=== PATIENT | female | born 1950 | race Caucasian/White ===

== ENCOUNTER 2019-10-25 14:29 | Outpatient (RCR) | payer MEDICARE, OTHER, SELFPAY ==
[2019-10-25 14:44] VITALS: BP 143/77; PULSE 87; RESP 18; BMI 29.2
[2019-10-25 17:12] LABS: Hematocrit 42.9 % (37-47); Hemoglobin 13.4 g/dL (12.0-15.0); Mean Corp Hgb Conc 31.2 g/dL (32-36); Mean Corpuscular Hgb 29.5 pg (27.0-32.0); Mean Corpuscular Volume 94.3 fL (81-99); Mean Platelet Vol. 8.8 fl (6.2-12.0); Platelet Count 329 K/mm3 (150-450); RBC Distribution Width CV 12.9 % (11.6-14.6); RBC Distribution Width SD 44.7 fl (35.1-43.9); Red Blood Count 4.55 M/mm3 (4.2-5.4); White Blood Count 8.5 K/mm3 (4.4-11.0)
[2019-10-25 18:17] LABS: Anion Gap 5 (5-15); BUN 13 mg/dL (7-18); Calcium,Total 9.5 mg/dL (8.5-10.1); Chloride 106 mmol/L (98-107); Creatinine, Serum 0.81 mg/dL (0.55-1.02); EST Glomerular Filtration Rate 74 mL/min (>60); Est Glom Filt Rate - Afr Amer 90 mL/min (>60); Estimated Creatinine Clearance 63.86 ml/min; Glucose 95 mg/dL (74-106); Potassium 3.7 mmol/L (3.5-5.1); Prealbumin 19.8 mg/dL (20.0-40.0); Sodium Level 142 mmol/L (136-145)
[2019-10-25 19:51] LABS: M R Staph aureus DNA By PCR Negative (Negative); Probe Check PASS; Specimen Processing Control PASS; Staph aureus DNA By PCR NEGATIVE (Negative)
--- NOTE | 2019-10-25 22:08 | PCM.WC.HP ---
(1) Ulcer of left lower extremity with fat layer exposed Status: Chronic Code(s): L97.922 - Non-pressure chronic ulcer of unspecified part of left lower leg with fat layer exposed (2) Delayed wound healing Status: Chronic Code(s): T14.8XXD - Other injury of unspecified body region, subsequent encounter (3) Venous insufficiency Status: Suspected Code(s): I87.2 - Venous insufficiency (chronic) (peripheral) (4) Other specified peripheral vascular diseases Status: Suspected Code(s): I73.89 - Other specified peripheral vascular diseases (5) Left leg pain Status: Chronic Code(s): M79.605 - Pain in left leg (6) Cellulitis of left leg Status: Acute Code(s): L03.116 - Cellulitis of left lower limb (7) Leg edema, left Status: Chronic Code(s): R60.0 - Localized edema History of Present Illness Date of Service: 10/25/19 Chief Complaint: Left leg ulcer History of Wound: This 69-year-old female with significant past medical history of polio with several medical sequela sustained a left leg ulcer that dates back to 2015. She has had periods of intermittent healing and this has returned on numerous occasions. This last ulcer recurrence dates back to this summer approximately May 2018. She denies trauma. She admits she is chronic swelling and pain with leg elevation. She denies consistent leg claudication symptoms however admits she does not walk a regular standard amount. She was recently seen by another physician for potential cellulitis. She was started on ciprofloxacin and redness and edema has reduced. She denies fever, chill, nausea, vomiting. She relates she has resolved odor. Her ulcer is very painful and is rated as moderate. She denies having a significant past medical history of diabetes. Past Medical History Past Medical History: Chronic Problems Ulcer of left lower extremity with fat layer exposed (Chronic) Delayed wound healing (Chronic) Left leg pain (Chronic) Leg edema, left (Chronic) Surgical History: - - polio Lives: With Family Smoking Status: Never smoker Review of Systems Constitutional: Denies: Chills, Fever HEENT: Denies: Sore Throat Cardiovascular: Reports: - - Leg edema. Denies: Chest Pain, Claudication, Orthopnea Respiratory: Denies: Cough Gastrointestinal: Denies: Nausea, Vomiting Musculoskeletal: Reports: Leg Pain. Denies: Joint Tenderness Skin: Reports: Skin Changes, Wounds Neurological: Reports: Incoordination, - - Weakness and use of wheelchair Psychiatric: Reports: Anxiety - Physical Exam Vital Signs Pulse Resp BP 87 18 143/77 H 10/25/19 14:44 10/25/19 14:44 10/25/19 14:44 General: Alert, Oriented x3, Cooperative, No apparent distress HEENT: Atraumatic Extremities: No cyanosis, Capillary Refill Less than 3 Seconds, No Calf Tenderness - Negative Kishor and Hughes signs bilateral, Diminished Peripheral Pulses, Edema - Nonpitting bilateral lower extremities Skin: Ulcer/ Wound - There is no purulence on expression to the left leg. There is no erythema. There is peter-ulcer inflammation, moist and macerated tissue and fibrous base with scant granulation tissue. There is no exposed bone or tendon or fascia. Her skin in general is atrophic, hairless, and hyperpigmented Wound Measurements and Assessment WC - Nurse 1 - General Ulcer Measurement Start: 10/25/19 14:44 Freq: Status: Active Protocol: Activity Type Activity Date Activity User E-Sign Co-Sign Detail Recorded Client Recorded Date Recorded By Document 10/25/19 14:44 [id number] 10/25/19 15:13 BS 10/25/19 14:44 Wound Center Nurse 1 [Ulcer Assessment] #1 LLE -Combined with other wound No -Current Size (cm) - Length 12.5 -Current Size (cm) - Width 11.5 -Current Size (cm) - Depth 0.4 -Total Square Cm 143.75 -Date of Last Picture (Recall this 10/25/19 field) -Photo Taken Yes -Tunneling No -Classification - Thickness Full Thickness without Exposed Support Structure -Exudate Amt Medium -Exudate Type Purulent -Granulation Quality [place] -Texture (Peter-wound Skin Appearance) Assessed, Localized Edema -Moisture (Peter-wound Skin Appearance Assessed, ) Maceration, Weeping -Temperature (Peter-wound Skin Cool/Cold Appearance) -Tenderness on Palpation (Peter-wound No Skin Appearance) -Ulcer Cleansing Rinsed/ Irrigated with Saline -Foul Odor after Cleansing No -Anesthetic Used 4% Lidocaine Solution [Edema Assessment] -Lower Limb Edema Present Yes -Point of measurement (cm from the 32.5 medial instep) -Point of Measurement (cm from the 24.5 medial instep) -Point of measurement (cm from the 36.5 medial instep) -Point of Measurement (cm from the 23 medial instep) WC - Nurse 2 - General Ulcer CM Notes Start: 10/25/19 14:44 Freq: Status: Active Protocol: Activity Type Activity Date Activity User E-Sign Co-Sign Detail Recorded Client Recorded Date Recorded By Document 10/25/19 15:32 [id number] 10/25/19 15:45 10/25/19 15:32 Wound Center Nurse 2 [Procedure/Treatment] #1 LLE -Time 15:32 -Correct Patient Yes -Correct Side, Site, Position Yes -Correct Procedure Yes -Procedure Performed Yes -Type of Procedure Debridement -Clinical Debridement Subcutaneous -Post Debridement Size (cm) - Length 2.8 -Post Debridement Size (cm) - Width 1.8 -Post Debridement Size (cm) - Depth 0.3 -Total Square Cm 5.04 -Wound/Ulcer Outcome Not Healed -Ulcer Cleansing Rinsed/ Irrigated with Saline -Foul Odor after Cleansing No -Bioengineered Tissue No -Bleeding Controlled with Pressure -Offloading No -Treatment Response Procedure Tolerated Well [See Physician Procedure note for Specifics] Pain Scale: 0-10 Numeric [Pain] -Is Patient Pain Free? Yes Musculoskeletal: No Tenderness to Palpation of Joints or Extremities, Muscle Wasting, - - Compartments are soft to palpate bilateral lower extremities. Active range of motion ankles noted Neurological: Sensory exam intact to light touch and pain Psych/Mental Status: Normal Affect, Appropriate, Anxious Debridement Note Post-Debridement Measurements/Treatment WC - Nurse 2 - General Ulcer CM Notes Start: 10/25/19 14:44 Freq: Status: Active Protocol: Activity Type Activity Date Activity User E-Sign Co-Sign Detail Recorded Client Recorded Date Recorded By Document 10/25/19 15:32 [id number] 10/25/19 15:45 10/25/19 15:32 Wound Center Nurse 2 #1 LLE -Time 15:32 -Correct Patient Yes -Correct Side, Site, Position Yes -Correct Procedure Yes -Procedure Performed Yes -Type of Procedure Debridement -Clinical Debridement Subcutaneous -Post Debridement Size (cm) - Length 2.8 -Post Debridement Size (cm) - Width 1.8 -Post Debridement Size (cm) - Depth 0.3 -Total Square Cm 5.04 -Wound/Ulcer Outcome Not Healed -Ulcer Cleansing Rinsed/ Irrigated with Saline -Foul Odor after Cleansing No -Bioengineered Tissue No -Bleeding Controlled with Pressure -Offloading No -Treatment Response Procedure Tolerated Well Pain Scale: 0-10 Numeric Is Patient Pain Free? Yes Wound debrided: leg Laterality: Left Type of Debridement: Excisional debridement Anesthesia Used: 5% Lidocaine Gel Depth: in the subcutaneous layer Percentage of wound debrided: 100 Instrument Used: #15 blade Tissue Removed: fibrous, devitalized subcutaneous, biofilm, slough Severity: Fat Layer Exposed Amount of bleeding with debridement: Mild Bleeding Controlled with: Pressure Patient tolerated procedure well Assessment/Plan Assessment: Left leg ulcer with fat layer exposed and adjacent maceration. Cellulitis left leg appears to be improving per patient subjective report. Leg edema. Venous insufficiency suspected. Peripheral vascular disease suspected. Delayed healing. Malnutrition suspected Plan: I reviewed and discussed her case today. Debridement was performed as noted in the clinical panel. I recommended changing the dressing daily with hydrogel. This was applied with a secondary dressing as well. She is advised to wash the leg daily with antimicrobial soap. An updated wound culture was obtained and I will call her with results. She is advised to complete her course of ciprofloxacin which is scheduled to run out on Wednesday. I will call her prior to that time to inform her if a refill is necessary. She does have this refill available if needed. This was prescribed by her primary care physician. She was reassured no systemic signs of illness are noted. I recommend she proceed with work-up for both arterial and venous disease. Venous reflux evaluation test was ordered. She was advised to avoid idle sitting and standing and to elevate the limb to control edema. If she has continued pain particularly with leg elevation, I recommend she intermittently dangles the leg as well. I also recommend she proceeds with noninvasive arterial study. Very light compression of a Tubigrip was provided today for edema management and stronger compression will be considered after review her noninvasive vascular study results. I also recommend updated labs including CBC, CMP, and prealbumin to assess her current medical status. An order was provided today. To proceed with a proper control diet and nutrition supplementation to optimize healing. I answered all of her questions and explained the etiology of ulcer causes and the comprehensive wound healing plan. I recommend she returns on a weekly basis. The center will be closed several days next week due to holiday therefore she will return in 2 weeks. To call sooner if she has any questions or concerns.
== END 2019-11-07 23:59 ==
LOC: WC 14:29
PROVIDERS: Referring Provider Podiatrist; Visit Provider Podiatrist
DX: I73.89 Other specified peripheral vascular diseases (principal); I87.2 Venous insufficiency (chronic) (peripheral); L97.822 Non-pressure chronic ulcer of other part of left lower leg with fat layer exposed; M79.605 Pain in left leg; R60.0 Localized edema; Z86.12 Personal history of poliomyelitis
CPT/HCPCS: 11042; 36415; 80048; 84134; 85027; 87070; 87075; 87077; 87176; 87186; 87205; 87640; 99203; G0463

== ENCOUNTER 2019-11-22 16:15 | Outpatient (RCR) | payer MEDICARE, OTHER, SELFPAY ==
[2019-11-08 01:08] VITALS: BP 143/77; PULSE 87; RESP 18
[2019-11-10 13:12] VITALS: TEMP 37.7; BMI 29.2
--- NOTE | 2019-11-10 14:36 | PN.PCM_ITS ---
(1) Colonization status Status: Chronic Current Visit: Yes Code(s): Z22.9 - Carrier of infectious disease, unspecified (2) Ulcer of left lower extremity with fat layer exposed Status: Chronic Current Visit: Yes Code(s): L97.922 - Non-pressure chronic ulcer of unspecified part of left lower leg with fat layer exposed (3) Delayed wound healing Status: Chronic Current Visit: Yes Code(s): T14.8XXD - Other injury of unspecified body region, subsequent encounter (4) Venous insufficiency Status: Suspected Current Visit: Yes Code(s): I87.2 - Venous insufficiency (chronic) (peripheral) (5) Other specified peripheral vascular diseases Status: Suspected Current Visit: Yes Code(s): I73.89 - Other specified peripheral vascular diseases (6) Left leg pain Status: Chronic Current Visit: Yes Code(s): M79.605 - Pain in left leg Type of Wound Date of Service: 11/10/19 Chief Complaint: Left leg ulcer History of Wound: This 69-year-old female with significant past medical history of polio with several medical sequela sustained a left leg ulcer that dates back to 2016. She has had periods of intermittent healing and this has returned on numerous occasions. She relates continued ulcer pain and drainage. She has only wash this ulcer site with home soap. She denies completing the recommended artery or vein studies so far. Progress of Wound: stable - Physical Exam Vital Signs Temp Pulse Resp BP 99.8 F H 87 18 143/77 H 11/10/19 13:12 11/08/19 01:08 11/08/19 01:08 11/08/19 01:08 General: Alert, Oriented x3, Cooperative, No apparent distress Extremities: Capillary Refill Less than 3 Seconds, No Calf Tenderness - Negative Hughes and Kishor, Diminished Peripheral Pulses, Edema, Tenderness - Pain with ulcer manipulation. No bogginess or fluctuance Skin: Ulcer/ Wound - Fibrous tissue is decreased and there is sparse granulation tissue. Decreased maceration noted there is a large peripheral area of fibrous tissue with interspersed epithelialization. The peripheral skin is hairless, atrophic, and hypopigmented. There is no sb erythema. Wound Measurements and Assessment WC - Nurse 1 - General Ulcer Measurement Start: 11/10/19 13:12 Freq: Status: Active Protocol: Activity Type Activity Date Activity User E-Sign Co-Sign Detail Recorded Client Recorded Date Recorded By Document 11/10/19 13:12 [facility] [id number] 11/10/19 13:24 [facility] 11/10/19 13:12 Wound Center Nurse 1 [Ulcer Assessment] #1 LLE -Combined with other wound No -Current Size (cm) - Length 12.4 -Current Size (cm) - Width 11.2 -Current Size (cm) - Depth 0.2 -Total Square Cm 138.88 -Photo Taken No -Epithelialization None Present -Tunneling No -Undermining/Tunneling No -Circular Undermining No -Exudate Amt Small -Wound Margin Flat & Intact -Granulation Amt Small (1-33%) -Granulation Quality Red -Slough/Fibrin Yes -Necrosis Amt Large (67-100%) -Necrotic Tissue Type Adherent Slough -Texture (Susana-wound Skin Appearance) Assessed, Scarring -Moisture (Susana-wound Skin Appearance Assessed ) -Color (Susana-wound Skin Appearance) Assessed, Erythema -Temperature (Susana-wound Skin No Abnormality Appearance) (Pt Warm) -Tenderness on Palpation (Susana-wound Yes Skin Appearance) -Ulcer Cleansing soapy water -Foul Odor after Cleansing No -Anesthetic Used 4% Lidocaine Solution [Edema Assessment] -Lower Limb Edema Present Yes -Left Calf (cm) 35.1 -Left Ankle (cm) 21 WC - Nurse 2 - General Ulcer CM Notes Start: 11/10/19 13:12 Freq: Status: Active Protocol: Activity Type Activity Date Activity User E-Sign Co-Sign Detail Recorded Client Recorded Date Recorded By Document 11/10/19 13:46 [id number] 11/10/19 13:47 11/10/19 13:46 Wound Center Nurse 2 [Procedure/Treatment] #1 LLE -Time 13:46 -Correct Patient Yes -Correct Side, Site, Position Yes -Correct Procedure Yes -Procedure Performed Yes -Type of Procedure Debridement -Clinical Debridement Subcutaneous -Post Debridement Size (cm) - Length 12.5 -Post Debridement Size (cm) - Width 11.2 -Post Debridement Size (cm) - Depth 0.2 -Total Square Cm 140.00 -Wound/Ulcer Outcome Not Healed -Ulcer Cleansing Rinsed/ Irrigated with Saline -Foul Odor after Cleansing No -Bioengineered Tissue No -Bleeding Controlled with Pressure -Offloading No -Treatment Response Procedure Tolerated Well [See Physician Procedure note for Specifics] Pain Scale: 0-10 Numeric [Pain] -Is Patient Pain Free? Yes Musculoskeletal: No Tenderness to Palpation of Joints or Extremities, Muscle Wasting Neurological: Sensory exam intact to light touch and pain - Hypersensitive to touch Psych/Mental Status: Normal Affect, Appropriate Debridement Note Post-Debridement Measurements/Treatment WC - Nurse 2 - General Ulcer CM Notes Start: 11/10/19 13:12 Freq: Status: Active Protocol: Activity Type Activity Date Activity User E-Sign Co-Sign Detail Recorded Client Recorded Date Recorded By Document 11/10/19 13:46 [id number] 11/10/19 13:47 11/10/19 13:46 Wound Center Nurse 2 #1 LLE -Time 13:46 -Correct Patient Yes -Correct Side, Site, Position Yes -Correct Procedure Yes -Procedure Performed Yes -Type of Procedure Debridement -Clinical Debridement Subcutaneous -Post Debridement Size (cm) - Length 12.5 -Post Debridement Size (cm) - Width 11.2 -Post Debridement Size (cm) - Depth 0.2 -Total Square Cm 140.00 -Wound/Ulcer Outcome Not Healed -Ulcer Cleansing Rinsed/ Irrigated with Saline -Foul Odor after Cleansing No -Bioengineered Tissue No -Bleeding Controlled with Pressure -Offloading No -Treatment Response Procedure Tolerated Well Pain Scale: 0-10 Numeric Is Patient Pain Free? Yes Wound debrided: anterior leg Laterality: Left Type of Debridement: Excisional debridement Anesthesia Used: 5% Lidocaine Gel Depth: in the subcutaneous layer Percentage of wound debrided: 100 Instrument Used: #15 blade Tissue Removed: fibrous, devitalized subcutaneous, biofilm, slough Severity: Fat Layer Exposed Amount of bleeding with debridement: Mild Bleeding Controlled with: Pressure Patient tolerated procedure well Assessment/Plan Active Problems Ulcer of left lower extremity with fat layer exposed (Chronic) Delayed wound healing (Chronic) Left leg pain (Chronic) Colonization status (Chronic) Assessment: Left leg ulcer with fat layer exposed and adjacent maceration. Bacterial contamination. Leg edema. Venous insufficiency suspected. Peripheral vascular disease suspected. Delayed healing. Malnutrition suspected Plan: I reviewed and discussed her case today. Debridement was performed as noted in the clinical panel. I recommended changing the dressing daily with hydrogel and adaptic. This was applied with a secondary dressing as well. She is advised to wash the leg daily with antimicrobial soap including medical grade hibiblens. An updated wound culture was obtained and she demonstrates growth of bacteria that is not a part of the normal. I do not recommend antibiotic at this time and wants addressed this locally with antimicrobial soap. She monitor for bacterial or systemic signs of illness progression. She has completed her course of ciprofloxacin. She was reassured no systemic signs of illness are noted. I recommend she proceed with work-up for both arterial and venous disease. Venous reflux evaluation test was ordered. She was advised to avoid idle sitting and standing and to elevate the limb to control edema. If she has continued pain particularly with leg elevation, I recommend she intermittently dangles the leg as well. I also recommend she proceeds with noninvasive arterial study. Very light compression of a Tubigrip was provided today for edema management and stronger compression will be considered after review her noninvasive vascular study results. I also recommend updated labs including CBC, CMP, and prealbumin to assess her current medical status. An order was provided previously and she was advised to obtain. To proceed with a proper control diet and nutrition supplementation to optimize healing. I answered all of her questions and explained the etiology of ulcer causes and the comprehensive wound healing plan. I recommend she returns on a weekly basis. I answered her questions.
--- NOTE | 2019-11-15 13:06 | ART_ITS ---
Reason For Study: ULCER Procedure A bilateral lower extremity continuous wave Doppler with analog waveform analysis,segmental pressures,and ankle brachial indexes without exercise. Left Segmental Pressures Left brachial= 140mmHg. Left thigh = 90mmHg. Left calf = 93mmHg. Left posterior tibial artery = 72mmHg. Left dorsalis pedis artery = 64mmHg. Left digit = 60 mmHg. The left dorsalis pedis waveforms are monophasic. The left posterior tibial artery waveforms are monophasic. Right Segmental Pressures Right brachial= 134mmHg. Right thigh = 83mmHg. Right calf = 80mmHg. Right posterior tibial artery = 71mmHg. Right dorsalis pedis artery = 82mmHg. Right digit = 60 mmHg. The right dorsalis pedis waveforms are monophasic. The right posterior tibial artery waveforms are monophasic. Indices The right ankle brachial index by the dorsalis pedis is .59. The right ankle brachial index by the posterior tibial artery is .51. The right digital-brachial index is .43. The left ankle brachial index by the dorsalis pedis is .46. The left ankle brachial index by the posterior tibial artery is .51. The left digital-brachial index is .43. Interpretation Summary Monophasic Doppler waveforms are noted at ankle level bilaterally. Pulse-volume recording waveform amplitudes are diminished at calf, ankle, and digital level on the right, and digital level on the left. Resting ankle-brachial indices are moderately diminished bilaterally. Digital-brachial indices are moderately diminished bilaterally. 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 Ordering Physician: Abby Cooper Referring Physician: Abby Cooper Performed By: ANOOP DOTY RDCS
--- NOTE | 2019-11-15 13:06 | VDLE_ITS ---
Reason For Study: ulcer RIGHT LEFT CFV is compressible, spontaneous, phasic, CFV is compressible, spontaneous, phasic, competent and demonstrates normal competent, and demonstrates normal augmentation. augmentation. FV is compressible, spontaneous, phasic, FV is compressible, spontaneous, phasic, competent and demonstrates normal competent and demonstrates normal augmentation. augmentation. POP V is compressible, spontaneous, phasic, POP V is compressible, spontaneous, phasic, competent and demonstrates normal competent and demonstrates normal augmentation. augmentation. T/P Trunk is compressible. T/P Trunk is compressible. PTV is compressible. PTV is compressible. RT PerV is compressible. LT PerV is compressible. Rt SSV is too small to evaluate. Left SSV is too small to evaluate. SFJ is competent and measures .75 x .87 cm. SFJ is competent and measures 1.0 x 1.1 cm. GSV above knee is competent. GSV is competent throughout. GSV at knee measures .3 x .35 cm. GSV below knee is INCOMPETENT for greater than 0.5 seconds. Procedure Exam performed in department. 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 A preliminary report was called and/or faxed to [facility]. Interpretation Summary Deep veins of the lower extremities are bilaterally patent and compressible segmentally. There is no evidence of deep vein thrombosis on either side. Valvular competence appears intact within the proximal deep venous systems bilaterally. The great saphenous veins appear bilaterally patent and compressible segmentally. Sapheno-femoral junctions are bilaterally competent . The right great saphenous vein appears competent above the knee. The right great saphenous vein appears incompetent below the knee. The left great saphenous vein appears segmentally competent. Small saphenous veins are too small to assess bilaterally. Ordering Physician: Abby Cooper Referring Physician: Abby Cooper Performed By: Dee France, YENICS, RVT
[2019-11-15 15:27] VITALS: BP 139/84; PULSE 88; RESP 18; TEMP 37.4; BMI 29.2
--- NOTE | 2019-11-15 16:25 | PCM.WC.PN ---
(1) Colonization status Status: Chronic Current Visit: Yes Code(s): Z22.9 - Carrier of infectious disease, unspecified (2) Ulcer of left lower extremity with fat layer exposed Status: Chronic Current Visit: Yes Code(s): L97.922 - Non-pressure chronic ulcer of unspecified part of left lower leg with fat layer exposed (3) Delayed wound healing Status: Chronic Current Visit: Yes Code(s): T14.8XXD - Other injury of unspecified body region, subsequent encounter (4) Venous insufficiency Status: Chronic Current Visit: Yes Code(s): I87.2 - Venous insufficiency (chronic) (peripheral) Comment: left Greater saphenous vein (5) Other specified peripheral vascular diseases Status: Chronic Current Visit: Yes Code(s): I73.89 - Other specified peripheral vascular diseases Comment: bilateral lower extremity (6) Left leg pain Status: Chronic Current Visit: Yes Code(s): M79.605 - Pain in left leg Type of Wound Date of Service: 11/15/19 Chief Complaint: Left leg ulcer History of Wound: This 69-year-old female with significant past medical history of polio with several medical sequela sustained a left leg ulcer that dates back to 2016. She has had periods of intermittent healing and this has returned on numerous occasions. She relates continued ulcer pain and drainage. She has only wash this ulcer site with hibiclens soap as advised. She had her arterial and venous studies performed today and would like to review the results. She has significant pain to her leg this is reported as a 5 out of 10 on a regular basis and even more now after debridement. Dangling her leg does temporarily get rid of the pain. She does have ongoing fluctuating swelling that is relieved by periodic elevation of the leg. She asked if she can discontinue her compression garments due to severe pain. She is with her sister today. Progress of Wound: stable - Physical Exam Vital Signs Temp Pulse Resp BP 99.3 F H 88 18 139/84 H 11/15/19 15:27 11/15/19 15:27 11/15/19 15:27 11/15/19 15:27 General: Alert, Cooperative HEENT: Atraumatic Extremities: No cyanosis, Capillary Refill Less than 3 Seconds, No Calf Tenderness - Negative Hughes sign bilateral, Diminished Peripheral Pulses, Edema Skin: Ulcer/ Wound - No purulence, erythema, streaking, odor, infection. No deep bone or muscle. There is some deeper tendon sheath not exposed in the wound bed. There is decreased maceration noted and there is continued fibrous tissue noted as well. Her skin in general is hairless, atrophic, and hyperpigmented Wound Measurements and Assessment WC - Nurse 1 - General Ulcer Measurement Start: 11/10/19 13:12 Freq: Status: Active Protocol: Activity Type Activity Date Activity User E-Sign Co-Sign Detail Recorded Client Recorded Date Recorded By Document 11/15/19 15:27 RB [id number] 11/15/19 15:34 RB 11/15/19 15:27 Wound Center Nurse 1 [Ulcer Assessment] #1 LLE -Combined with other wound No -Current Size (cm) - Length 11 -Current Size (cm) - Width 6.5 -Current Size (cm) - Depth 0.2 -Total Square Cm 71.5 -Epithelialization None Present -Tunneling No -Undermining/Tunneling No -Circular Undermining No -Exudate Amt Medium -Exudate Type Serosanguineous -Wound Margin Flat & Intact -Granulation Amt Medium (34-66%) -Granulation Quality [place] -Slough/Fibrin Yes -Necrosis Amt Small (1-33%) -Necrotic Tissue Type Adherent Slough -Structure Exposed N/A -Texture (Peter-wound Skin Appearance) Assessed, Scarring -Moisture (Peter-wound Skin Appearance Assessed ) -Color (Peter-wound Skin Appearance) Assessed -Temperature (Peter-wound Skin No Abnormality Appearance) (Pt Warm) -Ulcer Cleansing Rinsed/ Irrigated with Saline -Foul Odor after Cleansing No -Anesthetic Used 4% Lidocaine Solution [Edema Assessment] -Lower Limb Edema Present Yes -Left Calf (cm) 34.5 -Left Ankle (cm) 21.5 WC - Nurse 2 - General Ulcer CM Notes Start: 11/10/19 13:12 Freq: Status: Active Protocol: Activity Type Activity Date Activity User E-Sign Co-Sign Detail Recorded Client Recorded Date Recorded By Document 11/15/19 15:43 FELISHA [id number] 11/15/19 15:47 FELISHA 11/15/19 15:43 Wound Center Nurse 2 [Procedure/Treatment] #1 LLE -Time 15:46 -Correct Patient Yes -Correct Side, Site, Position Yes -Correct Procedure Yes -Procedure Performed Yes -Type of Procedure Debridement -Clinical Debridement Subcutaneous -Post Debridement Size (cm) - Length 11 -Post Debridement Size (cm) - Width 6.6 -Post Debridement Size (cm) - Depth 0.2 -Total Square Cm 72.6 -Wound/Ulcer Outcome Not Healed -Ulcer Cleansing Rinsed/ Irrigated with Saline -Foul Odor after Cleansing No -Bioengineered Tissue No -Bleeding Controlled with Pressure -Offloading No -Treatment Response Procedure Tolerated Well [See Physician Procedure note for Specifics] Pain Scale: 0-10 Numeric [Pain] -Is Patient Pain Free? Yes Musculoskeletal: No Tenderness to Palpation of Joints or Extremities, Muscle Wasting, - - Compartment soft to palpate left lower extremity Neurological: Sensory exam intact to light touch and pain Psych/Mental Status: Normal Affect, Appropriate Debridement Note Post-Debridement Measurements/Treatment WC - Nurse 2 - General Ulcer CM Notes Start: 11/10/19 13:12 Freq: Status: Active Protocol: Activity Type Activity Date Activity User E-Sign Co-Sign Detail Recorded Client Recorded Date Recorded By Document 11/10/19 13:46 [id number] 11/10/19 13:47 Document 11/15/19 15:43 [id number] 11/15/19 15:47 11/10/19 11/15/19 13:46 15:43 Wound Center Nurse 2 #1 LLE -Time 13:46 15:46 -Correct Patient Yes Yes -Correct Side, Site, Position Yes Yes -Correct Procedure Yes Yes -Procedure Performed Yes Yes -Type of Procedure Debridement Debridement -Clinical Debridement Subcutaneous Subcutaneous -Post Debridement Size (cm) - Length 12.5 11 -Post Debridement Size (cm) - Width 11.2 6.6 -Post Debridement Size (cm) - Depth 0.2 0.2 -Total Square Cm 140.00 72.6 -Wound/Ulcer Outcome Not Healed Not Healed -Ulcer Cleansing Rinsed/ Rinsed/ Irrigated with Irrigated with Saline Saline -Foul Odor after Cleansing No No -Bioengineered Tissue No No -Bleeding Controlled with Pressure Pressure -Offloading No No -Treatment Response Procedure Procedure Tolerated Well Tolerated Well Pain Scale: 0-10 Numeric Is Patient Pain Free? Yes Yes Wound debrided: leg anterior Laterality: Left Type of Debridement: Excisional debridement Anesthesia Used: 5% Lidocaine Gel Depth: in the subcutaneous layer Percentage of wound debrided: 100 Instrument Used: #15 blade Tissue Removed: fibrous, devitalized subcutaneous, biofilm, slough Severity: Fat Layer Exposed Amount of bleeding with debridement: Mild Bleeding Controlled with: Pressure Patient tolerated procedure well Assessment/Plan Active Problems Ulcer of left lower extremity with fat layer exposed (Chronic) Delayed wound healing (Chronic) Venous insufficiency (Chronic) left Greater saphenous vein Other specified peripheral vascular diseases (Chronic) bilateral lower extremity Left leg pain (Chronic) Colonization status (Chronic) Assessment: Left leg ulcer with fat layer exposed and adjacent maceration. Bacterial contamination is resolving. Leg edema. Venous insufficiency. Peripheral vascular disease. Delayed healing. Malnutrition suspected Plan: I reviewed and discussed her case today. Debridement was performed as noted in the clinical panel. I recommended changing the dressing daily with hydrogel and adaptic. This was applied with a secondary dressing as well. She is advised to wash the leg daily with antimicrobial soap including medical grade hibiblens. She is doing well with this so far. An updated wound culture was obtained and she demonstrates growth of bacteria that is not a part of the normal. I do not recommend antibiotic at this time and wants addressed this locally with antimicrobial soap. She monitor for bacterial or systemic signs of illness progression. She has completed her course of ciprofloxacin. She was reassured no systemic signs of illness are noted. I recommend she proceed with work-up for both arterial and venous disease. Venous reflux evaluation test was ordered. She was advised to avoid idle sitting and standing and to elevate the limb to control edema. If she has continued pain particularly with leg elevation, I recommend she intermittently dangles the leg as well. I also recommend she proceeds with noninvasive arterial study. Very light compression of a Tubigrip was provided today for edema management and stronger compression will be considered after review her noninvasive vascular study results. It appears she does have some mild form of venous insufficiency after reviewing her venous Doppler exam. She does also have significant bilateral lower extremity monophasic waveforms with ABIs of around 0.5 bilaterally. I recommend a vascular specialist referral to Dr. Morel in this will be provided today. I also recommend updated labs including CBC, CMP, and prealbumin to assess her current medical status. An order was provided previously and she was advised to obtain. To proceed with a proper control diet and nutrition supplementation to optimize healing. I answered all of her questions and explained the etiology of ulcer causes and the comprehensive wound healing plan. Her pain was additionally addressed by providing a prescription for topical 4% lidocaine cream for application peter-ulcer site and not directly in the ulcer site after dressing changes for this is when her pain is worse. I recommend she returns on a weekly basis. I answered her questions. . 2019 quality measures reviewed as the following: Reviewed today-pain level was confirmed in follow-up plan was documented, medication and allergy reconciliation was performed. Reviewed 11/15/2019-pneumonia vaccination was confirmed, influenza immunization was confirmed for this current season in July 2019, advanced care plan was confirmed with living will, she is a current tobacco non user, her blood pressure is elevated over 120/80 and I recommend she follows up with her primary care physician for medical management of this. Diet and exercise benefits were also discussed for educational purposes to optimize her wound healing and medical management.
[2019-11-22 16:22] VITALS: RESP 16; TEMP 37.4; BMI 29.2
--- NOTE | 2019-11-22 16:46 | PCM.WC.PN ---
(1) Colonization status Status: Chronic Code(s): Z22.9 - Carrier of infectious disease, unspecified (2) Ulcer of left lower extremity with fat layer exposed Status: Chronic Code(s): L97.922 - Non-pressure chronic ulcer of unspecified part of left lower leg with fat layer exposed (3) Delayed wound healing Status: Chronic Code(s): T14.8XXD - Other injury of unspecified body region, subsequent encounter (4) Venous insufficiency Status: Chronic Code(s): I87.2 - Venous insufficiency (chronic) (peripheral) Comment: left Greater saphenous vein (5) Other specified peripheral vascular diseases Status: Chronic Code(s): I73.89 - Other specified peripheral vascular diseases Comment: bilateral lower extremity (6) Left leg pain Status: Chronic Code(s): M79.605 - Pain in left leg Type of Wound Date of Service: 11/22/19 Chief Complaint: Left leg ulcer History of Wound: This 69-year-old female with significant past medical history of polio with several medical sequela sustained a left leg ulcer that dates back to 2016. She has had periods of intermittent healing and this has returned on numerous occasions. She relates continued ulcer pain and drainage. She has only wash this ulcer site with hibiclens soap as advised. She had her arterial and venous studies performed today and would like to review the results. She has significant pain to her leg this is reported as a 5 out of 10 on a regular basis and even more now after debridement. Dangling her leg does temporarily get rid of the pain. She does have ongoing fluctuating swelling that is relieved by periodic elevation of the leg. She asked if she can discontinue her compression garments due to severe pain. She is with her sister today. Progress of Wound: stable - Physical Exam Vital Signs Temp Pulse Resp BP 99.3 F H 88 16 139/84 H 11/22/19 16:22 11/15/19 15:27 11/22/19 16:22 11/15/19 15:27 General: Alert, Oriented x3, Cooperative, No apparent distress Extremities: Capillary Refill Less than 3 Seconds, No Calf Tenderness, Diminished Peripheral Pulses, Edema, Tenderness - ulcer palpation Skin: Ulcer/ Wound - no purulence, no streaking, no odor, no sb necrosis leg. skin is atrophic, tight, and hairless. wound bed is fibrous and devitalized. the limb appears dysvascular Wound Measurements and Assessment WC - Nurse 1 - General Ulcer Measurement Start: 11/10/19 13:12 Freq: Status: Active Protocol: Activity Type Activity Date Activity User E-Sign Co-Sign Detail Recorded Client Recorded Date Recorded By Document 11/22/19 16:22 [facility] [id number] 11/22/19 16:31 [facility] 11/22/19 16:22 Wound Center Nurse 1 [Ulcer Assessment] #1 LLE -Combined with other wound No -Current Size (cm) - Length 13.1 -Current Size (cm) - Width 11.5 -Current Size (cm) - Depth 0.3 -Total Square Cm 150.65 -Photo Taken No -Epithelialization None Present -Tunneling No -Undermining/Tunneling No -Circular Undermining No -Exudate Amt Medium -Exudate Type Serosanguineous -Wound Margin Distinct, Outline Attached -Granulation Amt None Present (0 %) -Slough/Fibrin Yes -Necrosis Amt Large (67-100%) -Necrotic Tissue Type Adherent Slough -Texture (Susana-wound Skin Appearance) Assessed, Scarring -Moisture (Susana-wound Skin Appearance Assessed ) -Color (Susana-wound Skin Appearance) Assessed, Erythema -Temperature (Susana-wound Skin No Abnormality Appearance) (Pt Warm) -Tenderness on Palpation (Susana-wound Yes Skin Appearance) -Ulcer Cleansing soapy water -Foul Odor after Cleansing No -Anesthetic Used 4% Lidocaine Solution [Edema Assessment] -Lower Limb Edema Present Yes -Left Calf (cm) 37.1 -Left Ankle (cm) 23.7 - Nurse 2 - General Ulcer CM Notes Start: 11/10/19 13:12 Freq: Status: Active Protocol: Activity Type Activity Date Activity User E-Sign Co-Sign Detail Recorded Client Recorded Date Recorded By Document 11/22/19 16:39 [id number] 11/22/19 16:41 11/22/19 16:39 Wound Center Nurse 2 [Procedure/Treatment] #1 LLE -Time 16:39 -Correct Patient Yes -Correct Side, Site, Position Yes -Correct Procedure Yes -Procedure Performed Yes -Type of Procedure Debridement -Clinical Debridement Selective -Post Debridement Size (cm) - Length 13.1 -Post Debridement Size (cm) - Width 11.5 -Post Debridement Size (cm) - Depth 0.3 -Total Square Cm 150.65 -Wound/Ulcer Outcome Not Healed -Ulcer Cleansing Rinsed/ Irrigated with Saline -Foul Odor after Cleansing No -Bioengineered Tissue No -Bleeding Controlled with Pressure -Offloading No -Treatment Response Procedure Tolerated Well [See Physician Procedure note for Specifics] Pain Scale: 0-10 Numeric [Pain] -Is Patient Pain Free? Yes Musculoskeletal: No Tenderness to Palpation of Joints or Extremities, Muscle Wasting Neurological: Sensory exam intact to light touch and pain Psych/Mental Status: Normal Affect, Appropriate Debridement Note Post-Debridement Measurements/Treatment WC - Nurse 2 - General Ulcer CM Notes Start: 11/10/19 13:12 Freq: Status: Active Protocol: Activity Type Activity Date Activity User E-Sign Co-Sign Detail Recorded Client Recorded Date Recorded By Document 11/10/19 13:46 [id number] 11/10/19 13:47 Document 11/15/19 15:43 [id number] 11/15/19 15:47 Document 11/22/19 16:39 [id number] 11/22/19 16:41 11/10/19 11/15/19 11/22/19 13:46 15:43 16:39 Wound Center Nurse 2 #1 LLE -Time 13:46 15:46 16:39 -Correct Patient Yes Yes Yes -Correct Side, Site, Position Yes Yes Yes -Correct Procedure Yes Yes Yes -Procedure Performed Yes Yes Yes -Type of Procedure Debridement Debridement Debridement -Clinical Debridement Subcutaneous Subcutaneous Selective -Post Debridement Size (cm) - Length 12.5 11 13.1 -Post Debridement Size (cm) - Width 11.2 6.6 11.5 -Post Debridement Size (cm) - Depth 0.2 0.2 0.3 -Total Square Cm 140.00 72.6 150.65 -Wound/Ulcer Outcome Not Healed Not Healed Not Healed -Ulcer Cleansing Rinsed/ Rinsed/ Rinsed/ Irrigated with Irrigated with Irrigated with Saline Saline Saline -Foul Odor after Cleansing No No No -Bioengineered Tissue No No No -Bleeding Controlled with Pressure Pressure Pressure -Offloading No No No -Treatment Response Procedure Procedure Procedure Tolerated Well Tolerated Well Tolerated Well Pain Scale: 0-10 Numeric Is Patient Pain Free? Yes Yes Yes Wound debrided: anterior leg Laterality: Left Type of Debridement: Selective debridement Anesthesia Used: 5% Lidocaine Gel Depth: in the subcutaneous layer Percentage of wound debrided: 100 Instrument Used: #15 blade Tissue Removed: fibrous, devitalized tissue ,slough, biofilm, slough Severity: Fat Layer Exposed Amount of bleeding with debridement: Mild Bleeding Controlled with: Pressure Patient tolerated procedure well Assessment/Plan Assessment: Left leg ulcer with fat layer exposed and resolved adjacent maceration. Bacterial contamination is resolving. Leg edema. Venous insufficiency. Peripheral vascular disease. Delayed healing. Malnutrition suspected Plan: I reviewed and discussed her case today. Debridement was performed as noted in the clinical panel in a selective manner. I recommended changing the dressing daily with hydrogel and adaptic until she is able to obtain santyl. A prescription was provided to help get rid of fibrous tissue. This was applied with a secondary dressing as well. She is advised to wash the leg daily with antimicrobial soap including medical grade hibiblens. She is doing well with this so far. An updated wound culture was obtained and she demonstrates growth of bacteria that is not a part of the normal david. I do not recommend antibiotic at this time and wants addressed this locally with antimicrobial soap. She monitor for bacterial or systemic signs of illness progression. She has completed her course of ciprofloxacin. She was reassured no systemic signs of illness are noted. I recommend she proceed with work-up for both arterial and venous disease. Venous reflux evaluation test was ordered. She was advised to avoid idle sitting and standing and to elevate the limb to control edema. If she has continued pain particularly with leg elevation, I recommend she intermittently dangles the leg as well. I also recommend she proceeds with noninvasive arterial study. To d/c tubigrip due to inability to tolerate. It appears she does have some mild form of venous insufficiency after reviewing her venous Doppler exam. She does also have significant bilateral lower extremity monophasic waveforms with ABIs of around 0.5 bilaterally. I recommend a vascular specialist referral to Dr. Morel in this was provided. She is scheduled for early December and will try to see if she can get into a non [place] office location earlier. I also recommend updated labs including CBC, CMP, and prealbumin to assess her current medical status. An order was provided previously and she was advised to obtain. To proceed with a proper control diet and nutrition supplementation to optimize healing. I answered all of her questions and explained the etiology of ulcer causes and the comprehensive wound healing plan. Her pain was additionally addressed by providing a prescription for topical 4% lidocaine cream for application susana-ulcer site and not directly in the ulcer site after dressing changes for this is when her pain is worse. I recommend she returns on a weekly basis. I answered her questions. . 2019 quality measures reviewed as the following: Reviewed today-pain level was confirmed in follow-up plan was documented, medication and allergy reconciliation was performed. Reviewed 11/15/2019-pneumonia vaccination was confirmed, influenza immunization was confirmed for this current season in July 2019, advanced care plan was confirmed with living will, she is a current tobacco non user, her blood pressure is elevated over 120/80 and I recommend she follows up with her primary care physician for medical management of this. Diet and exercise benefits were also discussed for educational purposes to optimize her wound healing and medical management.
== END 2019-12-08 23:59 ==
LOC: WC 16:15
PROVIDERS: Referring Provider Podiatrist; Visit Provider Podiatrist
DX: I73.9 Peripheral vascular disease, unspecified (principal); R60.0 Localized edema; L97.822 Non-pressure chronic ulcer of other part of left lower leg with fat layer exposed; Z86.12 Personal history of poliomyelitis; M79.605 Pain in left leg
CPT/HCPCS: 11042; 11045; 93923; 93970; 97597; 97598

== ENCOUNTER 2019-11-28 18:02 | Inpatient (IN) | payer MEDICARE, OTHER, SELFPAY ==
[2019-11-28] VITALS (9 sets, daily range): BP systolic 110–136; BP diastolic 56–70; PULSE 138–146; RESP 17–24; TEMP 37.1–37.2; O2SAT 94–97; BMI 32.5; BMI 30.6
--- NOTE | 2019-11-28 18:57 | EKG12_ITS ---
Test Reason : WEAKNESS Blood Pressure : / mmHG Vent. Rate : 144 BPM Atrial Rate : 144 BPM P-R Int : 128 ms QRS Dur : 052 ms QT Int : 272 ms P-R-T Axes : 086 044 064 degrees QTc Int : 421 ms Sinus tachycardia Nonspecific ST abnormality Abnormal ECG Confirmed by STEPHANIE MOREIRA ([id number]), commissioning editor REMI SANDOVAL ([id number]) on 11/30/2019 8:32:22 AM Referred By: YANCI Confirmed By:STEPHANIE MOREIRA
--- NOTE | 2019-11-28 18:59 | ED.DCSUM_ITS ---
- ER Visit Summary Date of Service: 11/28/19 Chief Complaint: Diarrhea History of Present Illness: The patient is a 69 F history of hypothyroidism prior polio and high cholesterol. Patient's been on no recent antibiotics. No recent travel. She has had C. difficile once in the past. States has had diarrhea 1+ episodes a day for the last week. No melena. No nausea or vomiting. No abdominal pain. She drinks city water. She is had no recent med changes. No one else at home has had similar symptoms or diarrhea. Physical Examination: Older female vital signs stable except her heart rates 138. Clinically she looks dehydrated. She does not look septic. H EENT exam dry mucous members. Otherwise unremarkable. Neck nontender. No lymphadenopathy. Lungs clear to auscultation bilaterally. Heart tachycardic rate about 141 of my exam no murmur. Abdomen soft nontender normal bowel sounds no peritoneal signs. Extremities moves all 4. Neurovascular intact. No edema. She does have a right lower leg is smaller than the left from her prior polio. Neurologically she is awake and alert. She is moving all 4 extremities. Test Results: This x-ray shows no acute abnormality read by myself and the radiologist. Radiologist did comment on a blood vessel seen on and in the right midlung. EKG sinus tachycardia rate of 144 no ischemia unchanged from prior. White count of 20,900 hemoglobin 1290% segmented neutrophils no bands. Electrolytes sodium 132 potassium 3.3 gap 11 normal BUN and creatinine. Liver enzymes normal. UA normal except for ketones lactic acid normal 1.5. Emergency Department Course and Treatment: Clinically patient looks dehydrated. Clinically she feels warm but her initial temperature was only 98. She be treated with IV fluids. Infectious etiology will be screened for with labs and a chest x-ray. Treatment Plan: Repeat exam at 2150 patient somewhat improved with IV fluids. We discussed her test results. Blood cultures are pending stool culture she is not given us a stool sample as of yet. I spoke to her and her family she will be admitted to have the hospitalist on page. Disposition: [] Impression: Acute diarrhea of uncertain etiology Leukocytosis of uncertain etiology Acute clinical dehydration This note was generated with [employer] software. It may contain incorrect words, spelling, and punctuation that were not noted in review of the chart prior to signing ED Disposition - Plan for ED Patient: Referrals: Boo Saunders MD [Primary Care Provider] -
[2019-11-28] MEDS: 0.9% Normal Saline 1,000 ML 1000 ML IV (19:15)
[2019-11-28 19:18] LABS: Absolute Lymphocyte Count 0.89 X10^3/uL (0.83-4.51); Absolute Neutrophil Count 18.9 X10^3/uL (2.0-7.7); Basophil# 0.05 X10^3/uL; Basophil% 0.2 % (0-1); Eosinophil# 0.01 X10^3/uL; Hematocrit 39.7 % (37-47); Hemoglobin 12.7 g/dL (12.0-15.0); Lymphocyte # 0.89 X10^3/ul (4.0); Lymphocyte % 4.3 % (19-41); Mean Corpuscular Hgb 28.8 pg (27.0-32.0); Mean Platelet Vol. 8.4 fl (6.2-12.0); Monocyte# 0.84 X10^3/uL; NRBC Flagged by Analyzer 0 % (0-5); Neutrophil # 18.89 X10^3/uL (2.7-7.7); Neutrophil % 90.5 % (47-70); Platelet Count 385 K/mm3 (150-450); RBC Distribution Width CV 12.8 % (11.6-14.6); RBC Distribution Width SD 42.6 fl (35.1-43.9); Red Blood Count 4.41 M/mm3 (4.2-5.4); White Blood Count 20.9 K/mm3 (4.4-11.0)
--- NOTE | 2019-11-28 19:25 | RAD_ITS ---
STUDY: X-RAY CHEST REASON FOR EXAM: Female, 69 years old. FEVER TECHNIQUE: Single frontal view of the chest. COMPARISON: None. FINDINGS: Cardiac silhouette unremarkable. Pulmonary vascularity unremarkable. Aorta atherosclerotic. A nodular density in the right midlung may have a small cavitary component. Remainder of the lungs are clear. No pleural effusions. Upper abdomen unremarkable. Osseous structures intact. No pneumothorax. RAD/Chest 1 View (Portable) IMPRESSION: Nodular density in the right midlung may have a small cavitary component or may represent a prominent vessel seen on end. It can be further assessed with chest CT as clinically indicated. Electronically Signed: Theodore Castañeda, at 20:11 EST Tel , Service support ,
[2019-11-28 19:35] LABS: AST(SGOT) 13 U/L (15-37); Alanine Aminotransfer ALT/SGPT 13 U/L (13-56); Albumin, Serum 2.8 g/dL (3.2-5.0); Alkaline Phosphatase 107 U/L (45-117); Anion Gap 11 (5-15); BUN 9 mg/dL (7-18); BUN/Creat Ratio 12.9 RATIO (10-20); Bilirubin, Direct 0.18 mg/dL (0.00-0.30); Calcium,Total 8.6 mg/dL (8.5-10.1); Chloride 97 mmol/L (98-107); EST Glomerular Filtration Rate 88 mL/min (>60); Est Glom Filt Rate - Afr Amer 106 mL/min (>60); Estimated Creatinine Clearance 57.59 ml/min; Globulin 4.8 g/dL (2.2-4.2); Glucose 112 mg/dL (74-106); Potassium 3.3 mmol/L (3.5-5.1); Protein, Total 7.6 g/dL (6.4-8.2); Sodium Level 132 mmol/L (136-145)
[2019-11-28 19:39] LABS: Lactic Acid 1.5 mmol/L (0.4-1.9)
[2019-11-28 20:20] LABS: Bacteria 0 SEEN /hpf (None Seen); White Blood Cells 0 SEEN /hpf (0-5)
[2019-11-28 20:40] LABS: Color, Urine Yellow (Yellow); Glucose, Dipstick Normal (Normal); Leukocyte Esterase-Dipstick Negative /ul (Negative); Nitrite-Dipstick Negative (Negative); Occult Blood-Urine 25 /ul (Negative); Protein-Dipstick 30 mg/dl (Negative); Urine Bilirubin Dipstick Negative (Negative); Urine Clarity Clear (Clear); Urine Urobilinogen Normal (Normal)
[2019-11-28 20:42] LABS: Ketone-Dipstick 150 mg/dl (Negative)
--- NOTE | 2019-11-28 20:43 | ED.RN ---
URINE KETONES >150 PER LAB CALL, MD AND PRIMARY RN NOTIFIED.
[2019-11-28 21:03] LABS: Mucous, Urine 3+ /hpf (<or=2+)
[2019-11-28 21:04] LABS: Red Blood Cells-Urine 0-5 SEEN /hpf (0-5); Squamous Epithelial Cells - UA 0-5 SEEN /hpf (5-10)
--- NOTE | 2019-11-28 21:56 | HP.PCM_ITS ---
Problem List (1) Diarrhea Status: Acute (2) Cellulitis of left leg Status: Acute (3) Colonization status Status: Inactive (4) Delayed wound healing Status: Chronic (5) Left leg pain Status: Chronic (6) Leg edema, left Status: Chronic (7) Other specified peripheral vascular diseases Status: Chronic Comment: bilateral lower extremity (8) Ulcer of left lower extremity with fat layer exposed Status: Chronic (9) Venous insufficiency Status: Chronic Comment: left Greater saphenous vein History of Present Illness Date of Admission: 11/29/19 Chief Complaint: Diarrhea The patient is a 69 year old F with a significant history of hypertension; hypothyroidism; depression; peripheral artery disease; poliomyelitis and hyperlipidemia who presented to emergency department with 1 week history of multiple stools per day. Her bowels moved about 3 times per day. She reported that her bowels are well-formed. She had a low-grade fever of 99.3F. She reports chills without rigors. Further she has anorexia. At emergency department and white count was severely elevated at 20.9. Patient had bandemia. Past Medical History Past Medical History (Chronic Problems): Chronic Problems Ulcer of left lower extremity with fat layer exposed (Chronic) Delayed wound healing (Chronic) Venous insufficiency (Chronic) left Greater saphenous vein Other specified peripheral vascular diseases (Chronic) bilateral lower extremity Left leg pain (Chronic) Leg edema, left (Chronic) Allergies naproxen [From Naprosyn] Allergy (Verified 11/28/19 18:05) Rash amoxicillin Adverse Reaction (Verified 11/28/19 18:05) Rash cephalexin [From Keflex] Adverse Reaction (Verified 11/28/19 18:05) Rash clotrimazole [From Lotrimin] Adverse Reaction (Verified 11/28/19 18:05) Rash diphenhydramine [From Benadryl] Adverse Reaction (Verified 11/28/19 18:05) Rash griseofulvin Adverse Reaction (Verified 11/28/19 18:05) Rash ibuprofen [From Motrin] Adverse Reaction (Verified 11/28/19 18:05) Rash miconazole [From Monistat 1 Combo Pack] Adverse Reaction (Verified 11/28/19 18:05) Rash propranolol [From Inderal LA] Adverse Reaction (Verified 11/28/19 18:05) Rash rofecoxib [From Vioxx] Adverse Reaction (Verified 11/28/19 18:05) Rash Sulfa (Sulfonamide Antibiotics) Adverse Reaction (Verified 11/28/19 18:08) Rash Home Medications: Ambulatory Orders Medication Instructions Recorded Aspirin E.C. [Ecotrin] 81 mg PO QHS 11/28/19 Doxepin HCl [Sinequan] 10 mg PO QHS 11/28/19 Furosemide [Lasix] 40 mg PO PRN PRN 11/28/19 Levothyroxine [Synthroid] 137 mcg PO QHS 11/28/19 Metoprolol Tartrate [Lopressor 150 mg PO QHS 11/28/19 (Beta Mehran)] Pentoxifylline [Trental] 400 mg PO DAILY 11/28/19 Simvastatin [Zocor] 40 mg PO QHS 11/28/19 Surgical History: - - Surgery of legs because of polio Lives: Spouse/ Significant Other Smoking Status: Never smoker Alcohol: Occasional - *Family History Maternal History Items: Heart Disease Paternal History Items: Heart Disease Review of Systems Constitutional: Reports: Anorexia, Chills, Weakness, Fatigue. Denies: Fever, Weight Change HEENT: Denies: Head Aches, Sinus Congestion, Sinus Drainage Cardiovascular: Denies: Chest Pain, Palpitations Respiratory: Denies: Cough, Shortness of breath at rest, Sputum production Gastrointestinal: Reports: Diarrhea. Denies: Abdominal Pain, Nausea, Vomiting Genitourinary: Denies: Dysuria Musculoskeletal: Reports: Leg Pain. Denies: Joint Pain, Joint Tenderness Skin: Reports: Wounds. Denies: Rash Neurological: Denies: Numbness, Tingling, Focal weakness Psychiatric: Reports: Depression. Denies: Anxiety, Homicidal Ideations, Suicidal Ideations Hematologic/ Lymphatic: Denies: Easy Bruising, Easy Bleeding VTE Information - Inpt Only VTE Present on Admission: No VTE Mechan Device Prophylaxis: None VTE Pharm Prophylaxis ordered?: Yes Patient Problems: Active and Suspected Problems Diarrhea (Acute) - Physical Exam Vitals/I&O's: Vital Signs Temp Pulse Resp BP Pulse Ox 99 F 146 H 24 H 136/70 H 97 11/28/19 20:17 11/28/19 20:17 11/28/19 20:17 11/28/19 20:17 11/28/19 20:17 Oxygen Delivery Method Room Air Weight: 70.7 kg Body Mass Index (BMI) 32.5 General: Alert, Oriented x3, Cooperative HEENT: Atraumatic, PERRLA, EOMI, Normocephalic Oral: Dry Mucosa Neck: Supple, No JVD, Negative Carotid Bruits Lungs: Clear to auscultation, Normal air movement Cardiovascular: Normal S1, Normal S2, No murmurs, Tachycardic Abdomen: Bowel Sounds Present, Soft, Non Tender Extremities: Capillary Refill Less than 3 Seconds, Edema - Bilateral legs Skin: Ulcer/ Wound - Leg ulcer with surrounding erythema. Musculoskeletal: Tenderness - Left leg Neurological: Cranial nerves II-XII grossly intact Psych/Mental Status: Normal Affect, Appropriate Laboratory Results 11/28/19 19:07: WBC 20.9 H, RBC 4.41, Hgb 12.7, Hct 39.7, MCV 90.0, MCH 28.8, MCHC 32.0, RDW Std Deviation 42.6, RDW Coeff of Naseem 12.8, Plt Count 385, MPV 8.4, Immature Gran % (Auto) 1.000 H, Neut % (Auto) 90.5 H, Lymph % (Auto) 4.3 L, [place] % (Auto) 4.0, Eos % (Auto) 0.0, Baso % (Auto) 0.2, Absolute Neuts (auto) 18.9 H, Absolute Lymphs (auto) 0.89, Nucleated RBC % 0 11/28/19 19:07: Sodium 132 L, Potassium 3.3 L, Chloride 97 L, Carbon Dioxide 24.0, Anion Gap 11, BUN 9, Creatinine 0.70, Estim Creat Clear Calc 57.59, Est GFR (MDRD) Af Amer 106, Est GFR (MDRD) Non-Af 88, BUN/Creatinine Ratio 12.9, Glucose 112 H, Calcium 8.6, Total Bilirubin 0.70, Direct Bilirubin 0.18, AST 13 L, ALT 13, Alkaline Phosphatase 107, Total Protein 7.6, Albumin 2.8 L, Globulin 4.8 H 11/28/19 19:07: Lactic Acid 1.5 11/28/19 20:10: Urine Color Yellow, Urine Clarity Clear, Urine pH 5.0, Ur Specific [place] 1.020, Urine Protein 30 H, Urine Glucose (UA) Normal, Urine Ketones 150 H, Urine Occult Blood 25 H, Urine Nitrite Negative, Urine Bilirubin Negative, Urine Urobilinogen Normal, Ur Leukocyte Esterase Negative, Urine RBC 0-5 SEEN, Urine WBC 0 SEEN, Ur Squamous Epith Cells 0-5 SEEN, Urine Bacteria 0 SEEN, Urine Mucus 3+ Assessment/Plan All Active Problems Cellulitis of left leg (Acute) Diarrhea (Acute) The patient is a 69 year old F with a significant history of hypertension; hypothyroidism; depression; peripheral artery disease; poliomyelitis and hyperlipidemia who presented to emergency department with 1 week history of multiple stools per day; chills; low-grade fever was found to have leukocytosis with bandemia. Diarrhea Etiology unclear at this time. Stool for C. difficile and enteric pathogen panel was ordered emergency department follow-up. Will empirically start patient on ciprofloxacin and Flagyl. Continue antibiotics when stool work-up is negative Hypokalemia Likely secondary to diarrhea. Normal saline with potassium supplementation ordered Trend BMP Leukocytosis Etiology include severe hydration versus colitis. IV hydration and antibiotics as above Trend CBC. Dehydration On presentation patient with tachycardia; dry mucous membrane; and leukocytosis. IV hydration as above. Urine with ketones and occult blood as well as prote inuria. On discharge recommend patient follow-up with PCP for repeat urinalysis. Chronic wound of the left leg Wound dressing Wound care consult. Hypertension On presentation her blood pressure was within goal in regard to age. Metoprolol continued Trend blood pressure and adjust blood pressure medication Peripheral artery disease Trental continued Abnormal chest x-ray CT of the chest ordered. DVT prophylaxis Subcutaneous Lovenox. Code Visit Inpatient E&M: 26560 Init Hosp L3
--- NOTE | 2019-11-28 22:55 | CT_ITS ---
STUDY: CT CHEST WITHOUT CONTRAST REASON FOR EXAM: Female, 69 years old. ABNORMAL CXR, HERE FOR DIARRHEA AND WEAKNESS WITH FALL RADIATION DOSAGE (If Supplied By Facility): CTDIvol = ( 12.69 ) mGy, DLP = ( 440.61 ) mGycm TECHNIQUE: Transaxial imaging was performed without the administration of intravenous contrast material. Multiplanar coronal and sagittal images were reformatted. Individualized dose optimization techniques were used for this CT. COMPARISON: Comparison is made with prior chest radiograph done earlier in the day. FINDINGS: Small bilateral benign appearing axillary lymph nodes. Mild degree of emphysematous changes in the upper lobes with bullous formation. Calcified granuloma in the right lower lobe. 3.2 mm noncalcified nodule in the anterior aspect of the right middle lobe as seen on axial image #64. Minimal scarring in the anterior medial aspect of the right middle lobe. There is a 6.8 mm noncalcified pleural-based nodule in the lateral aspect of the left lower lobe. Minimal increased markings at the lung bases suggests mild linear scarring. There is no demonstrated pleural abnormality. There are calcifications of the coronary arteries. There are multiple small lymph nodes within the mediastinum, which are normal in size and morphology most compatible with reactive lymph hyperplasia. Calcified right hilar lymph nodes. Normal unenhanced pulmonary arteries. There is atherosclerotic calcification of the aortic arch with tortuosity and elongation of the aortic arch and descending thoracic aorta. There are multi-level degenerative changes of the thoracic spine. Small hiatal hernia. Calcified splenic granulomas. CT/Chest without Contrast IMPRESSION: No acute abnormality is seen. Electronically Signed: Juice Kee, at 9:09 EST , Service support ,
[2019-11-28 23:16] LABS: Magnesium 2.2 mg/dL (1.6-2.6)
[2019-11-28] MEDS: 0.9% Saline Lock 10 ML Syringe IV (23:51)
[2019-11-28] MEDS: Potassium Chloride 40 MEQ in 0.9% Normal Saline 1,000 ML 100 MEQ IV (23:51)
[2019-11-28] MEDS: metroNIDAZOLE 500 MG/100 ML BAG 100 MG IV (23:51)
[2019-11-28] MEDS: Atorvastatin Calcium 20 MG Tablet PO (23:52)
[2019-11-28] MEDS: Aspirin E.C. 81 MG Tablet PO (23:52)
[2019-11-28] MEDS: Pentoxifylline 400 MG Tablet PO (23:52)
[2019-11-28] MEDS: Doxepin Hydrochloride 10 MG Capsule PO (23:52)
[2019-11-28] MEDS: Metoprolol Tartrate 50 MG Tablet 150 MG PO (23:52)
[2019-11-28] MEDS: Levothyroxine 137 MCG Tablet PO (23:52)
[2019-11-29] VITALS (16 sets, daily range): BP systolic 118–144; BP diastolic 50–94; PULSE 99–145; RESP 18–24; TEMP 36.6–37.4; O2SAT 92–97
[2019-11-29] MEDS: Ciprofloxacin 400 MG/200 ML BAG 200 MG IV (00:57)
[2019-11-29] MEDS: Ondansetron 4 MG/2 ML Vial IV (05:22)
[2019-11-29] MEDS: metroNIDAZOLE 500 MG/100 ML BAG 100 MG IV (05:22)
[2019-11-29 05:40] LABS: Absolute Lymphocyte Count 0.65 X10^3/uL (0.83-4.51); Absolute Neutrophil Count 19.1 X10^3/uL (2.0-7.7); Basophil# 0.05 X10^3/uL; Basophil% 0.2 % (0-1); Eosinophil# 0.01 X10^3/uL; Hematocrit 36.4 % (37-47); Hemoglobin 11.6 g/dL (12.0-15.0); Lymphocyte # 0.65 X10^3/ul (4.0); Lymphocyte % 3.1 % (19-41); Mean Corp Hgb Conc 31.9 g/dL (32-36); Mean Corpuscular Hgb 28.7 pg (27.0-32.0); Mean Corpuscular Volume 90.1 fL (81-99); Mean Platelet Vol. 8.6 fl (6.2-12.0); Monocyte% 3.8 % (0-10); NRBC Flagged by Analyzer 0 % (0-5); Neutrophil % 91.4 % (47-70); Platelet Count 376 K/mm3 (150-450); RBC Distribution Width CV 13.1 % (11.6-14.6); RBC Distribution Width SD 43.3 fl (35.1-43.9); Red Blood Count 4.04 M/mm3 (4.2-5.4); White Blood Count 20.9 K/mm3 (4.4-11.0)
[2019-11-29 06:33] LABS: Anion Gap 9 (5-15); BUN 8 mg/dL (7-18); BUN/Creat Ratio 13.4 RATIO (10-20); Calcium,Total 8.1 mg/dL (8.5-10.1); Chloride 102 mmol/L (98-107); EST Glomerular Filtration Rate 105 mL/min (>60); Est Glom Filt Rate - Afr Amer 127 mL/min (>60); Estimated Creatinine Clearance 54.17 ml/min; Glucose 118 mg/dL (74-106); Potassium 3.6 mmol/L (3.5-5.1); Sodium Level 134 mmol/L (136-145)
--- NOTE | 2019-11-29 07:15 | PCM.PN.HOSP ---
Patient Problems: Active and Suspected Problems Diarrhea (Acute) Reason for Visit: Follow-up diarrhea/Acute C. diff Subjective: Patient seen and examined. She has had one BM. She feels weak. No fever or chills. Vitals/I&O's: Vital Signs Temp Pulse Resp BP Pulse Ox 98.3 F 108 H 18 125/64 H 94 11/29/19 05:27 11/29/19 05:27 11/29/19 05:27 11/29/19 05:27 11/29/19 05:27 Oxygen Delivery Method Room Air Weight: 66.5 kg Body Mass Index (BMI) 30.6 Intake and Output for Last 24 Hours 11/27/19 11/28/19 11/29/19 23:59 23:59 23:59 Intake Total 1000 / 1000 766.66 / 766.66 Balance 1000 / 1000 766.66 / 766.66 General: Alert, Oriented x3, Cooperative, No apparent distress, - - Looks frail, appears very weak HEENT: Atraumatic, PERRLA, EOMI, Normocephalic Oral: Moist Mucosa Neck: Supple Lungs: Clear to auscultation, Normal air movement Cardiovascular: Regular rate, Regular Rhythm, Normal S1, Normal S2, No murmurs Abdomen: Bowel Sounds Present, Soft, Non Tender, Non-Distended, No Hepato-splenomegaly Extremities: Edema - bilaterally, +1, left montes de oca dressing in place, wound pictures in system Skin: - - see wound picture Musculoskeletal: No Tenderness to Palpation of Joints or Extremities Lymphatic: No Cervical, Supraclavicular, or Inguinal Adenopathy Neurological: Cranial nerves II-XII grossly intact Psych/Mental Status: Normal Affect, Appropriate Microbiology Past 72 Hours 11/29/19 03:46 Stool C. difficile GDH Antigen & Toxins - Final Toxigenic C. difficile 11/29/19 03:46 Stool C. difficile DNA Amplification - Final Laboratory Results 11/28/19 19:07: WBC 20.9 H, RBC 4.41, Hgb 12.7, Hct 39.7, MCV 90.0, MCH 28.8, MCHC 32.0, RDW Std Deviation 42.6, RDW Coeff of Naseem 12.8, Plt Count 385, MPV 8.4, Immature Gran % (Auto) 1.000 H, Neut % (Auto) 90.5 H, Lymph % (Auto) 4.3 L, [place] % (Auto) 4.0, Eos % (Auto) 0.0, Baso % (Auto) 0.2, Absolute Neuts (auto) 18.9 H, Absolute Lymphs (auto) 0.89, Nucleated RBC % 0 11/28/19 19:07: Sodium 132 L, Potassium 3.3 L, Chloride 97 L, Carbon Dioxide 24.0, Anion Gap 11, BUN 9, Creatinine 0.70, Estim Creat Clear Calc 57.59, Est GFR (MDRD) Af Amer 106, Est GFR (MDRD) Non-Af 88, BUN/Creatinine Ratio 12.9, Glucose 112 H, Calcium 8.6, Total Bilirubin 0.70, Direct Bilirubin 0.18, AST 13 L, ALT 13, Alkaline Phosphatase 107, Total Protein 7.6, Albumin 2.8 L, Globulin 4.8 H 11/28/19 19:07: Lactic Acid 1.5 11/28/19 19:07: Magnesium 2.2 11/28/19 20:10: Urine Color Yellow, Urine Clarity Clear, Urine pH 5.0, Ur Specific [place] 1.020, Urine Protein 30 H, Urine Glucose (UA) Normal, Urine Ketones 150 H, Urine Occult Blood 25 H, Urine Nitrite Negative, Urine Bilirubin Negative, Urine Urobilinogen Normal, Ur Leukocyte Esterase Negative, Urine RBC 0-5 SEEN, Urine WBC 0 SEEN, Ur Squamous Epith Cells 0-5 SEEN, Urine Bacteria 0 SEEN, Urine Mucus 3+ 11/29/19 05:20: Sodium 134 L, Potassium 3.6, Chloride 102, Carbon Dioxide 23.0, Anion Gap 9, BUN 8, Creatinine 0.60, Estim Creat Clear Calc 54.17, Est GFR (MDRD) Af Amer 127, Est GFR (MDRD) Non-Af 105, BUN/Creatinine Ratio 13.4, Glucose 118 H, Calcium 8.1 L 11/29/19 05:20: WBC 20.9 H, RBC 4.04 L, Hgb 11.6 L, Hct 36.4 L, MCV 90.1, MCH 28.7, MCHC 31.9 L, RDW Std Deviation 43.3, RDW Coeff of Naseem 13.1, Plt Count 376, MPV 8.6, Immature Gran % (Auto) 1.500 H, Neut % (Auto) 91.4 H, Lymph % (Auto) 3.1 L, [place] % (Auto) 3.8, Eos % (Auto) 0.0, Baso % (Auto) 0.2, Absolute Neuts (auto) 19.1 H, Absolute Lymphs (auto) 0.65 L, Nucleated RBC % 0 Current Medications Acetaminophen (Tylenol) 650 mg PO Q6H PRN PRN PRN Reason: Pain Score 1-10/Temp > 100.7 F Aspirin (Ecotrin) 81 mg PO QHS [facility] Last Admin: 11/28/19 23:52 Dose: 81 mg Documented by: Atorvastatin Calcium (Lipitor) 20 mg PO QHS [facility] Last Admin: 11/28/19 23:52 Dose: 20 mg Documented by: Doxepin HCl (Sinequan) 10 mg PO QHS [facility] Last Admin: 11/28/19 23:52 Dose: 10 mg Documented by: Enoxaparin Sodium (Lovenox) 40 mg SC DAILY [facility] Glucagon () 1 mg IM .X1 PRN PRN Reason: Hypoglycemia Potassium Chloride 40 meq/ (Sodium Chloride) 1,020 mls @ 100 mls/hr IV .[id number] [facility] Stop: 11/30/19 04:54 Last Infusion: 11/29/19 06:23 Dose: 100 mls/hr Documented by: Sodium Chloride () 250 mls @ 15 mls/hr IV .[id number] PRN PRN Reason: Saline Flush Sodium Chloride () 250 mls @ 15 mls/hr IV .[id number] PRN PRN Reason: Additional IVPB Infusion Dextrose (Dextrose 10%-Water) 250 mls @ 999 mls/hr IV .Q16M PRN; Protocol PRN Reason: HYPOGLYCEMIA Levothyroxine Sodium (Synthroid) 137 mcg PO QHS [facility] Last Admin: 11/28/19 23:52 Dose: 137 mcg Documented by: Melatonin (Melatonin) 3 mg PO QHS PRN PRN PRN Reason: INSOMNIA Metoprolol Tartrate (Lopressor (Beta Mehran)) 150 mg PO QHS [facility] Last Admin: 11/28/19 23:52 Dose: 150 mg Documented by: Nutritional Formula (Lactose Free) (Ensure Enlive) 120 ml PO 4X/DAY [facility] Ondansetron HCl (Zofran) 4 mg IV Q8H PRN PRN PRN Reason: NAUSEA/VOMITING Last Admin: 11/29/19 05:22 Dose: 4 mg Documented by: Pentoxifylline (Trental) 400 mg PO QHS [facility] Last Admin: 11/28/19 23:52 Dose: 400 mg Documented by: Sodium Chloride () 10 - 40 ml IV UD PRN PRN Reason: SALINE FLUSH Last Admin: 11/28/19 23:51 Dose: 10 ml Documented by: Vancomycin HCl (Vancomycin Hcl) 500 mg PO Q6 NEIL STROKE Vital Signs/Narrative: Vital Signs Temp Pulse Resp BP Pulse Ox 11/29/19 05:27 98.3 F 108 H 18 125/64 H 94 11/29/19 04:00 108 H Medical Necessity - Tobacco Use Smoking Status: Never smoker Assessment/Plan All Active Problems Cellulitis of left leg (Acute) Diarrhea (Acute) 69 year old F with a significant PMHx of hypertension, hypothyroidism, depression admitted with 1 week history of diarrhea. 1. Acute C. Diff diarrhea, severe, WBC is elevated at 20.9, Cr is normal Will continue on po vancomycin, strict stool charting, supportive IVF 2. Hypokalemia secondary to #1, replaced, continue with replacement IVF 3. Chronic wound of the left leg, wound pictures in system, She has been following up with wound clinic Will be continued on Santyl per wound RN 4. Hypertension, controlled, continue on metoprolol 5. PAD, on Trental 6. Hypothyroidism, on Synthroid 7. Lung nodules seen on CT chest, follow-up in the outpatient 8. DVT prophylaxis - Lovenox SC. Code Visit Inpatient E&M: 36072 Subs Hosp L2
--- NOTE | 2019-11-29 08:24 | NURSING ---
wound photo: left montes de oca
[2019-11-29] MEDS: Vancomycin HCl 250 MG Capsule 500 MG PO ×3 (08:37→18:23)
[2019-11-29] MEDS: Enoxaparin 40 MG/0.4 ML Syringe SC (08:37)
--- NOTE | 2019-11-29 11:11 | EKG12_ITS ---
Test Reason : TACHYCARDIA Blood Pressure : / mmHG Vent. Rate : 142 BPM Atrial Rate : 142 BPM P-R Int : 120 ms QRS Dur : 052 ms QT Int : 272 ms P-R-T Axes : 072 021 041 degrees QTc Int : 418 ms Sinus tachycardia Low voltage QRS Septal infarct , age undetermined Abnormal ECG When compared with ECG of 28-NOV-2019 19:12, MANUAL COMPARISON REQUIRED, DATA IS UNCONFIRMED Confirmed by OJ OLIVARES, KAVITHA ([id number]), web editor REMI SANDOVAL ([id number]) on 12/01/2019 2:55:54 PM Referred By: YOBANY Confirmed By:TIERNEY MCWILLIAMS MD
--- NOTE | 2019-11-29 12:05 | CASEMGMT ---
Addendum entered by Adolfo Shafer 11/29/19 14:24: 1310: Pt sleeping. Daughter, Tasia, just arriving to room. Tasia provided with information on [facility] ([employer] [facility] [place]) with phone number to contact for her father. Tasia voices appreciation. Original Note: RN CM EDUCATION FACULTY MEMBER CM to room to meet with patient for initial transition planning/care coordination assessment. RN CM introduced self and role at [facility]. Pt voices understanding and consents to assessment at this time. Pt resting in bed in no distress at this time. Pt is A/O at this time and answers all questions appropriately. Care providers, pharmacy, and demographics verified/updated at this time. PCP: Dr Saunders Specialists: Goes to the [facility] weekly (Wednesdays) Preferred Pharmacy: [facility] Retail Insurance: MCR A/B, AARP Prescription Benefit: [employer] Living Will/HPOA: Pt states she has completed AD, but she is not sure who she has listed as her POA. She states would like to talk with SW to complete updated paperwork. CAPRICE Jovel, made aware. LNOK: , Farhan. 3 adult children: 1 daughter, Tasia who lives about 3 miles away. 2 sons: Micheal and Priyank Living Arrangements: Lives with her , who is blind. Pt states he is fairly independent but she helps take care of him. Pt states that her sister also helps to take care of her and her sister is staying with him now while she is in the hospital. Pt states she ambulates with a walker @ home and does all home mgmt tasks (meals/laundry/cleaning). They do also hire a civil engineering manager to help. Transportation: Pt drives short distances/in town. Sister usually drives her to her doctor appts that are out of town. Daughter, Tasia, also helps with transportation if needed. DME: States has the following DME: built-in shower seat, rails/grab bars, hand held shower, walker. Pt states no need for further DME at this time. HHC/SNF: No history of either. Discussed discharge planning/needs with pt. Pt states she is not sure she will be strong enough to return home at discharge and is considering going to a SNF. She states if she does not qualify for or need a SNF at discharge, then she is interested in HHC. PT/OT evals pending. CM to follow for any further discharge planning/needs. Pt voices no further concerns/needs at this time. Advised pt to ask for CM if any further questions/concerns/needs arise. Voices understanding. PLAN: Home w/HHC vs SNF. Pt states if goes to a SNF, her 1st choice is [facility] in [place]. CAPRICE, Stella Landaverde, made aware. PT/OT evals pending. If discharges home, follow for PO Vanc @ discharge, as this may require prior auth, and HHC. CAPRICE for AD. Lyudmila CARDOSON RN CM
--- NOTE | 2019-11-29 13:05 | CASEMGMT ---
SW spoke w/pt briefly in regard to completing LW/POA forms. Pt is not feeling well at present, would like to speak w/SW tomorrow in regard to completing the forms. SW will follow up tomorrow. JOSE L Mccoy
--- NOTE | 2019-11-29 13:25 | CASEMGMT ---
Social Work Note PT/OT are recommending pt go to SNF at discharge. SW met with pt and updated her that PT/OT are recommending SNF at discharge. Pt states well I don't know if I want to go to SNF. SW asked pt if she needs to go to SNF if she has a preference. Pt states if SNF is needed she would like [facility]. SW asked pt if this worker can send initial referral to [facility] and pt gave this worker permission to do so. [facility] Plan: TBD. Pt undecided at this time if she wants to go to SNF at discharge Stella Landaverde STABLE CLEANER, FACILITIES DIRECTOR
[2019-11-29] MEDS: Potassium Chloride 40 MEQ in 0.9% Normal Saline 1,000 ML 100 MEQ IV (13:40)
--- NOTE | 2019-11-29 13:51 | CHAPLAIN ---
Type of Pastoral Visit _x__ Initial Visit ___ Follow-up Visit ___ On-call Visit ___ General Patient Visit ___ Spiritual Assessment ___ Family Conference ___ Bereavement ___ Rapid Response ___ Code Blue ___ Other (describe below) Pastoral Care Referral From _x__ Patient ___ Family ___ Nurse ___ Physician ___ Textile Slitting Machine Operator ___ Network Security Officer ___ Other (describe below) Sacrament/Intervention _x__ Active listening ___ Anointing ___ Roman Catholic ___ Bereavement ___ Communion ___ Amelia exploration ___ ___ Life review _x__ Prayer ___ Reconciliation ___ Sacrament of Sick ___ Supportive presence ___ Wedding ___ Other (describe below) Pastoral Comments
[2019-11-29] MEDS: Atorvastatin Calcium 20 MG Tablet PO (21:49)
[2019-11-29] MEDS: Doxepin Hydrochloride 10 MG Capsule PO (21:49)
[2019-11-29] MEDS: Metoprolol Tartrate 50 MG Tablet 150 MG PO (21:49)
[2019-11-29] MEDS: Pentoxifylline 400 MG Tablet PO (21:49)
[2019-11-29] MEDS: Aspirin E.C. 81 MG Tablet PO (21:49)
[2019-11-29] MEDS: Menthol/Lanolin/Calamine/Znox 113 GM Tube 1 APPLIC TOPICAL (21:54)
[2019-11-29] MEDS: Levothyroxine 137 MCG Tablet PO (21:54)
--- NOTE | 2019-11-29 22:00 | NURSING ---
wheezing noted throughout. SpO2 98% on 2L, Respirations 24. Dr. Jennings notified. CXR,flu swab, and duoneb ordered
--- NOTE | 2019-11-29 22:25 | RAD_ITS ---
STUDY: X-RAY CHEST REASON FOR EXAM: Female, 69 years old. wheezing TECHNIQUE: Single AP portable view of the chest. COMPARISON: November 28, 2019 FINDINGS: The lungs are clear and expanded. There is no demonstrated pleural abnormality. Normal size heart. Normal mediastinum and jarvis. Normal visualized pulmonary arteries. There is atherosclerotic calcification of the aortic arch with tortuosity. Stable osseous structures. RAD/Chest 1 View (Portable) IMPRESSION: No acute process Electronically Signed: Carlos Navarro MD at 22:49 EST , Service support ,
[2019-11-29] MEDS: Ipratropium/Albuterol Sulfate 3 ML AMPUL.NEB INHALATION (22:40)
[2019-11-30] VITALS (18 sets, daily range): BP systolic 107–135; BP diastolic 52–88; PULSE 109–149; RESP 16–22; TEMP 36.5–37.2; O2SAT 96–98
[2019-11-30] MEDS: Vancomycin HCl 250 MG Capsule 500 MG PO ×5 (00:40→23:14)
[2019-11-30] MEDS: Ipratropium/Albuterol Sulfate 3 ML AMPUL.NEB INHALATION ×2 (07:00→15:29)
--- NOTE | 2019-11-30 07:13 | PCM.PN.HOSP ---
Patient Problems: Active and Suspected Problems Diarrhea (Acute) Reason for Visit: Follow-up on acute C. difficile colitis Subjective: Patient was seen and examined. She appears weak. She says she feels better though. She has had more than 4 bowel movement this morning. She complains of lack of sleep. Denies any fever or chills. Tachycardia has improved. Her heart rate went as high as 142. Received fluid boluses for low urine output. Objective: Physical exam: General: Alert, Oriented x3, Cooperative, No apparent distress, - - Looks frail HEENT: Atraumatic, PERRLA, EOMI, Normocephalic Oral: Moist Mucosa Neck: Supple Lungs: Clear to auscultation, Normal air movement Cardiovascular: Regular rate, Regular Rhythm, Normal S1, Normal S2, No murmurs Abdomen: Bowel Sounds Present, Soft, Non Tender, Non-Distended, No Hepato-splenomegaly Extremities: Edema - bilaterally, +1, left montes de oca dressing in place, wound pictures in system Skin: - - see wound picture Musculoskeletal: No Tenderness to Palpation of Joints or Extremities Lymphatic: No Cervical, Supraclavicular, or Inguinal Adenopathy Neurological: Cranial nerves II-XII grossly intact Psych/Mental Status: Normal Affect, Appropriate Vitals/I&O's: Vital Signs Temp Pulse Resp BP Pulse Ox 97.8 F 122 H 20 H 122/52 H 96 11/30/19 04:05 11/30/19 07:00 11/30/19 07:00 11/30/19 04:05 11/30/19 07:01 Oxygen Flow Rate (L/min) 2 Oxygen Delivery Method Nasal Cannula Weight: 66.5 kg Body Mass Index (BMI) 30.6 Intake and Output for Last 24 Hours 11/28/19 11/29/19 11/30/19 23:59 23:59 23:59 Intake Total 1000 / 1000 3213.33 / 3413.33 1255 / 1255 Output Total 200 / 200 Balance 1000 / 1000 3013.33 / 3213.33 1255 / 1255 Microbiology Past 72 Hours 11/29/19 22:37 Nasal Secretion Influenza Types A,B Direct FA (PATSY) - Final 11/29/19 03:46 Stool Enteric Bacteriology - Final 11/29/19 03:46 Stool C. difficile GDH Antigen & Toxins - Final Toxigenic C. difficile 11/29/19 03:46 Stool C. difficile DNA Amplification - Final Current Medications Acetaminophen (Tylenol) 650 mg PO Q6H PRN PRN PRN Reason: Pain Score 1-10/Temp > 100.7 F Albuterol Sulfate (Ventolin Aerosols) 2.5 mg INHALATION Q2H PRN PRN PRN Reason: WHEEZING Albuterol/Ipratropium (Duoneb) 3 ml INHALATION Q4HWA.RT [facility] Last Admin: 11/30/19 07:00 Dose: 3 ml Documented by: Aspirin (Ecotrin) 81 mg PO QHS [facility] Last Admin: 11/29/19 21:49 Dose: 81 mg Documented by: Atorvastatin Calcium (Lipitor) 20 mg PO QHS [facility] Last Admin: 11/29/19 21:49 Dose: 20 mg Documented by: Calamine/Phenol (Calmoseptine Ointment) 1 applic TOPICAL BID [facility]; Protocol Last Admin: 11/29/19 21:54 Dose: 1 applicatio Documented by: Collagenase (Santyl) 1 applic TOPICAL DAILY [facility]; Protocol Last Admin: 11/29/19 12:16 Dose: Not Given Documented by: Doxepin HCl (Sinequan) 10 mg PO QHS [facility] Last Admin: 11/29/19 21:49 Dose: 10 mg Documented by: Enoxaparin Sodium (Lovenox) 40 mg SC DAILY [facility] Last Admin: 11/29/19 08:37 Dose: 40 mg Documented by: Glucagon () 1 mg IM .X1 PRN PRN Reason: Hypoglycemia Sodium Chloride () 250 mls @ 15 mls/hr IV .[id number] PRN PRN Reason: Saline Flush Sodium Chloride () 250 mls @ 15 mls/hr IV .[id number] PRN PRN Reason: Additional IVPB Infusion Dextrose (Dextrose 10%-Water) 250 mls @ 999 mls/hr IV .Q16M PRN; Protocol PRN Reason: HYPOGLYCEMIA Potassium Chloride/Sodium Chloride () 1,000 mls @ 150 mls/hr IV .Q6H40M [facility] Last Admin: 11/30/19 00:41 Dose: 150 mls/hr Documented by: Levothyroxine Sodium (Synthroid) 137 mcg PO QHS [facility] Last Admin: 11/29/19 21:54 Dose: 137 mcg Documented by: Melatonin (Melatonin) 3 mg PO QHS PRN PRN PRN Reason: INSOMNIA Metoprolol Tartrate (Lopressor (Beta Mehran)) 150 mg PO QHS [facility] Last Admin: 11/29/19 21:49 Dose: 150 mg Documented by: Nutritional Formula (Lactose Free) (Ensure Enlive) 120 ml PO 4X/DAY [facility] Last Admin: 11/29/19 22:24 Dose: Not Given Documented by: Ondansetron HCl (Zofran) 4 mg IV Q8H PRN PRN PRN Reason: NAUSEA/VOMITING Last Admin: 11/29/19 05:22 Dose: 4 mg Documented by: Pentoxifylline (Trental) 400 mg PO QHS [facility] Last Admin: 11/29/19 21:49 Dose: 400 mg Documented by: Sodium Chloride () 10 - 40 ml IV UD PRN PRN Reason: SALINE FLUSH Last Admin: 11/28/19 23:51 Dose: 10 ml Documented by: Vancomycin HCl (Vancomycin Hcl) 500 mg PO Q6 [facility] Last Admin: 11/30/19 05:51 Dose: 500 mg Documented by: STROKE Vital Signs/Narrative: Vital Signs Temp Pulse Resp BP Pulse Ox 11/30/19 07:01 96 11/30/19 07:00 122 H 20 H 11/30/19 04:32 109 H 11/30/19 04:05 97.8 F 113 H 20 H 122/52 H 98 Medical Necessity - Tobacco Use Smoking Status: Never smoker Assessment/Plan All Active Problems Cellulitis of left leg (Acute) Diarrhea (Acute) 69 year old F with a significant PMHx of hypertension, hypothyroidism, depression admitted with 1 week history of diarrhea. 1. Acute C. Diff diarrhea, severe, WBC worsening at 23.2, Cr remains normal Will continue on po vancomycin, strict stool charting, supportive IVF 2. Hypokalemia secondary to #1, replaced, continue with replacement IVF 3. Tachycardia, sinus, h/o long standing tachycardia, slightly improved, Will maintain hydration 4. Chronic wound of the left leg, wound pictures in system, She has been following up with wound clinic Will be continued on Santyl per wound RN 5. Hypertension, controlled, continue on metoprolol 6. PAD, on Trental 7. Hypothyroidism, on Synthroid 8. Lung nodules seen on CT chest, follow-up in the outpatient 9. DVT prophylaxis - Lovenox SC. Code Visit Inpatient E&M: 52861 Subs Hosp L2
[2019-11-30 07:44] LABS: Absolute Lymphocyte Count 1.19 X10^3/uL (0.83-4.51); Absolute Neutrophil Count 20.7 X10^3/uL (2.0-7.7); Basophil# 0.06 X10^3/uL; Basophil% 0.3 % (0-1); Eosinophil# 0.08 X10^3/uL; Eosinophils% 0.3 % (0-5); Hematocrit 34.5 % (37-47); Hemoglobin 10.8 g/dL (12.0-15.0); Lymphocyte # 1.19 X10^3/ul (4.0); Lymphocyte % 5.1 % (19-41); Mean Corp Hgb Conc 31.3 g/dL (32-36); Mean Corpuscular Hgb 28.9 pg (27.0-32.0); Mean Corpuscular Volume 92.2 fL (81-99); Mean Platelet Vol. 8.5 fl (6.2-12.0); Monocyte# 0.92 X10^3/uL; NRBC Flagged by Analyzer 0 % (0-5); Neutrophil # 20.71 X10^3/uL (2.7-7.7); Neutrophil % 89.2 % (47-70); POSITIVE DIFFERENTIAL YES; Platelet Count 356 K/mm3 (150-450); RBC Distribution Width CV 13.6 % (11.6-14.6); RBC Distribution Width SD 46.4 fl (35.1-43.9); Red Blood Count 3.74 M/mm3 (4.2-5.4); White Blood Count 23.2 K/mm3 (4.4-11.0)
[2019-11-30 07:46] LABS: Differential Indicated SCAN CRITERIA MET
[2019-11-30 08:04] LABS: ALB/GLOB Ratio 0.5 RATIO (0.9-2.4); AST(SGOT) 25 U/L (15-37); Alanine Aminotransfer ALT/SGPT 15 U/L (13-56); Alkaline Phosphatase 89 U/L (45-117); Anion Gap 4 (5-15); BUN 7 mg/dL (7-18); BUN/Creat Ratio 12.1 RATIO (10-20); Calcium,Total 7.9 mg/dL (8.5-10.1); Chloride 112 mmol/L (98-107); Creatinine, Serum 0.58 mg/dL (0.55-1.02); EST Glomerular Filtration Rate 109 mL/min (>60); Est Glom Filt Rate - Afr Amer 132 mL/min (>60); Estimated Creatinine Clearance 54.17 ml/min; Globulin 3.8 g/dL (2.2-4.2); Glucose 104 mg/dL (74-106); Potassium 4.3 mmol/L (3.5-5.1); Protein, Total 5.8 g/dL (6.4-8.2); Sodium Level 139 mmol/L (136-145)
[2019-11-30 08:30] LABS: Differential Comment SCANNED; Platelet Estimate ADEQUATE (ADEQ); Red Cell Morphology NORM C+C NORMAL (NORM C&C)
[2019-11-30] MEDS: Collagenase 30gm Tube 1 APPLIC TOPICAL (08:36)
--- NOTE | 2019-11-30 09:15 | CASEMGMT ---
Social Work Note SW received call from Sanjuana at [facility] stating she is able to accept pt tomorrow. CAPRICE updated Sanjuana that as long as pt is medically cleared pt could discharge tomorrow but will keep her updated. Sanjuana states understanding. Plan: TBD pending how pt does with PT/OT. Pt was wanting to discharge home but may need SNF at discharge. [facility] is able to accept pt if pt is agreeable. Stella Landaverde LUMBER MATERIAL HANDLER, ANALOG DESIGN ENGINEER
[2019-11-30] MEDS: Menthol/Lanolin/Calamine/Znox 113 GM Tube 1 APPLIC TOPICAL ×2 (11:45→21:03)
[2019-11-30] MEDS: Enoxaparin 40 MG/0.4 ML Syringe SC (11:45)
--- NOTE | 2019-11-30 12:00 | CASEMGMT ---
SW spoke w/pt in room in regard to LW and POA forms. Pt's sister Gabriella is in the room. Gabriella states she is pt's POA and has the papers at home. SW gave pt the blank forms with the SW rack card, explained if she wants to update the forms at any time she can call to make an appointment and come in as an outpt. SW also asked pt about going to [facility], let her know that they can take her. Pt states maybe she will go. SW will continue to follow and will check back w/her in regard to going to [facility] at discharge. JOSE L Mccoy
--- NOTE | 2019-11-30 16:22 | EKG12_ITS ---
Test Reason : TACHY Blood Pressure : / mmHG Vent. Rate : 148 BPM Atrial Rate : 148 BPM P-R Int : 114 ms QRS Dur : 050 ms QT Int : 268 ms P-R-T Axes : 050 006 029 degrees QTc Int : 420 ms Sinus tachycardia Low voltage QRS Borderline ECG When compared with ECG of 29-NOV-2019 11:33, MANUAL COMPARISON REQUIRED, DATA IS UNCONFIRMED Confirmed by ANASTACIO OLIVARES, VENKAT ([id number]), index editor REMI SANDOVAL ([id number]) on 12/05/2019 12:19:33 PM Referred By: Confirmed By:VENKAT CHAVES MD
[2019-11-30 16:49] LABS: Magnesium 1.9 mg/dL (1.6-2.6); Thyroid Stim Hormone (TSH) 1.01 uIU/mL (0.358-3.74)
--- NOTE | 2019-11-30 17:09 | ECHOCS_ITS ---
Reason For Study: Sinus Tach Procedure This was a 2D Doppler, Color Flow transthoracic echocardiogram. The study was technically difficult. Contrast injection was performed. Exam performed portable in patient room. Left Ventricle Normal LV size. Left ventricular systolic function is normal. The estimated ejection fraction is 70 %. Unable to assess diastolic dysfunction. No regional wall motion abnormalities noted. Right Ventricle Normal RV size. Normal systolic function. Atria Normal left atrium. Normal right atrium. No doppler evidence for ASD. Mitral Valve There is no mitral annular calcification. Anterior leaflet diffuse mitral valve thickening. Trivial mitral valve insufficiency. Tricuspid Valve Normal tricuspid valve. Trivial tricuspid valve insufficiency. Unable to estimate RV systolic pressure/pulmonary artery pressure due to technically difficult study. Aortic Valve Trisinus/trileaflet aortic valve. Mild focal aortic valve calcification. Pulmonic Valve The pulmonic valve is not well visualized. Great Vessels The aortic root is not well visualized. Pericardium/Pleural Epicardial fat. No pericardial effusion. Medication Diluted definity 2ml given slow IV push to enhance endocardial definition. MMode/2D Measurements & Calculations LVIDd: 3.5 cm IVSd: 0.92 cm LAV(MOD-bp): 26.9 ml LVIDs: 2.8 cm LVPWd: 1.0 cm FS: 21.5 % LAV(MOD-bp) Indexed: 16.9 ml/m2 LAV(MOD-sp2): 30.6 ml LAV(MOD-sp4): 23.1 ml LA A4 area: 11.5 cm2 RA A4 area: 10.5 cm2 Doppler Measurements & Calculations Ao V2 max: 183.0 cm/sec LV V1 max: 128.7 cm/sec Ao max P.4 mmHg LV V1 max P.6 mmHg Interpretation Summary The study was technically difficult. Contrast injection was performed. Left ventricular systolic function is normal. The estimated ejection fraction is 70 %. Anterior leaflet diffuse mitral valve thickening. Trivial mitral valve insufficiency. Trivial tricuspid valve insufficiency. Mild focal aortic valve calcification. Epicardial fat. Unable to estimate RV systolic pressure/pulmonary artery pressure due to technically difficult study. Unable to assess diastolic dysfunction. Ordering Physician: Reina Holley Referring Physician: Boo Saunders Performed By: Rubio Mello RCS
--- NOTE | 2019-11-30 17:40 | RAD_ITS ---
STUDY: X-RAY CHEST REASON FOR EXAM: Female, 69 years old. wheezing TECHNIQUE: Single AP portable view of the chest. COMPARISON: May FINDINGS: The lungs are clear and expanded. There is no demonstrated pleural abnormality. Normal size heart. Normal mediastinum and jarvis. Normal visualized pulmonary arteries. There is atherosclerotic calcification of the aortic arch with tortuosity. There is demineralization of the osseous structures. Normal visualized ribs, clavicles, and shoulders. RAD/Chest 1 View (Portable) IMPRESSION: No demonstrated acute cardiopulmonary process. Electronically Signed: Carlos Navarro MD at 18:19 EST , Service support ,
[2019-11-30] MEDS: Magnesium Sulfate 1 GM in 0.9% Normal Saline 100 ML IV (18:15)
--- NOTE | 2019-11-30 18:57 | CON.PCM_ITS ---
Problem List (1) Tachycardia Status: Acute (2) MVP (mitral valve prolapse) Status: Chronic (3) Delayed wound healing Status: Chronic (4) C. difficile colitis Status: Acute (5) Thyroid disorder Status: Chronic Reason for Consult Date of Consultation: 11/30/19 History of Present Illness: The patient is a 69 year old white female with a past medical history, based upon her report, of what may be inappropriate sinus tachycardia, mitral valve prolapse, superimposed upon a left lower extremity wound-delayed healing year- old white, C. difficile colitis, who is referred for evaluation of sinus tachycardia. She states she he was evaluated by cardiology in [place], [place] many years ago for sinus tachycardia. She states that there was no definitive etiology. She was treated with medical management with beta-blockers. She states she has been on her beta-blockers without difficulty. She states she was also diagnosed with mitral valve prolapse/floppy mitral valve . She states that this was considered not a problem and she does not recall having any cardiovascular follow-up of it for quite some time. At home she notes, secondary to history of polio, that she does not walk. Her lower extremities are dependent and always edematous to some degree. She has had an issue with her left lower extremity/left foot which is required podiatry involvement/surgery. This is been slow to heal. She has been on antibiotic therapy. She notes approximately 2 weeks before arriving in the hospital she began to feel weak, her appetite declined, and she was having loose bowel movements. She subsequently presented to the hospital for further evaluation and is now been diagnosed with C. difficile colitis. She was placed in the hospital for further evaluation and care including IV fluids and alteration of her antibiotic therapy. During her hospitalization she has been noted to have evidence of sinus tachycardia. It appears that on 12/02/2002 an ECG from [facility] demonstrated she had sinus tachycardia at that time with a ventricular rate of approximately 115 bpm. On her ECG from yesterday she had sinus tachycardia with a ventricular rate of approximately 140 bpm. Her ECGs were repeated today that demonstrated similar type findings. There did not appear to be any acute electrocardiographic changes. During this time she has not been found to be hypotensive. She has also undergone evaluation with chest x-ray since her admission. She does not appear to have any definitive acute changes on her chest x-ray based upon initial evaluation. She also had a chest CT scan performed. Cording to the radiology report there were no acute findings. She has denied ongoing chest discomfort. She notes since being in the hospital she has felt somewhat more short of breath, wheezy, and her family states her lungs have sounded somewhat junky . She has denied any history of pulmonary disease in the past that she is aware of. She states she does have a history of a thyroid disorder. She states this is followed by her primary care physician. Otherwise she denies any other recent acute issues. There is been no obvious orthopnea or PND at home. She has had no near syncope or syncope. [] Past Medical History Allergies/Adverse Reactions: Allergies naproxen [From Naprosyn] Allergy (Verified 11/28/19 18:05) Rash amoxicillin Adverse Reaction (Verified 11/28/19 18:05) Rash cephalexin [From Keflex] Adverse Reaction (Verified 11/28/19 18:05) Rash clotrimazole [From Lotrimin] Adverse Reaction (Verified 11/28/19 18:05) Rash diphenhydramine [From Benadryl] Adverse Reaction (Verified 11/28/19 18:05) Rash griseofulvin Adverse Reaction (Verified 11/28/19 18:05) Rash ibuprofen [From Motrin] Adverse Reaction (Verified 11/28/19 18:05) Rash miconazole [From Monistat 1 Combo Pack] Adverse Reaction (Verified 11/28/19 18:05) Rash propranolol [From Inderal LA] Adverse Reaction (Verified 11/28/19 18:05) Rash rofecoxib [From Vioxx] Adverse Reaction (Verified 11/28/19 18:05) Rash Sulfa (Sulfonamide Antibiotics) Adverse Reaction (Verified 11/28/19 18:08) Rash Home Medications: Ambulatory Orders Medication Instructions Recorded Aspirin E.C. [Ecotrin] 81 mg PO QHS 11/28/19 Doxepin HCl [Sinequan] 10 mg PO QHS 11/28/19 Furosemide [Lasix] 40 mg PO PRN PRN 11/28/19 Levothyroxine [Synthroid] 137 mcg PO QHS 11/28/19 Metoprolol Tartrate [Lopressor 150 mg PO QHS 11/28/19 (Beta Mehran)] Pentoxifylline [Trental] 400 mg PO DAILY 11/28/19 Simvastatin [Zocor] 40 mg PO QHS 11/28/19 Past Medical History (Chronic Problems): Chronic Problems Ulcer of left lower extremity with fat layer exposed (Chronic) Delayed wound healing (Chronic) Venous insufficiency (Chronic) left Greater saphenous vein Other specified peripheral vascular diseases (Chronic) bilateral lower extremity Left leg pain (Chronic) Leg edema, left (Chronic) MVP (mitral valve prolapse) (Chronic) Thyroid disorder (Chronic) Surgical History: - - Surgery of legs because of polio - *Family History Maternal History Items: Heart Disease Paternal History Items: Heart Disease Lives: Spouse/ Significant Other Smoking Status: Never smoker Alcohol: Occasional Review of Systems - Review of Systems General: Reports: Fatigue, Decreased Appetite. Denies: Fever, Night Sweats Cardiovascular: Reports: Shortness of Breath. Denies: Chest Discomfort, Orthopnea, PND, Peripheral Edema, Palpitations, Lightheadedness, Dizziness, Near Syncope, Syncope Respiratory: Reports: Shortness of Breath, Wheezing. Denies: Cough, Sputum Production, Hemoptysis Gastrointestinal: Reports: Abdominal Discomfort, Diarrhea. Denies: Hematemesis, Hematochezia, Melena Genitourinary: Denies: Dysuria, Hematuria Skin: Denies: Rash Subjectve: This is a 69-year-old tired appearing white female who appears to be in no acute distress at this time. Objective: Vital Signs Temp Pulse Resp BP Pulse Ox 98.9 F 130 H 20 H 135/61 H 97 11/30/19 15:50 11/30/19 15:50 11/30/19 15:50 11/30/19 15:50 11/30/19 15:50 Oxygen Flow Rate (L/min) 2 Oxygen Delivery Method Nasal Cannula Weight: 146 lb 9.718 oz Body Mass Index (BMI) 30.6 Intake and Output for Last 24 Hours 11/28/19 11/29/19 11/30/19 23:59 23:59 23:59 Intake Total 1000 / 1000 3213.33 / 3413.33 4545 / 4545 Output Total 200 / 200 Balance 1000 / 1000 3013.33 / 3213.33 4545 / 4545 General: Awake, Alert, Oriented x 3, Cooperative HEENT: Atraumatic, Normocephalic, PERRL, EOMI, Sclera Non Icteric Oral: Moist Mucosa Neck: Supple, Good ROM, No JVD Lungs: Rhonchi Cardiovascular: Regular Rhythm, Normal S1, Normal S2 Abdomen: Bowel Sounds Present, Soft, Non Tender Extremities: Mild RLE Edema, Mild LLE Edema, - - Left lower extremity/foot: Currently in a surgical wrap Psych/Mental Status: Appropriate 11/30/19 07:31: WBC 23.2 H, RBC 3.74 L, Hgb 10.8 L, Hct 34.5 L, MCV 92.2, MCH 28.9, MCHC 31.3 L, Plt Count 356, MPV 8.5, Immature Gran % (Auto) 1.100 H, Neut % (Auto) 89.2 H, Lymph % (Auto) 5.1 L, Letcher % (Auto) 4.0, Eos % (Auto) 0.3, Baso % (Auto) 0.3, Absolute Neuts (auto) 20.7 H, Nucleated RBC % 0 11/30/19 07:31: Sodium 139, Potassium 4.3, Chloride 112 H, Carbon Dioxide 23.0, Anion Gap 4 L, BUN 7, Creatinine 0.58, Est GFR (MDRD) Af Amer 132, Est GFR (MDRD) Non-Af 109, BUN/Creatinine Ratio 12.1, Glucose 104, Calcium 7.9 L, Total Bilirubin 0.20 11/30/19 07:31: Magnesium 1.9 Rhythm: Sinus rhythm/sinus tachycardia EKG: As noted above CXR: As noted above Chest CT Scan: As noted above Assessment/Plan 1. Sinus tachycardia The patient has a history of sinus tachycardia which based upon her report may have been diagnosed with inappropriate sinus tachycardia for which she has been treated with beta-mehran therapy. At the moment she has had sinus tachycardia which may be exacerbated by her underlying conditions including her multiple infectious disease related issues with respect to her left foot and her C. difficile colitis. So, based upon her concerns of feeling somewhat more short of breath and requiring oxygen therapy there may be a concern with respect to her volume status and her pulmonary status. Her pulmonary evaluation does suggest rhonchi. Her chest x-ray does not appear to suggest any acute changes at this time. She also underwent evaluation with a chest CT scan that did not appear to demonstrate any acute pathology which would contribute to her sinus tachycardia. At the moment she does not describe acute cardiovascular symptoms. Her electrocardiogram does not demonstrate any acute electrocardiographic changes. An echocardiogram has been requested. At the moment her sinus tachycardia may be secondary to her other multiple medical conditions. Thus it appears appropriate to attempt to treat her other multiple medical conditions as best as possible. This includes her ongoing IV antibiotic therapy. She has received IV fluids although this may be decreased, as she has not hypotensive, and attempt to avoid volume overload. She has remained on beta-mehran therapy. She has tolerated it thus far. Depending upon her course her beta-mehran therapy may need to be adjusted. 2. Mitral valve prolapse She does have a history of mitral valve prolapse. At the present time she will be assessed with an echocardiogram. This should help assess her mitral valve anatomy and physiology as well as her overall cardiac size and function. 3. Left lower extremity wound-delayed healing She continues to be followed by her multiple other physicians for this. Again this issue could be a contributing factor to her elevated heart rate. 4. C. difficile colitis Again she does have C. difficile colitis. This certainly can be a contributing factor to her elevated heart rate. She is receiving medical management with antibiotics. She is receiving IV fluids based upon her frequent loose bowel movements. However it may not be unreasonable to decrease her IV fluid rate, as she is not hypotensive, to minimize volume overload that may compromise her pulmonary status. 5. Thyroid disorder The patient does have a thyroid disorder. Her TSH appear to be within normal range. However her daughter states that at times her TSH has been within normal range however her other thyroid parameters have been abnormal that have required further evaluation care. Thus would not be unreasonable to pursue additional thyroid studies as part of her evaluation of her sinus tachycardia. Comment: The above was discussed and reviewed with the patient, her , and her daughters present. This note was generated using a voice recognition system and there may be incorrect words, spelling or punctuation that were not noted when reviewing the office note prior to saving.
[2019-11-30] MEDS: Ipratropium 0.5 MG/2.5 ML SOLUTION INHALATION ×2 (19:45→23:43)
[2019-11-30] MEDS: Doxepin Hydrochloride 10 MG Capsule PO (21:01)
[2019-11-30] MEDS: Aspirin E.C. 81 MG Tablet PO (21:01)
[2019-11-30] MEDS: Levothyroxine 137 MCG Tablet PO (21:01)
[2019-11-30] MEDS: Atorvastatin Calcium 20 MG Tablet PO (21:01)
[2019-11-30] MEDS: Metoprolol Tartrate 50 MG Tablet 150 MG PO (21:01)
[2019-11-30 21:03] LABS: Free T3 0.7 pg/mL (2.18-3.98); T4 Free Direct 1.43 ng/dL (0.76-1.46)
[2019-11-30] MEDS: Pentoxifylline 400 MG Tablet PO (21:04)
[2019-12-01] VITALS (16 sets, daily range): BP systolic 107–132; BP diastolic 53–63; PULSE 70–132; RESP 18–20; TEMP 36.6–37; O2SAT 92–96
[2019-12-01] MEDS: Ipratropium 0.5 MG/2.5 ML SOLUTION INHALATION ×5 (03:19→19:45)
[2019-12-01] MEDS: Vancomycin HCl 250 MG Capsule 500 MG PO ×4 (05:02→23:05)
[2019-12-01 05:41] LABS: Absolute Lymphocyte Count 1.18 X10^3/uL (0.83-4.51); Absolute Neutrophil Count 14.6 X10^3/uL (2.0-7.7); Basophil# 0.05 X10^3/uL; Basophil% 0.3 % (0-1); Eosinophil# 0.78 X10^3/uL; Eosinophils% 4.5 % (0-5); Hematocrit 32.1 % (37-47); Hemoglobin 9.9 g/dL (12.0-15.0); Lymphocyte # 1.18 X10^3/ul (4.0); Lymphocyte % 6.8 % (19-41); Mean Corp Hgb Conc 30.8 g/dL (32-36); Mean Corpuscular Hgb 28.4 pg (27.0-32.0); Mean Corpuscular Volume 92.2 fL (81-99); Mean Platelet Vol. 8.5 fl (6.2-12.0); NRBC Flagged by Analyzer 0 % (0-5); Neutrophil # 14.55 X10^3/uL (2.7-7.7); Neutrophil % 83.7 % (47-70); Platelet Count 328 K/mm3 (150-450); RBC Distribution Width SD 47.7 fl (35.1-43.9); Red Blood Count 3.48 M/mm3 (4.2-5.4); White Blood Count 17.4 K/mm3 (4.4-11.0)
[2019-12-01 06:12] LABS: ALB/GLOB Ratio 0.5 RATIO (0.9-2.4); AST(SGOT) 24 U/L (15-37); Alanine Aminotransfer ALT/SGPT 13 U/L (13-56); Albumin, Serum 1.7 g/dL (3.2-5.0); Alkaline Phosphatase 83 U/L (45-117); Anion Gap 3 (5-15); BUN 3 mg/dL (7-18); BUN/Creat Ratio 6.8 RATIO (10-20); Calcium,Total 7.9 mg/dL (8.5-10.1); Chloride 110 mmol/L (98-107); Creatinine, Serum 0.44 mg/dL (0.55-1.02); EST Glomerular Filtration Rate 150 mL/min (>60); Est Glom Filt Rate - Afr Amer 182 mL/min (>60); Estimated Creatinine Clearance 54.17 ml/min; Globulin 3.6 g/dL (2.2-4.2); Glucose 96 mg/dL (74-106); Potassium 4.3 mmol/L (3.5-5.1); Protein, Total 5.3 g/dL (6.4-8.2); Sodium Level 137 mmol/L (136-145)
--- NOTE | 2019-12-01 07:27 | PN_ITS ---
Patient Problems: Active and Suspected Problems Diarrhea (Acute) Tachycardia (Acute) C. difficile colitis (Acute) Reason for Visit: Follow-up on Acute C. diff colitis Subjective: Patient was seen and examined. Denied any new complaints. Her heart rate is in the 110s. She has had 1 bowel movement overnight. Denied any fever or chills. Still feels fatigued. Objective: Physical exam: General: Alert, Oriented x3, Cooperative, No apparent distress, - - Looks frail HEENT: Atraumatic, PERRLA, EOMI, Normocephalic Oral: Moist Mucosa Neck: Supple Lungs: Clear to auscultation, Normal air movement Cardiovascular: Regular rate, Regular Rhythm, Normal S1, Normal S2, No murmurs Abdomen: Bowel Sounds Present, Soft, Non Tender, Non-Distended, No Hepato- splenomegaly Extremities: Edema - bilaterally, +2-3, left montes de oca dressing in place, wound pictures in system Skin: - - see wound picture Musculoskeletal: No Tenderness to Palpation of Joints or Extremities Lymphatic: No Cervical, Supraclavicular, or Inguinal Adenopathy Neurological: Cranial nerves II-XII grossly intact Psych/Mental Status: Normal Affect, Appropriate Vitals/I&O's: Vital Signs Temp Pulse Resp BP Pulse Ox 98.2 F 108 H 20 H 107/53 L 96 12/01/19 05:00 12/01/19 07:12 12/01/19 07:12 12/01/19 05:00 12/01/19 07:12 Oxygen Flow Rate (L/min) 1 Oxygen Delivery Method Nasal Cannula Weight: 66.5 kg Body Mass Index (BMI) 30.6 Intake and Output for Last 24 Hours 11/29/19 11/30/19 12/01/19 23:59 23:59 23:59 Intake Total 3213.33 / 3413.33 4738.67 / 5538.67 1598.33 / 1598.33 Output Total 200 / 200 Balance 3013.33 / 3213.33 4738.67 / 5538.67 1598.33 / 1598.33 Microbiology Past 72 Hours 11/29/19 22:37 Nasal Secretion Influenza Types A,B Direct FA (PATSY) - Final 11/29/19 03:46 Stool Enteric Bacteriology - Final 11/29/19 03:46 Stool C. difficile GDH Antigen & Toxins - Final Toxigenic C. difficile 11/29/19 03:46 Stool C. difficile DNA Amplification - Final Laboratory Results 11/30/19 07:31: WBC 23.2 H, RBC 3.74 L, Hgb 10.8 L, Hct 34.5 L, MCV 92.2, MCH 28.9, MCHC 31.3 L, RDW Std Deviation 46.4 H, RDW Coeff of Naseem 13.6, Plt Count 356, MPV 8.5, Immature Gran % (Auto) 1.100 H, Neut % (Auto) 89.2 H, Lymph % (Auto) 5.1 L, Mcculloch % (Auto) 4.0, Eos % (Auto) 0.3, Baso % (Auto) 0.3, Absolute Neuts (auto) 20.7 H, Absolute Lymphs (auto) 1.19, Nucleated RBC % 0, Differential Comment SCANNED, Platelet Estimate ADEQUATE, RBC Morphology NORM C+C 11/30/19 07:31: Sodium 139, Potassium 4.3, Chloride 112 H, Carbon Dioxide 23.0, Anion Gap 4 L, BUN 7, Creatinine 0.58, Estim Creat Clear Calc 54.17, Est GFR (MDRD) Af Amer 132, Est GFR (MDRD) Non-Af 109, BUN/Creatinine Ratio 12.1, Glucose 104, Calcium 7.9 L, Total Bilirubin 0.20, AST 25, ALT 15, Alkaline Phosphatase 89, Total Protein 5.8 L, Albumin 2.0 L, Globulin 3.8, Albumin/Globulin Ratio 0.5 L 11/30/19 07:31: Magnesium 1.9, TSH 1.01 11/30/19 07:31: Free T4 1.43, Free T3 pg/dL 0.7 L 12/01/19 05:30: WBC 17.4 H, RBC 3.48 L, Hgb 9.9 L, Hct 32.1 L, MCV 92.2, MCH 28.4, MCHC 30.8 L, RDW Std Deviation 47.7 H, RDW Coeff of Naseem 14.0, Plt Count 328, MPV 8.5, Immature Gran % (Auto) 0.700, Neut % (Auto) 83.7 H, Lymph % (Auto) 6.8 L, Mcculloch % (Auto) 4.0, Eos % (Auto) 4.5, Baso % (Auto) 0.3, Absolute Neuts (auto) 14.6 H, Absolute Lymphs (auto) 1.18, Nucleated RBC % 0 12/01/19 05:30: Sodium 137, Potassium 4.3, Chloride 110 H, Carbon Dioxide 24.0, Anion Gap 3 L, BUN 3 L, Creatinine 0.44 L, Estim Creat Clear Calc 54.17, Est GFR (MDRD) Af Amer 182, Est GFR (MDRD) Non-Af 150, BUN/Creatinine Ratio 6.8 L, Glucose 96, Calcium 7.9 L, Total Bilirubin 0.30, AST 24, ALT 13, Alkaline Phosphatase 83, Total Protein 5.3 L, Albumin 1.7 L, Globulin 3.6, Albumin/Globulin Ratio 0.5 L Current Medications Acetaminophen (Tylenol) 650 mg PO Q6H PRN PRN PRN Reason: Pain Score 1-10/Temp > 100.7 F Albuterol Sulfate (Ventolin Aerosols) 2.5 mg INHALATION Q2H PRN PRN PRN Reason: WHEEZING Aspirin (Ecotrin) 81 mg PO QHS [facility] Last Admin: 11/30/19 21:01 Dose: 81 mg Documented by: Atorvastatin Calcium (Lipitor) 20 mg PO QHS [facility] Last Admin: 11/30/19 21:01 Dose: 20 mg Documented by: Calamine/Phenol (Calmoseptine Ointment) 1 applic TOPICAL BID [facility]; Protocol Last Admin: 11/30/19 21:03 Dose: 1 applicatio Documented by: Collagenase (Santyl) 1 applic TOPICAL DAILY [facility]; Protocol Last Admin: 11/30/19 08:36 Dose: 1 applicatio Documented by: Doxepin HCl (Sinequan) 10 mg PO QHS [facility] Last Admin: 11/30/19 21:01 Dose: 10 mg Documented by: Enoxaparin Sodium (Lovenox) 40 mg SC DAILY [facility] Last Admin: 11/30/19 11:45 Dose: 40 mg Documented by: Glucagon () 1 mg IM .X1 PRN PRN Reason: Hypoglycemia Sodium Chloride () 250 mls @ 15 mls/hr IV .[id number] PRN PRN Reason: Saline Flush Sodium Chloride () 250 mls @ 15 mls/hr IV .[id number] PRN PRN Reason: Additional IVPB Infusion Dextrose (Dextrose 10%-Water) 250 mls @ 999 mls/hr IV .Q16M PRN; Protocol PRN Reason: HYPOGLYCEMIA Potassium Chloride/Sodium Chloride () 1,000 mls @ 75 mls/hr IV .[id number] [facility] Last Admin: 12/01/19 02:21 Dose: 75 mls/hr Documented by: Ipratropium Seney (Atrovent) 0.5 mg INHALATION Q4H.RT [facility] Last Admin: 12/01/19 07:11 Dose: 0.5 mg Documented by: Levothyroxine Sodium (Synthroid) 137 mcg PO QHS [facility] Last Admin: 11/30/19 21:01 Dose: 137 mcg Documented by: Melatonin (Melatonin) 3 mg PO QHS PRN PRN PRN Reason: INSOMNIA Metoprolol Tartrate (Lopressor (Beta Mehran)) 150 mg PO QHS [facility] Last Admin: 11/30/19 21:01 Dose: 150 mg Documented by: Nutritional Formula (Lactose Free) (Ensure Enlive) 120 ml PO 4X/DAY [facility] Last Admin: 11/30/19 21:05 Dose: Not Given Documented by: Ondansetron HCl (Zofran) 4 mg IV Q8H PRN PRN PRN Reason: NAUSEA/VOMITING Last Admin: 11/29/19 05:22 Dose: 4 mg Documented by: Pentoxifylline (Trental) 400 mg PO QHS [facility] Last Admin: 11/30/19 21:04 Dose: 400 mg Documented by: Sodium Chloride () 10 - 40 ml IV UD PRN PRN Reason: SALINE FLUSH Last Admin: 11/28/19 23:51 Dose: 10 ml Documented by: Vancomycin HCl (Vancomycin Hcl) 500 mg PO Q6 [facility] Last Admin: 12/01/19 05:02 Dose: 500 mg Documented by: STROKE Vital Signs/Narrative: Vital Signs Temp Pulse Resp BP Pulse Ox 12/01/19 07:12 108 H 20 H 96 12/01/19 05:00 98.2 F 106 H 18 107/53 L 96 Medical Necessity - Tobacco Use Smoking Status: Never smoker Assessment/Plan All Active Problems Cellulitis of left leg (Acute) Diarrhea (Acute) Tachycardia (Acute) C. difficile colitis (Acute) 69 year old F with a significant PMHx of hypertension, hypothyroidism, depression admitted with diarrhea. 1. Acute C. Diff diarrhea, severe, WBC slightly improved at 17.4 from 23.2, Cr remains normal Will continue on po vancomycin, strict stool charting 2. Hypokalemia secondary to #1, replaced 3. Tachycardia, sinus, h/o long standing tachycardia, slightly improved, TSH normal, FT4 normal, FT3 slightly low Cardiology consulted; metoprolol XL 150mg changed to metoprolol 50mg po bid Will continue to follow 4. Hypomagnesemia, Mg was 1.9 yesterday, 2.2 today, will monitor 5. Malnutrition, moderate, funds development director consulted, continue per recommendation 6. Chronic wound of the left leg, wound pictures in system, She has been following up with wound clinic Will be continued on Santyl per wound RN 7. Hypertension, controlled, continue on metoprolol 8. PAD, on Trental 9. Hypothyroidism, on Synthroid 10. Lung nodules seen on CT chest, follow-up in the outpatient 11. DVT prophylaxis - Lovenox SC. Code Visit Inpatient E&M: 43077 Subs Hosp L2
[2019-12-01 07:41] LABS: Magnesium 2.2 mg/dL (1.6-2.6)
--- NOTE | 2019-12-01 09:14 | PN.CARD_ITS ---
Subjectve: The patient denies chest pain or worsening shortness of breath. She states she is still tired and fatigued. Objective: Vital Signs Temp Pulse Resp BP Pulse Ox 98.2 F 70 20 H 107/53 L 96 12/01/19 05:00 12/01/19 08:36 12/01/19 07:12 12/01/19 05:00 12/01/19 07:12 Oxygen Flow Rate (L/min) 1 Oxygen Delivery Method Nasal Cannula Weight: 146 lb 9.718 oz Body Mass Index (BMI) 30.6 Intake and Output for Last 24 Hours 11/29/19 11/30/19 12/01/19 23:59 23:59 23:59 Intake Total 3213.33 / 3413.33 4738.67 / 5538.67 1598.33 / 1598.33 Output Total 200 / 200 Balance 3013.33 / 3213.33 4738.67 / 5538.67 1598.33 / 1598.33 General: Awake, Alert, Oriented x 3, Cooperative, No Acute Distress HEENT: Atraumatic, Normocephalic, PERRL, EOMI, Sclera Non Icteric Oral: Moist Mucosa Neck: Supple, Good ROM, No JVD Lungs: Expiratory Wheezes-Shane Cardiovascular: Regular Rhythm, Normal S1, Normal S2 Abdomen: Bowel Sounds Present, Soft Extremities: Mild RLE Edema, Mild LLE Edema Psych/Mental Status: Appropriate 11/30/19 07:31: Magnesium 1.9 12/01/19 05:30: WBC 17.4 H, RBC 3.48 L, Hgb 9.9 L, Hct 32.1 L, MCV 92.2, MCH 28.4, MCHC 30.8 L, Plt Count 328, MPV 8.5, Immature Gran % (Auto) 0.700, Neut % (Auto) 83.7 H, Lymph % (Auto) 6.8 L, [place] % (Auto) 4.0, Eos % (Auto) 4.5, Baso % (Auto) 0.3, Absolute Neuts (auto) 14.6 H, Nucleated RBC % 0 12/01/19 05:30: Sodium 137, Potassium 4.3, Chloride 110 H, Carbon Dioxide 24.0, Anion Gap 3 L, BUN 3 L, Creatinine 0.44 L, Est GFR (MDRD) Af Amer 182, Est GFR (MDRD) Non-Af 150, BUN/Creatinine Ratio 6.8 L, Glucose 96, Calcium 7.9 L, Total Bilirubin 0.30 12/01/19 05:30: Magnesium 2.2 Rhythm: Sinus rhythm/sinus tachycardia Medical Necessity - Tobacco Use Smoking Status: Never smoker Assessment/Plan 1. Sinus tachycardia The patient has a history of sinus tachycardia which based upon her report may have been diagnosed with inappropriate sinus tachycardia for which she has been treated with beta-stefany therapy. At the moment she has had sinus tachycardia which may be exacerbated by her underlying conditions including her multiple infectious disease related issues with respect to her left foot and her C. difficile colitis. So, based upon her concerns of feeling somewhat more short of breath and requiring oxygen therapy there may be a concern with respect to her volume status and her pulmonary status. Her pulmonary evaluation does suggest rhonchi. Her chest x-ray does not appear to suggest any acute changes at this time. She also underwent evaluation with a chest CT scan that did not appear to demonstrate any acute pathology which would contribute to her sinus tachycardia. At the moment she does not describe acute cardiovascular symptoms. Her electro cardiogram does not demonstrate any acute electrocardiographic changes. An echocardiogram has been requested. She will continue to be monitored. Her beta-stefany dose will be adjusted to a twice daily format in attempt to provide a more balanced medication maintenance level. 2. Mitral valve prolapse She does have a history of mitral valve prolapse. At the present time she will be assessed with an echocardiogram. This should help assess her mitral valve anatomy and physiology as well as her overall cardiac size and function. 3. Left lower extremity wound-delayed healing She continues to be followed by her multiple other physicians for this. Again this issue could be a contributing factor to her elevated heart rate. 4. C. difficile colitis Again she does have C. difficile colitis. This certainly can be a contributing factor to her elevated heart rate. She is receiving medical management with antibiotics. She is receiving IV fluids based upon her frequent loose bowel movements. However it may not be unreasonable to decrease her IV fluid rate, as she is not hypotensive, to minimize volume overload that may compromise her pulmonary status. 5. Thyroid disorder Her thyroid levels were reviewed. Her T3 level is low. Her PCP can address these thyroid levels as deemed appropriate. This note was generated using a voice recognition system and there may be incorrect words, spelling or punctuation that were not noted when reviewing the office note prior to saving.
[2019-12-01] MEDS: Metoprolol Tartrate 50 MG Tablet PO ×2 (09:59→22:42)
[2019-12-01] MEDS: Enoxaparin 40 MG/0.4 ML Syringe SC (09:59)
[2019-12-01] MEDS: Menthol/Lanolin/Calamine/Znox 113 GM Tube 1 APPLIC TOPICAL ×2 (09:59→22:42)
[2019-12-01] MEDS: Collagenase 30gm Tube 1 APPLIC TOPICAL (10:00)
--- NOTE | 2019-12-01 10:05 | CASEMGMT ---
Addendum entered by Stella Landaverde 12/01/19 11:51: SW back in to speak with pt. Pt agreeable to going to [facility]. Plan: [facility] once medically cleared Original Note: Social Work Note Pt is not medically cleared for discharge today. SW placed a call to Sanjuana at [facility] and updated her that pt will not be discharged today. SW completed convalescent 7000 in HENS and placed on pt's chart. Green sheet and transport form on pt's chart. SW in to speak with pt. Pt states that she is doing better. Pt states agreeable to [facility] but also states she may decide to return home at discharge. SW informed pt that [facility] is able to accept pt whenever she is medically cleared if she decides she needs to go to SNF. Pt states understanding. Plan: Likely [facility] at discharge. Pt appears agreeable to [facility] but states she may decide to return home. PT/OT will work with pt today. Stella Landaverde STEAM DRIER OPERATOR, WAISTBAND SETTER
[2019-12-01] MEDS: Aspirin E.C. 81 MG Tablet PO (22:42)
[2019-12-01] MEDS: Doxepin Hydrochloride 10 MG Capsule PO (22:42)
[2019-12-01] MEDS: Levothyroxine 137 MCG Tablet PO (22:42)
[2019-12-01] MEDS: Pentoxifylline 400 MG Tablet PO (22:43)
[2019-12-01] MEDS: Atorvastatin Calcium 20 MG Tablet PO (22:43)
[2019-12-02] VITALS (13 sets, daily range): BP systolic 124–145; BP diastolic 56–67; PULSE 84–128; RESP 18–20; TEMP 36.5–36.9; O2SAT 95–99
[2019-12-02] MEDS: Vancomycin HCl 250 MG Capsule 500 MG PO ×4 (05:45→23:02)
[2019-12-02 07:15] LABS: Absolute Lymphocyte Count 1.15 X10^3/uL (0.83-4.51); Absolute Neutrophil Count 11.4 X10^3/uL (2.0-7.7); Basophil# 0.05 X10^3/uL; Basophil% 0.4 % (0-1); Eosinophil# 0.78 X10^3/uL; Eosinophils% 5.5 % (0-5); Hematocrit 36.2 % (37-47); Hemoglobin 11.2 g/dL (12.0-15.0); Lymphocyte # 1.15 X10^3/ul (4.0); Lymphocyte % 8.1 % (19-41); Mean Corp Hgb Conc 30.9 g/dL (32-36); Mean Corpuscular Hgb 28.6 pg (27.0-32.0); Mean Corpuscular Volume 92.6 fL (81-99); Mean Platelet Vol. 8.9 fl (6.2-12.0); Monocyte# 0.74 X10^3/uL; Monocyte% 5.2 % (0-10); NRBC Flagged by Analyzer 0 % (0-5); Neutrophil # 11.41 X10^3/uL (2.7-7.7); Platelet Count 382 K/mm3 (150-450); RBC Distribution Width CV 13.9 % (11.6-14.6); RBC Distribution Width SD 47.3 fl (35.1-43.9); Red Blood Count 3.91 M/mm3 (4.2-5.4); White Blood Count 14.3 K/mm3 (4.4-11.0)
[2019-12-02 07:54] LABS: ALB/GLOB Ratio 0.5 RATIO (0.9-2.4); AST(SGOT) 22 U/L (15-37); Alanine Aminotransfer ALT/SGPT 15 U/L (13-56); Albumin, Serum 1.9 g/dL (3.2-5.0); Alkaline Phosphatase 95 U/L (45-117); Anion Gap 4 (5-15); BUN 2 mg/dL (7-18); BUN/Creat Ratio 4.8 RATIO (10-20); Calcium,Total 8.3 mg/dL (8.5-10.1); Chloride 108 mmol/L (98-107); Creatinine, Serum 0.41 mg/dL (0.55-1.02); EST Glomerular Filtration Rate 161 mL/min (>60); Est Glom Filt Rate - Afr Amer 194 mL/min (>60); Estimated Creatinine Clearance 54.17 ml/min; Globulin 3.7 g/dL (2.2-4.2); Glucose 96 mg/dL (74-106); Potassium 3.8 mmol/L (3.5-5.1); Protein, Total 5.6 g/dL (6.4-8.2); Sodium Level 138 mmol/L (136-145)
[2019-12-02] MEDS: Ipratropium 0.5 MG/2.5 ML SOLUTION INHALATION (10:34)
--- NOTE | 2019-12-02 11:01 | PN_ITS ---
Patient Problems: Active and Suspected Problems Diarrhea (Acute) Tachycardia (Acute) C. difficile colitis (Acute) Reason for Visit: Follow-up on Acute C. diff Subjective: Patient was seen and examined. Feels slightly improved. She had multiple stools last night, maybe getting formed. Denies fever or chills Objective: Physical exam: General: Alert, Oriented x3, Cooperative, No apparent distress, - - Looks frail HEENT: Atraumatic, PERRLA, EOMI, Normocephalic Oral: Moist Mucosa Neck: Supple Lungs: Clear to auscultation, Normal air movement Cardiovascular: Regular rate, Regular Rhythm, Normal S1, Normal S2, No murmurs Abdomen: Bowel Sounds Present, Soft, Non Tender, Non-Distended, No Hepato- splenomegaly Extremities: Edema - bilaterally, +2-3, left montes de oca dressing in place, wound pictures in system Skin: - - see wound picture Musculoskeletal: No Tenderness to Palpation of Joints or Extremities Lymphatic: No Cervical, Supraclavicular, or Inguinal Adenopathy Neurological: Cranial nerves II-XII grossly intact Psych/Mental Status: Normal Affect, Appropriate Vitals/I&O's: Vital Signs Temp Pulse Resp BP Pulse Ox 98.4 F 109 H 18 124/63 H 95 12/02/19 04:30 12/02/19 08:34 12/02/19 04:30 12/02/19 04:30 12/02/19 04:30 Oxygen Flow Rate (L/min) 1 Oxygen Delivery Method Nasal Cannula Weight: 66.5 kg Body Mass Index (BMI) 30.6 Intake and Output for Last 24 Hours 11/30/19 12/01/19 12/02/19 23:59 23:59 23:59 Intake Total 4738.67 / 5538.67 3103.33 / 3103.33 Balance 4738.67 / 5538.67 3103.33 / 3103.33 Microbiology Past 72 Hours 11/28/19 19:55 Blood Culture (Wb) - Anticubital Right Blood Culture - Preliminary No growth in 48 hours. 11/28/19 19:07 Blood Culture (Wb) - Anticubital Left Blood Culture - Preliminary No growth in 48 hours. 11/29/19 22:37 Nasal Secretion Influenza Types A,B Direct FA (PATSY) - Final 11/29/19 03:46 Stool Enteric Bacteriology - Final 11/29/19 03:46 Stool C. difficile GDH Antigen & Toxins - Final Toxigenic C. difficile 11/29/19 03:46 Stool C. difficile DNA Amplification - Final Laboratory Results 12/02/19 06:21: WBC 14.3 H, RBC 3.91 L, Hgb 11.2 L, Hct 36.2 L, MCV 92.6, MCH 28.6, MCHC 30.9 L, RDW Std Deviation 47.3 H, RDW Coeff of Naseem 13.9, Plt Count 382, MPV 8.9, Immature Gran % (Auto) 0.800, Neut % (Auto) 80.0 H, Lymph % (Auto) 8.1 L, Smith % (Auto) 5.2, Eos % (Auto) 5.5 H, Baso % (Auto) 0.4, Absolute Neuts (auto) 11.4 H, Absolute Lymphs (auto) 1.15, Nucleated RBC % 0 12/02/19 06:21: Sodium 138, Potassium 3.8, Chloride 108 H, Carbon Dioxide 26.0, Anion Gap 4 L, BUN 2 L, Creatinine 0.41 L, Estim Creat Clear Calc 54.17, Est GFR (MDRD) Af Amer 194, Est GFR (MDRD) Non-Af 161, BUN/Creatinine Ratio 4.8 L, Glucose 96, Calcium 8.3 L, Total Bilirubin 0.30, AST 22, ALT 15, Alkaline Phosphatase 95, Total Protein 5.6 L, Albumin 1.9 L, Globulin 3.7, Albumin/Globulin Ratio 0.5 L Current Medications Acetaminophen (Tylenol) 650 mg PO Q6H PRN PRN PRN Reason: Pain Score 1-10/Temp > 100.7 F Albuterol Sulfate (Ventolin Aerosols) 2.5 mg INHALATION Q2H PRN PRN PRN Reason: WHEEZING Aspirin (Ecotrin) 81 mg PO QHS [facility] Last Admin: 12/01/19 22:42 Dose: 81 mg Documented by: Atorvastatin Calcium (Lipitor) 20 mg PO QHS [facility] Last Admin: 12/01/19 22:43 Dose: 20 mg Documented by: Calamine/Phenol (Calmoseptine Ointment) 1 applic TOPICAL BID [facility]; Protocol Last Admin: 12/01/19 22:42 Dose: 1 applicatio Documented by: Collagenase (Santyl) 1 applic TOPICAL DAILY [facility]; Protocol Last Admin: 12/01/19 10:00 Dose: 1 applicatio Documented by: Doxepin HCl (Sinequan) 10 mg PO QHS [facility] Last Admin: 12/01/19 22:42 Dose: 10 mg Documented by: Enoxaparin Sodium (Lovenox) 40 mg SC DAILY [facility] Last Admin: 12/01/19 09:59 Dose: 40 mg Documented by: Glucagon () 1 mg IM .X1 PRN PRN Reason: Hypoglycemia Sodium Chloride () 250 mls @ 15 mls/hr IV .[id number] PRN PRN Reason: Saline Flush Dextrose (Dextrose 10%-Water) 250 mls @ 999 mls/hr IV .Q16M PRN; Protocol PRN Reason: HYPOGLYCEMIA Ipratropium [place] (Atrovent) 0.5 mg INHALATION Q4H.RT [facility] Last Admin: 12/02/19 10:34 Dose: 0.5 mg Documented by: Levothyroxine Sodium (Synthroid) 137 mcg PO QHS [facility] Last Admin: 12/01/19 22:42 Dose: 137 mcg Documented by: Melatonin (Melatonin) 3 mg PO QHS PRN PRN PRN Reason: INSOMNIA Metoprolol Tartrate (Lopressor (Beta Mehran)) 50 mg PO BID [facility] Last Admin: 12/01/19 22:42 Dose: 50 mg Documented by: Nutritional Formula (Lactose Free) (Ensure Enlive) 120 ml PO 4X/DAY [facility] Last Admin: 12/01/19 22:45 Dose: Not Given Documented by: Ondansetron HCl (Zofran) 4 mg IV Q8H PRN PRN PRN Reason: NAUSEA/VOMITING Last Admin: 11/29/19 05:22 Dose: 4 mg Documented by: Pentoxifylline (Trental) 400 mg PO QHS [facility] Last Admin: 12/01/19 22:43 Dose: 400 mg Documented by: Sodium Chloride () 10 - 40 ml IV UD PRN PRN Reason: SALINE FLUSH Last Admin: 11/28/19 23:51 Dose: 10 ml Documented by: Vancomycin HCl (Vancomycin Hcl) 500 mg PO Q6 [facility] Last Admin: 12/02/19 05:45 Dose: 500 mg Documented by: STROKE Vital Signs/Narrative: Vital Signs Pulse 12/02/19 08:34 109 H Medical Necessity - Tobacco Use Smoking Status: Never smoker Assessment/Plan All Active Problems Cellulitis of left leg (Acute) Diarrhea (Acute) Tachycardia (Acute) C. difficile colitis (Acute) 69 year old F with a significant PMHx of hypertension, hypothyroidism, depression admitted with diarrhea. 1. Acute C. Diff diarrhea, severe, WBC down to 14.3 On po vancomycin, strict stool charting 2. Hypokalemia secondary to #1, replaced 3. Tachycardia, sinus, h/o long standing tachycardia, slightly improved, TSH normal, FT4 normal, FT3 slightly low Cardiology consulted, on metoprolol 50mg po bid 4. Hypomagnesemia, replaced 5. Malnutrition, moderate, human resources mgr consulted, continue per recommendation 6. Chronic wound of the left leg, wound pictures in system, She has been following up with wound clinic On Santyl per wound RN 7. Hypertension, controlled, continue on metoprolol 8. PAD, on Trental 9. Hypothyroidism, on Synthroid 10. Lung nodules seen on CT chest, follow-up in the outpatient 11. DVT prophylaxis - Lovenox SC. Code Visit Inpatient E&M: 75827 Subs Hosp L2
[2019-12-02] MEDS: Metoprolol Tartrate 50 MG Tablet PO ×2 (11:10→22:41)
[2019-12-02] MEDS: Enoxaparin 40 MG/0.4 ML Syringe SC (11:10)
[2019-12-02] MEDS: Collagenase 30gm Tube 1 APPLIC TOPICAL (11:27)
[2019-12-02] MEDS: Menthol/Lanolin/Calamine/Znox 113 GM Tube 1 APPLIC TOPICAL ×2 (11:28→22:41)
--- NOTE | 2019-12-02 15:19 | CASEMGMT ---
SOCIAL WORK RECEIVED CALL FROM NURSING STATING DAUGHTER PRESENT WITH QUESTIONS REGARDING DISCHARGE. NURSE STATES ANTICIPATE D/C TOMORROW. MET WITH PATIENT'S DAUGHTER. ALL QUESTIONS ANSWERED REGARDING TRANSPORTATION TO FACILITY AND ADDRESSED PATIENT'S CONCERNS. DAUGHTER STATES THEY WERE INFORMED TO ANTICIPATE D/C TOMORROW. [facility] CONCESSION WORKER.
[2019-12-02] MEDS: Pentoxifylline 400 MG Tablet PO (22:40)
[2019-12-02] MEDS: Levothyroxine 137 MCG Tablet PO (22:40)
[2019-12-02] MEDS: Atorvastatin Calcium 20 MG Tablet PO (22:41)
[2019-12-02] MEDS: Doxepin Hydrochloride 10 MG Capsule PO (22:41)
[2019-12-02] MEDS: Aspirin E.C. 81 MG Tablet PO (22:41)
[2019-12-03 01:59] VITALS: PULSE 93
[2019-12-03 04:13] VITALS: BP 145/74; PULSE 109; RESP 20; TEMP 36.4; O2SAT 94
[2019-12-03 04:30] VITALS: PULSE 109; RESP 20; O2SAT 94
[2019-12-03] MEDS: Vancomycin HCl 250 MG Capsule 500 MG PO ×2 (06:08→11:51)
[2019-12-03 07:38] VITALS: PULSE 106
--- NOTE | 2019-12-03 09:32 | TREXTCAR_ITS ---
- Diet 11/28/19 22:57 Diet: Regular Diet Food consistency:: Regular Liquid Consistency:: Regular/Thin - Routine Orders/Code Status Keep PO Greater than or Equal to (%): 94 - Encourage use of incentive spirometer Routine Lab Work: CBC - within 3 days, BMP - within 3 days Code Status: Full Code - Wound(s) L Pandya Wound Type: nonhealing wound (unkown etiology) Dressing Change: santyl with dry dressing - Therapies Weight Bearing: Weight bearing as tolerated Extremity Affected:: Bilateral Lower Physical Therapy: Eval and Treat Occupational Therapy: Eval and Treat - Allergies/Procedures Done in Hospital Allergies/Adverse Reactions: Allergies naproxen [From Naprosyn] Allergy (Verified 11/28/19 18:05) Rash amoxicillin Adverse Reaction (Verified 11/28/19 18:05) Rash cephalexin [From Keflex] Adverse Reaction (Verified 11/28/19 18:05) Rash clotrimazole [From Lotrimin] Adverse Reaction (Verified 11/28/19 18:05) Rash diphenhydramine [From Benadryl] Adverse Reaction (Verified 11/28/19 18:05) Rash griseofulvin Adverse Reaction (Verified 11/28/19 18:05) Rash ibuprofen [From Motrin] Adverse Reaction (Verified 11/28/19 18:05) Rash miconazole [From Monistat 1 Combo Pack] Adverse Reaction (Verified 11/28/19 18 :05) Rash propranolol [From Inderal LA] Adverse Reaction (Verified 11/28/19 18:05) Rash rofecoxib [From Vioxx] Adverse Reaction (Verified 11/28/19 18:05) Rash Sulfa (Sulfonamide Antibiotics) Adverse Reaction (Verified 11/28/19 18:08) Rash Procedures: None - Type of Care/Length of Stay Estimated LOS: Convalescent Care Less Than 30 days Type of Care Needed: Skilled Rehab Potential: Fair Prognosis: Fair - Additional Orders/Day of Discharge Day of Discharge: 12/03/19 - Dietary and Speech Recommendations Dietitian Recommendations/Changes: Continue Regular diet w/120 ml Ensure 4x/day. Consider adding Davion BID to aid in wound healing- must order from pharmacy. - Follow Up Care Primary Care Physician: Boo Saunders MD [Primary Care Provider] - Please follow up with your Primary Care Physician in: within 1-2 weeks of discharge from SNF
--- NOTE | 2019-12-03 09:53 | PCM.DC.SUM ---
Discharge Date and Diagnosis - Problem List Patient Problems: Active and Suspected Problems Diarrhea (Acute) Tachycardia (Acute) C. difficile colitis (Acute) Date of Admission: 11/29/19 Date of Discharge: 12/03/19 - Primary Discharge Diagnosis Active Problems 1. Acute C. Diff diarrhea, severe 2. Hypokalemia secondary to #1 3. Tachycardia 4. Hypomagnesemia, replaced 5. Malnutrition, moderate 6. Chronic wound of the left leg 7. 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 It can be further assessed with chest CT as clinically indicated. Electronically Signed: Theodore Castañeda, at 20:11 EST Tel , Service support , Chest CT 11/28/19 22:55 IMPRESSION: No acute abnormality is seen. Electronically Signed: Juice Kee, at 9:09 EST , Service support , Chest X-Ray 11/29/19 22:25 IMPRESSION: No acute process Electronically Signed: Carlos Navarro MD at 22:49 EST , Service support , Chest X-Ray 11/30/19 17:40 IMPRESSION: No demonstrated acute cardiopulmonary process. Electronically Signed: Carlos Navarro MD at 18:19 EST , Service support , Consultations 11/28/19 22:55 Consult: Onc/Wound/meat service team member Routine Comment: Reason for Consult:: left leg wound Cardiology Operations: None Procedures: 2-D Echocardiogram Summary of Care Provided: 69 year old F with a significant PMHx of hypertension, hypothyroidism, depression, h/o poliomyelitis of right leg, ambulates with a walker, who was admitted with acute diarrhea of 1 week. Patient follows up in the wound center for chronic left leg wound and was recently on antibiotics. This is her 2nd episode of C. diff. Her WBC on admission was 20.9, worsened to 23.2 and then later improved to 17.4 at discharge. Her Cr was normal. Patient's management was that of severe acute C. difficile and she was started on p.o. vancomycin. She was kept on IVF. During the course of her hospital stay, patient was found to be hypokalemic, hypomagnesemic and that was replaced. Patient does have underlining tachycardia and had elevated heart rates to the 140s. She was on metoprolol XL 150 mg p.o. nightly she received fluid boluses and was maintained on IV fluids. Her electrolyte imbalances were replaced. EKG confirmed sinus tachycardia. Cardiology was consulted and recommended switching of her metoprolol to 50mg po bid and this was later increased to 75mg BID. Patient's TSH was normal. She continued to improve. She was seen by director call center sales for moderate malnutrition and started on nutritional supplements. In the course of the hospital stay, patient was seen by the wound RN and sent was applied to the wound. Her wound continued to stay improved. Patient Problems: Active and Suspected Problems Diarrhea (Acute) Tachycardia (Acute) C. difficile colitis (Acute) Subjective: On the day of discharge, patient complains of her mouth feeling coated. Denies any abdominal pain. Had 1 bowel movement this morning. Objective: Physical exam: General: Alert, Oriented x3, Cooperative, No apparent distress, - - Looks frail HEENT: Atraumatic, PERRLA, EOMI, Normocephalic Oral: Moist Mucosa Neck: Supple Lungs: Clear to auscultation, Normal air movement Cardiovascular: Regular rate, Regular Rhythm, Normal S1, Normal S2, No murmurs Abdomen: Bowel Sounds Present, Soft, Non Tender, Non-Distended, No Hepato-splenomegaly Extremities: Edema - bilaterally, +2-3, left montes de oca dressing in place, wound pictures in system Skin: - - see wound picture Musculoskeletal: No Tenderness to Palpation of Joints or Extremities Lymphatic: No Cervical, Supraclavicular, or Inguinal Adenopathy Neurological: Cranial nerves II-XII grossly intact Psych/Mental Status: Normal Affect, Appropriate - Physical Exam Vitals/I&O's: Vital Signs Temp Pulse Resp BP Pulse Ox 97.6 F L 106 H 20 H 145/74 H 94 12/03/19 04:13 12/03/19 07:38 12/03/19 04:30 12/03/19 04:13 12/03/19 04:30 Oxygen Flow Rate (L/min) 2 Oxygen Delivery Method Nasal Cannula Weight: 66.5 kg Body Mass Index (BMI) 30.6 Intake and Output for Last 24 Hours 12/01/19 12/02/19 12/03/19 23:59 23:59 23:59 Intake Total 3103.33 / 3103.33 750 / 900 300 / 300 Output Total 300 / 300 Balance 3103.33 / 3103.33 750 / 600 0 / 0 Microbiology Past 72 Hours 11/28/19 19:55 Blood Culture (Wb) - Anticubital Right Blood Culture - Preliminary No growth in 48 hours. 11/28/19 19:07 Blood Culture (Wb) - Anticubital Left Blood Culture - Preliminary No growth in 48 hours. Current Medications Acetaminophen (Tylenol) 650 mg PO Q6H PRN PRN PRN Reason: Pain Score 1-10/Temp > 100.7 F Aspirin (Ecotrin) 81 mg PO QHS [facility] Last Admin: 12/02/19 22:41 Dose: 81 mg Documented by: Atorvastatin Calcium (Lipitor) 20 mg PO QHS [facility] Last Admin: 12/02/19 22:41 Dose: 20 mg Documented by: Calamine/Phenol (Calmoseptine Ointment) 1 applic TOPICAL BID [facility]; Protocol Last Admin: 12/02/19 22:41 Dose: 1 applicatio Documented by: Collagenase (Santyl) 1 applic TOPICAL DAILY [facility]; Protocol Last Admin: 12/02/19 11:27 Dose: 1 applicatio Documented by: Doxepin HCl (Sinequan) 10 mg PO QHS [facility] Last Admin: 12/02/19 22:41 Dose: 10 mg Documented by: Enoxaparin Sodium (Lovenox) 40 mg SC DAILY [facility] Last Admin: 12/02/19 11:10 Dose: 40 mg Documented by: Glucagon () 1 mg IM .X1 PRN PRN Reason: Hypoglycemia Sodium Chloride () 250 mls @ 15 mls/hr IV .[id number] PRN PRN Reason: Saline Flush Dextrose (Dextrose 10%-Water) 250 mls @ 999 mls/hr IV .Q16M PRN; Protocol PRN Reason: HYPOGLYCEMIA Ipratropium Ewing (Atrovent) 0.5 mg INHALATION Q4H.RT PRN PRN Reason: SOB &/OR WHEEZING Lactobacillus Acidophilus (Acidophilus) 2 tablet PO 4X/DAY [facility] Last Admin: 12/02/19 22:40 Dose: 2 tablet Documented by: Levothyroxine Sodium (Synthroid) 137 mcg PO QHS [facility] Last Admin: 12/02/19 22:40 Dose: 137 mcg Documented by: Melatonin (Melatonin) 3 mg PO QHS PRN PRN PRN Reason: INSOMNIA Metoprolol Tartrate (Lopressor (Beta Mehran)) 75 mg PO BID [facility] Nutritional Formula (Lactose Free) (Ensure Enlive) 120 ml PO 4X/DAY [facility] Last Admin: 12/02/19 22:42 Dose: Not Given Documented by: Nystatin (Nystatin) 500,000 unit PO 4X/DAY [facility] Ondansetron HCl (Zofran) 4 mg IV Q8H PRN PRN PRN Reason: NAUSEA/VOMITING Last Admin: 11/29/19 05:22 Dose: 4 mg Documented by: Pentoxifylline (Trental) 400 mg PO QHS [facility] Last Admin: 12/02/19 22:40 Dose: 400 mg Documented by: Sodium Chloride () 10 - 40 ml IV UD PRN PRN Reason: SALINE FLUSH Last Admin: 11/28/19 23:51 Dose: 10 ml Documented by: Vancomycin HCl (Vancomycin Hcl) 500 mg PO Q6 [facility] Last Admin: 12/03/19 06:08 Dose: 500 mg Documented by: Discharge Diet: No Restrictions Discharge Activity: Return to Normal Activity Home Medications: Medications to take at Discharge Aspirin E.C. [Ecotrin] 81 mg PO QHS 11/28/19 Doxepin HCl [Sinequan] 10 mg PO QHS 11/28/19 Furosemide [Lasix] 40 mg PO PRN PRN 11/28/19 Levothyroxine [Synthroid] 137 mcg PO QHS 11/28/19 Pentoxifylline [Trental] 400 mg PO DAILY 11/28/19 Simvastatin [Zocor] 40 mg PO QHS 11/28/19 Acetaminophen [Tylenol Tablet] 650 mg PO Q6H PRN PRN tab 12/03/19 Collagenase [Santyl] 1 applic TOPICAL DAILY tube 12/03/19 Enoxaparin [Lovenox] 40 mg SUBCUT DAILY syringe 12/03/19 Ensure Enlive 120 ml PO 4X/DAY liquid 12/03/19 Lactobacillus Acidophilus [Acidophilus] 2 tab PO 4X/DAY tab 12/03/19 Metoprolol Tartrate [Lopressor (beta mehran)] 75 mg PO BID tab 12/03/19 Nystatin 500,000 unit PO 4X/DAY udc 12/03/19 Vancomycin [Vancocin] 125 mg PO BID 7 Days #14 cap 12/03/19 Vancomycin [Vancocin] 125 mg PO DAILY 7 Days #7 cap 12/03/19 Vancomycin [Vancocin] 125 mg PO Q6H 8 Days #32 cap 12/03/19 Vancomycin [Vancocin] 125 mg PO QODAY #24 cap 12/03/19 Following Prescrptions Were Given to Patient: Vancomycin [Vancocin] 125 mg PO Q6H 8 Days #32 cap Vancomycin [Vancocin] 125 mg PO BID 7 Days #14 cap Vancomycin [Vancocin] 125 mg PO DAILY 7 Days #7 cap Vancomycin [Vancocin] 125 mg PO QODAY #24 cap Primary Care Physician: Boo Saunders MD [Primary Care Provider] - Please follow up with your Primary Care Physician in: within 1-2 weeks of discharge from SNF Disposition: Senior Living facility Minutes spent on discharge:: 40 Patient Condition:: Stable Medical Necessity - Tobacco Use Smoking Status: Never smoker Tobacco Use: Non-smoker Meaningful Use Info Meaningful Use Diagnoses (Choose all that apply): None applicable Code Visit Inpatient E&M: 76280 Disch Hosp
[2019-12-03 10:36] VITALS: BP 162/77; PULSE 86; RESP 19; TEMP 36.6; O2SAT 93
[2019-12-03] MEDS: NYSTATIN 500,000 UNIT/5 ML UDC 500000 UNIT PO (10:40)
[2019-12-03] MEDS: Enoxaparin 40 MG/0.4 ML Syringe SC (10:40)
[2019-12-03] MEDS: Menthol/Lanolin/Calamine/Znox 113 GM Tube 1 APPLIC TOPICAL (10:40)
[2019-12-03] MEDS: 0.9% Saline Lock 10 ML Syringe IV (10:40)
[2019-12-03 10:41] VITALS: PULSE 86
[2019-12-03] MEDS: Metoprolol Tartrate 50 MG Tablet 75 MG PO (10:41)
[2019-12-03] MEDS: Furosemide 20 MG/2 ML VIAL IV (10:41)
--- NOTE | 2019-12-03 11:10 | NURSING ---
call placed to [facility], report given to nurse whom will taker over care for this patient
== END 2019-12-03 12:06 | disposition skilled nursing facility (03) | DRG 372 ==
LOC: ED 18:41 → MS3 22:15
PROVIDERS: Admitting Provider Hospitalist; Emergency Provider Emergency Medicine; Visit Provider Internal Medicine
DX: A04.72 Enterocolitis due to Clostridium difficile, not specified as recurrent (principal); E44.0 Moderate protein-calorie malnutrition; E87.6 Hypokalemia; E86.0 Dehydration; I73.9 Peripheral vascular disease, unspecified; I10 Essential (primary) hypertension; E03.9 Hypothyroidism, unspecified; R91.8 Other nonspecific abnormal finding of lung field; E83.42 Hypomagnesemia; R00.0 Tachycardia, unspecified; I34.1 Nonrheumatic mitral (valve) prolapse; Z68.30 Body mass index [BMI] 30.0-30.9, adult; R53.81 Other malaise; I87.2 Venous insufficiency (chronic) (peripheral); S81.802A Unspecified open wound, left lower leg, initial encounter; B91 Sequelae of poliomyelitis
CPT/HCPCS: 36415; 71045; 71250; 80048; 80053; 80076; 81001; 83605; 83735; 84439; 84443; 84481; 85025; 87040; 87493; 87506; 87804; 93005; 93306; 94640; 97110; 97162; 97166; 97530; 97535; 97802; 99285; J7030; J7040; P9612; Q9957; A4216; C8929; J0744; J1940; J2405

== ENCOUNTER → 2019-12-27 08:41 | Outpatient (CLI) | payer MEDICARE, OTHER, SELFPAY ==
[2019-12-13 13:04] VITALS: BMI 30.6
--- NOTE | 2019-12-27 08:45 | ADUL_ITS ---
Reason For Study: Atherosclerosis Left Velocities Ext Iliac Artery, dist = 29.4 cm./sec. Common Femoral Artery, mid = 64.3 cm./sec. Supf. Femoral Artery, prox = 50 cm./sec. Supf. Femoral Artery, mid = 51.1 cm./sec. Supf. Femoral Artery, dist = 45.7 cm./sec. Profunda Femoral Artery = 40.2 cm./sec. Popliteal Artery, proximal, = 48.9 cm./sec. Popliteal Artery, mid = 38 cm./sec. Popliteal Artery, distal = 27.6 cm./sec. Post. Tibial Artery, prox = 30.2 cm./sec. Post Tibial Artery, mid = 24.1 cm./sec. Post Tibial Artery, dist. = 23.5 cm./sec. Peroneal Artery, prox = 18.2 cm./sec. Peroneal Artery,dist. = 29.5 cm./sec. Ant.Tibial Artery, prox = 31.6 cm./sec. Ant Tibial Artery, mid = 22.5 cm./sec. PeroA mid and SAMY distal not visualized due to bandages. Procedure Exam performed in department. Interpretation Summary 1. mid tibials not visualized due to bandages. But no stenosis seen and biphasic flow seen throughout except distal anterior tibial with monopasic flow. Ordering Physician: Bryan Morel Referring Physician: Boo Saunders Performed By: Stella Monique RVT
--- NOTE | 2019-12-27 08:45 | AAVD_ITS ---
Reason For Study: Aortic atherosclerosis Aorta Measurements Aorta Doppler Measurements Proximal aorta measures0.99 x 1.18cm. in cross- Peak systolic flow velocities within the proximal sectional axis. aorta measure 116.2 cm/sec. Proximal aorta measures1.05cm. in longitudinal Peak systolic flow velocities within the mid aorta axis. measure 198.2 cm/sec. Mid aorta measures0.88 x 0.88cm. in cross- Peak systolic flow velocities within the distal sectional axis. aorta measure 44.9 cm/sec. Mid aorta measures0.92cm. in longitudinal axis. Distal aorta measures0.92 x 0.97cm. in cross- sectional axis. Distal aorta measures0.90cm. in longitudinal axis. High bifurcation noted. Left Iliac Artery Left iliac artery measures 0.88 x 0.99 cm. in the cross-sectional axis. Left iliac artery measures 1.01 cm. in the longitudinal axis. Peak systolic velocity in the left iliac artery measures 281 cm/sec. Right Iliac Artery Right iliac artery measures 0.86 x 0.88 cm. in the cross-sectional axis. Right iliac artery measures 0.86 cm. in the longitudinal axis. Peak systolic velocity in the right iliac artery measures 205.7 cm/sec. Procedure Aorta IVC Iliac vasculature or bypass grafts [id number]. Technically difficult exam. Flip Pierre RVT, assisted. Exam performed in department. Interpretation Summary 1. No aortoiliac aneurysm. 2. 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 Ordering Physician: Bryan Morel Referring Physician: Boo Saunders Performed By: Stella Monique RVT
== END ==
PROVIDERS: Referring Provider Surgery Vascular Surgery; Visit Provider Surgery Vascular Surgery
DX: I70.0 Atherosclerosis of aorta (principal); I77.1 Stricture of artery; I70.242 Atherosclerosis of native arteries of left leg with ulceration of calf; L97.229 Non-pressure chronic ulcer of left calf with unspecified severity; R60.0 Localized edema; L97.822 Non-pressure chronic ulcer of other part of left lower leg with fat layer exposed; M79.605 Pain in left leg; I87.2 Venous insufficiency (chronic) (peripheral); Z86.12 Personal history of poliomyelitis
CPT/HCPCS: 93926; 93978; 97597; 97598

== ENCOUNTER 2020-01-03 11:30 | Outpatient (RCR) | payer MEDICARE, OTHER, SELFPAY ==
[2019-11-28 22:36] VITALS: BMI 30.6
[2019-12-09 00:58] VITALS: BP 139/84; PULSE 88; RESP 16; TEMP 37.4
[2019-12-13 13:04] VITALS: BP 152/68; PULSE 122; RESP 18; TEMP 38.5; BMI 30.6
--- NOTE | 2019-12-13 14:15 | PN.PCM_ITS ---
(1) Ulcer of left lower extremity with fat layer exposed Status: Chronic Current Visit: Yes Code(s): L97.922 - Non-pressure chronic ulcer of unspecified part of left lower leg with fat layer exposed (2) Delayed wound healing Status: Chronic Current Visit: Yes Code(s): T14.8XXD - Other injury of unspecified body region, subsequent encounter (3) Other specified peripheral vascular diseases Status: Chronic Current Visit: Yes Code(s): I73.89 - Other specified peripheral vascular diseases Comment: bilateral lower extremity (4) Left leg pain Status: Chronic Current Visit: Yes Code(s): M79.605 - Pain in left leg (5) C. difficile colitis Status: Acute Current Visit: Yes Code(s): A04.72 - Enterocolitis due to Clostridium difficile, not specified as recurrent Type of Wound Date of Service: 12/13/19 Chief Complaint: Left leg ulcer History of Wound: This 69-year-old female with significant past medical history of polio with several medical sequela sustained a left leg ulcer that dates back to 2016. She has had periods of intermittent healing and this has returned on numerous occasions. She relates continued ulcer pain and drainage. She has only wash this ulcer site with hibiclens soap as advised. She had her arterial and venous studies performed today and would like to review the results. She has significant pain to her leg this is reported as a 5 out of 10. Dangling her leg does temporarily get rid of the pain. She does have ongoing fluctuating swelling that is relieved by periodic elevation of the leg. She was ill last week and was admitted to the hospital. She had C. Diff. She was also scheduled to see vascular surgery today and missed her appointment because she relates she was rushing this morning and forgot to bring her insurance card. She is rescheduled within the next week at a different office location. Progress of Wound: stable - Physical Exam Vital Signs Temp Pulse Resp BP 101.3 F H 122 H 18 152/68 H 12/13/19 13:04 12/13/19 13:04 12/13/19 13:04 12/13/19 13:04 General: Alert, Oriented x3, Cooperative, No apparent distress Extremities: No Calf Tenderness, Diminished Peripheral Pulses, Edema, - - pain with ulcer manipulation Skin: Ulcer/ Wound - fibrous, devitalized, slough. peripheral reduced erythema. no odor or sb purulence noted. there is no visulalized bone or eschar noted. there is mild peripheral granulation tissue noted Wound Measurements and Assessment WC - Nurse 1 - General Ulcer Measurement Start: 12/13/19 13:03 Freq: Status: Active Protocol: Activity Type Activity Date Activity User E-Sign Co-Sign Detail Recorded Client Recorded Date Recorded By Document 12/13/19 13:04 MW [id number] 12/13/19 13:09 MW 12/13/19 13:04 Wound Center Nurse 1 [Ulcer Assessment] #1 LLE -Combined with other wound No -Current Size (cm) - Length 11.5 -Current Size (cm) - Width 9.0 -Current Size (cm) - Depth 0.2 -Total Square Cm 103.50 -Photo Taken No -Epithelialization None Present -Tunneling No -Undermining/Tunneling No -Circular Undermining No -Exudate Amt Large -Exudate Type Serosanguineous -Wound Margin Flat & Intact -Granulation Amt None Present (0 %) -Granulation Quality N/A -Slough/Fibrin Yes -Necrosis Amt Large (67-100%) -Necrotic Tissue Type Adherent Slough -Structure Exposed N/A -Texture (Susana-wound Skin Appearance) Assessed, Localized Edema -Moisture (Susana-wound Skin Appearance No Abnormality, ) Assessed -Color (Susana-wound Skin Appearance) Assessed,Rubor -Temperature (Susana-wound Skin No Abnormality Appearance) (Pt Warm) -Tenderness on Palpation (Susana-wound No Skin Appearance) -Ulcer Cleansing soap and water -Foul Odor after Cleansing No -Anesthetic Used 4% Lidocaine Solution [Edema Assessment] -Lower Limb Edema Present No WC - Nurse 2 - General Ulcer CM Notes Start: 12/13/19 13:03 Freq: Status: Active Protocol: Activity Type Activity Date Activity User E-Sign Co-Sign Detail Recorded Client Recorded Date Recorded By Document 12/13/19 13:27 JF [id number] 12/13/19 13:29 JF 12/13/19 13:27 Wound Center Nurse 2 [Procedure/Treatment] #1 LLE -Time 13:27 -Correct Patient Yes -Correct Side, Site, Position Yes -Correct Procedure Yes -Procedure Performed Yes -Type of Procedure Debridement -Clinical Debridement Subcutaneous -Post Debridement Size (cm) - Length 11.5 -Post Debridement Size (cm) - Width 9 -Post Debridement Size (cm) - Depth 0.3 -Total Square Cm 103.5 -Wound/Ulcer Outcome Not Healed -Ulcer Cleansing Rinsed/ Irrigated with Saline -Foul Odor after Cleansing No -Bioengineered Tissue No -Bleeding Controlled with Pressure -Other 75% of ulcer debrided. 77. 63cm2 debrided. -Offloading No -Treatment Response Procedure Tolerated Well [See Physician Procedure note for Specifics] Pain Scale: 0-10 Numeric [Pain] -Is Patient Pain Free? Yes Musculoskeletal: Muscle Wasting, - - compartments soft to palpate Neurological: Sensory exam intact to light touch and pain Psych/Mental Status: Normal Affect, Appropriate Debridement Note Post-Debridement Measurements/Treatment WC - Nurse 2 - General Ulcer CM Notes Start: 12/13/19 13:03 Freq: Status: Active Protocol: Activity Type Activity Date Activity User E-Sign Co-Sign Detail Recorded Client Recorded Date Recorded By Document 12/13/19 13:27 [email or web address] [id number] 12/13/19 13:29 FELISHA 12/13/19 13:27 Wound Center Nurse 2 #1 LLE -Time 13:27 -Correct Patient Yes -Correct Side, Site, Position Yes -Correct Procedure Yes -Procedure Performed Yes -Type of Procedure Debridement -Clinical Debridement Subcutaneous -Post Debridement Size (cm) - Length 11.5 -Post Debridement Size (cm) - Width 9 -Post Debridement Size (cm) - Depth 0.3 -Total Square Cm 103.5 -Wound/Ulcer Outcome Not Healed -Ulcer Cleansing Rinsed/ Irrigated with Saline -Foul Odor after Cleansing No -Bioengineered Tissue No -Bleeding Controlled with Pressure -Other 75% of ulcer debrided. 77. 63cm2 debrided. -Offloading No -Treatment Response Procedure Tolerated Well Pain Scale: 0-10 Numeric Is Patient Pain Free? Yes Wound debrided: anterior leg Laterality: Left Type of Debridement: Excisional debridement Anesthesia Used: 5% Lidocaine Gel Depth: in the subcutaneous layer Percentage of wound debrided: 70 Instrument Used: #15 blade, Forceps Tissue Removed: fibrous, devitalized subcutaneous, biofilm, slough Severity: Fat Layer Exposed Amount of bleeding with debridement: Mild Bleeding Controlled with: Pressure Patient tolerated procedure well Assessment/Plan Active Problems Ulcer of left lower extremity with fat layer exposed (Chronic) Delayed wound healing (Chronic) Other specified peripheral vascular diseases (Chronic) bilateral lower extremity Left leg pain (Chronic) C. difficile colitis (Acute) Assessment: Left leg ulcer with fat layer exposed and resolved adjacent maceration. Bacterial contamination is resolved. Leg edema. Venous insufficiency. Peripheral vascular disease. Delayed healing. Malnutrition suspected Plan: I reviewed and discussed her case today. Debridement was performed as noted in the clinical panel. I recommended changing the dressing daily with santyl; this has been going well this past week. A prescription was provided to help get rid of fibrous tissue. This was applied with a secondary dressing as well. She is advised to wash the leg daily with antimicrobial soap including medical grade hibiblens. She is doing well with this so far. An updated wound culture was obtained and she demonstrates growth of bacteria that is not a part of the normal david. I do not recommend oral antibiotic at this time and wants addressed this locally with antimicrobial soap. She monitor for bacterial or systemic signs of illness progression. Her recent c. diff condition is noted. he was reassured no systemic signs of illness are noted. I recommend she proceed with work-up for both arterial and venous disease. Venous reflux evaluation test was ordered. She was advised to avoid idle sitting and standing and to elevate the limb to control edema. If she has continued pain particularly with leg elevation, I recommend she intermittently dangles the leg as well. I also recommend she proceeds with noninvasive arterial study. To d/c tubigrip due to inability to tolerate. It appears she does have some mild form of venous insufficiency after reviewing her venous Doppler exam. She does also have significant bilateral lower extremity monophasic waveforms with ABIs of around 0.5 bilaterally. I recommend a vascular specialist referral to Dr. Morel in this was provided. She is rescheduled because her session was not completed today. I also recommend updated labs including CBC, CMP, and prealbumin to assess her current medical status. Leukocytosis was noted and this will be monitored pending clinical progression. Her prealbumin was 19.8 and proper nutrition and supplementation was reviewed. An order was provided previously and she was advised to obtain. To proceed with a proper control diet and nutrition supplementation to optimize healing. I answered all of her questions and explained the etiology of ulcer causes and the comprehensive wound healing plan. Her pain was additionally addressed by providing a prescription for topical 4% lidocaine cream for application susana-ulcer site and not directly in the ulcer site after dressing changes for this is when her pain is worse. I recommend she returns on a weekly basis. I answered her questions. ----- . 2019 quality measures reviewed as the following: Reviewed today- pain level was confirmed in follow-up plan was documented, medication and allergy reconciliation was performed. Reviewed 11/15/2019-pneumonia vaccination was confirmed, influenza immunization was confirmed for this current season in July 2019, advanced care plan was confirmed with living will, she is a current tobacco non user, her blood pressure is elevated over 120/80 and I recommend she follows up with her primary care physician for medical management of this. Diet and exercise benefits were also discussed for educational purposes to optimize her wound healing and medical management.
[2019-12-20 16:21] VITALS: BP 135/64; PULSE 107; RESP 18; TEMP 37.3; BMI 30.6
--- NOTE | 2019-12-20 16:34 | PCM.WC.PN ---
(1) Ulcer of left lower extremity with fat layer exposed Status: Chronic Current Visit: Yes Code(s): L97.922 - Non-pressure chronic ulcer of unspecified part of left lower leg with fat layer exposed (2) Delayed wound healing Status: Chronic Current Visit: Yes Code(s): T14.8XXD - Other injury of unspecified body region, subsequent encounter (3) Other specified peripheral vascular diseases Status: Chronic Current Visit: Yes Code(s): I73.89 - Other specified peripheral vascular diseases Comment: bilateral lower extremity (4) Left leg pain Status: Chronic Current Visit: Yes Code(s): M79.605 - Pain in left leg (5) C. difficile colitis Status: Resolved Current Visit: Yes Code(s): A04.72 - Enterocolitis due to Clostridium difficile, not specified as recurrent (6) Leg edema, left Status: Chronic Current Visit: Yes Code(s): R60.0 - Localized edema Type of Wound Date of Service: 12/20/19 Chief Complaint: Left leg ulcer History of Wound: This 69-year-old female with significant past medical history of polio with several medical sequela sustained a left leg ulcer that dates back to 2016. She has had periods of intermittent healing and this has returned on numerous occasions. She relates continued ulcer pain and drainage. She has only wash this ulcer site with hibiclens soap as advised. She changes the dressing with Santyl. She had her arterial and venous studies performed today and would like to review the results. She has significant pain to her leg this is reported as a 5 out of 10. Dangling her leg does temporarily get rid of the pain. She was seen by Dr. Morel, vascular surgeon who recommended EDUARDO studies and additional left leg duplex prior to proceeding with additional intervention with angiogram versus other procedure. Compression was also recommended. She is continued pain is not able to tolerate the compression stocking or Tubigrip. Progress of Wound: stable - Physical Exam Vital Signs Temp Pulse Resp BP 99.2 F H 107 H 18 135/64 H 12/20/19 16:21 12/20/19 16:21 12/20/19 16:21 12/20/19 16:21 General: Alert, Oriented x3, Cooperative, No apparent distress Extremities: No cyanosis, Capillary Refill Less than 3 Seconds, No Calf Tenderness, Diminished Peripheral Pulses, Edema Skin: Ulcer/ Wound - No purulence, erythema, string, odor, infection. There is continued fibrous base with some new granular tissue bone formation. The adjacent skin is hairless, atrophic and with some hyperpigmentation. There is no exposed muscle or bone. Wound Measurements and Assessment WC - Nurse 1 - General Ulcer Measurement Start: 12/13/19 13:03 Freq: Status: Active Protocol: Activity Type Activity Date Activity User E-Sign Co-Sign Detail Recorded Client Recorded Date Recorded By Document 12/20/19 16:21 [facility] [id number] 12/20/19 16:25 [facility] 12/20/19 16:21 Wound Center Nurse 1 [Ulcer Assessment] #1 LLE -Combined with other wound No -Current Size (cm) - Length 9.5 -Current Size (cm) - Width 9 -Current Size (cm) - Depth 0.3 -Total Square Cm 85.5 -Photo Taken No -Epithelialization None Present -Tunneling No -Undermining/Tunneling No -Circular Undermining No -Exudate Amt Medium -Exudate Type Serosanguineous -Wound Margin Distinct, Outline Attached -Granulation Amt Small (1-33%) -Granulation Quality Red -Slough/Fibrin Yes -Necrosis Amt Large (67-100%) -Necrotic Tissue Type Adherent Slough -Texture (Susana-wound Skin Appearance) Assessed, Scarring -Moisture (Susana-wound Skin Appearance Assessed,Dry/ ) Scaly -Color (Susana-wound Skin Appearance) Assessed -Temperature (Susana-wound Skin No Abnormality Appearance) (Pt Warm) -Tenderness on Palpation (Susana-wound No Skin Appearance) -Ulcer Cleansing Rinsed/ Irrigated with Saline -Foul Odor after Cleansing No -Anesthetic Used 4% Lidocaine Solution [Edema Assessment] -Lower Limb Edema Present Yes -Left Calf (cm) 35.3 -Left Ankle (cm) 22.7 Musculoskeletal: No Tenderness to Palpation of Joints or Extremities, Muscle Wasting Neurological: Sensory exam intact to light touch and pain Psych/Mental Status: Normal Affect, Appropriate Debridement Note Post-Debridement Measurements/Treatment WC - Nurse 2 - General Ulcer CM Notes Start: 12/13/19 13:03 Freq: Status: Active Protocol: Activity Type Activity Date Activity User E-Sign Co-Sign Detail Recorded Client Recorded Date Recorded By Document 12/13/19 13:27 [id number] 12/13/19 13:29 JF 12/13/19 13:27 Wound Center Nurse 2 #1 LLE -Time 13:27 -Correct Patient Yes -Correct Side, Site, Position Yes -Correct Procedure Yes -Procedure Performed Yes -Type of Procedure Debridement -Clinical Debridement Subcutaneous -Post Debridement Size (cm) - Length 11.5 -Post Debridement Size (cm) - Width 9 -Post Debridement Size (cm) - Depth 0.3 -Total Square Cm 103.5 -Wound/Ulcer Outcome Not Healed -Ulcer Cleansing Rinsed/ Irrigated with Saline -Foul Odor after Cleansing No -Bioengineered Tissue No -Bleeding Controlled with Pressure -Other 75% of ulcer debrided. 77. 63cm2 debrided. -Offloading No -Treatment Response Procedure Tolerated Well Pain Scale: 0-10 Numeric Is Patient Pain Free? Yes Wound debrided: anterior leg Laterality: Left Type of Debridement: Excisional debridement Anesthesia Used: 5% Lidocaine Gel Depth: in the subcutaneous layer Percentage of wound debrided: 50 Instrument Used: #15 blade Tissue Removed: Fibrous, devitalized subcutaneous, biofilm, slough Severity: Fat Layer Exposed Amount of bleeding with debridement: Mild Bleeding Controlled with: Pressure Patient tolerated procedure well Assessment/Plan Active Problems Ulcer of left lower extremity with fat layer exposed (Chronic) Delayed wound healing (Chronic) Other specified peripheral vascular diseases (Chronic) bilateral lower extremity Left leg pain (Chronic) Leg edema, left (Chronic) Assessment: Left leg ulcer with fat layer exposed, lack of local infection signs. Bacterial contamination has resolved. Leg edema. Venous insufficiency. Peripheral vascular disease with intervention pending. Delayed healing. Malnutrition suspected Plan: I reviewed and discussed her case today. Debridement was performed as noted in the clinical panel. I recommended changing the dressing daily with santyl; this has been going well. She is advised to wash the leg daily with antimicrobial soap including medical grade hibiblens. She is doing well with this so far. An updated wound culture was obtained and she demonstrates growth of bacteria that is not a part of the normal david. I do not recommend oral antibiotic at this time and wants addressed this locally with antimicrobial soap. There is also noted she had a recent C. difficile episode and this is been treated by her medical doctor. I recommend she proceed with work-up for both arterial and venous disease. Venous reflux evaluation test was ordered. She was advised to avoid idle sitting and standing and to elevate the limb to control edema. If she has continued pain particularly with leg elevation, I recommend she intermittently dangles the leg as well. I also recommend she proceeds with noninvasive arterial study. This was performed and she will proceed with the recommended tests by vascular surgery prior to additional intervention. I reviewed Dr. Morel's plan and documentation. To d/c tubigrip due to inability to tolerate. I recommend least trying an Candelario wrap and this was applied today. It appears she does have some mild form of venous insufficiency after reviewing her venous Doppler exam. She does also have significant bilateral lower extremity monophasic waveforms with ABIs of around 0.5 bilaterally. I also recommend updated labs including CBC, CMP, and prealbumin to assess her current medical status. Leukocytosis was noted and this will be monitored pending clinical progression. Her prealbumin was 19.8 and proper nutrition and supplementation was reviewed. An order was provided previously and she was advised to obtain. To proceed with a proper control diet and nutrition supplementation to optimize healing. I answered all of her questions and explained the etiology of ulcer causes and the comprehensive wound healing plan. Her pain was additionally addressed by previously providing a prescription for topical 4% lidocaine cream for application susana-ulcer site and not directly in the ulcer site after dressing changes for this is when her pain is worse. I recommend she returns on a weekly basis. I answered her questions. . 2019 quality measures reviewed as the following: Reviewed today-pain level was confirmed in follow-up plan was documented, medication and allergy reconciliation was performed. Reviewed 11/15/2019-pneumonia vaccination was confirmed, influenza immunization was confirmed for this current season in July 2019, advanced care plan was confirmed with living will, she is a current tobacco non user, her blood pressure is elevated over 120/80 and I recommend she follows up with her primary care physician for medical management of this. Diet and exercise benefits were also discussed for educational purposes to optimize her wound healing and medical management.
[2019-12-27 10:49] VITALS: BP 137/64; PULSE 90; RESP 18; TEMP 36.3; BMI 30.6
--- NOTE | 2019-12-27 16:52 | PN.PCM_ITS ---
(1) Ulcer of left lower extremity with fat layer exposed Status: Chronic Current Visit: Yes Code(s): L97.922 - Non-pressure chronic ulcer of unspecified part of left lower leg with fat layer exposed (2) Delayed wound healing Status: Chronic Current Visit: Yes Code(s): T14.8XXD - Other injury of unspecified body region, subsequent encounter (3) Other specified peripheral vascular diseases Status: Chronic Current Visit: Yes Code(s): I73.89 - Other specified peripheral vascular diseases Comment: bilateral lower extremity (4) Left leg pain Status: Chronic Current Visit: Yes Code(s): M79.605 - Pain in left leg (5) C. difficile colitis Status: Resolved Current Visit: Yes Code(s): A04.72 - Enterocolitis due to Clostridium difficile, not specified as recurrent (6) Leg edema, left Status: Chronic Current Visit: Yes Code(s): R60.0 - Localized edema Type of Wound Date of Service: 12/27/19 Chief Complaint: Left leg ulcer History of Wound: This 69-year-old female with significant past medical history of polio with several medical sequela sustained a left leg ulcer that dates back to 2016. She has had periods of intermittent healing and this has returned on numerous occasions. She relates continued ulcer pain and drainage. She has only wash this ulcer site with hibiclens soap as advised. She changes the dressing with Santyl. She had her arterial and venous studies performed today and would like to review the results. She has significant pain to her leg this is reported as a 5 out of 10. Dangling her leg does temporarily get rid of the pain. She was seen by Dr. Morel, vascular surgeon who recommended EDUARDO studies and additional left leg duplex prior to proceeding with additional intervention with angiogram versus other procedure. Compression was also recommended. She has been able to improve her compression and wearing Candelario wrap as advised. She had additional arterial Doppler performed earlier this morning and plans of intervention with Dr. Morel soon. Progress of Wound: Improving - Physical Exam Vital Signs Temp Pulse Resp BP 97.4 F L 90 18 137/64 H 12/27/19 10:49 12/27/19 10:49 12/27/19 10:49 12/27/19 10:49 General: Alert, Oriented x3, Cooperative, No apparent distress Extremities: No cyanosis, Capillary Refill Less than 3 Seconds, No Calf Tenderness, Diminished Peripheral Pulses, Edema Skin: Ulcer/ Wound - No purulence, erythema, streaking, odor, or infection. The wound bed is very granular and there is some peripheral epithelialization at the prior sub-hemorrhagic sites. There is no longer any eschar. Her skin is very atrophic and hairless Wound Measurements and Assessment WC - Nurse 1 - General Ulcer Measurement Start: 12/13/19 13:03 Freq: Status: Active Protocol: Activity Type Activity Date Activity User E-Sign Co-Sign Detail Recorded Client Recorded Date Recorded By Document 12/27/19 10:49 [facility] [id number] 12/27/19 10:53 [facility] 12/27/19 10:49 Wound Center Nurse 1 [Ulcer Assessment] #1 LLE -Combined with other wound No -Current Size (cm) - Length 9 -Current Size (cm) - Width 4.1 -Current Size (cm) - Depth 0.3 -Total Square Cm 36.9 -Photo Taken No -Epithelialization None Present -Tunneling No -Undermining/Tunneling No -Circular Undermining No -Exudate Amt Medium -Exudate Type Serosanguineous -Wound Margin Distinct, Outline Attached -Granulation Amt Small (1-33%) -Granulation Quality Red -Slough/Fibrin Yes -Necrosis Amt Large (67-100%) -Necrotic Tissue Type Adherent Slough -Texture (Susana-wound Skin Appearance) Assessed, Scarring -Moisture (Susana-wound Skin Appearance Assessed,Dry/ ) Scaly -Color (Susana-wound Skin Appearance) Assessed, Erythema, Hemosiderin Staining -Temperature (Susana-wound Skin No Abnormality Appearance) (Pt Warm) -Tenderness on Palpation (Susana-wound Yes Skin Appearance) -Ulcer Cleansing Rinsed/ Irrigated with Saline -Foul Odor after Cleansing No -Anesthetic Used 4% Lidocaine Solution [Edema Assessment] -Lower Limb Edema Present Yes -Left Calf (cm) 32.1 -Left Ankle (cm) 20.4 - Nurse 2 - General Ulcer CM Notes Start: 12/13/19 13:03 Freq: Status: Active Protocol: Activity Type Activity Date Activity User E-Sign Co-Sign Detail Recorded Client Recorded Date Recorded By Document 12/27/19 11:10 [id number] 12/27/19 11:11 02/19/20 11:10 Wound Center Nurse 2 [Procedure/Treatment] #1 LLE -Time 11:10 -Correct Patient Yes -Correct Side, Site, Position Yes -Correct Procedure Yes -Procedure Performed Yes -Type of Procedure Debridement -Clinical Debridement Selective -Post Debridement Size (cm) - Length 9 -Post Debridement Size (cm) - Width 4.1 -Post Debridement Size (cm) - Depth 0.3 -Total Square Cm 36.9 -Wound/Ulcer Outcome Not Healed -Ulcer Cleansing Rinsed/ Irrigated with Saline -Foul Odor after Cleansing No -Bioengineered Tissue No -Bleeding Controlled with Pressure -Offloading No -Treatment Response Procedure Tolerated Well [See Physician Procedure note for Specifics] Pain Scale: 0-10 Numeric [Pain] -Is Patient Pain Free? Yes Musculoskeletal: No Tenderness to Palpation of Joints or Extremities, Muscle Wasting, - - Weakness lower extremity noted. No fluctuance or bogginess on palpation. The compartments remain soft to palpate left lower extremity Neurological: Sensory exam intact to light touch and pain, - Psych/Mental Status: Normal Affect, Appropriate Debridement Note Post-Debridement Measurements/Treatment WC - Nurse 2 - General Ulcer CM Notes Start: 12/13/19 13:03 Freq: Status: Active Protocol: Activity Type Activity Date Activity User E-Sign Co-Sign Detail Recorded Client Recorded Date Recorded By Document 12/13/19 13:27 [id number] 12/13/19 13:29 Document 12/20/19 16:33 [id number] 12/20/19 16:36 Document 12/27/19 11:10 [id number] 12/27/19 11:11 12/13/19 12/20/19 12/27/19 13:27 16:33 11:10 Wound Center Nurse 2 #1 LLE -Time 13:27 16:33 11:10 -Correct Patient Yes Yes Yes -Correct Side, Site, Position Yes Yes Yes -Correct Procedure Yes Yes Yes -Procedure Performed Yes Yes Yes -Type of Procedure Debridement Debridement Debridement -Clinical Debridement Subcutaneous Subcutaneous Selective -Post Debridement Size (cm) - Length 11.5 9.5 9 -Post Debridement Size (cm) - Width 9 9.1 4.1 -Post Debridement Size (cm) - Depth 0.3 0.3 0.3 -Total Square Cm 103.5 86.45 36.9 -Wound/Ulcer Outcome Not Healed Not Healed Not Healed -Ulcer Cleansing Rinsed/ Rinsed/ Rinsed/ Irrigated with Irrigated with Irrigated with Saline Saline Saline -Foul Odor after Cleansing No No No -Bioengineered Tissue No No No -Bleeding Controlled with Pressure Pressure Pressure -Other 75% of ulcer 50% debrided. debrided. 77. 63cm2 debrided. -Offloading No No No -Treatment Response Procedure Procedure Procedure Tolerated Well Tolerated Well Tolerated Well Pain Scale: 0-10 Numeric Is Patient Pain Free? Yes Yes Yes Wound debrided: anterior leg Laterality: Left Type of Debridement: Selective debridement Anesthesia Used: 5% Lidocaine Gel Depth: in the subcutaneous layer Percentage of wound debrided: 100 Instrument Used: #15 blade Tissue Removed: fibrous, devitalized tissue, biofilm, slough Severity: Fat Layer Exposed Amount of bleeding with debridement: Mild Bleeding Controlled with: Pressure Patient tolerated procedure well Assessment/Plan Active Problems Ulcer of left lower extremity with fat layer exposed (Chronic) Delayed wound healing (Chronic) Other specified peripheral vascular diseases (Chronic) bilateral lower extremity Left leg pain (Chronic) Leg edema, left (Chronic) Assessment: Left leg ulcer with fat layer exposed, lack of local infection signs. Bacterial contamination has resolved. Leg edema. Venous insufficiency. Peripheral vascular disease with intervention pending. Delayed healing. Malnutrition suspected Plan: I reviewed and discussed her case today. Debridement was performed as noted in the clinical panel. I recommended changing the dressing daily with santyl; this has been going well. She is advised to wash the leg daily with antimicrobial soap including medical grade hibiblens. She is doing well with this so far. An updated wound culture was obtained and she demonstrates growth of bacteria that is not a part of the normal david. I do not recommend oral antibiotic at this time and wants addressed this locally with antimicrobial soap. There is also noted she had a recent C. difficile episode and this is been treated by her medical doctor. I recommend she proceed with work-up for both arterial and venous disease. Venous reflux evaluation test was ordered. She was advised to avoid idle sitting and standing and to elevate the limb to control edema. If she has continued pain particularly with leg elevation, I recommend she intermittently dangles the leg as well. I also recommend she proceeds with noninvasive arterial study. This was performed and she will proceed with the recommended tests by vascular surgery prior to additional intervention. I reviewed Dr. Morel's plan and documentation. To d/c tubigrip due to inability to tolerate. I recommend least trying an Candelario wrap and this was applied today. It appears she does have some mild form of venous insufficiency after reviewing her venous Doppler exam. She does also have significant bilateral lower extremity monophasic waveforms with ABIs of around 0.5 bilaterally. I also recommend updated labs including CBC, CMP, and prealbumin to assess her current medical status. Leukocytosis was noted and this will be monitored pending clinical progression. Her prealbumin was 19.8 and proper nutrition and supplementation was reviewed. An order was provided previously and she was advised to obtain. To proceed with a proper control diet and nutrition supplementation to optimize healing. I answered all of her questions and explained the etiology of ulcer causes and the comprehensive wound healing plan. Her pain was additionally addressed by previously providing a prescription for topical 4% lidocaine cream for application susana-ulcer site and not directly in the ulcer site after dressing changes for this is when her pain is worse. I recommend she returns on a weekly basis. I answered her questions. . 2020 quality measures reviewed as the following: Reviewed today-pain level was confirmed in follow-up plan was documented, medication and allergy reconciliation was performed. Reviewed 12-27-2019: She denies falling this past year. Reviewed 11/15/2019-pneumonia vaccination was confirmed, influenza immunization was confirmed for this current season in July 2019, advanced care plan was confirmed with living will, she is a current tobacco non user, her blood pressure is elevated over 120/80 and I recommend she follows up with her primary care physician for medical management of this. Diet and exercise benefits were also discussed for educational purposes to optimize her wound healing and medical management.
[2020-01-03 11:47] VITALS: BP 128/48; PULSE 68; RESP 20; TEMP 36.5; BMI 30.6
--- NOTE | 2020-01-03 23:34 | PN.PCM_ITS ---
(1) Ulcer of left lower extremity with fat layer exposed Status: Chronic Current Visit: Yes Code(s): L97.922 - Non-pressure chronic ulcer of unspecified part of left lower leg with fat layer exposed (2) Delayed wound healing Status: Chronic Current Visit: Yes Code(s): T14.8XXD - Other injury of unspecified body region, subsequent encounter (3) Other specified peripheral vascular diseases Status: Chronic Current Visit: Yes Code(s): I73.89 - Other specified peripheral vascular diseases Comment: bilateral lower extremity (4) Left leg pain Status: Chronic Current Visit: Yes Code(s): M79.605 - Pain in left leg (5) C. difficile colitis Status: Resolved Current Visit: Yes Code(s): A04.72 - Enterocolitis due to Clostridium difficile, not specified as recurrent (6) Leg edema, left Status: Chronic Current Visit: Yes Code(s): R60.0 - Localized edema Type of Wound Date of Service: 01/03/20 Chief Complaint: Left leg ulcer History of Wound: This 69-year-old female with significant past medical history of polio with several medical sequela sustained a left leg ulcer that dates back to 2016. She has had periods of intermittent healing and this has returned on numerous occasions. She relates continued ulcer pain and drainage. She has only wash this ulcer site with hibiclens soap as advised. She changes the dressing with Santyl. She had her arterial and venous studies performed today and would like to review the results. She has significant pain to her leg this is reported as a 5 out of 10. Dangling her leg does temporarily get rid of the pain. She was seen by Dr. Morel, vascular surgeon who recommended EDUARDO studies and additional left leg duplex prior to proceeding with additional intervention with angiogram versus other procedure. She did have advanced imaging performed and now intervention is not recommended based off of the new scan results. She is advised to continue with her comprehensive wound healing plan. Compression was also recommended. She has been able to improve her compression and wearing Candelario wrap as advised. Progress of Wound: Improving - Physical Exam Vital Signs Temp Pulse Resp BP 97.7 F L 68 20 H 128/48 H 01/03/20 11:47 01/03/20 11:47 01/03/20 11:47 01/03/20 11:47 General: Alert, Oriented x3, Cooperative, No apparent distress HEENT: Atraumatic Extremities: No cyanosis, Capillary Refill Less than 3 Seconds, No Calf Tenderness - Negative Kishor and Hughes sign left, Diminished Peripheral Pulses, Edema - Decreased Skin: Ulcer/ Wound - No purulence, erythema, string, odor, infection. The skin is atrophic and hairless Wound Measurements and Assessment WC - Nurse 1 - General Ulcer Measurement Start: 12/13/19 13:03 Freq: Status: Active Protocol: Activity Type Activity Date Activity User E-Sign Co-Sign Detail Recorded Client Recorded Date Recorded By Document 01/03/20 11:47 DL [id number] 01/03/20 11:53 DL 01/03/20 11:47 Wound Center Nurse 1 [Ulcer Assessment] #1 LLE -Current Size (cm) - Length 7.7 -Current Size (cm) - Width 4 -Current Size (cm) - Depth 0.4 -Total Square Cm 30.8 -Photo Taken No -Exudate Amt Small -Exudate Type Serosanguineous -Wound Margin Distinct, Outline Attached -Granulation Amt Small (1-33%) -Granulation Quality Red -Necrosis Amt Large (67-100%) -Necrotic Tissue Type Adherent Slough -Structure Exposed N/A -Texture (Susana-wound Skin Appearance) Scarring -Moisture (Susana-wound Skin Appearance No Abnormality ) -Color (Susana-wound Skin Appearance) Hemosiderin Staining -Temperature (Susana-wound Skin No Abnormality Appearance) (Pt Warm) -Tenderness on Palpation (Susana-wound No Skin Appearance) -Ulcer Cleansing Rinsed/ Irrigated with Saline -Foul Odor after Cleansing No -Anesthetic Used 4% Lidocaine Solution WC - Nurse 2 - General Ulcer CM Notes Start: 12/13/19 13:03 Freq: Status: Active Protocol: Activity Type Activity Date Activity User E-Sign Co-Sign Detail Recorded Client Recorded Date Recorded By Document 01/03/20 11:58 DL [id number] 01/03/20 12:03 DL 01/03/20 11:58 Wound Center Nurse 2 [Procedure/Treatment] -Time 12:01 -Correct Patient Yes -Correct Side, Site, Position Yes -Correct Procedure Yes -Procedure Performed Yes -Type of Procedure Debridement -Clinical Debridement Subcutaneous -Post Debridement Size (cm) - Length 7.7 -Post Debridement Size (cm) - Width 4 -Post Debridement Size (cm) - Depth 0.4 -Total Square Cm 30.8 -Wound/Ulcer Outcome Not Healed -Ulcer Cleansing Rinsed/ Irrigated with Saline -Foul Odor after Cleansing No -Bioengineered Tissue No -Bleeding Controlled with Pressure -Offloading No -Treatment Response Procedure Tolerated Well [See Physician Procedure note for Specifics] Pain Scale: 0-10 Numeric [Pain] -Is Patient Pain Free? Yes Musculoskeletal: No Tenderness to Palpation of Joints or Extremities, Muscle Wasting Neurological: Sensory exam intact to light touch and pain Psych/Mental Status: Normal Affect, Appropriate Debridement Note Post-Debridement Measurements/Treatment WC - Nurse 2 - General Ulcer CM Notes Start: 12/13/19 13:03 Freq: Status: Active Protocol: Activity Type Activity Date Activity User E-Sign Co-Sign Detail Recorded Client Recorded Date Recorded By Document 12/13/19 13:27 JF [id number] 12/13/19 13:29 Document 12/20/19 16:33 JF [id number] 12/20/19 16:36 JF Document 12/27/19 11:10 JF [id number] 12/27/19 11:11 JF Document 01/03/20 11:58 DL [id number] 01/03/20 12:03 DL 12/13/19 12/20/19 12/27/19 13:27 16:33 11:10 Wound Center Nurse 2 #1 LLE -Time 13:27 16:33 11:10 -Correct Patient Yes Yes Yes -Correct Side, Site, Position Yes Yes Yes -Correct Procedure Yes Yes Yes -Procedure Performed Yes Yes Yes -Type of Procedure Debridement Debridement Debridement -Clinical Debridement Subcutaneous Subcutaneous Selective -Post Debridement Size (cm) - Length 11.5 9.5 9 -Post Debridement Size (cm) - Width 9 9.1 4.1 -Post Debridement Size (cm) - Depth 0.3 0.3 0.3 -Total Square Cm 103.5 86.45 36.9 -Wound/Ulcer Outcome Not Healed Not Healed Not Healed -Ulcer Cleansing Rinsed/ Rinsed/ Rinsed/ Irrigated with Irrigated with Irrigated with Saline Saline Saline -Foul Odor after Cleansing No No No -Bioengineered Tissue No No No -Bleeding Controlled with Pressure Pressure Pressure -Other 75% of ulcer 50% debrided. debrided. 77. 63cm2 debrided. -Offloading No No No -Treatment Response Procedure Procedure Procedure Tolerated Well Tolerated Well Tolerated Well Pain Scale: 0-10 Numeric Is Patient Pain Free? Yes Yes Yes 01/03/20 11:58 Wound Center Nurse 2 #1 LLE -Time 12:01 -Correct Patient Yes -Correct Side, Site, Position Yes -Correct Procedure Yes -Procedure Performed Yes -Type of Procedure Debridement -Clinical Debridement Subcutaneous -Post Debridement Size (cm) - Length 7.7 -Post Debridement Size (cm) - Width 4 -Post Debridement Size (cm) - Depth 0.4 -Total Square Cm 30.8 -Wound/Ulcer Outcome Not Healed -Ulcer Cleansing Rinsed/ Irrigated with Saline -Foul Odor after Cleansing No -Bioengineered Tissue No -Bleeding Controlled with Pressure -Other -Offloading No -Treatment Response Procedure Tolerated Well Pain Scale: 0-10 Numeric Is Patient Pain Free? Yes Wound debrided: anterior leg Laterality: Left Type of Debridement: Excisional debridement Anesthesia Used: 5% Lidocaine Gel Depth: in the subcutaneous layer Percentage of wound debrided: 100 Instrument Used: #15 blade Tissue Removed: fibrous, devitalized subcutaneous, biofilm, slough Severity: Fat Layer Exposed Amount of bleeding with debridement: Mild Bleeding Controlled with: Pressure Patient tolerated procedure well Assessment/Plan Active Problems Ulcer of left lower extremity with fat layer exposed (Chronic) Delayed wound healing (Chronic) Other specified peripheral vascular diseases (Chronic) bilateral lower extremity Left leg pain (Chronic) Leg edema, left (Chronic) Assessment: Left leg ulcer with fat layer exposed, lack of local infection signs. Bacterial contamination has resolved. Leg edema. Venous insufficiency. Peripheral vascular disease with intervention pending. Delayed healing. Mario berman suspected Plan: I reviewed and discussed her case today. Debridement was performed as noted in the clinical panel. I recommended changing the dressing daily with sa ntyl; this has been going well. She is advised to wash the leg daily with antimicrobial soap including medical grade hibiblens. She is doing well with this so far. An updated wound culture was obtained and she demonstrates growth of bacteria that is not a part of the normal david. I do not recommend oral antibiotic at this time and wants addressed this locally with antimicrobial soap. There is also noted she had a recent C. difficile episode and this is been treated by her medical doctor. I recommend she proceed with work-up for both arterial and venous disease. Venous reflux evaluation test was ordered. She was advised to avoid idle sitting and standing and to elevate the limb to control edema. If she has continued pain particularly with leg elevation, I recommend she intermittently dangles the leg as well. I also recommend she proceeds with noninvasive arterial study. This was performed and she will proceed with the recommended tests by vascular surgery prior to additional intervention. I reviewed Dr. Morel's plan and documentation. She additionally had an updated test performed and intervention is not recommended at this time from an arterial standpoint. She will follow-up in 6 months to see if it is warranted at that time or needed. To d/c tubigrip due to inability to tolerate. I recommend least trying an Candelario wrap and this was applied today. It appears she does have some mild form of venous insufficiency after reviewing her venous Doppler exam. She does also have significant bilateral lower extremity monophasic waveforms with ABIs of around 0.5 bilaterally. I also recommend updated labs including CBC, CMP, and prealbumin to assess her current medical status. Leukocytosis was noted and this will be monitored pending clinical progression. Her prealbumin was 19.8 and proper nutrition and supplementation was reviewed. An order was provided previously and she was advised to obtain. To proceed with a proper control diet and nutrition supplementation to optimize healing. I answered all of her questions and explained the etiology of ulcer causes and the comprehensive wound healing plan. Her pain was additionally addressed by previously providing a prescription for topical 4% lidocaine cream for application susana-ulcer site and not directly in the ulcer site after dressing changes for this is when her pain is worse. I recommend she returns on a weekly basis. I answered her questions. . 2020 quality measures reviewed as the following: Reviewed today-pain level was confirmed in follow-up plan was documented, medication and allergy reconciliation was performed. Reviewed 12-27-2019: She denies falling this past year. Reviewed 11/15/2019-pneumonia vaccination was confirmed, influenza immunization was confirmed for this current season in July 2019, advanced care plan was confirmed with living will, she is a current tobacco non user, her blood pressure is elevated over 120/80 and I recommend she follows up with her primary care physician for medical management of this. Diet and exercise benefits were also discussed for educational purposes to optimize her wound healing and medical management.
== END 2020-01-06 23:59 ==
LOC: WC 11:30
PROVIDERS: Referring Provider Podiatrist; Visit Provider Podiatrist
DX: I73.9 Peripheral vascular disease, unspecified (principal); R60.0 Localized edema; L97.822 Non-pressure chronic ulcer of other part of left lower leg with fat layer exposed; M79.605 Pain in left leg; Z86.12 Personal history of poliomyelitis; I87.2 Venous insufficiency (chronic) (peripheral)
CPT/HCPCS: 11042; 11045; 97597; 97598

== ENCOUNTER 2020-01-24 16:30 | Outpatient (RCR) | payer MEDICARE, OTHER, SELFPAY ==
[2020-01-07 00:44] VITALS: BP 128/48; PULSE 68; RESP 20; TEMP 36.5
[2020-01-10 16:31] VITALS: BP 132/65; PULSE 117; RESP 18; TEMP 37; BMI 30.6
--- NOTE | 2020-01-10 21:49 | PN.PCM_ITS ---
(1) Ulcer of left lower extremity with fat layer exposed Status: Chronic Code(s): L97.922 - Non-pressure chronic ulcer of unspecified part of left lower leg with fat layer exposed (2) Delayed wound healing Status: Chronic Code(s): T14.8XXD - Other injury of unspecified body region, subsequent encounter (3) Venous insufficiency Status: Chronic Code(s): I87.2 - Venous insufficiency (chronic) (peripheral) Comment: left Greater saphenous vein (4) Other specified peripheral vascular diseases Status: Chronic Code(s): I73.89 - Other specified peripheral vascular diseases Comment: bilateral lower extremity (5) Left leg pain Status: Chronic Code(s): M79.605 - Pain in left leg Type of Wound Date of Service: 01/10/20 Chief Complaint: Left leg ulcer History of Wound: This 69-year-old female with significant past medical history of polio with several medical sequela sustained a left leg ulcer that dates back to 2016. She has had periods of intermittent healing and this has returned on numerous occasions. She relates continued ulcer pain and drainage. She has only wash this ulcer site with hibiclens soap as advised. She changes the dressing with Santyl. She had her arterial and venous studies performed today and would like to review the results. She has significant pain to her leg this is reported as a 5 out of 10. Dangling her leg does temporarily get rid of the pain. She was seen by Dr. Morel, vascular surgeon who recommended EDUARDO studies and additional left leg duplex prior to proceeding with additional intervention with angiogram versus other procedure. She did have advanced imaging performed and now intervention is not recommended based off of the new scan results. She is advised to continue with her comprehensive wound healing plan. Compression was also recommended. She has been able to improve her compression and wearing Candelario wrap as advised. Progress of Wound: Improving - Physical Exam Vital Signs Temp Pulse Resp BP 98.6 F 117 H 18 132/65 H 01/10/20 16:31 01/10/20 16:31 01/10/20 16:31 01/10/20 16:31 General: Alert, Oriented x3, Cooperative, No apparent distress Extremities: No cyanosis, Capillary Refill Less than 3 Seconds, No Calf Tenderness, Diminished Peripheral Pulses, Edema - decreased Skin: Ulcer/ Wound - no purulence, no erythema, no streaking, no infection. adjacent skin is hairless and atrophic Wound Measurements and Assessment WC - Nurse 1 - General Ulcer Measurement Start: 01/10/20 16:31 Freq: Status: Active Protocol: Activity Type Activity Date Activity User E-Sign Co-Sign Detail Recorded Client Recorded Date Recorded By Document 01/10/20 16:31 MW [id number] 01/10/20 16:46 MW 01/10/20 16:31 Wound Center Nurse 1 [Ulcer Assessment] #1 LLE -Combined with other wound No -Current Size (cm) - Length 8.0 -Current Size (cm) - Width 3.8 -Current Size (cm) - Depth 0.3 -Total Square Cm 30.40 -Date of Last Picture (Recall this 01/10/20 field) -Photo Taken Yes -Epithelialization None Present -Tunneling No -Undermining/Tunneling No -Circular Undermining No -Exudate Amt Large -Exudate Type Serosanguineous -Wound Margin Flat & Intact -Granulation Amt None Present (0 %) -Granulation Quality N/A -Slough/Fibrin No -Necrosis Amt Large (67-100%) -Necrotic Tissue Type Adherent Slough -Structure Exposed N/A -Texture (Susana-wound Skin Appearance) Assessed, Localized Edema ,Scarring -Moisture (Susana-wound Skin Appearance No Abnormality, ) Assessed -Color (Susana-wound Skin Appearance) Assessed,Rubor -Temperature (Susana-wound Skin No Abnormality Appearance) (Pt Warm) -Ulcer Cleansing SOAP AND WATER -Foul Odor after Cleansing No -Anesthetic Used 5% Lidocaine Gel [Edema Assessment] -Lower Limb Edema Present Yes -Left Calf (cm) 31.5 -Left Ankle (cm) 21.5 - Nurse 2 - General Ulcer CM Notes Start: 01/10/20 16:31 Freq: Status: Active Protocol: Activity Type Activity Date Activity User E-Sign Co-Sign Detail Recorded Client Recorded Date Recorded By Document 01/10/20 16:58 JF [id number] 01/10/20 16:59 JF 01/10/20 16:58 Wound Center Nurse 2 [Procedure/Treatment] #1 LLE -Time 16:58 -Correct Patient Yes -Correct Side, Site, Position Yes -Correct Procedure Yes -Procedure Performed Yes -Type of Procedure Debridement -Clinical Debridement Subcutaneous -Post Debridement Size (cm) - Length 8 -Post Debridement Size (cm) - Width 3.8 -Post Debridement Size (cm) - Depth 0.3 -Total Square Cm 30.4 -Wound/Ulcer Outcome Not Healed -Ulcer Cleansing Rinsed/ Irrigated with Saline -Foul Odor after Cleansing No -Bioengineered Tissue No -Bleeding Controlled with Pressure -Offloading No -Treatment Response Procedure Tolerated Well [See Physician Procedure note for Specifics] Pain Scale: 0-10 Numeric [Pain] -Is Patient Pain Free? Yes Musculoskeletal: No Tenderness to Palpation of Joints or Extremities, Muscle Wasting Neurological: Sensory exam intact to light touch and pain Psych/Mental Status: Normal Affect, Appropriate Debridement Note Post-Debridement Measurements/Treatment WC - Nurse 2 - General Ulcer CM Notes Start: 01/10/20 16:31 Freq: Status: Active Protocol: Activity Type Activity Date Activity User E-Sign Co-Sign Detail Recorded Client Recorded Date Recorded By Document 01/10/20 16:58 [email or web address] [id number] 01/10/20 16:59 FELISHA 01/10/20 16:58 Wound Center Nurse 2 #1 LLE -Time 16:58 -Correct Patient Yes -Correct Side, Site, Position Yes -Correct Procedure Yes -Procedure Performed Yes -Type of Procedure Debridement -Clinical Debridement Subcutaneous -Post Debridement Size (cm) - Length 8 -Post Debridement Size (cm) - Width 3.8 -Post Debridement Size (cm) - Depth 0.3 -Total Square Cm 30.4 -Wound/Ulcer Outcome Not Healed -Ulcer Cleansing Rinsed/ Irrigated with Saline -Foul Odor after Cleansing No -Bioengineered Tissue No -Bleeding Controlled with Pressure -Offloading No -Treatment Response Procedure Tolerated Well Pain Scale: 0-10 Numeric Is Patient Pain Free? Yes Wound debrided: anterior leg Laterality: Left Type of Debridement: Excisional debridement Anesthesia Used: 5% Lidocaine Gel Depth: in the subcutaneous layer Percentage of wound debrided: 100 Instrument Used: #15 blade Tissue Removed: fibrous, devitalized subcutaneous, biofilm, slough Severity: Fat Layer Exposed Amount of bleeding with debridement: Mild Bleeding Controlled with: Pressure Patient tolerated procedure well Assessment/Plan Assessment: Left leg ulcer with fat layer exposed, lack of local infection signs. Bacterial contamination has resolved. Leg edema. Venous insufficiency. Peripheral vascular disease with intervention pending. Delayed healing. Malnutrition suspected Plan: I reviewed and discussed her case today. Debridement was performed as noted in the clinical panel. I recommended changing the dressing daily with santyl; this has been going well. She is advised to wash the leg daily with antimicrobial soap including medical grade hibiblens. She is doing well with this so far. An updated wound culture was obtained and she demonstrates growth of bacteria that is not a part of the normal david. I do not recommend oral antibiotic at this time and wants addressed this locally with antimicrobial soap. There is also noted she had a recent C. difficile episode and this is been treated by her medical doctor. I recommend she proceed with work-up for both arterial and venous disease. Venous reflux evaluation test was ordered. She was advised to avoid idle sitting and standing and to elevate the limb to control edema. If she has continued pain particularly with leg elevation, I recommend she intermittently dangles the leg as well. I also recommend she proceeds with noninvasive arterial study. This was performed and she will proceed with the recommended tests by vascular surgery prior to additional intervention. I reviewed Dr. Morel's plan and documentation. She additionally had an updated test performed and intervention is not recommended at this time from an arterial standpoint. She will follow-up in 6 months to see if it is warranted at that time or needed. To d/c tubigrip due to inability to tolerate. I recommend least trying an Candelario wrap and this was applied today. It appears she does have some mild form of venous insufficiency after reviewing her venous Doppler exam. She does also have significant bilateral lower extremity monophasic waveforms with ABIs of around 0.5 bilaterally. I also recommend updated labs including CBC, CMP, and prealbumin to assess her current medical status. Leukocytosis was noted and this will be monitored pending clinical progression. Her prealbumin was 19.8 and proper nutrition and supplementation was reviewed. An order was provided previously and she was advised to obtain. To proceed with a proper control diet and nutrition supplementation to optimize healing. I answered all of her questions and explained the etiology of ulcer causes and the comprehensive wound healing plan. Her pain was additionally addr essed by previously providing a prescription for topical 4% lidocaine cream for application susana-ulcer site and not directly in the ulcer site after dressing changes for this is when her pain is worse. I recommend she returns on a weekly basis. I answered her questions. . 2020 quality measures reviewed as the following: Reviewed today-pain level was confirmed in follow-up plan was documented, medication and allergy reconciliation was performed. Reviewed 12-27-2019: She denies falling this past year. Reviewed 11/15/2019- pneumonia vaccination was confirmed, influenza immunization was confirmed for this current season in July 2019, advanced care plan was confirmed with living will, she is a current tobacco non user, her blood pressure is elevated over 120/80 and I recommend she follows up with her primary care physician for medical management of this. Diet and exercise benefits were also discussed for educational purposes to optimize her wound healing and medical management.
[2020-01-17 16:09] VITALS: BP 133/70; PULSE 105; RESP 18; TEMP 36.6; BMI 30.6
--- NOTE | 2020-01-17 16:29 | PN.PCM_ITS ---
(1) Ulcer of left lower extremity, limited to breakdown of skin Status: Acute Code(s): L97.921 - Non-pressure chronic ulcer of unspecified part of left lower leg limited to breakdown of skin (2) Ulcer of left lower extremity with fat layer exposed Status: Chronic Code(s): L97.922 - Non-pressure chronic ulcer of unspecified part of left lower leg with fat layer exposed (3) Delayed wound healing Status: Chronic Code(s): T14.8XXD - Other injury of unspecified body region, subsequent encounter (4) Venous insufficiency Status: Chronic Code(s): I87.2 - Venous insufficiency (chronic) (peripheral) Comment: left Greater saphenous vein (5) Other specified peripheral vascular diseases Status: Chronic Code(s): I73.89 - Other specified peripheral vascular diseases Comment: bilateral lower extremity (6) Left leg pain Status: Chronic Code(s): M79.605 - Pain in left leg Type of Wound Date of Service: 01/17/20 Chief Complaint: Left leg ulcer History of Wound: This 69-year-old female with significant past medical history of polio with several medical sequela sustained a left leg ulcer that dates back to 2016. She has had periods of intermittent healing and this has returned on numerous occasions. She relates continued ulcer pain and drainage. She changes the dressing with Santyl. She had her arterial and venous studies performed today and would like to review the results. Her pain is moderate. She was seen by Dr. Morel, vascular surgeon who recommended EDUARDO studies and additional left leg duplex prior to proceeding with additional intervention with angiogram versus other procedure. She did have advanced imaging performed and now intervention is not recommended based off of the new scan results. She is advised to continue with her comprehensive wound healing plan. Compression was also recommended. She has been able to improve her compression and wearing Candelario wrap as advised. She relates she has a new skin break (wound) next to the original ulcer site that is weeping. The site is tender and the onset was within the past week. She denies odor or redness or purulent drainage. Progress of Wound: Improving - Physical Exam Vital Signs Temp Pulse Resp BP 97.8 F 105 H 18 133/70 H 01/17/20 16:09 01/17/20 16:09 01/17/20 16:09 01/17/20 16:09 General: Alert, Oriented x3, Cooperative, No apparent distress Extremities: No cyanosis, Capillary Refill Less than 3 Seconds, No Calf Tenderness, Diminished Peripheral Pulses, Edema Skin: Ulcer/ Wound - No purulence, erythema, streaking, odor, infection. Adjacent skin is hairless and atrophic. Medial to the main ulcer site, there is some hemorrhagic serous weeping tissue noted. There is no fluctuance or bogginess on palpation. Her skin is also hyperpigmented Wound Measurements and Assessment WC - Nurse 1 - General Ulcer Measurement Start: 01/10/20 16:31 Freq: Status: Active Protocol: Activity Type Activity Date Activity User E-Sign Co-Sign Detail Recorded Client Recorded Date Recorded By Document 01/17/20 16:09 SC [id number] 01/17/20 16:19 SC 01/17/20 16:09 Wound Center Nurse 1 [Ulcer Assessment] #1 LLE -Combined with other wound No -Current Size (cm) - Length 7.5 -Current Size (cm) - Width 4 -Current Size (cm) - Depth 0.3 -Total Square Cm 30.0 -Photo Taken No -Epithelialization None Present -Tunneling No -Undermining/Tunneling No -Circular Undermining No -Exudate Amt Medium -Exudate Type Serosanguineous -Wound Margin Thickened -Granulation Amt Small (1-33%) -Granulation Quality Red -Slough/Fibrin Yes -Necrosis Amt Large (67-100%) -Necrotic Tissue Type Adherent Slough -Texture (Susana-wound Skin Appearance) Assessed, Scarring -Moisture (Susana-wound Skin Appearance Assessed,Dry/ ) Scaly -Color (Susana-wound Skin Appearance) Assessed, Erythema -Temperature (Susana-wound Skin No Abnormality Appearance) (Pt Warm) -Tenderness on Palpation (Susana-wound Yes Skin Appearance) -Ulcer Cleansing soapy water -Foul Odor after Cleansing No -Anesthetic Used 4% Lidocaine Solution [Edema Assessment] -Lower Limb Edema Present Yes -Left Calf (cm) 33 -Left Ankle (cm) 21 Musculoskeletal: No Tenderness to Palpation of Joints or Extremities, Muscle W asting, - - Post polio weakness left lower extremity Neurological: Sensory exam intact to light touch and pain Psych/Mental Status: Normal Affect, Appropriate Debridement Note Post-Debridement Measurements/Treatment TOMÁS - Nurse 2 - General Ulcer CM Notes Start: 01/10/20 16:31 Freq: Status: Active Protocol: Activity Type Activity Date Activity User E-Sign Co-Sign Detail Recorded Client Recorded Date Recorded By Document 01/10/20 16:58 JF [id number] 01/10/20 16:59 JF 01/10/20 16:58 Wound Center Nurse 2 #1 LLE -Time 16:58 -Correct Patient Yes -Correct Side, Site, Position Yes -Correct Procedure Yes -Procedure Performed Yes -Type of Procedure Debridement -Clinical Debridement Subcutaneous -Post Debridement Size (cm) - Length 8 -Post Debridement Size (cm) - Width 3.8 -Post Debridement Size (cm) - Depth 0.3 -Total Square Cm 30.4 -Wound/Ulcer Outcome Not Healed -Ulcer Cleansing Rinsed/ Irrigated with Saline -Foul Odor after Cleansing No -Bioengineered Tissue No -Bleeding Controlled with Pressure -Offloading No -Treatment Response Procedure Tolerated Well Pain Scale: 0-10 Numeric Is Patient Pain Free? Yes Wound debrided: anterior leg Laterality: Left Type of Debridement: Excisional debridement Anesthesia Used: 5% Lidocaine Gel Depth: in the subcutaneous layer Percentage of wound debrided: 100 Instrument Used: #15 blade Tissue Removed: fibrous, devitalized subcutaneous, biofilm, slough Severity: Fat Layer Exposed Amount of bleeding with debridement: Mild Bleeding Controlled with: Pressure Patient tolerated procedure well - Additional Wound Wound debrided: anterior medial leg Laterality: Left Tissue Removed: no debridement performed; subhemorrhagic weeping tissue only Assessment/Plan Assessment: Left leg ulcer with fat layer exposed, lack of local infection signs. leg new skin discontinuity anterior medial leg, left. Bacterial contamination has resolved. Leg edema. Venous insufficiency. Peripheral vascular disease with intervention pending. Delayed healing. Malnutrition suspected Plan: I reviewed and discussed her case today. Debridement was performed as noted in the clinical panel. I recommended changing the dressing daily with santyl; this has been going well. I recommended that she applies hydrogel to the adjacent sub-hemorrhagic new wound site. She is reassured no signs of infection are noted. She is advised to wash the leg daily with antimicrobial soap including medical grade hibiblens. She is doing well with this so far. An updated wound culture was obtained and she demonstrates growth of bacteria that is not a part of the normal david. I do not recommend oral antibiotic at this time and wants addressed this locally with antimicrobial soap. There is also noted she had a recent C. difficile episode and this is been treated by her medical doctor. I recommend she proceed with work-up for both arterial and venous disease. Venous reflux evaluation test was ordered. She was advised to avoid idle sitting and standing and to elevate the limb to control edema. If she has continued pain particularly with leg elevation, I recommend she intermittently dangles the leg as well. I also recommend she proceeds with noninvasive arterial study. This was performed and she will proceed with the recommended tests by vascular surgery prior to additional intervention. I reviewed Dr. Morel's plan and documentation. She additionally had an updated test performed and intervention is not recommended at this time from an arterial standpoint. She will follow-up in 6 months to see if it is warranted at that time or needed. To d/c tubigrip due to inability to tolerate. I recommend le ast trying an Candelario wrap and this was applied today. It appears she does have some mild form of venous insufficiency after reviewing her venous Doppler exam. She does also have significant bilateral lower extremity monophasic waveforms with ABIs of around 0.5 bilaterally. I also recommend updated labs including CBC, CMP, and prealbumin to assess her current medical status. Leukocytosis was noted and this will be monitored pending clinical progression. Her prealbumin was 19.8 and proper nutrition and supplementation was reviewed. An order was provided previously and she was advised to obtain. To proceed with a proper control diet and nutrition supplementation to optimize healing. I answered all of her questions and explained the etiology of ulcer causes and the comprehensive wound healing plan. Her pain was additionally addressed by previously providing a prescription for topical 4% lidocaine cream for application susana-ulcer site and not directly in the ulcer site after dressing ch anges for this is when her pain is worse. I recommend she returns on a weekly basis. I answered her questions. . 2020 quality measures reviewed as the following: Reviewed today-pain level was confirmed in follow-up plan was documented, medication and allergy reconciliation was performed. Reviewed 12-27-2019: She denies falling this past year. Reviewed 11/15/2019- pneumonia vaccination was confirmed, influenza immunization was confirmed for this current season in July 2019, advanced care plan was confirmed with living will, she is a current tobacco non user, her blood pressure is elevated over 120/80 and I recommend she follows up with her primary care physician for medical management of this. Diet and exercise benefits were also discussed for educational purposes to optimize her wound healing and medical management.
[2020-01-24 16:34] VITALS: BP 146/69; PULSE 69; RESP 18; TEMP 38.2; BMI 30.6
--- NOTE | 2020-01-24 16:36 | WC ---
PT W/ LOW GRADE TEMP (110.7 TEMPORAL) AND CHRONIC CONGESTED COUGH. HAS HAD FOR A FEW WKS. DENIES FEELING ILL. WOUND W/OUT S/SX INFECTION. DR HOWARD IN TO CHECK. THIS NURSE REDRESSED W/ HYDROGEL, ADAPTIC, GAUZE, ABDS, AND HOLLIE FOR COMPRESSION. DR HOWARD VERBALLY ENCOURAGED/REFERRED PT TO PCP FOR LOW GRADE TEMP/RESP SX. PT AGREEABLE. PPE PER POLICY.
--- NOTE | 2020-01-25 08:56 | PCM.WC.PN ---
(1) Ulcer of left lower extremity, limited to breakdown of skin Status: Acute Current Visit: Yes Code(s): L97.921 - Non-pressure chronic ulcer of unspecified part of left lower leg limited to breakdown of skin (2) Ulcer of left lower extremity with fat layer exposed Status: Chronic Current Visit: Yes Code(s): L97.922 - Non-pressure chronic ulcer of unspecified part of left lower leg with fat layer exposed (3) Delayed wound healing Status: Chronic Current Visit: Yes Code(s): T14.8XXD - Other injury of unspecified body region, subsequent encounter (4) Venous insufficiency Status: Chronic Current Visit: Yes Code(s): I87.2 - Venous insufficiency (chronic) (peripheral) Comment: left Greater saphenous vein (5) Other specified peripheral vascular diseases Status: Chronic Current Visit: Yes Code(s): I73.89 - Other specified peripheral vascular diseases Comment: bilateral lower extremity (6) Left leg pain Status: Chronic Current Visit: Yes Code(s): M79.605 - Pain in left leg Type of Wound Date of Service: 01/24/20 Chief Complaint: Left leg ulcer History of Wound: This 69-year-old female with significant past medical history of polio with several medical sequela sustained a left leg ulcer that dates back to 2016. She has had periods of intermittent healing and this has returned on numerous occasions. She relates continued ulcer pain and drainage. She changes the dressing with Santyl. She had her arterial and venous studies performed today and would like to review the results. Her pain is moderate. She was seen by Dr. Morel, vascular surgeon who recommended EDUARDO studies and additional left leg duplex prior to proceeding with additional intervention with angiogram versus other procedure. She did have advanced imaging performed and now intervention is not recommended based off of the new scan results. She is advised to continue with her comprehensive wound healing plan. Compression was also recommended. She has been able to improve her compression and wearing Candelario wrap as advised. She relates her recent area of newer skin break (wound) next to the original ulcer site that is weeping less and this is improving. She denies odor or redness or purulent drainage. She notices more pink tissue around the ulcer and redness within the ulcer bed; she is worried it is getting infected. She also has a low grade cough that she relates is chronic for over a month and she has a low grade fever today as well on presentation. She was asked to wear a mask. Progress of Wound: Improving - Physical Exam Vital Signs Temp Pulse Resp BP 100.7 F H 69 18 146/69 H 01/24/20 16:34 01/24/20 16:34 01/24/20 16:34 01/24/20 16:34 General: Alert, Oriented x3, Cooperative, No apparent distress Extremities: No cyanosis, Capillary Refill Less than 3 Seconds, No Calf Tenderness, Diminished Peripheral Pulses, Edema Skin: Ulcer/ Wound - no purulence, no erythema, no streaking, no odor, no infection noted. increased ulcer granulation tissue is healthy and granular with minimal fibrous tissue noted. the peripheral skin is more pink , healthy, and remodeling. The adjacent skin is hairless, atrophic, and with some hyperpigmentation Wound Measurements and Assessment WC - Nurse 1 - General Ulcer Measurement Start: 01/10/20 16:31 Freq: Status: Active Protocol: Activity Type Activity Date Activity User E-Sign Co-Sign Detail Recorded Client Recorded Date Recorded By Document 01/24/20 16:34 [facility] [id number] 01/24/20 16:36 [facility] 01/24/20 16:34 Wound Center Nurse 1 [Ulcer Assessment] #1 LLE -Epithelialization None Present -Tunneling No -Undermining/Tunneling No -Circular Undermining No -Exudate Amt Small -Exudate Type Serosanguineous -Wound Margin Distinct, Outline Attached -Granulation Amt Medium (34-66%) -Granulation Quality Red -Slough/Fibrin Yes -Necrosis Amt Medium (34-66%) -Necrotic Tissue Type Adherent Slough -Texture (Peter-wound Skin Appearance) Assessed, Scarring -Moisture (Peter-wound Skin Appearance Assessed ) -Color (Peter-wound Skin Appearance) Assessed -Temperature (Peter-wound Skin No Abnormality Appearance) (Pt Warm) -Tenderness on Palpation (Peter-wound Yes Skin Appearance) -Ulcer Cleansing soapy water -Foul Odor after Cleansing No -Anesthetic Used 4% Lidocaine Solution - Nurse 2 - General Ulcer CM Notes Start: 01/10/20 16:31 Freq: Status: Active Protocol: Activity Type Activity Date Activity User E-Sign Co-Sign Detail Recorded Client Recorded Date Recorded By Document 01/24/20 16:32 [id number] 01/24/20 16:33 01/24/20 16:32 Wound Center Nurse 2 [Procedure/Treatment] -Correct Patient No -Correct Side, Site, Position No -Correct Procedure No -Procedure Performed No -Wound/Ulcer Outcome Not Healed -Ulcer Cleansing Rinsed/ Irrigated with Saline -Foul Odor after Cleansing No -Bioengineered Tissue No -Bleeding Controlled with Pressure -Offloading No -Treatment Response Procedure Tolerated Well [See Physician Procedure note for Specifics] Pain Scale: 0-10 Numeric [Pain] -Is Patient Pain Free? Yes Musculoskeletal: No Tenderness to Palpation of Joints or Extremities, Muscle Wasting, Tenderness - mild with wound manipulation, - - weakness consistent with post polio condition left lower extremity. compartments are soft to palpate left lower extremity Neurological: Sensory exam intact to light touch and pain Psych/Mental Status: Normal Affect, Appropriate Debridement Note Post-Debridement Measurements/Treatment WC - Nurse 2 - General Ulcer CM Notes Start: 01/10/20 16:31 Freq: Status: Active Protocol: Activity Type Activity Date Activity User E-Sign Co-Sign Detail Recorded Client Recorded Date Recorded By Document 01/10/20 16:58 [id number] 01/10/20 16:59 Document 01/17/20 16:30 [place] [id number] 01/17/20 16:31 [place] Document 01/24/20 16:32 [id number] 01/24/20 16:33 01/10/20 01/17/20 01/24/20 16:58 16:30 16:32 Wound Center Nurse 2 #1 LLE -Time 16:58 16:30 -Correct Patient Yes Yes No -Correct Side, Site, Position Yes Yes No -Correct Procedure Yes Yes No -Procedure Performed Yes Yes No -Type of Procedure Debridement Debridement -Clinical Debridement Subcutaneous Subcutaneous -Post Debridement Size (cm) - Length 8 7.5 -Post Debridement Size (cm) - Width 3.8 4.1 -Post Debridement Size (cm) - Depth 0.3 0.3 -Total Square Cm 30.4 30.75 -Wound/Ulcer Outcome Not Healed Not Healed Not Healed -Ulcer Cleansing Rinsed/ Rinsed/ Rinsed/ Irrigated with Irrigated with Irrigated with Saline Saline Saline -Foul Odor after Cleansing No No No -Bioengineered Tissue No No No -Bleeding Controlled with Pressure Pressure Pressure -Offloading No No No -Treatment Response Procedure Procedure Procedure Tolerated Well Tolerated Well Tolerated Well Pain Scale: 0-10 Numeric Is Patient Pain Free? Yes Yes Yes No debridement was completed today Assessment/Plan Active Problems Ulcer of left lower extremity with fat layer exposed (Chronic) Delayed wound healing (Chronic) Venous insufficiency (Chronic) left Greater saphenous vein Other specified peripheral vascular diseases (Chronic) bilateral lower extremity Left leg pain (Chronic) Ulcer of left lower extremity, limited to breakdown of skin (Acute) Assessment: Left leg ulcer with fat layer exposed, lack of local infection signs. leg new skin discontinuity anterior medial leg, left - improving. Bacterial contamination has resolved. Leg edema. Venous insufficiency. Peripheral vascular disease with intervention pending. Delayed healing. Malnutrition suspected Plan: I reviewed and discussed her case today. Debridement was not performed today. I recommended changing the dressing daily with santyl; this has been going well. I recommended that she applies hydrogel to the adjacent sub-hemorrhagic new wound site. After completion of the santyl tube, she can transition to the hydrogel. She was reassured no local signs of infection were noted. She was advised to wash the leg daily with antimicrobial soap including medical grade hibiblens. She is doing well with this so far. I recommend she proceed with work-up for both arterial and venous disease. Venous reflux evaluation test was ordered. She was advised to avoid idle sitting and standing and to elevate the limb to control edema. If she has continued pain particularly with leg elevation, I recommend she intermittently dangles the leg as well. I also recommend she proceeds with noninvasive arterial study. This was performed and she will proceed with the recommended tests by vascular surgery prior to additional intervention. I reviewed Dr. Morel's plan and documentation. She additionally had an updated test performed and intervention is not recommended at this time from an arterial standpoint. She will follow-up in 6 months to see if it is warranted at that time or needed. To d/c tubigrip due to inability to tolerate. I recommend at least continuing with the use of an Candelario wrap and this was applied again today. It appears she does have some mild form of venous insufficiency after reviewing her venous Doppler exam. She does also have significant bilateral lower extremity monophasic waveforms with ABIs of around 0.5 bilaterally. I also recommend updated labs including CBC, CMP, and prealbumin to assess her current medical status. Leukocytosis was noted and this will be monitored pending clinical progression. Her prealbumin was 19.8 and proper nutrition and supplementation was reviewed. An order was provided previously and she was advised to obtain. To proceed with a proper control diet and nutrition supplementation to optimize healing. I answered all of her questions and explained the etiology of ulcer causes and the comprehensive wound healing plan. Her pain was additionally addressed by previously providing a prescription for topical 4% lidocaine cream for application peter-ulcer site and not directly in the ulcer site after dressing changes for this is when her pain is worse. I recommend she returns on a weekly to bi weekly basis. I answered her questions. It is noted she has a minor chronic cough and a low grade fever. She was asked to wear a mask. Staff wore PPE per hospital protocol. She was seen today due to concern of leg infection and this is not suspected at this time. She was advised to call her primary care physician and to take community precautions during this time of covid 19 pandemic. She demonstrates understanding. . 2020 quality measures reviewed as the following: Reviewed today-pain level was confirmed in follow-up plan was documented, medication and allergy reconciliation was performed. Reviewed 12-27-2019: She denies falling this past year. Reviewed 11/15/2019-pneumonia vaccination was confirmed, influenza immunization was confirmed for this current season in July 2019, advanced care plan was confirmed with living will, she is a current tobacco non user, her blood pressure is elevated over 120/80 and I recommend she follows up with her primary care physician for medical management of this. Diet and exercise benefits were also discussed for educational purposes to optimize her wound healing and medical management.
== END 2020-02-06 23:59 ==
LOC: WC 16:30
PROVIDERS: Referring Provider Podiatrist; Visit Provider Podiatrist
DX: I73.89 Other specified peripheral vascular diseases (principal); M79.605 Pain in left leg; L97.822 Non-pressure chronic ulcer of other part of left lower leg with fat layer exposed; I87.2 Venous insufficiency (chronic) (peripheral); Z86.12 Personal history of poliomyelitis; R60.0 Localized edema
CPT/HCPCS: 11042; 11045; 99213; G0463

== ENCOUNTER 2020-03-06 14:30 | Outpatient (RCR) | payer MEDICARE, OTHER, SELFPAY ==
[2020-02-07 00:35] VITALS: BP 146/69; PULSE 69; RESP 18; TEMP 38.2
[2020-02-07 16:18] VITALS: BP 137/71; PULSE 115; RESP 20; TEMP 37.2; BMI 30.6
--- NOTE | 2020-02-07 22:54 | PN.PCM_ITS ---
(1) Ulcer of left lower extremity with fat layer exposed Status: Chronic Current Visit: Yes Code(s): L97.922 - Non-pressure chronic ulcer of unspecified part of left lower leg with fat layer exposed (2) Delayed wound healing Status: Chronic Current Visit: Yes Code(s): T14.8XXD - Other injury of unspecified body region, subsequent encounter (3) Venous insufficiency Status: Chronic Current Visit: Yes Code(s): I87.2 - Venous insufficiency (chronic) (peripheral) Comment: left Greater saphenous vein (4) Other specified peripheral vascular diseases Status: Chronic Current Visit: Yes Code(s): I73.89 - Other specified peripheral vascular diseases Comment: bilateral lower extremity (5) Left leg pain Status: Chronic Current Visit: Yes Code(s): M79.605 - Pain in left leg (6) Leg edema, left Status: Chronic Current Visit: Yes Code(s): R60.0 - Localized edema Type of Wound Date of Service: 02/07/20 Chief Complaint: Left leg ulcer History of Wound: This 69-year-old female with significant past medical history of polio with several medical sequela sustained a left leg ulcer that dates back to 2016. She has had periods of intermittent healing and this has returned on numerous occasions. She relates continued ulcer pain and drainage. She changes the dressing with Santyl. She is less than 1 week supply remaining and has some calcium alginate at home. She had her arterial and venous studies performed previously and these were reviewed at prior visits. Her pain is mild to moderate. She was seen by Dr. Morel, vascular surgeon who recommended EDUARDO studies and additional left leg duplex prior to proceeding with additional intervention with angiogram versus other procedure. She did have advanced imaging performed and now intervention is not recommended based off of the new scan results. She is advised to continue with her comprehensive wound healing p alexandra. Compression was also recommended. She has been able to improve her compression and wearing Candelario wrap as advised. She relates her recent area of newer skin break (wound) next to the original ulcer site has stopped draining and she asked if this is healed today. She denies odor or redness or purulent drainage. Progress of Wound: Improving. Medial ulcer has healed - Physical Exam Vital Signs Temp Pulse Resp BP 98.9 F 115 H 20 H 137/71 H 02/07/20 16:18 02/07/20 16:18 02/07/20 16:18 02/07/20 16:18 General: Alert, Oriented x3, Cooperative, No apparent distress Extremities: No cyanosis, Capillary Refill Less than 3 Seconds, No Calf Tenderness, Diminished Peripheral Pulses, Edema Skin: Ulcer/ Wound - No purulence, erythema, streaking, odor, infection. There is improvement in granulation tissue and reduction of fibrous tissue. There is no longer any eschar or necrotic tissue. There is no exposed tendon. The adjacent skin is hairless and atrophic with residual hyperpigmentation. The medial ulcer site is now fully epithelialized and is healed. Wound Measurements and Assessment WC - Nurse 1 - General Ulcer Measurement Start: 02/07/20 16:18 Freq: Status: Active Protocol: Activity Type Activity Date Activity User E-Sign Co-Sign Detail Recorded Client Recorded Date Recorded By Document 02/07/20 16:18 [id number] 02/07/20 16:19 [email or web address] 02/07/20 16:18 Wound Center Nurse 1 [Ulcer Assessment] #1 LLE -Combined with other wound No -Current Size (cm) - Length 7.5 -Current Size (cm) - Width 4 -Current Size (cm) - Depth 0.2 -Total Square Cm 30.0 -Photo Taken Yes -Epithelialization None Present -Tunneling No -Undermining/Tunneling No -Circular Undermining No -Exudate Amt Large -Exudate Type Serosanguineous -Wound Margin Flat & Intact -Granulation Amt None Present (0 %) -Slough/Fibrin Yes -Necrosis Amt Large (67-100%) -Necrotic Tissue Type Adherent Slough -Structure Exposed N/A -Texture (Susana-wound Skin Appearance) Assessed, Localized Edema ,Scarring -Moisture (Susana-wound Skin Appearance Assessed,Dry/ ) Scaly -Color (Susana-wound Skin Appearance) Assessed -Temperature (Susana-wound Skin No Abnormality Appearance) (Pt Warm) -Tenderness on Palpation (Susana-wound Yes Skin Appearance) -Ulcer Cleansing Wound Cleanser -Foul Odor after Cleansing No -Anesthetic Used 4% Lidocaine Solution [Edema Assessment] -Lower Limb Edema Present Yes -Left Calf (cm) 32.2 -Left Ankle (cm) 20.1 WC - Nurse 2 - General Ulcer CM Notes Start: 02/07/20 16:18 Freq: Status: Active Protocol: Activity Type Activity Date Activity User E-Sign Co-Sign Detail Recorded Client Recorded Date Recorded By Document 02/07/20 16:25 [id number] 02/07/20 16:31 02/07/20 16:25 Wound Center Nurse 2 [Procedure/Treatment] #1 LLE -Time 16:25 -Correct Patient Yes -Correct Side, Site, Position Yes -Correct Procedure Yes -Procedure Performed Yes -Type of Procedure Debridement -Clinical Debridement Subcutaneous -Post Debridement Size (cm) - Length 7.5 -Post Debridement Size (cm) - Width 4.1 -Post Debridement Size (cm) - Depth 0.2 -Total Square Cm 30.75 -Wound/Ulcer Outcome Not Healed -Ulcer Cleansing Rinsed/ Irrigated with Saline -Foul Odor after Cleansing No -Bioengineered Tissue No -Bleeding Controlled with Pressure -Offloading No -Treatment Response Procedure Tolerated Well [See Physician Procedure note for Specifics] Pain Scale: 0-10 Numeric [Pain] -Is Patient Pain Free? Yes Musculoskeletal: No Tenderness to Palpation of Joints or Extremities, Muscle Wasting, Tenderness - With ulcer manipulation, - - Weakness consistent with post polio syndrome Neurological: Sensory exam intact to light touch and pain Psych/Mental Status: Normal Affect, Appropriate Debridement Note Post-Debridement Measurements/Treatment WC - Nurse 2 - General Ulcer CM Notes Start: 02/07/20 16:18 Freq: Status: Active Protocol: Activity Type Activity Date Activity User E-Sign Co-Sign Detail Recorded Client Recorded Date Recorded By Document 02/07/20 16:25 [email or web address] [id number] 02/07/20 16:31 02/07/20 16:25 Wound Center Nurse 2 #1 LLE -Time 16:25 -Correct Patient Yes -Correct Side, Site, Position Yes -Correct Procedure Yes -Procedure Performed Yes -Type of Procedure Debridement -Clinical Debridement Subcutaneous -Post Debridement Size (cm) - Length 7.5 -Post Debridement Size (cm) - Width 4.1 -Post Debridement Size (cm) - Depth 0.2 -Total Square Cm 30.75 -Wound/Ulcer Outcome Not Healed -Ulcer Cleansing Rinsed/ Irrigated with Saline -Foul Odor after Cleansing No -Bioengineered Tissue No -Bleeding Controlled with Pressure -Offloading No -Treatment Response Procedure Tolerated Well Pain Scale: 0-10 Numeric Is Patient Pain Free? Yes Wound debrided: anterior leg Laterality: Left Type of Debridement: Excisional debridement Anesthesia Used: 5% Lidocaine Gel Depth: in the subcutaneous layer Percentage of wound debrided: 100 Instrument Used: #15 blade Tissue Removed: fibrous, devitalized subcutaneous, biofilm, slough Severity: Fat Layer Exposed Amount of bleeding with debridement: Mild Bleeding Controlled with: Pressure Patient tolerated procedure well Assessment/Plan Active Problems Ulcer of left lower extremity with fat layer exposed (Chronic) Delayed wound healing (Chronic) Venous insufficiency (Chronic) left Greater saphenous vein Other specified peripheral vascular diseases (Chronic) bilateral lower extremity Left leg pain (Chronic) Leg edema, left (Chronic) Assessment: Left leg ulcer with fat layer exposed, lack of local infection signs. Anterior medial leg, left -healed. Bacterial contamination has resolved. Leg edema. Venous insufficiency. Peripheral vascular disease with intervention pending. Delayed healing. Malnutrition suspected Plan: I reviewed and discussed her case today. Debridement was performed today as noted in the clinical panel. I recommended changing the dressing daily with santyl until she runs out; this has been going well. She can then transition to calcium alginate that she already has at home. She was informed there are no signs of infection and the medial ulcer site has healed. Is okay to moisturize adjacent skin with lotion such as Aquaphor. She was advised to wash the leg daily with antimicrobial soap. I recommend application of advanced wound healing product, epi-fix, due to her high risk status of limb loss and her delayed healing. The indication, benefits, planned application, and anticipated healing time and management were discussed in detail. She understands and elects to proceed after prior authorization is completed. This is medically necessary for limb salvage and it is noted she has been demonstrating delays in healing with conservative comprehensive wound healing plan so far. I recommend she proceed with work-up for both arterial and venous disease. Venous reflux evaluation test was ordered. She was advised to avoid idle sitting and standing and to elevate the limb to control edema. If she has continued pain particularly with leg elevation, I recommend she intermittently dangles the leg as well. I also recommend she proceeds with noninvasive arterial study. This was performed and she will proceed with the recommended tests by vascular surgery prior to additional intervention. I reviewed Dr. Morel's plan and documentation. She additionally had an updated test performed and intervention is not recommended at this time from an arterial standpoint. She will follow-up in 6 months to see if it is warranted at that time or needed. To d/c tubigrip due to inability to tolerate. I recommend at least continuing with the use of an Candelario wrap and this was applied again today. It appears she does have some mild form of venous insufficiency after reviewing her venous Doppler exam. She does also have significant bilateral lower extremity monophasic waveforms with ABIs of around 0.5 bilaterally. I also recommend updated labs including CBC, CMP, and prealbumin to assess her current medical status. Leukocytosis was noted and this will be monitored pending clinical progression. Her prealbumin was 19.8 and proper nutrition and supplementation was reviewed. An order was provided previously and she was advised to obtain. To proceed with a proper control diet and nutrition supplementation to optimize healing. I answered all of her questions and explained the etiology of ulcer causes and the comprehensive wound healing plan. Her pain was additionally addressed by previously providing a prescription for topical 4% lidocaine cream for application susana-ulcer site and not directly in the ulcer site after dressing changes for this is when her pain is worse. I recommend she returns on a weekly to bi weekly basis. I answered her questions. Due to coronavirus pandemic she elects to proceed with a telehealth visit next week. She will be contacted to schedule this and she will return to the wound healing center in 2 weeks for potential application of advanced wound healing product, serial debridement, and in person reevaluation. . 2020 quality measures reviewed as the following: Reviewed today-pain level was confirmed in follow-up plan was documented, medication and allergy reconciliation was performed. Reviewed 12-27-2019: She denies falling this past year. Reviewed 11/15/2019-pneumonia vaccination was confirmed, influenza immunization was confirmed for this current season in July 2019, advanced care plan was confirmed with living will, she is a current tobacco non user, her blood pressure is elevated over 120/80 and I recommend she follows up with her primary care physician for medical management of this. Diet and exercise benefits were also discussed for educational purposes to optimize her wound healing and medical management.
[2020-02-21 16:16] VITALS: BP 142/69; PULSE 96; RESP 18; TEMP 36.8; BMI 30.6
--- NOTE | 2020-02-21 16:53 | PCM.WC.PN ---
(1) Ulcer of left lower extremity with fat layer exposed Status: Chronic Current Visit: Yes Code(s): L97.922 - Non-pressure chronic ulcer of unspecified part of left lower leg with fat layer exposed (2) Delayed wound healing Status: Chronic Current Visit: Yes Code(s): T14.8XXD - Other injury of unspecified body region, subsequent encounter (3) Venous insufficiency Status: Chronic Current Visit: Yes Code(s): I87.2 - Venous insufficiency (chronic) (peripheral) Comment: left Greater saphenous vein (4) Other specified peripheral vascular diseases Status: Chronic Current Visit: Yes Code(s): I73.89 - Other specified peripheral vascular diseases Comment: bilateral lower extremity (5) Left leg pain Status: Chronic Current Visit: Yes Code(s): M79.605 - Pain in left leg (6) Leg edema, left Status: Chronic Current Visit: Yes Code(s): R60.0 - Localized edema Type of Wound Date of Service: 02/21/20 Chief Complaint: Left leg ulcer History of Wound: This 69-year-old female with significant past medical history of polio with several medical sequela sustained a left leg ulcer that dates back to 2016. She has had periods of intermittent healing and this has returned on numerous occasions. She relates continued ulcer pain and drainage. She changes the dressing with Santyl. She had her arterial and venous studies performed previously and these were reviewed at prior visits. Her pain is mild to moderate. She was seen by Dr. Morel, vascular surgeon who recommended EDUARDO studies and additional left leg duplex prior to proceeding with additional intervention with angiogram versus other procedure. She did have advanced imaging performed and now intervention is not recommended based off of the new scan results. She is advised to continue with her comprehensive wound healing plan. Compression was also recommended. She has been able to improve her compression and wearing Candelario wrap as advised. She denies odor or redness or purulent drainage. She relates she is ready to proceed with advanced wound healing product, epi-fix, now that the insurance has approved this. Progress of Wound: Improving - Physical Exam Vital Signs Temp Pulse Resp BP 98.2 F 96 18 142/69 H 02/21/20 16:16 02/21/20 16:16 02/21/20 16:16 02/21/20 16:16 General: Alert, Oriented x3, Cooperative, No apparent distress HEENT: Atraumatic Extremities: No cyanosis, Capillary Refill Less than 3 Seconds, No Calf Tenderness, Diminished Peripheral Pulses, Edema Skin: Ulcer/ Wound - No purulence, erythema, streaking, odor, infection. Improved granulation tissue is noted. There is decreased fibrous tissue and resolution of eschar tissue. The adjacent skin is hairless, atrophic, and hyperpigmented. The medial adjacent skin does have some mild serous weeping and there is no actual some cutaneous tissue exposed. This tissue is mainly epithelialized with scant some hemorrhagic tissue. Wound Measurements and Assessment WC - Nurse 1 - General Ulcer Measurement Start: 02/07/20 16:18 Freq: Status: Active Protocol: Activity Type Activity Date Activity User E-Sign Co-Sign Detail Recorded Client Recorded Date Recorded By Document 02/21/20 16:16 RB [id number] 02/21/20 16:20 RB 02/21/20 16:16 Wound Center Nurse 1 [Ulcer Assessment] #1 LLE -Combined with other wound No -Current Size (cm) - Length 7.5 -Current Size (cm) - Width 4 -Current Size (cm) - Depth 0.4 -Total Square Cm 30.0 -Tunneling No -Undermining/Tunneling No -Circular Undermining No -Exudate Amt Medium -Exudate Type Serosanguineous -Wound Margin Distinct, Outline Attached -Granulation Amt Medium (34-66%) -Granulation Quality [place] -Slough/Fibrin Yes -Necrosis Amt Medium (34-66%) -Necrotic Tissue Type Adherent Slough -Structure Exposed N/A -Texture (Susana-wound Skin Appearance) Assessed, Excoriation, Scarring -Moisture (Susana-wound Skin Appearance Assessed ) -Color (Susana-wound Skin Appearance) Assessed, Erythema -Temperature (Susana-wound Skin No Abnormality Appearance) (Pt Warm) -Tenderness on Palpation (Susana-wound No Skin Appearance) -Ulcer Cleansing Wound Cleanser -Foul Odor after Cleansing No -Anesthetic Used 4% Lidocaine Solution [Edema Assessment] -Lower Limb Edema Present Yes -Left Calf (cm) 32.8 -Left Ankle (cm) 21.2 WC - Nurse 2 - General Ulcer CM Notes Start: 02/07/20 16:18 Freq: Status: Active Protocol: Activity Type Activity Date Activity User E-Sign Co-Sign Detail Recorded Client Recorded Date Recorded By Document 02/21/20 16:38 [id number] 02/21/20 16:49 02/21/20 16:38 Wound Center Nurse 2 [Procedure/Treatment] #1 LLE -Time 16:39 -Correct Patient Yes -Correct Side, Site, Position Yes -Correct Procedure Yes -Procedure Performed Yes -Type of Procedure Debridement -Clinical Debridement Subcutaneous -Post Debridement Size (cm) - Length 7.5 -Post Debridement Size (cm) - Width 4.1 -Post Debridement Size (cm) - Depth 0.4 -Total Square Cm 30.75 -Wound/Ulcer Outcome Not Healed -Ulcer Cleansing Rinsed/ Irrigated with Saline -Foul Odor after Cleansing No -Bioengineered Tissue Yes -Type of bioengineered Tissue EPIFIX -Expiration Date 11/08/24 -Product Lot Number [id number] -Percent Used 100 -Saline Lot Number [id number] -Bleeding Controlled with Pressure -Offloading No -Treatment Response Procedure Tolerated Well [See Physician Procedure note for Specifics] Pain Scale: 0-10 Numeric [Pain] -Is Patient Pain Free? Yes Musculoskeletal: No Tenderness to Palpation of Joints or Extremities, Muscle Wasting, - - Weakness consistent with polio Neurological: Sensory exam intact to light touch and pain, - Psych/Mental Status: Normal Affect, Appropriate Debridement Note Post-Debridement Measurements/Treatment WC - Nurse 2 - General Ulcer CM Notes Start: 02/07/20 16:18 Freq: Status: Active Protocol: Activity Type Activity Date Activity User E-Sign Co-Sign Detail Recorded Client Recorded Date Recorded By Document 02/07/20 16:25 [id number] 02/07/20 16:31 Document 02/21/20 16:38 [id number] 02/21/20 16:49 02/07/20 02/21/20 16:25 16:38 Wound Center Nurse 2 #1 LLE -Time 16:25 16:39 -Correct Patient Yes Yes -Correct Side, Site, Position Yes Yes -Correct Procedure Yes Yes -Procedure Performed Yes Yes -Type of Procedure Debridement Debridement -Clinical Debridement Subcutaneous Subcutaneous -Post Debridement Size (cm) - Length 7.5 7.5 -Post Debridement Size (cm) - Width 4.1 4.1 -Post Debridement Size (cm) - Depth 0.2 0.4 -Total Square Cm 30.75 30.75 -Wound/Ulcer Outcome Not Healed Not Healed -Ulcer Cleansing Rinsed/ Rinsed/ Irrigated with Irrigated with Saline Saline -Foul Odor after Cleansing No No -Bioengineered Tissue No Yes -Type of bioengineered Tissue EPIFIX -Expiration Date 11/08/24 -Product Lot Number [id number] -Percent Used 100 -Saline Lot Number [id number] -Bleeding Controlled with Pressure Pressure -Offloading No No -Treatment Response Procedure Procedure Tolerated Well Tolerated Well Pain Scale: 0-10 Numeric Is Patient Pain Free? Yes Yes Wound debrided: anterior leg Laterality: Left Type of Debridement: Excisional debridement Anesthesia Used: 5% Lidocaine Gel Depth: in the subcutaneous layer Percentage of wound debrided: 100 Instrument Used: #15 blade Tissue Removed: fibrous, devitalized subcutaneous, biofilm, slough Severity: Fat Layer Exposed Amount of bleeding with debridement: Mild Bleeding Controlled with: Pressure Patient tolerated procedure well Assessment/Plan Active Problems Ulcer of left lower extremity with fat layer exposed (Chronic) Delayed wound healing (Chronic) Venous insufficiency (Chronic) left Greater saphenous vein Other specified peripheral vascular diseases (Chronic) bilateral lower extremity Left leg pain (Chronic) Leg edema, left (Chronic) Assessment: Left leg ulcer with fat layer exposed, lack of local infection signs. Anterior medial leg, left -healed. Bacterial contamination has resolved. Leg edema. Venous insufficiency. Peripheral vascular disease with intervention pending. Delayed healing. Malnutrition suspected Plan: I reviewed and discussed her case today. Debridement was performed today as noted in the clinical panel. She was informed there are no signs of infection and the medial ulcer site has healed. Is okay to moisturize adjacent skin with lotion such as Aquaphor. She was advised to wash the adjacent wound site leg daily with antimicrobial soap. I recommend application of advanced wound healing product, epi-fix, due to her high risk status of limb loss and her delayed healing. The indication, benefits, planned application, and anticipated healing time and management were discussed in detail. She understands and elects to proceed after prior authorization is completed. This is medically necessary for limb salvage and it is noted she has been demonstrating delays in healing with conservative comprehensive wound healing plan so far. She is ready to proceed today and verbal consent was obtained. This was applied according standard protocol this was firmly secured with a wound veil and Steri-Strips. Adaptic was also applied to the adjacent weeping site medially. She is advised to keep this clean, dry, and intact until follow-up next week. It is okay for change the secondary dressing every couple of days to make sure this is actually macerated. She will continue with caramax which is worked well for her in the recent past. I recommend she proceed with work-up for both arterial and venous disease. Venous reflux evaluation test was ordered. She was advised to avoid idle sitting and standing and to elevate the limb to control edema. If she has continued pain particularly with leg elevation, I recommend she intermittently dangles the leg as well. I also recommend she proceeds with noninvasive arterial study. This was performed and she will proceed with the recommended tests by vascular surgery prior to additional intervention. I reviewed Dr. Morel's plan and documentation. She additionally had an updated test performed and intervention is not recommended at this time from an arterial standpoint. She will follow-up in 6 months to see if it is warranted at that time or needed. To d/c tubigrip due to inability to tolerate. I recommend at least continuing with the use of an Cnadelario wrap and this was applied again today. It appears she does have some mild form of venous insufficiency after reviewing her venous Doppler exam. She does also have significant bilateral lower extremity monophasic waveforms with ABIs of around 0.5 bilaterally. I also recommend updated labs including CBC, CMP, and prealbumin to assess her current medical status. Leukocytosis was noted and this will be monitored pending clinical progression. Her prealbumin was 19.8 and proper nutrition and supplementation was reviewed. An order was provided previously and she was advised to obtain. To proceed with a proper control diet and nutrition supplementation to optimize healing. I answered all of her questions and explained the etiology of ulcer causes and the comprehensive wound healing plan. To return to clinic in 1 week. She would benefit from serial debridement and application of advanced wound healing product to prevent limb loss. This is medically necessary. . 2020 quality measures reviewed as the following: Reviewed today-pain level was confirmed in follow-up plan was documented, medication and allergy reconciliation was performed. Reviewed 12-27-2019: She denies falling this past year. Reviewed 11/15/2019-pneumonia vaccination was confirmed, influenza immunization was confirmed for this current season in July 2019, advanced care plan was confirmed with living will, she is a current tobacco non user, her blood pressure is elevated over 120/80 and I recommend she follows up with her primary care physician for medical management of this. Diet and exercise benefits were also discussed for educational purposes to optimize her wound healing and medical management.
[2020-02-28 10:41] VITALS: BP 129/65; PULSE 84; RESP 18; TEMP 36.4; BMI 30.6
--- NOTE | 2020-02-28 11:33 | PCM.WC.PN ---
(1) Ulcer of left lower extremity with fat layer exposed Status: Chronic Current Visit: Yes Code(s): L97.922 - Non-pressure chronic ulcer of unspecified part of left lower leg with fat layer exposed (2) Delayed wound healing Status: Chronic Current Visit: Yes Code(s): T14.8XXD - Other injury of unspecified body region, subsequent encounter (3) Venous insufficiency Status: Chronic Current Visit: Yes Code(s): I87.2 - Venous insufficiency (chronic) (peripheral) Comment: left Greater saphenous vein (4) Other specified peripheral vascular diseases Status: Chronic Current Visit: Yes Code(s): I73.89 - Other specified peripheral vascular diseases Comment: bilateral lower extremity (5) Left leg pain Status: Chronic Current Visit: Yes Code(s): M79.605 - Pain in left leg (6) Leg edema, left Status: Chronic Current Visit: Yes Code(s): R60.0 - Localized edema Type of Wound Date of Service: 02/28/20 Chief Complaint: Left leg ulcer History of Wound: This 69-year-old female with significant past medical history of polio with several medical sequela sustained a left leg ulcer that dates back to 2016. She has had periods of intermittent healing and this has returned on numerous occasions. She relates continued ulcer pain and drainage. She changes the dressing with Santyl. She had her arterial and venous studies performed previously and these were reviewed at prior visits. Her pain is mild to moderate. She was seen by Dr. Morel, vascular surgeon who recommended EDUARDO studies and additional left leg duplex prior to proceeding with additional intervention with angiogram versus other procedure. She did have advanced imaging performed and now intervention is not recommended based off of the new scan results. She is advised to continue with her comprehensive wound healing plan. Compression was also recommended. She has been able to improve her compression and wearing Candelario wrap as advised. She denies odor or redness or purulent drainage. She had an epi-fix applied to the main ulcer site last week and has continued weeping to the medial aspect. Progress of Wound: Improving - Physical Exam Vital Signs Temp Pulse Resp BP 97.6 F L 84 18 129/65 H 02/28/20 10:41 02/28/20 10:41 02/28/20 10:41 02/28/20 10:41 General: Alert, Oriented x3, Cooperative, No apparent distress HEENT: Atraumatic Extremities: No cyanosis, Capillary Refill Less than 3 Seconds, No Calf Tenderness - Negative Kishor and Hughes left, Diminished Peripheral Pulses, Edema Skin: Ulcer/ Wound - No purulence, erythema, streaking, odor, cutaneous infection. There is serosanguineous moderate drainage noted on the dressings. Weeping noted from the medial aspect has increased and now there is some skin discontinuity with additional sub-hemorrhagic tissue. The anterior slightly lateral leg ulcer has granular fibrous tissue noted. There is no exposed tendon or bone. Wound Measurements and Assessment WC - Nurse 1 - General Ulcer Measurement Start: 02/07/20 16:18 Freq: Status: Active Protocol: Activity Type Activity Date Activity User E-Sign Co-Sign Detail Recorded Client Recorded Date Recorded By Document 02/28/20 10:41 [id number] 02/28/20 10:59 02/28/20 10:41 Wound Center Nurse 1 [Ulcer Assessment] #2 LLE medial -Current Size (cm) - Length 11.7 -Current Size (cm) - Width 8.8 -Current Size (cm) - Depth 0.1 -Total Square Cm 102.96 -Date of Last Picture (Recall this 02/28/20 field) -Photo Taken Yes -Epithelialization None Present -Tunneling No -Undermining/Tunneling No -Circular Undermining No -Exudate Amt Medium -Exudate Type Serosanguineous -Wound Margin Distinct, Outline Attached -Granulation Amt Medium (34-66%) -Granulation Quality Red -Slough/Fibrin Yes -Necrosis Amt None Present (0 %) -Necrotic Tissue Type Adherent Slough -Structure Exposed None/Limited to Skin Breakdown -Texture (Susana-wound Skin Appearance) Excoriation, Friable -Moisture (Susana-wound Skin Appearance Weeping ) -Color (Susana-wound Skin Appearance) No Abnormality, Assessed -Temperature (Susana-wound Skin No Abnormality Appearance) (Pt Warm) -Tenderness on Palpation (Susana-wound Yes Skin Appearance) -Ulcer Cleansing Rinsed/ Irrigated with Saline -Foul Odor after Cleansing No #1 LLE -Combined with other wound No -Current Size (cm) - Length 7.3 -Current Size (cm) - Width 4.2 -Current Size (cm) - Depth 0.2 -Total Square Cm 30.66 -Photo Taken No -Epithelialization None Present -Tunneling No -Undermining/Tunneling No -Circular Undermining No -Exudate Amt Small -Exudate Type Serosanguineous -Wound Margin Distinct, Outline Attached -Granulation Amt Large (67-100%) -Granulation Quality Strawberry,Red -Slough/Fibrin Yes -Necrosis Amt None Present (0 %) -Necrotic Tissue Type Adherent Slough -Structure Exposed N/A,None/ Limited to Skin Breakdown -Texture (Susana-wound Skin Appearance) Excoriation, Friable -Moisture (Susana-wound Skin Appearance Assessed, ) Weeping -Color (Susana-wound Skin Appearance) Erythema -Temperature (Susana-wound Skin No Abnormality Appearance) (Pt Warm) -Tenderness on Palpation (Susana-wound Yes Skin Appearance) -Ulcer Cleansing Rinsed/ Irrigated with Saline -Foul Odor after Cleansing No -Anesthetic Used 4% Lidocaine Solution [Edema Assessment] -Lower Limb Edema Present NA WC - Nurse 2 - General Ulcer CM Notes Start: 02/07/20 16:18 Freq: Status: Active Protocol: Activity Type Activity Date Activity User E-Sign Co-Sign Detail Recorded Client Recorded Date Recorded By Document 02/28/20 11:19 [id number] 02/28/20 11:28 02/28/20 11:19 Wound Center Nurse 2 [Procedure/Treatment] #2 LLE medial -Correct Patient No -Correct Side, Site, Position No -Correct Procedure No -Procedure Performed No -Bioengineered Tissue Yes -Type of bioengineered Tissue EPIFIX -Expiration Date 11/08/24 -Product Lot Number [id number] -Percent Used 100 -Saline Lot Number [id number] -Bleeding Controlled with Pressure -Offloading No -Treatment Response Procedure Tolerated Well #1 LLE -Time 11:25 -Correct Patient Yes -Correct Side, Site, Position Yes -Correct Procedure Yes -Procedure Performed Yes -Type of Procedure Debridement -Clinical Debridement Subcutaneous -Post Debridement Size (cm) - Length 7.4 -Post Debridement Size (cm) - Width 4.2 -Post Debridement Size (cm) - Depth 0.2 -Total Square Cm 31.08 -Wound/Ulcer Outcome Not Healed -Ulcer Cleansing Rinsed/ Irrigated with Saline -Foul Odor after Cleansing No -Bioengineered Tissue Yes -Type of bioengineered Tissue EPIFIX -Expiration Date 11/08/24 -Product Lot Number [id number] -Percent Used 100 -Saline Lot Number [id number] -Bleeding Controlled with Pressure -Offloading No -Treatment Response Procedure Tolerated Well [See Physician Procedure note for Specifics] Pain Scale: 0-10 Numeric [Pain] -Is Patient Pain Free? Yes Musculoskeletal: No Tenderness to Palpation of Joints or Extremities, Muscle Wasting, - - No bogginess or fluctuance on palpation Neurological: Sensory exam intact to light touch and pain Psych/Mental Status: Normal Affect, Appropriate Debridement Note Post-Debridement Measurements/Treatment WC - Nurse 2 - General Ulcer CM Notes Start: 02/07/20 16:18 Freq: Status: Active Protocol: Activity Type Activity Date Activity User E-Sign Co-Sign Detail Recorded Client Recorded Date Recorded By Document 02/07/20 16:25 [email or web address] 02/07/20 16:31 Document 02/21/20 16:38 [id number] 02/21/20 16:49 Document 02/28/20 11:19 [id number] 02/28/20 11:28 02/07/20 02/21/20 02/28/20 16:25 16:38 11:19 Wound Center Nurse 2 #2 LLE medial -Correct Patient No -Correct Side, Site, Position No -Correct Procedure No -Procedure Performed No -Bioengineered Tissue Yes -Type of bioengineered Tissue EPIFIX -Expiration Date 11/08/24 -Product Lot Number [id number] -Percent Used 100 -Saline Lot Number [id number] -Bleeding Controlled with Pressure -Offloading No -Treatment Response Procedure Tolerated Well #1 LLE -Time 16:25 16:39 11:25 -Correct Patient Yes Yes Yes -Correct Side, Site, Position Yes Yes Yes -Correct Procedure Yes Yes Yes -Procedure Performed Yes Yes Yes -Type of Procedure Debridement Debridement Debridement -Clinical Debridement Subcutaneous Subcutaneous Subcutaneous -Post Debridement Size (cm) - Length 7.5 7.5 7.4 -Post Debridement Size (cm) - Width 4.1 4.1 4.2 -Post Debridement Size (cm) - Depth 0.2 0.4 0.2 -Total Square Cm 30.75 30.75 31.08 -Wound/Ulcer Outcome Not Healed Not Healed Not Healed -Ulcer Cleansing Rinsed/ Rinsed/ Rinsed/ Irrigated with Irrigated with Irrigated with Saline Saline Saline -Foul Odor after Cleansing No No No -Bioengineered Tissue No Yes Yes -Type of bioengineered Tissue EPIFIX EPIFIX -Expiration Date 11/08/24 11/08/24 -Product Lot Number [id number] -Percent Used 100 100 -Saline Lot Number [id number] -Bleeding Controlled with Pressure Pressure Pressure -Offloading No No No -Treatment Response Procedure Procedure Procedure Tolerated Well Tolerated Well Tolerated Well Pain Scale: 0-10 Numeric Is Patient Pain Free? Yes Yes Yes Wound debrided: anterior leg, medial leg Laterality: Left Type of Debridement: Excisional debridement Anesthesia Used: 5% Lidocaine Gel Depth: in the subcutaneous layer Percentage of wound debrided: 100 Instrument Used: #15 blade Tissue Removed: fibrous, devitalized subcutaneous, biofilm, slough Severity: Fat Layer Exposed Amount of bleeding with debridement: Mild Bleeding Controlled with: Pressure Patient tolerated procedure well Assessment/Plan Active Problems Ulcer of left lower extremity with fat layer exposed (Chronic) Delayed wound healing (Chronic) Venous insufficiency (Chronic) left Greater saphenous vein Other specified peripheral vascular diseases (Chronic) bilateral lower extremity Left leg pain (Chronic) Leg edema, left (Chronic) Assessment: Left leg ulcer with fat layer exposed, lack of local infection signs. Anterior medial leg, left - returned. Leg edema. Venous insufficiency. Peripheral vascular disease with intervention pending. Delayed healing. Malnutrition suspected Plan: I reviewed and discussed her case today. Debridement was performed today as noted in the clinical panel. She was informed there are no signs of infection and the medial ulcer site has healed. Is okay to moisturize adjacent skin with lotion such as Aquaphor. She was advised to wash the adjacent wound site leg daily with antimicrobial soap. I recommend application of advanced wound healing product, epi-fix, due to her high risk status of limb loss and her delayed healing. The indication, benefits, planned application, and anticipated healing time and management were discussed in detail. She understands and elects to proceed after prior authorization is completed. This is medically necessary for limb salvage and it is noted she has been demonstrating delays in healing with conservative comprehensive wound healing plan so far. She is ready to proceed today and verbal consent was obtained. This was applied according standard protocol this was firmly secured with a wound veil and Steri-Strips. She is advised to keep this clean, dry, and intact until follow-up next week. It is okay for change the secondary dressing every couple of days to make sure this is actually macerated. She will continue with caramax which is worked well for her in the recent past. I recommend she proceed with work-up for both arterial and venous disease. Venous reflux evaluation test was ordered. She was advised to avoid idle sitting and standing and to elevate the limb to control edema. If she has continued pain particularly with leg elevation, I recommend she intermittently dangles the leg as well. I also recommend she proceeds with noninvasive arterial study. This was performed and she will proceed with the recommended tests by vascular surgery prior to additional intervention. I reviewed Dr. Morel's plan and documentation. She additionally had an updated test performed and intervention is not recommended at this time from an arterial standpoint. She will follow-up in 6 months to see if it is warranted at that time or needed. To d/c tubigrip due to inability to tolerate. I recommend at least continuing with the use of an Candelario wrap and this was applied again today. It appears she does have some mild form of venous insufficiency after reviewing her venous Doppler exam. She does also have significant bilateral lower extremity monophasic waveforms with ABIs of around 0.5 bilaterally. I also recommend updated labs including CBC, CMP, and prealbumin to assess her current medical status. Leukocytosis was noted and this will be monitored pending clinical progression. Her prealbumin was 19.8 and proper nutrition and supplementation was reviewed. An order was provided previously and she was advised to obtain. To proceed with a proper control diet and nutrition supplementation to optimize healing. I answered all of her questions and explained the etiology of ulcer causes and the comprehensive wound healing plan. To return to clinic in 1 week. She would benefit from serial debridement and application of advanced wound healing product to prevent limb loss. This is medically necessary. . 2020 quality measures reviewed as the following: Reviewed today-pain level was confirmed in follow-up plan was documented, medication and allergy reconciliation was performed. Reviewed 12-27-2019: She denies falling this past year. Reviewed 11/15/2019-pneumonia vaccination was confirmed, influenza immunization was confirmed for this current season in July 2019, advanced care plan was confirmed with living will, she is a current tobacco non user, her blood pressure is elevated over 120/80 and I recommend she follows up with her primary care physician for medical management of this. Diet and exercise benefits were also discussed for educational purposes to optimize her wound healing and medical management.
[2020-03-06 14:54] VITALS: BP 137/63; PULSE 106; RESP 20; TEMP 37.3; BMI 30.6
--- NOTE | 2020-03-06 22:44 | PN.PCM_ITS ---
(1) Ulcer of left lower extremity with fat layer exposed Status: Chronic Code(s): L97.922 - Non-pressure chronic ulcer of unspecified part of left lower leg with fat layer exposed (2) Delayed wound healing Status: Chronic Code(s): T14.8XXD - Other injury of unspecified body region, subsequent encounter (3) Venous insufficiency Status: Chronic Code(s): I87.2 - Venous insufficiency (chronic) (peripheral) Comment: left Greater saphenous vein (4) Other specified peripheral vascular diseases Status: Chronic Code(s): I73.89 - Other specified peripheral vascular diseases Comment: bilateral lower extremity (5) Left leg pain Status: Chronic Code(s): M79.605 - Pain in left leg (6) Leg edema, left Status: Chronic Code(s): R60.0 - Localized edema Type of Wound Date of Service: 03/06/20 Chief Complaint: Left leg ulcer History of Wound: This 69-year-old female with significant past medical history of polio with several medical sequela sustained a left leg ulcer that dates back to 2015. She has had periods of intermittent healing and this has returned on numerous occasions. She relates continued ulcer pain and drainage. She changes the dressing with Santyl. She had her arterial and venous studies performed previously and these were reviewed at prior visits. Her pain is mild to moderate. She was seen by Dr. Morel, vascular surgeon who recommended EDUARDO studies and additional left leg duplex prior to proceeding with additional intervention with angiogram versus other procedure. She did have advanced imaging performed and now intervention is not recommended based off of the new scan results. She is advised to continue with her comprehensive wound healing plan. Compression was also recommended. She has been able to improve her compression and wearing Candelario wrap as advised. She denies odor or redness or puru lent drainage. She had an epi-fix applied to the main ulcer site last week and has continued weeping to the medial aspect. Progress of Wound: Improving - Physical Exam Vital Signs Temp Pulse Resp BP 99.1 F 106 H 20 H 137/63 H 03/06/20 14:54 03/06/20 14:54 03/06/20 14:54 03/06/20 14:54 General: Alert, Oriented x3, Cooperative, No apparent distress HEENT: Atraumatic Extremities: No cyanosis, Capillary Refill Less than 3 Seconds, No Calf Te nderness, Diminished Peripheral Pulses, Edema Skin: Ulcer/ Wound - No purulence, erythema, streaking, odor. The skin is atrophic and hairless. There is granular and fibrous base noted to the main anterior ulcer. The medial site has some hemorrhagic and subcutaneous tissue exposed in a clustered manner with continued weeping Wound Measurements and Assessment WC - Nurse 1 - General Ulcer Measurement Start: 02/07/20 16:18 Freq: Status: Active Protocol: Activity Type Activity Date Activity User E-Sign Co-Sign Detail Recorded Client Recorded Date Recorded By Document 03/06/20 14:54 RB [id number] 03/06/20 14:59 RB 03/06/20 14:54 Wound Center Nurse 1 [Ulcer Assessment] #2 LLE medial -Combined with other wound No -Current Size (cm) - Length 8 -Current Size (cm) - Width 5.5 -Current Size (cm) - Depth 0.1 -Total Square Cm 44.0 -Tunneling No -Undermining/Tunneling No -Circular Undermining No -Exudate Amt Medium -Exudate Type Serosanguineous -Wound Margin Flat & Intact -Granulation Amt Medium (34-66%) -Granulation Quality [place] Pos,Red -Necrosis Amt Medium (34-66%) -Necrotic Tissue Type Adherent Slough -Structure Exposed N/A -Texture (Susana-wound Skin Appearance) Assessed, Friable -Moisture (Susana-wound Skin Appearance Assessed ) -Color (Susana-wound Skin Appearance) Assessed, Erythema -Temperature (Susana-wound Skin No Abnormality Appearance) (Pt Warm) -Tenderness on Palpation (Susana-wound No Skin Appearance) -Ulcer Cleansing Wound Cleanser -Foul Odor after Cleansing No -Anesthetic Used 5% Lidocaine Gel #1 LLE -Current Size (cm) - Length 7.5 -Current Size (cm) - Width 4.5 -Current Size (cm) - Depth 0.2 -Total Square Cm 33.75 -Tunneling No -Undermining/Tunneling No -Circular Undermining No -Exudate Amt Medium -Exudate Type Serosanguineous -Wound Margin Thickened & Rolled Under -Granulation Amt Medium (34-66%) -Granulation Quality [place] Pos -Slough/Fibrin Yes -Necrosis Amt Medium (34-66%) -Necrotic Tissue Type Adherent Slough -Structure Exposed N/A -Texture (Susana-wound Skin Appearance) Assessed, Friable -Moisture (Susana-wound Skin Appearance Assessed ) -Color (Susana-wound Skin Appearance) Erythema -Temperature (Susana-wound Skin No Abnormality Appearance) (Pt Warm) -Tenderness on Palpation (Susana-wound No Skin Appearance) -Ulcer Cleansing Wound Cleanser -Foul Odor after Cleansing No -Anesthetic Used 5% Lidocaine Gel WC - Nurse 2 - General Ulcer CM Notes Start: 02/07/20 16:18 Freq: Status: Active Protocol: Activity Type Activity Date Activity User E-Sign Co-Sign Detail Recorded Client Recorded Date Recorded By Document 03/06/20 16:34 [email or web address] [id number] 03/06/20 16:36 FELISHA 03/06/20 16:34 Wound Center Nurse 2 [Procedure/Treatment] #2 LLE medial -Correct Patient No -Correct Side, Site, Position No -Correct Procedure No -Procedure Performed No -Wound/Ulcer Outcome Not Healed #1 LLE -Time 16:35 -Correct Patient Yes -Correct Side, Site, Position Yes -Correct Procedure Yes -Procedure Performed Yes -Type of Procedure Debridement -Clinical Debridement Subcutaneous -Post Debridement Size (cm) - Length 7.5 -Post Debridement Size (cm) - Width 4.6 -Post Debridement Size (cm) - Depth 0.3 -Total Square Cm 34.50 -Wound/Ulcer Outcome Not Healed -Ulcer Cleansing Rinsed/ Irrigated with Saline -Foul Odor after Cleansing No -Bioengineered Tissue Yes -Type of bioengineered Tissue EPIFIX -Expiration Date 11/08/24 -Product Lot Number [id number] -Percent Used 100 -Saline Lot Number [id number] -Bleeding Controlled with Pressure -Offloading No -Treatment Response Procedure Tolerated Well [See Physician Procedure note for Specifics] Pain Scale: 0-10 Numeric [Pain] -Is Patient Pain Free? Yes Musculoskeletal: No Tenderness to Palpation of Joints or Extremities, Muscle Wasting Neurological: Sensory exam intact to light touch and pain - Hypersensitivity Psych/Mental Status: Normal Affect, Appropriate Debridement Note Post-Debridement Measurements/Treatment WC - Nurse 2 - General Ulcer CM Notes Start: 02/07/20 16:18 Freq: Status: Active Protocol: Activity Type Activity Date Activity User E-Sign Co-Sign Detail Recorded Client Recorded Date Recorded By Document 02/07/20 16:25 [id number] 02/07/20 16:31 Document 02/21/20 16:38 [id number] 02/21/20 16:49 Document 02/28/20 11:19 [id number] 02/28/20 11:28 Document 03/06/20 16:34 [id number] 03/06/20 16:36 JF 02/07/20 02/21/20 02/28/20 16:25 16:38 11:19 Wound Center Nurse 2 #2 LLE medial -Correct Patient No -Correct Side, Site, Position No -Correct Procedure No -Procedure Performed No -Wound/Ulcer Outcome -Bioengineered Tissue Yes -Type of bioengineered Tissue EPIFIX -Expiration Date 11/08/24 -Product Lot Number [id number] -Percent Used 100 -Saline Lot Number [id number] -Bleeding Controlled with Pressure -Offloading No -Treatment Response Procedure Tolerated Well #1 LLE -Time 16:25 16:39 11:25 -Correct Patient Yes Yes Yes -Correct Side, Site, Position Yes Yes Yes -Correct Procedure Yes Yes Yes -Procedure Performed Yes Yes Yes -Type of Procedure Debridement Debridement Debridement -Clinical Debridement Subcutaneous Subcutaneous Subcutaneous -Post Debridement Size (cm) - Length 7.5 7.5 7.4 -Post Debridement Size (cm) - Width 4.1 4.1 4.2 -Post Debridement Size (cm) - Depth 0.2 0.4 0.2 -Total Square Cm 30.75 30.75 31.08 -Wound/Ulcer Outcome Not Healed Not Healed Not Healed -Ulcer Cleansing Rinsed/ Rinsed/ Rinsed/ Irrigated with Irrigated with Irrigated with Saline Saline Saline -Foul Odor after Cleansing No No No -Bioengineered Tissue No Yes Yes -Type of bioengineered Tissue EPIFIX EPIFIX -Expiration Date 11/08/24 11/08/24 -Product Lot Number [id number] -Percent Used 100 100 -Saline Lot Number [id number] -Bleeding Controlled with Pressure Pressure Pressure -Offloading No No No -Treatment Response Procedure Procedure Procedure Tolerated Well Tolerated Well Tolerated Well Pain Scale: 0-10 Numeric Is Patient Pain Free? Yes Yes Yes 03/06/20 16:34 Wound Center Nurse 2 #2 LLE medial -Correct Patient No -Correct Side, Site, Position No -Correct Procedure No -Procedure Performed No -Wound/Ulcer Outcome Not Healed -Bioengineered Tissue -Type of bioengineered Tissue -Expiration Date -Product Lot Number -Percent Used -Saline Lot Number -Bleeding Controlled with -Offloading -Treatment Response #1 LLE -Time 16:35 -Correct Patient Yes -Correct Side, Site, Position Yes -Correct Procedure Yes -Procedure Performed Yes -Type of Procedure Debridement -Clinical Debridement Subcutaneous -Post Debridement Size (cm) - Length 7.5 -Post Debridement Size (cm) - Width 4.6 -Post Debridement Size (cm) - Depth 0.3 -Total Square Cm 34.50 -Wound/Ulcer Outcome Not Healed -Ulcer Cleansing Rinsed/ Irrigated with Saline -Foul Odor after Cleansing No -Bioengineered Tissue Yes -Type of bioengineered Tissue EPIFIX -Expiration Date 11/08/24 -Product Lot Number [id number] -Percent Used 100 -Saline Lot Number [id number] -Bleeding Controlled with Pressure -Offloading No -Treatment Response Procedure Tolerated Well Pain Scale: 0-10 Numeric Is Patient Pain Free? Yes Wound debrided: anterior leg x 2 Laterality: Left Type of Debridement: Excisional debridement Anesthesia Used: 5% Lidocaine Gel Depth: in the subcutaneous layer Percentage of wound debrided: 100 Instrument Used: #15 blade Tissue Removed: fibrous, devitalized subcutaneous, biofilm, slough Severity: Fat Layer Exposed Amount of bleeding with debridement: Mild Bleeding Controlled with: Pressure Patient tolerated procedure well Assessment/Plan Assessment: Left leg ulcer with fat layer exposed, lack of local infection signs. Anterior medial leg, left - returned. Leg edema. Venous insufficiency. Peripheral vascular disease with intervention pending. Delayed healing. Malnutrition suspected Plan: I reviewed and discussed her case today. Debridement was performed today as noted in the clinical panel. She was informed there are no signs of infection and the medial ulcer site has healed. Is okay to moisturize adjacent skin with lotion such as Aquaphor. She was advised to wash the adjacent wound site leg daily with antimicrobial soap. I recommend application of advanced wound healing product, epi-fix, due to her high risk status of limb loss and her delayed healing. The indication, benefits, planned application, and anticipated healing time and management were discussed in detail. She understands and elects to proceed again today. This is medically necessary for limb salvage and it is noted she has been demonstrating delays in healing with conservative comprehensive wound healing plan so far. She is ready to proceed today and verbal consent was obtained. This was applied according standard protocol this was firmly secured with a wound veil and Steri-Strips. She is advised to keep this clean, dry, and intact until follow-up next week. It is okay for change the secondary dressing every couple of days to make sure this is actually macerated. She will continue with caramax which is worked well for her in the recent past. I recommend she proceed with work-up for both arterial and venous disease. Venous reflux evaluation test was ordered. She was advised to avoid idle sitting and standing and to elevate the limb to control edema. If she has continued pain particularly with leg elevation, I recommend she intermittently dangles the leg as well. I also recommend she proceeds with noninvasive arterial study. This was performed and she will proceed with the recommended tests by vascular surgery prior to additional intervention. I reviewed Dr. Morel's plan and documentation. She additionally had an updated test performed and intervention is not recommended at this time from an arterial standpoint. She will follow-up in 6 months to see if it is warranted at that time or needed. To d/c tubigrip due to inability to tolerate. I recommend at least continuing with the use of an Candelario wrap and this was applied again today. It appears she does have some mild form of venous insufficiency after reviewing her venous Doppler exam. She does also have significant bilateral lower extremity monophasic waveforms with ABIs of around 0.5 bilaterally. I also recommend updated labs including CBC, CMP, and prealbumin to assess her current medical status. Leukocytosis was noted and this will be monitored pending clinical progression. Her prealbumin was 19.8 and proper nutrition and supplementation was reviewed. An order was provided previously and she was advised to obtain. To proceed with a proper control diet and nutrition supplementation to optimize healing. I answered all of her questions and explained the etiology of ulcer causes and the comprehensive wound healing plan. To return to clinic in 1 week. She would benefit from serial debridement and application of advanced wound healing product to prevent limb loss. This is medically necessary. . 2020 quality measures reviewed as the following: Reviewed today-pain level was confirmed in follow-up plan was documented, medication and allergy reconciliation was performed. Reviewed 12-27-2019: She denies falling this past year. Reviewed 11/15/2019-pneumonia v accination was confirmed, influenza immunization was confirmed for this current season in July 2019, advanced care plan was confirmed with living will, she is a current tobacco non user, her blood pressure is elevated over 120/80 and I recommend she follows up with her primary care physician for medical management of this. Diet and exercise benefits were also discussed for educational purpos es to optimize her wound healing and medical management.
== END 2020-03-07 23:59 ==
LOC: WC 14:30
PROVIDERS: Referring Provider Podiatrist; Visit Provider Podiatrist
DX: I73.89 Other specified peripheral vascular diseases (principal); I87.2 Venous insufficiency (chronic) (peripheral); L97.822 Non-pressure chronic ulcer of other part of left lower leg with fat layer exposed; M79.605 Pain in left leg; R60.0 Localized edema; Z86.12 Personal history of poliomyelitis
CPT/HCPCS: 11042; 11045; 15271; Q4186

== ENCOUNTER 2020-03-26 15:11 | Inpatient (IN) | payer MEDICARE, OTHER, SELFPAY ==
[2020-03-20 15:30] VITALS: BMI 30.6
[2020-03-26] VITALS (11 sets, daily range): BP systolic 97–132; BP diastolic 42–66; PULSE 112–150; RESP 16–29; TEMP 36.7–39.1; O2SAT 92–98; BMI 29.9; BMI 30.7
--- NOTE | 2020-03-26 15:34 | EKG12_ITS ---
Test Reason : Blood Pressure : / mmHG Vent. Rate : 139 BPM Atrial Rate : 139 BPM P-R Int : 126 ms QRS Dur : 060 ms QT Int : 262 ms P-R-T Axes : 071 038 069 degrees QTc Int : 398 ms Sinus tachycardia Low voltage QRS Nonspecific ST and T wave abnormality Abnormal ECG Confirmed by ORLIN OLIVARES, DHARA ([id number]), health editor CIRA DEAL ([id number]) on 04/02/2020 3:31:42 PM Referred By: RASHI Confirmed By:DHARA ORDAZ MD
[2020-03-26] MEDS: 0.9% Normal Saline 1,000 ML 1000 ML IV (15:39)
--- NOTE | 2020-03-26 15:45 | ED.DCSUM_ITS ---
- ER Visit Summary Date of Service: 03/26/20 Chief Complaint: Fever History of Present Illness: The patient is a 69 F presenting with fever, cough, diarrhea. Patient states that started on Wednesday. She has had 3-4 episodes of diarrhea per day. She denies blood in her stool. She has a history of C. difficile in November and completed treatment. She is unsure if this feels similar. No recent antibiotics before her symptoms started. She called her primary care physician and was started on p.o. vancomycin on Wednesday. No sick contacts. No recent travel. No known exposure to COVID. She denies chest pain, complains of heart racing. She states she has baseline tachycardia. Denies shortness of breath. Denies abdominal pain. Wound to her left lower extremity. She states this is followed by Dr. Cooper. She states the redness has actually improved. Physical Examination: Blood pressure 132/66, temperature 102.3, heart rate 150, respiratory rate 24, pulse ox 93% on room air. Alert no acute distress. HEENT exam dry mucous membranes Neck is supple. Lungs are clear and equal bilaterally. Heart is regular and tachycardic Abdomen is soft nontender nondistended. No guarding or rebound Extremities chronic wound left anterior montes de oca. Skin is warm and dry. No focal neurologic deficit. Remainder of exam is unremarkable. Emergency Department Course and Treatment: Patient was given IV fluids, Tylenol. EKG is sinus tachycardia rate of 139. CBC shows white count 25.4, 91% neutrophils, 3.2% lymphocytes. Chemistries show sodium 131, potassium 2.8. Urinalysis unremarkable. Troponin is negative. Lactic acid is normal. Blood cultures were sent. Stool studies were ordered. Chest xray shows no acute process, stable COPD changes, stable minimal pulmonary scarring. Left tib-fib x-ray shows soft tissue edema and soft tissue ulceration likely cellulitis. CT abdomen pelvis shows significant colitis pattern most significant within the descending colon, sigmoid colon and rectum with some involvement of the distal transverse colon. Findings are suspicious for infectious/inflammatory etiologies including ulcerative colitis. Pseudomembranous colitis also cannot be excluded. Ischemia is in the differential diagnosis. Moderate bladder distention. Small hiatal hernia. S-shaped thoracolumbar spinal scoliosis with osteophyte formation. The significant atrophy in the anterior thigh muscles. There are significant degenerative changes left hip. Mild gallbladder distention, punctate gallstone. Patient was given vancomycin p.o. Discussed with the hospitalist for admission. Disposition: Admission Impression: Febrile illness, colitis, diarrhea This note was generated with [employer] dictation software. It may contain incorrect words, spelling, and punctuation that were not noted in review of the chart prior to signing ED Disposition - Plan for ED Patient: Referrals: Boo Saunders MD [Primary Care Provider] -
[2020-03-26] MEDS: Acetaminophen 500 MG Tablet 1000 MG PO (15:47)
--- NOTE | 2020-03-26 15:55 | RAD_ITS ---
STUDY: X-RAY CHEST REASON FOR EXAM: Female, 69 years old. diarrhea x 5 days, fever x 1 day, moist cough x 3 days, Hx C-Diff TECHNIQUE: Portable chest COMPARISON: 11/30/2019 FINDINGS: There are stable predominantly upper lobe COPD changes. There is scattered minimal pulmonary scarring unchanged. There is stable right perihilar calcified granuloma. There are calcified right hilar lymph nodes.. There is no demonstrated pleural abnormality. Normal size heart. Normal mediastinum and jarvis. Normal visualized pulmonary arteries. Normal visualized aortic arch and descending thoracic aorta. Normal visualized thoracic spine. Normal visualized ribs, clavicles, and shoulders. There is no demonstrated abnormality of the visualized soft tissue structures of the upper abdomen. RAD/Chest 1 View (Portable) IMPRESSION: No acute process, stable COPD changes, stable minimal pulmonary scarring Electronically Signed: Pola Degroot at 16:25 EDT Tel , Service support ,
[2020-03-26 15:59] LABS: Absolute Neutrophil Count 23.2 X10^3/uL (2.0-7.7); Basophil# 0.07 X10^3/uL; Basophil% 0.3 % (0-1); Eosinophil# 0.09 X10^3/uL; Eosinophils% 0.4 % (0-5); Hematocrit 39.8 % (37-47); Hemoglobin 12.9 g/dL (12.0-15.0); Lymphocyte % 3.2 % (19-41); Mean Corp Hgb Conc 32.4 g/dL (32-36); Mean Corpuscular Hgb 28.3 pg (27.0-32.0); Mean Corpuscular Volume 87.3 fL (81-99); Mean Platelet Vol. 8.5 fl (6.2-12.0); Monocyte# 1.11 X10^3/uL; Monocyte% 4.4 % (0-10); NRBC Flagged by Analyzer 0 % (0-5); Neutrophil # 23.18 X10^3/uL (2.7-7.7); Neutrophil % 91.1 % (47-70); POSITIVE DIFFERENTIAL YES; Platelet Count 424 K/mm3 (150-450); RBC Distribution Width CV 13.9 % (11.6-14.6); RBC Distribution Width SD 44.4 fl (35.1-43.9); Red Blood Count 4.56 M/mm3 (4.2-5.4); White Blood Count 25.4 K/mm3 (4.4-11.0)
[2020-03-26 16:10] LABS: Differential Indicated SCAN CRITERIA MET
--- NOTE | 2020-03-26 16:12 | CT_ITS ---
STUDY: CT ABDOMEN AND PELVIS WITH CONTRAST REASON FOR EXAM: Female, 69 years old. DIARRHEA X 5 DAYS, ABD PAIN, FEVER, COUGH, CHILLS RADIATION DOSAGE (If Supplied By Facility): CTDIvol = ( 12.92 ) mGy, DLP = ( 611.10 ) mGycm TECHNIQUE: Transaxial images were obtained from the dome of the diaphragm to the symphysis pubis without oral contrast. Oral and amp; IV Gastrografin and amp; 100mL Isovue-300 was administered. Sagittal and coronal images were reconstructed. Individualized dose optimization techniques were used for this CT. COMPARISON: None. FINDINGS: There is 4 mm pleural-based pulmonary nodule within the right middle lobe.. There is a small hiatal hernia. The visualized portions of the heart are within normal limits. Normal liver. There is likely a punctate gallstone. Normal spleen. Normal pancreas. Normal bilateral adrenal glands. Normal right kidney. Normal left kidney. Normal visualized stomach. Normal small intestine. There is significant wall thickening of the descending colon, sigmoid colon and rectum with stranding within the pericolonic fat.. There is also mild wall thickening of the distal transverse colon with stranding in the right colonic fat. The cecum and ascending colon and proximal transverse colon demonstrate mild distention without significant wall thickening. There is a small hiatal hernia. Normal abdominal aorta. Normal inferior vena cava. Normal retroperitoneum. There is moderate bladder distention Normal abdominal wall. There is S-shaped thoracolumbar spinal scoliosis with osteophyte formation. The significant atrophy in the anterior thigh muscles. There are significant degenerative changes left hip CT/Abdomen/Pelvis WITH Contrast IMPRESSION: Significant colitis pattern most significant within the descending colon, sigmoid colon and rectum with some involvement of the distal transverse colon. Findings are suspicious for infectious/inflammatory etiologies including ulcerative colitis. Pseudomembranous colitis also cannot be excluded. Ischemia is in the differential diagnosis. Moderate bladder distention Small hiatal hernia S-shaped thoracolumbar spinal scoliosis with osteophyte formation. The significant atrophy in the anterior thigh muscles. There are significant degenerative changes left hip Mild gallbladder distention, punctate gallstone Electronically Signed: Pola Degroot, at 19:11 EDT Tel , Service support ,
[2020-03-26 16:17] LABS: ALB/GLOB Ratio 0.6 RATIO (0.9-2.4); AST(SGOT) 23 U/L (15-37); Alanine Aminotransfer ALT/SGPT 15 U/L (13-56); Albumin, Serum 2.9 g/dL (3.2-5.0); Alkaline Phosphatase 106 U/L (45-117); Anion Gap 11 (5-15); BUN 7 mg/dL (7-18); Calcium,Total 8.8 mg/dL (8.5-10.1); Chloride 94 mmol/L (98-107); Creatinine, Serum 0.64 mg/dL (0.55-1.02); EST Glomerular Filtration Rate 98 mL/min (>60); Est Glom Filt Rate - Afr Amer 118 mL/min (>60); Estimated Creatinine Clearance 52.87 ml/min; Glucose 106 mg/dL (74-106); Potassium 2.8 mmol/L (3.5-5.1); Protein, Total 7.9 g/dL (6.4-8.2); Sodium Level 131 mmol/L (136-145)
[2020-03-26 16:23] LABS: Lactic Acid 1.6 mmol/L (0.4-1.9)
[2020-03-26 16:38] LABS: Differential Comment SCANNED
[2020-03-26 16:42] LABS: Bacteria 0 SEEN /hpf (None Seen); Red Blood Cells-Urine 0 SEEN /hpf (0-5); Squamous Epithelial Cells - UA 0 SEEN /hpf (5-10); White Blood Cells 0 SEEN /hpf (0-5)
[2020-03-26] MEDS: 0.9% Normal Saline 1,000 ML 999 ML IV (16:43)
[2020-03-26 16:49] LABS: Color, Urine Yellow (Yellow); Glucose, Dipstick Normal (Normal); Ketone-Dipstick 50 mg/dl (Negative); Leukocyte Esterase-Dipstick Negative /ul (Negative); Nitrite-Dipstick Negative (Negative); Occult Blood-Urine 10 /ul (Negative); Protein-Dipstick 30 mg/dl (Negative); Specific Gravity, Urine 1.015 (1.002-1.030); Urine Clarity Clear (Clear); Urine Urobilinogen Normal (Normal)
[2020-03-26 16:50] LABS: Urine Bilirubin Dipstick 1 mg/dL (Negative)
[2020-03-26 16:55] LABS: Mucous, Urine 1+ /hpf (<or=2+)
--- NOTE | 2020-03-26 17:28 | RAD_ITS ---
STUDY: X-RAY - LEFT TIBIA AND FIBULA REASON FOR EXAM: Female, 69 years old. LEFT LEG ULCER. REDNESS AND SWELLING TECHNIQUE: AP and lateral view(s) of the tibia and fibula were obtained. COMPARISON: None. FINDINGS: There is generalized osteopenia. There is soft tissue edema and soft tissue ulcerations. There are no lytic or blastic lesions. There is no periosteal reaction or fractures. RAD/Tibia & Fibula 2 Views IMPRESSION: Soft tissue edema and soft tissue ulceration likely cellulitis Electronically Signed: Pola Degroot, at 17:59 EDT Tel , Service support ,
--- NOTE | 2020-03-26 20:24 | HP.PCM_ITS ---
Problem List (1) Colitis Status: Acute (2) Cellulitis of left leg Status: Acute (3) Thyroid disorder Status: Chronic (4) C. difficile colitis Status: Resolved (5) HTN (hypertension) Status: Chronic Qualifiers: Hypertension type: essential hypertension Qualified Code(s): I10 - Essential (primary) hypertension (6) HLD (hyperlipidemia) Status: Chronic Qualifiers: Hyperlipidemia type: unspecified Qualified Code(s): E78.5 - Hyperlipidemia, unspecified (7) Former tobacco use Status: Chronic (8) Sinus tachycardia Status: Chronic History of Present Illness Date of Admission: 03/26/20 Chief Complaint: Diarrhea, fever, cough x 3 days The patient is a 69 y/o F w/ PMHx: Hx C-diff (11/2018 after cipro), HTN, HLD, Hypothyroidism, Chronic Sinus Tachycardia (rate usually 100-130s), Chronic LLE wound following w/ Dr. Cooper at [facility], Former tobacco use who presents to the [facility] ED on 03/26/20 with history of ongoing diarrhea, profuse starting the Wednesday prior to presentation with initiation of oral vancomycin on Wednesday however patient denies any improvement despite this regimen addition with nausea and emesis however no associated abdominal pain with ongoing dry cough although she notes this might be chronic but in the ED evaluation concerning for evidence of dyspnea with some accessory muscle usage and T102.3. Patient denies any myalgias, arthralgias, alteration to sense of taste or smell. She denies notable change to the left lower extremity chronic wound but upon evaluation in the ED it has yellow discharge although not specifically foul-smelling but does have periwound erythema. Work-up in the ED included T initial 102.3, heart rate initially 150, BP 132/66, respiratory rate 24, 92% on room air with repeat prior to admission T 99, heart rate 128, BP 120/50, respiratory rate 19, new 5% on room air, CBC with WBC 25.4, hemoglobin 12.9, platelet 424 with left shift however also noted concurrent lymphopenia, CMP with sodium 131, potassium 2.8, chloride 94, lactic acid 1.6, troponin less than 0.015, UA not market appearing with no obvious evidence UTI, COVID PCR negative, culture x2 pending per ED, C. difficile assay negative, enteric stool culture per ED, chest x-ray with chronic COPD changes, CT abdomen and pelvis with significant colitis pattern most significant within the descending colon, sigmoid colon and rectum with some involvement of the distal transverse colon suspicious for infectious/inflammatory etiology including possible ulcerative colitis, pseudomembranous colitis also cannot be excluded, ischemia also possible, moderate bladder distention, small hiatal hernia, S shaped thoracolumbar spinal scoliosis with osteophyte formation, significant atrophy of the anterior thigh muscles, degenerative changes of the left hip, mild gallbladder distention with a punctate gallstone. In the ED patient administered oral vancomycin while she had been awaiting C. difficile assay, normal saline, Tylenol. Discussion with ED physician given CT findings and negative C. difficile assay noted with decision to initiate meropenem. ED physician initiated consultation with general surgery, Dr. Carrasco given CT finding. Discussed case with Dr. Carrasco and also contacted Dr. De La Cruz, infectious disease with decision to continue meropenem pending enteric, plan repeat COVID testing in AM, continue oral vanc given abx usage pending ID evaluation. ED also discussed case with Dr. Cooper who will evaluate in AM with requested wound Cx and wound MRSA PCR. Past Medical History Past Medical History (Chronic Problems): Chronic Problems Ulcer of left lower extremity with fat layer exposed (Chronic) Delayed wound healing (Chronic) Venous insufficiency (Chronic) left Greater saphenous vein Other specified peripheral vascular diseases (Chronic) bilateral lower extremity Left leg pain (Chronic) Leg edema, left (Chronic) MVP (mitral valve prolapse) (Chronic) Thyroid disorder (Chronic) HTN (hypertension) (Chronic) HLD (hyperlipidemia) (Chronic) Former tobacco use (Chronic) Sinus tachycardia (Chronic) Allergies naproxen [From Naprosyn] Allergy (Verified 03/26/20 15:14) Rash Penicillins [PCN] Allergy (Verified 03/26/20 15:14) Rash amoxicillin Adverse Reaction (Verified 03/26/20 15:14) Rash cephalexin [From Keflex] Adverse Reaction (Verified 03/26/20 15:14) Rash clotrimazole [From Lotrimin] Adverse Reaction (Verified 03/26/20 15:14) Rash diphenhydramine [From Benadryl] Adverse Reaction (Verified 03/26/20 15:14) Rash griseofulvin Adverse Reaction (Verified 03/26/20 15:14) Rash ibuprofen [From Motrin] Adverse Reaction (Verified 03/26/20 15:14) Rash miconazole [From Monistat 1 Combo Pack] Adverse Reaction (Verified 03/26/20 15:14) Rash propranolol [From Inderal LA] Adverse Reaction (Verified 03/26/20 15:14) Rash rofecoxib [From Vioxx] Adverse Reaction (Verified 03/26/20 15:14) Rash Sulfa (Sulfonamide Antibiotics) Adverse Reaction (Verified 03/26/20 15:14) Rash Home Medications: Ambulatory Orders Medication Instructions Recorded Aspirin E.C. [Ecotrin] 81 mg PO QHS 11/28/19 Doxepin HCl [Sinequan] 10 mg PO QHS 11/28/19 Furosemide [Lasix] 40 mg PO DAILY PRN PRN 11/28/19 Levothyroxine [Synthroid] 137 mcg PO QHS 11/28/19 Pentoxifylline [Trental] 400 mg PO DAILY 11/28/19 Simvastatin [Zocor] 40 mg PO QHS 11/28/19 Collagenase [Santyl] 1 applic TOPICAL DAILY 03/26/20 Lactobacillus Acidophilus 2 tab PO BID 03/26/20 [Acidophilus] Metoprolol Tartrate 50 mg PO DAILY 03/26/20 Metoprolol Tartrate [Lopressor 100 mg PO QHS 03/26/20 (Beta Mehran)] Vancomycin [Vancocin] 250 mg PO Q6H 03/26/20 Surgical History: - - Bilateral lower extremity surgery for polio in her youth, bilateral tubal ligation. Psychiatric History: No pertinent psych hx [employer] AD[employer] History: No pertinent [employer] history Lives: Spouse/ Significant Other Smoking Status: Former smoker - Patient quit remotely but cannot give exact year. Tobacco Use: Non-smoker Alcohol: None Drugs: None - *Family History Maternal History Items: Heart Disease Paternal History Items: Heart Disease Review of Systems Constitutional: Reports: Anorexia, Fever, Malaise, Weakness, Fatigue. Denies: Chills, Weight Change HEENT: Denies: Head Aches, Nasal Congestion, Sinus Congestion, Sinus Drainage, Visual Changes Cardiovascular: Denies: Chest Pain, Chest Pressure, Chest Tightness, Light Headedness, Orthopnea, Palpitations, Syncope Respiratory: Reports: Cough, Shortness of Breath, Shortness of breath at rest, Shortness of breath upon exertion. Denies: Sputum production Gastrointestinal: Reports: Diarrhea. Denies: Abdominal Pain, Nausea, Vomiting Genitourinary: Denies: Dysuria Musculoskeletal: Reports: Joint Pain. Denies: Joint Tenderness Skin: Reports: Skin Changes, Wounds. Denies: Rash Neurological: Denies: Numbness, Tingling, Focal weakness Psychiatric: Denies: Anxiety, Depression, Homicidal Ideations, Suicidal Ideations Hematologic/ Lymphatic: Denies: Easy Bruising, Easy Bleeding VTE Information - Inpt Only VTE Present on Admission: No VTE Mechan Device Prophylaxis: SCD's VTE Pharm Prophylaxis ordered?: Yes Patient Problems: Active and Suspected Problems Colitis (Acute) Subjective: Seated upright in the ED bed, fatigued and ill-appearing, evidence of mild increased work of breathing with some accessory muscle usage, occasional cough during evaluation. Objective: Physical Examination: General: awake, alert, oriented x 3 and cooperative, seated upright in the ED bed, fatigued and ill-appearing, mild evidence of respiratory increased work of breathing and mild accessory muscle usage, coughing during evaluation. Skin: normal color, turgor, no icterus, cyanosis except significant left lower extremity anterior [place] wound with yellow discharge, no specific foul odor but periwound cellulitic erythema. HEENT: AT/NC, EOMI, PERRLA, dry MM, no carotid bruits or JVD noted. Lungs: Diminished breath sounds, greater bases, very scant occasional end expiratory wheeze, no obvious rales or rhonchi, mild increased work of breathing with some accessory muscle usage and occasional coughing during evaluation. Heart: Tachycardic with regular rhythm; no gallop, rub audible. Abdomen: soft, NTTP, ND, hyperactive BS, no HSM. Extremities: no cyanosis, clubbing, or edema. Neurological: patient awake, alert, oriented x 3; cognitive function near baseline but very fatigued; pupils equally reactive to light and accomodation; cranial nerves II-XII grossly normal, moving all 4 extremities, no focal deficits, strength severely global decrease secondary to acute presentation. Psychiatric: affect appears fatigued and ill-appearing, no acute evidence of depressive or anxiety feelings. - Physical Exam Vitals/I&O's: Vital Signs Temp Pulse Resp BP Pulse Ox 99 F 128 H 21 H 128/50 H 97 03/26/20 19:00 03/26/20 19:00 03/26/20 19:00 03/26/20 19:00 03/26/20 19:00 Oxygen Delivery Method Room Air Weight: 143 lb 1.28 oz Body Mass Index (BMI) 29.9 Intake and Output for Last 24 Hours 03/24/20 03/25/20 03/26/20 23:59 23:59 23:59 Intake Total 1000 / 1000 Balance 1000 / 1000 Microbiology Past 72 Hours 03/26/20 16:35 Stool C. difficile DNA Amplification - Final 03/26/20 16:05 Mucosa - Nasopharyngeal Coronavirus COVID-19 PCR - Final Laboratory Results 03/26/20 15:30: WBC 25.4 H, RBC 4.56, Hgb 12.9, Hct 39.8, MCV 87.3, MCH 28.3, MCHC 32.4, RDW Std Deviation 44.4 H, RDW Coeff of Naseem 13.9, Plt Count 424, MPV 8.5, Immature Gran % (Auto) 0.600, Neut % (Auto) 91.1 H, Lymph % (Auto) 3.2 L, Faulkner % (Auto) 4.4, Eos % (Auto) 0.4, Baso % (Auto) 0.3, Absolute Neuts (auto) 23.2 H, Absolute Lymphs (auto) 0.80 L, Nucleated RBC % 0, Differential Comment SCANNED 03/26/20 15:30: Sodium 131 L, Potassium 2.8 L, Chloride 94 L, Carbon Dioxide 26.0, Anion Gap 11, BUN 7, Creatinine 0.64, Estim Creat Clear Calc 52.87, Est GFR (MDRD) Af Amer 118, Est GFR (MDRD) Non-Af 98, BUN/Creatinine Ratio 11.0, Glucose 106, Calcium 8.8, Total Bilirubin 0.60, AST 23, ALT 15, Alkaline Phosphatase 106, Troponin I < 0.015, Total Protein 7.9, Albumin 2.9 L, Globulin 5.0 H, Albumin/Globulin Ratio 0.6 L 03/26/20 15:30: Lactic Acid 1.6 03/26/20 16:05: COVID-19 ([facility]) Cancelled 03/26/20 16:20: Urine Color Yellow, Urine Clarity Clear, Urine pH 6.0, Ur Sp ecific Boelus 1.015, Urine Protein 30 H, Urine Glucose (UA) Normal, Urine Ketones 50 H, Urine Occult Blood 10 H, Urine Nitrite Negative, Urine Bilirubin 1 H, Urine Urobilinogen Normal, Ur Leukocyte Esterase Negative, Urine RBC 0 SEEN, Urine WBC 0 SEEN, Ur Squamous Epith Cells 0 SEEN, Urine Bacteria 0 SEEN, Urine Mucus 1+ Assessment/Plan All Active Problems Cellulitis of left leg (Acute) Diarrhea (Acute) Tachycardia (Acute) C. difficile colitis (Resolved) Ulcer of left lower extremity, limited to breakdown of skin (Acute) Colitis (Acute) The patient is a 69 y/o F w/ PMHx: Hx C-diff (11/2018 after cipro), HTN, HLD, Hypothyroidism, Chronic Sinus Tachycardia (rate usually 100-130s), Chronic LLE wound following w/ Dr. Cooper at [facility], Former tobacco use who presents to the [facility] ED on 03/26/20 with history of ongoing diarrhea, profuse starting the Wednesday prior to presentation with initiation of oral vancomycin on Wednesday however patient denies any improvement despite this regimen addition with nausea and emesis however no associated abdominal pain with ongoing dry cough although she notes this might be chronic but in the ED evaluation concerning for evidence of dyspnea with some accessory muscle usage and T102.3. 1. Diarrhea, Cough, Dsypnea, Fever concerning for Possible COVID-19 infection versus Acute Colitis: CT abdomen and pelvis with significant colitis pattern most significant within the descending colon, sigmoid colon and rectum with some involvement of the distal transverse colon suspicious for infectious/inflammatory etiology including possible ulcerative colitis, pseudomembranous colitis also cannot be excluded, ischemia also possible, moderate bladder distention, small hiatal hernia, S shaped thoracolumbar spinal scoliosis with osteophyte formation, significant atrophy of the anterior thigh muscles, degenerative changes of the left hip, mild gallbladder distention with a punctate gallstone. CBC with WC 25.4 with left shift with concurrent lymphopenia. COVID testing negative in the ED however given presentation to be cautious will maintain in precautions, admit to COVID unit as PCU status, repeat COVID testing in a.m., continue judicious hydration, allow clears given CT findings, continue IV meropenem, continued oral vancomycin as noted given history pending infectious disease reevaluation, pending a.m. evaluation with general surgery which was initiated per ED physician, defer PPI given C. difficile history, monitor I's and O's, PRN pain regimen as well as antiemetic regimen. Given pending repeat COVID will obtain procalcitonin, CRP, CPK, Ferritin, LDH. 2. Left lower extremity wound with periwound cellulitis: Possibly contributing to leukocytosis and acute presentation, will maintain on meropenem, wound RN consultation requested, continue dressing changes, Dr. Cooper and consulted and evaluation pending in AM. We will continue Trental home regimen. 3. Hypokalemia: Admission K+ 2.8, magnesium level requested, supplementation given, repeat level in AM. 4. Hyponatremia, mild, hypovolemic: Admission sodium 131, likely secondary to GI losses as noted, continue judicious hydration with repeat CMP in a.m. 5. History of C. difficile: Initial concern outpatient for C. difficile with initiation of oral vancomycin however currently C. difficile is negative, given meropenem usage and severe history per discussion with patient will continue oral vancomycin pending ID evaluation, possibly discontinuation versus de- escalation to twice daily continue lactobacillus supplementation. 6. Chronic sinus tachycardia: Patient with rate usually 100-1 30s, will continue patient beta-mehran therapy, in the ED's rate 130s to 140s, has missed medications today, dosing evening with PRN agents if needed. 7. Hypothyroidism: Continue home synthroid regimen. 8. Hypertension: Continue home regimen including metoprolol, PRN hydralazine. 9. Hyperlipidemia: Continue home statin regimen. 10. DVT prophylaxis: SCDs, Lovenox. 11. CODE status: Patient NILTON is her and living will is not currently in place. Discussed CODE status at length including difference between FULL code, DNR-CCA and DNR-CC status. Following discussions about the differences in these status, requested Full Code status. Advanced Care Planning Face to Face Time: 16 minutes. Inpatient E&M: 51063 Init Hosp L3 Procedures: 68390 Advncd Care Plan 30 Min
[2020-03-26] MEDS: Vancomycin HCl 250 MG Capsule 500 MG PO (20:27)
[2020-03-27] VITALS (21 sets, daily range): BP systolic 110–129; BP diastolic 45–74; PULSE 69–132; RESP 14–24; TEMP 36.4–37.7; O2SAT 2–99
[2020-03-27] MEDS: 0.9% Normal Saline 1,000 ML 100 ML IV ×3 (00:11→20:33)
[2020-03-27] MEDS: Aspirin E.C. 81 MG Tablet PO ×2 (00:11→22:27)
[2020-03-27] MEDS: Atorvastatin Calcium 20 MG Tablet PO ×2 (00:12→22:28)
[2020-03-27] MEDS: Levothyroxine 137 MCG Tablet PO ×2 (00:12→22:29)
[2020-03-27] MEDS: Metoprolol Tartrate 100 MG Tablet PO ×2 (00:12→22:28)
[2020-03-27] MEDS: Doxepin Hydrochloride 10 MG Capsule PO ×2 (00:13→22:29)
[2020-03-27 00:43] LABS: D-Dimer Quantitative (DVT/PE) 2.86 FEU/ug/m (0.27-0.49)
--- NOTE | 2020-03-27 00:53 | VDLE_ITS ---
Reason For Study: Shortness of breath RIGHT LEFT Right CFV, SFJ, FV, PopV are compressible. Right CFV, SFJ, FV, PopV are compressible. GSV is normal. Calf veins not visualizd due to bandages on T/P Trunk is compressible. open wounds. PTV is compressible. GSV is normal. RT PerV is compressible. T/P Trunk is compressible. Procedure Exam performed portable in ICU/CCU. The exam was abbreviated due to the COVID 19 protocol. A preliminary report was called and/or faxed to [facility]. Interpretation Summary No evidence for acute deep venous thrombosis right lower extremity with patent and compressible right great saphenous vein No evidence for acute deep vein thrombosis left lower extremity however calf veins not visualized secondary to bandages Patent and compressible left great saphenous vein Abbreviated Covid-19 protocol Ordering Physician: Monserrat Rodas Referring Physician: Boo Saunders Performed By: Stella Monique RVT
[2020-03-27 01:00] LABS: Procalcitonin 1.54 ng/mL (0.00-0.09)
[2020-03-27] MEDS: Enoxaparin 80 MG/0.8 ML Syringe 70 MG SC ×3 (01:16→22:28)
[2020-03-27 01:59] LABS: M R Staph aureus DNA By PCR Negative (Negative)
[2020-03-27 01:59] LABS: M R Staph aureus DNA By PCR Negative (Negative); Probe Check PASS; Specimen Processing Control PASS
[2020-03-27 02:00] LABS: Probe Check PASS; Specimen Processing Control PASS; Staph aureus DNA By PCR NEGATIVE (Negative)
[2020-03-27 02:30] LABS: CPK Total, Creatine Kinase 203 U/L (26-192); Ferritin 243 ng/mL (8-252); LDH 176 U/L (84-246); Lipase 12 U/L (73-393); Magnesium 1.6 mg/dL (1.6-2.6)
[2020-03-27] MEDS: Acetaminophen 325 MG Tablet 650 MG PO (04:35)
[2020-03-27] MEDS: 0.9% Saline Lock 10 ML Syringe IV (04:38)
[2020-03-27 05:04] LABS: Absolute Lymphocyte Count 0.93 X10^3/uL (0.83-4.51); Absolute Neutrophil Count 25.5 X10^3/uL (2.0-7.7); Basophil# 0.08 X10^3/uL; Basophil% 0.3 % (0-1); Eosinophil# 0.06 X10^3/uL; Eosinophils% 0.2 % (0-5); Hematocrit 34.7 % (37-47); Lymphocyte # 0.93 X10^3/ul (4.0); Lymphocyte % 3.2 % (19-41); Mean Corp Hgb Conc 31.7 g/dL (32-36); Mean Corpuscular Hgb 28.5 pg (27.0-32.0); Mean Corpuscular Volume 89.9 fL (81-99); Mean Platelet Vol. 8.8 fl (6.2-12.0); Monocyte# 1.23 X10^3/uL; Monocyte% 4.3 % (0-10); NRBC Flagged by Analyzer 0 % (0-5); Neutrophil # 25.53 X10^3/uL (2.7-7.7); Neutrophil % 88.6 % (47-70); POSITIVE DIFFERENTIAL YES; Platelet Count 370 K/mm3 (150-450); RBC Distribution Width CV 13.8 % (11.6-14.6); RBC Distribution Width SD 45.6 fl (35.1-43.9); Red Blood Count 3.86 M/mm3 (4.2-5.4); White Blood Count 28.8 K/mm3 (4.4-11.0)
[2020-03-27 05:10] LABS: Differential Indicated SCAN CRITERIA MET
[2020-03-27 05:21] LABS: ALB/GLOB Ratio 0.6 RATIO (0.9-2.4); AST(SGOT) 21 U/L (15-37); Alanine Aminotransfer ALT/SGPT 14 U/L (13-56); Albumin, Serum 2.2 g/dL (3.2-5.0); Alkaline Phosphatase 94 U/L (45-117); Anion Gap 7 (5-15); BUN 6 mg/dL (7-18); BUN/Creat Ratio 10.8 RATIO (10-20); Calcium,Total 7.9 mg/dL (8.5-10.1); Chloride 102 mmol/L (98-107); Creatinine, Serum 0.55 mg/dL (0.55-1.02); EST Glomerular Filtration Rate 115 mL/min (>60); Est Glom Filt Rate - Afr Amer 139 mL/min (>60); Estimated Creatinine Clearance 54.41 ml/min; Glucose 102 mg/dL (74-106); Potassium 3.1 mmol/L (3.5-5.1); Protein, Total 6.2 g/dL (6.4-8.2); Sodium Level 137 mmol/L (136-145)
[2020-03-27 05:40] LABS: Differential Comment SCANNED
[2020-03-27 05:41] LABS: Atypical Lymphocyte RARE %
--- NOTE | 2020-03-27 07:23 | CON.PCM_ITS ---
Reason for Consult Date of Consultation: 03/27/20 History of Present Illness: The patient is a 69 year old F presenting to the ER and was admitted due to diarrhea/colitis/leukocytosis along with a left lower extremity chronic leg wound. Patient states she is previously had C. difficile in November which did i mprove states her diarrhea started on Wednesday. Patient denies any blood in her stool. Patient denies any abdominal pain nausea or vomiting. Patient CT abdomen pelvis did show a colitis in the left colon. Patient's white blood count was 25 on admit currently is 28 she was started on Vanco and meropenem ID is also consulted. Stool studies are also pending, patient was tested for C. difficile which was negative, COVID testing also negative. Patient denies ever having a colonoscopy or any family history of ulcerative colitis or UC. Patient does complain of a cough but states that is chronic and she has had it for a while. Past Medical History Past Medical History (Chronic Problems): Chronic Problems Ulcer of left lower extremity with fat layer exposed (Chronic) Delayed wound healing (Chronic) Venous insufficiency (Chronic) left Greater saphenous vein Other specified peripheral vascular diseases (Chronic) bilateral lower extremity Left leg pain (Chronic) Leg edema, left (Chronic) Colonization status (Chronic) MVP (mitral valve prolapse) (Chronic) Thyroid disorder (Chronic) HTN (hypertension) (Chronic) HLD (hyperlipidemia) (Chronic) Former tobacco use (Chronic) Sinus tachycardia (Chronic) Allergies naproxen [From Naprosyn] Allergy (Verified 03/26/20 15:14) Rash Penicillins [PCN] Allergy (Verified 03/26/20 15:14) Rash amoxicillin Adverse Reaction (Verified 03/26/20 15:14) Rash cephalexin [From Keflex] Adverse Reaction (Verified 03/26/20 15:14) Rash clotrimazole [From Lotrimin] Adverse Reaction (Verified 03/26/20 15:14) Rash diphenhydramine [From Benadryl] Adverse Reaction (Verified 03/26/20 15:14) Rash griseofulvin Adverse Reaction (Verified 03/26/20 15:14) Rash ibuprofen [From Motrin] Adverse Reaction (Verified 03/26/20 15:14) Rash miconazole [From Monistat 1 Combo Pack] Adverse Reaction (Verified 03/26/20 15:14) Rash propranolol [From Inderal LA] Adverse Reaction (Verified 03/26/20 15:14) Rash rofecoxib [From Vioxx] Adverse Reaction (Verified 03/26/20 15:14) Rash Sulfa (Sulfonamide Antibiotics) Adverse Reaction (Verified 03/26/20 15:14) Rash Home Medications: Ambulatory Orders Medication Instructions Recorded Aspirin E.C. [Ecotrin] 81 mg PO QHS 11/28/19 Doxepin HCl [Sinequan] 10 mg PO QHS 11/28/19 Furosemide [Lasix] 40 mg PO DAILY PRN PRN 11/28/19 Levothyroxine [Synthroid] 137 mcg PO QHS 11/28/19 Pentoxifylline [Trental] 400 mg PO DAILY 11/28/19 Simvastatin [Zocor] 40 mg PO QHS 11/28/19 Collagenase [Santyl] 1 applic TOPICAL DAILY 03/26/20 Lactobacillus Acidophilus 2 tab PO BID 03/26/20 [Acidophilus] Metoprolol Tartrate 50 mg PO DAILY 03/26/20 Metoprolol Tartrate [Lopressor 100 mg PO QHS 03/26/20 (Beta Mehran)] Vancomycin [Vancocin] 250 mg PO Q6H 03/26/20 Surgical History: - - Bilateral lower extremity surgery for polio in her youth, bilateral tubal ligation. 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 Tobacco Use: Non-smoker Alcohol: None Drugs: None - *Family History Maternal History Items: Heart Disease Paternal History Items: Heart Disease Review of Systems Constitutional: Denies: Fever Eyes: Denies: Double vision HEENT: Denies: Difficulty Swallowing Cardiovascular: Denies: Chest Pain Respiratory: Reports: Cough. Denies: Shortness of Breath Gastrointestinal: Reports: Diarrhea. Denies: Abdominal Pain, Hematemesis, Hematochezia, Nausea, Melena, Vomiting Genitourinary: Denies: Dysuria Musculoskeletal: Reports: Leg Pain Skin: Reports: Wounds - Left lower extremity Neurological: Denies: Confusion Psychiatric: Denies: Anxiety Hematologic/ Lymphatic: Denies: Easy Bleeding Patient Problems: Active and Suspected Problems Colitis (Acute) - Physical Exam Vitals/I&O's: Vital Signs Temp Pulse Resp BP Pulse Ox 99.8 F H 114 H 14 117/66 98 03/27/20 05:00 03/27/20 05:00 03/27/20 05:00 03/27/20 05:00 03/27/20 05:00 Oxygen Flow Rate (L/min) 2 Oxygen Delivery Method Nasal Cannula Weight: 147 lb 4.301 oz Body Mass Index (BMI) 30.7 Intake and Output for Last 24 Hours 03/25/20 03/26/20 03/27/20 23:59 23:59 23:59 Intake Total 1999 300 / 300 Balance 1999 300 / 300 General: Alert, Oriented x3, Cooperative, No apparent distress HEENT: Atraumatic Lungs: Normal air movement Cardiovascular: Regular rate Abdomen: Soft, Non Tender, Non-Distended Extremities: No clubbing, No cyanosis, No edema Neurological: Cranial nerves II-XII grossly intact Psych/Mental Status: Normal Affect Microbiology Past 72 Hours 03/26/20 16:35 Stool C. difficile DNA Amplification - Final 03/26/20 16:05 Mucosa - Nasopharyngeal Coronavirus COVID-19 PCR - Final Laboratory Results 03/26/20 00:15: MRSA (PCR) Negative 03/26/20 15:30: WBC 25.4 H, RBC 4.56, Hgb 12.9, Hct 39.8, MCV 87.3, MCH 28.3, MCHC 32.4, RDW Std Deviation 44.4 H, RDW Coeff of Naseem 13.9, Plt Count 424, MPV 8.5, Immature Gran % (Auto) 0.600, Neut % (Auto) 91.1 H, Lymph % (Auto) 3.2 L, [place] % (Auto) 4.4, Eos % (Auto) 0.4, Baso % (Auto) 0.3, Absolute Neuts (auto) 23.2 H, Absolute Lymphs (auto) 0.80 L, Nucleated RBC % 0, Differential Comment SCANNED 03/26/20 15:30: Sodium 131 L, Potassium 2.8 L, Chloride 94 L, Carbon Dioxide 26.0, Anion Gap 11, BUN 7, Creatinine 0.64, Estim Creat Clear Calc 52.87, Est GFR (MDRD) Af Amer 118, Est GFR (MDRD) Non-Af 98, BUN/Creatinine Ratio 11.0, Glucose 106, Calcium 8.8, Total Bilirubin 0.60, AST 23, ALT 15, Alkaline Ph osphatase 106, Troponin I < 0.015, Total Protein 7.9, Albumin 2.9 L, Globulin 5.0 H, Albumin/Globulin Ratio 0.6 L 03/26/20 15:30: Lactic Acid 1.6 03/26/20 16:05: COVID-19 ([facility]) Cancelled 03/26/20 16:20: Urine Color Yellow, Urine Clarity Clear, Urine pH 6.0, Ur Specific [place] 1.015, Urine Protein 30 H, Urine Glucose (UA) Normal, Urine Ketones 50 H, Urine Occult Blood 10 H, Urine Nitrite Negative, Urine Bilirubin 1 H, Urine Urobilinogen Normal, Ur Leukocyte Esterase Negative, Urine RBC 0 SEEN, Urine WBC 0 SEEN, Ur Squamous Epith Cells 0 SEEN, Urine Bacteria 0 SEEN, Urine Mucus 1+ 03/27/20 00:10: D-Dimer Quant (PE/DVT) 2.86 H* 03/27/20 00:10: Magnesium 1.6, Ferritin 243, Lactate Dehydrogenase 176, Total Creatine Kinase 203 H, C-React Prot Ext Range 262.00 H, Lipase 12 L 03/27/20 00:10: Procalcitonin 1.54 H 03/27/20 00:10: S.aureus Protein A PCR NEGATIVE, MRSA (PCR) Negative 03/27/20 04:40: WBC 28.8 H, RBC 3.86 L, Hgb 11.0 L, Hct 34.7 L, MCV 89.9, MCH 28.5, MCHC 31.7 L, RDW Std Deviation 45.6 H, RDW Coeff of Naseem 13.8, Plt Count 370, MPV 8.8, Immature Gran % (Auto) 3.400 H, Neut % (Auto) 88.6 H, Lymph % (Auto) 3.2 L, [place] % (Auto) 4.3, Eos % (Auto) 0.2, Baso % (Auto) 0.3, Absolute Neuts (auto) 25.5 H, Absolute Lymphs (auto) 0.93, Nucleated RBC % 0, Differential Comment SCANNED, Atypical Lymphocytes RARE 03/27/20 04:40: Sodium 137, Potassium 3.1 L, Chloride 102, Carbon Dioxide 28.0, Anion Gap 7, BUN 6 L, Creatinine 0.55, Estim Creat Clear Calc 54.41, Est GFR (MDRD) Af Amer 139, Est GFR (MDRD) Non-Af 115, BUN/Creatinine Ratio 10.8, Glucose 102, Calcium 7.9 L, Total Bilirubin 0.30, AST 21, ALT 14, Alkaline Phosphatase 94, Total Protein 6.2 L, Albumin 2.2 L, Globulin 4.0, Albumin/Globulin Ratio 0.6 L Current Medications Acetaminophen (Tylenol) 650 mg PO Q6H PRN PRN PRN Reason: Pain Score 1-10/Temp > 100.7 F Last Admin: 03/27/20 04:35 Dose: 650 mg Documented by: Al Hydroxide/Mg Hydroxide (Mylanta Ii) 30 ml PO Q6H PRN PRN PRN Reason: Gastric Burning Albuterol Sulfate (Ventolin Aerosols) 2.5 mg INHALATION Q2H PRN PRN PRN Reason: Dyspnea, wheezing Aspirin (Ecotrin) 81 mg PO QHS [facility] Last Admin: 03/27/20 00:11 Dose: 81 mg Documented by: Atorvastatin Calcium (Lipitor) 20 mg PO QHS [facility] Last Admin: 03/27/20 00:12 Dose: 20 mg Documented by: Collagenase (Santyl) 1 applic TOPICAL DAILY [facility]; Protocol Dextrose (D50w Syringe) 0 gm IV X1 PRN; Protocol PRN Reason: Hypoglycemia Doxepin HCl (Sinequan) 10 mg PO QHS [facility] Last Admin: 03/27/20 00:13 Dose: 10 mg Documented by: Enoxaparin Sodium (Lovenox) 70 mg SC Q12@1000,2200 [facility] Last Admin: 03/27/20 01:16 Dose: 70 mg Documented by: Glucagon () 1 mg IM .X1 PRN PRN Reason: Hypoglycemia Guaifenesin (Robitussin) 20 ml PO Q4H PRN PRN PRN Reason: COUGH Hydralazine HCl (Apresoline Iv) 10 mg IV Q4H PRN PRN PRN Reason: SBP > 160 Sodium Chloride () 1,000 mls @ 100 mls/hr IV .Q10H [facility] Last Admin: 03/27/20 00:11 Dose: 100 mls/hr Documented by: Meropenem 1 gm/ Sodium (Chloride) 120 mls @ 33 mls/hr IV Q8@0200,1000,1800 [facility] Last Infusion: 03/27/20 05:05 Dose: Infused Documented by: Sodium Chloride () 250 mls @ 15 mls/hr IV .[id number] PRN PRN Reason: Saline Flush Sodium Chloride () 250 mls @ 15 mls/hr IV .[id number] PRN PRN Reason: Additional IVPB Infusion Lactobacillus Acidophilus (Acidophilus) 1 tablet PO BID [facility] Last Admin: 03/27/20 00:11 Dose: 1 tablet Documented by: Levothyroxine Sodium (Synthroid) 137 mcg PO QHS [facility] Last Admin: 03/27/20 00:12 Dose: 137 mcg Documented by: Melatonin (Melatonin) 3 mg PO QHS PRN PRN PRN Reason: INSOMNIA Metoprolol Tartrate (Lopressor (Beta Mehran)) 50 mg PO DAILY [facility] Metoprolol Tartrate (Lopressor (Beta Mehran)) 100 mg PO QHS [facility] Last Admin: 03/27/20 00:12 Dose: 100 mg Documented by: Morphine Sulfate () 2 mg IV Q3H PRN PRN PRN Reason: Pain Score 6-10/10 Nitroglycerin (Nitrostat) 0.4 mg SUBLINGUAL Q5M PRN PRN Reason: CARDIAC/CHEST PAIN Nutritional Formula (Lactose Free) (Ensure Clear) 120 ml PO TIDCM [facility] Ondansetron HCl (Zofran) 4 mg IV Q8H PRN PRN PRN Reason: NAUSEA/VOMITING Oxycodone HCl (Oxyir) 5 mg PO Q4H PRN PRN PRN Reason: Pain Score 4-5/10 Pentoxifylline (Trental) 400 mg PO DAILY [facility] Prochlorperazine Edisylate (Compazine Iv) 5 mg IV Q4H PRN PRN PRN Reason: Breakthrough Nausea/Vomiting Sodium Chloride () 10 - 40 ml IV UD PRN PRN Reason: SALINE FLUSH Last Admin: 03/27/20 04:38 Dose: 10 ml Documented by: Throat Lozenges (Cepacol Sore Throat Lozenge) 1 lozenge MUCOUS MEM Q2H PRN PRN PRN Reason: SORE THROAT Vancomycin HCl () 250 mg PO 0400,1000,1600,2200 [facility] Last Admin: 03/27/20 04:35 Dose: 250 mg Documented by: Assessment/Plan All Active Problems Cellulitis of left leg (Acute) Diarrhea (Acute) Tachycardia (Acute) C. difficile colitis (Resolved) Ulcer of left lower extremity, limited to breakdown of skin (Acute) Colitis (Acute) 69-year-old female with colitis, diarrhea, left lower extremity leg wound 1. Diarrhea/colitis: Patient denies any abdominal pain we will continue to monitor. Patient's C. difficile was negative she previously had C. difficile back in November after having Cipro due to her left lower extremity leg wound. Patient's enteric pathogens are pending. ID consulted currently patient on Vanco and meropenem IV white blood counts up a little bit to 28 from 25. We will continue to monitor no plans for surgery currently. Dr. Rubio will be covering for me starting tomorrow and through weekend. Priya Carrasco M.D. Pager: [phone] [facility] [address] [place] [address], [facility], [address] [place] [address] Office: [phone] Inpatient E&M: 02181 Init Hosp L2
--- NOTE | 2020-03-27 07:35 | PCM.PN.HOSP ---
Patient Problems: Active and Suspected Problems Colitis (Acute) Reason for Visit: Follow-up acute colitis Subjective: Patient is a 69-year-old lady who presented with a 3-day history of diarrhea fever as well as cough Objective: GENERAL: cooperative HEENT: Atraumatic; EYES; Anicteric, Normal Conjunctiva NECK; supple, normal thyroid, RESPIRATORY: Diminished to auscultation CARDIOVASCULAR: Regular S1 S2, GI: soft, normoactive bowel sounds, : No Renal angle tenderness; EXTREMITIES: Bipedal edema MUSCULOSKELETAL: no muscle waisting NEURO: Awake; no lateralizing signs. SKIN: No Rash PSYCH; Flat affect Vitals/I&O's: Vital Signs Temp Pulse Resp BP Pulse Ox 99.8 F H 114 H 14 117/66 98 03/27/20 05:00 03/27/20 05:00 03/27/20 05:00 03/27/20 05:00 03/27/20 05:00 Oxygen Flow Rate (L/min) 2 Oxygen Delivery Method Nasal Cannula Weight: 66.8 kg Body Mass Index (BMI) 30.7 Intake and Output for Last 24 Hours 03/25/20 03/26/20 03/27/20 23:59 23:59 23:59 Intake Total 1999 300 / 300 Balance 1999 300 / 300 Microbiology Past 72 Hours 03/26/20 16:35 Stool C. difficile DNA Amplification - Final 03/26/20 16:05 Mucosa - Nasopharyngeal Coronavirus COVID-19 PCR - Final Laboratory Results 03/26/20 00:15: MRSA (PCR) Negative 03/26/20 15:30: WBC 25.4 H, RBC 4.56, Hgb 12.9, Hct 39.8, MCV 87.3, MCH 28.3, MCHC 32.4, RDW Std Deviation 44.4 H, RDW Coeff of Naseem 13.9, Plt Count 424, MPV 8.5, Immature Gran % (Auto) 0.600, Neut % (Auto) 91.1 H, Lymph % (Auto) 3.2 L, Heard % (Auto) 4.4, Eos % (Auto) 0.4, Baso % (Auto) 0.3, Absolute Neuts (auto) 23.2 H, Absolute Lymphs (auto) 0.80 L, Nucleated RBC % 0, Differential Comment SCANNED 03/26/20 15:30: Sodium 131 L, Potassium 2.8 L, Chloride 94 L, Carbon Dioxide 26.0, Anion Gap 11, BUN 7, Creatinine 0.64, Estim Creat Clear Calc 52.87, Est GFR (MDRD) Af Amer 118, Est GFR (MDRD) Non-Af 98, BUN/Creatinine Ratio 11.0, Glucose 106, Calcium 8.8, Total Bilirubin 0.60, AST 23, ALT 15, Alkaline Phosphatase 106, Troponin I < 0.015, Total Protein 7.9, Albumin 2.9 L, Globulin 5.0 H, Albumin/Globulin Ratio 0.6 L 03/26/20 15:30: Lactic Acid 1.6 03/26/20 16:05: COVID-19 ([facility]) Cancelled 03/26/20 16:20: Urine Color Yellow, Urine Clarity Clear, Urine pH 6.0, Ur Specific Durant 1.015, Urine Protein 30 H, Urine Glucose (UA) Normal, Urine Ketones 50 H, Urine Occult Blood 10 H, Urine Nitrite Negative, Urine Bilirubin 1 H, Urine Urobilinogen Normal, Ur Leukocyte Esterase Negative, Urine RBC 0 SEEN, Urine WBC 0 SEEN, Ur Squamous Epith Cells 0 SEEN, Urine Bacteria 0 SEEN, Urine Mucus 1+ 03/27/20 00:10: D-Dimer Quant (PE/DVT) 2.86 H* 03/27/20 00:10: Magnesium 1.6, Ferritin 243, Lactate Dehydrogenase 176, Total Creatine Kinase 203 H, C-React Prot Ext Range 262.00 H, Lipase 12 L 03/27/20 00:10: Procalcitonin 1.54 H 03/27/20 00:10: S.aureus Protein A PCR NEGATIVE, MRSA (PCR) Negative 03/27/20 04:40: WBC 28.8 H, RBC 3.86 L, Hgb 11.0 L, Hct 34.7 L, MCV 89.9, MCH 28.5, MCHC 31.7 L, RDW Std Deviation 45.6 H, RDW Coeff of Naseem 13.8, Plt Count 370, MPV 8.8, Immature Gran % (Auto) 3.400 H, Neut % (Auto) 88.6 H, Lymph % (Auto) 3.2 L, Heard % (Auto) 4.3, Eos % (Auto) 0.2, Baso % (Auto) 0.3, Absolute Neuts (auto) 25.5 H, Absolute Lymphs (auto) 0.93, Nucleated RBC % 0, Differential Comment SCANNED, Atypical Lymphocytes RARE 03/27/20 04:40: Sodium 137, Potassium 3.1 L, Chloride 102, Carbon Dioxide 28.0, Anion Gap 7, BUN 6 L, Creatinine 0.55, Estim Creat Clear Calc 54.41, Est GFR (MDRD) Af Amer 139, Est GFR (MDRD) Non-Af 115, BUN/Creatinine Ratio 10.8, Glucose 102, Calcium 7.9 L, Total Bilirubin 0.30, AST 21, ALT 14, Alkaline Phosphatase 94, Total Protein 6.2 L, Albumin 2.2 L, Globulin 4.0, Albumin/Globulin Ratio 0.6 L Current Medications Acetaminophen (Tylenol) 650 mg PO Q6H PRN PRN PRN Reason: Pain Score 1-10/Temp > 100.7 F Last Admin: 03/27/20 04:35 Dose: 650 mg Documented by: Al Hydroxide/Mg Hydroxide (Mylanta Ii) 30 ml PO Q6H PRN PRN PRN Reason: Gastric Burning Albuterol Sulfate (Ventolin Aerosols) 2.5 mg INHALATION Q2H PRN PRN PRN Reason: Dyspnea, wheezing Aspirin (Ecotrin) 81 mg PO QHS [facility] Last Admin: 03/27/20 00:11 Dose: 81 mg Documented by: Atorvastatin Calcium (Lipitor) 20 mg PO QHS [facility] Last Admin: 03/27/20 00:12 Dose: 20 mg Documented by: Collagenase (Santyl) 1 applic TOPICAL DAILY [facility]; Protocol Dextrose (D50w Syringe) 0 gm IV X1 PRN; Protocol PRN Reason: Hypoglycemia Doxepin HCl (Sinequan) 10 mg PO QHS [facility] Last Admin: 03/27/20 00:13 Dose: 10 mg Documented by: Enoxaparin Sodium (Lovenox) 70 mg SC Q12@1000,2200 [facility] Last Admin: 03/27/20 01:16 Dose: 70 mg Documented by: Glucagon () 1 mg IM .X1 PRN PRN Reason: Hypoglycemia Guaifenesin (Robitussin) 20 ml PO Q4H PRN PRN PRN Reason: COUGH Hydralazine HCl (Apresoline Iv) 10 mg IV Q4H PRN PRN PRN Reason: SBP > 160 Sodium Chloride () 1,000 mls @ 100 mls/hr IV .Q10H [facility] Last Admin: 03/27/20 00:11 Dose: 100 mls/hr Documented by: Meropenem 1 gm/ Sodium (Chloride) 120 mls @ 33 mls/hr IV Q8@0200,1000,1800 [facility] Last Infusion: 03/27/20 05:05 Dose: Infused Documented by: Sodium Chloride () 250 mls @ 15 mls/hr IV .[id number] PRN PRN Reason: Saline Flush Sodium Chloride () 250 mls @ 15 mls/hr IV .[id number] PRN PRN Reason: Additional IVPB Infusion Lactobacillus Acidophilus (Acidophilus) 1 tablet PO BID [facility] Last Admin: 03/27/20 00:11 Dose: 1 tablet Documented by: Levothyroxine Sodium (Synthroid) 137 mcg PO QHS [facility] Last Admin: 03/27/20 00:12 Dose: 137 mcg Documented by: Melatonin (Melatonin) 3 mg PO QHS PRN PRN PRN Reason: INSOMNIA Metoprolol Tartrate (Lopressor (Beta Mehran)) 50 mg PO DAILY [facility] Metoprolol Tartrate (Lopressor (Beta Mehran)) 100 mg PO QHS [facility] Last Admin: 03/27/20 00:12 Dose: 100 mg Documented by: Morphine Sulfate () 2 mg IV Q3H PRN PRN PRN Reason: Pain Score 6-10/10 Nitroglycerin (Nitrostat) 0.4 mg SUBLINGUAL Q5M PRN PRN Reason: CARDIAC/CHEST PAIN Nutritional Formula (Lactose Free) (Ensure Clear) 120 ml PO TIDCM [facility] Ondansetron HCl (Zofran) 4 mg IV Q8H PRN PRN PRN Reason: NAUSEA/VOMITING Oxycodone HCl (Oxyir) 5 mg PO Q4H PRN PRN PRN Reason: Pain Score 4-5/10 Pentoxifylline (Trental) 400 mg PO DAILY [facility] Prochlorperazine Edisylate (Compazine Iv) 5 mg IV Q4H PRN PRN PRN Reason: Breakthrough Nausea/Vomiting Sodium Chloride () 10 - 40 ml IV UD PRN PRN Reason: SALINE FLUSH Last Admin: 03/27/20 04:38 Dose: 10 ml Documented by: Throat Lozenges (Cepacol Sore Throat Lozenge) 1 lozenge MUCOUS MEM Q2H PRN PRN PRN Reason: SORE THROAT Vancomycin HCl () 250 mg PO 0400,1000,1600,2200 [facility] Last Admin: 03/27/20 04:35 Dose: 250 mg Documented by: STROKE Vital Signs/Narrative: Vital Signs Temp Pulse Resp BP Pulse Ox 03/27/20 05:00 99.8 F H 114 H 14 117/66 98 Medical Necessity - Tobacco Use Smoking Status: Former smoker - Patient quit remotely but cannot give exact year. Tobacco Use: Non-smoker Assessment/Plan All Active Problems Cellulitis of left leg (Acute) Diarrhea (Acute) Tachycardia (Acute) C. difficile colitis (Resolved) Ulcer of left lower extremity, limited to breakdown of skin (Acute) Colitis (Acute) Patient is a 69-year-old lady who presented with a 3-day history of diarrhea fever as well as cough 1. Acute colitis ?CT of the abdomen obtained demonstrated Significant colitis pattern most significant within the descending colon, sigmoid colon and rectum with some involvement of the distal transverse colon. Patient initially C. difficile test came back negative however has recent diagnosis of C. difficile repeat testing was therefore ordered 2. Suspected viral syndrome Patient was placed under droplet and contact isolation while COVID 19 being ruled out 3. Left lower extremity cellulitis -Patient has history of chronic left leg ulcer, with recent Pseudomonas of cultures. Patient is on meropenem consult was placed infectious disease on admission 4. Hypokalemia ?Corrected per protocol 5. Hyponatremia ?On saline with monitoring of electrolytes 6. History of C. difficile colitis ?Recurrent C. difficile colitis being ruled out 7. Hypothyroidism ~patient is on levothyroxine home dose continued 8. Essential hypertension ~ blood pressure controlled, home medications continued with dose adjustment as needed 9. Dyslipidemia ~patient is on statin therapy, continued at home dose 10. DVT prophylaxis ~ on enoxaparin Active Medications Acetaminophen (Tylenol) 650 mg PO Q6H PRN PRN PRN Reason: Pain Score 1-10/Temp > 100.7 F Last Admin: 03/27/20 04:35 Dose: 650 mg Documented by: Al Hydroxide/Mg Hydroxide (Mylanta Ii) 30 ml PO Q6H PRN PRN PRN Reason: Gastric Burning Albuterol Sulfate (Ventolin Aerosols) 2.5 mg INHALATION Q2H PRN PRN PRN Reason: Dyspnea, wheezing Aspirin (Ecotrin) 81 mg PO QHS [facility] Last Admin: 03/27/20 00:11 Dose: 81 mg Documented by: Atorvastatin Calcium (Lipitor) 20 mg PO QHS [facility] Last Admin: 03/27/20 00:12 Dose: 20 mg Documented by: Collagenase (Santyl) 1 applic TOPICAL DAILY [facility]; Protocol Dextrose (D50w Syringe) 0 gm IV X1 PRN; Protocol PRN Reason: Hypoglycemia Doxepin HCl (Sinequan) 10 mg PO QHS [facility] Last Admin: 03/27/20 00:13 Dose: 10 mg Documented by: Enoxaparin Sodium (Lovenox) 70 mg SC Q12@1000,2200 [facility] Last Admin: 03/27/20 01:16 Dose: 70 mg Documented by: Glucagon () 1 mg IM .X1 PRN PRN Reason: Hypoglycemia Guaifenesin (Robitussin) 20 ml PO Q4H PRN PRN PRN Reason: COUGH Hydralazine HCl (Apresoline Iv) 10 mg IV Q4H PRN PRN PRN Reason: SBP > 160 Sodium Chloride () 1,000 mls @ 100 mls/hr IV .Q10H [facility] Last Admin: 03/27/20 00:11 Dose: 100 mls/hr Documented by: Meropenem 1 gm/ Sodium (Chloride) 120 mls @ 33 mls/hr IV Q8@0200,1000,1800 [facility] Last Infusion: 03/27/20 05:05 Dose: Infused Documented by: Sodium Chloride () 250 mls @ 15 mls/hr IV .[id number] PRN PRN Reason: Saline Flush Sodium Chloride () 250 mls @ 15 mls/hr IV .[id number] PRN PRN Reason: Additional IVPB Infusion Lactobacillus Acidophilus (Acidophilus) 1 tablet PO BID [facility] Last Admin: 03/27/20 00:11 Dose: 1 tablet Documented by: Levothyroxine Sodium (Synthroid) 137 mcg PO QHS [facility] Last Admin: 03/27/20 00:12 Dose: 137 mcg Documented by: Melatonin (Melatonin) 3 mg PO QHS PRN PRN PRN Reason: INSOMNIA Metoprolol Tartrate (Lopressor (Beta Mehran)) 50 mg PO DAILY [facility] Metoprolol Tartrate (Lopressor (Beta Mehran)) 100 mg PO QHS [facility] Last Admin: 03/27/20 00:12 Dose: 100 mg Documented by: Morphine Sulfate () 2 mg IV Q3H PRN PRN PRN Reason: Pain Score 6-10/10 Nitroglycerin (Nitrostat) 0.4 mg SUBLINGUAL Q5M PRN PRN Reason: CARDIAC/CHEST PAIN Nutritional Formula (Lactose Free) (Ensure Clear) 120 ml PO 4X/DAY [facility] Ondansetron HCl (Zofran) 4 mg IV Q8H PRN PRN PRN Reason: NAUSEA/VOMITING Oxycodone HCl (Oxyir) 5 mg PO Q4H PRN PRN PRN Reason: Pain Score 4-5/10 Pentoxifylline (Trental) 400 mg PO DAILY [facility] Prochlorperazine Edisylate (Compazine Iv) 5 mg IV Q4H PRN PRN PRN Reason: Breakthrough Nausea/Vomiting Sodium Chloride () 10 - 40 ml IV UD PRN PRN Reason: SALINE FLUSH Last Admin: 03/27/20 04:38 Dose: 10 ml Documented by: Throat Lozenges (Cepacol Sore Throat Lozenge) 1 lozenge MUCOUS MEM Q2H PRN PRN PRN Reason: SORE THROAT Vancomycin HCl () 250 mg PO 0400,1000,1600,2200 [facility] Last Admin: 03/27/20 04:35 Dose: 250 mg Documented by: Clinical Impression(s) from Imaging Studies Chest X-Ray 03/26/20 15:55 IMPRESSION: No acute process, stable COPD changes, stable minimal pulmonary scarring Electronically Signed: Pola Degroot at 16:25 EDT Tel , Service support , Abdomen/Pelvis CT 03/26/20 16:12 IMPRESSION: Significant colitis pattern most significant within the descending colon, sigmoid colon and rectum with some involvement of the distal transverse colon. Findings are suspicious for infectious/inflammatory etiologies including ulcerative colitis. Pseudomembranous colitis also cannot be excluded. Ischemia is in the differential diagnosis. Moderate bladder distention Small hiatal hernia S-shaped thoracolumbar spinal scoliosis with osteophyte formation. The significant atrophy in the anterior thigh muscles. There are significant degenerative changes left hip Mild gallbladder distention, punctate gallstone Electronically Signed: Pola Degroot, at 19:11 EDT Tel , Service support , Tibia/Fibula X-Ray 03/26/20 17:28 IMPRESSION: Soft tissue edema and soft tissue ulceration likely cellulitis Electronically Signed: Pola Degroot, at 17:59 EDT Tel , Service support , Inpatient E&M: [id number] [facility]s [facility] L[facility]
--- NOTE | 2020-03-27 08:26 | CON.PCM_ITS ---
Problem List (1) Ulcer of left lower extremity with fat layer exposed Status: Chronic (2) Delayed wound healing Status: Chronic (3) Venous insufficiency Status: Chronic Comment: left Greater saphenous vein (4) Other specified peripheral vascular diseases Status: Chronic Comment: bilateral lower extremity (5) Left leg pain Status: Chronic (6) Colonization status Status: Chronic Reason for Consult Date of Consultation: 03/27/20 Reason for Consultation: chronic leg ulcer History of Present Illness: The patient is a 69 year old F with multiple comorbidities was seen bedside this morning for chronic left leg ulcer. She had Pseudomonas colonization identified last week and has been treated with topical Dakin's solution. She was admitted due to 3 days of diarrhea and chronic cough. She is currently being treated for colitis and was started on vancomycin and meropenem. She relates her legs actually looking better and she has resolution of redness. Past Medical History Past Medical History (Chronic Problems): Chronic Problems Ulcer of left lower extremity with fat layer exposed (Chronic) Delayed wound healing (Chronic) Venous insufficiency (Chronic) left Greater saphenous vein Other specified peripheral vascular diseases (Chronic) bilateral lower extremity Left leg pain (Chronic) Leg edema, left (Chronic) Colonization status (Chronic) MVP (mitral valve prolapse) (Chronic) Thyroid disorder (Chronic) HTN (hypertension) (Chronic) HLD (hyperlipidemia) (Chronic) Former tobacco use (Chronic) Sinus tachycardia (Chronic) Allergies naproxen [From Naprosyn] Allergy (Verified 03/26/20 15:14) Rash Penicillins [PCN] Allergy (Verified 03/26/20 15:14) Rash amoxicillin Adverse Reaction (Verified 03/26/20 15:14) Rash cephalexin [From Keflex] Adverse Reaction (Verified 03/26/20 15:14) Rash clotrimazole [From Lotrimin] Adverse Reaction (Verified 03/26/20 15:14) Rash diphenhydramine [From Benadryl] Adverse Reaction (Verified 03/26/20 15:14) Rash griseofulvin Adverse Reaction (Verified 03/26/20 15:14) Rash ibuprofen [From Motrin] Adverse Reaction (Verified 03/26/20 15:14) Rash miconazole [From Monistat 1 Combo Pack] Adverse Reaction (Verified 03/26/20 15:14) Rash propranolol [From Inderal LA] Adverse Reaction (Verified 03/26/20 15:14) Rash rofecoxib [From Vioxx] Adverse Reaction (Verified 03/26/20 15:14) Rash Sulfa (Sulfonamide Antibiotics) Adverse Reaction (Verified 03/26/20 15:14) Rash Home Medications: Ambulatory Orders Medication Instructions Recorded Aspirin E.C. [Ecotrin] 81 mg PO QHS 11/28/19 Doxepin HCl [Sinequan] 10 mg PO QHS 11/28/19 Furosemide [Lasix] 40 mg PO DAILY PRN PRN 11/28/19 Levothyroxine [Synthroid] 137 mcg PO QHS 11/28/19 Pentoxifylline [Trental] 400 mg PO DAILY 11/28/19 Simvastatin [Zocor] 40 mg PO QHS 11/28/19 Collagenase [Santyl] 1 applic TOPICAL DAILY 03/26/20 Lactobacillus Acidophilus 2 tab PO BID 03/26/20 [Acidophilus] Metoprolol Tartrate 50 mg PO DAILY 03/26/20 Metoprolol Tartrate [Lopressor 100 mg PO QHS 03/26/20 (Beta Mehran)] Vancomycin [Vancocin] 250 mg PO Q6H 03/26/20 Surgical History: - - Bilateral lower extremity surgery for polio in her youth, bilateral tubal ligation. 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 Tobacco Use: Non-smoker Alcohol: None Drugs: None - *Family History Maternal History Items: Heart Disease Paternal History Items: Heart Disease Review of Systems Constitutional: Denies: Chills, Fever Cardiovascular: Reports: Edema Respiratory: Reports: Cough Gastrointestinal: Reports: Diarrhea, Nausea Musculoskeletal: Reports: Leg Pain, - - Weakness left lower extremity chronic secondary to polio syndrome Skin: Reports: Skin Changes, Wounds Patient Problems: Active and Suspected Problems Colitis (Acute) - Physical Exam Vitals/I&O's: Vital Signs Temp Pulse Resp BP Pulse Ox 99.8 F H 105 H 14 117/66 98 03/27/20 05:00 03/27/20 07:24 03/27/20 05:00 03/27/20 05:00 03/27/20 05:00 Oxygen Flow Rate (L/min) 2 Oxygen Delivery Method Nasal Cannula Weight: 66.8 kg Body Mass Index (BMI) 30.7 Intake and Output for Last 24 Hours 03/25/20 03/26/20 03/27/20 23:59 23:59 23:59 Intake Total 1999 300 / 300 Balance 1999 300 / 300 General: Alert, Oriented x3, Cooperative HEENT: Atraumatic Extremities: No cyanosis, Capillary Refill Less than 3 Seconds, No Calf Tenderness, Diminished Peripheral Pulses, Edema Skin: Ulcer/ Wound - No purulence, erythema, streaking, odor. There is no nec rosis or adjacent bogginess or fluctuance. There is actually epithelialization progression noted to the prior anterior medial leg and lateral leg ulcer sites and these appear less macerated with decreased weeping. The main ulcer site to the anterior lateral leg is granular and fibrous tissue and minimal well adhered eschar noted. There is no visualized or probe to muscle or bone. Likely fascia l compartment is partially visualized and is consistent with prior exams. Her adjacent skin is hairless and atrophic with some hyperpigmentation Musculoskeletal: No Tenderness to Palpation of Joints or Extremities, Muscle Wasting Neurological: Sensory exam intact to light touch and pain, - Psych/Mental Status: Normal Affect, Appropriate Microbiology Past 72 Hours 03/26/20 16:35 Stool C. difficile DNA Amplification - Final 03/26/20 16:05 Mucosa - Nasopharyngeal Coronavirus COVID-19 PCR - Final Laboratory Results 03/26/20 00:15: MRSA (PCR) Negative 03/26/20 15:30: WBC 25.4 H, RBC 4.56, Hgb 12.9, Hct 39.8, MCV 87.3, MCH 28.3, MCHC 32.4, RDW Std Deviation 44.4 H, RDW Coeff of Naseem 13.9, Plt Count 424, MPV 8.5, Immature Gran % (Auto) 0.600, Neut % (Auto) 91.1 H, Lymph % (Auto) 3.2 L, [place] % (Auto) 4.4, Eos % (Auto) 0.4, Baso % (Auto) 0.3, Absolute Neuts (auto) 23.2 H, Absolute Lymphs (auto) 0.80 L, Nucleated RBC % 0, Differential Comment SCANNED 03/26/20 15:30: Sodium 131 L, Potassium 2.8 L, Chloride 94 L, Carbon Dioxide 26.0, Anion Gap 11, BUN 7, Creatinine 0.64, Estim Creat Clear Calc 52.87, Est GFR (MDRD) Af Amer 118, Est GFR (MDRD) Non-Af 98, BUN/Creatinine Ratio 11.0, Glucose 106, Calcium 8.8, Total Bilirubin 0.60, AST 23, ALT 15, Alkaline Phosphatase 106, Troponin I < 0.015, Total Protein 7.9, Albumin 2.9 L, Globulin 5.0 H, Albumin/Globulin Ratio 0.6 L 03/26/20 15:30: Lactic Acid 1.6 03/26/20 16:05: COVID-19 ([facility]) Cancelled 03/26/20 16:20: Urine Color Yellow, Urine Clarity Clear, Urine pH 6.0, Ur Specific [place] 1.015, Urine Protein 30 H, Urine Glucose (UA) Normal, Urine Ketones 50 H, Urine Occult Blood 10 H, Urine Nitrite Negative, Urine Bilirubin 1 H, Urine Urobilinogen Normal, Ur Leukocyte Esterase Negative, Urine RBC 0 SEEN, Urine WBC 0 SEEN, Ur Squamous Epith Cells 0 SEEN, Urine Bacteria 0 SEEN, Urine Mucus 1+ 03/27/20 00:10: D-Dimer Quant (PE/DVT) 2.86 H* 03/27/20 00:10: Magnesium 1.6, Ferritin 243, Lactate Dehydrogenase 176, Total Creatine Kinase 203 H, C-React Prot Ext Range 262.00 H, Lipase 12 L 03/27/20 00:10: Procalcitonin 1.54 H 03/27/20 00:10: S.aureus Protein A PCR NEGATIVE, MRSA (PCR) Negative 03/27/20 04:40: WBC 28.8 H, RBC 3.86 L, Hgb 11.0 L, Hct 34.7 L, MCV 89.9, MCH 28.5, MCHC 31.7 L, RDW Std Deviation 45.6 H, RDW Coeff of Naseem 13.8, Plt Count 370, MPV 8.8, Immature Gran % (Auto) 3.400 H, Neut % (Auto) 88.6 H, Lymph % (Auto) 3.2 L, Harper % (Auto) 4.3, Eos % (Auto) 0.2, Baso % (Auto) 0.3, Absolute Neuts (auto) 25.5 H, Absolute Lymphs (auto) 0.93, Nucleated RBC % 0, Differential Comment SCANNED, Atypical Lymphocytes RARE 03/27/20 04:40: Sodium 137, Potassium 3.1 L, Chloride 102, Carbon Dioxide 28.0, Anion Gap 7, BUN 6 L, Creatinine 0.55, Estim Creat Clear Calc 54.41, Est GFR (MDRD) Af Amer 139, Est GFR (MDRD) Non-Af 115, BUN/Creatinine Ratio 10.8, Glucose 102, Calcium 7.9 L, Total Bilirubin 0.30, AST 21, ALT 14, Alkaline Phosphatase 94, Total Protein 6.2 L, Albumin 2.2 L, Globulin 4.0, Albumin/Globulin Ratio 0.6 L Current Medications Acetaminophen (Tylenol) 650 mg PO Q6H PRN PRN PRN Reason: Pain Score 1-10/Temp > 100.7 F Last Admin: 03/27/20 04:35 Dose: 650 mg Documented by: Al Hydroxide/Mg Hydroxide (Mylanta Ii) 30 ml PO Q6H PRN PRN PRN Reason: Gastric Burning Albuterol Sulfate (Ventolin Aerosols) 2.5 mg INHALATION Q2H PRN PRN PRN Reason: Dyspnea, wheezing Aspirin (Ecotrin) 81 mg PO QHS [facility] Last Admin: 03/27/20 00:11 Dose: 81 mg Documented by: Atorvastatin Calcium (Lipitor) 20 mg PO QHS [facility] Last Admin: 03/27/20 00:12 Dose: 20 mg Documented by: Collagenase (Santyl) 1 applic TOPICAL DAILY [facility]; Protocol Dextrose (D50w Syringe) 0 gm IV X1 PRN; Protocol PRN Reason: Hypoglycemia Doxepin HCl (Sinequan) 10 mg PO QHS [facility] Last Admin: 03/27/20 00:13 Dose: 10 mg Documented by: Enoxaparin Sodium (Lovenox) 70 mg SC Q12@1000,2200 [facility] Last Admin: 03/27/20 01:16 Dose: 70 mg Documented by: Glucagon () 1 mg IM .X1 PRN PRN Reason: Hypoglycemia Guaifenesin (Robitussin) 20 ml PO Q4H PRN PRN PRN Reason: COUGH Hydralazine HCl (Apresoline Iv) 10 mg IV Q4H PRN PRN PRN Reason: SBP > 160 Sodium Chloride () 1,000 mls @ 100 mls/hr IV .Q10H [facility] Last Admin: 03/27/20 00:11 Dose: 100 mls/hr Documented by: Meropenem 1 gm/ Sodium (Chloride) 120 mls @ 33 mls/hr IV Q8@0200,1000,1800 [facility] Last Infusion: 03/27/20 05:05 Dose: Infused Documented by: Sodium Chloride () 250 mls @ 15 mls/hr IV .[id number] PRN PRN Reason: Saline Flush Sodium Chloride () 250 mls @ 15 mls/hr IV .[id number] PRN PRN Reason: Additional IVPB Infusion Lactobacillus Acidophilus (Acidophilus) 1 tablet PO BID [facility] Last Admin: 03/27/20 00:11 Dose: 1 tablet Documented by: Levothyroxine Sodium (Synthroid) 137 mcg PO QHS [facility] Last Admin: 03/27/20 00:12 Dose: 137 mcg Documented by: Melatonin (Melatonin) 3 mg PO QHS PRN PRN PRN Reason: INSOMNIA Metoprolol Tartrate (Lopressor (Beta Mehran)) 50 mg PO DAILY [facility] Metoprolol Tartrate (Lopressor (Beta Mehran)) 100 mg PO QHS [facility] Last Admin: 03/27/20 00:12 Dose: 100 mg Documented by: Morphine Sulfate () 2 mg IV Q3H PRN PRN PRN Reason: Pain Score 6-10/10 Nitroglycerin (Nitrostat) 0.4 mg SUBLINGUAL Q5M PRN PRN Reason: CARDIAC/CHEST PAIN Nutritional Formula (Lactose Free) (Ensure Clear) 120 ml PO TIDCM [facility] Ondansetron HCl (Zofran) 4 mg IV Q8H PRN PRN PRN Reason: NAUSEA/VOMITING Oxycodone HCl (Oxyir) 5 mg PO Q4H PRN PRN PRN Reason: Pain Score 4-5/10 Pentoxifylline (Trental) 400 mg PO DAILY [facility] Prochlorperazine Edisylate (Compazine Iv) 5 mg IV Q4H PRN PRN PRN Reason: Breakthrough Nausea/Vomiting Sodium Chloride () 10 - 40 ml IV UD PRN PRN Reason: SALINE FLUSH Last Admin: 03/27/20 04:38 Dose: 10 ml Documented by: Throat Lozenges (Cepacol Sore Throat Lozenge) 1 lozenge MUCOUS MEM Q2H PRN PRN PRN Reason: SORE THROAT Vancomycin HCl () 250 mg PO 0400,1000,1600,2200 [facility] Last Admin: 03/27/20 04:35 Dose: 250 mg Documented by: Assessment/Plan All Active Problems Cellulitis of left leg (Acute) Diarrhea (Acute) Tachycardia (Acute) C. difficile colitis (Resolved) Ulcer of left lower extremity, limited to breakdown of skin (Acute) Colitis (Acute) Chronic left leg ulcer, stabilized with resolving Pseudomonas contamination Lower extremity edema Peripheral vascular disease Acute colitis /diarrhea I reviewed and discussed her case and evaluated her ulcer site today. It does not appear that her leg is infected. Her leukocytosis is noted and is likely secondary to her colitis. Her leg x-rays were reviewed and did not demonstrate any soft tissue emphysema, fracture, dislocation, osteomyelitis progression or foreign body. Thank you for the consultation. I recommend changing the dressing daily with Santyl and overlying Adaptic with additional Aquaphor or Vaseline applied to the peter-ulcer site. I recommend cleaning this ulcer with antibacterial soap and water daily. To continue to keep pressure off of this ulcer site. To elevate and continue with overlying Candelario wrap to maintain edema management. She has an outpatient follow-up appointment already scheduled with Dr. Morel for peripheral vascular disease. Medical management per primary and surgical team is noted. I will continue to follow her weekly while in-house. Please not hesitate to call if you have any questions. Abby Cooper DPM, FACFAS [facility] [phone]
[2020-03-27] MEDS: Collagenase 30gm Tube 1 APPLIC TOPICAL (11:14)
[2020-03-27] MEDS: Metoprolol Tartrate 50 MG Tablet PO (11:15)
[2020-03-27] MEDS: Pentoxifylline 400 MG Tablet PO (11:16)
--- NOTE | 2020-03-27 11:36 | CASEMGMT ---
RN CM Assessment Note Presentation: Colitis, cellulitis of LLE, Intro role of CM and purpose of RN CM assessment to daughter Tasia. Pt unable to participate @ this time. Daughter lives nearby was involved with previous admissions. Demographics, PCP and Pharmacy verified. Per daughter, pt lives with her and assists with his care. Daughter helps make meals, shopping, assists with showering. Daughter has been driving to [facility] appointments. Updated that Dr. Cooper will see pt in hospital. Per daughter, she anticipates pt will request to return home and would consider HHC if needed. PCP: Dr. Boo Saunders Specialists: Dr. Cooper, Wound Center Preferred Pharmacy: [facility] Insurance: [facility] Prescription Benefit: yes LNOK : , Farhan Nava Living Arrangements: Lives with in one story home, 3 steps to enter. Transportation: pt able to drive short distances, but daughter drives if neded. DME: shower seat, rails/grab bars, hand held shower, walker HHC: pt goes to wound clinic for LLE wound. Had home health briefly after dc from SNF, daughter not sure of name. SNF: [facility] Patient DC goals: Home on dc. DC PLAN: anticipate home, PT/OT evaluations pending. RN CM will continue to follow and assist with any dc needs. Dylan FUENTES RN ACM
--- NOTE | 2020-03-27 12:16 | NURSING ---
wound photo: left montes de oca
--- NOTE | 2020-03-27 12:17 | NURSING ---
wound photo: left medial [place]
--- NOTE | 2020-03-27 16:56 | CON.PCM_ITS ---
Problem List (1) Colitis Status: Acute Reason for Consult: colitis Consulted by: Dr. Rodas History of Present Illness: The patient is a 69 year old F with h/o cdiff in November, treated with po vanc, presented yesterday to ED with 3-4 days of diarrhea, not feeling well. Was going 5-6 times a day, no blood in stool, no fever, some mild diffuse abd pain. No recent abx. Called PCP, started po vanc on evening of 03/24 without any improvement. No sick contacts, no changes in taste/smell, no headache, no aches, no dyspnea. Has some chronic cough. Came to ED, CT showed diffuse colitis. Fever to 102.3. Admitted on po vanc and yaritza. Surgery consulted, feeling about the same today. Also follows at wound center for LLE ulcer, has been stable; recent cx with PsA. Full ROS performed and neg except as noted above. - Medical History Past Medical History (Chronic Problems): Chronic Problems Ulcer of left lower extremity with fat layer exposed (Chronic) Delayed wound healing (Chronic) Venous insufficiency (Chronic) left Greater saphenous vein Other specified peripheral vascular diseases (Chronic) bilateral lower extremity Left leg pain (Chronic) Leg edema, left (Chronic) Colonization status (Chronic) MVP (mitral valve prolapse) (Chronic) Thyroid disorder (Chronic) HTN (hypertension) (Chronic) HLD (hyperlipidemia) (Chronic) Former tobacco use (Chronic) Sinus tachycardia (Chronic) Allergies/Adverse Reactions: Allergies naproxen [From Naprosyn] Allergy (Verified 03/26/20 15:14) Rash Penicillins [PCN] Allergy (Verified 03/26/20 15:14) Rash amoxicillin Adverse Reaction (Verified 03/26/20 15:14) Rash cephalexin [From Keflex] Adverse Reaction (Verified 03/26/20 15:14) Rash clotrimazole [From Lotrimin] Adverse Reaction (Verified 03/26/20 15:14) Rash diphenhydramine [From Benadryl] Adverse Reaction (Verified 03/26/20 15:14) Rash griseofulvin Adverse Reaction (Verified 03/26/20 15:14) Rash ibuprofen [From Motrin] Adverse Reaction (Verified 03/26/20 15:14) Rash miconazole [From Monistat 1 Combo Pack] Adverse Reaction (Verified 03/26/20 15:14) Rash propranolol [From Inderal LA] Adverse Reaction (Verified 03/26/20 15:14) Rash rofecoxib [From Vioxx] Adverse Reaction (Verified 03/26/20 15:14) Rash Sulfa (Sulfonamide Antibiotics) Adverse Reaction (Verified 03/26/20 15:14) Rash Home Medications: Ambulatory Orders Medication Instructions Recorded Aspirin E.C. [Ecotrin] 81 mg PO QHS 11/28/19 Doxepin HCl [Sinequan] 10 mg PO QHS 11/28/19 Furosemide [Lasix] 40 mg PO DAILY PRN PRN 11/28/19 Levothyroxine [Synthroid] 137 mcg PO QHS 11/28/19 Pentoxifylline [Trental] 400 mg PO DAILY 11/28/19 Simvastatin [Zocor] 40 mg PO QHS 11/28/19 Collagenase [Santyl] 1 applic TOPICAL DAILY 03/26/20 Lactobacillus Acidophilus 2 tab PO BID 03/26/20 [Acidophilus] Metoprolol Tartrate 50 mg PO DAILY 03/26/20 Metoprolol Tartrate [Lopressor 100 mg PO QHS 03/26/20 (Beta Mehran)] Vancomycin [Vancocin] 250 mg PO Q6H 03/26/20 - Social History SMOKING STATUS:: Former smoker Vital Signs Temp Pulse Resp BP Pulse Ox 98.1 F 108 H 22 H 111/53 L 97 03/27/20 12:00 03/27/20 15:12 03/27/20 12:00 03/27/20 12:00 03/27/20 12:49 Oxygen Flow Rate (L/min) 2 Oxygen Delivery Method Room Air Weight: 66.8 kg Body Mass Index (BMI) 30.7 Microbiology Past 72 Hours 03/27/20 00:15 Gram Stain - Final Wound - Leg, Left 03/26/20 16:35 Enteric Bacteriology - Final Stool 03/26/20 16:35 C. difficile DNA Amplification - Final Stool 03/26/20 16:05 Coronavirus COVID-19 PCR - Final Mucosa - Nasopharyngeal Laboratory Tests Past 24 Hrs 03/26/20 03/26/20 03/27/20 00:15 16:05 00:10 WBC RBC Hgb Hct MCV MCH MCHC RDW Std Deviation RDW Coeff of Naseem Plt Count MPV Immature Gran % (Auto) Neut % (Auto) Lymph % (Auto) [place] % (Auto) Eos % (Auto) Baso % (Auto) Absolute Neuts (auto) Absolute Lymphs (auto) Nucleated RBC % Differential Comment Atypical Lymphocytes D-Dimer Quant (PE/DVT) 2.86 H* Sodium Potassium Chloride Carbon Dioxide Anion Gap BUN Creatinine Estim Creat Clear Calc Est GFR (MDRD) Af Amer Est GFR (MDRD) Non-Af BUN/Creatinine Ratio Glucose Calcium Magnesium Ferritin Total Bilirubin AST ALT Alkaline Phosphatase Lactate Dehydrogenase Total Creatine Kinase C-React Prot Ext Range Total Protein Albumin Globulin Albumin/Globulin Ratio Lipase Procalcitonin COVID-19 ([facility]) Cancelled S.aureus Protein A PCR MRSA (PCR) Negative 03/27/20 03/27/20 03/27/20 00:10 00:10 00:10 WBC RBC Hgb Hct MCV MCH MCHC RDW Std Deviation RDW Coeff of Naseem Plt Count MPV Immature Gran % (Auto) Neut % (Auto) Lymph % (Auto) [place] % (Auto) Eos % (Auto) Baso % (Auto) Absolute Neuts (auto) Absolute Lymphs (auto) Nucleated RBC % Differential Comment Atypical Lymphocytes D-Dimer Quant (PE/DVT) Sodium Potassium Chloride Carbon Dioxide Anion Gap BUN Creatinine Estim Creat Clear Calc Est GFR (MDRD) Af Amer Est GFR (MDRD) Non-Af BUN/Creatinine Ratio Glucose Calcium Magnesium 1.6 Ferritin 243 Total Bilirubin AST ALT Alkaline Phosphatase Lactate Dehydrogenase 176 Total Creatine Kinase 203 H C-React Prot Ext Range 262.00 H Total Protein Albumin Globulin Albumin/Globulin Ratio Lipase 12 L Procalcitonin 1.54 H COVID-19 ([facility]) S.aureus Protein A PCR NEGATIVE MRSA (PCR) Negative 03/27/20 03/27/20 04:40 04:40 WBC 28.8 H RBC 3.86 L Hgb 11.0 L Hct 34.7 L MCV 89.9 MCH 28.5 MCHC 31.7 L RDW Std Deviation 45.6 H RDW Coeff of Naseem 13.8 Plt Count 370 MPV 8.8 Immature Gran % (Auto) 3.400 H Neut % (Auto) 88.6 H Lymph % (Auto) 3.2 L [place] % (Auto) 4.3 Eos % (Auto) 0.2 Baso % (Auto) 0.3 Absolute Neuts (auto) 25.5 H Absolute Lymphs (auto) 0.93 Nucleated RBC % 0 Differential Comment SCANNED Atypical Lymphocytes RARE D-Dimer Quant (PE/DVT) Sodium 137 Potassium 3.1 L Chloride 102 Carbon Dioxide 28.0 Anion Gap 7 BUN 6 L Creatinine 0.55 Estim Creat Clear Calc 54.41 Est GFR (MDRD) Af Amer 139 Est GFR (MDRD) Non-Af 115 BUN/Creatinine Ratio 10.8 Glucose 102 Calcium 7.9 L Magnesium Ferritin Total Bilirubin 0.30 AST 21 ALT 14 Alkaline Phosphatase 94 Lactate Dehydrogenase Total Creatine Kinase C-React Prot Ext Range Total Protein 6.2 L Albumin 2.2 L Globulin 4.0 Albumin/Globulin Ratio 0.6 L Lipase Procalcitonin COVID-19 ([facility]) S.aureus Protein A PCR MRSA (PCR) - Other Studies Radiology: [] reviewed Other Studies: [] Route of nutrition/ use of supplements: [] Nutritional Intake: [] IV Site: [] [place] Catheter: [] - Physical Exam General: Alert, Oriented x3, Cooperative, No apparent distress HEENT: Atraumatic, PERRLA, EOMI Neck: Supple, No Nodes Lungs: Clear to auscultation, Normal air movement Cardiovascular: Tachycardic Abdomen: Soft, Non-Distended, Tender - mild diffuse Extremities: Edema Skin: Ulcer/ Wound - reviewed photos LLE IV Site: Peripheral, without redness Musculoskeletal: No Tenderness to Palpation of Joints or Extremities Neurological: Cranial nerves II-XII grossly intact - Assessment/Plan Antibiotics: [] Assessment/Plan: [] Active and Suspected Problems Colitis (Acute) sepsis with colitis - fever resolved, wbc increased this AM. Normal ferritin, on RA. Elevated d-dimer, CRP, and PCT. Cdiff neg, but had recently been starte d on po vanc; last episode of cdiff was 11/2019. Overall low suspicion for covid, and test was neg, so will d/c special isolation. Surgery following, will continue po vanc and meropenem. Will add iv flagyl. Recent wound cx with pseudomonas, but ulcer relatively stable, Dr. Cooper following. Will follow, thank you.
[2020-03-27] MEDS: Ensure Clear 120 ML Liquid PO ×2 (17:15→22:27)
--- NOTE | 2020-03-27 23:03 | PCM.PN.BLA ---
Progress Note Per verbal report from nurse, rounding attending MD intended to discontinue po vancomycin if C-diff x 2 is negative. Was informed by patient's nurse that Second C-diff came back negative. Will discontinue vanco po. STROKE Vital Signs/Narrative: Vital Signs Temp Pulse Resp BP Pulse Ox 03/27/20 22:28 121 H 03/27/20 22:16 98.2 F 121 H 18 129/65 H 95
[2020-03-28] VITALS (15 sets, daily range): BP systolic 122–134; BP diastolic 50–65; PULSE 98–140; RESP 16–22; TEMP 36.3–37.2; O2SAT 92–97
[2020-03-28] MEDS: Albuterol 2.5 MG/3 ML VIAL.NEB. INHALATION ×3 (05:21→21:15)
[2020-03-28] MEDS: 0.9% Normal Saline 1,000 ML 100 ML IV ×2 (06:10→14:53)
[2020-03-28] MEDS: Enoxaparin 80 MG/0.8 ML Syringe 70 MG SC ×2 (08:48→21:49)
[2020-03-28] MEDS: Pentoxifylline 400 MG Tablet PO (08:49)
[2020-03-28] MEDS: Metoprolol Tartrate 50 MG Tablet PO (08:49)
[2020-03-28] MEDS: Collagenase 30gm Tube 1 APPLIC TOPICAL (08:50)
[2020-03-28] MEDS: Ensure Clear 120 ML Liquid PO ×3 (08:53→17:21)
--- NOTE | 2020-03-28 10:33 | PCM.PN.ID ---
Patient Problems: Active and Suspected Problems Colitis (Acute) Subjective: Diarrhea suddenly resolved overnight. No fever, feeling good, no abd pain. - Physical Exam Vitals/I&O's: Vital Signs Temp Pulse Resp BP Pulse Ox 98.9 F 109 H 18 126/60 H 95 03/28/20 08:46 03/28/20 08:49 03/28/20 08:46 03/28/20 08:49 03/28/20 08:46 Oxygen Flow Rate (L/min) 2 Oxygen Delivery Method Nasal Cannula Weight: 66.8 kg Body Mass Index (BMI) 30.7 Intake and Output for Last 24 Hours 03/26/20 03/27/20 03/28/20 23:59 23:59 23:59 Intake Total 1999 2795 / 2795 995 / 995 Output Total 0 / 0 Balance 1999 2795 / 2795 995 / 995 General: Alert, Cooperative, No apparent distress Lungs: Clear to auscultation, Normal air movement Cardiovascular: Regular rate, Regular Rhythm Abdomen: Soft, Non Tender, Non-Distended Skin: No rashes Microbiology Past 72 Hours 03/27/20 00:15 Wound - Leg, Left Gram Stain - Final 03/27/20 00:15 Wound - Leg, Left Wound Culture - Preliminary GNR Poss Pseudomonas sp 03/27/20 17:20 Stool C. difficile DNA Amplification - Final 03/26/20 16:35 Stool Enteric Bacteriology - Final 03/26/20 16:35 Stool C. difficile DNA Amplification - Final 03/26/20 16:05 Mucosa - Nasopharyngeal Coronavirus COVID-19 PCR - Final Current Medications Acetaminophen (Tylenol) 650 mg PO Q6H PRN PRN PRN Reason: Pain Score 1-10/Temp > 100.7 F Last Admin: 03/27/20 04:35 Dose: 650 mg Documented by: Al Hydroxide/Mg Hydroxide (Mylanta Ii) 30 ml PO Q6H PRN PRN PRN Reason: Gastric Burning Albuterol Sulfate (Ventolin Aerosols) 2.5 mg INHALATION Q2H PRN PRN PRN Reason: Dyspnea, wheezing Last Admin: 03/28/20 05:21 Dose: 2.5 mg Documented by: Aspirin (Ecotrin) 81 mg PO QHS [facility] Last Admin: 03/27/20 22:27 Dose: 81 mg Documented by: Atorvastatin Calcium (Lipitor) 20 mg PO QHS [facility] Last Admin: 03/27/20 22:28 Dose: 20 mg Documented by: Collagenase (Santyl) 1 applic TOPICAL DAILY [facility]; Protocol Last Admin: 03/28/20 08:50 Dose: 1 applicatio Documented by: Dextrose (D50w Syringe) 0 gm IV X1 PRN; Protocol PRN Reason: Hypoglycemia Doxepin HCl (Sinequan) 10 mg PO QHS [facility] Last Admin: 03/27/20 22:29 Dose: 10 mg Documented by: Enoxaparin Sodium (Lovenox) 70 mg SC Q12@1000,2200 [facility] Last Admin: 03/28/20 08:48 Dose: 70 mg Documented by: Glucagon () 1 mg IM .X1 PRN PRN Reason: Hypoglycemia Guaifenesin (Robitussin) 20 ml PO Q4H PRN PRN PRN Reason: COUGH Hydralazine HCl (Apresoline Iv) 10 mg IV Q4H PRN PRN PRN Reason: SBP > 160 Sodium Chloride () 1,000 mls @ 100 mls/hr IV .Q10H [facility] Last Admin: 03/28/20 06:10 Dose: 100 mls/hr Documented by: Meropenem 1 gm/ Sodium (Chloride) 120 mls @ 33 mls/hr IV Q8@0200,1000,1800 [facility] Last Admin: 03/28/20 08:53 Dose: 33 mls/hr Documented by: Sodium Chloride () 250 mls @ 15 mls/hr IV .[id number] PRN PRN Reason: Saline Flush Sodium Chloride () 250 mls @ 15 mls/hr IV .[id number] PRN PRN Reason: Additional IVPB Infusion Lactobacillus Acidophilus (Acidophilus) 1 tablet PO BID [facility] Last Admin: 03/28/20 08:48 Dose: 1 tablet Documented by: Levothyroxine Sodium (Synthroid) 137 mcg PO QHS [facility] Last Admin: 03/27/20 22:29 Dose: 137 mcg Documented by: Melatonin (Melatonin) 3 mg PO QHS PRN PRN PRN Reason: INSOMNIA Metoprolol Tartrate (Lopressor (Beta Mehran)) 50 mg PO DAILY [facility] Last Admin: 03/28/20 08:49 Dose: 50 mg Documented by: Metoprolol Tartrate (Lopressor (Beta Mehran)) 100 mg PO QHS [facility] Last Admin: 03/27/20 22:28 Dose: 100 mg Documented by: Morphine Sulfate () 2 mg IV Q3H PRN PRN PRN Reason: Pain Score 6-10/10 Nitroglycerin (Nitrostat) 0.4 mg SUBLINGUAL Q5M PRN PRN Reason: CARDIAC/CHEST PAIN Nutritional Formula (Lactose Free) (Ensure Clear) 120 ml PO 4X/DAY [facility] Last Admin: 03/28/20 08:53 Dose: 120 ml Documented by: Ondansetron HCl (Zofran) 4 mg IV Q8H PRN PRN PRN Reason: NAUSEA/VOMITING Oxycodone HCl (Oxyir) 5 mg PO Q4H PRN PRN PRN Reason: Pain Score 4-5/10 Pentoxifylline (Trental) 400 mg PO DAILY [facility] Last Admin: 03/28/20 08:49 Dose: 400 mg Documented by: Prochlorperazine Edisylate (Compazine Iv) 5 mg IV Q4H PRN PRN PRN Reason: Breakthrough Nausea/Vomiting Sodium Chloride () 10 - 40 ml IV UD PRN PRN Reason: SALINE FLUSH Last Admin: 03/27/20 04:38 Dose: 10 ml Documented by: Throat Lozenges (Cepacol Sore Throat Lozenge) 1 lozenge MUCOUS MEM Q2H PRN PRN PRN Reason: SORE THROAT Medical Necessity - Tobacco Use Smoking Status: Former smoker - Patient quit remotely but cannot give exact year. Tobacco Use: Non-smoker Route of nutrition/ use of supplements: [] Nutritional Intake: [] IV Site: [] [place] Catheter: [] - Assessment/Plan Antibiotics: [] Assessment/Plan: [] Active and Suspected Problems Colitis (Acute) sepsis with colitis - fever resolved, wbc high yesterday. Normal ferritin, on RA. Elevated d-dimer, CRP, and PCT. Cdiff neg x2 here, but had recently been started on po vanc; last episode of cdiff was 11/2019. Overall low suspicion for covid, and test was neg, so out of d/c special isolation. Wound cx with pseudomonas, but ulcer relatively stable, Dr. Cooper following. Feeling much better today. Po vanc was stopped last night and flagyl was canceled before it was given. Unclear what her diagnosis is or why she got better. On meropenem now. Ordering repeat cbc and PCT for now. Answer may be just to send her home on 4 more days of po cipro 500mg bid and po flagyl 500mg tid and then surgery followup. Will follow, d/w primary team.
[2020-03-28 11:11] LABS: Hematocrit 34.5 % (37-47); Hemoglobin 10.8 g/dL (12.0-15.0); Mean Corp Hgb Conc 31.3 g/dL (32-36); Mean Corpuscular Hgb 27.9 pg (27.0-32.0); Mean Corpuscular Volume 89.1 fL (81-99); Mean Platelet Vol. 8.6 fl (6.2-12.0); Platelet Count 385 K/mm3 (150-450); RBC Distribution Width SD 45.3 fl (35.1-43.9); Red Blood Count 3.87 M/mm3 (4.2-5.4)
--- NOTE | 2020-03-28 12:15 | PCM.PROGNOTE ---
<Margarita Garg - Last Filed: 03/28/20 12:46> Patient Problems: Active and Suspected Problems Colitis (Acute) Subjective: Patient seen and examined. Patient reports improvement in diarrhea. No further abdominal pain. Denies fever, chills. Denies nausea, vomiting. - Physical Exam Vitals/I&O's: Vital Signs Temp Pulse Resp BP Pulse Ox 98.9 F 107 H 16 126/60 H 92 03/28/20 08:46 03/28/20 11:05 03/28/20 10:47 03/28/20 08:49 03/28/20 10:47 Oxygen Flow Rate (L/min) 1 Oxygen Delivery Method Nasal Cannula Weight: 147 lb 4.301 oz Body Mass Index (BMI) 30.7 Intake and Output for Last 24 Hours 03/26/20 03/27/20 03/28/20 23:59 23:59 23:59 Intake Total 1999 2795 / 2795 995 / 995 Output Total 0 / 0 Balance 1999 2795 / 2795 995 / 995 General: Alert, Oriented x3, Cooperative HEENT: Atraumatic, PERRLA, EOMI, Normocephalic Neck: Supple, No JVD, Negative Carotid Bruits Lungs: Clear to auscultation, Normal air movement Cardiovascular: Regular rate, Regular Rhythm, Normal S1, Normal S2, No murmurs Abdomen: Bowel Sounds Present, Soft, Non Tender, Non-Distended Extremities: No clubbing, No cyanosis, No edema, Capillary Refill Less than 3 Seconds Skin: No rashes, No breakdown Musculoskeletal: No Tenderness to Palpation of Joints or Extremities Neurological: Cranial nerves II-XII grossly intact, Neuro grossly intact Psych/Mental Status: Normal Affect, Appropriate Microbiology Past 72 Hours 03/27/20 00:15 Wound - Leg, Left Gram Stain - Final 03/27/20 00:15 Wound - Leg, Left Wound Culture - Preliminary GNR Poss Pseudomonas sp 03/27/20 17:20 Stool C. difficile DNA Amplification - Final 03/26/20 16:35 Stool Enteric Bacteriology - Final 03/26/20 16:35 Stool C. difficile DNA Amplification - Final 03/26/20 16:05 Mucosa - Nasopharyngeal Coronavirus COVID-19 PCR - Final Laboratory Results 03/28/20 11:00: WBC 18.0 H, RBC 3.87 L, Hgb 10.8 L, Hct 34.5 L, MCV 89.1, MCH 27.9, MCHC 31.3 L, RDW Std Deviation 45.3 H, RDW Coeff of Naseem 14.0, Plt Count 385, MPV 8.6 03/28/20 11:00: Procalcitonin Pending Current Medications Acetaminophen (Tylenol) 650 mg PO Q6H PRN PRN PRN Reason: Pain Score 1-10/Temp > 100.7 F Last Admin: 03/27/20 04:35 Dose: 650 mg Documented by: Al Hydroxide/Mg Hydroxide (Mylanta Ii) 30 ml PO Q6H PRN PRN PRN Reason: Gastric Burning Albuterol Sulfate (Ventolin Aerosols) 2.5 mg INHALATION Q2H PRN PRN PRN Reason: Dyspnea, wheezing Last Admin: 03/28/20 10:47 Dose: 2.5 mg Documented by: Aspirin (Ecotrin) 81 mg PO QHS [facility] [place] Last Admin: 03/27/20 22:27 Dose: 81 mg Documented by: Atorvastatin Calcium (Lipitor) 20 mg PO QHS [facility] [place] Last Admin: 03/27/20 22:28 Dose: 20 mg Documented by: Collagenase (Santyl) 1 applic TOPICAL DAILY [facility] [place]; Protocol Last Admin: 03/28/20 08:50 Dose: 1 applicatio Documented by: Dextrose (D50w Syringe) 0 gm IV X1 PRN; Protocol PRN Reason: Hypoglycemia Doxepin HCl (Sinequan) 10 mg PO QHS [facility] [place] Last Admin: 03/27/20 22:29 Dose: 10 mg Documented by: Enoxaparin Sodium (Lovenox) 70 mg SC Q12@1000,2200 [facility] [place] Last Admin: 03/28/20 08:48 Dose: 70 mg Documented by: Glucagon () 1 mg IM .X1 PRN PRN Reason: Hypoglycemia Guaifenesin (Robitussin) 20 ml PO Q4H PRN PRN PRN Reason: COUGH Hydralazine HCl (Apresoline Iv) 10 mg IV Q4H PRN PRN PRN Reason: SBP > 160 Sodium Chloride () 1,000 mls @ 100 mls/hr IV .Q10H [facility] [place] Last Admin: 03/28/20 06:10 Dose: 100 mls/hr Documented by: Meropenem 1 gm/ Sodium (Chloride) 120 mls @ 33 mls/hr IV Q8@0200,1000,1800 [facility] [place] Last Admin: 03/28/20 08:53 Dose: 33 mls/hr Documented by: Sodium Chloride () 250 mls @ 15 mls/hr IV .[id number] PRN PRN Reason: Saline Flush Sodium Chloride () 250 mls @ 15 mls/hr IV .[id number] PRN PRN Reason: Additional IVPB Infusion Lactobacillus Acidophilus (Acidophilus) 1 tablet PO BID [facility] [place] Last Admin: 03/28/20 08:48 Dose: 1 tablet Documented by: Levothyroxine Sodium (Synthroid) 137 mcg PO QHS [facility] [place] Last Admin: 03/27/20 22:29 Dose: 137 mcg Documented by: Melatonin (Melatonin) 3 mg PO QHS PRN PRN PRN Reason: INSOMNIA Metoprolol Tartrate (Lopressor (Beta Mehran)) 50 mg PO DAILY [facility] [place] Last Admin: 03/28/20 08:49 Dose: 50 mg Documented by: Metoprolol Tartrate (Lopressor (Beta Mehran)) 100 mg PO QHS [facility] [place] Last Admin: 03/27/20 22:28 Dose: 100 mg Documented by: Morphine Sulfate () 2 mg IV Q3H PRN PRN PRN Reason: Pain Score 6-10/10 Nitroglycerin (Nitrostat) 0.4 mg SUBLINGUAL Q5M PRN PRN Reason: CARDIAC/CHEST PAIN Nutritional Formula (Lactose Free) (Ensure Clear) 120 ml PO 4X/DAY [facility] [place] Last Admin: 03/28/20 08:53 Dose: 120 ml Documented by: Ondansetron HCl (Zofran) 4 mg IV Q8H PRN PRN PRN Reason: NAUSEA/VOMITING Oxycodone HCl (Oxyir) 5 mg PO Q4H PRN PRN PRN Reason: Pain Score 4-5/10 Pentoxifylline (Trental) 400 mg PO DAILY [facility] [place] Last Admin: 03/28/20 08:49 Dose: 400 mg Documented by: Prochlorperazine Edisylate (Compazine Iv) 5 mg IV Q4H PRN PRN PRN Reason: Breakthrough Nausea/Vomiting Sodium Chloride () 10 - 40 ml IV UD PRN PRN Reason: SALINE FLUSH Last Admin: 03/27/20 04:38 Dose: 10 ml Documented by: Throat Lozenges (Cepacol Sore Throat Lozenge) 1 lozenge MUCOUS MEM Q2H PRN PRN PRN Reason: SORE THROAT Medical Necessity - Tobacco Use Smoking Status: Former smoker - Patient quit remotely but cannot give exact year. Tobacco Use: Non-smoker Assessment/Plan All Active Problems Cellulitis of left leg (Acute) Diarrhea (Acute) Tachycardia (Acute) C. difficile colitis (Resolved) Ulcer of left lower extremity, limited to breakdown of skin (Acute) Colitis (Acute) 1. Acute colitis-CT of abdomen and pelvis on admission shows significant colitis most significant within the descending colon, suspicious for infectious or inflammatory etiology including ulcerative colitis. Leukocytosis improving. Fever resolved. General surgery consulted. Plans for outpatient scope. ID following. Elevated d-dimer, CRP and PCT. C. difficile negative x2. Patient has a history of C. difficile, last diagnosed in November however she reports she has been on vancomycin intermittently since that time. Continue meropenem. Advance diet. Monitor overnight. If symptoms and labs remain improved, will discharge on p.o. Cipro and Flagyl with outpatient follow-up for scope. 2. Hypokalemia/hyponatremia-secondary to #1. Replace per protocol. Trend BMP. 3. Left lower extremity cellulitis, chronic left leg ulcer-recent cultures grew Pseudomonas. Repeat culture pending. On meropenem. Dr. Cooper consulted. 4. Suspected viral [id number] ruled out. Supportive treatment. 5. Hypertension-stable, continue metoprolol regimen. 6. Hyperlipidemia-continue statin. 7. Hypothyroidism-continue Synthroid regimen. DVT prophylaxis-Lovenox subcu This patient was seen by JACOB Freeman under the supervision of Dr. Juarez. <Boo Juarez - Last Filed: 03/28/20 14:15> - Physical Exam Vitals/I&O's: Vital Signs Temp Pulse Resp BP Pulse Ox 98.9 F 107 H 16 126/60 H 92 03/28/20 08:46 03/28/20 11:05 03/28/20 10:47 03/28/20 08:49 03/28/20 10:47 Oxygen Flow Rate (L/min) 1 Oxygen Delivery Method Nasal Cannula Weight: 66.8 kg Body Mass Index (BMI) 30.7 Intake and Output for Last 24 Hours 03/26/20 03/27/20 03/28/20 23:59 23:59 23:59 Intake Total 1999 2795 / 2795 1595 / 1595 Output Total 0 / 0 Balance 1999 2795 / 2795 1595 / 1595 Microbiology Past 72 Hours 03/27/20 00:15 Wound - Leg, Left Gram Stain - Final 03/27/20 00:15 Wound - Leg, Left Wound Culture - Preliminary GNR Poss Pseudomonas sp 03/27/20 17:20 Stool C. difficile DNA Amplification - Final 03/26/20 16:35 Stool Enteric Bacteriology - Final 03/26/20 16:35 Stool C. difficile DNA Amplification - Final 03/26/20 16:05 Mucosa - Nasopharyngeal Coronavirus COVID-19 PCR - Final Laboratory Results 03/28/20 11:00: WBC 18.0 H, RBC 3.87 L, Hgb 10.8 L, Hct 34.5 L, MCV 89.1, MCH 27.9, MCHC 31.3 L, RDW Std Deviation 45.3 H, RDW Coeff of Naseem 14.0, Plt Count 385, MPV 8.6 03/28/20 11:00: Procalcitonin 0.62 H Current Medications Acetaminophen (Tylenol) 650 mg PO Q6H PRN PRN PRN Reason: Pain Score 1-10/Temp > 100.7 F Last Admin: 03/27/20 04:35 Dose: 650 mg Documented by: Al Hydroxide/Mg Hydroxide (Mylanta Ii) 30 ml PO Q6H PRN PRN PRN Reason: Gastric Burning Albuterol Sulfate (Ventolin Aerosols) 2.5 mg INHALATION Q2H PRN PRN PRN Reason: Dyspnea, wheezing Last Admin: 03/28/20 10:47 Dose: 2.5 mg Documented by: Aspirin (Ecotrin) 81 mg PO QHS [facility] [place] Last Admin: 03/27/20 22:27 Dose: 81 mg Documented by: Atorvastatin Calcium (Lipitor) 20 mg PO QHS [facility] [place] Last Admin: 03/27/20 22:28 Dose: 20 mg Documented by: Collagenase (Santyl) 1 applic TOPICAL DAILY [facility]; Protocol Last Admin: 03/28/20 08:50 Dose: 1 applicatio Documented by: Dextrose (D50w Syringe) 0 gm IV X1 PRN; Protocol PRN Reason: Hypoglycemia Doxepin HCl (Sinequan) 10 mg PO QHS [facility] [place] Last Admin: 03/27/20 22:29 Dose: 10 mg Documented by: Enoxaparin Sodium (Lovenox) 70 mg SC Q12@1000,2200 [facility] [place] Last Admin: 03/28/20 08:48 Dose: 70 mg Documented by: Glucagon () 1 mg IM .X1 PRN PRN Reason: Hypoglycemia Guaifenesin (Robitussin) 20 ml PO Q4H PRN PRN PRN Reason: COUGH Hydralazine HCl (Apresoline Iv) 10 mg IV Q4H PRN PRN PRN Reason: SBP > 160 Sodium Chloride () 1,000 mls @ 100 mls/hr IV .Q10H [facility] [place] Last Admin: 03/28/20 06:10 Dose: 100 mls/hr Documented by: Meropenem 1 gm/ Sodium (Chloride) 120 mls @ 33 mls/hr IV Q8@0200,1000,1800 [facility] [place] Last Infusion: 03/28/20 13:45 Dose: Infused Documented by: Sodium Chloride () 250 mls @ 15 mls/hr IV .[id number] PRN PRN Reason: Saline Flush Sodium Chloride () 250 mls @ 15 mls/hr IV .[id number] PRN PRN Reason: Additional IVPB Infusion Lactobacillus Acidophilus (Acidophilus) 1 tablet PO BID [facility] [place] Last Admin: 03/28/20 08:48 Dose: 1 tablet Documented by: Levothyroxine Sodium (Synthroid) 137 mcg PO QHS [facility] [place] Last Admin: 03/27/20 22:29 Dose: 137 mcg Documented by: Melatonin (Melatonin) 3 mg PO QHS PRN PRN PRN Reason: INSOMNIA Metoprolol Tartrate (Lopressor (Beta Mehran)) 50 mg PO DAILY [facility] [place] Last Admin: 03/28/20 08:49 Dose: 50 mg Documented by: Metoprolol Tartrate (Lopressor (Beta Mehran)) 100 mg PO QHS [facility] [place] Last Admin: 03/27/20 22:28 Dose: 100 mg Documented by: Morphine Sulfate () 2 mg IV Q3H PRN PRN PRN Reason: Pain Score 6-10/10 Nitroglycerin (Nitrostat) 0.4 mg SUBLINGUAL Q5M PRN PRN Reason: CARDIAC/CHEST PAIN Nutritional Formula (Lactose Free) (Ensure Clear) 120 ml PO 4X/DAY [facility] [place] Last Admin: 03/28/20 13:43 Dose: 120 ml Documented by: Ondansetron HCl (Zofran) 4 mg IV Q8H PRN PRN PRN Reason: NAUSEA/VOMITING Oxycodone HCl (Oxyir) 5 mg PO Q4H PRN PRN PRN Reason: Pain Score 4-5/10 Pentoxifylline (Trental) 400 mg PO DAILY [facility] [place] Last Admin: 03/28/20 08:49 Dose: 400 mg Documented by: Prochlorperazine Edisylate (Compazine Iv) 5 mg IV Q4H PRN PRN PRN Reason: Breakthrough Nausea/Vomiting Sodium Chloride () 10 - 40 ml IV UD PRN PRN Reason: SALINE FLUSH Last Admin: 03/27/20 04:38 Dose: 10 ml Documented by: Throat Lozenges (Cepacol Sore Throat Lozenge) 1 lozenge MUCOUS MEM Q2H PRN PRN PRN Reason: SORE THROAT Assessment/Plan This patient was seen in conjunction with JACOB Freeman . I have independently interviewed and examined the patient and reviewed pertinent historical, laboratory, and other data. Please refer to JACOB Freeman note for details of this patient's presentation, findings, and recommendations. I have reviewed JACOB Freeman note and concur with documented findings. In brief, Patient is a 69-year-old lady who presented with a 3-day history of diarrhea fever as well as cough Physical Examination: GENERAL: cooperative HEENT: Atraumatic; EYES; Anicteric, Normal Conjunctiva NECK; supple, normal thyroid, RESPIRATORY: Diminished to auscultation CARDIOVASCULAR: Regular S1 S2, GI: soft, normoactive bowel sounds, NEURO: Awake; no lateralizing signs. SKIN: No Rash PSYCH; Flat affect Assessment: 1. Acute colitis 2. Suspected viral syndrome COVID 19 ruled out 3. Left lower extremity cellulitis 4. Hypokalemia 5. Hyponatremia 6. History of C. difficile colitis 7. Hypothyroidism 8. Essential hypertension 9. Dyslipidemia 10. DVT prophylaxis ~ on enoxaparin Recommendations: 1. I have discussed the results of my overview and impressions with the patient 2. Options for management were reviewed Inpatient E&M: 29767 Subs Hosp L2
[2020-03-28 12:18] LABS: Procalcitonin 0.62 ng/mL (0.00-0.09)
--- NOTE | 2020-03-28 12:21 | PCM.PN.SRG ---
Patient Problems: Active and Suspected Problems Colitis (Acute) Subjective: Patient without complaints of abdominal pain. Diarrhea has significantly resolved Objective: Abdomen is soft nontender nondistended - Physical Exam Vitals/I&O's: Vital Signs Temp Pulse Resp BP Pulse Ox 98.9 F 107 H 16 126/60 H 92 03/28/20 08:46 03/28/20 11:05 03/28/20 10:47 03/28/20 08:49 03/28/20 10:47 Oxygen Flow Rate (L/min) 1 Oxygen Delivery Method Nasal Cannula Weight: 147 lb 4.301 oz Body Mass Index (BMI) 30.7 Intake and Output for Last 24 Hours 03/26/20 03/27/20 03/28/20 23:59 23:59 23:59 Intake Total 1999 2795 / 2795 995 / 995 Output Total 0 / 0 Balance 1999 2795 / 2795 995 / 995 Microbiology Past 72 Hours 03/27/20 00:15 Wound - Leg, Left Gram Stain - Final 03/27/20 00:15 Wound - Leg, Left Wound Culture - Preliminary GNR Poss Pseudomonas sp 03/27/20 17:20 Stool C. difficile DNA Amplification - Final 03/26/20 16:35 Stool Enteric Bacteriology - Final 03/26/20 16:35 Stool C. difficile DNA Amplification - Final 03/26/20 16:05 Mucosa - Nasopharyngeal Coronavirus COVID-19 PCR - Final Laboratory Results 03/28/20 11:00: WBC 18.0 H, RBC 3.87 L, Hgb 10.8 L, Hct 34.5 L, MCV 89.1, MCH 27.9, MCHC 31.3 L, RDW Std Deviation 45.3 H, RDW Coeff of Naseem 14.0, Plt Count 385, MPV 8.6 03/28/20 11:00: Procalcitonin 0.62 H Current Medications Acetaminophen (Tylenol) 650 mg PO Q6H PRN PRN PRN Reason: Pain Score 1-10/Temp > 100.7 F Last Admin: 03/27/20 04:35 Dose: 650 mg Documented by: Al Hydroxide/Mg Hydroxide (Mylanta Ii) 30 ml PO Q6H PRN PRN PRN Reason: Gastric Burning Albuterol Sulfate (Ventolin Aerosols) 2.5 mg INHALATION Q2H PRN PRN PRN Reason: Dyspnea, wheezing Last Admin: 03/28/20 10:47 Dose: 2.5 mg Documented by: Aspirin (Ecotrin) 81 mg PO QHS COUNT INCLUDES THE [facility] Last Admin: 03/27/20 22:27 Dose: 81 mg Documented by: Atorvastatin Calcium (Lipitor) 20 mg PO QHS COUNT INCLUDES THE [facility] Last Admin: 03/27/20 22:28 Dose: 20 mg Documented by: Collagenase (Santyl) 1 applic TOPICAL DAILY COUNT INCLUDES THE [facility]; Protocol Last Admin: 03/28/20 08:50 Dose: 1 applicatio Documented by: Dextrose (D50w Syringe) 0 gm IV X1 PRN; Protocol PRN Reason: Hypoglycemia Doxepin HCl (Sinequan) 10 mg PO QHS COUNT INCLUDES THE [facility] Last Admin: 03/27/20 22:29 Dose: 10 mg Documented by: Enoxaparin Sodium (Lovenox) 70 mg SC Q12@1000,2200 COUNT INCLUDES THE [facility] Last Admin: 03/28/20 08:48 Dose: 70 mg Documented by: Glucagon () 1 mg IM .X1 PRN PRN Reason: Hypoglycemia Guaifenesin (Robitussin) 20 ml PO Q4H PRN PRN PRN Reason: COUGH Hydralazine HCl (Apresoline Iv) 10 mg IV Q4H PRN PRN PRN Reason: SBP > 160 Sodium Chloride () 1,000 mls @ 100 mls/hr IV .Q10H COUNT INCLUDES THE [facility] Last Admin: 03/28/20 06:10 Dose: 100 mls/hr Documented by: Meropenem 1 gm/ Sodium (Chloride) 120 mls @ 33 mls/hr IV Q8@0200,1000,1800 COUNT INCLUDES THE [facility] Last Admin: 03/28/20 08:53 Dose: 33 mls/hr Documented by: Sodium Chloride () 250 mls @ 15 mls/hr IV .[id number] PRN PRN Reason: Saline Flush Sodium Chloride () 250 mls @ 15 mls/hr IV .[id number] PRN PRN Reason: Additional IVPB Infusion Lactobacillus Acidophilus (Acidophilus) 1 tablet PO BID COUNT INCLUDES THE [facility] Last Admin: 03/28/20 08:48 Dose: 1 tablet Documented by: Levothyroxine Sodium (Synthroid) 137 mcg PO QHS COUNT INCLUDES THE [facility] Last Admin: 03/27/20 22:29 Dose: 137 mcg Documented by: Melatonin (Melatonin) 3 mg PO QHS PRN PRN PRN Reason: INSOMNIA Metoprolol Tartrate (Lopressor (Beta Mehran)) 50 mg PO DAILY COUNT INCLUDES THE [facility] Last Admin: 03/28/20 08:49 Dose: 50 mg Documented by: Metoprolol Tartrate (Lopressor (Beta Mehran)) 100 mg PO QHS COUNT INCLUDES THE [facility] Last Admin: 03/27/20 22:28 Dose: 100 mg Documented by: Morphine Sulfate () 2 mg IV Q3H PRN PRN PRN Reason: Pain Score 6-10/10 Nitroglycerin (Nitrostat) 0.4 mg SUBLINGUAL Q5M PRN PRN Reason: CARDIAC/CHEST PAIN Nutritional Formula (Lactose Free) (Ensure Clear) 120 ml PO 4X/DAY COUNT INCLUDES THE [facility] Last Admin: 03/28/20 08:53 Dose: 120 ml Documented by: Ondansetron HCl (Zofran) 4 mg IV Q8H PRN PRN PRN Reason: NAUSEA/VOMITING Oxycodone HCl (Oxyir) 5 mg PO Q4H PRN PRN PRN Reason: Pain Score 4-5/10 Pentoxifylline (Trental) 400 mg PO DAILY COUNT INCLUDES THE [facility] Last Admin: 03/28/20 08:49 Dose: 400 mg Documented by: Prochlorperazine Edisylate (Compazine Iv) 5 mg IV Q4H PRN PRN PRN Reason: Breakthrough Nausea/Vomiting Sodium Chloride () 10 - 40 ml IV UD PRN PRN Reason: SALINE FLUSH Last Admin: 03/27/20 04:38 Dose: 10 ml Documented by: Throat Lozenges (Cepacol Sore Throat Lozenge) 1 lozenge MUCOUS MEM Q2H PRN PRN PRN Reason: SORE THROAT Medical Necessity - Tobacco Use Smoking Status: Former smoker - Patient quit remotely but cannot give exact year. Tobacco Use: Non-smoker Assessment/Plan All Active Problems Cellulitis of left leg (Acute) Diarrhea (Acute) Tachycardia (Acute) C. difficile colitis (Resolved) Ulcer of left lower extremity, limited to breakdown of skin (Acute) Colitis (Acute) We will see patient in outpatient setting and perform colonoscopy on her at that time. Inpatient E&M: [id number] [facility] H[facility] L2
--- NOTE | 2020-03-28 21:15 | DCINST_ITS ---
Weight Bearing Status: Weight bearing as tolerated Keep extremity elevated above heart level: Left Leg Call your doctor if your incision/area has: Continuous Slow Oozing, Sudden Increased Bleeding, Increased Pain/ Swelling, Increased Redness, Foul Smelling Discharge Call your doctor if you observe: Fever of 101 or Higher, Calf discomfort, Uncontrolled pain Cleanse incision/area with: Soap & Water Additional Dressing/Incision Instructions:: daily Santyl and overlying Adaptic with additional Aquaphor or Vaseline applied to the peter-ulcer site Allergies/Adverse Reactions: Allergies naproxen [From Naprosyn] Allergy (Verified 03/26/20 15:14) Rash Penicillins [PCN] Allergy (Verified 03/26/20 15:14) Rash amoxicillin Adverse Reaction (Verified 03/26/20 15:14) Rash cephalexin [From Keflex] Adverse Reaction (Verified 03/26/20 15:14) Rash clotrimazole [From Lotrimin] Adverse Reaction (Verified 03/26/20 15:14) Rash diphenhydramine [From Benadryl] Adverse Reaction (Verified 03/26/20 15:14) Rash griseofulvin Adverse Reaction (Verified 03/26/20 15:14) Rash ibuprofen [From Motrin] Adverse Reaction (Verified 03/26/20 15:14) Rash miconazole [From Monistat 1 Combo Pack] Adverse Reaction (Verified 03/26/20 15:14) Rash propranolol [From Inderal LA] Adverse Reaction (Verified 03/26/20 15:14) Rash rofecoxib [From Vioxx] Adverse Reaction (Verified 03/26/20 15:14) Rash Sulfa (Sulfonamide Antibiotics) Adverse Reaction (Verified 03/26/20 15:14) Rash Medications to take at Discharge Aspirin E.C. [Ecotrin] 81 mg PO QHS 11/28/19 Doxepin HCl [Sinequan] 10 mg PO QHS 11/28/19 Furosemide [Lasix] 40 mg PO DAILY PRN PRN 11/28/19 Levothyroxine [Synthroid] 137 mcg PO QHS 11/28/19 Pentoxifylline [Trental] 400 mg PO DAILY 11/28/19 Simvastatin [Zocor] 40 mg PO QHS 11/28/19 Collagenase [Santyl] 1 applic TOPICAL DAILY 03/26/20 Lactobacillus Acidophilus [Acidophilus] 2 tab PO BID 03/26/20 Metoprolol Tartrate 50 mg PO DAILY 03/26/20 Metoprolol Tartrate [Lopressor (Beta Mehran)] 100 mg PO QHS 03/26/20 Vancomycin [Vancocin] 250 mg PO Q6H 03/26/20 Primary Care Physician: Boo Saunders MD [Primary Care Provider] - Test Results: Test results from this visit will be discussed in further detail at your follow- up appointment, if applicable. Please Follow Up With: Clinic,Wound When: 1 week w/ Dr. Cooper. Call [phone] sooner if questions or concerns. Proposed Discharge Date: 03/29/20
[2020-03-28] MEDS: Aspirin E.C. 81 MG Tablet PO (21:48)
[2020-03-28] MEDS: Metoprolol Tartrate 100 MG Tablet PO (21:49)
[2020-03-28] MEDS: Atorvastatin Calcium 20 MG Tablet PO (21:49)
[2020-03-28] MEDS: Levothyroxine 137 MCG Tablet PO (21:50)
[2020-03-28] MEDS: Doxepin Hydrochloride 10 MG Capsule PO (21:50)
[2020-03-29] VITALS (9 sets, daily range): BP systolic 128–137; BP diastolic 50–64; PULSE 94–112; RESP 16–18; TEMP 36.6–36.8; O2SAT 95–98
[2020-03-29] MEDS: 0.9% Normal Saline 1,000 ML 100 ML IV (01:30)
--- NOTE | 2020-03-29 01:38 | NURSING ---
Pt does not seem to be calling out each time she is incontinent. Pt sheet and attends changed. Michelle placed.
--- NOTE | 2020-03-29 04:10 | PCM.RRT.BLA ---
Rapid Response Note - Blank Nurse report crackles. Stop IVF.
[2020-03-29] MEDS: 0.9% Saline Lock 10 ML Syringe IV (07:02)
[2020-03-29 07:13] LABS: Hematocrit 34.7 % (37-47); Hemoglobin 10.8 g/dL (12.0-15.0); Mean Corp Hgb Conc 31.1 g/dL (32-36); Mean Corpuscular Hgb 28.3 pg (27.0-32.0); Mean Corpuscular Volume 91.1 fL (81-99); Mean Platelet Vol. 8.9 fl (6.2-12.0); Platelet Count 384 K/mm3 (150-450); RBC Distribution Width CV 14.4 % (11.6-14.6); RBC Distribution Width SD 47.7 fl (35.1-43.9); Red Blood Count 3.81 M/mm3 (4.2-5.4); White Blood Count 11.7 K/mm3 (4.4-11.0)
[2020-03-29] MEDS: Albuterol 2.5 MG/3 ML VIAL.NEB. INHALATION ×2 (07:24→11:06)
[2020-03-29 07:38] LABS: Anion Gap 5 (5-15); BUN 3 mg/dL (7-18); BUN/Creat Ratio 10.8 RATIO (10-20); Calcium,Total 8.2 mg/dL (8.5-10.1); Chloride 110 mmol/L (98-107); Creatinine, Serum 0.28 mg/dL (0.55-1.02); EST Glomerular Filtration Rate 254 mL/min (>60); Est Glom Filt Rate - Afr Amer 308 mL/min (>60); Estimated Creatinine Clearance 54.41 ml/min; Glucose 96 mg/dL (74-106); Potassium 3.5 mmol/L (3.5-5.1); Sodium Level 140 mmol/L (136-145)
[2020-03-29] MEDS: Enoxaparin 80 MG/0.8 ML Syringe 70 MG SC (09:23)
[2020-03-29] MEDS: Ensure Clear 120 ML Liquid PO (09:23)
[2020-03-29] MEDS: Pentoxifylline 400 MG Tablet PO (09:23)
[2020-03-29] MEDS: Metoprolol Tartrate 50 MG Tablet PO (09:24)
[2020-03-29] MEDS: Collagenase 30gm Tube 1 APPLIC TOPICAL (09:24)
--- NOTE | 2020-03-29 10:47 | PCM.DC ---
- Discharge Diagnoses Current Active Problems: Current Active and Chronic Problems Colitis (Acute) HTN (hypertension) (Chronic) HLD (hyperlipidemia) (Chronic) Former tobacco use (Chronic) Sinus tachycardia (Chronic) You will use the following diet at home:: Other - Light diet-advance as tolerated Discharge Activity: Return to Normal Activity Weight Bearing Status: Weight bearing as tolerated Keep extremity elevated above heart level: Left Leg Call your doctor if your incision/area has: Continuous Slow Oozing, Sudden Increased Bleeding, Increased Pain/ Swelling, Increased Redness, Foul Smelling Discharge Call your doctor if you observe: Fever of 101 or Higher, Calf discomfort, Uncontrolled pain Cleanse incision/area with: Soap & Water Additional Dressing/Incision Instructions:: daily Santyl and overlying Adaptic with additional Aquaphor or Vaseline applied to the peter-ulcer site Allergies/Adverse Reactions: Allergies naproxen [From Naprosyn] Allergy (Verified 03/26/20 15:14) Rash Penicillins [PCN] Allergy (Verified 03/26/20 15:14) Rash amoxicillin Adverse Reaction (Verified 03/26/20 15:14) Rash cephalexin [From Keflex] Adverse Reaction (Verified 03/26/20 15:14) Rash clotrimazole [From Lotrimin] Adverse Reaction (Verified 03/26/20 15:14) Rash diphenhydramine [From Benadryl] Adverse Reaction (Verified 03/26/20 15:14) Rash griseofulvin Adverse Reaction (Verified 03/26/20 15:14) Rash ibuprofen [From Motrin] Adverse Reaction (Verified 03/26/20 15:14) Rash miconazole [From Monistat 1 Combo Pack] Adverse Reaction (Verified 03/26/20 15:14) Rash propranolol [From Inderal LA] Adverse Reaction (Verified 03/26/20 15:14) Rash rofecoxib [From Vioxx] Adverse Reaction (Verified 03/26/20 15:14) Rash Sulfa (Sulfonamide Antibiotics) Adverse Reaction (Verified 03/26/20 15:14) Rash Medications to take at Discharge Aspirin E.C. [Ecotrin] 81 mg PO QHS 11/28/19 Doxepin HCl [Sinequan] 10 mg PO QHS 11/28/19 Furosemide [Lasix] 40 mg PO DAILY PRN PRN 11/28/19 Levothyroxine [Synthroid] 137 mcg PO QHS 11/28/19 Pentoxifylline [Trental] 400 mg PO DAILY 11/28/19 Simvastatin [Zocor] 40 mg PO QHS 11/28/19 Collagenase [Santyl] 1 applic TOPICAL DAILY 03/26/20 Lactobacillus Acidophilus [Acidophilus] 2 tab PO BID 03/26/20 Metoprolol Tartrate 50 mg PO DAILY 03/26/20 Metoprolol Tartrate [Lopressor (beta stefany)] 100 mg PO QHS 03/26/20 Ciprofloxacin [Cipro] 500 mg PO BID #8 tab 03/29/20 metroNIDAZOLE [Flagyl] 500 mg PO Q8H #12 tab 03/29/20 The following prescriptions were given: Ciprofloxacin [Cipro] 500 mg PO BID #8 tab Transmission Status: Pending to [facility] metroNIDAZOLE [Flagyl] 500 mg PO Q8H #12 tab Transmission Status: Pending to [facility] Primary Care Physician: Boo Saunders MD [Primary Care Provider] - Please follow up with your Primary Care Physician in: 1 Week Test Results: Test results from this visit will be discussed in further detail at your follow-up appointment, if applicable. Please Follow Up With: Clinic,Wound When: 1 week w/ Dr. Cooper. Call [phone] sooner if questions or concerns. Please Follow Up With: Yefri Rubio MD When: Call Wednesday to schedule outpatient colonoscopy Proposed Discharge Date: 03/29/20
--- NOTE | 2020-03-29 10:50 | PCM.DC.SUM ---
<Margarita Garg - Last Filed: 03/29/20 10:56> Discharge Date and Diagnosis Date of Admission: 03/26/20 Date of Discharge: 03/29/20 - Primary Discharge Diagnosis Acute Problems: Active Problems 1. Acute colitis 2. Hypokalemia/hyponatremia-secondary to #1. 3. Left lower extremity cellulitis, chronic left leg ulcer 4. Suspected viral [id number] ruled out. 5. Hypertension 6. Hyperlipidemia 7. Hypothyroidism - Secondary Discharge Diagnosis Chronic Problems: Chronic Problems Ulcer of left lower extremity with fat layer exposed (Chronic) Delayed wound healing (Chronic) Venous insufficiency (Chronic) left Greater saphenous vein Other specified peripheral vascular diseases (Chronic) bilateral lower extremity Left leg pain (Chronic) Leg edema, left (Chronic) Colonization status (Chronic) MVP (mitral valve prolapse) (Chronic) Thyroid disorder (Chronic) HTN (hypertension) (Chronic) HLD (hyperlipidemia) (Chronic) Former tobacco use (Chronic) Sinus tachycardia (Chronic) Hospital Course and Treatment Imaging Results: Diagnostic Data Chest X-Ray 03/26/20 15:55 IMPRESSION: No acute process, stable COPD changes, stable minimal pulmonary scarring Electronically Signed: Pola Degroot at 16:25 EDT Tel , Service support , Abdomen/Pelvis CT 03/26/20 16:12 IMPRESSION: Significant colitis pattern most significant within the descending colon, sigmoid colon and rectum with some involvement of the distal transverse colon. Findings are suspicious for infectious/inflammatory etiologies including ulcerative colitis. Pseudomembranous colitis also cannot be excluded. Ischemia is in the differential diagnosis. Moderate bladder distention Small hiatal hernia S-shaped thoracolumbar spinal scoliosis with osteophyte formation. The significant atrophy in the anterior thigh muscles. There are significant degenerative changes left hip Mild gallbladder distention, punctate gallstone Electronically Signed: Pola Degroot at 19:11 EDT Tel , Service support , Tibia/Fibula X-Ray 03/26/20 17:28 IMPRESSION: Soft tissue edema and soft tissue ulceration likely cellulitis Electronically Signed: Pola Degroot at 17:59 EDT Tel , Service support , Consultations 03/26/20 23:13 Consult: Onc/Wound/golf cart mechanic Routine Comment: Dr. Cooper- Podiatry Dr. Rubio- General Surgery Dr. De La Cruz- ID Operations: None Procedures: None Summary of Care Provided: The patient is a 69 year old F admitted 03/26/2020 due to diarrhea, fever and cough. 1. Acute colitis-CT of abdomen and pelvis on admission shows significant colitis most significant within the descending colon, suspicious for infectious or inflammatory etiology including ulcerative colitis. Leukocytosis improved. Fever resolved. Diarrhea resolved. General surgery consulted. Plans for outpatient scope. Patient has never had a colonoscopy before. ID following. Elevated d-dimer, CRP and PCT. C. difficile negative x2. Patient has a history of C. difficile, last diagnosed in November however she reports she has been on vancomycin intermittently since that time. IV meropenem during admission. Will discharge on p.o. Cipro and Flagyl with outpatient follow-up for scope. 2. Hypokalemia/hyponatremia-secondary to #1. Replaced per protocol. 3. Left lower extremity cellulitis, chronic left leg ulcer-culture grew Pseudomonas. Dr. Cooper consulted. Continue dressing changes with daily Santyl and overlying Adaptic with additional Aquaphor and Vaseline. Ulcer does not appear infected. Follow-up at wound center. 4. Suspected viral [id number] ruled out. Supportive treatment. 5. Hypertension-stable, continue metoprolol regimen. 6. Hyperlipidemia-continue statin. 7. Hypothyroidism-continue Synthroid regimen. General: Alert, Oriented x3, Cooperative HEENT: Atraumatic, PERRLA, EOMI, Normocephalic Neck: Supple, No JVD, Negative Carotid Bruits Lungs: Clear to auscultation, Normal air movement Cardiovascular: Regular rate, Regular Rhythm, Normal S1, Normal S2, No murmurs Abdomen: Bowel Sounds Present, Soft, Non Tender, Non-Distended Extremities: No clubbing, No cyanosis, No edema, Capillary Refill Less than 3 Seconds Skin: No rashes, No breakdown Musculoskeletal: No Tenderness to Palpation of Joints or Extremities Neurological: Cranial nerves II-XII grossly intact, Neuro grossly intact Psych/Mental Status: Normal Affect, Appropriate Patient seen and examined prior to discharge. Physical assessment as noted above. Patient is stable for discharge with follow up recommendations as noted above. This patient was seen by JACOB Freeman under the supervision of Dr. Juarez. - Physical Exam Vitals/I&O's: Vital Signs Temp Pulse Resp BP Pulse Ox 98.3 F 111 H 18 128/64 H 96 03/29/20 09:19 03/29/20 09:24 03/29/20 09:19 03/29/20 09:24 03/29/20 09:19 Oxygen Flow Rate (L/min) 2 Oxygen Delivery Method Room Air Weight: 147 lb 4.301 oz Body Mass Index (BMI) 30.7 Intake and Output for Last 24 Hours 03/27/20 03/28/20 03/29/20 23:59 23:59 23:59 Intake Total 2795 / 2795 3356.67 / 3356.67 1325 / 1325 Output Total 0 / 0 Balance 2795 / 2795 3356.67 / 3356.67 1325 / 1325 Microbiology Past 72 Hours 03/27/20 00:15 Wound - Leg, Left Gram Stain - Final 03/27/20 00:15 Wound - Leg, Left Wound Culture - Final Pseudomonas aeroginosa 03/26/20 15:45 Blood Culture (Wb) - Anticubital Right Blood Culture - Preliminary No growth in 48 hours. 03/26/20 15:30 Blood Culture (Wb) - Anticubital Left Blood Culture - Preliminary No growth in 48 hours. 03/27/20 17:20 Stool C. difficile DNA Amplification - Final 03/26/20 16:35 Stool Enteric Bacteriology - Final 03/26/20 16:35 Stool C. difficile DNA Amplification - Final 03/26/20 16:05 Mucosa - Nasopharyngeal Coronavirus COVID-19 PCR - Final Laboratory Results 03/28/20 11:00: WBC 18.0 H, RBC 3.87 L, Hgb 10.8 L, Hct 34.5 L, MCV 89.1, MCH 27.9, MCHC 31.3 L, RDW Std Deviation 45.3 H, RDW Coeff of Naseem 14.0, Plt Count 385, MPV 8.6 03/28/20 11:00: Procalcitonin 0.62 H 03/29/20 06:37: WBC 11.7 H, RBC 3.81 L, Hgb 10.8 L, Hct 34.7 L, MCV 91.1, MCH 28.3, MCHC 31.1 L, RDW Std Deviation 47.7 H, RDW Coeff of Naseem 14.4, Plt Count 384, MPV 8.9 03/29/20 06:37: Sodium 140, Potassium 3.5, Chloride 110 H, Carbon Dioxide 25.0, Anion Gap 5, BUN 3 L, Creatinine 0.28 L, Estim Creat Clear Calc 54.41, Est GFR (MDRD) Af Amer 308, Est GFR (MDRD) Non-Af 254, BUN/Creatinine Ratio 10.8, Glucose 96, Calcium 8.2 L Current Medications Acetaminophen (Tylenol) 650 mg PO Q6H PRN PRN PRN Reason: Pain Score 1-10/Temp > 100.7 F Last Admin: 03/27/20 04:35 Dose: 650 mg Documented by: Al Hydroxide/Mg Hydroxide (Mylanta Ii) 30 ml PO Q6H PRN PRN PRN Reason: Gastric Burning Albuterol Sulfate (Ventolin Aerosols) 2.5 mg INHALATION Q2H PRN PRN PRN Reason: Dyspnea, wheezing Last Admin: 03/29/20 07:24 Dose: 2.5 mg Documented by: Aspirin (Ecotrin) 81 mg PO QHS [facility] Last Admin: 03/28/20 21:48 Dose: 81 mg Documented by: Atorvastatin Calcium (Lipitor) 20 mg PO QHS [facility] Last Admin: 03/28/20 21:49 Dose: 20 mg Documented by: Collagenase (Santyl) 1 applic TOPICAL DAILY [facility]; Protocol Last Admin: 03/29/20 09:24 Dose: 1 applicatio Documented by: Dextrose (D50w Syringe) 0 gm IV X1 PRN; Protocol PRN Reason: Hypoglycemia Doxepin HCl (Sinequan) 10 mg PO QHS [facility] Last Admin: 03/28/20 21:50 Dose: 10 mg Documented by: Enoxaparin Sodium (Lovenox) 70 mg SC Q12@1000,2200 [facility] Last Admin: 03/29/20 09:23 Dose: 70 mg Documented by: Glucagon () 1 mg IM .X1 PRN PRN Reason: Hypoglycemia Guaifenesin (Robitussin) 20 ml PO Q4H PRN PRN PRN Reason: COUGH Hydralazine HCl (Apresoline Iv) 10 mg IV Q4H PRN PRN PRN Reason: SBP > 160 Meropenem 1 gm/ Sodium (Chloride) 120 mls @ 33 mls/hr IV Q8@0200,1000,1800 [facility] Last Admin: 03/29/20 09:23 Dose: 33 mls/hr Documented by: Sodium Chloride () 250 mls @ 15 mls/hr IV .[id number] PRN PRN Reason: Saline Flush Sodium Chloride () 250 mls @ 15 mls/hr IV .[id number] PRN PRN Reason: Additional IVPB Infusion Lactobacillus Acidophilus (Acidophilus) 1 tablet PO BID [facility] Last Admin: 03/29/20 09:23 Dose: 1 tablet Documented by: Levothyroxine Sodium (Synthroid) 137 mcg PO QHS [facility] Last Admin: 03/28/20 21:50 Dose: 137 mcg Documented by: Melatonin (Melatonin) 3 mg PO QHS PRN PRN PRN Reason: INSOMNIA Metoprolol Tartrate (Lopressor (Beta Mehran)) 50 mg PO DAILY [facility] Last Admin: 03/29/20 09:24 Dose: 50 mg Documented by: Metoprolol Tartrate (Lopressor (Beta Mehran)) 100 mg PO QHS [facility] Last Admin: 03/28/20 21:49 Dose: 100 mg Documented by: Morphine Sulfate () 2 mg IV Q3H PRN PRN PRN Reason: Pain Score 6-10/10 Nitroglycerin (Nitrostat) 0.4 mg SUBLINGUAL Q5M PRN PRN Reason: CARDIAC/CHEST PAIN Nutritional Formula (Lactose Free) (Ensure Clear) 120 ml PO 4X/DAY [facility] Last Admin: 03/29/20 09:23 Dose: 120 ml Documented by: Ondansetron HCl (Zofran) 4 mg IV Q8H PRN PRN PRN Reason: NAUSEA/VOMITING Oxycodone HCl (Oxyir) 5 mg PO Q4H PRN PRN PRN Reason: Pain Score 4-5/10 Pentoxifylline (Trental) 400 mg PO DAILY [facility] Last Admin: 03/29/20 09:23 Dose: 400 mg Documented by: Prochlorperazine Edisylate (Compazine Iv) 5 mg IV Q4H PRN PRN PRN Reason: Breakthrough Nausea/Vomiting Sodium Chloride () 10 - 40 ml IV UD PRN PRN Reason: SALINE FLUSH Last Admin: 03/29/20 07:02 Dose: 10 ml Documented by: Throat Lozenges (Cepacol Sore Throat Lozenge) 1 lozenge MUCOUS MEM Q2H PRN PRN PRN Reason: SORE THROAT Discharge Diet: Light diet - advance as tolerated Discharge Activity: Return to Normal Activity Weight Bearing Status: Weight bearing as tolerated Keep extremity elevated above heart level: Left Leg Call your doctor if your incision/area has: Continuous Slow Oozing, Sudden Increased Bleeding, Increased Pain/ Swelling, Increased Redness, Foul Smelling Discharge Call your doctor if you observe: Fever of 101 or Higher, Calf discomfort, Uncontrolled pain Cleanse incision/area with: Soap & Water Additional Dressing/Incision Instructions:: daily Santyl and overlying Adaptic with additional Aquaphor or Vaseline applied to the peter-ulcer site Home Medications: Medications to take at Discharge Aspirin E.C. [Ecotrin] 81 mg PO QHS 11/28/19 Doxepin HCl [Sinequan] 10 mg PO QHS 11/28/19 Furosemide [Lasix] 40 mg PO DAILY PRN PRN 11/28/19 Levothyroxine [Synthroid] 137 mcg PO QHS 11/28/19 Pentoxifylline [Trental] 400 mg PO DAILY 11/28/19 Simvastatin [Zocor] 40 mg PO QHS 11/28/19 Collagenase [Santyl] 1 applic TOPICAL DAILY 03/26/20 Lactobacillus Acidophilus [Acidophilus] 2 tab PO BID 03/26/20 Metoprolol Tartrate 50 mg PO DAILY 03/26/20 Metoprolol Tartrate [Lopressor (beta mehran)] 100 mg PO QHS 03/26/20 Ciprofloxacin [Cipro] 500 mg PO BID #8 tab 03/29/20 metroNIDAZOLE [Flagyl] 500 mg PO Q8H #12 tab 03/29/20 Following Prescrptions Were Given to Patient: Ciprofloxacin [Cipro] 500 mg PO BID #8 tab Transmission Status: Received by [facility] metroNIDAZOLE [Flagyl] 500 mg PO Q8H #12 tab Transmission Status: Received by [facility] Primary Care Physician: Boo Saunders MD [Primary Care Provider] - Please follow up with your Primary Care Physician in: 1 Week Please Follow Up With: Clinic,Wound When: 1 week w/ Dr. Cooper. Call [phone] sooner if questions or concerns. Please Follow Up With: Yefri Rubio MD When: Call Wednesday to schedule outpatient colonoscopy Disposition: Home Minutes spent on discharge:: 35 Patient Condition:: Stable Medical Necessity - Tobacco Use Smoking Status: Former smoker - Patient quit remotely but cannot give exact year. Tobacco Use: Non-smoker Meaningful Use Info Meaningful Use Diagnoses (Choose all that apply): None applicable <Boo Juarez - Last Filed: 03/29/20 12:35> Discharge Date and Diagnosis - Secondary Discharge Diagnosis Chronic Problems: Chronic Problems Ulcer of left lower extremity with fat layer exposed (Chronic) Delayed wound healing (Chronic) Venous insufficiency (Chronic) left Greater saphenous vein Other specified peripheral vascular diseases (Chronic) bilateral lower extremity Left leg pain (Chronic) Leg edema, left (Chronic) Colonization status (Chronic) MVP (mitral valve prolapse) (Chronic) Thyroid disorder (Chronic) HTN (hypertension) (Chronic) HLD (hyperlipidemia) (Chronic) Former tobacco use (Chronic) Sinus tachycardia (Chronic) Hospital Course and Treatment Consultations 03/26/20 23:13 Consult: Onc/Wound/golf cart mechanic Routine Comment: Summary of Care Provided: This patient was seen in conjunction with JACOB Freeman . I have independently interviewed and examined the patient and reviewed pertinent historical, laboratory, and other data. Please refer to JACOB Freeman note for details of this patient's presentation, findings, and recommendations. I have reviewed JACOB Freeman note and concur with documented findings. In brief, Patient is a 69-year-old lady who presented with a 3-day history of diarrhea fever as well as cough Assessment: 1. Acute colitis 2. Suspected viral syndrome COVID 19 ruled out 3. Left lower extremity cellulitis 4. Hypokalemia 5. Hyponatremia 6. History of C. difficile colitis 7. Hypothyroidism 8. Essential hypertension 9. Dyslipidemia 10. DVT prophylaxis ~ on enoxaparin Hospital course: As documented above - Physical Exam Vitals/I&O's: Vital Signs Temp Pulse Resp BP Pulse Ox 98.3 F 103 H 16 128/64 H 96 03/29/20 09:19 03/29/20 11:07 03/29/20 11:06 03/29/20 09:24 03/29/20 09:19 Oxygen Flow Rate (L/min) 2 Oxygen Delivery Method Room Air Weight: 66.8 kg Body Mass Index (BMI) 30.7 Intake and Output for Last 24 Hours 03/27/20 03/28/20 03/29/20 23:59 23:59 23:59 Intake Total 2795 / 2795 3356.67 / 3356.67 1325 / 1325 Output Total 0 / 0 Balance 2795 / 2795 3356.67 / 3356.67 1325 / 1325 Microbiology Past 72 Hours 03/27/20 00:15 Wound - Leg, Left Gram Stain - Final 03/27/20 00:15 Wound - Leg, Left Wound Culture - Final Pseudomonas aeroginosa 03/26/20 15:45 Blood Culture (Wb) - Anticubital Right Blood Culture - Preliminary No growth in 48 hours. 03/26/20 15:30 Blood Culture (Wb) - Anticubital Left Blood Culture - Preliminary No growth in 48 hours. 03/27/20 17:20 Stool C. difficile DNA Amplification - Final 03/26/20 16:35 Stool Enteric Bacteriology - Final 03/26/20 16:35 Stool C. difficile DNA Amplification - Final 03/26/20 16:05 Mucosa - Nasopharyngeal Coronavirus COVID-19 PCR - Final Laboratory Results 03/29/20 06:37: WBC 11.7 H, RBC 3.81 L, Hgb 10.8 L, Hct 34.7 L, MCV 91.1, MCH 28.3, MCHC 31.1 L, RDW Std Deviation 47.7 H, RDW Coeff of Naseem 14.4, Plt Count 384, MPV 8.9 03/29/20 06:37: Sodium 140, Potassium 3.5, Chloride 110 H, Carbon Dioxide 25.0, Anion Gap 5, BUN 3 L, Creatinine 0.28 L, Estim Creat Clear Calc 54.41, Est GFR (MDRD) Af Amer 308, Est GFR (MDRD) Non-Af 254, BUN/Creatinine Ratio 10.8, Glucose 96, Calcium 8.2 L Current Medications Acetaminophen (Tylenol) 650 mg PO Q6H PRN PRN PRN Reason: Pain Score 1-10/Temp > 100.7 F Last Admin: 03/27/20 04:35 Dose: 650 mg Documented by: Al Hydroxide/Mg Hydroxide (Mylanta Ii) 30 ml PO Q6H PRN PRN PRN Reason: Gastric Burning Albuterol Sulfate (Ventolin Aerosols) 2.5 mg INHALATION Q2H PRN PRN PRN Reason: Dyspnea, wheezing Last Admin: 03/29/20 11:06 Dose: 2.5 mg Documented by: Aspirin (Ecotrin) 81 mg PO QHS [facility] Last Admin: 03/28/20 21:48 Dose: 81 mg Documented by: Atorvastatin Calcium (Lipitor) 20 mg PO QHS [facility] Last Admin: 03/28/20 21:49 Dose: 20 mg Documented by: Collagenase (Santyl) 1 applic TOPICAL DAILY [facility]; Protocol Last Admin: 03/29/20 09:24 Dose: 1 applicatio Documented by: Dextrose (D50w Syringe) 0 gm IV X1 PRN; Protocol PRN Reason: Hypoglycemia Doxepin HCl (Sinequan) 10 mg PO QHS [facility] Last Admin: 03/28/20 21:50 Dose: 10 mg Documented by: Enoxaparin Sodium (Lovenox) 70 mg SC Q12@1000,2200 [facility] Last Admin: 03/29/20 09:23 Dose: 70 mg Documented by: Glucagon () 1 mg IM .X1 PRN PRN Reason: Hypoglycemia Guaifenesin (Robitussin) 20 ml PO Q4H PRN PRN PRN Reason: COUGH Hydralazine HCl (Apresoline Iv) 10 mg IV Q4H PRN PRN PRN Reason: SBP > 160 Meropenem 1 gm/ Sodium (Chloride) 120 mls @ 33 mls/hr IV Q8@0200,1000,1800 [facility] Last Admin: 03/29/20 09:23 Dose: 33 mls/hr Documented by: Sodium Chloride () 250 mls @ 15 mls/hr IV .[id number] PRN PRN Reason: Saline Flush Sodium Chloride () 250 mls @ 15 mls/hr IV .[id number] PRN PRN Reason: Additional IVPB Infusion Lactobacillus Acidophilus (Acidophilus) 1 tablet PO BID [facility] Last Admin: 03/29/20 09:23 Dose: 1 tablet Documented by: Levothyroxine Sodium (Synthroid) 137 mcg PO QHS [facility] Last Admin: 03/28/20 21:50 Dose: 137 mcg Documented by: Melatonin (Melatonin) 3 mg PO QHS PRN PRN PRN Reason: INSOMNIA Metoprolol Tartrate (Lopressor (Beta Mehran)) 50 mg PO DAILY [facility] Last Admin: 03/29/20 09:24 Dose: 50 mg Documented by: Metoprolol Tartrate (Lopressor (Beta Mehran)) 100 mg PO QHS [facility] Last Admin: 03/28/20 21:49 Dose: 100 mg Documented by: Morphine Sulfate () 2 mg IV Q3H PRN PRN PRN Reason: Pain Score 6-10/10 Nitroglycerin (Nitrostat) 0.4 mg SUBLINGUAL Q5M PRN PRN Reason: CARDIAC/CHEST PAIN Nutritional Formula (Lactose Free) (Ensure Clear) 120 ml PO 4X/DAY [facility] Last Admin: 03/29/20 09:23 Dose: 120 ml Documented by: Ondansetron HCl (Zofran) 4 mg IV Q8H PRN PRN PRN Reason: NAUSEA/VOMITING Oxycodone HCl (Oxyir) 5 mg PO Q4H PRN PRN PRN Reason: Pain Score 4-5/10 Pentoxifylline (Trental) 400 mg PO DAILY [facility] Last Admin: 03/29/20 09:23 Dose: 400 mg Documented by: Prochlorperazine Edisylate (Compazine Iv) 5 mg IV Q4H PRN PRN PRN Reason: Breakthrough Nausea/Vomiting Sodium Chloride () 10 - 40 ml IV UD PRN PRN Reason: SALINE FLUSH Last Admin: 03/29/20 07:02 Dose: 10 ml Documented by: Throat Lozenges (Cepacol Sore Throat Lozenge) 1 lozenge MUCOUS MEM Q2H PRN PRN PRN Reason: SORE THROAT Inpatient E&M: [id number] [facility]
--- NOTE | 2020-03-29 11:31 | CASEMGMT ---
This RN CM to room to discuss discharge plan with pt at this time. Pt states no concerns with going home at time of discharge and pt declines need for HHC at this time. Pt states that her sister will be staying with her and her and will assist pt with any needs. Pt states her sister or daughter can do dressing changes as needed and daughter has been bringing her to wound clinic appts. Pt states no further questions/concerns/needs at this time. SStaten ELEUTERIO BUSTILLOS
--- NOTE | 2020-03-29 11:40 | PHA.DC.MC ---
Pharmacy Service has performed discharge medication reconciliation and counseling for this patient. 1. CIPROFLOXACIN 500MG PO BID X 4 DAYS 2. METRONIDAZOLE 500MG PO Q8H X 4 DAYS While speaking with the patient, she told this PharmD she took Cipro in October (confirmed by pharmacy fill history) and it gave her C diff. This PharmD spoke with PROGRAM EVALUATOR Margarita regarding this. Pt is growing pseudomonas in would culture and a fluoroquinolone is the only oral option. Okay for patient to take short course. The patient's discharge medication list was reviewed for discrepancies and discrepancies were resolved. Home Medications Aspirin E.C. [Ecotrin] 81 mg PO QHS 11/28/19 Doxepin HCl [Sinequan] 10 mg PO QHS 11/28/19 Furosemide [Lasix] 40 mg PO DAILY PRN PRN 11/28/19 Levothyroxine [Synthroid] 137 mcg PO QHS 11/28/19 Pentoxifylline [Trental] 400 mg PO DAILY 11/28/19 Simvastatin [Zocor] 40 mg PO QHS 11/28/19 Collagenase [Santyl] 1 applic TOPICAL DAILY 03/26/20 Lactobacillus Acidophilus [Acidophilus] 2 tab PO BID 03/26/20 Metoprolol Tartrate 50 mg PO DAILY 03/26/20 Metoprolol Tartrate [Lopressor (beta stefany)] 100 mg PO QHS 03/26/20 Ciprofloxacin [Cipro] 500 mg PO BID #8 tab 03/29/20 metroNIDAZOLE [Flagyl] 500 mg PO Q8H #12 tab 03/29/20 The patient was counseled on the following discharge medications and changes in medications for homegoing were reviewed. The Reason for Use, instructions for use, and potential side effects were reviewed for all new medications. The patient's questions regarding all of their medications were answered. The patient was able to verbally demonstrate an understanding of their discharge medications.
--- NOTE | 2020-03-29 13:11 | NURSING ---
Pt is being discharged to home and states she wants to shower when she gets home. states daughter will change the left leg dressing after her shower. pt denies further needs at this time.
--- NOTE | 2020-04-02 14:03 | CASEMGMT ---
ELEUTERIO BUSTILLOS DC PHONE CALL DC DATE: 03.29.2020 DC DISPOSITION: Home DC DIAGNOSIS: Acute Colitis LACE/STRATA: 10/10 F/U APPTS MADE PRIOR TO DC: yes PRESCRIPTIONS ACQUIRED BY PT: yes Intro role of CM to patient. She states she is doing well, no concerns except her stool is still soft. ELEUTERIO BUSTILLOS let her know to contact PCP if concerning and pt states she does have an appointment. No care improvement suggestions were given, and no further questions. Dylan FUENTES RN ACM
== END 2020-03-29 13:52 | disposition home or self-care (01) | DRG 392 ==
LOC: ED 20:23 → ICU 03-27 07:07 → PCU 03-27 17:49
PROVIDERS: Internal Medicine Infectious Disease; Nurse Practitioner Family; Admitting Provider Family Medicine; Emergency Provider Emergency Medicine; Visit Provider Internal Medicine
DX: K52.9 Noninfective gastroenteritis and colitis, unspecified (principal); L97.921 Non-pressure chronic ulcer of unspecified part of left lower leg limited to breakdown of skin; L03.116 Cellulitis of left lower limb; L97.922 Non-pressure chronic ulcer of unspecified part of left lower leg with fat layer exposed; E87.1 Hypo-osmolality and hyponatremia; E78.5 Hyperlipidemia, unspecified; I10 Essential (primary) hypertension; E03.9 Hypothyroidism, unspecified; E87.6 Hypokalemia; E86.1 Hypovolemia; Z87.19 Personal history of other diseases of the digestive system; I87.2 Venous insufficiency (chronic) (peripheral); I73.89 Other specified peripheral vascular diseases; I34.1 Nonrheumatic mitral (valve) prolapse; Z87.891 Personal history of nicotine dependence
CPT/HCPCS: 36415; 71045; 73590; 74177; 80048; 80053; 81001; 82550; 82728; 83605; 83615; 83690; 83735; 84145; 84484; 85025; 85027; 85379; 86140; 87040; 87070; 87077; 87186; 87205; 87493; 87506; 87635; 87640; 87641; 93005; 93970; 94640; 96360; 96361; 97110; 97162; 97166; 97530; 97803; 99251; 99285; G2023; J2185; J7030; J7050; Q9967; A4216; G0463; U0004

== ENCOUNTER 2020-04-03 13:00 | Outpatient (RCR) | payer MEDICARE, OTHER, SELFPAY ==
[2020-03-08 00:13] VITALS: BP 137/63; PULSE 106; RESP 20; TEMP 37.3
[2020-03-13 14:49] VITALS: BP 143/67; PULSE 106; RESP 18; TEMP 37.2; BMI 30.6
--- NOTE | 2020-03-13 16:15 | PCM.WC.PN ---
(1) Ulcer of left lower extremity with fat layer exposed Status: Chronic Current Visit: Yes Code(s): L97.922 - Non-pressure chronic ulcer of unspecified part of left lower leg with fat layer exposed (2) Delayed wound healing Status: Chronic Current Visit: Yes Code(s): T14.8XXD - Other injury of unspecified body region, subsequent encounter (3) Other specified peripheral vascular diseases Status: Chronic Current Visit: Yes Code(s): I73.89 - Other specified peripheral vascular diseases Comment: bilateral lower extremity (4) Left leg pain Status: Chronic Current Visit: Yes Code(s): M79.605 - Pain in left leg (5) Leg edema, left Status: Chronic Current Visit: Yes Code(s): R60.0 - Localized edema (6) Colonization status Status: Inactive Current Visit: Yes Code(s): Z22.9 - Carrier of infectious disease, unspecified Type of Wound Date of Service: 03/13/20 Chief Complaint: Left leg ulcer History of Wound: This 69-year-old female with significant past medical history of polio with several medical sequela sustained a left leg ulcer that dates back to 2015. She has had periods of intermittent healing and this has returned on numerous occasions. She had a second application of epi-fix applied last week and kept this clean and intact. She had her arterial and venous studies performed previously and these were reviewed at prior visits. Her pain is mild to moderate. She was seen by Dr. Morel, vascular surgeon who recommended EDUARDO studies and additional left leg duplex prior to proceeding with additional intervention with angiogram versus other procedure. She did have advanced imaging performed and now intervention is not recommended based off of the new scan results. She is advised to continue with her comprehensive wound healing plan. Compression was also recommended. She has been able to improve her compression and wearing Candelario wrap as advised. She denies odor or redness or purulent drainage. Progress of Wound: Stable - Physical Exam Vital Signs Temp Pulse Resp BP 98.9 F 106 H 18 143/67 H 03/13/20 14:49 03/13/20 14:49 03/13/20 14:49 03/13/20 14:49 General: Alert, Oriented x3, Cooperative, No apparent distress Extremities: No cyanosis, Capillary Refill Less than 3 Seconds, No Calf Tenderness, Diminished Peripheral Pulses, Edema Skin: Ulcer/ Wound - No purulence, erythema, streaking, odor, infection. The peripheral skin is hairless and atrophic with some hypopigmentation. The ulcer base is a mixture of granulation tissue and fibrous tissue. The adjacent medial ulcer site has some subcutaneous tissue exposed in a clustered manner and also some subtle hemorrhagic tissue. There is no deep tissue exposed, eschar, or necrosis. Wound Measurements and Assessment WC - Nurse 1 - General Ulcer Measurement Start: 03/13/20 14:49 Freq: Status: Active Protocol: Activity Type Activity Date Activity User E-Sign Co-Sign Detail Recorded Client Recorded Date Recorded By Document 03/13/20 14:49 PL [id number] 03/13/20 15:08 PL 03/13/20 14:49 Wound Center Nurse 1 [Ulcer Assessment] #2 LLE medial -Combined with other wound No -Current Size (cm) - Length 6.0 -Current Size (cm) - Width 5.0 -Current Size (cm) - Depth 0.1 -Total Square Cm 30.00 -Photo Taken No -Epithelialization None Present -Tunneling No -Undermining/Tunneling No -Exudate Amt Medium -Exudate Type Serosanguineous -Granulation Amt Large (67-100%) -Granulation Quality [place],Red -Necrosis Amt Small (1-33%) -Necrotic Tissue Type Adherent Slough -Temperature (Susana-wound Skin No Abnormality Appearance) (Pt Warm) -Ulcer Cleansing Rinsed/ Irrigated with Saline -Anesthetic Used 5% Lidocaine Gel #1 LLE -Combined with other wound No -Current Size (cm) - Length 7.0 -Current Size (cm) - Width 4.5 -Current Size (cm) - Depth 0.3 -Total Square Cm 31.50 -Photo Taken No -Epithelialization None Present -Tunneling No -Undermining/Tunneling No -Exudate Amt Medium -Exudate Type Serosanguineous -Granulation Amt Large (67-100%) -Granulation Quality [place] -Slough/Fibrin Yes -Necrosis Amt Small (1-33%) -Necrotic Tissue Type Adherent Slough -Ulcer Cleansing Rinsed/ Irrigated with Saline -Anesthetic Used 5% Lidocaine Gel WC - Nurse 2 - General Ulcer CM Notes Start: 03/13/20 14:49 Freq: Status: Active Protocol: Activity Type Activity Date Activity User E-Sign Co-Sign Detail Recorded Client Recorded Date Recorded By Document 03/13/20 15:28 JF [id number] 03/13/20 15:35 JF 03/13/20 15:28 Wound Center Nurse 2 [Procedure/Treatment] #2 LLE medial -Time 15:29 -Correct Patient Yes -Correct Side, Site, Position Yes -Correct Procedure Yes -Procedure Performed Yes -Type of Procedure Debridement -Clinical Debridement Subcutaneous -Post Debridement Size (cm) - Length 6.1 -Post Debridement Size (cm) - Width 5 -Post Debridement Size (cm) - Depth 0.1 -Total Square Cm 30.5 -Wound/Ulcer Outcome Not Healed -Ulcer Cleansing Rinsed/ Irrigated with Saline -Foul Odor after Cleansing No -Bioengineered Tissue No -Bleeding Controlled with Pressure -Offloading No -Treatment Response Procedure Tolerated Well #1 LLE -Time 15:29 -Correct Patient Yes -Correct Side, Site, Position Yes -Correct Procedure Yes -Procedure Performed Yes -Type of Procedure Debridement -Clinical Debridement Subcutaneous -Post Debridement Size (cm) - Length 7 -Post Debridement Size (cm) - Width 4.6 -Post Debridement Size (cm) - Depth 0.3 -Total Square Cm 32.2 -Wound/Ulcer Outcome Not Healed -Ulcer Cleansing Rinsed/ Irrigated with Saline -Foul Odor after Cleansing No -Bioengineered Tissue No -Bleeding Controlled with Pressure -Offloading No -Treatment Response Procedure Tolerated Well [See Physician Procedure note for Specifics] Pain Scale: 0-10 Numeric [Pain] -Is Patient Pain Free? Yes Musculoskeletal: No Tenderness to Palpation of Joints or Extremities, Muscle Wasting, - - Compartment soft to palpate Neurological: Sensory exam intact to light touch and pain - Hypersensitivity Psych/Mental Status: Normal Affect, Appropriate Debridement Note Post-Debridement Measurements/Treatment WC - Nurse 2 - General Ulcer CM Notes Start: 03/13/20 14:49 Freq: Status: Active Protocol: Activity Type Activity Date Activity User E-Sign Co-Sign Detail Recorded Client Recorded Date Recorded By Document 03/13/20 15:28 [email or web address] [id number] 03/13/20 15:35 JF 03/13/20 15:28 Wound Center Nurse 2 #2 LLE medial -Time 15:29 -Correct Patient Yes -Correct Side, Site, Position Yes -Correct Procedure Yes -Procedure Performed Yes -Type of Procedure Debridement -Clinical Debridement Subcutaneous -Post Debridement Size (cm) - Length 6.1 -Post Debridement Size (cm) - Width 5 -Post Debridement Size (cm) - Depth 0.1 -Total Square Cm 30.5 -Wound/Ulcer Outcome Not Healed -Ulcer Cleansing Rinsed/ Irrigated with Saline -Foul Odor after Cleansing No -Bioengineered Tissue No -Bleeding Controlled with Pressure -Offloading No -Treatment Response Procedure Tolerated Well #1 LLE -Time 15:29 -Correct Patient Yes -Correct Side, Site, Position Yes -Correct Procedure Yes -Procedure Performed Yes -Type of Procedure Debridement -Clinical Debridement Subcutaneous -Post Debridement Size (cm) - Length 7 -Post Debridement Size (cm) - Width 4.6 -Post Debridement Size (cm) - Depth 0.3 -Total Square Cm 32.2 -Wound/Ulcer Outcome Not Healed -Ulcer Cleansing Rinsed/ Irrigated with Saline -Foul Odor after Cleansing No -Bioengineered Tissue No -Bleeding Controlled with Pressure -Offloading No -Treatment Response Procedure Tolerated Well Pain Scale: 0-10 Numeric Is Patient Pain Free? Yes Wound debrided: medial and anterior leg Laterality: Left Type of Debridement: Excisional debridement Anesthesia Used: 5% Lidocaine Gel Depth: in the subcutaneous layer Percentage of wound debrided: 100 Instrument Used: #15 blade Tissue Removed: fibrous, devitalized subcutaneous, biofilm, slough Severity: Fat Layer Exposed Amount of bleeding with debridement: Mild Bleeding Controlled with: Pressure Patient tolerated procedure well Assessment/Plan Active Problems Ulcer of left lower extremity with fat layer exposed (Chronic) Delayed wound healing (Chronic) Other specified peripheral vascular diseases (Chronic) bilateral lower extremity Left leg pain (Chronic) Leg edema, left (Chronic) Assessment: Left leg ulcer with fat layer exposed, lack of local infection signs. Anterior medial leg, left -no infection. Bacterial colonization process in work-up. Leg edema. Venous insufficiency. Peripheral vascular disease with intervention pending. Delayed healing. Malnutrition suspected Plan: I reviewed and discussed her case today. Debridement was performed today as noted in the clinical panel. She was informed there are no signs of infection. Is okay to moisturize adjacent skin with lotion such as Aquaphor. She was advised to wash his feet daily with Dial soap and water. I recommend taking a break from the epi-fix for 1 week due to her reported copious increasing drainage. To change dressing daily with Adaptic with overlying aqua cell and secondary dressings. I also obtained an aerobic, anaerobic, and MRSA PCR culture to see if there is any bacterial colonization that may be contributing to her delayed healing. She does have a history of C. difficile and is really apprehensive to take antibiotics. Pending the culture results I will consider if that is necessary or or if we can use a medical grade antimicrobial soap instead. I recommend she proceed with work-up for both arterial and venous disease. Venous reflux evaluation test was ordered. She was advised to avoid idle sitting and standing and to elevate the limb to control edema. If she has continued pain particularly with leg elevation, I recommend she intermittently dangles the leg as well. I also recommend she proceeds with noninvasive arterial study. This was performed and she will proceed with the recommended tests by vascular surgery prior to additional intervention. I reviewed Dr. Morel's plan and documentation. She additionally had an updated test performed and intervention is not recommended at this time from an arterial standpoint. She will follow-up in 6 months to see if it is warranted at that time or needed. To d/c tubigrip due to inability to tolerate. I recommend at least continuing with the use of an Candelario wrap and this was applied again today. It appears she does have some mild form of venous insufficiency after reviewing her venous Doppler exam. She does also have significant bilateral lower extremity monophasic waveforms with ABIs of around 0.5 bilaterally. I also recommend updated labs including CBC, CMP, and prealbumin to assess her current medical status. Leukocytosis was noted and this will be monitored pending clinical progression. Her prealbumin was 19.8 and proper nutrition and supplementation was reviewed. An order was provided previously and she was advised to obtain. To proceed with a proper control diet and nutrition supplementation to optimize healing. I answered all of her questions and explained the etiology of ulcer causes and the comprehensive wound healing plan. To return to clinic in 1 week. She would benefit from serial debridement and application of advanced wound healing product to prevent limb loss. This is medically necessary. . 2020 quality measures reviewed as the following: Reviewed today-pain level was confirmed in follow-up plan was documented, medication and allergy reconciliation was performed. Reviewed 12-27-2019: She denies falling this past year. Reviewed 11/15/2019-pneumonia vaccination was confirmed, influenza immunization was confirmed for this current season in July 2019, advanced care plan was confirmed with living will, she is a current tobacco non user, her blood pressure is elevated over 120/80 and I recommend she follows up with her primary care physician for medical management of this. Diet and exercise benefits were also discussed for educational purposes to optimize her wound healing and medical management.
[2020-03-20 15:30] VITALS: BP 143/81; PULSE 109; RESP 18; TEMP 36.7; BMI 30.6
--- NOTE | 2020-03-20 23:12 | PCM.WC.PN ---
(1) Ulcer of left lower extremity with fat layer exposed Status: Chronic Current Visit: Yes Code(s): L97.922 - Non-pressure chronic ulcer of unspecified part of left lower leg with fat layer exposed (2) Delayed wound healing Status: Chronic Current Visit: Yes Code(s): T14.8XXD - Other injury of unspecified body region, subsequent encounter (3) Other specified peripheral vascular diseases Status: Chronic Current Visit: Yes Code(s): I73.89 - Other specified peripheral vascular diseases Comment: bilateral lower extremity (4) Left leg pain Status: Chronic Current Visit: Yes Code(s): M79.605 - Pain in left leg (5) Leg edema, left Status: Chronic Current Visit: Yes Code(s): R60.0 - Localized edema (6) Colonization status Status: Inactive Current Visit: Yes Code(s): Z22.9 - Carrier of infectious disease, unspecified Type of Wound Date of Service: 03/20/20 Chief Complaint: Left leg ulcer History of Wound: This 69-year-old female with significant past medical history of polio with several medical sequela sustained a left leg ulcer that dates back to 2015. She has had periods of intermittent healing and this has returned on numerous occasions. She took a break from epi-fix applications last week due to increased drainage and pain. She had her arterial and venous studies performed previously and these were reviewed at prior visits. Her pain is now moderate to severe. She was seen by Dr. Morel, vascular surgeon who recommended EDUARDO studies and additional left leg duplex prior to proceeding with additional intervention with angiogram versus other procedure. She did have advanced imaging performed and now intervention is not recommended based off of the new scan results. She is advised to continue with her comprehensive wound healing plan. Compression was also recommended. She has been able to improve her compression and wearing Candelario wrap as advised. She denies odor or redness or purulent drainage. She is with her daughter today. Progress of Wound: Worse - Physical Exam Vital Signs Temp Pulse Resp BP 98.1 F 109 H 18 143/81 H 03/20/20 15:30 03/20/20 15:30 03/20/20 15:30 03/20/20 15:30 General: Alert, Oriented x3, Cooperative, No apparent distress Extremities: No cyanosis, Capillary Refill Less than 3 Seconds, No Calf Tenderness, Diminished Peripheral Pulses, Edema Skin: Ulcer/ Wound - No purulence, erythema, streaking, odor, bogginess or fluctuance on palpation. There is increased drainage and adjacent skin compromise now with some hemorrhagic tissue exposed to the lateral and anterior margins of the initial ulcer bed. The ulcer bed is granular and fibrous. There is no eschar. The adjacent skin is very hairless and atrophic Wound Measurements and Assessment WC - Nurse 1 - General Ulcer Measurement Start: 03/13/20 14:49 Freq: Status: Active Protocol: Activity Type Activity Date Activity User E-Sign Co-Sign Detail Recorded Client Recorded Date Recorded By Document 03/20/20 15:30 DV [id number] 03/20/20 15:47 DV 03/20/20 15:30 Wound Center Nurse 1 [Ulcer Assessment] #2 LLE medial -Combined with other wound No -Current Size (cm) - Length 6.2 -Current Size (cm) - Width 5.1 -Current Size (cm) - Depth 0.1 -Total Square Cm 31.62 -Photo Taken No -Epithelialization None Present -Tunneling No -Undermining/Tunneling No -Circular Undermining No -Classification - Thickness Full Thickness without Exposed Support Structure -Exudate Amt Large -Exudate Type Serosanguineous -Wound Margin Indistinct, Non -Visible -Granulation Amt None Present (0 %) -Granulation Quality N/A -Slough/Fibrin Yes -Necrosis Amt Large (67-100%) -Necrotic Tissue Type Adherent Slough -Structure Exposed None/Limited to Skin Breakdown -Texture (Susana-wound Skin Appearance) Assessed, Scarring -Moisture (Susana-wound Skin Appearance Assessed, ) Weeping -Color (Susana-wound Skin Appearance) Assessed, Erythema -Temperature (Susana-wound Skin No Abnormality Appearance) (Pt Warm) -Ulcer Cleansing Rinsed/ Irrigated with Saline -Foul Odor after Cleansing No -Anesthetic Used 5% Lidocaine Gel #1 LLE -Combined with other wound No -Current Size (cm) - Length 6.9 -Current Size (cm) - Width 5.0 -Current Size (cm) - Depth 0.1 -Total Square Cm 34.50 -Photo Taken No -Epithelialization None Present -Tunneling No -Undermining/Tunneling No -Circular Undermining No -Classification - Thickness Full Thickness without Exposed Support Structure -Wound Margin Indistinct, Non -Visible -Granulation Amt None Present (0 %) -Granulation Quality N/A -Necrosis Amt Large (67-100%) -Necrotic Tissue Type Adherent Slough -Structure Exposed None/Limited to Skin Breakdown -Texture (Susana-wound Skin Appearance) Assessed, Scarring -Moisture (Susana-wound Skin Appearance Assessed, ) Weeping -Color (Susana-wound Skin Appearance) Assessed, Erythema -Temperature (Susana-wound Skin No Abnormality Appearance) (Pt Warm) -Ulcer Cleansing Rinsed/ Irrigated with Saline -Foul Odor after Cleansing No -Anesthetic Used 5% Lidocaine Gel WC - Nurse 2 - General Ulcer CM Notes Start: 03/13/20 14:49 Freq: Status: Active Protocol: Activity Type Activity Date Activity User E-Sign Co-Sign Detail Recorded Client Recorded Date Recorded By Document 03/20/20 16:02 JF [id number] 03/20/20 16:04 JF 03/20/20 16:02 Wound Center Nurse 2 [Procedure/Treatment] #2 LLE medial -Time 16:02 -Correct Patient Yes -Correct Side, Site, Position Yes -Correct Procedure Yes -Procedure Performed Yes -Type of Procedure Debridement -Clinical Debridement Subcutaneous -Post Debridement Size (cm) - Length 6.2 -Post Debridement Size (cm) - Width 5.2 -Post Debridement Size (cm) - Depth 0.1 -Total Square Cm 32.24 -Wound/Ulcer Outcome Not Healed -Ulcer Cleansing Rinsed/ Irrigated with Saline -Foul Odor after Cleansing No -Bioengineered Tissue No -Bleeding Controlled with Pressure -Offloading No -Treatment Response Procedure Tolerated Well #1 LLE -Time 16:03 -Correct Patient Yes -Correct Side, Site, Position Yes -Correct Procedure Yes -Procedure Performed Yes -Type of Procedure Debridement -Clinical Debridement Subcutaneous -Post Debridement Size (cm) - Length 6.9 -Post Debridement Size (cm) - Width 5.1 -Post Debridement Size (cm) - Depth 0.1 -Total Square Cm 35.19 -Wound/Ulcer Outcome Not Healed -Ulcer Cleansing Rinsed/ Irrigated with Saline -Foul Odor after Cleansing No -Bioengineered Tissue No -Bleeding Controlled with Pressure -Offloading No -Treatment Response Procedure Tolerated Well [See Physician Procedure note for Specifics] Pain Scale: 0-10 Numeric [Pain] -Is Patient Pain Free? 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 Neurological: Sensory exam intact to light touch and pain - Hypersensitivity Psych/Mental Status: Normal Affect, Appropriate Debridement Note Post-Debridement Measurements/Treatment WC - Nurse 2 - General Ulcer CM Notes Start: 03/13/20 14:49 Freq: Status: Active Protocol: Activity Type Activity Date Activity User E-Sign Co-Sign Detail Recorded Client Recorded Date Recorded By Document 03/13/20 15:28 [id number] 03/13/20 15:35 Document 03/20/20 16:02 [id number] 03/20/20 16:04 03/13/20 03/20/20 15:28 16:02 Wound Center Nurse 2 #2 [facility] medial -Time 15:29 16:02 -Correct Patient Yes Yes -Correct Side, Site, Position Yes Yes -Correct Procedure Yes Yes -Procedure Performed Yes Yes -Type of Procedure Debridement Debridement -Clinical Debridement Subcutaneous Subcutaneous -Post Debridement Size (cm) - Length 6.1 6.2 -Post Debridement Size (cm) - Width 5 5.2 -Post Debridement Size (cm) - Depth 0.1 0.1 -Total Square Cm 30.5 32.24 -Wound/Ulcer Outcome Not Healed Not Healed -Ulcer Cleansing Rinsed/ Rinsed/ Irrigated with Irrigated with Saline Saline -Foul Odor after Cleansing No No -Bioengineered Tissue No No -Bleeding Controlled with Pressure Pressure -Offloading No No -Treatment Response Procedure Procedure Tolerated Well Tolerated Well #1 LLE -Time 15:29 16:03 -Correct Patient Yes Yes -Correct Side, Site, Position Yes Yes -Correct Procedure Yes Yes -Procedure Performed Yes Yes -Type of Procedure Debridement Debridement -Clinical Debridement Subcutaneous Subcutaneous -Post Debridement Size (cm) - Length 7 6.9 -Post Debridement Size (cm) - Width 4.6 5.1 -Post Debridement Size (cm) - Depth 0.3 0.1 -Total Square Cm 32.2 35.19 -Wound/Ulcer Outcome Not Healed Not Healed -Ulcer Cleansing Rinsed/ Rinsed/ Irrigated with Irrigated with Saline Saline -Foul Odor after Cleansing No No -Bioengineered Tissue No No -Bleeding Controlled with Pressure Pressure -Offloading No No -Treatment Response Procedure Procedure Tolerated Well Tolerated Well Pain Scale: 0-10 Numeric Is Patient Pain Free? Yes Yes Wound debrided: leg Laterality: Left Type of Debridement: Excisional debridement Anesthesia Used: 5% Lidocaine Gel Depth: in the subcutaneous layer Percentage of wound debrided: 100 Instrument Used: #15 blade Tissue Removed: fibrous, devitalized subcutaneous, biofilm, slough Severity: Fat Layer Exposed Amount of bleeding with debridement: Mild Bleeding Controlled with: Pressure Patient tolerated procedure well Assessment/Plan Active Problems Ulcer of left lower extremity with fat layer exposed (Chronic) Delayed wound healing (Chronic) Other specified peripheral vascular diseases (Chronic) bilateral lower extremity Left leg pain (Chronic) Leg edema, left (Chronic) Assessment: Left leg ulcer with fat layer exposed, lack of local infection signs. Anterior medial leg, left -no infection. Bacterial colonization with Pseudomonas. Leg edema. Venous insufficiency. Peripheral vascular disease with intervention pending. Delayed healing. Malnutrition suspected Plan: I reviewed and discussed her case today. Debridement was performed today as noted in the clinical panel. She was informed there are no overt signs of local or systemic signs of infection. It is noticed that she does have Pseudomonas contamination and colonization. I recommend addressing this with antimicrobial Cindi-Hex soap wash daily which she has used previously in the past. Additional supply was provided today. I also recommend we incorporate Dakin's solution dressing changes daily. We discussed extensively the amount of pain and increased weeping she has to offset the pain and issue of the dressing sticking to the wound bed, I encouraged Aquaphor application around the wound margin, Adaptic application with overlying Dakin soaked gauze wet-to-dry. We also discussed the potential use of antibiotics and infectious disease referral. She has a previous history of C. difficile and we are going to hold off on antibiotic oral medication at this time. I recommend taking a break from the epi-fix for 1 week due to her reported copious increasing drainage. Tramadol prescription was provided for pain management. She was advised on safe and proper use. Topical lidocaine 5% ointment was also prescribed and she was advised on safe and proper use of this as well. Her daughter is interested in hyperbaric oxygen therapy and asks if this is a treatment option for her today. We reviewed the criteria for hyperbaric oxygen in which she is not meeting these. From a lower extremity standpoint, chronic osteomyelitis or diabetic grade 3 ulcer would be considered for hyperbaric oxygen therapy under current guidelines at this time in which this patient has neither diagnosis. This was explained again today, and they both demonstrate understanding. I recommend she proceed with work-up for both arterial and venous disease. Venous reflux evaluation test was ordered. She was advised to avoid idle sitting and standing and to elevate the limb to control edema. If she has continued pain particularly with leg elevation, I recommend she intermittently dangles the leg as well. I also recommend she proceeds with noninvasive arterial study. This was performed and she will proceed with the recommended tests by vascular surgery prior to additional intervention. I reviewed Dr. Morel's plan and documentation. She additionally had an updated test performed and intervention is not recommended at this time from an arterial standpoint. She will follow-up in 6 months to see if it is warranted at that time or needed. She relates she is apprehensive to return because no intervention was initially performed. I encouraged her to keep her appointment which is scheduled for April or May because she is not demonstrating anticipated recovery and intervention may be considered at her follow-up. To d/c tubigrip due to inability to tolerate. I recommend at least continuing with the use of an Candelario wrap and this was applied again today. It appears she does have some mild form of venous insufficiency after reviewing her venous Doppler exam. She does also have significant bilateral lower extremity monophasic waveforms with ABIs of around 0.5 bilaterally. her prealbumin was 19.8 and proper nutrition and supplementation was reviewed. An order was provided previously and she was advised to obtain. To proceed with a proper control diet and nutrition supplementation to optimize healing. I answered all of her questions and explained the etiology of ulcer causes and the comprehensive wound healing plan. To return to clinic in 1 week. She would benefit from serial debridement and application of advanced wound healing product to prevent limb loss once her limb is stabilized. This is medically necessary. . 2020 quality measures reviewed as the following: Reviewed today-pain level was confirmed in follow-up plan was documented, medication and allergy reconciliation was performed. Reviewed 12-27-2019: She denies falling this past year. Reviewed 11/15/2019-pneumonia vaccination was confirmed, influenza immunization was confirmed for this current season in July 2019, advanced care plan was confirmed with living will, she is a current tobacco non user, her blood pressure is elevated over 120/80 and I recommend she follows up with her primary care physician for medical management of this. Diet and exercise benefits were also discussed for educational purposes to optimize her wound healing and medical management.
[2020-04-03 13:19] VITALS: BP 161/61; PULSE 77; RESP 18; TEMP 37.3; BMI 30.6
--- NOTE | 2020-04-03 14:47 | PN.PCM_ITS ---
(1) Ulcer of left lower extremity with fat layer exposed Status: Chronic Code(s): L97.922 - Non-pressure chronic ulcer of unspecified part of left lower leg with fat layer exposed (2) Delayed wound healing Status: Chronic Code(s): T14.8XXD - Other injury of unspecified body region, subsequent encounter (3) Other specified peripheral vascular diseases Status: Chronic Code(s): I73.89 - Other specified peripheral vascular diseases Comment: bilateral lower extremity (4) Left leg pain Status: Chronic Code(s): M79.605 - Pain in left leg (5) Leg edema, left Status: Chronic Code(s): R60.0 - Localized edema (6) Colonization status Status: Chronic Code(s): Z22.9 - Carrier of infectious disease, unspecified Type of Wound Date of Service: 04/03/20 Chief Complaint: Left leg ulcer History of Wound: This 69-year-old female with significant past medical history of polio with several medical sequela sustained a left leg ulcer that dates back to 2015. She was recently admitted at the hospital for colitis and was negative for COVID 19. She was placed on IV antibiotics. She has since stabilized and was discharged home. She has been performing dressing care as advised. She denies redness or odor. She relates her leg feels and looks better since she had a course of meropenem. She is scheduled to follow-up for an additional outpatient procedure in the outpatient setting with surgery. 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 There is progressive epithelialization to the satellite ulcer sites. There is no sb necrosis or eschar. Her adjacent skin is hairless and atrophic Wound Measurements and Assessment WC - Nurse 1 - General Ulcer Measurement Start: 03/13/20 14:49 Freq: Status: Active Protocol: Activity Type Activity Date Activity User E-Sign Co-Sign Detail Recorded Client Recorded Date Recorded By Document 04/03/20 13:19 DL [id number] 04/03/20 13:24 DL 04/03/20 13:19 Wound Center Nurse 1 [Ulcer Assessment] #2 LLE medial -Current Size (cm) - Length 6.4 -Current Size (cm) - Width 5.2 -Current Size (cm) - Depth 0.1 -Total Square Cm 33.28 -Photo Taken No -Exudate Amt Small -Exudate Type Serosanguineous -Wound Margin Indistinct, Non -Visible -Granulation Amt None Present (0 %) -Necrosis Amt Large (67-100%) -Necrotic Tissue Type Adherent Slough -Structure Exposed N/A -Texture (Susana-wound Skin Appearance) Scarring -Moisture (Susana-wound Skin Appearance Weeping,Dry/ ) Scaly -Color (Susana-wound Skin Appearance) Hemosiderin Staining -Temperature (Susana-wound Skin No Abnormality Appearance) (Pt Warm) -Tenderness on Palpation (Susana-wound No Skin Appearance) -Ulcer Cleansing Wound Cleanser -Foul Odor after Cleansing No -Anesthetic Used 4% Lidocaine Solution #1 LLE -Current Size (cm) - Length 7.3 -Current Size (cm) - Width 5.5 -Current Size (cm) - Depth 0.4 -Total Square Cm 40.15 -Photo Taken No -Exudate Amt Medium -Exudate Type Serosanguineous -Wound Margin Distinct, Outline Attached -Granulation Amt Small (1-33%) -Granulation Quality [place] -Necrosis Amt Large (67-100%) -Necrotic Tissue Type Adherent Slough -Structure Exposed N/A -Texture (Susana-wound Skin Appearance) Scarring -Moisture (Susana-wound Skin Appearance No Abnormality ) -Color (Susana-wound Skin Appearance) Hemosiderin Staining -Temperature (Susana-wound Skin No Abnormality Appearance) (Pt Warm) -Tenderness on Palpation (Susana-wound No Skin Appearance) -Ulcer Cleansing Wound Cleanser -Foul Odor after Cleansing No -Anesthetic Used 4% Lidocaine Solution [Edema Assessment] -Left Calf (cm) 33.5 -Left Ankle (cm) 21.6 WC - Nurse 2 - General Ulcer CM Notes Start: 03/13/20 14:49 Freq: Status: Active Protocol: Activity Type Activity Date Activity User E-Sign Co-Sign Detail Recorded Client Recorded Date Recorded By Document 04/03/20 13:35 [id number] 04/03/20 13:39 04/03/20 13:35 Wound Center Nurse 2 [Procedure/Treatment] #2 E medial -Time 13:36 -Correct Patient Yes -Correct Side, Site, Position Yes -Correct Procedure Yes -Procedure Performed Yes -Type of Procedure Debridement -Clinical Debridement Subcutaneous -Post Debridement Size (cm) - Length 6.5 -Post Debridement Size (cm) - Width 5.2 -Post Debridement Size (cm) - Depth 0.1 -Total Square Cm 33.80 -Wound/Ulcer Outcome Not Healed -Ulcer Cleansing Rinsed/ Irrigated with Saline -Foul Odor after Cleansing No -Bioengineered Tissue No -Bleeding Controlled with Pressure -Offloading No -Treatment Response Procedure Tolerated Well #1 LLE -Time 13:36 -Correct Patient Yes -Correct Side, Site, Position Yes -Correct Procedure Yes -Procedure Performed Yes -Type of Procedure Debridement -Clinical Debridement Subcutaneous -Post Debridement Size (cm) - Length 7.4 -Post Debridement Size (cm) - Width 5.5 -Post Debridement Size (cm) - Depth 0.4 -Total Square Cm 40.70 -Wound/Ulcer Outcome Not Healed -Ulcer Cleansing Rinsed/ Irrigated with Saline -Foul Odor after Cleansing No -Bioengineered Tissue No -Bleeding Controlled with Pressure -Offloading No -Treatment Response Procedure Tolerated Well [See Physician Procedure note for Specifics] Pain Scale: 0-10 Numeric [Pain] -Is Patient Pain Free? Yes Musculoskeletal: No Tenderness to Palpation of Joints or Extremities, Muscle Wasting Neurological: Sensory exam intact to light touch and pain Psych/Mental Status: Normal Affect, Appropriate Debridement Note Post-Debridement Measurements/Treatment WC - Nurse 2 - General Ulcer CM Notes Start: 03/13/20 14:49 Freq: Status: Active Protocol: Activity Type Activity Date Activity User E-Sign Co-Sign Detail Recorded Client Recorded Date Recorded By Document 03/13/20 15:28 [id number] 03/13/20 15:35 Document 03/20/20 16:02 [id number] 03/20/20 16:04 Document 04/03/20 13:35 [id number] 04/03/20 13:39 JF 03/13/20 03/20/20 04/03/20 15:28 16:02 13:35 Wound Center Nurse 2 #2 [facility] -Time : 16:02 13:36 -Correct Patient Yes Yes Yes -Correct Side, Site, Position Yes Yes Yes -Correct Procedure Yes Yes Yes -Procedure Performed Yes Yes Yes -Type of Procedure Debridement Debridement Debridement -Clinical Debridement Subcutaneous Subcutaneous Subcutaneous -Post Debridement Size (cm) - Length 6.1 6.2 6.5 -Post Debridement Size (cm) - Width 5 5.2 5.2 -Post Debridement Size (cm) - Depth 0.1 0.1 0.1 -Total Square Cm 30.5 32.24 33.80 -Wound/Ulcer Outcome Not Healed Not Healed Not Healed -Ulcer Cleansing Rinsed/ Rinsed/ Rinsed/ Irrigated with Irrigated with Irrigated with Saline Saline Saline -Foul Odor after Cleansing No No No -Bioengineered Tissue No No No -Bleeding Controlled with Pressure Pressure Pressure -Offloading No No No -Treatment Response Procedure Procedure Procedure Tolerated Well Tolerated Well Tolerated Well #1 [facility] -Time 15: 16:03 13:36 -Correct Patient Yes Yes Yes -Correct Side, Site, Position Yes Yes Yes -Correct Procedure Yes Yes Yes -Procedure Performed Yes Yes Yes -Type of Procedure Debridement Debridement Debridement -Clinical Debridement Subcutaneous Subcutaneous Subcutaneous -Post Debridement Size (cm) - Length 7 6.9 7.4 -Post Debridement Size (cm) - Width 4.6 5.1 5.5 -Post Debridement Size (cm) - Depth 0.3 0.1 0.4 -Total Square Cm 32.2 35.19 40.70 -Wound/Ulcer Outcome Not Healed Not Healed Not Healed -Ulcer Cleansing Rinsed/ Rinsed/ Rinsed/ Irrigated with Irrigated with Irrigated with Saline Saline Saline -Foul Odor after Cleansing No No No -Bioengineered Tissue No No No -Bleeding Controlled with Pressure Pressure Pressure -Offloading No No No -Treatment Response Procedure Procedure Procedure Tolerated Well Tolerated Well Tolerated Well Pain Scale: 0-10 Numeric Is Patient Pain Free? Yes Yes Yes Wound debrided: leg Laterality: Left Type of Debridement: Excisional debridement Anesthesia Used: 5% Lidocaine Gel Depth: in the subcutaneous layer Percentage of wound debrided: 100 Instrument Used: #15 blade Tissue Removed: fibrous, devitalized subcutaneous, biofilm, slough Severity: Fat Layer Exposed Amount of bleeding with debridement: Mild Bleeding Controlled with: Pressure Patient tolerated procedure well Assessment/Plan Assessment: Left leg ulcer with fat layer exposed, lack of local infection signs. Anterior medial leg, left -no infection. Bacterial colonization with Pseudomonas treated with antibiotics during last admission. Leg edema. Venous insufficiency. Peripheral vascular disease with intervention pending. Delayed healing. Malnutrition suspected Plan: I reviewed and discussed her case today. Debridement was performed today as noted in the clinical panel. She was informed there are no overt signs of local or systemic signs of infection. It is noticed that she does have Pseudomonas contamination and colonization. This is treated with topical antimicrobial soap and also it is noted she was placed on IV antibiotics during her hospital admission for colitis. She did test negative for both COVID-19 and also for C. difficile during her recent hospital admission. To change dressing daily with Santyl and Adaptic. It is okay to apply Aquaphor to the surrounding skin to reduce pain with dressing changes. Upon improvement of the quality of the wound bed, application of advanced wound healing product, epi-fix will be considered at future visit. To follow-up with infectious disease as advised. I recommend she proceed with work-up for both arterial and venous disease. Venous reflux evaluation test was ordered. She was advised to avoid idle sitting and standing and to elevate the limb to control edema. If she has continued pain particularly with leg elevation, I recommend she intermittently dangles the leg as well. I also recommend she proceeds with noninvasive arterial study. This was performed and she will proceed with the recommended tests by vascular surgery prior to additional intervention. I reviewed Dr. Morel's plan and documentation. She additionally had an updated test performed and intervention is not recommended at this time from an arterial standpoint. She will follow-up in 6 months to see if it is warranted at that time or needed. She relates she is apprehensive to return because no intervention was initially performed. I encouraged her to keep her appointment which is letha eduled for April or May because she is not demonstrating anticipated recovery and intervention may be considered at her follow-up. To d/c tubigrip due to inability to tolerate. I recommend at least continuing with the use of an Candelario wrap and this was applied again today. It appears she does have some mild form of venous insufficiency after reviewing her venous Doppler exam. She does also have significant bilateral lower extremity monophasic waveforms with ABIs of around 0.5 bilaterally. her prealbumin was 19.8 and proper nutrition and supplementation was reviewed. An order was provided previously and she was advised to obtain. To proceed with a proper control diet and nutrition supplementation to optimize healing. I answered all of her questions and explained the etiology of ulcer causes and the comprehensive wound healing plan. To return to clinic in 1 week. She would benefit from serial debridement and application of advanced wound healing product to prevent limb loss once her limb is stabilized. This is medically necessary. . 2020 quality measures reviewed as the following: Reviewed today-pain level was confirmed in follow-up plan was documented, medication and allergy reconciliation was performed. Reviewed 12-27-2019: She denies falling this past year. Reviewed 11/15/2019-pneumonia vaccination was confirmed, influenza immunization was confirmed for this current season in July 2019, advanced care plan was confirmed with living will, she is a current tobacco non user, her blood pressure is elevated over 120/80 and I recommend she follows up with her primary care physician for medical management of this. Diet and exercise benefits were also discussed for educational purposes to optimize her wound healing and medical management.
== END 2020-04-07 23:59 ==
LOC: WC 13:00
PROVIDERS: Referring Provider Podiatrist; Visit Provider Podiatrist
DX: I73.89 Other specified peripheral vascular diseases (principal); L97.822 Non-pressure chronic ulcer of other part of left lower leg with fat layer exposed; I87.2 Venous insufficiency (chronic) (peripheral); R60.0 Localized edema; Z86.12 Personal history of poliomyelitis; Z86.19 Personal history of other infectious and parasitic diseases
CPT/HCPCS: 11042; 11045; 87070; 87075; 87077; 87186; 87205

== ENCOUNTER 2020-04-20 14:53 | Emergency (ER) | payer MEDICARE, OTHER, SELFPAY ==
[2020-04-11 14:24] VITALS: BMI 30.7
[2020-04-20 14:56] VITALS: BP 146/73; PULSE 140; RESP 18; TEMP 37.8; O2SAT 93; BMI 26.2
--- NOTE | 2020-04-20 15:02 | EKG12_ITS ---
Test Reason : DYSRHYTHMIA Blood Pressure : / mmHG Vent. Rate : 136 BPM Atrial Rate : 136 BPM P-R Int : 128 ms QRS Dur : 060 ms QT Int : 298 ms P-R-T Axes : 054 013 051 degrees QTc Int : 448 ms Sinus tachycardia Otherwise normal ECG Confirmed by ORLIN OLIVARES, DHARA ([id number]), marketing editor LIAM CORRIGAN ([id number]) on 04/24/2020 1:05:05 PM Referred By: COSMO Confirmed By:DHARA ORDAZ MD
--- NOTE | 2020-04-20 15:03 | CT_ITS ---
STUDY: CT ABDOMEN AND PELVIS WITHOUT CONTRAST REASON FOR EXAM: Female, 69 years old. Dehydration. Abdominal pain. History of colitis. RADIATION DOSAGE (If Supplied By Facility): CTDIvol = ( 8.28 ) mGy, DLP = ( 358.04 ) mGycm TECHNIQUE: Transaxial images were obtained from the dome of the diaphragm to the symphysis pubis without oral contrast, and without intravenous contrast. Sagittal and coronal images were reconstructed. Individualized dose optimization techniques were used for this CT. COMPARISON: CT abdomen and pelvis, March 26, 2020. FINDINGS: The visualized lung bases are unremarkable. The visualized portions of the heart are within normal limits. Normal liver. There are small gallstones within an otherwise normal gallbladder. There is no biliary ductal dilatation. Normal spleen. Normal pancreas. Normal bilateral adrenal glands. Normal right kidney. Normal left kidney. Normal bilateral ureters. Normal visualized stomach. Normal small intestine. Normal proximal colon. There is lack of distention and posterior markings probably level of the splenic flexure to the rectum. There is question of minimal stranding in the pericolonic fat lateral to the colon, best seen on images 95 through 107 of series 2. The appendix is visualized and appears normal. There is diffuse atherosclerotic calcification of the abdominal aorta, without a demonstrated aneurysm. Normal inferior vena cava. Normal retroperitoneum. Normal urinary bladder. Normal uterus and adnexa. There is no pelvic lymphadenopathy. No free air or free fluid is seen within the peritoneal cavity. There are prominent bilateral inguinal nodes most marked on the left,. The largest node measures 3.8 x 1.3 x 1.2 cm. There is scoliosis and degenerative changes of the lumbar spine. There are degenerative changes of both hips most marked on the left. CT/Abdomen/Pelvis without Cont IMPRESSION: 1. Resolution of the colitis seen on prior study. There is no densities to the right colon thought to be chronic changes in the mesentery. Minimal colitis cannot be ruled out. 2. No evidence of renal, ureteral or urinary bladder abnormality. 3. Enlarged left inguinal lymph nodes when compared to prior study. 4. No other significant interval change. Electronically Signed: Anthony Barrett DO at 16:21 EDT Tel [phone], Service support ,
--- NOTE | 2020-04-20 15:21 | ED.DCSUM_ITS ---
History of Present Illness Chief Complaint: Nausea/Vomiting Informant: Patient, Family Onset: Days Current Severity: Mild Maximum Severity: Mild Narrative: Generalized weakness poor p.o. intake vomiting x1 The patient basically has multiple medical issues She has a history of a left lower extremity skin lesion that has ulcerated, failed skin grafting, she is being followed by podiatry multiple outpatient providers the area is healing slowly, as part of her ulcer care she has been on antibiotics intermittently the last time per the daughter was 3 weeks ago. Prior antibiotic therapies have resulted in her developing C. difficile She last had C. difficile a few months ago it resolved but left her with chronic diarrhea She also reports she has chronic tachycardia etiology of which is unclear the heart rate is noted to be 130 sinus rhythm here Before the patient develops full-blown C. difficile with diarrhea she has the above symptoms consisting of generalized weakness and poor p.o. intake the daughter is concerned that she might be developing signs of C. difficile. The patient denies abdominal pain no fever no cough she has no GI ailments, no history of GA PE DVT she is generally doing well at home is just the decreased p.o. intake and the vomiting x1 that had the daughter concerned, the daughter manages the wound at home and there is no significant change to the wound slightly more drainage no foul order no crepitance no bleeding The patient was seen by vascular surgery and told she did not require immediate vascular surgery and that peripheral vascular disease was contributing to poor healing Past Medical History - Allergies and Home Meds Allergies/Adverse Reactions: Allergies naproxen [From Naprosyn] Allergy (Verified 04/11/20 14:20) Rash Penicillins [PCN] Allergy (Verified 04/11/20 14:20) Rash amoxicillin Adverse Reaction (Verified 04/11/20 14:20) Rash cephalexin [From Keflex] Adverse Reaction (Verified 04/11/20 14:20) Rash clotrimazole [From Lotrimin] Adverse Reaction (Verified 04/11/20 14:20) Rash diphenhydramine [From Benadryl] Adverse Reaction (Verified 04/11/20 14:20) Rash griseofulvin Adverse Reaction (Verified 04/11/20 14:20) Rash ibuprofen [From Motrin] Adverse Reaction (Verified 04/11/20 14:20) Rash miconazole [From Monistat 1 Combo Pack] Adverse Reaction (Verified 04/11/20 14:20) Rash propranolol [From Inderal LA] Adverse Reaction (Verified 04/11/20 14:20) Rash rofecoxib [From Vioxx] Adverse Reaction (Verified 04/11/20 14:20) Rash Sulfa (Sulfonamide Antibiotics) Adverse Reaction (Verified 04/11/20 14:20) Rash Primary Care Physician: Boo Saunders MD [Primary Care Provider] - Past Medical History: - Surgical History: - - Bilateral lower extremity surgery for polio in her youth, bilateral tubal ligation. Smoking Status: Former smoker - Family History Maternal Family History: Family History (Last Reviewed 04/11/20 @ 14:[address] Yefri Rubio MD) Daughter Asthma Sister COPD (chronic obstructive pulmonary disease) Father COPD (chronic obstructive pulmonary disease) Heart disease Mother COPD (chronic obstructive pulmonary disease) Family History: Reports: Heart Disease Paternal Family History: Family History (Last Reviewed 04/11/20 @ 14:[address] Yefri Rubio MD) Daughter Asthma Sister COPD (chronic obstructive pulmonary disease) Father COPD (chronic obstructive pulmonary disease) Heart disease Mother COPD (chronic obstructive pulmonary disease) Family History: Reports: Heart Disease Review of Systems ROS: - Includes as above General: Denies: Chills, Fever, Sweats Eyes: Denies: Visual changes - bilaterally, Diplopia ENT: Denies: Rhinorrhea, Sore throat Cardiovascular: Denies: Chest pain, Palpitations Respiratory: Denies: Dyspnea, Cough, Dyspnea on exertion Gastrointestinal: Reports: Vomiting. Denies: Abdominal pain, Nausea, Diarrhea, Melena, Hematochezia Genitourinary: Denies: Dysuria, Hematuria, Frequency Musculoskeletal: Denies: Back pain, Extremity Pain Skin: Denies: Rash, Wounds Neurological: Denies: Headache, Weakness, Numbness Physical Exam Vital Signs/Narrative: Vital Signs Temp Pulse Resp BP Pulse Ox 04/20/20 14:56 100.1 F H 140 H 18 146/73 H 93 General: Well nourished, Well developed, No Acute Distress, - - Patient is in no distress her heart rate is 130 sinus all other vital signs are unremarkable EKG shows 130 intervals within normal range no acute injury pattern Head: Normocephalic, Atraumatic Eyes: Perrl, EOMI ENT: Moist mucous membranes, No rhinorrhea Neck: Supple, Nontender Cardiovascular: Regular rate, Regular rhythm, No murmurs Respiratory: No distress, CTA bilaterally, Chest nontender Abdomen: Soft, Nontender, Nondistended, Normal bowel sounds Back: Nontender, Normal Inspection Extremities: Nontender, No edema, - - There is a oval ulcer shallow involving the left lateral lower extremity it is has beefy granulation tissue there is very minimal drainage no crepitance or subcu air per the patient daughter it is not significantly different Skin: Normal color, No rash Neurological: Alert, Oriented x3, Cranial nerves II-XII grossly intact, Normal Strength, Normal Sensation Psychological: Normal affect, Normal Mood Diagnostic/Tx/Re-eval - Medical Decision Making ddx is extensive includes all the above please see ED evaluation IV fluids screening labs Patient's ED screening evaluation is generally unremarkable her lab tests are generally unremarkable see those reports, her CT of abdomen pelvis shows the colitis has resolved, she received 2 L of fluid her UA shows unremarkable findin gs of specific gravity of 1010 she is taking p.o. fluids here Her heart rate is about 110 sinus, EKG showed sinus rhythm rate 136 no acute injury pattern Reevaluation abdomen soft nontender she states she feels much better she is taking p.o. fluids she wants to go home to follow-up with outpatient doctors explained all the above test results to her she understands she will follow-up and return for change in symptoms as noted she is had no vomiting despite taking p.o. fluids here, and she is not provided any stool she is having no diarrhea Home stable Final impression vomiting resolved, sinus tachycardia, left lower extremity chronic ulceration, history of C. difficile ED Disposition - Plan for ED Patient: Diagnosis: Cellulitis of left leg, Ulcer of left lower extremity with fat layer exposed Instructions: ED Ulcer Skin Simple, ED Vomiting and Diarrhea Nonspecific Adult Referrals: Boo Saunders MD [Primary Care Provider] -
[2020-04-20] MEDS: 0.9% Normal Saline 1,000 ML 125 ML IV (15:34)
[2020-04-20 15:50] LABS: Absolute Lymphocyte Count 1.24 X10^3/uL (0.83-4.51); Absolute Neutrophil Count 11.2 X10^3/uL (2.0-7.7); Basophil# 0.04 X10^3/uL; Basophil% 0.3 % (0-1); Eosinophil# 0.01 X10^3/uL; Eosinophils% 0.1 % (0-5); Hematocrit 40.4 % (37-47); Hemoglobin 12.7 g/dL (12.0-15.0); Lymphocyte # 1.24 X10^3/ul (4.0); Lymphocyte % 9.2 % (19-41); Mean Corp Hgb Conc 31.4 g/dL (32-36); Mean Corpuscular Hgb 28.3 pg (27.0-32.0); Mean Platelet Vol. 8.8 fl (6.2-12.0); Monocyte% 7.4 % (0-10); NRBC Flagged by Analyzer 0 % (0-5); Neutrophil # 11.17 X10^3/uL (2.7-7.7); Neutrophil % 82.5 % (47-70); Platelet Count 349 K/mm3 (150-450); RBC Distribution Width CV 15.1 % (11.6-14.6); Red Blood Count 4.49 M/mm3 (4.2-5.4); White Blood Count 13.5 K/mm3 (4.4-11.0)
[2020-04-20] MEDS: 0.9% Normal Saline 1,000 ML 999 ML IV ×2 (16:22→16:44)
[2020-04-20 16:26] LABS: ALB/GLOB Ratio 0.7 RATIO (0.9-2.4); AST(SGOT) 12 U/L (15-37); Alanine Aminotransfer ALT/SGPT 12 U/L (13-56); Albumin, Serum 3.2 g/dL (3.2-5.0); Alkaline Phosphatase 98 U/L (45-117); Anion Gap 8 (5-15); BUN 8 mg/dL (7-18); Bilirubin, Direct 0.25 mg/dL (0.00-0.30); Calcium,Total 8.7 mg/dL (8.5-10.1); Chloride 101 mmol/L (98-107); Creatinine, Serum 0.62 mg/dL (0.55-1.02); EST Glomerular Filtration Rate 101 mL/min (>60); Est Glom Filt Rate - Afr Amer 123 mL/min (>60); Estimated Creatinine Clearance 48.03 ml/min; Globulin 4.9 g/dL (2.2-4.2); Glucose 114 mg/dL (74-106); Potassium 3.5 mmol/L (3.5-5.1); Protein, Total 8.1 g/dL (6.4-8.2); Sodium Level 135 mmol/L (136-145)
[2020-04-20 16:45] LABS: Bacteria 0 SEEN /hpf (None Seen); Squamous Epithelial Cells - UA 0 SEEN /hpf (5-10)
[2020-04-20 16:47] LABS: Color, Urine Yellow (Yellow); Glucose, Dipstick Normal (Normal); Ketone-Dipstick Negative (Negative); Leukocyte Esterase-Dipstick Negative /ul (Negative); Nitrite-Dipstick Negative (Negative); Occult Blood-Urine 25 /ul (Negative); Protein-Dipstick Negative (Negative); Urine Bilirubin Dipstick Negative (Negative); Urine Clarity Clear (Clear); Urine Urobilinogen Normal (Normal)
[2020-04-20 16:53] VITALS: BP 153/69; PULSE 127; RESP 19; O2SAT 97
[2020-04-20 17:07] LABS: Mucous, Urine 1+ /hpf (<or=2+)
[2020-04-20 17:08] LABS: Red Blood Cells-Urine 0-5 SEEN /hpf (0-5)
[2020-04-20 17:12] LABS: Renal Epithelial Cells 0-5 SEEN /hpf (0-5)
--- NOTE | 2020-04-20 17:12 | ED.RN ---
WOUND DRESSING SUPPLIES SUPPLIED TO DAUGHTER, DAUGHTER DENIES WANTING HELP TO DRESS PATIENTS LEFT LOWER LEG WOUND.
[2020-04-20 17:13] LABS: White Blood Cells 0 SEEN /hpf (0-5)
[2020-04-20 17:55] VITALS: BP 144/73; PULSE 133; RESP 20; TEMP 36.6; O2SAT 97
== END 2020-04-20 18:10 | disposition home or self-care (01) ==
PROVIDERS: Emergency Provider Emergency Medicine
DX: L97.922 Non-pressure chronic ulcer of unspecified part of left lower leg with fat layer exposed (principal); L03.116 Cellulitis of left lower limb; R00.0 Tachycardia, unspecified; Z86.19 Personal history of other infectious and parasitic diseases; Z87.19 Personal history of other diseases of the digestive system; Z79.899 Other long term (current) drug therapy; Z87.891 Personal history of nicotine dependence
CPT/HCPCS: 74176; 80053; 80076; 81001; 84484; 85025; 93005; 96360; 96361; 99284; J7030; A4216; J2405

== ENCOUNTER 2020-05-01 16:00 | Outpatient (RCR) | payer MEDICARE, OTHER, SELFPAY ==
[2020-04-05 16:16] VITALS: BMI 30.7
[2020-04-08 00:24] VITALS: BP 161/61; PULSE 77; RESP 18; TEMP 37.3
[2020-04-10 15:25] VITALS: BP 141/51; PULSE 141; RESP 20; TEMP 37.4; BMI 30.7
--- NOTE | 2020-04-10 15:56 | PCM.WC.PN ---
(1) Ulcer of left lower extremity with fat layer exposed Status: Chronic Code(s): L97.922 - Non-pressure chronic ulcer of unspecified part of left lower leg with fat layer exposed (2) Delayed wound healing Status: Chronic Code(s): T14.8XXD - Other injury of unspecified body region, subsequent encounter (3) Other specified peripheral vascular diseases Status: Chronic Code(s): I73.89 - Other specified peripheral vascular diseases Comment: bilateral lower extremity (4) Colonization status Status: Chronic Code(s): Z22.9 - Carrier of infectious disease, unspecified Type of Wound Date of Service: 04/10/20 Chief Complaint: Left leg ulcer History of Wound: This 69-year-old female with significant past medical history of polio with several medical sequela sustained a left leg ulcer that dates back to 2016. She was recently admitted at the hospital for colitis and was negative for COVID 19. She was placed on IV antibiotics. She has since stabilized and was discharged home. She has been performing dressing care as advised. She denies redness or odor. She change the dressing with Santyl. Progress of Wound: Improving - Physical Exam Vital Signs Temp Pulse Resp BP 99.4 F H 141 H 20 H 141/51 H 04/10/20 15:25 04/10/20 15:25 04/10/20 15:25 04/10/20 15:25 General: Alert, Oriented x3, Cooperative, No apparent distress Extremities: No cyanosis, Capillary Refill Less than 3 Seconds, No Calf Tenderness, Diminished Peripheral Pulses, Edema Skin: Ulcer/ Wound - No purulence, erythema, string, odor, infection. There is fibrosing granulation tissue noted. There is no eschar exposed bone or muscle belly noted. Part of the deep wound bed does appear to be consistent with the fascial layer. He adjacent satellite lesions that are medial lateral continues to have epithelial islands. Her skin in general is very hairless, atrophic and thin with some hyperpigmentation Wound Measurements and Assessment WC - Nurse 1 - General Ulcer Measurement Start: 04/10/20 15:25 Freq: Status: Active Protocol: Activity Type Activity Date Activity User E-Sign Co-Sign Detail Recorded Client Recorded Date Recorded By Document 04/10/20 15:25 [facility] [id number] 04/10/20 15:36 BMF 04/10/20 15:25 Wound Center Nurse 1 [Ulcer Assessment] #2 LLE medial -Combined with other wound No -Current Size (cm) - Length 10.2 -Current Size (cm) - Width 7 -Current Size (cm) - Depth 0.1 -Total Square Cm 71.4 -Photo Taken No -Epithelialization None Present -Tunneling No -Undermining/Tunneling No -Circular Undermining No -Exudate Amt Medium -Exudate Type Serous -Wound Margin Distinct, Outline Attached -Granulation Amt None Present (0 %) -Slough/Fibrin Yes -Necrosis Amt Large (67-100%) -Necrotic Tissue Type Adherent Slough -Texture (Susana-wound Skin Appearance) Assessed, Scarring -Moisture (Susana-wound Skin Appearance Assessed,Dry/ ) Scaly -Color (Susana-wound Skin Appearance) Assessed, Erythema -Temperature (Susana-wound Skin No Abnormality Appearance) (Pt Warm) -Tenderness on Palpation (Susana-wound No Skin Appearance) -Ulcer Cleansing soapy water -Foul Odor after Cleansing No -Anesthetic Used 5% Lidocaine Gel #1 LLE -Combined with other wound No -Current Size (cm) - Length 7.5 -Current Size (cm) - Width 4.9 -Current Size (cm) - Depth 0.3 -Total Square Cm 36.75 -Photo Taken No -Epithelialization None Present -Tunneling No -Undermining/Tunneling No -Circular Undermining No -Exudate Amt Medium -Exudate Type Serous -Wound Margin Thickened -Granulation Amt None Present (0 %) -Slough/Fibrin Yes -Necrosis Amt Large (67-100%) -Necrotic Tissue Type Adherent Slough -Texture (Susana-wound Skin Appearance) Assessed, Scarring -Moisture (Susana-wound Skin Appearance Assessed,Dry/ ) Scaly -Color (Susana-wound Skin Appearance) Assessed, Erythema -Temperature (Susana-wound Skin No Abnormality Appearance) (Pt Warm) -Tenderness on Palpation (Susana-wound Yes Skin Appearance) -Ulcer Cleansing soapy water -Foul Odor after Cleansing No -Anesthetic Used 5% Lidocaine Gel [Edema Assessment] -Lower Limb Edema Present Yes -Left Calf (cm) 34.3 -Left Ankle (cm) 21.3 Musculoskeletal: No Tenderness to Palpation of Joints or Extremities, Muscle Wasting, Tenderness - Ulcer manipulation Neurological: Sensory exam intact to light touch and pain - Hypersensitivity, - - 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 Anterior medial leg, left -no infection. Bacterial colonization with Pseudomonas treated with antibiotics during last admission. Leg edema. Venous insufficiency. Peripheral vascular disease with intervention pending. Delayed healing. Malnutrition suspected Plan: I reviewed and discussed her case today. Debridement was performed today as noted in the clinical panel. She was informed there are no overt signs of local or systemic signs of infection. It is noticed that she does have Pseudomonas contamination and colonization. This was previously treated with topical antimicrobial soap and also it is noted she was placed on IV antibiotics during her hospital admission for colitis. She did test negative for both COVID-19 and also for C. difficile during her recent hospital admission. To change dressing daily with Santyl and Adaptic. It is okay to apply Aquaphor to the surrounding skin to reduce pain with dressing changes. Upon improvement of the quality of the wound bed, application of advanced wound healing product, epi-fix will be considered at future visit. To follow-up with infectious disease as advised. I recommend she proceed with work-up for both arterial and venous disease. Venous reflux evaluation test was ordered. She was advised to avoid idle sitting and standing and to elevate the limb to control edema. If she has continued pain particularly with leg elevation, I recommend she intermittently dangles the leg as well. I also recommend she proceeds with noninvasive arterial study. This was performed and she will proceed with the recommended tests by vascular surgery prior to additional intervention. I reviewed Dr. Morel's plan and documentation. She additionally had an updated test performed and intervention is not recommended at this time from an arterial standpoint. She will follow-up in 6 months to see if it is warranted at that time or needed. She relates she is apprehensive to return because no intervention was initially performed. I encouraged her to keep her appointment which is scheduled for April or May because she is not demonstrating anticipated recovery and intervention may be considered at her follow-up. To d/c tubigrip due to inability to tolerate. I recommend at least continuing with the use of an Candelario wrap and this was applied again today. It appears she does have some mild form of venous insufficiency after reviewing her venous Doppler exam. She does also have significant bilateral lower extremity monophasic waveforms with ABIs of around 0.5 bilaterally. her prealbumin was 19.8 and proper nutrition and supplementation was reviewed. An order was provided previously and she was advised to obtain. To proceed with a proper control diet and nutrition supplementation to optimize healing. I answered all of her questions and explained the etiology of ulcer causes and the comprehensive wound healing plan. To return to clinic in 1 week. She would benefit from serial debridement and application of advanced wound healing product to prevent limb loss once her limb is stabilized. This is medically necessary. . 2020 quality measures reviewed as the following: Reviewed today-pain level was confirmed in follow-up plan was documented, medication and allergy reconciliation was performed. Reviewed 12-27-2019: She denies falling this past year. Reviewed 11/15/2019-pneumonia vaccination was confirmed, influenza immunization was confirmed for this current season in July 2019, advanced care plan was confirmed with living will, she is a current tobacco non user, her blood pressure is elevated over 120/80 and I recommend she follows up with her primary care physician for medical management of this. Diet and exercise benefits were also discussed for educational purposes to optimize her wound healing and medical management.
[2020-04-24 15:47] VITALS: BP 126/72; PULSE 108; RESP 18; TEMP 36.6; BMI 30.7
--- NOTE | 2020-04-24 17:05 | PN.PCM_ITS ---
(1) Ulcer of left lower extremity with fat layer exposed Status: Chronic Current Visit: Yes Code(s): L97.922 - Non-pressure chronic ulcer of unspecified part of left lower leg with fat layer exposed (2) Delayed wound healing Status: Chronic Current Visit: Yes Code(s): T14.8XXD - Other injury of unspecified body region, subsequent encounter (3) Other specified peripheral vascular diseases Status: Chronic Current Visit: Yes Code(s): I73.89 - Other specified peripheral vascular diseases Comment: bilateral lower extremity (4) Colonization status Status: Chronic Current Visit: Yes Code(s): Z22.9 - Carrier of infectious disease, unspecified (5) Localized edema Status: Chronic Current Visit: Yes Code(s): R60.0 - Localized edema Type of Wound Date of Service: 04/24/20 Chief Complaint: Left leg ulcer History of Wound: This 69-year-old female with significant past medical history of polio with several medical sequela sustained a left leg ulcer that dates back to 2016. She has been performing dressing care as advised. She denies redness or odor. She change the dressing with Santyl. She has continued pain with dressing changes and applies Aquaphor around the margin of the wound and uses Adaptic to reduce some of this discomfort. She also uses tramadol for intermittent use for pain control. She tries to elevate and uses an Candelario wrap. She was previously seen vascular surgery. She relates she did better in the hospital when she had antibiotics and was able to rest. Progress of Wound: Stable with delayed healing noted - Physical Exam Vital Signs Temp Pulse Resp BP 97.9 F 108 H 18 126/72 H 04/24/20 15:47 04/24/20 15:47 04/24/20 15:47 04/24/20 15:47 General: Alert, Oriented x3, Cooperative, No apparent distress HEENT: Atraumatic Extremities: No cyanosis, Capillary Refill Less than 3 Seconds, No Calf Tenderness - Negative Hughes sign left, Diminished Peripheral Pulses, Edema, Tenderness - Pain with ulcer manipulation and debridement Skin: Ulcer/ Wound - There is no erythema, purulence, streaking, sb necrosis or probe to bone noted. The ulcer has exposed subcutaneous tissue potentially fascial layer in the leg and the adjacent weeping skin has some hemorrhagic and some subcutaneous tissue exposed. The skin peripherally is atrophic, hairless, and with some hyperpigmentation Wound Measurements and Assessment WC - Nurse 1 - General Ulcer Measurement Start: 04/10/20 15:25 Freq: Status: Active Protocol: Activity Type Activity Date Activity User E-Sign Co-Sign Detail Recorded Client Recorded Date Recorded By Document 04/24/20 15:47 BS [id number] 04/24/20 15:58 BS 04/24/20 15:47 Wound Center Nurse 1 [Ulcer Assessment] #2 LLE medial -Combined with other wound No -Current Size (cm) - Length 11.0 -Current Size (cm) - Width 4 -Current Size (cm) - Depth 0.1 -Total Square Cm 44.0 -Necrosis Amt Large (67-100%) -Texture (Susana-wound Skin Appearance) No Abnormality, Assessed -Moisture (Susana-wound Skin Appearance Assessed, ) Maceration, Weeping -Color (Susana-wound Skin Appearance) Assessed, Hemosiderin Staining -Temperature (Susana-wound Skin No Abnormality Appearance) (Pt Warm) -Tenderness on Palpation (Susana-wound Yes Skin Appearance) -Ulcer Cleansing Soap and water -Foul Odor after Cleansing No -Anesthetic Used 5% Lidocaine Gel #1 LLE -Combined with other wound No -Current Size (cm) - Length 7.4 -Current Size (cm) - Width 5.2 -Current Size (cm) - Depth 0.3 -Total Square Cm 38.48 -Photo Taken No -Granulation Amt Large (67-100%) -Necrotic Tissue Type Adherent Slough -Texture (Susana-wound Skin Appearance) Assessed, Localized Edema -Moisture (Susana-wound Skin Appearance Assessed, ) Maceration, Weeping -Temperature (Suasna-wound Skin No Abnormality Appearance) (Pt Warm) -Tenderness on Palpation (Susana-wound Yes Skin Appearance) -Ulcer Cleansing Soap and water -Foul Odor after Cleansing No -Anesthetic Used 5% Lidocaine Gel WC - Nurse 2 - General Ulcer CM Notes Start: 04/10/20 15:25 Freq: Status: Active Protocol: Activity Type Activity Date Activity User E-Sign Co-Sign Detail Recorded Client Recorded Date Recorded By Document 04/24/20 16:29 [id number] 04/24/20 16:34 04/24/20 16:29 Wound Center Nurse 2 [Procedure/Treatment] #2 LLE medial -Time 16:31 -Correct Patient Yes -Correct Side, Site, Position Yes -Correct Procedure Yes -Procedure Performed Yes -Type of Procedure Debridement -Clinical Debridement Subcutaneous -Post Debridement Size (cm) - Length 11 -Post Debridement Size (cm) - Width 4.1 -Post Debridement Size (cm) - Depth 0.1 -Total Square Cm 45.1 -Wound/Ulcer Outcome Not Healed -Ulcer Cleansing Rinsed/ Irrigated with Saline -Foul Odor after Cleansing No -Bioengineered Tissue No -Bleeding Controlled with Pressure -Offloading No -Treatment Response Procedure Tolerated Well #1 LLE -Time 16:30 -Correct Patient Yes -Correct Side, Site, Position Yes -Correct Procedure Yes -Procedure Performed Yes -Type of Procedure Debridement -Clinical Debridement Subcutaneous -Post Debridement Size (cm) - Length 7.5 -Post Debridement Size (cm) - Width 5.2 -Post Debridement Size (cm) - Depth 0.3 -Total Square Cm 39.00 -Wound/Ulcer Outcome Not Healed -Ulcer Cleansing Rinsed/ Irrigated with Saline -Foul Odor after Cleansing No -Bioengineered Tissue No -Bleeding Controlled with Pressure -Offloading No -Treatment Response Procedure Tolerated Well [See Physician Procedure note for Specifics] Pain Scale: 0-10 Numeric [Pain] -Is Patient Pain Free? Yes Musculoskeletal: No Tenderness to Palpation of Joints or Extremities, Muscle Wasting, - - Compartments are soft to palpate. 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 There is no bogginess fluctuance or crepitus on palpation of the limb Neurological: Sensory exam intact to light touch and pain - Hypersensitivity Psych/Mental Status: Normal Affect, Appropriate Debridement Note Post-Debridement Measurements/Treatment WC - Nurse 2 - General Ulcer CM Notes Start: 04/10/20 15:25 Freq: Status: Active Protocol: Activity Type Activity Date Activity User E-Sign Co-Sign Detail Recorded Client Recorded Date Recorded By Document 04/11/20 07:14 DOLORES [id number] 04/11/20 07:16 PL Document 04/24/20 16:29 FELISHA [id number] 04/24/20 16:34 FELISHA 04/11/20 04/24/20 07:14 16:29 Wound Center Nurse 2 #2 LLE medial -Time 15:43 16:31 -Correct Patient Yes Yes -Correct Side, Site, Position Yes Yes -Correct Procedure Yes Yes -Procedure Performed Yes Yes -Type of Procedure Debridement Debridement -Clinical Debridement Subcutaneous Subcutaneous -Post Debridement Size (cm) - Length 10.3 11 -Post Debridement Size (cm) - Width 7.1 4.1 -Post Debridement Size (cm) - Depth 0.2 0.1 -Total Square Cm 73.13 45.1 -Wound/Ulcer Outcome Not Healed Not Healed -Ulcer Cleansing Rinsed/ Rinsed/ Irrigated with Irrigated with Saline Saline -Foul Odor after Cleansing No No -Bioengineered Tissue No -Bleeding Controlled with Pressure Pressure -Offloading No -Treatment Response Procedure Procedure Tolerated Well Tolerated Well #1 LLE -Time 15:43 16:30 -Correct Patient Yes Yes -Correct Side, Site, Position Yes Yes -Correct Procedure Yes Yes -Procedure Performed Yes Yes -Type of Procedure Debridement Debridement -Clinical Debridement Subcutaneous Subcutaneous -Post Debridement Size (cm) - Length 7.1 7.5 -Post Debridement Size (cm) - Width 5.0 5.2 -Post Debridement Size (cm) - Depth 0.4 0.3 -Total Square Cm 35.50 39.00 -Wound/Ulcer Outcome Not Healed Not Healed -Ulcer Cleansing Rinsed/ Rinsed/ Irrigated with Irrigated with Saline Saline -Foul Odor after Cleansing No No -Bioengineered Tissue No -Bleeding Controlled with Pressure Pressure -Offloading No -Treatment Response Procedure Procedure Tolerated Well Tolerated Well Pain Scale: 0-10 Numeric Is Patient Pain Free? Yes Yes Wound debrided: leg Laterality: Left Type of Debridement: Excisional debridement Anesthesia Used: 5% Lidocaine Gel Depth: in the subcutaneous layer Percentage of wound debrided: 100 Instrument Used: #15 blade Tissue Removed: fibrous, devitalized subcutaneous, biofilm, slough Severity: Fat Layer Exposed Amount of bleeding with debridement: Mild Bleeding Controlled with: Pressure Patient tolerated procedure well Assessment/Plan Active Problems (Last Reviewed 04/11/20 @ 14:[address] Yefri Rubio MD) Localized edema (Chronic) Ulcer of left lower extremity with fat layer exposed (Chronic) Delayed wound healing (Chronic) Other specified peripheral vascular diseases (Chronic) bilateral lower extremity Colonization status (Chronic) Assessment: Left leg ulcer with fat layer /partial fascial layer exposed, lack of local infection signs. Anterior medial leg, left -no infection. 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 Leg edema. Venous insufficiency. Peripheral vascular disease with intervention pending. Delayed healing. Malnutrition suspected Plan: I reviewed and discussed her case today. Debridement was performed today as noted in the clinical panel. She was informed there are no overt signs of local or systemic signs of infection. It is noticed that she does have Pseudomonas contamination and colonization. This was previously treated with topical antimicrobial soap and also it is noted she was placed on IV antibiotics during her hospital admission for colitis. She did test negative for both COVID-19 and also for C. difficile during her recent hospital admission. An updated culture was obtained today. She will introduce Dakin wet-to-dry dressing solution into her dressing management to also address any contamination given her increased leg weeping she reports. I also recommend she follows up with infectious disease next week he has this seems to be an intermittent issue would like to see if there is any additional input. It is okay for her to cont inue use adaptic and Aquaphor peripherally to make the dressing changes more comfortable. Upon improvement of the quality of the wound bed, application of advanced wound healing product, epi-fix will be considered at future visit. I recommend she proceed with work-up for both arterial and venous disease. Venous reflux evaluation test was ordered. She was advised to avoid idle sitting and standing and to elevate the limb to control edema. If she has continued pain particularly with leg elevation, I recommend she intermittently dangles the leg as well. She seems to do well while she is resting in the hospital and she is able to elevate. Fully controlling the edema is a challenge at home. I also recommend she proceeds with noninvasive arterial study. This was performed and she has already completed the additional recommended tests by vascular surgery. I reviewed Dr. Morel's plan and documentation. She additionally had an updated test performed and intervention is not recommended at this time from an arterial standpoint. She was advised to follow-up in 6 months to see if it is warranted at that time or needed. Due to her overall lack of progress I recommend she returns early to see if intervention is possible. She is been routinely apprehensive to do this and I made this recommendation again today. This will also be communicated with vascular office. To d/c tubigrip due to inability to tolerate. I recommend at least continuing with the use of an Candelario wrap and this was applied again today. It appears she does have some mild form of venous insufficiency after reviewing her venous Doppler exam. She does also have significant bilateral lower extremity monophasic waveforms with ABIs of around 0.5 bilaterally. her prealbumin was 19.8 and proper nutrition and supplementation was reviewed. To proceed with a proper control diet and nutrition supplementation to optimize healing. I answered all of her questions and explained the etiology of ulcer causes and the comprehensive wound healing plan. Her daughter is asking many questions about hyperbaric oxygen therapy at this time. I reviewed the indications and it does not appear she is meeting local determinant coverage criteria to qualify at this current time. This is very upsetting information to them and they are frustrated about this potential opportunity. This case was also reviewed with nurse credit administration manager in regards to current qualifying diagnoses for hyperbaric oxygen therapy, nurse credit administration manager, Cole, will call her insurance to see if there are any current updates or exceptions. They were also offered to bypass insurance coverage and see if she like to go a self pay route as well. If that is the route they choose, she will still need to be medically cleared to make sure this is safe. A second opinion at this time was also offered. She was advised to return to clinic in 1 week. . 2020 quality measures reviewed as the following: medication and allergy reconciliation was performed. Reviewed 12-27-2019: She denies falling this past year. Reviewed 11/15/2019-pneumonia vaccination was confirmed, influenza immunization was confirmed for this current season in July 2019, advanced care plan was confirmed with living will, she is a current tobacco non user, her blood pressure is elevated over 120/80 and I recommend she follows up with her primary care physician for medical management of this. Diet and exercise benefits were also discussed for educational purposes to optimize her wound healing and medical management.
[2020-04-25 16:19] LABS: M R Staph aureus DNA By PCR Negative (Negative)
[2020-04-25 16:20] LABS: Probe Check PASS; Staph aureus DNA By PCR POSITIVE (Negative)
[2020-05-01 16:21] VITALS: RESP 16; TEMP 37.4; BMI 30.7
--- NOTE | 2020-05-01 16:31 | PCM.PN.ID ---
Subjective: LLE with increased redness, purulent drainage, no fever. No n/v/d. - Physical Exam Vitals/I&O's: Vital Signs Temp Pulse Resp BP 97.9 F 108 H 18 126/72 H 04/24/20 15:47 04/24/20 15:47 04/24/20 15:47 04/24/20 15:47 Oxygen Flow Rate (L/min) 2 Oxygen Delivery Method Room Air Weight: 63.503 kg Body Mass Index (BMI) 30.7 General: Alert, Cooperative, No apparent distress Lungs: Clear to auscultation, Normal air movement Cardiovascular: Regular rate, Regular Rhythm Abdomen: Soft, Non Tender, Non-Distended Skin: Ulcer/ Wound - L [place] shallow ulcer with purulence, surrounding redness Microbiology Past 72 Hours 04/25/20 13:46 Wound Abcess - Leg, Left Gram Stain - Final 04/25/20 13:46 Wound Abcess - Leg, Left Wound Culture - Final Pseudomonas aeroginosa Streptococcus agalactiae (B) 04/25/20 13:46 Wound Abcess - Leg, Left Anaerobic Culture - Final No anaerobic bacteria isolated. Medical Necessity - Tobacco Use Smoking Status: Former smoker Route of nutrition/ use of supplements: [] Nutritional Intake: [] IV Site: [] [place] Catheter: [] - Assessment/Plan Antibiotics: [] Assessment/Plan: [] LLE infected ulcer - h/o cdiff. Recent wound cx with GBS and PsA. Will start 10 day course of levaquin along 14 days prophylactic po vanc. Will follow as needed.
--- NOTE | 2020-05-01 16:55 | PCM.WC.PN ---
(1) Ulcer of left lower extremity with fat layer exposed Status: Chronic Code(s): L97.922 - Non-pressure chronic ulcer of unspecified part of left lower leg with fat layer exposed (2) Delayed wound healing Status: Chronic Code(s): T14.8XXD - Other injury of unspecified body region, subsequent encounter (3) Other specified peripheral vascular diseases Status: Chronic Code(s): I73.89 - Other specified peripheral vascular diseases Comment: bilateral lower extremity (4) Colonization status Status: Chronic Code(s): Z22.9 - Carrier of infectious disease, unspecified (5) Localized edema Status: Chronic Code(s): R60.0 - Localized edema Type of Wound Date of Service: 05/01/20 Chief Complaint: Left leg ulcer History of Wound: This 69-year-old female with significant past medical history of polio with several medical sequela sustained a left leg ulcer that dates back to 2016. She has been performing dressing care as advised. She denies redness or odor. She change the dressing with Dakin's solution as advised last week. She has continued pain with dressing changes and applies Aquaphor around the margin of the wound and uses Adaptic to reduce some of this discomfort. She also uses tramadol for intermittent use for pain control. She tries to elevate and uses an Candelario wrap. She was previously seen vascular surgery. She wants to undergo hyperbaric oxygen therapy. Progress of Wound: Stable with delayed healing noted - Physical Exam Vital Signs Temp Pulse Resp BP 99.4 F H 108 H 16 126/72 H 05/01/20 16:21 04/24/20 15:47 05/01/20 16:21 04/24/20 15:47 General: Alert, Oriented x3, Cooperative, No apparent distress Extremities: No cyanosis, Capillary Refill Less than 3 Seconds, No Calf Tenderness - Pain with also manipulation but there is no Kishor or Hughes positive sign, Diminished Peripheral Pulses, Edema Skin: Ulcer/ Wound - No purulence, erythema, streaking, odor, infection. She has continued skin discontinuity that is not making appropriate progress. She has serous weeping. Her skin is atrophic, hairless, hyperpigmented and ruborous in the dependent position Wound Measurements and Assessment WC - Nurse 1 - General Ulcer Measurement Start: 04/10/20 15:25 Freq: Status: Active Protocol: Activity Type Activity Date Activity User E-Sign Co-Sign Detail Recorded Client Recorded Date Recorded By Document 05/01/20 16:21 [facility] [id number] 05/01/20 16:34 [facility] 05/01/20 16:21 Wound Center Nurse 1 [Ulcer Assessment] #2 LLE medial -Combined with other wound No -Current Size (cm) - Length 6.2 -Current Size (cm) - Width 3.2 -Current Size (cm) - Depth 0.2 -Total Square Cm 19.84 -Photo Taken No -Epithelialization None Present -Tunneling No -Undermining/Tunneling No -Circular Undermining No -Classification - Thickness Full Thickness without Exposed Support Structure -Exudate Amt Large -Exudate Type Serosanguineous -Wound Margin Indistinct, Non -Visible -Granulation Amt None Present (0 %) -Granulation Quality N/A -Slough/Fibrin No -Necrosis Amt Large (67-100%) -Necrotic Tissue Type Adherent Slough -Structure Exposed None/Limited to Skin Breakdown -Texture (Susana-wound Skin Appearance) Assessed, Localized Edema ,Scarring -Moisture (Susana-wound Skin Appearance Assessed, ) Maceration, Weeping -Color (Susana-wound Skin Appearance) Assessed, Erythema -Temperature (Susana-wound Skin No Abnormality Appearance) (Pt Warm) -Tenderness on Palpation (Susana-wound No Skin Appearance) -Ulcer Cleansing Rinsed/ Irrigated with Saline -Foul Odor after Cleansing No -Anesthetic Used 4% Lidocaine Solution #1 LLE -Combined with other wound No -Current Size (cm) - Length 7.0 -Current Size (cm) - Width 5.7 -Current Size (cm) - Depth 0.3 -Total Square Cm 39.90 -Photo Taken No -Epithelialization None Present -Tunneling No -Undermining/Tunneling No -Circular Undermining No -Classification - Thickness Full Thickness without Exposed Support Structure -Exudate Amt Large -Exudate Type Serosanguineous -Wound Margin Indistinct, Non -Visible -Granulation Amt None Present (0 %) -Granulation Quality N/A -Slough/Fibrin Yes -Necrosis Amt Large (67-100%) -Necrotic Tissue Type Adherent Slough -Structure Exposed None/Limited to Skin Breakdown -Texture (Susana-wound Skin Appearance) Assessed, Friable, Localized Edema ,Scarring -Moisture (Susana-wound Skin Appearance Assessed, ) Weeping -Color (Susana-wound Skin Appearance) Assessed -Temperature (Susana-wound Skin No Abnormality Appearance) (Pt Warm) -Ulcer Cleansing Wound Cleanser -Foul Odor after Cleansing No -Anesthetic Used 4% Lidocaine Solution,5% Lidocaine Gel WC - Nurse 2 - General Ulcer CM Notes Start: 04/10/20 15:25 Freq: Status: Active Protocol: Activity Type Activity Date Activity User E-Sign Co-Sign Detail Recorded Client Recorded Date Recorded By Document 05/01/20 16:42 [id number] 05/01/20 16:47 05/01/20 16:42 Wound Center Nurse 2 [Procedure/Treatment] #2 LLE medial -Time 16:44 -Correct Patient No -Correct Side, Site, Position No -Correct Procedure No -Procedure Performed No -Clinical Debridement Selective -Wound/Ulcer Outcome Not Healed -Ulcer Cleansing Rinsed/ Irrigated with Saline -Foul Odor after Cleansing No -Bioengineered Tissue No -Bleeding Controlled with Pressure -Offloading No -Treatment Response Procedure Tolerated Well #1 LLE -Time 16:45 -Correct Patient Yes -Correct Side, Site, Position Yes -Correct Procedure Yes -Procedure Performed Yes -Type of Procedure Debridement -Clinical Debridement Selective -Post Debridement Size (cm) - Length 7 -Post Debridement Size (cm) - Width 5.7 -Post Debridement Size (cm) - Depth 0.3 -Total Square Cm 39.9 -Wound/Ulcer Outcome Not Healed -Ulcer Cleansing Rinsed/ Irrigated with Saline -Foul Odor after Cleansing No -Bioengineered Tissue No -Bleeding Controlled with Pressure -Offloading No -Treatment Response Procedure Tolerated Well [See Physician Procedure note for Specifics] Pain Scale: 0-10 Numeric [Pain] -Is Patient Pain Free? 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 Neurological: Sensory exam intact to light touch and pain - Hypersensitivity with touch and debridement Psych/Mental Status: Normal Affect, Appropriate Debridement Note Post-Debridement Measurements/Treatment WC - Nurse 2 - General Ulcer CM Notes Start: 04/10/20 15:25 Freq: Status: Active Protocol: Activity Type Activity Date Activity User E-Sign Co-Sign Detail Recorded Client Recorded Date Recorded By Document 04/11/20 07:14 DOLORES [id number] 04/11/20 07:16 PL Document 04/24/20 16:29 JF [id number] 04/24/20 16:34 JF Document 05/01/20 16:42 [id number] 05/01/20 16:47 JF 04/11/20 04/24/20 05/01/20 07:14 16:29 16:42 Wound Center Nurse 2 #2 [facility] medial -Time 15:43 16:31 16:44 -Correct Patient Yes Yes No -Correct Side, Site, Position Yes Yes No -Correct Procedure Yes Yes No -Procedure Performed Yes Yes No -Type of Procedure Debridement Debridement -Clinical Debridement Subcutaneous Subcutaneous Selective -Post Debridement Size (cm) - Length 10.3 11 -Post Debridement Size (cm) - Width 7.1 4.1 -Post Debridement Size (cm) - Depth 0.2 0.1 -Total Square Cm 73.13 45.1 -Wound/Ulcer Outcome Not Healed Not Healed Not Healed -Ulcer Cleansing Rinsed/ Rinsed/ Rinsed/ Irrigated with Irrigated with Irrigated with Saline Saline Saline -Foul Odor after Cleansing No No No -Bioengineered Tissue No No -Bleeding Controlled with Pressure Pressure Pressure -Offloading No No -Treatment Response Procedure Procedure Procedure Tolerated Well Tolerated Well Tolerated Well #1 LLE -Time 15:43 16:30 16:45 -Correct Patient Yes Yes Yes -Correct Side, Site, Position Yes Yes Yes -Correct Procedure Yes Yes Yes -Procedure Performed Yes Yes Yes -Type of Procedure Debridement Debridement Debridement -Clinical Debridement Subcutaneous Subcutaneous Selective -Post Debridement Size (cm) - Length 7.1 7.5 7 -Post Debridement Size (cm) - Width 5.0 5.2 5.7 -Post Debridement Size (cm) - Depth 0.4 0.3 0.3 -Total Square Cm 35.50 39.00 39.9 -Wound/Ulcer Outcome Not Healed Not Healed Not Healed -Ulcer Cleansing Rinsed/ Rinsed/ Rinsed/ Irrigated with Irrigated with Irrigated with Saline Saline Saline -Foul Odor after Cleansing No No No -Bioengineered Tissue No No -Bleeding Controlled with Pressure Pressure Pressure -Offloading No No -Treatment Response Procedure Procedure Procedure Tolerated Well Tolerated Well Tolerated Well Pain Scale: 0-10 Numeric Is Patient Pain Free? Yes Yes Yes Wound debrided: leg Laterality: Left Type of Debridement: Selective debridement Anesthesia Used: 5% Lidocaine Gel Depth: in the subcutaneous layer Percentage of wound debrided: 100 Instrument Used: #15 blade Tissue Removed: fibrous, devitalized subcutaneous, biofilm, slough Severity: Limited To Skin Breakdown Amount of bleeding with debridement: Mild Bleeding Controlled with: Pressure Patient tolerated procedure well Assessment/Plan Assessment: Left leg ulcer with fat layer /partial fascial layer exposed, lack of local infection signs. Anterior medial leg, left -no infection. 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 Leg edema. Venous insufficiency. Peripheral vascular disease with intervention pending. Delayed healing. Malnutrition suspected Plan: I reviewed and discussed her case today. Debridement was performed today as noted in the clinical panel. She was informed there are no overt signs of local or systemic signs of infection. It is noticed that she does have Pseudomonas contamination and colonization. This was previously treated with topical antimicrobial soap and also it is noted she was placed on IV antibiotics during her hospital admission for colitis. She did test negative for both COVID-19 and also for C. difficile during her recent hospital admission. An updated culture was obtained recently with continued +3 pseudomonal growth and additional bacterial growth. She was seen by infectious disease today and was started on an oral antibiotic regimen. Consultation is greatly appreciated. She will continue with Dakin wet-to-dry dressing solution into her dressing management to also address any contamination given her increased leg weeping she reports. It is okay for her to continue use adaptic and Aquaphor peripherally to make the dressing changes more comfortable. Upon improvement of the quality of the wound bed, application of advanced wound healing product, epi-fix will be considered at future visit. I recommend she proceed with work-up for both arterial and venous disease. Venous reflux evaluation test was ordered. She was advised to avoid idle sitting and standing and to elevate the limb to control edema. If she has continued pain particularly with leg elevation, I recommend she intermittently dangles the leg as well. She seems to do well while she is resting in the hospital and she is able to elevate. Fully controlling the edema is a challenge at home. I also recommend she proceeds with noninvasive arterial study. This was performed and she has already completed the additional recommended tests by vascular surgery. I reviewed Dr. Morel's plan and documentation. She additionally had an updated test performed and intervention is not recommended at this time from an arterial standpoint. She was advised to follow-up in 6 months to see if it is warranted at that time or needed. Due to her overall lack of progress I recommend she returns early to see if intervention is possible. She is been routinely apprehensive to do this and I made this recommendation again today. This will also be communicated with vascular office. To d/c tubigrip due to inability to tolerate. I recommend at least continuing with the use of an Candelario wrap and this was applied again today. It appears she does have some mild form of venous insufficiency after reviewing her venous Doppler exam. She does also have significant bilateral lower extremity monophasic waveforms with ABIs of around 0.5 bilaterally. her prealbumin was 19.8 and proper nutrition and supplementation was reviewed. To proceed with a proper control diet and nutrition supplementation to optimize healing. I answered all of her questions and explained the etiology of ulcer causes and the comprehensive wound healing plan. Her daughter is asking many questions about hyperbaric oxygen therapy at this time. I reviewed the indications and it does not appear she is meeting local determinant coverage criteria to qualify at this current time. This is very upsetting information to them and they are frustrated about this potential opportunity. This case was also reviewed with nurse production operations manager in regards to current qualifying diagnoses for hyperbaric oxygen therapy, nurse production operations manager, Cole, has also called and confirmed that this is not a covered benefit at this time. She defers proceeding with self-pay. A second opinion at this time was also offered. She defers at this time. She was advised to return to clinic in 1 week. Over 20 minutes was spent with this [id number] encounter including evaluation, treatment, management, education, additional chart review, and care coordination. I answered all of her questions. . 2020 quality measures reviewed as the following: medication and allergy reconciliation was performed. Reviewed 12-27-2019: She denies falling this past year. Reviewed 11/15/2019-pneumonia vaccination was confirmed, influenza immunization was confirmed for this current season in July 2019, advanced care plan was confirmed with living will, she is a current tobacco non user, her blood pressure is elevated over 120/80 and I recommend she follows up with her primary care physician for medical management of this. Diet and exercise benefits were also discussed for educational purposes to optimize her wound healing and medical management.
== END 2020-05-07 23:59 ==
LOC: WC 16:00
PROVIDERS: Referring Provider Podiatrist; Visit Provider Podiatrist
DX: I73.89 Other specified peripheral vascular diseases (principal); Z22.9 Carrier of infectious disease, unspecified; L97.822 Non-pressure chronic ulcer of other part of left lower leg with fat layer exposed; I87.2 Venous insufficiency (chronic) (peripheral); R60.0 Localized edema; Z86.12 Personal history of poliomyelitis; Z87.891 Personal history of nicotine dependence
CPT/HCPCS: 11042; 11045; 87070; 87075; 87077; 87186; 87205; 87640; 97597; 97598

== ENCOUNTER → 2020-05-01 17:15 | Outpatient (CLI) | payer MEDICARE, OTHER, SELFPAY ==
--- NOTE | 2020-04-11 02:37 | HP_ITS ---
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 Is patient in pain?: No Allergies naproxen [From Naprosyn] Allergy (Verified 04/11/20 14:20) Rash Penicillins [PCN] Allergy (Verified 04/11/20 14:20) Rash amoxicillin Adverse Reaction (Verified 04/11/20 14:20) Rash cephalexin [From Keflex] Adverse Reaction (Verified 04/11/20 14:20) Rash clotrimazole [From Lotrimin] Adverse Reaction (Verified 04/11/20 14:20) Rash diphenhydramine [From Benadryl] Adverse Reaction (Verified 04/11/20 14:20) Rash griseofulvin Adverse Reaction (Verified 04/11/20 14:20) Rash ibuprofen [From Motrin] Adverse Reaction (Verified 04/11/20 14:20) Rash miconazole [From Monistat 1 Combo Pack] Adverse Reaction (Verified 04/11/20 14:20) Rash propranolol [From Inderal LA] Adverse Reaction (Verified 04/11/20 14:20) Rash rofecoxib [From Vioxx] Adverse Reaction (Verified 04/11/20 14:20) Rash Sulfa (Sulfonamide Antibiotics) Adverse Reaction (Verified 04/11/20 14:20) Rash Medications Aspirin E.C. [Ecotrin] 81 mg PO QHS 11/28/19 [History Confirmed 04/11/20] Doxepin HCl [Sinequan] 10 mg PO QHS 11/28/19 [History Confirmed 04/11/20] Furosemide [Lasix] 40 mg PO DAILY PRN PRN 11/28/19 [History Confirmed 04/11/20] Levothyroxine [Synthroid] 137 mcg PO QHS 11/28/19 [History Confirmed 04/11/20] Pentoxifylline [Trental] 400 mg PO DAILY 11/28/19 [History Confirmed 04/11/20] Simvastatin [Zocor] 40 mg PO QHS 11/28/19 [History Confirmed 04/11/20] Collagenase [Santyl] 1 applic TOPICAL DAILY 03/26/20 [History Confirmed 04/11/20] Lactobacillus Acidophilus [Acidophilus] 2 tab PO BID 03/26/20 [History Confirmed 04/11/20] Metoprolol Tartrate 50 mg PO DAILY 03/26/20 [History Confirmed 04/11/20] Metoprolol Tartrate [Lopressor (beta stefany)] 100 mg PO QHS 03/26/20 [History Confirmed 04/11/20] cholecalciferol (vitamin D3) 25 mcg (1,000 unit) capsule 25 mcg PO DAILY 04/11/20 [History Confirmed 04/11/20] [facility] Medical History Pseudomonas aeruginosa colonization (Acute) Ulcer of left lower extremity with fat layer exposed (Chronic) Delayed wound healing (Chronic) Venous insufficiency (Chronic) Other specified peripheral vascular diseases (Chronic) Left leg pain (Chronic) Cellulitis of left leg (Acute) Leg edema, left (Chronic) Colonization status (Chronic) Diarrhea (Acute) Tachycardia (Acute) MVP (mitral valve prolapse) (Chronic) C. difficile colitis (Resolved) Thyroid disorder (Chronic) Ulcer of left lower extremity, limited to breakdown of skin (Acute) Colitis (Acute) HTN (hypertension) (Chronic) HLD (hyperlipidemia) (Chronic) Former tobacco use (Chronic) Sinus tachycardia (Chronic) Surgical History Hx of knee surgery (Acute) History of hip surgery (Acute) Hx of tubal ligation (Acute) Family History Daughter Asthma Sister COPD (chronic obstructive pulmonary disease) Father COPD (chronic obstructive pulmonary disease) Heart disease Mother COPD (chronic obstructive pulmonary disease) Social History (Updated 04/11/20 @ 16:[address] Yefri Rubio MD) Smoking Status: Former smoker second hand exposure: No alcohol intake: current alcohol intake frequency: holidays/special occasions only substance use type: does not use caffeine: Yes (some times) Type: tea what type of physical activity do you participate in: none frequency: does not exercise HPI HPI HPI: LUCIE DUPONT, is a 69 F who presents to the office today for HPI HPI Surgical H&P: Yes HPI: LUCIE DUPONT, is a 69 F who presents to the office today for Evaluation for colonoscopy. The patient was admitted 03/26/2020 due to diarrhea, fever and cough. 1. Acute colitis-CT of abdomen and pelvis on admission shows significant colitis most significant within the descending colon, suspicious for infectious or inflammatory etiology including ulcerative colitis. Leukocytosis improved. Fever resolved. Diarrhea resolved. General surgery consulted. Plans for outpatient scope. Patient has never had a colonoscopy before. ID following. Elevated d-dimer, CRP and PCT. C. difficile negative x2. Patient has a history of C. difficile, last diagnosed in November however she reports she has been on vancomycin intermittently since that time. IV meropenem during admission. Will discharge on p.o. Cipro and Flagyl with outpatient follow-up for scope. Since being home her bowels have firmed up. She does not have any abdominal pain. She has not had any fever nor coughing. ROS General General: No weight change, appetite, fatigue, colon cancer, breast cancer or weakness HEENT HEENT: No difficulty swallowing, eye injury, eye surgery, swollen glands or hoarseness Endo Endocrine: Yes thyroid disease; no diabetes mellitus, thyroid cancer, Hair loss, heat intolerance or cold intolerance Skin Skin: No rash or changing moles Musc Musculoskeletal: Yes back problems and arthritis; no rheumatoid arthritis, gout or joint pain Cardio Cardiovascular: No murmur, pacemaker, heart disease, atrial fibrillation, high blood pressure, heart attack, heart stent, palpitations, shortness of breat with exertion or chest pain Psych Psychiatric: Yes anxiety; no depression or hearing voices Resp Respiratory: No shortness of breath, No sleep apnea, No cough, No COPD, No asthma, No emphysema, No wheezing Gastro Gastrointestinal: No abdominal pain, No nausea or vomiting, No diarrhea, No constipation, No blood in stool, No acid reflux, Yes hemorrhoids, No ulcers, No gallbladder problem, No black,tarry stools Alexandr Hematologic: No blood thinners, No blood disorders, No bleeding, No anemia, No blood clots Neuro Neurologic: No weakness Exam Const General: no acute distress, well developed, well hydrated Orientation: oriented to person, oriented to place, oriented to time [facility] Head: normocephalic, atraumatic Ears: external ears normal Mouth: moist mucous membranes Eyes Sclera: sclerae normal Pupils: normal by confrontation Neck Neck: no lymphadenopathy noted Neck mass: No Thyroid: thyroid normal, symmetrical Chest Chest palpation & inspection: normal inspection of the chest Resp Effort & Inspection: normal respiratory effort Auscultation: clear to auscultation bilaterally Percussion: percussion normal Cardio Rate: regular rate Rhythm: regular rhythm Heart Sounds: no murmurs GI Palpation: soft, no hepatosplenomegaly, no masses, nontender Rectal Exam: other Other: Rectal exam deferred. Extrem General: normal to inspection, no clubbing, cyanosis or edema Assessment & Plan Problems 1. Colitis K52.9 Plan I have discussed the above with the patient. I have offered the patient colonoscopy for evaluation. I have explained the risks/benefits of the procedure and described the procedure. I have discussed the risks with the patient, including but not limited to: infection, bleeding, perforation of the GI tract requiring emergency surgery, inability to complete the procedure, injury to any internal organs, complications of anesthesia, etc. - the patient understands and agrees to proceed. I have answered all the patient's questions to the patient's satisfaction and the patient has no further questions. The patient has been given instructions for the colon cleansing preparation. Coding Level of Care Code Off vis,est,level 3 Diagnoses Colitis K52.9 04/11/20 1606 <Electronically signed by Yefri herrmann MD> Date _ Yefri Rubio MD
[2020-04-11 14:24] VITALS: BMI 30.7
[2020-05-01 19:06] LABS: Probe Check PASS; Specimen Processing Control PASS
== END ==
PROVIDERS: Anesthesiology; Visit Provider Surgery
DX: I73.89 Other specified peripheral vascular diseases (principal); Z22.9 Carrier of infectious disease, unspecified; L97.822 Non-pressure chronic ulcer of other part of left lower leg with fat layer exposed; I87.2 Venous insufficiency (chronic) (peripheral); R60.0 Localized edema; Z86.12 Personal history of poliomyelitis; Z87.891 Personal history of nicotine dependence; Z11.59 Encounter for screening for other viral diseases
CPT/HCPCS: 87635; 97597; 97598; G2023; U0003

== ENCOUNTER 2020-05-26 23:02 | Inpatient (IN) | payer MEDICARE, OTHER, SELFPAY ==
[2020-05-22 15:05] VITALS: BMI 26.2
--- NOTE | 2020-05-26 23:06 | ED.RN ---
CALLED FOR EKG PER RN REQUEST, PULLED OLD EKGS FOR
[2020-05-26 23:07] VITALS: BP 142/63; PULSE 141; RESP 24; TEMP 36.4; O2SAT 92; BMI 28.3
[2020-05-26 23:15] VITALS: O2SAT 95
--- NOTE | 2020-05-26 23:26 | EKG12_ITS ---
Test Reason : TACHYCARDIA Blood Pressure : / mmHG Vent. Rate : 138 BPM Atrial Rate : 138 BPM P-R Int : 118 ms QRS Dur : 066 ms QT Int : 294 ms P-R-T Axes : 076 016 065 degrees QTc Int : 445 ms Sinus tachycardia Nonspecific ST and T wave abnormality Abnormal ECG Confirmed by ANASTACIO OLIVARES, VENKAT ([id number]), writer editor LIAM CORRIGAN ([id number]) on 05/29/2020 9:05:00 AM Referred By: Monserrat Rodas Confirmed By:VENKAT CHAVES MD
--- NOTE | 2020-05-26 23:28 | ED.DCSUM_ITS ---
History of Present Illness Chief Complaint: Nausea/Vomiting/Diarrhea Informant: Patient, Family Narrative: Patient stated she does have a history of colitis and C. difficile remotely in November of this year. Patient stated she developed diarrhea 3 days ago. 8-10 episodes of loose watery diarrhea per day. No blood in it. Denies any abdominal pain to it. Denies any fevers or chills. She stated that she had one episode of emesis tonight. Daughter brought her in for further evaluation of the diarrhea. She was seen last month for an emergency department evaluation and had a CAT scan of her abdomen pelvis that showed colitis that had resolved. She stated prior to the last 3 days of diarrhea she had formed stool. She was recently on antibiotics and finished an unknown regimen for wound infection on her left lower extremity 10 days ago. She took this antibiotic for 10 days and again finished 10 days ago. Daughter stated that she goes to wound care once a week on Wednesdays. On Wednesday daughter stated that the wound looked better than it ever has. Paramedics brought her in for further evaluation after the diarrhea tonight. [employer] noted she had some increased redness proximal to a chronic wound ulcer on her left lateral leg. Patient has no pain in this area. Patient also stated she has chronic tachycardia for years. She stated her normal heart rate is around 140. She takes Lopressor for this. She stated that this is a chronic problem that is managed by her family doctor. She stated she is not having any lightheadedness or new problems with this at this time. - Past Medical History (1) Cellulitis of left leg Status: Acute (2) Colitis Status: Acute (3) Colonization status Status: Acute (4) Diarrhea Status: Acute (5) History of hip surgery Status: Acute (6) Hx of knee surgery Status: Acute (7) Hx of tubal ligation Status: Acute (8) Pseudomonas aeruginosa colonization Status: Acute (9) Tachycardia Status: Acute (10) Ulcer of left lower extremity, limited to breakdown of skin Status: Acute (11) Delayed wound healing Status: Chronic (12) Former tobacco use Status: Chronic (13) HLD (hyperlipidemia) Status: Chronic (14) HTN (hypertension) Status: Chronic (15) Left leg pain Status: Chronic (16) Leg edema, left Status: Chronic (17) Localized edema Status: Chronic (18) MVP (mitral valve prolapse) Status: Chronic (19) Other specified peripheral vascular diseases Status: Chronic Comment: bilateral lower extremity (20) Sinus tachycardia Status: Chronic (21) Thyroid disorder Status: Chronic (22) Ulcer of left lower extremity with fat layer exposed Status: Chronic (23) Venous insufficiency Status: Chronic Comment: left Greater saphenous vein (24) C. difficile colitis Status: Resolved Past Medical History - Allergies and Home Meds Allergies/Adverse Reactions: Allergies naproxen [From Naprosyn] Allergy (Verified 05/26/20 23:04) Rash Penicillins [PCN] Allergy (Verified 05/26/20 23:04) Rash amoxicillin Adverse Reaction (Verified 05/26/20 23:04) Rash cephalexin [From Keflex] Adverse Reaction (Verified 05/26/20 23:04) Rash clotrimazole [From Lotrimin] Adverse Reaction (Verified 05/26/20 23:04) Rash diphenhydramine [From Benadryl] Adverse Reaction (Verified 05/26/20 23:04) Rash griseofulvin Adverse Reaction (Verified 05/26/20 23:04) Rash ibuprofen [From Motrin] Adverse Reaction (Verified 05/26/20 23:04) Rash miconazole [From Monistat 1 Combo Pack] Adverse Reaction (Verified 05/26/20 23:04) Rash propranolol [From Inderal LA] Adverse Reaction (Verified 05/26/20 23:04) Rash rofecoxib [From Vioxx] Adverse Reaction (Verified 05/26/20 23:04) Rash Sulfa (Sulfonamide Antibiotics) Adverse Reaction (Verified 05/26/20 23:04) Rash Primary Care Physician: Boo Saunders MD [Primary Care Provider] - Prior records reviewed: Yes Past Medical History: - - See problem list Surgical History: - - Bilateral lower extremity surgery for polio in her youth, bilateral tubal ligation. Lives: With Family Smoking Status: Never smoker Alcohol: None Drugs: None - Family History Maternal Family History: Family History (Last Reviewed 04/11/20 @ 14:[address] Yefri Rubio MD) Daughter Asthma Sister COPD (chronic obstructive pulmonary disease) Father COPD (chronic obstructive pulmonary disease) Heart disease Mother COPD (chronic obstructive pulmonary disease) Family History: Reports: Heart Disease Paternal Family History: Family History (Last Reviewed 04/11/20 @ 14:[address] Yefri Rubio MD) Daughter Asthma Sister COPD (chronic obstructive pulmonary disease) Father COPD (chronic obstructive pulmonary disease) Heart disease Mother COPD (chronic obstructive pulmonary disease) Family History: Reports: Heart Disease Review of Systems General: Denies: Chills, Fever, Sweats Eyes: Denies: Visual changes - bilaterally, Diplopia ENT: Denies: Rhinorrhea, Sore throat Cardiovascular: Denies: Chest pain, Palpitations Respiratory: Denies: Dyspnea, Cough, Dyspnea on exertion Gastrointestinal: Reports: Diarrhea. Denies: Abdominal pain, Nausea, Vomiting, Melena, Hematochezia Genitourinary: Denies: Dysuria, Hematuria, Frequency Musculoskeletal: Denies: Back pain, Extremity Pain Skin: Denies: Rash, Wounds Neurological: Denies: Headache, Weakness, Numbness Physical Exam Vital Signs/Narrative: Vital Signs Temp Pulse Resp BP Pulse Ox 05/26/20 23:15 95 05/26/20 23:07 97.6 F L 141 H 24 H 142/63 H 92 General: Well nourished, Well developed, No Acute Distress Head: Normocephalic, Atraumatic Eyes: Perrl, EOMI ENT: Moist mucous membranes, No rhinorrhea Neck: Supple, Nontender Cardiovascular: No murmurs, Tachycardia Respiratory: No distress, CTA bilaterally, Chest nontender Abdomen: Soft, Nontender, Nondistended, Normal bowel sounds Back: Nontender, Normal Inspection Extremities: - - She has a left lateral superficial skin ulcer measuring 4 x 6 inches. She also has a superficial medial ulcer. These are healing areas. She has a lower extremity cellulitis just proximal to the left lower wounds. Extends from her knee down to her mid [place]. Is on the anterior portion. Neurological: Alert, Oriented x3, Cranial nerves II-XII grossly intact, Normal Strength, Normal Sensation Psychological: Normal affect, Normal Mood Diagnostic/Tx/Re-eval - Medical Decision Making Daughter stated that the cellulitis just developed tonight. She will be given IV vancomycin. Lab work obtained. Given IV fluids. If she can provide a stool sample we will check her for C. difficile and stool culture. At this time the patient has 2 different problems. She has an acute diarrheal disease. She also has a new cellulitis on her left lower extremity recurrent. Lab work shows a chronic leukocytosis with left shift. It is unclear if this is acute secondary to her cellulitis. Potassium is mildly low just below 3. She was given oral potassium replacement. After treatment. Has not given a stool specimen yet. Have a low suspicion for C. difficile therefore will not treat at this time. Discussed with the hospitalist will be admitted for left lower extremity cellulitis and acute diarrhea with low potassium ED Disposition - Plan for ED Patient: Disposition: Acute Care Hospital [facility] Diagnosis: Acute diarrhea, Hypokalemia, Cellulitis
[2020-05-26 23:48] LABS: Absolute Neutrophil Count 13.1 X10^3/uL (2.0-7.7); Basophil# 0.03 X10^3/uL; Basophil% 0.2 % (0-1); Eosinophil# 0.05 X10^3/uL; Eosinophils% 0.3 % (0-5); Hematocrit 38.1 % (37-47); Hemoglobin 12.3 g/dL (12.0-15.0); Lymphocyte % 7.1 % (19-41); Mean Corp Hgb Conc 32.3 g/dL (32-36); Mean Corpuscular Hgb 28.2 pg (27.0-32.0); Mean Corpuscular Volume 87.4 fL (81-99); Mean Platelet Vol. 9.2 fl (6.2-12.0); Monocyte# 0.74 X10^3/uL; Monocyte% 4.8 % (0-10); NRBC Flagged by Analyzer 0 % (0-5); Neutrophil # 13.06 X10^3/uL (2.7-7.7); Neutrophil % 84.7 % (47-70); Platelet Count 231 K/mm3 (150-450); RBC Distribution Width CV 14.7 % (11.6-14.6); RBC Distribution Width SD 47.8 fl (35.1-43.9); Red Blood Count 4.36 M/mm3 (4.2-5.4); White Blood Count 15.4 K/mm3 (4.4-11.0)
[2020-05-26 23:54] LABS: ALB/GLOB Ratio 0.8 RATIO (0.9-2.4); AST(SGOT) 15 U/L (15-37); Alanine Aminotransfer ALT/SGPT 9 U/L (13-56); Albumin, Serum 3.3 g/dL (3.2-5.0); Alkaline Phosphatase 100 U/L (45-117); Anion Gap 9 (5-15); BUN 10 mg/dL (7-18); BUN/Creat Ratio 17.1 RATIO (10-20); Calcium,Total 8.3 mg/dL (8.5-10.1); Chloride 99 mmol/L (98-107); Creatinine, Serum 0.58 mg/dL (0.55-1.02); EST Glomerular Filtration Rate 108 mL/min (>60); Est Glom Filt Rate - Afr Amer 130 mL/min (>60); Estimated Creatinine Clearance 37.06 ml/min; Globulin 4.2 g/dL (2.2-4.2); Glucose 118 mg/dL (74-106); Lactic Acid 1.4 mmol/L (0.4-1.9); Potassium 2.9 mmol/L (3.5-5.1); Protein, Total 7.5 g/dL (6.4-8.2); Sodium Level 132 mmol/L (136-145)
[2020-05-27] VITALS (17 sets, daily range): BP systolic 110–141; BP diastolic 54–79; PULSE 76–145; RESP 16–31; TEMP 36.1–37.4; O2SAT 94–97; BMI 26.8
[2020-05-27] MEDS: 0.9% Normal Saline 1,000 ML 1000 ML IV (00:02)
--- NOTE | 2020-05-27 00:06 | ED.RN ---
pharmacy called about vancomycin. [facility] working on it.
[2020-05-27] MEDS: Vancomycin IV 1,000 MG/200 ML BAG 200 MG IV ×3 (00:18→23:52)
--- NOTE | 2020-05-27 00:29 | PCM.HP.STD ---
Problem List (1) Cellulitis of left leg Status: Acute (2) Diarrhea Status: Acute Qualifiers: Diarrhea type: unspecified type Qualified Code(s): R19.7 - Diarrhea, unspecified (3) Ulcer of left lower extremity with fat layer exposed Status: Chronic (4) C. difficile colitis Status: Resolved (5) Thyroid disorder Status: Chronic (6) HTN (hypertension) Status: Chronic Qualifiers: Hypertension type: essential hypertension Qualified Code(s): I10 - Essential (primary) hypertension (7) HLD (hyperlipidemia) Status: Chronic Qualifiers: Hyperlipidemia type: unspecified Qualified Code(s): E78.5 - Hyperlipidemia, unspecified (8) Sinus tachycardia Status: Chronic History of Present Illness Date of Admission: 05/27/20 Chief Complaint: N/V/D x 3 days, fatigue, malaise, increased redness periwound LLE. The patient is a 69 y/o F w/ PMHx: Hx C-diff (11/2018 after cipro), HTN, HLD, Hypothyroidism, Chronic Sinus Tachycardia (rate usually 100-140s), Chronic LLE wound following w/ Dr. Cooper at [facility], Former tobacco use who presents to the [facility] ED on 05/27/20 with history of ongoing diarrhea, profuse at least 3-5 times daily with nausea and occasional emesis with poor oral intake tolerance x 3 days with increasing fatigue and malaise as well as noted LLE periwound erythema extending from the ankle to the knee with denied recent increased wound drainage more so noted upon EMS on route to [facility] with no recent fever or chills associated. Patient notes diarrhea associated with mild generalized abdominal cramping. Patient most recent wound culture on 04/25/2020 of the left lower leg with pseudomonas aeruginosa and Streptococcus work-up in the ED included T 97.6, heart rate 141, BP 142/63, respiratory rate 24, 92% on room air, CBC with WBC 15.4, hemoglobin 12.3, platelet 231 with left shift, CMP with sodium 132, potassium 2.9, glucose 118, lactic acid 1.4, total bilirubin 1.5, AST/ALT 15/9, alk phos 100, blood culture x2 pending per ED. in the ED patient ministered IV vancomycin, normal saline and potassium supplementation with 20 mill equivalent p.o. x1. Past Medical History Past Medical History (Chronic Problems): Chronic Problems (Last Reviewed 04/11/20 @ 14:[address] Yefri Rubio MD) Localized edema (Chronic) Ulcer of left lower extremity with fat layer exposed (Chronic) Delayed wound healing (Chronic) Venous insufficiency (Chronic) left Greater saphenous vein Other specified peripheral vascular diseases (Chronic) bilateral lower extremity Left leg pain (Chronic) Leg edema, left (Chronic) MVP (mitral valve prolapse) (Chronic) Thyroid disorder (Chronic) HTN (hypertension) (Chronic) HLD (hyperlipidemia) (Chronic) Former tobacco use (Chronic) Sinus tachycardia (Chronic) Medical History: Medical History (Last Reviewed 04/11/20 @ 14:[address] Yefri Rubio MD) Pseudomonas aeruginosa colonization (Acute) Z22.39 Ulcer of left lower extremity with fat layer exposed (Chronic) L97.922 Delayed wound healing (Chronic) T14.8XXD Venous insufficiency (Chronic) I87.2 left Greater saphenous vein Other specified peripheral vascular diseases (Chronic) I73.89 bilateral lower extremity Left leg pain (Chronic) M79.605 Cellulitis of left leg (Acute) L03.116 Leg edema, left (Chronic) R60.0 Colonization status (Acute) Z22.9 Diarrhea (Acute) R19.7 Tachycardia (Acute) R00.0 MVP (mitral valve prolapse) (Chronic) I34.1 C. difficile colitis (Resolved) A04.72 Thyroid disorder (Chronic) E07.9 Ulcer of left lower extremity, limited to breakdown of skin (Acute) L97.921 Colitis (Acute) K52.9 HTN (hypertension) (Chronic) I10 HLD (hyperlipidemia) (Chronic) E78.5 Former tobacco use (Chronic) Z87.891 Sinus tachycardia (Chronic) R00.0 Allergies naproxen [From Naprosyn] Allergy (Verified 05/26/20 23:04) Rash Penicillins [PCN] Allergy (Verified 05/26/20 23:04) Rash amoxicillin Adverse Reaction (Verified 05/26/20 23:04) Rash cephalexin [From Keflex] Adverse Reaction (Verified 05/26/20 23:04) Rash clotrimazole [From Lotrimin] Adverse Reaction (Verified 05/26/20 23:04) Rash diphenhydramine [From Benadryl] Adverse Reaction (Verified 05/26/20 23:04) Rash griseofulvin Adverse Reaction (Verified 05/26/20 23:04) Rash ibuprofen [From Motrin] Adverse Reaction (Verified 05/26/20 23:04) Rash miconazole [From Monistat 1 Combo Pack] Adverse Reaction (Verified 05/26/20 23:04) Rash propranolol [From Inderal LA] Adverse Reaction (Verified 05/26/20 23:04) Rash rofecoxib [From Vioxx] Adverse Reaction (Verified 05/26/20 23:04) Rash Sulfa (Sulfonamide Antibiotics) Adverse Reaction (Verified 05/26/20 23:04) Rash Home Medications: Ambulatory Orders Medication Instructions Recorded Aspirin E.C. [Ecotrin] 81 mg PO QHS 11/28/19 Doxepin HCl [Sinequan] 10 mg PO QHS 11/28/19 Furosemide [Lasix] 40 mg PO DAILY PRN PRN 11/28/19 Levothyroxine [Synthroid] 137 mcg PO QHS 11/28/19 Pentoxifylline [Trental] 400 mg PO DAILY 11/28/19 Simvastatin [Zocor] 40 mg PO QHS 11/28/19 Lactobacillus Acidophilus 2 tab PO BID 03/26/20 [Acidophilus] Metoprolol Tartrate 50 mg PO DAILY 03/26/20 Metoprolol Tartrate [Lopressor 100 mg PO QHS 03/26/20 (beta stefany)] cholecalciferol (vitamin D3) 25 25 mcg PO DAILY 04/11/20 mcg (1,000 unit) capsule Surgical History: Surgical History (Last Reviewed 04/11/20 @ 14:[address] Yefri Rubio MD) Hx of knee surgery (Acute) Z98.890 History of hip surgery (Acute) Z98.890 Hx of tubal ligation (Acute) Z98.51 Surgical History: - - Bilateral lower extremity surgery for polio in her youth, bilateral tubal ligation. 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 Yefri Rubio MD) Daughter Asthma Sister COPD (chronic obstructive pulmonary disease) Father COPD (chronic obstructive pulmonary disease) Heart disease Mother COPD (chronic obstructive pulmonary disease) History Items: Heart Disease Paternal Family History: Family History (Last Reviewed 04/11/20 @ 14:[address] Yefri Rubio MD) Daughter Asthma Sister COPD (chronic obstructive pulmonary disease) Father COPD (chronic obstructive pulmonary disease) Heart disease Mother COPD (chronic obstructive pulmonary disease) History Items: Heart Disease Review of Systems Constitutional: Reports: Anorexia, Malaise, Weakness, Fatigue. Denies: Chills, Fever, Weight Change HEENT: Denies: Head Aches, Sinus Congestion, Sinus Drainage Cardiovascular: Denies: Chest Pain, Palpitations Respiratory: Denies: Cough, Shortness of breath at rest, Sputum production Gastrointestinal: Reports: Abdominal Pain, Diarrhea, Nausea, Vomiting Genitourinary: Denies: Dysuria Musculoskeletal: Reports: Back Pain, Joint Pain. Denies: Joint Tenderness Skin: Reports: Skin Changes, Wounds. Denies: Rash Neurological: Denies: Numbness, Tingling, Focal weakness Psychiatric: Denies: Anxiety, Depression, Homicidal Ideations, Suicidal Ideations Hematologic/ Lymphatic: Denies: Easy Bruising, Easy Bleeding VTE Information - Inpt Only VTE Present on Admission: No VTE Mechan Device Prophylaxis: SCD's VTE Pharm Prophylaxis ordered?: Yes Subjective: Seated upright in the ED bed, fatigued appearance, no acute distress. Objective: Physical Examination: General: awake, alert, oriented x 3 and cooperative, seated upright in the ED bed, fatigued no acute distress. Skin: normal color, turgor, no icterus, cyanosis except significant left lower extremity erythema extending from proximal knee to ankle with chronic anteriolateral [place] wound with noted yellow slough, no foul odor, erythema extends periwound concurrently. HEENT: AT/NC, EOMI, PERRLA, dry MM, no carotid bruits or JVD noted. Lungs: Diminished breath sounds, greater bases, no obvious rales, rhonchi or wheezing. Heart: Tachycardic with regular rhythm; no gallop, rub audible. Abdomen: soft, NTTP, ND, hyperactive BS, no HSM. Extremities: no cyanosis, clubbing, or edema. Neurological: patient awake, alert, oriented x 3; cognitive function near baseline but very fatigued; pupils equally reactive to light and accomodation; cranial nerves II-XII grossly normal, moving all 4 extremities, no focal deficits, strength severely global decrease secondary to acute presentation. Psychiatric: affect appears fatigued, no acute evidence of depressive or anxiety feelings. - Physical Exam Vitals/I&O's: Vital Signs Temp Pulse Resp BP Pulse Ox 97.6 F L 141 H 24 H 142/63 H 95 05/26/20 23:07 05/26/20 23:07 05/26/20 23:07 05/26/20 23:07 05/26/20 23:15 Oxygen Flow Rate (L/min) 2 Oxygen Delivery Method Nasal Cannula Weight: 144 lb 13.499 oz Body Mass Index (BMI) 28.3 Laboratory Results 05/26/20 23:14: WBC 15.4 H, RBC 4.36, Hgb 12.3, Hct 38.1, MCV 87.4, MCH 28.2, MCHC 32.3, RDW Std Deviation 47.8 H, RDW Coeff of Naseem 14.7 H, Plt Count 231, MPV 9.2, Immature Gran % (Auto) 2.900 H, Neut % (Auto) 84.7 H, Lymph % (Auto) 7.1 L, Sandoval % (Auto) 4.8, Eos % (Auto) 0.3, Baso % (Auto) 0.2, Absolute Neuts (auto) 13.1 H, Absolute Lymphs (auto) 1.10, Nucleated RBC % 0 05/26/20 23:14: Sodium 132 L, Potassium 2.9 L, Chloride 99, Carbon Dioxide 24.0, Anion Gap 9, BUN 10, Creatinine 0.58, Estim Creat Clear Calc 37.06, Est GFR (MDRD) Af Amer 130, Est GFR (MDRD) Non-Af 108, BUN/Creatinine Ratio 17.1, Glucose 118 H, Calcium 8.3 L, Total Bilirubin 1.50 H, AST 15, ALT 9 L, Alkaline Phosphatase 100, Total Protein 7.5, Albumin 3.3, Globulin 4.2, Albumin/Globulin Ratio 0.8 L 05/26/20 23:14: Lactic Acid 1.4 Assessment/Plan All Active Problems (Last Reviewed 04/11/20 @ 14:[address] Yefri Rubio MD) Hx of knee surgery (Acute) History of hip surgery (Acute) Hx of tubal ligation (Acute) Pseudomonas aeruginosa colonization (Acute) Cellulitis of left leg (Acute) Colonization status (Acute) Diarrhea (Acute) Tachycardia (Acute) C. difficile colitis (Resolved) Ulcer of left lower extremity, limited to breakdown of skin (Acute) Colitis (Acute) The patient is a 69 y/o F w/ PMHx: Hx C-diff (11/2018 after cipro), HTN, HLD, Hypothyroidism, Chronic Sinus Tachycardia, Chronic LLE wound following w/ Dr. Cooper at [facility], Former tobacco use who presents to the [facility] ED on 05/27/20 with history of ongoing diarrhea, profuse at least 3-5 times daily with nausea and occasional emesis with poor oral intake tolerance x 3 days with increasing fatigue and malaise as well as noted LLE periwound erythema extending from the ankle to the knee with denied recent increased wound drainage more so noted upon EMS on route. 1. Acute Left lower extremity cellulitis with Chronic Wound, Recent Pseudomonas/Strep Cx: Patient with chronic leukocytosis but given appearance concern for infection, most recent wound cultures demonstrated Pseudomonas and Streptococcus therefore admit to PCU given chronic significant tachycardia, maintain on IV Rocephin and vancomycin pending wound culture and MRSA screen, will reconsult patient's director home who is been following, wound RN with continued dressing changes, PRN oral and IV pain regimen, PRN antiemetic regimen. 2. History of C. difficile w/ recurrent N/V/D: Recent presentations with concern for recurrent C. difficile however negative x2, will continue treatment for #1 as noted, stool culture and C. difficile requested, if positive would initiate oral vancomycin regimen and request ID involvement given patient history. Given patient history will maintain on clears until improved status with advance diet as tolerated. 3. Hypokalemia: Admission K+ 2.9, magnesium level requested, supplementation given, repeat level in AM. 4. Hyponatremia, mild, hypovolemic: Admission sodium 132, likely secondary to GI losses as noted, continue judicious hydration with repeat CMP in a.m. 5. Chronic sinus tachycardia: Patient with rate usually 100-140s, will continue patient beta-stefany therapy, ED's rate 130s to 140s, will have PRN IV Lopressor. 6. Hypothyroidism: Continue home synthroid regimen. 7. Hypertension: Continue home regimen including metoprolol, PRN hydralazine. 8. Hyperlipidemia: Continue home statin regimen. 9. DVT prophylaxis: SCDs, Lovenox. 10. CODE status: Patient NILTON is her and living will is not currently in place. This was discussed during prior admission and recommended she discuss living will set-up information with CM/SW. Discussed CODE status at length including difference between FULL code, DNR-CCA and DNR-CC status. Following discussions about the differences in these status, requested Full Code status. Advanced Care Planning Face to Face Time: 16 minutes. Inpatient E&M: 64180 Init Hosp L3 Procedures: 48978 Advncd Care Plan 30 Min
--- NOTE | 2020-05-27 01:46 | PCM.RX.CS ---
Consult Pharmacy has been consulted to manage selected antiobiotic: Vancomycin Type of Consult: New start Suspected Infection: Skin/Soft tissue Labs: Sodium 132 mmol/L (136-145) L 05/26/20 23:14 Potassium 2.9 mmol/L (3.5-5.1) L 05/26/20 23:14 Chloride 99 mmol/L (98-107) 05/26/20 23:14 Carbon Dioxide 24.0 mmol/L (21.0-32.0) 05/26/20 23:14 Anion Gap 9 (5-15) 05/26/20 23:14 BUN 10 mg/dL (7-18) 05/26/20 23:14 Creatinine 0.58 mg/dL (0.55-1.02) 05/26/20 23:14 Est GFR (MDRD) Af Amer 130 mL/min (>60) 05/26/20 23:14 Est GFR (MDRD) Non-Af 108 mL/min (>60) 05/26/20 23:14 BUN/Creatinine Ratio 17.1 RATIO (-20) 05/26/20 23:14 Glucose 118 mg/dL (74-106) H 05/26/20 23:14 Weight used for dosin.7 kg Estimated Creatinine Clearance: 75.25 Goal Trough: 15-20 mcg/mL Pharmacy Plan for Drug Dosing: Pharmacy Service will continue to monitor and adjust dosing as required. Medications Vancomycin HCl (Vancomycin) 1,000 mg in 200 mls @ 200 mls/hr IV Q12H NEIL Discontinued Medications Vancomycin HCl (Vancomycin) 1,000 mg in 200 mls @ 200 mls/hr IV X1 ONE Stop: 05/27/20 00:26 Last Admin: 05/27/20 00:18 Dose: 200 mls/hr Documented by: Follow-Up Labs: Trough Vancomycin Labs to be done on [date and time ordered]: 05/28 @ 1135
[2020-05-27 01:53] LABS: Magnesium 1.6 mg/dL (1.6-2.6)
[2020-05-27] MEDS: 0.9% Normal Saline 1,000 ML 100 ML IV ×2 (02:15→17:37)
[2020-05-27] MEDS: Metoprolol Tartrate 100 MG Tablet PO ×2 (02:15→21:44)
--- NOTE | 2020-05-27 02:25 | NURSING ---
Pt was direct admit from the [facility]. pt had CXR disk without official read. [facility] called and this RN was notified by ARCHITECTURAL ADMINISTRATIVE ASSISTANT that [facility] does not have a radiologist read their chest xrays, but that the ED physicians preliminary read showed no acute process. Dr. Rodas updated. Jt RN
[2020-05-27 03:58] LABS: M R Staph aureus DNA By PCR Negative (Negative); Probe Check PASS; Specimen Processing Control PASS; Staph aureus DNA By PCR NEGATIVE (Negative)
[2020-05-27 06:15] LABS: Absolute Lymphocyte Count 1.16 X10^3/uL (0.83-4.51); Absolute Neutrophil Count 14.1 X10^3/uL (2.0-7.7); Basophil# 0.04 X10^3/uL; Basophil% 0.2 % (0-1); Eosinophil# 0.05 X10^3/uL; Eosinophils% 0.3 % (0-5); Hematocrit 35.1 % (37-47); Hemoglobin 11.3 g/dL (12.0-15.0); Lymphocyte # 1.16 X10^3/ul (4.0); Mean Corp Hgb Conc 32.2 g/dL (32-36); Mean Corpuscular Hgb 28.2 pg (27.0-32.0); Mean Corpuscular Volume 87.5 fL (81-99); Mean Platelet Vol. 8.9 fl (6.2-12.0); Monocyte# 0.94 X10^3/uL; Monocyte% 5.7 % (0-10); NRBC Flagged by Analyzer 0 % (0-5); Neutrophil # 14.11 X10^3/uL (2.7-7.7); Neutrophil % 85.8 % (47-70); Platelet Count 213 K/mm3 (150-450); RBC Distribution Width CV 14.6 % (11.6-14.6); RBC Distribution Width SD 47.2 fl (35.1-43.9); Red Blood Count 4.01 M/mm3 (4.2-5.4); White Blood Count 16.5 K/mm3 (4.4-11.0)
[2020-05-27 06:44] LABS: ALB/GLOB Ratio 0.7 RATIO (0.9-2.4); AST(SGOT) 21 U/L (15-37); Alanine Aminotransfer ALT/SGPT 9 U/L (13-56); Albumin, Serum 2.8 g/dL (3.2-5.0); Alkaline Phosphatase 89 U/L (45-117); Anion Gap 8 (5-15); BUN 8 mg/dL (7-18); Calcium,Total 7.9 mg/dL (8.5-10.1); Chloride 102 mmol/L (98-107); Creatinine, Serum 0.44 mg/dL (0.55-1.02); EST Glomerular Filtration Rate 148 mL/min (>60); Est Glom Filt Rate - Afr Amer 179 mL/min (>60); Estimated Creatinine Clearance 49.04 ml/min; Glucose 121 mg/dL (74-106); Potassium 3.3 mmol/L (3.5-5.1); Protein, Total 6.8 g/dL (6.4-8.2); Sodium Level 133 mmol/L (136-145)
[2020-05-27 08:13] LABS: Magnesium 1.7 mg/dL (1.6-2.6)
--- NOTE | 2020-05-27 08:18 | CPS ---
SMI at bedside...pt sleeping
--- NOTE | 2020-05-27 08:32 | PCA ---
Patient states that she will schedule own appointments.
[2020-05-27] MEDS: Potassium Chloride 10mEq/100mL 10 MEQ/100 ML IV.SOLN. 100 MEQ IV BOLUS ×4 (09:42→12:54)
[2020-05-27] MEDS: Metoprolol Tartrate 50 MG Tablet PO (09:43)
[2020-05-27] MEDS: Pentoxifylline 400 MG Tablet PO (09:43)
[2020-05-27] MEDS: Enoxaparin 40 MG/0.4 ML Syringe SC (09:44)
--- NOTE | 2020-05-27 11:09 | CASEMGMT ---
RN CM Assessment Note Diagnosis: Cellulitis L leg, Diarrhea, Ulcer LLE Intro role of CM to patient and her daughterTasia Bocanegra. Reviewed demographics information. Per daughter, patient is still living at home with her . Daughter is available to assist with needs. Patient has been requiring assistance with ADL's, meals, shopping etc. Pt uses walker/wheelchair but states she can drive short distances.Patient had [facility]. Daughter and patient are stating no concerns re: dc at this time. PCP: Dr. Saunders Specialists: [facility], Dr. Cooper Insurance: [facility] [place] Benefit: yes LNOK: Farhan Nava Living Arrangements: Lives with her and assists with his care. Daughter helps with meals, shopping, showering and transportation. One story home, 3 steps to enter. Tranportation: drives short distances; family assists DME: wheeled walker, manual and power wheelchairs, shower chair, Grab Bars in tub/shower -Home oxygen prn. Daughter states she has concentrator, no portability, and cannot remember which DME provides oxygen. Patient is not on oxygen currently. HHC: Discussed Home Health on dc. Patient and daughter are declining @ this time. Patient DC Goals: Home on dc DC Plan: Anticipate home on discharge with family support. CM available for discharge planning coordination. Contact CM for any concerns/needs that may arise. Dylan FUENTES RN ACM
[2020-05-27] MEDS: Ensure Clear 120 ML Liquid PO ×3 (14:06→21:44)
[2020-05-27] MEDS: Menthol/Lanolin/Calamine/Znox 113 GM Tube 1 APPLIC TOPICAL ×2 (14:07→21:43)
--- NOTE | 2020-05-27 14:24 | PCM.PN.BLA ---
Progress Note 69-year-old with multiple comorbidities who was admitted early this morning with nausea vomiting diarrhea of 3 days and redness of the lower extremity. He was found to have hypokalemia with hypomagnesemia. Stool for C. difficile was positive. Patient was seen and examined. Complains of feeling weak. She denied any fever or chills. On gentle IV fluids, IV ceftriaxone, p.o. and IV vancomycin We will reevaluate in a.m. and de-escalate antibiotics STROKE Vital Signs/Narrative: Vital Signs Temp Pulse Resp BP Pulse Ox 05/27/20 14:10 96.9 F L 102 H 16 114/54 L 96 05/27/20 11:55 96
--- NOTE | 2020-05-27 15:00 | CON.PCM_ITS ---
Reason for Consult Reason for Consultation: left leg ulcer w/ infection History of Present Illness: The patient is a 69 year old female with history of multiple medical problems was admitted due to left leg cellulitis and diarrhea. Patient with chronic ulceration to the left leg over about 1 year in duration, follows at the wound center. Patient has peripheral vascular disease and follows w/ Dr. Morel. Patient with recurrent infections and hx of c diff, follows with Dr. De La Cruz. Patient's daughter is at beside. Patient has been started on IV antibiotic Ceftriaxone, c. diff was positive. Culture is pending left leg. WBC elevated 16.5, patient's last temp was 96.9F. Past Medical History Past Medical History (Chronic Problems): Chronic Problems (Last Reviewed 04/11/20 @ 14:[address] Yefri Rubio MD) Localized edema (Chronic) Ulcer of left lower extremity with fat layer exposed (Chronic) Delayed wound healing (Chronic) Venous insufficiency (Chronic) left Greater saphenous vein Other specified peripheral vascular diseases (Chronic) bilateral lower extremity Left leg pain (Chronic) Leg edema, left (Chronic) MVP (mitral valve prolapse) (Chronic) Thyroid disorder (Chronic) HTN (hypertension) (Chronic) HLD (hyperlipidemia) (Chronic) Former tobacco use (Chronic) Sinus tachycardia (Chronic) Medical History: Medical History (Last Reviewed 04/11/20 @ 14:[address] Yefri Rubio MD) Pseudomonas aeruginosa colonization (Acute) Z22.39 Ulcer of left lower extremity with fat layer exposed (Chronic) L97.922 Delayed wound healing (Chronic) T14.8XXD Venous insufficiency (Chronic) I87.2 left Greater saphenous vein Other specified peripheral vascular diseases (Chronic) I73.89 bilateral lower extremity Left leg pain (Chronic) M79.605 Cellulitis of left leg (Acute) L03.116 Leg edema, left (Chronic) R60.0 Colonization status (Acute) Z22.9 Diarrhea (Acute) R19.7 Tachycardia (Acute) R00.0 MVP (mitral valve prolapse) (Chronic) I34.1 C. difficile colitis (Resolved) A04.72 Thyroid disorder (Chronic) E07.9 Ulcer of left lower extremity, limited to breakdown of skin (Acute) L97.921 Colitis (Acute) K52.9 HTN (hypertension) (Chronic) I10 HLD (hyperlipidemia) (Chronic) E78.5 Former tobacco use (Chronic) Z87.891 Sinus tachycardia (Chronic) R00.0 Allergies naproxen [From Naprosyn] Allergy (Verified 05/26/20 23:04) Rash Penicillins [PCN] Allergy (Verified 05/26/20 23:04) Rash amoxicillin Adverse Reaction (Verified 05/26/20 23:04) Rash cephalexin [From Keflex] Adverse Reaction (Verified 05/26/20 23:04) Rash clotrimazole [From Lotrimin] Adverse Reaction (Verified 05/26/20 23:04) Rash diphenhydramine [From Benadryl] Adverse Reaction (Verified 05/26/20 23:04) Rash griseofulvin Adverse Reaction (Verified 05/26/20 23:04) Rash ibuprofen [From Motrin] Adverse Reaction (Verified 05/26/20 23:04) Rash miconazole [From Monistat 1 Combo Pack] Adverse Reaction (Verified 05/26/20 23:04) Rash propranolol [From Inderal LA] Adverse Reaction (Verified 05/26/20 23:04) Rash rofecoxib [From Vioxx] Adverse Reaction (Verified 05/26/20 23:04) Rash Sulfa (Sulfonamide Antibiotics) Adverse Reaction (Verified 05/26/20 23:04) Rash Home Medications: Ambulatory Orders Medication Instructions Recorded Aspirin E.C. [Ecotrin] 81 mg PO QHS 11/28/19 Doxepin HCl [Sinequan] 10 mg PO QHS 11/28/19 Furosemide [Lasix] 40 mg PO DAILY PRN PRN 11/28/19 Levothyroxine [Synthroid] 137 mcg PO QHS 11/28/19 Pentoxifylline [Trental] 400 mg PO DAILY 11/28/19 Simvastatin [Zocor] 40 mg PO QHS 11/28/19 Lactobacillus Acidophilus 2 tab PO BID 03/26/20 [Acidophilus] Metoprolol Tartrate 50 mg PO DAILY 03/26/20 Metoprolol Tartrate [Lopressor 100 mg PO QHS 03/26/20 (beta mehran)] cholecalciferol (vitamin D3) 25 25 mcg PO DAILY 04/11/20 mcg (1,000 unit) capsule Collagenase [Santyl] 1 applic TOPICAL DAILY 05/27/20 Surgical History: Surgical History (Last Reviewed 04/11/20 @ 14:[address] Yefri Rubio MD) Hx of knee surgery (Acute) Z98.890 History of hip surgery (Acute) Z98.890 Hx of tubal ligation (Acute) Z98.51 Surgical History: - - Bilateral lower extremity surgery for polio in her youth, bilateral tubal ligation. 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 Yefri Rubio MD) Daughter Asthma Sister COPD (chronic obstructive pulmonary disease) Father COPD (chronic obstructive pulmonary disease) Heart disease Mother COPD (chronic obstructive pulmonary disease) History Items: Heart Disease Paternal Family History: Family History (Last Reviewed 04/11/20 @ 14:[address] Yefri Rubio MD) Daughter Asthma Sister COPD (chronic obstructive pulmonary disease) Father COPD (chronic obstructive pulmonary disease) Heart disease Mother COPD (chronic obstructive pulmonary disease) History Items: Heart Disease Patient Problems: Active and Suspected Problems (Last Reviewed 04/11/20 @ 14:[address] Yefri Rubio MD) Acute diarrhea (Acute) Hypokalemia (Acute) Cellulitis (Acute) - Physical Exam Vitals/I&O's: Vital Signs Temp Pulse Resp BP Pulse Ox 96.9 F L 102 H 16 114/54 L 96 05/27/20 14:10 05/27/20 14:10 05/27/20 14:10 05/27/20 14:10 05/27/20 14:10 Oxygen Flow Rate (L/min) 2 Oxygen Delivery Method Room Air Weight: 60.2 kg Body Mass Index (BMI) 26.8 Intake and Output for Last 24 Hours 05/25/20 05/26/20 05/27/20 23:59 23:59 23:59 Intake Total 3009 / 3009 Balance 3009 / 3009 General: Alert, Oriented x3, Cooperative, No apparent distress Extremities: Capillary Refill Less than 3 Seconds, - - Chronic ulceration to the left leg with fibrogranular base with smaller satellite wounds around the periphery, margins viable, there is some serous drainage, there is light localized cellulitis but appears much improved compared to the marked areas, the ulcerations down to subcutaneous tissue, no maloder, no streaking, no visible abscess, no crepitus, no fluctuance - there is pain to the sites. No open lesions right leg, foot or ankle. There is no evidence of acute infection to the foot, ankle or leg bilateral. Psych/Mental Status: Appropriate, Alert and oriented to time, place, person, mood and affect Microbiology Past 72 Hours 05/27/20 01:15 Stool Enteric Bacteriology - Final 05/27/20 01:50 Wound - Leg, Left Gram Stain - Final 05/27/20 01:15 Stool C. difficile GDH Antigen & Toxins - Final Toxigenic C. difficile 05/27/20 01:15 Stool C. difficile DNA Amplification - Final Laboratory Results 05/26/20 23:14: WBC 15.4 H, RBC 4.36, Hgb 12.3, Hct 38.1, MCV 87.4, MCH 28.2, MCHC 32.3, RDW Std Deviation 47.8 H, RDW Coeff of Naseem 14.7 H, Plt Count 231, MPV 9.2, Immature Gran % (Auto) 2.900 H, Neut % (Auto) 84.7 H, Lymph % (Auto) 7.1 L , Jack % (Auto) 4.8, Eos % (Auto) 0.3, Baso % (Auto) 0.2, Absolute Neuts (auto) 13.1 H, Absolute Lymphs (auto) 1.10, Nucleated RBC % 0 05/26/20 23:14: Sodium 132 L, Potassium 2.9 L, Chloride 99, Carbon Dioxide 24.0, Anion Gap 9, BUN 10, Creatinine 0.58, Estim Creat Clear Calc 37.06, Est GFR (MDRD) Af Amer 130, Est GFR (MDRD) Non-Af 108, BUN/Creatinine Ratio 17.1, Glucose 118 H, Calcium 8.3 L, Total Bilirubin 1.50 H, AST 15, ALT 9 L, Alkaline Phosphatase 100, Total Protein 7.5, Albumin 3.3, Globulin 4.2, Albumin/Globulin Ratio 0.8 L 05/26/20 23:14: Lactic Acid 1.4 05/26/20 23:14: Magnesium 1.6 05/27/20 01:50: S.aureus Protein A PCR NEGATIVE, MRSA (PCR) Negative 05/27/20 06:00: WBC 16.5 H, RBC 4.01 L, Hgb 11.3 L, Hct 35.1 L, MCV 87.5, MCH 28.2, MCHC 32.2, RDW Std Deviation 47.2 H, RDW Coeff of Naseem 14.6, Plt Count 213, MPV 8.9, Immature Gran % (Auto) 1.000 H, Neut % (Auto) 85.8 H, Lymph % (Auto) 7.0 L, Jack % (Auto) 5.7, Eos % (Auto) 0.3, Baso % (Auto) 0.2, Absolute Neuts (auto) 14.1 H, Absolute Lymphs (auto) 1.16, Nucleated RBC % 0 05/27/20 06:00: Sodium 133 L, Potassium 3.3 L, Chloride 102, Carbon Dioxide 23.0, Anion Gap 8, BUN 8, Creatinine 0.44 L, Estim Creat Clear Calc 49.04, Est GFR (MDRD) Af Amer 179, Est GFR (MDRD) Non-Af 148, BUN/Creatinine Ratio 18.0, Glucose 121 H, Calcium 7.9 L, Total Bilirubin 0.90, AST 21, ALT 9 L, Alkaline Phosphatase 89, Total Protein 6.8, Albumin 2.8 L, Globulin 4.0, Albumin/Globulin Ratio 0.7 L 05/27/20 06:00: Magnesium 1.7 Current Medications Acetaminophen (Tylenol) 650 mg PO Q6H PRN PRN PRN Reason: Pain Score 1-10/Temp > 100.7 F Al Hydroxide/Mg Hydroxide (Mylanta Ii) 30 ml PO Q6H PRN PRN PRN Reason: Gastric Burning Albuterol Sulfate (Ventolin Aerosols) 2.5 mg INHALATION Q2H PRN PRN PRN Reason: Dyspnea, wheezing Aspirin (Ecotrin) 81 mg PO QHS NEIL Atorvastatin Calcium (Lipitor) 20 mg PO QHS [facility] Calamine/Phenol (Calmoseptine Ointment) 1 applic TOPICAL TID NEIL; Protocol Last Admin: 05/27/20 14:07 Dose: 1 applicatio Documented by: Collagenase (Santyl) 1 applic TOPICAL DAILY NEIL; Protocol Dextrose (D50w Syringe) 0 gm IV X1 PRN; Protocol PRN Reason: Hypoglycemia Doxepin HCl (Sinequan) 10 mg PO QHS [facility] Enoxaparin Sodium (Lovenox) 40 mg SC DAILY [facility] Last Admin: 05/27/20 09:44 Dose: 40 mg Documented by: Glucagon () 1 mg IM .X1 PRN PRN Reason: Hypoglycemia Guaifenesin (Robitussin) 20 ml PO Q4H PRN PRN PRN Reason: COUGH Hydralazine HCl (Apresoline Iv) 10 mg IV Q4H PRN PRN PRN Reason: SBP > 160 Sodium Chloride () 1,000 mls @ 100 mls/hr IV .Q10H [facility] Last Infusion: 05/27/20 14:22 Dose: 100 mls/hr Documented by: Ceftriaxone Sodium 2 gm/ (Sodium Chloride) 50 mls @ 100 mls/hr IV QHS [facility] Last Infusion: 05/27/20 02:58 Dose: Infused Documented by: Vancomycin IV Pharmacy to Dose (1 ea/ Sodium Chloride) 500 mls @ 250 mls/hr IV X1 PRN; Protocol PRN Reason: Rx to Dose Vancomycin HCl (Vancomycin) 1,000 mg in 200 mls @ 200 mls/hr IV Q12H [facility] Last Infusion: 05/27/20 13:55 Dose: Infused Documented by: Sodium Chloride () 250 mls @ 15 mls/hr IV .[id number] PRN PRN Reason: Saline Flush Sodium Chloride () 250 mls @ 15 mls/hr IV .[id number] PRN PRN Reason: Additional IVPB Infusion Lactobacillus Acidophilus (Acidophilus) 1 tablet PO BID [facility] Last Admin: 05/27/20 09:43 Dose: 1 tablet Documented by: Levothyroxine Sodium (Synthroid) 137 mcg PO QHS [facility] Melatonin (Melatonin) 3 mg PO QHS PRN PRN PRN Reason: INSOMNIA Metoprolol Tartrate (Lopressor (Beta Mehran)) 5 mg IV Q6H PRN PRN PRN Reason: sustained tachycardia > 130 Metoprolol Tartrate (Lopressor (Beta Mehran)) 50 mg PO DAILY [facility] Last Admin: 05/27/20 09:43 Dose: 50 mg Documented by: Metoprolol Tartrate (Lopressor (Beta Mehran)) 100 mg PO QHS [facility] Last Admin: 05/27/20 02:15 Dose: 100 mg Documented by: Morphine Sulfate () 2 mg IV Q3H PRN PRN PRN Reason: Pain Score 6-10/10 Nutritional Formula (Lactose Free) (Ensure Clear) 120 ml PO 4X/DAY [facility] Last Admin: 05/27/20 14:06 Dose: 120 ml Documented by: Ondansetron HCl (Zofran) 4 mg IV Q8H PRN PRN PRN Reason: NAUSEA/VOMITING Oxycodone HCl (Oxyir) 5 mg PO Q4H PRN PRN PRN Reason: Pain Score 4-5/10 Pentoxifylline (Trental) 400 mg PO DAILY [facility] Last Admin: 05/27/20 09:43 Dose: 400 mg Documented by: Prochlorperazine Edisylate (Compazine Iv) 5 mg IV Q4H PRN PRN PRN Reason: Breakthrough Nausea/Vomiting Sodium Chloride () 10 - 40 ml IV UD PRN PRN Reason: SALINE FLUSH Throat Lozenges (Cepacol Sore Throat Lozenge) 1 lozenge MUCOUS MEM Q2H PRN PRN PRN Reason: SORE THROAT Vancomycin HCl () 125 mg PO Q6 [facility] Last Admin: 05/27/20 12:55 Dose: 125 mg Documented by: Assessment/Plan All Active Problems (Last Reviewed 04/11/20 @ 14:[address] Yefri Rubio MD) Acute diarrhea (Acute) Hypokalemia (Acute) Cellulitis (Acute) Hx of knee surgery (Acute) History of hip surgery (Acute) Hx of tubal ligation (Acute) Pseudomonas aeruginosa colonization (Acute) Cellulitis of left leg (Acute) Colonization status (Acute) Diarrhea (Acute) Tachycardia (Acute) C. difficile colitis (Resolved) Ulcer of left lower extremity, limited to breakdown of skin (Acute) Colitis (Acute) Left leg ulceration down to subcutaneous ulcer - chronic Cellulitis left lower extremity -improved Peripheral vascular disease lower extremity - chronic Diarrhea w/ c. diff Multiple comorbidities Left leg ulceration is chronic, there is minimal residual cellulitis at this time. A wound culture has been obtained and pending. Patient is on IV Ceftriaxone, patient also w/ c diff, ID service/ Dr. De La Cruz consulted. Also will order left leg xrays. Discussed surgical wound debridement in OR using Versajet and Aminofill, reviewed procedure. Patient relates she is worried about the anesthesia needed. She relates she would like to think overnight about this procedure. In meantime we will resume giuliayl to the wound daily, which was ordered. Keep ulcer offloaded, keep elevated and proceed with light compression. Today the wound was cleansed w/ normal saline solution, applied adaptic and overlying kerlix and bereket dressing.
--- NOTE | 2020-05-27 15:11 | RAD_ITS ---
STUDY: X-RAY - LEFT TIBIA AND FIBULA REASON FOR EXAM: Female, 69 years old. CHRONIC ULCER TO LEFT LOWER LEG. TECHNIQUE: 2 view(s) of the tibia and fibula were obtained. COMPARISON: Left tibia and fibula x-ray dated March 26, 2020 FINDINGS: There is demineralization of the tibia. Interval appearance of moderate mature appearing periosteal reaction along the lateral cortex of the mid to distal fibular shaft. Mild cortical thinning is also present in the mid to distal one third aspect of the cortical shaft suggesting mild osteomyelitis. Which could be related to gas from an open wound. There is no demonstrated destructive osseous lesion. No visualized fracture. Mild diffuse soft tissue swelling of the left lower leg reidentified. RAD/Tibia & Fibula 2 Views IMPRESSION: Probable acute on chronic osteomyelitis of the left fibula 1. Interval appearance of moderate mature appearing periosteal reaction along the lateral cortex of the mid to distal fibular shaft. 2. Mild cortical thinning is also present in the mid to distal one third aspect of the cortical shaft suggesting mild osteomyelitis. Which could be related to gas from an open wound Electronically Signed: Carlos Navarro MD at 23:52 EDT , Service support ,
--- NOTE | 2020-05-27 15:45 | PCM.HP.ID ---
Problem List (1) Acute diarrhea Status: Acute Reason for Consult: diarrhea Consulted by: Dr. Holley History of Present Illness: The patient is a 69 year old F with chronic LLE ulcer and recurrent cdiff, presented to ED with diarrhea since 05/24, going 3-5 times a day, no fever or chills, no abd pain. Leg with some increased pain and redness. Came to ED, started po vanc, iv vanc, ceftriaxone. Feeling better today, redness and diarrhea a little better. Full ROS performed and neg except as noted above. - Medical History Past Medical History (Chronic Problems): Chronic Problems (Last Reviewed 04/11/20 @ 14:[address] Yefri Rubio MD) Localized edema (Chronic) Ulcer of left lower extremity with fat layer exposed (Chronic) Delayed wound healing (Chronic) Venous insufficiency (Chronic) left Greater saphenous vein Other specified peripheral vascular diseases (Chronic) bilateral lower extremity Left leg pain (Chronic) Leg edema, left (Chronic) MVP (mitral valve prolapse) (Chronic) Thyroid disorder (Chronic) HTN (hypertension) (Chronic) HLD (hyperlipidemia) (Chronic) Former tobacco use (Chronic) Sinus tachycardia (Chronic) Allergies/Adverse Reactions: Allergies naproxen [From Naprosyn] Allergy (Verified 05/26/20 23:04) Rash Penicillins [PCN] Allergy (Verified 05/26/20 23:04) Rash amoxicillin Adverse Reaction (Verified 05/26/20 23:04) Rash cephalexin [From Keflex] Adverse Reaction (Verified 05/26/20 23:04) Rash clotrimazole [From Lotrimin] Adverse Reaction (Verified 05/26/20 23:04) Rash diphenhydramine [From Benadryl] Adverse Reaction (Verified 05/26/20 23:04) Rash griseofulvin Adverse Reaction (Verified 05/26/20 23:04) Rash ibuprofen [From Motrin] Adverse Reaction (Verified 05/26/20 23:04) Rash miconazole [From Monistat 1 Combo Pack] Adverse Reaction (Verified 05/26/20 23:04) Rash propranolol [From Inderal LA] Adverse Reaction (Verified 05/26/20 23:04) Rash rofecoxib [From Vioxx] Adverse Reaction (Verified 05/26/20 23:04) Rash Sulfa (Sulfonamide Antibiotics) Adverse Reaction (Verified 05/26/20 23:04) Rash Home Medications: Ambulatory Orders Medication Instructions Recorded Aspirin E.C. [Ecotrin] 81 mg PO QHS 11/28/19 Doxepin HCl [Sinequan] 10 mg PO QHS 11/28/19 Furosemide [Lasix] 40 mg PO DAILY PRN PRN 11/28/19 Levothyroxine [Synthroid] 137 mcg PO QHS 11/28/19 Pentoxifylline [Trental] 400 mg PO DAILY 11/28/19 Simvastatin [Zocor] 40 mg PO QHS 11/28/19 Lactobacillus Acidophilus 2 tab PO BID 03/26/20 [Acidophilus] Metoprolol Tartrate 50 mg PO DAILY 03/26/20 Metoprolol Tartrate [Lopressor 100 mg PO QHS 03/26/20 (beta stefany)] cholecalciferol (vitamin D3) 25 25 mcg PO DAILY 04/11/20 mcg (1,000 unit) capsule Collagenase [Santyl] 1 applic TOPICAL DAILY 05/27/20 - Social History SMOKING STATUS:: Former smoker Vital Signs Temp Pulse Resp BP Pulse Ox 96.9 F L 102 H 16 114/54 L 96 05/27/20 14:10 05/27/20 14:10 05/27/20 14:10 05/27/20 14:10 05/27/20 14:10 Oxygen Flow Rate (L/min) 2 Oxygen Delivery Method Room Air Weight: 60.2 kg Body Mass Index (BMI) 26.8 Microbiology Past 72 Hours 05/27/20 01:15 Enteric Bacteriology - Final Stool 05/27/20 01:50 Gram Stain - Final Wound - Leg, Left 05/27/20 01:15 C. difficile GDH Antigen & Toxins - Final Stool Toxigenic C. difficile C. difficile DNA Amplification - Final Laboratory Tests Past 24 Hrs 05/26/20 05/26/20 05/26/20 23:14 23:14 23:14 WBC 15.4 H RBC 4.36 Hgb 12.3 Hct 38.1 MCV 87.4 MCH 28.2 MCHC 32.3 RDW Std Deviation 47.8 H RDW Coeff of Naseem 14.7 H Plt Count 231 MPV 9.2 Immature Gran % (Auto) 2.900 H Neut % (Auto) 84.7 H Lymph % (Auto) 7.1 L [place] % (Auto) 4.8 Eos % (Auto) 0.3 Baso % (Auto) 0.2 Absolute Neuts (auto) 13.1 H Absolute Lymphs (auto) 1.10 Nucleated RBC % 0 Sodium 132 L Potassium 2.9 L Chloride 99 Carbon Dioxide 24.0 Anion Gap 9 BUN 10 Creatinine 0.58 Estim Creat Clear Calc 37.06 Est GFR (MDRD) Af Amer 130 Est GFR (MDRD) Non-Af 108 BUN/Creatinine Ratio 17.1 Glucose 118 H Lactic Acid 1.4 Calcium 8.3 L Magnesium Total Bilirubin 1.50 H AST 15 ALT 9 L Alkaline Phosphatase 100 Total Protein 7.5 Albumin 3.3 Globulin 4.2 Albumin/Globulin Ratio 0.8 L S.aureus Protein A PCR MRSA (PCR) 05/26/20 05/27/20 05/27/20 23:14 01:50 06:00 WBC 16.5 H RBC 4.01 L Hgb 11.3 L Hct 35.1 L MCV 87.5 MCH 28.2 MCHC 32.2 RDW Std Deviation 47.2 H RDW Coeff of Naseem 14.6 Plt Count 213 MPV 8.9 Immature Gran % (Auto) 1.000 H Neut % (Auto) 85.8 H Lymph % (Auto) 7.0 L [place] % (Auto) 5.7 Eos % (Auto) 0.3 Baso % (Auto) 0.2 Absolute Neuts (auto) 14.1 H Absolute Lymphs (auto) 1.16 Nucleated RBC % 0 Sodium Potassium Chloride Carbon Dioxide Anion Gap BUN Creatinine Estim Creat Clear Calc Est GFR (MDRD) Af Amer Est GFR (MDRD) Non-Af BUN/Creatinine Ratio Glucose Lactic Acid Calcium Magnesium 1.6 Total Bilirubin AST ALT Alkaline Phosphatase Total Protein Albumin Globulin Albumin/Globulin Ratio S.aureus Protein A PCR NEGATIVE MRSA (PCR) Negative 05/27/20 05/27/20 06:00 06:00 WBC RBC Hgb Hct MCV MCH MCHC RDW Std Deviation RDW Coeff of Naseem Plt Count MPV Immature Gran % (Auto) Neut % (Auto) Lymph % (Auto) [place] % (Auto) Eos % (Auto) Baso % (Auto) Absolute Neuts (auto) Absolute Lymphs (auto) Nucleated RBC % Sodium 133 L Potassium 3.3 L Chloride 102 Carbon Dioxide 23.0 Anion Gap 8 BUN 8 Creatinine 0.44 L Estim Creat Clear Calc 49.04 Est GFR (MDRD) Af Amer 179 Est GFR (MDRD) Non-Af 148 BUN/Creatinine Ratio 18.0 Glucose 121 H Lactic Acid Calcium 7.9 L Magnesium 1.7 Total Bilirubin 0.90 AST 21 ALT 9 L Alkaline Phosphatase 89 Total Protein 6.8 Albumin 2.8 L Globulin 4.0 Albumin/Globulin Ratio 0.7 L S.aureus Protein A PCR MRSA (PCR) - Other Studies Radiology: [] reviewed Other Studies: [] Route of nutrition/ use of supplements: [] Nutritional Intake: [] IV Site: [] [place] Catheter: [] - Physical Exam General: Alert, Oriented x3, Cooperative, No apparent distress HEENT: Atraumatic, PERRLA, EOMI Neck: Supple, No Nodes Lungs: Clear to auscultation, Normal air movement Cardiovascular: Regular rate, Regular Rhythm, No murmurs Abdomen: Soft, Non Tender, Non-Distended Extremities: No edema Skin: Ulcer/ Wound - L [place] with surrounding erythema IV Site: Peripheral, without redness Musculoskeletal: No Tenderness to Palpation of Joints or Extremities Neurological: Cranial nerves II-XII grossly intact - Assessment/Plan Antibiotics: [] Assessment/Plan: [] Active and Suspected Problems (Last Reviewed 04/11/20 @ 14:[address] Yefri Rubio MD) Acute diarrhea (Acute) Hypokalemia (Acute) Cellulitis (Acute) L [place] infected ulcer - most recent cxs with pseudomonas. Cx here pending. Cont iv vanc, change ceftriaxone to cefepime for empiric PsA coverage. Dr. Nova following. 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 Plan on long taper. Will follow, thank you.
[2020-05-27] MEDS: Aspirin E.C. 81 MG Tablet PO (21:43)
[2020-05-27] MEDS: Levothyroxine 137 MCG Tablet PO (21:44)
[2020-05-27] MEDS: Atorvastatin Calcium 20 MG Tablet PO (21:44)
[2020-05-27] MEDS: Doxepin Hydrochloride 10 MG Capsule PO (21:44)
[2020-05-28] VITALS (13 sets, daily range): BP systolic 101–139; BP diastolic 50–71; PULSE 82–118; RESP 16–18; TEMP 36.6–37.3; O2SAT 93–100
[2020-05-28] MEDS: 0.9% Normal Saline 1,000 ML 100 ML IV (03:34)
[2020-05-28] MEDS: Menthol/Lanolin/Calamine/Znox 113 GM Tube 1 APPLIC TOPICAL ×3 (05:37→23:07)
[2020-05-28 06:20] LABS: Absolute Neutrophil Count 6.3 X10^3/uL (2.0-7.7); Basophil# 0.03 X10^3/uL; Basophil% 0.3 % (0-1); Eosinophil# 1.06 X10^3/uL; Eosinophils% 11.4 % (0-5); Hematocrit 35.8 % (37-47); Hemoglobin 11.2 g/dL (12.0-15.0); Mean Corp Hgb Conc 31.3 g/dL (32-36); Mean Corpuscular Hgb 28.3 pg (27.0-32.0); Mean Corpuscular Volume 90.4 fL (81-99); Mean Platelet Vol. 8.9 fl (6.2-12.0); Monocyte# 0.56 X10^3/uL; NRBC Flagged by Analyzer 0 % (0-5); Neutrophil # 6.33 X10^3/uL (2.7-7.7); Platelet Count 210 K/mm3 (150-450); RBC Distribution Width CV 14.7 % (11.6-14.6); RBC Distribution Width SD 48.8 fl (35.1-43.9); Red Blood Count 3.96 M/mm3 (4.2-5.4); White Blood Count 9.3 K/mm3 (4.4-11.0)
[2020-05-28 06:47] LABS: ALB/GLOB Ratio 0.6 RATIO (0.9-2.4); AST(SGOT) 22 U/L (15-37); Alanine Aminotransfer ALT/SGPT 12 U/L (13-56); Albumin, Serum 2.3 g/dL (3.2-5.0); Alkaline Phosphatase 85 U/L (45-117); Anion Gap 4 (5-15); BUN 5 mg/dL (7-18); BUN/Creat Ratio 10.8 RATIO (10-20); Calcium,Total 7.7 mg/dL (8.5-10.1); Chloride 110 mmol/L (98-107); Creatinine, Serum 0.46 mg/dL (0.55-1.02); EST Glomerular Filtration Rate 141 mL/min (>60); Est Glom Filt Rate - Afr Amer 170 mL/min (>60); Estimated Creatinine Clearance 49.04 ml/min; Globulin 3.7 g/dL (2.2-4.2); Glucose 85 mg/dL (74-106); Potassium 3.3 mmol/L (3.5-5.1); Sodium Level 140 mmol/L (136-145)
--- NOTE | 2020-05-28 10:20 | PN_ITS ---
Patient Problems: Active and Suspected Problems (Last Reviewed 04/11/20 @ 14:[address] Yefri Rubio MD) Acute diarrhea (Acute) Hypokalemia (Acute) Cellulitis (Acute) Reason for Visit: Follow-up on left lower extremity cellulitis/ulcer and acute C. difficile. Subjective: Patient was seen and examined. She feels much better. She had about 6 bowel movements yesterday. Denies any fever or chills. No acute events overnight. Objective: Physical exam: Vitals/I&O's: Vital Signs Temp Pulse Resp BP Pulse Ox 99.2 F H 106 H 18 139/52 H 97 05/28/20 09:40 05/28/20 09:40 05/28/20 09:40 05/28/20 09:40 05/28/20 09:40 Oxygen Flow Rate (L/min) 2 Oxygen Delivery Method Room Air Weight: 60.2 kg Body Mass Index (BMI) 26.8 Intake and Output for Last 24 Hours 05/26/20 05/27/20 05/28/20 23:59 23:59 23:59 Intake Total 3334 / 3334 1195 / 1195 Balance 3334 / 3334 1195 / 1195 General: Alert, Oriented x3, Cooperative, No apparent distress HEENT: Atraumatic, PERRLA, EOMI, Normocephalic Oral: Moist Mucosa Neck: Supple Lungs: Diminished - especially at lung bases Cardiovascular: Regular rate, Regular Rhythm, Normal S1, Normal S2, No murmurs Abdomen: Bowel Sounds Present, Soft, Non Tender, Non-Distended, No Hepato- splenomegaly Extremities: Edema - bilateral pedal edema +2, left lower leg is HOLLIE-wrapped. Skin: - - see under extremities Musculoskeletal: No Tenderness to Palpation of Joints or Extremities Lymphatic: No Cervical, Supraclavicular, or Inguinal Adenopathy Neurological: Cranial nerves II-XII grossly intact, Neuro grossly intact Psych/Mental Status: Normal Affect, Appropriate Microbiology Past 72 Hours 05/27/20 01:15 Stool Enteric Bacteriology - Final 05/27/20 01:50 Wound - Leg, Left Gram Stain - Final 05/27/20 01:15 Stool C. difficile GDH Antigen & Toxins - Final Toxigenic C. difficile 05/27/20 01:15 Stool C. difficile DNA Amplification - Final Laboratory Results 05/28/20 06:08: WBC 9.3, RBC 3.96 L, Hgb 11.2 L, Hct 35.8 L, MCV 90.4, MCH 28.3, MCHC 31.3 L, RDW Std Deviation 48.8 H, RDW Coeff of Naseem 14.7 H, Plt Count 210, MPV 8.9, Immature Gran % (Auto) 0.300, Neut % (Auto) 68.0, Lymph % (Auto) 14.0 L , [place] % (Auto) 6.0, Eos % (Auto) 11.4 H, Baso % (Auto) 0.3, Absolute Neuts (auto) 6.3, Absolute Lymphs (auto) 1.30, Nucleated RBC % 0 05/28/20 06:08: Sodium 140, Potassium 3.3 L, Chloride 110 H, Carbon Dioxide 26.0, Anion Gap 4 L, BUN 5 L, Creatinine 0.46 L, Estim Creat Clear Calc 49.04, Est GFR (MDRD) Af Amer 170, Est GFR (MDRD) Non-Af 141, BUN/Creatinine Ratio 10.8, Glucose 85, Calcium 7.7 L, Total Bilirubin 0.50, AST 22, ALT 12 L, Alkaline Phosphatase 85, Total Protein 6.0 L, Albumin 2.3 L, Globulin 3.7, Albumin/Globulin Ratio 0.6 L Current Medications Acetaminophen (Tylenol) 650 mg PO Q6H PRN PRN PRN Reason: Pain Score 1-10/Temp > 100.7 F Al Hydroxide/Mg Hydroxide (Mylanta Ii) 30 ml PO Q6H PRN PRN PRN Reason: Gastric Burning Albuterol Sulfate (Ventolin Aerosols) 2.5 mg INHALATION Q2H PRN PRN PRN Reason: Dyspnea, wheezing Aspirin (Ecotrin) 81 mg PO QHS [facility] Last Admin: 05/27/20 21:43 Dose: 81 mg Documented by: Atorvastatin Calcium (Lipitor) 20 mg PO QHS [facility] Last Admin: 05/27/20 21:44 Dose: 20 mg Documented by: Calamine/Phenol (Calmoseptine Ointment) 1 applic TOPICAL TID NEIL; Protocol Last Admin: 05/28/20 05:37 Dose: 1 applicatio Documented by: Collagenase (Santyl) 1 applic TOPICAL DAILY [facility]; Protocol Dextrose (D50w Syringe) 0 gm IV X1 PRN; Protocol PRN Reason: Hypoglycemia Doxepin HCl (Sinequan) 10 mg PO QHS [facility] Last Admin: 05/27/20 21:44 Dose: 10 mg Documented by: Enoxaparin Sodium (Lovenox) 40 mg SC DAILY [facility] Last Admin: 05/27/20 09:44 Dose: 40 mg Documented by: Glucagon () 1 mg IM .X1 PRN PRN Reason: Hypoglycemia Guaifenesin (Robitussin) 20 ml PO Q4H PRN PRN PRN Reason: COUGH Hydralazine HCl (Apresoline Iv) 10 mg IV Q4H PRN PRN PRN Reason: SBP > 160 Sodium Chloride () 1,000 mls @ 100 mls/hr IV .Q10H [facility] Last Admin: 05/28/20 03:34 Dose: 100 mls/hr Documented by: Vancomycin IV Pharmacy to Dose (1 ea/ Sodium Chloride) 500 mls @ 250 mls/hr IV X1 PRN; Protocol PRN Reason: Rx to Dose Vancomycin HCl (Vancomycin) 1,000 mg in 200 mls @ 200 mls/hr IV Q12H [facility] Last Infusion: 05/28/20 00:52 Dose: Infused Documented by: Sodium Chloride () 250 mls @ 15 mls/hr IV .[id number] PRN PRN Reason: Saline Flush Sodium Chloride () 250 mls @ 15 mls/hr IV .[id number] PRN PRN Reason: Additional IVPB Infusion Cefepime HCl 1 gm/ Sodium (Chloride) 50 mls @ 100 mls/hr IV Q12 [facility] Last Infusion: 05/27/20 17:11 Dose: Infused Documented by: Lactobacillus Acidophilus (Acidophilus) 1 tablet PO BID [facility] Last Admin: 05/27/20 21:43 Dose: 1 tablet Documented by: Levothyroxine Sodium (Synthroid) 137 mcg PO QHS [facility] Last Admin: 05/27/20 21:44 Dose: 137 mcg Documented by: Melatonin (Melatonin) 3 mg PO QHS PRN PRN PRN Reason: INSOMNIA Metoprolol Tartrate (Lopressor (Beta Mehran)) 5 mg IV Q6H PRN PRN PRN Reason: sustained tachycardia > 130 Metoprolol Tartrate (Lopressor (Beta Mehran)) 50 mg PO DAILY [facility] Last Admin: 05/27/20 09:43 Dose: 50 mg Documented by: Metoprolol Tartrate (Lopressor (Beta Mehran)) 100 mg PO QHS [facility] Last Admin: 05/27/20 21:44 Dose: 100 mg Documented by: Morphine Sulfate () 2 mg IV Q3H PRN PRN PRN Reason: Pain Score 6-10/10 Nutritional Formula (Lactose Free) (Ensure Clear) 120 ml PO 4X/DAY [facility] Last Admin: 05/27/20 21:44 Dose: 120 ml Documented by: Ondansetron HCl (Zofran) 4 mg IV Q8H PRN PRN PRN Reason: NAUSEA/VOMITING Oxycodone HCl (Oxyir) 5 mg PO Q4H PRN PRN PRN Reason: Pain Score 4-5/10 Pentoxifylline (Trental) 400 mg PO DAILY [facility] Last Admin: 05/27/20 09:43 Dose: 400 mg Documented by: Prochlorperazine Edisylate (Compazine Iv) 5 mg IV Q4H PRN PRN PRN Reason: Breakthrough Nausea/Vomiting Sodium Chloride () 10 - 40 ml IV UD PRN PRN Reason: SALINE FLUSH Throat Lozenges (Cepacol Sore Throat Lozenge) 1 lozenge MUCOUS MEM Q2H PRN PRN PRN Reason: SORE THROAT Vancomycin HCl () 125 mg PO Q6 [facility] Last Admin: 05/28/20 05:37 Dose: 125 mg Documented by: STROKE Vital Signs/Narrative: Vital Signs Temp Pulse Resp BP Pulse Ox 05/28/20 09:40 99.2 F H 106 H 18 139/52 H 97 05/28/20 08:12 93 05/28/20 07:00 90 Medical Necessity - Tobacco Use Smoking Status: Former smoker Tobacco Use: Non-smoker Assessment/Plan All Active Problems (Last Reviewed 04/11/20 @ 14:[address] Yefri Rubio MD) Acute diarrhea (Acute) Hypokalemia (Acute) Cellulitis (Acute) Hx of knee surgery (Acute) History of hip surgery (Acute) Hx of tubal ligation (Acute) Pseudomonas aeruginosa colonization (Acute) Cellulitis of left leg (Acute) Colonization status (Acute) Diarrhea (Acute) Tachycardia (Acute) C. difficile colitis (Resolved) Ulcer of left lower extremity, limited to breakdown of skin (Acute) Colitis (Acute) 1. Acute left lower extremity cellulitis in the setting of chronic left lower extremity wound Recent cultures grew Pseudomonas/strep Stable vitals, blood cultures pending Podiatry and ID consulted; on IV vancomycin and cefepime 2. Recurrent C. difficile, still with significant amounts of diarrhea, on oral vancomycin and lactobacillus, Long taper vancomycin as planned. 3. Electrolyte imbalances -hypokalemia, hypomagnesemia, replaced, recheck in a.m. 4. Hypothyroidism, continue on Synthroid 5. Hypertension, controlled, continue metoprolol and PRN hydralazine 6. Hyperlipidemia, continue on statins 7. DVT prophylaxis with Lovenox subcu Inpatient E&M: 80895 Subs Hosp L2
[2020-05-28] MEDS: Enoxaparin 40 MG/0.4 ML Syringe SC (10:41)
[2020-05-28] MEDS: Pentoxifylline 400 MG Tablet PO (10:41)
[2020-05-28] MEDS: Ensure Clear 120 ML Liquid PO ×2 (10:41→16:03)
[2020-05-28] MEDS: Metoprolol Tartrate 50 MG Tablet PO (10:41)
--- NOTE | 2020-05-28 10:41 | PN.ID_ITS ---
Patient Problems: Active and Suspected Problems (Last Reviewed 04/11/20 @ 14:[address] Yefri Rubio MD) Acute diarrhea (Acute) Hypokalemia (Acute) Cellulitis (Acute) Subjective: Feeling better, no fever, still diarrhea. No abd pain. - Physical Exam Vitals/I&O's: Vital Signs Temp Pulse Resp BP Pulse Ox 99.2 F H 106 H 18 139/52 H 97 05/28/20 09:40 05/28/20 09:40 05/28/20 09:40 05/28/20 09:40 05/28/20 09:40 Oxygen Flow Rate (L/min) 2 Oxygen Delivery Method Room Air Weight: 60.2 kg Body Mass Index (BMI) 26.8 Intake and Output for Last 24 Hours 05/26/20 05/27/20 05/28/20 23:59 23:59 23:59 Intake Total 3334 / 3334 1195 / 1195 Balance 3334 / 3334 1195 / 1195 General: Alert, Cooperative, No apparent distress Lungs: Clear to auscultation, Normal air movement Cardiovascular: Regular rate, Regular Rhythm Abdomen: Soft, Non Tender, Non-Distended Skin: Ulcer/ Wound - LLE less red Microbiology Past 72 Hours 05/27/20 01:15 Stool Enteric Bacteriology - Final 05/27/20 01:50 Wound - Leg, Left Gram Stain - Final 05/27/20 01:15 Stool C. difficile GDH Antigen & Toxins - Final Toxigenic C. difficile 05/27/20 01:15 Stool C. difficile DNA Amplification - Final Laboratory Results 05/28/20 06:08: WBC 9.3, RBC 3.96 L, Hgb 11.2 L, Hct 35.8 L, MCV 90.4, MCH 28.3, MCHC 31.3 L, RDW Std Deviation 48.8 H, RDW Coeff of Naseem 14.7 H, Plt Count 210, MPV 8.9, Immature Gran % (Auto) 0.300, Neut % (Auto) 68.0, Lymph % (Auto) 14.0 L , [place] % (Auto) 6.0, Eos % (Auto) 11.4 H, Baso % (Auto) 0.3, Absolute Neuts (auto) 6.3, Absolute Lymphs (auto) 1.30, Nucleated RBC % 0 05/28/20 06:08: Sodium 140, Potassium 3.3 L, Chloride 110 H, Carbon Dioxide 26.0, Anion Gap 4 L, BUN 5 L, Creatinine 0.46 L, Estim Creat Clear Calc 49.04, Est GFR (MDRD) Af Amer 170, Est GFR (MDRD) Non-Af 141, BUN/Creatinine Ratio 10.8, Glucose 85, Calcium 7.7 L, Total Bilirubin 0.50, AST 22, ALT 12 L, Alkaline Phosphatase 85, Total Protein 6.0 L, Albumin 2.3 L, Globulin 3.7, Albumin/Globulin Ratio 0.6 L Current Medications Acetaminophen (Tylenol) 650 mg PO Q6H PRN PRN PRN Reason: Pain Score 1-10/Temp > 100.7 F Al Hydroxide/Mg Hydroxide (Mylanta Ii) 30 ml PO Q6H PRN PRN PRN Reason: Gastric Burning Albuterol Sulfate (Ventolin Aerosols) 2.5 mg INHALATION Q2H PRN PRN PRN Reason: Dyspnea, wheezing Aspirin (Ecotrin) 81 mg PO QHS [facility] Last Admin: 05/27/20 21:43 Dose: 81 mg Documented by: Atorvastatin Calcium (Lipitor) 20 mg PO QHS [facility] Last Admin: 05/27/20 21:44 Dose: 20 mg Documented by: Calamine/Phenol (Calmoseptine Ointment) 1 applic TOPICAL TID [facility]; Protocol Last Admin: 05/28/20 05:37 Dose: 1 applicatio Documented by: Collagenase (Santyl) 1 applic TOPICAL DAILY [facility]; Protocol Dextrose (D50w Syringe) 0 gm IV X1 PRN; Protocol PRN Reason: Hypoglycemia Doxepin HCl (Sinequan) 10 mg PO QHS [facility] Last Admin: 05/27/20 21:44 Dose: 10 mg Documented by: Enoxaparin Sodium (Lovenox) 40 mg SC DAILY [facility] Last Admin: 05/27/20 09:44 Dose: 40 mg Documented by: Glucagon () 1 mg IM .X1 PRN PRN Reason: Hypoglycemia Guaifenesin (Robitussin) 20 ml PO Q4H PRN PRN PRN Reason: COUGH Hydralazine HCl (Apresoline Iv) 10 mg IV Q4H PRN PRN PRN Reason: SBP > 160 Sodium Chloride () 1,000 mls @ 50 mls/hr IV .Q20H [facility] Last Admin: 05/28/20 03:34 Dose: 100 mls/hr Documented by: Vancomycin IV Pharmacy to Dose (1 ea/ Sodium Chloride) 500 mls @ 250 mls/hr IV X1 PRN; Protocol PRN Reason: Rx to Dose Vancomycin HCl (Vancomycin) 1,000 mg in 200 mls @ 200 mls/hr IV Q12H [facility] Last Infusion: 05/28/20 00:52 Dose: Infused Documented by: Sodium Chloride () 250 mls @ 15 mls/hr IV .[id number] PRN PRN Reason: Saline Flush Sodium Chloride () 250 mls @ 15 mls/hr IV .[id number] PRN PRN Reason: Additional IVPB Infusion Cefepime HCl 1 gm/ Sodium (Chloride) 50 mls @ 100 mls/hr IV Q12 [facility] Last Admin: 05/28/20 10:19 Dose: 100 mls/hr Documented by: Lactobacillus Acidophilus (Acidophilus) 1 tablet PO BID [facility] Last Admin: 05/27/20 21:43 Dose: 1 tablet Documented by: Levothyroxine Sodium (Synthroid) 137 mcg PO QHS [facility] Last Admin: 05/27/20 21:44 Dose: 137 mcg Documented by: Melatonin (Melatonin) 3 mg PO QHS PRN PRN PRN Reason: INSOMNIA Metoprolol Tartrate (Lopressor (Beta Mehran)) 5 mg IV Q6H PRN PRN PRN Reason: sustained tachycardia > 130 Metoprolol Tartrate (Lopressor (Beta Mehran)) 50 mg PO DAILY [facility] Last Admin: 05/27/20 09:43 Dose: 50 mg Documented by: Metoprolol Tartrate (Lopressor (Beta Mehran)) 100 mg PO QHS [facility] Last Admin: 05/27/20 21:44 Dose: 100 mg Documented by: Morphine Sulfate () 2 mg IV Q3H PRN PRN PRN Reason: Pain Score 6-10/10 Nutritional Formula (Lactose Free) (Ensure Clear) 120 ml PO 4X/DAY [facility] Last Admin: 05/27/20 21:44 Dose: 120 ml Documented by: Ondansetron HCl (Zofran) 4 mg IV Q8H PRN PRN PRN Reason: NAUSEA/VOMITING Oxycodone HCl (Oxyir) 5 mg PO Q4H PRN PRN PRN Reason: Pain Score 4-5/10 Pentoxifylline (Trental) 400 mg PO DAILY [facility] Last Admin: 05/27/20 09:43 Dose: 400 mg Documented by: Potassium Chloride (K-Dur) 60 meq PO X1 ONE Stop: 05/28/20 10:23 Potassium Chloride (K-Dur) 20 meq PO BIDCM [facility] Sodium Chloride () 10 - 40 ml IV UD PRN PRN Reason: SALINE FLUSH Throat Lozenges (Cepacol Sore Throat Lozenge) 1 lozenge MUCOUS MEM Q2H PRN PRN PRN Reason: SORE THROAT Vancomycin HCl () 125 mg PO Q6 [facility] Last Admin: 05/28/20 05:37 Dose: 125 mg Documented by: Medical Necessity - Tobacco Use Smoking Status: Former smoker Tobacco Use: Non-smoker Route of nutrition/ use of supplements: [] Nutritional Intake: [] IV Site: [] [place] Catheter: [] - Assessment/Plan Antibiotics: [] Assessment/Plan: [] Active and Suspected Problems (Last Reviewed 04/11/20 @ 14:[address] Yefri Rubio MD) Acute diarrhea (Acute) Hypokalemia (Acute) Cellulitis (Acute) L [place] infected ulcer - most recent cxs with pseudomonas. Cx here pending. Cont iv vanc with cefepime for empiric PsA coverage. Dr. Nova following. Leg is less red today. Overall she is feeling better. 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 Plan on long taper. Will follow
[2020-05-28] MEDS: Collagenase 30gm Tube 1 APPLIC TOPICAL (10:42)
[2020-05-28 12:30] LABS: Vancomycin, Trough Level 15.4 ug/mL (5.0-15.0)
[2020-05-28 12:33] LABS: Magnesium 2.1 mg/dL (1.6-2.6)
--- NOTE | 2020-05-28 12:37 | MRI_ITS ---
PROCEDURE: MRI LOWER EXTREMITY LEFT TIBIA/FIBULA REASON FOR EXAM: Female, 69 years old. LEFT lateral distal tib/fib wound, cellulitis x 1 year TECHNIQUE: Standardized fat and water weighted pulse sequences were obtained in all 3 orthogonal planes. COMPARISON: X-ray of the left tibia and fibula dated May 27, 2020 FINDINGS: Mild cortical erosion of the lateral aspect of the distal one third fibular shaft corresponds to the finding seen on the recent plain film refer to images 11 and 12 series #5 coronal T1 sequence. Both mature consolidated periosteal reaction as well as spiculated new acute periosteal reaction is present along the lateral cortex of the fibula most prominent near the area of cortical erosion/acute osteomyelitis. Moderate edema is present in the subcutaneous tissues of the anterior lateral aspect of the left lower leg. Some mild intramuscular edema is also present in the anterior compartment of the left mid to distal two thirds aspect of the leg. No intramuscular abscess is seen. A tiny amount of layering fluid along the fascial plane of the anterior tibialis muscle noted. The posterior muscle compartment. Unremarkable neurovascular structures. The tibia is unremarkable. The right lower leg is included in the [id number] on several sequences, with normal bone marrow signal in the tibia and fibula. There is diffuse and significant atrophy of the muscles of the right lower leg as well as the left lower leg. There is no solid, cystic or lipomatous mass lesion of the subcutis adipose space. MRI/Lower Ext/No Jt/w/o IMPRESSION: 1. Acute on chronic osteomyelitis of the distal one third aspect of the left fibula. Mild cortical erosion is present on the lateral cortical surface with surrounding periosteal reaction. 2. Mild inflammation/infection of the overlying muscle fibers without an abscess. Electronically Signed: Carlos Navarro MD at 18:12 EDT , Service support ,
--- NOTE | 2020-05-28 12:39 | PCM.PROGNOTE ---
Patient Problems: Active and Suspected Problems (Last Reviewed 04/11/20 @ 14:[address] Yefri Rubio MD) Acute diarrhea (Acute) Hypokalemia (Acute) Cellulitis (Acute) Subjective: Patient was seen for follow up left leg ulcer. She is resting comfortably in chair, WBC now normal. Patient's temp is 99.2. Patients daughter at bedside. She still has diarrhea. She has no new complaints. - Physical Exam Vitals/I&O's: Vital Signs Temp Pulse Resp BP Pulse Ox 99.2 F H 106 H 18 139/52 H 97 05/28/20 09:40 05/28/20 10:41 05/28/20 09:40 05/28/20 10:41 05/28/20 09:40 Oxygen Flow Rate (L/min) 2 Oxygen Delivery Method Room Air Weight: 60.2 kg Body Mass Index (BMI) 26.8 Intake and Output for Last 24 Hours 05/26/20 05/27/20 05/28/20 23:59 23:59 23:59 Intake Total 3334 / 3334 1974 Balance 3334 / 3334 1974 General: Alert, Oriented x3, Cooperative, No apparent distress Extremities: Capillary Refill Less than 3 Seconds, - - Chronic ulceration to the left leg with fibrogranular base with smaller satellite wounds around the periphery, margins viable, there is some serous drainage, there is no cellulitis, the ulcerations down to subcutaneous tissue, no maloder, no streaking, no visible abscess, no crepitus, no fluctuance - there is pain to the sites. There is no evidence of acute ischemia to the foot, ankle or leg - left Psych/Mental Status: Appropriate, Alert and oriented to time, place, person, mood and affect Microbiology Past 72 Hours 05/27/20 01:50 Wound - Leg, Left Gram Stain - Final 05/27/20 01:50 Wound - Leg, Left Wound Culture - Preliminary Beta hemolytic organism Gram positive organism 05/27/20 01:15 Stool Enteric Bacteriology - Final 05/27/20 01:15 Stool C. difficile GDH Antigen & Toxins - Final Toxigenic C. difficile 05/27/20 01:15 Stool C. difficile DNA Amplification - Final Laboratory Results 05/28/20 06:08: WBC 9.3, RBC 3.96 L, Hgb 11.2 L, Hct 35.8 L, MCV 90.4, MCH 28.3, MCHC 31.3 L, RDW Std Deviation 48.8 H, RDW Coeff of Naseem 14.7 H, Plt Count 210, MPV 8.9, Immature Gran % (Auto) 0.300, Neut % (Auto) 68.0, Lymph % (Auto) 14.0 L, Desha % (Auto) 6.0, Eos % (Auto) 11.4 H, Baso % (Auto) 0.3, Absolute Neuts (auto) 6.3, Absolute Lymphs (auto) 1.30, Nucleated RBC % 0 05/28/20 06:08: Sodium 140, Potassium 3.3 L, Chloride 110 H, Carbon Dioxide 26.0, Anion Gap 4 L, BUN 5 L, Creatinine 0.46 L, Estim Creat Clear Calc 49.04, Est GFR (MDRD) Af Amer 170, Est GFR (MDRD) Non-Af 141, BUN/Creatinine Ratio 10.8, Glucose 85, Calcium 7.7 L, Total Bilirubin 0.50, AST 22, ALT 12 L, Alkaline Phosphatase 85, Total Protein 6.0 L, Albumin 2.3 L, Globulin 3.7, Albumin/Globulin Ratio 0.6 L 05/28/20 11:32: Vancomycin Trough 15.4 H 05/28/20 11:32: Magnesium 2.1 Current Medications Acetaminophen (Tylenol) 650 mg PO Q6H PRN PRN PRN Reason: Pain Score 1-10/Temp > 100.7 F Al Hydroxide/Mg Hydroxide (Mylanta Ii) 30 ml PO Q6H PRN PRN PRN Reason: Gastric Burning Albuterol Sulfate (Ventolin Aerosols) 2.5 mg INHALATION Q2H PRN PRN PRN Reason: Dyspnea, wheezing Aspirin (Ecotrin) 81 mg PO QHS [facility] Last Admin: 05/27/20 21:43 Dose: 81 mg Documented by: Atorvastatin Calcium (Lipitor) 20 mg PO QHS [facility] Last Admin: 05/27/20 21:44 Dose: 20 mg Documented by: Calamine/Phenol (Calmoseptine Ointment) 1 applic TOPICAL TID [facility]; Protocol Last Admin: 05/28/20 05:37 Dose: 1 applicatio Documented by: Collagenase (Santyl) 1 applic TOPICAL DAILY [facility]; Protocol Last Admin: 05/28/20 10:42 Dose: 1 applicatio Documented by: Dextrose (D50w Syringe) 0 gm IV X1 PRN; Protocol PRN Reason: Hypoglycemia Doxepin HCl (Sinequan) 10 mg PO QHS [facility] Last Admin: 05/27/20 21:44 Dose: 10 mg Documented by: Enoxaparin Sodium (Lovenox) 40 mg SC DAILY [facility] Last Admin: 05/28/20 10:41 Dose: 40 mg Documented by: Glucagon () 1 mg IM .X1 PRN PRN Reason: Hypoglycemia Guaifenesin (Robitussin) 20 ml PO Q4H PRN PRN PRN Reason: COUGH Hydralazine HCl (Apresoline Iv) 10 mg IV Q4H PRN PRN PRN Reason: SBP > 160 Sodium Chloride () 1,000 mls @ 50 mls/hr IV .Q20H [facility] Last Infusion: 05/28/20 10:52 Dose: 50 mls/hr Documented by: Vancomycin IV Pharmacy to Dose (1 ea/ Sodium Chloride) 500 mls @ 250 mls/hr IV X1 PRN; Protocol PRN Reason: Rx to Dose Vancomycin HCl (Vancomycin) 1,000 mg in 200 mls @ 200 mls/hr IV Q12H [facility] Last Infusion: 05/28/20 00:52 Dose: Infused Documented by: Sodium Chloride () 250 mls @ 15 mls/hr IV .[id number] PRN PRN Reason: Saline Flush Sodium Chloride () 250 mls @ 15 mls/hr IV .[id number] PRN PRN Reason: Additional IVPB Infusion Cefepime HCl 1 gm/ Sodium (Chloride) 50 mls @ 100 mls/hr IV Q12 [facility] Last Infusion: 05/28/20 10:53 Dose: Infused Documented by: Lactobacillus Acidophilus (Acidophilus) 1 tablet PO BID [facility] Last Admin: 05/28/20 10:41 Dose: 1 tablet Documented by: Levothyroxine Sodium (Synthroid) 137 mcg PO QHS [facility] Last Admin: 05/27/20 21:44 Dose: 137 mcg Documented by: Melatonin (Melatonin) 3 mg PO QHS PRN PRN PRN Reason: INSOMNIA Metoprolol Tartrate (Lopressor (Beta Mehran)) 5 mg IV Q6H PRN PRN PRN Reason: sustained tachycardia > 130 Metoprolol Tartrate (Lopressor (Beta Mehran)) 50 mg PO DAILY [facility] Last Admin: 05/28/20 10:41 Dose: 50 mg Documented by: Metoprolol Tartrate (Lopressor (Beta Mehran)) 100 mg PO QHS [facility] Last Admin: 05/27/20 21:44 Dose: 100 mg Documented by: Morphine Sulfate () 2 mg IV Q3H PRN PRN PRN Reason: Pain Score 6-10/10 Nutritional Formula (Lactose Free) (Ensure Clear) 120 ml PO 4X/DAY [facility] Last Admin: 05/28/20 10:41 Dose: 120 ml Documented by: Ondansetron HCl (Zofran) 4 mg IV Q8H PRN PRN PRN Reason: NAUSEA/VOMITING Oxycodone HCl (Oxyir) 5 mg PO Q4H PRN PRN PRN Reason: Pain Score 4-5/10 Pentoxifylline (Trental) 400 mg PO DAILY [facility] Last Admin: 05/28/20 10:41 Dose: 400 mg Documented by: Potassium Chloride (K-Dur) 20 meq PO BIDCM [facility] Sodium Chloride () 10 - 40 ml IV UD PRN PRN Reason: SALINE FLUSH Throat Lozenges (Cepacol Sore Throat Lozenge) 1 lozenge MUCOUS MEM Q2H PRN PRN PRN Reason: SORE THROAT Vancomycin HCl () 125 mg PO Q6 [facility] Last Admin: 05/28/20 05:37 Dose: 125 mg Documented by: Medical Necessity - Tobacco Use Smoking Status: Former smoker Tobacco Use: Non-smoker Assessment/Plan All Active Problems (Last Reviewed 04/11/20 @ 14:[address] Yefri Rubio MD) Acute diarrhea (Acute) Hypokalemia (Acute) Cellulitis (Acute) Hx of knee surgery (Acute) History of hip surgery (Acute) Hx of tubal ligation (Acute) Pseudomonas aeruginosa colonization (Acute) Cellulitis of left leg (Acute) Colonization status (Acute) Diarrhea (Acute) Tachycardia (Acute) C. difficile colitis (Resolved) Ulcer of left lower extremity, limited to breakdown of skin (Acute) Colitis (Acute) Left leg ulceration down to subcutaneous ulcer - chronic Cellulitis left lower extremity -improved Peripheral vascular disease lower extremity - chronic Diarrhea w/ c. diff Multiple comorbidities Left leg ulceration is chronic, there is no clinical residual cellulitis at this time. A wound culture has been obtained and pending. Patient is on IV Ceftriaxone, patient also w/ c diff, ID service/ Dr. De La Cruz consulted. Reviewed left tib/fib xrays - noted osseous changes - ordered MRI for further evaluation. Discussed surgical wound debridement in OR using Versajet and Aminofill, reviewed procedure. She would like to proceed w/ this tomorrow. In meantime we will resume santyl to the wound daily, which was completed. Keep ulcer offloaded, keep elevated and proceed with light compression. Today the wound was cleansed w/ normal saline solution, applied santyl, adaptic and overlying kerlix and bereket dressing.
[2020-05-28] MEDS: Vancomycin IV 1,000 MG/200 ML BAG 200 MG IV ×2 (12:55→23:07)
--- NOTE | 2020-05-28 13:36 | PCM.RX.CS ---
Consult Pharmacy has been consulted to manage selected antiobiotic: Vancomycin Type of Consult: Follow-up Suspected Infection: Skin/Soft tissue Labs: Sodium 140 mmol/L (136-145) 05/28/20 06:08 Potassium 3.3 mmol/L (3.5-5.1) L 05/28/20 06:08 Chloride 110 mmol/L (98-107) H 05/28/20 06:08 Carbon Dioxide 26.0 mmol/L (21.0-32.0) 05/28/20 06:08 Anion Gap 4 (5-15) L 05/28/20 06:08 BUN 5 mg/dL (7-18) L 05/28/20 06:08 Creatinine 0.46 mg/dL (0.55-1.02) L 05/28/20 06:08 Est GFR (MDRD) Af Amer 170 mL/min (>60) 05/28/20 06:08 Est GFR (MDRD) Non-Af 141 mL/min (>60) 05/28/20 06:08 BUN/Creatinine Ratio 10.8 RATIO (-20) 05/28/20 06:08 Glucose 85 mg/dL (74-106) 05/28/20 06:08 Vancomycin Trough 15.4 ug/mL (5.0-15.0) H 05/28/20 11:32 Microbiology: Microbiology 05/27/20 01:50 Wound - Leg, Left Gram Stain - Final 05/27/20 01:50 Wound - Leg, Left Wound Culture - Preliminary Beta hemolytic organism Gram positive organism 05/27/20 01:15 Stool Enteric Bacteriology - Final 05/27/20 01:15 Stool C. difficile GDH Antigen & Toxins - Final Toxigenic C. difficile 05/27/20 01:15 Stool C. difficile DNA Amplification - Final Goal Trough: 15-20 mcg/mL Pharmacy Plan for Drug Dosing: VANCOMYCIN LEVEL RECEIVED Consulting Physician: NIKKO Indication: CELLULITIS Goal Trough: 15-20 SrCr: 0.46 (ROUNDED UP TO 0.6 D/T AGE) CrCl: 68.6 ML/MIN Current Vancomycin Dose: 1000MG Q12 Number of Doses Received: 3 Vancomycin Level: 15.4 MG/DL Hours Since Last Dose: 11.5 Lab/Micro: GPC IN WOUND CX Vancomycin Plan/Comments: CONTINUE SAME REGIMEN, GET LEVEL IN 4 DAYS Pharmacy Service will continue to monitor and adjust dosing as required. Labs to be done on [date and time ordered]: 06/01/20 @ 0351
[2020-05-28] MEDS: 0.9% Saline Lock 10 ML Syringe IV (16:03)
[2020-05-28] MEDS: Aspirin E.C. 81 MG Tablet PO (22:28)
[2020-05-28] MEDS: Atorvastatin Calcium 20 MG Tablet PO (22:28)
[2020-05-28] MEDS: 0.9% Normal Saline 1,000 ML 50 ML IV (22:28)
[2020-05-28] MEDS: Levothyroxine 137 MCG Tablet PO (22:28)
[2020-05-28] MEDS: Doxepin Hydrochloride 10 MG Capsule PO (22:28)
[2020-05-28] MEDS: Metoprolol Tartrate 100 MG Tablet PO (22:31)
[2020-05-29] VITALS (18 sets, daily range): BP systolic 128–151; BP diastolic 63–97; PULSE 79–124; RESP 16–25; TEMP 36.4–37.5; O2SAT 92–100; BMI 26.8
--- NOTE | 2020-05-29 | BON_PTH ---
PATIENT: LUCIE DUPONT LOC: [facility] U#:[id number] AGE/SX: 69/F ROOM: [facility] RE05/27/[address]: Dr. Reina Holley MD : [id number] BED: 1 DIS: 05/31/2020 SPEC #: [id number] RECD: 05/29/20 10:18 STATUS: JACKELYN REQ #: [id number] ISAMAR: 05/29/20 00:[address]: Abby Cooper DEPT: SURGICAL PATHOLOGY RECD BY: Fazal Pereyra ENTERED: 05/29/20 10:19 SP TYPE: Bone OTHR DR: MD Dr. Monserrat Spear MD Dr. David Bowman, MD Dr. Jeanna Fascione, DPM Dr. Pola De La Cruz MD Tissues: Bone of lower extremity, NOS Procedures: Decalcification bone/plaque Surgery Specimen Level III Comments: @ Ordering doctor for DEC edited from to @ by JEAN at 05/29/20 1320 @ Ordering doctor for SUIV edited from to @ by JEAN at 05/29/20 1320 @ Submitting doctor edited from to @ by JEAN at 05/29/20 1320 HEADER OPERATION: Debridement wound leg, bone biopsy PRE-OP DIAGNOSIS: Left leg ulceration down to subcutaneous ulcer TISSUE SUBMITTED: Left fibula bone biopsy MICROSCOPIC DIAGNOSIS Left fibula bone, biopsy: A piece of bone with reactive changes, negative for osteomyelitis. Attached piece of fibroadipose and skeletal muscle tissue with chronic inflammation. LAMIN:iram 06/03/20 MICROSCOPIC DESCRIPTION Slides are reviewed. GROSS DESCRIPTION Received in fixative is one container labeled with the patient's name and designated fibula bone biopsy left. The specimen consists of a piece of bone with attached soft tissue measuring 1.5 x 0.5 x 0.2 cm. The entire specimen is submitted in one cassette after decalcification. / LAMIN:iram 05/29/20 TC:3 CPT: 10480
[2020-05-29] MEDS: Menthol/Lanolin/Calamine/Znox 113 GM Tube 1 APPLIC TOPICAL ×3 (04:53→21:23)
[2020-05-29 05:03] LABS: Absolute Lymphocyte Count 2.12 X10^3/uL (0.83-4.51); Absolute Neutrophil Count 3.8 X10^3/uL (2.0-7.7); Basophil# 0.05 X10^3/uL; Basophil% 0.7 % (0-1); Eosinophil# 0.97 X10^3/uL; Eosinophils% 12.8 % (0-5); Hematocrit 36.4 % (37-47); Hemoglobin 11.5 g/dL (12.0-15.0); Lymphocyte # 2.12 X10^3/ul (4.0); Lymphocyte % 28.1 % (19-41); Mean Corp Hgb Conc 31.6 g/dL (32-36); Mean Corpuscular Hgb 28.5 pg (27.0-32.0); Mean Corpuscular Volume 90.1 fL (81-99); Mean Platelet Vol. 8.6 fl (6.2-12.0); Monocyte# 0.55 X10^3/uL; Monocyte% 7.3 % (0-10); NRBC Flagged by Analyzer 0 % (0-5); Neutrophil # 3.83 X10^3/uL (2.7-7.7); Neutrophil % 50.7 % (47-70); Platelet Count 252 K/mm3 (150-450); RBC Distribution Width CV 14.8 % (11.6-14.6); RBC Distribution Width SD 48.8 fl (35.1-43.9); Red Blood Count 4.04 M/mm3 (4.2-5.4); White Blood Count 7.6 K/mm3 (4.4-11.0)
[2020-05-29 05:38] LABS: Anion Gap 3 (5-15); BUN 2 mg/dL (7-18); BUN/Creat Ratio 4.8 RATIO (10-20); Chloride 110 mmol/L (98-107); Creatinine, Serum 0.42 mg/dL (0.55-1.02); EST Glomerular Filtration Rate 160 mL/min (>60); Est Glom Filt Rate - Afr Amer 194 mL/min (>60); Estimated Creatinine Clearance 49.04 ml/min; Glucose 88 mg/dL (74-106); Potassium 3.7 mmol/L (3.5-5.1); Sodium Level 139 mmol/L (136-145); Thyroid Stim Hormone (TSH) 2.42 uIU/mL (0.358-3.74)
--- NOTE | 2020-05-29 07:18 | RAD_ITS ---
STUDY: X-RAY - LEFT TIBIA AND FIBULA REASON FOR EXAM: Female, 69 years old. DEBRIDEMENT WOUND LEFT TIB/FIB TECHNIQUE: 5 intraoperative view(s) of the tibia and fibula were obtained. COMPARISON: None. FINDINGS: 5 limited intraoperative views were performed as patient has undergone debridement of a wound over the distal left tibia and fibula. RAD/Tibia & Fibula 2 Views IMPRESSION: Intraoperative films after debridement of a wound over the left tibia and fibula Electronically Signed: Rafiq Frost MD at 9:46 EDT , Service support ,
[2020-05-29] MEDS: Bupivacaine Mpf 0.5% 30 ML VIAL (07:45)
--- NOTE | 2020-05-29 08:09 | PCM.PN.HOSP ---
Patient Problems: Active and Suspected Problems (Last Reviewed 04/11/20 @ 14:[address] Yefri Rubio MD) Acute diarrhea (Acute) Hypokalemia (Acute) Cellulitis (Acute) Reason for Visit: Follow-up on acute C. diff, left lower extremity osteomyelitis Subjective: Patient was seen and examined. Denied any new complaints except for pain postop. Diarrhea is persistent; 8 bowel movements today. Denies any fever or chills. Objective: Physical exam: General: Alert, Oriented x3, Cooperative, No apparent distress HEENT: Atraumatic, PERRLA, EOMI, Normocephalic Oral: Moist Mucosa Neck: Supple Lungs: Diminished - especially at lung bases Cardiovascular: Regular rate, Regular Rhythm, Normal S1, Normal S2, No murmurs Abdomen: Bowel Sounds Present, Soft, Non Tender, Non-Distended, No Hepato-splenomegaly Extremities: Edema - bilateral pedal edema +2, left lower leg is HOLLIE-wrapped. Skin: - - see under extremities Musculoskeletal: No Tenderness to Palpation of Joints or Extremities Lymphatic: No Cervical, Supraclavicular, or Inguinal Adenopathy Neurological: Cranial nerves II-XII grossly intact, Neuro grossly intact Psych/Mental Status: Normal Affect, Appropriate Vitals/I&O's: Vital Signs Temp Pulse Resp BP Pulse Ox 98.6 F 98 16 146/72 H 98 05/29/20 04:56 05/29/20 04:56 05/29/20 04:56 05/29/20 04:56 05/29/20 04:56 Oxygen Flow Rate (L/min) 2 Oxygen Delivery Method Room Air Weight: 60.2 kg Body Mass Index (BMI) 26.8 Intake and Output for Last 24 Hours 05/27/20 05/28/20 05/29/20 23:59 23:59 23:59 Intake Total 3334 / 3334 2925 / 3225 550 / 550 Balance 3334 / 3334 2925 / 3225 550 / 550 Microbiology Past 72 Hours 05/27/20 01:50 Wound - Leg, Left Gram Stain - Final 05/27/20 01:50 Wound - Leg, Left Wound Culture - Preliminary Beta hemolytic organism Gram positive organism 05/27/20 01:15 Stool Enteric Bacteriology - Final 05/27/20 01:15 Stool C. difficile GDH Antigen & Toxins - Final Toxigenic C. difficile 05/27/20 01:15 Stool C. difficile DNA Amplification - Final Laboratory Results 05/28/20 11:32: Vancomycin Trough 15.4 H 05/28/20 11:32: Magnesium 2.1 05/28/20 13:20: COVID-19 ([facility]) Negative 05/29/20 04:44: WBC 7.6, RBC 4.04 L, Hgb 11.5 L, Hct 36.4 L, MCV 90.1, MCH 28.5, MCHC 31.6 L, RDW Std Deviation 48.8 H, RDW Coeff of Naseem 14.8 H, Plt Count 252, MPV 8.6, Immature Gran % (Auto) 0.400, Neut % (Auto) 50.7, Lymph % (Auto) 28.1, [place] % (Auto) 7.3, Eos % (Auto) 12.8 H, Baso % (Auto) 0.7, Absolute Neuts (auto) 3.8, Absolute Lymphs (auto) 2.12, Nucleated RBC % 0 05/29/20 04:44: Sodium 139, Potassium 3.7, Chloride 110 H, Carbon Dioxide 26.0, Anion Gap 3 L, BUN 2 L, Creatinine 0.42 L, Estim Creat Clear Calc 49.04, Est GFR (MDRD) Af Amer 194, Est GFR (MDRD) Non-Af 160, BUN/Creatinine Ratio 4.8 L, Glucose 88, Calcium 8.0 L, TSH 2.42 Current Medications Acetaminophen (Tylenol) 650 mg PO Q6H PRN PRN PRN Reason: Pain Score 1-10/Temp > 100.7 F Al Hydroxide/Mg Hydroxide (Mylanta Ii) 30 ml PO Q6H PRN PRN PRN Reason: Gastric Burning Albuterol Sulfate (Ventolin Aerosols) 2.5 mg INHALATION Q2H PRN PRN PRN Reason: Dyspnea, wheezing Aspirin (Ecotrin) 81 mg PO QHS [facility] Last Admin: 05/28/20 22:28 Dose: 81 mg Documented by: Atorvastatin Calcium (Lipitor) 20 mg PO QHS [facility] Last Admin: 05/28/20 22:28 Dose: 20 mg Documented by: Calamine/Phenol (Calmoseptine Ointment) 1 applic TOPICAL TID [facility]; Protocol Last Admin: 05/29/20 04:53 Dose: 1 applicatio Documented by: Collagenase (Santyl) 1 applic TOPICAL DAILY [facility]; Protocol Last Admin: 05/28/20 10:42 Dose: 1 applicatio Documented by: Dextrose (D50w Syringe) 0 gm IV X1 PRN; Protocol PRN Reason: Hypoglycemia Doxepin HCl (Sinequan) 10 mg PO QHS [facility] Last Admin: 05/28/20 22:28 Dose: 10 mg Documented by: Enoxaparin Sodium (Lovenox) 40 mg SC DAILY [facility] Last Admin: 05/28/20 10:41 Dose: 40 mg Documented by: Glucagon () 1 mg IM .X1 PRN PRN Reason: Hypoglycemia Guaifenesin (Robitussin) 20 ml PO Q4H PRN PRN PRN Reason: COUGH Hydralazine HCl (Apresoline Iv) 10 mg IV Q4H PRN PRN PRN Reason: SBP > 160 Sodium Chloride () 1,000 mls @ 50 mls/hr IV .Q20H [facility] Last Admin: 05/28/20 22:28 Dose: 50 mls/hr Documented by: Vancomycin IV Pharmacy to Dose (1 ea/ Sodium Chloride) 500 mls @ 250 mls/hr IV X1 PRN; Protocol PRN Reason: Rx to Dose Vancomycin HCl (Vancomycin) 1,000 mg in 200 mls @ 200 mls/hr IV Q12H [facility] Last Infusion: 05/29/20 00:17 Dose: Infused Documented by: Sodium Chloride () 250 mls @ 15 mls/hr IV .[id number] PRN PRN Reason: Saline Flush Sodium Chloride () 250 mls @ 15 mls/hr IV .[id number] PRN PRN Reason: Additional IVPB Infusion Cefepime HCl 1 gm/ Sodium (Chloride) 50 mls @ 100 mls/hr IV Q12 [facility] Last Infusion: 05/29/20 00:01 Dose: Infused Documented by: Lactobacillus Acidophilus (Acidophilus) 1 tablet PO BID [facility] Last Admin: 05/28/20 22:28 Dose: 1 tablet Documented by: Levothyroxine Sodium (Synthroid) 137 mcg PO QHS [facility] Last Admin: 05/28/20 22:28 Dose: 137 mcg Documented by: Melatonin (Melatonin) 3 mg PO QHS PRN PRN PRN Reason: INSOMNIA Metoprolol Tartrate (Lopressor (Beta Mehran)) 5 mg IV Q6H PRN PRN PRN Reason: sustained tachycardia > 130 Metoprolol Tartrate (Lopressor (Beta Mehran)) 50 mg PO DAILY [facility] Last Admin: 05/28/20 10:41 Dose: 50 mg Documented by: Metoprolol Tartrate (Lopressor (Beta Mehran)) 100 mg PO QHS [facility] Last Admin: 05/28/20 22:31 Dose: 100 mg Documented by: Morphine Sulfate () 2 mg IV Q3H PRN PRN PRN Reason: Pain Score 6-10/10 Nutritional Formula (Lactose Free) (Ensure Clear) 120 ml PO 4X/DAY [facility] Last Admin: 05/28/20 22:29 Dose: Not Given Documented by: Ondansetron HCl (Zofran) 4 mg IV Q8H PRN PRN PRN Reason: NAUSEA/VOMITING Oxycodone HCl (Oxyir) 5 mg PO Q4H PRN PRN PRN Reason: Pain Score 4-5/10 Pentoxifylline (Trental) 400 mg PO DAILY [facility] Last Admin: 05/28/20 10:41 Dose: 400 mg Documented by: Potassium Chloride (K-Dur) 20 meq PO BIDCM [facility] Sodium Chloride () 10 - 40 ml IV UD PRN PRN Reason: SALINE FLUSH Last Admin: 05/28/20 16:03 Dose: 10 ml Documented by: Throat Lozenges (Cepacol Sore Throat Lozenge) 1 lozenge MUCOUS MEM Q2H PRN PRN PRN Reason: SORE THROAT Vancomycin HCl () 125 mg PO Q6 [facility] Last Admin: 05/29/20 04:44 Dose: 125 mg Documented by: STROKE Vital Signs/Narrative: Vital Signs Temp Pulse Resp BP Pulse Ox 05/29/20 04:56 98.6 F 98 16 146/72 H 98 Medical Necessity - Tobacco Use Smoking Status: Former smoker Tobacco Use: Non-smoker Assessment/Plan All Active Problems (Last Reviewed 04/11/20 @ 14:[address] Yefri Rubio MD) Acute diarrhea (Acute) Hypokalemia (Acute) Cellulitis (Acute) Hx of knee surgery (Acute) History of hip surgery (Acute) Hx of tubal ligation (Acute) Pseudomonas aeruginosa colonization (Acute) Cellulitis of left leg (Acute) Colonization status (Acute) Diarrhea (Acute) Tachycardia (Acute) C. difficile colitis (Resolved) Ulcer of left lower extremity, limited to breakdown of skin (Acute) Colitis (Acute) 1. Acute left lower extremity cellulitis/acute on chronic osteomyelitis of left fibula In the setting of chronic left lower extremity wound. Recent cultures grew Pseudomonas/strep Status post wound debridement. Stable vitals, blood cultures are negative Podiatry and ID consulted; on IV cefepime; IV vancomycin discontinued 2. Recurrent C. difficile, still with significant amounts of diarrhea, on oral vancomycin and lactobacillus, Long taper vancomycin as planned. 3. Electrolyte imbalances -hypokalemia, hypomagnesemia, resolved, recheck in a.m. 4. Hypothyroidism, continue on Synthroid 5. Hypertension, controlled, continue metoprolol and PRN hydralazine 6. Hyperlipidemia, continue on statins 7. DVT prophylaxis with Lovenox subcu Inpatient E&M: 12228 [facility] Hosp L2
--- NOTE | 2020-05-29 08:19 | OP.PCM_ITS ---
Problem List (1) Ulcer of left lower extremity with fat layer exposed Status: Chronic (2) Delayed wound healing Status: Chronic (3) Venous insufficiency Status: Chronic Comment: left Greater saphenous vein (4) Other specified peripheral vascular diseases Status: Chronic Comment: bilateral lower extremity (5) Left leg pain Status: Chronic (6) Leg edema, left Status: Chronic (7) Colonization status Status: Acute (8) Osteomyelitis of left fibula Status: Suspected Qualifiers: Osteomyelitis type: subacute Qualified Code(s): M86.262 - Subacute osteomyelitis, left tibia and fibula Report of Operation Date of Procedure: 05/29/20 Pre-Operative Diagnosis: Left leg chronic ulcer with delayed healing. Suspected osteomyelitis of left fibula Post-Operative Diagnosis: Left leg chronic ulcer with delayed healing. Suspected osteomyelitis of left fibula Surgery/Procedure Performed:: Versajet subcutaneous excisional debridement of left leg ulcer. Application of advanced wound healing product, amnio fill left leg. Bone biopsy left fibula Description of Surgical Findings:: Hemostasis: Well controlled with anatomic dissection and direct pressure, no tourniquet utilized Materials: 250 mg of amnio fill (advance wound healing product drive from placental and umbilical cord tissue), 4-0 nylon Complications: None Specimens were sent The patient tolerated the procedure and anesthesia well. She was transported to the PACU with vital signs stable and vascular status intact to the left lower extremity as compared to her preoperative status. She will be transferred back to the progressive care unit upon continued stability. She is permitted to weight-bear as tolerated. Intraoperative x-rays were used to confirm desired bone debridement and biopsy placements. No acute injuries were noted. Postoperative orders were entered electronically. personal development coach: none - surgeon: Abby Cooper DPM Type of Anesthesia:: General, Local - Preoperative: One-to-one mixture of 1% lidocaine plain and 0.5% Marcaine plain administered in local infiltrative manner to ulcer sites and also bone biopsy site, 20 cc Postoperative: Additional local infiltration, 7 cc Specimen's removed: 1. Fibula bone sent to pathology. 2. Fibula bone sent to microbiology for aerobic, anaerobic, acid-fast, fungal, and MRSA PCR Estimated Blood Loss (mL): < 75 mL Description of Procedure: Indications: This 69-year-old female with significant past medical history of hypothyroidism, hypertension, hyperlipidemia, electrolyte imbalance history, recurrent C. 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 She was recently admitted to the hospital for recurrent episode of C. difficile and was also worked up for left leg cellulitis. She was started on IV antibiotics and has demonstrated some left leg cellulitis resolution. Upon serial x-ray evaluation and there is some new cortical thickening in the distal one third of the fibula which is almost adjacent to the ulcer location. An MRI was ordered and there is evidence suggesting acute and chronic osteomyelitis. She has been managed with a comprehensive wound healing plan in the wound healing center including serial debridements, edema management which is difficult for her to comply, advanced wound healing product application, offloading, nutritional recommendations, and vascular specialist referral. She also is following with Dr. Morel, vascular specialist. She is also previously known to infectious disease specialist who is seen her for recurrent Pseudomonas contaminations of her leg, and infection of the left lower extremity as well as her C. difficile. Her pulses are difficult to palpate. The preoperative indications, planned procedure, possible benefits, risk, complications, and anticipated healing time management were discussed in detail with patient. She understands and elects to proceed with surgery this time. No guarantees were made. She understands risk and complications may include but are not limited to following: Pain, swelling, scarring, need for further surgery, loss of limb, function, life, blood clot, allergic reaction, infection, continued delays or nonhealing. I answered all of her questions. The surgical limb and consent were signed. She also understands that there is an inherent r isk to be in the hospital and to go through any surgical procedures during this COVID-19 pandemic timeframe. I recommend proceeding with the surgery because there are significant risks that can occur if we do not proceed forward with her infection management and wound healing plan. She also understands that we have a very low community COVID-19 involvement presently however there is still this inherent risk being in any healthcare facility. She demonstrates understanding. Procedure in detail: The patient was transported to the operating room via cart and placed on the operating room table in the supine position. Final verification of the patient, surgery, limb designation were performed via the timeout procedure. General anesthesia was initiated by the anesthesia team. I administered the local anesthetic as noted in a local infiltrative manner. Contact precautions were maintained with her current C. difficile treatment noted. A tourniquet was placed to her thigh however this was not deemed necessary or use was utilized once the procedure started. Her left hip was bumped to allow good exposure. The left lower extremity was prepped and draped in usual aseptic manner. Celestine parsons began the following manner: Attention was first directed to the lateral lower one third of the fibula and the ankle region in which a 1 cm incision was made through the skin. Blunt dissection was performed down to the fibula where a bone biopsy was obtained with instrumentation. This adjacent site correlated adjacent to the ulcer site and was also part of the wound bed. A fragment of the bone was debrided with a ronguer. This was sent to pathology and microbiology. Intraoperative fluoroscopy was used to confirm the location of the biopsy site. Pressure was applied to maintain hemostasis. A nylon suture applied horizontal mattress technique was used to close this incision site. Next, a versa jet on setting 8 was used to debride the chronic ulcer sites in a subcutaneous excisional manner. The pre-debridement anterior left leg ulcer was 7 x 5 x 0.2 cm and the post debridement with 7.5 x 5.5 with a depth of 0.3 cm. There was some fascial tissue noted. The medial leg satellite ulcer pre- debridement was 1.4 x 1.1 x 0.1 cm and post debridement was 1.5 x 1.2 x 0.1 cm. The lateral leg satellite ulcer pre-debridement measurement was 1.1 x 0.8 x 0.1 cm and post debridement 1.2 x 0.9 x 0.1 cm. Excisional subcutaneous debridement was used to remove devitalized subcutaneous tissue, fibrous tissue, biofilm, and slough. Pressure was applied to maintain hemostasis. There is no pulsatile bleeding noted. Additional local anesthetic was applied in a postoperative manner as noted. 250 mg of amnio fill advanced wound healing product were next applied to the aforementioned ulcer sites. Overlying Adaptic was applied and secured in place with nylon suture. Additional secondary dressing consisting of 4 x 4 gauze, Kerlix, abdominal pad, and Candelario wrap were applied. After procedure: The patient tolerated the procedure and anesthesia well. She will proceed with medical management in the progressive care unit. She will continue on IV antibiotics for treatment of her C. difficile and also resolving left leg cellulitis. Her work-up for osteomyelitis is in process. The x-ray and MRI supports this diagnosis and the debrided bone that was sent for biopsy is pending. She is on vancomycin and cefepime. Her initial wound culture at the onset of her admission is growing strep group B and gram-positive rods so far. Additional bone microbiology results are also pending. Infectious diseases on the case and management is greatly appreciated. To ambulate as tolerated. I also recommended continuation of edema management with Candelario wrap and elevation. It is noted that she also has peripheral vascular disease and has been followed with vascular surgeon, Dr. Morel. He will consider arterial intervention after her infection status is stabilized. Postoperative orders were entered electronically. The podiatry team will continue to follow her closely while in house. Abby Cooper DPM, [facility] Grafts/Implants Used: Amniofill - Complications None - Admit VTE Documentation VTE Present on Admission: No VTE Mechan Device Prophylaxis: SCD's VTE Pharm Prophylaxis ordered?: Yes
[2020-05-29] MEDS: Pentoxifylline 400 MG Tablet PO (10:09)
[2020-05-29] MEDS: Metoprolol Tartrate 50 MG Tablet PO (10:09)
[2020-05-29] MEDS: Enoxaparin 40 MG/0.4 ML Syringe SC (10:10)
[2020-05-29] MEDS: Collagenase 30gm Tube 1 APPLIC TOPICAL (10:12)
[2020-05-29] MEDS: Vancomycin IV 1,000 MG/200 ML BAG 200 MG IV (11:50)
--- NOTE | 2020-05-29 15:56 | PCM.PN.ID ---
Patient Problems: Active and Suspected Problems (Last Reviewed 04/11/20 @ 14:[address] Yefri Rubio MD) Acute diarrhea (Acute) Hypokalemia (Acute) Cellulitis (Acute) Subjective: Feeling ok, leg sore s/p OR, no fever, diarrhea improved. - Physical Exam Vitals/I&O's: Vital Signs Temp Pulse Resp BP Pulse Ox 98.4 F 84 18 143/78 H 100 05/29/20 09:30 05/29/20 15:00 05/29/20 09:30 05/29/20 10:09 05/29/20 09:30 Oxygen Flow Rate (L/min) 1 Oxygen Delivery Method Nasal Cannula Weight: 60.2 kg Body Mass Index (BMI) 26.8 Intake and Output for Last 24 Hours 05/27/20 05/28/20 05/29/20 23:59 23:59 23:59 Intake Total 3334 / 3334 2925 / 3225 1040 / 1040 Balance 3334 / 3334 2925 / 3225 1040 / 1040 General: Alert, Cooperative, No apparent distress Lungs: Clear to auscultation, Normal air movement Cardiovascular: Regular rate, Regular Rhythm Abdomen: Soft, Non Tender, Non-Distended Skin: Ulcer/ Wound - LLE wrapped Microbiology Past 72 Hours 05/29/20 Unknown Bone - Leg, Left Gram Stain - Final 05/27/20 01:50 Wound - Leg, Left Gram Stain - Final 05/27/20 01:50 Wound - Leg, Left Wound Culture - Preliminary Streptococcus group B Gram positive anna 05/27/20 00:00 Blood Culture (Wb) - Right Hand Blood Culture - Preliminary No growth in 48 hours. 05/26/20 23:14 Blood Culture (Wb) - Anticubital Left Blood Culture - Preliminary No growth in 48 hours. 05/27/20 01:15 Stool Enteric Bacteriology - Final 05/27/20 01:15 Stool C. difficile GDH Antigen & Toxins - Final Toxigenic C. difficile 05/27/20 01:15 Stool C. difficile DNA Amplification - Final Laboratory Results 05/28/20 13:20: COVID-19 ([facility]) Negative 05/29/20 04:44: WBC 7.6, RBC 4.04 L, Hgb 11.5 L, Hct 36.4 L, MCV 90.1, MCH 28.5, MCHC 31.6 L, RDW Std Deviation 48.8 H, RDW Coeff of Naseem 14.8 H, Plt Count 252, MPV 8.6, Immature Gran % (Auto) 0.400, Neut % (Auto) 50.7, Lymph % (Auto) 28.1, [place] % (Auto) 7.3, Eos % (Auto) 12.8 H, Baso % (Auto) 0.7, Absolute Neuts (auto) 3.8, Absolute Lymphs (auto) 2.12, Nucleated RBC % 0 05/29/20 04:44: Sodium 139, Potassium 3.7, Chloride 110 H, Carbon Dioxide 26.0, Anion Gap 3 L, BUN 2 L, Creatinine 0.42 L, Estim Creat Clear Calc 49.04, Est GFR (MDRD) Af Amer 194, Est GFR (MDRD) Non-Af 160, BUN/Creatinine Ratio 4.8 L, Glucose 88, Calcium 8.0 L, TSH 2.42 Current Medications Acetaminophen (Tylenol) 650 mg PO Q6H PRN PRN PRN Reason: Pain Score 1-10/Temp > 100.7 F Al Hydroxide/Mg Hydroxide (Mylanta Ii) 30 ml PO Q6H PRN PRN PRN Reason: Gastric Burning Albuterol Sulfate (Ventolin Aerosols) 2.5 mg INHALATION Q2H PRN PRN PRN Reason: Dyspnea, wheezing Aspirin (Ecotrin) 81 mg PO QHS [facility] Last Admin: 05/28/20 22:28 Dose: 81 mg Documented by: Atorvastatin Calcium (Lipitor) 20 mg PO QHS [facility] Last Admin: 05/28/20 22:28 Dose: 20 mg Documented by: Calamine/Phenol (Calmoseptine Ointment) 1 applic TOPICAL TID [facility]; Protocol Last Admin: 05/29/20 04:53 Dose: 1 applicatio Documented by: Collagenase (Santyl) 1 applic TOPICAL DAILY [facility]; Protocol Last Admin: 05/29/20 10:12 Dose: 1 applicatio Documented by: Dextrose (D50w Syringe) 0 gm IV X1 PRN; Protocol PRN Reason: Hypoglycemia Doxepin HCl (Sinequan) 10 mg PO QHS [facility] Last Admin: 05/28/20 22:28 Dose: 10 mg Documented by: Enoxaparin Sodium (Lovenox) 40 mg SC DAILY [facility] Last Admin: 05/29/20 10:10 Dose: 40 mg Documented by: Glucagon () 1 mg IM .X1 PRN PRN Reason: Hypoglycemia Guaifenesin (Robitussin) 20 ml PO Q4H PRN PRN PRN Reason: COUGH Hydralazine HCl (Apresoline Iv) 10 mg IV Q4H PRN PRN PRN Reason: SBP > 160 Sodium Chloride () 1,000 mls @ 50 mls/hr IV .Q20H [facility] Last Admin: 05/28/20 22:28 Dose: 50 mls/hr Documented by: Sodium Chloride () 250 mls @ 15 mls/hr IV .[id number] PRN PRN Reason: Saline Flush Sodium Chloride () 250 mls @ 15 mls/hr IV .[id number] PRN PRN Reason: Additional IVPB Infusion Cefepime HCl 1 gm/ Sodium (Chloride) 50 mls @ 100 mls/hr IV Q12 [facility] Last Infusion: 05/29/20 11:35 Dose: Infused Documented by: Lactobacillus Acidophilus (Acidophilus) 1 tablet PO BID [facility] Last Admin: 05/29/20 10:09 Dose: 1 tablet Documented by: Levothyroxine Sodium (Synthroid) 137 mcg PO QHS [facility] Last Admin: 05/28/20 22:28 Dose: 137 mcg Documented by: Melatonin (Melatonin) 3 mg PO QHS PRN PRN PRN Reason: INSOMNIA Metoprolol Tartrate (Lopressor (Beta Mehran)) 5 mg IV Q6H PRN PRN PRN Reason: sustained tachycardia > 130 Metoprolol Tartrate (Lopressor (Beta Mehran)) 50 mg PO DAILY [facility] Last Admin: 05/29/20 10:09 Dose: 50 mg Documented by: Metoprolol Tartrate (Lopressor (Beta Mehran)) 100 mg PO QHS [facility] Last Admin: 05/28/20 22:31 Dose: 100 mg Documented by: Morphine Sulfate () 2 mg IV Q3H PRN PRN PRN Reason: Pain Score 6-10/10 Nutritional Formula (Lactose Free) (Ensure Clear) 120 ml PO 4X/DAY [facility] Last Admin: 05/29/20 15:27 Dose: Not Given Documented by: Ondansetron HCl (Zofran) 4 mg IV Q8H PRN PRN PRN Reason: NAUSEA/VOMITING Oxycodone HCl (Oxyir) 5 mg PO Q4H PRN PRN PRN Reason: Pain Score 4-5/10 Pentoxifylline (Trental) 400 mg PO DAILY [facility] Last Admin: 05/29/20 10:09 Dose: 400 mg Documented by: Potassium Chloride (K-Dur) 20 meq PO BIDCM [facility] Last Admin: 05/29/20 10:08 Dose: 20 meq Documented by: Sodium Chloride () 10 - 40 ml IV UD PRN PRN Reason: SALINE FLUSH Last Admin: 05/28/20 16:03 Dose: 10 ml Documented by: Throat Lozenges (Cepacol Sore Throat Lozenge) 1 lozenge MUCOUS MEM Q2H PRN PRN PRN Reason: SORE THROAT Vancomycin HCl () 125 mg PO Q6 [facility] Last Admin: 05/29/20 11:50 Dose: 125 mg Documented by: Medical Necessity - Tobacco Use Smoking Status: Former smoker Tobacco Use: Non-smoker Route of nutrition/ use of supplements: [] Nutritional Intake: [] IV Site: [] [place] Catheter: [] - Assessment/Plan Antibiotics: [] Assessment/Plan: [] Active and Suspected Problems (Last Reviewed 04/11/20 @ 14:[address] Yefri Rubio MD) Acute diarrhea (Acute) Hypokalemia (Acute) Cellulitis (Acute) L [place] infected ulcer - most recent cxs with pseudomonas. Cx here with GPR, GBS. Cont cefepime for empiric PsA coverage. Now s/p OR. Will stop vanc. 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 Plan on long taper. Will follow
[2020-05-29] MEDS: 0.9% Normal Saline 1,000 ML 50 ML IV (16:27)
[2020-05-29] MEDS: Ensure Clear 120 ML Liquid PO ×2 (17:45→21:24)
[2020-05-29] MEDS: Atorvastatin Calcium 20 MG Tablet PO (21:23)
[2020-05-29] MEDS: Aspirin E.C. 81 MG Tablet PO (21:24)
[2020-05-29] MEDS: Metoprolol Tartrate 100 MG Tablet PO (21:24)
[2020-05-29] MEDS: Levothyroxine 137 MCG Tablet PO (21:25)
[2020-05-29] MEDS: Doxepin Hydrochloride 10 MG Capsule PO (21:25)
[2020-05-29] MEDS: MELATONIN 3 MG TABLET PO (21:25)
[2020-05-29] MEDS: oxyCODONE 5 MG Tablet PO (21:26)
[2020-05-30] VITALS (12 sets, daily range): BP systolic 111–138; BP diastolic 63–74; PULSE 75–115; RESP 16–20; TEMP 36.2–37.1; O2SAT 92–100
[2020-05-30] MEDS: Menthol/Lanolin/Calamine/Znox 113 GM Tube 1 APPLIC TOPICAL ×3 (06:31→21:16)
--- NOTE | 2020-05-30 08:39 | NURSING ---
per Nieves Lara in lab. unable to obtain mrsa dna pcr lab off fibula bone biopsy and therefore is canceling test in computer. dr. ross paged to notify.
--- NOTE | 2020-05-30 09:41 | CASEMGMT ---
Infectious Disease Physician said patient will be on 2 IV Antibiotics twice a day. CAPRICE spoke with patient. Introduced self and role at [facility]. SW explained to patient that she will be discharged on 2 IV antibiotics that are both twice a day. SW asked patient if she felt this would be manageable. She said she thinks between her daughter and her brother they could manage. SW mentioned SNF including [facility] TCU. Patient did not feel this would be necessary. She gave SW permission to call her daughter. CAPRICE called patient's daughter and told her that patient is going to be on 2 different IV antibiotics twice a day. SW told her that someone would likely have to give her the antibiotic up to 4 times a day. She said that is fine and they will manage. SW mentioned SNF including [facility] to her and she again did not feel this was necessary. CAPRICE told her patient could possibly be discharged today if everything could be arranged. She thanked CAPRICE for the phone call. CAPRICE notified ELEUTERIO BUSTILLOS. Lidia REID MSW
[2020-05-30] MEDS: Enoxaparin 40 MG/0.4 ML Syringe SC (10:04)
[2020-05-30] MEDS: Pentoxifylline 400 MG Tablet PO (10:04)
[2020-05-30] MEDS: Metoprolol Tartrate 50 MG Tablet PO (10:05)
--- NOTE | 2020-05-30 10:33 | PCM.PN.ID ---
Patient Problems: Active and Suspected Problems (Last Reviewed 04/11/20 @ 14:[address] Yefri Rubio MD) Acute diarrhea (Acute) Hypokalemia (Acute) Cellulitis (Acute) Osteomyelitis of left fibula (Suspected) Subjective: Feeling better, diarrhea resolved, no fever - Physical Exam Vitals/I&O's: Vital Signs Temp Pulse Resp BP Pulse Ox 98.4 F 75 16 111/64 100 05/30/20 09:21 05/30/20 10:05 05/30/20 09:21 05/30/20 09:21 05/30/20 09:21 Oxygen Flow Rate (L/min) 1 Oxygen Delivery Method Room Air Weight: 60.2 kg Body Mass Index (BMI) 26.8 Intake and Output for Last 24 Hours 05/28/20 05/29/20 05/30/20 23:59 23:59 23:59 Intake Total 2925 / 3225 2591.67 / 2591.67 240 / 240 Balance 2925 / 3225 2591.67 / 2591.67 240 / 240 General: Alert, Cooperative, No apparent distress Lungs: Clear to auscultation, Normal air movement Cardiovascular: Regular rate, Regular Rhythm Abdomen: Soft, Non Tender, Non-Distended Skin: Ulcer/ Wound - Leg wrapped Microbiology Past 72 Hours 05/27/20 01:50 Wound - Leg, Left Gram Stain - Final 05/27/20 01:50 Wound - Leg, Left Wound Culture - Preliminary Streptococcus group B Corynebacterium striatum 05/29/20 Unknown Bone - Leg, Left Gram Stain - Final 05/27/20 00:00 Blood Culture (Wb) - Right Hand Blood Culture - Preliminary No growth in 48 hours. 05/26/20 23:14 Blood Culture (Wb) - Anticubital Left Blood Culture - Preliminary No growth in 48 hours. 05/27/20 01:15 Stool Enteric Bacteriology - Final Current Medications Acetaminophen (Tylenol) 650 mg PO Q6H PRN PRN PRN Reason: Pain Score 1-10/Temp > 100.7 F Al Hydroxide/Mg Hydroxide (Mylanta Ii) 30 ml PO Q6H PRN PRN PRN Reason: Gastric Burning Albuterol Sulfate (Ventolin Aerosols) 2.5 mg INHALATION Q2H PRN PRN PRN Reason: Dyspnea, wheezing Aspirin (Ecotrin) 81 mg PO QHS [facility] Last Admin: 05/29/20 21:24 Dose: 81 mg Documented by: Atorvastatin Calcium (Lipitor) 20 mg PO QHS [facility] Last Admin: 05/29/20 21:23 Dose: 20 mg Documented by: Calamine/Phenol (Calmoseptine Ointment) 1 applic TOPICAL TID [facility]; Protocol Last Admin: 05/30/20 06:31 Dose: 1 applicatio Documented by: Collagenase (Santyl) 1 applic TOPICAL DAILY [facility]; Protocol Last Admin: 05/29/20 10:12 Dose: 1 applicatio Documented by: Dextrose (D50w Syringe) 0 gm IV X1 PRN; Protocol PRN Reason: Hypoglycemia Doxepin HCl (Sinequan) 10 mg PO QHS [facility] Last Admin: 05/29/20 21:25 Dose: 10 mg Documented by: Enoxaparin Sodium (Lovenox) 40 mg SC DAILY [facility] Last Admin: 05/30/20 10:04 Dose: 40 mg Documented by: Glucagon () 1 mg IM .X1 PRN PRN Reason: Hypoglycemia Guaifenesin (Robitussin) 20 ml PO Q4H PRN PRN PRN Reason: COUGH Hydralazine HCl (Apresoline Iv) 10 mg IV Q4H PRN PRN PRN Reason: SBP > 160 Sodium Chloride () 1,000 mls @ 50 mls/hr IV .Q20H [facility] Last Infusion: 05/29/20 21:48 Dose: 50 mls/hr Documented by: Sodium Chloride () 250 mls @ 15 mls/hr IV .[id number] PRN PRN Reason: Saline Flush Sodium Chloride () 250 mls @ 15 mls/hr IV .[id number] PRN PRN Reason: Additional IVPB Infusion Vancomycin IV Pharmacy to Dose (1 ea/ Sodium Chloride) 500 mls @ 250 mls/hr IV X1 PRN; Protocol PRN Reason: Rx to Dose Cefepime HCl 2 gm/ Sodium (Chloride) 100 mls @ 200 mls/hr IV Q12 [facility] Vancomycin HCl (Vancomycin) 1,000 mg in 200 mls @ 200 mls/hr IV Q12H [facility] Lactobacillus Acidophilus (Acidophilus) 1 tablet PO BID [facility] Last Admin: 05/30/20 10:03 Dose: 1 tablet Documented by: Levothyroxine Sodium (Synthroid) 137 mcg PO QHS [facility] Last Admin: 05/29/20 21:25 Dose: 137 mcg Documented by: Melatonin (Melatonin) 3 mg PO QHS PRN PRN PRN Reason: INSOMNIA Last Admin: 05/29/20 21:25 Dose: 3 mg Documented by: Metoprolol Tartrate (Lopressor (Beta Mehran)) 5 mg IV Q6H PRN PRN PRN Reason: sustained tachycardia > 130 Metoprolol Tartrate (Lopressor (Beta Mehran)) 50 mg PO DAILY [facility] [place] Last Admin: 05/30/20 10:05 Dose: 50 mg Documented by: Metoprolol Tartrate (Lopressor (Beta Mehran)) 100 mg PO QHS [facility] Last Admin: 05/29/20 21:24 Dose: 100 mg Documented by: Morphine Sulfate () 2 mg IV Q3H PRN PRN PRN Reason: Pain Score 6-10/10 Nutritional Formula (Lactose Free) (Ensure Clear) 120 ml PO 4X/DAY [facility] [place] Last Admin: 05/30/20 10:04 Dose: Not Given Documented by: Ondansetron HCl (Zofran) 4 mg IV Q8H PRN PRN PRN Reason: NAUSEA/VOMITING Oxycodone HCl (Oxyir) 5 mg PO Q4H PRN PRN PRN Reason: Pain Score 4-5/10 Last Admin: 05/29/20 21:26 Dose: 5 mg Documented by: Pentoxifylline (Trental) 400 mg PO DAILY [facility] [place] Last Admin: 05/30/20 10:04 Dose: 400 mg Documented by: Potassium Chloride (K-Dur) 20 meq PO BIDCM [facility] Last Admin: 05/30/20 10:04 Dose: 20 meq Documented by: Sodium Chloride () 10 - 40 ml IV UD PRN PRN Reason: SALINE FLUSH Last Admin: 05/28/20 16:03 Dose: 10 ml Documented by: Throat Lozenges (Cepacol Sore Throat Lozenge) 1 lozenge MUCOUS MEM Q2H PRN PRN PRN Reason: SORE THROAT Vancomycin HCl () 125 mg PO Q6 [facility] [place] Last Admin: 05/30/20 06:30 Dose: 125 mg Documented by: Medical Necessity - Tobacco Use Smoking Status: Former smoker Tobacco Use: Non-smoker Route of nutrition/ use of supplements: [] Nutritional Intake: [] IV Site: [] [place] Catheter: [] - Assessment/Plan Antibiotics: [] Assessment/Plan: [] Active and Suspected Problems (Last Reviewed 04/11/20 @ 14:[address] Yefri Rubio MD) Acute diarrhea (Acute) Hypokalemia (Acute) Cellulitis (Acute) L [place] infected ulcer - most recent cxs with pseudomonas. Cx here with corynebacteria, GBS. Cont cefepime for empiric PsA coverage. Now s/p OR. Surg cx pending. Plan on 6 week iv vanc/cefepime, stop date 07/08, weekly labs. ID followup in 2 weeks. 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 Plan on long taper. Will follow
--- NOTE | 2020-05-30 10:58 | CASEMGMT ---
Addendum entered by Adolfo Shafer 05/31/20 10:19: Corrrection: cost of $96.37/days that was documented below is for the Vancomycin. Addendum entered by Adolfo Shafer 05/30/20 16:49: Call received back from Aileen @ [employer]. 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 Aileen states these are estimates and cost could be lower or higher. Pt/dtr made aware. Pt/dtr inquiring about [facility] doing Out-patient infusions. Call placed to [facility] at this time and they state they do not do OP infusions there. Pt/dtr made aware of this as well. Discussed w/pt/dtr again the option of TCU or another SNF and pt states does not want to go to a SNF. Pt/dtr state they will think things over and make a decision and let RN CM know tomorrow what they decide. Addendum entered by Adolfo Shafer 05/30/20 16:23: [facility] states unable to accept pt at this time d/t they are not currently doing IV Atb's Addendum entered by Adolfo Shafer 05/30/20 15:39: Call placed to [facility] @ [phone] and they are not able to accept pt at this time. Call received from Wendy @ [facility]. She states pt has MCR Part D w/[employer] and they are not contracted with them. She states [facility] are and referred this RN CM to them. Call placed to [facility] [employer] @ [phone] and spoke with Vickie. She states they are in network w/some [employer] Part D plans but will need to review pt's information and will return call to this RN CM. She states pt will have cost for the brushing operator. She states she will review info and calculate pt financials and return call to this RN CM. Cinical information faxed to her at this time @ . Pt/daughter made aware RN APOLLO continuing to work on HHC/infusion co referrals and discharge will not be today. Addendum entered by Adolfo Shafer 05/30/20 15:38: Call placed to [facility]. They are not able to accept pt, as they are not currently doing IV atb's Addendum entered by Adolfo Shafer 05/30/20 15:18: Call received from Hazel @ [facility] and they are not able to accept pt d/t staffing. Addendum entered by Adolfo Shafer 05/30/20 14:22: Referral packet has also been faxed to [facility]. Awaiting for financials to be determined. Addendum entered by Adolfo Shafer 05/30/20 13:53: Call received back from Ellen @ [facility]. She states they are not able to accept pt d/t pt has wounds and they do not have a wound nurse. She is aware wound care will not be needed, as pt/family can do wound care, but she states they are still not able to accept pt per [facility] guidelines. RN CM to room and pt and daughter, who is at bedside, made aware. They states no other preference of [facility]. Daughter/pt confirm they will be able to do wound care/dressing change for patient. They also state they do not feel pt needs any PT/OT. Call placed to [facility] at this time. They are not able to do accept pt d/t, as they are not able to open any new cases until Wednesday. Call placed to [facility] and spoke to Marita. She was made aware SN [facility] is needed for IV atb's and if HH able to be set up and medication delivered today, pt could d/c home today w/next dose atb due at 2200 today. She states they may be able to accept pt and asked for referral packet to be faxed. This was done at this time. [facility]: PH: [phone]. Addendum entered by Adolfo Shafer 05/30/20 11:05: [facility] [phone] Original Note: ELEUTERIO BUSTILLOS NOTE: Pt will be discharged on IV Vancomycin Q 12 hrs and IV Cefepime Q 12 hrs. Per , pt prefers to discharge home w/HHC. RN APOLLO to room to discuss discharge planning w/pt. Introduced self and role of ELEUTERIO BUSTILLOS. Discussed HHC with pt and she prefers [facility] [place]. Pt denies preference of infusion company for IV medication. She was made aware referral will be made and financial information would be obtained for her to let her know what the [id number] cost would be for the medication. She states if it is not affordable, then she would consider SNF. Pt made aware ELEUTERIO BUSTILLOS will let her know once the financial information is obtained. Call placed to [place] [facility] and spoke w/Carlos Alberto and referral made. Referral packet/info faxed to [facility] at this time. [facility] uses [employer] for Infusion company for pt's w/MCR. Carlos Alberto made aware financial information is needed as soon as possible and she states they will expedite this. Lyudmila CARDOSON RN CM
[2020-05-30] MEDS: Vancomycin IV 1,000 MG/200 ML BAG 200 MG IV (13:26)
--- NOTE | 2020-05-30 15:39 | PCM.PN.HOSP ---
Patient Problems: Active and Suspected Problems (Last Reviewed 04/11/20 @ 14:[address] Yefri Rubio MD) Acute diarrhea (Acute) Hypokalemia (Acute) Cellulitis (Acute) Osteomyelitis of left fibula (Suspected) Reason for Visit: Follow-up on left lower extremity cellulitis/ulcer and acute C. difficile. Subjective: Patient was seen and examined. She denied having any diarrhea since yesterday. Her pain is controlled. Denied any fever or chills. IV antibiotics plan for outpatient. Home health could not be established today. Objective: Physical exam: General: Alert, Oriented x3, Cooperative, No apparent distress HEENT: Atraumatic, PERRLA, EOMI, Normocephalic Oral: Moist Mucosa Neck: Supple Lungs: Diminished - especially at lung bases Cardiovascular: Regular rate, Regular Rhythm, Normal S1, Normal S2, No murmurs Abdomen: Bowel Sounds Present, Soft, Non Tender, Non-Distended, No Hepato-splenomegaly Extremities: Edema - bilateral pedal edema +2, left lower leg is HOLLIE-wrapped. Skin: - - see under extremities Musculoskeletal: No Tenderness to Palpation of Joints or Extremities Lymphatic: No Cervical, Supraclavicular, or Inguinal Adenopathy Neurological: Cranial nerves II-XII grossly intact, Neuro grossly intact Psych/Mental Status: Normal Affect, Appropriate Vitals/I&O's: Vital Signs Temp Pulse Resp BP Pulse Ox 97.4 F L 102 H 16 123/64 H 96 05/30/20 13:21 05/30/20 13:21 05/30/20 13:21 05/30/20 13:21 05/30/20 13:21 Oxygen Flow Rate (L/min) 1 Oxygen Delivery Method Room Air Weight: 60.2 kg Body Mass Index (BMI) 26.8 Intake and Output for Last 24 Hours 05/28/20 05/29/20 05/30/20 23:59 23:59 23:59 Intake Total 2925 / 3225 2591.67 / 2591.67 1537.5 / 1537.5 Balance 2925 / 3225 2591.67 / 2591.67 1537.5 / 1537.5 Microbiology Past 72 Hours 05/29/20 Unknown Bone - Leg, Left Gram Stain - Final 05/29/20 Unknown Bone - Leg, Left Wound Culture - Preliminary Gram positive anna Beta hemolytic organism Gram positive organism#2 05/27/20 01:50 Wound - Leg, Left Gram Stain - Final 05/27/20 01:50 Wound - Leg, Left Wound Culture - Preliminary Streptococcus group B Corynebacterium striatum 05/27/20 00:00 Blood Culture (Wb) - Right Hand Blood Culture - Preliminary No growth in 48 hours. 05/26/20 23:14 Blood Culture (Wb) - Anticubital Left Blood Culture - Preliminary No growth in 48 hours. 05/27/20 01:15 Stool Enteric Bacteriology - Final Current Medications Acetaminophen (Tylenol) 650 mg PO Q6H PRN PRN PRN Reason: Pain Score 1-10/Temp > 100.7 F Al Hydroxide/Mg Hydroxide (Mylanta Ii) 30 ml PO Q6H PRN PRN PRN Reason: Gastric Burning Albuterol Sulfate (Ventolin Aerosols) 2.5 mg INHALATION Q2H PRN PRN PRN Reason: Dyspnea, wheezing Aspirin (Ecotrin) 81 mg PO QHS [facility] Last Admin: 05/29/20 21:24 Dose: 81 mg Documented by: Atorvastatin Calcium (Lipitor) 20 mg PO QHS [facility] Last Admin: 05/29/20 21:23 Dose: 20 mg Documented by: Calamine/Phenol (Calmoseptine Ointment) 1 applic TOPICAL TID [facility]; Protocol Last Admin: 05/30/20 13:26 Dose: 1 applicatio Documented by: Collagenase (Santyl) 1 applic TOPICAL DAILY [facility]; Protocol Last Admin: 05/30/20 13:27 Dose: 1 applicatio Documented by: Dextrose (D50w Syringe) 0 gm IV X1 PRN; Protocol PRN Reason: Hypoglycemia Doxepin HCl (Sinequan) 10 mg PO QHS [facility] Last Admin: 05/29/20 21:25 Dose: 10 mg Documented by: Enoxaparin Sodium (Lovenox) 40 mg SC DAILY [facility] Last Admin: 05/30/20 10:04 Dose: 40 mg Documented by: Glucagon () 1 mg IM .X1 PRN PRN Reason: Hypoglycemia Guaifenesin (Robitussin) 20 ml PO Q4H PRN PRN PRN Reason: COUGH Hydralazine HCl (Apresoline Iv) 10 mg IV Q4H PRN PRN PRN Reason: SBP > 160 Sodium Chloride () 250 mls @ 15 mls/hr IV .[id number] PRN PRN Reason: Saline Flush Sodium Chloride () 250 mls @ 15 mls/hr IV .[id number] PRN PRN Reason: Additional IVPB Infusion Vancomycin IV Pharmacy to Dose (1 ea/ Sodium Chloride) 500 mls @ 250 mls/hr IV X1 PRN; Protocol PRN Reason: Rx to Dose Cefepime HCl 2 gm/ Sodium (Chloride) 100 mls @ 200 mls/hr IV Q12 [facility] Last Infusion: 05/30/20 13:53 Dose: Infused Documented by: Vancomycin HCl (Vancomycin) 1,000 mg in 200 mls @ 200 mls/hr IV Q12H [facility] Last Infusion: 05/30/20 15:07 Dose: Infused Documented by: Lactobacillus Acidophilus (Acidophilus) 1 tablet PO BID [facility] Last Admin: 05/30/20 10:03 Dose: 1 tablet Documented by: Levothyroxine Sodium (Synthroid) 137 mcg PO QHS [facility] Last Admin: 05/29/20 21:25 Dose: 137 mcg Documented by: Melatonin (Melatonin) 3 mg PO QHS PRN PRN PRN Reason: INSOMNIA Last Admin: 05/29/20 21:25 Dose: 3 mg Documented by: Metoprolol Tartrate (Lopressor (Beta Mehran)) 5 mg IV Q6H PRN PRN PRN Reason: sustained tachycardia > 130 Metoprolol Tartrate (Lopressor (Beta Mehran)) 50 mg PO DAILY [facility] Last Admin: 05/30/20 10:05 Dose: 50 mg Documented by: Metoprolol Tartrate (Lopressor (Beta Mehran)) 100 mg PO QHS [facility] Last Admin: 05/29/20 21:24 Dose: 100 mg Documented by: Morphine Sulfate () 2 mg IV Q3H PRN PRN PRN Reason: Pain Score 6-10/10 Nutritional Formula (Lactose Free) (Ensure Clear) 120 ml PO 4X/DAY [facility] Last Admin: 05/30/20 15:07 Dose: Not Given Documented by: Nystatin (Nystatin) 500,000 unit PO 4X/DAY [facility] Ondansetron HCl (Zofran) 4 mg IV Q8H PRN PRN PRN Reason: NAUSEA/VOMITING Oxycodone HCl (Oxyir) 5 mg PO Q4H PRN PRN PRN Reason: Pain Score 4-5/10 Last Admin: 05/29/20 21:26 Dose: 5 mg Documented by: Pentoxifylline (Trental) 400 mg PO DAILY [facility] Last Admin: 05/30/20 10:04 Dose: 400 mg Documented by: Potassium Chloride (K-Dur) 20 meq PO BIDCM [facility] Last Admin: 05/30/20 10:04 Dose: 20 meq Documented by: Sodium Chloride () 10 - 40 ml IV UD PRN PRN Reason: SALINE FLUSH Last Admin: 05/28/20 16:03 Dose: 10 ml Documented by: Throat Lozenges (Cepacol Sore Throat Lozenge) 1 lozenge MUCOUS MEM Q2H PRN PRN PRN Reason: SORE THROAT Vancomycin HCl () 125 mg PO Q6 [facility] Last Admin: 05/30/20 13:26 Dose: 125 mg Documented by: STROKE Vital Signs/Narrative: Vital Signs Temp Pulse Resp BP Pulse Ox 05/30/20 13:21 97.4 F L 102 H 16 123/64 H 96 Medical Necessity - Tobacco Use Smoking Status: Former smoker Tobacco Use: Non-smoker Assessment/Plan All Active Problems (Last Reviewed 04/11/20 @ 14:[address] Yefri Rubio MD) Acute diarrhea (Acute) Hypokalemia (Acute) Cellulitis (Acute) Hx of knee surgery (Acute) History of hip surgery (Acute) Hx of tubal ligation (Acute) Pseudomonas aeruginosa colonization (Acute) Cellulitis of left leg (Acute) Colonization status (Acute) Diarrhea (Acute) Tachycardia (Acute) C. difficile colitis (Resolved) Ulcer of left lower extremity, limited to breakdown of skin (Acute) Colitis (Acute) 1. POD #1 status post passages subcutaneous excisional debridement of left leg ulcer, application of advanced wound healing product, amnio fill, biopsy of left fibula for acute left lower extremity cellulitis/acute on chronic osteomyelitis of left fibula Patient wityh chronic left lower extremity wound. Recent cultures grew Pseudomonas/strep beta-hemolytic Stable vitals, blood cultures are negative . Podiatry and ID consulted; outpatient 6 weeks IV vancomycin cefepime planned PICC line in place 2. Recurrent C. difficile, improved On oral vancomycin and lactobacillus, Long taper vancomycin as planned. 3. Electrolyte imbalances -hypokalemia, hypomagnesemia, resolved, recheck in a.m. 4. Hypothyroidism, continue on Synthroid 5. Hypertension, controlled, continue metoprolol and PRN hydralazine 6. Hyperlipidemia, continue on statins 7. DVT prophylaxis with Lovenox subcu Inpatient E&M: 35289 Subs Hosp L2
[2020-05-30] MEDS: NYSTATIN 500,000 UNIT/5 ML UDC 500000 UNIT PO ×3 (16:15→21:19)
--- NOTE | 2020-05-30 18:00 | PCM.PROGNOTE ---
Patient Problems: Active and Suspected Problems (Last Reviewed 04/11/20 @ 14:[address] Yefri Rubio MD) Acute diarrhea (Acute) Hypokalemia (Acute) Cellulitis (Acute) Osteomyelitis of left fibula (Suspected) Subjective: Patient was seen this afternoon, relates to some pain with dressing change left leg this afternoon by nursing. No other complaints at this time. No complaints of fever, chills, nausea or vomiting. - Physical Exam Vitals/I&O's: Vital Signs Temp Pulse Resp BP Pulse Ox 97.2 F L 96 20 H 119/66 92 05/30/20 16:22 05/30/20 16:22 05/30/20 16:22 05/30/20 16:22 05/30/20 16:22 Oxygen Flow Rate (L/min) 1 Oxygen Delivery Method Room Air Weight: 60.2 kg Body Mass Index (BMI) 26.8 Intake and Output for Last 24 Hours 05/28/20 05/29/20 05/30/20 23:59 23:59 23:59 Intake Total 2925 / 3225 2591.67 / 2591.67 1777.5 / 1777.5 Balance 2925 / 3225 2591.67 / 2591.67 1777.5 / 1777.5 General: Alert, Oriented x3, Cooperative, No apparent distress Extremities: Capillary Refill Less than 3 Seconds, - - Chronic ulcer left lateral leg w/ dressing clean, dry and intact. No evidence of ischemia to the left foot/ankle. Microbiology Past 72 Hours 05/29/20 Unknown Bone - Leg, Left Gram Stain - Final 05/29/20 Unknown Bone - Leg, Left Wound Culture - Preliminary Gram positive anna Beta hemolytic organism Gram positive organism#2 05/27/20 01:50 Wound - Leg, Left Gram Stain - Final 05/27/20 01:50 Wound - Leg, Left Wound Culture - Preliminary Streptococcus group B Corynebacterium striatum 05/27/20 00:00 Blood Culture (Wb) - Right Hand Blood Culture - Preliminary No growth in 48 hours. 05/26/20 23:14 Blood Culture (Wb) - Anticubital Left Blood Culture - Preliminary No growth in 48 hours. Current Medications Acetaminophen (Tylenol) 650 mg PO Q6H PRN PRN PRN Reason: Pain Score 1-10/Temp > 100.7 F Al Hydroxide/Mg Hydroxide (Mylanta Ii) 30 ml PO Q6H PRN PRN PRN Reason: Gastric Burning Albuterol Sulfate (Ventolin Aerosols) 2.5 mg INHALATION Q2H PRN PRN PRN Reason: Dyspnea, wheezing Aspirin (Ecotrin) 81 mg PO QHS [facility] Last Admin: 05/29/20 21:24 Dose: 81 mg Documented by: Atorvastatin Calcium (Lipitor) 20 mg PO QHS [facility] Last Admin: 05/29/20 21:23 Dose: 20 mg Documented by: Calamine/Phenol (Calmoseptine Ointment) 1 applic TOPICAL TID [facility]; Protocol Last Admin: 05/30/20 13:26 Dose: 1 applicatio Documented by: Collagenase (Santyl) 1 applic TOPICAL DAILY [facility]; Protocol Last Admin: 05/30/20 17:21 Dose: Not Given Documented by: Dextrose (D50w Syringe) 0 gm IV X1 PRN; Protocol PRN Reason: Hypoglycemia Doxepin HCl (Sinequan) 10 mg PO QHS [facility] Last Admin: 05/29/20 21:25 Dose: 10 mg Documented by: Enoxaparin Sodium (Lovenox) 40 mg SC DAILY [facility] Last Admin: 05/30/20 10:04 Dose: 40 mg Documented by: Glucagon () 1 mg IM .X1 PRN PRN Reason: Hypoglycemia Guaifenesin (Robitussin) 20 ml PO Q4H PRN PRN PRN Reason: COUGH Hydralazine HCl (Apresoline Iv) 10 mg IV Q4H PRN PRN PRN Reason: SBP > 160 Sodium Chloride () 250 mls @ 15 mls/hr IV .[id number] PRN PRN Reason: Saline Flush Sodium Chloride () 250 mls @ 15 mls/hr IV .[id number] PRN PRN Reason: Additional IVPB Infusion Vancomycin IV Pharmacy to Dose (1 ea/ Sodium Chloride) 500 mls @ 250 mls/hr IV X1 PRN; Protocol PRN Reason: Rx to Dose Cefepime HCl 2 gm/ Sodium (Chloride) 100 mls @ 200 mls/hr IV Q12 [facility] Last Infusion: 05/30/20 13:53 Dose: Infused Documented by: Vancomycin HCl (Vancomycin) 1,000 mg in 200 mls @ 200 mls/hr IV Q12H [facility] Last Infusion: 05/30/20 15:07 Dose: Infused Documented by: Lactobacillus Acidophilus (Acidophilus) 1 tablet PO BID [facility] Last Admin: 05/30/20 10:03 Dose: 1 tablet Documented by: Levothyroxine Sodium (Synthroid) 137 mcg PO QHS [facility] Last Admin: 05/29/20 21:25 Dose: 137 mcg Documented by: Melatonin (Melatonin) 3 mg PO QHS PRN PRN PRN Reason: INSOMNIA Last Admin: 05/29/20 21:25 Dose: 3 mg Documented by: Metoprolol Tartrate (Lopressor (Beta Mehran)) 5 mg IV Q6H PRN PRN PRN Reason: sustained tachycardia > 130 Metoprolol Tartrate (Lopressor (Beta Mehran)) 50 mg PO DAILY [facility] Last Admin: 05/30/20 10:05 Dose: 50 mg Documented by: Metoprolol Tartrate (Lopressor (Beta Mehran)) 100 mg PO QHS [facility] Last Admin: 05/29/20 21:24 Dose: 100 mg Documented by: Morphine Sulfate () 2 mg IV Q3H PRN PRN PRN Reason: Pain Score 6-10/10 Nutritional Formula (Lactose Free) (Ensure Clear) 120 ml PO 4X/DAY [facility] Last Admin: 05/30/20 17:22 Dose: Not Given Documented by: Nystatin (Nystatin) 500,000 unit PO 4X/DAY [facility] Last Admin: 05/30/20 17:39 Dose: 500,000 unit Documented by: Ondansetron HCl (Zofran) 4 mg IV Q8H PRN PRN PRN Reason: NAUSEA/VOMITING Oxycodone HCl (Oxyir) 5 mg PO Q4H PRN PRN PRN Reason: Pain Score 4-5/10 Last Admin: 05/29/20 21:26 Dose: 5 mg Documented by: Pentoxifylline (Trental) 400 mg PO DAILY [facility] Last Admin: 05/30/20 10:04 Dose: 400 mg Documented by: [facility] Admin: 05/30/20 16:15 Dose: 20 meq Documented by: Sodium Chloride () 10 - 40 ml IV UD PRN PRN Reason: SALINE FLUSH Last Admin: 05/28/20 16:03 Dose: 10 ml Documented by: Throat Lozenges (Cepacol Sore Throat Lozenge) 1 lozenge MUCOUS MEM Q2H PRN PRN PRN Reason: SORE THROAT Vancomycin HCl () 125 mg PO Q6 [facility] Last Admin: 05/30/20 17:39 Dose: 125 mg Documented by: Medical Necessity - Tobacco Use Smoking Status: Former smoker Tobacco Use: Non-smoker Assessment/Plan All Active Problems (Last Reviewed 04/11/20 @ 14:[address] Yefri Rubio MD) Acute diarrhea (Acute) Hypokalemia (Acute) Cellulitis (Acute) Hx of knee surgery (Acute) History of hip surgery (Acute) Hx of tubal ligation (Acute) Pseudomonas aeruginosa colonization (Acute) Cellulitis of left leg (Acute) Colonization status (Acute) Diarrhea (Acute) Tachycardia (Acute) C. difficile colitis (Resolved) Ulcer of left lower extremity, limited to breakdown of skin (Acute) Colitis (Acute) Left leg ulceration down to subcutaneous ulcer - chronic Cellulitis left lower extremity -improved Osteomyelitis left fibula Peripheral vascular disease lower extremity - chronic Diarrhea w/ c. diff Multiple comorbidities Left leg ulceration is chronic - s/p debridement with placement of AminoFill and also fibular bone biopsy. Reviewed available culture results, finals pending. Patient on 6 week course, and also being treated for c diff by Dr. De La Cruz. Wound care left leg: Keep AminoFill intact, keep covered with adaptic, and gauze/bereket dressing. Keep ulcer offloaded, keep elevated and proceed with light compression.
[2020-05-30] MEDS: Ensure Clear 120 ML Liquid PO (21:16)
[2020-05-30] MEDS: Atorvastatin Calcium 20 MG Tablet PO (21:16)
[2020-05-30] MEDS: Aspirin E.C. 81 MG Tablet PO (21:16)
[2020-05-30] MEDS: Doxepin Hydrochloride 10 MG Capsule PO (21:19)
[2020-05-30] MEDS: Levothyroxine 137 MCG Tablet PO (21:19)
[2020-05-30] MEDS: oxyCODONE 5 MG Tablet PO (21:53)
[2020-05-30] MEDS: Metoprolol Tartrate 100 MG Tablet PO (21:53)
[2020-05-31] MEDS: Vancomycin IV 1,000 MG/200 ML BAG 200 MG IV ×2 (00:28→12:05)
[2020-05-31 03:00] VITALS: PULSE 75
[2020-05-31 03:13] VITALS: BP 135/59; PULSE 75; RESP 18; TEMP 36.6; O2SAT 92
[2020-05-31] MEDS: Menthol/Lanolin/Calamine/Znox 113 GM Tube 1 APPLIC TOPICAL (06:00)
[2020-05-31 07:00] VITALS: PULSE 95
--- NOTE | 2020-05-31 07:36 | PCM.PROGNOTE ---
Patient Problems: Active and Suspected Problems (Last Reviewed 04/11/20 @ 14:[address] Yefri Rubio MD) Acute diarrhea (Acute) Hypokalemia (Acute) Cellulitis (Acute) Osteomyelitis of left fibula (Suspected) Subjective: Patient was seen today for follow up on left leg ulceration, she relates site is feeling much better. She has no new complaints. No complaints of fever, chills, nausea or vomiting. - Physical Exam Vitals/I&O's: Vital Signs Temp Pulse Resp BP Pulse Ox 97.8 F 95 18 135/59 H 92 05/31/20 03:13 05/31/20 07:00 05/31/20 03:13 05/31/20 03:13 05/31/20 03:13 Oxygen Flow Rate (L/min) 1 Oxygen Delivery Method Room Air Weight: 60.2 kg Body Mass Index (BMI) 26.8 Intake and Output for Last 24 Hours 05/29/20 05/30/20 05/31/20 23:59 23:59 23:59 Intake Total 2591.67 / 2591.67 400 / 400 Balance 2591.67 / 2591.67 400 / 400 General: Alert, Oriented x3, Cooperative, No apparent distress Extremities: Capillary Refill Less than 3 Seconds, - - Dressing clean, dry and intact left foot/ankle/leg w/ no strikethrough. Pain is controlled and very minimal to none at this time left leg. No open lesions or areas of breakdown to heel bilateral or right foot/ankle or leg. Microbiology Past 72 Hours 05/29/20 Unknown Bone - Leg, Left Gram Stain - Final 05/29/20 Unknown Bone - Leg, Left Wound Culture - Preliminary Gram positive anna Beta hemolytic organism Gram positive organism#2 05/27/20 01:50 Wound - Leg, Left Gram Stain - Final 05/27/20 01:50 Wound - Leg, Left Wound Culture - Preliminary Streptococcus group B Corynebacterium striatum 05/27/20 00:00 Blood Culture (Wb) - Right Hand Blood Culture - Preliminary No growth in 48 hours. 05/26/20 23:14 Blood Culture (Wb) - Anticubital Left Blood Culture - Preliminary No growth in 48 hours. Current Medications Acetaminophen (Tylenol) 650 mg PO Q6H PRN PRN PRN Reason: Pain Score 1-10/Temp > 100.7 F Al Hydroxide/Mg Hydroxide (Mylanta Ii) 30 ml PO Q6H PRN PRN PRN Reason: Gastric Burning Albuterol Sulfate (Ventolin Aerosols) 2.5 mg INHALATION Q2H PRN PRN PRN Reason: Dyspnea, wheezing Aspirin (Ecotrin) 81 mg PO QHS [facility] Last Admin: 05/30/20 21:16 Dose: 81 mg Documented by: Atorvastatin Calcium (Lipitor) 20 mg PO QHS [facility] Last Admin: 05/30/20 21:16 Dose: 20 mg Documented by: Calamine/Phenol (Calmoseptine Ointment) 1 applic TOPICAL TID [facility]; Protocol Last Admin: 05/31/20 06:00 Dose: 1 applicatio Documented by: Collagenase (Santyl) 1 applic TOPICAL DAILY [facility]; Protocol Last Admin: 05/30/20 17:21 Dose: Not Given Documented by: Dextrose (D50w Syringe) 0 gm IV X1 PRN; Protocol PRN Reason: Hypoglycemia Doxepin HCl (Sinequan) 10 mg PO QHS [facility] Last Admin: 05/30/20 21:19 Dose: 10 mg Documented by: Enoxaparin Sodium (Lovenox) 40 mg SC DAILY [facility] Last Admin: 05/30/20 10:04 Dose: 40 mg Documented by: Glucagon () 1 mg IM .X1 PRN PRN Reason: Hypoglycemia Guaifenesin (Robitussin) 20 ml PO Q4H PRN PRN PRN Reason: COUGH Hydralazine HCl (Apresoline Iv) 10 mg IV Q4H PRN PRN PRN Reason: SBP > 160 Sodium Chloride () 250 mls @ 15 mls/hr IV .[id number] PRN PRN Reason: Saline Flush Sodium Chloride () 250 mls @ 15 mls/hr IV .[id number] PRN PRN Reason: Additional IVPB Infusion Vancomycin IV Pharmacy to Dose (1 ea/ Sodium Chloride) 500 mls @ 250 mls/hr IV X1 PRN; Protocol PRN Reason: Rx to Dose Cefepime HCl 2 gm/ Sodium (Chloride) 100 mls @ 200 mls/hr IV Q12 [facility] Last Infusion: 05/30/20 21:50 Dose: Infused Documented by: Vancomycin HCl (Vancomycin) 1,000 mg in 200 mls @ 200 mls/hr IV Q12H [facility] Last Infusion: 05/31/20 01:30 Dose: Infused Documented by: Lactobacillus Acidophilus (Acidophilus) 1 tablet PO BID [facility] Last Admin: 05/30/20 21:15 Dose: 1 tablet Documented by: Levothyroxine Sodium (Synthroid) 137 mcg PO QHS [facility] Last Admin: 05/30/20 21:19 Dose: 137 mcg Documented by: Melatonin (Melatonin) 3 mg PO QHS PRN PRN PRN Reason: INSOMNIA Last Admin: 05/29/20 21:25 Dose: 3 mg Documented by: Metoprolol Tartrate (Lopressor (Beta Mehran)) 5 mg IV Q6H PRN PRN PRN Reason: sustained tachycardia > 130 Metoprolol Tartrate (Lopressor (Beta Mehran)) 50 mg PO DAILY [facility] Last Admin: 05/30/20 10:05 Dose: 50 mg Documented by: Metoprolol Tartrate (Lopressor (Beta Mehran)) 100 mg PO QHS [facility] Last Admin: 05/30/20 21:53 Dose: 100 mg Documented by: Morphine Sulfate () 2 mg IV Q3H PRN PRN PRN Reason: Pain Score 6-10/10 Nutritional Formula (Lactose Free) (Ensure Clear) 120 ml PO 4X/DAY [facility] Last Admin: 05/30/20 21:16 Dose: 120 ml Documented by: Nystatin (Nystatin) 500,000 unit PO 4X/DAY [facility] Last Admin: 05/30/20 21:19 Dose: 500,000 unit Documented by: Ondansetron HCl (Zofran) 4 mg IV Q8H PRN PRN PRN Reason: NAUSEA/VOMITING Oxycodone HCl (Oxyir) 5 mg PO Q4H PRN PRN PRN Reason: Pain Score 4-5/10 Last Admin: 05/30/20 21:53 Dose: 5 mg Documented by: Pentoxifylline (Trental) 400 mg PO DAILY [facility] Last Admin: 05/30/20 10:04 Dose: 400 mg Documented by: Potassium [facility] ([facility]Dur) [facility] Admin: 05/30/20 16:15 Dose: 20 meq Documented by: Sodium Chloride () 10 - 40 ml IV UD PRN PRN Reason: SALINE FLUSH Last Admin: 05/28/20 16:03 Dose: 10 ml Documented by: Throat Lozenges (Cepacol Sore Throat Lozenge) 1 lozenge MUCOUS MEM Q2H PRN PRN PRN Reason: SORE THROAT Vancomycin HCl () 125 mg PO Q6 [facility] Last Admin: 05/31/20 05:59 Dose: 125 mg Documented by: Medical Necessity - Tobacco Use Smoking Status: Former smoker Tobacco Use: Non-smoker Assessment/Plan All Active Problems (Last Reviewed 04/11/20 @ 14:[address] Yefri Rubio MD) Acute diarrhea (Acute) Hypokalemia (Acute) Cellulitis (Acute) Hx of knee surgery (Acute) History of hip surgery (Acute) Hx of tubal ligation (Acute) Pseudomonas aeruginosa colonization (Acute) Cellulitis of left leg (Acute) Colonization status (Acute) Diarrhea (Acute) Tachycardia (Acute) C. difficile colitis (Resolved) Ulcer of left lower extremity, limited to breakdown of skin (Acute) Colitis (Acute) Left leg ulceration down to subcutaneous ulcer - chronic s/p debridement Cellulitis left lower extremity -resolved Osteomyelitis left fibula Peripheral vascular disease lower extremity - chronic Diarrhea w/ c. diff Multiple comorbidities Left leg ulceration is chronic - s/p debridement with placement of AminoFill and also fibular bone biopsy on 05/29/2020. Reviewed available culture results, finals pending. Patient on 6 week course, and also being treated for c diff by Dr. De La Cruz. Wound care left leg: Keep AminoFill intact, keep covered with adaptic, and gauze/bereket dressing - leave dressing clean, dry and intact at this time - do not change. Keep ulcer offloaded, keep elevated and proceed with light compression. Patient to follow up with Dr. Cooper at wound center after discharge.
[2020-05-31 08:12] LABS: Absolute Lymphocyte Count 2.59 X10^3/uL (0.83-4.51); Absolute Neutrophil Count 2.5 X10^3/uL (2.0-7.7); Basophil# 0.05 X10^3/uL; Basophil% 0.7 % (0-1); Eosinophil# 0.95 X10^3/uL; Eosinophils% 13.9 % (0-5); Hematocrit 35.2 % (37-47); Hemoglobin 11.1 g/dL (12.0-15.0); Lymphocyte # 2.59 X10^3/ul (4.0); Lymphocyte % 37.9 % (19-41); Mean Corp Hgb Conc 31.5 g/dL (32-36); Mean Corpuscular Hgb 28.2 pg (27.0-32.0); Mean Corpuscular Volume 89.6 fL (81-99); Mean Platelet Vol. 8.8 fl (6.2-12.0); Monocyte# 0.65 X10^3/uL; Monocyte% 9.5 % (0-10); NRBC Flagged by Analyzer 0 % (0-5); Neutrophil # 2.54 X10^3/uL (2.7-7.7); Neutrophil % 37.3 % (47-70); Platelet Count 259 K/mm3 (150-450); RBC Distribution Width CV 14.3 % (11.6-14.6); RBC Distribution Width SD 46.4 fl (35.1-43.9); Red Blood Count 3.93 M/mm3 (4.2-5.4); White Blood Count 6.8 K/mm3 (4.4-11.0)
[2020-05-31 08:31] LABS: ALB/GLOB Ratio 0.7 RATIO (0.9-2.4); AST(SGOT) 13 U/L (15-37); Alanine Aminotransfer ALT/SGPT 13 U/L (13-56); Albumin, Serum 2.6 g/dL (3.2-5.0); Alkaline Phosphatase 84 U/L (45-117); Anion Gap 1 (5-15); BUN 5 mg/dL (7-18); BUN/Creat Ratio 11.8 RATIO (10-20); Calcium,Total 8.5 mg/dL (8.5-10.1); Chloride 108 mmol/L (98-107); Creatinine, Serum 0.42 mg/dL (0.55-1.02); EST Glomerular Filtration Rate 156 mL/min (>60); Est Glom Filt Rate - Afr Amer 189 mL/min (>60); Estimated Creatinine Clearance 49.04 ml/min; Globulin 3.7 g/dL (2.2-4.2); Glucose 91 mg/dL (74-106); Potassium 4.1 mmol/L (3.5-5.1); Protein, Total 6.3 g/dL (6.4-8.2); Sodium Level 140 mmol/L (136-145)
--- NOTE | 2020-05-31 10:04 | CASEMGMT ---
Addendum entered by Adolfo Shafer 05/31/20 15:21: PICC insertion documentation faxed to [facility] and to [facility] at this time Addendum entered by Adolfo Shafer 05/31/20 13:17: Mary @ [facility] and Melany @ [facility] both made aware referral's to them are cancelled d/t another [facility] has been able to accept pt. Addendum entered by Adolfo Shafer 05/31/20 12:55: Call received back from Inna @ [facility]. She states they are able to accept pt, with start of care this PM. She states nurse will be @ pt's home earlier than 10PM Call placed to [facility] and spoke w/Rina. She was made aware [facility] able to accept pt and start of care will be this PM for the 2200 dose. She states she will let Chata know. ELEUTERIO BUSTILLOS to fax PICC insertion info to them once it is available. ELEUTERIO BUSTILLOS to room at this time and let pt/dtr know that [facility] is able to accept pt and start of care will be this PM. They were made aware nurse from [facility] will be calling pt to arrange time of appt/start of care. Pt/dtr also made aware I will be contacting pt to set up time of delivery of IV atb. Pt/dtr deny having any further discharge needs/concerns/questions and voiced appreciation Dr Holley made aware of accepting [facility] and that pt will be ready for discharge after PICC inserted. Addendum entered by Adolfo Shafer 05/31/20 12:27: Call placed back to [facility] and spoke w/Melany again. She states referral is still in review, but she would call to have this escalated. Addendum entered by Adolfo Shafer 05/31/20 12:20: Call placed to [facility] and spoke to Ayanna. They do not cover pt's area. [facility] to [facility] and spoke to several different offices/locations: [facility], [facility], and [place]. They are not able to accept pt either d/t they do not cover pt's location or they do not have staffing. Call placed back to [facility] at this time inquire if referral has been reviewed/if they are able to accept pt. They are still waiting on nurse to review this referral. This RN APOLLO asked if this could be expedited, as pt is to discharge today. Addendum entered by Adolfo Shafer 05/31/20 11:11: Call placed to [facility] and spoke to Mary. Referral made and info faxed to her at this time. She is aware pt is discharging today and 1st dose Home atb's due @ 2200. She was also made aware dtr/pt agreeable/able to learn how to administer IV atb's. Addendum entered by Adolfo Shafer 05/31/20 10:46: Call placed to [facility] and spoke w/Chata. Referral made/packet faxed. She ran pt's insurance and calculated financials. She states pt's financial responsibility through them will be ~$1,915. She is aware pt is discharging today and will need 1st dose Home atb's @ 2200 this PM. She was made aware referral has been made w/[facility], but will have pt get atb's through [facility] d/t cheaper cost. She states [facility] is sister company to [facility] and that she will call Aileen @ [facility] to cancel referral with them. Pt/daughter made aware cost of atb's through [facility] is $1,915 and that someone from [facility] would be contacting patient to discuss financial agreement. Pt/dtr voice appreciation. Addendum entered by Adolfo Shafer 05/31/20 10:31: Call placed to [facility] @ [place] location and spoke w/Melany and referral made. Referral packet/info faxed to her at this time. She is aware pt is discharging today and 1st dose Home atb's due @ 2200. She was also made aware dtr/pt agreeable/able to learn how to administer IV atb's. Referral packet has also been faxed to [facility]. Original Note: RN CM NOTE: To room to talk with pt. Pt states she has decided to go home w/[facility] and states they are willing to pay the [id number] cost for IV atb's of ~$2500. Pt is aware that SNF/TCU would be covered @ 100% for 20 days @ SNF/TCU and discussed this with pt as an option to do 1st prior to returning home w/[facility]. Pt states she does not want to go to TCU or another SNF even for short-term. Call placed to [facility] and spoke w/Aylin to discuss if they may be able to take pt. She has reviewed this and states they are not able to accept pt at this time d/t staffing. Call placed to [facility] and spoke Lela and referral made. She is aware pt is discharging today and 1st dose Home atb's due @ 2200. Lyudmila CARDOSON RN APOLLO
[2020-05-31 10:40] VITALS: BP 153/75; PULSE 102; RESP 16; TEMP 36.4; O2SAT 92
[2020-05-31 10:47] VITALS: PULSE 102
[2020-05-31] MEDS: Pentoxifylline 400 MG Tablet PO (10:47)
[2020-05-31] MEDS: Metoprolol Tartrate 50 MG Tablet PO (10:47)
[2020-05-31] MEDS: NYSTATIN 500,000 UNIT/5 ML UDC 500000 UNIT PO ×2 (10:47→13:38)
[2020-05-31] MEDS: Enoxaparin 40 MG/0.4 ML Syringe SC (10:48)
[2020-05-31] MEDS: 0.9% Saline Lock 10 ML Syringe IV (10:54)
[2020-05-31 15:00] VITALS: PULSE 88
--- NOTE | 2020-05-31 15:04 | DCINST_ITS ---
- Discharge Diagnoses Current Active Problems: Current Active and Chronic Problems (Last Reviewed 04/11/20 @ 14:[address] Yefri Rubio MD) Acute diarrhea (Acute) Hypokalemia (Acute) Cellulitis (Acute) Reason(s) for Visit for Discharge Instructions: diarrhea, worsening left leg ulcer You will use the following diet at home:: Cardiac Your food should be the consistency of: Regular Your liquids should be the consistency of: Regular/Thin Discharge Activity: Return to Normal Activity Additional Instructions: You will be discharged home with home health. Continue to take all your medications. Follow-up with podiatry on June 05. Follow-up with podiatry recommendations for wound care. Follow-up with infectious disease in 2 weeks. Allergies/Adverse Reactions: Allergies naproxen [From Naprosyn] Allergy (Verified 05/26/20 23:04) Rash Penicillins [PCN] Allergy (Verified 05/26/20 23:04) Rash amoxicillin Adverse Reaction (Verified 05/26/20 23:04) Rash cephalexin [From Keflex] Adverse Reaction (Verified 05/26/20 23:04) Rash clotrimazole [From Lotrimin] Adverse Reaction (Verified 05/26/20 23:04) Rash diphenhydramine [From Benadryl] Adverse Reaction (Verified 05/26/20 23:04) Rash griseofulvin Adverse Reaction (Verified 05/26/20 23:04) Rash ibuprofen [From Motrin] Adverse Reaction (Verified 05/26/20 23:04) Rash miconazole [From Monistat 1 Combo Pack] Adverse Reaction (Verified 05/26/20 23:04) Rash propranolol [From Inderal LA] Adverse Reaction (Verified 05/26/20 23:04) Rash rofecoxib [From Vioxx] Adverse Reaction (Verified 05/26/20 23:04) Rash Sulfa (Sulfonamide Antibiotics) Adverse Reaction (Verified 05/26/20 23:04) Rash Medications to take at Discharge Aspirin E.C. [Ecotrin] 81 mg PO QHS 11/28/19 Doxepin HCl [Sinequan] 10 mg PO QHS 11/28/19 Levothyroxine [Synthroid] 137 mcg PO QHS 11/28/19 Pentoxifylline [Trental] 400 mg PO DAILY 11/28/19 Simvastatin [Zocor] 40 mg PO QHS 11/28/19 Lactobacillus Acidophilus [Acidophilus] 2 tab PO BID 03/26/20 Metoprolol Tartrate 50 mg PO DAILY 03/26/20 Metoprolol Tartrate [Lopressor (beta stefany)] 100 mg PO QHS 03/26/20 cholecalciferol (vitamin D3) 25 mcg (1,000 unit) capsule 25 mcg PO DAILY 04/11/20 Collagenase [Santyl] 1 applic TOPICAL DAILY 05/27/20 Cefepime HCl [Maxipime] 2 gm IV Q12 40 Days #80 vial 05/30/20 Vancomcyin 125mg/5mL PO Liquid 125 mg PO Q6 #56 po.syringe 05/30/20 Vancomycin/0.9 % Sod Chloride [Vanco 1 Gram/250 ml-0.9% NaCl] 1 gm IV Q12H 40 Days #80 plast..bag 05/30/20 Acetaminophen [Tylenol Tablet] 650 mg PO Q6H PRN PRN tab 05/31/20 Ensure Clear 120 ml PO 4X/DAY #100 liquid 05/31/20 The following prescriptions were given: Ensure Clear 120 ml PO 4X/DAY #100 liquid Transmission Status: Received by [id number] Cefepime HCl [Maxipime] 2 gm IV Q12 40 Days #80 vial Prescription Printed Vancomycin/0.9 % Sod Chloride [Vanco 1 Gram/250 ml-0.9% NaCl] 1 gm IV Q12H 40 Days #80 plast..bag Prescription Printed Vancomcyin 125mg/5mL PO Liquid 125 mg PO Q6 #56 po.syringe Prescription Printed Primary Care Physician: Boo Saunders MD [Primary Care Provider] - Please follow up with your Primary Care Physician in: within 1-2 weeks Test Results: Test results from this visit will be discussed in further detail at your follow- up appointment, if applicable. Please Follow Up With: Pola De La Cruz MD When: follow-up in 2 weeks Please Follow Up With: Abby Cooper DPM When: Follow-up on June 05 Proposed Discharge Date: 05/31/20
--- NOTE | 2020-05-31 15:11 | PCM.DC.SUM ---
Discharge Date and Diagnosis - Problem List Patient Problems: Active and Suspected Problems (Last Reviewed 04/11/20 @ 14:[address] Yefri Rubio MD) Acute diarrhea (Acute) Hypokalemia (Acute) Cellulitis (Acute) Osteomyelitis of left fibula (Suspected) Date of Admission: 05/27/20 Date of Discharge: 05/31/20 - Primary Discharge Diagnosis Acute Problems: Active Problems (Last Reviewed 04/11/20 @ 14:[address] Yefri Rubio MD) acute left lower extremity cellulitis acute on chronic osteomyelitis of left fibula Acute recurrent C. difficile Hypokalemia Hypomagnesemia Suspected Problems: Suspected Problems (Last Reviewed 04/11/20 @ 14:[address] Yefri Rubio MD) Osteomyelitis of left fibula (Suspected) - Secondary Discharge Diagnosis Chronic Problems: Chronic Problems (Last Reviewed 04/11/20 @ 14:[address] Yefri Rubio MD) Localized edema (Chronic) Ulcer of left lower extremity with fat layer exposed (Chronic) Delayed wound healing (Chronic) Venous insufficiency (Chronic) left Greater saphenous vein Other specified peripheral vascular diseases (Chronic) bilateral lower extremity Left leg pain (Chronic) Leg edema, left (Chronic) MVP (mitral valve prolapse) (Chronic) Thyroid disorder (Chronic) HTN (hypertension) (Chronic) HLD (hyperlipidemia) (Chronic) Former tobacco use (Chronic) Sinus tachycardia (Chronic) Hospital Course and Treatment Imaging Results: Clinical Impression(s) from Imaging Studies Tibia/Fibula X-Ray 05/27/20 15:11 IMPRESSION: Probable acute on chronic osteomyelitis of the left fibula 1. Interval appearance of moderate mature appearing periosteal reaction along the lateral cortex of the mid to distal fibular shaft. 2. Mild cortical thinning is also present in the mid to distal one third aspect of the cortical shaft suggesting mild osteomyelitis. Which could be related to gas from an open wound Electronically Signed: Carlos Navarro MD at 23:52 EDT , Service support , Lower Extremity MRI 05/28/20 12:37 IMPRESSION: 1. Acute on chronic osteomyelitis of the distal one third aspect of the left fibula. Mild cortical erosion is present on the lateral cortical surface with surrounding periosteal reaction. 2. Mild inflammation/infection of the overlying muscle fibers without an abscess. Electronically Signed: Carlos Navarro MD at 18:12 EDT , Service support , Tibia/Fibula X-Ray 05/29/20 07:18 IMPRESSION: Intraoperative films after debridement of a wound over the left tibia and fibula Electronically Signed: Rafiq Frost MD at 9:46 EDT , Service support , Consultations 05/27/20 01:21 Consult: Onc/Wound/tile applicator Routine Comment: Infectious disease Podiatry Operations: - - Versajet subcutaneous excisional debridement of left leg ulcer. Application of advanced wound healing product, amnio fill left leg. Bone biopsy to left fibula on 05/29/20 Procedures: None Summary of Care Provided: The patient is a 69 year old F with past medical history of chronic leg ulcer, hypertension, history of C. difficile, hypothyroidism, who comes in with ongoing diarrhea, more than 5 times a day with nausea and occasional vomiting ongoing for 3 days. Patient was also noted to have left lower extremity wound periwound erythema extending from the ankle to the knee. She denies any fever or chills. Her work-up in the ED was significant for severe hypokalemia and hypomagnesemia. This was replaced. Patient was found to have cellulitis of the lower extremity. She was started on IV antibiotics and admitted to the regular floor. Podiatry and infectious disease were consulted. Patient continued to improve. Wound cultures grew gram-positive anna, spoke group B, Corynebacterium. Stool for C. difficile was positive. On 05/29/20, patient underwent Versajet subcutaneous excisional debridement of left leg ulcer, application of advanced wound healing product, amnio fill left leg. Bone biopsy left fibula. She was maintained on vancomycin and cefepime. A PICC line was placed on 05/31/20 and patient was discharged home with 6 weeks of antibiotics. Patient Problems: Active and Suspected Problems (Last Reviewed 04/11/20 @ 14:[address] Yefri Rubio MD) Acute diarrhea (Acute) Hypokalemia (Acute) Cellulitis (Acute) Osteomyelitis of left fibula (Suspected) Subjective: On the day of discharge, patient was seen and examined. Denied any new complaint. Objective: Physical exam: General: Alert, Oriented x3, Cooperative, No apparent distress HEENT: Atraumatic, PERRLA, EOMI, Normocephalic Oral: Moist Mucosa Neck: Supple Lungs: Diminished - especially at lung bases Cardiovascular: Regular rate, Regular Rhythm, Normal S1, Normal S2, No murmurs Abdomen: Bowel Sounds Present, Soft, Non Tender, Non-Distended, No Hepato-splenomegaly Extremities: Edema - bilateral pedal edema +2, left lower leg is HOLLIE-wrapped. Skin: - - see under extremities Musculoskeletal: No Tenderness to Palpation of Joints or Extremities Lymphatic: No Cervical, Supraclavicular, or Inguinal Adenopathy Neurological: Cranial nerves II-XII grossly intact, Neuro grossly intact Psych/Mental Status: Normal Affect, Appropriate - Physical Exam Vitals/I&O's: Vital Signs Temp Pulse Resp BP Pulse Ox 97.6 F L 102 H 16 153/75 H 92 05/31/20 10:40 05/31/20 10:47 05/31/20 10:40 05/31/20 10:40 05/31/20 10:40 Oxygen Flow Rate (L/min) 1 Oxygen Delivery Method Room Air Weight: 60.2 kg Body Mass Index (BMI) 26.8 Intake and Output for Last 24 Hours 05/29/20 05/30/20 05/31/20 23:59 23:59 23:59 Intake Total 2591.67 / 2591.67 700 / 700 Balance 2591.67 / 2591.67 700 / 700 Microbiology Past 72 Hours 05/29/20 Unknown Bone - Leg, Left Gram Stain - Final 05/29/20 Unknown Bone - Leg, Left Wound Culture - Preliminary Gram positive anna Streptococcus group B 05/29/20 Unknown Bone - Leg, Left Anaerobic Culture - Preliminary Checking for anaerobes, further studies to follow. 05/27/20 01:50 Wound - Leg, Left Gram Stain - Final 05/27/20 01:50 Wound - Leg, Left Wound Culture - Final Streptococcus agalactiae (B) Corynebacterium striatum 05/27/20 00:00 Blood Culture (Wb) - Right Hand Blood Culture - Preliminary No growth in 48 hours. 05/26/20 23:14 Blood Culture (Wb) - Anticubital Left Blood Culture - Preliminary No growth in 48 hours. Laboratory Results 05/31/20 08:04: WBC 6.8, RBC 3.93 L, Hgb 11.1 L, Hct 35.2 L, MCV 89.6, MCH 28.2, MCHC 31.5 L, RDW Std Deviation 46.4 H, RDW Coeff of Naseem 14.3, Plt Count 259, MPV 8.8, Immature Gran % (Auto) 0.700, Neut % (Auto) 37.3 L, Lymph % (Auto) 37.9, [place] % (Auto) 9.5, Eos % (Auto) 13.9 H, Baso % (Auto) 0.7, Absolute Neuts (auto) 2.5, Absolute Lymphs (auto) 2.59, Nucleated RBC % 0 05/31/20 08:04: Sodium 140, Potassium 4.1, Chloride 108 H, Carbon Dioxide 31.0, Anion Gap 1 L, BUN 5 L, Creatinine 0.42 L, Estim Creat Clear Calc 49.04, Est GFR (MDRD) Af Amer 189, Est GFR (MDRD) Non-Af 156, BUN/Creatinine Ratio 11.8, Glucose 91, Calcium 8.5, Total Bilirubin 0.30, AST 13 L, ALT 13, Alkaline Phosphatase 84, Total Protein 6.3 L, Albumin 2.6 L, Globulin 3.7, Albumin/Globulin Ratio 0.7 L Current Medications Acetaminophen (Tylenol) 650 mg PO Q6H PRN PRN PRN Reason: Pain Score 1-10/Temp > 100.7 F Al Hydroxide/Mg Hydroxide (Mylanta Ii) 30 ml PO Q6H PRN PRN PRN Reason: Gastric Burning Albuterol Sulfate (Ventolin Aerosols) 2.5 mg INHALATION Q2H PRN PRN PRN Reason: Dyspnea, wheezing Aspirin (Ecotrin) 81 mg PO QHS [facility] Last Admin: 05/30/20 21:16 Dose: 81 mg Documented by: Atorvastatin Calcium (Lipitor) 20 mg PO QHS [facility] Last Admin: 05/30/20 21:16 Dose: 20 mg Documented by: Calamine/Phenol (Calmoseptine Ointment) 1 applic TOPICAL TID [facility]; Protocol Last Admin: 05/31/20 13:39 Dose: Not Given Documented by: Collagenase (Santyl) 1 applic TOPICAL DAILY [facility]; Protocol Last Admin: 05/31/20 10:47 Dose: Not Given Documented by: Dextrose (D50w Syringe) 0 gm IV X1 PRN; Protocol PRN Reason: Hypoglycemia Doxepin HCl (Sinequan) 10 mg PO QHS [facility] Last Admin: 05/30/20 21:19 Dose: 10 mg Documented by: Enoxaparin Sodium (Lovenox) 40 mg SC DAILY [facility] Last Admin: 05/31/20 10:48 Dose: 40 mg Documented by: Glucagon () 1 mg IM .X1 PRN PRN Reason: Hypoglycemia Guaifenesin (Robitussin) 20 ml PO Q4H PRN PRN PRN Reason: COUGH Hydralazine HCl (Apresoline Iv) 10 mg IV Q4H PRN PRN PRN Reason: SBP > 160 Sodium Chloride () 250 mls @ 15 mls/hr IV .[id number] PRN PRN Reason: Saline Flush Sodium Chloride () 250 mls @ 15 mls/hr IV .[id number] PRN PRN Reason: Additional IVPB Infusion Vancomycin IV Pharmacy to Dose (1 ea/ Sodium Chloride) 500 mls @ 250 mls/hr IV X1 PRN; Protocol PRN Reason: Rx to Dose Cefepime HCl 2 gm/ Sodium (Chloride) 100 mls @ 200 mls/hr IV Q12 [facility] Last Infusion: 05/31/20 12:11 Dose: Infused Documented by: Vancomycin HCl (Vancomycin) 1,000 mg in 200 mls @ 200 mls/hr IV Q12H [facility] Last Infusion: 05/31/20 13:40 Dose: Infused Documented by: Lactobacillus Acidophilus (Acidophilus) 1 tablet PO BID [facility] Last Admin: 05/31/20 10:47 Dose: 1 tablet Documented by: Levothyroxine Sodium (Synthroid) 137 mcg PO QHS [facility] Last Admin: 05/30/20 21:19 Dose: 137 mcg Documented by: Melatonin (Melatonin) 3 mg PO QHS PRN PRN PRN Reason: INSOMNIA Last Admin: 05/29/20 21:25 Dose: 3 mg Documented by: Metoprolol Tartrate (Lopressor (Beta Mehran)) 5 mg IV Q6H PRN PRN PRN Reason: sustained tachycardia > 130 Metoprolol Tartrate (Lopressor (Beta Mehran)) 50 mg PO DAILY [facility] Last Admin: 05/31/20 10:47 Dose: 50 mg Documented by: Metoprolol Tartrate (Lopressor (Beta Mehran)) 100 mg PO QHS [facility] Last Admin: 05/30/20 21:53 Dose: 100 mg Documented by: Morphine Sulfate () 2 mg IV Q3H PRN PRN PRN Reason: Pain Score 6-10/10 Nutritional Formula (Lactose Free) (Ensure Clear) 120 ml PO 4X/DAY [facility] Last Admin: 05/31/20 13:38 Dose: Not Given Documented by: Nystatin (Nystatin) 500,000 unit PO 4X/DAY [facility] Last Admin: 05/31/20 13:38 Dose: 500,000 unit Documented by: Ondansetron HCl (Zofran) 4 mg IV Q8H PRN PRN PRN Reason: NAUSEA/VOMITING Oxycodone HCl (Oxyir) 5 mg PO Q4H PRN PRN PRN Reason: Pain Score 4-5/10 Last Admin: 05/30/20 21:53 Dose: 5 mg Documented by: Pentoxifylline (Trental) 400 mg PO DAILY [facility] Last Admin: 05/31/20 10:47 Dose: 400 mg Documented by: Potassium Chloride (K-Dur) 20 meq PO BIDCM [facility] Last Admin: 05/31/20 10:46 Dose: 20 meq Documented by: Sodium Chloride () 10 - 40 ml IV UD PRN PRN Reason: SALINE FLUSH Last Admin: 05/31/20 10:54 Dose: 10 ml Documented by: Throat Lozenges (Cepacol Sore Throat Lozenge) 1 lozenge MUCOUS MEM Q2H PRN PRN PRN Reason: SORE THROAT Vancomycin HCl () 125 mg PO Q6 [facility] Last Admin: 05/31/20 12:07 Dose: 125 mg Documented by: Discharge Diet: Low fat/ Low Cholesterol, 2000 mg Sodium Diet Discharge Activity: Return to Normal Activity Home Medications: Medications to take at Discharge Aspirin E.C. [Ecotrin] 81 mg PO QHS 11/28/19 Doxepin HCl [Sinequan] 10 mg PO QHS 11/28/19 Levothyroxine [Synthroid] 137 mcg PO QHS 11/28/19 Pentoxifylline [Trental] 400 mg PO DAILY 11/28/19 Simvastatin [Zocor] 40 mg PO QHS 11/28/19 Lactobacillus Acidophilus [Acidophilus] 2 tab PO BID 03/26/20 Metoprolol Tartrate 50 mg PO DAILY 03/26/20 Metoprolol Tartrate [Lopressor (beta mehran)] 100 mg PO QHS 03/26/20 cholecalciferol (vitamin D3) 25 mcg (1,000 unit) capsule 25 mcg PO DAILY 04/11/20 Collagenase [Santyl] 1 applic TOPICAL DAILY 05/27/20 Cefepime HCl [Maxipime] 2 gm IV Q12 40 Days #80 vial 05/30/20 Vancomcyin 125mg/5mL PO Liquid 125 mg PO Q6 #56 po.syringe 05/30/20 Vancomycin/0.9 % Sod Chloride [Vanco 1 Gram/250 ml-0.9% NaCl] 1 gm IV Q12H 40 Days #80 plast..bag 05/30/20 Acetaminophen [Tylenol Tablet] 650 mg PO Q6H PRN PRN tab 05/31/20 Ensure Clear 120 ml PO 4X/DAY #100 liquid 05/31/20 Following Prescrptions Were Given to Patient: Ensure Clear 120 ml PO 4X/DAY #100 liquid Transmission Status: Received by [id number] Cefepime HCl [Maxipime] 2 gm IV Q12 40 Days #80 vial Prescription Printed Vancomycin/0.9 % Sod Chloride [Vanco 1 Gram/250 ml-0.9% NaCl] 1 gm IV Q12H 40 Days #80 plast..bag Prescription Printed Vancomcyin 125mg/5mL PO Liquid 125 mg PO Q6 #56 po.syringe Prescription Printed Primary Care Physician: Boo Saunders MD [Primary Care Provider] - Please follow up with your Primary Care Physician in: within 1-2 weeks Please Follow Up With: Pola De La Cruz MD When: follow-up in 2 weeks Please Follow Up With: Abby Cooper DPM When: Follow-up on June 05 Disposition: Home Minutes spent on discharge:: 40 Patient Condition:: Stable Medical Necessity - Tobacco Use Smoking Status: Former smoker Tobacco Use: Non-smoker Meaningful Use Info Meaningful Use Diagnoses (Choose all that apply): None applicable Inpatient E&M: 96099 Disch Hosp
--- NOTE | 2020-05-31 15:28 | PCM.DC.POD ---
Discharge Diet: Low fat/ Low Cholesterol, 2000 mg Sodium Diet Discharge Activity: Return to Normal Activity Weight Bearing Status: - - Limit activity on left foot, keep foot elevated as much as possible. Call your doctor if your incision/area has: Continuous Slow Oozing, Sudden Increased Bleeding, Foul Smelling Discharge Call your doctor if you observe: Fever of 101 or Higher, Shortness of breath, Chest pain, Uncontrolled pain Cleanse incision/area with: Keep Dressing Clean & Dry - Keep left leg dressing clean, dry and intact until follow up visit with Dr. Cooper on 06/05/2020 at wound center. Please call Dr. Cooper at office or page through hospital if any strikethrough on dressing or any other issues. Allergies/Adverse Reactions: Allergies naproxen [From Naprosyn] Allergy (Verified 05/26/20 23:04) Rash Penicillins [PCN] Allergy (Verified 05/26/20 23:04) Rash amoxicillin Adverse Reaction (Verified 05/26/20 23:04) Rash cephalexin [From Keflex] Adverse Reaction (Verified 05/26/20 23:04) Rash clotrimazole [From Lotrimin] Adverse Reaction (Verified 05/26/20 23:04) Rash diphenhydramine [From Benadryl] Adverse Reaction (Verified 05/26/20 23:04) Rash griseofulvin Adverse Reaction (Verified 05/26/20 23:04) Rash ibuprofen [From Motrin] Adverse Reaction (Verified 05/26/20 23:04) Rash miconazole [From Monistat 1 Combo Pack] Adverse Reaction (Verified 05/26/20 23:04) Rash propranolol [From Inderal LA] Adverse Reaction (Verified 05/26/20 23:04) Rash rofecoxib [From Vioxx] Adverse Reaction (Verified 05/26/20 23:04) Rash Sulfa (Sulfonamide Antibiotics) Adverse Reaction (Verified 05/26/20 23:04) Rash Medications to take at Discharge Aspirin E.C. [Ecotrin] 81 mg PO QHS 11/28/19 Doxepin HCl [Sinequan] 10 mg PO QHS 11/28/19 Levothyroxine [Synthroid] 137 mcg PO QHS 11/28/19 Pentoxifylline [Trental] 400 mg PO DAILY 11/28/19 Simvastatin [Zocor] 40 mg PO QHS 11/28/19 Lactobacillus Acidophilus [Acidophilus] 2 tab PO BID 03/26/20 Metoprolol Tartrate 50 mg PO DAILY 03/26/20 Metoprolol Tartrate [Lopressor (beta stefany)] 100 mg PO QHS 03/26/20 cholecalciferol (vitamin D3) 25 mcg (1,000 unit) capsule 25 mcg PO DAILY 04/11/20 Collagenase [Santyl] 1 applic TOPICAL DAILY 05/27/20 Cefepime HCl [Maxipime] 2 gm IV Q12 40 Days #80 vial 05/30/20 Vancomcyin 125mg/5mL PO Liquid 125 mg PO Q6 #56 po.syringe 05/30/20 Vancomycin/0.9 % Sod Chloride [Vanco 1 Gram/250 ml-0.9% NaCl] 1 gm IV Q12H 40 Days #80 plast..bag 05/30/20 Acetaminophen [Tylenol Tablet] 650 mg PO Q6H PRN PRN tab 05/31/20 Ensure Clear 120 ml PO 4X/DAY #100 liquid 05/31/20 Oxycodone [Oxyir] 5 mg PO Q4H PRN PRN 5 Days #20 tab 05/31/20 The following prescriptions were given: Ensure Clear 120 ml PO 4X/DAY #100 liquid Transmission Status: Received by [id number] Cefepime HCl [Maxipime] 2 gm IV Q12 40 Days #80 vial Prescription Printed Oxycodone [Oxyir] 5 mg PO Q4H PRN PRN 5 Days #20 tab PRN Reason: Pain Score 4-5/10 Transmission Status: Received by [id number] Vancomycin/0.9 % Sod Chloride [Vanco 1 Gram/250 ml-0.9% NaCl] 1 gm IV Q12H 40 Days #80 plast..bag Prescription Printed Vancomcyin 125mg/5mL PO Liquid 125 mg PO Q6 #56 po.syringe Prescription Printed Primary Care Physician: Boo Saunders MD [Primary Care Provider] - Please follow up with your Primary Care Physician in: within 1-2 weeks Test Results: Test results from this visit will be discussed in further detail at your follow-up appointment, if applicable. Please Follow Up With: Pola De La Cruz MD When: follow-up in 2 weeks Please Follow Up With: Abby Cooper DPM - Please call Dr. Cooper at office or page through hospital if any strikethrough on dressing or any other issues. When: Follow-up on June 05 Proposed Discharge Date: 05/31/20
--- NOTE | 2020-05-31 15:49 | PCM.PN.ID ---
Patient Problems: Active and Suspected Problems (Last Reviewed 04/11/20 @ 14:[address] Yefri Rubio MD) Acute diarrhea (Acute) Hypokalemia (Acute) Cellulitis (Acute) Osteomyelitis of left fibula (Suspected) Subjective: Feeling better, no fever, mild diarrhea today. - Physical Exam Vitals/I&O's: Vital Signs Temp Pulse Resp BP Pulse Ox 97.6 F L 102 H 16 153/75 H 92 05/31/20 10:40 05/31/20 10:47 05/31/20 10:40 05/31/20 10:40 05/31/20 10:40 Oxygen Flow Rate (L/min) 1 Oxygen Delivery Method Room Air Weight: 60.2 kg Body Mass Index (BMI) 26.8 Intake and Output for Last 24 Hours 05/29/20 05/30/20 05/31/20 23:59 23:59 23:59 Intake Total 2591.67 / 2591.67 1976. / 1976. 700 / 700 Balance 2591.67 / 2591.67 700 / 700 General: Alert, Cooperative, No apparent distress Lungs: Clear to auscultation, Normal air movement Cardiovascular: Regular rate, Regular Rhythm Abdomen: Soft, Non Tender, Non-Distended Skin: Ulcer/ Wound - leg wrapped Microbiology Past 72 Hours 05/29/20 Unknown Bone - Leg, Left Gram Stain - Final 05/29/20 Unknown Bone - Leg, Left Wound Culture - Preliminary Gram positive anna Streptococcus group B 05/29/20 Unknown Bone - Leg, Left Anaerobic Culture - Preliminary Checking for anaerobes, further studies to follow. 05/27/20 01:50 Wound - Leg, Left Gram Stain - Final 05/27/20 01:50 Wound - Leg, Left Wound Culture - Final Streptococcus agalactiae (B) Corynebacterium striatum 05/27/20 00:00 Blood Culture (Wb) - Right Hand Blood Culture - Preliminary No growth in 48 hours. 05/26/20 23:14 Blood Culture (Wb) - Anticubital Left Blood Culture - Preliminary No growth in 48 hours. Laboratory Results 05/31/20 08:04: WBC 6.8, RBC 3.93 L, Hgb 11.1 L, Hct 35.2 L, MCV 89.6, MCH 28.2, MCHC 31.5 L, RDW Std Deviation 46.4 H, RDW Coeff of Naseem 14.3, Plt Count 259, MPV 8.8, Immature Gran % (Auto) 0.700, Neut % (Auto) 37.3 L, Lymph % (Auto) 37.9, [place] % (Auto) 9.5, Eos % (Auto) 13.9 H, Baso % (Auto) 0.7, Absolute Neuts (auto) 2.5, Absolute Lymphs (auto) 2.59, Nucleated RBC % 0 05/31/20 08:04: Sodium 140, Potassium 4.1, Chloride 108 H, Carbon Dioxide 31.0, Anion Gap 1 L, BUN 5 L, Creatinine 0.42 L, Estim Creat Clear Calc 49.04, Est GFR (MDRD) Af Amer 189, Est GFR (MDRD) Non-Af 156, BUN/Creatinine Ratio 11.8, Glucose 91, Calcium 8.5, Total Bilirubin 0.30, AST 13 L, ALT 13, Alkaline Phosphatase 84, Total Protein 6.3 L, Albumin 2.6 L, Globulin 3.7, Albumin/Globulin Ratio 0.7 L Current Medications Acetaminophen (Tylenol) 650 mg PO Q6H PRN PRN PRN Reason: Pain Score 1-10/Temp > 100.7 F Al Hydroxide/Mg Hydroxide (Mylanta Ii) 30 ml PO Q6H PRN PRN PRN Reason: Gastric Burning Albuterol Sulfate (Ventolin Aerosols) 2.5 mg INHALATION Q2H PRN PRN PRN Reason: Dyspnea, wheezing Aspirin (Ecotrin) 81 mg PO QHS [facility] Last Admin: 05/30/20 21:16 Dose: 81 mg Documented by: Atorvastatin Calcium (Lipitor) 20 mg PO QHS [facility] Last Admin: 05/30/20 21:16 Dose: 20 mg Documented by: Calamine/Phenol (Calmoseptine Ointment) 1 applic TOPICAL TID [facility]; Protocol Last Admin: 05/31/20 13:39 Dose: Not Given Documented by: Collagenase (Santyl) 1 applic TOPICAL DAILY [facility]; Protocol Last Admin: 05/31/20 10:47 Dose: Not Given Documented by: Dextrose (D50w Syringe) 0 gm IV X1 PRN; Protocol PRN Reason: Hypoglycemia Doxepin HCl (Sinequan) 10 mg PO QHS [facility] Last Admin: 05/30/20 21:19 Dose: 10 mg Documented by: Enoxaparin Sodium (Lovenox) 40 mg SC DAILY [facility] Last Admin: 05/31/20 10:48 Dose: 40 mg Documented by: Glucagon () 1 mg IM .X1 PRN PRN Reason: Hypoglycemia Guaifenesin (Robitussin) 20 ml PO Q4H PRN PRN PRN Reason: COUGH Hydralazine HCl (Apresoline Iv) 10 mg IV Q4H PRN PRN PRN Reason: SBP > 160 Sodium Chloride () 250 mls @ 15 mls/hr IV .[id number] PRN PRN Reason: Saline Flush Sodium Chloride () 250 mls @ 15 mls/hr IV .[id number] PRN PRN Reason: Additional IVPB Infusion Vancomycin IV Pharmacy to Dose (1 ea/ Sodium Chloride) 500 mls @ 250 mls/hr IV X1 PRN; Protocol PRN Reason: Rx to Dose Cefepime HCl 2 gm/ Sodium (Chloride) 100 mls @ 200 mls/hr IV Q12 [facility] Last Infusion: 05/31/20 12:11 Dose: Infused Documented by: Vancomycin HCl (Vancomycin) 1,000 mg in 200 mls @ 200 mls/hr IV Q12H [facility] Last Infusion: 05/31/20 13:40 Dose: Infused Documented by: Lactobacillus Acidophilus (Acidophilus) 1 tablet PO BID [facility] Last Admin: 05/31/20 10:47 Dose: 1 tablet Documented by: Levothyroxine Sodium (Synthroid) 137 mcg PO QHS [facility] Last Admin: 05/30/20 21:19 Dose: 137 mcg Documented by: Melatonin (Melatonin) 3 mg PO QHS PRN PRN PRN Reason: INSOMNIA Last Admin: 05/29/20 21:25 Dose: 3 mg Documented by: Metoprolol Tartrate (Lopressor (Beta Mehran)) 5 mg IV Q6H PRN PRN PRN Reason: sustained tachycardia > 130 Metoprolol Tartrate (Lopressor (Beta Mehran)) 50 mg PO DAILY [facility] Last Admin: 05/31/20 10:47 Dose: 50 mg Documented by: Metoprolol Tartrate (Lopressor (Beta Mehran)) 100 mg PO QHS [facility] Last Admin: 05/30/20 21:53 Dose: 100 mg Documented by: Morphine Sulfate () 2 mg IV Q3H PRN PRN PRN Reason: Pain Score 6-10/10 Nutritional Formula (Lactose Free) (Ensure Clear) 120 ml PO 4X/DAY [facility] Last Admin: 05/31/20 13:38 Dose: Not Given Documented by: Nystatin (Nystatin) 500,000 unit PO 4X/DAY [facility] Last Admin: 05/31/20 13:38 Dose: 500,000 unit Documented by: Ondansetron HCl (Zofran) 4 mg IV Q8H PRN PRN PRN Reason: NAUSEA/VOMITING Oxycodone HCl (Oxyir) 5 mg PO Q4H PRN PRN PRN Reason: Pain Score 4-5/10 Last Admin: 05/30/20 21:53 Dose: 5 mg Documented by: Pentoxifylline (Trental) 400 mg PO DAILY [facility] Last Admin: 05/31/20 10:47 Dose: 400 mg Documented by: Potassium Chloride (K-Dur) 20 meq PO BIDCM [facility] Last Admin: 05/31/20 10:46 Dose: 20 meq Documented by: Sodium Chloride () 10 - 40 ml IV UD PRN PRN Reason: SALINE FLUSH Last Admin: 05/31/20 10:54 Dose: 10 ml Documented by: Throat Lozenges (Cepacol Sore Throat Lozenge) 1 lozenge MUCOUS MEM Q2H PRN PRN PRN Reason: SORE THROAT Vancomycin HCl () 125 mg PO Q6 [facility] Last Admin: 05/31/20 12:07 Dose: 125 mg Documented by: Medical Necessity - Tobacco Use Smoking Status: Former smoker Tobacco Use: Non-smoker Route of nutrition/ use of supplements: [] Nutritional Intake: [] IV Site: [] [place] Catheter: [] - Assessment/Plan Antibiotics: [] Assessment/Plan: [] Active and Suspected Problems (Last Reviewed 04/11/20 @ 14:[address] Yefri Rubio MD) Acute diarrhea (Acute) Hypokalemia (Acute) Cellulitis (Acute) L [place] infected ulcer - most recent cxs with pseudomonas. Cx here with corynebacteria, GBS. Cont cefepime for empiric PsA coverage. Now s/p OR. Surg cx also showing GPR and strep. Plan on 6 week iv vanc/cefepime, stop date 07/08, weekly labs. ID followup in 2 weeks. 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 Plan on long taper. Will follow
--- NOTE | 2020-06-03 13:54 | CASEMGMT ---
ELEUTERIO DC PHONE CALL DC DATE: 05/31/2020 DC DISPOSITION: Home with [facility] DC DIAGNOSIS: Diarrhea, hypokalemia, Cellulitis LACE/STRATA: 15/4 F/U APPTS MADE PRIOR TO DC: pt requested to make own appointments Call deferred. Patient home with [facility]. Dylan FUENTES RN [facility]
== END 2020-05-31 16:33 | disposition home health service (06) | DRG 571 ==
LOC: ED 23:31 → PCU 05-27 00:53
PROVIDERS: Anesthesiology; Podiatrist; Admitting Provider Family Medicine; Emergency Provider Emergency Medicine; Referring Provider Family Medicine; Visit Provider Internal Medicine
PROC: 0QBK0ZX Excision of Left Fibula, Open Approach, Diagnostic (ICD-10-PCS; principal; 2020-05-29 07:15)
DX: L03.116 Cellulitis of left lower limb (principal); M86.662 Other chronic osteomyelitis, left tibia and fibula; L97.822 Non-pressure chronic ulcer of other part of left lower leg with fat layer exposed; A04.71 Enterocolitis due to Clostridium difficile, recurrent; E87.6 Hypokalemia; I10 Essential (primary) hypertension; E78.5 Hyperlipidemia, unspecified; Z87.891 Personal history of nicotine dependence; I73.9 Peripheral vascular disease, unspecified; R00.0 Tachycardia, unspecified; E03.9 Hypothyroidism, unspecified; I87.2 Venous insufficiency (chronic) (peripheral); G14 Postpolio syndrome; B95.1 Streptococcus, group B, as the cause of diseases classified elsewhere; B96.89 Other specified bacterial agents as the cause of diseases classified elsewhere
CPT/HCPCS: 36415; 36569; 73590; 73718; 76000; 80048; 80053; 80202; 83605; 83735; 84443; 85025; 87015; 87040; 87070; 87075; 87077; 87102; 87116; 87186; 87205; 87206; 87493; 87506; 87635; 87640; 88304; 88305; 88311; 93005; 97110; 97162; 97166; 97530; 99251; 99285; G2023; J7030; J7050; A4216; G0463; J0696; J2405; U0003

== ENCOUNTER 2020-06-05 15:30 | Outpatient (RCR) | payer MEDICARE, OTHER, SELFPAY ==
[2020-05-08 00:24] VITALS: BP 126/72; PULSE 108; RESP 16; TEMP 37.4; BMI 26.2
[2020-05-08 13:09] VITALS: BP 133/63; PULSE 109; RESP 16; TEMP 36.3; BMI 26.2
--- NOTE | 2020-05-08 16:27 | PCM.WC.PN ---
(1) Delayed wound healing Status: Chronic Current Visit: Yes Code(s): T14.8XXD - Other injury of unspecified body region, subsequent encounter (2) Pseudomonas aeruginosa colonization Status: Acute Current Visit: Yes Code(s): Z22.39 - Carrier of other specified bacterial diseases (3) Ulcer of left lower extremity with fat layer exposed Status: Chronic Current Visit: Yes Code(s): L97.922 - Non-pressure chronic ulcer of unspecified part of left lower leg with fat layer exposed (4) Venous insufficiency Status: Chronic Current Visit: Yes Code(s): I87.2 - Venous insufficiency (chronic) (peripheral) Comment: left Greater saphenous vein (5) Other specified peripheral vascular diseases Status: Chronic Current Visit: Yes Code(s): I73.89 - Other specified peripheral vascular diseases Comment: bilateral lower extremity (6) Left leg pain Status: Chronic Current Visit: Yes Code(s): M79.605 - Pain in left leg (7) Leg edema, left Status: Chronic Current Visit: Yes Code(s): R60.0 - Localized edema (8) Colonization status Status: Acute Current Visit: Yes Code(s): Z22.9 - Carrier of infectious disease, unspecified Type of Wound Date of Service: 05/08/20 Chief Complaint: Left leg ulcer History of Wound: This 69-year-old female with significant past medical history of polio with several medical sequela sustained a left leg ulcer that dates back to 2016. She has been performing dressing care as advised. She denies redness or odor. She continues to change the dressing with Dakin's solution as advised last week. She has continued pain with dressing changes and applies Aquaphor around the margin of the wound and uses Adaptic to reduce some of this discomfort. She also uses tramadol for intermittent use for pain control. She tries to elevate and uses an Candelario wrap. She was previously seen vascular surgery. She recently went for early follow-up and was advised intervention will only be considered after her infection is completely cleared up. She was advised to follow-up in 4 to 6 weeks. She is also seen by infectious disease and was treated for Pseudomonas recurrent bacterial contamination and also oral vancomycin due to her history of C. difficile. She reports she is basically unable to tolerate compression dressings and is frustrated with her ongoing leg swelling. The patient and her daughter are frustrated again today. Progress of Wound: Stable with delayed healing noted - Physical Exam Vital Signs Temp Pulse Resp BP 97.3 F L 109 H 16 133/63 H 05/08/20 13:09 05/08/20 13:09 05/08/20 13:09 05/08/20 13:09 General: Alert, Oriented x3, Cooperative, No apparent distress Extremities: No cyanosis, Capillary Refill Less than 3 Seconds, No Calf Tenderness, Diminished Peripheral Pulses, Edema, Tenderness - Pain with ulcer and leg epicritic touch Skin: Ulcer/ Wound - There is no purulence on expression, erythema, streaking or odor. There is continued serosanguineous drainage. The skin is atrophic with hyperpigmentation and ongoing edema. There are no deeper structures noted, necrosis, eschar, or maceration. Wound Measurements and Assessment WC - Nurse 1 - General Ulcer Measurement Start: 05/08/20 13:09 Freq: Status: Active Protocol: Activity Type Activity Date Activity User E-Sign Co-Sign Detail Recorded Client Recorded Date Recorded By Document 05/08/20 13:09 MW [id number] 05/08/20 13:16 MW 05/08/20 13:09 Wound Center Nurse 1 [Ulcer Assessment] #2 LLE medial -Combined with other wound No -Current Size (cm) - Length 1.5 -Current Size (cm) - Width 2.0 -Current Size (cm) - Depth 0.1 -Total Square Cm 3.00 -Photo Taken No -Epithelialization None Present -Tunneling No -Undermining/Tunneling No -Circular Undermining No -Exudate Amt Medium -Exudate Type Serosanguineous -Wound Margin Flat & Intact -Granulation Amt Small (1-33%) -Granulation Quality Monument -Slough/Fibrin Yes -Necrosis Amt Large (67-100%) -Structure Exposed N/A -Texture (Susana-wound Skin Appearance) Assessed, Localized Edema ,Scarring -Moisture (Susana-wound Skin Appearance Assessed, ) Maceration -Color (Susana-wound Skin Appearance) Rubor -Temperature (Susana-wound Skin No Abnormality Appearance) (Pt Warm) -Tenderness on Palpation (Susana-wound Yes Skin Appearance) -Ulcer Cleansing soap and water -Foul Odor after Cleansing No -Anesthetic Used 4% Lidocaine Solution,5% Lidocaine Gel #1 LLE -Combined with other wound No -Current Size (cm) - Length 7.2 -Current Size (cm) - Width 5.7 -Current Size (cm) - Depth 0.3 -Total Square Cm 41.04 -Photo Taken No -Epithelialization None Present -Tunneling No -Undermining/Tunneling No -Circular Undermining No -Exudate Amt Medium -Exudate Type Serosanguineous -Wound Margin Flat & Intact -Granulation Amt Small (1-33%) -Granulation Quality Monument -Slough/Fibrin Yes -Necrosis Amt Large (67-100%) -Necrotic Tissue Type Adherent Slough -Structure Exposed N/A -Texture (Susana-wound Skin Appearance) Assessed, Localized Edema ,Scarring -Moisture (Susana-wound Skin Appearance Assessed, ) Maceration -Color (Susana-wound Skin Appearance) Assessed -Temperature (Susana-wound Skin No Abnormality Appearance) (Pt Warm) -Tenderness on Palpation (Susana-wound Yes Skin Appearance) -Ulcer Cleansing soap and water -Foul Odor after Cleansing No -Anesthetic Used 4% Lidocaine Solution,5% Lidocaine Gel [Edema Assessment] -Lower Limb Edema Present Yes -Left Calf (cm) 34.5 -Left Ankle (cm) 22.3 WC - Nurse 2 - General Ulcer CM Notes Start: 05/08/20 13:09 Freq: Status: Active Protocol: Activity Type Activity Date Activity User E-Sign Co-Sign Detail Recorded Client Recorded Date Recorded By Document 05/08/20 13:24 JF [id number] 05/08/20 13:31 JF 05/08/20 13:24 Wound Center Nurse 2 [Procedure/Treatment] #2 LLE medial -Time 13:25 -Correct Patient Yes -Correct Side, Site, Position Yes -Correct Procedure Yes -Procedure Performed Yes -Type of Procedure Debridement -Clinical Debridement Selective -Post Debridement Size (cm) - Length 1.5 -Post Debridement Size (cm) - Width 2 -Post Debridement Size (cm) - Depth 0.1 -Total Square Cm 3.0 -Wound/Ulcer Outcome Not Healed -Ulcer Cleansing Rinsed/ Irrigated with Saline -Foul Odor after Cleansing No -Bioengineered Tissue No -Bleeding Controlled with Pressure -Offloading No -Treatment Response Procedure Tolerated Well #1 LLE -Time 13:25 -Correct Patient Yes -Correct Side, Site, Position Yes -Correct Procedure Yes -Procedure Performed Yes -Type of Procedure Debridement -Clinical Debridement Selective -Post Debridement Size (cm) - Length 7.2 -Post Debridement Size (cm) - Width 5.7 -Post Debridement Size (cm) - Depth 0.3 -Total Square Cm 41.04 -Wound/Ulcer Outcome Not Healed -Ulcer Cleansing Rinsed/ Irrigated with Saline -Foul Odor after Cleansing No -Bioengineered Tissue No -Bleeding Controlled with Pressure -Offloading No -Treatment Response Procedure Tolerated Well [See Physician Procedure note for Specifics] Pain Scale: 0-10 Numeric [Pain] -Is Patient Pain Free? 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 Compartments remain soft to palpate and there are no blisters, bogginess or fluctuance Neurological: Sensory exam intact to light touch and pain - Hypersensitivity to touch Psych/Mental Status: Normal Affect, Appropriate Debridement Note Post-Debridement Measurements/Treatment WC - Nurse 2 - General Ulcer CM Notes Start: 05/08/20 13:09 Freq: Status: Active Protocol: Activity Type Activity Date Activity User E-Sign Co-Sign Detail Recorded Client Recorded Date Recorded By Document 05/08/20 13:24 JF [id number] 05/08/20 13:31 JF 05/08/20 13:24 Wound Center Nurse 2 #2 LLE medial -Time 13:25 -Correct Patient Yes -Correct Side, Site, Position Yes -Correct Procedure Yes -Procedure Performed Yes -Type of Procedure Debridement -Clinical Debridement Selective -Post Debridement Size (cm) - Length 1.5 -Post Debridement Size (cm) - Width 2 -Post Debridement Size (cm) - Depth 0.1 -Total Square Cm 3.0 -Wound/Ulcer Outcome Not Healed -Ulcer Cleansing Rinsed/ Irrigated with Saline -Foul Odor after Cleansing No -Bioengineered Tissue No -Bleeding Controlled with Pressure -Offloading No -Treatment Response Procedure Tolerated Well #1 LLE -Time 13:25 -Correct Patient Yes -Correct Side, Site, Position Yes -Correct Procedure Yes -Procedure Performed Yes -Type of Procedure Debridement -Clinical Debridement Selective -Post Debridement Size (cm) - Length 7.2 -Post Debridement Size (cm) - Width 5.7 -Post Debridement Size (cm) - Depth 0.3 -Total Square Cm 41.04 -Wound/Ulcer Outcome Not Healed -Ulcer Cleansing Rinsed/ Irrigated with Saline -Foul Odor after Cleansing No -Bioengineered Tissue No -Bleeding Controlled with Pressure -Offloading No -Treatment Response Procedure Tolerated Well Pain Scale: 0-10 Numeric Is Patient Pain Free? Yes Wound debrided: leg Laterality: Left Type of Debridement: Selective debridement Anesthesia Used: 5% Lidocaine Gel Depth: Down to and including healthy tissue Percentage of wound debrided: 100 Instrument Used: #15 blade Tissue Removed: fibrous, devitalized subcutaneous, biofilm, slough Severity: Limited To Skin Breakdown Amount of bleeding with debridement: Mild Bleeding Controlled with: Pressure Patient tolerated procedure well Assessment/Plan Active Problems (Last Reviewed 04/11/20 @ 14:[address] Yefri Rubio MD) Pseudomonas aeruginosa colonization (Acute) Ulcer of left lower extremity with fat layer exposed (Chronic) Delayed wound healing (Chronic) Venous insufficiency (Chronic) left Greater saphenous vein Other specified peripheral vascular diseases (Chronic) bilateral lower extremity Left leg pain (Chronic) Leg edema, left (Chronic) Colonization status (Acute) Assessment: Left leg ulcer with fat layer /partial fascial layer exposed, lack of local infection signs. Anterior medial leg, left -no infection. bacterial colonization with Pseudomonas treated with antibiotics under infectious disease management. Leg edema. Venous insufficiency. Peripheral vascular disease. Delayed healing. Malnutrition suspected. C-diff history Plan: I reviewed and discussed her case today. Debridement was performed today as noted in the clinical panel. She was informed there are no overt signs of local or systemic signs of infection. It is noticed that she does have Pseudomonas contamination and colonization. She was seen by infectious disease today and was started on an oral antibiotic regimen and this is appreciated. She was advised to complete the oral antibiotic course as prescribed. She did not have a designated follow-up with infectious disease and was advised to follow-up if needed. She appears to be improving and is stable. She will continue with Dakin wet-to-dry dressing solution into her dressing management to also address any contamination given her increased leg weeping she reports. It is okay for her to continue use adaptic and Aquaphor peripherally to make the dressing changes more comfortable. Upon improvement of the quality of the wound bed, application of advanced wound healing product, epi-fix will be considered at future visit. I do not recommend it until this Pseudomonas contamination clears up and we can feel confident to leave the dressing in place for an entire week. Her daughter admits while washing the leg during each wound dressing change she has not actually been making contact with the leg. She simply dripped some water and soap on the leg due to this being painful. I recommended gently wiping it mechanically with a clean washcloth and antibacterial soap. This would significantly do a better job of removing the Pseudomonas contamination to prevent this cycle from reoccurring. I recommend she proceed with work-up for both arterial and venous disease. Venous reflux evaluation test was ordered. She was advised to avoid idle sitting and standing and to elevate the limb to control edema. If she has continued pain particularly with leg elevation, I recommend she intermittently dangles the leg as well. She seems to do well while she is resting in the hospital and she is able to elevate. She admits she is not able to do this recommendation. She was reminded that she will likely not progress in a meaningful manner if she is not able to get some of the swelling down. This is up to her to be accountable while she is at home. Fully controlling the edema is a challenge at home. I also recommend she proceeds with noninvasive arterial study. This was performed and she has already completed the additional recommended tests by vascular surgery. I reviewed Dr. Morel's plan and documentation. She additionally had an updated test performed and intervention is not recommended at this time from an arterial standpoint. Due to her overall lack of progress I recommend she returns early to see if intervention is possible. She did attend and Dr. Morel advised her to return in 4 to 6 weeks. I would also like to request a note to confirm the plan. She understands any considered intervention is definitely not recommended while she has any type of infection or bacterial contamination. She does also have significant bilateral lower extremity monophasic waveforms with ABIs of around 0.5 bilaterally. her prealbumin was 19.8 and proper nutrition and supplementation was reviewed. To proceed with a proper control diet and nutrition supplementation to optimize healing. I answered all of her questions and explained the etiology of ulcer causes and the comprehensive wound healing plan. She understands she is not a candidate for current outpatient hyperbaric oxygen therapy due to the current local determinate coverage approved diagnoses. A second opinion at this time was also offered and is highly recommended. She defers at this time. Amputation also remains a treatment option and this will be further discussed at her follow-up. She was advised to return to clinic in 1 week. . 2019 quality measures reviewed as the following: medication and allergy reconciliation was performed. Reviewed 12-27-2019: She denies falling this past year. Reviewed 11/15/2019-pneumonia vaccination was confirmed, influenza immunization was confirmed for this current season in July 2019, advanced care plan was confirmed with living will, she is a current tobacco non user, her blood pressure is elevated over 120/80 and I recommend she follows up with her primary care physician for medical management of this. Diet and exercise benefits were also discussed for educational purposes to optimize her wound healing and medical management.
[2020-05-15 14:13] VITALS: BP 127/54; PULSE 88; RESP 18; TEMP 36.9; BMI 26.2
--- NOTE | 2020-05-15 16:21 | WC ---
pt daughter assisted with pt dressing being applied
--- NOTE | 2020-05-15 16:36 | PN.PCM_ITS ---
(1) Delayed wound healing Status: Chronic Code(s): T14.8XXD - Other injury of unspecified body region, subsequent encounter (2) Pseudomonas aeruginosa colonization Status: Acute Code(s): Z22.39 - Carrier of other specified bacterial diseases (3) Ulcer of left lower extremity with fat layer exposed Status: Chronic Code(s): L97.922 - Non-pressure chronic ulcer of unspecified part of left lower leg with fat layer exposed (4) Venous insufficiency Status: Chronic Code(s): I87.2 - Venous insufficiency (chronic) (peripheral) Comment: left Greater saphenous vein (5) Other specified peripheral vascular diseases Status: Chronic Code(s): I73.89 - Other specified peripheral vascular diseases Comment: bilateral lower extremity (6) Left leg pain Status: Chronic Code(s): M79.605 - Pain in left leg (7) Leg edema, left Status: Chronic Code(s): R60.0 - Localized edema (8) Colonization status Status: Acute Code(s): Z22.9 - Carrier of infectious disease, unspecified Type of Wound Date of Service: 05/15/20 Chief Complaint: Left leg ulcer History of Wound: This 69-year-old female with significant past medical history of polio with several medical sequela sustained a left leg ulcer that dates back to 2016. She has been performing dressing care as advised. She denies redness or odor. She continues to change the dressing with Dakin's solution as advised last week. She has continued pain with dressing changes and applies Aquaphor around the margin of the wound and uses Adaptic to reduce some of this discomfort. She also uses tramadol for intermittent use for pain control. She tries to elevate and uses an Candelario wrap. She was previously seen vascular surgery. She recently went for early follow-up and was advised intervention will only be considered after her infection is completely cleared up. She was advised to follow-up in 4 to 6 weeks. She is also seen by infectious disease an d was treated for Pseudomonas recurrent bacterial contamination and also oral vancomycin due to her history of C. difficile. She reports she is basically unable to tolerate compression dressings and is frustrated with her ongoing leg swelling. They also admit that they are previously not washing or wiping the leg during the cleansing process due to pain. They were more so just dribbling the water over the limb. This was addressed last week and may try to perform more appropriate wound washing I am making contact with the towel on the leg and that has improved the appearance of the ulcer. Progress of Wound: Stable with delayed healing noted - Physical Exam Vital Signs Temp Pulse Resp BP 98.5 F 88 18 127/54 H 05/15/20 14:13 05/15/20 14:13 05/15/20 14:13 05/15/20 14:13 General: Alert, Oriented x3, Cooperative, No apparent distress Extremities: No cyanosis, Capillary Refill Less than 3 Seconds, No Calf Tenderness, Diminished Peripheral Pulses, Edema Skin: Ulcer/ Wound - No purulence or erythema, or streaking. There is less biofilm visualized. there is slight increase in fibrous tissue build up to the main anterior leg wound site. there is scattered island epithelialization to the medial and lateral satellite lesion sites. the adjacent skin is hairless and atrophic Wound Measurements and Assessment WC - Nurse 1 - General Ulcer Measurement Start: 05/08/20 13:09 Freq: Status: Active Protocol: Activity Type Activity Date Activity User E-Sign Co-Sign Detail Recorded Client Recorded Date Recorded By Document 05/15/20 14:13 RB [id number] 05/15/20 14:27 RB 05/15/20 14:13 Wound Center Nurse 1 [Ulcer Assessment] #2 LLE medial -Combined with other wound No -Current Size (cm) - Length 6 -Current Size (cm) - Width 3 -Current Size (cm) - Depth 0.1 -Total Square Cm 18 -Tunneling No -Undermining/Tunneling No -Circular Undermining No -Exudate Amt Medium -Exudate Type Serosanguineous -Wound Margin Flat & Intact -Granulation Amt Medium (34-66%) -Granulation Quality [place] -Slough/Fibrin Yes -Necrosis Amt Medium (34-66%) -Necrotic Tissue Type Adherent Slough -Structure Exposed N/A -Texture (Susana-wound Skin Appearance) Assessed, Excoriation -Moisture (Susana-wound Skin Appearance Assessed ) -Color (Susana-wound Skin Appearance) Assessed -Temperature (Susana-wound Skin No Abnormality Appearance) (Pt Warm) -Tenderness on Palpation (Susana-wound No Skin Appearance) -Ulcer Cleansing Wound Cleanser -Foul Odor after Cleansing No -Anesthetic Used 4% Lidocaine Solution,5% Lidocaine Gel #1 LLE -Combined with other wound No -Current Size (cm) - Length 7.4 -Current Size (cm) - Width 5.2 -Current Size (cm) - Depth 0.1 -Total Square Cm 38.48 -Tunneling No -Undermining/Tunneling No -Circular Undermining No -Exudate Amt Medium -Exudate Type Serosanguineous -Wound Margin Flat & Intact -Granulation Amt Medium (34-66%) -Granulation Quality [place] -Slough/Fibrin Yes -Necrosis Amt Medium (34-66%) -Necrotic Tissue Type Adherent Slough -Structure Exposed N/A -Texture (Susana-wound Skin Appearance) Excoriation -Moisture (Susana-wound Skin Appearance Maceration ) -Color (Susana-wound Skin Appearance) Assessed -Temperature (Susana-wound Skin No Abnormality Appearance) (Pt Warm) -Tenderness on Palpation (Susana-wound No Skin Appearance) -Ulcer Cleansing Wound Cleanser -Foul Odor after Cleansing No -Anesthetic Used 4% Lidocaine Solution,5% Lidocaine Gel [Edema Assessment] -Lower Limb Edema Present Yes -Left Calf (cm) 33 -Left Ankle (cm) 21 WC - Nurse 2 - General Ulcer CM Notes Start: 05/08/20 13:09 Freq: Status: Active Protocol: Activity Type Activity Date Activity User E-Sign Co-Sign Detail Recorded Client Recorded Date Recorded By Document 05/15/20 15:03 MW [id number] 05/15/20 15:19 MW 05/15/20 15:03 Wound Center Nurse 2 [Procedure/Treatment] #2 LLE medial -Time 15:04 -Correct Patient Yes -Correct Side, Site, Position Yes -Correct Procedure Yes -Procedure Performed Yes -Type of Procedure Debridement -Clinical Debridement Subcutaneous -Post Debridement Size (cm) - Length 6.0 -Post Debridement Size (cm) - Width 3.0 -Post Debridement Size (cm) - Depth 0.1 -Total Square Cm 18.00 -Wound/Ulcer Outcome Not Healed -Ulcer Cleansing Rinsed/ Irrigated with Saline -Foul Odor after Cleansing No -Bioengineered Tissue Yes -Type of bioengineered Tissue EPIFIX -Expiration Date 01/06/25 -Product Lot Number [id number] -Percent Used 100 -Saline Lot Number [id number] -Bleeding Controlled with Pressure -Offloading No -Treatment Response Procedure Tolerated Well #1 LLE -Time 15:04 -Correct Patient Yes -Correct Side, Site, Position Yes -Correct Procedure Yes -Procedure Performed Yes -Type of Procedure Debridement -Clinical Debridement Subcutaneous -Post Debridement Size (cm) - Length 7.4 -Post Debridement Size (cm) - Width 5.2 -Post Debridement Size (cm) - Depth 0.1 -Total Square Cm 38.48 -Wound/Ulcer Outcome Not Healed -Ulcer Cleansing Rinsed/ Irrigated with Saline -Foul Odor after Cleansing No -Bioengineered Tissue No -Bleeding Controlled with Pressure -Offloading No -Treatment Response Procedure Tolerated Well [See Physician Procedure note for Specifics] Pain Scale: 0-10 Numeric [Pain] -Is Patient Pain Free? Yes Musculoskeletal: No Tenderness to Palpation of Joints or Extremities, Muscle Wasting, - - Left lower extremity weakness consistent with prior exams and her post polio syndrome condition Neurological: Sensory exam intact to light touch and pain Psych/Mental Status: Normal Affect, Appropriate Debridement Note Post-Debridement Measurements/Treatment WC - Nurse 2 - General Ulcer CM Notes Start: 05/08/20 13:09 Freq: Status: Active Protocol: Activity Type Activity Date Activity User E-Sign Co-Sign Detail Recorded Client Recorded Date Recorded By Document 05/08/20 13:24 [id number] 05/08/20 13:31 Document 05/15/20 15:03 MW [id number] 05/15/20 15:19 MW 05/08/20 05/15/20 13:24 15:03 Wound Center Nurse 2 #2 LLE medial -Time 13:25 15:04 -Correct Patient Yes Yes -Correct Side, Site, Position Yes Yes -Correct Procedure Yes Yes -Procedure Performed Yes Yes -Type of Procedure Debridement Debridement -Clinical Debridement Selective Subcutaneous -Post Debridement Size (cm) - Length 1.5 6.0 -Post Debridement Size (cm) - Width 2 3.0 -Post Debridement Size (cm) - Depth 0.1 0.1 -Total Square Cm 3.0 18.00 -Wound/Ulcer Outcome Not Healed Not Healed -Ulcer Cleansing Rinsed/ Rinsed/ Irrigated with Irrigated with Saline Saline -Foul Odor after Cleansing No No -Bioengineered Tissue No Yes -Type of bioengineered Tissue EPIFIX -Expiration Date 01/06/25 -Product Lot Number [id number] -Percent Used 100 -Saline Lot Number [id number] -Bleeding Controlled with Pressure Pressure -Offloading No No -Treatment Response Procedure Procedure Tolerated Well Tolerated Well #1 LLE -Time 13:25 15:04 -Correct Patient Yes Yes -Correct Side, Site, Position Yes Yes -Correct Procedure Yes Yes -Procedure Performed Yes Yes -Type of Procedure Debridement Debridement -Clinical Debridement Selective Subcutaneous -Post Debridement Size (cm) - Length 7.2 7.4 -Post Debridement Size (cm) - Width 5.7 5.2 -Post Debridement Size (cm) - Depth 0.3 0.1 -Total Square Cm 41.04 38.48 -Wound/Ulcer Outcome Not Healed Not Healed -Ulcer Cleansing Rinsed/ Rinsed/ Irrigated with Irrigated with Saline Saline -Foul Odor after Cleansing No No -Bioengineered Tissue No No -Bleeding Controlled with Pressure Pressure -Offloading No No -Treatment Response Procedure Procedure Tolerated Well Tolerated Well Pain Scale: 0-10 Numeric Is Patient Pain Free? Yes Yes Wound debrided: leg main site and also medial and lateral satellite lesion sites Laterality: Left Type of Debridement: Excisional debridement Anesthesia Used: 5% Lidocaine Gel Depth: in the subcutaneous layer Percentage of wound debrided: 100 Instrument Used: #15 blade Tissue Removed: fibrous, devitalized subcutaneous, biofilm, slough Severity: Fat Layer Exposed Amount of bleeding with debridement: Mild Bleeding Controlled with: Pressure Patient tolerated procedure well Assessment/Plan Assessment: Left leg ulcer with fat layer /partial fascial layer exposed, lack of local infection signs. Anterior medial and lateral leg, left -no infection. bacterial colonization with Pseudomonas treated with antibiotics under infectious disease management. Leg edema. Venous insufficiency. Peripheral vascular disease. Delayed healing. Malnutrition suspected. C-diff history Plan: I reviewed and discussed her case today. Debridement was performed today as noted in the clinical panel. She was informed there are no overt signs of local or systemic signs of infection. Is noticed that she does have Pseudomonas contamination and colonization. She was seen by infectious disease previously and was started on an oral antibiotic regimen and this is appreciated. She was advised to complete the oral antibiotic course as prescribed. I recommend the application of advanced wound healing product, epi-fix to the medial lateral aspects of this ulcer because they look a lot beer coil cleaner and healthier with granular intermittent tissue. Verbal consent was obtained and this was applied according standard protocol. This was secured with a wound veil and Steri- Strips. The main anterior left leg site does have buildup of fibrous tissue even after debridement and I recommended resuming Santyl use. An updated prescription was provided today. They prior had issues obtaining this but denies going to a different pharmacy or asking for the self-pay lópez. I recommend doing these things to try to get the lópez down and they are amenable to try this. It is okay for her to continue use adaptic and Aquaphor peripherally to make the dressing changes more comfortable. To continue perform ing appropriate washing of the peripheral skin with direct contact. I recommend she proceed with work-up for both arterial and venous disease. Venous reflux evaluation test was ordered. She was advised to avoid idle sitting and standing and to elevate the limb to control edema. If she has continued pain particularly with leg elevation, I recommend she intermittently dangles the leg as well. She seems to do well while she is resting in the hospital and she is able to elevate. She admits she is not able to do this recommendation. She was reminded that she will likely not progress in a meaningful manner if she is not able to get some of the swelling down. This is up to her to be accountable while she is at home. Fully controlling the edema is a challenge at home. I also recommend she proceeds with noninvasive arterial study. This was performed and she has already completed the additional recommended tests by vascular surgery. I reviewed Dr. Morel's plan and documentation. She additionally had an updated test performed and intervention is not recommended at this time from an arterial standpoint. Due to her overall lack of progress I recommend she returns early to see if intervention is possible. She did attend and Dr. Morel advised her to return in 4 to 6 weeks. I would also like to request a note to confirm the plan. She understands any considered intervention is definitely not recommended while she has any type of infection or bacterial contamination. She does also have significant bilateral lower extremity monophasic waveforms with ABIs of around 0.5 bilaterally. her prealbumin was 19.8 and proper nutrition and supplementation was reviewed. To proceed with a proper control diet and nutrition supplementation to optimize healing. I answered all of her questions and explained the etiology of ulcer causes and the comprehensive wound healing plan. She understands she is not a candidate for current outpatient hyperbaric oxygen therapy due to the current local determinate coverage approved diagnoses. A second opinion at this time was also offered and is highly recommended. She defers at this time. Amputation also remains a treatment option and this will be further discussed at her follow-up. She was advised to return to clinic in 1 week. . 2020 quality measures reviewed as the following: medication and allergy reconciliation was performed. Reviewed 12-27-2019: She denies falling this past year. Reviewed 11/15/2019-pneumonia vaccination was confirmed, influenza immunization was confirmed for this current season in July 2019, advanced care plan was confirmed with living will, she is a current tobacco non user, her blood pressure is elevated over 120/80 and I recommend she follows up with her primary care physician for medical management of this. Diet and exercise benefits were also discussed for educational purposes to optimize her wound healing and medical management.
[2020-05-22 15:05] VITALS: BP 136/57; PULSE 80; RESP 18; TEMP 37.6; BMI 26.2
--- NOTE | 2020-05-22 17:34 | PN.PCM_ITS ---
(1) Delayed wound healing Status: Chronic Code(s): T14.8XXD - Other injury of unspecified body region, subsequent encounter (2) Pseudomonas aeruginosa colonization Status: Acute Code(s): Z22.39 - Carrier of other specified bacterial diseases (3) Ulcer of left lower extremity with fat layer exposed Status: Chronic Code(s): L97.922 - Non-pressure chronic ulcer of unspecified part of left lower leg with fat layer exposed (4) Venous insufficiency Status: Chronic Code(s): I87.2 - Venous insufficiency (chronic) (peripheral) Comment: left Greater saphenous vein (5) Other specified peripheral vascular diseases Status: Chronic Code(s): I73.89 - Other specified peripheral vascular diseases Comment: bilateral lower extremity (6) Left leg pain Status: Chronic Code(s): M79.605 - Pain in left leg (7) Leg edema, left Status: Chronic Code(s): R60.0 - Localized edema (8) Colonization status Status: Acute Code(s): Z22.9 - Carrier of infectious disease, unspecified Type of Wound Date of Service: 05/22/20 Chief Complaint: Left leg ulcer History of Wound: This 69-year-old female with significant past medical history of polio with several medical sequela sustained a left leg ulcer that dates back to 2016. She has been performing dressing care as advised. She denies redness or odor. She continues to change the dressing with Dakin's solution as advised last week. She has continued pain with dressing changes and applies Aquaphor around the margin of the wound and uses Adaptic to reduce some of this discomfort. She also uses tramadol for intermittent use for pain control. She tries to elevate and uses an Candelario wrap. She was previously seen vascular surgery. She recently went for early follow-up and was advised intervention will only be considered after her infection is completely cleared up. She was advised to follow-up in 4 to 6 weeks. She is also seen by infectious disease an d was treated for Pseudomonas recurrent bacterial contamination and also oral vancomycin due to her history of C. difficile. She reports she is basically unable to tolerate compression dressings and is frustrated with her ongoing leg swelling. They also admit that they are previously not washing or wiping the leg during the cleansing process due to pain. They were more so just dribbling the water over the limb. This was addressed last week and may try to perform more appropriate wound washing I am making contact with the towel on the leg and that has improved the appearance of the ulcer. She kept her epi-fix intact last week and was also able to obtain Santyl for the main ulcer site. Progress of Wound: Improvement to the satellite sites. Stable with delayed h ealing noted - Physical Exam Vital Signs Temp Pulse Resp BP 99.7 F H 80 18 136/57 H 05/22/20 15:05 05/22/20 15:05 05/22/20 15:05 05/22/20 15:05 General: Alert, Oriented x3, Cooperative, No apparent distress Extremities: No cyanosis, Capillary Refill Less than 3 Seconds, No Calf Tenderness, Diminished Peripheral Pulses, Edema Skin: Ulcer/ Wound - The skin is atrophic. There is no purulence, erythema, skin, odor, infection. Decreased drainage noted. Intermittent islands of epithelialization noted to the satellite lesions. The main ulcer deeper site is granular tissue but is mainly fibrous today. There is no deep tissue exposure necrosis or maceration Wound Measurements and Assessment WC - Nurse 1 - General Ulcer Measurement Start: 05/08/20 13:09 Freq: Status: Active Protocol: Activity Type Activity Date Activity User E-Sign Co-Sign Detail Recorded Client Recorded Date Recorded By Document 05/22/20 15:05 PL [id number] 05/22/20 15:25 PL 05/22/20 15:05 Wound Center Nurse 1 [Ulcer Assessment] #2 LLE medial -Combined with other wound No -Current Size (cm) - Length 4.5 -Current Size (cm) - Width 1.5 -Current Size (cm) - Depth 0.1 -Total Square Cm 6.75 -Photo Taken No -Epithelialization Medium 34-66% -Tunneling No -Undermining/Tunneling No -Granulation Amt Small (1-33%) -Granulation Quality [place] -Slough/Fibrin Yes -Necrosis Amt Large (67-100%) -Necrotic Tissue Type Adherent Slough -Moisture (Susana-wound Skin Appearance Maceration,Dry/ ) Scaly -Color (Susana-wound Skin Appearance) No Abnormality -Temperature (Susana-wound Skin No Abnormality Appearance) (Pt Warm) -Ulcer Cleansing Rinsed/ Irrigated with Saline -Foul Odor after Cleansing No -Anesthetic Used 4% Lidocaine Solution,5% Lidocaine Gel #1 LLE -Combined with other wound No -Current Size (cm) - Length 7.0 -Current Size (cm) - Width 5.0 -Current Size (cm) - Depth 0.3 -Total Square Cm 35.00 -Epithelialization None Present -Tunneling No -Undermining/Tunneling No -Wound Margin Thickened & Rolled Under -Granulation Amt Small (1-33%) -Granulation Quality [place] -Slough/Fibrin Yes -Necrosis Amt Large (67-100%) -Necrotic Tissue Type Adherent Slough -Texture (Susana-wound Skin Appearance) No Abnormality -Moisture (Susana-wound Skin Appearance No Abnormality ) -Color (Susana-wound Skin Appearance) No Abnormality -Temperature (Susana-wound Skin No Abnormality Appearance) (Pt Warm) -Ulcer Cleansing Rinsed/ Irrigated with Saline -Foul Odor after Cleansing No -Anesthetic Used 4% Lidocaine Solution,5% Lidocaine Gel WC - Nurse 2 - General Ulcer CM Notes Start: 05/08/20 13:09 Freq: Status: Active Protocol: Activity Type Activity Date Activity User E-Sign Co-Sign Detail Recorded Client Recorded Date Recorded By Document 05/22/20 15:44 JF [id number] 05/22/20 15:50 JF 05/22/20 15:44 Wound Center Nurse 2 [Procedure/Treatment] #2 LLE medial -Time 15:49 -Correct Patient Yes -Correct Side, Site, Position Yes -Correct Procedure Yes -Procedure Performed Yes -Type of Procedure Debridement -Clinical Debridement Subcutaneous -Post Debridement Size (cm) - Length 4.5 -Post Debridement Size (cm) - Width 1.6 -Post Debridement Size (cm) - Depth 0.1 -Total Square Cm 7.20 -Wound/Ulcer Outcome Not Healed -Ulcer Cleansing Rinsed/ Irrigated with Saline -Foul Odor after Cleansing No -Bioengineered Tissue No -Bleeding Controlled with Pressure -Offloading No -Treatment Response Procedure Tolerated Well #1 LLE -Time 15:45 -Correct Patient Yes -Correct Side, Site, Position Yes -Correct Procedure Yes -Procedure Performed Yes -Type of Procedure Debridement -Clinical Debridement Subcutaneous -Post Debridement Size (cm) - Length 7.1 -Post Debridement Size (cm) - Width 5.1 -Post Debridement Size (cm) - Depth 0.3 -Total Square Cm 36.21 -Wound/Ulcer Outcome Not Healed -Ulcer Cleansing Rinsed/ Irrigated with Saline -Foul Odor after Cleansing No -Bioengineered Tissue No -Bleeding Controlled with Pressure -Offloading No -Treatment Response Procedure Tolerated Well [See Physician Procedure note for Specifics] Pain Scale: 0-10 Numeric [Pain] -Is Patient Pain Free? 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 Neurological: Sensory exam intact to light touch and pain - Hypersensitive Psych/Mental Status: Normal Affect, Appropriate Debridement Note Post-Debridement Measurements/Treatment WC - Nurse 2 - General Ulcer CM Notes Start: 05/08/20 13:09 Freq: Status: Active Protocol: Activity Type Activity Date Activity User E-Sign Co-Sign Detail Recorded Client Recorded Date Recorded By Document 05/08/20 13:24 JF [id number] 05/08/20 13:31 JF Document 05/15/20 15:03 MW [id number] 05/15/20 15:19 MW Document 05/22/20 15:44 [id number] 05/22/20 15:50 05/08/20 05/15/20 05/22/20 13:24 15:03 15:44 Wound Center Nurse 2 #2 LLE medial -Time 13:25 15:04 15:49 -Correct Patient Yes Yes Yes -Correct Side, Site, Position Yes Yes Yes -Correct Procedure Yes Yes Yes -Procedure Performed Yes Yes Yes -Type of Procedure Debridement Debridement Debridement -Clinical Debridement Selective Subcutaneous Subcutaneous -Post Debridement Size (cm) - Length 1.5 6.0 4.5 -Post Debridement Size (cm) - Width 2 3.0 1.6 -Post Debridement Size (cm) - Depth 0.1 0.1 0.1 -Total Square Cm 3.0 18.00 7.20 -Wound/Ulcer Outcome Not Healed Not Healed Not Healed -Ulcer Cleansing Rinsed/ Rinsed/ Rinsed/ Irrigated with Irrigated with Irrigated with Saline Saline Saline -Foul Odor after Cleansing No No No -Bioengineered Tissue No Yes No -Type of bioengineered Tissue EPIFIX -Expiration Date 01/06/25 -Product Lot Number [id number] -Percent Used 100 -Saline Lot Number [id number] -Bleeding Controlled with Pressure Pressure Pressure -Offloading No No No -Treatment Response Procedure Procedure Procedure Tolerated Well Tolerated Well Tolerated Well #1 LLE -Time 13:25 15:04 15:45 -Correct Patient Yes Yes Yes -Correct Side, Site, Position Yes Yes Yes -Correct Procedure Yes Yes Yes -Procedure Performed Yes Yes Yes -Type of Procedure Debridement Debridement Debridement -Clinical Debridement Selective Subcutaneous Subcutaneous -Post Debridement Size (cm) - Length 7.2 7.4 7.1 -Post Debridement Size (cm) - Width 5.7 5.2 5.1 -Post Debridement Size (cm) - Depth 0.3 0.1 0.3 -Total Square Cm 41.04 38.48 36.21 -Wound/Ulcer Outcome Not Healed Not Healed Not Healed -Ulcer Cleansing Rinsed/ Rinsed/ Rinsed/ Irrigated with Irrigated with Irrigated with Saline Saline Saline -Foul Odor after Cleansing No No No -Bioengineered Tissue No No No -Bleeding Controlled with Pressure Pressure Pressure -Offloading No No No -Treatment Response Procedure Procedure Procedure Tolerated Well Tolerated Well Tolerated Well Pain Scale: 0-10 Numeric Is Patient Pain Free? Yes Yes Yes Wound debrided: leg Laterality: Left Type of Debridement: Excisional debridement Anesthesia Used: 5% Lidocaine Gel Depth: in the subcutaneous layer Percentage of wound debrided: 100 Instrument Used: #15 blade Tissue Removed: fibrous, devitalized subcutaneous, biofilm, slough Severity: Fat Layer Exposed Amount of bleeding with debridement: Mild Bleeding Controlled with: Pressure Patient tolerated procedure well Assessment/Plan Assessment: Left leg ulcer with fat layer /partial fascial layer exposed, lack of local infection signs. Anterior medial and lateral leg, left -no infection. bacterial colonization with Pseudomonas treated with antibiotics under infectious disease management. Leg edema. Venous insufficiency. Peripheral vascular disease. Delayed healing. Malnutrition suspected. C-diff history Plan: I reviewed and discussed her case today. Debridement was performed today as noted in the clinical panel. She was informed there are no overt signs of local or systemic signs of infection. It is noticed that she does have Pseudomonas contamination and colonization. She was seen by infectious disease previously and was started on an oral antibiotic regimen and this is appreciated. She was advised to complete the oral antibiotic course as prescribed. This was completed. She also made some improvements with mechanically cleansing the ulcer site and leg which is imperative to prevent biofilm buildup. To continue Santyl application to the main ulcer site and Adaptic application to the adjacent sites. To continue performing appropriate washing. I recommend she proceed with work-up for both arterial and venous disease. Venous reflux evaluation test was ordered. She was advised to avoid idle sitting and standing and to elevate the limb to control edema. If she has continued pain particularly with leg elevation, I recommend she intermittently dangles the leg as well. She seems to do well while she is resting in the hospital and she is able to elevate. She admits she is not able to do this recommendation. She was reminded that she will likely not progress in a meaningful manner if she is not able to get some of the swelling down. This is up to her to be accountable while she is at home. Fully controlling the edema is a challenge at home. I also recommend she proceeds with noninvasive arterial study. This was performed and she has already completed the additional recommended tests by vascular surgery. I reviewed Dr. Morel's plan and documentation. She additionally had an updated test performed and intervention is not recommended at this time from an arterial standpoint. Due to her overall lack of progress I recommend she returns early to see if intervention is possible. She did attend and Dr. Morel advised her to return in 4 to 6 weeks. She understands any considered intervention is definitely not recommended while she has any type of infection or bacterial contamination. She does also have significant bilateral lower extremity monophasic waveforms with ABIs of around 0.5 bilaterally. her prealbumin was 19.8 and proper nutrition and supplementation was reviewed. To proceed with a proper control diet and nutrition supplementation to optimize healing. I answered all of her questions and explained the etiology of ulcer causes and the comprehensive wound healing plan. She understands she is not a candidate for current outpatient hyperbaric oxygen therapy due to the current local determinate coverage approved diagnoses. A second opinion at this time was also offered and is highly recommended. She defers at this time. Amputation also remains a treatment option and this will be further discussed at her follow-up. She understands she has exhausted her 12-week opportunity for advance wound healing products in the wound care center. Another option include surgical versus active debridement with application of advanced wound healing product. She relates she needs to proceed forward with a colonoscopy and her potential vascular intervention prior to considering this. She is overwhelmed with all the medical procedures needed. I advised her that this is an opportunity she will think about it. She was advised to return to clinic in 1 week. . 2020 quality measures reviewed as the following: medication and allergy reconciliation was performed. Reviewed 12-27-2019: She denies falling this past year. Reviewed 11/15/2019- pneumonia vaccination was confirmed, influenza immunization was confirmed for this current season in July 2019, advanced care plan was confirmed with living will, she is a current tobacco non user, her blood pressure is elevated over 120/80 and I recommend she follows up with her primary care physician for medical management of this. Diet and exercise benefits were also discussed for educational purposes to optimize her wound healing and medical management.
[2020-06-05 16:07] VITALS: BP 136/82; PULSE 82; RESP 18; TEMP 37.5; BMI 26.2
--- NOTE | 2020-06-05 16:09 | WC ---
pt gauze dressing removed and adaptic left in place over wounds
--- NOTE | 2020-06-05 16:40 | PN.PCM_ITS ---
(1) Delayed wound healing Status: Chronic Code(s): T14.8XXD - Other injury of unspecified body region, subsequent encounter (2) Pseudomonas aeruginosa colonization Status: Acute Code(s): Z22.39 - Carrier of other specified bacterial diseases (3) Ulcer of left lower extremity with fat layer exposed Status: Chronic Code(s): L97.922 - Non-pressure chronic ulcer of unspecified part of left lower leg with fat layer exposed (4) Venous insufficiency Status: Chronic Code(s): I87.2 - Venous insufficiency (chronic) (peripheral) Comment: left Greater saphenous vein (5) Other specified peripheral vascular diseases Status: Chronic Code(s): I73.89 - Other specified peripheral vascular diseases Comment: bilateral lower extremity (6) Left leg pain Status: Chronic Code(s): M79.605 - Pain in left leg (7) Leg edema, left Status: Chronic Code(s): R60.0 - Localized edema (8) Colonization status Status: Acute Code(s): Z22.9 - Carrier of infectious disease, unspecified Type of Wound Date of Service: 06/05/20 Chief Complaint: Left leg ulcer History of Wound: This 69-year-old female with significant past medical history of polio with several medical sequela sustained a left leg ulcer that dates back to 2016. She tries to elevate and uses an Candelario wrap. She was previously seen vascular surgery. She recently went for early follow-up and was advised intervention will only be considered after her infection is completely cleared up. She was recently discharged from a hospitalization at [facility] for C. difficile. At the same time she was treated for cellulitis of her left limb and during her admission she underwent operating room Versajet debridement of her wound with application of advanced wound healing product, amnio fill. There was also some bone debridement of the fibula performed and this was sent as a bone biopsy. These microbiology and pathology reports are lorenzo hope today. She was seen by infectious disease and was started on a 6-week course of IV antibiotic. She denies new side effects. Progress of Wound: Improvement to the satellite sites. Stable with delayed healing noted - Physical Exam Vital Signs Temp Pulse Resp BP 99.5 F H 82 18 136/82 H 06/05/20 16:07 06/05/20 16:06/05/20 16:07 06/05/20 16:07 General: Alert, Oriented x3, Cooperative, No apparent distress HEENT: Atraumatic Extremities: No cyanosis, Capillary Refill Less than 3 Seconds, No Calf Tenderness - Negative Kishor and Hughes sign. Compartments of left lower extremity remain soft, Diminished Peripheral Pulses, Edema - Decreased left lower extremity, Tenderness - Tenderness with ulcer palpation left leg. No bogginess or fluctuance Skin: Ulcer/ Wound - There is no erythema, purulence, odor noted. The satellite lesions appear to be epithelializing. The amnio fill that has a wound veil of Adaptic sutured in place remains intact and this is continuing to incorporating well. The adjacent skin is very hairless and atrophic. Wound Measurements and Assessment WC - Nurse 1 - General Ulcer Measurement Start: 05/08/20 13:09 Freq: Status: Active Protocol: Activity Type Activity Date Activity User E-Sign Co-Sign Detail Recorded Client Recorded Date Recorded By Document 06/05/20 16:07 ELHAM [id number] 06/05/20 16:10 ELHAM 06/05/20 16:07 Wound Center Nurse 1 [Ulcer Assessment] #2 LLE medial -Exudate Amt Medium -Exudate Type Serosanguineous -Wound Margin Flat & Intact -Texture (Susana-wound Skin Appearance) Assessed -Moisture (Susana-wound Skin Appearance Assessed ) -Color (Susana-wound Skin Appearance) Assessed -Temperature (Susana-wound Skin No Abnormality Appearance) (Pt Warm) -Tenderness on Palpation (Susana-wound No Skin Appearance) -Ulcer Cleansing Wound Cleanser -Foul Odor after Cleansing No -Anesthetic Used 4% Lidocaine Solution [Edema Assessment] -Lower Limb Edema Present Yes -Left Calf (cm) 34 -Left Ankle (cm) 24.5 06/05/20 16:09 Wound Center by Hilda Isaacs pt gauze dressing removed and adaptic left in place over wounds Initialized on 06/05/20 16:09 - END OF NOTE WC - Nurse 2 - General Ulcer CM Notes Start: 05/08/20 13:09 Freq: Status: Active Protocol: Activity Type Activity Date Activity User E-Sign Co-Sign Detail Recorded Client Recorded Date Recorded By Document 06/05/20 16:16 FELISHA [id number] 06/05/20 16:16 FELISHA 06/05/20 16:16 Wound Center Nurse 2 [Procedure/Treatment] #2 LLE medial -Correct Patient No -Correct Side, Site, Position No -Correct Procedure No -Procedure Performed No -Wound/Ulcer Outcome Not Healed #1 LLE -Correct Patient No -Correct Side, Site, Position No -Correct Procedure No -Procedure Performed No -Wound/Ulcer Outcome Not Healed [See Physician Procedure note for Specifics] Pain Scale: 0-10 Numeric [Pain] -Is Patient Pain Free? Yes Musculoskeletal: Tenderness Neurological: Sensory exam intact to light touch and pain Psych/Mental Status: Normal Affect, Appropriate Debridement Note Post-Debridement Measurements/Treatment WC - Nurse 2 - General Ulcer CM Notes Start: 05/08/20 13:09 Freq: Status: Active Protocol: Activity Type Activity Date Activity User E-Sign Co-Sign Detail Recorded Client Recorded Date Recorded By Document 05/08/20 13:24 JF [id number] 05/08/20 13:31 Document 05/15/20 15:03 MW [id number] 05/15/20 15:19 MW Document 05/22/20 15:44 [id number] 05/22/20 15:50 Document 06/05/20 16:16 [id number] 06/05/20 16:16 05/08/20 05/15/20 05/22/20 13:24 15:03 15:44 Wound Center Nurse 2 #2 LLE medial -Time 13:25 15:04 15:49 -Correct Patient Yes Yes Yes -Correct Side, Site, Position Yes Yes Yes -Correct Procedure Yes Yes Yes -Procedure Performed Yes Yes Yes -Type of Procedure Debridement Debridement Debridement -Clinical Debridement Selective Subcutaneous Subcutaneous -Post Debridement Size (cm) - Length 1.5 6.0 4.5 -Post Debridement Size (cm) - Width 2 3.0 1.6 -Post Debridement Size (cm) - Depth 0.1 0.1 0.1 -Total Square (cm) 3.0 18.00 7.20 -Wound/Ulcer Outcome Not Healed Not Healed Not Healed -Ulcer Cleansing Rinsed/ Rinsed/ Rinsed/ Irrigated with Irrigated with Irrigated with Saline Saline Saline -Foul Odor after Cleansing No No No -Bioengineered Tissue No Yes No -Type of bioengineered Tissue EPIFIX -Expiration Date 01/06/25 -Product Lot Number [id number] -Percent Used 100 -Saline Lot Number [id number] -Bleeding Controlled with Pressure Pressure Pressure -Offloading No No No -Treatment Response Procedure Procedure Procedure Tolerated Well Tolerated Well Tolerated Well #1 LLE -Time 13:25 15:04 15:45 -Correct Patient Yes Yes Yes -Correct Side, Site, Position Yes Yes Yes -Correct Procedure Yes Yes Yes -Procedure Performed Yes Yes Yes -Type of Procedure Debridement Debridement Debridement -Clinical Debridement Selective Subcutaneous Subcutaneous -Post Debridement Size (cm) - Length 7.2 7.4 7.1 -Post Debridement Size (cm) - Width 5.7 5.2 5.1 -Post Debridement Size (cm) - Depth 0.3 0.1 0.3 -Total Square (cm) 41.04 38.48 36.21 -Wound/Ulcer Outcome Not Healed Not Healed Not Healed -Ulcer Cleansing Rinsed/ Rinsed/ Rinsed/ Irrigated with Irrigated with Irrigated with Saline Saline Saline -Foul Odor after Cleansing No No No -Bioengineered Tissue No No No -Bleeding Controlled with Pressure Pressure Pressure -Offloading No No No -Treatment Response Procedure Procedure Procedure Tolerated Well Tolerated Well Tolerated Well Pain Scale: 0-10 Numeric Is Patient Pain Free? Yes Yes Yes 06/05/20 16:16 Wound Center Nurse 2 #2 LLE medial -Time -Correct Patient No -Correct Side, Site, Position No -Correct Procedure No -Procedure Performed No -Type of Procedure -Clinical Debridement -Post Debridement Size (cm) - Length -Post Debridement Size (cm) - Width -Post Debridement Size (cm) - Depth -Total Square (cm) -Wound/Ulcer Outcome Not Healed -Ulcer Cleansing -Foul Odor after Cleansing -Bioengineered Tissue -Type of bioengineered Tissue -Expiration Date -Product Lot Number -Percent Used -Saline Lot Number -Bleeding Controlled with -Offloading -Treatment Response #1 LLE -Time -Correct Patient No -Correct Side, Site, Position No -Correct Procedure No -Procedure Performed No -Type of Procedure -Clinical Debridement -Post Debridement Size (cm) - Length -Post Debridement Size (cm) - Width -Post Debridement Size (cm) - Depth -Total Square (cm) -Wound/Ulcer Outcome Not Healed -Ulcer Cleansing -Foul Odor after Cleansing -Bioengineered Tissue -Bleeding Controlled with -Offloading -Treatment Response Pain Scale: 0-10 Numeric Is Patient Pain Free? Yes No debridement was completed today - Amnio fill advance wound healing product is incorporating in and was left intact today Assessment/Plan Assessment: Left leg ulcer with fat layer /partial fascial layer exposed. Anterior medial and lateral leg, left -no infection. C. difficile. 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 bacterial colonization with Pseudomonas treated with antibiotics under infectious disease management. Leg edema. Venous insufficiency. Peripheral vascular disease. Delayed healing. Malnutrition suspected Plan: I reviewed and discussed her case today. Debridement was not performed today because the advanced wound healing product, amnio fill is incorporating in. Debridement will be considered within the next 2 weeks. Her leg was washed and a secondary Adaptic and gauze dressing was applied. To keep clean, dry, and intact until follow-up next week. She was seen by infectious disease during her most recent hospital admission. She had operating room debridement on 05-29-2020. She will now complete a 6-week course of IV vancomycin and cefepime with an end date of July 08, 2020. She will follow-up in the clinical setting with infectious disease and will have weekly labs. She will also continue on oral vancomycin for treatment of her C. difficile. I recommend she proceed with work-up for both arterial and venous disease. Venous reflux evaluation test was ordered. She was advised to avoid idle sitting and standing and to elevate the limb to control edema. If she has continued pain particularly with leg elevation, I recommend she intermittently dangles the leg as well. She seems to do well while she is resting in the hospital and she is able to elevate. She admits she is not able to do this recommendation. She was reminded that she will likely not progress in a meaningful manner if she is not able to get some of the swelling down. This is up to her to be accountable while she is at home. Fully controlling the edema is a challenge at home. I also recommend she proceeds with noninvasive arterial study. This was performed and she has already completed the additional recommended tests by vascular surgery. I reviewed Dr. Morel's plan and documentation. She additionally had an updated test performed and intervention is not recommended at this time from an arterial standpoint. Due to her overall lack of progress I recommend she returns early to see if intervention is possible. She did attend and Dr. Morel advised her to return in [address] Morel was also updated on her recent hospital admission findings and plan. She understands any considered intervention is definitely not recommended while she has any type of infection or bacterial contamination. She does also have significant bilateral lower extremity monophasic waveforms with ABIs of around 0.5 bilaterally. her prealbumin was 19.8 and proper nutrition and supplementation was reviewed. To proceed with a proper control diet and nutrition supplementation to optimize healing. I answered all of her questions and explained the etiology of ulcer causes and the comprehensive wound healing plan. She understands she is not a candidate for current outpatient hyperbaric oxygen therapy due to the current local determinate coverage approved diagnoses. A second opinion at this time was also offered and is highly recommended. She defers at this time. Amputation also remains a treatment option and this will be further discussed at her follow-up. She was advised to return to clinic in 1 week. . 2020 quality measures reviewed as the following: medication and allergy reconciliation was performed. Reviewed 12-27-2019: She denies falling this past year. Reviewed 11/15/2019-pneumonia vaccination was confirmed, influenza immu nization was confirmed for this current season in July 2019, advanced care plan was confirmed with living will, she is a current tobacco non user, her blood pressure is elevated over 120/80 and I recommend she follows up with her primary care physician for medical management of this. Diet and exercise benefits were also discussed for educational purposes to optimize her wound healing and medical management.
== END 2020-06-07 23:59 ==
LOC: WC 15:30
PROVIDERS: Referring Provider Podiatrist; Visit Provider Podiatrist
DX: I73.89 Other specified peripheral vascular diseases (principal); I87.2 Venous insufficiency (chronic) (peripheral); R60.0 Localized edema; M79.605 Pain in left leg; Z86.12 Personal history of poliomyelitis; L97.821 Non-pressure chronic ulcer of other part of left lower leg limited to breakdown of skin; Z22.39 Carrier of other specified bacterial diseases
CPT/HCPCS: 11042; 11045; 15271; 97597; 97598; 99213; Q4186; G0463

== ENCOUNTER 2020-06-26 13:30 | Outpatient (RCR) | payer MEDICARE, OTHER, SELFPAY ==
[2020-06-08 00:25] VITALS: BP 136/82; PULSE 82; RESP 18; TEMP 37.5; BMI 26.8
[2020-06-12 16:02] VITALS: BP 139/74; PULSE 66; RESP 18; TEMP 37.4; BMI 26.8
--- NOTE | 2020-06-12 16:09 | WC ---
sutures/adaptic intact
--- NOTE | 2020-06-12 16:28 | PCM.WC.PN ---
(1) Localized edema Status: Chronic Code(s): R60.0 - Localized edema (2) Osteomyelitis of left fibula Status: Suspected Qualifiers: Code(s): M86.9 - Osteomyelitis, unspecified (3) Ulcer of left lower extremity with fat layer exposed Status: Chronic Code(s): L97.922 - Non-pressure chronic ulcer of unspecified part of left lower leg with fat layer exposed Type of Wound Date of Service: 06/12/20 Chief Complaint: Left leg ulcer History of Wound: This 69-year-old female with significant past medical history of polio with several medical sequela sustained a left leg ulcer that dates back to 2016. She tries to elevate and uses an Candelario wrap. She was previously seen vascular surgery. She recently went for early follow-up and was advised intervention will only be considered after her infection is completely cleared up. She was recently discharged from a hospitalization at [facility] for C. difficile. At the same time she was treated for cellulitis of her left limb and during her admission she underwent operating room Versajet debridement of her wound with application of advanced wound healing product, amnio fill. There was also some bone debridement of the fibula performed and this was sent as a bone biopsy. She is currently on a 6-week course of IV antibiotics under the management of infectious disease. Her microbiology fibula results demonstrated bacterial growth and her official pathology evaluation did not confirm osteomyelitis. She has the supporting elements for osteomyelitis and has ongoing delayed healing therefore she will be treated for the full course. Her pain is better controlled this week and she has left her dressing clean, dry, and intact as advised. Progress of Wound: Improvement to the satellite sites. Stable with delayed healing noted - Physical Exam Vital Signs Temp Pulse Resp BP 99.4 F H 66 18 139/74 H 06/12/20 16:02 06/12/20 16:02 06/12/20 16:02 06/12/20 16:02 General: Alert, Oriented x3, Cooperative, No apparent distress Extremities: No cyanosis, Capillary Refill Less than 3 Seconds, No Calf Tenderness, Diminished Peripheral Pulses, Edema - Decreased for last week Skin: Ulcer/ Wound - No purulence, erythema, streaking, odor, infection. The amnio fill is intact with overlying Adaptic sutured in place. Upon removal of Adaptic from the satellite lesions there is progressive epithelialization. No deep tissue, bogginess, fluctuance. The adjacent skin is very hairless and atrophic Wound Measurements and Assessment - Nurse 1 - General Ulcer Measurement Start: 06/12/20 16:01 Freq: Status: Active Protocol: Activity Type Activity Date Activity User E-Sign Co-Sign Detail Recorded Client Recorded Date Recorded By Document 06/12/20 16:02 [facility] [id number] 06/12/20 16:09 [facility] 06/12/20 16:02 Wound Center Nurse 1 [Ulcer Assessment] #2 LLE medial -Combined with other wound No -Current Size (cm) - Length 0.1 -Current Size (cm) - Width 0.1 -Current Size (cm) - Depth 0.1 -Total Square Cm 0.01 #1 LLE -Combined with other wound No -Current Size (cm) - Length 0.1 -Current Size (cm) - Width 0.1 -Current Size (cm) - Depth 0.1 -Total Square Cm 0.01 - Nurse 2 - General Ulcer CM Notes Start: 06/12/20 16:01 Freq: Status: Active Protocol: Activity Type Activity Date Activity User E-Sign Co-Sign Detail Recorded Client Recorded Date Recorded By Document 06/12/20 16:19 [id number] 06/12/20 16:24 06/12/20 16:19 Wound Center Nurse 2 [Procedure/Treatment] #2 LLE medial -Time 16:24 -Correct Patient Yes -Correct Side, Site, Position Yes -Correct Procedure Yes -Procedure Performed Yes -Type of Procedure Debridement -Clinical Debridement Subcutaneous -Post Debridement Size (cm) - Length 0.3 -Post Debridement Size (cm) - Width 0.8 -Post Debridement Size (cm) - Depth 0.1 -Total Square (cm) 0.24 -Wound/Ulcer Outcome Not Healed -Ulcer Cleansing Rinsed/ Irrigated with Saline -Foul Odor after Cleansing No -Bioengineered Tissue No -Bleeding Controlled with Pressure -Offloading No -Treatment Response Procedure Tolerated Well #1 LLE -Correct Patient No -Correct Side, Site, Position No -Correct Procedure No -Procedure Performed No -Wound/Ulcer Outcome Not Healed [See Physician Procedure note for Specifics] Pain Scale: 0-10 Numeric [Pain] -Is Patient Pain Free? 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 Neurological: Sensory exam intact to light touch and pain Psych/Mental Status: Normal Affect, Appropriate Debridement Note Post-Debridement Measurements/Treatment WC - Nurse 2 - General Ulcer CM Notes Start: 06/12/20 16:01 Freq: Status: Active Protocol: Activity Type Activity Date Activity User E-Sign Co-Sign Detail Recorded Client Recorded Date Recorded By Document 06/12/20 16:19 FELISHA [id number] 06/12/20 16:24 FELISHA 06/12/20 16:19 Wound Center Nurse 2 #2 LLE medial -Time 16:24 -Correct Patient Yes -Correct Side, Site, Position Yes -Correct Procedure Yes -Procedure Performed Yes -Type of Procedure Debridement -Clinical Debridement Subcutaneous -Post Debridement Size (cm) - Length 0.3 -Post Debridement Size (cm) - Width 0.8 -Post Debridement Size (cm) - Depth 0.1 -Total Square (cm) 0.24 -Wound/Ulcer Outcome Not Healed -Ulcer Cleansing Rinsed/ Irrigated with Saline -Foul Odor after Cleansing No -Bioengineered Tissue No -Bleeding Controlled with Pressure -Offloading No -Treatment Response Procedure Tolerated Well #1 LLE -Correct Patient No -Correct Side, Site, Position No -Correct Procedure No -Procedure Performed No -Wound/Ulcer Outcome Not Healed Pain Scale: 0-10 Numeric Is Patient Pain Free? Yes Wound debrided: leg (anterior satellite lesion) Laterality: Left Type of Debridement: Excisional debridement Anesthesia Used: 5% Lidocaine Gel Depth: in the subcutaneous layer Percentage of wound debrided: 100 Instrument Used: #15 blade Tissue Removed: fibrous, devitalized subcutaneous, biofilm, slough Severity: Fat Layer Exposed Amount of bleeding with debridement: Mild Bleeding Controlled with: Pressure Patient tolerated procedure well Assessment/Plan Assessment: Left leg ulcer with fat layer /partial fascial layer exposed. Anterior medial and lateral leg, left -no infection. C. difficile. 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 bacterial colonization with Pseudomonas treated with antibiotics under infectious disease management. Leg edema. Venous insufficiency. Peripheral vascular disease. Delayed healing. Malnutrition suspected Plan: I reviewed and discussed her case today. Debridement was performed to the satellite lesions noted today. The main ulcer debridement site has continued incorporation of the advancement healing product, amnio fill. This will be kept in place for an additional week. This will be removed and debrided next week. Her leg was washed and a secondary Adaptic and gauze dressing was applied. To keep clean, dry, and intact until follow-up next week. She was seen by infectious disease during her most recent hospital admission. She had operating room debridement on 05-29-2020. She will now complete a 6-week course of IV vancomycin and cefepime with an end date of July 08, 2020. She will follow-up in the clinical setting with infectious disease and will have weekly labs. She will also continue on oral vancomycin for treatment of her C. difficile. I recommend she proceed with work-up for both arterial and venous disease. Venous reflux evaluation test was ordered. She was advised to avoid idle sitting and standing and to elevate the limb to control edema. If she has continued pain particularly with leg elevation, I recommend she intermittently dangles the leg as well. She seems to do well while she is resting in the hospital and she is able to elevate. She admits she is not able to do this recommendation. She was reminded that she will likely not progress in a meaningful manner if she is not able to get some of the swelling down. This is up to her to be accountable while she is at home. Fully controlling the edema is a challenge at home. I also recommend she proceeds with noninvasive arterial study. This was performed and she has already completed the additional recommended tests by vascular surgery. I reviewed Dr. Morel's plan and documentation. She additionally had an updated test performed and intervention is not recommended at this time from an arterial standpoint. Due to her overall lack of progress I recommend she returns early to see if intervention is possible. Dr. Morel was also updated on her recent hospital admission findings and plan. She understands any considered intervention is definitely not recommended while she has any type of infection or bacterial contamination. She does also have significant bilateral lower extremity monophasic waveforms with ABIs of around 0.5 bilaterally. her prealbumin was 19.8 and proper nutrition and supplementation was reviewed. To proceed with a proper control diet and nutrition supplementation to optimize healing. I answered all of her questions and explained the etiology of ulcer causes and the comprehensive wound healing plan. She understands she is not a candidate for current outpatient hyperbaric oxygen therapy due to the current local determinate coverage approved diagnoses. A second opinion at this time was also offered and is highly recommended. She defers at this time. Amputation also remains a treatment option and this will be further discussed at her follow-up. She was advised to return to clinic in 1 week. . 2020 quality measures reviewed as the following: medication and allergy reconciliation was performed. Reviewed 12-27-2019: She denies falling this past year. Reviewed 11/15/2019-pneumonia vaccination was confirmed, influenza immunization was confirmed for this current season in July 2019, advanced care plan was confirmed with living will, she is a current tobacco non user, her blood pressure is elevated over 120/80 and I recommend she follows up with her primary care physician for medical management of this. Diet and exercise benefits were also discussed for educational purposes to optimize her wound healing and medical management.
[2020-06-19 14:09] VITALS: BP 154/57; PULSE 78; RESP 18; TEMP 36.6; BMI 26.8
--- NOTE | 2020-06-19 22:59 | PCM.WC.PN ---
(1) Localized edema Status: Chronic Code(s): R60.0 - Localized edema (2) Osteomyelitis of left fibula Status: Suspected Qualifiers: Code(s): M86.9 - Osteomyelitis, unspecified (3) Ulcer of left lower extremity with fat layer exposed Status: Chronic Code(s): L97.922 - Non-pressure chronic ulcer of unspecified part of left lower leg with fat layer exposed (4) Other specified peripheral vascular diseases Status: Chronic Code(s): I73.89 - Other specified peripheral vascular diseases Comment: bilateral lower extremity Type of Wound Date of Service: 06/19/20 Chief Complaint: Left leg ulcer History of Wound: This 69-year-old female with significant past medical history of polio with several medical sequela sustained a left leg ulcer that dates back to 2016. She tries to elevate and uses an Candelario wrap. She was previously seen vascular surgery. She recently went for early follow-up and was advised intervention will only be considered after her infection is completely cleared up. She was recently discharged from a hospitalization at [facility] for C. difficile. At the same time she was treated for cellulitis of her left limb and during her admission she underwent operating room Versajet debridement of her wound with application of advanced wound healing product, amnio fill. There was also some bone debridement of the fibula performed and this was sent as a bone biopsy. She is currently on a 6-week course of IV antibiotics under the management of infectious disease. Her microbiology fibula results demonstrated bacterial growth and her official pathology evaluation did not confirm osteomyelitis. She has the supporting elements for osteomyelitis and has ongoing delayed healing therefore she will be treated for the full course. Her pain is better controlled this week and she has left her dressing clean, dry, and intact as advised. She is with her daughter today. 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 There is one that is in near proximity to her PICC line however she does not think it is directly involving this. She asked me to look at this today. Progress of Wound: Continued improvement to the satellite sites. Stable with delayed healing noted - Physical Exam Vital Signs Temp Pulse Resp BP 97.9 F 78 18 154/57 H 06/19/20 14:09 06/19/20 14:06/19/20 14:09 06/19/20 14:09 General: Alert, Oriented x3, Cooperative, No apparent distress Extremities: No cyanosis, Capillary Refill Less than 3 Seconds, Diminished Peripheral Pulses, Edema - Decreased Skin: Ulcer/ Wound - No purulence, erythema, streaking, odor, infection. The lateral satellite ulcer has healed with full epithelialization. The medial satellite lesion is decreased and healthier in appearance. No. Ulcer on inflammation, chloride, maceration noted. Upon Adaptic and suture removal remaining ulcer site has a reduced depth and has granular fibrous tissue with no longer any exposed muscle fascia layer. The adjacent skin is atrophic and hairless. There is some hyperpigmentation. There is no erythema. There is no bogginess or fluctuance on palpation Wound Measurements and Assessment WC - Nurse 1 - General Ulcer Measurement Start: 06/12/20 16:01 Freq: Status: Active Protocol: Activity Type Activity Date Activity User E-Sign Co-Sign Detail Recorded Client Recorded Date Recorded By Document 06/19/20 14:09 [email or web address] [id number] 06/19/20 14:16 RB 06/19/20 14:09 Wound Center Nurse 1 [Ulcer Assessment] #2 LLE medial -Combined with other wound No -Current Size (cm) - Length 1 -Current Size (cm) - Width 2 -Current Size (cm) - Depth 0.2 -Total Square Cm 2 -Tunneling No -Undermining/Tunneling No -Circular Undermining No -Exudate Amt Medium -Exudate Type Serosanguineous -Wound Margin Thickened & Rolled Under -Granulation Amt Medium (34-66%) -Granulation Quality [place] -Necrosis Amt Medium (34-66%) -Necrotic Tissue Type Adherent Slough -Structure Exposed N/A -Texture (Susana-wound Skin Appearance) Excoriation -Moisture (Susana-wound Skin Appearance Maceration ) -Color (Susana-wound Skin Appearance) Assessed -Temperature (Susana-wound Skin No Abnormality Appearance) (Pt Warm) -Tenderness on Palpation (Susana-wound No Skin Appearance) -Ulcer Cleansing Wound Cleanser -Foul Odor after Cleansing No -Anesthetic Used 4% Lidocaine Solution,5% Lidocaine Gel #1 LLE -Combined with other wound No -Current Size (cm) - Length 7.3 -Current Size (cm) - Width 5.4 -Current Size (cm) - Depth 0.2 -Total Square Cm 39.42 -Tunneling No -Undermining/Tunneling No -Circular Undermining No -Exudate Amt Medium -Exudate Type Serosanguineous -Wound Margin Thickened & Rolled Under -Granulation Amt Medium (34-66%) -Granulation Quality [place] -Slough/Fibrin Yes -Necrosis Amt Small (1-33%) -Necrotic Tissue Type Adherent Slough -Structure Exposed N/A -Texture (Susana-wound Skin Appearance) Assessed, Excoriation -Moisture (Susana-wound Skin Appearance Maceration ) -Color (Susana-wound Skin Appearance) Assessed -Temperature (Susana-wound Skin No Abnormality Appearance) (Pt Warm) -Tenderness on Palpation (Susana-wound No Skin Appearance) -Ulcer Cleansing Wound Cleanser -Foul Odor after Cleansing No -Anesthetic Used 4% Lidocaine Solution,5% Lidocaine Gel [Edema Assessment] -Lower Limb Edema Present Yes -Left Calf (cm) 34.6 -Left Ankle (cm) 21.5 WC - Nurse 2 - General Ulcer CM Notes Start: 06/12/20 16:01 Freq: Status: Active Protocol: Activity Type Activity Date Activity User E-Sign Co-Sign Detail Recorded Client Recorded Date Recorded By Document 06/19/20 14:36 [id number] 06/19/20 14:39 06/19/20 14:36 Wound Center Nurse 2 [Procedure/Treatment] #2 LLE medial -Correct Patient No -Correct Side, Site, Position No -Correct Procedure No -Procedure Performed No -Wound/Ulcer Outcome Not Healed #1 LLE -Time 14:38 -Correct Patient Yes -Correct Side, Site, Position Yes -Correct Procedure Yes -Procedure Performed Yes -Type of Procedure Debridement -Clinical Debridement Subcutaneous -Post Debridement Size (cm) - Length 6.7 -Post Debridement Size (cm) - Width 5.0 -Post Debridement Size (cm) - Depth 0.2 -Total Square (cm) 33.50 -Wound/Ulcer Outcome Not Healed -Ulcer Cleansing Rinsed/ Irrigated with Saline -Foul Odor after Cleansing No -Bioengineered Tissue No -Bleeding Controlled with Pressure -Offloading No -Treatment Response Procedure Tolerated Well [See Physician Procedure note for Specifics] Pain Scale: 0-10 Numeric [Pain] -Is Patient Pain Free? Yes Musculoskeletal: No Tenderness to Palpation of Joints or Extremities, Muscle Wasting Neurological: Sensory exam intact to light touch and pain Psych/Mental Status: Normal Affect, Appropriate Debridement Note Post-Debridement Measurements/Treatment WC - Nurse 2 - General Ulcer CM Notes Start: 06/12/20 16:01 Freq: Status: Active Protocol: Activity Type Activity Date Activity User E-Sign Co-Sign Detail Recorded Client Recorded Date Recorded By Document 06/12/20 16:19 [id number] 06/12/20 16:24 Document 06/19/20 14:36 [id number] 06/19/20 14:39 06/12/20 06/19/20 16:19 14:36 Wound Center Nurse 2 #2 LLE medial -Time 16:24 -Correct Patient Yes No -Correct Side, Site, Position Yes No -Correct Procedure Yes No -Procedure Performed Yes No -Type of Procedure Debridement -Clinical Debridement Subcutaneous -Post Debridement Size (cm) - Length 0.3 -Post Debridement Size (cm) - Width 0.8 -Post Debridement Size (cm) - Depth 0.1 -Total Square (cm) 0.24 -Wound/Ulcer Outcome Not Healed Not Healed -Ulcer Cleansing Rinsed/ Irrigated with Saline -Foul Odor after Cleansing No -Bioengineered Tissue No -Bleeding Controlled with Pressure -Offloading No -Treatment Response Procedure Tolerated Well #1 LLE -Time 14:38 -Correct Patient No Yes -Correct Side, Site, Position No Yes -Correct Procedure No Yes -Procedure Performed No Yes -Type of Procedure Debridement -Clinical Debridement Subcutaneous -Post Debridement Size (cm) - Length 6.7 -Post Debridement Size (cm) - Width 5.0 -Post Debridement Size (cm) - Depth 0.2 -Total Square (cm) 33.50 -Wound/Ulcer Outcome Not Healed Not Healed -Ulcer Cleansing Rinsed/ Irrigated with Saline -Foul Odor after Cleansing No -Bioengineered Tissue No -Bleeding Controlled with Pressure -Offloading No -Treatment Response Procedure Tolerated Well Pain Scale: 0-10 Numeric Is Patient Pain Free? Yes Yes Wound debrided: leg Laterality: Left Type of Debridement: Excisional debridement Anesthesia Used: 5% Lidocaine Gel Depth: in the subcutaneous layer Percentage of wound debrided: 100 Instrument Used: #15 blade Tissue Removed: fibrous, devitalized subcutaneous, biofilm, slough Severity: Fat Layer Exposed Amount of bleeding with debridement: Mild Bleeding Controlled with: Pressure Patient tolerated procedure well Assessment/Plan Assessment: Left leg ulcer with fat layer /partial fascial layer exposed, improving. Anterior medial and lateral leg, left -no infection, improving. C. difficile, being treated with tapered oral vancomycin under the management of infectious disease. 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 bacterial colonization with Pseudomonas treated with antibiotics under infectious disease management. Leg edema. Venous insufficiency. Peripheral vascular disease. Delayed healing. Malnutrition suspected Plan: I reviewed and discussed her case today. Debridement was performed to the satellite lesions noted today. The main ulcer debridement site has continued incorporation of the advancement healing product, amnio fill. The wound veil of Adaptic and sutures were removed today and this ulcer site was debrided in a subcutaneous excisional manner as noted in the clinical panel. Her leg was washed with soap and water. I recommend changing the dressing daily with Santyl applied nickel thickness. She was seen by infectious disease during her most recent hospital admission. She had an operating room debridement on 05-29-2020. She will now complete a 6-week course of IV vancomycin and cefepime with an end date of July 08, 2020. She will follow-up in the clinical setting with infectious disease and will have weekly labs. She will also continue on oral vancomycin for treatment of her C. difficile. I recommend she proceed with work-up for both arterial and venous disease. Venous reflux evaluation test was ordered. She was advised to avoid idle sitting and standing and to elevate the limb to control edema. If she has continued pain particularly with leg elevation, I recommend she intermittently dangles the leg as well. She seems to do well while she is resting in the hospital and she is able to elevate. She admits she is not able to do this recommendation. She was reminded that she will likely not progress in a meaningful manner if she is not able to get some of the swelling down. This is up to her to be accountable while she is at home. Fully controlling the edema is a challenge at home. I also recommend she proceeds with noninvasive arterial study. This was performed and she has already completed the additional recommended tests by vascular surgery. I reviewed Dr. Morel's plan and documentation. She additionally had an updated test performed and intervention is not recommended at this time from an arterial standpoint. Due to her overall lack of progress I recommend she returns early to see if intervention is possible. Dr. Morel was also updated on her recent hospital admission findings and plan. She understands any considered intervention is definitely not recommended while she has any type of infection or bacterial contamination. She does also have significant bilateral lower extremity monophasic waveforms with ABIs of around 0.5 bilaterally. her prealbumin was 19.8 and proper nutrition and supplementation was reviewed. To proceed with a proper control diet and nutrition supplementation to optimize healing. I answered all of her questions and explained the etiology of ulcer causes and the comprehensive wound healing plan. She understands she is not a candidate for current outpatient hyperbaric oxygen therapy due to the current local determinate coverage approved diagnoses. A second opinion at this time was also offered and is highly recommended. She defers at this time. Amputation also remains a treatment option and this will be further discussed at her follow-up. She was advised to return to clinic in 1 week. I noticed a hive located to her right lower leg and also her left arm. This does not appear to directly involve her PICC line. She is already called her primary care physician to schedule an evaluation and is waiting to hear back. I advised if she does not hear back and if this progressively causes inflammation, irritation, and concerns she should go to the now clinic. It is noted she is not aware of what insect she came in contact with. . 2020 quality measures reviewed as the following: medication and allergy reconciliation was performed. Reviewed 12-27-2019: She denies falling this past year. Reviewed 11/15/2019-pneumonia vaccination was confirmed, influenza immunization was confirmed for this current season in July 2019, advanced care plan was confirmed with living will, she is a current tobacco non user, her blood pressure is elevated over 120/80 and I recommend she follows up with her primary care physician for medical management of this. Diet and exercise benefits were also discussed for educational purposes to optimize her wound healing and medical management.
[2020-06-26 13:40] VITALS: BP 166/54; PULSE 78; RESP 18; TEMP 37.5; BMI 26.8
--- NOTE | 2020-06-26 14:59 | PCM.PN.ID ---
Subjective: Feeling better, leg improving, some soft stool, no diarrhea. No fever. - Physical Exam Vitals/I&O's: Vital Signs Temp Pulse Resp BP 99.5 F H 78 18 166/54 H 06/26/20 13:40 06/26/20 13:40 06/26/20 13:40 06/26/20 13:40 Oxygen Flow Rate (L/min) 2 Oxygen Delivery Method Room Air Weight: 63.503 kg Body Mass Index (BMI) 26.8 General: Alert, Cooperative, No apparent distress Lungs: Clear to auscultation, Normal air movement Cardiovascular: Regular rate, Regular Rhythm Abdomen: Soft, Non Tender, Non-Distended Skin: Ulcer/ Wound - L [place], improving Medical Necessity - Tobacco Use Smoking Status: Former smoker Route of nutrition/ use of supplements: [] Nutritional Intake: [] IV Site: [] [place] Catheter: [] - Assessment/Plan Antibiotics: [] Assessment/Plan: [] L [place] infected ulcer with osteo - most recent cxs with pseudomonas. Cx inpatient 05/2020 at [facility] with corynebacteria, GBS. Surg cx also showing GPR and strep. On 6 week iv vanc/cefepime, stop date 07/08, weekly labs. Leg improving, will call home health re: following lab results. 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 Plan on long taper. 4th episode of cdiff, previously treated with po vanc. Will have her stay on q2day vanc once taper continues then follow back in clinic to discuss next steps (stopping abx vs FMT vs dificid). Return to clinic in one month.
--- NOTE | 2020-06-26 16:05 | PCM.WC.PN ---
(1) Ulcer of left lower extremity with fat layer exposed Status: Chronic Current Visit: Yes Code(s): L97.922 - Non-pressure chronic ulcer of unspecified part of left lower leg with fat layer exposed (2) Localized edema Status: Chronic Current Visit: Yes Code(s): R60.0 - Localized edema (3) Osteomyelitis of left fibula Status: Suspected Current Visit: Yes Qualifiers: Code(s): M86.9 - Osteomyelitis, unspecified (4) Other specified peripheral vascular diseases Status: Chronic Current Visit: Yes Code(s): I73.89 - Other specified peripheral vascular diseases Comment: bilateral lower extremity Type of Wound Date of Service: 06/26/20 Chief Complaint: Left leg ulcer History of Wound: This 69-year-old female with significant past medical history of polio with several medical sequela sustained a left leg ulcer that dates back to 2015. She tries to elevate and uses an Candelario wrap. She was previously seen vascular surgery. She recently went for early follow-up and was advised intervention will only be considered after her infections have completely cleared up. She was recently discharged from a hospitalization at [facility] for C. difficile. At the same time she was treated for cellulitis of her left limb and during her admission she underwent operating room Versajet debridement of her wound with application of advanced wound healing product, amnio fill. There was also some bone debridement of the fibula performed and this was sent as a bone biopsy. She is currently on a 6-week course of IV antibiotics under the management of infectious disease. Her microbiology fibula results demonstrated bacterial growth and her official pathology evaluation did not confirm osteomyelitis. She has the supporting elements for osteomyelitis and has ongoing delayed healing therefore she will be treated for the full course. Her pain is better controlled this week and she has left her dressing clean, dry, and intact as advised. She is with her daughter today. She denies having diarrhea however her stools are soft. She would like to review ongoing C. difficile treatment options with Dr. De La Cruz, infectious disease specialist. Progress of Wound: Continued improvement to the satellite sites. 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 The medial satellite lesion is also improved. The adjacent skin is very hairless and atrophic. There is no purulence, erythema, streaking, odor, maceration, necrosis Wound Measurements and Assessment WC - Nurse 1 - General Ulcer Measurement Start: 06/12/20 16:01 Freq: Status: Active Protocol: Activity Type Activity Date Activity User E-Sign Co-Sign Detail Recorded Client Recorded Date Recorded By Document 06/26/20 13:40 DL [id number] 06/26/20 13:50 DL 06/26/20 13:40 Wound Center Nurse 1 [Ulcer Assessment] #2 LLE medial -Current Size (cm) - Length 0.8 -Current Size (cm) - Width 1.6 -Current Size (cm) - Depth 0.1 -Total Square Cm 1.28 -Photo Taken No -Exudate Amt Small -Exudate Type Serosanguineous -Wound Margin Thickened & Rolled Under -Granulation Amt Small (1-33%) -Granulation Quality [place] -Necrosis Amt Small (1-33%) -Necrotic Tissue Type Adherent Slough -Structure Exposed N/A -Texture (Susana-wound Skin Appearance) Scarring -Moisture (Susana-wound Skin Appearance Maceration ) -Color (Susana-wound Skin Appearance) Hemosiderin Staining -Temperature (Susana-wound Skin No Abnormality Appearance) (Pt Warm) -Tenderness on Palpation (Susana-wound Yes Skin Appearance) -Ulcer Cleansing Rinsed/ Irrigated with Saline -Foul Odor after Cleansing No -Anesthetic Used 4% Lidocaine Solution #1 LLE -Current Size (cm) - Length 7.7 -Current Size (cm) - Width 6.7 -Current Size (cm) - Depth 0.3 -Total Square Cm 51.59 -Photo Taken No -Exudate Amt Small -Exudate Type Serosanguineous -Wound Margin Thickened & Rolled Under -Granulation Amt Medium (34-66%) -Granulation Quality [place],Red -Necrosis Amt Medium (34-66%) -Necrotic Tissue Type Adherent Slough -Structure Exposed N/A -Texture (Susana-wound Skin Appearance) Scarring -Moisture (Susana-wound Skin Appearance Dry/Scaly ) -Color (Susana-wound Skin Appearance) Hemosiderin Staining -Temperature (Susana-wound Skin No Abnormality Appearance) (Pt Warm) -Tenderness on Palpation (Susana-wound Yes Skin Appearance) -Ulcer Cleansing Rinsed/ Irrigated with Saline -Foul Odor after Cleansing No -Anesthetic Used 4% Lidocaine Solution WC - Nurse 2 - General Ulcer CM Notes Start: 06/25/20 19:45 Freq: Status: Active Protocol: Activity Type Activity Date Activity User E-Sign Co-Sign Detail Recorded Client Recorded Date Recorded By Document 06/26/20 14:17 FELISHA [id number] 06/26/20 14:21 FELISHA 06/26/20 14:17 Wound Center Nurse 2 [Procedure/Treatment] #2 LLE medial -Time 14:18 -Correct Patient Yes -Correct Side, Site, Position Yes -Correct Procedure Yes -Procedure Performed Yes -Type of Procedure Debridement -Clinical Debridement Subcutaneous -Tissue Removed Subcutaneous -Post Debridement (cm) - Length 0.8 -Post Debridement (cm) - Width 1.7 -Post Debridement (cm) - Depth 0.1 -Total Square (Post) (cm) 1.36 -Area of Debridement (cm) - Length 0.8 -Area of Debridement (cm) - Width 1.7 -Total Square (Area) (cm) 1.36 -Tunneling No -Undermining/Tunneling No -Circular Undermining No -Wound/Ulcer Outcome Not Healed -Ulcer Cleansing Rinsed/ Irrigated with Saline -Foul Odor after Cleansing No -Bioengineered Tissue No -Bleeding Controlled with Pressure -Offloading No -Treatment Response Procedure Tolerated Well -Debridement - Subq, 1st 20sq cm Yes #1 LLE -Time 14:18 -Correct Patient Yes -Correct Side, Site, Position Yes -Correct Procedure Yes -Procedure Performed Yes -Type of Procedure Debridement -Clinical Debridement Subcutaneous -Tissue Removed Subcutaneous -Post Debridement (cm) - Length 7.8 -Post Debridement (cm) - Width 6.8 -Post Debridement (cm) - Depth 0.3 -Total Square (Post) (cm) 53.04 -Area of Debridement (cm) - Length 7.8 -Area of Debridement (cm) - Width 6.8 -Total Square (Area) (cm) 53.04 -Tunneling No -Undermining/Tunneling No -Circular Undermining No -Wound/Ulcer Outcome Not Healed -Ulcer Cleansing Rinsed/ Irrigated with Saline -Foul Odor after Cleansing No -Bioengineered Tissue No -Bleeding Controlled with Pressure -Offloading No -Treatment Response Procedure Tolerated Well -Debridement - Subq, 1st 20sq cm Yes -Debridement, SubQ, ea addt'l 20sq cm 2 or part thereof [See Physician Procedure note for Specifics] Pain Scale: 0-10 Numeric [Pain] -Is Patient Pain Free? Yes - Nurse 3 - General Ulcer D/C NN Start: 06/25/20 19:45 Freq: Status: Active Protocol: Activity Type Activity Date Activity User E-Sign Co-Sign Detail Recorded Client Recorded Date Recorded By Document 06/26/20 14:46 [facility] [id number] 06/26/20 14:47 [facility] 06/26/20 14:46 Wound Care Nurse 3 [Wound Dressing] #2 LLE medial -Ulcer Cleansing Rinsed/ Irrigated with Saline -Foul Odor after Cleansing No -Primary Dressing Applied Other -Other Dressing adaptic, hydrogel -Primary Dressing Covered/Secured Dry Gauze & with Roll Gauze, Secured with Tape -Other Covering pts own absorbent drsg #1 LLE -Ulcer Cleansing Rinsed/ Irrigated with Saline -Foul Odor after Cleansing No -Primary Dressing Applied Other -Other Dressing hydrogel, adaptic -Primary Dressing Covered/Secured Dry Gauze & with Roll Gauze, Secured with Tape,Other -Other Covering pts own absorbent drsg [Compression Applied] Left -Compression Wrap Candelario Wrap [Post Procedure Tolerated] -Treatment Response Procedure Tolerated Well Pain Scale: 0-10 Numeric [Pain] -Is Patient Pain Free? Yes WC - Visit Discharge [Visit Discharge Information] -Discharge Condition Stable -Ambulatory Status Wheelchair -Transportation Private Auto -Accompanied by daughter Musculoskeletal: Muscle Wasting, Tenderness Neurological: Sensory exam intact to light touch and pain Psych/Mental Status: Normal Affect, Appropriate Debridement Note Post-Debridement Measurements/Treatment - Nurse 2 - General Ulcer CM Notes Start: 06/25/20 19:45 Freq: Status: Active Protocol: Activity Type Activity Date Activity User E-Sign Co-Sign Detail Recorded Client Recorded Date Recorded By Document 06/26/20 14:17 JF [id number] 06/26/20 14:21 FELISHA 06/26/20 14:17 Wound Center Nurse 2 #2 [facility] -Time 14:18 -Correct Patient Yes -Correct Side, Site, Position Yes -Correct Procedure Yes -Procedure Performed Yes -Type of Procedure Debridement -Clinical Debridement Subcutaneous -Tissue Removed Subcutaneous -Post Debridement (cm) - Length 0.8 -Post Debridement (cm) - Width 1.7 -Post Debridement (cm) - Depth 0.1 -Total Square (Post) (cm) 1.36 -Area of Debridement (cm) - Length 0.8 -Area of Debridement (cm) - Width 1.7 -Total Square (Area) (cm) 1.36 -Tunneling No -Undermining/Tunneling No -Circular Undermining No -Wound/Ulcer Outcome Not Healed -Ulcer Cleansing Rinsed/ Irrigated with Saline -Foul Odor after Cleansing No -Bioengineered Tissue No -Bleeding Controlled with Pressure -Offloading No -Treatment Response Procedure Tolerated Well -Debridement - Subq, 1st 20sq cm Yes #1 E -Time 14:18 -Correct Patient Yes -Correct Side, Site, Position Yes -Correct Procedure Yes -Procedure Performed Yes -Type of Procedure Debridement -Clinical Debridement Subcutaneous -Tissue Removed Subcutaneous -Post Debridement (cm) - Length 7.8 -Post Debridement (cm) - Width 6.8 -Post Debridement (cm) - Depth 0.3 -Total Square (Post) (cm) 53.04 -Area of Debridement (cm) - Length 7.8 -Area of Debridement (cm) - Width 6.8 -Total Square (Area) (cm) 53.04 -Tunneling No -Undermining/Tunneling No -Circular Undermining No -Wound/Ulcer Outcome Not Healed -Ulcer Cleansing Rinsed/ Irrigated with Saline -Foul Odor after Cleansing No -Bioengineered Tissue No -Bleeding Controlled with Pressure -Offloading No -Treatment Response Procedure Tolerated Well -Debridement - Subq, 1st 20sq cm Yes -Debridement, SubQ, ea addt'l 20sq cm 2 or part thereof Pain Scale: 0-10 Numeric Is Patient Pain Free? Yes WC - Nurse 3 - General Ulcer D/C NN Start: 06/25/20 19:45 Freq: Status: Active Protocol: Activity Type Activity Date Activity User E-Sign Co-Sign Detail Recorded Client Recorded Date Recorded By Document 06/26/20 14:46 [facility] [id number] 06/26/20 14:47 [facility] 06/26/20 14:46 Wound Care Nurse 3 #2 LLE medial -Ulcer Cleansing Rinsed/ Irrigated with Saline -Foul Odor after Cleansing No -Primary Dressing Applied Other -Other Dressing adaptic, hydrogel -Primary Dressing Covered/Secured with Dry Gauze & Roll Gauze, Secured with Tape -Other Covering pts own absorbent drsg #1 LLE -Ulcer Cleansing Rinsed/ Irrigated with Saline -Foul Odor after Cleansing No -Primary Dressing Applied Other -Other Dressing hydrogel, adaptic -Primary Dressing Covered/Secured with Dry Gauze & Roll Gauze, Secured with Tape,Other -Other Covering pts own absorbent drsg Left -Compression Wrap Candelario Wrap Treatment Response Procedure Tolerated Well Pain Scale: 0-10 Numeric Is Patient Pain Free? Yes WC - Visit Discharge Discharge Condition Stable Ambulatory Status Wheelchair Transportation Private Auto Accompanied by daughter Wound debrided: leg Laterality: Left Type of Debridement: Excisional debridement Anesthesia Used: 5% Lidocaine Gel Depth: in the subcutaneous layer Percentage of wound debrided: 100 Instrument Used: #15 blade Tissue Removed: fibrous, devitalized subcutaneous, biofilm, slough Severity: Fat Layer Exposed Amount of bleeding with debridement: Mild Bleeding Controlled with: Pressure Patient tolerated procedure well Assessment/Plan Active Problems (Last Reviewed 04/11/20 @ 14:[address] Yefri Rubio MD) Localized edema (Chronic) Ulcer of left lower extremity with fat layer exposed (Chronic) Other specified peripheral vascular diseases (Chronic) bilateral lower extremity Assessment: Left leg ulcer with fat layer /partial fascial layer exposed, improving. Anterior medial and lateral leg, left -no infection, improving. C. difficile, being treated with tapered oral vancomycin under the management of infectious disease. 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 bacterial colonization with Pseudomonas treated with antibiotics under infectious disease management. Leg edema. Venous insufficiency. Peripheral vascular disease. Delayed healing. Malnutrition suspected Plan: I reviewed and discussed her case today. Debridement was performed to the satellite lesions noted today. Her leg was washed with soap and water. I recommend changing the dressing daily with Santyl applied nickel thickness. She had an operating room debridement on 05-29-2020. She will now complete a 6-week course of IV vancomycin and cefepime with an end date of July 08, 2020. She will follow-up in the clinical setting with infectious disease and will have weekly labs. Her most recent culture had pseudomonas and prior wound corynebacteria, GBS, and prior surgical wound culture with GPR and strep. For her recurrent cdiff, she continues on vanc po with a long taper due to her prior episodes. Additional treatments after that include just stopping the antiobiotics versus fecal microbiota transplantation versus dificid. She was seen today with Dr. De La Cruz. I recommend she proceed with work-up for both arterial and venous disease. Venous reflux evaluation test was ordered. She was advised to avoid idle sitting and standing and to elevate the limb to control edema. If she has continued pain particularly with leg elevation, I recommend she intermittently dangles the leg as well. I also recommend she proceeds with noninvasive arterial study. This was performed and she has already completed the additional recommended tests by vascular surgery. I reviewed Dr. Morel's plan and documentation. She additionally had an updated test performed and intervention is not recommended at this time from an arterial standpoint. Due to her overall lack of progress I recommend she returns early to see if intervention is possible. Dr. Morel was also updated on her recent hospital admission findings and plan. She understands any considered intervention is definitely not recommended while she has any type of infection or bacterial contamination. She does also have significant bilateral lower extremity monophasic waveforms with ABIs of around 0.5 bilaterally. her prealbumin was 19.8 and proper nutrition and supplementation was reviewed. To proceed with a proper control diet and nutrition supplementation to optimize healing. I answered all of her questions and explained the etiology of ulcer causes and the comprehensive wound healing plan. She understands she is not a candidate for current outpatient hyperbaric oxygen therapy due to the current local determinate coverage approved diagnoses. A second opinion at this time was also offered and is highly recommended. She defers at this time. Amputation also remains a treatment option and this will be further discussed at her follow-up. She was advised to return to clinic in 1 week. . 2019 quality measures reviewed as the following: medication and allergy reconciliation was performed. Reviewed 12-27-2019: She denies falling this past year. Reviewed 11/15/2019-pneumonia vaccination was confirmed, influenza immunization was confirmed for this current season in July 2019, advanced care plan was confirmed with living will, she is a current tobacco non user, her blood pressure is elevated over 120/80 and I recommend she follows up with her primary care physician for medical management of this. Diet and exercise benefits were also discussed for educational purposes to optimize her wound healing and medical management.
== END 2020-07-08 23:59 ==
LOC: WC 13:30
PROVIDERS: Referring Provider Podiatrist; Visit Provider Podiatrist
DX: I73.89 Other specified peripheral vascular diseases (principal); I87.2 Venous insufficiency (chronic) (peripheral); R60.0 Localized edema; Z86.12 Personal history of poliomyelitis; L97.822 Non-pressure chronic ulcer of other part of left lower leg with fat layer exposed; Z87.891 Personal history of nicotine dependence
CPT/HCPCS: 11042; 11045

== ENCOUNTER 2020-07-31 14:30 | Outpatient (RCR) | payer MEDICARE, OTHER, SELFPAY ==
[2020-07-09 00:30] VITALS: BP 166/54; PULSE 78; RESP 18; TEMP 37.5
[2020-07-10 15:26] VITALS: BP 132/66; PULSE 72; RESP 18; TEMP 37.1; BMI 26.8
--- NOTE | 2020-07-10 22:26 | PN.PCM_ITS ---
(1) Ulcer of left lower extremity with fat layer exposed Status: Chronic Code(s): L97.922 - Non-pressure chronic ulcer of unspecified part of left lower leg with fat layer exposed (2) Delayed wound healing Status: Chronic Code(s): T14.8XXD - Other injury of unspecified body region, subsequent encounter (3) Leg edema, left Status: Chronic Code(s): R60.0 - Localized edema (4) Other specified peripheral vascular diseases Status: Chronic Code(s): I73.89 - Other specified peripheral vascular diseases Comment: bilateral lower extremity (5) Venous insufficiency Status: Chronic Code(s): I87.2 - Venous insufficiency (chronic) (peripheral) Comment: left Greater saphenous vein (6) C. difficile colitis Status: Resolved Code(s): A04.72 - Enterocolitis due to Clostridium difficile, not specified as recurrent Type of Wound Date of Service: 07/10/20 Chief Complaint: Left leg ulcer History of Wound: This 69-year-old female with significant past medical history of polio with several medical sequela sustained a left leg ulcer that dates back to 2016. She tries to elevate and uses an Candelario wrap. She was previously seen vascular surgery. She recently went for early follow-up and was advised intervention will only be considered after her infections have completely cleared up. She was previously discharged from a hospitalization at [facility] for C. difficile. At the same time she was treated for cellulitis of her left limb and during her admission she underwent operating room Versajet debridement of her wound with application of advanced wound healing product, amnio fill. There was also some bone debridement of the fibula performed and this was sent as a bone biopsy. She is currently on a 6-week course of IV antibiotics under the management of infectious disease. She has completed this antibiotic course. Her microbiology fibula results demonstrated bacterial growth and her official pathology evaluation did not confirm osteomyelitis. She has the supporting elements for osteomyelitis and has on going delayed healing therefore she will be treated for the full course. She continues on a tapered oral vancomycin plan for treatment of her C. difficile. She has left her dressing clean, dry, and intact as advised. She is with her daughter today. She denies having diarrhea however her stools are soft. Progress of Wound: Continued improvement to the satellite sites. Stable with delayed healing noted - Physical Exam Vital Signs Temp Pulse Resp BP 98.8 F 72 18 132/66 H 07/10/20 15:26 07/10/20 15:26 07/10/20 15:26 07/10/20 15:26 General: Alert, Oriented x3, Cooperative, No apparent distress HEENT: Atraumatic Extremities: No cyanosis, Capillary Refill Less than 3 Seconds, Diminished Peripheral Pulses, Edema, Tenderness - Ulcer manipulation Skin: Ulcer/ Wound - No purulence, erythema, streaking, odor. Reduced depth. There is no reduction in overall ulcer size. The ulcer bed is mainly fibrous with some interspersed hematogenous granulation tissue. The adjacent skin is hairless and atrophic with some hyperpigmentation. Wound Measurements and Assessment WC - Nurse 1 - General Ulcer Measurement Start: 07/10/20 15:19 Freq: Status: Active Protocol: Activity Type Activity Date Activity User E-Sign Co-Sign Detail Recorded Client Recorded Date Recorded By Document 07/10/20 15:19 RB [id number] 07/10/20 15:26 RB 07/10/20 15:19 Wound Center Nurse 1 [Ulcer Assessment] #2 LLE medial -Combined with other wound No -Current Size (cm) - Length 0.1 -Current Size (cm) - Width 0.1 -Current Size (cm) - Depth 0.1 -Total Square Cm 0.01 -Tunneling No -Undermining/Tunneling No -Circular Undermining No -Exudate Amt Small -Exudate Type Serosanguineous -Wound Margin Flat & Intact -Granulation Amt Large (67-100%) -Granulation Quality [place] -Slough/Fibrin Yes -Necrosis Amt Small (1-33%) -Structure Exposed N/A -Texture (Susana-wound Skin Appearance) Assessed, Scarring -Moisture (Susana-wound Skin Appearance Assessed ) -Color (Susana-wound Skin Appearance) Assessed -Temperature (Susana-wound Skin No Abnormality Appearance) (Pt Warm) -Tenderness on Palpation (Susana-wound No Skin Appearance) -Ulcer Cleansing Wound Cleanser -Foul Odor after Cleansing No -Anesthetic Used 4% Lidocaine Solution,5% Lidocaine Gel #1 LLE -Combined with other wound No -Current Size (cm) - Length 6.8 -Current Size (cm) - Width 5.1 -Current Size (cm) - Depth 0.2 -Total Square Cm 34.68 -Tunneling No -Undermining/Tunneling No -Circular Undermining No -Exudate Amt Medium -Exudate Type Serosanguineous -Wound Margin Thickened & Rolled Under -Granulation Amt Medium (34-66%) -Granulation Quality [place] -Slough/Fibrin Yes -Necrosis Amt Small (1-33%) -Necrotic Tissue Type Adherent Slough -Structure Exposed N/A -Texture (Susana-wound Skin Appearance) Scarring -Moisture (Susana-wound Skin Appearance Maceration ) -Color (Susana-wound Skin Appearance) Assessed -Temperature (Susana-wound Skin No Abnormality Appearance) (Pt Warm) -Tenderness on Palpation (Susana-wound No Skin Appearance) -Ulcer Cleansing Wound Cleanser -Foul Odor after Cleansing No -Anesthetic Used 4% Lidocaine Solution,5% Lidocaine Gel [Edema Assessment] -Lower Limb Edema Present Yes -Left Calf (cm) 31.5 -Left Ankle (cm) 20.6 WC - Nurse 2 - General Ulcer CM Notes Start: 07/10/20 15:19 Freq: Status: Active Protocol: Activity Type Activity Date Activity User E-Sign Co-Sign Detail Recorded Client Recorded Date Recorded By Document 07/10/20 15:51 JF [id number] 07/10/20 15:55 07/10/20 15:51 Wound Center Nurse 2 [Procedure/Treatment] #2 LLE medial -Time 15:54 -Correct Patient Yes -Correct Side, Site, Position Yes -Correct Procedure Yes -Procedure Performed Yes -Type of Procedure Debridement -Clinical Debridement Subcutaneous -Tissue Removed Subcutaneous -Post Debridement (cm) - Length 0.5 -Post Debridement (cm) - Width 1.0 -Post Debridement (cm) - Depth 0.2 -Total Square (Post) (cm) 0.50 -Area of Debridement (cm) - Length 0.5 -Area of Debridement (cm) - Width 1.0 -Total Square (Area) (cm) 0.50 -Tunneling No -Undermining/Tunneling No -Circular Undermining No -Wound/Ulcer Outcome Not Healed -Ulcer Cleansing Rinsed/ Irrigated with Saline -Foul Odor after Cleansing No -Bioengineered Tissue No -Bleeding Controlled with Pressure -Offloading No -Treatment Response Procedure Tolerated Well -Debridement - Subq, 1st 20sq cm No #1 LLE -Time 15:51 -Correct Patient Yes -Correct Side, Site, Position Yes -Correct Procedure Yes -Procedure Performed Yes -Type of Procedure Debridement -Clinical Debridement Subcutaneous -Tissue Removed Subcutaneous -Post Debridement (cm) - Length 6.8 -Post Debridement (cm) - Width 5.2 -Post Debridement (cm) - Depth 0.2 -Total Square (Post) (cm) 35.36 -Area of Debridement (cm) - Length 6.8 -Area of Debridement (cm) - Width 5.2 -Total Square (Area) (cm) 35.36 -Tunneling No -Undermining/Tunneling No -Circular Undermining No -Wound/Ulcer Outcome Not Healed -Ulcer Cleansing Rinsed/ Irrigated with Saline -Foul Odor after Cleansing No -Bioengineered Tissue No -Bleeding Controlled with Pressure -Offloading No -Treatment Response Procedure Tolerated Well -Debridement - Subq, 1st 20sq cm Yes -Debridement, SubQ, ea addt'l 20sq cm 1 or part thereof [See Physician Procedure note for Specifics] Pain Scale: 0-10 Numeric [Pain] -Is Patient Pain Free? Yes WC - Nurse 3 - General Ulcer D/C NN Start: 07/10/20 15:19 Freq: Status: Active Protocol: Activity Type Activity Date Activity User E-Sign Co-Sign Detail Recorded Client Recorded Date Recorded By Document 07/10/20 16:08 [id number] 07/10/20 16:09 RB 07/10/20 16:08 Wound Care Nurse 3 [Wound Dressing] #2 LLE medial -Ulcer Cleansing Rinsed/ Irrigated with Saline -Primary Dressing Applied Enzymatic, NonAdherent Contact Layer -Other Dressing santyl -Primary Dressing Covered/Secured Dry Gauze & with Roll Gauze, Secured with Tape #1 LLE -Ulcer Cleansing Rinsed/ Irrigated with Saline -Primary Dressing Applied Enzymatic, NonAdherent Contact Layer -Primary Dressing Covered/Secured Dry Gauze,Dry with Gauze & Roll Gauze,Secured with Tape,Other -Other Covering santyl [Compression Applied] Left -Other candelario [Post Procedure Tolerated] -Treatment Response Procedure Tolerated Well Pain Scale: 0-10 Numeric [Pain] -Is Patient Pain Free? Yes Teaching: Wound Center [Wound Center Education] (Items with an * have Printed Materials Available- Please identify what is given to patient under the Teaching materials given to patient and caregiver Section. Control Swelling with Leg Elevation -Person Taught Patient -Teaching Method Discussion -Response to teaching Reinforcement needed WC - Visit Discharge [Visit Discharge Information] -Discharge Condition Stable -Ambulatory Status Ambulatory -Transportation Private Auto -Medication Reconcilliation completed No & provided to patient/care provider -Clinical Summary of Care Provided Yes Musculoskeletal: No Tenderness to Palpation of Joints or Extremities, Muscle Wasting Neurological: Sensory exam intact to light touch and pain Psych/Mental Status: Normal Affect, Appropriate Debridement Note Post-Debridement Measurements/Treatment WC - Nurse 2 - General Ulcer CM Notes Start: 07/10/20 15:19 Freq: Status: Active Protocol: Activity Type Activity Date Activity User E-Sign Co-Sign Detail Recorded Client Recorded Date Recorded By Document 07/10/20 15:51 JF [id number] 07/10/20 15:55 JF 07/10/20 15:51 Wound Center Nurse 2 #2 LLE medial -Time 15:54 -Correct Patient Yes -Correct Side, Site, Position Yes -Correct Procedure Yes -Procedure Performed Yes -Type of Procedure Debridement -Clinical Debridement Subcutaneous -Tissue Removed Subcutaneous -Post Debridement (cm) - Length 0.5 -Post Debridement (cm) - Width 1.0 -Post Debridement (cm) - Depth 0.2 -Total Square (Post) (cm) 0.50 -Area of Debridement (cm) - Length 0.5 -Area of Debridement (cm) - Width 1.0 -Total Square (Area) (cm) 0.50 -Tunneling No -Undermining/Tunneling No -Circular Undermining No -Wound/Ulcer Outcome Not Healed -Ulcer Cleansing Rinsed/ Irrigated with Saline -Foul Odor after Cleansing No -Bioengineered Tissue No -Bleeding Controlled with Pressure -Offloading No -Treatment Response Procedure Tolerated Well -Debridement - Subq, 1st 20sq cm No #1 LLE -Time 15:51 -Correct Patient Yes -Correct Side, Site, Position Yes -Correct Procedure Yes -Procedure Performed Yes -Type of Procedure Debridement -Clinical Debridement Subcutaneous -Tissue Removed Subcutaneous -Post Debridement (cm) - Length 6.8 -Post Debridement (cm) - Width 5.2 -Post Debridement (cm) - Depth 0.2 -Total Square (Post) (cm) 35.36 -Area of Debridement (cm) - Length 6.8 -Area of Debridement (cm) - Width 5.2 -Total Square (Area) (cm) 35.36 -Tunneling No -Undermining/Tunneling No -Circular Undermining No -Wound/Ulcer Outcome Not Healed -Ulcer Cleansing Rinsed/ Irrigated with Saline -Foul Odor after Cleansing No -Bioengineered Tissue No -Bleeding Controlled with Pressure -Offloading No -Treatment Response Procedure Tolerated Well -Debridement - Subq, 1st 20sq cm Yes -Debridement, SubQ, ea addt'l 20sq cm 1 or part thereof Pain Scale: 0-10 Numeric Is Patient Pain Free? Yes - Nurse 3 - General Ulcer D/C NN Start: 07/10/20 15:19 Freq: Status: Active Protocol: Activity Type Activity Date Activity User E-Sign Co-Sign Detail Recorded Client Recorded Date Recorded By Document 07/10/20 16:08 RB [id number] 07/10/20 16:09 RB 07/10/20 16:08 Wound Care Nurse 3 #2 LLE medial -Ulcer Cleansing Rinsed/ Irrigated with Saline -Primary Dressing Applied Enzymatic, NonAdherent Contact Layer -Other Dressing santyl -Primary Dressing Covered/Secured with Dry Gauze & Roll Gauze, Secured with Tape #1 LLE -Ulcer Cleansing Rinsed/ Irrigated with Saline -Primary Dressing Applied Enzymatic, NonAdherent Contact Layer -Primary Dressing Covered/Secured with Dry Gauze,Dry Gauze & Roll Gauze,Secured with Tape,Other -Other Covering santyl Left -Other candelario Treatment Response Procedure Tolerated Well Pain Scale: 0-10 Numeric Is Patient Pain Free? Yes Teaching: Wound Center Control Swelling with Leg Elevation -Person Taught Patient -Teaching Method Discussion -Response to teaching Reinforcement needed WC - Visit Discharge Discharge Condition Stable Ambulatory Status Ambulatory Transportation Private Auto Medication Reconcilliation completed & No provided to patient/care provider Clinical Summary of Care Provided Yes Wound debrided: leg Laterality: Left Type of Debridement: Excisional debridement Anesthesia Used: 5% Lidocaine Gel Depth: in the subcutaneous layer Percentage of wound debrided: 100 Instrument Used: #15 blade, Forceps Tissue Removed: fibrous, devitalized subcutaneous, biofilm, slough Severity: Fat Layer Exposed Amount of bleeding with debridement: Mild Bleeding Controlled with: Pressure Patient tolerated procedure well Assessment/Plan Assessment: Left leg ulcer with fat layer /partial fascial layer exposed, improving. Anterior medial and lateral leg, left -no infection, improving. C. difficile, being treated with tapered oral vancomycin under the management of infectious disease. 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 bacterial colonization with Pseudomonas treated with antibiotics under infectious disease management. Leg edema. Venous insufficiency. Peripheral vascular disease. Delayed healing. Malnutrition suspected Plan: I reviewed and discussed her case today. Debridement was performed as noted in the clinical panel today her leg was washed with soap and water. I recommend changing the dressing daily with Santyl applied nickel thickness. She had an operating room debridement on 05-29-2020. She has now completed a 6-week course of IV vancomycin and cefepime with an end date of July 08, 2020. She will follow-up in the clinical setting with infectious disease for continued oral vancomycin taper for treatment of C. difficile. Previously, her most recent culture had pseudomonas and prior wound corynebacteria, GBS, and prior surgical wound culture with GPR and strep. Venous reflux evaluation test was ordered. She was advised to avoid idle sitting and standing and to elevate the limb to control edema. If she has continued pain particularly with leg elevation, I recommend she intermittently dangles the leg as well. I also recommend she proceeds with noninvasive arterial study. This was performed and she has already completed the additional recommended tests by vascular surgery. I reviewed Dr. Morel's plan and documentation. She additionally had an updated test performed and intervention is not recommended at this time from an arterial standpoint. Due to her overall lack of progress I recommend she returns early to see if intervention is possible. Dr. Morel was also updated on her recent hospital admission findings and plan. She understands any considered intervention is definitely not recommended while she has any type of infection or bacterial contamination. She does also have significant bilateral lower extremity monophasic waveforms with ABIs of around 0.5 bilaterally. Her p realbumin was 19.8 and proper nutrition and supplementation was reviewed. To proceed with a proper control diet and nutrition supplementation to optimize healing. I answered all of her questions and explained the etiology of ulcer causes and the comprehensive wound healing plan. She was advised to return to clinic in 1 week. . 2019 quality measures reviewed as the following: medication and allergy reconciliation was performed. Reviewed 12-27-2019: She denies falling this past year. Reviewed 11/15/2019-pneumonia vaccination was confirmed, influenza immunization was confirmed for this current season in July 2019, advanced care plan was confirmed with living will, she is a current tobacco non user, her blood pressure is elevated over 120/80 and I recommend she follows up with her primary care physician for medical management of this. Diet and exercise benefits were also discussed for educational purposes to optimize her wound healing and medical management.
[2020-07-31 14:40] VITALS: BP 128/53; PULSE 90; RESP 18; TEMP 37.5; BMI 26.8
--- NOTE | 2020-07-31 15:18 | PCM.PN.ID ---
Subjective: Feeling better, foot improving. No further diarrhea, some soft stool. No fever, no n/v/d. - Physical Exam Vitals/I&O's: Vital Signs Temp Pulse Resp BP 99.5 F H 90 18 128/53 H 07/31/20 14:40 07/31/20 14:40 07/31/20 14:40 07/31/20 14:40 Oxygen Flow Rate (L/min) 2 Weight: 63.503 kg Body Mass Index (BMI) 26.8 General: Alert, Cooperative, No apparent distress Lungs: Clear to auscultation, Normal air movement Cardiovascular: Regular rate, Regular Rhythm Abdomen: Soft, Non Tender, Non-Distended Skin: Ulcer/ Wound Medical Necessity - Tobacco Use Smoking Status: Former smoker Route of nutrition/ use of supplements: [] Nutritional Intake: [] IV Site: [] [place] Catheter: [] - Assessment/Plan Antibiotics: [] Assessment/Plan: [] Discussed options with her re: recurrent cdiff. Would be candidate for FMT or dificid, but for now she wants to continue with po vanc q2day for prevention. Will refill. Return to clinic in 2 months.
--- NOTE | 2020-07-31 16:06 | PN.PCM_ITS ---
(1) Ulcer of left lower extremity with fat layer exposed Status: Chronic Current Visit: Yes Code(s): L97.922 - Non-pressure chronic ulcer of unspecified part of left lower leg with fat layer exposed (2) Delayed wound healing Status: Chronic Current Visit: Yes Code(s): T14.8XXD - Other injury of unspecified body region, subsequent encounter (3) Leg edema, left Status: Chronic Current Visit: Yes Code(s): R60.0 - Localized edema (4) Other specified peripheral vascular diseases Status: Chronic Current Visit: Yes Code(s): I73.89 - Other specified peripheral vascular diseases Comment: bilateral lower extremity (5) Venous insufficiency Status: Chronic Current Visit: Yes Code(s): I87.2 - Venous insufficiency (chronic) (peripheral) Comment: left Greater saphenous vein (6) C. difficile colitis Status: Resolved Current Visit: Yes Code(s): A04.72 - Enterocolitis due to Clostridium difficile, not specified as recurrent Type of Wound Date of Service: 07/31/20 Chief Complaint: Left leg ulcer History of Wound: This 69-year-old female with significant past medical history of polio with several medical sequela sustained a left leg ulcer that dates back to 2016. She tries to elevate and uses an Candelario wrap. She was previously seen vascular surgery. She change the dressing daily with Santyl and denies pain recently. She continues on oral vancomycin for treatment of chronic and recurrent C. difficile. She denies redness or odor at the leg. Progress of Wound: Healed satellite sites. improving main ulcer site including the quality of the base - Physical Exam Vital Signs Temp Pulse Resp BP 99.5 F H 90 18 128/53 H 07/31/20 14:40 07/31/20 14:40 07/31/20 14:40 07/31/20 14:40 General: Alert, Oriented x3, Cooperative, No apparent distress HEENT: Atraumatic Extremities: No cyanosis, Capillary Refill Less than 3 Seconds, No Calf Tenderness, Diminished Peripheral Pulses, Edema - Mild Skin: Ulcer/ Wound - No purulence, erythema, streaking, odor, infection. There is progressive granulation tissue noted in the ulcer bed which is encouraging. The adjacent skin is hairless, atrophic, and with some hyperpigmentation. There is full epithelialization at the prior satellite ulcer sites. There is no deep tissue exposure and the ulcer depth has reduced Wound Measurements and Assessment WC - Nurse 1 - General Ulcer Measurement Start: 07/10/20 15:19 Freq: Status: Active Protocol: Activity Type Activity Date Activity User E-Sign Co-Sign Detail Recorded Client Recorded Date Recorded By Document 07/31/20 14:40 DL [id number] 07/31/20 14:50 DL 07/31/20 14:40 Wound Center Nurse 1 [Ulcer Assessment] #2 LLE medial -Current Size (cm) - Length 0.2 -Current Size (cm) - Width 0.2 -Current Size (cm) - Depth 0.1 -Total Square Cm 0.04 -Photo Taken No -Exudate Amt None Present -Wound Margin Indistinct, Non -Visible -Granulation Amt Small (1-33%) -Granulation Quality [place] -Necrosis Amt Small (1-33%) -Necrotic Tissue Type Adherent Slough -Structure Exposed N/A -Texture (Susana-wound Skin Appearance) Scarring -Moisture (Susana-wound Skin Appearance Dry/Scaly ) -Color (Susana-wound Skin Appearance) Hemosiderin Staining -Temperature (Susana-wound Skin No Abnormality Appearance) (Pt Warm) -Tenderness on Palpation (Susana-wound No Skin Appearance) -Ulcer Cleansing Wound Cleanser -Foul Odor after Cleansing No -Anesthetic Used 4% Lidocaine Solution #1 LLE -Current Size (cm) - Length 7.6 -Current Size (cm) - Width 6.5 -Current Size (cm) - Depth 0.2 -Total Square Cm 49.40 -Photo Taken No -Exudate Amt Small -Exudate Type Serosanguineous -Wound Margin Distinct, Outline Attached -Granulation Amt Medium (34-66%) -Granulation Quality Red -Necrosis Amt Medium (34-66%) -Necrotic Tissue Type Adherent Slough -Texture (Susana-wound Skin Appearance) Scarring -Moisture (Susana-wound Skin Appearance Dry/Scaly ) -Color (Susana-wound Skin Appearance) Hemosiderin Staining -Temperature (Susana-wound Skin No Abnormality Appearance) (Pt Warm) -Tenderness on Palpation (Susana-wound No Skin Appearance) -Ulcer Cleansing Wound Cleanser -Foul Odor after Cleansing No -Anesthetic Used 4% Lidocaine Solution TOMÁS - Nurse 2 - General Ulcer CM Notes Start: 07/10/20 15:19 Freq: Status: Active Protocol: Activity Type Activity Date Activity User E-Sign Co-Sign Detail Recorded Client Recorded Date Recorded By Document 07/31/20 15:10 [id number] 07/31/20 15:14 07/31/20 15:10 Wound Center Nurse 2 [Procedure/Treatment] #2 LLE medial -Correct Patient No -Correct Side, Site, Position No -Correct Procedure No -Procedure Performed No -Post Debridement (cm) - Length 0 -Post Debridement (cm) - Width 0 -Post Debridement (cm) - Depth 0 -Total Square (Post) (cm) 0 -Area of Debridement (cm) - Length 0 -Area of Debridement (cm) - Width 0 -Total Square (Area) (cm) 0 -Wound/Ulcer Outcome Healed- Epithelialized #1 LLE -Time 15:12 -Correct Patient Yes -Correct Side, Site, Position Yes -Correct Procedure Yes -Procedure Performed Yes -Type of Procedure Debridement -Clinical Debridement Subcutaneous -Tissue Removed Subcutaneous -Post Debridement (cm) - Length 7.6 -Post Debridement (cm) - Width 6.6 -Post Debridement (cm) - Depth 0.2 -Total Square (Post) (cm) 50.16 -Area of Debridement (cm) - Length 7.6 -Area of Debridement (cm) - Width 6.6 -Total Square (Area) (cm) 50.16 -Tunneling No -Undermining/Tunneling No -Circular Undermining No -Wound/Ulcer Outcome Not Healed -Ulcer Cleansing Rinsed/ Irrigated with Saline -Foul Odor after Cleansing No -Bioengineered Tissue No -Bleeding Controlled with Pressure -Offloading No -Treatment Response Procedure Tolerated Well -Debridement - Subq, 1st 20sq cm Yes -Debridement, SubQ, ea addt'l 20sq cm 2 or part thereof [See Physician Procedure note for Specifics] Pain Scale: 0-10 Numeric [Pain] -Is Patient Pain Free? Yes - Nurse 3 - General Ulcer D/C NN Start: 07/10/20 15:19 Freq: Status: Active Protocol: Activity Type Activity Date Activity User E-Sign Co-Sign Detail Recorded Client Recorded Date Recorded By Document 07/31/20 15:33 [facility] [id number] 07/31/20 15:34 [facility] 07/31/20 15:33 Wound Care Nurse 3 [Wound Dressing] #1 LLE -Ulcer Cleansing Rinsed/ Irrigated with Saline -Foul Odor after Cleansing No -Primary Dressing Applied C Hydrogel ($), NonAdherent Contact Layer -Primary Dressing Covered/Secured Dry Gauze & with Roll Gauze, Secured with Tape [Compression Applied] Left -Compression Wrap Candelario Wrap [Post Procedure Tolerated] -Treatment Response Procedure Tolerated Well Pain Scale: 0-10 Numeric [Pain] -Is Patient Pain Free? Yes WC - Visit Discharge [Visit Discharge Information] -Discharge Condition Stable -Ambulatory Status Wheelchair -Transportation Private Auto -Accompanied by meagan Musculoskeletal: No Tenderness to Palpation of Joints or Extremities, Muscle Wasting, - - Compartment soft to palpate Neurological: Sensory exam intact to light touch and pain, - Psych/Mental Status: Normal Affect, Appropriate Debridement Note Post-Debridement Measurements/Treatment - Nurse 2 - General Ulcer CM Notes Start: 07/10/20 15:19 Freq: Status: Active Protocol: Activity Type Activity Date Activity User E-Sign Co-Sign Detail Recorded Client Recorded Date Recorded By Document 07/10/20 15:51 [id number] 07/10/20 15:55 Document 07/31/20 15:10 [id number] 07/31/20 15:14 07/10/20 07/31/20 15:51 15:10 Wound Center Nurse 2 #2 LLE medial -Time 15:54 -Correct Patient Yes No -Correct Side, Site, Position Yes No -Correct Procedure Yes No -Procedure Performed Yes No -Type of Procedure Debridement -Clinical Debridement Subcutaneous -Tissue Removed Subcutaneous -Post Debridement (cm) - Length 0.5 0 -Post Debridement (cm) - Width 1.0 0 -Post Debridement (cm) - Depth 0.2 0 -Total Square (Post) (cm) 0.50 0 -Area of Debridement (cm) - Length 0.5 0 -Area of Debridement (cm) - Width 1.0 0 -Total Square (Area) (cm) 0.50 0 -Tunneling No -Undermining/Tunneling No -Circular Undermining No -Wound/Ulcer Outcome Not Healed Healed- Epithelialized -Ulcer Cleansing Rinsed/ Irrigated with Saline -Foul Odor after Cleansing No -Bioengineered Tissue No -Bleeding Controlled with Pressure -Offloading No -Treatment Response Procedure Tolerated Well -Debridement - Subq, 1st 20sq cm No #1 LLE -Time 15:51 15:12 -Correct Patient Yes Yes -Correct Side, Site, Position Yes Yes -Correct Procedure Yes Yes -Procedure Performed Yes Yes -Type of Procedure Debridement Debridement -Clinical Debridement Subcutaneous Subcutaneous -Tissue Removed Subcutaneous Subcutaneous -Post Debridement (cm) - Length 6.8 7.6 -Post Debridement (cm) - Width 5.2 6.6 -Post Debridement (cm) - Depth 0.2 0.2 -Total Square (Post) (cm) 35.36 50.16 -Area of Debridement (cm) - Length 6.8 7.6 -Area of Debridement (cm) - Width 5.2 6.6 -Total Square (Area) (cm) 35.36 50.16 -Tunneling No No -Undermining/Tunneling No No -Circular Undermining No No -Wound/Ulcer Outcome Not Healed Not Healed -Ulcer Cleansing Rinsed/ Rinsed/ Irrigated with Irrigated with Saline Saline -Foul Odor after Cleansing No No -Bioengineered Tissue No No -Bleeding Controlled with Pressure Pressure -Offloading No No -Treatment Response Procedure Procedure Tolerated Well Tolerated Well -Debridement - Subq, 1st 20sq cm Yes Yes -Debridement, SubQ, ea addt'l 20sq cm 1 2 or part thereof Pain Scale: 0-10 Numeric Is Patient Pain Free? Yes Yes - Nurse 3 - General Ulcer D/C NN Start: 07/10/20 15:19 Freq: Status: Active Protocol: Activity Type Activity Date Activity User E-Sign Co-Sign Detail Recorded Client Recorded Date Recorded By Document 07/10/20 16:08 [id number] 07/10/20 16:09 RB Document 07/31/20 15:33 [facility] [id number] 07/31/20 15:34 [facility] 07/10/20 07/31/20 16:08 15:33 Wound Care Nurse 3 #2 LLE medial -Ulcer Cleansing Rinsed/ Irrigated with Saline -Primary Dressing Applied Enzymatic, NonAdherent Contact Layer -Other Dressing santyl -Primary Dressing Covered/Secured with Dry Gauze & Roll Gauze, Secured with Tape #1 LLE -Ulcer Cleansing Rinsed/ Rinsed/ Irrigated with Irrigated with Saline Saline -Foul Odor after Cleansing No -Primary Dressing Applied Enzymatic, C Hydrogel ($), NonAdherent NonAdherent Contact Layer Contact Layer -Primary Dressing Covered/Secured with Dry Gauze,Dry Dry Gauze & Gauze & Roll Roll Gauze, Gauze,Secured Secured with with Tape,Other Tape -Other Covering santyl Left -Compression Wrap Candelario Wrap -Other candelario Treatment Response Procedure Procedure Tolerated Well Tolerated Well Pain Scale: 0-10 Numeric Is Patient Pain Free? Yes Yes Teaching: Wound Center Control Swelling with Leg Elevation -Person Taught Patient -Teaching Method Discussion -Response to teaching Reinforcement needed WC - Visit Discharge Discharge Condition Stable Stable Ambulatory Status Ambulatory Wheelchair Transportation Private Auto Private Auto Accompanied by meagan Medication Reconcilliation completed & No provided to patient/care provider Clinical Summary of Care Provided Yes Wound debrided: leg Laterality: Left Type of Debridement: Excisional debridement Anesthesia Used: 5% Lidocaine Gel Depth: in the subcutaneous layer Percentage of wound debrided: 100 Instrument Used: #15 blade Tissue Removed: fibrous, devitalized subcutaneous, biofilm, slough Severity: Fat Layer Exposed Amount of bleeding with debridement: Mild Bleeding Controlled with: Pressure Patient tolerated procedure well Assessment/Plan Active Problems (Last Reviewed 04/11/20 @ 14:[address] Yefri Rubio MD) Ulcer of left lower extremity with fat layer exposed (Chronic) Delayed wound healing (Chronic) Venous insufficiency (Chronic) left Greater saphenous vein Other specified peripheral vascular diseases (Chronic) bilateral lower extremity Leg edema, left (Chronic) Assessment: Left leg ulcer with fat layer /partial fascial layer no longer exposed, improving. Anterior medial and lateral leg, left satellite lesions?healed. C. difficile, being treated with tapered oral vancomycin under the management of infectious disease. 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 bacterial colonization with Pseudomonas treated with antibiotics under infectious disease management. Leg edema. Venous insufficiency. Peripheral vascular disease. Delayed healing. Malnutrition suspected Plan: I reviewed and discussed her case today. Debridement was performed as noted in the clinical panel today her leg was washed with soap and water. I recommend changing the dressing daily with Santyl applied nickel thickness. She had an operating room debridement on 05-29-2020. She has now completed a 6- week course of IV vancomycin and cefepime with an end date of July 08, 2020. She will follow-up in the clinical setting with infectious disease for continued oral vancomycin taper for treatment of C. difficile. Previously, her most recent culture had pseudomonas and prior wound corynebacteria, GBS, and prior surgical wound culture with GPR and strep. Venous reflux evaluation test was ordered. She was advised to avoid idle sitting and standing and to elevate the limb to control edema. If she has continued pain particularly with leg elevation, I recommend she intermittently dangles the leg as well. I also recommend she proceeds with noninvasive arterial study. This was performed and she has already completed the additional recommended tests by vascular surgery. I reviewed Dr. Morel's plan and documentation. She additionally had an updated test performed and intervention is not recommended at this time from an arterial standpoint. Due to her overall lack of progress I recommend she returns early to see if intervention is possible. Dr. Morel was also updated on her recent hospital admission findings and plan. She understands any considered intervention is definitely not recommended while she has any type of infection or bacterial contamination. She does also have significant bilateral lower extremity monophasic waveforms with ABIs of around 0.5 bilaterally. Her prealbumin was 19.8 and proper nutrition and supplementation was reviewed. To proceed with a proper control diet and nutrition supplementation to optimize healing. I answered all of her questions and explained the etiology of ulcer causes and the comprehensive wound healing plan. She was advised to return to clinic in 2 weeks. . 2020 quality measures reviewed as the following: medication and allergy reconciliation was performed. Reviewed 12-27-2019: She denies falling this past year. Reviewed 11/15/2019-pneumonia vaccination was confirmed, influenza immunization was confirmed for this current season in July 2019, advanced care plan was confirmed with living will, she is a current tobacco non user, her blood pressure is elevated over 120/80 and I recommend she follows up with her primary care physician for medical management of this. Diet and exercise benefits were also discussed for educational purposes to optimize her wound healing and medical management.
== END 2020-08-07 23:59 ==
LOC: WC 14:30
PROVIDERS: Referring Provider Podiatrist; Visit Provider Podiatrist
DX: I73.89 Other specified peripheral vascular diseases (principal); I87.2 Venous insufficiency (chronic) (peripheral); R60.0 Localized edema; L97.822 Non-pressure chronic ulcer of other part of left lower leg with fat layer exposed; Z86.12 Personal history of poliomyelitis
CPT/HCPCS: 11042; 11045

== ENCOUNTER 2020-09-04 15:30 | Outpatient (RCR) | payer MEDICARE, OTHER, SELFPAY ==
[2020-08-08 00:29] VITALS: BP 128/53; PULSE 90; RESP 18; TEMP 37.5
[2020-08-21 15:05] VITALS: BP 143/67; PULSE 80; RESP 16; TEMP 36.4; BMI 26.8
--- NOTE | 2020-08-21 15:41 | PCM.WC.PN ---
(1) Localized edema Status: Chronic Code(s): R60.0 - Localized edema (2) Ulcer of left lower extremity with fat layer exposed Status: Chronic Code(s): L97.922 - Non-pressure chronic ulcer of unspecified part of left lower leg with fat layer exposed (3) Delayed wound healing Status: Chronic Code(s): T14.8XXD - Other injury of unspecified body region, subsequent encounter (4) Other specified peripheral vascular diseases Status: Chronic Code(s): I73.89 - Other specified peripheral vascular diseases Comment: bilateral lower extremity Type of Wound Date of Service: 08/21/20 Chief Complaint: Left leg ulcer History of Wound: This 69-year-old female with significant past medical history of polio with several medical sequela sustained a left leg ulcer that dates back to 2016. She tries to elevate and uses an Candelario wrap. She was previously seen vascular surgery. She change the dressing daily with Santyl and denies pain recently. She continues on oral vancomycin for treatment of chronic and recurrent C. difficile. She denies redness or odor at the leg. She denies pain. She is returned home now that her is out of the intensive care unit. She relates she has not been able to elevate her limb at all the past day and she has swelling and itching. Progress of Wound: Healed satellite sites. improving main ulcer site including the quality of the base - Physical Exam Vital Signs Temp Pulse Resp BP 97.5 F L 80 16 143/67 H 08/21/20 15:05 08/21/20 15:05 08/21/20 15:05 08/21/20 15:05 General: Alert, Oriented x3, Cooperative, No apparent distress HEENT: Atraumatic Extremities: No cyanosis, Capillary Refill Less than 3 Seconds, No Calf Tenderness - Negative Kishor and Hughes sign left, Diminished Peripheral Pulses, Edema - Increased compared to last visit Skin: Ulcer/ Wound - No purulence, distinct erythema or streaking. She does have some inflammation and edema around the ulcer site which is consistent with her recent activity level and inability to elevate. Her compartments remain soft to palpate. Wound Measurements and Assessment WC - Nurse 1 - General Ulcer Measurement Start: 08/21/20 15:05 Freq: Status: Active Protocol: Activity Type Activity Date Activity User E-Sign Co-Sign Detail Recorded Client Recorded Date Recorded By Document 08/21/20 15:05 [facility] [id number] 08/21/20 15:14 BM 08/21/20 15:05 Wound Center Nurse 1 [Ulcer Assessment] #1 LLE -Combined with other wound No -Current Size (cm) - Length 6.8 -Current Size (cm) - Width 5.6 -Current Size (cm) - Depth 0.2 -Total Square Cm 38.08 -Photo Taken No -Epithelialization None Present -Tunneling No -Undermining/Tunneling No -Circular Undermining No -Exudate Amt Large -Exudate Type Yellow/Green -Wound Margin Flat & Intact -Granulation Amt Small (1-33%) -Granulation Quality Red -Slough/Fibrin Yes -Necrosis Amt Large (67-100%) -Necrotic Tissue Type Adherent Slough -Texture (Susana-wound Skin Appearance) Assessed, Excoriation, Scarring -Moisture (Susana-wound Skin Appearance Assessed, ) Maceration -Color (Susana-wound Skin Appearance) Assessed, Erythema,Palor -Temperature (Susana-wound Skin No Abnormality Appearance) (Pt Warm) -Tenderness on Palpation (Susana-wound No Skin Appearance) -Ulcer Cleansing soapy water -Foul Odor after Cleansing No -Anesthetic Used 4% Lidocaine Solution WC - Nurse 2 - General Ulcer CM Notes Start: 08/21/20 15:05 Freq: Status: Active Protocol: Activity Type Activity Date Activity User E-Sign Co-Sign Detail Recorded Client Recorded Date Recorded By Document 08/21/20 15:33 PL [id number] 08/21/20 15:37 PL 08/21/20 15:33 Wound Center Nurse 2 [Procedure/Treatment] -Time 15:33 -Correct Patient Yes -Correct Side, Site, Position Yes -Correct Procedure Yes -Procedure Performed Yes -Type of Procedure Debridement -Clinical Debridement Subcutaneous -Tissue Removed Subcutaneous -Post Debridement (cm) - Length 6.9 -Post Debridement (cm) - Width 5.7 -Post Debridement (cm) - Depth 0.3 -Total Square (Post) (cm) 39.33 -Area of Debridement (cm) - Length 6.9 -Area of Debridement (cm) - Width 5.7 -Total Square (Area) (cm) 39.33 -Tunneling No -Undermining/Tunneling No -Circular Undermining No -Wound/Ulcer Outcome Not Healed -Bioengineered Tissue No -Debridement - Subq, 1st 20sq cm Yes -Debridement, SubQ, ea addt'l 20sq cm 1 or part thereof [See Physician Procedure note for Specifics] Pain Scale: 0-10 Numeric [Pain] -Is Patient Pain Free? Yes Musculoskeletal: No Tenderness to Palpation of Joints or Extremities, Muscle Wasting, - - Weakness consistent with her associated dropfoot Neurological: Sensory exam intact to light touch and pain Psych/Mental Status: Normal Affect, Appropriate Debridement Note Post-Debridement Measurements/Treatment WC - Nurse 2 - General Ulcer CM Notes Start: 08/21/20 15:05 Freq: Status: Active Protocol: Activity Type Activity Date Activity User E-Sign Co-Sign Detail Recorded Client Recorded Date Recorded By Document 08/21/20 15:33 PL [id number] 08/21/20 15:37 PL 08/21/20 15:33 Wound Center Nurse 2 #1 LLE -Time 15:33 -Correct Patient Yes -Correct Side, Site, Position Yes -Correct Procedure Yes -Procedure Performed Yes -Type of Procedure Debridement -Clinical Debridement Subcutaneous -Tissue Removed Subcutaneous -Post Debridement (cm) - Length 6.9 -Post Debridement (cm) - Width 5.7 -Post Debridement (cm) - Depth 0.3 -Total Square (Post) (cm) 39.33 -Area of Debridement (cm) - Length 6.9 -Area of Debridement (cm) - Width 5.7 -Total Square (Area) (cm) 39.33 -Tunneling No -Undermining/Tunneling No -Circular Undermining No -Wound/Ulcer Outcome Not Healed -Bioengineered Tissue No -Debridement - Subq, 1st 20sq cm Yes -Debridement, SubQ, ea addt'l 20sq cm 1 or part thereof Pain Scale: 0-10 Numeric Is Patient Pain Free? Yes Wound debrided: leg Laterality: Left Type of Debridement: Excisional debridement Anesthesia Used: 5% Lidocaine Gel Depth: in the subcutaneous layer Percentage of wound debrided: 100 Instrument Used: #15 blade Tissue Removed: fibrous, devitalized subcutaneous, biofilm, slough Severity: Fat Layer Exposed Amount of bleeding with debridement: Mild Bleeding Controlled with: Pressure Patient tolerated procedure well Assessment/Plan Active Problems (Last Reviewed 04/11/20 @ 14:[address] Yefri Rubio MD) Localized edema (Chronic) Ulcer of left lower extremity with fat layer exposed (Chronic) Delayed wound healing (Chronic) Other specified peripheral vascular diseases (Chronic) bilateral lower extremity Assessment: Left leg ulcer with fat layer /partial fascial layer no longer exposed, improving. Anterior medial and lateral leg, left satellite lesions?healed. C. difficile, being treated with tapered oral vancomycin under the management of infectious disease. 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 bacterial colonization with Pseudomonas treated with antibiotics under infectious disease management. Leg edema. Venous insufficiency. Peripheral vascular disease. Delayed healing. Malnutrition suspected Plan: I reviewed and discussed her case today. Debridement was performed as noted in the clinical panel today her leg was washed with soap and water. I recommend changing the dressing daily with Santyl applied nickel thickness. She had an operating room debridement on 05-29-2020. She has now completed a 6-week course of IV vancomycin and cefepime with an end date of July 08, 2020. She will follow-up in the clinical setting with infectious disease for continued oral vancomycin taper for treatment of C. difficile. Previously, her most recent culture had pseudomonas and prior wound corynebacteria, GBS, and prior surgical wound culture with GPR and strep. Venous reflux evaluation test was ordered. She was advised to avoid idle sitting and standing and to elevate the limb to control edema. If she has continued pain particularly with leg elevation, I recommend she intermittently dangles the leg as well. Compliance was discussed since she is deviated from this plan while she recently returned home. I also recommend she proceeds with noninvasive arterial study. This was performed and she has already completed the additional recommended tests by vascular surgery. I reviewed Dr. Morel's plan and documentation. She additionally had an updated test performed and intervention is not recommended at this time from an arterial standpoint. Due to her overall lack of progress I recommend she returns early to see if intervention is possible. Dr. Morel was also updated on her recent hospital admission findings and plan. She understands any considered intervention is definitely not recommended while she has any type of infection or bacterial contamination. She does also have significant bilateral lower extremity monophasic waveforms with ABIs of around 0.5 bilaterally. Her prealbumin was 19.8 and proper nutrition and supplementation was reviewed. To proceed with a proper control diet and nutrition supplementation to optimize healing. I answered all of her questions and explained the etiology of ulcer causes and the comprehensive wound healing plan. She was advised to return to clinic in 2 weeks. . 2019 quality measures reviewed as the following: medication and allergy reconciliation was performed. Reviewed 12-27-2019: She denies falling this past year. Reviewed 11/15/2019-pneumonia vaccination was confirmed, influenza immunization was confirmed for this current season in July 2019, advanced care plan was confirmed with living will, she is a current tobacco non user, her blood pressure is elevated over 120/80 and I recommend she follows up with her primary care physician for medical management of this. Diet and exercise benefits were also discussed for educational purposes to optimize her wound healing and medical management.
[2020-08-21 15:53] VITALS: BP 130/65
[2020-09-04 15:45] VITALS: BP 146/50; PULSE 84; RESP 18; TEMP 36.6; BMI 26.8
--- NOTE | 2020-09-04 16:24 | PCM.WC.PN ---
(1) Localized edema Status: Chronic Code(s): R60.0 - Localized edema (2) Ulcer of left lower extremity with fat layer exposed Status: Chronic Code(s): L97.922 - Non-pressure chronic ulcer of unspecified part of left lower leg with fat layer exposed (3) Delayed wound healing Status: Chronic Code(s): T14.8XXD - Other injury of unspecified body region, subsequent encounter (4) Other specified peripheral vascular diseases Status: Chronic Code(s): I73.89 - Other specified peripheral vascular diseases Comment: bilateral lower extremity Type of Wound Date of Service: 09/04/20 Chief Complaint: Left leg ulcer History of Wound: This 69-year-old female with significant past medical history of polio with several medical sequela sustained a left leg ulcer that dates back to 2016. She tries to elevate and uses an Candelario wrap. She was previously seen vascular surgery. She change the dressing daily with Santyl and denies pain recently. She continues on oral vancomycin for treatment of chronic and recurrent C. difficile. She denies redness or odor at the leg. She denies pain. She is returned home now that her is out of the intensive care unit. She relates she has not been able to elevate her limb at all the past week and she has swelling and itching company over and some ominous workers are working on her floor at home. However, she reports that it has improved since her last. Progress of Wound: Healed satellite sites. improving main ulcer site including the quality of the base - Physical Exam Vital Signs Temp Pulse Resp BP 98 F 84 18 146/50 H 09/04/20 15:45 09/04/20 15:45 09/04/20 15:45 09/04/20 15:45 General: Alert, Oriented x3, Cooperative, No apparent distress HEENT: Atraumatic Extremities: No cyanosis, Capillary Refill Less than 3 Seconds, No Calf Tenderness - Compartments soft to palpate, Diminished Peripheral Pulses, Edema - Moderate left limb Skin: Ulcer/ Wound - No purulence, erythema, string, odor, infection. Fibrous base with peripheral epithelialization and granulation islands, - - The skin is hairless and atrophic with some minor hyperpigmentation peripherally Wound Measurements and Assessment WC - Nurse 1 - General Ulcer Measurement Start: 08/21/20 15:05 Freq: Status: Active Protocol: Activity Type Activity Date Activity User E-Sign Co-Sign Detail Recorded Client Recorded Date Recorded By Document 09/04/20 15:45 RB [id number] 09/04/20 15:48 RB 09/04/20 15:45 Wound Center Nurse 1 [Ulcer Assessment] #1 LLE -Combined with other wound No -Current Size (cm) - Length 7.8 -Current Size (cm) - Width 6.6 -Current Size (cm) - Depth 0.2 -Total Square Cm 51.48 -Tunneling No -Undermining/Tunneling No -Circular Undermining No -Exudate Amt Medium -Exudate Type Serosanguineous -Wound Margin Flat & Intact -Granulation Amt Small (1-33%) -Granulation Quality [place] -Slough/Fibrin Yes -Necrosis Amt Large (67-100%) -Necrotic Tissue Type Adherent Slough -Structure Exposed N/A -Texture (Susana-wound Skin Appearance) Assessed -Moisture (Susana-wound Skin Appearance Maceration ) -Color (Susana-wound Skin Appearance) Assessed -Temperature (Susana-wound Skin No Abnormality Appearance) (Pt Warm) -Tenderness on Palpation (Susana-wound No Skin Appearance) -Ulcer Cleansing Wound Cleanser -Foul Odor after Cleansing No -Anesthetic Used 4% Lidocaine Solution,5% Lidocaine Gel [Edema Assessment] -Lower Limb Edema Present Yes -Left Calf (cm) 31.8 -Left Ankle (cm) 21.5 - Nurse 2 - General Ulcer CM Notes Start: 08/21/20 15:05 Freq: Status: Active Protocol: Activity Type Activity Date Activity User E-Sign Co-Sign Detail Recorded Client Recorded Date Recorded By Document 09/04/20 15:55 [id number] 09/04/20 15:59 09/04/20 15:55 Wound Center Nurse 2 [Procedure/Treatment] #1 LLE -Time 15:56 -Correct Patient Yes -Correct Side, Site, Position Yes -Correct Procedure Yes -Procedure Performed Yes -Type of Procedure Debridement -Clinical Debridement Subcutaneous -Tissue Removed Subcutaneous -Post Debridement (cm) - Length 7.8 -Post Debridement (cm) - Width 6.7 -Post Debridement (cm) - Depth 0.2 -Total Square (Post) (cm) 52.26 -Area of Debridement (cm) - Length 7.8 -Area of Debridement (cm) - Width 6.7 -Total Square (Area) (cm) 52.26 -Tunneling No -Undermining/Tunneling No -Circular Undermining No -Wound/Ulcer Outcome Not Healed -Ulcer Cleansing Rinsed/ Irrigated with Saline -Foul Odor after Cleansing No -Bioengineered Tissue No -Bleeding Controlled with Pressure -Offloading No -Treatment Response Procedure Tolerated Well -Debridement - Subq, 1st 20sq cm Yes -Debridement, SubQ, ea addt'l 20sq cm 2 or part thereof [See Physician Procedure note for Specifics] Pain Scale: 0-10 Numeric [Pain] -Is Patient Pain Free? Yes - Nurse 3 - General Ulcer D/C NN Start: 08/21/20 15:05 Freq: Status: Active Protocol: Activity Type Activity Date Activity User E-Sign Co-Sign Detail Recorded Client Recorded Date Recorded By Document 09/04/20 16:01 [id number] 09/04/20 16:02 09/04/20 16:01 Wound Care Nurse 3 [Wound Dressing] #1 LLE -Ulcer Cleansing Rinsed/ Irrigated with Saline -Foul Odor after Cleansing No -Other Dressing colagenase santyl -Primary Dressing Covered/Secured Dry Gauze & with Roll Gauze, Secured with Tape [Compression Applied] Left -Compression Wrap Candelario Wrap Pain Scale: 0-10 Numeric [Pain] -Is Patient Pain Free? 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 Neurological: Sensory exam intact to light touch and pain Psych/Mental Status: Normal Affect, Appropriate Debridement Note Post-Debridement Measurements/Treatment - Nurse 2 - General Ulcer CM Notes Start: 08/21/20 15:05 Freq: Status: Active Protocol: Activity Type Activity Date Activity User E-Sign Co-Sign Detail Recorded Client Recorded Date Recorded By Document 08/21/20 15:33 PL [id number] 08/21/20 15:37 PL Document 09/04/20 15:55 [id number] 09/04/20 15:59 08/21/20 09/04/20 15:33 15:55 Wound Center Nurse 2 #1 LLE -Time 15:33 15:56 -Correct Patient Yes Yes -Correct Side, Site, Position Yes Yes -Correct Procedure Yes Yes -Procedure Performed Yes Yes -Type of Procedure Debridement Debridement -Clinical Debridement Subcutaneous Subcutaneous -Tissue Removed Subcutaneous Subcutaneous -Post Debridement (cm) - Length 6.9 7.8 -Post Debridement (cm) - Width 5.7 6.7 -Post Debridement (cm) - Depth 0.3 0.2 -Total Square (Post) (cm) 39.33 52.26 -Area of Debridement (cm) - Length 6.9 7.8 -Area of Debridement (cm) - Width 5.7 6.7 -Total Square (Area) (cm) 39.33 52.26 -Tunneling No No -Undermining/Tunneling No No -Circular Undermining No No -Wound/Ulcer Outcome Not Healed Not Healed -Ulcer Cleansing Rinsed/ Irrigated with Saline -Foul Odor after Cleansing No -Bioengineered Tissue No No -Bleeding Controlled with Pressure -Offloading No -Treatment Response Procedure Tolerated Well -Debridement - Subq, 1st 20sq cm Yes Yes -Debridement, SubQ, ea addt'l 20sq cm 1 2 or part thereof Pain Scale: 0-10 Numeric Is Patient Pain Free? Yes Yes - Nurse 3 - General Ulcer D/C NN Start: 08/21/20 15:05 Freq: Status: Active Protocol: Activity Type Activity Date Activity User E-Sign Co-Sign Detail Recorded Client Recorded Date Recorded By Document 08/21/20 15:53 RB [id number] 08/21/20 15:55 RB Document 09/04/20 16:01 [id number] 09/04/20 16:02 08/21/20 09/04/20 15:53 16:01 Wound Care Nurse 3 #1 LLE -Ulcer Cleansing Rinsed/ Rinsed/ Irrigated with Irrigated with Saline Saline -Foul Odor after Cleansing No -Primary Dressing Applied NonAdherent Contact Layer -Other Dressing hydrogel, abd, colagenase gauze, candelario santyl -Primary Dressing Covered/Secured with Dry Gauze,Dry Dry Gauze & Gauze & Roll Roll Gauze, Gauze,Secured Secured with with Tape Tape Left -Compression Wrap Candelario Wrap Treatment Response Procedure Tolerated Well Vital Signs Blood Pressure (90/60-120/80) 130/65 H Blood Pressure Mean (mm Hg) 86 Source Monitor Position Semi-Fowlers Blood Pressure Location Left Arm Pain Scale: 0-10 Numeric Is Patient Pain Free? Yes Yes Teaching: Wound Center Control Swelling with Leg Elevation -Person Taught Patient -Teaching Method Discussion -Response to teaching Verbalize understanding WC - Visit Discharge Discharge Condition Stable Stable Ambulatory Status Wheelchair Ambulatory, Wheelchair Transportation Private Auto Private Auto Accompanied by daughter Medication Reconcilliation completed & No Yes provided to patient/care provider Clinical Summary of Care Provided Yes Yes Wound debrided: leg Laterality: Left Type of Debridement: Excisional debridement Anesthesia Used: 5% Lidocaine Gel Depth: in the subcutaneous layer Percentage of wound debrided: 100 Instrument Used: 5mm curette, #15 blade Tissue Removed: fibrous, devitalized subcutaneous, biofilm, slough Severity: Fat Layer Exposed Amount of bleeding with debridement: Mild Bleeding Controlled with: Pressure Patient tolerated procedure well - Additional crosshatching was performed to aid Santyl permeation Assessment/Plan Active Problems (Last Reviewed 04/11/20 @ 14:[address] Yefri Rubio MD) Localized edema (Chronic) Ulcer of left lower extremity with fat layer exposed (Chronic) Delayed wound healing (Chronic) Other specified peripheral vascular diseases (Chronic) bilateral lower extremity Assessment: Left leg ulcer with fat layer /partial fascial layer no longer exposed, improving. Anterior medial and lateral leg, left satellite lesions?healed. C. difficile, being treated with tapered oral vancomycin under the management of infectious disease. 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 bacterial colonization with Pseudomonas treated with antibiotics under infectious disease management. Leg edema. Venous insufficiency. Peripheral vascular disease. Delayed healing. Malnutrition suspected Plan: I reviewed and discussed her case today. Debridement was performed as noted in the clinical panel today her leg was washed with soap and water. I recommend changing the dressing daily with Santyl applied nickel thickness. She had an operating room debridement on 05-29-2020. She has now completed a 6-week course of IV vancomycin and cefepime with an end date of July 08, 2020. She will follow-up in the clinical setting with infectious disease for continued oral vancomycin taper for treatment of C. difficile. Previously, her most recent culture had pseudomonas and prior wound corynebacteria, GBS, and prior surgical wound culture with GPR and strep. Venous reflux evaluation test was ordered. She was advised to avoid idle sitting and standing and to elevate the limb to control edema. If she has continued pain particularly with leg elevation, I recommend she intermittently dangles the leg as well. Compliance was discussed since she is deviated from this plan while she recently returned home. I also recommend she proceeds with noninvasive arterial study. This was performed and she has already completed the additional recommended tests by vascular surgery. I reviewed Dr. Morel's plan and documentation. She additionally had an updated test performed and intervention is not recommended at this time from an arterial standpoint. Due to her overall lack of progress I recommend she returns early to see if intervention is possible. Dr. Morel was also updated on her recent hospital admission findings and plan. She understands any considered intervention is definitely not recommended while she has any type of infection or bacterial contamination. She does also have significant bilateral lower extremity monophasic waveforms with ABIs of around 0.5 bilaterally. Her prealbumin was 19.8 and proper nutrition and supplementation was reviewed. To proceed with a proper control diet and nutrition supplementation to optimize healing. I answered all of her questions and explained the etiology of ulcer causes and the comprehensive wound healing plan. She was advised to return to clinic in 2 weeks. . 2020 quality measures reviewed as the following: medication and allergy reconciliation was performed. Reviewed 12-27-2019: She denies falling this past year. Reviewed 11/15/2019-pneumonia vaccination was confirmed, influenza immunization was confirmed for this current season in July 2019, advanced care plan was confirmed with living will, she is a current tobacco non user, her blood pressure is elevated over 120/80 and I recommend she follows up with her primary care physician for medical management of this. Diet and exercise benefits were also discussed for educational purposes to optimize her wound healing and medical management.
== END 2020-09-07 23:59 ==
LOC: WC 15:30
PROVIDERS: Referring Provider Podiatrist; Visit Provider Podiatrist
DX: I73.89 Other specified peripheral vascular diseases (principal); R60.0 Localized edema; L97.822 Non-pressure chronic ulcer of other part of left lower leg with fat layer exposed; Z86.12 Personal history of poliomyelitis; I87.2 Venous insufficiency (chronic) (peripheral)
CPT/HCPCS: 11042; 11045

== ENCOUNTER 2020-10-02 14:45 | Outpatient (RCR) | payer MEDICARE, OTHER, SELFPAY ==
[2020-09-08 00:18] VITALS: BP 146/50; PULSE 84; RESP 18; TEMP 36.6
--- NOTE | 2020-09-13 09:50 | WC ---
Daughter, Tasia called and left a voicemail message concerned of s/s of infection for patient's leg wound. Called her back on her voicemail and reviewed what s/s of infection is and what to look for. With the weekend coming up, mentioned that if the patient has any symptoms to report to an urgent care for attention and to call back and schedule an appt for next with Dr Cooper at wound center. Explained the importance of handwashing before and after wound care and to wear gloves if possible. Advised her to call back with any further questions.
[2020-09-18 14:52] VITALS: BP 148/48; PULSE 82; RESP 18; TEMP 36.9; BMI 26.8
[2020-09-18 15:25] VITALS: BP 146/50
[2020-09-18 16:26] LABS: Absolute Lymphocyte Count 2.32 X10^3/uL (0.83-4.51); Absolute Neutrophil Count 3.8 X10^3/uL (2.0-7.7); Basophil# 0.07 X10^3/uL; Eosinophil# 0.39 X10^3/uL; Eosinophils% 5.5 % (0-5); Hematocrit 39.2 % (37-47); Hemoglobin 12.6 g/dL (12.0-15.0); Lymphocyte # 2.32 X10^3/ul (4.0); Lymphocyte % 32.5 % (19-41); Mean Corp Hgb Conc 32.1 g/dL (32-36); Mean Corpuscular Hgb 28.9 pg (27.0-32.0); Mean Corpuscular Volume 89.9 fL (81-99); Mean Platelet Vol. 8.9 fl (6.2-12.0); Monocyte# 0.56 X10^3/uL; Monocyte% 7.9 % (0-10); NRBC Flagged by Analyzer 0 % (0-5); Neutrophil # 3.77 X10^3/uL (2.7-7.7); Neutrophil % 52.8 % (47-70); Platelet Count 279 K/mm3 (150-450); RBC Distribution Width CV 13.7 % (11.6-14.6); RBC Distribution Width SD 45.1 fl (35.1-43.9); Red Blood Count 4.36 M/mm3 (4.2-5.4); White Blood Count 7.1 K/mm3 (4.4-11.0)
[2020-09-18 16:41] LABS: ALB/GLOB Ratio 0.8 RATIO (0.9-2.4); AST(SGOT) 17 U/L (15-37); Alanine Aminotransfer ALT/SGPT 19 U/L (13-56); Albumin, Serum 3.4 g/dL (3.2-5.0); Alkaline Phosphatase 103 U/L (45-117); Anion Gap 5 (5-15); BUN 10 mg/dL (7-18); BUN/Creat Ratio 15.9 RATIO (10-20); Chloride 109 mmol/L (98-107); Creatinine, Serum 0.63 mg/dL (0.55-1.02); EST Glomerular Filtration Rate 99 mL/min (>60); Est Glom Filt Rate - Afr Amer 120 mL/min (>60); Estimated Creatinine Clearance 51.73 ml/min; Globulin 4.5 g/dL (2.2-4.2); Glucose 76 mg/dL (74-106); Potassium 3.9 mmol/L (3.5-5.1); Protein, Total 7.9 g/dL (6.4-8.2); Sodium Level 141 mmol/L (136-145)
[2020-09-18 16:46] LABS: Erythrocyte Sedimentation Rate 51 mm/hr (0-30)
[2020-09-18 20:30] LABS: M R Staph aureus DNA By PCR Negative (Negative); Probe Check PASS; Staph aureus DNA By PCR POSITIVE (Negative)
--- NOTE | 2020-09-18 23:18 | PN.PCM_ITS ---
(1) Cellulitis of left lower extremity Status: Acute Code(s): L03.116 - Cellulitis of left lower limb (2) Ulcer of left lower extremity with fat layer exposed Status: Chronic Code(s): L97.922 - Non-pressure chronic ulcer of unspecified part of left lower leg with fat layer exposed (3) Delayed wound healing Status: Chronic Code(s): T14.8XXD - Other injury of unspecified body region, subsequent encounter (4) Left leg pain Status: Chronic Code(s): M79.605 - Pain in left leg (5) C. difficile colitis Status: Chronic Code(s): A04.72 - Enterocolitis due to Clostridium difficile, not specified as recurrent Type of Wound Date of Service: 09/18/20 Chief Complaint: Left leg ulcer History of Wound: This 69-year-old female with significant past medical history of polio with several medical sequela sustained a left leg ulcer that dates back to 2016. She tries to elevate and uses an Candelario wrap. She was previously seen vascular surgery. She change the dressing daily with Santyl and has progressive pain returned recently. She continues on oral vancomycin for treatment of chronic and recurrent C. difficile once every three days. About 5 days ago she developed odor, redness, increased drainage and infection. She called infectious disease physician, Dr. De La Cruz who started her on 2 antibiotics for her leg wound. She was also advised to increase her oral vancomycin to daily use.since she has been on the antibiotic she relates significant reduction in odor. She admits she is having a very hard time keeping her swelling under control because she is unable to elevate. She is with her daughter today in clinic. Progress of Wound: Reopened medial satellite ulcer. Fibrous progression of ulcer without notable increase in size. Cellulitis - Physical Exam Vital Signs Temp Pulse Resp BP 98.5 F 82 18 146/50 H 09/18/20 14:52 09/18/20 14:52 09/18/20 14:52 09/18/20 15:25 General: Alert, Oriented x3, Cooperative, No apparent distress HEENT: Atraumatic Extremities: No cyanosis, Capillary Refill Less than 3 Seconds, No Calf Tenderness, Diminished Peripheral Pulses, Edema Skin: Ulcer/ Wound - No purulence or odor or streaking noted today. There is some risk of periulcer inflammation noted. No bogginess or fluctuance. Compartments remain soft. The ulcer bed is very fibrous and upon debridement there is about 50% granulation tissue. There is also a return skin discontinuity medially, - - Skin is atrophic and hairless. There is no deep tissue exposure necrosis or maceration Wound Measurements and Assessment - Nurse 1 - General Ulcer Measurement Start: 09/18/20 14:52 Freq: Status: Active Protocol: Activity Type Activity Date Activity User E-Sign Co-Sign Detail Recorded Client Recorded Date Recorded By Document 09/18/20 14:52 [facility] [id number] 09/18/20 14:57 [facility] 09/18/20 14:52 Wound Center Nurse 1 [Ulcer Assessment] #1 LLE -Combined with other wound No -Current Size (cm) - Length 8.1 -Current Size (cm) - Width 6 -Current Size (cm) - Depth 0.3 -Total Square Cm 48.6 -Photo Taken No -Epithelialization None Present -Tunneling No -Undermining/Tunneling No -Circular Undermining No -Exudate Amt Large -Exudate Type Serosanguineous -Wound Margin Distinct, Outline Attached -Granulation Amt Small (1-33%) -Granulation Quality Red -Slough/Fibrin Yes -Necrosis Amt Large (67-100%) -Necrotic Tissue Type Adherent Slough -Texture (Susana-wound Skin Appearance) Assessed, Scarring -Moisture (Susana-wound Skin Appearance Assessed, ) Maceration -Color (Susana-wound Skin Appearance) Assessed, Erythema -Temperature (Susana-wound Skin No Abnormality Appearance) (Pt Warm) -Tenderness on Palpation (Susana-wound No Skin Appearance) -Ulcer Cleansing soapy water -Foul Odor after Cleansing No -Anesthetic Used 5% Lidocaine Gel - Nurse 2 - General Ulcer CM Notes Start: 09/18/20 14:52 Freq: Status: Active Protocol: Activity Type Activity Date Activity User E-Sign Co-Sign Detail Recorded Client Recorded Date Recorded By Document 09/18/20 15:10 [id number] 09/18/20 15:12 09/18/20 15:10 Wound Center Nurse 2 [Procedure/Treatment] -Time 15:10 -Correct Patient Yes -Correct Side, Site, Position Yes -Correct Procedure Yes -Procedure Performed Yes -Type of Procedure Debridement -Clinical Debridement Subcutaneous -Tissue Removed Subcutaneous -Post Debridement (cm) - Length 8.2 -Post Debridement (cm) - Width 6.1 -Post Debridement (cm) - Depth 0.3 -Total Square (Post) (cm) 50.02 -Area of Debridement (cm) - Length 8.2 -Area of Debridement (cm) - Width 6.1 -Total Square (Area) (cm) 50.02 -Tunneling No -Undermining/Tunneling No -Circular Undermining No -Wound/Ulcer Outcome Not Healed -Ulcer Cleansing Rinsed/ Irrigated with Saline -Foul Odor after Cleansing No -Bioengineered Tissue No -Bleeding Controlled with Pressure -Offloading No -Treatment Response Procedure Tolerated Well -Debridement - Subq, 1st 20sq cm Yes -Debridement, SubQ, ea addt'l 20sq cm 2 or part thereof [See Physician Procedure note for Specifics] Pain Scale: 0-10 Numeric [Pain] -Is Patient Pain Free? Yes - Nurse 3 - General Ulcer D/C NN Start: 09/18/20 14:52 Freq: Status: Active Protocol: Activity Type Activity Date Activity User E-Sign Co-Sign Detail Recorded Client Recorded Date Recorded By Document 09/18/20 15:25 [id number] 09/18/20 15:26 RB 09/18/20 15:25 Wound Care Nurse 3 [Wound Dressing] #1 LLE -Ulcer Cleansing Rinsed/ Irrigated with Saline -Primary Dressing Applied NonAdherent Contact Layer -Other Dressing saline moistened gauze -Primary Dressing Covered/Secured Dry Gauze,Dry with Gauze & Roll Gauze,Secured with Tape [Post Procedure Tolerated] -Treatment Response Procedure Tolerated Well Vital Signs [Blood Pressure] -Blood Pressure (90/60-120/80) 146/50 H -Blood Pressure Mean (mm Hg) 82 -Source Monitor -Position Semi-Fowlers -Blood Pressure Location Left Arm Pain Scale: 0-10 Numeric [Pain] -Is Patient Pain Free? Yes Teaching: Wound Center [Wound Center Education] (Items with an * have Printed Materials Available- Please identify what is given to patient under the Teaching materials given to patient and caregiver Section. 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 Neurological: Sensory exam intact to light touch and pain - Hypersensitivity to touch Psych/Mental Status: Normal Affect, Appropriate, Agitated, Anxious Debridement Note Post-Debridement Measurements/Treatment WC - Nurse 2 - General Ulcer CM Notes Start: 09/18/20 14:52 Freq: Status: Active Protocol: Activity Type Activity Date Activity User E-Sign Co-Sign Detail Recorded Client Recorded Date Recorded By Document 09/18/20 15:10 [email or web address] [id number] 09/18/20 15:12 JF 09/18/20 15:10 Wound Center Nurse 2 #1 LLE -Time 15:10 -Correct Patient Yes -Correct Side, Site, Position Yes -Correct Procedure Yes -Procedure Performed Yes -Type of Procedure Debridement -Clinical Debridement Subcutaneous -Tissue Removed Subcutaneous -Post Debridement (cm) - Length 8.2 -Post Debridement (cm) - Width 6.1 -Post Debridement (cm) - Depth 0.3 -Total Square (Post) (cm) 50.02 -Area of Debridement (cm) - Length 8.2 -Area of Debridement (cm) - Width 6.1 -Total Square (Area) (cm) 50.02 -Tunneling No -Undermining/Tunneling No -Circular Undermining No -Wound/Ulcer Outcome Not Healed -Ulcer Cleansing Rinsed/ Irrigated with Saline -Foul Odor after Cleansing No -Bioengineered Tissue No -Bleeding Controlled with Pressure -Offloading No -Treatment Response Procedure Tolerated Well -Debridement - Subq, 1st 20sq cm Yes -Debridement, SubQ, ea addt'l 20sq cm 2 or part thereof Pain Scale: 0-10 Numeric Is Patient Pain Free? Yes - Nurse 3 - General Ulcer D/C NN Start: 09/18/20 14:52 Freq: Status: Active Protocol: Activity Type Activity Date Activity User E-Sign Co-Sign Detail Recorded Client Recorded Date Recorded By Document 09/18/20 15:25 RB [id number] 09/18/20 15:26 RB 09/18/20 15:25 Wound Care Nurse 3 #1 LLE -Ulcer Cleansing Rinsed/ Irrigated with Saline -Primary Dressing Applied NonAdherent Contact Layer -Other Dressing saline moistened gauze -Primary Dressing Covered/Secured with Dry Gauze,Dry Gauze & Roll Gauze,Secured with Tape Treatment Response Procedure Tolerated Well Vital Signs Blood Pressure (90/60-120/80) 146/50 H Blood Pressure Mean (mm Hg) 82 Source Monitor Position Semi-Fowlers Blood Pressure Location Left Arm Pain Scale: 0-10 Numeric Is Patient Pain Free? Yes Teaching: Wound Center Control Swelling with Leg Elevation -Person Taught Patient -Teaching Method Discussion -Response to teaching Verbalize understanding WC - Visit Discharge Discharge Condition Stable Ambulatory Status Wheelchair Transportation Private Auto Medication Reconcilliation completed & No provided to patient/care provider Clinical Summary of Care Provided Yes Wound debrided: leg Laterality: Left Type of Debridement: Excisional debridement Anesthesia Used: 5% Lidocaine Gel Depth: in the subcutaneous layer Percentage of wound debrided: 100 Instrument Used: #15 blade Tissue Removed: fibrous, devitalized subcutaneous tissue, biofilm, slough Severity: Fat Layer Exposed Amount of bleeding with debridement: Mild Bleeding Controlled with: Pressure Patient tolerated procedure well Assessment/Plan Active Problems (Last Reviewed 04/11/20 @ 14:[address] Yefri Rubio MD) Cellulitis of left lower extremity (Acute) Ulcer of left lower extremity with fat layer exposed (Chronic) Delayed wound healing (Chronic) Left leg pain (Chronic) C. difficile colitis (Chronic) Assessment: Left leg ulcer with fat layer /partial fascial layer no longer exposed, improving. Recent cellulitis progression left lower extremity. Anterior medial left satellite lesions, returned. C. difficile, being treated with tapered oral vancomycin under the management of infectious disease. 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 bacterial colonization with Pseudomonas treated with antibiotics under infectious disease management -medically treated. Leg edema. Venous insufficiency. Peripheral vascular disease. Delayed healing. Malnutrition suspected Plan: I reviewed and discussed her case today. Debridement was performed as noted in the clinical panel today her leg was washed with soap and water. I recommend changing the dressing daily with Dakin wet-to-dry dressing. She is concerned about painful adhesions with dressing changes and she was advised it is okay to apply a thin layer of Adaptic directly over the wound. Do not appreciate any purulence or systemic illness on exam today and she was advised to continue with oral antibiotic outpatient management. Infectious disease recommendations are appreciated. She relates she was started on 2 antibiotics but does not recall the exact names. This information would be requested. Updated wound culture was obtained today. She also was advised to continue with oral vancomycin as advised by infectious disease specialist also. She had an operating room debridement on 05-29-2020. She has now completed a 6-week course of IV vancomycin and cefepime with an end date of July 08, 2020. Previously, her most recent culture had pseudomonas and prior wound corynebacteria, GBS, and prior surgical wound culture with GPR and strep. Venous reflux evaluation test was ordered. She was advised to avoid idle sitting and standing and to elevate the limb to control edema. If she has continued pain particularly with leg elevation, I recommend she intermittently dangles the leg as well. Compliance was discussed since she is deviated from this plan while she recently returned home. I also recommend she proceeds with noninvasive arterial study. This was performed and she has already completed the additional recommended tests by vascular surgery. I reviewed Dr. Morel's plan and documentation. She additionally had an updated test performed and intervention is not recommended at this time from an arterial standpoint. Due to her overall lack of progress I recommend she returns early to see if intervention is possible. Dr. Morel was also updated on her recent hospital admission findings and plan. She understands any considered intervention is definitely not recommended while she has any type of infection or bacterial contamination. She does also have significant bilateral lower extremity monophasic waveforms with ABIs of around 0.5 bilaterally. Her prealbumin was 19.8 and proper nutrition and supplementation was reviewed. To proceed with a proper control diet and nutrition supplementation to optimize healing. I answered all of her questions and explained the etiology of ulcer causes and the comprehensive wound healing plan. She was advised to return to clinic in 1 weeks. . 2020 quality measures reviewed as the following: medication and allergy reconciliation was performed. Reviewed 12-27-2019: She denies falling this past year. Reviewed 11/15/2019-pneumonia vaccination was confirmed, influenza immunization was confirmed for this current season in July 2019, advanced care plan was confirmed with living will, she is a current tobacco non user, her blood pressure is elevated over 120/80 and I recommend she follows up with her primary care physician for medical management of this. Diet and exercise benefits were also discussed for educational purposes to optimize her wound healing and medical management.
[2020-09-25 15:21] VITALS: BP 147/78; PULSE 84; RESP 18; TEMP 36.2; BMI 26.8
--- NOTE | 2020-09-25 19:38 | PCM.WC.PN ---
(1) Cellulitis of left lower extremity Status: Acute Code(s): L03.116 - Cellulitis of left lower limb (2) Ulcer of left lower extremity with fat layer exposed Status: Chronic Code(s): L97.922 - Non-pressure chronic ulcer of unspecified part of left lower leg with fat layer exposed (3) Delayed wound healing Status: Chronic Code(s): T14.8XXD - Other injury of unspecified body region, subsequent encounter (4) Left leg pain Status: Chronic Code(s): M79.605 - Pain in left leg (5) C. difficile colitis Status: Chronic Code(s): A04.72 - Enterocolitis due to Clostridium difficile, not specified as recurrent Type of Wound Date of Service: 09/25/20 Chief Complaint: Left leg ulcer History of Wound: This 69-year-old female with significant past medical history of polio with several medical sequela sustained a left leg ulcer that dates back to 2016. She tries to elevate and uses an Candelario wrap. She was previously seen vascular surgery. She has recently been changing the dressing with Dakin's solution wet-to-dry. She continues on oral vancomycin for treatment of chronic and recurrent C. difficile once every three days. She has been taking oral antibiotics as advised by infectious disease specialist including cefdinir and doxycycline for ten days. Flagyl was also recently started and she has not picked up this prescription yet. She continues on vancomycin for her C. difficile chronic treatment in a tapering manner. She also complains of a yeast infection at this time. She is with her sister today. Progress of Wound: Reopened medial satellite ulcer. Fibrous progression of ulcer without notable increase in size. Cellulitis reducing - Physical Exam Vital Signs Temp Pulse Resp BP 97.1 F L 84 18 147/78 H 09/25/20 15:21 09/25/20 15:21 09/25/20 15:21 09/25/20 15:21 General: Alert, Oriented x3, Cooperative HEENT: Atraumatic Extremities: No cyanosis, Capillary Refill Less than 3 Seconds, No Calf Tenderness, Diminished Peripheral Pulses, Edema Skin: Ulcer/ Wound - No purulence, erythema, string, odor, infection. The ulcer appears to be very superficial at this time. There is resolved periulcer inflammation and erythema. Edema is about the same or reduced mildly compared to last week. The ulcer bed is very fibrous about 95%. No bogginess or fluctuance Wound Measurements and Assessment WC - Nurse 1 - General Ulcer Measurement Start: 09/18/20 14:52 Freq: Status: Active Protocol: Activity Type Activity Date Activity User E-Sign Co-Sign Detail Recorded Client Recorded Date Recorded By Document 09/25/20 15:21 WV [id number] 09/25/20 15:27 WV 09/25/20 15:21 Wound Center Nurse 1 [Ulcer Assessment] #1 LLE -Current Size (cm) - Length 7.0 -Current Size (cm) - Width 5.9 -Current Size (cm) - Depth 0.1 -Total Square Cm 41.30 -Wound Margin Flat & Intact -Slough/Fibrin Yes -Necrosis Amt Large (67-100%) -Necrotic Tissue Type Adherent Slough -Texture (Susana-wound Skin Appearance) Assessed -Moisture (Susana-wound Skin Appearance Assessed ) -Color (Susana-wound Skin Appearance) Assessed -Temperature (Susana-wound Skin No Abnormality Appearance) (Pt Warm) -Tenderness on Palpation (Susana-wound Yes Skin Appearance) -Ulcer Cleansing Rinsed/ Irrigated with Saline -Foul Odor after Cleansing No -Anesthetic Used 4% Lidocaine Solution [Edema Assessment] -Lower Limb Edema Present Yes -Left Calf (cm) 36 -Left Ankle (cm) 22.5 WC - Nurse 2 - General Ulcer CM Notes Start: 09/18/20 14:52 Freq: Status: Active Protocol: Activity Type Activity Date Activity User E-Sign Co-Sign Detail Recorded Client Recorded Date Recorded By Document 09/25/20 15:41 [id number] 09/25/20 15:43 09/25/20 15:41 Wound Center Nurse 2 [Procedure/Treatment] #1 LLE -Time 15:42 -Correct Patient Yes -Correct Side, Site, Position Yes -Correct Procedure Yes -Procedure Performed Yes -Type of Procedure Debridement -Clinical Debridement Subcutaneous -Tissue Removed Subcutaneous -Post Debridement (cm) - Length 7.0 -Post Debridement (cm) - Width 6.0 -Post Debridement (cm) - Depth 0.2 -Total Square (Post) (cm) 42.00 -Area of Debridement (cm) - Length 7.0 -Area of Debridement (cm) - Width 6.0 -Total Square (Area) (cm) 42.00 -Tunneling No -Undermining/Tunneling No -Circular Undermining No -Wound/Ulcer Outcome Not Healed -Ulcer Cleansing Rinsed/ Irrigated with Saline -Foul Odor after Cleansing No -Bioengineered Tissue No -Bleeding Controlled with Pressure -Offloading No -Treatment Response Procedure Tolerated Well -Debridement - Subq, 1st 20sq cm Yes -Debridement, SubQ, ea addt'l 20sq cm 2 or part thereof [See Physician Procedure note for Specifics] Pain Scale: 0-10 Numeric [Pain] -Is Patient Pain Free? Yes Musculoskeletal: No Tenderness to Palpation of Joints or Extremities, Muscle Wasting, Tenderness - Ulcer manipulation, - - Compartment soft. Lower extremity weakness consistent with post polio sequela left lower extremity Neurological: Sensory exam intact to light touch and pain - Hypersensitivity Psych/Mental Status: Normal Affect, Appropriate Debridement Note Post-Debridement Measurements/Treatment WC - Nurse 2 - General Ulcer CM Notes Start: 09/18/20 14:52 Freq: Status: Active Protocol: Activity Type Activity Date Activity User E-Sign Co-Sign Detail Recorded Client Recorded Date Recorded By Document 09/18/20 15:10 [id number] 09/18/20 15:12 Document 09/25/20 15:41 [id number] 09/25/20 15:43 09/18/20 09/25/20 15:10 15:41 Wound Center Nurse 2 #1 LLE -Time 15:10 15:42 -Correct Patient Yes Yes -Correct Side, Site, Position Yes Yes -Correct Procedure Yes Yes -Procedure Performed Yes Yes -Type of Procedure Debridement Debridement -Clinical Debridement Subcutaneous Subcutaneous -Tissue Removed Subcutaneous Subcutaneous -Post Debridement (cm) - Length 8.2 7.0 -Post Debridement (cm) - Width 6.1 6.0 -Post Debridement (cm) - Depth 0.3 0.2 -Total Square (Post) (cm) 50.02 42.00 -Area of Debridement (cm) - Length 8.2 7.0 -Area of Debridement (cm) - Width 6.1 6.0 -Total Square (Area) (cm) 50.02 42.00 -Tunneling No No -Undermining/Tunneling No No -Circular Undermining No No -Wound/Ulcer Outcome Not Healed Not Healed -Ulcer Cleansing Rinsed/ Rinsed/ Irrigated with Irrigated with Saline Saline -Foul Odor after Cleansing No No -Bioengineered Tissue No No -Bleeding Controlled with Pressure Pressure -Offloading No No -Treatment Response Procedure Procedure Tolerated Well Tolerated Well -Debridement - Subq, 1st 20sq cm Yes Yes -Debridement, SubQ, ea addt'l 20sq cm 2 2 or part thereof Pain Scale: 0-10 Numeric Is Patient Pain Free? Yes Yes - Nurse 3 - General Ulcer D/C NN Start: 09/18/20 14:52 Freq: Status: Active Protocol: Activity Type Activity Date Activity User E-Sign Co-Sign Detail Recorded Client Recorded Date Recorded By Document 09/18/20 15:25 RB [id number] 09/18/20 15:26 RB 09/18/20 15:25 Wound Care Nurse 3 #1 LLE -Ulcer Cleansing Rinsed/ Irrigated with Saline -Primary Dressing Applied NonAdherent Contact Layer -Other Dressing saline moistened gauze -Primary Dressing Covered/Secured with Dry Gauze,Dry Gauze & Roll Gauze,Secured with Tape Treatment Response Procedure Tolerated Well Vital Signs Blood Pressure (90/60-120/80) 146/50 H Blood Pressure Mean (mm Hg) 82 Source Monitor Position Semi-Fowlers Blood Pressure Location Left Arm Pain Scale: 0-10 Numeric Is Patient Pain Free? Yes Teaching: Wound Center Control Swelling with Leg Elevation -Person Taught Patient -Teaching Method Discussion -Response to teaching Verbalize understanding WC - Visit Discharge Discharge Condition Stable Ambulatory Status Wheelchair Transportation Private Auto Medication Reconcilliation completed & No provided to patient/care provider Clinical Summary of Care Provided Yes Wound debrided: leg Laterality: Left Type of Debridement: Excisional debridement Anesthesia Used: 5% Lidocaine Gel Depth: in the subcutaneous layer Percentage of wound debrided: 100 Instrument Used: #15 blade Tissue Removed: fibrous, devitalized subcutaneous, biofilm, slough Severity: Fat Layer Exposed Amount of bleeding with debridement: Mild Bleeding Controlled with: Pressure Patient tolerated procedure well Assessment/Plan Active Problems (Last Reviewed 04/11/20 @ 14:[address] Yefri Rubio MD) Cellulitis of left lower extremity (Acute) Ulcer of left lower extremity with fat layer exposed (Chronic) Delayed wound healing (Chronic) Left leg pain (Chronic) C. difficile colitis (Chronic) Assessment: Left leg ulcer with fat layer /partial fascial layer no longer exposed, improving. Recent cellulitis progression left lower extremity. Anterior medial left satellite lesions, returned. C. difficile, being treated with tapered oral vancomycin under the management of infectious disease. 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 bacterial colonization with Pseudomonas treated with antibiotics under infectious disease management -medically treated. Leg edema. Venous insufficiency. Peripheral vascular disease. Delayed healing. Malnutrition suspected Plan: I reviewed and discussed her case today. Debridement was performed as noted in the clinical panel today her leg was washed with soap and water. I recommend changing the dressing with Dakin wet-to-dry dressing every other day. She was advised to alternate this with every other day Santyl applications applied nickel thickness. An updated prescription was provided. She is concerned about painful adhesions with dressing changes and she was advised it is okay to apply a thin layer of Adaptic directly over the wound. Do not appreciate any purulence or systemic illness on exam today and she was advised to continue with oral antibiotic outpatient management. Infectious disease recommendations are appreciated. To complete doxycycline, Flagyl, and cefdinir oral antibiotics as prescribed. Fluconazole prescription was also provided and this was sent electronically to her pharmacy of choice. She also was advised to continue with oral vancomycin as advised by infectious disease specialist also. She had an operating room debridement on 05-29-2020. She has now completed a 6-week course of IV vancomycin and cefepime with an end date of July 08, 2020. Venous reflux evaluation test was ordered. She was advised to avoid idle sitting and standing and to elevate the limb to control edema. If she has continued pain particularly with leg elevation, I recommend she intermittently dangles the leg as well. Compliance was discussed since she is deviated from this plan while she recently returned home and now she is having her poor work done and she still struggles with this this past week. I also recommend she proceeds with noninvasive arterial study. This was performed and she has already completed the additional recommended tests by vascular surgery. I reviewed Dr. Morel's plan and documentation. She additionally had an updated test performed and intervention is not recommended at this time from an arterial standpoint. Due to her overall lack of progress I recommend she returns early to see if intervention is possible. Dr. Morel was also updated on her recent hospital admission findings and plan. She understands any considered intervention is definitely not recommended while she has any type of infection or bacterial contamination. She does also have significant bilateral lower extremity monophasic waveforms with ABIs of around 0.5 bilaterally. Her prealbumin was 19.8 and proper nutrition and supplementation was reviewed. To proceed with a proper control diet and nutrition supplementation to optimize healing. I answered all of her questions and explained the etiology of ulcer causes and the comprehensive wound healing plan. She was advised to return to clinic in 1 weeks. . 2019 quality measures reviewed as the following: medication and allergy reconciliation was performed. Reviewed 12-27-2019: She denies falling this past year. Reviewed 11/15/2019-pneumonia vaccination was confirmed, influenza immunization was confirmed for this current season in July 2019, advanced care plan was confirmed with living will, she is a current tobacco non user, her blood pressure is elevated over 120/80 and I recommend she follows up with her primary care physician for medical management of this. Diet and exercise benefits were also discussed for educational purposes to optimize her wound healing and medical management.
[2020-10-02 14:51] VITALS: BP 141/60; PULSE 79; RESP 18; TEMP 36.4; BMI 26.8
[2020-10-02 15:51] VITALS: BP 140/60
--- NOTE | 2020-10-02 20:16 | PN.PCM_ITS ---
(1) Cellulitis of left lower extremity Status: Resolved Code(s): L03.116 - Cellulitis of left lower limb (2) Ulcer of left lower extremity with fat layer exposed Status: Chronic Code(s): L97.922 - Non-pressure chronic ulcer of unspecified part of left lower leg with fat layer exposed (3) Delayed wound healing Status: Chronic Code(s): T14.8XXD - Other injury of unspecified body region, subsequent encounter (4) Left leg pain Status: Chronic Code(s): M79.605 - Pain in left leg (5) C. difficile colitis Status: Resolved Code(s): A04.72 - Enterocolitis due to Clostridium difficile, not specified as recurrent Type of Wound Date of Service: 10/02/20 Chief Complaint: Left leg ulcer History of Wound: This 70-year-old female with significant past medical history of polio with several medical sequela sustained a left leg ulcer that dates back to 2016. She tries to elevate and uses an Candelario wrap. She was previously seen by vascular surgery. She has recently been changing the dressing with Dakin's solution wet-to-dry and also Santyl every other day. She continues on oral vancomycin for treatment of chronic and recurrent C. difficile once every three days. She has been taking oral antibiotics as advised by infectious disease specialist including cefdinir and doxycycline for ten days. This has been completed Flagyl was also recently started and she is almost completed this as well. She is with her daughter today. She denies odor or redness. Progress of Wound: Cellulitis resolved. Ulcer stable - Physical Exam Vital Signs Temp Pulse Resp BP 97.5 F L 79 18 140/60 H 10/02/20 14:51 10/02/20 14:51 10/02/20 14:51 10/02/20 15:51 General: Alert, Oriented x3, Cooperative, No apparent distress HEENT: Atraumatic Extremities: No cyanosis, Capillary Refill Less than 3 Seconds, No Calf Tenderness, Diminished Peripheral Pulses, Edema Skin: Ulcer/ Wound - No purulence, erythema, streaking, odor, infection. Adjacent skin is hairless and atrophic. There is mild improvement with some pale granular base however most of the ulcer is fibrous. Reduce periulcer inflammation Wound Measurements and Assessment WC - Nurse 1 - General Ulcer Measurement Start: 09/18/20 14:52 Freq: Status: Active Protocol: Activity Type Activity Date Activity User E-Sign Co-Sign Detail Recorded Client Recorded Date Recorded By Document 10/02/20 14:51 DL [id number] 10/02/20 15:02 DL 10/02/20 14:51 Wound Center Nurse 1 [Ulcer Assessment] #1 LLE -Current Size (cm) - Length 7.5 -Current Size (cm) - Width 6.7 -Current Size (cm) - Depth 0.2 -Total Square Cm 50.25 -Photo Taken No -Exudate Amt Small -Exudate Type Serosanguineous -Wound Margin Distinct, Outline Attached -Granulation Amt None Present (0 %) -Necrosis Amt Large (67-100%) -Necrotic Tissue Type Adherent Slough -Structure Exposed N/A -Texture (Susana-wound Skin Appearance) Excoriation, Scarring -Color (Susana-wound Skin Appearance) Erythema,Rubor -Temperature (Susana-wound Skin No Abnormality Appearance) (Pt Warm) -Tenderness on Palpation (Susana-wound No Skin Appearance) -Ulcer Cleansing Wound Cleanser -Foul Odor after Cleansing No -Anesthetic Used 4% Lidocaine Solution WC - Nurse 2 - General Ulcer CM Notes Start: 09/18/20 14:52 Freq: Status: Active Protocol: Activity Type Activity Date Activity User E-Sign Co-Sign Detail Recorded Client Recorded Date Recorded By Document 10/02/20 15:14 JF [id number] 10/02/20 15:15 10/02/20 15:14 Wound Center Nurse 2 [Procedure/Treatment] -Time 15:14 -Correct Patient Yes -Correct Side, Site, Position Yes -Correct Procedure Yes -Procedure Performed Yes -Type of Procedure Debridement -Clinical Debridement Subcutaneous -Tissue Removed Subcutaneous -Post Debridement (cm) - Length 7.5 -Post Debridement (cm) - Width 6.8 -Post Debridement (cm) - Depth 0.2 -Total Square (Post) (cm) 51.00 -Area of Debridement (cm) - Length 7.5 -Area of Debridement (cm) - Width 6.8 -Total Square (Area) (cm) 51.00 -Tunneling No -Undermining/Tunneling No -Circular Undermining No -Wound/Ulcer Outcome Not Healed -Ulcer Cleansing Rinsed/ Irrigated with Saline -Foul Odor after Cleansing No -Bioengineered Tissue No -Bleeding Controlled with Pressure -Offloading No -Treatment Response Procedure Tolerated Well -Debridement - Subq, 1st 20sq cm Yes -Debridement, SubQ, ea addt'l 20sq cm 2 or part thereof [See Physician Procedure note for Specifics] Pain Scale: 0-10 Numeric [Pain] -Is Patient Pain Free? Yes - Nurse 3 - General Ulcer D/C NN Start: 09/18/20 14:52 Freq: Status: Active Protocol: Activity Type Activity Date Activity User E-Sign Co-Sign Detail Recorded Client Recorded Date Recorded By Document 10/02/20 15:51 RB [id number] 10/02/20 15:53 RB 10/02/20 15:51 Wound Care Nurse 3 [Wound Dressing] #1 LLE -Ulcer Cleansing Rinsed/ Irrigated with Saline -Primary Dressing Applied NonAdherent Contact Layer -Other Dressing hydrogel, gauze then candelario -Primary Dressing Covered/Secured Dry Gauze,Dry with Gauze & Roll Gauze,Secured with Tape [Post Procedure Tolerated] -Treatment Response Procedure Tolerated Well Vital Signs [Blood Pressure] -Blood Pressure (90/60-120/80) 140/60 H -Blood Pressure Mean (mm Hg) 86 -Source Monitor -Position Semi-Fowlers -Blood Pressure Location Left Arm Pain Scale: 0-10 Numeric [Pain] -Is Patient Pain Free? No Teaching: Wound Center [Wound Center Education] (Items with an * have Printed Materials Available- Please identify what is given to patient under the Teaching materials given to patient and caregiver Section. Dressing Your Wound -Person Taught Patient -Teaching Method Discussion, Demonstration -Response to teaching Verbalize understanding - Visit Discharge [Visit Discharge Information] -Discharge Condition Stable -Ambulatory Status Wheelchair -Transportation Private Auto -Medication Reconcilliation completed No & provided to patient/care provider -Clinical Summary of Care Provided Yes Musculoskeletal: No Tenderness to Palpation of Joints or Extremities, Muscle Wasting, Tenderness - Slightly decreased ulcer manipulation pain but still present Neurological: Sensory exam intact to light touch and pain - Hypersensitivity Psych/Mental Status: Normal Affect, Appropriate Debridement Note Post-Debridement Measurements/Treatment WC - Nurse 2 - General Ulcer CM Notes Start: 09/18/20 14:52 Freq: Status: Active Protocol: Activity Type Activity Date Activity User E-Sign Co-Sign Detail Recorded Client Recorded Date Recorded By Document 09/18/20 15:10 [id number] 09/18/20 15:12 Document 09/25/20 15:41 [id number] 09/25/20 15:43 Document 10/02/20 15:14 [id number] 10/02/20 15:15 09/18/20 09/25/20 10/02/20 15:10 15:41 15:14 Wound Center Nurse 2 #1 LLE -Time 15:10 15:42 15:14 -Correct Patient Yes Yes Yes -Correct Side, Site, Position Yes Yes Yes -Correct Procedure Yes Yes Yes -Procedure Performed Yes Yes Yes -Type of Procedure Debridement Debridement Debridement -Clinical Debridement Subcutaneous Subcutaneous Subcutaneous -Tissue Removed Subcutaneous Subcutaneous Subcutaneous -Post Debridement (cm) - Length 8.2 7.0 7.5 -Post Debridement (cm) - Width 6.1 6.0 6.8 -Post Debridement (cm) - Depth 0.3 0.2 0.2 -Total Square (Post) (cm) 50.02 42.00 51.00 -Area of Debridement (cm) - Length 8.2 7.0 7.5 -Area of Debridement (cm) - Width 6.1 6.0 6.8 -Total Square (Area) (cm) 50.02 42.00 51.00 -Tunneling No No No -Undermining/Tunneling No No No -Circular Undermining No No No -Wound/Ulcer Outcome Not Healed Not Healed Not Healed -Ulcer Cleansing Rinsed/ Rinsed/ Rinsed/ Irrigated with Irrigated with Irrigated with Saline Saline Saline -Foul Odor after Cleansing No No No -Bioengineered Tissue No No No -Bleeding Controlled with Pressure Pressure Pressure -Offloading No No No -Treatment Response Procedure Procedure Procedure Tolerated Well Tolerated Well Tolerated Well -Debridement - Subq, 1st 20sq cm Yes Yes Yes -Debridement, SubQ, ea addt'l 20sq cm 2 2 2 or part thereof Pain Scale: 0-10 Numeric Is Patient Pain Free? Yes Yes Yes - Nurse 3 - General Ulcer D/C NN Start: 09/18/20 14:52 Freq: Status: Active Protocol: Activity Type Activity Date Activity User E-Sign Co-Sign Detail Recorded Client Recorded Date Recorded By Document 09/18/20 15:25 RB [id number] 09/18/20 15:26 RB Document 10/02/20 15:51 RB [id number] 10/02/20 15:53 RB 09/18/20 10/02/20 15:25 15:51 Wound Care Nurse 3 #1 LLE -Ulcer Cleansing Rinsed/ Rinsed/ Irrigated with Irrigated with Saline Saline -Primary Dressing Applied NonAdherent NonAdherent Contact Layer Contact Layer -Other Dressing saline hydrogel, gauze moistened gauze then candelario -Primary Dressing Covered/Secured with Dry Gauze,Dry Dry Gauze,Dry Gauze & Roll Gauze & Roll Gauze,Secured Gauze,Secured with Tape with Tape Treatment Response Procedure Procedure Tolerated Well Tolerated Well Vital Signs Blood Pressure (90/60-120/80) 146/50 H 140/60 H Blood Pressure Mean (mm Hg) 82 86 Source Monitor Monitor Position Semi-Fowlers Semi-Fowlers Blood Pressure Location Left Arm Left Arm Pain Scale: 0-10 Numeric Is Patient Pain Free? Yes No Teaching: Wound Center Control Swelling with Leg Elevation -Person Taught Patient -Teaching Method Discussion -Response to teaching Verbalize understanding Dressing Your Wound -Person Taught Patient -Teaching Method Discussion, Demonstration -Response to teaching Verbalize understanding WC - Visit Discharge Discharge Condition Stable Stable Ambulatory Status Wheelchair Wheelchair Transportation Private Auto Private Auto Medication Reconcilliation completed & No No provided to patient/care provider Clinical Summary of Care Provided Yes Yes Wound debrided: leg Laterality: Left Type of Debridement: Excisional debridement Anesthesia Used: 5% Lidocaine Gel Depth: in the subcutaneous layer Percentage of wound debrided: 100 Instrument Used: #15 blade Tissue Removed: fibrous, devitalized subcutaneous, biofilm, slough Severity: Fat Layer Exposed Amount of bleeding with debridement: Mild Bleeding Controlled with: Pressure Patient tolerated procedure well Assessment/Plan Active Problems (Last Reviewed 04/11/20 @ 14:[address] Yefri Rubio MD) Ulcer of left lower extremity with fat layer exposed (Chronic) Delayed wound healing (Chronic) Left leg pain (Chronic) Assessment: Left leg ulcer with fat layer /partial fascial layer no longer exposed, improving. Recent cellulitis left lower extremity resolved. C. diffi andrea, being treated with tapered oral vancomycin under the management of infectious disease. 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 bacterial colonization with Pseudomonas treated with antibiotics under infectious disease management -medically treated. Leg edema. Venous insufficiency. Peripheral vascular disease. Delayed healing. Malnutrition suspected Plan: I reviewed and discussed her case today. Debridement was performed as noted in the clinical panel today. Her leg was washed with soap and water. I recommend changing the dressing with Dakin wet-to-dry dressing every other day. She was advised to alternate this with every other day Santyl applications applied nickel thickness. I do not appreciate any purulence or systemic illness on exam today. Infectious disease recommendations are appreciated. She recently completed doxycycline, Flagyl, and cefdinir oral antibiotics as prescribed. Fluconazole prescription was also provided after her last visit with no additional complaints. Venous reflux evaluation test was previously ordered. She was advised to avoid idle sitting and standing and to elevate the limb to control edema. She has been having some work done at home and this is difficult for her. If she has continued pain particularly with leg elevation, I recommend she intermittently dangles the leg as well. I also recommend she proceeds with noninvasive arterial study. This was performed and she has already completed the additional recommended tests by vascular surgery. I reviewed Dr. Morel's plan and documentation. She additionally had an updated test performed and intervention is not recommended at this time from an arterial standpoint. Due to her overall lack of progress I recommend she returns early to see if intervention is possible. Dr. Morel was also updated on her recent hospital admission findings and plan. She understands any considered intervention is definitely not recommended while she has any type of infection or bacterial contamination. She does also have significant bilateral lower extremity monophasic waveforms with ABIs of around 0.5 bilaterally. Her prealbumin was 19.8 and proper nutrition and supplementation was reviewed. To proceed with a proper control diet and nutrition supplementation to optimize healing. I answered all of her questions and explained the etiology of ulcer causes and the comprehensive wound healing plan. She was advised to return to clinic in 1 to 2 weeks. . 2020 quality measures reviewed as the following: medication and allergy reconciliation was performed. Reviewed 12-27-2019: She denies falling this past year. Reviewed 11/15/2019-pneumonia vaccination was confirmed, influenza immunization was confirmed for this current season in July 2019, advanced care plan was confirmed with living will, she is a current tobacco non user, her blood pressure is elevated over 120/80 and I recommend she follows up with her primary care physician for medical management of this. Diet and exercise benefits were also discussed for educational purposes to optimize her wound healing and medical management.
== END 2020-10-07 23:59 ==
LOC: WC 14:45
PROVIDERS: Referring Provider Podiatrist; Visit Provider Podiatrist
DX: L97.922 Non-pressure chronic ulcer of unspecified part of left lower leg with fat layer exposed (principal); L03.116 Cellulitis of left lower limb; G14 Postpolio syndrome; I87.2 Venous insufficiency (chronic) (peripheral); I73.9 Peripheral vascular disease, unspecified; M79.605 Pain in left leg; A04.71 Enterocolitis due to Clostridium difficile, recurrent; R03.0 Elevated blood-pressure reading, without diagnosis of hypertension
CPT/HCPCS: 11042; 11045; 80053; 85025; 85652; 86140; 87070; 87075; 87077; 87186; 87205; 87640

== ENCOUNTER 2020-10-30 14:45 | Outpatient (RCR) | payer MEDICARE, OTHER, SELFPAY ==
[2020-10-08 00:19] VITALS: BP 140/60; PULSE 79; RESP 18; TEMP 36.4
[2020-10-16 14:45] VITALS: BP 155/66; PULSE 105; RESP 20; TEMP 36.5; BMI 26.8
[2020-10-16 15:53] VITALS: BP 155/68
[2020-10-16 17:38] LABS: Absolute Lymphocyte Count 2.07 X10^3/uL (0.83-4.51); Absolute Neutrophil Count 4.8 X10^3/uL (2.0-7.7); Basophil# 0.08 X10^3/uL; Eosinophil# 0.38 X10^3/uL; Eosinophils% 4.7 % (0-5); Hematocrit 39.6 % (37-47); Hemoglobin 12.8 g/dL (12.0-15.0); Lymphocyte # 2.07 X10^3/ul (4.0); Lymphocyte % 25.7 % (19-41); Mean Corp Hgb Conc 32.3 g/dL (32-36); Mean Corpuscular Hgb 29.8 pg (27.0-32.0); Mean Corpuscular Volume 92.1 fL (81-99); Mean Platelet Vol. 8.8 fl (6.2-12.0); Monocyte# 0.67 X10^3/uL; Monocyte% 8.3 % (0-10); NRBC Flagged by Analyzer 0 % (0-5); Neutrophil # 4.84 X10^3/uL (2.7-7.7); Neutrophil % 59.9 % (47-70); Platelet Count 318 K/mm3 (150-450); RBC Distribution Width CV 14.1 % (11.6-14.6); RBC Distribution Width SD 47.7 fl (35.1-43.9); White Blood Count 8.1 K/mm3 (4.4-11.0)
[2020-10-16 17:51] LABS: Erythrocyte Sedimentation Rate 47 mm/hr (0-30)
[2020-10-16 17:53] LABS: ALB/GLOB Ratio 0.7 RATIO (0.9-2.4); AST(SGOT) 14 U/L (15-37); Alanine Aminotransfer ALT/SGPT 16 U/L (13-56); Albumin, Serum 3.4 g/dL (3.2-5.0); Alkaline Phosphatase 100 U/L (45-117); Anion Gap 3 (5-15); BUN 11 mg/dL (7-18); BUN/Creat Ratio 16.2 RATIO (10-20); Calcium,Total 9.6 mg/dL (8.5-10.1); Chloride 106 mmol/L (98-107); Creatinine, Serum 0.68 mg/dL (0.55-1.02); EST Glomerular Filtration Rate 91 mL/min (>60); Est Glom Filt Rate - Afr Amer 110 mL/min (>60); Estimated Creatinine Clearance 50.98 ml/min; Globulin 4.6 g/dL (2.2-4.2); Glucose 90 mg/dL (74-106); Potassium 3.6 mmol/L (3.5-5.1); Sodium Level 140 mmol/L (136-145)
[2020-10-16 19:59] LABS: M R Staph aureus DNA By PCR Negative (Negative); Probe Check PASS; Specimen Processing Control PASS; Staph aureus DNA By PCR POSITIVE (Negative)
--- NOTE | 2020-10-16 21:33 | PCM.WC.PN ---
(1) Localized edema Status: Chronic Code(s): R60.0 - Localized edema (2) Cellulitis of left lower extremity Status: Acute Code(s): L03.116 - Cellulitis of left lower limb (3) Delayed wound healing Status: Chronic Code(s): T14.8XXD - Other injury of unspecified body region, subsequent encounter (4) Venous insufficiency Status: Chronic Code(s): I87.2 - Venous insufficiency (chronic) (peripheral) Comment: left Greater saphenous vein (5) Other specified peripheral vascular diseases Status: Chronic Code(s): I73.89 - Other specified peripheral vascular diseases Comment: bilateral lower extremity Type of Wound Date of Service: 10/16/20 Chief Complaint: Left leg ulcer History of Wound: This 70-year-old female with significant past medical history of polio with several medical sequela sustained a left leg ulcer that dates back to 2016. She tries to elevate and uses an Candelario wrap. She was previously seen by vascular surgery. She has recently been changing the dressing with Dakin's solution wet-to-dry and also Santyl every other day. She continues on oral vancomycin for treatment of chronic and recurrent C. difficile once every three days. She has been taking oral antibiotics including cefdinir, flagyl, and doxycycline since she called in with worsening status. she has tolerated this well so far. She is with her daughter today. She relates she still drainage, swelling, and inflammation however this is not as bad as 4 days ago. She thinks this is still infected. She is trying to elevate at home however admits this is a challenge. Progress of Wound: Cellulitis. Ulcer stable - Physical Exam Vital Signs Temp Pulse Resp BP 97.7 F L 105 H 20 H 155/68 H 10/16/20 14:45 10/16/20 14:45 10/16/20 14:45 10/16/20 15:53 General: Alert, Oriented x3, Cooperative, No apparent distress HEENT: Atraumatic Extremities: No cyanosis, Capillary Refill Less than 3 Seconds, No Calf Tenderness, Diminished Peripheral Pulses, Edema Skin: Ulcer/ Wound - No purulence, necrosis, deep tissue exposure. The ulcer bed is pale granular base about 25% and the rest of its fibers. There is serosanguineous drainage. There is periulcer inflammation including edema and some pink discoloration. There is no bogginess or fluctuance on palpation or streaking Wound Measurements and Assessment - Nurse 1 - General Ulcer Measurement Start: 10/16/20 14:44 Freq: Status: Active Protocol: Activity Type Activity Date Activity User E-Sign Co-Sign Detail Recorded Client Recorded Date Recorded By Document 10/16/20 14:45 DL [id number] 10/16/20 14:50 DL 10/16/20 14:45 Wound Center Nurse 1 [Ulcer Assessment] #1 LLE -Current Size (cm) - Length 8 -Current Size (cm) - Width 7.1 -Current Size (cm) - Depth 0.3 -Total Square Cm 56.8 -Photo Taken No -Exudate Amt Small -Exudate Type Serosanguineous -Wound Margin Distinct, Outline Attached -Granulation Amt Small (1-33%) -Granulation Quality [place] -Necrosis Amt Large (67-100%) -Necrotic Tissue Type Adherent Slough -Structure Exposed N/A -Texture (Susana-wound Skin Appearance) Excoriation, Localized Edema ,Scarring -Moisture (Susana-wound Skin Appearance Dry/Scaly ) -Color (Susana-wound Skin Appearance) Erythema, Hemosiderin Staining -Temperature (Susana-wound Skin No Abnormality Appearance) (Pt Warm) -Tenderness on Palpation (Susana-wound Yes Skin Appearance) -Ulcer Cleansing Wound Cleanser -Foul Odor after Cleansing No -Anesthetic Used 4% Lidocaine Solution,5% Lidocaine Gel [Edema Assessment] -Left Calf (cm) 35 -Left Ankle (cm) 22 WC - Nurse 2 - General Ulcer CM Notes Start: 10/16/20 14:44 Freq: Status: Active Protocol: Activity Type Activity Date Activity User E-Sign Co-Sign Detail Recorded Client Recorded Date Recorded By Document 10/16/20 15:38 [email or web address] [id number] 10/16/20 15:39 10/16/20 15:38 Wound Center Nurse 2 [Procedure/Treatment] #1 LLE -Time 15:38 -Correct Patient Yes -Correct Side, Site, Position Yes -Correct Procedure Yes -Type of Procedure Debridement -Clinical Debridement Subcutaneous -Tissue Removed Subcutaneous -Post Debridement (cm) - Length 8.0 -Post Debridement (cm) - Width 7.2 -Post Debridement (cm) - Depth 0.3 -Total Square (Post) (cm) 57.60 -Area of Debridement (cm) - Length 8.0 -Area of Debridement (cm) - Width 7.2 -Total Square (Area) (cm) 57.60 -Tunneling No -Undermining/Tunneling No -Circular Undermining No -Wound/Ulcer Outcome Not Healed -Ulcer Cleansing Rinsed/ Irrigated with Saline -Foul Odor after Cleansing No -Bioengineered Tissue No -Bleeding Controlled with Pressure -Offloading No -Treatment Response Procedure Tolerated Well -Debridement - Subq, 1st 20sq cm Yes -Debridement, SubQ, ea addt'l 20sq cm 2 or part thereof [See Physician Procedure note for Specifics] Pain Scale: 0-10 Numeric [Pain] -Is Patient Pain Free? Yes - Nurse 3 - General Ulcer D/C NN Start: 10/16/20 14:44 Freq: Status: Active Protocol: Activity Type Activity Date Activity User E-Sign Co-Sign Detail Recorded Client Recorded Date Recorded By Document 10/16/20 15:53 RB [id number] 10/16/20 15:55 RB 10/16/20 15:53 Wound Care Nurse 3 [Wound Dressing] #1 LLE -Ulcer Cleansing Rinsed/ Irrigated with Saline -Primary Dressing Applied NonAdherent Contact Layer -Other Dressing hydrogel, adatic kerramax -Primary Dressing Covered/Secured Dry Gauze,Dry with Gauze & Roll Gauze,Secured with Tape -Other Covering candelario [Post Procedure Tolerated] -Treatment Response Procedure Tolerated Well Vital Signs [Blood Pressure] -Blood Pressure (90/60-120/80) 155/68 H -Blood Pressure Mean (mm Hg) 97 -Source Monitor -Position Semi-Fowlers -Blood Pressure Location Left Arm Pain Scale: 0-10 Numeric [Pain] -Is Patient Pain Free? 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 Neurological: Sensory exam intact to light touch and pain Psych/Mental Status: Normal Affect, Appropriate, Anxious Debridement Note Post-Debridement Measurements/Treatment - Nurse 2 - General Ulcer CM Notes Start: 10/16/20 14:44 Freq: Status: Active Protocol: Activity Type Activity Date Activity User E-Sign Co-Sign Detail Recorded Client Recorded Date Recorded By Document 10/16/20 15:38 [id number] 10/16/20 15:39 10/16/20 15:38 Wound Center Nurse 2 #1 LLE -Time 15:38 -Correct Patient Yes -Correct Side, Site, Position Yes -Correct Procedure Yes -Type of Procedure Debridement -Clinical Debridement Subcutaneous -Tissue Removed Subcutaneous -Post Debridement (cm) - Length 8.0 -Post Debridement (cm) - Width 7.2 -Post Debridement (cm) - Depth 0.3 -Total Square (Post) (cm) 57.60 -Area of Debridement (cm) - Length 8.0 -Area of Debridement (cm) - Width 7.2 -Total Square (Area) (cm) 57.60 -Tunneling No -Undermining/Tunneling No -Circular Undermining No -Wound/Ulcer Outcome Not Healed -Ulcer Cleansing Rinsed/ Irrigated with Saline -Foul Odor after Cleansing No -Bioengineered Tissue No -Bleeding Controlled with Pressure -Offloading No -Treatment Response Procedure Tolerated Well -Debridement - Subq, 1st 20sq cm Yes -Debridement, SubQ, ea addt'l 20sq cm 2 or part thereof Pain Scale: 0-10 Numeric Is Patient Pain Free? Yes - Nurse 3 - General Ulcer D/C NN Start: 10/16/20 14:44 Freq: Status: Active Protocol: Activity Type Activity Date Activity User E-Sign Co-Sign Detail Recorded Client Recorded Date Recorded By Document 10/16/20 15:53 [id number] 10/16/20 15:55 10/16/20 15:53 Wound Care Nurse 3 #1 LLE -Ulcer Cleansing Rinsed/ Irrigated with Saline -Primary Dressing Applied NonAdherent Contact Layer -Other Dressing hydrogel, adatic kerramax -Primary Dressing Covered/Secured with Dry Gauze,Dry Gauze & Roll Gauze,Secured with Tape -Other Covering candelario Treatment Response Procedure Tolerated Well Vital Signs Blood Pressure (90/60-120/80) 155/68 H Blood Pressure Mean (mm Hg) 97 Source Monitor Position Semi-Fowlers Blood Pressure Location Left Arm Pain Scale: 0-10 Numeric Is Patient Pain Free? Yes - Visit Discharge Medication Reconcilliation completed & No provided to patient/care provider Clinical Summary of Care Provided Yes Wound debrided: leg Laterality: Left Type of Debridement: Excisional debridement Anesthesia Used: 5% Lidocaine Gel Depth: in the subcutaneous layer Percentage of wound debrided: 100 Instrument Used: #15 blade Tissue Removed: fibrous, devitalized subcutaneous, biofilm, slough Severity: Fat Layer Exposed Amount of bleeding with debridement: Mild Bleeding Controlled with: Pressure Patient tolerated procedure well Assessment/Plan Active Problems (Last Reviewed 04/11/20 @ 14:[address] Yefri Rubio MD) Localized edema (Chronic) Cellulitis of left lower extremity (Acute) Delayed wound healing (Chronic) Venous insufficiency (Chronic) left Greater saphenous vein Other specified peripheral vascular diseases (Chronic) bilateral lower extremity Assessment: Left leg ulcer with fat layer /partial fascial layer no longer exposed, improving. Recent cellulitis left lower extremity now reoccurrence within the past week. C. difficile, being treated with tapered oral vancomycin under the management of infectious disease. 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 bacterial colonization with Pseudomonas treated with antibiotics under infectious disease management -medically treated. Leg edema. Venous insufficiency. Peripheral vascular disease. Delayed healing. Malnutrition suspected Plan: I reviewed and discussed her case today. Debridement was performed as noted in the clinical panel today. Her leg was washed with soap and water. I recommend changing the dressing with Dakin wet-to-dry dressing every other day. She was advised to alternate this with every other day Santyl applications applied nickel thickness. I do not appreciate any purulence or systemic illness on exam today. She does have recurrence of periulcer inflammation and slightly increasing pain which is likely consistent with cellulitis recurrence. She called in and we reviewed this earlier this week and she was restarted on cefdinir, Flagyl, and doxycycline. She has a complicated course and infectious disease recommendations are recommended within the next 1 to 2 weeks. Her current plan was based off of her last culture. A new culture post debridement and irrigation was obtained today in clinic and will follow the results closely. Venous reflux evaluation test was previously ordered. She was advised to avoid idle sitting and standing and to elevate the limb to control edema. She has been having some work done at home and this is difficult for her. If she has continued pain particularly with leg elevation, I recommend she intermittently dangles the leg as well. I also recommend she proceeds with noninvasive arterial study. This was performed and she has already completed the additional recommended tests by vascular surgery. I reviewed Dr. Morel's plan and documentation. She additionally had an updated test performed and intervention is not recommended at this time from an arterial standpoint. Due to her overall lack of progress I recommend she returns early to see if intervention is possible. Dr. Morel was also updated on her recent hospital admission findings and plan. She understands any considered intervention is definitely not recommended while she has any type of infection or bacterial contamination. She does also have significant bilateral lower extremity monophasic waveforms with ABIs of around 0.5 bilaterally. Her prealbumin was 19.8 and proper nutrition and supplementation was reviewed. To proceed with a proper control diet and nutrition supplementation to optimize healing. I answered all of her questions and explained the etiology of ulcer causes and the comprehensive wound healing plan. She was advised to return to clinic in 1 week. . 2020 quality measures reviewed as the following: medication and allergy reconciliation was performed. Reviewed 12-27-2019: She denies falling this past year. Reviewed 11/15/2019-pneumonia vaccination was confirmed, influenza immunization was confirmed for this current season in July 2019, advanced care plan was confirmed with living will, she is a current tobacco non user, her blood pressure is elevated over 120/80 and I recommend she follows up with her primary care physician for medical management of this. Diet and exercise benefits were also discussed for educational purposes to optimize her wound healing and medical management.
[2020-10-23 15:14] VITALS: BP 149/75; PULSE 66; RESP 18; TEMP 37.3; BMI 26.8
[2020-10-23 16:05] VITALS: BP 145/75
--- NOTE | 2020-10-23 20:16 | PN.PCM_ITS ---
(1) Localized edema Status: Chronic Code(s): R60.0 - Localized edema (2) Cellulitis of left lower extremity Status: Acute Code(s): L03.116 - Cellulitis of left lower limb (3) Delayed wound healing Status: Chronic Code(s): T14.8XXD - Other injury of unspecified body region, subsequent encounter (4) Venous insufficiency Status: Chronic Code(s): I87.2 - Venous insufficiency (chronic) (peripheral) Comment: left Greater saphenous vein (5) Other specified peripheral vascular diseases Status: Chronic Code(s): I73.89 - Other specified peripheral vascular diseases Comment: bilateral lower extremity Type of Wound Date of Service: 10/23/20 Chief Complaint: Left leg ulcer History of Wound: This 70-year-old female with significant past medical history of polio with several medical sequela sustained a left leg ulcer that dates back to 2015. She tries to elevate and admits she discontinued bereket wraps the past couple of days due to discomfort. She was previously seen by vascular surgery. Intervention was not recommended and this is something that could be considered in the future after her infection status remains stable. She would like to consider a vascular second opinion (with her 's vascular specialist, Dr. Archibald) but is apprehensive becausee she had a lot of swelling after one of her prior vascular tests and this was uncomfortable (per her daughter). She has recently been changing the dressing with Dakin's solution wet-to-dry and also Santyl every other day. She continues on oral vancomycin for treatment of chronic and recurrent C. difficile once every three days. Recently she had loose stools and has been taking it every 12 hours with some improvement. She has been taking oral antibiotics including cefdinir, and doxycycline with some improvement (resolution of odor and redness). She is with her daughter today. She is trying to elevate at home however admits this is a challenge because her is also ill and travels to many doctor appointments often daily. She attends all of these sessions. Progress of Wound: Cellulitis improving. Ulcer stable - Physical Exam Vital Signs Temp Pulse Resp BP 99.1 F 66 18 145/75 H 10/23/20 15:14 10/23/20 15:14 10/23/20 15:14 10/23/20 16:05 General: Alert, Oriented x3, Cooperative, No apparent distress HEENT: Atraumatic Extremities: No cyanosis, Capillary Refill Less than 3 Seconds, Edema - Moderate, slightly decreased compared to last week, Tenderness - Pain with ulcer manipulation and periulcer area. Compartments are soft. 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 There is still inflammat ion with skin peeling adjacent to the wound. The ulcer bed is 100% fibrous with noted copious serosanguineous drainage. There is no purulence on expression or streaking Wound Measurements and Assessment - Nurse 1 - General Ulcer Measurement Start: 10/16/20 14:44 Freq: Status: Active Protocol: Activity Type Activity Date Activity User E-Sign Co-Sign Detail Recorded Client Recorded Date Recorded By Document 10/23/20 15:14 [email or web address] [id number] 10/23/20 15:20 DL 10/23/20 15:14 Wound Center Nurse 1 [Ulcer Assessment] #1 LLE -Current Size (cm) - Length 8.4 -Current Size (cm) - Width 7.3 -Current Size (cm) - Depth 0.4 -Total Square Cm 61.32 -Photo Taken No -Exudate Amt Medium -Exudate Type Yellow/Green -Wound Margin Distinct, Outline Attached -Granulation Amt Small (1-33%) -Granulation Quality [place] -Necrosis Amt Large (67-100%) -Necrotic Tissue Type Adherent Slough -Structure Exposed N/A -Texture (Susana-wound Skin Appearance) Scarring,Rash -Moisture (Susana-wound Skin Appearance Dry/Scaly ) -Color (Susana-wound Skin Appearance) Hemosiderin Staining -Temperature (Susana-wound Skin No Abnormality Appearance) (Pt Warm) -Tenderness on Palpation (Susana-wound No Skin Appearance) -Ulcer Cleansing Rinsed/ Irrigated with Saline -Foul Odor after Cleansing No -Anesthetic Used 4% Lidocaine Solution,5% Lidocaine Gel - Nurse 2 - General Ulcer CM Notes Start: 10/16/20 14:44 Freq: Status: Active Protocol: Activity Type Activity Date Activity User E-Sign Co-Sign Detail Recorded Client Recorded Date Recorded By Document 10/23/20 15:49 [email or web address] [id number] 10/23/20 15:55 [email or web address] 10/23/20 15:49 Wound Center Nurse 2 [Procedure/Treatment] -Time 15:53 -Correct Patient Yes -Correct Side, Site, Position Yes -Correct Procedure Yes -Procedure Performed Yes -Type of Procedure Debridement -Clinical Debridement Subcutaneous -Tissue Removed Subcutaneous -Post Debridement (cm) - Length 8.5 -Post Debridement (cm) - Width 7.4 -Post Debridement (cm) - Depth 0.4 -Total Square (Post) (cm) 62.90 -Area of Debridement (cm) - Length 8.5 -Area of Debridement (cm) - Width 7.4 -Total Square (Area) (cm) 62.90 -Tunneling No -Undermining/Tunneling No -Circular Undermining No -Wound/Ulcer Outcome Not Healed -Ulcer Cleansing Rinsed/ Irrigated with Saline -Foul Odor after Cleansing No -Bioengineered Tissue No -Bleeding Controlled with Pressure -Offloading No -Treatment Response Procedure Tolerated Well -Debridement - Subq, 1st 20sq cm Yes -Debridement, SubQ, ea addt'l 20sq cm 3 or part thereof [See Physician Procedure note for Specifics] Pain Scale: 0-10 Numeric [Pain] -Is Patient Pain Free? Yes - Nurse 3 - General Ulcer D/C NN Start: 10/16/20 14:44 Freq: Status: Active Protocol: Activity Type Activity Date Activity User E-Sign Co-Sign Detail Recorded Client Recorded Date Recorded By Document 10/23/20 16:05 [id number] 10/23/20 16:06 RB 10/23/20 16:05 Wound Care Nurse 3 [Wound Dressing] #1 LLE -Ulcer Cleansing Rinsed/ Irrigated with Saline -Primary Dressing Applied NonAdherent Contact Layer -Other Dressing hydrogel, kerramax -Primary Dressing Covered/Secured Dry Gauze,Dry with Gauze & Roll Gauze,Secured with Tape [Post Procedure Tolerated] -Treatment Response Procedure Tolerated Well Vital Signs [Blood Pressure] -Blood Pressure (90/60-120/80) 145/75 H -Blood Pressure Mean (mm Hg) 98 -Source Monitor -Position Semi-Fowlers -Blood Pressure Location Left Arm Pain Scale: 0-10 Numeric [Pain] -Is Patient Pain Free? Yes - Visit Discharge [Visit Discharge Information] -Discharge Condition Stable -Ambulatory Status Wheelchair -Transportation Private Auto -Medication Reconcilliation completed No & provided to patient/care provider -Clinical Summary of Care Provided Yes Musculoskeletal: Muscle Wasting, Tenderness Neurological: Sensory exam intact to light touch and pain - Hypersensitivity Psych/Mental Status: Normal Affect, Appropriate Debridement Note Post-Debridement Measurements/Treatment WC - Nurse 2 - General Ulcer CM Notes Start: 10/16/20 14:44 Freq: Status: Active Protocol: Activity Type Activity Date Activity User E-Sign Co-Sign Detail Recorded Client Recorded Date Recorded By Document 10/16/20 15:38 [id number] 10/16/20 15:39 Document 10/23/20 15:49 [id number] 10/23/20 15:55 10/16/20 10/23/20 15:38 15:49 Wound Center Nurse 2 #1 LLE -Time 15:38 15:53 -Correct Patient Yes Yes -Correct Side, Site, Position Yes Yes -Correct Procedure Yes Yes -Procedure Performed Yes -Type of Procedure Debridement Debridement -Clinical Debridement Subcutaneous Subcutaneous -Tissue Removed Subcutaneous Subcutaneous -Post Debridement (cm) - Length 8.0 8.5 -Post Debridement (cm) - Width 7.2 7.4 -Post Debridement (cm) - Depth 0.3 0.4 -Total Square (Post) (cm) 57.60 62.90 -Area of Debridement (cm) - Length 8.0 8.5 -Area of Debridement (cm) - Width 7.2 7.4 -Total Square (Area) (cm) 57.60 62.90 -Tunneling No No -Undermining/Tunneling No No -Circular Undermining No No -Wound/Ulcer Outcome Not Healed Not Healed -Ulcer Cleansing Rinsed/ Rinsed/ Irrigated with Irrigated with Saline Saline -Foul Odor after Cleansing No No -Bioengineered Tissue No No -Bleeding Controlled with Pressure Pressure -Offloading No No -Treatment Response Procedure Procedure Tolerated Well Tolerated Well -Debridement - Subq, 1st 20sq cm Yes Yes -Debridement, SubQ, ea addt'l 20sq cm 2 3 or part thereof Pain Scale: 0-10 Numeric Is Patient Pain Free? Yes Yes - Nurse 3 - General Ulcer D/C NN Start: 10/16/20 14:44 Freq: Status: Active Protocol: Activity Type Activity Date Activity User E-Sign Co-Sign Detail Recorded Client Recorded Date Recorded By Document 10/16/20 15:53 RB [id number] 10/16/20 15:55 RB Document 10/23/20 16:05 RB [id number] 10/23/20 16:06 RB 10/16/20 10/23/20 15:53 16:05 Wound Care Nurse 3 #1 LLE -Ulcer Cleansing Rinsed/ Rinsed/ Irrigated with Irrigated with Saline Saline -Primary Dressing Applied NonAdherent NonAdherent Contact Layer Contact Layer -Other Dressing hydrogel, hydrogel, adatic kerramax kerramax -Primary Dressing Covered/Secured with Dry Gauze,Dry Dry Gauze,Dry Gauze & Roll Gauze & Roll Gauze,Secured Gauze,Secured with Tape with Tape -Other Covering bereket Treatment Response Procedure Procedure Tolerated Well Tolerated Well Vital Signs Blood Pressure (90/60-120/80) 155/68 H 145/75 H Blood Pressure Mean (mm Hg) 97 98 Source Monitor Monitor Position Semi-Fowlers Semi-Fowlers Blood Pressure Location Left Arm Left Arm Pain Scale: 0-10 Numeric Is Patient Pain Free? Yes Yes WC - Visit Discharge Discharge Condition Stable Ambulatory Status Wheelchair Transportation Private Auto Medication Reconcilliation completed & No No provided to patient/care provider Clinical Summary of Care Provided Yes Yes Wound debrided: leg Laterality: Left Type of Debridement: Excisional debridement Anesthesia Used: 5% Lidocaine Gel Depth: in the subcutaneous layer Percentage of wound debrided: 100 Instrument Used: 5mm curette Tissue Removed: fibrous, devitalized subcutaneous, biofilm, slough Severity: Fat Layer Exposed Amount of bleeding with debridement: Mild Bleeding Controlled with: Pressure Patient tolerated procedure well Assessment/Plan Active Problems (Last Reviewed 04/11/20 @ 14:[address] Yefri Rubio MD) Localized edema (Chronic) Cellulitis of left lower extremity (Acute) Delayed wound healing (Chronic) Venous insufficiency (Chronic) left Greater saphenous vein Other specified peripheral vascular diseases (Chronic) bilateral lower extremity Assessment: Left leg ulcer with fat layer /partial fascial layer no longer exposed, stable. Recent cellulitis left lower extremity now reoccurrence - some improvement from last week. C. difficile, being treated with tapered oral vancomycin under the management of infectious disease. 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 bacterial colonization with Pseudomonas treated with antibiotics under infectious disease management -medically treated. Leg edema. Venous insufficiency. Peripheral vascular disease. Delayed healing. Malnutrition suspected Plan: I reviewed and discussed her case today. Debridement was performed as noted in the clinical panel today. Her leg was washed with soap and water. I recommend changing the dressing with Dakin wet-to-dry dressing every other day. She was advised to alternate this with every other day Santyl applications applied nickel thickness. I do not appreciate any purulence or systemic illness on exam today. Her increased drainage is noted and recent lack of compression therapy. She had cellulitis clinically noted a couple of weeks ago and was restarted on cefdinir, Flagyl, and doxycycline. Culture results did not demonstrate continued need for flagyl so this was discontinued. She has a complicated course and infectious disease recommendations are recommended within the next 1 to 2 weeks. I would like to consider levofloxacin after discussion with ID and if her vanco dose needs to be adjusted. Venous reflux evaluation test was previously ordered. She was advised to avoid idle sitting and standing and to elevate the limb to control edema. She has been having some work done at home and this is difficult for her. If she has continued pain particularly with leg elevation, I recommend she intermittently dangles the leg as well. I also recommend she proceeds with noninvasive arterial study. This was performed and she has already completed the additional recommended tests by vascular surgery. I reviewed Dr. Morel's plan and documentation. She additionally had an updated test performed and intervention is not recommended at this time from an arterial standpoint. Due to her overall lack of progress I recommend she returns early to see if intervention is possible. She would also like to consider a second opinion with her 's vascular specialist and will consider the referral over the next week. She understands any considered intervention is definitely not recommended while she has any type of infection or bacterial contamination. She does also have significant bilateral lower extremity monophasic waveforms with ABIs of around 0.5 bilaterally. Her prior labs were reviewed. Her prealbumin was 19.8 and proper nutrition and supplementation was reviewed. To proceed with a proper control diet and nutrition supplementation to optimize healing. I answered all of her questions and explained the etiology of ulcer causes and the comprehensive wound healing plan. She was advised to return to clinic in 1 week. . 2020 quality measures reviewed as the following: medication and allergy reconciliation was performed. Reviewed 12-27-2019: She denies falling this past year. Reviewed 11/15/2019-pneumonia vaccination was confirmed, influenza immunization was confirmed for this current season in July 2019, advanced care plan was confirmed with living will, she is a current tobacco non user, her blood pressure is elevated over 120/80 and I recommend she follows up with her primary care physician for medical management of this. Diet and exercise benefits were also discussed for educational purposes to optimize her wound healing and medical management.
[2020-10-30 14:28] VITALS: BP 135/60; PULSE 96; BMI 26.8
--- NOTE | 2020-10-30 15:25 | PCM.PN.ID ---
Patient Problems: Active and Suspected Problems (Last Reviewed 04/11/20 @ 14:[address] Yefri Rubio MD) Cellulitis of left lower extremity (Acute) Subjective: Feeling ok, no diarrhea, leg wound not much better. No fever. - Physical Exam Vitals/I&O's: Vital Signs Temp Pulse Resp BP 99.1 F 96 18 135/60 H 10/23/20 15:14 10/30/20 14:28 10/23/20 15:14 10/30/20 14:28 Oxygen Flow Rate (L/min) 2 Weight: 63.503 kg Body Mass Index (BMI) 26.8 General: Alert, Cooperative, No apparent distress Lungs: Clear to auscultation, Normal air movement Cardiovascular: Regular rate, Regular Rhythm Abdomen: Soft, Non Tender, Non-Distended Skin: Ulcer/ Wound Medical Necessity - Tobacco Use Smoking Status: Former smoker Route of nutrition/ use of supplements: [] Nutritional Intake: [] IV Site: [] [place] Catheter: [] - Assessment/Plan Antibiotics: [] Assessment/Plan: [] Active and Suspected Problems (Last Reviewed 04/11/20 @ 14:[address] Yefri Rubio MD) Cellulitis of left lower extremity (Acute) Recent cx with PsA and MSSA. On doxy and levaquin, mild improvement so far. Will extend course. Is on po vanc bid for cdiff proph. Once abx are done, she should go down to once a day for a week, then q2day after that. Will also give rx for fluc for yeast infection. Return to clinic in 2 weeks, d/w Dr. Cooper.
--- NOTE | 2020-10-30 17:17 | PN.PCM_ITS ---
(1) Localized edema Status: Chronic Code(s): R60.0 - Localized edema (2) Cellulitis of left lower extremity Status: Acute Code(s): L03.116 - Cellulitis of left lower limb (3) Delayed wound healing Status: Chronic Code(s): T14.8XXD - Other injury of unspecified body region, subsequent encounter (4) Venous insufficiency Status: Chronic Code(s): I87.2 - Venous insufficiency (chronic) (peripheral) Comment: left Greater saphenous vein (5) Other specified peripheral vascular diseases Status: Chronic Code(s): I73.89 - Other specified peripheral vascular diseases Comment: bilateral lower extremity (6) Ulcer of left lower extremity with fat layer exposed Status: Chronic Code(s): L97.922 - Non-pressure chronic ulcer of unspecified part of left lower leg with fat layer exposed Type of Wound Date of Service: 10/30/20 Chief Complaint: Left leg ulcer History of Wound: This 70-year-old female with significant past medical history of polio with several medical sequela sustained a left leg ulcer that dates back to 2015. She tries to elevate and admits she discontinued bereket wraps the past couple of days due to discomfort. She was previously seen by vascular surgery. Intervention was not recommended and this is something that could be considered in the future after her infection status remains stable. She would like to consider a vascular second opinion (with her 's vascular specialist, Dr. Archibald) but is apprehensive becausee she had a lot of swelling after one of her prior vascular tests and this was uncomfortable (per her daughter). She has recently been changing the dressing with Dakin's solution wet-to-dry and also Santyl every other day. She continues on oral vancomycin for treatment of chronic and recurrent C. difficile once every three days. She is trying to elevate at home however admits this is a challenge. She refuses full debridement today. Progress of Wound: Cellulitis improving. Ulcer stable - Physical Exam Vital Signs Temp Pulse Resp BP 99.1 F 96 18 135/60 H 10/23/20 15:14 10/30/20 14:28 10/23/20 15:14 10/30/20 14:28 General: Alert, Oriented x3, Cooperative, No apparent distress HEENT: Atraumatic Extremities: No cyanosis, Capillary Refill Less than 3 Seconds, No Calf Tenderness, Diminished Peripheral Pulses, Edema - Continued Skin: Ulcer/ Wound - No purulence or odor noted. The erythema is less intense. She does not have streaking. There is no bogginess or fluctuance on palpation. Wound Measurements and Assessment WC - Nurse 1 - General Ulcer Measurement Start: 10/16/20 14:44 Freq: Status: Active Protocol: Activity Type Activity Date Activity User E-Sign Co-Sign Detail Recorded Client Recorded Date Recorded By Document 10/30/20 14:28 OLLIE [id number] 10/30/20 14:35 OLLIE 10/30/20 14:28 Wound Center Nurse 1 [Ulcer Assessment] #1 LLE -Current Size (cm) - Length 8.2 -Current Size (cm) - Width 7 -Current Size (cm) - Depth 0.3 -Total Square Cm 57.4 -Exudate Amt Medium -Exudate Type Yellow/Green -Wound Margin Distinct, Outline Attached -Necrosis Amt Large (67-100%) -Necrotic Tissue Type Adherent Slough -Texture (Susana-wound Skin Appearance) Assessed, Scarring -Temperature (Susana-wound Skin No Abnormality Appearance) (Pt Warm) -Tenderness on Palpation (Susana-wound No Skin Appearance) -Ulcer Cleansing soap and water -Foul Odor after Cleansing No -Anesthetic Used 4% Lidocaine Solution,5% Lidocaine Gel - Nurse 2 - General Ulcer CM Notes Start: 10/16/20 14:44 Freq: Status: Active Protocol: Activity Type Activity Date Activity User E-Sign Co-Sign Detail Recorded Client Recorded Date Recorded By Document 10/30/20 14:40 FELISHA [id number] 10/30/20 14:42 FELISHA 10/30/20 14:40 Wound Center Nurse 2 [Procedure/Treatment] -Time 14:40 -Correct Patient Yes -Correct Side, Site, Position Yes -Correct Procedure Yes -Procedure Performed Yes -Type of Procedure Debridement -Clinical Debridement Epidermis / Dermis -Tissue Removed Epidermis, Dermis -Post Debridement (cm) - Length 8.2 -Post Debridement (cm) - Width 7 -Post Debridement (cm) - Depth 0.3 -Total Square (Post) (cm) 57.4 -Area of Debridement (cm) - Length 8.2 -Area of Debridement (cm) - Width 7 -Total Square (Area) (cm) 57.4 -Tunneling No -Undermining/Tunneling No -Circular Undermining No -Wound/Ulcer Outcome Not Healed -Ulcer Cleansing Rinsed/ Irrigated with Saline -Foul Odor after Cleansing No -Bioengineered Tissue No -Bleeding Controlled with Pressure -Offloading No -Treatment Response Procedure Tolerated Well -Debridement - Open, 1st 20sq cm Yes -Debridement, Open, ea addt'l 20sq cm 2 or part thereof [See Physician Procedure note for Specifics] Pain Scale: 0-10 Numeric [Pain] -Is Patient Pain Free? Yes - Nurse 3 - General Ulcer D/C NN Start: 10/16/20 14:44 Freq: Status: Active Protocol: Activity Type Activity Date Activity User E-Sign Co-Sign Detail Recorded Client Recorded Date Recorded By Document 10/30/20 14:51 OLLIE [id number] 10/30/20 14:51 OLLIE 10/30/20 14:51 Wound Care Nurse 3 [Wound Dressing] #1 LLE -Ulcer Cleansing Rinsed/ Irrigated with Saline -Foul Odor after Cleansing No -Primary Dressing Applied C Hydrogel ($), NonAdherent Contact Layer -Primary Dressing Covered/Secured Dry Gauze & with Roll Gauze, Secured with Tape Pain Scale: 0-10 Numeric [Pain] -Is Patient Pain Free? Yes - Visit Discharge [Visit Discharge Information] -Discharge Condition Stable -Ambulatory Status Wheelchair -Transportation Private Auto -Accompanied by daughter Musculoskeletal: Muscle Wasting Neurological: Sensory exam intact to light touch and pain - Hypersensitivity Psych/Mental Status: Normal Affect, Appropriate Debridement Note Post-Debridement Measurements/Treatment - Nurse 2 - General Ulcer CM Notes Start: 10/16/20 14:44 Freq: Status: Active Protocol: Activity Type Activity Date Activity User E-Sign Co-Sign Detail Recorded Client Recorded Date Recorded By Document 10/16/20 15:38 [id number] 10/16/20 15:39 Document 10/23/20 15:49 [id number] 10/23/20 15:55 Document 10/30/20 14:40 [id number] 10/30/20 14:42 10/16/20 10/23/20 10/30/20 15:38 15:49 14:40 Wound Center Nurse 2 #1 LLE -Time 15:38 15:53 14:40 -Correct Patient Yes Yes Yes -Correct Side, Site, Position Yes Yes Yes -Correct Procedure Yes Yes Yes -Procedure Performed Yes Yes -Type of Procedure Debridement Debridement Debridement -Clinical Debridement Subcutaneous Subcutaneous Epidermis / Dermis -Tissue Removed Subcutaneous Subcutaneous Epidermis, Dermis -Post Debridement (cm) - Length 8.0 8.5 8.2 -Post Debridement (cm) - Width 7.2 7.4 7 -Post Debridement (cm) - Depth 0.3 0.4 0.3 -Total Square (Post) (cm) 57.60 62.90 57.4 -Area of Debridement (cm) - Length 8.0 8.5 8.2 -Area of Debridement (cm) - Width 7.2 7.4 7 -Total Square (Area) (cm) 57.60 62.90 57.4 -Tunneling No No No -Undermining/Tunneling No No No -Circular Undermining No No No -Wound/Ulcer Outcome Not Healed Not Healed Not Healed -Ulcer Cleansing Rinsed/ Rinsed/ Rinsed/ Irrigated with Irrigated with Irrigated with Saline Saline Saline -Foul Odor after Cleansing No No No -Bioengineered Tissue No No No -Bleeding Controlled with Pressure Pressure Pressure -Offloading No No No -Treatment Response Procedure Procedure Procedure Tolerated Well Tolerated Well Tolerated Well -Debridement - Open, 1st 20sq cm Yes -Debridement, Open, ea addt'l 20sq cm 2 or part thereof -Debridement - Subq, 1st 20sq cm Yes Yes -Debridement, SubQ, ea addt'l 20sq cm 2 3 or part thereof Pain Scale: 0-10 Numeric Is Patient Pain Free? Yes Yes Yes WC - Nurse 3 - General Ulcer D/C NN Start: 10/16/20 14:44 Freq: Status: Active Protocol: Activity Type Activity Date Activity User E-Sign Co-Sign Detail Recorded Client Recorded Date Recorded By Document 10/16/20 15:53 RB [id number] 10/16/20 15:55 RB Document 10/23/20 16:05 RB [id number] 10/23/20 16:06 RB Document 10/30/20 14:51 KR [id number] 10/30/20 14:51 KR 10/16/20 10/23/20 10/30/20 15:53 16:05 14:51 Wound Care Nurse 3 #1 LLE -Ulcer Cleansing Rinsed/ Rinsed/ Rinsed/ Irrigated with Irrigated with Irrigated with Saline Saline Saline -Foul Odor after Cleansing No -Primary Dressing Applied NonAdherent NonAdherent C Hydrogel ($), Contact Layer Contact Layer NonAdherent Contact Layer -Other Dressing hydrogel, hydrogel, adatic kerramax kerramax -Primary Dressing Covered/Secured with Dry Gauze,Dry Dry Gauze,Dry Dry Gauze & Gauze & Roll Gauze & Roll Roll Gauze, Gauze,Secured Gauze,Secured Secured with with Tape with Tape Tape -Other Covering bereket Treatment Response Procedure Procedure Tolerated Well Tolerated Well Vital Signs Blood Pressure (90/60-120/80) 155/68 H 145/75 H Blood Pressure Mean (mm Hg) 97 98 Source Monitor Monitor Position Semi-Fowlers Semi-Fowlers Blood Pressure Location Left Arm Left Arm Pain Scale: 0-10 Numeric Is Patient Pain Free? Yes Yes Yes WC - Visit Discharge Discharge Condition Stable Stable Ambulatory Status Wheelchair Wheelchair Transportation Private Auto Private Auto Accompanied by daughter Medication Reconcilliation completed & No No provided to patient/care provider Clinical Summary of Care Provided Yes Yes Wound debrided: leg Laterality: Left Type of Debridement: Selective debridement Anesthesia Used: 4% Lidocaine Solution Depth: in the subcutaneous layer Percentage of wound debrided: 100 Instrument Used: 5mm curette Tissue Removed: fibrous, devitalized tissue, biofilm, slough (refuses subcut. debridement) Severity: Fat Layer Exposed Amount of bleeding with debridement: Mild Bleeding Controlled with: Pressure Patient tolerated procedure well Assessment/Plan Active Problems (Last Reviewed 04/11/20 @ 14:[address] Yefri Rubio MD) Localized edema (Chronic) Cellulitis of left lower extremity (Acute) Ulcer of left lower extremity with fat layer exposed (Chronic) Delayed wound healing (Chronic) Venous insufficiency (Chronic) left Greater saphenous vein Other specified peripheral vascular diseases (Chronic) bilateral lower extremity Assessment: Left leg ulcer with fat layer /partial fascial layer no longer exposed, stable. Recent cellulitis left lower extremity now reoccurrence - some improvement from last week. C. difficile, being treated with tapered oral vancomycin under the management of infectious disease. 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 bacterial colonization with Pseudomonas treated with antibiotics under infectious disease management -medically treated. Leg edema. Venous insufficiency. Peripheral vascular disease. Delayed healing. Malnutrition suspected Plan: I reviewed and discussed her case today. Debridement was performed as noted in the clinical panel today. Her leg was washed with soap and water. I recommend changing the dressing with Dakin wet-to-dry dressing every other day. She was advised to alternate this with every other day Santyl applications ap plied nickel thickness. I do not appreciate any purulence or systemic illness on exam today. Her increased drainage is noted and recent lack of compression therapy. She has a complicated course. Her cultures were reviewed and she was seen by infectious disease today as well. To continue Levaquin. A prescription for Diflucan was provided for her yeast infection. She also continue on oral vancomycin for C. difficile management. Venous reflux evaluation test was previously ordered. She was advised to avoid idle sitting and standing and to elevate the limb to control edema. If she has continued pain particularly with leg elevation, I recommend she intermittently dangles the leg as well. I also recommend she proceeds with noninvasive arterial study. This was performed and she has already completed the additional recommended tests by vascular surgery. I reviewed Dr. Morel's plan and documentation. She additionally had an updated test performed and intervention is not recommended at this time from an arterial standpoint. Due to her overall lack of progress I recommend she returns early to see if intervention is possible. She would also like to consider a second opinion with her 's vascular specialist and will consider the referral over the next week. She understands any considered intervention is definitely not recommended while she has any type of infection or bacterial contamination. She does also have significant bilateral lower extremity monophasic waveforms with ABIs of around 0.5 bilaterally. Her prior labs were reviewed. Her prealbumin was 19.8 and proper nutrition and supplementation was reviewed. To proceed with a proper control diet and nutrition supplementation to optimize healing. I answered all of her questions and explained the etiology of ulcer causes and the comprehensive wound healing plan. She was advised to return to clinic in 1 week. . 2020 quality measures reviewed as the following: medication and allergy reconciliation was performed. Reviewed 12-27-2019: She denies falling this past year. Reviewed 11/15/2019-pneumonia vaccination was confirmed, influenza immunization was confirmed for this current season in July 2019, advanced care plan was confirmed with living will, she is a current tobacco non user, her blood pressure is elevated over 120/80 and I recommend she follows up with her primary care physician for medical management of this. Diet and exercise benefits were also discussed for educational purposes to optimize her wound healing and medical management.
== END 2020-11-07 23:59 ==
LOC: WC 14:45
PROVIDERS: Referring Provider Podiatrist; Visit Provider Podiatrist
DX: I87.2 Venous insufficiency (chronic) (peripheral) (principal); L97.822 Non-pressure chronic ulcer of other part of left lower leg with fat layer exposed; L03.116 Cellulitis of left lower limb; B95.61 Methicillin susceptible Staphylococcus aureus infection as the cause of diseases classified elsewhere; R60.0 Localized edema; I73.9 Peripheral vascular disease, unspecified; A04.71 Enterocolitis due to Clostridium difficile, recurrent; Z79.82 Long term (current) use of aspirin; Z79.52 Long term (current) use of systemic steroids; Z79.899 Other long term (current) drug therapy; Z86.12 Personal history of poliomyelitis; Z87.891 Personal history of nicotine dependence
CPT/HCPCS: 11042; 11045; 80053; 85025; 85652; 86140; 87015; 87070; 87075; 87077; 87101; 87116; 87176; 87186; 87205; 87206; 87640; 97597; 97598

== ENCOUNTER 2020-11-27 14:30 | Outpatient (RCR) | payer MEDICARE, OTHER, SELFPAY ==
[2020-11-08 00:18] VITALS: BP 135/60; PULSE 96; RESP 18; TEMP 37.3
[2020-11-13 15:15] VITALS: BP 139/62; PULSE 99; RESP 20; TEMP 36.8; BMI 26.8
--- NOTE | 2020-11-13 15:52 | PN.PCM_ITS ---
(1) Cellulitis of left lower extremity Status: Resolved Code(s): L03.116 - Cellulitis of left lower limb (2) Delayed wound healing Status: Chronic Code(s): T14.8XXD - Other injury of unspecified body region, subsequent encounter (3) Former tobacco use Status: Chronic Code(s): Z87.891 - Personal history of nicotine dependence (4) Leg edema, left Status: Chronic Code(s): R60.0 - Localized edema (5) Other specified peripheral vascular diseases Status: Chronic Code(s): I73.89 - Other specified peripheral vascular diseases Comment: bilateral lower extremity Type of Wound Date of Service: 11/13/20 Chief Complaint: Left leg ulcer History of Wound: This 70-year-old female with significant past medical history of polio with several medical sequela sustained a left leg ulcer that dates back to 2015. She tries to elevate and admits she discontinued bereket wraps the past couple of days due to discomfort. She was previously seen by vascular surgery. Intervention was not recommended and this is something that could be considered in the future after her infection status remains stable. She would like to consider a vascular second opinion (with her 's vascular specialist, Dr. Archibald) but is apprehensive becausee she had a lot of swelling after one of her prior vascular tests and this was uncomfortable (per her daughter). She has recently been changing the dressing with Dakin's solution wet-to-dry and also Santyl every other day. She continues on oral vancomycin for treatment of chronic and recurrent C. difficile. Progress of Wound: Cellulitis improving. Ulcer stable - Physical Exam Vital Signs Temp Pulse Resp BP 98.2 F 99 20 H 139/62 H 11/13/20 15:15 11/13/20 15:15 11/13/20 15:15 11/13/20 15:15 General: Alert, Oriented x3, Cooperative, No apparent distress Extremities: No cyanosis, Capillary Refill Less than 3 Seconds, No Calf Tenderness, Diminished Peripheral Pulses, Edema Skin: Ulcer/ Wound - No purulence, erythema, streaking. Periulcer inflammation has reduced. No deep tissue exposure or necrosis. The wound bed is very fibrous with a small area of granulation tissue. She has skin peeling and continued weeping drainage. Wound Measurements and Assessment WC - Nurse 1 - General Ulcer Measurement Start: 11/13/20 15:14 Freq: Status: Active Protocol: Activity Type Activity Date Activity User E-Sign Co-Sign Detail Recorded Client Recorded Date Recorded By Document 11/13/20 15:15 DL [id number] 11/13/20 15:25 DL 11/13/20 15:15 Wound Center Nurse 1 [Ulcer Assessment] #1 LLE -Combined with other wound No -Current Size (cm) - Length 10.5 -Current Size (cm) - Width 25 -Current Size (cm) - Depth 0.4 -Total Square Cm 262.5 -Tunneling No -Undermining/Tunneling No -Circular Undermining No -Exudate Amt Large -Exudate Type Serosanguineous -Wound Margin Flat & Intact -Granulation Amt Medium (34-66%) -Granulation Quality [place],Red -Slough/Fibrin Yes -Necrosis Amt Medium (34-66%) -Necrotic Tissue Type Adherent Slough -Structure Exposed N/A -Texture (Susana-wound Skin Appearance) Excoriation, Friable -Moisture (Susana-wound Skin Appearance Maceration ) -Color (Susana-wound Skin Appearance) Assessed -Temperature (Susana-wound Skin No Abnormality Appearance) (Pt Warm) -Tenderness on Palpation (Susana-wound No Skin Appearance) -Ulcer Cleansing Wound Cleanser -Foul Odor after Cleansing No -Anesthetic Used 4% Lidocaine Solution,5% Lidocaine Gel WC - Nurse 3 - General Ulcer D/C NN Start: 11/13/20 15:14 Freq: Status: Active Protocol: Activity Type Activity Date Activity User E-Sign Co-Sign Detail Recorded Client Recorded Date Recorded By Document 11/13/20 15:50 DL [id number] 11/13/20 15:51 DL 11/13/20 15:50 Wound Care Nurse 3 [Wound Dressing] -Ulcer Cleansing Rinsed/ Irrigated with Saline -Foul Odor after Cleansing No -Primary Dressing Applied Aquacel AG 4x4, NonAdherent Contact Layer -Other Dressing hydrogel -Primary Dressing Covered/Secured Dry Gauze & with Roll Gauze, Secured with Tape -Aquacel AG 4x4 1 [Post Procedure Tolerated] -Treatment Response Procedure Tolerated Well Pain Scale: 0-10 Numeric [Pain] -Is Patient Pain Free? 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 Compartments remain soft to palpate Neurological: Sensory exam intact to light touch and pain Psych/Mental Status: Normal Affect, Appropriate, Anxious Debridement Note Post-Debridement Measurements/Treatment - Nurse 3 - General Ulcer D/C NN Start: 11/13/20 15:14 Freq: Status: Active Protocol: Activity Type Activity Date Activity User E-Sign Co-Sign Detail Recorded Client Recorded Date Recorded By Document 11/13/20 15:50 DL [id number] 11/13/20 15:51 DL 11/13/20 15:50 Wound Care Nurse 3 #1 LLE -Ulcer Cleansing Rinsed/ Irrigated with Saline -Foul Odor after Cleansing No -Primary Dressing Applied Aquacel AG 4x4, NonAdherent Contact Layer -Other Dressing hydrogel -Primary Dressing Covered/Secured with Dry Gauze & Roll Gauze, Secured with Tape -Aquacel AG 4x4 1 Treatment Response Procedure Tolerated Well Pain Scale: 0-10 Numeric Is Patient Pain Free? Yes WC - Visit Discharge Discharge Condition Stable Ambulatory Status Wheelchair Transportation Private Auto Accompanied by family Wound debrided: leg Laterality: Left Type of Debridement: Excisional debridement Anesthesia Used: 4% Lidocaine Solution, 5% Lidocaine Gel Depth: in the subcutaneous layer Percentage of wound debrided: 100 Instrument Used: #15 blade Tissue Removed: fibrous, devitalized subcutaneous, bioflim, slough Severity: Fat Layer Exposed Amount of bleeding with debridement: Mild Bleeding Controlled with: Pressure Patient tolerated procedure well Additional crosshatching was applied to allow improved collagenase entry Assessment/Plan Active Problems Delayed wound healing (Chronic) Other specified peripheral vascular diseases (Chronic) bilateral lower extremity Leg edema, left (Chronic) Former tobacco use (Chronic) Assessment: Left leg ulcer with fat layer /partial fascial layer no longer exposed, stable. Recent cellulitis left lower extremity resolved. Peripheral vascular disease. C. difficile, being treated with tapered oral vancomycin under the management of infectious disease. 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 bacterial colonization with Pseudomonas treated with antibiotics under infectious disease management -medically treated. Leg edema. Venous insufficiency. Delayed healing. Malnutrition suspected Plan: I reviewed and discussed her case today. Debridement was performed as noted in the clinical panel today. Her leg was washed with soap and water. I recommend changing the dressing with Dakin wet-to-dry dressing every other day. She was advised to alternate this with every other day Santyl applications applied nickel thickness. I do not appreciate any purulence or systemic illness on exam today. Venous reflux evaluation test was previously ordered. She was advised to avoid idle sitting and standing and to elevate the limb to control edema. If she has continued pain particularly with leg elevation, I recommend she intermittently dangles the leg as well. I also recommend she proceeds with noninvasive arterial study. This was performed and she has already completed the additional recommended tests by vascular surgery. I reviewed Dr. Morel's plan and documentation. She additionally had an updated test performed and intervention is not recommended at this time from an arterial standpoint. Due to her overall lack of progress I recommend she returns early to see if intervention is possible. She would also like to consider a second opinion with her 's vascular specialist and will consider the referral over the next week. She understands any considered intervention is definitely not recommended while she has any type of infection or bacterial contamination. She does also have significant bilateral lower extremity monophasic waveforms with ABIs of around 0.5 bilaterally. She is apprehensive about this process and I strongly encouraged her to follow-up with a vascular specialist due to her continued lack of healing. Currently she is on more of a palliative type program. Her prior labs were reviewed. Her prealbumin was 19.8 and proper nutrition and supplementation was reviewed. To proceed with a proper control diet and nutrition supplementation to optimize healing. I answered all of her questions and explained the etiology of ulcer causes and the comprehensive wound healing plan. She was advised to return to clinic in 1 week. . 20 minutes was spent on this encounter. This included face to face and non face to face care including preparing for the visit, reviewing the history, performing the exam, counseling and providing education to the patient, family, or caregiver, ordering medications/test/ procedures if indicated as documented, communicating with other healthcare providers, documenting information in the medical record, interpreting / sharing this information when indicated as documented, and care coordination. Note: [employer] speech recognition group fitness assistant department head software was used to create portions of this document. Sound-alike and misspelled words, as well as other group fitness assistant department head errors may be contained in the documentation. . [employer] 2020: Reviewed today: Medications and allergies were reviewed and reconciled. Reviewed 11-13-2020: BMI 29.3. Blood pressure 139/62. The systolic over 120 elevated and she follow-up with her primary care physician. Diet and activity recommendations were reviewed to optimize ulcer healing and overall health. She received a flu vaccination. Is noted she was a former smoker and is not currently a tobacco user. She does not have a living will on file.
[2020-11-27 14:33] VITALS: BP 131/104; PULSE 98; RESP 20; TEMP 37.2; BMI 26.8
[2020-11-27 15:27] VITALS: BP 131/88
--- NOTE | 2020-11-27 15:37 | PN.PCM_ITS ---
(1) Ulcer of left lower extremity with fat layer exposed Status: Chronic Code(s): L97.922 - Non-pressure chronic ulcer of unspecified part of left lower leg with fat layer exposed (2) Delayed wound healing Status: Chronic Code(s): T14.8XXD - Other injury of unspecified body region, subsequent encounter (3) Former tobacco use Status: Chronic Code(s): Z87.891 - Personal history of nicotine dependence (4) Leg edema, left Status: Chronic Code(s): R60.0 - Localized edema (5) Other specified peripheral vascular diseases Status: Chronic Code(s): I73.89 - Other specified peripheral vascular diseases Comment: bilateral lower extremity Type of Wound Date of Service: 11/27/20 Chief Complaint: Left leg ulcer History of Wound: This 70-year-old female with significant past medical history of polio with several medical sequela sustained a left leg ulcer that dates back to 2016. She was previously seen by vascular surgery. Intervention was not recommended and this is something that could be considered in the future after her infection status remains stable. She no longer wants to proceed proceed forward with further vascular evaluation at this time. She was also previously considering a vascular second opinion (with her 's vascular specialist, Dr. Archibald). She has recently been changing the dressing with santyl and adaptic. She continues on oral vancomycin for treatment of chronic and recurrent C. difficile. She denies fever, chills, nausea, vomiting. Her leg is painful. She denies odor or redness. She is with her sister today. Progress of Wound: Ulcer stable with delayed healing - Physical Exam Vital Signs Temp Pulse Resp BP 98.9 F 98 20 H 131/88 H 11/27/20 14:33 11/27/20 14:33 11/27/20 14:33 11/27/20 15:27 General: Alert, Oriented x3, Cooperative Extremities: No cyanosis, Capillary Refill Less than 3 Seconds, No Calf Tenderness - negative left staton sign. 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 compartments soft to palpate left lower extremity, Diminished Peripheral Pulses, Edema, Tenderness - ulcer palpation Skin: Ulcer/ Wound - no purulence, no erythema, no streaking, no odor, no infection. ulcer is 90% fibrous and 10% granular w/out exposed deep tissue. progressive peripheral site is now with skin discontinuity lesions (subhemorrhagic / granular). adjacent skin is hairless and atrophic Wound Measurements and Assessment WC - Nurse 1 - General Ulcer Measurement Start: 11/13/20 15:14 Freq: Status: Active Protocol: Activity Type Activity Date Activity User E-Sign Co-Sign Detail Recorded Client Recorded Date Recorded By Document 11/27/20 14:33 DL [id number] 11/27/20 14:47 DL 11/27/20 14:33 Wound Center Nurse 1 [Ulcer Assessment] #1 LLE -Current Size (cm) - Length 9.3 -Current Size (cm) - Width 17 -Current Size (cm) - Depth 0.1 -Total Square Cm 158.1 -Photo Taken No -Exudate Amt Medium -Exudate Type Serosanguineous -Wound Margin Distinct, Outline Attached -Granulation Amt Medium (34-66%) -Granulation Quality Red -Necrosis Amt Medium (34-66%) -Necrotic Tissue Type Adherent Slough -Structure Exposed N/A -Texture (Susana-wound Skin Appearance) Scarring -Moisture (Susana-wound Skin Appearance Weeping ) -Color (Susana-wound Skin Appearance) Hemosiderin Staining -Temperature (Susana-wound Skin No Abnormality Appearance) (Pt Warm) -Tenderness on Palpation (Susana-wound Yes Skin Appearance) -Ulcer Cleansing Wound Cleanser -Foul Odor after Cleansing No -Anesthetic Used 4% Lidocaine Solution,5% Lidocaine Gel WC - Nurse 2 - General Ulcer CM Notes Start: 11/13/20 15:14 Freq: Status: Active Protocol: Activity Type Activity Date Activity User E-Sign Co-Sign Detail Recorded Client Recorded Date Recorded By Document 11/27/20 15:09 [email or web address] [id number] 11/27/20 15:20 11/27/20 15:09 Wound Center Nurse 2 [Procedure/Treatment] -Time 15:09 -Correct Patient Yes -Correct Side, Site, Position Yes -Correct Procedure Yes -Procedure Performed Yes -Type of Procedure Debridement -Clinical Debridement Subcutaneous -Tissue Removed Subcutaneous -Post Debridement (cm) - Length 9.5 -Post Debridement (cm) - Width 17 -Post Debridement (cm) - Depth 0.1 -Total Square (Post) (cm) 161.5 -Area of Debridement (cm) - Length 9.5 -Area of Debridement (cm) - Width 17 -Total Square (Area) (cm) 161.5 -Tunneling No -Undermining/Tunneling No -Circular Undermining No -Wound/Ulcer Outcome Not Healed -Ulcer Cleansing Rinsed/ Irrigated with Saline -Foul Odor after Cleansing No -Bioengineered Tissue No -Bleeding Controlled with Pressure -Offloading No -Treatment Response Procedure Tolerated Well -Debridement - Subq, 1st 20sq cm Yes -Debridement, SubQ, ea addt'l 20sq cm 8 or part thereof [See Physician Procedure note for Specifics] WC - Nurse 3 - General Ulcer D/C NN Start: 11/13/20 15:14 Freq: Status: Active Protocol: Activity Type Activity Date Activity User E-Sign Co-Sign Detail Recorded Client Recorded Date Recorded By Document 11/27/20 15:27 RB [id number] 11/27/20 15:29 RB 11/27/20 15:27 Wound Care Nurse 3 [Wound Dressing] #1 LLE -Ulcer Cleansing Rinsed/ Irrigated with Saline -Primary Dressing Applied NonAdherent Contact Layer -Other Dressing HYDROGEL AROUND PERIULCER, SUPPER ABSORBANT DRESSSING APPLIED -Primary Dressing Covered/Secured Dry Gauze & with Roll Gauze, Secured with Tape -Other Covering HOLLIE Vital Signs [Blood Pressure] -Blood Pressure (90/60-120/80) 131/88 H -Blood Pressure Mean (mm Hg) 102 -Source Monitor -Position Sitting -Blood Pressure Location Right Arm Pain Scale: 0-10 Numeric [Pain] -Is Patient Pain Free? Yes - Visit Discharge [Visit Discharge Information] -Discharge Condition Stable -Ambulatory Status Wheelchair -Transportation Private Auto -Medication Reconcilliation completed No & provided to patient/care provider -Clinical Summary of Care Provided Yes Musculoskeletal: Muscle Wasting Neurological: Sensory exam intact to light touch and pain Psych/Mental Status: Normal Affect, Appropriate, Anxious Debridement Note Post-Debridement Measurements/Treatment WC - Nurse 2 - General Ulcer CM Notes Start: 11/13/20 15:14 Freq: Status: Active Protocol: Activity Type Activity Date Activity User E-Sign Co-Sign Detail Recorded Client Recorded Date Recorded By Document 11/13/20 16:36 PL [id number] 11/13/20 16:37 PL Document 11/27/20 15:09 JF [id number] 11/27/20 15:20 JF 11/13/20 11/27/20 16:36 15:09 Wound Center Nurse 2 #1 LLE -Time 15:38 15:09 -Correct Patient Yes Yes -Correct Side, Site, Position Yes Yes -Correct Procedure Yes Yes -Procedure Performed Yes Yes -Type of Procedure Debridement Debridement -Clinical Debridement Subcutaneous Subcutaneous -Tissue Removed Subcutaneous Subcutaneous -Post Debridement (cm) - Length 10.5 9.5 -Post Debridement (cm) - Width 25 17 -Post Debridement (cm) - Depth 0.4 0.1 -Total Square (Post) (cm) 262.5 161.5 -Area of Debridement (cm) - Length 10.5 9.5 -Area of Debridement (cm) - Width 25 17 -Total Square (Area) (cm) 262.5 161.5 -Tunneling No No -Undermining/Tunneling No No -Circular Undermining No No -Wound/Ulcer Outcome Not Healed Not Healed -Ulcer Cleansing Rinsed/ Rinsed/ Irrigated with Irrigated with Saline Saline -Foul Odor after Cleansing No No -Bioengineered Tissue No No -Bleeding Controlled with Pressure -Offloading No -Treatment Response Procedure Tolerated Well -Debridement - Subq, 1st 20sq cm Yes Yes -Debridement, SubQ, ea addt'l 20sq cm 5 8 or part thereof Pain Scale: 0-10 Numeric Is Patient Pain Free? Yes WC - Nurse 3 - General Ulcer D/C NN Start: 11/13/20 15:14 Freq: Status: Active Protocol: Activity Type Activity Date Activity User E-Sign Co-Sign Detail Recorded Client Recorded Date Recorded By Document 11/13/20 15:50 DL [id number] 11/13/20 15:51 DL Document 11/27/20 15:27 RB [id number] 11/27/20 15:29 RB 11/13/20 11/27/20 15:50 15:27 Wound Care Nurse 3 #1 LLE -Ulcer Cleansing Rinsed/ Rinsed/ Irrigated with Irrigated with Saline Saline -Foul Odor after Cleansing No -Primary Dressing Applied Aquacel AG 4x4, NonAdherent NonAdherent Contact Layer Contact Layer -Other Dressing hydrogel HYDROGEL AROUND PERIULCER, SUPPER ABSORBANT DRESSSING APPLIED -Primary Dressing Covered/Secured with Dry Gauze & Dry Gauze & Roll Gauze, Roll Gauze, Secured with Secured with Tape Tape -Other Covering HOLLIE -Aquacel AG 4x4 1 Treatment Response Procedure Tolerated Well Vital Signs Blood Pressure (90/60-120/80) 131/88 H Blood Pressure Mean (mm Hg) 102 Source Monitor Position Sitting Blood Pressure Location Right Arm Pain Scale: 0-10 Numeric Is Patient Pain Free? Yes Yes WC - Visit Discharge Discharge Condition Stable Stable Ambulatory Status Wheelchair Wheelchair Transportation Private Auto Private Auto Accompanied by family Medication Reconcilliation completed & No provided to patient/care provider Clinical Summary of Care Provided Yes Wound debrided: leg Laterality: Left Type of Debridement: Selective debridement Anesthesia Used: 5% Lidocaine Gel Depth: in the subcutaneous layer Percentage of wound debrided: 100 Instrument Used: #15 blade Tissue Removed: fibrous, devitalized tissue, biofilm, slough Severity: Fat Layer Exposed Amount of bleeding with debridement: Mild Bleeding Controlled with: Pressure Patient tolerated procedure well - pain noted Assessment/Plan Active Problems Ulcer of left lower extremity with fat layer exposed (Chronic) Delayed wound healing (Chronic) Other specified peripheral vascular diseases (Chronic) bilateral lower extremity Leg edema, left (Chronic) Former tobacco use (Chronic) Assessment: Left leg ulcer with fat layer /partial fascial layer no longer exposed, stable. Recent cellulitis left lower extremity resolved. Peripheral vascular disease. C. difficile, being treated with oral vancomycin under the management of infectious disease. 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 Leg edema. Venous insufficiency. Delayed healing. Malnutrition suspected Plan: I reviewed and discussed her case today. Debridement was performed as noted in the clinical panel today in a selective manner. Her leg was washed with soap and water. I recommend changing the dressing with santyl to the fibrous ulcer and hydrogel to the peripheral ulcer site covered with adaptic. She was advised to allow warm water to gently run over the dressings to aid in a less painful dressing change. This has been very uncomfortable for her. I do not appreciate any purulence or systemic illness on exam today. Venous reflux evaluation test was previously ordered. She was advised to avoid idle sitting and standing and to elevate the limb to control edema. If she has continued pain particularly with leg elevation, I recommend she intermittently dangles the leg as well. Noninvasive arterial study was previously performed and she has already completed the additional recommended tests by vascular surgery. I reviewed Dr. Morel's plan and documentation. She additionally had an updated test performed and intervention was previously not recommended. Due to her overall lack of progress I recommend she returns early to see if intervention is possible. She was previously considering a second opinion with her 's vascular specialist and will consider the referral in the future. She more recently elects to proceed with a palliative care program and defers other intervention at this time. She is very consumed with her 's deteriorating health status and does not want to seek her own intervention at this time. She does also have significant bilateral lower extremity monophasic waveforms with ABIs of around 0.5 bilaterally. She is apprehensive about this process and I strongly encouraged her to follow-up with a vascular specialist due to her continued lack of healing. Her prior labs were reviewed. Her prealbumin was 19.8 and proper nutrition and supplementation was reviewed. To proceed with a proper control diet and nutrition supplementation to optimize healing. I answered all of her questions and explained the etiology of ulcer causes and the comprehensive wound healing plan. She was advised to return to clinic in 3 weeks or sooner if concerns. . The problems addressed require a low medical decision making level which includes two or more problems, a stable chronic illness. The medical decision making level is low. The medical decision making level is moderate. There is noted moderate risk of morbidity after considering this treatment plan and diagnostic data. Considerations were given to decisions regarding surgical options, morbidity and mortality risk related to her chronic illness, or social determinants of health. Note: [employer] speech recognition laborer dairy farm software was used to create portions of this document. Sound-alike and misspelled words, as well as other laborer dairy farm errors may be contained in the documentation. . ROBERT 2020: Reviewed today: Medications and allergies were reviewed and reconciled. Reviewed 11-13-2020: BMI 29.3. Blood pressure 139/62. The systolic over 120 elevated and she follow-up with her primary care physician. Diet and activity recommendations were reviewed to optimize ulcer healing and overall health. She received a flu vaccination. Is noted she was a former smoker and is not currently a tobacco user. She does not have a living will on file.
--- NOTE | 2020-11-27 22:01 | PCM.PN.ID ---
Subjective: Diarrhea doing well, down to once daily vanc as part of long taper. Leg doing ok, but adaptic is sticking. C/o several weeks of new rash on her chest, mild itching, not helped much by benadryl or cortisone cream. No new soaps/detergents/necklaces/etc. - Physical Exam Vitals/I&O's: Vital Signs Temp Pulse Resp BP 98.9 F 98 20 H 131/88 H 11/27/20 14:33 11/27/20 14:33 11/27/20 14:33 11/27/20 15:27 Oxygen Flow Rate (L/min) 2 Weight: 63.503 kg Body Mass Index (BMI) 26.8 General: Alert, Cooperative, No apparent distress Lungs: Clear to auscultation, Normal air movement Cardiovascular: Regular rate, Regular Rhythm Abdomen: Soft, Non Tender, Non-Distended Skin: Ulcer/ Wound - L [place], Rash Present - on chest, macular, blanching, scattered Medical Necessity - Tobacco Use Smoking Status: Former smoker Route of nutrition/ use of supplements: [] Nutritional Intake: [] IV Site: [] [place] Catheter: [] - Assessment/Plan Antibiotics: [] Assessment/Plan: [] Cdiff - doing well on long taper, [facility]. leg infections - does not appear currently infection chest rash - will try short course of prednisone, she is to contact PCP office. Return to clinic as needed, d/w Dr. Cooper
== END 2020-12-08 23:59 ==
LOC: WC 14:30
PROVIDERS: Referring Provider Podiatrist; Visit Provider Podiatrist
DX: L97.922 Non-pressure chronic ulcer of unspecified part of left lower leg with fat layer exposed (principal); I87.2 Venous insufficiency (chronic) (peripheral); I73.9 Peripheral vascular disease, unspecified; A04.71 Enterocolitis due to Clostridium difficile, recurrent; M21.372 Foot drop, left foot; B91 Sequelae of poliomyelitis; R60.0 Localized edema; R21 Rash and other nonspecific skin eruption; Z79.82 Long term (current) use of aspirin; Z79.52 Long term (current) use of systemic steroids; Z79.899 Other long term (current) drug therapy; Z87.891 Personal history of nicotine dependence
CPT/HCPCS: 11042; 11045; 97597; 97598

== ENCOUNTER 2020-12-18 14:30 | Outpatient (RCR) | payer MEDICARE, OTHER, SELFPAY ==
[2020-12-09 00:19] VITALS: BP 131/88; PULSE 98; RESP 20; TEMP 37.2
[2020-12-18 14:40] VITALS: BP 138/59; PULSE 108; RESP 18; TEMP 35.7; BMI 26.8
[2020-12-18 15:37] VITALS: BP 138/80
--- NOTE | 2020-12-18 21:58 | PCM.WC.PN ---
(1) Ulcer of left lower extremity with fat layer exposed Status: Chronic Code(s): L97.922 - Non-pressure chronic ulcer of unspecified part of left lower leg with fat layer exposed (2) Delayed wound healing Status: Chronic Code(s): T14.8XXD - Other injury of unspecified body region, subsequent encounter (3) Other specified peripheral vascular diseases Status: Chronic Code(s): I73.89 - Other specified peripheral vascular diseases Comment: bilateral lower extremity (4) Venous insufficiency Status: Chronic Code(s): I87.2 - Venous insufficiency (chronic) (peripheral) Comment: left Greater saphenous vein (5) Chronic pain Status: Chronic Code(s): G89.29 - Other chronic pain (6) Post-polio syndrome Status: Chronic Code(s): G14 - Postpolio syndrome Type of Wound Date of Service: 12/18/20 Chief Complaint: Left leg ulcer History of Wound: This 70-year-old female with significant past medical history of polio with several medical sequela sustained a left leg ulcer that dates back to 2015. She was previously seen by vascular surgery. Intervention was not recommended and this is something that could be considered in the future after her infection status remains stable which it is at this time. She struggles with proceeding forward with further vascular evaluation at this time and is in tears today because she is in chronic pain and is frustrated with her lack of healing. She previously saw Dr. Morel and was also previously considering a vascular second opinion (with her 's vascular specialist, Dr. Archibald). She has recently been changing the dressing with santyl and adaptic. She continues on oral vancomycin for treatment of chronic and recurrent C. difficile. She denies fever, chills, nausea, vomiting. Her leg is painful. She denies odor or redness. She is with her daughter today. Progress of Wound: Ulcer stable with delayed healing - Physical Exam Vital Signs Temp Pulse Resp BP 96.3 F L 108 H 18 138/80 H 12/18/20 14:40 12/18/20 14:40 12/18/20 14:40 12/18/20 15:37 General: Alert, Oriented x3, Cooperative, No apparent distress Extremities: No cyanosis, Capillary Refill Less than 3 Seconds, No Calf Tenderness, Diminished Peripheral Pulses, Edema Skin: Ulcer/ Wound - No purulence, erythema, string, odor, infection. Adjacent skin is hairless and atrophic. The ulcer bed is fibrous with minimal granulation tissue. No bogginess or fluctuance on palpation. Wound Measurements and Assessment - Nurse 1 - General Ulcer Measurement Start: 12/18/20 14:40 Freq: Status: Active Protocol: Activity Type Activity Date Activity User E-Sign Co-Sign Detail Recorded Client Recorded Date Recorded By Document 12/18/20 14:40 [facility] [id number] 12/18/20 14:52 [facility] 12/18/20 14:40 Wound Center Nurse 1 [Ulcer Assessment] #1 LLE -Combined with other wound No -Current Size (cm) - Length 15 -Current Size (cm) - Width 26 -Current Size (cm) - Depth 0.2 -Total Square Cm 390 -Photo Taken No -Epithelialization None Present -Tunneling No -Undermining/Tunneling No -Circular Undermining No -Exudate Amt Large -Exudate Type Serosanguineous -Wound Margin Distinct, Outline Attached -Granulation Amt Small (1-33%) -Granulation Quality Red -Slough/Fibrin Yes -Necrosis Amt Medium (34-66%) -Necrotic Tissue Type Adherent Slough -Texture (Susana-wound Skin Appearance) Assessed, Excoriation, Scarring -Moisture (Susana-wound Skin Appearance Assessed, ) Maceration, Weeping -Color (Susana-wound Skin Appearance) Assessed, Erythema,Palor -Temperature (Susana-wound Skin No Abnormality Appearance) (Pt Warm) -Tenderness on Palpation (Susana-wound Yes Skin Appearance) -Ulcer Cleansing soapy water -Foul Odor after Cleansing No -Anesthetic Used 4% Lidocaine Solution - Nurse 2 - General Ulcer CM Notes Start: 12/18/20 14:40 Freq: Status: Active Protocol: Activity Type Activity Date Activity User E-Sign Co-Sign Detail Recorded Client Recorded Date Recorded By Document 12/18/20 15:19 FELISHA [id number] 12/18/20 15:20 FELISHA 12/18/20 15:19 Wound Center Nurse 2 [Procedure/Treatment] -Correct Patient No -Correct Side, Site, Position No -Correct Procedure No -Procedure Performed No -Circular Undermining No -Wound/Ulcer Outcome Not Healed -Ulcer Cleansing Rinsed/ Irrigated with Saline -Foul Odor after Cleansing No -Bioengineered Tissue No -Bleeding Controlled with Pressure -Offloading No -Treatment Response Procedure Tolerated Well -Debridement - Subq, 1st 20sq cm No [See Physician Procedure note for Specifics] Pain Scale: 0-10 Numeric [Pain] -Is Patient Pain Free? Yes - Nurse 3 - General Ulcer D/C NN Start: 12/18/20 14:40 Freq: Status: Active Protocol: Activity Type Activity Date Activity User E-Sign Co-Sign Detail Recorded Client Recorded Date Recorded By Document 12/18/20 15:37 RB [id number] 12/18/20 15:38 RB 12/18/20 15:37 Wound Care Nurse 3 [Wound Dressing] #1 LLE -Primary Dressing Applied NonAdherent Contact Layer -Other Dressing hydrogel, adaptic , dry max dressing , kerlix -Primary Dressing Covered/Secured Secured with with Tape [Compression Applied] Left -Other bereket [Post Procedure Tolerated] -Treatment Response Procedure Tolerated Well Vital Signs [Blood Pressure] -Blood Pressure (90/60-120/80) 138/80 H -Blood Pressure Mean (mm Hg) 99 -Source Monitor -Position Semi-Fowlers -Blood Pressure Location Left Arm - Visit Discharge [Visit Discharge Information] -Discharge Condition Stable -Ambulatory Status Ambulatory -Transportation Private Auto -Medication Reconcilliation completed No & provided to patient/care provider -Clinical Summary of Care Provided Yes Musculoskeletal: No Tenderness to Palpation of Joints or Extremities, Muscle Wasting Neurological: Sensory exam intact to light touch and pain Psych/Mental Status: Agitated, Anxious, Impulsive Debridement Note Post-Debridement Measurements/Treatment - Nurse 2 - General Ulcer CM Notes Start: 12/18/20 14:40 Freq: Status: Active Protocol: Activity Type Activity Date Activity User E-Sign Co-Sign Detail Recorded Client Recorded Date Recorded By Document 12/18/20 15:19 [id number] 12/18/20 15:20 FELISHA 12/18/20 15:19 Wound Center Nurse 2 #1 LLE -Correct Patient No -Correct Side, Site, Position No -Correct Procedure No -Procedure Performed No -Circular Undermining No -Wound/Ulcer Outcome Not Healed -Ulcer Cleansing Rinsed/ Irrigated with Saline -Foul Odor after Cleansing No -Bioengineered Tissue No -Bleeding Controlled with Pressure -Offloading No -Treatment Response Procedure Tolerated Well -Debridement - Subq, 1st 20sq cm No Pain Scale: 0-10 Numeric Is Patient Pain Free? Yes - Nurse 3 - General Ulcer D/C NN Start: 12/18/20 14:40 Freq: Status: Active Protocol: Activity Type Activity Date Activity User E-Sign Co-Sign Detail Recorded Client Recorded Date Recorded By Document 12/18/20 15:37 RB [id number] 12/18/20 15:38 RB 12/18/20 15:37 Wound Care Nurse 3 #1 LLE -Primary Dressing Applied NonAdherent Contact Layer -Other Dressing hydrogel, adaptic , dry max dressing , kerlix -Primary Dressing Covered/Secured with Secured with Tape Left -Other bereket Treatment Response Procedure Tolerated Well Vital Signs Blood Pressure (90/60-120/80) 138/80 H Blood Pressure Mean (mm Hg) 99 Source Monitor Position Semi-Fowlers Blood Pressure Location Left Arm WC - Visit Discharge Discharge Condition Stable Ambulatory Status Ambulatory Transportation Private Auto Medication Reconcilliation completed & No provided to patient/care provider Clinical Summary of Care Provided Yes No debridement was completed today - not tolerated per patient Assessment/Plan Active Problems (Last Reviewed 04/11/20 @ 14:[address] Yefri Rubio MD) Ulcer of left lower extremity with fat layer exposed (Chronic) Delayed wound healing (Chronic) Venous insufficiency (Chronic) left Greater saphenous vein Other specified peripheral vascular diseases (Chronic) bilateral lower extremity Assessment: Left leg ulcer with fat layer /partial fascial layer no longer exposed, stable. Recent cellulitis left lower extremity resolved. Peripheral vascular disease. C. difficile, being treated with oral vancomycin under the management of infectious disease. 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 Leg edema. Venous insufficiency. Delayed healing. Malnutrition suspected Plan: I reviewed and discussed her case today. Debridement was not performed. I recommend changing the dressing with santyl to the fibrous ulcer and hydrogel to the peripheral ulcer site covered with adaptic. She was advised to allow warm water to gently run over the dressings to aid in a less painful dressing change. This has been very uncomfortable for her. She is in tears today and was advised to go for pain management consultation. She was referred to Dr. Peralta. A prescription for tramadol was also sent to her pharmacy of choice and she was advised on safe and proper use. She also relates she has narcotic medication at home and she was advised it is okay to take this instead of the tramadol as for that is what it was prescribed for by different provider however so recommend a pain management referral for long-term options. She is apprehensive to use any medication however is very tearful today. Safe use of medication was reviewed. I do not appreciate any purulence or systemic illness on exam today. Venous reflux evaluation test was previously ordered. She was advised to avoid idle sitting and standing and to elevate the limb to control edema. If she has continued pain particularly with leg elevation, I recommend she intermittently dangles the leg as well. Noninvasive arterial study was previously performed and she has already completed the additional recommended tests by vascular surgery. I reviewed Dr. Morel's plan and documentation. She additionally had an updated test performed and intervention was previously not recommended. Due to her overall lack of progress I recommend she returns early to see if intervention is possible. She was previously considering a second opinion with her 's vascular specialist and will consider the referral in the future. She continues to refuse to follow-up in any other recommendation and is weeping. She more recently elects to proceed with a palliative care program and defers other intervention at this time. She is very consumed with her 's deteriorating health status and does not want to seek her own intervention at this time. She does also have significant bilateral lower extremity monophasic waveforms with ABIs of around 0.5 bilaterally. She is apprehensive about this process and I strongly encouraged her to follow-up with a vascular specialist due to her continued lack of healing and continued chronic pain. Her prior labs were reviewed. Her prealbumin was 19.8 and proper nutrition and supplementation was reviewed. To proceed with a proper control diet and nutrition supplementation to optimize healing. I answered all of her questions and explained the etiology of ulcer causes and the comprehensive wound healing plan. She was advised to return to clinic in 3 weeks or sooner if concerns. It is noted she is with her daughter today who also helps with information gathering and plan. . The medical decision making level is moderate based on data including at least three of the following: review of prior external notes, review of a test, ordering a test, assessment requiring an independent historian. The medical decision making level iss moderate based on data including the discussion of management or test interpretation with another qualified health home care manager or appropriate source. The problems addressed require a moderate decision making level which includes one or more chronic illnesses (w/ exacerbation, progression, or side effects), two or more stable chronic illnesses, one undiagnosed new problem w/ uncertain prognosis, one acute illness with systemic symptoms, or one acute complicated injury. Note: [employer] speech recognition landfill gas collection system operator software was used to create portions of this document. Sound-alike and misspelled words, as well as other landfill gas collection system operator errors may be contained in the documentation. . ROBERT 2020: Reviewed today: Medications and allergies were reviewed and reconciled. Reviewed 11-13-2020: BMI 29.3. Blood pressure 139/62. The systolic over 120 elevated and she follow-up with her primary care physician. Diet and activity recommendations were reviewed to optimize ulcer healing and overall health. She received a flu vaccination. Is noted she was a former smoker and is not currently a tobacco user. She does not have a living will on file.
--- NOTE | 2020-12-25 15:25 | WC ---
Received a call today from Dr. Peralta office concerning a pain management referral for patient. Stated if seen in pain management they would give meds that would potentially slow wound healing, therefore they will not see patient at this time while patient is in constant care at wound center. Spoke to Dr. Cooper, instructed to send pain management referral to Dr. Pagan for evaluation. Will notify patient.
== END 2021-01-05 23:59 ==
LOC: WC 14:30
PROVIDERS: Referring Provider Podiatrist; Visit Provider Podiatrist
DX: I87.2 Venous insufficiency (chronic) (peripheral) (principal); L97.822 Non-pressure chronic ulcer of other part of left lower leg with fat layer exposed; R60.0 Localized edema; G89.29 Other chronic pain; I73.89 Other specified peripheral vascular diseases; A04.71 Enterocolitis due to Clostridium difficile, recurrent; G14 Postpolio syndrome; Z79.82 Long term (current) use of aspirin; Z79.899 Other long term (current) drug therapy; Z87.891 Personal history of nicotine dependence
CPT/HCPCS: 99213; G0463

== ENCOUNTER → 2021-01-23 12:44 | Outpatient (CLI) | payer MEDICARE, OTHER, SELFPAY ==
--- NOTE | 2021-01-23 12:47 | CT_ITS ---
STUDY: CTA OF THE ABDOMINAL AORTA AND BILATERAL LOWER EXTREMITIES REASON FOR EXAM: Female, 70 years old. ATHEROSCLEROSIS W/CLAUDICATION,STRICTURE OF ARTERY,SWELLING L LEG -- L LEG PAIN,VARICOSE VEINS OF LLE W/OTHER COMPLICATIONS, TOBACCO USE,ANXIETY RADIATION DOSAGE (If Supplied By Facility): CTDIvol = ( 5.54 ) mGy, DLP = ( 892.95 ) mGycm TECHNIQUE: Axial CT angiography multi-detector data acquisition was obtained from the to the following intravenous administration of IV 100mL Isovue-370. Axial images and MIP images were reconstructed from the axial data set. Post-processing of the angiographic images was performed, with multiplanar reformation and 3D reconstruction. Individualized dose optimization techniques were used for this CT. TECHNICAL QUALITY: Good COMPARISON: None. Descriptors of Narrowing: None (0%) Mild (< 50%) Moderate (50-70%) Severe (70-90%) Subtotal/Total Occlusion (90-100%) Non-Evaluable (technically non-diagnostic FINDINGS: Diffuse fatty infiltration of the liver. Calcified splenic granulomas. Abdominal aorta: Atherosclerotic plaque distal abdominal aorta. There is narrowing and occlusion of the distal abdominal aorta proximal to its bifurcation. Celiac and superior mesenteric arteries: Stenotic atherosclerotic plaque formation at the origin of the superior mesenteric artery and celiac artery. Inferior mesenteric artery: No demonstrated narrowing. Right renal artery(arteries): No demonstrated narrowing. Left renal artery(arteries): No demonstrated narrowing. Right common iliac artery: There is reconstitution of a small caliber right common iliac artery at its origin via collaterals. Right external iliac artery: No demonstrated narrowing. Right internal iliac artery: No demonstrated narrowing. Left common iliac artery: No demonstrated narrowing. Left external iliac artery: No demonstrated narrowing. Left internal iliac artery: No demonstrated narrowing. RIGHT LOWER EXTREMITY Right common femoral artery: No demonstrated narrowing. Right profundus femoris: No demonstrated narrowing. Right superficial femoral: No demonstrated narrowing. Right popliteal artery: No demonstrated narrowing. Right tibioperoneal trunk: No demonstrated narrowing. Right anterior tibial artery: No demonstrated narrowing. Right posterior tibial artery: No demonstrated narrowing. Right peroneal artery: No demonstrated narrowing. LEFT LOWER EXTREMITY Left common femoral artery: No demonstrated narrowing. Left profundus femoris: No demonstrated narrowing. Left superficial femoral: No demonstrated narrowing. Left popliteal artery: No demonstrated narrowing. Left tibioperoneal trunk: No demonstrated narrowing. Left anterior tibial artery: No demonstrated narrowing. Left posterior tibial artery: No demonstrated narrowing. Left peroneal artery: No demonstrated narrowing. CT/CTA Abd w/Runoff W/WO Contrast IMPRESSION: Occlusion of the distal abdominal aorta just proximal to the bifurcation with reconstitution of the common iliac arteries bilaterally. Electronically Signed: Juice Kee MD at 15:33 EDT , Service support ,
[2021-01-23 13:27] LABS: BUN 10 mg/dL (7-18); Creatinine, Serum 0.62 mg/dL (0.55-1.02); EST Glomerular Filtration Rate 100 mL/min (>60); Est Glom Filt Rate - Afr Amer 121 mL/min (>60)
== END ==
PROVIDERS: PCP Family Medicine; Referring Provider Surgery Vascular Surgery; Visit Provider Surgery Vascular Surgery
DX: I70.213 Atherosclerosis of native arteries of extremities with intermittent claudication, bilateral legs (principal); I77.1 Stricture of artery; M79.89 Other specified soft tissue disorders; M79.605 Pain in left leg; I83.892 Varicose veins of left lower extremity with other complications; Z87.891 Personal history of nicotine dependence; F41.9 Anxiety disorder, unspecified; E78.70 Disorder of bile acid and cholesterol metabolism, unspecified; E07.9 Disorder of thyroid, unspecified; D89.89 Other specified disorders involving the immune mechanism, not elsewhere classified; I70.242 Atherosclerosis of native arteries of left leg with ulceration of calf
CPT/HCPCS: 36415; 75635; 82565; 84520; Q9967

== ENCOUNTER → 2021-01-24 10:16 | Outpatient (CLI) | payer MEDICARE, OTHER, SELFPAY ==
--- NOTE | 2021-01-24 10:21 | VDLE_ITS ---
Reason For Study: Varicose veins Procedure LEFT This is a venous duplex using B-mode, color CFV is compressible, spontaneous, phasic, flow and spectral Doppler. competent, and demonstrates normal Exam performed in department. augmentation. A preliminary report was called and/or faxed FV is compressible, spontaneous, phasic, to Adriel. competent and demonstrates normal augmentation. POP V is compressible, spontaneous, phasic, competent and demonstrates normal augmentation. T/P Trunk is compressible. PTV is compressible. LT PerV is compressible. Calf veins visualized at prox calf only. SFJ is competent and measures 0.99 x 0.88 cm. GSV proximal thigh measures 0.77 x 0.74 cm. GSV at knee measures 0.49 x 0.48 cm. GSV INCOMPETENT throughout for greater than 0.5 seconds. ASV mid thigh is INCOMPETENT for greater than 0.5 seconds and measures 0.55 x 0.56 cm. ASV proximal calf is INCOMPETENT for greater than 0.5 seconds and measures 0.36 x 0.37 cm. SSV at junction is INCOMPETENT for greater than 0.5 seconds and measures 0.45 x 0.46 cm. Interpretation Summary Left no DVT or SVT. GSV 7.7mm and reflux throughout and left ASV 5.6mm and reflux. Ordering Physician: Bryan Morel Referring Physician: Boo Cotton Performed By: Stella Monique RVT
== END ==
PROVIDERS: PCP Family Medicine; Referring Provider Surgery Vascular Surgery; Visit Provider Surgery Vascular Surgery
DX: I70.213 Atherosclerosis of native arteries of extremities with intermittent claudication, bilateral legs (principal); I77.1 Stricture of artery; M79.89 Other specified soft tissue disorders; M79.605 Pain in left leg; I83.892 Varicose veins of left lower extremity with other complications; Z87.891 Personal history of nicotine dependence; F41.9 Anxiety disorder, unspecified; E78.00 Pure hypercholesterolemia, unspecified; D89.89 Other specified disorders involving the immune mechanism, not elsewhere classified; I70.242 Atherosclerosis of native arteries of left leg with ulceration of calf
CPT/HCPCS: 93971

== ENCOUNTER 2021-02-03 18:05 | Inpatient (IN) | payer MEDICARE, OTHER, SELFPAY ==
[2021-02-03 18:07] VITALS: BP 147/90; PULSE 121; RESP 15; TEMP 35.6; O2SAT 96; BMI 29.2
--- NOTE | 2021-02-03 19:22 | ED.DCSUM_ITS ---
- ER Visit Summary Date of Service: 02/03/21 Chief Complaint: Left leg nonhealing wound with now foul odor History of Present Illness: The patient is a 70 F. Chronic wound to her left lower leg for which she is being seen Dr. Taisha hopkins podiatry and Dr. Morel vascular surgery. She is also been evaluated at the wound care center. She had prior surgery and debride this within the last year or so. She has developed osteomyelitis in that lower leg from a post polio syndrome. She said this is nonhealing or talk about doing vascular surgery and potentially a week. But now she has noticed a foul odor coming from the left lower leg. States she has chills but no fever. Currently is not on antibiotics. Physical Examination: Older female no acute distress vital signs stable afebrile. H EENT exam unremarkable. Neck nontender. Lungs clear to auscultation bilaterally. Heart regular rhythm rate about 110 no murmur. Abdomen soft nontender normal bowel sounds no peritoneal signs. Patient moving all 4 extremities. From just below her left knee into her foot she has a chr onic wound and breakdown of the skin of the left lower leg with vascular changes and cellulitis. There is also a foul odor and on the medial aspect of her left lower leg there appears to be pus. There does not appear to be any spread above the left knee. It does not appear to be a left knee involvement. She is able to wiggle her left toes. She does have touch sensation in the left foot. Test Results: CBC shows an elevated white count of 17.7. Hemoglobin is 12. No bands. Chemistries potassium of 3.3. Normal gap and normal creatinine. Left tibia-fibula x-ray 2 views showed chronic change of the fibula consistent with osteomyelitis. No gas. Read both by the radiologist and me. Emergency Department Course and Treatment: 80-year-old female with chronic left leg wound. Now has an odor of an anaerobic infection. Screening labs and x-ray will be obtained. She will be admitted and started on IV clindamycin. She does have an allergy to penicillin. She is also being treated with IV morphine for pain. Treatment Plan: Repeat exam no change. I spoke to the hospitalist who will admit the patient. Disposition: Admission Impression: Chronic left lower extremity leg wound with acute infection (cellulitis) Post polio syndrome of left lower extremity This note was generated with [employer] dictation software. It may contain incorrect words, spelling, and punctuation that were not noted in review of the chart prior to signing ED Disposition - Plan for ED Patient:
[2021-02-03 19:44] LABS: Absolute Lymphocyte Count 2.07 X10^3/uL (0.83-4.51); Absolute Neutrophil Count 14.1 X10^3/uL (2.0-7.7); Basophil% 0.6 % (0-1); Eosinophil# 0.36 X10^3/uL; Hematocrit 39.8 % (37-47); Hemoglobin 12.7 g/dL (12.0-15.0); Lymphocyte # 2.07 X10^3/ul (4.0); Lymphocyte % 11.7 % (19-41); Mean Corp Hgb Conc 31.9 g/dL (32-36); Mean Corpuscular Hgb 28.2 pg (27.0-32.0); Mean Corpuscular Volume 88.4 fL (81-99); Mean Platelet Vol. 8.5 fl (6.2-12.0); Monocyte# 1.02 X10^3/uL; Monocyte% 5.8 % (0-10); NRBC Flagged by Analyzer 0 % (0-5); Neutrophil # 14.06 X10^3/uL (2.7-7.7); Neutrophil % 79.3 % (47-70); Platelet Count 518 K/mm3 (150-450); RBC Distribution Width CV 14.2 % (11.6-14.6); RBC Distribution Width SD 45.8 fl (35.1-43.9); White Blood Count 17.7 K/mm3 (4.4-11.0)
--- NOTE | 2021-02-03 19:52 | RAD_ITS ---
STUDY: X-RAY - LEFT TIBIA AND FIBULA REASON FOR EXAM: Female, 70 years old. Soft tissue infection. Left leg wound draining foul smelling fluid. TECHNIQUE: AP and lateral view(s) of the tibia and fibula were obtained. COMPARISON: None. FINDINGS: Normal visualized tibia. There is abnormality of the lower fibular shaft is evidence of periosteal reaction as well as lucency within the bone. There are degenerative changes of the knee and ankle. No overlying soft tissue irregularity consistent with the leg wound described in the patient''s history. RAD/Tibia & Fibula 2 Views IMPRESSION: Soft tissue abnormality of lower leg. There is periosteal reaction about the adjacent fibular shaft. Question osteomyelitis. Electronically Signed: Anthony Barrett DO at 20:32 EDT Tel [phone], Service support ,
[2021-02-03 19:58] LABS: Anion Gap 5 (5-15); BUN 9 mg/dL (7-18); Calcium,Total 8.6 mg/dL (8.5-10.1); Chloride 101 mmol/L (98-107); Creatinine, Serum 0.75 mg/dL (0.55-1.02); EST Glomerular Filtration Rate 81 mL/min (>60); Est Glom Filt Rate - Afr Amer 98 mL/min (>60); Estimated Creatinine Clearance 50.98 ml/min; Glucose 135 mg/dL (74-106); Potassium 3.3 mmol/L (3.5-5.1); Sodium Level 135 mmol/L (136-145)
[2021-02-03] MEDS: Ondansetron 4 MG/2 ML Vial IV (20:03)
[2021-02-03] MEDS: morphine 8 MG/ML Syringe IV (20:04)
[2021-02-03 20:09] VITALS: BP 105/44
--- NOTE | 2021-02-03 21:57 | HP.PCM_ITS ---
Problem List (1) Osteomyelitis Status: Acute (2) Sepsis Status: Acute (3) Localized edema Status: Chronic (4) Acute diarrhea Status: Inactive (5) Hypokalemia Status: Acute (6) Cellulitis Status: Acute (7) Osteomyelitis of left fibula Status: Acute Qualifiers: (8) Cellulitis of left lower extremity Status: Inactive (9) Chronic pain Status: Chronic (10) Post-polio syndrome Status: Chronic (11) Hx of knee surgery Status: Chronic (12) History of hip surgery Status: Chronic (13) Hx of tubal ligation Status: Acute (14) Pseudomonas aeruginosa colonization Status: Chronic (15) Ulcer of left lower extremity with fat layer exposed Status: Chronic (16) Delayed wound healing Status: Chronic (17) Venous insufficiency Status: Chronic Comment: left Greater saphenous vein (18) Other specified peripheral vascular diseases Status: Chronic Comment: bilateral lower extremity (19) Left leg pain Status: Chronic (20) Cellulitis of left leg Status: Acute (21) Leg edema, left Status: Chronic (22) Colonization status Status: Acute (23) Diarrhea Status: Chronic Qualifiers: Diarrhea type: unspecified type Qualified Code(s): R19.7 - Diarrhea, unspecified (24) Tachycardia Status: Inactive (25) MVP (mitral valve prolapse) Status: Chronic (26) C. difficile colitis Status: Resolved (27) Thyroid disorder Status: Chronic (28) Ulcer of left lower extremity, limited to breakdown of skin Status: Acute (29) Colitis Status: Inactive (30) HTN (hypertension) Status: Chronic Qualifiers: Hypertension type: essential hypertension Qualified Code(s): I10 - Essential (primary) hypertension (31) HLD (hyperlipidemia) Status: Chronic Qualifiers: Hyperlipidemia type: unspecified Qualified Code(s): E78.5 - Hyperlipidemia, unspecified (32) Former tobacco use Status: Chronic (33) Sinus tachycardia Status: Chronic History of Present Illness Date of Admission: 02/03/21 Chief Complaint: ODOR OF RIGHT LEG WOUND The patient is a 70 year old F with a significant history of post polio syndrome who presents emergency department with increased odor of wound of left leg. Associated with her symptoms is increased pain on the left leg and draining wound. Patient follows up with Dr. Cooper wound care. Reportedly patient called Dr. Cooper's office and he was advised to come to the emergency department. Patient follows up with Dr. Morel. Reportedly she is supposed to see Dr. Morel in the next few days and there is plan for revascularization of her left leg. Reportedly she had MRI of her left leg in the last 1 to 2 weeks. Past Medical History Past Medical History (Chronic Problems): Chronic Problems (Last Reviewed 02/03/21 @ 22:[address] Rupesh Jennings MD) Localized edema (Chronic) Chronic pain (Chronic) Post-polio syndrome (Chronic) Hx of knee surgery (Chronic) History of hip surgery (Chronic) Pseudomonas aeruginosa colonization (Chronic) Ulcer of left lower extremity with fat layer exposed (Chronic) Delayed wound healing (Chronic) Venous insufficiency (Chronic) left Greater saphenous vein Other specified peripheral vascular diseases (Chronic) bilateral lower extremity Left leg pain (Chronic) Leg edema, left (Chronic) Diarrhea (Chronic) MVP (mitral valve prolapse) (Chronic) Thyroid disorder (Chronic) HTN (hypertension) (Chronic) HLD (hyperlipidemia) (Chronic) Former tobacco use (Chronic) Sinus tachycardia (Chronic) Medical History: Medical History (Last Reviewed 02/04/21 @ 01:[address] Rupesh Jennings MD) Pseudomonas aeruginosa colonization (Chronic) Z22.39 Ulcer of left lower extremity with fat layer exposed (Chronic) L97.922 Delayed wound healing (Chronic) T14.8XXD Venous insufficiency (Chronic) I87.2 left Greater saphenous vein Other specified peripheral vascular diseases (Chronic) I73.89 bilateral lower extremity Left leg pain (Chronic) M79.605 Cellulitis of left leg (Acute) L03.116 Leg edema, left (Chronic) R60.0 Colonization status (Acute) Z22.9 Diarrhea (Chronic) R19.7 Tachycardia (Inactive) R00.0 MVP (mitral valve prolapse) (Chronic) I34.1 C. difficile colitis (Resolved) A04.72 Thyroid disorder (Chronic) E07.9 Ulcer of left lower extremity, limited to breakdown of skin (Acute) L97.921 Colitis (Inactive) K52.9 HTN (hypertension) (Chronic) I10 HLD (hyperlipidemia) (Chronic) E78.5 Former tobacco use (Chronic) Z87.891 Sinus tachycardia (Chronic) R00.0 Allergies naproxen [From Naprosyn] Allergy (Verified 02/03/21 18:10) Rash Penicillins [PCN] Allergy (Verified 02/03/21 18:10) Rash amoxicillin Adverse Reaction (Verified 02/03/21 18:10) Rash cephalexin [From Keflex] Adverse Reaction (Verified 02/03/21 18:10) Rash clotrimazole [From Lotrimin] Adverse Reaction (Verified 02/03/21 18:10) Rash diphenhydramine [From Benadryl] Adverse Reaction (Verified 02/03/21 18:10) Rash griseofulvin Adverse Reaction (Verified 02/03/21 18:10) Rash ibuprofen [From Motrin] Adverse Reaction (Verified 02/03/21 18:10) Rash miconazole [From Monistat 1 Combo Pack] Adverse Reaction (Verified 02/03/21 18:10) Rash propranolol [From Inderal LA] Adverse Reaction (Verified 02/03/21 18:10) Rash rofecoxib [From Vioxx] Adverse Reaction (Verified 02/03/21 18:10) Rash Sulfa (Sulfonamide Antibiotics) Adverse Reaction (Verified 02/03/21 18:10) Rash Home Medications: Ambulatory Orders Medication Instructions Recorded Aspirin E.C. [Ecotrin] 81 mg PO DAILY 11/28/19 Doxepin HCl [Sinequan] 10 mg PO QHS 11/28/19 Levothyroxine [Synthroid] 137 mcg PO QHS 11/28/19 Pentoxifylline [Trental] 400 mg PO QHS 11/28/19 Simvastatin [Zocor] 40 mg PO QHS 11/28/19 Lactobacillus Acidophilus 2 tab PO BID 03/26/20 [Acidophilus] Metoprolol Tartrate 50 mg PO DAILY 03/26/20 Metoprolol Tartrate [Lopressor 100 mg PO QHS 03/26/20 (beta stefany)] cholecalciferol (vitamin D3) 25 25 mcg PO DAILY 04/11/20 mcg (1,000 unit) capsule Acetaminophen [Tylenol Tablet] 650 mg PO Q6H PRN PRN tab 05/31/20 Gabapentin [Neurontin] 100 mg PO DAILY 02/03/21 traMADol [Ultram] 50 mg PO BID 02/03/21 Surgical History: Surgical History (Last Reviewed 02/04/21 @ 01:[address] Rupesh Jennings MD) Hx of knee surgery (Chronic) Z98.890 History of hip surgery (Chronic) Z98.890 Hx of tubal ligation (Acute) Z98.51 Surgical History: - - Bilateral lower extremity surgery for polio in her youth, bilateral tubal ligation. 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 Yefri Rubio MD) Daughter Asthma Sister COPD (chronic obstructive pulmonary disease) Father COPD (chronic obstructive pulmonary disease) Heart disease Mother COPD (chronic obstructive pulmonary disease) History Items: Heart Disease Paternal Family History: Family History (Last Reviewed 04/11/20 @ 14:[address] Yefri Rubio MD) Daughter Asthma Sister COPD (chronic obstructive pulmonary disease) Father COPD (chronic obstructive pulmonary disease) Heart disease Mother COPD (chronic obstructive pulmonary disease) History Items: Heart Disease Review of Systems Constitutional: Denies: Chills, Fever, Weight Change HEENT: Denies: Head Aches, Sinus Congestion, Sinus Drainage Cardiovascular: Denies: Chest Pain, Palpitations Respiratory: Denies: Cough, Shortness of breath at rest, Sputum production Gastrointestinal: Denies: Abdominal Pain, Nausea, Vomiting Genitourinary: Denies: Dysuria Musculoskeletal: Reports: Leg Pain. Denies: Joint Tenderness Skin: Reports: Wounds - Left leg. Denies: Rash Neurological: Denies: Numbness, Tingling, Focal weakness Psychiatric: Denies: Anxiety, Depression, Homicidal Ideations, Suicidal Ideations Hematologic/ Lymphatic: Denies: Easy Bruising, Easy Bleeding VTE Information - Inpt Only VTE Present on Admission: No VTE Mechan Device Prophylaxis: SCD's VTE Pharm Prophylaxis ordered?: No Patient Problems: Active and Suspected Problems (Last Reviewed 02/03/21 @ 22:[address] Rupesh Jennings MD) Osteomyelitis (Acute) Sepsis (Acute) - Physical Exam Vitals/I&O's: Vital Signs Temp Pulse Resp BP Pulse Ox 96.1 F L 121 H 15 105/44 L 96 02/03/21 18:07 02/03/21 18:07 02/03/21 18:07 02/03/21 20:09 02/03/21 18:07 Oxygen Delivery Method Room Air Weight: 63.503 kg Body Mass Index (BMI) 29.2 Intake and Output for Last 24 Hours 02/01/21 02/02/21 02/03/21 23:59 23:59 23:59 Intake Total 106 / 106 Balance 106 / 106 General: Alert, Oriented x3, Cooperative HEENT: Atraumatic, PERRLA, EOMI, Normocephalic Neck: Supple, No JVD, Negative Carotid Bruits Lungs: Clear to auscultation, Normal air movement Cardiovascular: Regular rate, No murmurs Abdomen: Bowel Sounds Present, Soft, Non Tender Extremities: Capillary Refill Less than 3 Seconds, Edema - Left leg and left foot Skin: - - Erythema with pus; and tenderness of left leg. Musculoskeletal: No Tenderness to Palpation of Joints or Extremities Neurological: Cranial nerves II-XII grossly intact Psych/Mental Status: Normal Affect, Appropriate Laboratory Results 02/03/21 18:05: WBC 17.7 H, RBC 4.50, Hgb 12.7, Hct 39.8, MCV 88.4, MCH 28.2, MCHC 31.9 L, RDW Std Deviation 45.8 H, RDW Coeff of Naseem 14.2, Plt Count 518 H, MPV 8.5, Immature Gran % (Auto) 0.600, Neut % (Auto) 79.3 H, Lymph % (Auto) 11.7 L, Bennett % (Auto) 5.8, Eos % (Auto) 2.0, Baso % (Auto) 0.6, Absolute Neuts (auto) 14.1 H, Absolute Lymphs (auto) 2.07, Nucleated RBC % 0 02/03/21 18:05: Sodium 135 L, Potassium 3.3 L, Chloride 101, Carbon Dioxide 29.0, Anion Gap 5, BUN 9, Creatinine 0.75, Estim Creat Clear Calc 50.98, Est GFR (MDRD) Af Amer 98, Est GFR (MDRD) Non-Af 81, BUN/Creatinine Ratio 12.0, Glucose 135 H, Calcium 8.6 Assessment/Plan All Active Problems (Last Reviewed 02/03/21 @ 22:[address] Rupesh Jennings MD) Hypokalemia (Acute) Cellulitis (Acute) Osteomyelitis of left fibula (Acute) Osteomyelitis (Acute) Sepsis (Acute) Hx of tubal ligation (Acute) Cellulitis of left leg (Acute) Colonization status (Acute) C. difficile colitis (Resolved) Ulcer of left lower extremity, limited to breakdown of skin (Acute) The patient is a 70 year old F with a significant history of post polio syndrome who presents emergency department with increased odor of wound of left leg; and with x-ray findings of possible osteomyelitis. Sepsis secondary to Acute on chronic left leg cellulitis; and left leg osteomyelitis On initial presentation patient was not septic. However when patient got to the [place] she developed a fever and was tachycardic. Her blood pressure at the [place] dropped to 92/62. Tmax: 101.8F Heart rate of 145 WBC of 17,700 Check ESR and CRP. Blood cultures ordered Lactic acid ordered. Old records were reviewed. Wound culture on 10/16/2020 was remarkable for Pseudomonas and MSSA. Lower extremity MRI on 05/28/2020 was concerning for acute on chronic osteomyelitis of the distal one third aspect of the left fibula. Mild cortical erosion present on the lateral cortical surface with surrounding periosteal reaction. On this presentation tibia/fibula x-ray was concerning for periosteal reaction about the adjacent fibular shafts questionable for osteomyelitis. Received clindamycin at the emergency department. Of note patient is allergic to penicillins and cephalexin. Vancomycin; clindamycin and Levaquin ordered. Patient has history of C. difficile and family is concerned about development of C. difficile of antibiotics. Will start patient on prophylactic vancomycin p.o. Patient follows up with Dr. Cooper, wound care. Consult Dr. Cooper. Consider discussion case with Dr. Morel, vascular surgeon as there are plans for revascularization of leg. Infectious disease consult. Oxycodone parent for pain. Morphine IV. For pain. Home tramadol continued. Tylenol as needed Antiemetics and bowel protocol in place. Normal saline 1 L bolus ordered. Hold home metoprolol. Trend Blood pressures. Trend CBC and BMP. Peripheral artery disease Aspirin continued Pentoxifylline continued Statin continued Peripheral neuropathy Gabapentin continued Doxepin continued. DVT prophylaxis SCD ordered. Inpatient E&M: 80920 Init Hosp L3
[2021-02-03 22:22] VITALS: BP 124/53; PULSE 127; RESP 20; TEMP 36.3; O2SAT 96
[2021-02-03 22:24] VITALS: BP 124/53; PULSE 126; RESP 18; O2SAT 97
[2021-02-03] MEDS: Morphine 2 MG/ML Syringe 6 MG IV (22:31)
[2021-02-03 22:53] VITALS: BMI 27.1
[2021-02-03 22:55] VITALS: BP 124/57; PULSE 132; RESP 18; TEMP 36.8; O2SAT 98
[2021-02-03 23:22] VITALS: O2SAT 98
[2021-02-03] MEDS: Aspirin E.C. 81 MG Tablet PO (23:59)
[2021-02-03] MEDS: Levothyroxine 137 MCG Tablet PO (23:59)
[2021-02-03] MEDS: Doxepin Hydrochloride 10 MG Capsule PO (23:59)
[2021-02-04] VITALS (16 sets, daily range): BP systolic 92–137; BP diastolic 48–73; PULSE 80–145; RESP 12–18; TEMP 36.3–38.8; O2SAT 89–100
[2021-02-04] MEDS: traMADol 50 MG Tablet PO ×2 (00:09→09:54)
[2021-02-04] MEDS: Potassium Chloride Oral Tablet 20 MEQ 40 MEQ PO (00:17)
[2021-02-04] MEDS: Acetaminophen 325 MG Tablet 650 MG PO ×2 (00:22→11:49)
[2021-02-04] MEDS: 0.9% Normal Saline 1,000 ML 999 ML IV (00:25)
[2021-02-04] MEDS: Metoprolol Tartrate 100 MG Tablet PO ×2 (00:25→22:03)
[2021-02-04] MEDS: Vancomycin IV 1,000 MG/200 ML BAG 200 MG IV (01:25)
[2021-02-04 01:36] LABS: Lactic Acid 2.5 mmol/L (0.4-1.9)
--- NOTE | 2021-02-04 01:55 | PCM.RX.CS ---
Consult Pharmacy has been consulted to manage selected antiobiotic: Vancomycin Type of Consult: New start Suspected Infection: Osteomyelitis Labs: Sodium 135 mmol/L (136-145) L 02/03/21 18:05 Potassium 3.3 mmol/L (3.5-5.1) L 02/03/21 18:05 Chloride 101 mmol/L (98-107) 02/03/21 18:05 Carbon Dioxide 29.0 mmol/L (21.0-32.0) 02/03/21 18:05 Anion Gap 5 (5-15) 02/03/21 18:05 BUN 9 mg/dL (7-18) 02/03/21 18:05 Creatinine 0.75 mg/dL (0.55-1.02) 02/03/21 18:05 Est GFR (MDRD) Af Amer 98 mL/min (>60) 02/03/21 18:05 Est GFR (MDRD) Non-Af 81 mL/min (>60) 02/03/21 18:05 BUN/Creatinine Ratio 12.0 RATIO (10-20) 02/03/21 18:05 Glucose 135 mg/dL (74-106) H 02/03/21 18:05 Weight used for dosin.8 kg Estimated Creatinine Clearance: 54 Goal Trough: 10-15 mcg/mL Pharmacy Plan for Drug Dosing: Pharmacy Service will continue to monitor and adjust dosing as required. Medications Vancomycin HCl (Vancomycin) 1,000 mg in 200 mls @ 200 mls/hr IV Q24H NEIL Discontinued Medications Vancomycin HCl (Vancomycin) 1,000 mg in 200 mls @ 200 mls/hr IV X1 ONE Stop: 02/04/21 00:29 Last Admin: 02/04/21 01:25 Dose: 200 mls/hr Documented by: Follow-Up Labs: Trough Vancomycin Labs to be done on [date and time ordered]: 02/06 @ 0100
[2021-02-04] MEDS: levoFLOXacin IV 750 MG/150 ML BAG 100 MG IV (02:51)
[2021-02-04 04:57] LABS: Reflex Lactate? Y
[2021-02-04 05:27] LABS: Absolute Lymphocyte Count 2.38 X10^3/uL (0.83-4.51); Absolute Neutrophil Count 14.9 X10^3/uL (2.0-7.7); Basophil# 0.09 X10^3/uL; Basophil% 0.5 % (0-1); Eosinophil# 0.38 X10^3/uL; Hematocrit 36.4 % (37-47); Hemoglobin 11.2 g/dL (12.0-15.0); Lymphocyte # 2.38 X10^3/ul (4.0); Lymphocyte % 12.3 % (19-41); Mean Corp Hgb Conc 30.8 g/dL (32-36); Mean Corpuscular Hgb 27.8 pg (27.0-32.0); Mean Corpuscular Volume 90.3 fL (81-99); Mean Platelet Vol. 8.2 fl (6.2-12.0); Monocyte# 1.52 X10^3/uL; Monocyte% 7.9 % (0-10); NRBC Flagged by Analyzer 0 % (0-5); Neutrophil % 76.8 % (47-70); POSITIVE DIFFERENTIAL YES; Platelet Count 358 K/mm3 (150-450); RBC Distribution Width CV 14.3 % (11.6-14.6); RBC Distribution Width SD 47.3 fl (35.1-43.9); Red Blood Count 4.03 M/mm3 (4.2-5.4); White Blood Count 19.4 K/mm3 (4.4-11.0)
[2021-02-04 05:36] LABS: Erythrocyte Sedimentation Rate 61 mm/hr (0-30)
[2021-02-04 05:37] LABS: Differential Indicated SCAN CRITERIA MET
[2021-02-04 05:42] LABS: Anion Gap 2 (5-15); BUN 8 mg/dL (7-18); BUN/Creat Ratio 12.4 RATIO (10-20); Calcium,Total 7.6 mg/dL (8.5-10.1); Chloride 106 mmol/L (98-107); Creatinine, Serum 0.64 mg/dL (0.55-1.02); EST Glomerular Filtration Rate 96 mL/min (>60); Est Glom Filt Rate - Afr Amer 117 mL/min (>60); Glucose 80 mg/dL (74-106); Potassium 3.4 mmol/L (3.5-5.1); Sodium Level 132 mmol/L (136-145)
[2021-02-04 05:52] LABS: Lactic Acid 2.3 mmol/L (0.4-1.9)
[2021-02-04] MEDS: oxyCODONE 5 MG Tablet 10 MG PO ×2 (07:46→11:49)
--- NOTE | 2021-02-04 08:27 | PCM.PN.HOSP ---
Patient Problems: Active and Suspected Problems (Last Reviewed 02/04/21 @ 01:[address] Rupesh Jennings MD) Hypokalemia (Acute) Cellulitis (Acute) Osteomyelitis of left fibula (Acute) Osteomyelitis (Acute) Sepsis (Acute) Hx of tubal ligation (Acute) Cellulitis of left leg (Acute) Colonization status (Acute) Ulcer of left lower extremity, limited to breakdown of skin (Acute) Reason for Visit: Follow-up on left lower extremity infected ulcer/cellulitis Subjective: Patient was seen and examined. No acute events overnight. Complains of pain in the left lower extremity. Denies any fever or chills. Objective: General: Alert, Oriented x3, Cooperative HEENT: Atraumatic, PERRLA, EOMI, Normocephalic Neck: Supple, No JVD, Negative Carotid Bruits Lungs: Clear to auscultation, Normal air movement Cardiovascular: Regular rate, No murmurs Abdomen: Bowel Sounds Present, Soft, Non Tender Extremities: Edema - Left leg and left foot Skin: - -Worsening over the left lower leg. Musculoskeletal: No Tenderness to Palpation of Joints or Extremities Neurological: Cranial nerves II-XII grossly intact Psych/Mental Status: Normal Affect, Appropriate Vitals/I&O's: Vital Signs Temp Pulse Resp BP Pulse Ox 98.0 F 80 18 92/50 L 99 02/04/21 07:38 02/04/21 07:38 02/04/21 07:38 02/04/21 07:38 02/04/21 07:38 Oxygen Flow Rate (L/min) 2 Oxygen Delivery Method Nasal Cannula Weight: 58.8 kg Body Mass Index (BMI) 27.1 Intake and Output for Last 24 Hours 02/02/21 02/03/21 02/04/21 23:59 23:59 23:59 Intake Total 106 / 106 2003 Output Total 0 / 0 Balance 106 / 106 2003 Laboratory Results 02/03/21 18:05: WBC 17.7 H, RBC 4.50, Hgb 12.7, Hct 39.8, MCV 88.4, MCH 28.2, MCHC 31.9 L, RDW Std Deviation 45.8 H, RDW Coeff of Naseem 14.2, Plt Count 518 H, MPV 8.5, Immature Gran % (Auto) 0.600, Neut % (Auto) 79.3 H, Lymph % (Auto) 11.7 L, [place] % (Auto) 5.8, Eos % (Auto) 2.0, Baso % (Auto) 0.6, Absolute Neuts (auto) 14.1 H, Absolute Lymphs (auto) 2.07, Nucleated RBC % 0 02/03/21 18:05: Sodium 135 L, Potassium 3.3 L, Chloride 101, Carbon Dioxide 29.0, Anion Gap 5, BUN 9, Creatinine 0.75, Estim Creat Clear Calc 50.98, Est GFR (MDRD) Af Amer 98, Est GFR (MDRD) Non-Af 81, BUN/Creatinine Ratio 12.0, Glucose 135 H, Calcium 8.6 02/04/21 00:50: Lactic Acid 2.5 H* 02/04/21 05:18: WBC 19.4 H, RBC 4.03 L, Hgb 11.2 L, Hct 36.4 L, MCV 90.3, MCH 27.8, MCHC 30.8 L, RDW Std Deviation 47.3 H, RDW Coeff of Naseem 14.3, Plt Count 358, MPV 8.2, Immature Gran % (Auto) 0.500, Neut % (Auto) 76.8 H, Lymph % (Auto) 12.3 L, [place] % (Auto) 7.9, Eos % (Auto) 2.0, Baso % (Auto) 0.5, Absolute Neuts (auto) 14.9 H, Absolute Lymphs (auto) 2.38, Nucleated RBC % 0, Diff Path Review March, ESR 61 H 02/04/21 05:18: Sodium 132 L, Potassium 3.4 L, Chloride 106, Carbon Dioxide 24.0, Anion Gap 2 L, BUN 8, Creatinine 0.64, Estim Creat Clear Calc 47.20, Est GFR (MDRD) Af Amer 117, Est GFR (MDRD) Non-Af 96, BUN/Creatinine Ratio 12.4, Glucose 80, Calcium 7.6 L, C-React Prot Ext Range 135.00 H 02/04/21 05:18: Lactic Acid 2.3 H* Current Medications Acetaminophen (Acetaminophen 325 Mg Tablet) 650 mg PO Q6H PRN PRN PRN Reason: Pain Score 1-10/Temp > 100.7 F Last Admin: 02/04/21 00:22 Dose: 650 mg Documented by: Aspirin (Aspirin E.C. 81 Mg Tablet) 81 mg PO QHS [facility] Last Admin: 02/03/21 23:59 Dose: 81 mg Documented by: Atorvastatin Calcium (Atorvastatin Calcium 20 Mg Tablet) 20 mg PO QHS [facility] Last Admin: 02/04/21 00:00 Dose: 20 mg Documented by: Cholecalciferol (Cholecalciferol (Vit D3) 25 Mcg Tablet (1,000 Units)) 25 mcg PO DAILY [facility] Doxepin HCl (Doxepin Hydrochloride 10 Mg Capsule) 10 mg PO QHS [facility] Last Admin: 02/03/21 23:59 Dose: 10 mg Documented by: Gabapentin (Gabapentin 100 Mg Capsule) 100 mg PO DAILY [facility] Clindamycin Phosphate 600 mg/ (Dextrose) 54 mls @ 100 mls/hr IV Q8 [facility] Last Infusion: 02/04/21 06:17 Dose: Infused Documented by: Vancomycin IV Pharmacy to Dose (1 each/ Sodium Chloride) 500 mls @ 250 mls/hr IV X1 PRN; Protocol PRN Reason: Rx to Dose Sodium Chloride () 250 mls @ 15 mls/hr IV .[id number] PRN PRN Reason: Saline Flush Sodium Chloride () 250 mls @ 15 mls/hr IV .[id number] PRN PRN Reason: Additional IVPB Infusion Levofloxacin (Levaquin Iv) 750 mg in 150 mls @ 100 mls/hr IV QHS [facility] Last Infusion: 02/04/21 04:41 Dose: Infused Documented by: Vancomycin HCl (Vancomycin) 1,000 mg in 200 mls @ 200 mls/hr IV Q24H [facility] Lactobacillus Acidophilus (Lactobacillus Acidophilus) 1 tablet PO BID [facility] Last Admin: 02/03/21 23:59 Dose: 1 tablet Documented by: Levothyroxine Sodium (Levothyroxine 137 Mcg Tablet) 137 mcg PO QHS [facility] Last Admin: 02/03/21 23:59 Dose: 137 mcg Documented by: Melatonin (Melatonin 3 Mg Tablet) 3 mg PO QHS PRN PRN PRN Reason: INSOMNIA Morphine Sulfate (Morphine 4 Mg/Ml Syringe) 4 mg IV Q3H PRN PRN PRN Reason: PAIN 8-10 Nutritional Formula (Lactose Free) (Ensure Enlive 120 Ml Liquid) 120 ml PO 4X/DAY [facility] Ondansetron HCl (Ondansetron 4 Mg/2 Ml Vial) 4 mg IV Q8H PRN PRN PRN Reason: NAUSEA/VOMITING Oxycodone HCl (Oxycodone 5 Mg Tablet) 10 mg PO Q4H PRN PRN PRN Reason: PAIN 4-7 Last Admin: 02/04/21 07:46 Dose: 10 mg Documented by: Pentoxifylline (Pentoxifylline 400 Mg Tablet) 400 mg PO DAILY [facility] Senna/Docusate Sodium (Senna/Docusate Sodium 1 Tablet) 2 tablet PO BID PRN PRN PRN Reason: Constipation Sodium Chloride (0.9% Saline Lock 10 Ml Syringe) 10 - 40 ml IV UD PRN PRN Reason: SALINE FLUSH Tramadol HCl (Tramadol 50 Mg Tablet) 50 mg PO BID [facility] Last Admin: 02/04/21 00:09 Dose: 50 mg Documented by: Vancomycin HCl (Vancomcyin 125 Mg/5 Ml Susp Po.Syringe) 125 mg PO Q6 [facility] Last Admin: 02/04/21 05:34 Dose: 125 mg Documented by: STROKE Vital Signs/Narrative: Vital Signs Temp Pulse Resp BP Pulse Ox 02/04/21 07:38 98.0 F 80 18 92/50 L 99 Medical Necessity - Tobacco Use Smoking Status: Former smoker Assessment/Plan All Active Problems (Last Reviewed 02/04/21 @ 01:[address] Rupesh Jennings MD) Severe sepsis (Acute) Hypokalemia (Acute) Cellulitis (Acute) Osteomyelitis of left fibula (Acute) Osteomyelitis (Acute) Sepsis (Acute) Hx of tubal ligation (Acute) Cellulitis of left leg (Acute) Colonization status (Acute) C. difficile colitis (Resolved) Ulcer of left lower extremity, limited to breakdown of skin (Acute) 1. Severe sepsis secondary to acute on chronic left lower leg cellulitis/osteomyelitis, improving History of Pseudomonas and MSSA; post with Dr. Cooper in the wound center Recent MRI of the lower extremity on 05/28/20 showed acute on chronic osteomyelitis of the distal one third aspect of the fibula Blood and wound cultures are pending; continue on IV vancomycin and cefepime ID and podiatry consulted 2. 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 Doppler ultrasound of the left lower leg was negative for acute DVT Continue on aspirin, statin, pentoxifylline 3. Hypokalemia, potassium was 3.4, replaced, recheck in a.m. 4. History of C. difficile colitis, on prophylactic oral vancomycin 5. Hypertension; episode of hypotension at admission, improved with IVF Off metoprolol for now. Resume when blood pressure is improved 6. Hyperlipidemia, continue on statin 7. Peripheral neuropathy, continue on gabapentin 8. DVT PPx- Heparin SC Inpatient E&M: 63023 Subs Hosp L2
[2021-02-04] MEDS: Gabapentin 100 MG Capsule PO (08:40)
[2021-02-04] MEDS: Cholecalciferol (VIT D3) 25 MCG TABLET (1,000 UNITS) PO (08:41)
[2021-02-04] MEDS: Pentoxifylline 400 MG Tablet PO (08:41)
[2021-02-04] MEDS: 0.9% Normal Saline 1,000 ML 150 ML IV (08:48)
[2021-02-04] MEDS: Potassium Chloride Oral Tablet 20 MEQ 60 MEQ PO (09:54)
--- NOTE | 2021-02-04 09:57 | NURSING ---
PT PLACED ON O2 2L NC
--- NOTE | 2021-02-04 09:58 | NURSING ---
PT PLACED ON O2 2L NC
--- NOTE | 2021-02-04 10:21 | CON.PCM_ITS ---
Problem List (1) Cellulitis of left lower extremity Status: Inactive Reason for Consult: cellulitis Consulted by: Dr. Jennings History of Present Illness: The patient is a 70 year old F with recurrent LLE infection and recurrent cdiff, presented to ED yesterday with worsening L lower leg redness, pain, drainage. No inciting event. Pain was severe, no fever. Off po vanc for about a month, no diarrhea, some loose/soft stool. Came to ED, admitted on vanc iv, vanc po, clinda, and levaquin. Full ROS performed and neg except as noted above. - Medical History Past Medical History (Chronic Problems): Chronic Problems (Last Reviewed 02/04/21 @ 01:[address] Rupesh Jennings MD) Localized edema (Chronic) Chronic pain (Chronic) Post-polio syndrome (Chronic) Hx of knee surgery (Chronic) History of hip surgery (Chronic) Pseudomonas aeruginosa colonization (Chronic) Ulcer of left lower extremity with fat layer exposed (Chronic) Delayed wound healing (Chronic) Venous insufficiency (Chronic) left Greater saphenous vein Other specified peripheral vascular diseases (Chronic) bilateral lower extremity Left leg pain (Chronic) Leg edema, left (Chronic) Diarrhea (Chronic) MVP (mitral valve prolapse) (Chronic) Thyroid disorder (Chronic) HTN (hypertension) (Chronic) HLD (hyperlipidemia) (Chronic) Former tobacco use (Chronic) Sinus tachycardia (Chronic) Allergies/Adverse Reactions: Allergies naproxen [From Naprosyn] Allergy (Verified 02/03/21 18:10) Rash Penicillins [PCN] Allergy (Verified 02/03/21 18:10) Rash amoxicillin Adverse Reaction (Verified 02/03/21 18:10) Rash cephalexin [From Keflex] Adverse Reaction (Verified 02/03/21 18:10) Rash clotrimazole [From Lotrimin] Adverse Reaction (Verified 02/03/21 18:10) Rash diphenhydramine [From Benadryl] Adverse Reaction (Verified 02/03/21 18:10) Rash griseofulvin Adverse Reaction (Verified 02/03/21 18:10) Rash ibuprofen [From Motrin] Adverse Reaction (Verified 02/03/21 18:10) Rash miconazole [From Monistat 1 Combo Pack] Adverse Reaction (Verified 02/03/21 18:10) Rash propranolol [From Inderal LA] Adverse Reaction (Verified 02/03/21 18:10) Rash rofecoxib [From Vioxx] Adverse Reaction (Verified 02/03/21 18:10) Rash Sulfa (Sulfonamide Antibiotics) Adverse Reaction (Verified 02/03/21 18:10) Rash Home Medications: Ambulatory Orders Medication Instructions Recorded RX: Aspirin E.C. [Ecotrin] 81 mg PO DAILY 11/28/19 RX: Doxepin HCl [Sinequan] 10 mg PO QHS 11/28/19 RX: Levothyroxine [Synthroid] 137 mcg PO QHS 11/28/19 RX: Pentoxifylline [Trental] 400 mg PO QHS 11/28/19 RX: Simvastatin [Zocor] 40 mg PO QHS 11/28/19 RX: Lactobacillus Acidophilus 2 tab PO BID 03/26/20 [Acidophilus] RX: Metoprolol Tartrate 50 mg PO DAILY 03/26/20 RX: Metoprolol Tartrate [Lopressor 100 mg PO QHS 03/26/20 (beta stefany)] cholecalciferol (vitamin D3) 25 25 mcg PO DAILY 04/11/20 mcg (1,000 unit) capsule RX: Acetaminophen [Tylenol Tablet] 650 mg PO Q6H PRN PRN tab 05/31/20 Gabapentin [Neurontin] 100 mg PO DAILY 02/03/21 RX: traMADol [Ultram] 50 mg PO BID 02/03/21 - Social History SMOKING STATUS:: Former smoker Vital Signs Temp Pulse Resp BP Pulse Ox 98.0 F 80 18 92/50 L 89 02/04/21 07:38 02/04/21 07:38 02/04/21 07:38 02/04/21 07:38 02/04/21 08:45 Oxygen Flow Rate (L/min) 2 Oxygen Delivery Method Room Air Weight: 58.8 kg Body Mass Index (BMI) 27.1 Laboratory Tests Past 24 Hrs 02/03/21 02/03/21 02/04/21 18:05 18:05 00:50 WBC 17.7 H RBC 4.50 Hgb 12.7 Hct 39.8 MCV 88.4 MCH 28.2 MCHC 31.9 L RDW Std Deviation 45.8 H RDW Coeff of Naseem 14.2 Plt Count 518 H MPV 8.5 Immature Gran % (Auto) 0.600 Neut % (Auto) 79.3 H Lymph % (Auto) 11.7 L [place] % (Auto) 5.8 Eos % (Auto) 2.0 Baso % (Auto) 0.6 Absolute Neuts (auto) 14.1 H Absolute Lymphs (auto) 2.07 Nucleated RBC % 0 Diff Path Review ESR Sodium 135 L Potassium 3.3 L Chloride 101 Carbon Dioxide 29.0 Anion Gap 5 BUN 9 Creatinine 0.75 Estim Creat Clear Calc 50.98 Est GFR (MDRD) Af Amer 98 Est GFR (MDRD) Non-Af 81 BUN/Creatinine Ratio 12.0 Glucose 135 H Lactic Acid 2.5 H* Calcium 8.6 C-React Prot Ext Range 02/04/21 02/04/21 02/04/21 05:18 05:18 05:18 WBC 19.4 H RBC 4.03 L Hgb 11.2 L Hct 36.4 L MCV 90.3 MCH 27.8 MCHC 30.8 L RDW Std Deviation 47.3 H RDW Coeff of Naseem 14.3 Plt Count 358 MPV 8.2 Immature Gran % (Auto) 0.500 Neut % (Auto) 76.8 H Lymph % (Auto) 12.3 L [place] % (Auto) 7.9 Eos % (Auto) 2.0 Baso % (Auto) 0.5 Absolute Neuts (auto) 14.9 H Absolute Lymphs (auto) 2.38 Nucleated RBC % 0 Diff Path Review May foll ESR 61 H Sodium 132 L Potassium 3.4 L Chloride 106 Carbon Dioxide 24.0 Anion Gap 2 L BUN 8 Creatinine 0.64 Estim Creat Clear Calc 47.20 Est GFR (MDRD) Af Amer 117 Est GFR (MDRD) Non-Af 96 BUN/Creatinine Ratio 12.4 Glucose 80 Lactic Acid 2.3 H* Calcium 7.6 L C-React Prot Ext Range 135.00 H - Other Studies Radiology: [] reviewed Other Studies: [] Route of nutrition/ use of supplements: [] Nutritional Intake: [] IV Site: [] [place] Catheter: [] - Physical Exam General: Alert, Oriented x3, Cooperative, No apparent distress HEENT: Atraumatic, PERRLA, EOMI Neck: Supple, No Nodes Lungs: Clear to auscultation, Normal air movement Cardiovascular: Regular rate, Regular Rhythm Abdomen: Soft, Non Tender, Non-Distended Extremities: Edema - mild Skin: Ulcer/ Wound - reviewed photo, L lower leg redness, ulceration. IV Site: Peripheral, without redness Musculoskeletal: No Tenderness to Palpation of Joints or Extremities Neurological: Cranial nerves II-XII grossly intact - Assessment/Plan Antibiotics: [] Assessment/Plan: [] Active and Suspected Problems (Last Reviewed 02/04/21 @ 01:[address] Rupesh Jennings MD) Hypokalemia (Acute) Cellulitis (Acute) Osteomyelitis of left fibula (Acute) Osteomyelitis (Acute) Sepsis (Acute) Hx of tubal ligation (Acute) Cellulitis of left leg (Acute) Colonization status (Acute) Ulcer of left lower extremity, limited to breakdown of skin (Acute) LLE infected ulcer and cellulitis - ordering wound cx of drainage. Dr. Cooper to see. Clinda and quinolones both with strong association with cdiff, will change abx to vanc and cefepime. Has tolerated ceftriaxone and cefepime in the past without issue. recurrent cdiff - po vanc for prophylaxis. Will follow, thank you, d/w nursing
--- NOTE | 2021-02-04 10:30 | CASEMGMT ---
RN APOLLO Face to Face with patient for initial transition planning/care coordination assessment. RN CM introduced self and role at [facility]. Patient lying in bed, alert and oriented. Patient willing to participate in assessment and is able to answer all questions appropriately. Care providers, pharmacy, and demographics verified. Patient wishes to discharge home, unsure of HHC at discharge, will monitor course of treatment for needs at discharge. Patient states she has no further needs or concerns at this time. CM to follow for discharge planning needs that may arise. PCP: Lula Specialists: Allison, podiatry; Leonid, Pain Preferred Pharmacy: [facility] Insurance: [employer] Prescription Benefit: yes Living Will/HPOA: yes, Farhan Nava LNOK: , daughter Living Arrangements: Patient lives with in a single story home with ramp to enter. Patient states sister and daughter are support and help provide care as well as aides 3 times per week. Transportation: sister, daughter DME/HHC: Patient states she has shower chair, grab bars, raised toilet, rollator, wheelchair, and oxygen at home. Patient has previously been to [facility] and has had [facility] previously. Disposition Plan: Patient to discharge home with family support and follow-up plans in place. Will monitor for HHC pending wound care and ATBs. Stella FUENTES, RN, CM
--- NOTE | 2021-02-04 10:30 | NURSING ---
PT RESTING IN BED WITH EYES CLOSED, RESP EASY
--- NOTE | 2021-02-04 11:15 | NURSING ---
wound photo: left lower leg (medial view)
--- NOTE | 2021-02-04 11:16 | NURSING ---
wound photo: left lower leg (anterior view)
[2021-02-04 11:34] LABS: Pathologist Review Reviewed
--- NOTE | 2021-02-04 12:13 | MRI_ITS ---
PROCEDURE: MRI LOWER EXTREMITY LEFT TIBIA/FIBULA REASON FOR EXAM: Female, 70 years old. osteomyelitis TECHNIQUE: Standardized fat and water weighted pulse sequences were obtained in all 3 orthogonal planes. COMPARISON: Left tibia and fibula dated February 03, 2021. MRI of the left tibia and fibula dated May 28, 2020 FINDINGS: Reidentification of mild cortical thinning in the mid to distal one third aspect of the fibula which is encased by chronic periosteal reaction along the cortices which is indicative of sequela of chronic osteomyelitis. Mild intramedullary edema is present in the distal one third aspect of the fibular shaft but the cortex is intact. The posterior cortex of the middle one third aspect of the fibula has been eroded and resorbed and edematous signal is present in the marrow space at this level see image #26/40 series 6 and image #15/26 series 4. The soft tissues immediately lateral to this area are lacerated and and an edematous but no overlying abscess muscle fibers or a cutaneous fat is present. The findings are compatible with cellulitis and possibly infectious myositis without an abscess. Mild edema is also present in the tibialis anterior muscle in the mid to distal one third region of the calf. Mild to moderate subcutaneous edema is present. Significant fatty atrophy is demonstrated in multiple muscles of the calf. Normal tibia, without a periosteal, cortical or cancellous marrow abnormality. There is no solid, cystic or lipomatous mass lesion of the subcutis adipose space. MRI/Lower Ext/No Jt/w/o IMPRESSION: 1. Acute on chronic osteomyelitis in the mid to distal one third posterior cortex of the fibula and intramedullary space, which shows the cortex is been eating away focally at this level with overlying periosteal reaction. Infectious myositis and cellulitis are also present at this level without an abscess. Electronically Signed: Carlos Navarro MD at 19:28 EDT , Service support ,
--- NOTE | 2021-02-04 12:16 | PCM.CONS.GEN ---
Reason for Consult Date of Consultation: 02/04/21 Reason for Consultation: Left leg ulcer, infection History of Present Illness: The patient is a 70 year old female with hx of osteomyelitis left fibula and chronic ulceration developed recurrent signs/symptoms of infection. She was admitted for further workup and treatment. She has been started on IV antibiotics. A culture has been obtained. WBC elevated. Patient currently afebrile and resting in bed. She has chronic pain to the leg. She relates she is scheduled for revasc procedure to leg w/ Dr. Morel next week. She relates she does not want an amputation. She has no other complaints. Past Medical History Past Medical History (Chronic Problems): Chronic Problems (Last Reviewed 02/04/21 @ 01:[address] Rupesh Jennings MD) Localized edema (Chronic) Chronic pain (Chronic) Post-polio syndrome (Chronic) Hx of knee surgery (Chronic) History of hip surgery (Chronic) Pseudomonas aeruginosa colonization (Chronic) Ulcer of left lower extremity with fat layer exposed (Chronic) Delayed wound healing (Chronic) Venous insufficiency (Chronic) left Greater saphenous vein Other specified peripheral vascular diseases (Chronic) bilateral lower extremity Left leg pain (Chronic) Leg edema, left (Chronic) Diarrhea (Chronic) MVP (mitral valve prolapse) (Chronic) Thyroid disorder (Chronic) HTN (hypertension) (Chronic) HLD (hyperlipidemia) (Chronic) Former tobacco use (Chronic) Sinus tachycardia (Chronic) Medical History: Medical History (Last Reviewed 02/04/21 @ 01:[address] Rupesh Jennings MD) Pseudomonas aeruginosa colonization (Chronic) Z22.39 Ulcer of left lower extremity with fat layer exposed (Chronic) L97.922 Delayed wound healing (Chronic) T14.8XXD Venous insufficiency (Chronic) I87.2 left Greater saphenous vein Other specified peripheral vascular diseases (Chronic) I73.89 bilateral lower extremity Left leg pain (Chronic) M79.605 Cellulitis of left leg (Acute) L03.116 Leg edema, left (Chronic) R60.0 Colonization status (Acute) Z22.9 Diarrhea (Chronic) R19.7 Tachycardia (Inactive) R00.0 MVP (mitral valve prolapse) (Chronic) I34.1 C. difficile colitis (Resolved) A04.72 Thyroid disorder (Chronic) E07.9 Ulcer of left lower extremity, limited to breakdown of skin (Acute) L97.921 Colitis (Inactive) K52.9 HTN (hypertension) (Chronic) I10 HLD (hyperlipidemia) (Chronic) E78.5 Former tobacco use (Chronic) Z87.891 Sinus tachycardia (Chronic) R00.0 Allergies naproxen [From Naprosyn] Allergy (Verified 02/03/21 18:10) Rash Penicillins [PCN] Allergy (Verified 02/03/21 18:10) Rash amoxicillin Adverse Reaction (Verified 02/03/21 18:10) Rash cephalexin [From Keflex] Adverse Reaction (Verified 02/03/21 18:10) Rash clotrimazole [From Lotrimin] Adverse Reaction (Verified 02/03/21 18:10) Rash diphenhydramine [From Benadryl] Adverse Reaction (Verified 02/03/21 18:10) Rash griseofulvin Adverse Reaction (Verified 02/03/21 18:10) Rash ibuprofen [From Motrin] Adverse Reaction (Verified 02/03/21 18:10) Rash miconazole [From Monistat 1 Combo Pack] Adverse Reaction (Verified 02/03/21 18:10) Rash propranolol [From Inderal LA] Adverse Reaction (Verified 02/03/21 18:10) Rash rofecoxib [From Vioxx] Adverse Reaction (Verified 02/03/21 18:10) Rash Sulfa (Sulfonamide Antibiotics) Adverse Reaction (Verified 02/03/21 18:10) Rash Home Medications: Ambulatory Orders Medication Instructions Recorded Aspirin E.C. [Ecotrin] 81 mg PO DAILY 11/28/19 Doxepin HCl [Sinequan] 10 mg PO QHS 11/28/19 Levothyroxine [Synthroid] 137 mcg PO QHS 11/28/19 Pentoxifylline [Trental] 400 mg PO QHS 11/28/19 Simvastatin [Zocor] 40 mg PO QHS 11/28/19 Lactobacillus Acidophilus 2 tab PO BID 03/26/20 [Acidophilus] Metoprolol Tartrate 50 mg PO DAILY 03/26/20 Metoprolol Tartrate [Lopressor 100 mg PO QHS 03/26/20 (beta stefany)] cholecalciferol (vitamin D3) 25 25 mcg PO DAILY 04/11/20 mcg (1,000 unit) capsule Acetaminophen [Tylenol Tablet] 650 mg PO Q6H PRN PRN tab 05/31/20 Gabapentin [Neurontin] 100 mg PO DAILY 02/03/21 traMADol [Ultram] 50 mg PO BID 02/03/21 Surgical History: Surgical History (Last Reviewed 02/04/21 @ 01:[address] Rupesh Jennings MD) Hx of knee surgery (Chronic) Z98.890 History of hip surgery (Chronic) Z98.890 Hx of tubal ligation (Acute) Z98.51 Surgical History: - - Bilateral lower extremity surgery for polio in her youth, bilateral tubal ligation. 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 Yefri Rubio MD) Daughter Asthma Sister COPD (chronic obstructive pulmonary disease) Father COPD (chronic obstructive pulmonary disease) Heart disease Mother COPD (chronic obstructive pulmonary disease) History Items: Heart Disease Paternal Family History: Family History (Last Reviewed 04/11/20 @ 14:[address] Yefri Rubio MD) Daughter Asthma Sister COPD (chronic obstructive pulmonary disease) Father COPD (chronic obstructive pulmonary disease) Heart disease Mother COPD (chronic obstructive pulmonary disease) History Items: Heart Disease Review of Systems Constitutional: Denies: Chills, Fever Gastrointestinal: Denies: Nausea, Vomiting Skin: Reports: Wounds Patient Problems: Active and Suspected Problems (Last Reviewed 02/04/21 @ 01:[address] Rupesh Jennings MD) Hypokalemia (Acute) Cellulitis (Acute) Osteomyelitis of left fibula (Acute) Osteomyelitis (Acute) Sepsis (Acute) Hx of tubal ligation (Acute) Cellulitis of left leg (Acute) Colonization status (Acute) Ulcer of left lower extremity, limited to breakdown of skin (Acute) - Physical Exam Vitals/I&O's: Vital Signs Temp Pulse Resp BP Pulse Ox 97.7 F L 100 18 123/53 H 100 02/04/21 12:00 02/04/21 12:00 02/04/21 12:00 02/04/21 12:00 02/04/21 12:00 Oxygen Flow Rate (L/min) 2 Oxygen Delivery Method Nasal Cannula Weight: 58.8 kg Body Mass Index (BMI) 27.1 Intake and Output for Last 24 Hours 02/02/21 02/03/21 02/04/21 23:59 23:59 23:59 Intake Total 106 / 106 2103 Output Total 0 / 0 Balance 106 / 106 2103 General: Alert, Cooperative, No apparent distress Extremities: Capillary Refill Less than 3 Seconds, - - Chronic ulcerations to left leg with cellulitis noted to the leg - ulcers appear to be down to subcutaneous tissue layer, no maloder noted, there is noted serous drainage. Left tib/fib xrays with no gas, there is noted to be chronic periosteal reaction to the fibula. She has chronic pain to left leg Psych/Mental Status: Appropriate, Alert and oriented to time, place, person, mood and affect Laboratory Results 02/03/21 18:05: WBC 17.7 H, RBC 4.50, Hgb 12.7, Hct 39.8, MCV 88.4, MCH 28.2, MCHC 31.9 L, RDW Std Deviation 45.8 H, RDW Coeff of Naseem 14.2, Plt Count 518 H, MPV 8.5, Immature Gran % (Auto) 0.600, Neut % (Auto) 79.3 H, Lymph % (Auto) 11.7 L, [place] % (Auto) 5.8, Eos % (Auto) 2.0, Baso % (Auto) 0.6, Absolute Neuts (auto) 14.1 H, Absolute Lymphs (auto) 2.07, Nucleated RBC % 0 02/03/21 18:05: Sodium 135 L, Potassium 3.3 L, Chloride 101, Carbon Dioxide 29.0, Anion Gap 5, BUN 9, Creatinine 0.75, Estim Creat Clear Calc 50.98, Est GFR (MDRD) Af Amer 98, Est GFR (MDRD) Non-Af 81, BUN/Creatinine Ratio 12.0, Glucose 135 H, Calcium 8.6 02/04/21 00:50: Lactic Acid 2.5 H* 02/04/21 05:18: WBC 19.4 H, RBC 4.03 L, Hgb 11.2 L, Hct 36.4 L, MCV 90.3, MCH 27.8, MCHC 30.8 L, RDW Std Deviation 47.3 H, RDW Coeff of Naseem 14.3, Plt Count 358, MPV 8.2, Immature Gran % (Auto) 0.500, Neut % (Auto) 76.8 H, Lymph % (Auto) 12.3 L, [place] % (Auto) 7.9, Eos % (Auto) 2.0, Baso % (Auto) 0.5, Absolute Neuts (auto) 14.9 H, Absolute Lymphs (auto) 2.38, Nucleated RBC % 0, Diff Path Review Reviewed, ESR 61 H 02/04/21 05:18: Sodium 132 L, Potassium 3.4 L, Chloride 106, Carbon Dioxide 24.0, Anion Gap 2 L, BUN 8, Creatinine 0.64, Estim Creat Clear Calc 47.20, Est GFR (MDRD) Af Amer 117, Est GFR (MDRD) Non-Af 96, BUN/Creatinine Ratio 12.4, Glucose 80, Calcium 7.6 L, C-React Prot Ext Range 135.00 H 02/04/21 05:18: Lactic Acid 2.3 H* Current Medications Acetaminophen (Acetaminophen 325 Mg Tablet) 650 mg PO Q6H PRN PRN PRN Reason: Pain Score 1-10/Temp > 100.7 F Last Admin: 02/04/21 11:49 Dose: 650 mg Documented by: Aspirin (Aspirin E.C. 81 Mg Tablet) 81 mg PO QHS [facility] Last Admin: 02/03/21 23:59 Dose: 81 mg Documented by: Atorvastatin Calcium (Atorvastatin Calcium 20 Mg Tablet) 20 mg PO QHS [facility] Last Admin: 02/04/21 00:00 Dose: 20 mg Documented by: Cholecalciferol (Cholecalciferol (Vit D3) 25 Mcg Tablet (1,000 Units)) 25 mcg PO DAILY [facility] Last Admin: 02/04/21 08:41 Dose: 25 mcg Documented by: Doxepin HCl (Doxepin Hydrochloride 10 Mg Capsule) 10 mg PO QHS [facility] Last Admin: 02/03/21 23:59 Dose: 10 mg Documented by: Gabapentin (Gabapentin 100 Mg Capsule) 100 mg PO DAILY [facility] Last Admin: 02/04/21 08:40 Dose: 100 mg Documented by: Vancomycin IV Pharmacy to Dose (1 each/ Sodium Chloride) 500 mls @ 250 mls/hr IV X1 PRN; Protocol PRN Reason: Rx to Dose Sodium Chloride () 250 mls @ 15 mls/hr IV .[id number] PRN PRN Reason: Saline Flush Sodium Chloride () 250 mls @ 15 mls/hr IV .[id number] PRN PRN Reason: Additional IVPB Infusion Vancomycin HCl (Vancomycin) 1,000 mg in 200 mls @ 200 mls/hr IV Q24H [facility] Sodium Chloride () 1,000 mls @ 150 mls/hr IV .[id number] [facility] Stop: 02/04/21 15:09 Last Admin: 02/04/21 08:48 Dose: 150 mls/hr Documented by: Cefepime HCl 2 gm/ Sodium (Chloride) 100 mls @ 200 mls/hr IV BID [facility] Last Infusion: 02/04/21 10:24 Dose: Infused Documented by: Lactobacillus Acidophilus (Lactobacillus Acidophilus) 1 tablet PO BID [facility] Last Admin: 02/04/21 08:40 Dose: 1 tablet Documented by: Levothyroxine Sodium (Levothyroxine 137 Mcg Tablet) 137 mcg PO QHS [facility] Last Admin: 02/03/21 23:59 Dose: 137 mcg Documented by: Melatonin (Melatonin 3 Mg Tablet) 3 mg PO QHS PRN PRN PRN Reason: INSOMNIA Nutritional Formula (Lactose Free) (Ensure Enlive 120 Ml Liquid) 120 ml PO 4X/DAY [facility] Last Admin: 02/04/21 08:40 Dose: 120 ml Documented by: Ondansetron HCl (Ondansetron 4 Mg/2 Ml Vial) 4 mg IV Q8H PRN PRN PRN Reason: NAUSEA/VOMITING Oxycodone HCl (Oxycodone 5 Mg Tablet) 5 mg PO Q4H PRN PRN PRN Reason: Pain Score 6-10 Pentoxifylline (Pentoxifylline 400 Mg Tablet) 400 mg PO DAILY [facility] Last Admin: 02/04/21 08:41 Dose: 400 mg Documented by: Senna/Docusate Sodium (Senna/Docusate Sodium 1 Tablet) 2 tablet PO BID PRN PRN PRN Reason: Constipation Sodium Chloride (0.9% Saline Lock 10 Ml Syringe) 10 - 40 ml IV UD PRN PRN Reason: SALINE FLUSH Tramadol HCl (Tramadol 50 Mg Tablet) 50 mg PO BID [facility] Last Admin: 02/04/21 09:54 Dose: 50 mg Documented by: Vancomycin HCl (Vancomcyin 125 Mg/5 Ml Susp Po.Syringe) 125 mg PO Q6 [facility] Last Admin: 02/04/21 05:34 Dose: 125 mg Documented by: Assessment/Plan All Active Problems (Last Reviewed 02/04/21 @ 01:[address] Rupesh Jennings MD) Severe sepsis (Acute) Hypokalemia (Acute) Cellulitis (Acute) Osteomyelitis of left fibula (Acute) Osteomyelitis (Acute) Sepsis (Acute) Hx of tubal ligation (Acute) Cellulitis of left leg (Acute) Colonization status (Acute) C. difficile colitis (Resolved) Ulcer of left lower extremity, limited to breakdown of skin (Acute) Left leg ulceration down to subcutaneous ulcer - chronic Cellulitis left lower extremity Osteomyelitis left fibula - chronic Peripheral vascular disease lower extremity - chronic Diarrhea w/ c. diff Multiple comorbidities Left leg ulceration is chronic, cellulitis, left fibula with continued evidence of osteomyelitis on xray - new MRI ordered for further evaluation. ID service/ Dr. De La Cruz consulted. Culture has been obtained and is pending. Discussed concern that this will not heal and concern or continued recurrent infections - patient refuses amputation. Wound nursing consulted for wound care. Keep ulcer offloaded, keep elevated. Patient to continue follow up with Dr. Morel for PVD, there is no evidence of acute ischemia at this time. Podiatry will continue to follow.
--- NOTE | 2021-02-04 13:48 | NURSING ---
Had talked with Dr Nova. Santyl can be started tomorrow since dressing change was completed today and patient is quite painful with dressing change.
[2021-02-04] MEDS: Heparin Injection (Vial) 5,000 UNIT/ML VIAL 5000 UNIT SC (21:16)
[2021-02-04] MEDS: Doxepin Hydrochloride 10 MG Capsule PO (21:17)
[2021-02-04] MEDS: Levothyroxine 137 MCG Tablet PO (21:17)
[2021-02-04] MEDS: Aspirin E.C. 81 MG Tablet PO (21:17)
[2021-02-04] MEDS: Atorvastatin Calcium 20 MG Tablet PO ×2 (21:17)
[2021-02-05] VITALS (8 sets, daily range): BP systolic 99–160; BP diastolic 45–62; PULSE 109–139; RESP 16–20; TEMP 36.5–36.8; O2SAT 94–100
[2021-02-05] MEDS: 0.9% Normal Saline 1,000 ML 125 ML IV ×3 (00:03→18:35)
[2021-02-05] MEDS: Vancomycin IV 1,000 MG/200 ML BAG 200 MG IV (01:40)
[2021-02-05] MEDS: Menthol/Lanolin/Calamine/Znox 113 GM Tube 1 APPLIC TOPICAL ×2 (09:43→22:17)
[2021-02-05] MEDS: Cholecalciferol (VIT D3) 25 MCG TABLET (1,000 UNITS) PO (09:45)
[2021-02-05] MEDS: Pentoxifylline 400 MG Tablet PO (09:45)
[2021-02-05] MEDS: Gabapentin 100 MG Capsule PO (09:45)
[2021-02-05] MEDS: Heparin Injection (Vial) 5,000 UNIT/ML VIAL 5000 UNIT SC ×2 (09:45→22:11)
[2021-02-05] MEDS: Collagenase 30gm Tube 1 APPLIC TOPICAL (11:00)
--- NOTE | 2021-02-05 11:09 | PN_ITS ---
Patient Problems: Active and Suspected Problems (Last Reviewed 02/04/21 @ 01:[address] Rupesh Jennings MD) Hypokalemia (Acute) Cellulitis (Acute) Osteomyelitis of left fibula (Acute) Osteomyelitis (Acute) Sepsis (Acute) Hx of tubal ligation (Acute) Cellulitis of left leg (Acute) Colonization status (Acute) Ulcer of left lower extremity, limited to breakdown of skin (Acute) Reason for Visit: Follow-up on left lower extremity infected ulcer/cellulitis/acute on chronic osteomyelitis Subjective: Patient was seen and examined. No acute complaints. She continues to have pain in her left lower extremity. When I discussed about treatment options for her left leg osteomyelitis, she said she had no idea she needed amputation. She has frequent stools. Objective: Objective: General: Alert, Oriented x3, Cooperative HEENT: Atraumatic, PERRLA, EOMI, Normocephalic Neck: Supple, No JVD, Negative Carotid Bruits Lungs: Clear to auscultation, Normal air movement Cardiovascular: Regular rate, No murmurs Abdomen: Bowel Sounds Present, Soft, Non Tender Extremities: Edema - Left leg and left foot Skin: - -Dressing intact over left leg Musculoskeletal: No Tenderness to Palpation of Joints or Extremities Neurological: Cranial nerves II-XII grossly intact Psych/Mental Status: Normal Affect, Appropriate Vitals/I&O's: Vital Signs Temp Pulse Resp BP Pulse Ox 98.3 F 117 H 18 160/55 H 97 02/05/21 10:15 02/05/21 10:15 02/05/21 10:15 02/05/21 10:15 02/05/21 10:15 Oxygen Flow Rate (L/min) 1 Oxygen Delivery Method Nasal Cannula Weight: 58.8 kg Body Mass Index (BMI) 27.1 Intake and Output for Last 24 Hours 02/03/21 02/04/21 02/05/21 23:59 23:59 23:59 Intake Total 106 / 106 3744 / 3744 704.17 / 704.17 Output Total 200 / 200 350 / 350 Balance 106 / 106 3544 / 3544 354.17 / 354.17 Microbiology Past 72 Hours 02/04/21 10:45 Wound Abcess - Leg, Left Gram Stain - Final Laboratory Results 02/04/21 05:18: Diff Path Review Reviewed Current Medications Acetaminophen (Acetaminophen 325 Mg Tablet) 650 mg PO Q6H PRN PRN PRN Reason: Pain Score 1-10/Temp > 100.7 F Last Admin: 02/04/21 11:49 Dose: 650 mg Documented by: Aspirin (Aspirin E.C. 81 Mg Tablet) 81 mg PO QHS [facility] Last Admin: 02/04/21 21:17 Dose: 81 mg Documented by: Atorvastatin Calcium (Atorvastatin Calcium 20 Mg Tablet) 20 mg PO QHS [facility] Last Admin: 02/04/21 21:17 Dose: 20 mg Documented by: Calamine/Phenol (Menthol/Lanolin/Calamine/Znox 113 Gm Tube) 1 applic TOPICAL BID [facility]; Protocol Last Admin: 02/05/21 09:43 Dose: 1 applic Documented by: Cholecalciferol (Cholecalciferol (Vit D3) 25 Mcg Tablet (1,000 Units)) 25 mcg PO DAILY [facility] Last Admin: 02/05/21 09:45 Dose: 25 mcg Documented by: Collagenase (Collagenase 30gm Tube) 1 applic TOPICAL DAILY [facility]; Protocol Last Admin: 02/05/21 11:00 Dose: 1 applic Documented by: Doxepin HCl (Doxepin Hydrochloride 10 Mg Capsule) 10 mg PO QHS [facility] Last Admin: 02/04/21 21:17 Dose: 10 mg Documented by: Gabapentin (Gabapentin 100 Mg Capsule) 100 mg PO DAILY [facility] Last Admin: 02/05/21 09:45 Dose: 100 mg Documented by: Heparin Sodium (Porcine) (Heparin Injection (Vial) 5,000 Unit/Ml Vial) 5,000 unit SC Q12 [facility] Last Admin: 02/05/21 09:45 Dose: 5,000 unit Documented by: Vancomycin IV Pharmacy to Dose (1 each/ Sodium Chloride) 500 mls @ 250 mls/hr IV X1 PRN; Protocol PRN Reason: Rx to Dose Sodium Chloride () 250 mls @ 15 mls/hr IV .[id number] PRN PRN Reason: Saline Flush Sodium Chloride () 250 mls @ 15 mls/hr IV .[id number] PRN PRN Reason: Additional IVPB Infusion Vancomycin HCl (Vancomycin) 1,000 mg in 200 mls @ 200 mls/hr IV Q24H [facility] Last Infusion: 02/05/21 02:40 Dose: Infused Documented by: Cefepime HCl 2 gm/ Sodium (Chloride) 100 mls @ 200 mls/hr IV BID [facility] Last Admin: 02/05/21 11:00 Dose: 200 mls/hr Documented by: Sodium Chloride () 1,000 mls @ 125 mls/hr IV .Q8H [facility] Last Infusion: 02/05/21 11:04 Dose: 0 mls/hr Documented by: Lactobacillus Acidophilus (Lactobacillus Acidophilus) 1 tablet PO BID [facility] Last Admin: 02/05/21 09:45 Dose: 1 tablet Documented by: Levothyroxine Sodium (Levothyroxine 137 Mcg Tablet) 137 mcg PO QHS [facility] Last Admin: 02/04/21 21:17 Dose: 137 mcg Documented by: Melatonin (Melatonin 3 Mg Tablet) 3 mg PO QHS PRN PRN PRN Reason: INSOMNIA Metoprolol Tartrate (Metoprolol Tartrate 100 Mg Tablet) 100 mg PO QHS [facility] Last Admin: 02/04/21 22:03 Dose: 100 mg Documented by: Morphine Sulfate (Morphine 2 Mg/Ml Syringe) 1 mg IV Q4H PRN PRN PRN Reason: Pain Score 6-10 Nutritional Formula (Lactose Free) (Ensure Enlive 120 Ml Liquid) 120 ml PO 4X/DAY [facility] Last Admin: 02/05/21 09:43 Dose: 120 ml Documented by: Ondansetron HCl (Ondansetron 4 Mg/2 Ml Vial) 4 mg IV Q8H PRN PRN PRN Reason: NAUSEA/VOMITING Oxycodone HCl (Oxycodone 5 Mg Tablet) 10 mg PO Q4H PRN PRN PRN Reason: Pain Score 6-10 Pentoxifylline (Pentoxifylline 400 Mg Tablet) 400 mg PO DAILY [facility] Last Admin: 02/05/21 09:45 Dose: 400 mg Documented by: Senna/Docusate Sodium (Senna/Docusate Sodium 1 Tablet) 2 tablet PO BID PRN PRN PRN Reason: Constipation Sodium Chloride (0.9% Saline Lock 10 Ml Syringe) 10 - 40 ml IV UD PRN PRN Reason: SALINE FLUSH Vancomycin HCl (Vancomcyin 125 Mg/5 Ml Susp Po.Syringe) 125 mg PO Q6 [facility] Last Admin: 02/05/21 05:35 Dose: 125 mg Documented by: STROKE Vital Signs/Narrative: Vital Signs Temp Pulse Resp BP Pulse Ox 02/05/21 10:15 98.3 F 117 H 18 160/55 H 97 02/05/21 08:25 94 Medical Necessity - Tobacco Use Smoking Status: Former smoker Assessment/Plan All Active Problems (Last Reviewed 02/04/21 @ 01:[address] Rupesh Jennings MD) Severe sepsis (Acute) Hypokalemia (Acute) Cellulitis (Acute) Osteomyelitis of left fibula (Acute) Osteomyelitis (Acute) Sepsis (Acute) Hx of tubal ligation (Acute) Cellulitis of left leg (Acute) Colonization status (Acute) C. difficile colitis (Resolved) Ulcer of left lower extremity, limited to breakdown of skin (Acute) 1. Severe sepsis secondary to acute on chronic left lower leg cellulitis/osteomyelitis, improving History of Pseudomonas and MSSA; post with Dr. Cooper in the wound center Recent MRI of the lower extremity on 05/28/20 showed acute on chronic osteomyelitis of the distal one third aspect of the fibula Blood and wound cultures are pending; continue on IV vancomycin and cefepime ID and podiatry consulted; left BKA recommended; plastic surgery consulted 2. 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 Doppler ultrasound of the left lower leg was negative for acute DVT Continue on aspirin, statin, pentoxifylline 3. Hypokalemia, resolved, recheck in a.m. 4. Acute on chronic C. difficile colitis, on oral vancomycin 5. Hypertension, controlled, resumed on metoprolol 6. Hyperlipidemia, continue on statin 7. Peripheral neuropathy, continue on gabapentin 8. DVT PPx- Heparin SC Inpatient E&M: 77610 [facility] Hosp L2
[2021-02-05] MEDS: Morphine 2 MG/ML Syringe 1 MG IV (11:42)
--- NOTE | 2021-02-05 12:02 | CASEMGMT ---
Pt screened with [facility] Palliative Care Screening Tool. Pt did not meet criteria.
--- NOTE | 2021-02-05 12:32 | PN_ITS ---
Patient Problems: Active and Suspected Problems (Last Reviewed 02/04/21 @ 01:[address] Rupesh Jennings MD) Hypokalemia (Acute) Cellulitis (Acute) Osteomyelitis of left fibula (Acute) Osteomyelitis (Acute) Sepsis (Acute) Hx of tubal ligation (Acute) Cellulitis of left leg (Acute) Colonization status (Acute) Ulcer of left lower extremity, limited to breakdown of skin (Acute) Subjective: She continues to have a lot of pain to left leg wounds. She had MRI. She relates she has c diff now. She does not relate to any fever or chills. - Physical Exam Vitals/I&O's: Vital Signs Temp Pulse Resp BP Pulse Ox 98.3 F 117 H 18 160/55 H 97 02/05/21 10:15 02/05/21 10:15 02/05/21 10:15 02/05/21 10:15 02/05/21 10:15 Oxygen Flow Rate (L/min) 1 Oxygen Delivery Method Nasal Cannula Weight: 58.8 kg Body Mass Index (BMI) 27.1 Intake and Output for Last 24 Hours 02/03/21 02/04/21 02/05/21 23:59 23:59 23:59 Intake Total 106 / 106 3744 / 3744 704.17 / 704.17 Output Total 200 / 200 350 / 350 Balance 106 / 106 3544 / 3544 354.17 / 354.17 General: Alert, Cooperative, - - pain left leg Extremities: - - Left leg weeping serous drainage, cellulitis noted to the leg - ulcers appear to be down to subcutaneous tissue layer, some maloder. She has chronic pain to left leg Microbiology Past 72 Hours 02/04/21 10:45 Wound Abcess - Leg, Left Gram Stain - Final 02/04/21 10:45 Wound Abcess - Leg, Left Wound Culture - Preliminary Gram negative anna Current Medications Acetaminophen (Acetaminophen 325 Mg Tablet) 650 mg PO Q6H PRN PRN PRN Reason: Pain Score 1-10/Temp > 100.7 F Last Admin: 02/04/21 11:49 Dose: 650 mg Documented by: Aspirin (Aspirin E.C. 81 Mg Tablet) 81 mg PO QHS [facility] Last Admin: 02/04/21 21:17 Dose: 81 mg Documented by: Atorvastatin Calcium (Atorvastatin Calcium 20 Mg Tablet) 20 mg PO QHS [facility] Last Admin: 02/04/21 21:17 Dose: 20 mg Documented by: Calamine/Phenol (Menthol/Lanolin/Calamine/Znox 113 Gm Tube) 1 applic TOPICAL BID [facility]; Protocol Last Admin: 02/05/21 09:43 Dose: 1 applic Documented by: Cholecalciferol (Cholecalciferol (Vit D3) 25 Mcg Tablet (1,000 Units)) 25 mcg PO DAILY [facility] Last Admin: 02/05/21 09:45 Dose: 25 mcg Documented by: Collagenase (Collagenase 30gm Tube) 1 applic TOPICAL DAILY [facility]; Protocol Last Admin: 02/05/21 11:00 Dose: 1 applic Documented by: Doxepin HCl (Doxepin Hydrochloride 10 Mg Capsule) 10 mg PO QHS [facility] Last Admin: 02/04/21 21:17 Dose: 10 mg Documented by: Gabapentin (Gabapentin 100 Mg Capsule) 100 mg PO DAILY [facility] Last Admin: 02/05/21 09:45 Dose: 100 mg Documented by: Heparin Sodium (Porcine) (Heparin Injection (Vial) 5,000 Unit/Ml Vial) 5,000 unit SC Q12 [facility] Last Admin: 02/05/21 09:45 Dose: 5,000 unit Documented by: Vancomycin IV Pharmacy to Dose (1 each/ Sodium Chloride) 500 mls @ 250 mls/hr IV X1 PRN; Protocol PRN Reason: Rx to Dose Sodium Chloride () 250 mls @ 15 mls/hr IV .[id number] PRN PRN Reason: Saline Flush Sodium Chloride () 250 mls @ 15 mls/hr IV .[id number] PRN PRN Reason: Additional IVPB Infusion Vancomycin HCl (Vancomycin) 1,000 mg in 200 mls @ 200 mls/hr IV Q24H [facility] Last Infusion: 02/05/21 02:40 Dose: Infused Documented by: Cefepime HCl 2 gm/ Sodium (Chloride) 100 mls @ 200 mls/hr IV BID [facility] Last Admin: 02/05/21 11:00 Dose: 200 mls/hr Documented by: Sodium Chloride () 1,000 mls @ 125 mls/hr IV .Q8H [facility] Last Infusion: 02/05/21 11:04 Dose: 0 mls/hr Documented by: Lactobacillus Acidophilus (Lactobacillus Acidophilus) 1 tablet PO BID [facility] Last Admin: 02/05/21 09:45 Dose: 1 tablet Documented by: Levothyroxine Sodium (Levothyroxine 137 Mcg Tablet) 137 mcg PO QHS [facility] Last Admin: 02/04/21 21:17 Dose: 137 mcg Documented by: Melatonin (Melatonin 3 Mg Tablet) 3 mg PO QHS PRN PRN PRN Reason: INSOMNIA Metoprolol Tartrate (Metoprolol Tartrate 100 Mg Tablet) 100 mg PO QHS [facility] Last Admin: 02/04/21 22:03 Dose: 100 mg Documented by: Morphine Sulfate (Morphine 2 Mg/Ml Syringe) 1 mg IV Q4H PRN PRN PRN Reason: Pain Score 6-10 Last Admin: 02/05/21 11:42 Dose: 1 mg Documented by: Nutritional Formula (Lactose Free) (Ensure Enlive 120 Ml Liquid) 120 ml PO 4X/DAY [facility] Last Admin: 02/05/21 09:43 Dose: 120 ml Documented by: Ondansetron HCl (Ondansetron 4 Mg/2 Ml Vial) 4 mg IV Q8H PRN PRN PRN Reason: NAUSEA/VOMITING Oxycodone HCl (Oxycodone 5 Mg Tablet) 10 mg PO Q4H PRN PRN PRN Reason: Pain Score 6-10 Pentoxifylline (Pentoxifylline 400 Mg Tablet) 400 mg PO DAILY [facility] Last Admin: 02/05/21 09:45 Dose: 400 mg Documented by: Senna/Docusate Sodium (Senna/Docusate Sodium 1 Tablet) 2 tablet PO BID PRN PRN PRN Reason: Constipation Sodium Chloride (0.9% Saline Lock 10 Ml Syringe) 10 - 40 ml IV UD PRN PRN Reason: SALINE FLUSH Vancomycin HCl (Vancomcyin 125 Mg/5 Ml Susp Po.Syringe) 125 mg PO Q6 [facility] Last Admin: 02/05/21 11:11 Dose: 125 mg Documented by: Medical Necessity - Tobacco Use Smoking Status: Former smoker Assessment/Plan All Active Problems (Last Reviewed 02/04/21 @ 01:[address] Rupesh Jennings MD) Severe sepsis (Acute) Hypokalemia (Acute) Cellulitis (Acute) Osteomyelitis of left fibula (Acute) Osteomyelitis (Acute) Sepsis (Acute) Hx of tubal ligation (Acute) Cellulitis of left leg (Acute) Colonization status (Acute) C. difficile colitis (Resolved) Ulcer of left lower extremity, limited to breakdown of skin (Acute) Left leg ulceration down to subcutaneous ulcer - chronic Cellulitis left lower extremity Osteomyelitis left fibula - chronic Peripheral vascular disease lower extremity - chronic Diarrhea w/ c. diff Multiple comorbidities Left leg ulceration is chronic, cellulitis, left fibula with continued evidence of osteomyelitis on xray, reviewed MRI and continued osteomyelitis noted. ID service/ Dr. De La Cruz consulted. Culture has been obtained and is pending - blood cultures pending, wound culture with gram negative anna. Discussed concern that this will not heal and concern for continued recurrent infections - I believe best would be BKA or AKA; this was discussed with patient and she is open to this possibility. Will need to consult orthopedics or plastic surgery, will discuss with Dr. Holley, as well as w/ Dr. Morel. Continue local wound care daily dressing changes. Keep ulcer offloaded, keep elevated. Podiatry will continue to follow.
[2021-02-05] MEDS: oxyCODONE 5 MG Tablet 10 MG PO ×2 (12:38→18:36)
[2021-02-05] MEDS: Acetaminophen 325 MG Tablet 650 MG PO ×2 (12:38→18:36)
--- NOTE | 2021-02-05 12:54 | PCM.PN.ID ---
Patient Problems: Active and Suspected Problems (Last Reviewed 02/04/21 @ 01:[address] Rupesh Jennings MD) Hypokalemia (Acute) Cellulitis (Acute) Osteomyelitis of left fibula (Acute) Osteomyelitis (Acute) Sepsis (Acute) Hx of tubal ligation (Acute) Cellulitis of left leg (Acute) Colonization status (Acute) Ulcer of left lower extremity, limited to breakdown of skin (Acute) Subjective: C/o pain in leg, much worse diarrhea. No fever. - Physical Exam Vitals/I&O's: Vital Signs Temp Pulse Resp BP Pulse Ox 98.3 F 117 H 18 160/55 H 97 02/05/21 10:15 02/05/21 10:15 02/05/21 10:15 02/05/21 10:15 02/05/21 10:15 Oxygen Flow Rate (L/min) 1 Oxygen Delivery Method Nasal Cannula Weight: 58.8 kg Body Mass Index (BMI) 27.1 Intake and Output for Last 24 Hours 02/03/21 02/04/21 02/05/21 23:59 23:59 23:59 Intake Total 106 / 106 3744 / 3744 704.17 / 704.17 Output Total 200 / 200 350 / 350 Balance 106 / 106 3544 / 3544 354.17 / 354.17 General: Alert, Cooperative, No apparent distress Lungs: Clear to auscultation, Normal air movement Cardiovascular: Regular rate, Regular Rhythm Abdomen: Soft, Non Tender, Non-Distended Skin: Ulcer/ Wound - reviewed photos Microbiology Past 72 Hours 02/04/21 10:45 Wound Abcess - Leg, Left Gram Stain - Final 02/04/21 10:45 Wound Abcess - Leg, Left Wound Culture - Preliminary Gram negative anna Current Medications Acetaminophen (Acetaminophen 325 Mg Tablet) 650 mg PO Q6H PRN PRN PRN Reason: Pain Score 1-10/Temp > 100.7 F Last Admin: 02/05/21 12:38 Dose: 650 mg Documented by: Aspirin (Aspirin E.C. 81 Mg Tablet) 81 mg PO QHS [facility] Last Admin: 02/04/21 21:17 Dose: 81 mg Documented by: Atorvastatin Calcium (Atorvastatin Calcium 20 Mg Tablet) 20 mg PO QHS [facility] Last Admin: 02/04/21 21:17 Dose: 20 mg Documented by: Calamine/Phenol (Menthol/Lanolin/Calamine/Znox 113 Gm Tube) 1 applic TOPICAL BID [facility]; Protocol Last Admin: 02/05/21 09:43 Dose: 1 applic Documented by: Cholecalciferol (Cholecalciferol (Vit D3) 25 Mcg Tablet (1,000 Units)) 25 mcg PO DAILY [facility] Last Admin: 02/05/21 09:45 Dose: 25 mcg Documented by: Collagenase (Collagenase 30gm Tube) 1 applic TOPICAL DAILY [facility]; Protocol Last Admin: 02/05/21 11:00 Dose: 1 applic Documented by: Doxepin HCl (Doxepin Hydrochloride 10 Mg Capsule) 10 mg PO QHS [facility] Last Admin: 02/04/21 21:17 Dose: 10 mg Documented by: Gabapentin (Gabapentin 100 Mg Capsule) 100 mg PO DAILY [facility] Last Admin: 02/05/21 09:45 Dose: 100 mg Documented by: Heparin Sodium (Porcine) (Heparin Injection (Vial) 5,000 Unit/Ml Vial) 5,000 unit SC Q12 [facility] Last Admin: 02/05/21 09:45 Dose: 5,000 unit Documented by: Vancomycin IV Pharmacy to Dose (1 each/ Sodium Chloride) 500 mls @ 250 mls/hr IV X1 PRN; Protocol PRN Reason: Rx to Dose Sodium Chloride () 250 mls @ 15 mls/hr IV .[id number] PRN PRN Reason: Saline Flush Sodium Chloride () 250 mls @ 15 mls/hr IV .[id number] PRN PRN Reason: Additional IVPB Infusion Vancomycin HCl (Vancomycin) 1,000 mg in 200 mls @ 200 mls/hr IV Q24H [facility] Last Infusion: 02/05/21 02:40 Dose: Infused Documented by: Cefepime HCl 2 gm/ Sodium (Chloride) 100 mls @ 200 mls/hr IV BID [facility] Last Admin: 02/05/21 11:00 Dose: 200 mls/hr Documented by: Sodium Chloride () 1,000 mls @ 125 mls/hr IV .Q8H [facility] Last Infusion: 02/05/21 11:04 Dose: 0 mls/hr Documented by: Lactobacillus Acidophilus (Lactobacillus Acidophilus) 1 tablet PO BID [facility] Last Admin: 02/05/21 09:45 Dose: 1 tablet Documented by: Levothyroxine Sodium (Levothyroxine 137 Mcg Tablet) 137 mcg PO QHS [facility] Last Admin: 02/04/21 21:17 Dose: 137 mcg Documented by: Melatonin (Melatonin 3 Mg Tablet) 3 mg PO QHS PRN PRN PRN Reason: INSOMNIA Metoprolol Tartrate (Metoprolol Tartrate 100 Mg Tablet) 100 mg PO QHS [facility] Last Admin: 02/04/21 22:03 Dose: 100 mg Documented by: Morphine Sulfate (Morphine 2 Mg/Ml Syringe) 1 mg IV Q4H PRN PRN PRN Reason: Pain Score 6-10 Last Admin: 02/05/21 11:42 Dose: 1 mg Documented by: Nutritional Formula (Lactose Free) (Ensure Enlive 120 Ml Liquid) 120 ml PO 4X/DAY [facility] Last Admin: 02/05/21 09:43 Dose: 120 ml Documented by: Ondansetron HCl (Ondansetron 4 Mg/2 Ml Vial) 4 mg IV Q8H PRN PRN PRN Reason: NAUSEA/VOMITING Oxycodone HCl (Oxycodone 5 Mg Tablet) 10 mg PO Q4H PRN PRN PRN Reason: Pain Score 6-10 Last Admin: 02/05/21 12:38 Dose: 10 mg Documented by: Pentoxifylline (Pentoxifylline 400 Mg Tablet) 400 mg PO DAILY [facility] Last Admin: 02/05/21 09:45 Dose: 400 mg Documented by: Senna/Docusate Sodium (Senna/Docusate Sodium 1 Tablet) 2 tablet PO BID PRN PRN PRN Reason: Constipation Sodium Chloride (0.9% Saline Lock 10 Ml Syringe) 10 - 40 ml IV UD PRN PRN Reason: SALINE FLUSH Vancomycin HCl (Vancomcyin 125 Mg/5 Ml Susp Po.Syringe) 125 mg PO Q6 [facility] Last Admin: 02/05/21 11:11 Dose: 125 mg Documented by: Medical Necessity - Tobacco Use Smoking Status: Former smoker Route of nutrition/ use of supplements: [] Nutritional Intake: [] IV Site: [] [place] Catheter: [] - Assessment/Plan Antibiotics: [] Assessment/Plan: [] Active and Suspected Problems (Last Reviewed 02/04/21 @ 01:[address] Rupesh Jennings MD) Hypokalemia (Acute) Cellulitis (Acute) Osteomyelitis of left fibula (Acute) Osteomyelitis (Acute) Sepsis (Acute) Hx of tubal ligation (Acute) Cellulitis of left leg (Acute) Colonization status (Acute) Ulcer of left lower extremity, limited to breakdown of skin (Acute) LLE infected ulcer and cellulitis - wound cx with GNR so far. Cont vanc/cefepime. With chronic, recurrent osteo, discussed option of amputation with pt and Dr. Nova. She is going to think about it. recurrent cdiff - po vanc Will follow
[2021-02-05 14:31] LABS: Absolute Lymphocyte Count 1.46 X10^3/uL (0.83-4.51); Absolute Neutrophil Count 11.9 X10^3/uL (2.0-7.7); Basophil# 0.04 X10^3/uL; Basophil% 0.3 % (0-1); Eosinophil# 0.16 X10^3/uL; Eosinophils% 1.1 % (0-5); Hematocrit 30.8 % (37-47); Hemoglobin 9.7 g/dL (12.0-15.0); Lymphocyte # 1.46 X10^3/ul (4.0); Lymphocyte % 10.1 % (19-41); Mean Corp Hgb Conc 31.5 g/dL (32-36); Mean Corpuscular Hgb 28.3 pg (27.0-32.0); Mean Corpuscular Volume 89.8 fL (81-99); Mean Platelet Vol. 8.3 fl (6.2-12.0); Monocyte# 0.87 X10^3/uL; NRBC Flagged by Analyzer 0 % (0-5); Neutrophil # 11.87 X10^3/uL (2.7-7.7); Neutrophil % 81.9 % (47-70); Platelet Count 319 K/mm3 (150-450); RBC Distribution Width CV 14.6 % (11.6-14.6); RBC Distribution Width SD 48.6 fl (35.1-43.9); Red Blood Count 3.43 M/mm3 (4.2-5.4); White Blood Count 14.5 K/mm3 (4.4-11.0)
[2021-02-05 14:50] LABS: ALB/GLOB Ratio 0.4 RATIO (0.9-2.4); AST(SGOT) 23 U/L (15-37); Alanine Aminotransfer ALT/SGPT 10 U/L (13-56); Albumin, Serum 1.6 g/dL (3.2-5.0); Alkaline Phosphatase 116 U/L (45-117); Anion Gap 4 (5-15); BUN 7 mg/dL (7-18); Calcium,Total 8.1 mg/dL (8.5-10.1); Chloride 110 mmol/L (98-107); Creatinine, Serum 0.44 mg/dL (0.55-1.02); EST Glomerular Filtration Rate 150 mL/min (>60); Est Glom Filt Rate - Afr Amer 182 mL/min (>60); Globulin 3.8 g/dL (2.2-4.2); Glucose 97 mg/dL (74-106); Protein, Total 5.4 g/dL (6.4-8.2); Sodium Level 138 mmol/L (136-145)
[2021-02-05] MEDS: Metoprolol Tartrate 100 MG Tablet PO (20:08)
[2021-02-05] MEDS: Aspirin E.C. 81 MG Tablet PO (22:11)
[2021-02-05] MEDS: Atorvastatin Calcium 20 MG Tablet PO (22:11)
[2021-02-05] MEDS: Levothyroxine 137 MCG Tablet PO (22:12)
[2021-02-05] MEDS: Doxepin Hydrochloride 10 MG Capsule PO (22:12)
[2021-02-06] VITALS (7 sets, daily range): BP systolic 104–135; BP diastolic 37–61; PULSE 112–142; RESP 16–20; TEMP 36.4–37.3; O2SAT 96–98
[2021-02-06 01:26] LABS: Absolute Lymphocyte Count 1.34 X10^3/uL (0.83-4.51); Absolute Neutrophil Count 7.8 X10^3/uL (2.0-7.7); Basophil# 0.06 X10^3/uL; Basophil% 0.6 % (0-1); Eosinophil# 0.47 X10^3/uL; Eosinophils% 4.5 % (0-5); Hematocrit 30.2 % (37-47); Hemoglobin 9.6 g/dL (12.0-15.0); Lymphocyte # 1.34 X10^3/ul (4.0); Lymphocyte % 12.8 % (19-41); Mean Corp Hgb Conc 31.8 g/dL (32-36); Mean Corpuscular Hgb 28.4 pg (27.0-32.0); Mean Corpuscular Volume 89.3 fL (81-99); Mean Platelet Vol. 8.6 fl (6.2-12.0); Monocyte% 6.7 % (0-10); NRBC Flagged by Analyzer 0 % (0-5); Neutrophil % 74.6 % (47-70); Platelet Count 330 K/mm3 (150-450); RBC Distribution Width CV 14.7 % (11.6-14.6); RBC Distribution Width SD 48.9 fl (35.1-43.9); Red Blood Count 3.38 M/mm3 (4.2-5.4); White Blood Count 10.5 K/mm3 (4.4-11.0)
[2021-02-06 01:49] LABS: Vancomycin, Trough Level 7.4 ug/mL (5.0-15.0)
[2021-02-06] MEDS: Vancomycin IV 1,000 MG/200 ML BAG 200 MG IV (01:53)
[2021-02-06 01:54] LABS: ALB/GLOB Ratio 0.5 RATIO (0.9-2.4); AST(SGOT) 22 U/L (15-37); Alanine Aminotransfer ALT/SGPT 11 U/L (13-56); Albumin, Serum 1.6 g/dL (3.2-5.0); Alkaline Phosphatase 119 U/L (45-117); Anion Gap 2 (5-15); BUN 9 mg/dL (7-18); Calcium,Total 7.8 mg/dL (8.5-10.1); Chloride 112 mmol/L (98-107); Creatinine, Serum 0.56 mg/dL (0.55-1.02); EST Glomerular Filtration Rate 112 mL/min (>60); Est Glom Filt Rate - Afr Amer 136 mL/min (>60); Globulin 3.3 g/dL (2.2-4.2); Glucose 98 mg/dL (74-106); Protein, Total 4.9 g/dL (6.4-8.2); Sodium Level 142 mmol/L (136-145)
--- NOTE | 2021-02-06 02:49 | PCM.RX.CS ---
Consult Pharmacy has been consulted to manage selected antiobiotic: Vancomycin Type of Consult: Follow-up Suspected Infection: Osteomyelitis Prior Doses of Antibiotics Received/Current Regimen: Medications Vancomycin HCl 750 mg/ Sodium (Chloride) 265 mls @ 250 mls/hr IV Q12H [facility] Vancomycin HCl (Vancomycin) 1,000 mg in 200 mls @ 200 mls/hr IV Q24H [facility] Stop: 02/06/21 03:00 Last Admin: 02/06/21 01:53 Dose: 200 mls/hr Labs: Sodium 142 mmol/L (136-145) 02/06/21 01:15 Potassium 4.0 mmol/L (3.5-5.1) 02/06/21 01:15 Chloride 112 mmol/L (98-107) H 02/06/21 01:15 Carbon Dioxide 28.0 mmol/L (21.0-32.0) 02/06/21 01:15 Anion Gap 2 (5-15) L 02/06/21 01:15 BUN 9 mg/dL (7-18) 02/06/21 01:15 Creatinine 0.56 mg/dL (0.55-1.02) 02/06/21 01:15 Est GFR (MDRD) Af Amer 136 mL/min (>60) 02/06/21 01:15 Est GFR (MDRD) Non-Af 112 mL/min (>60) 02/06/21 01:15 BUN/Creatinine Ratio 16.0 RATIO (10-20) 02/06/21 01:15 Glucose 98 mg/dL (74-106) 02/06/21 01:15 Vancomycin Trough 7.4 ug/mL (5.0-15.0) 02/06/21 01:15 Microbiology: Microbiology 02/04/21 10:45 Wound Abcess - Leg, Left Gram Stain - Final 02/04/21 10:45 Wound Abcess - Leg, Left Wound Culture - Preliminary Gram negative anna Weight used for dosin.8 kg Estimated Creatinine Clearance: 83.1 Goal Trough: 10-15 mcg/mL Pharmacy Plan for Drug Dosing: Vancomycin trough level of 7.4 was below target range of 10-15. Will increase to 750mg q12h and re-draw a trough prior to 4th dose of new regimen. Pharmacy Service will continue to monitor and adjust dosing as required. Follow-Up Labs: Trough Vancomycin Labs to be done on [date and time ordered]: 02/08/21 @[id number]
[2021-02-06] MEDS: 0.9% Normal Saline 1,000 ML 125 ML IV (04:36)
[2021-02-06] MEDS: Morphine 2 MG/ML Syringe 1 MG IV ×2 (04:44→12:12)
[2021-02-06] MEDS: Acetaminophen 325 MG Tablet 650 MG PO ×3 (06:56→23:14)
[2021-02-06] MEDS: oxyCODONE 5 MG Tablet 10 MG PO ×3 (06:56→23:12)
--- NOTE | 2021-02-06 08:44 | CASEMGMT ---
Pt has medicare insurance, she can choose any tertiary care facility should she need to be transferred.
[2021-02-06] MEDS: Pentoxifylline 400 MG Tablet PO (10:10)
[2021-02-06] MEDS: Gabapentin 100 MG Capsule PO (10:10)
[2021-02-06] MEDS: Cholecalciferol (VIT D3) 25 MCG TABLET (1,000 UNITS) PO (10:10)
[2021-02-06] MEDS: Heparin Injection (Vial) 5,000 UNIT/ML VIAL 5000 UNIT SC ×2 (10:11→22:58)
[2021-02-06] MEDS: Menthol/Lanolin/Calamine/Znox 113 GM Tube 1 APPLIC TOPICAL ×2 (10:11→22:59)
[2021-02-06] MEDS: Collagenase 30gm Tube 1 APPLIC TOPICAL (10:12)
--- NOTE | 2021-02-06 10:34 | PCM.PN.ID ---
Patient Problems: Active and Suspected Problems (Last Reviewed 02/04/21 @ 01:[address] Rupesh Jennings MD) Hypokalemia (Acute) Cellulitis (Acute) Osteomyelitis of left fibula (Acute) Osteomyelitis (Acute) Sepsis (Acute) Hx of tubal ligation (Acute) Cellulitis of left leg (Acute) Colonization status (Acute) Ulcer of left lower extremity, limited to breakdown of skin (Acute) Subjective: Feeling about the same, no fever, pain improved, diarrhea starting to slow. - Physical Exam Vitals/I&O's: Vital Signs Temp Pulse Resp BP Pulse Ox 98.5 F 112 H 16 135/61 H 96 02/06/21 04:18 02/06/21 04:18 02/06/21 04:18 02/06/21 04:18 02/06/21 07:23 Oxygen Flow Rate (L/min) 1 Oxygen Delivery Method Room Air Weight: 58.8 kg Body Mass Index (BMI) 27.1 Intake and Output for Last 24 Hours 02/04/21 02/05/21 02/06/21 23:59 23:59 23:59 Intake Total 3744 / 3744 2904.59 / 2904.59 752.08 / 752.08 Output Total 200 / 200 350 / 400 250 / 250 Balance 3544 / 3544 2554.59 / 2504.59 502.08 / 502.08 General: Alert, Cooperative, No apparent distress Lungs: Clear to auscultation, Normal air movement Cardiovascular: Regular rate, Regular Rhythm Abdomen: Soft, Non Tender, Non-Distended Skin: Ulcer/ Wound Microbiology Past 72 Hours 02/04/21 10:45 Wound Abcess - Leg, Left Gram Stain - Final 02/04/21 10:45 Wound Abcess - Leg, Left Wound Culture - Preliminary Pseudomonas 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 02/04/21 00:50 Blood Culture (Wb) - Right Wrist Blood Culture - Preliminary No growth in 48 hours. Laboratory Results 02/05/21 14:15: Sodium 138, Potassium 4.0, Chloride 110 H, Carbon Dioxide 24.0, Anion Gap 4 L, BUN 7, Creatinine 0.44 L, Estim Creat Clear Calc 47.20, Est GFR (MDRD) Af Amer 182, Est GFR (MDRD) Non-Af 150, BUN/Creatinine Ratio 16.0, Glucose 97, Calcium 8.1 L, Total Bilirubin 0.30, AST 23, ALT 10 L, Alkaline Phosphatase 116, Total Protein 5.4 L, Albumin 1.6 L, Globulin 3.8, Albumin/Globulin Ratio 0.4 L 02/05/21 14:25: WBC 14.5 H, RBC 3.43 L, Hgb 9.7 L, Hct 30.8 L, MCV 89.8, MCH 28.3, MCHC 31.5 L, RDW Std Deviation 48.6 H, RDW Coeff of Naseem 14.6, Plt Count 319, MPV 8.3, Immature Gran % (Auto) 0.600, Neut % (Auto) 81.9 H, Lymph % (Auto) 10.1 L, [place] % (Auto) 6.0, Eos % (Auto) 1.1, Baso % (Auto) 0.3, Absolute Neuts (auto) 11.9 H, Absolute Lymphs (auto) 1.46, Nucleated RBC % 0 02/06/21 01:15: Vancomycin Trough 7.4 02/06/21 01:15: WBC 10.5, RBC 3.38 L, Hgb 9.6 L, Hct 30.2 L, MCV 89.3, MCH 28.4, MCHC 31.8 L, RDW Std Deviation 48.9 H, RDW Coeff of Naseem 14.7 H, Plt Count 330, MPV 8.6, Immature Gran % (Auto) 0.800, Neut % (Auto) 74.6 H, Lymph % (Auto) 12.8 L, [place] % (Auto) 6.7, Eos % (Auto) 4.5, Baso % (Auto) 0.6, Absolute Neuts (auto) 7.8 H, Absolute Lymphs (auto) 1.34, Nucleated RBC % 0 02/06/21 01:15: Sodium 142, Potassium 4.0, Chloride 112 H, Carbon Dioxide 28.0, Anion Gap 2 L, BUN 9, Creatinine 0.56, Estim Creat Clear Calc 47.20, Est GFR (MDRD) Af Amer 136, Est GFR (MDRD) Non-Af 112, BUN/Creatinine Ratio 16.0, Glucose 98, Calcium 7.8 L, Total Bilirubin 0.20, AST 22, ALT 11 L, Alkaline Phosphatase 119 H, Total Protein 4.9 L, Albumin 1.6 L, Globulin 3.3, Albumin/Globulin Ratio 0.5 L Current Medications Acetaminophen (Acetaminophen 325 Mg Tablet) 650 mg PO Q6H PRN PRN PRN Reason: Pain Score 1-10/Temp > 100.7 F Last Admin: 02/06/21 06:56 Dose: 650 mg Documented by: Aspirin (Aspirin E.C. 81 Mg Tablet) 81 mg PO QHS [facility] Last Admin: 02/05/21 22:11 Dose: 81 mg Documented by: Atorvastatin Calcium (Atorvastatin Calcium 20 Mg Tablet) 20 mg PO QHS [facility] Last Admin: 02/05/21 22:11 Dose: 20 mg Documented by: Calamine/Phenol (Menthol/Lanolin/Calamine/Znox 113 Gm Tube) 1 applic TOPICAL BID [facility]; Protocol Last Admin: 02/06/21 10:11 Dose: 1 applic Documented by: Cholecalciferol (Cholecalciferol (Vit D3) 25 Mcg Tablet (1,000 Units)) 25 mcg PO DAILY [facility] Last Admin: 02/06/21 10:10 Dose: 25 mcg Documented by: Collagenase (Collagenase 30gm Tube) 1 applic TOPICAL DAILY [facility]; Protocol Last Admin: 02/06/21 10:12 Dose: 1 applic Documented by: Doxepin HCl (Doxepin Hydrochloride 10 Mg Capsule) 10 mg PO QHS [facility] Last Admin: 02/05/21 22:12 Dose: 10 mg Documented by: Gabapentin (Gabapentin 100 Mg Capsule) 100 mg PO DAILY [facility] Last Admin: 02/06/21 10:10 Dose: 100 mg Documented by: Heparin Sodium (Porcine) (Heparin Injection (Vial) 5,000 Unit/Ml Vial) 5,000 unit SC Q12 [facility] Last Admin: 02/06/21 10:11 Dose: 5,000 unit Documented by: Vancomycin IV Pharmacy to Dose (1 each/ Sodium Chloride) 500 mls @ 250 mls/hr IV X1 PRN; Protocol PRN Reason: Rx to Dose Sodium Chloride () 250 mls @ 15 mls/hr IV .[id number] PRN PRN Reason: Saline Flush Sodium Chloride () 250 mls @ 15 mls/hr IV .[id number] PRN PRN Reason: Additional IVPB Infusion Cefepime HCl 2 gm/ Sodium (Chloride) 100 mls @ 200 mls/hr IV BID [facility] Last Admin: 02/06/21 10:07 Dose: 200 mls/hr Documented by: Vancomycin HCl 750 mg/ Sodium (Chloride) 265 mls @ 250 mls/hr IV Q12H [facility] Lactobacillus Acidophilus (Lactobacillus Acidophilus) 1 tablet PO BID [facility] Last Admin: 02/06/21 10:10 Dose: 1 tablet Documented by: Levothyroxine Sodium (Levothyroxine 137 Mcg Tablet) 137 mcg PO QHS [facility] Last Admin: 02/05/21 22:12 Dose: 137 mcg Documented by: Melatonin (Melatonin 3 Mg Tablet) 3 mg PO QHS PRN PRN PRN Reason: INSOMNIA Metoprolol Tartrate (Metoprolol Tartrate 100 Mg Tablet) 100 mg PO QHS [facility] Last Admin: 02/05/21 20:08 Dose: 100 mg Documented by: Morphine Sulfate (Morphine 2 Mg/Ml Syringe) 1 mg IV Q4H PRN PRN PRN Reason: Pain Score 6-10 Last Admin: 02/06/21 04:44 Dose: 1 mg Documented by: Nutritional Formula (Lactose Free) (Ensure Enlive 120 Ml Liquid) 120 ml PO 4X/DAY [facility] Last Admin: 02/05/21 22:53 Dose: Not Given Documented by: Ondansetron HCl (Ondansetron 4 Mg/2 Ml Vial) 4 mg IV Q8H PRN PRN PRN Reason: NAUSEA/VOMITING Oxycodone HCl (Oxycodone 5 Mg Tablet) 10 mg PO Q4H PRN PRN PRN Reason: Pain Score 6-10 Last Admin: 02/06/21 06:56 Dose: 10 mg Documented by: Pentoxifylline (Pentoxifylline 400 Mg Tablet) 400 mg PO DAILY [facility] Last Admin: 02/06/21 10:10 Dose: 400 mg Documented by: Senna/Docusate Sodium (Senna/Docusate Sodium 1 Tablet) 2 tablet PO BID PRN PRN PRN Reason: Constipation Sodium Chloride (0.9% Saline Lock 10 Ml Syringe) 10 - 40 ml IV UD PRN PRN Reason: SALINE FLUSH Vancomycin HCl (Vancomcyin 125 Mg/5 Ml Susp Po.Syringe) 125 mg PO Q6 [facility] Last Admin: 02/06/21 05:16 Dose: 125 mg Documented by: Medical Necessity - Tobacco Use Smoking Status: Former smoker Route of nutrition/ use of supplements: [] Nutritional Intake: [] IV Site: [] [place] Catheter: [] - Assessment/Plan Antibiotics: [] Assessment/Plan: [] Active and Suspected Problems (Last Reviewed 02/04/21 @ 01:[address] Rupesh Jennings MD) Hypokalemia (Acute) Cellulitis (Acute) Osteomyelitis of left fibula (Acute) Osteomyelitis (Acute) Sepsis (Acute) Hx of tubal ligation (Acute) Cellulitis of left leg (Acute) Colonization status (Acute) Ulcer of left lower extremity, limited to breakdown of skin (Acute) LLE infected ulcer and cellulitis - wound cx with PsA, GNR, gram pos so far. Cont vanc/cefepime. With chronic, recurrent osteo, plan is for amputation at this point recurrent cdiff - po vanc, improving Will follow, d/w Dr. Holley
[2021-02-06] MEDS: Metoprolol Tartrate 25 MG Tablet PO (12:12)
[2021-02-06] MEDS: 0.9% Saline Lock 10 ML Syringe IV ×3 (12:14→17:23)
--- NOTE | 2021-02-06 13:37 | NURSING ---
Pt had been pre-medicated with 1 mg IV morphine prior to dressing change. patient still extremely painful. pt states I just wanna . States I can't do this anymore. patient and daughter both tearful. Pt asking if there is a way she can just get the amputation done sooner. this nurse talked with Dr Holley about the request to see about transfer to another hospital for the amputation. Also let Dr Nova know. Dr Holley states she will talk with Dr Nova and they will see what they can do.
--- NOTE | 2021-02-06 14:12 | CASEMGMT ---
Social Work Note SW attempted to meet with pt to provide support. Pt sleeping when this worker entered the room. Pt states they gave me Oxy and Morphine and I am out of it. SW informed pt that this worker will check back in with pt. Stella Landaverde CONCRETE TECHNICIAN, CONSTRUCTION ANALYST
--- NOTE | 2021-02-06 15:45 | PN_ITS ---
Patient Problems: Active and Suspected Problems (Last Reviewed 02/04/21 @ 01:[address] Rupesh Jennings MD) Hypokalemia (Acute) Cellulitis (Acute) Osteomyelitis of left fibula (Acute) Osteomyelitis (Acute) Sepsis (Acute) Hx of tubal ligation (Acute) Cellulitis of left leg (Acute) Colonization status (Acute) Ulcer of left lower extremity, limited to breakdown of skin (Acute) Reason for Visit: Follow-up on left lower extremity infected ulcer/cellulitis/acute on chronic osteomyelitis Subjective: Patient was seen and examined. She complains of severe pain with change of dressing. She requested for transfer to another hospital for amputation sooner. The vascular surgeon is currently not available. Angioplasty is planned for next week. It was communicated to her that there was no guarantee she will get this procedure done early in another facility especially with the holiday weekend coming up. Patient's pain medications have been increased. Objective: Physical exam: General: Alert, Oriented x3, Cooperative HEENT: Atraumatic, PERRLA, EOMI, Normocephalic Neck: Supple, No JVD, Negative Carotid Bruits Lungs: Clear to auscultation, Normal air movement Cardiovascular: Regular rate, No murmurs Abdomen: Bowel Sounds Present, Soft, Non Tender Extremities: Edema - Left leg and left foot Skin: - -Dressing intact over left leg Musculoskeletal: No Tenderness to Palpation of Joints or Extremities Neurological: Cranial nerves II-XII grossly intact Psych/Mental Status: Normal Affect, Appropriate Vitals/I&O's: Vital Signs Temp Pulse Resp BP Pulse Ox 99.1 F 124 H 20 H 117/53 L 98 02/06/21 15:08 02/06/21 15:08 02/06/21 15:08 02/06/21 15:08 02/06/21 15:08 Oxygen Flow Rate (L/min) 1 Oxygen Delivery Method Room Air Weight: 58.8 kg Body Mass Index (BMI) 27.1 Intake and Output for Last 24 Hours 02/04/21 02/05/21 02/06/21 23:59 23:59 23:59 Intake Total 3744 / 3744 2904.59 / 2904.59 1631.25 / 1631.25 Output Total 200 / 200 350 / 400 250 / 250 Balance 3544 / 3544 2554.59 / 2504.59 1381.25 / 1381.25 Microbiology Past 72 Hours 02/04/21 10:45 Wound Abcess - Leg, Left Gram Stain - Final 02/04/21 10:45 Wound Abcess - Leg, Left Wound Culture - Preliminary Pseudomonas aeroginosa GNR lactose iron melter Gram positive organism 02/04/21 05:18 Blood Culture (Wb) - Left Hand Blood Culture - Preliminary No growth in 48 hours. 02/04/21 00:50 Blood Culture (Wb) - Right Wrist Blood Culture - Preliminary No growth in 48 hours. Laboratory Results 02/06/21 01:15: Vancomycin Trough 7.4 02/06/21 01:15: WBC 10.5, RBC 3.38 L, Hgb 9.6 L, Hct 30.2 L, MCV 89.3, MCH 28.4, MCHC 31.8 L, RDW Std Deviation 48.9 H, RDW Coeff of Naseem 14.7 H, Plt Count 330, MPV 8.6, Immature Gran % (Auto) 0.800, Neut % (Auto) 74.6 H, Lymph % (Auto) 12.8 L, [place] % (Auto) 6.7, Eos % (Auto) 4.5, Baso % (Auto) 0.6, Absolute Neuts (auto) 7.8 H, Absolute Lymphs (auto) 1.34, Nucleated RBC % 0 02/06/21 01:15: Sodium 142, Potassium 4.0, Chloride 112 H, Carbon Dioxide 28.0, Anion Gap 2 L, BUN 9, Creatinine 0.56, Estim Creat Clear Calc 47.20, Est GFR (MDRD) Af Amer 136, Est GFR (MDRD) Non-Af 112, BUN/Creatinine Ratio 16.0, Glucose 98, Calcium 7.8 L, Total Bilirubin 0.20, AST 22, ALT 11 L, Alkaline Phosphatase 119 H, Total Protein 4.9 L, Albumin 1.6 L, Globulin 3.3, Albumin/Globulin Ratio 0.5 L Current Medications Acetaminophen (Acetaminophen 325 Mg Tablet) 650 mg PO Q6H PRN PRN PRN Reason: Pain Score 1-10/Temp > 100.7 F Last Admin: 02/06/21 13:24 Dose: 650 mg Documented by: Aspirin (Aspirin E.C. 81 Mg Tablet) 81 mg PO QHS [facility] Last Admin: 02/05/21 22:11 Dose: 81 mg Documented by: Atorvastatin Calcium (Atorvastatin Calcium 20 Mg Tablet) 20 mg PO QHS [facility] Last Admin: 02/05/21 22:11 Dose: 20 mg Documented by: Calamine/Phenol (Menthol/Lanolin/Calamine/Znox 113 Gm Tube) 1 applic TOPICAL BID [facility]; Protocol Last Admin: 02/06/21 10:11 Dose: 1 applic Documented by: Cholecalciferol (Cholecalciferol (Vit D3) 25 Mcg Tablet (1,000 Units)) 25 mcg PO DAILY [facility] Last Admin: 02/06/21 10:10 Dose: 25 mcg Documented by: Collagenase (Collagenase 30gm Tube) 1 applic TOPICAL DAILY [facility]; Protocol Last Admin: 02/06/21 10:12 Dose: 1 applic Documented by: Doxepin HCl (Doxepin Hydrochloride 10 Mg Capsule) 10 mg PO QHS [facility] Last Admin: 02/05/21 22:12 Dose: 10 mg Documented by: Gabapentin (Gabapentin 100 Mg Capsule) 100 mg PO DAILY [facility] Last Admin: 02/06/21 10:10 Dose: 100 mg Documented by: Heparin Sodium (Porcine) (Heparin Injection (Vial) 5,000 Unit/Ml Vial) 5,000 unit SC Q12 [facility] Last Admin: 02/06/21 10:11 Dose: 5,000 unit Documented by: Vancomycin IV Pharmacy to Dose (1 each/ Sodium Chloride) 500 mls @ 250 mls/hr IV X1 PRN; Protocol PRN Reason: Rx to Dose Sodium Chloride () 250 mls @ 15 mls/hr IV .[id number] PRN PRN Reason: Saline Flush Sodium Chloride () 250 mls @ 15 mls/hr IV .[id number] PRN PRN Reason: Additional IVPB Infusion Cefepime HCl 2 gm/ Sodium (Chloride) 100 mls @ 200 mls/hr IV BID [facility] Last Infusion: 02/06/21 10:40 Dose: Infused Documented by: Vancomycin HCl 750 mg/ Sodium (Chloride) 265 mls @ 250 mls/hr IV Q12H [facility] Last Admin: 02/06/21 15:02 Dose: 250 mls/hr Documented by: Lactobacillus Acidophilus (Lactobacillus Acidophilus) 1 tablet PO BID [facility] Last Admin: 02/06/21 10:10 Dose: 1 tablet Documented by: Levothyroxine Sodium (Levothyroxine 137 Mcg Tablet) 137 mcg PO QHS [facility] Last Admin: 02/05/21 22:12 Dose: 137 mcg Documented by: Melatonin (Melatonin 3 Mg Tablet) 3 mg PO QHS PRN PRN PRN Reason: INSOMNIA Metoprolol Tartrate (Metoprolol Tartrate 100 Mg Tablet) 100 mg PO QHS [facility] Last Admin: 02/05/21 20:08 Dose: 100 mg Documented by: Morphine Sulfate (Morphine 2 Mg/Ml Syringe) 1 mg IV Q4H PRN PRN PRN Reason: Pain Score 6-10 Last Admin: 02/06/21 12:12 Dose: 1 mg Documented by: Nutritional Formula (Lactose Free) (Ensure Enlive 120 Ml Liquid) 120 ml PO 4X/DAY [facility] Last Admin: 02/06/21 15:02 Dose: 120 ml Documented by: Ondansetron HCl (Ondansetron 4 Mg/2 Ml Vial) 4 mg IV Q8H PRN PRN PRN Reason: NAUSEA/VOMITING Oxycodone HCl (Oxycodone 5 Mg Tablet) 10 mg PO Q4H PRN PRN PRN Reason: Pain Score 6-10 Last Admin: 02/06/21 13:24 Dose: 10 mg Documented by: Pentoxifylline (Pentoxifylline 400 Mg Tablet) 400 mg PO DAILY [facility] Last Admin: 02/06/21 10:10 Dose: 400 mg Documented by: Senna/Docusate Sodium (Senna/Docusate Sodium 1 Tablet) 2 tablet PO BID PRN PRN PRN Reason: Constipation Sodium Chloride (0.9% Saline Lock 10 Ml Syringe) 10 - 40 ml IV UD PRN PRN Reason: SALINE FLUSH Last Admin: 02/06/21 15:03 Dose: 10 ml Documented by: Vancomycin HCl (Vancomcyin 125 Mg/5 Ml Susp Po.Syringe) 125 mg PO Q6 [facility] Last Admin: 02/06/21 13:22 Dose: 125 mg Documented by: STROKE Vital Signs/Narrative: Vital Signs Temp Pulse Resp BP Pulse Ox 02/06/21 15:08 99.1 F 124 H 20 H 117/53 L 98 02/06/21 12:12 120 H Medical Necessity - Tobacco Use Smoking Status: Former smoker Assessment/Plan All Active Problems (Last Reviewed 02/04/21 @ 01:[address] Rupesh Jennings MD) Severe sepsis (Acute) Hypokalemia (Acute) Cellulitis (Acute) Osteomyelitis of left fibula (Acute) Osteomyelitis (Acute) Sepsis (Acute) Hx of tubal ligation (Acute) Cellulitis of left leg (Acute) Colonization status (Acute) C. difficile colitis (Resolved) Ulcer of left lower extremity, limited to breakdown of skin (Acute) 1. Severe sepsis secondary to acute on chronic left lower leg cellulitis/osteomyelitis, improving History of Pseudomonas and MSSA; follows with Dr. Cooper in the wound center Recent MRI of the lower extremity on 05/28/20 showed acute on chronic osteomyelitis of the distal fibula Blood and wound cultures are pending; continue on IV vancomycin and cefepime ID and podiatry consulted; left BKA recommended; orthopedic surgery consulted Will increase pain meds especially for dressing changes. 2. 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 Doppler ultrasound of the left lower leg was negative for acute DVT Continue on aspirin, statin, pentoxifylline 3. Hypokalemia, resolved, recheck in a.m. 4. 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 Hypertension, controlled, continue on metoprolol 6. Hyperlipidemia, continue on statin 7. Peripheral neuropathy, continue on gabapentin 8. DVT PPx- Heparin SC Inpatient E&M: 23894 [facility] Hosp L2
--- NOTE | 2021-02-06 15:49 | EKG12_ITS ---
Test Reason : Blood Pressure : / mmHG Vent. Rate : 118 BPM Atrial Rate : 118 BPM P-R Int : 138 ms QRS Dur : 060 ms QT Int : 302 ms P-R-T Axes : 078 043 060 degrees QTc Int : 423 ms Sinus tachycardia Low voltage QRS Borderline ECG When compared with ECG of 26-MAY-2020 23:13, No significant change was found Confirmed by OJ OLIVARES, KAVITHA ([id number]), online editor REMI SANDOVAL ([id number]) on 02/14/2021 3:03:14 PM Referred By: YOBANY Confirmed By:TIERNEY MCWILLIAMS MD
--- NOTE | 2021-02-06 16:37 | CON.PCM_ITS ---
Reason for Consult Date of Consultation: 02/06/21 Reason for Consultation: Left leg pain/chronic osteomyelitis. Requested by Dr. Holley History of Present Illness: The patient is a 70 year old F with a history of venous insufficiency and peripheral vascular disease presents today with left leg pain. Patient has severe left leg pain and a chronic wound. She is having increasing pain with her dressing changes. She has been admitted to the hospital multiple times. She did have vascular studies which showed biphasic flow released to the tibial arterial tree and December 2019. She is also been following with Dr. Nova the podiatry service and Dr. Morel the vascular service here at the hospital. She is supposed to have arteriogram with potential revascularization next Wednesday. I was consulted yesterday for potential consultation of amputation. Vascular studies could not be obtained secondary to the patient's pain. Patient reports 10 out of 10 pain. Her daughter is at the bedside. Patient gives very little history and did rest through most of the encounter. She has difficulty with weightbearing. Past Medical History Past Medical History (Chronic Problems): Chronic Problems (Last Reviewed 02/04/21 @ 01:[address] Rupesh Jennings MD) Localized edema (Chronic) Chronic pain (Chronic) Post-polio syndrome (Chronic) Hx of knee surgery (Chronic) History of hip surgery (Chronic) Pseudomonas aeruginosa colonization (Chronic) Ulcer of left lower extremity with fat layer exposed (Chronic) Delayed wound healing (Chronic) Venous insufficiency (Chronic) left Greater saphenous vein Other specified peripheral vascular diseases (Chronic) bilateral lower extremity Left leg pain (Chronic) Leg edema, left (Chronic) Diarrhea (Chronic) MVP (mitral valve prolapse) (Chronic) Thyroid disorder (Chronic) HTN (hypertension) (Chronic) HLD (hyperlipidemia) (Chronic) Former tobacco use (Chronic) Sinus tachycardia (Chronic) Medical History: Medical History (Last Reviewed 02/04/21 @ 01:[address] Rupesh Jennings MD) Pseudomonas aeruginosa colonization (Chronic) Z22.39 Ulcer of left lower extremity with fat layer exposed (Chronic) L97.922 Delayed wound healing (Chronic) T14.8XXD Venous insufficiency (Chronic) I87.2 left Greater saphenous vein Other specified peripheral vascular diseases (Chronic) I73.89 bilateral lower extremity Left leg pain (Chronic) M79.605 Cellulitis of left leg (Acute) L03.116 Leg edema, left (Chronic) R60.0 Colonization status (Acute) Z22.9 Diarrhea (Chronic) R19.7 Tachycardia (Inactive) R00.0 MVP (mitral valve prolapse) (Chronic) I34.1 C. difficile colitis (Resolved) A04.72 Thyroid disorder (Chronic) E07.9 Ulcer of left lower extremity, limited to breakdown of skin (Acute) L97.921 Colitis (Inactive) K52.9 HTN (hypertension) (Chronic) I10 HLD (hyperlipidemia) (Chronic) E78.5 Former tobacco use (Chronic) Z87.891 Sinus tachycardia (Chronic) R00.0 Allergies naproxen [From Naprosyn] Allergy (Verified 02/03/21 18:10) Rash Penicillins [PCN] Allergy (Verified 02/03/21 18:10) Rash amoxicillin Adverse Reaction (Verified 02/03/21 18:10) Rash cephalexin [From Keflex] Adverse Reaction (Verified 02/03/21 18:10) Rash clotrimazole [From Lotrimin] Adverse Reaction (Verified 02/03/21 18:10) Rash diphenhydramine [From Benadryl] Adverse Reaction (Verified 02/03/21 18:10) Rash griseofulvin Adverse Reaction (Verified 02/03/21 18:10) Rash ibuprofen [From Motrin] Adverse Reaction (Verified 02/03/21 18:10) Rash miconazole [From Monistat 1 Combo Pack] Adverse Reaction (Verified 02/03/21 18: 10) Rash propranolol [From Inderal LA] Adverse Reaction (Verified 02/03/21 18:10) Rash rofecoxib [From Vioxx] Adverse Reaction (Verified 02/03/21 18:10) Rash Sulfa (Sulfonamide Antibiotics) Adverse Reaction (Verified 02/03/21 18:10) Rash Home Medications: Ambulatory Orders Medication Instructions Recorded Aspirin E.C. [Ecotrin] 81 mg PO DAILY 11/28/19 Doxepin HCl [Sinequan] 10 mg PO QHS 11/28/19 Levothyroxine [Synthroid] 137 mcg PO QHS 11/28/19 Pentoxifylline [Trental] 400 mg PO QHS 11/28/19 Simvastatin [Zocor] 40 mg PO QHS 11/28/19 Lactobacillus Acidophilus 2 tab PO BID 03/26/20 [Acidophilus] Metoprolol Tartrate 50 mg PO DAILY 03/26/20 Metoprolol Tartrate [Lopressor 100 mg PO QHS 03/26/20 (beta stefany)] cholecalciferol (vitamin D3) 25 25 mcg PO DAILY 04/11/20 mcg (1,000 unit) capsule Acetaminophen [Tylenol Tablet] 650 mg PO Q6H PRN PRN tab 05/31/20 Gabapentin [Neurontin] 100 mg PO DAILY 02/03/21 traMADol [Ultram] 50 mg PO BID 02/03/21 Surgical History: Surgical History (Last Reviewed 02/04/21 @ 01:[address] Rupesh Jennings MD) Hx of knee surgery (Chronic) Z98.890 History of hip surgery (Chronic) Z98.890 Hx of tubal ligation (Acute) Z98.51 Surgical History: - - Bilateral lower extremity surgery for polio in her youth, bilateral tubal ligation. 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 Yefri Rubio MD) Daughter Asthma Sister COPD (chronic obstructive pulmonary disease) Father COPD (chronic obstructive pulmonary disease) Heart disease Mother COPD (chronic obstructive pulmonary disease) History Items: Heart Disease Paternal Family History: Family History (Last Reviewed 04/11/20 @ 14:[address] Yefri Rubio MD) Daughter Asthma Sister COPD (chronic obstructive pulmonary disease) Father COPD (chronic obstructive pulmonary disease) Heart disease Mother COPD (chronic obstructive pulmonary disease) History Items: Heart Disease Review of Systems Constitutional: Reports: Anorexia, Chills HEENT: Denies: Head Aches, Sinus Congestion, Sinus Drainage Cardiovascular: Denies: Chest Pain, Palpitations Respiratory: Reports: Cough Gastrointestinal: Denies: Abdominal Pain, Nausea, Vomiting Genitourinary: Denies: Dysuria Musculoskeletal: Reports: Leg Pain Skin: Reports: Wounds - Left leg Neurological: Denies: Numbness, Tingling, Focal weakness Psychiatric: Reports: Anxiety Patient Problems: Active and Suspected Problems (Last Reviewed 02/04/21 @ 01:[address] Rupesh Jennings MD) Hypokalemia (Acute) Cellulitis (Acute) Osteomyelitis of left fibula (Acute) Osteomyelitis (Acute) Sepsis (Acute) Hx of tubal ligation (Acute) Cellulitis of left leg (Acute) Colonization status (Acute) Ulcer of left lower extremity, limited to breakdown of skin (Acute) Objective: MRI and x-ray were reviewed showing a small nidus of infection in the distal third of the fibula. No gross abscess is appreciated. - Physical Exam Vitals/I&O's: Vital Signs Temp Pulse Resp BP Pulse Ox 99.1 F 124 H 20 H 117/53 L 98 02/06/21 15:08 02/06/21 15:08 02/06/21 15:08 02/06/21 15:08 02/06/21 15:08 Oxygen Flow Rate (L/min) 1 Oxygen Delivery Method Room Air Weight: 129 lb 10.109 oz Body Mass Index (BMI) 27.1 Intake and Output for Last 24 Hours 02/04/21 02/05/21 02/06/21 23:59 23:59 23:59 Intake Total 3744 / 3744 2904.59 / 2904.59 1631.25 / 1631.25 Output Total 200 / 200 350 / 400 250 / 250 Balance 3544 / 3544 2554.59 / 2504.59 1381.25 / 1381.25 General: Alert, Cooperative HEENT: Atraumatic Neck: No JVD Abdomen: Non-Distended Extremities: - - Left lower extremity: Pictures of today's dressing change were reviewed showing a erythematous extremity with ulceration over the lateral leg. Toes are pink with moderately quick cap refill. 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 02/04/21 00:50 Blood Culture (Wb) - Right Wrist Blood Culture - Preliminary No growth in 48 hours. Laboratory Results 02/06/21 01:15: Vancomycin Trough 7.4 02/06/21 01:15: WBC 10.5, RBC 3.38 L, Hgb 9.6 L, Hct 30.2 L, MCV 89.3, MCH 28.4, MCHC 31.8 L, RDW Std Deviation 48.9 H, RDW Coeff of Naseem 14.7 H, Plt Count 330, MPV 8.6, Immature Gran % (Auto) 0.800, Neut % (Auto) 74.6 H, Lymph % (Auto) 12.8 L, [place] % (Auto) 6.7, Eos % (Auto) 4.5, Baso % (Auto) 0.6, Absolute Neuts (auto) 7.8 H, Absolute Lymphs (auto) 1.34, Nucleated RBC % 0 02/06/21 01:15: Sodium 142, Potassium 4.0, Chloride 112 H, Carbon Dioxide 28.0, Anion Gap 2 L, BUN 9, Creatinine 0.56, Estim Creat Clear Calc 47.20, Est GFR (MDRD) Af Amer 136, Est GFR (MDRD) Non-Af 112, BUN/Creatinine Ratio 16.0, Glucose 98, Calcium 7.8 L, Total Bilirubin 0.20, AST 22, ALT 11 L, Alkaline Phosphatase 119 H, Total Protein 4.9 L, Albumin 1.6 L, Globulin 3.3, Albumin/Globulin Ratio 0.5 L Current Medications Acetaminophen (Acetaminophen 325 Mg Tablet) 650 mg PO Q6H PRN PRN PRN Reason: Pain Score 1-10/Temp > 100.7 F Last Admin: 02/06/21 13:24 Dose: 650 mg Documented by: Aspirin (Aspirin E.C. 81 Mg Tablet) 81 mg PO QHS [facility] Last Admin: 02/05/21 22:11 Dose: 81 mg Documented by: Atorvastatin Calcium (Atorvastatin Calcium 20 Mg Tablet) 20 mg PO QHS [facility] Last Admin: 02/05/21 22:11 Dose: 20 mg Documented by: Calamine/Phenol (Menthol/Lanolin/Calamine/Znox 113 Gm Tube) 1 applic TOPICAL BID NEIL; Protocol Last Admin: 02/06/21 10:11 Dose: 1 applic Documented by: Cholecalciferol (Cholecalciferol (Vit D3) 25 Mcg Tablet (1,000 Units)) 25 mcg PO DAILY [facility] Last Admin: 02/06/21 10:10 Dose: 25 mcg Documented by: Collagenase (Collagenase 30gm Tube) 1 applic TOPICAL DAILY [facility]; Protocol Last Admin: 02/06/21 10:12 Dose: 1 applic Documented by: Doxepin HCl (Doxepin Hydrochloride 10 Mg Capsule) 10 mg PO QHS [facility] Last Admin: 02/05/21 22:12 Dose: 10 mg Documented by: Gabapentin (Gabapentin 100 Mg Capsule) 100 mg PO DAILY [facility] Last Admin: 02/06/21 10:10 Dose: 100 mg Documented by: Heparin Sodium (Porcine) (Heparin Injection (Vial) 5,000 Unit/Ml Vial) 5,000 unit SC Q12 [facility] Last Admin: 02/06/21 10:11 Dose: 5,000 unit Documented by: Hydromorphone HCl (Hydromorphone 0.5 Mg/0.5 Ml Syringe) 0.5 mg IV X1 ONE Stop: 02/06/21 16:46 Vancomycin IV Pharmacy to Dose (1 each/ Sodium Chloride) 500 mls @ 250 mls/hr IV X1 PRN; Protocol PRN Reason: Rx to Dose Sodium Chloride () 250 mls @ 15 mls/hr IV .[id number] PRN PRN Reason: Saline Flush Sodium Chloride () 250 mls @ 15 mls/hr IV .[id number] PRN PRN Reason: Additional IVPB Infusion Cefepime HCl 2 gm/ Sodium (Chloride) 100 mls @ 200 mls/hr IV BID [facility] Last Infusion: 02/06/21 10:40 Dose: Infused Documented by: Vancomycin HCl 750 mg/ Sodium (Chloride) 265 mls @ 250 mls/hr IV Q12H [facility] Last Admin: 02/06/21 15:02 Dose: 250 mls/hr Documented by: Lactobacillus Acidophilus (Lactobacillus Acidophilus) 1 tablet PO BID [facility] Last Admin: 02/06/21 10:10 Dose: 1 tablet Documented by: Levothyroxine Sodium (Levothyroxine 137 Mcg Tablet) 137 mcg PO QHS [facility] Last Admin: 02/05/21 22:12 Dose: 137 mcg Documented by: Melatonin (Melatonin 3 Mg Tablet) 3 mg PO QHS PRN PRN PRN Reason: INSOMNIA Metoprolol Tartrate (Metoprolol Tartrate 100 Mg Tablet) 100 mg PO QHS [facility] Last Admin: 02/05/21 20:08 Dose: 100 mg Documented by: Morphine Sulfate (Morphine 4 Mg/Ml Syringe) 4 mg IV Q4H PRN PRN PRN Reason: Pain Score 6-10 Nutritional Formula (Lactose Free) (Ensure Enlive 120 Ml Liquid) 120 ml PO 4X/DAY [facility] Last Admin: 02/06/21 15:02 Dose: 120 ml Documented by: Ondansetron HCl (Ondansetron 4 Mg/2 Ml Vial) 4 mg IV Q8H PRN PRN PRN Reason: NAUSEA/VOMITING Oxycodone HCl (Oxycodone 5 Mg Tablet) 10 mg PO Q4H PRN PRN PRN Reason: Pain Score 6-10 Last Admin: 02/06/21 13:24 Dose: 10 mg Documented by: Pentoxifylline (Pentoxifylline 400 Mg Tablet) 400 mg PO DAILY [facility] Last Admin: 02/06/21 10:10 Dose: 400 mg Documented by: Senna/Docusate Sodium (Senna/Docusate Sodium 1 Tablet) 2 tablet PO BID PRN PRN PRN Reason: Constipation Sodium Chloride (0.9% Saline Lock 10 Ml Syringe) 10 - 40 ml IV UD PRN PRN Reason: SALINE FLUSH Last Admin: 02/06/21 15:03 Dose: 10 ml Documented by: Vancomycin HCl (Vancomcyin 125 Mg/5 Ml Susp Po.Syringe) 125 mg PO Q6 [facility] Last Admin: 02/06/21 13:22 Dose: 125 mg Documented by: Assessment/Plan All Active Problems (Last Reviewed 02/04/21 @ 01:[address] Rupesh Jennings MD) Severe sepsis (Acute) Hypokalemia (Acute) Cellulitis (Acute) Osteomyelitis of left fibula (Acute) Osteomyelitis (Acute) Sepsis (Acute) Hx of tubal ligation (Acute) Cellulitis of left leg (Acute) Colonization status (Acute) C. difficile colitis (Resolved) Ulcer of left lower extremity, limited to breakdown of skin (Acute) Left fibula acute on chronic osteomyelitis. Cultures were reviewed. Patient has had history of multiple different types of infections. Current infections are staph aureus, gram-negative rods and Pseudomonas. All of which currently are relatively sensitive to antibiotics. However patient has a history of C. difficile and develops that during each course of antibiotics. This makes long course of antibiotics difficult. What is unknown at this time is her vascularity. I did discuss with the family that the extent of the infection is not overly severe however she has had a chronic nonhealing ulcer which may be the bigger concern. She is currently not septic. We discussed potential effects of revascularization could help with appropriate concentration of the antibiotics and to fight the infection. We also discussed that this may be unsuccessful and patient could require amputation. I explained that in order to appropriately plan for an amputation vascular studies need to be performed. We discussed that below-knee amputation offers improved performance in recovery for the patient versus above-knee amputation. However, if patient does not have appropriate vascularization below-knee amputation could require return to surgery for above-knee amputation. Based on our discussion today I did recommend for the family that they remain with her current treatment plan of attempting the angiogram with Dr. Morel next week to help determine appropriateness of wound healing and amputation moving forward. I would request that Dr. Morel's intraoperative findings be forwarded to my office. I will follow up with the patient on an outpatient basis. The plan at this time is to obtain a plan that controls her pain and allows for IV antibiotics at home until she can get her studies which are planned for [place] next week. [facility] Office:
--- NOTE | 2021-02-06 17:03 | PCM.PROGNOTE ---
Patient Problems: Active and Suspected Problems (Last Reviewed 02/04/21 @ 01:[address] Rupesh Jennings MD) Hypokalemia (Acute) Cellulitis (Acute) Osteomyelitis of left fibula (Acute) Osteomyelitis (Acute) Sepsis (Acute) Hx of tubal ligation (Acute) Cellulitis of left leg (Acute) Colonization status (Acute) Ulcer of left lower extremity, limited to breakdown of skin (Acute) Subjective: Patient was seen today for follow up. She has a lot of pain to the right leg. Her daughter is at bedside. She is afebrile, WBC now normal. - Physical Exam Vitals/I&O's: Vital Signs Temp Pulse Resp BP Pulse Ox 99.1 F 124 H 20 H 117/53 L 98 02/06/21 15:08 02/06/21 15:08 02/06/21 15:08 02/06/21 15:08 02/06/21 15:08 Oxygen Flow Rate (L/min) 1 Oxygen Delivery Method Room Air Weight: 58.8 kg Body Mass Index (BMI) 27.1 Intake and Output for Last 24 Hours 02/04/21 02/05/21 02/06/21 23:59 23:59 23:59 Intake Total 3744 / 3744 2904.59 / 2904.59 1631.25 / 1631.25 Output Total 200 / 200 350 / 400 250 / 250 Balance 3544 / 3544 2554.59 / 2504.59 1381.25 / 1381.25 General: Alert, Oriented x3, Cooperative Extremities: - - Dressing clean, dry and intact to the left foot/maxi/leg. patient complaining of pain to the left leg. 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 02/04/21 00:50 Blood Culture (Wb) - Right Wrist Blood Culture - Preliminary No growth in 48 hours. Laboratory Results 02/06/21 01:15: Vancomycin Trough 7.4 02/06/21 01:15: WBC 10.5, RBC 3.38 L, Hgb 9.6 L, Hct 30.2 L, MCV 89.3, MCH 28.4, MCHC 31.8 L, RDW Std Deviation 48.9 H, RDW Coeff of Naseem 14.7 H, Plt Count 330, MPV 8.6, Immature Gran % (Auto) 0.800, Neut % (Auto) 74.6 H, Lymph % (Auto) 12.8 L, [place] % (Auto) 6.7, Eos % (Auto) 4.5, Baso % (Auto) 0.6, Absolute Neuts (auto) 7.8 H, Absolute Lymphs (auto) 1.34, Nucleated RBC % 0 02/06/21 01:15: Sodium 142, Potassium 4.0, Chloride 112 H, Carbon Dioxide 28.0, Anion Gap 2 L, BUN 9, Creatinine 0.56, Estim Creat Clear Calc 47.20, Est GFR (MDRD) Af Amer 136, Est GFR (MDRD) Non-Af 112, BUN/Creatinine Ratio 16.0, Glucose 98, Calcium 7.8 L, Total Bilirubin 0.20, AST 22, ALT 11 L, Alkaline Phosphatase 119 H, Total Protein 4.9 L, Albumin 1.6 L, Globulin 3.3, Albumin/Globulin Ratio 0.5 L Current Medications Acetaminophen (Acetaminophen 325 Mg Tablet) 650 mg PO Q6H PRN PRN PRN Reason: Pain Score 1-10/Temp > 100.7 F Last Admin: 02/06/21 13:24 Dose: 650 mg Documented by: Aspirin (Aspirin E.C. 81 Mg Tablet) 81 mg PO QHS [facility] Last Admin: 02/05/21 22:11 Dose: 81 mg Documented by: Atorvastatin Calcium (Atorvastatin Calcium 20 Mg Tablet) 20 mg PO QHS [facility] Last Admin: 02/05/21 22:11 Dose: 20 mg Documented by: Calamine/Phenol (Menthol/Lanolin/Calamine/Znox 113 Gm Tube) 1 applic TOPICAL BID NEIL; Protocol Last Admin: 02/06/21 10:11 Dose: 1 applic Documented by: Cholecalciferol (Cholecalciferol (Vit D3) 25 Mcg Tablet (1,000 Units)) 25 mcg PO DAILY [facility] Last Admin: 02/06/21 10:10 Dose: 25 mcg Documented by: Collagenase (Collagenase 30gm Tube) 1 applic TOPICAL DAILY [facility]; Protocol Last Admin: 02/06/21 10:12 Dose: 1 applic Documented by: Doxepin HCl (Doxepin Hydrochloride 10 Mg Capsule) 10 mg PO QHS [facility] Last Admin: 02/05/21 22:12 Dose: 10 mg Documented by: Gabapentin (Gabapentin 100 Mg Capsule) 100 mg PO DAILY [facility] Last Admin: 02/06/21 10:10 Dose: 100 mg Documented by: Heparin Sodium (Porcine) (Heparin Injection (Vial) 5,000 Unit/Ml Vial) 5,000 unit SC Q12 [facility] Last Admin: 02/06/21 10:11 Dose: 5,000 unit Documented by: Vancomycin IV Pharmacy to Dose (1 each/ Sodium Chloride) 500 mls @ 250 mls/hr IV X1 PRN; Protocol PRN Reason: Rx to Dose Sodium Chloride () 250 mls @ 15 mls/hr IV .[id number] PRN PRN Reason: Saline Flush Sodium Chloride () 250 mls @ 15 mls/hr IV .[id number] PRN PRN Reason: Additional IVPB Infusion Cefepime HCl 2 gm/ Sodium (Chloride) 100 mls @ 200 mls/hr IV BID [facility] Last Infusion: 02/06/21 10:40 Dose: Infused Documented by: Vancomycin HCl 750 mg/ Sodium (Chloride) 265 mls @ 250 mls/hr IV Q12H [facility] Last Admin: 02/06/21 15:02 Dose: 250 mls/hr Documented by: Lactobacillus Acidophilus (Lactobacillus Acidophilus) 1 tablet PO BID [facility] Last Admin: 02/06/21 10:10 Dose: 1 tablet Documented by: Levothyroxine Sodium (Levothyroxine 137 Mcg Tablet) 137 mcg PO QHS [facility] Last Admin: 02/05/21 22:12 Dose: 137 mcg Documented by: Melatonin (Melatonin 3 Mg Tablet) 3 mg PO QHS PRN PRN PRN Reason: INSOMNIA Metoprolol Tartrate (Metoprolol Tartrate 100 Mg Tablet) 100 mg PO QHS [facility] Last Admin: 02/05/21 20:08 Dose: 100 mg Documented by: Morphine Sulfate (Morphine 4 Mg/Ml Syringe) 4 mg IV Q4H PRN PRN PRN Reason: Pain Score 6-10 Nutritional Formula (Lactose Free) (Ensure Enlive 120 Ml Liquid) 120 ml PO 4X/DAY [facility] Last Admin: 02/06/21 15:02 Dose: 120 ml Documented by: Ondansetron HCl (Ondansetron 4 Mg/2 Ml Vial) 4 mg IV Q8H PRN PRN PRN Reason: NAUSEA/VOMITING Oxycodone HCl (Oxycodone 5 Mg Tablet) 10 mg PO Q4H PRN PRN PRN Reason: Pain Score 6-10 Last Admin: 02/06/21 13:24 Dose: 10 mg Documented by: Pentoxifylline (Pentoxifylline 400 Mg Tablet) 400 mg PO DAILY [facility] Last Admin: 02/06/21 10:10 Dose: 400 mg Documented by: Senna/Docusate Sodium (Senna/Docusate Sodium 1 Tablet) 2 tablet PO BID PRN PRN PRN Reason: Constipation Sodium Chloride (0.9% Saline Lock 10 Ml Syringe) 10 - 40 ml IV UD PRN PRN Reason: SALINE FLUSH Last Admin: 02/06/21 15:03 Dose: 10 ml Documented by: Vancomycin HCl (Vancomcyin 125 Mg/5 Ml Susp Po.Syringe) 125 mg PO Q6 [facility] Last Admin: 02/06/21 13:22 Dose: 125 mg Documented by: Medical Necessity - Tobacco Use Smoking Status: Former smoker Assessment/Plan All Active Problems (Last Reviewed 02/04/21 @ 01:[address] Rupesh Jennings MD) Severe sepsis (Acute) Hypokalemia (Acute) Cellulitis (Acute) Osteomyelitis of left fibula (Acute) Osteomyelitis (Acute) Sepsis (Acute) Hx of tubal ligation (Acute) Cellulitis of left leg (Acute) Colonization status (Acute) C. difficile colitis (Resolved) Ulcer of left lower extremity, limited to breakdown of skin (Acute) Left leg ulceration down to subcutaneous ulcer - chronic Cellulitis left lower extremity Osteomyelitis left fibula - chronic Peripheral vascular disease lower extremity - chronic Diarrhea w/ c. diff Multiple comorbidities Left leg ulceration is chronic, cellulitis, left fibula with continued evidence of osteomyelitis on xray, reviewed MRI and continued osteomyelitis noted. ID service/ Dr. De La Cruz consulted. Culture has been obtained and is pending - blood cultures with no growth, wound cultures reviewed. Patient is now asking for amputation. We have discussed concern that this will not heal and concern for continued recurrent infections with hx of extensive wound care. Patient is scheduled for angiogram with possible aorta and illiac intervention next Wednesday. I believe this would potential help an amputation heal but very guarded at attempts of further limb salvage due to chronic osteomyelitis, venous disease, hx of c diff, and severe pain; this was discussed with patient and her daughter who is at bedside. Continue local wound care daily dressing changes. Keep ulcer offloaded, keep elevated. Podiatry will continue to follow.
[2021-02-06] MEDS: HYDROmorphone 0.5 MG/0.5 ML SYRINGE IV (17:19)
[2021-02-06] MEDS: Atorvastatin Calcium 20 MG Tablet PO (22:57)
[2021-02-06] MEDS: Aspirin E.C. 81 MG Tablet PO (22:57)
[2021-02-06] MEDS: Levothyroxine 137 MCG Tablet PO (22:57)
[2021-02-06] MEDS: Doxepin Hydrochloride 10 MG Capsule PO (23:25)
[2021-02-06] MEDS: Metoprolol Tartrate 100 MG Tablet PO (23:25)
[2021-02-07] VITALS (13 sets, daily range): BP systolic 123–139; BP diastolic 54–64; PULSE 12–132; RESP 16–24; TEMP 36.7–37.2; O2SAT 93–97
[2021-02-07] MEDS: oxyCODONE 5 MG Tablet 10 MG PO ×2 (03:19→17:45)
[2021-02-07] MEDS: 0.9% Saline Lock 10 ML Syringe IV ×4 (03:23→23:51)
[2021-02-07 04:50] LABS: Absolute Lymphocyte Count 1.72 X10^3/uL (0.83-4.51); Basophil# 0.07 X10^3/uL; Basophil% 0.7 % (0-1); Eosinophil# 0.68 X10^3/uL; Eosinophils% 6.6 % (0-5); Hematocrit 29.7 % (37-47); Lymphocyte # 1.72 X10^3/ul (4.0); Lymphocyte % 16.6 % (19-41); Mean Corp Hgb Conc 30.3 g/dL (32-36); Mean Corpuscular Volume 92.5 fL (81-99); Mean Platelet Vol. 8.4 fl (6.2-12.0); Monocyte# 0.74 X10^3/uL; Monocyte% 7.1 % (0-10); NRBC Flagged by Analyzer 0 % (0-5); Neutrophil # 7.04 X10^3/uL (2.7-7.7); Neutrophil % 67.9 % (47-70); Platelet Count 346 K/mm3 (150-450); RBC Distribution Width CV 14.8 % (11.6-14.6); RBC Distribution Width SD 50.4 fl (35.1-43.9); Red Blood Count 3.21 M/mm3 (4.2-5.4); White Blood Count 10.4 K/mm3 (4.4-11.0)
[2021-02-07 05:07] LABS: ALB/GLOB Ratio 0.4 RATIO (0.9-2.4); AST(SGOT) 24 U/L (15-37); Alanine Aminotransfer ALT/SGPT 9 U/L (13-56); Albumin, Serum 1.4 g/dL (3.2-5.0); Alkaline Phosphatase 119 U/L (45-117); Anion Gap 4 (5-15); BUN 12 mg/dL (7-18); BUN/Creat Ratio 25.4 RATIO (10-20); Calcium,Total 7.9 mg/dL (8.5-10.1); Chloride 112 mmol/L (98-107); Creatinine, Serum 0.47 mg/dL (0.55-1.02); EST Glomerular Filtration Rate 137 mL/min (>60); Est Glom Filt Rate - Afr Amer 166 mL/min (>60); Globulin 3.6 g/dL (2.2-4.2); Glucose 84 mg/dL (74-106); Potassium 3.6 mmol/L (3.5-5.1); Sodium Level 141 mmol/L (136-145)
--- NOTE | 2021-02-07 07:56 | PCM.PN.HOSP ---
Patient Problems: Active and Suspected Problems (Last Reviewed 02/04/21 @ 01:[address] Rupesh Jennings MD) Hypokalemia (Acute) Cellulitis (Acute) Osteomyelitis of left fibula (Acute) Osteomyelitis (Acute) Sepsis (Acute) Hx of tubal ligation (Acute) Cellulitis of left leg (Acute) Colonization status (Acute) Ulcer of left lower extremity, limited to breakdown of skin (Acute) Reason for Visit: Follow-up on left lower extremity infected ulcer/cellulitis/acute on chronic osteomyelitis Subjective: Patient was seen and examined. She complains of pain being a little better but still stated that it was 10 out of 10. Complains of pain in her mouth. Arteriograms and possible angioplasty planned for 02/11/21 by vascular surgery Objective: Physical exam: General: Alert, Oriented x3, Cooperative HEENT: Atraumatic, PERRLA, EOMI, Normocephalic Neck: Supple, No JVD, Negative Carotid Bruits Lungs: Clear to auscultation, Normal air movement Cardiovascular: Regular rate, No murmurs Abdomen: Bowel Sounds Present, Soft, Non Tender Extremities: Edema - Left leg and left foot Skin: - -Dressing intact over left leg Musculoskeletal: No Tenderness to Palpation of Joints or Extremities Neurological: Cranial nerves II-XII grossly intact Psych/Mental Status: Normal Affect, Appropriate Vitals/I&O's: Vital Signs Temp Pulse Resp BP Pulse Ox 98.0 F 109 H 20 H 128/64 H 95 02/07/21 02:57 02/07/21 02:57 02/07/21 02:57 02/07/21 02:57 02/07/21 02:57 Oxygen Flow Rate (L/min) 1 Oxygen Delivery Method Room Air Weight: 58.8 kg Body Mass Index (BMI) 27.1 Intake and Output for Last 24 Hours 02/05/21 02/06/21 02/07/21 23:59 23:59 23:59 Intake Total 2904.59 / 2904.59 2146.25 / 2246.25 200 / 200 Output Total 350 / 400 251 / 451 200 / 200 Balance 2554.59 / 2504.59 1895.25 / 1795.25 0 / 0 Microbiology Past 72 Hours 02/04/21 10:45 Wound Abcess - Leg, Left Gram Stain - Final 02/04/21 10:45 Wound Abcess - Leg, Left Wound Culture - Preliminary Pseudomonas aeroginosa 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 02/04/21 00:50 Blood Culture (Wb) - Right Wrist Blood Culture - Preliminary No growth in 48 hours. Laboratory Results 02/07/21 04:35: WBC 10.4, RBC 3.21 L, Hgb 9.0 L, Hct 29.7 L, MCV 92.5, MCH 28.0, MCHC 30.3 L, RDW Std Deviation 50.4 H, RDW Coeff of Naseem 14.8 H, Plt Count 346, MPV 8.4, Immature Gran % (Auto) 1.100 H, Neut % (Auto) 67.9, Lymph % (Auto) 16.6 L, [place] % (Auto) 7.1, Eos % (Auto) 6.6 H, Baso % (Auto) 0.7, Absolute Neuts (auto) 7.0, Absolute Lymphs (auto) 1.72, Nucleated RBC % 0 02/07/21 04:35: Sodium 141, Potassium 3.6, Chloride 112 H, Carbon Dioxide 25.0, Anion Gap 4 L, BUN 12, Creatinine 0.47 L, Estim Creat Clear Calc 47.20, Est GFR (MDRD) Af Amer 166, Est GFR (MDRD) Non-Af 137, BUN/Creatinine Ratio 25.4 H, Glucose 84, Calcium 7.9 L, Total Bilirubin 0.30, AST 24, ALT 9 L, Alkaline Phosphatase 119 H, Total Protein 5.0 L, Albumin 1.4 L, Globulin 3.6, Albumin/Globulin Ratio 0.4 L Current Medications Acetaminophen (Acetaminophen 325 Mg Tablet) 650 mg PO Q6H PRN PRN PRN Reason: Pain Score 1-10/Temp > 100.7 F Last Admin: 02/06/21 23:14 Dose: 650 mg Documented by: Aspirin (Aspirin E.C. 81 Mg Tablet) 81 mg PO QHS [facility] Last Admin: 02/06/21 22:57 Dose: 81 mg Documented by: Atorvastatin Calcium (Atorvastatin Calcium 20 Mg Tablet) 20 mg PO QHS [facility] Last Admin: 02/06/21 22:57 Dose: 20 mg Documented by: Calamine/Phenol (Menthol/Lanolin/Calamine/Znox 113 Gm Tube) 1 applic TOPICAL BID [facility]; Protocol Last Admin: 02/06/21 22:59 Dose: 1 applic Documented by: Cholecalciferol (Cholecalciferol (Vit D3) 25 Mcg Tablet (1,000 Units)) 25 mcg PO DAILY [facility] Last Admin: 02/06/21 10:10 Dose: 25 mcg Documented by: Collagenase (Collagenase 30gm Tube) 1 applic TOPICAL DAILY [facility]; Protocol Last Admin: 02/06/21 10:12 Dose: 1 applic Documented by: Doxepin HCl (Doxepin Hydrochloride 10 Mg Capsule) 10 mg PO QHS [facility] Last Admin: 02/06/21 23:25 Dose: 10 mg Documented by: Gabapentin (Gabapentin 100 Mg Capsule) 100 mg PO DAILY [facility] Last Admin: 02/06/21 10:10 Dose: 100 mg Documented by: Heparin Sodium (Porcine) (Heparin Injection (Vial) 5,000 Unit/Ml Vial) 5,000 unit SC Q12 [facility] Last Admin: 02/06/21 22:58 Dose: 5,000 unit Documented by: Vancomycin IV Pharmacy to Dose (1 each/ Sodium Chloride) 500 mls @ 250 mls/hr IV X1 PRN; Protocol PRN Reason: Rx to Dose Sodium Chloride () 250 mls @ 15 mls/hr IV .[id number] PRN PRN Reason: Saline Flush Sodium Chloride () 250 mls @ 15 mls/hr IV .[id number] PRN PRN Reason: Additional IVPB Infusion Cefepime HCl 2 gm/ Sodium (Chloride) 100 mls @ 200 mls/hr IV BID [facility] Last Infusion: 02/06/21 23:30 Dose: Infused Documented by: Vancomycin HCl 750 mg/ Sodium (Chloride) 265 mls @ 250 mls/hr IV Q12H [facility] Last Admin: 02/07/21 03:19 Dose: 250 mls/hr Documented by: Lactobacillus Acidophilus (Lactobacillus Acidophilus) 1 tablet PO BID [facility] Last Admin: 02/06/21 22:57 Dose: 1 tablet Documented by: Levothyroxine Sodium (Levothyroxine 137 Mcg Tablet) 137 mcg PO QHS [facility] Last Admin: 02/06/21 22:57 Dose: 137 mcg Documented by: Melatonin (Melatonin 3 Mg Tablet) 3 mg PO QHS PRN PRN PRN Reason: INSOMNIA Metoprolol Tartrate (Metoprolol Tartrate 100 Mg Tablet) 100 mg PO QHS [facility] Last Admin: 02/06/21 23:25 Dose: 100 mg Documented by: Morphine Sulfate (Morphine 4 Mg/Ml Syringe) 4 mg IV Q4H PRN PRN PRN Reason: Pain Score 6-10 Nutritional Formula (Lactose Free) (Ensure Enlive 120 Ml Liquid) 120 ml PO 4X/DAY [facility] Last Admin: 02/06/21 23:10 Dose: 120 ml Documented by: Ondansetron HCl (Ondansetron 4 Mg/2 Ml Vial) 4 mg IV Q8H PRN PRN PRN Reason: NAUSEA/VOMITING Oxycodone HCl (Oxycodone 5 Mg Tablet) 10 mg PO Q4H PRN PRN PRN Reason: Pain Score 6-10 Last Admin: 02/07/21 03:19 Dose: 10 mg Documented by: Pentoxifylline (Pentoxifylline 400 Mg Tablet) 400 mg PO DAILY [facility] Last Admin: 02/06/21 10:10 Dose: 400 mg Documented by: Senna/Docusate Sodium (Senna/Docusate Sodium 1 Tablet) 2 tablet PO BID PRN PRN PRN Reason: Constipation Sodium Chloride (0.9% Saline Lock 10 Ml Syringe) 10 - 40 ml IV UD PRN PRN Reason: SALINE FLUSH Last Admin: 02/07/21 03:23 Dose: 10 ml Documented by: Vancomycin HCl (Vancomcyin 125 Mg/5 Ml Susp Po.Syringe) 125 mg PO Q6 [facility] Last Admin: 02/07/21 06:52 Dose: 125 mg Documented by: Medical Necessity - Tobacco Use Smoking Status: Former smoker Assessment/Plan All Active Problems (Last Reviewed 02/04/21 @ 01:[address] Rupesh Jennings MD) Severe sepsis (Acute) Hypokalemia (Acute) Cellulitis (Acute) Osteomyelitis of left fibula (Acute) Osteomyelitis (Acute) Sepsis (Acute) Hx of tubal ligation (Acute) Cellulitis of left leg (Acute) Colonization status (Acute) C. difficile colitis (Resolved) Ulcer of left lower extremity, limited to breakdown of skin (Acute) 1. Severe sepsis secondary to acute on chronic left lower leg cellulitis/osteomyelitis, improving History of Pseudomonas and MSSA; follows with Dr. Cooper in the wound center Recent MRI of the lower extremity on 05/28/20 showed acute on chronic osteomyelitis of the distal fibula Blood and wound cultures are pending; continue on IV cefepime; off IV vancomycin. ID and podiatry consulted; left BKA recommended; orthopedic surgery consulted On pain meds especially for dressing changes. Midline planned 2. 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 Doppler ultrasound of the left lower leg was negative for acute DVT Continue on aspirin, statin, pentoxifylline 3. Hypokalemia, resolved 4. 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 Hypertension, controlled, continue on metoprolol 6. Hyperlipidemia, continue on statin 7. Peripheral neuropathy, continue on gabapentin 8. DVT PPx- Heparin SC 9. Disposition: Discharge to SNF on Wednesday Inpatient E&M: [id number] Subs Hosp L2
--- NOTE | 2021-02-07 08:45 | PCM.PROGNOTE ---
Patient Problems: Active and Suspected Problems (Last Reviewed 02/04/21 @ 01:[address] Rupesh Jennings MD) Hypokalemia (Acute) Cellulitis (Acute) Osteomyelitis of left fibula (Acute) Osteomyelitis (Acute) Sepsis (Acute) Hx of tubal ligation (Acute) Cellulitis of left leg (Acute) Colonization status (Acute) Ulcer of left lower extremity, limited to breakdown of skin (Acute) Subjective: Patient was seen this morning for follow up on left left. She is resting in bed. WBC normal, patient afebrile. Chronic pain to left leg. She relates to dry mouth. She relates she has lost track of what day it is. - Physical Exam Vitals/I&O's: Vital Signs Temp Pulse Resp BP Pulse Ox 98.0 F 109 H 20 H 128/64 H 95 02/07/21 02:57 02/07/21 02:57 02/07/21 02:57 02/07/21 02:57 02/07/21 08:34 Oxygen Flow Rate (L/min) 1 Oxygen Delivery Method Room Air Weight: 58.8 kg Body Mass Index (BMI) 27.1 Intake and Output for Last 24 Hours 02/05/21 02/06/21 02/07/21 23:59 23:59 23:59 Intake Total 2904.59 / 2904.59 2146.25 / 2246.25 200 / 200 Output Total 350 / 400 251 / 451 200 / 200 Balance 2554.59 / 2504.59 1895.25 / 1795.25 0 / 0 General: Alert, No apparent distress Extremities: - - Dressing left foot/ankle/leg clean dry and intact. Microbiology Past 72 Hours 02/04/21 10:45 Wound Abcess - Leg, Left Gram Stain - Final 02/04/21 10:45 Wound Abcess - Leg, Left Wound Culture - Final Pseudomonas aeroginosa Citrobacter freundii Staphylococcus aureus 02/04/21 05:18 Blood Culture (Wb) - Left Hand Blood Culture - Preliminary No growth in 48 hours. 02/04/21 00:50 Blood Culture (Wb) - Right Wrist Blood Culture - Preliminary No growth in 48 hours. Laboratory Results 02/07/21 04:35: WBC 10.4, RBC 3.21 L, Hgb 9.0 L, Hct 29.7 L, MCV 92.5, MCH 28.0, MCHC 30.3 L, RDW Std Deviation 50.4 H, RDW Coeff of Naseem 14.8 H, Plt Count 346, MPV 8.4, Immature Gran % (Auto) 1.100 H, Neut % (Auto) 67.9, Lymph % (Auto) 16.6 L, [place] % (Auto) 7.1, Eos % (Auto) 6.6 H, Baso % (Auto) 0.7, Absolute Neuts (auto) 7.0, Absolute Lymphs (auto) 1.72, Nucleated RBC % 0 02/07/21 04:35: Sodium 141, Potassium 3.6, Chloride 112 H, Carbon Dioxide 25.0, Anion Gap 4 L, BUN 12, Creatinine 0.47 L, Estim Creat Clear Calc 47.20, Est GFR (MDRD) Af Amer 166, Est GFR (MDRD) Non-Af 137, BUN/Creatinine Ratio 25.4 H, Glucose 84, Calcium 7.9 L, Total Bilirubin 0.30, AST 24, ALT 9 L, Alkaline Phosphatase 119 H, Total Protein 5.0 L, Albumin 1.4 L, Globulin 3.6, Albumin/Globulin Ratio 0.4 L Current Medications Acetaminophen (Acetaminophen 325 Mg Tablet) 650 mg PO Q6H PRN PRN PRN Reason: Pain Score 1-10/Temp > 100.7 F Last Admin: 02/06/21 23:14 Dose: 650 mg Documented by: Aspirin (Aspirin E.C. 81 Mg Tablet) 81 mg PO QHS [facility] Last Admin: 02/06/21 22:57 Dose: 81 mg Documented by: Atorvastatin Calcium (Atorvastatin Calcium 20 Mg Tablet) 20 mg PO QHS [facility] Last Admin: 02/06/21 22:57 Dose: 20 mg Documented by: Calamine/Phenol (Menthol/Lanolin/Calamine/Znox 113 Gm Tube) 1 applic TOPICAL BID [facility]; Protocol Last Admin: 02/06/21 22:59 Dose: 1 applic Documented by: Cholecalciferol (Cholecalciferol (Vit D3) 25 Mcg Tablet (1,000 Units)) 25 mcg PO DAILY [facility] Last Admin: 02/06/21 10:10 Dose: 25 mcg Documented by: Collagenase (Collagenase 30gm Tube) 1 applic TOPICAL DAILY [facility]; Protocol Last Admin: 02/06/21 10:12 Dose: 1 applic Documented by: Doxepin HCl (Doxepin Hydrochloride 10 Mg Capsule) 10 mg PO QHS [facility] Last Admin: 02/06/21 23:25 Dose: 10 mg Documented by: Gabapentin (Gabapentin 100 Mg Capsule) 100 mg PO DAILY [facility] Last Admin: 02/06/21 10:10 Dose: 100 mg Documented by: Heparin Sodium (Porcine) (Heparin Injection (Vial) 5,000 Unit/Ml Vial) 5,000 unit SC Q12 [facility] Last Admin: 02/06/21 22:58 Dose: 5,000 unit Documented by: Vancomycin IV Pharmacy to Dose (1 each/ Sodium Chloride) 500 mls @ 250 mls/hr IV X1 PRN; Protocol PRN Reason: Rx to Dose Sodium Chloride () 250 mls @ 15 mls/hr IV .[id number] PRN PRN Reason: Saline Flush Sodium Chloride () 250 mls @ 15 mls/hr IV .[id number] PRN PRN Reason: Additional IVPB Infusion Cefepime HCl 2 gm/ Sodium (Chloride) 100 mls @ 200 mls/hr IV BID [facility] Last Infusion: 02/06/21 23:30 Dose: Infused Documented by: Vancomycin HCl 750 mg/ Sodium (Chloride) 265 mls @ 250 mls/hr IV Q12H [facility] Last Admin: 02/07/21 03:19 Dose: 250 mls/hr Documented by: Lactobacillus Acidophilus (Lactobacillus Acidophilus) 1 tablet PO BID [facility] Last Admin: 02/06/21 22:57 Dose: 1 tablet Documented by: Levothyroxine Sodium (Levothyroxine 137 Mcg Tablet) 137 mcg PO QHS [facility] Last Admin: 02/06/21 22:57 Dose: 137 mcg Documented by: Melatonin (Melatonin 3 Mg Tablet) 3 mg PO QHS PRN PRN PRN Reason: INSOMNIA Metoprolol Tartrate (Metoprolol Tartrate 100 Mg Tablet) 100 mg PO QHS [facility] Last Admin: 02/06/21 23:25 Dose: 100 mg Documented by: Morphine Sulfate (Morphine 4 Mg/Ml Syringe) 4 mg IV Q4H PRN PRN PRN Reason: Pain Score 6-10 Nutritional Formula (Lactose Free) (Ensure Enlive 120 Ml Liquid) 120 ml PO 4X/DAY [facility] Last Admin: 02/06/21 23:10 Dose: 120 ml Documented by: Ondansetron HCl (Ondansetron 4 Mg/2 Ml Vial) 4 mg IV Q8H PRN PRN PRN Reason: NAUSEA/VOMITING Oxycodone HCl (Oxycodone 5 Mg Tablet) 10 mg PO Q4H PRN PRN PRN Reason: Pain Score 6-10 Last Admin: 02/07/21 03:19 Dose: 10 mg Documented by: Pentoxifylline (Pentoxifylline 400 Mg Tablet) 400 mg PO DAILY [facility] Last Admin: 02/06/21 10:10 Dose: 400 mg Documented by: Senna/Docusate Sodium (Senna/Docusate Sodium 1 Tablet) 2 tablet PO BID PRN PRN PRN Reason: Constipation Sodium Chloride (0.9% Saline Lock 10 Ml Syringe) 10 - 40 ml IV UD PRN PRN Reason: SALINE FLUSH Last Admin: 02/07/21 03:23 Dose: 10 ml Documented by: Vancomycin HCl (Vancomcyin 125 Mg/5 Ml Susp Po.Syringe) 125 mg PO Q6 [facility] Last Admin: 02/07/21 06:52 Dose: 125 mg Documented by: Medical Necessity - Tobacco Use Smoking Status: Former smoker Assessment/Plan All Active Problems (Last Reviewed 02/04/21 @ 01:[address] Rupesh Jennings MD) Severe sepsis (Acute) Hypokalemia (Acute) Cellulitis (Acute) Osteomyelitis of left fibula (Acute) Osteomyelitis (Acute) Sepsis (Acute) Hx of tubal ligation (Acute) Cellulitis of left leg (Acute) Colonization status (Acute) C. difficile colitis (Resolved) Ulcer of left lower extremity, limited to breakdown of skin (Acute) Left leg ulceration down to subcutaneous ulcer - chronic Cellulitis left lower extremity Osteomyelitis left fibula - chronic Peripheral vascular disease lower extremity - chronic Diarrhea w/ c. diff Multiple comorbidities Left leg ulceration is chronic, cellulitis, left fibula with continued evidence of osteomyelitis on xray, reviewed MRI and continued osteomyelitis noted. ID service/ Dr. De La Cruz consulted. Culture has been obtained -growing staph aureus, pseudomonas, and citobacter - blood cultures with no growth. Patient would like to proceed with amputation. Patient has already undergone extensive attempts with wound care and limb salvage, we discussed concern that this leg ulcer will not heal, she has had multiple infections over the past year to the leg, there is high concern for continued recurrent infections. Attempts at further limb salvage is very guarded due to chronic nonhealing wounds to leg, chronic osteomyelitis, arterial/venous disease, hx of c diff, and severe pain. Patient is scheduled for angiogram with possible aorta and illiac intervention next Wednesday. I believe this would potentially help a BKA or AKA heal. This was discussed with patient and her daughter who is at bedside. Dr. Ang has been consulted, and has seen patient - reviewed his findings/recommendations. Continue local wound care daily dressing changes. Keep ulcer offloaded, keep elevated. Podiatry will continue to follow.
[2021-02-07] MEDS: Heparin Injection (Vial) 5,000 UNIT/ML VIAL 5000 UNIT SC ×2 (09:05→22:10)
[2021-02-07] MEDS: Gabapentin 100 MG Capsule PO (09:06)
[2021-02-07] MEDS: Menthol/Lanolin/Calamine/Znox 113 GM Tube 1 APPLIC TOPICAL ×2 (09:06→22:07)
[2021-02-07] MEDS: Cholecalciferol (VIT D3) 25 MCG TABLET (1,000 UNITS) PO (09:06)
[2021-02-07] MEDS: Pentoxifylline 400 MG Tablet PO (09:12)
--- NOTE | 2021-02-07 10:06 | CASEMGMT ---
Social Work Note SW in to speak with pt regarding pt's comment of wanting to yesterday. Pt sleeping when this worker entered the room but woke up this time to talk to pt. SW provided support to pt. Pt states she was getting her dressing changes done yesterday and made the comment of wanting to due to the pain of dressing changes. Pt denied any history of depression and denied any current depression. Pt denied any history of suicidal thoughts/plans/ideations and pt denied any current suicidal thoughts/plans/ideations. Pt states she does have some history of anxiety. Pt states that she has a great family and God. Pt states that her family is supportive and takes good care of her. SW informed pt that ID will make recommendations of Antibiotics. SW asked pt if she has to be on IV antibiotics what her discharge plan is and pt states she will be returning home. SW informed pt that this worker and RN APOLLO will likely be meeting with her and her daughter today when daughter arrives to [facility] to continue discussion of discharge plans. Pt states understanding. SW to continue to follow. Stella Landaverde BOTTLER, QM CONSULTANT
[2021-02-07] MEDS: Morphine 4 MG/ML Syringe IV ×2 (10:44→20:10)
[2021-02-07] MEDS: Collagenase 30gm Tube 1 APPLIC TOPICAL (10:44)
--- NOTE | 2021-02-07 12:19 | CASEMGMT ---
Addendum entered by Stella Landaverde 02/07/21 13:51: SW faxed antibiotic scripts to [facility]. Pt will be getting MidLine placed. Original Note: Social Work Note SW in to speak with pt and pt's daughter to discuss discharge plans. Per daughter, pt is not able to return home at this time. Patient (and/or patient?s family) was provided a list of SNF providers including quality and resource use data and consistent with the patient?s preferred geographic region, medical needs, and insurance network. Pt confirms she has been to [facility] before. SW did update pt and pt's daughter that [facility] doesn't have any beds available at this time. SW had called Jelly in TCU earlier and she reported no beds until next week. Pt and daughter agreeable to referral being sent to [facility]. SW faxed referral to [facility]. SW spoke with Sanjuana at [facility] and updated her on referral, waiting for ID to see pt. CAPRICE asked Sanjuana about PT/OT as PT/OT hasn't been ordered. Sanjuana states they do NOT need PT/OT as they will just reevaluate pt when pt admits. Sanjuana states she will need to know antibiotics before confirming if they can accept pt or not. CAPRICE waiting for ID. Plan: SNF Stella Landaverde LEATHER STAKER, [employer]SE ATTENDANT
[2021-02-07] MEDS: Metoprolol Tartrate 50 MG Tablet PO (12:23)
--- NOTE | 2021-02-07 13:03 | PN.ID_ITS ---
Patient Problems: Active and Suspected Problems (Last Reviewed 02/04/21 @ 01:[address] Rupesh Jennings MD) Hypokalemia (Acute) Cellulitis (Acute) Osteomyelitis of left fibula (Acute) Osteomyelitis (Acute) Sepsis (Acute) Hx of tubal ligation (Acute) Cellulitis of left leg (Acute) Colonization status (Acute) Ulcer of left lower extremity, limited to breakdown of skin (Acute) Subjective: Feeling ok, tired, depressed. No fever, diarrhea better - Physical Exam Vitals/I&O's: Vital Signs Temp Pulse Resp BP Pulse Ox 98.3 F 132 H 18 139/62 H 97 02/07/21 08:46 02/07/21 12:23 02/07/21 08:46 02/07/21 08:46 02/07/21 08:46 Oxygen Flow Rate (L/min) 1 Oxygen Delivery Method Room Air Weight: 58.8 kg Body Mass Index (BMI) 27.1 Intake and Output for Last 24 Hours 02/05/21 02/06/21 02/07/21 23:59 23:59 23:59 Intake Total 2904.59 / 2904.59 2146.25 / 2246.25 565 / 565 Output Total 350 / 400 251 / 451 600 / 600 Balance 2554.59 / 2504.59 1895.25 / 1795.25 -35 / -35 General: Cooperative, No apparent distress Lungs: Clear to auscultation, Normal air movement Cardiovascular: Regular rate, Regular Rhythm Abdomen: Soft, Non Tender, Non-Distended Skin: Ulcer/ Wound - leg wrapped Microbiology Past 72 Hours 02/04/21 10:45 Wound Abcess - Leg, Left Gram Stain - Final 02/04/21 10:45 Wound Abcess - Leg, Left Wound Culture - Final Pseudomonas aeroginosa Citrobacter freundii Staphylococcus aureus 02/04/21 05:18 Blood Culture (Wb) - Left Hand Blood Culture - Preliminary No growth in 48 hours. 02/04/21 00:50 Blood Culture (Wb) - Right Wrist Blood Culture - Preliminary No growth in 48 hours. Laboratory Results 02/07/21 04:35: WBC 10.4, RBC 3.21 L, Hgb 9.0 L, Hct 29.7 L, MCV 92.5, MCH 28.0, MCHC 30.3 L, RDW Std Deviation 50.4 H, RDW Coeff of Naseem 14.8 H, Plt Count 346, MPV 8.4, Immature Gran % (Auto) 1.100 H, Neut % (Auto) 67.9, Lymph % (Auto) 16.6 L, [place] % (Auto) 7.1, Eos % (Auto) 6.6 H, Baso % (Auto) 0.7, Absolute Neuts (auto) 7.0, Absolute Lymphs (auto) 1.72, Nucleated RBC % 0 02/07/21 04:35: Sodium 141, Potassium 3.6, Chloride 112 H, Carbon Dioxide 25.0, Anion Gap 4 L, BUN 12, Creatinine 0.47 L, Estim Creat Clear Calc 47.20, Est GFR (MDRD) Af Amer 166, Est GFR (MDRD) Non-Af 137, BUN/Creatinine Ratio 25.4 H, Glucose 84, Calcium 7.9 L, Total Bilirubin 0.30, AST 24, ALT 9 L, Alkaline Phosphatase 119 H, Total Protein 5.0 L, Albumin 1.4 L, Globulin 3.6, Albumin/Globulin Ratio 0.4 L Current Medications Acetaminophen (Acetaminophen 325 Mg Tablet) 650 mg PO Q6H PRN PRN PRN Reason: Pain Score 1-10/Temp > 100.7 F Last Admin: 02/06/21 23:14 Dose: 650 mg Documented by: Aspirin (Aspirin E.C. 81 Mg Tablet) 81 mg PO QHS [facility] Last Admin: 02/06/21 22:57 Dose: 81 mg Documented by: Atorvastatin Calcium (Atorvastatin Calcium 20 Mg Tablet) 20 mg PO QHS [facility] Last Admin: 02/06/21 22:57 Dose: 20 mg Documented by: Calamine/Phenol (Menthol/Lanolin/Calamine/Znox 113 Gm Tube) 1 applic TOPICAL BID [facility]; Protocol Last Admin: 02/07/21 09:06 Dose: 1 applic Documented by: Cholecalciferol (Cholecalciferol (Vit D3) 25 Mcg Tablet (1,000 Units)) 25 mcg PO DAILY [facility] Last Admin: 02/07/21 09:06 Dose: 25 mcg Documented by: Collagenase (Collagenase 30gm Tube) 1 applic TOPICAL DAILY [facility]; Protocol Last Admin: 02/07/21 10:44 Dose: 1 applic Documented by: Doxepin HCl (Doxepin Hydrochloride 10 Mg Capsule) 10 mg PO QHS [facility] Last Admin: 02/06/21 23:25 Dose: 10 mg Documented by: Gabapentin (Gabapentin 100 Mg Capsule) 100 mg PO DAILY [facility] Last Admin: 02/07/21 09:06 Dose: 100 mg Documented by: Heparin Sodium (Porcine) (Heparin Injection (Vial) 5,000 Unit/Ml Vial) 5,000 unit SC Q12 [facility] Last Admin: 02/07/21 09:05 Dose: 5,000 unit Documented by: Sodium Chloride () 250 mls @ 15 mls/hr IV .[id number] PRN PRN Reason: Saline Flush Sodium Chloride () 250 mls @ 15 mls/hr IV .[id number] PRN PRN Reason: Additional IVPB Infusion Cefepime HCl 2 gm/ Sodium (Chloride) 100 mls @ 200 mls/hr IV BID [facility] Last Infusion: 02/07/21 11:12 Dose: Infused Documented by: Lactobacillus Acidophilus (Lactobacillus Acidophilus) 1 tablet PO BID [facility] Last Admin: 02/07/21 09:06 Dose: 1 tablet Documented by: Levothyroxine Sodium (Levothyroxine 137 Mcg Tablet) 137 mcg PO QHS [facility] Last Admin: 02/06/21 22:57 Dose: 137 mcg Documented by: Melatonin (Melatonin 3 Mg Tablet) 3 mg PO QHS PRN PRN PRN Reason: INSOMNIA Metoprolol Tartrate (Metoprolol Tartrate 100 Mg Tablet) 100 mg PO QHS [facility] Last Admin: 02/06/21 23:25 Dose: 100 mg Documented by: Metoprolol Tartrate (Metoprolol Tartrate 50 Mg Tablet) 50 mg PO DAILY [facility] Last Admin: 02/07/21 12:23 Dose: 50 mg Documented by: Morphine Sulfate (Morphine 4 Mg/Ml Syringe) 4 mg IV Q4H PRN PRN PRN Reason: Pain Score 6-10 Last Admin: 02/07/21 10:44 Dose: 4 mg Documented by: Nutritional Formula (Lactose Free) (Ensure Enlive 120 Ml Liquid) 120 ml PO 4X/DAY [facility] Last Admin: 02/07/21 12:23 Dose: 120 ml Documented by: Ondansetron HCl (Ondansetron 4 Mg/2 Ml Vial) 4 mg IV Q8H PRN PRN PRN Reason: NAUSEA/VOMITING Oxycodone HCl (Oxycodone 5 Mg Tablet) 10 mg PO Q4H PRN PRN PRN Reason: Pain Score 6-10 Last Admin: 02/07/21 03:19 Dose: 10 mg Documented by: Pentoxifylline (Pentoxifylline 400 Mg Tablet) 400 mg PO DAILY [facility] Last Admin: 02/07/21 09:12 Dose: 400 mg Documented by: Senna/Docusate Sodium (Senna/Docusate Sodium 1 Tablet) 2 tablet PO BID PRN PRN PRN Reason: Constipation Sodium Chloride (0.9% Saline Lock 10 Ml Syringe) 10 - 40 ml IV UD PRN PRN Reason: SALINE FLUSH Last Admin: 02/07/21 10:44 Dose: 10 ml Documented by: Vancomycin HCl (Vancomcyin 125 Mg/5 Ml Susp Po.Syringe) 125 mg PO Q6 [facility] Last Admin: 02/07/21 12:19 Dose: 125 mg Documented by: Medical Necessity - Tobacco Use Smoking Status: Former smoker Route of nutrition/ use of supplements: [] Nutritional Intake: [] IV Site: [] [place] Catheter: [] - Assessment/Plan Antibiotics: [] Assessment/Plan: [] Active and Suspected Problems (Last Reviewed 02/04/21 @ 01:[address] Rupesh Jennings MD) Hypokalemia (Acute) Cellulitis (Acute) Osteomyelitis of left fibula (Acute) Osteomyelitis (Acute) Sepsis (Acute) Hx of tubal ligation (Acute) Cellulitis of left leg (Acute) Colonization status (Acute) Ulcer of left lower extremity, limited to breakdown of skin (Acute) LLE infected ulcer and cellulitis - wound cx with PsA, mssa, citro. Amputation planned after angio next week. Will order midline, 2 weeks cefepime. Will stop vanc. recurrent cdiff - po vanc, improving. Will plan on long taper, timing will depend on when the other abx are able to stop. Will follow, ID followup in 2 weeks. D/w welfare case worker
--- NOTE | 2021-02-07 14:23 | CASEMGMT ---
Social Work Note CAPRICE received call from Sanjuana at [facility] stating they can accept pt but not until Wednesday Afternoon. CAPRICE informed Sanjuana that pt is medically ready for discharge, cannot wait until Wednesday. CAPRICE placed a call to pt's daughter Tasia and updated her. Tasia states she has no preference, gave this worker permission to call any SNF in [place] to see if anyone can accept pt. CAPRICE placed a call to Keesha at [facility] and left message regarding bed availability. CAPRICE placed a call to Abbey at [facility]. Abbey states they have beds available, will review referral. CAPRICE faxed referral to [facility]. Plan: SNF Stella Landaverde CHILD CARE AIDE, LICENSED PESTICIDE APPLICATOR
--- NOTE | 2021-02-07 14:36 | NURSING ---
yarn cleaner called for line placement
[2021-02-07] MEDS: Ipratropium 0.5 MG/2.5 ML SOLUTION INHALATION ×3 (14:52→22:30)
--- NOTE | 2021-02-07 15:13 | PCM.DC.POD ---
Cleanse incision/area with: - Additional Dressing/Incision Instructions:: Wound care left leg: Cleanse the left lower leg wounds gently by pouring normal saline over area, gently pat dry (pt is very painful with dressings changes so will need pre-medicated). Apply nickel thick layer of santyl to the main ulcer (anterior lateral leg) only and place Adaptic to entire lower leg and dorsal foot. Cover with ABD pads and gently wrap with kerlix. Patient not able to tolerate bereket bandage. Change daily and prn drainage. Also keep bilateral heels offloaded at all times using pillows. Allergies/Adverse Reactions: Allergies naproxen [From Naprosyn] Allergy (Verified 02/03/21 18:10) Rash Penicillins [PCN] Allergy (Verified 02/03/21 18:10) Rash amoxicillin Adverse Reaction (Verified 02/03/21 18:10) Rash cephalexin [From Keflex] Adverse Reaction (Verified 02/03/21 18:10) Rash clotrimazole [From Lotrimin] Adverse Reaction (Verified 02/03/21 18:10) Rash diphenhydramine [From Benadryl] Adverse Reaction (Verified 02/03/21 18:10) Rash griseofulvin Adverse Reaction (Verified 02/03/21 18:10) Rash ibuprofen [From Motrin] Adverse Reaction (Verified 02/03/21 18:10) Rash miconazole [From Monistat 1 Combo Pack] Adverse Reaction (Verified 02/03/21 18:10) Rash propranolol [From Inderal LA] Adverse Reaction (Verified 02/03/21 18:10) Rash rofecoxib [From Vioxx] Adverse Reaction (Verified 02/03/21 18:10) Rash Sulfa (Sulfonamide Antibiotics) Adverse Reaction (Verified 02/03/21 18:10) Rash Medications to take at Discharge Aspirin E.C. [Ecotrin] 81 mg PO DAILY 11/28/19 Doxepin HCl [Sinequan] 10 mg PO QHS 11/28/19 Levothyroxine [Synthroid] 137 mcg PO QHS 11/28/19 Pentoxifylline [Trental] 400 mg PO QHS 11/28/19 Simvastatin [Zocor] 40 mg PO QHS 11/28/19 Lactobacillus Acidophilus [Acidophilus] 2 tab PO BID 03/26/20 Metoprolol Tartrate 50 mg PO DAILY 03/26/20 Metoprolol Tartrate [Lopressor (beta stefany)] 100 mg PO QHS 03/26/20 cholecalciferol (vitamin D3) 25 mcg (1,000 unit) capsule 25 mcg PO DAILY 04/11/20 Acetaminophen [Tylenol Tablet] 650 mg PO Q6H PRN PRN tab 05/31/20 Cefepime HCl [Maxipime] 2 gm IV BID 14 Days #28 vial 02/07/21 Vancomcyin 125mg/5mL PO Liquid 125 mg PO Q6 14 Days #56 po.syringe 02/07/21 Collagenase [Santyl] 1 applic TOPICAL DAILY tube 02/09/21 Ensure Enlive 120 ml PO 4X/DAY liquid 02/09/21 Gabapentin [Neurontin] 200 mg PO DAILY capsule 02/09/21 Menthol/Lanolin/Calamine/Znox [Calmoseptine Ointment] 1 applic TOPICAL BID tube 02/09/21 The following prescriptions were given: Cefepime HCl [Maxipime] 2 gm IV BID 14 Days #28 vial Prescription Printed Vancomcyin 125mg/5mL PO Liquid 125 mg PO Q6 14 Days #56 po.syringe Prescription Printed Primary Care Physician: Boo Cotton MD [Primary Care Provider] - Test Results: Test results from this visit will be discussed in further detail at your follow-up appointment, if applicable. Please Follow Up With: Abby Cooper DPM When: 1 week at [facility] Please Follow Up With: Bryan Morel MD When: as scheduled on Wednesday02/11/2021 for vascular procedure
--- NOTE | 2021-02-07 16:11 | CASEMGMT ---
Social Work Note CAPRICE received call from Sanjuana at [facility] stating they could accept pt on Wednesday. CAPRICE spoke with physician, ok for pt to discharge to SNF on Wednesday. CAPRICE updated Sanjuana. Sanjuana asked for staff to call her on her cell phone ([phone]) to let her know discharge time and then to have staff call [facility] Main number ([phone]) for RN report. Sanjuana states she will also need COVID test. CAPRICE updated pt's daughter Tasia on acceptance to [facility] and discharge Wednesday. Pt sleeping during conversation. CAPRICE completed [facility]escent [facility] in [place]. CAPRICE placed Green sheet, HENS, Transport form, and COVID screening tool on pt's chart. CAPRICE placed a call to Abbey at [facility] and updated her to disregard referral. Plan: [facility] Wednesday skilled Stella Landaverde CARPENTER AND JOINER, FUELS ENGINEER
--- NOTE | 2021-02-07 18:00 | CASEMGMT ---
Social Work Note CAPRICE back in to speak with pt and pt's daughter Tasia as pt had made comment earlier that no one cares. CAPRICE attempted to speak with pt. Pt sleeping, didn't wake up. CAPRICE spoke with Tasia regarding pt's Mental Health. Tasia states she has no concerns with pt's Mental Health states pt has no history of suicidal thoughts/plans/ideations. Tasia states she would imagine that if pt has the amputation that there would be some kind of counseling for pt after the surgery. CAPRICE informed Tasia that there are always counseling agencies that pt could look into but also informed Tasia that [facility] should have a psychiatrist that could see pt too. Tasia states understanding. Tasia states she thinks pt stated that no one cared because pt feels that [facility] is just moving pt to SNF and that is why no one cares. CAPRICE again spoke with Tasia about how there has to be a medical reason to keep pt at [facility] and if there is no medical necessity to keep pt pt will be discharged. Tasia states understanding, states again she has no concerns with pt's Mental Health. Stella Landaverde FAST BRIM POUNCER, IT ADMIN
[2021-02-07] MEDS: Acetaminophen 325 MG Tablet 650 MG PO (22:05)
[2021-02-07] MEDS: Metoprolol Tartrate 100 MG Tablet PO (22:05)
[2021-02-07] MEDS: Atorvastatin Calcium 20 MG Tablet PO (22:10)
[2021-02-07] MEDS: Doxepin Hydrochloride 10 MG Capsule PO (22:10)
[2021-02-07] MEDS: Aspirin E.C. 81 MG Tablet PO (22:10)
[2021-02-07] MEDS: Levothyroxine 137 MCG Tablet PO (22:10)
[2021-02-08] VITALS (14 sets, daily range): BP systolic 117–150; BP diastolic 48–70; PULSE 101–133; RESP 16–20; TEMP 36.5–37.6; O2SAT 94–98
[2021-02-08] MEDS: Ipratropium 0.5 MG/2.5 ML SOLUTION INHALATION ×6 (02:53→22:19)
[2021-02-08] MEDS: Morphine 4 MG/ML Syringe IV (05:47)
--- NOTE | 2021-02-08 07:30 | PCM.PN.HOSP ---
Patient Problems: Active and Suspected Problems (Last Reviewed 02/04/21 @ 01:[address] Rupesh Jennings MD) Hypokalemia (Acute) Cellulitis (Acute) Osteomyelitis of left fibula (Acute) Osteomyelitis (Acute) Sepsis (Acute) Hx of tubal ligation (Acute) Cellulitis of left leg (Acute) Colonization status (Acute) Ulcer of left lower extremity, limited to breakdown of skin (Acute) Reason for Visit: Follow-up on left lower extremity infected ulcer/cellulitis/acute on chronic osteomyelitis Subjective: Patient was seen and examined. No new complains. Denies any fever or chills. Objective: Physical exam: General: Alert, Oriented x3, Cooperative HEENT: Atraumatic, PERRLA, EOMI, Normocephalic Neck: Supple, No JVD, Negative Carotid Bruits Lungs: Clear to auscultation, Normal air movement Cardiovascular: Regular rate, No murmurs Abdomen: Bowel Sounds Present, Soft, Non Tender Extremities: Edema - Left leg and left foot Skin: - -Dressing intact over left leg Musculoskeletal: No Tenderness to Palpation of Joints or Extremities Neurological: Cranial nerves II-XII grossly intact Psych/Mental Status: Normal Affect, Appropriate Vitals/I&O's: Vital Signs Temp Pulse Resp BP Pulse Ox 97.7 F L 104 H 16 139/62 H 97 02/08/21 02:13 02/08/21 02:53 02/08/21 02:53 02/08/21 02:13 02/08/21 02:13 Oxygen Flow Rate (L/min) 1 Oxygen Delivery Method Room Air Weight: 58.8 kg Body Mass Index (BMI) 27.1 Intake and Output for Last 24 Hours 02/06/21 02/07/21 02/08/21 23:59 23:59 23:59 Intake Total 2146.25 / 2246.25 915 / 915 200 / 200 Output Total 251 / 451 1500 / 1500 700 / 700 Balance 1895.25 / 1795.25 -585 / -585 -500 / -500 Microbiology Past 72 Hours 02/08/21 02:15 Mucosa - Nose SARS-CoV-2 Antigen (Rapid) - Final 02/04/21 10:45 Wound Abcess - Leg, Left Gram Stain - Final 02/04/21 10:45 Wound Abcess - Leg, Left Wound Culture - Final Pseudomonas aeroginosa Citrobacter freundii Staphylococcus aureus 02/04/21 05:18 Blood Culture (Wb) - Left Hand Blood Culture - Preliminary No growth in 48 hours. 02/04/21 00:50 Blood Culture (Wb) - Right Wrist Blood Culture - Preliminary No growth in 48 hours. Current Medications Acetaminophen (Acetaminophen 325 Mg Tablet) 650 mg PO Q6H PRN PRN PRN Reason: Pain Score 1-10/Temp > 100.7 F Last Admin: 02/07/21 22:05 Dose: 650 mg Documented by: Aspirin (Aspirin E.C. 81 Mg Tablet) 81 mg PO QHS [facility] Last Admin: 02/07/21 22:10 Dose: 81 mg Documented by: Atorvastatin Calcium (Atorvastatin Calcium 20 Mg Tablet) 20 mg PO QHS [facility] Last Admin: 02/07/21 22:10 Dose: 20 mg Documented by: Calamine/Phenol (Menthol/Lanolin/Calamine/Znox 113 Gm Tube) 1 applic TOPICAL BID [facility]; Protocol Last Admin: 02/07/21 22:07 Dose: 1 applic Documented by: Cholecalciferol (Cholecalciferol (Vit D3) 25 Mcg Tablet (1,000 Units)) 25 mcg PO DAILY [facility] Last Admin: 02/07/21 09:06 Dose: 25 mcg Documented by: Collagenase (Collagenase 30gm Tube) 1 applic TOPICAL DAILY [facility]; Protocol Last Admin: 02/07/21 10:44 Dose: 1 applic Documented by: Doxepin HCl (Doxepin Hydrochloride 10 Mg Capsule) 10 mg PO QHS [facility] Last Admin: 02/07/21 22:10 Dose: 10 mg Documented by: Gabapentin (Gabapentin 100 Mg Capsule) 200 mg PO DAILY [facility] Heparin Sodium (Porcine) (Heparin Injection (Vial) 5,000 Unit/Ml Vial) 5,000 unit SC Q12 [facility] Last Admin: 02/07/21 22:10 Dose: 5,000 unit Documented by: Sodium Chloride () 250 mls @ 15 mls/hr IV .[id number] PRN PRN Reason: Saline Flush Last Admin: 02/07/21 23:51 Dose: 15 mls/hr Documented by: Sodium Chloride () 250 mls @ 15 mls/hr IV .[id number] PRN PRN Reason: Additional IVPB Infusion Cefepime HCl 2 gm/ Sodium (Chloride) 100 mls @ 200 mls/hr IV BID [facility] Last Infusion: 02/07/21 22:33 Dose: Infused Documented by: Ipratropium [place] (Ipratropium 0.5 Mg/2.5 Ml Solution) 0.5 mg INHALATION Q4H.RT [facility] Last Admin: 02/08/21 07:28 Dose: 0.5 mg Documented by: Lactobacillus Acidophilus (Lactobacillus Acidophilus) 1 tablet PO BID [facility] Last Admin: 02/07/21 22:10 Dose: 1 tablet Documented by: Levothyroxine Sodium (Levothyroxine 137 Mcg Tablet) 137 mcg PO QHS [facility] Last Admin: 02/07/21 22:10 Dose: 137 mcg Documented by: Lidocaine HCl (Lidocaine 2% Viscous 15 Ml Udc) 5 ml PO Q3H PRN PRN Reason: MOUTH IRRITATION Last Admin: 02/07/21 17:46 Dose: 5 ml Documented by: Melatonin (Melatonin 3 Mg Tablet) 3 mg PO QHS PRN PRN PRN Reason: INSOMNIA Metoprolol Tartrate (Metoprolol Tartrate 100 Mg Tablet) 100 mg PO QHS [facility] Last Admin: 02/07/21 22:05 Dose: 100 mg Documented by: Metoprolol Tartrate (Metoprolol Tartrate 50 Mg Tablet) 50 mg PO DAILY [facility] Last Admin: 02/07/21 12:23 Dose: 50 mg Documented by: Morphine Sulfate (Morphine 4 Mg/Ml Syringe) 4 mg IV Q4H PRN PRN PRN Reason: Pain Score 6-10 Last Admin: 02/08/21 05:47 Dose: 4 mg Documented by: Nutritional Formula (Lactose Free) (Ensure Enlive 120 Ml Liquid) 120 ml PO 4X/DAY [facility] Last Admin: 02/07/21 22:07 Dose: 120 ml Documented by: Ondansetron HCl (Ondansetron 4 Mg/2 Ml Vial) 4 mg IV Q8H PRN PRN PRN Reason: NAUSEA/VOMITING Oxycodone HCl (Oxycodone 5 Mg Tablet) 10 mg PO Q4H PRN PRN PRN Reason: Pain Score 6-10 Last Admin: 02/07/21 17:45 Dose: 10 mg Documented by: Pentoxifylline (Pentoxifylline 400 Mg Tablet) 400 mg PO DAILY [facility] Last Admin: 02/07/21 09:12 Dose: 400 mg Documented by: Senna/Docusate Sodium (Senna/Docusate Sodium 1 Tablet) 2 tablet PO BID PRN PRN PRN Reason: Constipation Sodium Chloride (0.9% Saline Lock 10 Ml Syringe) 10 - 40 ml IV UD PRN PRN Reason: SALINE FLUSH Last Admin: 02/07/21 23:51 Dose: 10 ml Documented by: Vancomycin HCl (Vancomcyin 125 Mg/5 Ml Susp Po.Syringe) 125 mg PO Q6 [facility] Last Admin: 02/08/21 05:48 Dose: 125 mg Documented by: Medical Necessity - Tobacco Use Smoking Status: Former smoker Assessment/Plan All Active Problems (Last Reviewed 02/04/21 @ 01:[address] Rupesh Jennings MD) Severe sepsis (Acute) Hypokalemia (Acute) Cellulitis (Acute) Osteomyelitis of left fibula (Acute) Osteomyelitis (Acute) Sepsis (Acute) Hx of tubal ligation (Acute) Cellulitis of left leg (Acute) Colonization status (Acute) C. difficile colitis (Resolved) Ulcer of left lower extremity, limited to breakdown of skin (Acute) 1. Severe sepsis secondary to acute on chronic left lower leg cellulitis/osteomyelitis, improving History of Pseudomonas and MSSA; follows with Dr. Cooper in the wound center Recent MRI of the lower extremity on 05/28/20 showed acute on chronic osteomyelitis of the distal fibula Blood and wound cultures are pending; continue on IV cefepime; off IV vancomycin. ID and podiatry consulted; left BKA recommended; orthopedic surgery consulted On pain meds especially for dressing changes. Midline planned 2. 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 Doppler ultrasound of the left lower leg was negative for acute DVT Continue on aspirin, statin, pentoxifylline 3. Hypokalemia, resolved 4. 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 Hypertension, controlled, continue on metoprolol 6. Hyperlipidemia, continue on statin 7. Peripheral neuropathy, continue on gabapentin 8. DVT PPx- Heparin SC 9. Disposition: Discharge to SNF on Wednesday Inpatient E&M: 14483 Subs Hosp L2
[2021-02-08] MEDS: oxyCODONE 5 MG Tablet 10 MG PO ×2 (08:22→21:32)
--- NOTE | 2021-02-08 09:52 | PN_ITS ---
Patient Problems: Active and Suspected Problems (Last Reviewed 02/04/21 @ 01:[address] Rupesh Jennings MD) Hypokalemia (Acute) Cellulitis (Acute) Osteomyelitis of left fibula (Acute) Osteomyelitis (Acute) Sepsis (Acute) Hx of tubal ligation (Acute) Cellulitis of left leg (Acute) Colonization status (Acute) Ulcer of left lower extremity, limited to breakdown of skin (Acute) Subjective: Patient was seen this morning for follow up on left leg. No new complaints. No fever, chills, nausea or vomiting. - Physical Exam Vitals/I&O's: Vital Signs Temp Pulse Resp BP Pulse Ox 98.6 F 125 H 20 H 150/70 H 98 02/08/21 08:13 02/08/21 08:13 02/08/21 08:13 02/08/21 08:13 02/08/21 08:13 Oxygen Flow Rate (L/min) 1 Oxygen Delivery Method Room Air Weight: 58.8 kg Body Mass Index (BMI) 27.1 Intake and Output for Last 24 Hours 02/06/21 02/07/21 02/08/21 23:59 23:59 23:59 Intake Total 2146.25 / 2246.25 915 / 915 200 / 200 Output Total 251 / 451 1500 / 1500 700 / 700 Balance 1895.25 / 1795.25 -585 / -585 -500 / -500 General: Cooperative, No apparent distress Extremities: Capillary Refill Less than 3 Seconds, - - dressing clean, dry and intact left foot/ankle/leg - was just changed at 6am today. No areas of break down, infection or acute ischemia to the right foot/ankle/leg Microbiology Past 72 Hours 02/08/21 02:15 Mucosa - Nose SARS-CoV-2 Antigen (Rapid) - Final 02/04/21 10:45 Wound Abcess - Leg, Left Gram Stain - Final 02/04/21 10:45 Wound Abcess - Leg, Left Wound Culture - Final Pseudomonas aeroginosa Citrobacter freundii Staphylococcus aureus 02/04/21 05:18 Blood Culture (Wb) - Left Hand Blood Culture - Preliminary No growth in 48 hours. 02/04/21 00:50 Blood Culture (Wb) - Right Wrist Blood Culture - Preliminary No growth in 48 hours. Current Medications Acetaminophen (Acetaminophen 325 Mg Tablet) 650 mg PO Q6H PRN PRN PRN Reason: Pain Score 1-10/Temp > 100.7 F Last Admin: 02/07/21 22:05 Dose: 650 mg Documented by: Aspirin (Aspirin E.C. 81 Mg Tablet) 81 mg PO QHS [facility] Last Admin: 02/07/21 22:10 Dose: 81 mg Documented by: Atorvastatin Calcium (Atorvastatin Calcium 20 Mg Tablet) 20 mg PO QHS [facility] Last Admin: 02/07/21 22:10 Dose: 20 mg Documented by: Calamine/Phenol (Menthol/Lanolin/Calamine/Znox 113 Gm Tube) 1 applic TOPICAL BID [facility]; Protocol Last Admin: 02/07/21 22:07 Dose: 1 applic Documented by: Cholecalciferol (Cholecalciferol (Vit D3) 25 Mcg Tablet (1,000 Units)) 25 mcg PO DAILY [facility] Last Admin: 02/07/21 09:06 Dose: 25 mcg Documented by: Collagenase (Collagenase 30gm Tube) 1 applic TOPICAL DAILY [facility]; Protocol Last Admin: 02/07/21 10:44 Dose: 1 applic Documented by: Doxepin HCl (Doxepin Hydrochloride 10 Mg Capsule) 10 mg PO QHS [facility] Last Admin: 02/07/21 22:10 Dose: 10 mg Documented by: Gabapentin (Gabapentin 100 Mg Capsule) 200 mg PO DAILY [facility] Heparin Sodium (Porcine) (Heparin Injection (Vial) 5,000 Unit/Ml Vial) 5,000 unit SC Q12 [facility] Last Admin: 02/07/21 22:10 Dose: 5,000 unit Documented by: Sodium Chloride () 250 mls @ 15 mls/hr IV .[id number] PRN PRN Reason: Saline Flush Last Admin: 02/07/21 23:51 Dose: 15 mls/hr Documented by: Sodium Chloride () 250 mls @ 15 mls/hr IV .[id number] PRN PRN Reason: Additional IVPB Infusion Cefepime HCl 2 gm/ Sodium (Chloride) 100 mls @ 200 mls/hr IV BID [facility] Last Infusion: 02/07/21 22:33 Dose: Infused Documented by: Ipratropium [place] (Ipratropium 0.5 Mg/2.5 Ml Solution) 0.5 mg INHALATION Q4H.RT [facility] Last Admin: 02/08/21 07:28 Dose: 0.5 mg Documented by: Lactobacillus Acidophilus (Lactobacillus Acidophilus) 1 tablet PO BID [facility] Last Admin: 02/07/21 22:10 Dose: 1 tablet Documented by: Levothyroxine Sodium (Levothyroxine 137 Mcg Tablet) 137 mcg PO QHS [facility] Last Admin: 02/07/21 22:10 Dose: 137 mcg Documented by: Lidocaine HCl (Lidocaine 2% Viscous 15 Ml Udc) 5 ml PO Q3H PRN PRN Reason: MOUTH IRRITATION Last Admin: 02/07/21 17:46 Dose: 5 ml Documented by: Melatonin (Melatonin 3 Mg Tablet) 3 mg PO QHS PRN PRN PRN Reason: INSOMNIA Metoprolol Tartrate (Metoprolol Tartrate 100 Mg Tablet) 100 mg PO QHS [facility] Last Admin: 02/07/21 22:05 Dose: 100 mg Documented by: Metoprolol Tartrate (Metoprolol Tartrate 50 Mg Tablet) 50 mg PO DAILY [facility] Last Admin: 02/07/21 12:23 Dose: 50 mg Documented by: Morphine Sulfate (Morphine 4 Mg/Ml Syringe) 4 mg IV Q4H PRN PRN PRN Reason: Pain Score 6-10 Last Admin: 02/08/21 05:47 Dose: 4 mg Documented by: Nutritional Formula (Lactose Free) (Ensure Enlive 120 Ml Liquid) 120 ml PO 4X/DAY [facility] Last Admin: 02/07/21 22:07 Dose: 120 ml Documented by: Ondansetron HCl (Ondansetron 4 Mg/2 Ml Vial) 4 mg IV Q8H PRN PRN PRN Reason: NAUSEA/VOMITING Oxycodone HCl (Oxycodone 5 Mg Tablet) 10 mg PO Q4H PRN PRN PRN Reason: Pain Score 6-10 Last Admin: 02/08/21 08:22 Dose: 10 mg Documented by: Pentoxifylline (Pentoxifylline 400 Mg Tablet) 400 mg PO DAILY [facility] Last Admin: 02/07/21 09:12 Dose: 400 mg Documented by: Senna/Docusate Sodium (Senna/Docusate Sodium 1 Tablet) 2 tablet PO BID PRN PRN PRN Reason: Constipation Sodium Chloride (0.9% Saline Lock 10 Ml Syringe) 10 - 40 ml IV UD PRN PRN Reason: SALINE FLUSH Last Admin: 02/07/21 23:51 Dose: 10 ml Documented by: Vancomycin HCl (Vancomcyin 125 Mg/5 Ml Susp Po.Syringe) 125 mg PO Q6 [facility] Last Admin: 02/08/21 05:48 Dose: 125 mg Documented by: Medical Necessity - Tobacco Use Smoking Status: Former smoker Assessment/Plan All Active Problems (Last Reviewed 02/04/21 @ 01:[address] Rupesh Jennings MD) Severe sepsis (Acute) Hypokalemia (Acute) Cellulitis (Acute) Osteomyelitis of left fibula (Acute) Osteomyelitis (Acute) Sepsis (Acute) Hx of tubal ligation (Acute) Cellulitis of left leg (Acute) Colonization status (Acute) C. difficile colitis (Resolved) Ulcer of left lower extremity, limited to breakdown of skin (Acute) Left leg ulceration down to subcutaneous ulcer - chronic Cellulitis left lower extremity Osteomyelitis left fibula - chronic Peripheral vascular disease lower extremity - chronic Diarrhea w/ c. diff Multiple comorbidities Left leg ulceration is chronic, cellulitis, left fibula with continued evidence of osteomyelitis on xray, reviewed MRI and continued osteomyelitis noted. ID service/ Dr. De La Cruz consulted and following. Culture has been obtained - growing staph aureus, pseudomonas, and citobacter - blood cultures with no growth. Patient has already undergone extensive attempts with wound care and limb salvage, we have discussed concern that this leg ulcer will not heal, there is chronic osteomyelitis and she has had multiple recurrent acute infections over the past year to the leg, there is high concern for continued recurrent acute infections. Attempts at further limb salvage is very guarded due to chronic nonhealing wounds to leg, chronic osteomyelitis, arterial/venous disease, hx of c diff, and severe pain. Patient is scheduled for angiogram with possible aorta and illiac intervention next Wednesday with Dr. Morel. This was discussed with patient and her daughter who is at bedside. Dr. Ang has been consulted, and has seen patient - reviewed his findings/recommendations. Patient planning to be discharged to nursing facility possibly tomorrow. Continue local wound care daily dressing changes - cleanse the left lower leg wounds gently by pouring normal saline over area, gently pat dry (pt is very painful with dressings changes so will need pre-medicated). Apply nickel thick layer of santyl to the main ulcers only and place Adaptic to entire lower leg and dorsal foot. Cover with ABD pads and wrap with kerlix. Change daily and prn drainage. Keep ulcer offloaded, keep heels offloaded. Podiatry will continue to follow.
[2021-02-08] MEDS: Cholecalciferol (VIT D3) 25 MCG TABLET (1,000 UNITS) PO (10:31)
[2021-02-08] MEDS: Gabapentin 100 MG Capsule 200 MG PO (10:32)
[2021-02-08] MEDS: Heparin Injection (Vial) 5,000 UNIT/ML VIAL 5000 UNIT SC ×2 (10:32→21:32)
[2021-02-08] MEDS: Metoprolol Tartrate 50 MG Tablet PO (10:32)
[2021-02-08] MEDS: Menthol/Lanolin/Calamine/Znox 113 GM Tube 1 APPLIC TOPICAL ×2 (10:33→22:13)
[2021-02-08] MEDS: Pentoxifylline 400 MG Tablet PO (10:33)
[2021-02-08] MEDS: Doxepin Hydrochloride 10 MG Capsule PO (21:31)
[2021-02-08] MEDS: Atorvastatin Calcium 20 MG Tablet PO (21:31)
[2021-02-08] MEDS: Metoprolol Tartrate 100 MG Tablet PO (21:31)
[2021-02-08] MEDS: Acetaminophen 325 MG Tablet 650 MG PO (21:31)
[2021-02-08] MEDS: Levothyroxine 137 MCG Tablet PO (21:31)
[2021-02-08] MEDS: Aspirin E.C. 81 MG Tablet PO (21:31)
[2021-02-09] VITALS (7 sets, daily range): BP systolic 117–132; BP diastolic 55–72; PULSE 96–127; RESP 16–22; TEMP 36.6–37; O2SAT 94–98
[2021-02-09] MEDS: Ipratropium 0.5 MG/2.5 ML SOLUTION INHALATION ×2 (02:23→06:28)
[2021-02-09] MEDS: oxyCODONE 5 MG Tablet 10 MG PO (08:00)
--- NOTE | 2021-02-09 09:31 | PCM.TXEXTCAR ---
- Diet 02/03/21 22:52 Diet: Regular - General Food consistency:: Regular Liquid Consistency:: Regular/Thin Type of Dietary Supplement:: Davion Diet Comments: Davion BID w/ lunch and dinner - Routine Orders/Code Status O2 Liters per Minute: 1-2 L O2 Frequency: PRN Keep PO Greater than or Equal to (%): 94 Routine Lab Work: CBC - within 3 days, BMP - within 3 days Code Status: Full Code - Wound(s) LEFT LOWER LEG Wound Type: nonhealing wounds Dressing Change: santyl with Adaptic right hip Wound Type: Pressure Injury left lower leg (anterior cluster) Wound Type: cluster of nonhealing wounds Dressing Change: santyl left lower leg (medial cluster) Wound Type: cluster of nonhealing wounds Dressing Change: santyl with dry dressing - Therapies Physical Therapy: Eval and Treat Occupational Therapy: Eval and Treat - Allergies/Procedures Done in Hospital Allergies/Adverse Reactions: Allergies naproxen [From Naprosyn] Allergy (Verified 02/03/21 18:10) Rash Penicillins [PCN] Allergy (Verified 02/03/21 18:10) Rash amoxicillin Adverse Reaction (Verified 02/03/21 18:10) Rash cephalexin [From Keflex] Adverse Reaction (Verified 02/03/21 18:10) Rash clotrimazole [From Lotrimin] Adverse Reaction (Verified 02/03/21 18:10) Rash diphenhydramine [From Benadryl] Adverse Reaction (Verified 02/03/21 18:10) Rash griseofulvin Adverse Reaction (Verified 02/03/21 18:10) Rash ibuprofen [From Motrin] Adverse Reaction (Verified 02/03/21 18:10) Rash miconazole [From Monistat 1 Combo Pack] Adverse Reaction (Verified 02/03/21 18:10) Rash propranolol [From Inderal [place]] Adverse Reaction (Verified 02/03/21 18:10) Rash rofecoxib [From Vioxx] Adverse Reaction (Verified 02/03/21 18:10) Rash Sulfa (Sulfonamide Antibiotics) Adverse Reaction (Verified 02/03/21 18:10) Rash Procedures: None - Type of Care/Length of Stay Estimated LOS: Convalescent Care Less Than 30 days Type of Care Needed: Skilled Rehab Potential: Fair Prognosis: Fair - Additional Orders/Day of Discharge Day of Discharge: 02/09/21 - Dietary and Speech Recommendations Dietitian Recommendations/Changes: Will continue regular diet and 120mL ensure enlive 4x/day. Will add Davion BID w/ meals for wound healing. - Follow Up Care Primary Care Physician: Boo Cotton MD [Primary Care Provider] - Please follow up with your Primary Care Physician in: within 2 weeks Please Follow Up With: Abby Cooper DPM When: 1 week at [facility] Please Follow Up With: Bryan Morel MD When: as scheduled on Wednesday02/11/2021 for vascular procedure
--- NOTE | 2021-02-09 09:33 | PCM.DC.SUM ---
Discharge Date and Diagnosis - Problem List Patient Problems: Active and Suspected Problems (Last Reviewed 02/04/21 @ 01:[address] Rupesh Jennings MD) Hypokalemia (Acute) Cellulitis (Acute) Osteomyelitis of left fibula (Acute) Osteomyelitis (Acute) Sepsis (Acute) Hx of tubal ligation (Acute) Cellulitis of left leg (Acute) Colonization status (Acute) Ulcer of left lower extremity, limited to breakdown of skin (Acute) Date of Admission: 02/03/21 Date of Discharge: 02/09/21 - Primary Discharge Diagnosis Acute Problems: Active Problems (Last Reviewed 02/04/21 @ 01:[address] 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 Rupesh Jennings MD) Localized edema (Chronic) Chronic pain (Chronic) Post-polio syndrome (Chronic) Hx of knee surgery (Chronic) History of hip surgery (Chronic) Pseudomonas aeruginosa colonization (Chronic) Ulcer of left lower extremity with fat layer exposed (Chronic) Delayed wound healing (Chronic) Venous insufficiency (Chronic) left Greater saphenous vein Other specified peripheral vascular diseases (Chronic) bilateral lower extremity Left leg pain (Chronic) Leg edema, left (Chronic) Diarrhea (Chronic) MVP (mitral valve prolapse) (Chronic) Thyroid disorder (Chronic) HTN (hypertension) (Chronic) HLD (hyperlipidemia) (Chronic) Former tobacco use (Chronic) Sinus tachycardia (Chronic) Hospital Course and Treatment Imaging Results: Clinical Impression(s) from Imaging Studies Tibia/Fibula X-Ray 02/03/21 19:52 IMPRESSION: Soft tissue abnormality of lower leg. There is periosteal reaction about the adjacent fibular shaft. Question osteomyelitis. Electronically Signed: Anthony Barrett DO at 20:32 EDT Tel [phone], Service support , Lower Extremity MRI 02/04/21 12:13 IMPRESSION: 1. Acute on chronic osteomyelitis in the mid to distal one third posterior cortex of the fibula and intramedullary space, which shows the cortex is been eating away focally at this level with overlying periosteal reaction. Infectious myositis and cellulitis are also present at this level without an abscess. Electronically Signed: Carlos Navarro MD at 19:28 EDT , Service support , Consultations 02/04/21 09:44 Consult: Onc/Wound/shrub planter Routine Comment: left leg ulcer ID Podiatry Orthopedic surgery Operations: None, - - Versajet subcutaneous excisional debridement of left leg ulcer. Application of advanced wound healing product, amnio fill left leg. Bone biopsy to left fibula on 05/29/20 Procedures: None Summary of Care Provided: The patient is a 70 year old F with past medical history of chronic left lower leg ulcer,acute on chronic osteomyelitis, who follows with Dr. Cooper in the outpatient, who comes in with increased discharge and odor from her wound. Patient follows with Dr. Morel in the outpatient. There is a plan for revascularization of her left leg. Patient had an MRI of the left lower leg on 02/04/21 which showed acute on chronic osteomyelitis in the mid to distal one third posterior cortex of the fibula and intramedullary space. 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 [facility], started on IV antibiotics and pain control. Podiatry, infectious disease, orthopedics were consulted. Her wound cultures grew Pseudomonas, MSSA, Citrobacter. He initially was started on vancomycin and cefepime. Patient also had acute diarrhea and she was managed on prophylactic vancomycin for history of recurrent C. difficile. Patient was offered amputation. Initially refused. She later accepted. Dr. Morel however was unavailable. Patient is scheduled to follow-up for revascularization on 02/11/21. Her family is unable to take care of her needs especially wounds at home. She was seen in skilled for discharge to [facility] facility. She would follow-up with Dr. Morel and will later be reassessed and possibly get amputation with orthopedics down the line. She was discharged on 2 weeks of cefepime via midline. Patient Problems: Active and Suspected Problems (Last Reviewed 02/04/21 @ 01:[address] Rupesh Jennings MD) Hypokalemia (Acute) Cellulitis (Acute) Osteomyelitis of left fibula (Acute) Osteomyelitis (Acute) Sepsis (Acute) Hx of tubal ligation (Acute) Cellulitis of left leg (Acute) Colonization status (Acute) Ulcer of left lower extremity, limited to breakdown of skin (Acute) Subjective: On the day of discharge, patient was seen and examined. She denied any new complains. Objective: Physical exam: General: Alert, Oriented x3, Cooperative HEENT: Atraumatic, PERRLA, EOMI, Normocephalic Neck: Supple, No JVD, Negative Carotid Bruits Lungs: Clear to auscultation, Normal air movement Cardiovascular: Regular rate, No murmurs Abdomen: Bowel Sounds Present, Soft, Non Tender Extremities: Edema - Left leg and left foot Skin: - -Dressing intact over left leg Musculoskeletal: No Tenderness to Palpation of Joints or Extremities Neurological: Cranial nerves II-XII grossly intact Psych/Mental Status: Normal Affect, Appropriate - Physical Exam Vitals/I&O's: Vital Signs Temp Pulse Resp BP Pulse Ox 97.8 F 104 H 19 H 132/72 H 95 02/09/21 06:01 02/09/21 08:00 02/09/21 06:29 02/09/21 06:01 02/09/21 06:29 Oxygen Flow Rate (L/min) 1 Oxygen Delivery Method Room Air Weight: 58.8 kg Body Mass Index (BMI) 27.1 Intake and Output for Last 24 Hours 02/07/21 02/08/21 02/09/21 23:59 23:59 23:59 Intake Total 915 / 915 1400 / 1400 Output Total 1500 / 1500 1550 / 1650 150 / 150 Balance -585 / -585 -150 / -250 -150 / -150 Microbiology Past 72 Hours 02/04/21 05:18 Blood Culture (Wb) - Left Hand Blood Culture - Final No growth in 5 days. 02/04/21 00:50 Blood Culture (Wb) - Right Wrist Blood Culture - Final No growth in 5 days. 02/08/21 02:15 Mucosa - Nose SARS-CoV-2 Antigen (Rapid) - Final 02/04/21 10:45 Wound Abcess - Leg, Left Gram Stain - Final 02/04/21 10:45 Wound Abcess - Leg, Left Wound Culture - Final Pseudomonas aeroginosa Citrobacter freundii Staphylococcus aureus Current Medications Acetaminophen (Acetaminophen 325 Mg Tablet) 650 mg PO Q6H PRN PRN PRN Reason: Pain Score 1-10/Temp > 100.7 F Last Admin: 02/08/21 21:31 Dose: 650 mg Documented by: Aspirin (Aspirin E.C. 81 Mg Tablet) 81 mg PO QHS [facility] Last Admin: 02/08/21 21:31 Dose: 81 mg Documented by: Atorvastatin Calcium (Atorvastatin Calcium 20 Mg Tablet) 20 mg PO QHS [facility] Last Admin: 02/08/21 21:31 Dose: 20 mg Documented by: Calamine/Phenol (Menthol/Lanolin/Calamine/Znox 113 Gm Tube) 1 applic TOPICAL BID [facility]; Protocol Last Admin: 02/08/21 22:13 Dose: 1 applic Documented by: Cholecalciferol (Cholecalciferol (Vit D3) 25 Mcg Tablet (1,000 Units)) 25 mcg PO DAILY [facility] Last Admin: 02/08/21 10:31 Dose: 25 mcg Documented by: Collagenase (Collagenase 30gm Tube) 1 applic TOPICAL DAILY [facility]; Protocol Last Admin: 02/08/21 10:41 Dose: Not Given Documented by: Doxepin HCl (Doxepin Hydrochloride 10 Mg Capsule) 10 mg PO QHS [facility] Last Admin: 02/08/21 21:31 Dose: 10 mg Documented by: Gabapentin (Gabapentin 100 Mg Capsule) 200 mg PO DAILY [facility] Last Admin: 02/08/21 10:32 Dose: 200 mg Documented by: Heparin Sodium (Porcine) (Heparin Injection (Vial) 5,000 Unit/Ml Vial) 5,000 unit SC Q12 [facility] Last Admin: 02/08/21 21:32 Dose: 5,000 unit Documented by: Sodium Chloride () 250 mls @ 15 mls/hr IV .[id number] PRN PRN Reason: Saline Flush Last Infusion: 02/08/21 19:00 Dose: Infused Documented by: Sodium Chloride () 250 mls @ 15 mls/hr IV .[id number] PRN PRN Reason: Additional IVPB Infusion Cefepime HCl 2 gm/ Sodium (Chloride) 100 mls @ 200 mls/hr IV BID [facility] Last Infusion: 02/08/21 21:58 Dose: Infused Documented by: Ipratropium [place] (Ipratropium 0.5 Mg/2.5 Ml Solution) 0.5 mg INHALATION Q4H.RT [facility] Last Admin: 02/09/21 06:28 Dose: 0.5 mg Documented by: Lactobacillus Acidophilus (Lactobacillus Acidophilus) 1 tablet PO BID [facility] Last Admin: 02/08/21 21:31 Dose: 1 tablet Documented by: Levothyroxine Sodium (Levothyroxine 137 Mcg Tablet) 137 mcg PO QHS [facility] Last Admin: 02/08/21 21:31 Dose: 137 mcg Documented by: Lidocaine HCl (Lidocaine 2% Viscous 15 Ml Udc) 5 ml PO Q3H PRN PRN Reason: MOUTH IRRITATION Last Admin: 02/07/21 17:46 Dose: 5 ml Documented by: Melatonin (Melatonin 3 Mg Tablet) 3 mg PO QHS PRN PRN PRN Reason: INSOMNIA Metoprolol Tartrate (Metoprolol Tartrate 100 Mg Tablet) 100 mg PO QHS [facility] Last Admin: 02/08/21 21:31 Dose: 100 mg Documented by: Metoprolol Tartrate (Metoprolol Tartrate 50 Mg Tablet) 50 mg PO DAILY [facility] Last Admin: 02/08/21 10:32 Dose: 50 mg Documented by: Morphine Sulfate (Morphine 4 Mg/Ml Syringe) 4 mg IV Q4H PRN PRN PRN Reason: Pain Score 6-10 Last Admin: 02/08/21 05:47 Dose: 4 mg Documented by: Nutritional Formula (Lactose Free) (Ensure Enlive 120 Ml Liquid) 120 ml PO 4X/DAY [facility] Last Admin: 02/08/21 22:13 Dose: 120 ml Documented by: Ondansetron HCl (Ondansetron 4 Mg/2 Ml Vial) 4 mg IV Q8H PRN PRN PRN Reason: NAUSEA/VOMITING Oxycodone HCl (Oxycodone 5 Mg Tablet) 10 mg PO Q4H PRN PRN PRN Reason: Pain Score 6-10 Last Admin: 02/09/21 08:00 Dose: 10 mg Documented by: Pentoxifylline (Pentoxifylline 400 Mg Tablet) 400 mg PO DAILY [facility] Last Admin: 02/08/21 10:33 Dose: 400 mg Documented by: Senna/Docusate Sodium (Senna/Docusate Sodium 1 Tablet) 2 tablet PO BID PRN PRN PRN Reason: Constipation Sodium Chloride (0.9% Saline Lock 10 Ml Syringe) 10 - 40 ml IV UD PRN PRN Reason: SALINE FLUSH Last Admin: 02/07/21 23:51 Dose: 10 ml Documented by: Vancomycin HCl (Vancomcyin 125 Mg/5 Ml Susp Po.Syringe) 125 mg PO Q6 [facility] Last Admin: 02/09/21 06:02 Dose: 125 mg Documented by: Discharge Diet: Low fat/ Low Cholesterol, 2000 mg Sodium Diet Discharge Activity: Return to Normal Activity Cleanse incision/area with: - Additional Dressing/Incision Instructions:: Wound care left leg: Cleanse the left lower leg wounds gently by pouring normal saline over area, gently pat dry (pt is very painful with dressings changes so will need pre-medicated). Apply nickel thick layer of santyl to the main ulcer (anterior lateral leg) only and place Adaptic to entire lower leg and dorsal foot. Cover with ABD pads and gently wrap with kerlix. Patient not able to tolerate bereket bandage. Change daily and prn drainage. Also keep bilateral heels offloaded at all times using pillows. Home Medications: Medications to take at Discharge Aspirin E.C. [Ecotrin] 81 mg PO DAILY 11/28/19 Doxepin HCl [Sinequan] 10 mg PO QHS 11/28/19 Levothyroxine [Synthroid] 137 mcg PO QHS 11/28/19 Pentoxifylline [Trental] 400 mg PO QHS 11/28/19 Simvastatin [Zocor] 40 mg PO QHS 11/28/19 Lactobacillus Acidophilus [Acidophilus] 2 tab PO BID 03/26/20 Metoprolol Tartrate 50 mg PO DAILY 03/26/20 Metoprolol Tartrate [Lopressor (beta stefany)] 100 mg PO QHS 03/26/20 cholecalciferol (vitamin D3) 25 mcg (1,000 unit) capsule 25 mcg PO DAILY 04/11/20 Acetaminophen [Tylenol Tablet] 650 mg PO Q6H PRN PRN tab 05/31/20 Cefepime HCl [Maxipime] 2 gm IV BID 14 Days #28 vial 02/07/21 Vancomcyin 125mg/5mL PO Liquid 125 mg PO Q6 14 Days #56 po.syringe 02/07/21 Collagenase [Santyl] 1 applic TOPICAL DAILY tube 02/09/21 Ensure Enlive 120 ml PO 4X/DAY liquid 02/09/21 Gabapentin [Neurontin] 200 mg PO DAILY capsule 02/09/21 Menthol/Lanolin/Calamine/Znox [Calmoseptine Ointment] 1 applic TOPICAL BID tube 02/09/21 Oxycodone [Oxyir] 5 mg PO Q4H PRN PRN 5 Days #20 tab 02/09/21 Following Prescriptions Were Given to Patient: Cefepime HCl [Maxipime] 2 gm IV BID 14 Days #28 vial Prescription Printed Oxycodone [Oxyir] 5 mg PO Q4H PRN PRN 5 Days #20 tab PRN Reason: Pain Score 6-10 Prescription Printed Vancomcyin 125mg/5mL PO Liquid 125 mg PO Q6 14 Days #56 po.syringe Prescription Printed Primary Care Physician: Boo Cotton MD [Primary Care Provider] - Please follow up with your Primary Care Physician in: within 2 weeks Please Follow Up With: Abby Cooper DPM When: 1 week at [facility] Please Follow Up With: Bryan Morel MD When: as scheduled on Wednesday02/11/2021 for vascular procedure [facility] Minutes spent on discharge:: 40 Patient Condition:: Stable Medical Necessity - Tobacco Use Smoking Status: Former smoker Meaningful Use Info Meaningful Use Diagnoses (Choose all that apply): None applicable Inpatient E&M: 14159 Disch Hosp
[2021-02-09] MEDS: Metoprolol Tartrate 50 MG Tablet PO (10:15)
[2021-02-09] MEDS: Menthol/Lanolin/Calamine/Znox 113 GM Tube 1 APPLIC TOPICAL (10:15)
[2021-02-09] MEDS: Heparin Injection (Vial) 5,000 UNIT/ML VIAL 5000 UNIT SC (10:15)
[2021-02-09] MEDS: Pentoxifylline 400 MG Tablet PO (10:18)
[2021-02-09] MEDS: Gabapentin 100 MG Capsule 200 MG PO (10:18)
[2021-02-09] MEDS: Cholecalciferol (VIT D3) 25 MCG TABLET (1,000 UNITS) PO (10:19)
[2021-02-09] MEDS: 0.9% Saline Lock 10 ML Syringe IV (11:00)
--- NOTE | 2021-02-09 11:31 | CPS ---
Pt's atrovent breathing treatment was held due to severe elevation of HR in mid-high 130s. Nurse Cari was notified of the med being not given.
== END 2021-02-09 11:40 | disposition skilled nursing facility (03) | DRG 602 ==
LOC: ED 19:27 → MS3 22:37
PROVIDERS: Nurse Practitioner Family; Admitting Provider Hospitalist; Emergency Provider Emergency Medicine; PCP Family Medicine; Visit Provider Internal Medicine
DX: L03.116 Cellulitis of left lower limb (principal); A41.9 Sepsis, unspecified organism; R65.20 Severe sepsis without septic shock; L97.922 Non-pressure chronic ulcer of unspecified part of left lower leg with fat layer exposed; M86.662 Other chronic osteomyelitis, left tibia and fibula; A04.72 Enterocolitis due to Clostridium difficile, not specified as recurrent; B96.5 Pseudomonas (aeruginosa) (mallei) (pseudomallei) as the cause of diseases classified elsewhere; B95.61 Methicillin susceptible Staphylococcus aureus infection as the cause of diseases classified elsewhere; B96.89 Other specified bacterial agents as the cause of diseases classified elsewhere; I73.89 Other specified peripheral vascular diseases; E78.5 Hyperlipidemia, unspecified; E87.6 Hypokalemia; I34.1 Nonrheumatic mitral (valve) prolapse; I10 Essential (primary) hypertension; E07.9 Disorder of thyroid, unspecified; G14 Postpolio syndrome; G89.29 Other chronic pain; G62.9 Polyneuropathy, unspecified; I87.2 Venous insufficiency (chronic) (peripheral); Z22.39 Carrier of other specified bacterial diseases; Z87.891 Personal history of nicotine dependence; Z79.82 Long term (current) use of aspirin; Z79.899 Other long term (current) drug therapy; Z98.51 Tubal ligation status
CPT/HCPCS: 36415; 73590; 73718; 80048; 80053; 80202; 83605; 85025; 85652; 86140; 87040; 87070; 87077; 87184; 87186; 87205; 87426; 93005; 94640; 94762; 97802; 97803; 99284; J7030; J7040; J7050; A4216; J2405

== ENCOUNTER 2021-02-26 09:30 | Outpatient (RCR) | payer MEDICARE, OTHER, SELFPAY ==
[2021-01-06 00:18] VITALS: BP 138/80; PULSE 108; RESP 18; TEMP 35.7
[2021-02-03 22:53] VITALS: BMI 27.1
[2021-02-26 09:37] VITALS: BP 156/69; PULSE 85; RESP 18; TEMP 37.1; BMI 27.1
--- NOTE | 2021-02-26 10:39 | PCM.WC.PN ---
(1) Ulcer of left lower extremity with fat layer exposed Status: Chronic Code(s): L97.922 - Non-pressure chronic ulcer of unspecified part of left lower leg with fat layer exposed (2) Localized edema Status: Chronic Code(s): R60.0 - Localized edema (3) Osteomyelitis of left fibula Status: Acute Qualifiers: Code(s): M86.9 - Osteomyelitis, unspecified (4) Cellulitis of left lower extremity Status: Resolved Code(s): L03.116 - Cellulitis of left lower limb (5) Chronic pain Status: Chronic Code(s): G89.29 - Other chronic pain Comment: decreased (6) Delayed wound healing Status: Chronic Code(s): T14.8XXD - Other injury of unspecified body region, subsequent encounter (7) Other specified peripheral vascular diseases Status: Chronic Code(s): I73.89 - Other specified peripheral vascular diseases Comment: bilateral lower extremity Type of Wound Date of Service: 02/26/21 Chief Complaint: Left leg ulcer History of Wound: This 70-year-old female with significant past medical history of polio with several medical sequela sustained a left leg ulcer that dates back to 2016. She was previously seen by vascular surgery. She had an angioplasty performed on 02-13-[address] Morel in which the aorta and iliac was successfully restored. Additional future stenting of the left limb will be considered. She denies fever, chills, nausea, vomiting. Her leg is less painful. She denies odor or redness. She is with her daughter today. She is currently residing in half-way facility in [facility]. She has a dressing applied with Santyl daily. She has not been using compression. She relates her leg is less painful and there is a red appearance to the wound with additional new skin peeling. She also went for prior consultation with orthopedic in regards to considering a below-knee amputation. She would like to proceed with wound care now that it looks a lot better from her revascularization intervention. She had additional IV antibiotics extended and had a meeting with Dr. De La Cruz earlier this week. Progress of Wound: Improving - Physical Exam Vital Signs Temp Pulse Resp BP 98.7 F 85 18 156/69 H 02/26/21 09:37 02/26/21 09:37 02/26/21 09:37 02/26/21 09:37 General: Alert, Oriented x3, Cooperative, No apparent distress Extremities: No cyanosis, Capillary Refill Less than 3 Seconds, No Calf Tenderness - Negative Hughes left, Diminished Peripheral Pulses, Edema - Mild to moderate bilateral Skin: Ulcer/ Wound - Significant improvement in ulcer base that is now granular with serosanguineous drainage. No purulence, erythema, odor, streaking. Adjacent skin is peeling and has improved perfusion with capillary fill time noted. Decreased pain with ulcer manipulation, - - The skin adjacent to the ulcer is atrophic and hairless Wound Measurements and Assessment WC - Nurse 1 - General Ulcer Measurement Start: 02/26/21 09:29 Freq: Status: Active Protocol: Activity Type Activity Date Activity User E-Sign Co-Sign Detail Recorded Client Recorded Date Recorded By Document 02/26/21 09:37 DL [id number] 02/26/21 09:48 DL 02/26/21 09:37 Wound Center Nurse 1 [Ulcer Assessment] #1 LLE -Current Size (cm) - Length 13 -Current Size (cm) - Width 15 -Current Size (cm) - Depth 0.2 -Total Square Cm 195 -Photo Taken Yes -Exudate Amt Medium -Exudate Type Serosanguineous -Wound Margin Indistinct, Non -Visible -Granulation Amt Medium (34-66%) -Granulation Quality Red -Necrosis Amt Medium (34-66%) -Necrotic Tissue Type Adherent Slough -Structure Exposed N/A -Texture (Susana-wound Skin Appearance) Localized Edema ,Scarring -Moisture (Susana-wound Skin Appearance Weeping ) -Color (Susana-wound Skin Appearance) Hemosiderin Staining -Temperature (Susana-wound Skin No Abnormality Appearance) (Pt Warm) -Tenderness on Palpation (Susana-wound Yes Skin Appearance) -Ulcer Cleansing Wound Cleanser -Foul Odor after Cleansing No -Anesthetic Used 4% Lidocaine Solution - Nurse 2 - General Ulcer CM Notes Start: 02/26/21 09:29 Freq: Status: Active Protocol: Activity Type Activity Date Activity User E-Sign Co-Sign Detail Recorded Client Recorded Date Recorded By Document 02/26/21 10:25 FELISHA [id number] 02/26/21 10:26 FELISHA 02/26/21 10:25 Wound Center Nurse 2 [Procedure/Treatment] -Correct Patient No -Correct Side, Site, Position No -Correct Procedure No -Procedure Performed No -Wound/Ulcer Outcome Not Healed [See Physician Procedure note for Specifics] Pain Scale: 0-10 Numeric [Pain] -Is Patient Pain Free? Yes Musculoskeletal: Muscle Wasting, Tenderness Neurological: Sensory exam intact to light touch and pain Psych/Mental Status: Normal Affect, Appropriate Debridement Note Post-Debridement Measurements/Treatment WC - Nurse 2 - General Ulcer CM Notes Start: 02/26/21 09:29 Freq: Status: Active Protocol: Activity Type Activity Date Activity User E-Sign Co-Sign Detail Recorded Client Recorded Date Recorded By Document 02/26/21 10:25 [id number] 02/26/21 10:26 FELISHA 02/26/21 10:25 Wound Center Nurse 2 #1 LLE -Correct Patient No -Correct Side, Site, Position No -Correct Procedure No -Procedure Performed No -Wound/Ulcer Outcome Not Healed Pain Scale: 0-10 Numeric Is Patient Pain Free? Yes Wound debrided: leg No debridement was completed today - refused Assessment/Plan Active Problems (Last Reviewed 02/04/21 @ 01:[address] Rupesh Jennings MD) Localized edema (Chronic) Osteomyelitis of left fibula (Acute) Chronic pain (Chronic) decreased Ulcer of left lower extremity with fat layer exposed (Chronic) Delayed wound healing (Chronic) Other specified peripheral vascular diseases (Chronic) bilateral lower extremity Assessment: Left leg ulcer with fat layer /partial fascial layer no longer exposed, stable. Peripheral vascular disease now status post angioplasty to aorta and iliac. C. difficile long-term, being treated with oral vancomycin under the management of infectious disease. 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 Leg edema. Venous insufficiency. Delayed healing. Malnutrition suspected Plan: I reviewed and discussed her case today. Debridement was not performed; she refuses today. I recommend changing the dressing with santyl daily with overlying adaptic. To wash with soap and water instead of just saline to reduce bioburden and prevent future recurrent infections. Her pain is significantly reduced since her arterial intervention. To follow-up with Dr. Morel as advised. It is noted she had angioplasty to the aorta and iliac level to reperfuse the left lower limb on 02-12-2021. Additional distal stenting also be considered. She was reassured no local signs of infection or purulence are noted today. She is under the management of Dr. De La Cruz, infectious disease physician who recently extended her antibiotic course. Management is appreciated the case was discussed today. We reviewed her ongoing main options which include a below the knee amputation, palliative program, versus wound healing now that recent improvement is noted with advanced wound healing product application. She like to proceed with operating room debridement and application of advanced wound healing product. I offered her amnio fill and she will be contacted by event marketing coordinator to get this scheduled promptly. She understands additional advanced wound healing products may be applied in the wound healing center this initial step goes well. Otherwise, I recommend proceeding with a below the knee amputation if she continues to fail conservative care. Is advised to better control her edema with intermittent elevation and muscular contraction of the involved post polio syndrome leg. I recommend Tubigrip application and she relates she only able to tolerate this part of the time. She is advised wearing Candelario wrap at least. To proceed with a proper control diet and nutrition supplementation to optimize healing. I answered all of her questions and explained the etiology of ulcer causes and the comprehensive wound healing plan. She was advised to return to clinic in 2 weeks or sooner if concerns. Surgical consents will be obtained at this time. It is noted she is with her daughter today who also helps with information gathering and plan. . The medical decision making level is moderate based on data including at least three of the following: review of prior external notes, review of a test, ordering a test, assessment requiring an independent historian. The medical decision making level iss moderate based on data including the discussion of management or test interpretation with another qualified health health care liaison or appropriate source. The problems addressed require a moderate decision making level which includes one or more chronic illnesses (w/ exacerbation, progression, or side effects), two or more stable chronic illnesses, one undiagnosed new problem w/ uncertain prognosis, one acute illness with systemic symptoms, or one acute complicated injury. Note: [email or web address] speech recognition national sales manager software was used to create portions of this document. Sound-alike and misspelled words, as well as other national sales manager errors may be contained in the documentation. . MACRA 2020: Reviewed today: Medications and allergies were reviewed and reconciled. Reviewed 11-13-2020: BMI 29.3. Blood pressure 156/59. The systolic over 120 elevated and she follow-up with her primary care physician. Diet and activity recommendations were reviewed to optimize ulcer healing and overall health. She received a flu vaccination. Is noted she was a former smoker and is not currently a tobacco user. She does not have a living will on file.
== END 2021-03-07 23:59 ==
LOC: WC 09:30
PROVIDERS: PCP Family Medicine; Referring Provider Podiatrist; Visit Provider Podiatrist
DX: L97.822 Non-pressure chronic ulcer of other part of left lower leg with fat layer exposed (principal); M86.162 Other acute osteomyelitis, left tibia and fibula; I87.2 Venous insufficiency (chronic) (peripheral); I73.9 Peripheral vascular disease, unspecified; R60.0 Localized edema; G89.29 Other chronic pain; Z86.12 Personal history of poliomyelitis
CPT/HCPCS: 99213; G0463

== ENCOUNTER → 2021-03-12 16:56 | Outpatient (CLI) | payer MEDICARE, OTHER, SELFPAY ==
[2021-03-12 14:18] VITALS: BMI 27.1
[2021-03-12 17:33] LABS: Absolute Lymphocyte Count 1.42 X10^3/uL (0.83-4.51); Absolute Neutrophil Count 4.6 X10^3/uL (2.0-7.7); Basophil# 0.07 X10^3/uL; Eosinophil# 0.53 X10^3/uL; Eosinophils% 7.4 % (0-5); Hematocrit 35.4 % (37-47); Hemoglobin 10.8 g/dL (12.0-15.0); Lymphocyte # 1.42 X10^3/ul (0.83-4.51); Lymphocyte % 19.7 % (19-41); Mean Corp Hgb Conc 30.5 g/dL (32-36); Mean Corpuscular Hgb 28.2 pg (27.0-32.0); Mean Corpuscular Volume 92.4 fL (81-99); Mean Platelet Vol. 8.9 fl (6.2-12.0); Monocyte# 0.56 X10^3/uL; Monocyte% 7.8 % (0-10); NRBC Flagged by Analyzer 0 % (0-5); Neutrophil # 4.57 X10^3/uL (2.7-7.7); Neutrophil % 63.3 % (47-70); Platelet Count 250 K/mm3 (150-450); RBC Distribution Width CV 16.5 % (11.6-14.6); RBC Distribution Width SD 56.6 fl (35.1-43.9); Red Blood Count 3.83 M/mm3 (4.2-5.4); White Blood Count 7.2 K/mm3 (4.4-11.0)
[2021-03-12 18:08] LABS: ALB/GLOB Ratio 0.6 RATIO (0.9-2.4); AST(SGOT) 13 U/L (15-37); Alanine Aminotransfer ALT/SGPT 13 U/L (13-56); Albumin, Serum 2.7 g/dL (3.2-5.0); Alkaline Phosphatase 114 U/L (45-117); Anion Gap 5 (5-15); BUN 10 mg/dL (7-18); BUN/Creat Ratio 12.8 RATIO (10-20); Calcium,Total 8.4 mg/dL (8.5-10.1); Chloride 110 mmol/L (98-107); Creatinine, Serum 0.78 mg/dL (0.55-1.02); EST Glomerular Filtration Rate 77 mL/min (>60); Est Glom Filt Rate - Afr Amer 93 mL/min (>60); Globulin 4.3 g/dL (2.2-4.2); Glucose 90 mg/dL (74-106); Potassium 3.3 mmol/L (3.5-5.1); Sodium Level 143 mmol/L (136-145)
== END ==
PROVIDERS: PCP Family Medicine; Referring Provider Family Medicine; Visit Provider Family Medicine
DX: Z01.818 Encounter for other preprocedural examination (principal); I87.2 Venous insufficiency (chronic) (peripheral); L97.922 Non-pressure chronic ulcer of unspecified part of left lower leg with fat layer exposed; L03.116 Cellulitis of left lower limb; A04.71 Enterocolitis due to Clostridium difficile, recurrent; I73.89 Other specified peripheral vascular diseases; R60.0 Localized edema; G89.29 Other chronic pain; G14 Postpolio syndrome; E66.3 Overweight; Z68.29 Body mass index [BMI] 29.0-29.9, adult; Z79.02 Long term (current) use of antithrombotics/antiplatelets; Z79.890 Hormone replacement therapy; Z79.899 Other long term (current) drug therapy; Z86.12 Personal history of poliomyelitis
CPT/HCPCS: 29445; 36415; 80053; 85025; 97597; 97598

== ENCOUNTER 2021-03-16 14:59 | Inpatient (IN) | payer MEDICARE, OTHER, SELFPAY ==
[2021-03-12 14:18] VITALS: BMI 27.1
[2021-03-16] VITALS (9 sets, daily range): BP systolic 119–176; BP diastolic 75–103; PULSE 56–80; RESP 17–22; TEMP 36.3–37.2; O2SAT 94–97; BMI 24.3; BMI 27.6
--- NOTE | 2021-03-16 15:11 | EKG12_ITS ---
Test Reason : Blood Pressure : / mmHG Vent. Rate : 056 BPM Atrial Rate : 056 BPM P-R Int : 114 ms QRS Dur : 056 ms QT Int : 428 ms P-R-T Axes : 047 033 021 degrees QTc Int : 413 ms Sinus bradycardia with Premature supraventricular complexes Otherwise normal ECG Confirmed by ANASTACIO OLIVAERS, VENKAT ([id number]), make up editor LIAM CORRIGAN ([id number]) on 03/17/2021 1:07:25 PM Referred By: DON Confirmed By:VENKAT CHAVES MD
--- NOTE | 2021-03-16 15:12 | CT_ITS ---
STUDY: CT BRAIN WITHOUT CONTRAST REASON FOR EXAM: Female, 70 years old. confusion RADIATION DOSAGE (If Supplied By Facility): CTDIvol = ( 44.99 ) mGy, DLP = ( 812.98 ) mGycm TECHNIQUE: Transaxial CT imaging of the brain was performed without administration of intravenous contrast material. Individualized dose optimization techniques were used for this CT. COMPARISON: No relevant priors. FINDINGS: Normal soft tissue structures. Normal calvarium. Normal size ventricles and extra-axial spaces for the patient''s age. Normal white matter tracts of the cerebral hemispheres. Normal basal ganglia and thalami. Normal brainstem. Normal cerebellum. There is no intracranial hemorrhage. There are no findings of an acute ischemic infarction. Normal visualized paranasal sinuses. CT/Brain/Head without Contrast IMPRESSION: Normal unenhanced CT scan of the brain. Electronically Signed: Beau Jacome MD ([place]) at 16:12 EDT , Service support ,
[2021-03-16 15:16] LABS: Bedside Glucose 95 mg/dL (70-110)
[2021-03-16] MEDS: 0.9% Normal Saline 1,000 ML 999 ML IV (15:33)
[2021-03-16 15:42] LABS: Absolute Neutrophil Count 4.6 X10^3/uL (2.0-7.7); Basophil# 0.07 X10^3/uL; Basophil% 1.1 % (0-1); Eosinophil# 0.16 X10^3/uL; Eosinophils% 2.5 % (0-5); Hematocrit 34.1 % (37-47); Hemoglobin 10.5 g/dL (12.0-15.0); Lymphocyte % 15.6 % (19-41); Mean Corp Hgb Conc 30.8 g/dL (32-36); Mean Corpuscular Hgb 28.2 pg (27.0-32.0); Mean Corpuscular Volume 91.7 fL (81-99); Mean Platelet Vol. 9.1 fl (6.2-12.0); Monocyte# 0.56 X10^3/uL; Monocyte% 8.7 % (0-10); NRBC Flagged by Analyzer 0 % (0-5); Neutrophil # 4.61 X10^3/uL (2.7-7.7); Neutrophil % 71.8 % (47-70); Platelet Count 207 K/mm3 (150-450); RBC Distribution Width CV 16.1 % (11.6-14.6); Red Blood Count 3.72 M/mm3 (4.2-5.4); White Blood Count 6.4 K/mm3 (4.4-11.0)
--- NOTE | 2021-03-16 15:45 | RAD_ITS ---
STUDY: X-RAY CHEST REASON FOR EXAM: Female, 70 years old. confusion TECHNIQUE: AP COMPARISON: 03/26/2020 FINDINGS: EKG leads project over the chest. Stable granuloma the right upper lobe. No airspace consolidation. There is no demonstrated pleural abnormality. Normal size heart. Normal mediastinum and jarvis. Normal visualized pulmonary arteries. Mild atherosclerosis of the aortic arch. No acute bony process. There is no demonstrated abnormality of the visualized soft tissue structures of the upper abdomen. RAD/Chest 1 View (Portable) IMPRESSION: Stable, nonacute portable x-ray examination of the chest. Electronically Signed: Beau Jaocme MD ([place]) at 16:07 EDT , Service support ,
--- NOTE | 2021-03-16 15:45 | EX.ED.DYSGE1 ---
HPI History of Present Illness Chief Complaint: Alt LOC Narrative Narrative: 70-year-old female with extensive past medical history presents with concern for altered mentation. Patient comes from home by EMS. Patient was recently discharged from halfway facility after being admitted to the hospital for C. difficile. Patient's family on scene states that they felt she was in pain and gave her a baclofen. States that at some point following she became confused. Patient cannot provide accurate history of present illness [facility] Medical History (Updated 03/16/21 @ 18:[address] Linden Rader, DO) C. difficile colitis Cellulitis of left leg Colitis Colonization status Delayed wound healing Diarrhea Former tobacco use HLD (hyperlipidemia) HTN (hypertension) Left leg pain Leg edema, left MVP (mitral valve prolapse) Other specified peripheral vascular diseases Pseudomonas aeruginosa colonization Sinus tachycardia Tachycardia Thyroid disorder Ulcer of left lower extremity with fat layer exposed Ulcer of left lower extremity, limited to breakdown of skin Venous insufficiency Home Medications aspirin 81 mg PO DAILY 11/28/19 [History Last Taken 02/03/21] doxepin 10 mg PO QHS 11/28/19 [History Last Taken 02/02/21 mg] levothyroxine 137 mcg PO QHS 11/28/19 [History Last Taken 02/02/21 mcg] pentoxifylline 400 mg PO QHS 11/28/19 [History Last Taken 02/02/21 mg] simvastatin 40 mg PO QHS 11/28/19 [History Last Taken 02/02/21] acidophilus-pectin, citrus 2 tab PO DAILY 03/26/20 [History Last Taken 02/03/21] metoprolol tartrate 50 mg PO DAILY 03/26/20 [History Last Taken 02/03/21] metoprolol tartrate 150 mg PO QHS 03/26/20 [History Last Taken 02/02/21] acetaminophen 650 mg PO Q6H PRN PRN tab 05/31/20 [Rx Last Taken Unknown] food supplemt, lactose-reduced 120 ml PO 4X/DAY liquid 02/09/21 [Rx Last Taken Unknown] menthol-zinc oxide 1 applic TOPICAL BID tube 02/09/21 [Rx Last Taken Unknown] cefepime IV BID 03/16/21 [History Last Taken Unknown] clopidogrel [Plavix] 75 mg PO DAILY 03/16/21 [History Last Taken Unknown] gabapentin 100 mg PO DAILY 03/16/21 [History Last Taken Unknown] vancomycin 125 mg PO 4X/DAY 03/16/21 [History Last Taken Unknown] Allergy/AdvReac Type Severity Reaction Status Date / Time naproxen [From Naprosyn] Allergy Rash Verified 03/16/21 15:05 Penicillins [PCN] Allergy Rash Verified 03/16/21 15:05 amoxicillin AdvReac Rash Verified 03/16/21 15:05 cephalexin [From Keflex] AdvReac Rash Verified 03/16/21 15:05 clotrimazole [From Lotrimin] AdvReac Rash Verified 03/16/21 15:05 diphenhydramine AdvReac Rash Verified 03/16/21 15:05 [From Benadryl] griseofulvin AdvReac Rash Verified 03/16/21 15:05 ibuprofen [From Motrin] AdvReac Rash Verified 03/16/21 15:05 miconazole AdvReac Rash Verified 03/16/21 15:05 [From Monistat 1 Combo Pack] propranolol [From Inderal LA] AdvReac Rash Verified 03/16/21 15:05 rofecoxib [From Vioxx] AdvReac Rash Verified 03/16/21 15:05 Sulfa (Sulfonamide AdvReac Rash Verified 03/16/21 15:05 Antibiotics) Family History Daughter Asthma Sister COPD (chronic obstructive pulmonary disease) Father COPD (chronic obstructive pulmonary disease) Heart disease Mother COPD (chronic obstructive pulmonary disease) Surgical History History of hip surgery Hx of knee surgery Hx of tubal ligation Social History Smoking Status: Former smoker second hand exposure: No alcohol intake: current alcohol intake frequency: holidays/special occasions only substance use type: does not use caffeine: Yes (some times) Type: tea what type of physical activity do you participate in: none frequency: does not exercise ROS ROS ED Review of Systems ROS Unobtainable: due to encephalopathy and due to mental status Hematologic/Lymphatic Hematologic/Lymphatic: Denies easy bleeding or easy bruising EXAM Physical Exam Const Vital Signs: 03/16/21 15:06 05/09/21 15:09 03/16/21 15:14 Temperature 98 F 98 F Temperature Source Axillary Axillary Pulse Rate 63 70 Respiratory Rate 18 20 H Respiratory Effort Normal Non-Labored Respiratory Pattern Normal Blood Pressure 119/84 H Blood Pressure Mean 95 Pulse Ox 95 94 Oxygen Delivery Method Room Air Room Air 03/16/21 16:01 03/16/21 16:35 03/16/21 17:00 Temperature 98.7 F 98.7 F 98.9 F Temperature Source Axillary Axillary Axillary Pulse Rate 80 80 Respiratory Rate 22 H 20 H Respiratory Effort Respiratory Pattern Blood Pressure 144/88 H 176/98 H Blood Pressure Mean 106 124 Pulse Ox 95 96 Oxygen Delivery Method Room Air Room Air 03/16/21 18:23 03/16/21 18:47 Temperature 97.9 F 98 F Temperature Source Temporal Axillary Pulse Rate 56 L 70 Respiratory Rate 17 20 H Respiratory Effort Respiratory Pattern Blood Pressure 176/98 H 150/103 H Blood Pressure Mean 124 118 Pulse Ox 96 96 Oxygen Delivery Method Room Air Room Air Positive well nourished and well developed General Appearance ED: well developed HEENT Reports TM's clear, moist mucous membranes and dry mucous membranes normocephalic and atraumatic Tympanic Membrane ED: Yes TM's clear Mouth ED: Yes dry mucous membranes Mouth: dry mucous membranes Eyes PERRL and EOMs intact bilaterally Neck no lymphadenopathy, supple and no JVD Chest Wall inspection of chest normal Resp normal respiratory effort and clear to auscultation bilaterally Cardio regular rate, S1 normal heart sound, S2 normal heart sound and no murmurs Peripheral Pulses: pulses 2+ throughout GI soft to palpation, non-tender and non-distended Back/Spine no CVA tenderness and no thoracic nor lumbar tenderness Extremity normal to inspection General Extremety ED: Negative for edema or tenderness General Extremity: Negative for edema Neuro Sensorium / Orientation: alert Psych Psych Narrative: Confused Skin Skin Narrative: Right hip abrasion. MDM MDM MDM Narrative Medical decision making narrative: Upon arrival patient's vital signs are within normal limits. No focal deficit. Patient is confused and has what appears to be a global encephalopathy. Lab work within normal limits other than chronic changes. CT brain negative. Chest x-ray interpreted by myself is negative. Radiology concurs EKG nonischemic with a negative troponin. Urine shows no evidence of infection. Patient was given 1 L of normal saline. Spoke with the hospitalist who is agreeable with admission and feels this may be secondary to polypharmacy. Patient admitted in stable condition. Lab Data Attestation: I reviewed the patient's lab results. Labs: Laboratory Results - last 24 hr 03/16/21 03/16/21 03/16/21 15:09 15:30 15:30 WBC 6.4 RBC 3.72 L Hgb 10.5 L Hct 34.1 L MCV 91.7 MCH 28.2 MCHC 30.8 L RDW Std Deviation 55.0 H RDW Coeff of Naseem 16.1 H Plt Count 207 MPV 9.1 Immature Gran % (Auto) 0.300 Neut % (Auto) 71.8 H Lymph % (Auto) 15.6 L Green % (Auto) 8.7 Eos % (Auto) 2.5 Baso % (Auto) 1.1 H Absolute Neuts (auto) 4.6 Absolute Lymphs (auto) 1.00 Nucleated RBC % 0 PT 15.8 H INR 1.3 APTT 33.1 Sodium Potassium Chloride Carbon Dioxide Anion Gap BUN Creatinine Estim Creat Clear Calc Est GFR (MDRD) Af Amer Est GFR (MDRD) Non-Af BUN/Creatinine Ratio Glucose Lactic Acid Calcium Total Bilirubin AST ALT Alkaline Phosphatase Ammonia Troponin I Total Protein Albumin Globulin Albumin/Globulin Ratio Urine Color Urine Clarity Urine pH Ur Specific [place] Urine Protein Urine Glucose (UA) Urine Ketones Urine Occult Blood Urine Nitrite Urine Bilirubin Urine Urobilinogen Ur Leukocyte Esterase Urine RBC Urine WBC Ur Squamous Epith Cells Urine Bacteria Hyaline Casts Urine Mucus POC Glucose 95 03/16/21 03/16/21 03/16/21 15:30 15:30 16:30 WBC RBC Hgb Hct MCV MCH MCHC RDW Std Deviation RDW Coeff of Naseem Plt Count MPV Immature Gran % (Auto) Neut % (Auto) Lymph % (Auto) Green % (Auto) Eos % (Auto) Baso % (Auto) Absolute Neuts (auto) Absolute Lymphs (auto) Nucleated RBC % PT INR APTT Sodium 145 Potassium 3.4 L Chloride 112 H Carbon Dioxide 24.0 Anion Gap 9 BUN 10 Creatinine 0.75 Estim Creat Clear Calc 43.91 Est GFR (MDRD) Af Amer 97 Est GFR (MDRD) Non-Af 80 BUN/Creatinine Ratio 13.3 Glucose 99 Lactic Acid 1.2 Calcium 8.2 L Total Bilirubin 0.40 AST 17 ALT 12 L Alkaline Phosphatase 108 Ammonia Troponin I < 0.015 Total Protein 6.5 Albumin 2.3 L Globulin 4.2 Albumin/Globulin Ratio 0.5 L Urine Color Yellow Urine Clarity Sl. Cloudy Urine pH 6.0 Ur Specific [place] 1.020 Urine Protein 100 H Urine Glucose (UA) Normal Urine Ketones 15 H Urine Occult Blood 250 H Urine Nitrite Negative Urine Bilirubin Negative Urine Urobilinogen Normal Ur Leukocyte Esterase Negative Urine RBC 25-50 SEEN Urine WBC 0 SEEN Ur Squamous Epith Cells 0-5 SEEN Urine Bacteria 0 SEEN Hyaline Casts 10-25 SEEN Urine Mucus 0 SEEN POC Glucose 03/16/21 18:20 WBC RBC Hgb Hct MCV MCH MCHC RDW Std Deviation RDW Coeff of Naseem Plt Count MPV Immature Gran % (Auto) Neut % (Auto) Lymph % (Auto) Green % (Auto) Eos % (Auto) Baso % (Auto) Absolute Neuts (auto) Absolute Lymphs (auto) Nucleated RBC % PT INR APTT Sodium Potassium Chloride Carbon Dioxide Anion Gap BUN Creatinine Estim Creat Clear Calc Est GFR (MDRD) Af Amer Est GFR (MDRD) Non-Af BUN/Creatinine Ratio Glucose Lactic Acid Calcium Total Bilirubin AST ALT Alkaline Phosphatase Ammonia 12.0 Troponin I Total Protein Albumin Globulin Albumin/Globulin Ratio Urine Color Urine Clarity Urine pH Ur Specific [place] Urine Protein Urine Glucose (UA) Urine Ketones Urine Occult Blood Urine Nitrite Urine Bilirubin Urine Urobilinogen Ur Leukocyte Esterase Urine RBC Urine WBC Ur Squamous Epith Cells Urine Bacteria Hyaline Casts Urine Mucus POC Glucose Radiography Chest X-Ray - ED: 1 View, Read by ED Physician, Read by Radiologist and Normal Diagnostic Testing: Radiology Impression Brain CT 03/16/21 15:12 IMPRESSION: Normal unenhanced CT scan of the brain. Electronically Signed: Beau Jacome MD ([place]) at 16:12 EDT , Service support , Chest X-Ray 03/16/21 15:45 IMPRESSION: Stable, nonacute portable x-ray examination of the chest. Electronically Signed: Beau Jacome MD ([place]) at 16:07 EDT , Service support , Rhythm Strip Rhythm Strip: Sinus bradycardia Rate: 56 Ectopy: None EKG Initial EKG: Attestation: I personally reviewed and interpreted this EKG as follows: Interpretation: No Acute Injury Pattern and Sinus Bradycardia Comments: Sinus bradycardia 56 bpm. VT interval 114 ms. QTC of 413 ms. Discharge Plan Triage Chief Complaint: Alt LOC ED Provider: Linden Rader Dx/Rx/DC Orders Clinical Impression: Encephalopathy acute Prescriptions: No Action levothyroxine 137 MCG tablet 137 mcg PO QHS RF: 0 doxepin 10 MG capsule 10 mg PO QHS RF: 0 aspirin 81 MG tablet 81 mg PO DAILY RF: 0 pentoxifylline 400 MG tablet 400 mg PO QHS RF: 0 simvastatin 40 MG tablet 40 mg PO QHS RF: 0 metoprolol tartrate 100 MG tablet 150 mg PO QHS RF: 0 metoprolol tartrate 50 MG tablet 50 mg PO DAILY RF: 0 acidophilus-pectin, citrus 1 TABLET tablet 2 tab PO DAILY RF: 0 acetaminophen 325 MG tablet 650 mg PO Q6H PRN PRN (Reason: Pain Score 1-10/Temp > 100.7 F) RF: 0 menthol-zinc oxide 1 APPLIC ointment 1 applic TOPICAL BID RF: 0 food supplemt, lactose-reduced 120 ML liquid 120 ml PO 4X/DAY RF: 0 clopidogrel [Plavix] 75 mg Tablet 75 mg PO DAILY RF: 0 gabapentin 100 MG capsule 100 mg PO DAILY RF: 0 cefepime 2 gram recon soln IV BID RF: 0 vancomycin 125 mg capsule 125 mg PO 4X/DAY RF: 0 Primary Care Provider: Boo Cotton Referrals: Boo Cotton MD [Primary Care Provider] - Disposition Disposition: Acute Care [facility]
[2021-03-16 16:00] LABS: International Normalized Ratio 1.3; Prothrombin Time (Protime)PT. 15.8 SECONDS (11.7-14.9)
[2021-03-16 16:01] LABS: Partial Thromboplast Time 33.1 Seconds (24.1-36.2)
[2021-03-16 16:03] LABS: Lactic Acid 1.2 mmol/L (0.4-1.9)
[2021-03-16 16:05] LABS: ALB/GLOB Ratio 0.5 RATIO (0.9-2.4); AST(SGOT) 17 U/L (15-37); Alanine Aminotransfer ALT/SGPT 12 U/L (13-56); Albumin, Serum 2.3 g/dL (3.2-5.0); Alkaline Phosphatase 108 U/L (45-117); Anion Gap 9 (5-15); BUN 10 mg/dL (7-18); BUN/Creat Ratio 13.3 RATIO (10-20); Calcium,Total 8.2 mg/dL (8.5-10.1); Chloride 112 mmol/L (98-107); Creatinine, Serum 0.75 mg/dL (0.55-1.02); EST Glomerular Filtration Rate 80 mL/min (>60); Est Glom Filt Rate - Afr Amer 97 mL/min (>60); Estimated Creatinine Clearance 43.91 ml/min; Globulin 4.2 g/dL (2.2-4.2); Glucose 99 mg/dL (74-106); Potassium 3.4 mmol/L (3.5-5.1); Protein, Total 6.5 g/dL (6.4-8.2); Sodium Level 145 mmol/L (136-145)
[2021-03-16 16:36] LABS: Bacteria 0 SEEN /hpf (None Seen); Mucous, Urine 0 SEEN /hpf (<or=2+); White Blood Cells 0 SEEN /hpf (0-5)
[2021-03-16 16:39] LABS: Color, Urine Yellow (Yellow); Glucose, Dipstick Normal (Normal); Ketone-Dipstick 15 mg/dl (Negative); Leukocyte Esterase-Dipstick Negative /ul (Negative); Nitrite-Dipstick Negative (Negative); Occult Blood-Urine 250 /ul (Negative); Protein-Dipstick 100 mg/dl (Negative); Urine Bilirubin Dipstick Negative (Negative); Urine Clarity Sl. Cloudy (Clear); Urine Urobilinogen Normal (Normal)
[2021-03-16 16:45] LABS: Hyaline Cast 10-25 SEEN /lpf (0-5); Red Blood Cells-Urine 25-50 SEEN /hpf (0-5); Squamous Epithelial Cells - UA 0-5 SEEN /hpf (5-10)
--- NOTE | 2021-03-16 18:24 | HP.PCM_ITS ---
Documented by User: JACOB Coley 03/16/21 18:50 HPI - General HPI Narrative LUCIE DUPONT, is a 70 F who presents today for altered mental status. Patient currently living at home after a stay at a long-term facility for C. difficile and left lower extremity ulcer for which she follows with Dr. Cooper. Patient family reports that patient was acting like she was in pain at home and they gave her a dose of baclofen after which she became confused. Patient is unable to answer questions when asked but does have her eyes open and will occasionally make a moaning noise. [facility] Medical History (Updated 03/16/21 @ 18:[address] Linden Rader, DO) C. difficile colitis Cellulitis of left leg Colitis Colonization status Delayed wound healing Diarrhea Former tobacco use HLD (hyperlipidemia) HTN (hypertension) Left leg pain Leg edema, left MVP (mitral valve prolapse) Other specified peripheral vascular diseases Pseudomonas aeruginosa colonization Sinus tachycardia Tachycardia Thyroid disorder Ulcer of left lower extremity with fat layer exposed Ulcer of left lower extremity, limited to breakdown of skin Venous insufficiency Home Medications aspirin 81 mg PO DAILY 11/28/19 [History Last Taken 02/03/21] doxepin 10 mg PO QHS 11/28/19 [History Last Taken 02/02/21 mg] levothyroxine 137 mcg PO QHS 11/28/19 [History Last Taken 02/02/21 mcg] pentoxifylline 400 mg PO QHS 11/28/19 [History Last Taken 02/02/21 mg] simvastatin 40 mg PO QHS 11/28/19 [History Last Taken 02/02/21] acidophilus-pectin, citrus 2 tab PO DAILY 03/26/20 [History Last Taken 02/03/21] metoprolol tartrate 50 mg PO DAILY 03/26/20 [History Last Taken 02/03/21] metoprolol tartrate 150 mg PO QHS 03/26/20 [History Last Taken 02/02/21] acetaminophen 650 mg PO Q6H PRN PRN tab 05/31/20 [Rx Last Taken Unknown] food supplemt, lactose-reduced 120 ml PO 4X/DAY liquid 02/09/21 [Rx Last Taken Unknown] menthol-zinc oxide 1 applic TOPICAL BID tube 02/09/21 [Rx Last Taken Unknown] cefepime IV BID 03/16/21 [History Last Taken Unknown] clopidogrel [Plavix] 75 mg PO DAILY 03/16/21 [History Last Taken Unknown] gabapentin 100 mg PO DAILY 03/16/21 [History Last Taken Unknown] vancomycin 125 mg PO 4X/DAY 03/16/21 [History Last Taken Unknown] Allergy/AdvReac Type Severity Reaction Status Date / Time naproxen [From Naprosyn] Allergy Rash Verified 03/16/21 15:05 Penicillins [PCN] Allergy Rash Verified 03/16/21 15:05 amoxicillin AdvReac Rash Verified 03/16/21 15:05 cephalexin [From Keflex] AdvReac Rash Verified 03/16/21 15:05 clotrimazole [From Lotrimin] AdvReac Rash Verified 03/16/21 15:05 diphenhydramine AdvReac Rash Verified 03/16/21 15:05 [From Benadryl] griseofulvin AdvReac Rash Verified 03/16/21 15:05 ibuprofen [From Motrin] AdvReac Rash Verified 03/16/21 15:05 miconazole AdvReac Rash Verified 03/16/21 15:05 [From Monistat 1 Combo Pack] propranolol [From Inderal LA] AdvReac Rash Verified 03/16/21 15:05 rofecoxib [From Vioxx] AdvReac Rash Verified 03/16/21 15:05 Sulfa (Sulfonamide AdvReac Rash Verified 03/16/21 15:05 Antibiotics) Family History Daughter Asthma Sister COPD (chronic obstructive pulmonary disease) Father COPD (chronic obstructive pulmonary disease) Heart disease Mother COPD (chronic obstructive pulmonary disease) Surgical History History of hip surgery Hx of knee surgery Hx of tubal ligation Social History Smoking Status: Former smoker second hand exposure: No alcohol intake: current alcohol intake frequency: holidays/special occasions only substance use type: does not use caffeine: Yes (some times) Type: tea what type of physical activity do you participate in: none frequency: does not exercise ROS Review of Systems ROS Unobtainable: due to mental status Vital Signs Vital Signs Vital Signs: 03/16/21 15:06 03/16/21 15:09 03/16/21 15:14 Temperature 98 F 98 F Temperature Source Axillary Axillary Pulse Rate 63 70 Respiratory Rate 18 20 H Respiratory Effort Normal Non-Labored Respiratory Pattern Normal Blood Pressure 119/84 H Blood Pressure Mean 95 Pulse Ox 95 94 Oxygen Delivery Method Room Air Room Air 03/16/21 16:01 03/16/21 16:35 03/16/21 17:00 Temperature 98.7 F 98.7 F 98.9 F Temperature Source Axillary Axillary Axillary Pulse Rate 80 80 Respiratory Rate 22 H 20 H Respiratory Effort Respiratory Pattern Blood Pressure 144/88 H 176/98 H Blood Pressure Mean 106 124 Pulse Ox 95 96 Oxygen Delivery Method Room Air Room Air 03/16/21 18:23 Temperature 97.9 F Temperature Source Temporal Pulse Rate 56 L Respiratory Rate 17 Respiratory Effort Respiratory Pattern Blood Pressure 176/98 H Blood Pressure Mean 124 Pulse Ox 96 Oxygen Delivery Method Room Air Physical Exam Const General Appearance: lethargic Orientation / Consciousness: awake and confused Exam Limitations: altered mental status HEENT normocephalic and head/scalp atraumatic Eyes PERRL Neck supple and no JVD General: trachea midline Lymph Lymphatic: no lymphadenopathy noted Resp normal respiratory effort, normal air movement and clear to auscultation bilaterally Cardio regular rhythm, S1 normal heart sound and S2 normal heart sound Rate: bradycardia GI normal to inspection, nondistended, normoactive bowel sounds and soft to palpation Palpation: tender Extremity normal capillary refill and no clubbing, cyanosis or edema Peripheral Pulses: Yes radial pulses present, posterior tibial pulses present and dorsalis pedis pulses present Left Lower Extremity: lower leg inspection (Large chronic ulcer) Skin Wounds: wounds noted drainage green and yellow Neuro Neuro Narrative: Patient unable to follow commands Lab / Micro Data Result Diagrams: 03/16/21 15:30 03/16/21 15:30 Labs: Laboratory Results - last 24 hr 03/16/21 03/16/21 03/16/21 15:09 15:30 15:30 WBC 6.4 RBC 3.72 L Hgb 10.5 L Hct 34.1 L MCV 91.7 MCH 28.2 MCHC 30.8 L RDW Std Deviation 55.0 H RDW Coeff of Naseem 16.1 H Plt Count 207 MPV 9.1 Immature Gran % (Auto) 0.300 Neut % (Auto) 71.8 H Lymph % (Auto) 15.6 L [place] % (Auto) 8.7 Eos % (Auto) 2.5 Baso % (Auto) 1.1 H Absolute Neuts (auto) 4.6 Absolute Lymphs (auto) 1.00 Nucleated RBC % 0 PT 15.8 H INR 1.3 APTT 33.1 Sodium Potassium Chloride Carbon Dioxide Anion Gap BUN Creatinine Estim Creat Clear Calc Est GFR (MDRD) Af Amer Est GFR (MDRD) Non-Af BUN/Creatinine Ratio Glucose Lactic Acid Calcium Total Bilirubin AST ALT Alkaline Phosphatase Troponin I Total Protein Albumin Globulin Albumin/Globulin Ratio Urine Color Urine Clarity Urine pH Ur Specific [place] Urine Protein Urine Glucose (UA) Urine Ketones Urine Occult Blood Urine Nitrite Urine Bilirubin Urine Urobilinogen Ur Leukocyte Esterase Urine RBC Urine WBC Ur Squamous Epith Cells Urine Bacteria Hyaline Casts Urine Mucus POC Glucose 95 03/16/21 03/16/21 03/16/21 15:30 15:30 16:30 WBC RBC Hgb Hct MCV MCH MCHC RDW Std Deviation RDW Coeff of Naseem Plt Count MPV Immature Gran % (Auto) Neut % (Auto) Lymph % (Auto) [place] % (Auto) Eos % (Auto) Baso % (Auto) Absolute Neuts (auto) Absolute Lymphs (auto) Nucleated RBC % PT INR APTT Sodium 145 Potassium 3.4 L Chloride 112 H Carbon Dioxide 24.0 Anion Gap 9 BUN 10 Creatinine 0.75 Estim Creat Clear Calc 43.91 Est GFR (MDRD) Af Amer 97 Est GFR (MDRD) Non-Af 80 BUN/Creatinine Ratio 13.3 Glucose 99 Lactic Acid 1.2 Calcium 8.2 L Total Bilirubin 0.40 AST 17 ALT 12 L Alkaline Phosphatase 108 Troponin I < 0.015 Total Protein 6.5 Albumin 2.3 L Globulin 4.2 Albumin/Globulin Ratio 0.5 L Urine Color Yellow Urine Clarity Sl. Cloudy Urine pH 6.0 Ur Specific [place] 1.020 Urine Protein 100 H Urine Glucose (UA) Normal Urine Ketones 15 H Urine Occult Blood 250 H Urine Nitrite Negative Urine Bilirubin Negative Urine Urobilinogen Normal Ur Leukocyte Esterase Negative Urine RBC 25-50 SEEN Urine WBC 0 SEEN Ur Squamous Epith Cells 0-5 SEEN Urine Bacteria 0 SEEN Hyaline Casts 10-25 SEEN Urine Mucus 0 SEEN POC Glucose Radiology Impression Brain CT 03/16/21 15:12 IMPRESSION: Normal unenhanced CT scan of the brain. Electronically Signed: Beau Jacome MD ([place]) at 16:12 EDT , Service support , Chest X-Ray 03/16/21 15:45 IMPRESSION: Stable, nonacute portable x-ray examination of the chest. Electronically Signed: Beau Jacome MD ([place]) at 16:07 EDT , Service support , Assessment & Plan Assessment/Plan (1) Altered mental status: QUALIFIERS: Altered mental status type: unspecified Qualified Code(s): R41.82 - Altered mental status, unspecified (2) Hypokalemia: (3) Cellulitis of left lower extremity: (4) HLD (hyperlipidemia): QUALIFIERS: Hyperlipidemia type: unspecified Qualified Code(s): E78.5 - Hyperlipidemia, unspecified (5) HTN (hypertension): QUALIFIERS: Hypertension type: essential hypertension Qualified Code(s): I10 - Essential (primary) hypertension (6) Thyroid disorder: (7) Chronic pain: QUALIFIERS: Chronic pain type: other chronic pain Qualified Code(s): G89.29 - Other chronic pain (8) Pseudomonas aeruginosa colonization: (9) History of Clostridium difficile colitis: PLAN: 1. Altered mental status -Most likely related to chronic pain medication regimen due to the fact that patient became worse after given baclofen -Admit to PCU for cardiac monitoring -PT and OT to eval and treat -N.p.o. at this time due to patient's mental status -Maintain urinary catheter that was inserted in ER -CBC, CMP, phosphorus in a.m. 2. Hypokalemia -LR at 100ml/hr -Trend CMP daily -Will check magnesium 3. Cellulitis of left lower extremity -Podiatry and infectious disease consulted -Patient not currently on antibiotics at this time having completed course from previous admission. -Will continue Trental for vascular insufficiency due to chronic wound 4. Hyperlipidemia -Continue simvastatin 5. Hypertension -Continue metoprolol 6. Thyroid disorder -Continue levothyroxine -Obtain TSH level in a.m. 7. Chronic pain -Continue gabapentin, hold doxepin and baclofen. 8. Pseudomonas aeruginosa colonization -Blood cultures obtained 9. History of C. difficile colitis -As patient was recently hospitalized with C. difficile we will repeat C. difficile PCR -Special precautions for C. difficile pending results of stool testing DVT Prophylaxis-subcu Lovenox This patient was seen by Elle Vigil NP-C under the supervision of Dr. Dill Documented by User: Dr. Anthony Dill MD 03/16/21 19:05 HPI - General General Date of Admission: 03/16/21 Chief Complaint: Altered mental status, probably recent, unclear HPI Narrative 70-year-old female with multiple comorbidities and recurrent admission was brought in by EMS for altered mental status. Patient was recently discharged from SNF. She was discharged on 02/09/2021 on 2 weeks of IV cefepime and p.o. 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 As per ER physician she was in pain and given baclofen. She is also on doxepin, gabapentin multiple medications at home. Has left arm PICC line with patency and good IV flow. In ED, no fever or chills. No tachycardia. No hypoxia. [facility] Medical History (Updated 03/16/21 @ 18:[address] Linden Rader, DO) C. difficile colitis Cellulitis of left leg Colitis Colonization status Delayed wound healing Diarrhea Former tobacco use HLD (hyperlipidemia) HTN (hypertension) Left leg pain Leg edema, left MVP (mitral valve prolapse) Other specified peripheral vascular diseases Pseudomonas aeruginosa colonization Sinus tachycardia Tachycardia Thyroid disorder Ulcer of left lower extremity with fat layer exposed Ulcer of left lower extremity, limited to breakdown of skin Venous insufficiency Home Medications aspirin 81 mg PO DAILY 11/28/19 [History Last Taken 02/03/21] doxepin 10 mg PO QHS 11/28/19 [History Last Taken 02/02/21 mg] levothyroxine 137 mcg PO QHS 11/28/19 [History Last Taken 02/02/21 mcg] pentoxifylline 400 mg PO QHS 11/28/19 [History Last Taken 02/02/21 mg] simvastatin 40 mg PO QHS 11/28/19 [History Last Taken 02/02/21] acidophilus-pectin, citrus 2 tab PO DAILY 03/26/20 [History Last Taken 02/03/21] metoprolol tartrate 50 mg PO DAILY 03/26/20 [History Last Taken 02/03/21] metoprolol tartrate 150 mg PO QHS 03/26/20 [History Last Taken 02/02/21] acetaminophen 650 mg PO Q6H PRN PRN tab 05/31/20 [Rx Last Taken Unknown] food supplemt, lactose-reduced 120 ml PO 4X/DAY liquid 02/09/21 [Rx Last Taken Unknown] menthol-zinc oxide 1 applic TOPICAL BID tube 02/09/21 [Rx Last Taken Unknown] cefepime IV BID 03/16/21 [History Last Taken Unknown] clopidogrel [Plavix] 75 mg PO DAILY 03/16/21 [History Last Taken Unknown] gabapentin 100 mg PO DAILY 03/16/21 [History Last Taken Unknown] vancomycin 125 mg PO 4X/DAY 03/16/21 [History Last Taken Unknown] Allergy/AdvReac Type Severity Reaction Status Date / Time naproxen [From Naprosyn] Allergy Rash Verified 03/16/21 15:05 Penicillins [PCN] Allergy Rash Verified 03/16/21 15:05 amoxicillin AdvReac Rash Verified 03/16/21 15:05 cephalexin [From Keflex] AdvReac Rash Verified 03/16/21 15:05 clotrimazole [From Lotrimin] AdvReac Rash Verified 03/16/21 15:05 diphenhydramine AdvReac Rash Verified 03/16/21 15:05 [From Benadryl] griseofulvin AdvReac Rash Verified 03/16/21 15:05 ibuprofen [From Motrin] AdvReac Rash Verified 03/16/21 15:05 miconazole AdvReac Rash Verified 03/16/21 15:05 [From Monistat 1 Combo Pack] propranolol [From Inderal LA] AdvReac Rash Verified 03/16/21 15:05 rofecoxib [From Vioxx] AdvReac Rash Verified 03/16/21 15:05 Sulfa (Sulfonamide AdvReac Rash Verified 03/16/21 15:05 Antibiotics) Family History Daughter Asthma Sister COPD (chronic obstructive pulmonary disease) Father COPD (chronic obstructive pulmonary disease) Heart disease Mother COPD (chronic obstructive pulmonary disease) Surgical History History of hip surgery Hx of knee surgery Hx of tubal ligation Social History Smoking Status: Former smoker second hand exposure: No alcohol intake: current alcohol intake frequency: holidays/special occasions only substance use type: does not use caffeine: Yes (some times) Type: tea what type of physical activity do you participate in: none frequency: does not exercise ROS ROS Narrative 12 ROS unobtainable as patient is currently nonverbal, mostly eyes closed and not interactive. Physical Exam Narrative General: Drowsy, lethargic, obtunded. Frequently closes her eyes. HEENT: Atraumatic, PERRLA, EOMI, Normocephalic Oral: Oral mucosa dry. No Gingival or Mucosal Lesions/ Ulcerations Neck: Supple, No JVD, Negative Carotid Bruits Lungs: Air entry diminished in bilateral lung bases. No crepitation/rhonchi/tachypnea or hypoxia. Cardiovascular: Sinus bradycardia, Normal S1, Normal S2, No murmurs Abdomen: Bowel Sounds Present, Soft, Non Tender, Non-Distended : [place] catheter inserted in ED. Clear urine. No renal angle tenderness. No suprapubic tenderness. Extremities: No edema, Capillary Refill Less than 3 Seconds Skin: Left leg open debridement wound. Dressing covered with yellowish-green exudate. Tenderness present in left leg.. Musculoskeletal: ROM restricted. 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 Moderate muscle atrophy of extremities. Neurological: Cranial nerves II-XII grossly intact, Deep Tendon Reflexes 2+/4 and Symmetrical, Neuro grossly intact Psych/Mental Status: Not interactive. Flat affect. Lab / Micro Data Result Diagrams: 03/16/21 15:30 03/16/21 15:30 Assessment & Plan Assessment/Plan (1) Hypokalemia: (2) Encephalopathy acute: PLAN: This patient was seen in conjunction with LIZZETH Almeida. I have independently interviewed and examined the patient and reviewed pertinent history, examination findings, laboratory and plan of management. I have reviewed the note and agree with the documented findings with the few additional points. In brief, patient is admitted for confusional state, altered mental status, obtunded probably due to polypharmacy especially baclofen, doxepin and other medications. Patient is being admitted in PCU. We will keep n.p.until patient wakes up o. Patient looks dehydrated therefore LR 100 mL/h for 2 L. Patient has left arm PICC line but does not look thrombosed, tender or infected. Blood cultures x2 and urine culture sent. UA and urine not suggestive of UTI. Chest x-ray not suggestive of acute abnormality With no leukocytosis. ID and podiatry consult. Stool for C. difficile including toxin assay ordered. Wait for cultures before ordering antibiotics. Clinically does not show any acute signs or symptoms of infection. Hold sedative or tranquilizer medications. Mild hypokalemia: Potassium getting replaced. Check magnesium and phosphorus. Recent diagnosis of t acute on chronic left fibular osteomyelitis with cellulitis and recurrent C. difficile: As mentioned above Other multiple comorbidities include hypertension, dyslipidemia, hypothyroidism, chronic pain. CODE STATUS/advanced directive: Patient is not awake to discuss about advanced directive. No living will or advanced directive in the chart. I have discussed my assessment with LIZZETH Almeida and orders have been reviewed. (3) Osteomyelitis of left fibula: Visit Charges Inpatient E&M: 56108 Init Hosp L3
--- NOTE | 2021-03-16 18:50 | ED.RN ---
spoke with Ghislaine, about pt status and admission status
[2021-03-16 18:58] LABS: Magnesium 1.9 mg/dL (1.6-2.6)
--- NOTE | 2021-03-16 19:12 | NURSING ---
lizette her daughter called with bed assignment
[2021-03-16] MEDS: Lactated Ringers 1,000 ML 100 ML IV (20:19)
[2021-03-16] MEDS: Potassium Chloride 20mEq/100mL 20 MEQ/100 ML IV.SOLN. 100 MEQ IV BOLUS (20:37)
[2021-03-16] MEDS: 0.9% Saline Lock 10 ML Syringe IV (22:12)
[2021-03-16] MEDS: Enoxaparin 40 MG/0.4 ML Syringe SC (22:12)
[2021-03-17] VITALS (12 sets, daily range): BP systolic 134–170; BP diastolic 70–115; PULSE 67–103; RESP 15–19; TEMP 36.5–37.1; O2SAT 96–98
[2021-03-17 05:56] LABS: Absolute Lymphocyte Count 1.08 X10^3/uL (0.83-4.51); Absolute Neutrophil Count 4.5 X10^3/uL (2.0-7.7); Basophil# 0.06 X10^3/uL; Eosinophil# 0.09 X10^3/uL; Eosinophils% 1.4 % (0-5); Hematocrit 32.7 % (37-47); Hemoglobin 9.6 g/dL (12.0-15.0); Lymphocyte # 1.08 X10^3/ul (0.83-4.51); Lymphocyte % 17.4 % (19-41); Mean Corp Hgb Conc 29.4 g/dL (32-36); Mean Corpuscular Hgb 29.4 pg (27.0-32.0); Mean Corpuscular Volume 100.3 fL (81-99); Monocyte# 0.47 X10^3/uL; Monocyte% 7.6 % (0-10); NRBC Flagged by Analyzer 0 % (0-5); Neutrophil % 72.4 % (47-70); Platelet Count 156 K/mm3 (150-450); RBC Distribution Width CV 16.4 % (11.6-14.6); RBC Distribution Width SD 60.5 fl (35.1-43.9); Red Blood Count 3.26 M/mm3 (4.2-5.4); White Blood Count 6.2 K/mm3 (4.4-11.0)
[2021-03-17] MEDS: Lactated Ringers 1,000 ML 100 ML IV (06:15)
[2021-03-17 07:17] LABS: ALB/GLOB Ratio 0.5 RATIO (0.9-2.4); AST(SGOT) 17 U/L (15-37); Alanine Aminotransfer ALT/SGPT 9 U/L (13-56); Alkaline Phosphatase 96 U/L (45-117); Anion Gap 9 (5-15); BUN 10 mg/dL (7-18); BUN/Creat Ratio 15.6 RATIO (10-20); Chloride 116 mmol/L (98-107); Creatinine, Serum 0.64 mg/dL (0.55-1.02); EST Glomerular Filtration Rate 97 mL/min (>60); Est Glom Filt Rate - Afr Amer 117 mL/min (>60); Estimated Creatinine Clearance 49.77 ml/min; Globulin 3.7 g/dL (2.2-4.2); Glucose 80 mg/dL (74-106); Phosphorus 2.6 mg/dL (2.5-4.9); Potassium 3.3 mmol/L (3.5-5.1); Protein, Total 5.7 g/dL (6.4-8.2); Sodium Level 144 mmol/L (136-145); Thyroid Stim Hormone (TSH) 3.17 uIU/mL (0.358-3.74)
[2021-03-17] MEDS: Menthol/Lanolin/Calamine/Znox 113 GM Tube 1 APPLIC TOPICAL (10:38)
[2021-03-17] MEDS: Enoxaparin 40 MG/0.4 ML Syringe SC (10:38)
[2021-03-17] MEDS: Nystatin Powder 15gm Bottle 1 APPLIC TOPICAL (10:39)
--- NOTE | 2021-03-17 12:37 | PCM.PN.HOSP ---
Subjective Subjective: Patient was seen and examined. She is still confused. Not able to express herself well. She denies pain but looks uncomfortable. Objective Data Objective Data Vital Signs: Vital Signs Temp Pulse Resp BP Pulse Ox 98.0 F 91 19 H 141/75 H 98 03/17/21 12:00 03/17/21 12:00 03/17/21 12:00 03/17/21 12:00 03/17/21 12:00 Oxygen Delivery Method Room Air Weight: 62 kg Body Mass Index (BMI) 27.6 Finger Stick Blood Glucose 95 Intake & Output: Intake and Output for Last 24 Hours 03/15/21 03/16/21 03/17/21 23:59 23:59 23:59 Intake Total 1100 / 1100 993.33 / 993.33 Output Total 425 / 425 Balance 1100 / 875 568.33 / 568.33 Lab / Micro Data Result Diagrams: 03/17/21 05:40 03/17/21 05:40 Labs: Laboratory Results - last 24 hr 03/16/21 03/16/21 03/16/21 15:09 15:30 15:30 WBC 6.4 RBC 3.72 L Hgb 10.5 L Hct 34.1 L MCV 91.7 MCH 28.2 MCHC 30.8 L RDW Std Deviation 55.0 H RDW Coeff of Naseem 16.1 H Plt Count 207 MPV 9.1 Immature Gran % (Auto) 0.300 Neut % (Auto) 71.8 H Lymph % (Auto) 15.6 L Harmon % (Auto) 8.7 Eos % (Auto) 2.5 Baso % (Auto) 1.1 H Absolute Neuts (auto) 4.6 Absolute Lymphs (auto) 1.00 Nucleated RBC % 0 PT 15.8 H INR 1.3 APTT 33.1 Sodium Potassium Chloride Carbon Dioxide Anion Gap BUN Creatinine Estim Creat Clear Calc Est GFR (MDRD) Af Amer Est GFR (MDRD) Non-Af BUN/Creatinine Ratio Glucose Lactic Acid Calcium Phosphorus Magnesium Total Bilirubin AST ALT Alkaline Phosphatase Ammonia Troponin I Total Protein Albumin Globulin Albumin/Globulin Ratio TSH Urine Color Urine Clarity Urine pH Ur Specific [place] Urine Protein Urine Glucose (UA) Urine Ketones Urine Occult Blood Urine Nitrite Urine Bilirubin Urine Urobilinogen Ur Leukocyte Esterase Urine RBC Urine WBC Ur Squamous Epith Cells Urine Bacteria Hyaline Casts Urine Mucus POC Glucose 95 03/16/21 03/16/21 03/16/21 15:30 15:30 15:30 WBC RBC Hgb Hct MCV MCH MCHC RDW Std Deviation RDW Coeff of Naseem Plt Count MPV Immature Gran % (Auto) Neut % (Auto) Lymph % (Auto) Harmon % (Auto) Eos % (Auto) Baso % (Auto) Absolute Neuts (auto) Absolute Lymphs (auto) Nucleated RBC % PT INR APTT Sodium 145 Potassium 3.4 L Chloride 112 H Carbon Dioxide 24.0 Anion Gap 9 BUN 10 Creatinine 0.75 Estim Creat Clear Calc 43.91 Est GFR (MDRD) Af Amer 97 Est GFR (MDRD) Non-Af 80 BUN/Creatinine Ratio 13.3 Glucose 99 Lactic Acid 1.2 Calcium 8.2 L Phosphorus Magnesium 1.9 Total Bilirubin 0.40 AST 17 ALT 12 L Alkaline Phosphatase 108 Ammonia Troponin I < 0.015 Total Protein 6.5 Albumin 2.3 L Globulin 4.2 Albumin/Globulin Ratio 0.5 L TSH Urine Color Urine Clarity Urine pH Ur Specific [place] Urine Protein Urine Glucose (UA) Urine Ketones Urine Occult Blood Urine Nitrite Urine Bilirubin Urine Urobilinogen Ur Leukocyte Esterase Urine RBC Urine WBC Ur Squamous Epith Cells Urine Bacteria Hyaline Casts Urine Mucus POC Glucose 03/16/21 03/16/21 03/17/21 16:30 18:20 05:40 WBC 6.2 RBC 3.26 L Hgb 9.6 L Hct 32.7 L MCV 100.3 H D MCH 29.4 MCHC 29.4 L RDW Std Deviation 60.5 H RDW Coeff of Naseem 16.4 H Plt Count 156 MPV 10.0 Immature Gran % (Auto) 0.200 Neut % (Auto) 72.4 H Lymph % (Auto) 17.4 L Harmon % (Auto) 7.6 Eos % (Auto) 1.4 Baso % (Auto) 1.0 Absolute Neuts (auto) 4.5 Absolute Lymphs (auto) 1.08 Nucleated RBC % 0 PT INR APTT Sodium Potassium Chloride Carbon Dioxide Anion Gap BUN Creatinine Estim Creat Clear Calc Est GFR (MDRD) Af Amer Est GFR (MDRD) Non-Af BUN/Creatinine Ratio Glucose Lactic Acid Calcium Phosphorus Magnesium Total Bilirubin AST ALT Alkaline Phosphatase Ammonia 12.0 Troponin I Total Protein Albumin Globulin Albumin/Globulin Ratio TSH Urine Color Yellow Urine Clarity Sl. Cloudy Urine pH 6.0 Ur Specific [place] 1.020 Urine Protein 100 H Urine Glucose (UA) Normal Urine Ketones 15 H Urine Occult Blood 250 H Urine Nitrite Negative Urine Bilirubin Negative Urine Urobilinogen Normal Ur Leukocyte Esterase Negative Urine RBC 25-50 SEEN Urine WBC 0 SEEN Ur Squamous Epith Cells 0-5 SEEN Urine Bacteria 0 SEEN Hyaline Casts 10-25 SEEN Urine Mucus 0 SEEN POC Glucose 03/17/21 05:40 WBC RBC Hgb Hct MCV MCH MCHC RDW Std Deviation RDW Coeff of Naseem Plt Count MPV Immature Gran % (Auto) Neut % (Auto) Lymph % (Auto) Harmon % (Auto) Eos % (Auto) Baso % (Auto) Absolute Neuts (auto) Absolute Lymphs (auto) Nucleated RBC % PT INR APTT Sodium 144 Potassium 3.3 L Chloride 116 H Carbon Dioxide 19.0 L Anion Gap 9 BUN 10 Creatinine 0.64 Estim Creat Clear Calc 49.77 Est GFR (MDRD) Af Amer 117 Est GFR (MDRD) Non-Af 97 BUN/Creatinine Ratio 15.6 Glucose 80 Lactic Acid Calcium 8.0 L Phosphorus 2.6 Magnesium Total Bilirubin 0.40 AST 17 ALT 9 L Alkaline Phosphatase 96 Ammonia Troponin I Total Protein 5.7 L Albumin 2.0 L Globulin 3.7 Albumin/Globulin Ratio 0.5 L TSH 3.17 Urine Color Urine Clarity Urine pH Ur Specific [place] Urine Protein Urine Glucose (UA) Urine Ketones Urine Occult Blood Urine Nitrite Urine Bilirubin Urine Urobilinogen Ur Leukocyte Esterase Urine RBC Urine WBC Ur Squamous Epith Cells Urine Bacteria Hyaline Casts Urine Mucus POC Glucose Micro: Microbiology 03/16/21 22:30 Stool C. difficile DNA Amplification - Final Radiography Diagnostic Testing: Radiology Impression Brain CT 03/16/21 15:12 IMPRESSION: Normal unenhanced CT scan of the brain. Electronically Signed: Beau Jacome MD ([place]) at 16:12 EDT , Service support , Chest X-Ray 03/16/21 15:45 IMPRESSION: Stable, nonacute portable x-ray examination of the chest. Electronically Signed: Beau Jacome MD ([place]) at 16:07 EDT , Service support , Rhythm Strip Rhythm Strip: Sinus bradycardia Rate: 56 Ectopy: None Physical Exam Narrative General: A O X 2, appears slightly confused HEENT: Atraumatic, PERRLA, EOMI, Normocephalic Oral: Oral mucosa dry Neck: Supple Lungs: Air entry diminished in bilateral lung bases Cardiovascular: HS I +II, regular, no murmurs Abdomen: Bowel Sounds Present, Soft, Non Tender, Non-Distended : [place] catheter inserted in ED. Clear urine. No renal angle tenderness. No suprapubic tenderness. Extremities: No edema, Capillary Refill Less than 3 Seconds Skin: Left leg dressing in place Neurological: Grossly intact Psych/Mental Status: Not interactive. Flat affect. Const General Appearance: lethargic Orientation / Consciousness: awake and confused Exam Limitations: altered mental status HEENT normocephalic and head/scalp atraumatic Eyes PERRL Neck supple and no JVD General: trachea midline Lymph Lymphatic: no lymphadenopathy noted Resp normal respiratory effort, normal air movement and clear to auscultation bilaterally Cardio regular rhythm, S1 normal heart sound and S2 normal heart sound Rate: bradycardia GI normal to inspection, nondistended, normoactive bowel sounds and soft to palpation Palpation: tender Extremity normal capillary refill and no clubbing, cyanosis or edema Left Lower Extremity: lower leg inspection (Large chronic ulcer) Skin Wounds: wounds noted drainage green and yellow Neuro Neuro Narrative: Patient unable to follow commands Assessment & Plan Assessment/Plan (1) Hypokalemia: (2) Encephalopathy acute: (3) Osteomyelitis of left fibula: (4) Chronic pain: QUALIFIERS: Chronic pain type: other chronic pain Qualified Code(s): G89.29 - Other chronic pain PLAN: Will replace potassium, recheck in am Will continue to monitor mentation Will control pain with oxycodone prn Visit Charges Inpatient E&M: 62271 Subs Hosp L2
--- NOTE | 2021-03-17 12:52 | CASEMGMT ---
ELEUTERIO BUSTILLOS Assessment: Face to Face with pt for initial transition planning/care coordination assessment. ELEUTERIO BUSTILLOS introduced self and role at [facility], pt unable to voice understanding and nods head to consent to assessment with dtr, Tasia Bocanegra who is at bedside. Care providers, pharmacy, and demographics verified/updated. Admitting Dx: altered mental status PCP: Lula Specialists: Allison, doctor of audiology; Dorothy, ID; Eduin, vascular Preferred Pharmacy: yusra Roy to use [facility] this admission. Insurance: [facility], AAR Prescription Benefit: yes LW/HPOA: Per dtr pt does not have a LW/DPOA. LNOK: Farhan Nava, ; Tasia Bocanegra, dtr Living Arrangements: Pt lives with in a single story house with no steps to enter. Pt dtr states either she or pt brother or sister are there at the house all of the time. States pt is normally I in ADL's and denies concerns at home. Transportation: Pt dtr or sister provides transportations. Denies concerns with transportation. DME/HHC/SNF: Pt has a w/c, shower seat and grab bars in the home. Pt currently has fci through [facility]. States PT has dc'd as pt unable to ambulate. Pt has previously been in [facility]. Pt dtr states no concerns with going home at time of dc if pt mental status improves. Pt dtr states no further concerns/needs. CM to follow. Advised pt/dtr to ask CM if any further question/concerns/needs arise, voices understanding. Pt dtr goal: Home with resumption of [facility]. Plan: Home with resumption of [facility].
--- NOTE | 2021-03-17 13:10 | CASEMGMT ---
[facility] palliative screening completed and pt does not meet palliative criteria at this time. SStmayo RN CM
--- NOTE | 2021-03-17 13:12 | NURSING ---
wound photo: left lateral lower leg
--- NOTE | 2021-03-17 13:12 | NURSING ---
wound photo:L left medial lower leg
--- NOTE | 2021-03-17 14:51 | CON.PCM_ITS ---
Assessment & Plan Assessment/Plan (1) Osteomyelitis of left fibula: PLAN: Left leg ulceration down to subcutaneous ulcer - chronic Osteomyelitis left fibula - chronic Peripheral vascular disease lower extremity - chronic - s/p intervention by Dr. Morel. hx of c. diff Multiple comorbidities Overall there has been significant improvement to the left leg - there is no evidence of acute infection. Continue with local wound care - daily dressing changes with adaptic and gauze/kelix. Patient remains on IV antibiotic - cefepime - Dr. De La Cruz has been consulted. Podiatry will continue to follow. HPI Consult Data Date of Consult: 03/17/21 HPI Narrative HPI Narrative: LUCIE DUPONT, is a 70 F who presented to hospital for altered mental status. Patient followed by podiatry for left leg ulcer and chronic osteomyelitis. Wound has been doing well left leg, patient had recent vascular intervention by Dr. Morel. Patient remains on IV antibiotic - follows with Dr. De La Cruz. Patient follows with Dr. Cooper at wound center, and planning wound debridement and advanced wound care graft application this coming Wednesday. Podiatry was consulted for continued wound care. [facility] Medical History (Updated 03/16/21 @ 20:57 by Miriam Ye) C. difficile colitis Cellulitis of left leg Chronic cough Colitis Colonization status Delayed wound healing Depression Diarrhea Former tobacco use HLD (hyperlipidemia) HTN (hypertension) Hypothyroidism Left leg pain Leg edema, left Migraines MVP (mitral valve prolapse) Other specified peripheral vascular diseases Pseudomonas aeruginosa colonization Sinus tachycardia Smoker Tachycardia Thyroid disorder Ulcer of left lower extremity with fat layer exposed Ulcer of left lower extremity, limited to breakdown of skin Venous insufficiency Home Medications doxepin 10 mg PO QHS 11/28/19 [History Last Taken 02/02/21 mg] levothyroxine 137 mcg PO DAILY 11/28/19 [History Last Taken 02/02/21 mcg] pentoxifylline 400 mg PO QHS 11/28/19 [History Last Taken 02/02/21 mg] acidophilus-pectin, citrus 2 tab PO DAILY 03/26/20 [History Last Taken 02/03/21] metoprolol tartrate 50 mg PO BREAKFAST 03/26/20 [History Last Taken 02/03/21] metoprolol tartrate 150 mg PO QHS 03/26/20 [History Last Taken 02/02/21] acetaminophen 650 mg PO Q6H PRN PRN tab 05/31/20 [Rx Last Taken Unknown] food supplemt, lactose-reduced 120 ml PO 4X/DAY liquid 02/09/21 [Rx Last Taken Unknown] menthol-zinc oxide 1 applic TOPICAL BID tube 02/09/21 [Rx Last Taken Unknown] cefepime 2 g IV BID 03/16/21 [History Last Taken Unknown] clopidogrel [Plavix] 75 mg PO DAILY 03/16/21 [History Last Taken Unknown] gabapentin 100 mg PO DAILY 03/16/21 [History Last Taken Unknown] pentoxifylline 400 mg PO DAILY 03/16/21 [History Last Taken Unknown] vancomycin 125 mg PO 4X/DAY 03/16/21 [History Last Taken Unknown] Allergy/AdvReac Type Severity Reaction Status Date / Time naproxen [From Naprosyn] Allergy Rash Verified 03/16/21 15:05 Penicillins [PCN] Allergy Rash Verified 03/16/21 15:05 amoxicillin AdvReac Rash Verified 03/16/21 15:05 cephalexin [From Keflex] AdvReac Rash Verified 03/16/21 15:05 clotrimazole [From Lotrimin] AdvReac Rash Verified 03/16/21 15:05 diphenhydramine AdvReac Rash Verified 03/16/21 15:05 [From Benadryl] griseofulvin AdvReac Rash Verified 03/16/21 15:05 ibuprofen [From Motrin] AdvReac Rash Verified 03/16/21 15:05 miconazole AdvReac Rash Verified 03/16/21 15:05 [From Monistat 1 Combo Pack] propranolol [From Inderal LA] AdvReac Rash Verified 03/16/21 15:05 rofecoxib [From Vioxx] AdvReac Rash Verified 03/16/21 15:05 Sulfa (Sulfonamide AdvReac Rash Verified 03/16/21 15:05 Antibiotics) Family History Daughter Asthma Sister COPD (chronic obstructive pulmonary disease) Father COPD (chronic obstructive pulmonary disease) Heart disease Mother COPD (chronic obstructive pulmonary disease) Surgical History History of hip surgery Hx of knee surgery Hx of tubal ligation Social History Smoking Status: Former smoker second hand exposure: No alcohol intake: current alcohol intake frequency: holidays/special occasions only substance use type: does not use caffeine: Yes (some times) Type: tea what type of physical activity do you participate in: none frequency: does not exercise Physical Exam Const General Appearance: comfortable Orientation / Consciousness: awake Extremity Extremity Narrative: Left leg with chronic ulceration to the lateral asepct and some to the posterior medial aspect - overall significant improvement noted to the leg, tissues viable with no evidence of infection - wounds down to subcutan eous tissue, no exposed bone, no probe to bone, no maloder, no necrosis, no crepitus, no fluctuance, no evidence of acute infection bilateral foot/ankle or leg. No open lesions to the right foot or ankle bilateral. No evidence of acute ischemia to the foot or ankle bilateral. Lab / Micro Data Result Diagrams: 03/17/21 05:40 03/17/21 05:40 Labs: Laboratory Results - last 24 hr 03/16/21 03/16/21 03/16/21 15:09 15:30 15:30 WBC 6.4 RBC 3.72 L Hgb 10.5 L Hct 34.1 L MCV 91.7 MCH 28.2 MCHC 30.8 L RDW Std Deviation 55.0 H RDW Coeff of Naseem 16.1 H Plt Count 207 MPV 9.1 Immature Gran % (Auto) 0.300 Neut % (Auto) 71.8 H Lymph % (Auto) 15.6 L Greene % (Auto) 8.7 Eos % (Auto) 2.5 Baso % (Auto) 1.1 H Absolute Neuts (auto) 4.6 Absolute Lymphs (auto) 1.00 Nucleated RBC % 0 PT 15.8 H INR 1.3 APTT 33.1 Sodium Potassium Chloride Carbon Dioxide Anion Gap BUN Creatinine Estim Creat Clear Calc Est GFR (MDRD) Af Amer Est GFR (MDRD) Non-Af BUN/Creatinine Ratio Glucose Lactic Acid Calcium Phosphorus Magnesium Total Bilirubin AST ALT Alkaline Phosphatase Ammonia Troponin I Total Protein Albumin Globulin Albumin/Globulin Ratio TSH Urine Color Urine Clarity Urine pH Ur Specific [place] Urine Protein Urine Glucose (UA) Urine Ketones Urine Occult Blood Urine Nitrite Urine Bilirubin Urine Urobilinogen Ur Leukocyte Esterase Urine RBC Urine WBC Ur Squamous Epith Cells Urine Bacteria Hyaline Casts Urine Mucus POC Glucose 95 03/16/21 03/16/21 03/16/21 15:30 15:30 15:30 WBC RBC Hgb Hct MCV MCH MCHC RDW Std Deviation RDW Coeff of Naseem Plt Count MPV Immature Gran % (Auto) Neut % (Auto) Lymph % (Auto) [place] % (Auto) Eos % (Auto) Baso % (Auto) Absolute Neuts (auto) Absolute Lymphs (auto) Nucleated RBC % PT INR APTT Sodium 145 Potassium 3.4 L Chloride 112 H Carbon Dioxide 24.0 Anion Gap 9 BUN 10 Creatinine 0.75 Estim Creat Clear Calc 43.91 Est GFR (MDRD) Af Amer 97 Est GFR (MDRD) Non-Af 80 BUN/Creatinine Ratio 13.3 Glucose 99 Lactic Acid 1.2 Calcium 8.2 L Phosphorus Magnesium 1.9 Total Bilirubin 0.40 AST 17 ALT 12 L Alkaline Phosphatase 108 Ammonia Troponin I < 0.015 Total Protein 6.5 Albumin 2.3 L Globulin 4.2 Albumin/Globulin Ratio 0.5 L TSH Urine Color Urine Clarity Urine pH Ur Specific [place] Urine Protein Urine Glucose (UA) Urine Ketones Urine Occult Blood Urine Nitrite Urine Bilirubin Urine Urobilinogen Ur Leukocyte Esterase Urine RBC Urine WBC Ur Squamous Epith Cells Urine Bacteria Hyaline Casts Urine Mucus POC Glucose 03/16/21 03/16/21 03/17/21 16:30 18:20 05:40 WBC 6.2 RBC 3.26 L Hgb 9.6 L Hct 32.7 L MCV 100.3 H D MCH 29.4 MCHC 29.4 L RDW Std Deviation 60.5 H RDW Coeff of Naseem 16.4 H Plt Count 156 MPV 10.0 Immature Gran % (Auto) 0.200 Neut % (Auto) 72.4 H Lymph % (Auto) 17.4 L [place] % (Auto) 7.6 Eos % (Auto) 1.4 Baso % (Auto) 1.0 Absolute Neuts (auto) 4.5 Absolute Lymphs (auto) 1.08 Nucleated RBC % 0 PT INR APTT Sodium Potassium Chloride Carbon Dioxide Anion Gap BUN Creatinine Estim Creat Clear Calc Est GFR (MDRD) Af Amer Est GFR (MDRD) Non-Af BUN/Creatinine Ratio Glucose Lactic Acid Calcium Phosphorus Magnesium Total Bilirubin AST ALT Alkaline Phosphatase Ammonia 12.0 Troponin I Total Protein Albumin Globulin Albumin/Globulin Ratio TSH Urine Color Yellow Urine Clarity Sl. Cloudy Urine pH 6.0 Ur Specific [place] 1.020 Urine Protein 100 H Urine Glucose (UA) Normal Urine Ketones 15 H Urine Occult Blood 250 H Urine Nitrite Negative Urine Bilirubin Negative Urine Urobilinogen Normal Ur Leukocyte Esterase Negative Urine RBC 25-50 SEEN Urine WBC 0 SEEN Ur Squamous Epith Cells 0-5 SEEN Urine Bacteria 0 SEEN Hyaline Casts 10-25 SEEN Urine Mucus 0 SEEN POC Glucose 03/17/21 05:40 WBC RBC Hgb Hct MCV MCH MCHC RDW Std Deviation RDW Coeff of Naseem Plt Count MPV Immature Gran % (Auto) Neut % (Auto) Lymph % (Auto) [place] % (Auto) Eos % (Auto) Baso % (Auto) Absolute Neuts (auto) Absolute Lymphs (auto) Nucleated RBC % PT INR APTT Sodium 144 Potassium 3.3 L Chloride 116 H Carbon Dioxide 19.0 L Anion Gap 9 BUN 10 Creatinine 0.64 Estim Creat Clear Calc 49.77 Est GFR (MDRD) Af Amer 117 Est GFR (MDRD) Non-Af 97 BUN/Creatinine Ratio 15.6 Glucose 80 Lactic Acid Calcium 8.0 L Phosphorus 2.6 Magnesium Total Bilirubin 0.40 AST 17 ALT 9 L Alkaline Phosphatase 96 Ammonia Troponin I Total Protein 5.7 L Albumin 2.0 L Globulin 3.7 Albumin/Globulin Ratio 0.5 L TSH 3.17 Urine Color Urine Clarity Urine pH Ur Specific [place] Urine Protein Urine Glucose (UA) Urine Ketones Urine Occult Blood Urine Nitrite Urine Bilirubin Urine Urobilinogen Ur Leukocyte Esterase Urine RBC Urine WBC Ur Squamous Epith Cells Urine Bacteria Hyaline Casts Urine Mucus POC Glucose Micro: Microbiology 03/16/21 22:30 C. difficile DNA Amplification - Final Stool Rhythm Strip Rhythm Strip: Sinus bradycardia Rate: 56 Ectopy: None Radiology Impression Brain CT 03/16/21 15:12 IMPRESSION: Normal unenhanced CT scan of the brain. Electronically Signed: Beau Jacome MD ([place]) at 16:12 EDT , Service support , Chest X-Ray 03/16/21 15:45 IMPRESSION: Stable, nonacute portable x-ray examination of the chest. Electronically Signed: Beau Jacome ([place]) MD at 16:07 EDT , Service support ,
[2021-03-17] MEDS: 0.9% Saline Lock 10 ML Syringe IV ×2 (16:34→22:32)
--- NOTE | 2021-03-17 17:09 | CHAPLAIN ---
Type of Pastoral Visit _x__ Initial Visit ___ Follow-up Visit ___ On-call Visit ___ General Patient Visit ___ Spiritual Assessment ___ Family Conference ___ Bereavement ___ Rapid Response ___ Code Blue ___ Other (describe below) Pastoral Care Referral From _x__ Patient ___ Family ___ Nurse ___ Physician ___ Criminal Investigator ___ [place] ___ Other (describe below) Sacrament/Intervention _x__ Active listening ___ Anointing ___ Worship ___ Bereavement ___ Communion ___ Amelia exploration ___ ___ Life review _x__ Prayer ___ Reconciliation ___ Sacrament of Sick _x__ Supportive presence ___ Wedding ___ Other (describe below) Pastoral Comments
[2021-03-17] MEDS: Acetaminophen 325 MG Tablet 650 MG PO (17:26)
[2021-03-17] MEDS: oxyCODONE 5 MG Tablet PO (18:10)
--- NOTE | 2021-03-17 20:23 | CON.PCM.ID_ITS ---
Assessment & Plan Assessment/Plan (1) Osteomyelitis of left fibula: PLAN: Presented with encephalopathy. Has been on cefepime for LLE chronic infection, suspected osteo. Has been on po vanc for recurrent cdiff. Cefepime rarely can cause altered mental status after long courses, but given sudden onset, suspect more related to the baclofen. Will restart cefepime and po vanc and monitor progress. Plan was to stop cefepime 03/24 and to do a long vanc taper. Will follow, thank you (2) Altered mental status: QUALIFIERS: Altered mental status type: unspecified Qualified Code(s): R41.82 - Altered mental status, unspecified (3) History of Clostridium difficile colitis: HPI Consult Data Date of Consult: 03/17/21 HPI Narrative HPI Narrative: LUCIE DUPONT, is a 70 F who presented with acute onset of lethargy, confusion. Has been on cefepime and po vanc. LLE has been improving. Developed muscle spasms, given baclofen then became minimally responsive. Taken to ED 03/16. Daughter reports pt did not know what planet she was on yesterday. Mental status improved today but not back to baseline. Full ROS performed and neg except as noted above. FORMERLY [facility] Medical History C. difficile colitis Cellulitis of left leg Chronic cough Colitis Colonization status Delayed wound healing Depression Diarrhea Former tobacco use HLD (hyperlipidemia) HTN (hypertension) Hypothyroidism Left leg pain Leg edema, left Migraines MVP (mitral valve prolapse) Other specified peripheral vascular diseases Pseudomonas aeruginosa colonization Sinus tachycardia Smoker Tachycardia Thyroid disorder Ulcer of left lower extremity with fat layer exposed Ulcer of left lower extremity, limited to breakdown of skin Venous insufficiency Home Medications doxepin 10 mg PO QHS 11/28/19 [History Last Taken 02/02/21 mg] levothyroxine 137 mcg PO DAILY 11/28/19 [History Last Taken 02/02/21 mcg] pentoxifylline 400 mg PO QHS 11/28/19 [History Last Taken 02/02/21 mg] acidophilus-pectin, citrus 2 tab PO DAILY 03/26/20 [History Last Taken 02/03/21] metoprolol tartrate 50 mg PO BREAKFAST 03/26/20 [History Last Taken 02/03/21] metoprolol tartrate 150 mg PO QHS 03/26/20 [History Last Taken 02/02/21] acetaminophen 650 mg PO Q6H PRN PRN tab 05/31/20 [Rx Last Taken Unknown] food supplemt, lactose-reduced 120 ml PO 4X/DAY liquid 02/09/21 [Rx Last Taken Unknown] menthol-zinc oxide 1 applic TOPICAL BID tube 02/09/21 [Rx Last Taken Unknown] cefepime 2 g IV BID 03/16/21 [History Last Taken Unknown] clopidogrel [Plavix] 75 mg PO DAILY 03/16/21 [History Last Taken Unknown] gabapentin 100 mg PO DAILY 03/16/21 [History Last Taken Unknown] pentoxifylline 400 mg PO DAILY 03/16/21 [History Last Taken Unknown] vancomycin 125 mg PO 4X/DAY 03/16/21 [History Last Taken Unknown] Allergy/AdvReac Type Severity Reaction Status Date / Time naproxen [From Naprosyn] Allergy Rash Verified 03/16/21 15:05 Penicillins [PCN] Allergy Rash Verified 03/16/21 15:05 amoxicillin AdvReac Rash Verified 03/16/21 15:05 cephalexin [From Keflex] AdvReac Rash Verified 03/16/21 15:05 clotrimazole [From Lotrimin] AdvReac Rash Verified 03/16/21 15:05 diphenhydramine AdvReac Rash Verified 03/16/21 15:05 [From Benadryl] griseofulvin AdvReac Rash Verified 03/16/21 15:05 ibuprofen [From Motrin] AdvReac Rash Verified 03/16/21 15:05 miconazole AdvReac Rash Verified 03/16/21 15:05 [From Monistat 1 Combo Pack] propranolol [From Inderal LA] AdvReac Rash Verified 03/16/21 15:05 rofecoxib [From Vioxx] AdvReac Rash Verified 03/16/21 15:05 Sulfa (Sulfonamide AdvReac Rash Verified 03/16/21 15:05 Antibiotics) Family History Daughter Asthma Sister COPD (chronic obstructive pulmonary disease) Father COPD (chronic obstructive pulmonary disease) Heart disease Mother COPD (chronic obstructive pulmonary disease) Surgical History History of hip surgery Hx of knee surgery Hx of tubal ligation Social History Smoking Status: Former smoker second hand exposure: No alcohol intake: current alcohol intake frequency: holidays/special occasions only substance use type: does not use caffeine: Yes (some times) Type: tea what type of physical activity do you participate in: none frequency: does not exercise Physical Exam Const no apparent distress Constitutional Narrative: oriented x2 General Appearance: cooperative and lethargic HEENT normocephalic and head/scalp atraumatic Eyes PERRL Neck supple and No nodes Resp clear to auscultation bilaterally Cardio regular rate and regular rhythm GI normal to inspection, nondistended, normoactive bowel sounds Extremity no clubbing, cyanosis or edema Skin Skin Narrative: LLE wrapped Neuro CN's II-XII intact bilaterally Lab / Micro Data Result Diagrams: 03/17/21 05:40 03/17/21 05:40 Labs: Laboratory Results - last 24 hr 03/17/21 03/17/21 05:40 05:40 WBC 6.2 RBC 3.26 L Hgb 9.6 L Hct 32.7 L MCV 100.3 H D MCH 29.4 MCHC 29.4 L RDW Std Deviation 60.5 H RDW Coeff of Naseem 16.4 H Plt Count 156 MPV 10.0 Immature Gran % (Auto) 0.200 Neut % (Auto) 72.4 H Lymph % (Auto) 17.4 L [place] % (Auto) 7.6 Eos % (Auto) 1.4 Baso % (Auto) 1.0 Absolute Neuts (auto) 4.5 Absolute Lymphs (auto) 1.08 Nucleated RBC % 0 Sodium 144 Potassium 3.3 L Chloride 116 H Carbon Dioxide 19.0 L Anion Gap 9 BUN 10 Creatinine 0.64 Estim Creat Clear Calc 49.77 Est GFR (MDRD) Af Amer 117 Est GFR (MDRD) Non-Af 97 BUN/Creatinine Ratio 15.6 Glucose 80 Calcium 8.0 L Phosphorus 2.6 Total Bilirubin 0.40 AST 17 ALT 9 L Alkaline Phosphatase 96 Total Protein 5.7 L Albumin 2.0 L Globulin 3.7 Albumin/Globulin Ratio 0.5 L TSH 3.17 Micro: Microbiology 03/16/21 22:30 C. difficile DNA Amplification - Final Stool Rhythm Strip Rhythm Strip: Sinus bradycardia Rate: 56 Ectopy: None
[2021-03-17] MEDS: Pentoxifylline 400 MG Tablet PO (22:27)
[2021-03-17] MEDS: Atorvastatin Calcium 20 MG Tablet PO (22:27)
[2021-03-17] MEDS: Metoprolol Tartrate 100 MG Tablet PO (22:27)
[2021-03-17] MEDS: Levothyroxine 137 MCG Tablet PO (22:27)
[2021-03-17] MEDS: Potassium Chloride Oral Tablet 20 MEQ 40 MEQ PO (22:27)
[2021-03-17] MEDS: Ondansetron 4 MG/2 ML Vial IV (22:32)
[2021-03-18] VITALS (12 sets, daily range): BP systolic 146–168; BP diastolic 58–87; PULSE 79–105; RESP 16–18; TEMP 36.4–36.9; O2SAT 93–97
[2021-03-18] MEDS: oxyCODONE 5 MG Tablet PO (00:03)
[2021-03-18 05:58] LABS: Absolute Lymphocyte Count 1.39 X10^3/uL (0.83-4.51); Absolute Neutrophil Count 4.3 X10^3/uL (2.0-7.7); Basophil# 0.08 X10^3/uL; Basophil% 1.2 % (0-1); Eosinophil# 0.33 X10^3/uL; Eosinophils% 4.9 % (0-5); Hematocrit 31.9 % (37-47); Hemoglobin 9.6 g/dL (12.0-15.0); Lymphocyte # 1.39 X10^3/ul (0.83-4.51); Lymphocyte % 20.7 % (19-41); Mean Corp Hgb Conc 30.1 g/dL (32-36); Mean Corpuscular Hgb 28.5 pg (27.0-32.0); Mean Corpuscular Volume 94.7 fL (81-99); Mean Platelet Vol. 9.5 fl (6.2-12.0); Monocyte# 0.63 X10^3/uL; Monocyte% 9.4 % (0-10); NRBC Flagged by Analyzer 0 % (0-5); Neutrophil # 4.29 X10^3/uL (2.7-7.7); Neutrophil % 63.7 % (47-70); Platelet Count 208 K/mm3 (150-450); RBC Distribution Width CV 16.5 % (11.6-14.6); RBC Distribution Width SD 57.3 fl (35.1-43.9); Red Blood Count 3.37 M/mm3 (4.2-5.4); White Blood Count 6.7 K/mm3 (4.4-11.0)
[2021-03-18 06:27] LABS: ALB/GLOB Ratio 0.6 RATIO (0.9-2.4); AST(SGOT) 15 U/L (15-37); Alanine Aminotransfer ALT/SGPT 11 U/L (13-56); Albumin, Serum 2.3 g/dL (3.2-5.0); Alkaline Phosphatase 103 U/L (45-117); Anion Gap 8 (5-15); BUN 10 mg/dL (7-18); Calcium,Total 8.2 mg/dL (8.5-10.1); Chloride 112 mmol/L (98-107); Creatinine, Serum 0.67 mg/dL (0.55-1.02); EST Glomerular Filtration Rate 92 mL/min (>60); Est Glom Filt Rate - Afr Amer 112 mL/min (>60); Estimated Creatinine Clearance 49.77 ml/min; Globulin 3.9 g/dL (2.2-4.2); Glucose 75 mg/dL (74-106); Potassium 3.7 mmol/L (3.5-5.1); Protein, Total 6.2 g/dL (6.4-8.2); Sodium Level 143 mmol/L (136-145)
[2021-03-18] MEDS: Nystatin Powder 15gm Bottle 1 APPLIC TOPICAL ×2 (08:55→21:52)
[2021-03-18] MEDS: Gabapentin 100 MG Capsule PO (08:55)
[2021-03-18] MEDS: Menthol/Lanolin/Calamine/Znox 113 GM Tube 1 APPLIC TOPICAL ×2 (08:55→21:52)
[2021-03-18] MEDS: Aspirin E.C. 81 MG Tablet PO (08:55)
[2021-03-18] MEDS: Clopidogrel Bisulfate 75 MG Tablet PO (08:55)
[2021-03-18] MEDS: Enoxaparin 40 MG/0.4 ML Syringe SC (09:35)
[2021-03-18] MEDS: Metoprolol Tartrate 50 MG Tablet PO (09:35)
--- NOTE | 2021-03-18 09:58 | PCM.PN.ID ---
Physical Exam Narrative Feeling better, mild nausea, no abd pain. Const alert, oriented x3 and no apparent distress General Appearance: cooperative Resp clear to auscultation bilaterally Cardio regular rate and regular rhythm Skin no rashes or lesions noted Skin Narrative: LLE wrapped ID ID: Route of nutrition/ use of supplements: [] Nutritional Intake: [] IV Site: [] [place] Catheter: [] Assessment & Plan Assessment/Plan (1) Osteomyelitis of left fibula: PLAN: Presented with encephalopathy. Has been on cefepime for LLE chronic infection, suspected osteo. Has been on po vanc for recurrent cdiff. Cefepime rarely can cause altered mental status after long courses, but given sudden onset, suspect more related to the baclofen. Restarted cefepime and po vanc and monitor progress. Mental status much improved, oriented x3 this AM. Plan was to stop cefepime 03/24 and to do a long vanc taper. Will follow (2) Altered mental status: QUALIFIERS: Altered mental status type: unspecified Qualified Code(s): R41.82 - Altered mental status, unspecified (3) History of Clostridium difficile colitis:
--- NOTE | 2021-03-18 14:43 | PCM.PN.HOSP ---
Subjective Subjective Patient was seen and examined. She is more alert today, able to answer questions, sitting in a chair. She has occasional periods of confusion with word finding difficulty. Her daughter was at the bedside. Overall she stated she is improved compared to yesterday. Her pain is relatively controlled Objective Data Objective Data Vital Signs: Vital Signs Temp Pulse Resp BP Pulse Ox 98.1 F 105 H 16 148/63 H 96 03/18/21 09:35 03/18/21 09:35 03/18/21 09:35 03/18/21 09:35 03/18/21 09:35 Oxygen Delivery Method Room Air Weight: 62 kg Body Mass Index (BMI) 27.6 Finger Stick Blood Glucose 95 Intake & Output: Intake and Output for Last 24 Hours 03/16/21 03/17/21 03/18/21 23:59 23:59 23:59 Intake Total 1100 / 1100 2228.33 / 2378.33 746.67 / 746.67 Output Total 625 / 775 600 / 600 Balance 1100 / 875 1603.33 / 1603.33 146.67 / 146.67 Lab / Micro Data Result Diagrams: 03/18/21 05:32 03/18/21 05:32 Labs: Laboratory Results - last 24 hr 03/18/21 03/18/21 05:32 05:32 WBC 6.7 RBC 3.37 L Hgb 9.6 L Hct 31.9 L MCV 94.7 D MCH 28.5 MCHC 30.1 L RDW Std Deviation 57.3 H RDW Coeff of Naseem 16.5 H Plt Count 208 MPV 9.5 Immature Gran % (Auto) 0.100 Neut % (Auto) 63.7 Lymph % (Auto) 20.7 [place] % (Auto) 9.4 Eos % (Auto) 4.9 Baso % (Auto) 1.2 H Absolute Neuts (auto) 4.3 Absolute Lymphs (auto) 1.39 Nucleated RBC % 0 Sodium 143 Potassium 3.7 Chloride 112 H Carbon Dioxide 23.0 Anion Gap 8 BUN 10 Creatinine 0.67 Estim Creat Clear Calc 49.77 Est GFR (MDRD) Af Amer 112 Est GFR (MDRD) Non-Af 92 BUN/Creatinine Ratio 15.0 Glucose 75 Calcium 8.2 L Total Bilirubin 0.40 AST 15 ALT 11 L Alkaline Phosphatase 103 Total Protein 6.2 L Albumin 2.3 L Globulin 3.9 Albumin/Globulin Ratio 0.6 L Micro: Microbiology 03/16/21 16:30 Urine, Catheterized Urine Culture - Preliminary Culture exhibits no growth. 03/16/21 22:30 Stool C. difficile DNA Amplification - Final Rhythm Strip Rhythm Strip: Sinus bradycardia Rate: 56 Ectopy: None Physical Exam Narrative General: A O X3, intermittently, confused, not pale, not jaundiced, HEENT: Atraumatic, PERRLA, EOMI, Normocephalic Oral: Oral mucosa dry Neck: Supple Lungs: Air entry diminished in bilateral lung bases Cardiovascular: HS I +II, regular, no murmurs Abdomen: Bowel Sounds Present, Soft, Non Tender, Non-Distended : [place] catheter inserted in ED. Clear urine. No renal angle tenderness. No suprapubic tenderness. Extremities: No edema, Capillary Refill Less than 3 Seconds Skin: Left leg dressing in place Neurological: Grossly intact Psych/Mental Status: Not interactive. Flat affect. Const General Appearance: lethargic Orientation / Consciousness: awake and confused Exam Limitations: altered mental status HEENT normocephalic and head/scalp atraumatic Eyes PERRL Neck supple and no JVD General: trachea midline Lymph Lymphatic: no lymphadenopathy noted Resp normal respiratory effort, normal air movement and clear to auscultation bilaterally Cardio regular rhythm, S1 normal heart sound and S2 normal heart sound Rate: bradycardia GI normal to inspection, nondistended, normoactive bowel sounds and soft to palpation Palpation: tender Extremity normal capillary refill and no clubbing, cyanosis or edema Left Lower Extremity: lower leg inspection (Large chronic ulcer) Skin Wounds: wounds noted drainage green and yellow Neuro Neuro Narrative: Patient unable to follow commands Assessment & Plan Assessment/Plan (1) Hypokalemia: (2) Encephalopathy acute: (3) Osteomyelitis of left fibula: (4) Chronic pain: QUALIFIERS: Chronic pain type: other chronic pain Qualified Code(s): G89.29 - Other chronic pain (5) Cellulitis: PLAN: 1. Acute encephalopathy likely secondary to baclofen use, appears improved We will continue to monitor 2. Hypokalemia, resolved, will recheck in a.m. 3. Cellulitis/osteomyelitis of the left fibula, ID consulted, on IV cefepime and vancomycin 4. Chronic pain/left lower leg pain, continue on gabapentin as well as oxycodone We will increase oxycodone frequency to every 4 as needed for pain Visit Charges Inpatient E&M: 53036 Subs Hosp L2
--- NOTE | 2021-03-18 15:32 | CASEMGMT ---
TC to [facility], spoke with Carlos Alberto. She states pt is current with SN. They do offer ST. Made aware that this may be recommended on dc. CM to follow.
[2021-03-18] MEDS: 0.9% Saline Lock 10 ML Syringe IV ×2 (16:40→21:59)
[2021-03-18] MEDS: Ondansetron 4 MG/2 ML Vial IV (16:40)
[2021-03-18] MEDS: Metoprolol Tartrate 100 MG Tablet PO (21:50)
[2021-03-18] MEDS: Pentoxifylline 400 MG Tablet PO (21:50)
[2021-03-18] MEDS: hydrOXYzine PAM 25 MG Capsule 50 MG PO (21:51)
[2021-03-18] MEDS: Levothyroxine 137 MCG Tablet PO (21:51)
[2021-03-18] MEDS: Atorvastatin Calcium 20 MG Tablet PO (21:51)
[2021-03-19] VITALS (8 sets, daily range): BP systolic 138–168; BP diastolic 43–69; PULSE 75–101; RESP 16–18; TEMP 36.6–36.9; O2SAT 94–98
[2021-03-19] MEDS: Aspirin E.C. 81 MG Tablet PO (09:45)
[2021-03-19] MEDS: Clopidogrel Bisulfate 75 MG Tablet PO (09:45)
[2021-03-19] MEDS: Enoxaparin 40 MG/0.4 ML Syringe SC (09:45)
[2021-03-19] MEDS: Metoprolol Tartrate 50 MG Tablet PO (09:46)
[2021-03-19] MEDS: Menthol/Lanolin/Calamine/Znox 113 GM Tube 1 APPLIC TOPICAL (09:47)
[2021-03-19] MEDS: Nystatin Powder 15gm Bottle 1 APPLIC TOPICAL (09:47)
[2021-03-19] MEDS: Gabapentin 100 MG Capsule PO (09:48)
[2021-03-19] MEDS: Lisinopril 10 MG Tablet PO (09:59)
--- NOTE | 2021-03-19 11:23 | CASEMGMT ---
Addendum entered by Elham Simmons 03/19/21 15:26: Faxed referral information to [facility]. Addendum entered by Elham Simmons 03/19/21 11:30: TC to [place], spoke with Carlos Alberto. Aware pt will be dc'ing today and addition of disciplines. Original Note: ELEUTERIO CM in to pt room. Pt is agreeable to further OT and ST in the home. She denies need for walker as she states she does not walk. TAIL BOARD MAN and ANAYA in room at this time.
[2021-03-19] MEDS: Lidocaine 5% Patch 2 PATCH TOPICAL (14:13)
--- NOTE | 2021-03-19 15:06 | DCINST_ITS ---
Discharge Instructions Diet Discharge Diet: No restrictions Follow Up Care Test Results: Test results from this visit will be discussed in further detail at your follow-up appointment, if applicable. Discharge Plan Admission Admit Date/Time: 03/16/21 18:33 Primary Reason for Your Visit: Confusion Attending Provider: Reina Rojas Primary Care Provider: Boo Cotton Consulting Providers: Pola De La Cruz ; Colten Nova Instructions Additional Instructions / Restrictions: Continue on the rest of your medications as prescribed. You be followed by home health. Follow-up with ID as scheduled. Discharge Orders/Prescriptions Prescriptions: New atorvastatin 20 mg Tablet 20 mg PO QHS Qty: 30 RF: 0 Firvanq 25 mg/mL Recon Soln 125 mg PO Q6 Qty: 300 RF: 0 lidocaine 5 % Adhesive Patch,Medicated 2 patch topical DAILY 14 Days Qty: 30 RF: 0 Continued levothyroxine 137 MCG tablet 137 mcg PO DAILY RF: 0 pentoxifylline 400 MG tablet 400 mg PO QHS RF: 0 metoprolol tartrate 100 MG tablet 150 mg PO QHS RF: 0 metoprolol tartrate 50 MG tablet 50 mg PO BREAKFAST RF: 0 acidophilus-pectin, citrus 1 TABLET tablet 2 tab PO DAILY RF: 0 acetaminophen 325 MG tablet 650 mg PO Q6H PRN PRN (Reason: Pain Score 1-10/Temp > 100.7 F) RF: 0 menthol-zinc oxide 1 APPLIC ointment 1 applic TOPICAL BID RF: 0 food supplemt, lactose-reduced 120 ML liquid 120 ml PO 4X/DAY RF: 0 clopidogrel [Plavix] 75 mg Tablet 75 mg PO DAILY RF: 0 gabapentin 100 MG capsule 100 mg PO DAILY RF: 0 cefepime 2 gram recon soln 2 g IV BID RF: 0 vancomycin 125 mg capsule 125 mg PO 4X/DAY RF: 0 Discontinued doxepin 10 MG capsule 10 mg PO QHS RF: 0 pentoxifylline 400 mg tablet extended release 400 mg PO DAILY RF: 0 Referrals / Follow Up: Boo Ctoton MD [Primary Care Provider] - Pola De La Cruz MD [STAFF PHYSICIAN] - See Referral Note (As scheduled) Disposition Disposition (needs filled in before D/C Order can be placed): Home Health Ser vice
--- NOTE | 2021-03-19 15:07 | PCM.DC.SUM ---
Providers Date of Admission: 03/16/21 Date of Discharge: 03/19/21 Primary Care Physician: Dr. Boo Cotton MD Consultations 03/16/21 19:54 Consult: Infectious Disease Routine Consulting Provider: Pola De La Cruz Reason for Consult: Left leg H/o osteomyelitis, AMS. EMERGENT Consult: No Notified: Yes Date Notified:: 03/17/21 Time Notified: 07:45 Method of Notification: Text Consult: Podiatry Routine Consulting Provider: Colten Nova Reason for Consult: LEFT leg OM history and PAD EMERGENT Consult: No Notified: Yes Date Notified:: 03/17/21 Time Notified: 07:43 Method of Notification: Text 03/16/21 23:38 Consult: Onc/Wound/photographic reproduction technician Routine Comment: Reason for Consult:: left lower leg wound Reason For Visit: ALTERED MENTAL STATUS Diagnosis Discharge Diagnosis (1) Hypokalemia: Status: Resolved Code(s): E87.6 - Hypokalemia (2) Encephalopathy acute: Status: Resolved Code(s): G93.40 - Encephalopathy, unspecified (3) Osteomyelitis of left fibula: Status: Chronic Code(s): M86.9 - Osteomyelitis, unspecified (4) Chronic pain: Status: Chronic Code(s): G89.29 - Other chronic pain Qualifiers: Chronic pain type: other chronic pain Qualified Code(s): G89.29 - Other chronic pain (5) Cellulitis: Status: Resolved Code(s): L03.90 - Cellulitis, unspecified Medications at Discharge Home Medications levothyroxine 137 mcg PO DAILY 11/28/19 acidophilus-pectin, citrus 2 tab PO DAILY 03/26/20 metoprolol tartrate 50 mg PO BREAKFAST 03/26/20 metoprolol tartrate 150 mg PO QHS 03/26/20 acetaminophen 650 mg PO Q6H PRN PRN tab 05/31/20 food supplemt, lactose-reduced 120 ml PO 4X/DAY liquid 02/09/21 menthol-zinc oxide 1 applic TOPICAL BID tube 02/09/21 cefepime 2 g IV BID 03/16/21 clopidogrel [Plavix] 75 mg PO DAILY 03/16/21 vancomycin 125 mg PO 4X/DAY 03/16/21 atorvastatin 20 mg PO QHS #30 tab 03/19/21 lidocaine 2 patch TOPICAL DAILY 14 Days #30 ea 03/19/21 tramadol 50 mg PO BID PRN #14 tab 03/21/21 Hospital Course Operations None Procedures None Summary of Care Provided Minutes Spent on Discharge: 45 Hospital Course: 70 y/o female with multiple comorbidities including chronic osteomyelitis who presented with altered mental status. Patient was recently discharged from SNF for acute on chronic osteomyelitis and chronic Cdiff. Patient follows with Dr. Cooper in the outpatient for her left lower extremity osteo-/chronic ulcer. Patient has been complaining of chronic back pain and was recently prescribed baclofen. Her family gave her a dose of baclofen and she became very confused. Patient was admitted from the emergency room. Her work-up was negative for any acute abnormality. She was monitored on IV fluids. She was continued on her IV antibiotics and vancomycin. She was seen by infectious disease in the hospital stay. Patient improving her mentation and was alert oriented x3 at time of discharge. She complained of spasms in her lower back for which a trial of Lidoderm patch were given to her. X-ray of the back shows straightening of the lumbar spine with severe alternating scoliosis of the lumbar spine which was no change from previous. Without any acute fractures. It did show degenerative changes. Patient was discharged in a stable condition. She will follow up with home health, resume on her antibiotics until 03/24/21. She will be on a long taper of vancomycin. She will follow-up with podiatry, infectious disease and her primary care doctor. Physical Exam Narrative General: A O X3, not pale, not jaundiced, HEENT: Atraumatic, PERRLA, EOMI, Normocephalic Oral: Oral mucosa dry Neck: Supple Lungs: Air entry diminished in bilateral lung bases Cardiovascular: HS I +II, regular, no murmurs Abdomen: Bowel Sounds Present, Soft, Non Tender, Non-Distended : [place] catheter inserted in ED. Clear urine. No renal angle tenderness. No suprapubic tenderness. Extremities: No edema, Capillary Refill Less than 3 Seconds Skin: Left leg dressing in place Neurological: Grossly intact Psych/Mental Status: Not interactive. Flat affect. ABG / Lab / Microbiology Data Result Diagrams: 03/18/21 05:32 03/18/21 05:32 Microbiology: Microbiology 03/16/21 16:30 Urine Culture - Final Urine, Catheterized Culture exhibits no growth. 05/09/21 15:43 Blood Culture - Preliminary Blood Culture (Wb) - Anticubital Right No growth in 48 hours. 03/16/21 15:30 Blood Culture - Preliminary Blood Culture (Wb) - Arm Left No growth in 48 hours. Microbiology 03/16/21 16:30 Urine, Catheterized Urine Culture - Final Culture exhibits no growth. 03/16/21 15:43 Blood Culture (Wb) - Anticubital Right Blood Culture - Preliminary No growth in 48 hours. 03/16/21 15:30 Blood Culture (Wb) - Arm Left Blood Culture - Preliminary No growth in 48 hours. 03/16/21 22:30 Stool C. difficile DNA Amplification - Final D/C Instructions Discharge Diet: No restrictions Meaningful Use Info Meaningful Use Diagnoses (Choose all that apply): None applicable Discharge Plan Admission Admit Date/Time: 03/16/21 18:33 Primary Reason for Your Visit: Confusion Attending Provider: Reina Rojas Primary Care Provider: Boo Cotton Consulting Providers: Pola De La Cruz ; Colten Nova Instructions Additional Instructions / Restrictions: Patient Problems: Altered Health Status related to Hospitalization Patient Goals: *Optimal Level of Health *Keep Appointments *Medication Compliance *Remain SafeContinue on the rest of your medications as prescribed. You be followed by home health. Follow-up with ID as scheduled. Discharge Orders/Prescriptions Prescriptions: New atorvastatin 20 mg Tablet 20 mg PO QHS Qty: 30 RF: 0 lidocaine 5 % Adhesive Patch,Medicated 2 patch topical DAILY 14 Days Qty: 30 RF: 0 Continued levothyroxine 137 MCG tablet 137 mcg PO DAILY RF: 0 metoprolol tartrate 100 MG tablet 150 mg PO QHS RF: 0 metoprolol tartrate 50 MG tablet 50 mg PO BREAKFAST RF: 0 acidophilus-pectin, citrus 1 TABLET tablet 2 tab PO DAILY RF: 0 acetaminophen 325 MG tablet 650 mg PO Q6H PRN PRN (Reason: Pain Score 1-10/Temp > 100.7 F) RF: 0 menthol-zinc oxide 1 APPLIC ointment 1 applic TOPICAL BID RF: 0 food supplemt, lactose-reduced 120 ML liquid 120 ml PO 4X/DAY RF: 0 clopidogrel [Plavix] 75 mg Tablet 75 mg PO DAILY RF: 0 cefepime 2 gram recon soln 2 g IV BID RF: 0 vancomycin 125 mg capsule 125 mg PO 4X/DAY RF: 0 Discontinued doxepin 10 MG capsule 10 mg PO QHS RF: 0 pentoxifylline 400 mg tablet extended release 400 mg PO DAILY RF: 0 No Action tramadol 50 mg tablet 50 mg PO BID PRN (Reason: pain (scale score 7-10)) Qty: 14 RF: 0 Referrals / Follow Up: Boo Cotton MD [Primary Care Provider] - 03/26/21 2:30 pm Pola De La Cruz MD [STAFF PHYSICIAN] - See Referral Note (As scheduled) Disposition Disposition (needs filled in before D/C Order can be placed): Home Health Service Visit Charges Inpatient E&M: 38879 Disch Hosp
--- NOTE | 2021-03-19 15:38 | RAD_ITS ---
STUDY: X-RAY - LUMBAR SPINE REASON FOR EXAM: Female, 70 years old. Acute on chronic back pain TECHNIQUE: 2 view(s) of the lumbar spine were obtained. COMPARISON: None FINDINGS: Straightening of the lumbar spine. Severe alternating scoliosis with a levoscoliosis of the thoracolumbar junction and a dextroscoliosis of the lower lumbar spine. L2 and L3 are fused across the disc space. Advanced disc narrowing at L3-4. L4 is chronically reduced in height on the left side. Moderate to severe asymmetric disc narrowing at L4-5 with more advanced disc space narrowing on the left. Moderate degenerative disc changes at L5-S1. Transitional S1. Atherosclerotic vascular calcifications. RAD/Lumbar Spine 2 or 3 Views IMPRESSION: Straightening of the lumbar spine with a severe alternating scoliosis of the lumbar spine that is not substantially changed from prior abdomen and pelvic CT exam of 03/26/2020. Degenerative disc changes as described above. Electronically Signed: Soraya Alvarez MD at 16:01 EDT , Service support ,
--- NOTE | 2021-03-20 11:27 | CASEMGMT ---
ELEUTERIO BUSTILLOS Discharge Follow Up Phone Call: LACE: 12 Strata: 3 Call Date: 03.20.21 Discharge Date: 03.19.21 Time of Call:1129 Duration: 3 min Admitting Dx: BUCK MCCLELLAN CM completed follow up phone call after recent hospitalization. Pt states she is doing well now. States she fell lastnight. States her legs buckled. No injuries, but sore muscles. Pt states the [facility] nurse will be out today to see her. Her family picked up her prescriptions for her. She denies questions regarding medications or dc instructions.
== END 2021-03-19 17:44 | disposition home health service (06) | DRG 92 ==
LOC: ED 18:56 → PCU 19:06
PROVIDERS: Admitting Provider Internal Medicine; Emergency Provider Emergency Medicine; PCP Family Medicine; Visit Provider Internal Medicine
DX: G92 Toxic encephalopathy (principal); L97.921 Non-pressure chronic ulcer of unspecified part of left lower leg limited to breakdown of skin; L97.922 Non-pressure chronic ulcer of unspecified part of left lower leg with fat layer exposed; L03.116 Cellulitis of left lower limb; M86.662 Other chronic osteomyelitis, left tibia and fibula; A04.71 Enterocolitis due to Clostridium difficile, recurrent; T42.8X5A Adverse effect of antiparkinsonism drugs and other central muscle-tone depressants, initial encounter; Y92.9 Unspecified place or not applicable; E03.9 Hypothyroidism, unspecified; E78.5 Hyperlipidemia, unspecified; E87.6 Hypokalemia; F32.9 Major depressive disorder, single episode, unspecified; I73.89 Other specified peripheral vascular diseases; G43.909 Migraine, unspecified, not intractable, without status migrainosus; G89.29 Other chronic pain; I10 Essential (primary) hypertension; I34.1 Nonrheumatic mitral (valve) prolapse; I87.2 Venous insufficiency (chronic) (peripheral); M41.9 Scoliosis, unspecified; Z86.19 Personal history of other infectious and parasitic diseases; Z87.19 Personal history of other diseases of the digestive system; Z79.82 Long term (current) use of aspirin; Z79.02 Long term (current) use of antithrombotics/antiplatelets; Z79.899 Other long term (current) drug therapy; Z87.891 Personal history of nicotine dependence; Z22.39 Carrier of other specified bacterial diseases
CPT/HCPCS: 36415; 36592; 51702; 70450; 71045; 72100; 80053; 81001; 82140; 82962; 83605; 83735; 84100; 84443; 84484; 85025; 85610; 85730; 87040; 87086; 87493; 92523; 92526; 92610; 93005; 97110; 97162; 97166; 97530; 97535; 97802; 99251; 99285; J7040; J7120; A4216; G0463; J2405

== ENCOUNTER 2021-03-21 09:06 | Day surgery (SDC) | payer MEDICARE, OTHER, SELFPAY ==
[2021-03-16 20:16] VITALS: BMI 27.6
[2021-03-21] VITALS (7 sets, daily range): BP systolic 140–171; BP diastolic 79–85; PULSE 66–78; RESP 16; TEMP 36–36.3; O2SAT 93–100; BMI 59.4
[2021-03-21] MEDS: Lactated Ringers 1,000 ML 100 ML IV (10:02)
[2021-03-21] MEDS: Metoprolol Tartrate 50 MG Tablet PO (10:35)
--- NOTE | 2021-03-21 11:14 | SUR.PREOP ---
0282 pt given update about surgery delay. family at bedside. denies needs, call lt within reach
[2021-03-21] MEDS: Lidocaine 1% (30 ml sdv) 30 ML Vial (11:41)
[2021-03-21] MEDS: Bupivacaine Mpf 0.5% 30 ML VIAL (11:41)
--- NOTE | 2021-03-21 12:27 | OP.PCM_ITS ---
Problems Associated Problem List Diagnoses (1) Ulcer of left lower extremity with fat layer exposed: (2) Delayed wound healing: (3) Venous insufficiency: Report of Operation Date of Procedure: 03/21/21 Pre-Operative Diagnosis: Chronic left leg ulcer with delayed healing Post-Operative Diagnosis: Chronic left leg ulcer with delayed healing Surgery/Procedure Performed:: 1. Subcutaneous excisional debridement of left leg with versa jet 2. Application of advanced wound healing product (amnio fill) Description of Surgical Findings:: Hemostasis: No tourniquet utilized, anatomic debridement Materials: Amniofill, Adaptic, 4-0 nylon Specimens: None Findings: Healthy noninfected ulcers post debridement without infection. Hematogenous drainage only controlled Surgeon: Abby Cooper epoxy coatings installer: None (Michelle Chino DPM, PGY3) Type of Anesthesia: General (LMA) and Local (Preoperative: One-to-one mixture of 1% lidocaine plain and 0.5% Marcaine plain macerated typical subdermal local infiltration to each ulcer site of the left leg, 20 cc) Specimen's removed: none Drains: none Estimated Blood Loss (mL): 50 Description of Procedure: Indications: This 70 year-old female with significant past medical history of hypothyroidism, hypertension, hyperlipidemia, electrolyte imbalance history, recurrent C. 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 She recently had vascular surgery intervention with Dr. Morel to restore perfusion to the left lower extremity. She does have a history of ulcer recurrence and infections. No clinical signs of infection are noted at this time or in the recent setting. She has been managed with a comprehensive wound healing plan in the wound healing center including serial debridements, edema management, advanced wound healing product application, offloading, nutritional recommendations, and vascular specialist intervention. Recently since her vascular surgery intervention her leg is warm to touch and she has a more granular base ulcer characteristic. There is no deep tissue exposure or necrosis. The preoperative indications, planned procedure, possible benefits, risk, complications, and anticipated healing time management were discussed in detail with patient. She understands and elects to proceed with surgery this time. No guarantees were made. She understands risk and complications may include but are not limited to following: pain, swelling, scarring, need for further surgery, loss of limb, function, life, blood clot, allergic reaction, infection, continued delays or nonhealing. I answered all of her questions. The surgical limb and consent were signed. She also understands that there is an inherent risk to be in the hospital and to go through any surgical procedures during this COVID-19 pandemic timeframe. I recommend proceeding with the surgery because there are significant risks that can occur if we do not proceed forward with her wound healing plan. She also understands that we have a very low community COVID-19 involvement presently however there is still this inherent risk being in any healthcare facility. She demonstrates understanding. Procedure in detail: The patient was transported to the operating room via cart and placed on the operating room table in the supine position. Final verification of the patient, surgery, limb designation were performed via the timeout procedure. LMA was initiated by the anesthesia team. I administered the local anesthetic as noted in a local infiltrative manner. Her left hip was bumped to allow good exposure. The left lower extremity was prepped and draped in usual aseptic manner. Surgery began the following manner: A versa jet on setting 8 was used to debride the chronic ulcer sites in a subcutaneous excisional manner. The pre-debridement anterior lateral left leg ulcer was 10 x 9.5 x 0.2 cm and the post debridement was 10.3 x 9.7 x 0.3 cm. There was no bone or fascial tissue noted. The medial leg satellite ulcer pre- debridement was 5.5 x 5.5 x 0.1 cm and post debridement was 5.7 x 5.7 x 0.2 cm. Excisional subcutaneous debridement was used to remove devitalized subcutaneous tissue, fibrous tissue, biofilm, and slough. Pressure was applied to maintain hemostasis. There was no pulsatile bleeding noted. Saline irrigation was performed. Next, 1000 mg of amnio fill advanced wound healing product (placental and umbilical cord derived) was next applied to the aforementioned ulcer sites. Overlying Adaptic was applied and secured in place with nylon suture. Additional secondary dressing consisting of 4 x 4 gauze, Kerlix, abdominal pad, coban, webril, and Candelario wrap were applied. After procedure: The patient tolerated the procedure and anesthesia well. She was transported to the PACU with vital signs stable vascular status intact to left lower extremity. To ambulate as tolerated. I also recommended continuation of edema management with Candelario wrap and elevation. It is noted that she also has peripheral vascular disease and has been followed with vascular surgeon, Dr. Morel. To ice and elevate for pain and inflammation control. She was also provided with a prescription for tramadol for use only if she has moderate to severe pain. I recommend continued caution with her current medication profile. She was advised on safe and proper use. She was advised to keep the dressing clean, dry, and intact until she follows up with the wound healing center next week. She will be discharged home today with her family member. Postoperative orders were entered electronically. Abby Cooper DPM, [facility] Grafts/Implants Used: amniofill 1000 mg Complications none Admit VTE Documentation VTE Present on Admission: No VTE Mechan Device Prophylaxis: SCD's VTE Pharm Prophylaxis ordered?: Yes
== END 2021-03-21 14:28 | disposition home or self-care (01) ==
LOC: SDC 09:07 → AC 09:08
PROVIDERS: PCP Family Medicine; Referring Provider Podiatrist; Visit Provider Podiatrist
PROC: (CPT 97597; principal; 2021-03-21 10:15)
DX: L97.922 Non-pressure chronic ulcer of unspecified part of left lower leg with fat layer exposed (principal); I87.2 Venous insufficiency (chronic) (peripheral); G14 Postpolio syndrome; F32.9 Major depressive disorder, single episode, unspecified; E03.9 Hypothyroidism, unspecified; J44.9 Chronic obstructive pulmonary disease, unspecified; I10 Essential (primary) hypertension; E78.5 Hyperlipidemia, unspecified; I73.9 Peripheral vascular disease, unspecified; I34.1 Nonrheumatic mitral (valve) prolapse; G43.909 Migraine, unspecified, not intractable, without status migrainosus; Z86.19 Personal history of other infectious and parasitic diseases; Z79.899 Other long term (current) drug therapy; Z87.891 Personal history of nicotine dependence
CPT/HCPCS: 97597; J7120; J2405

== ENCOUNTER 2021-04-02 15:00 | Outpatient (RCR) | payer MEDICARE, OTHER, SELFPAY ==
[2021-03-08 00:12] VITALS: BP 156/69; PULSE 85; RESP 18; TEMP 37.1
[2021-03-12 14:18] VITALS: BP 145/52; PULSE 96; RESP 18; TEMP 36.3; BMI 27.1
--- NOTE | 2021-03-12 16:31 | PN.PCM_ITS ---
History of Present Illness Date of Service: 03/12/21 Chief Complaint: Left leg ulcer History of Wound: This 70-year-old female with significant past medical history of polio with several medical sequela sustained a left leg ulcer that dates back to 2016. She was previously seen by vascular surgery. She had an angioplasty performed on 02-13-[address] Morel in which the aorta and iliac was successfully restored. Additional future stenting of the left limb will be considered. She denies fever, chills, nausea, vomiting. Her leg is less painful. She denies odor or redness. She is with her daughter today. She is currently residing at home. She has a dressing applied with Santyl daily. She has not been using compression on a regular basis. Her pain is reduced to her leg. She also went for prior consultation with orthopedic in regards to considering a below-knee amputation. She would like to proceed with wound care now that it looks a lot better from her revascularization intervention. She had additional IV antibiotics extended and also saw Dr. De La Cruz, infectious disease specialist, today. Objective Data Objective Data Vital Signs: Vital Signs Temp Pulse Resp BP 97.3 F L 96 18 145/52 H 03/12/21 14:18 03/12/21 14:18 03/12/21 14:18 03/12/21 14:18 Oxygen Flow Rate (L/min) 2 Oxygen Delivery Method Room Air Weight: 63.503 kg Body Mass Index (BMI) 27.1 Assessment & Plan Assessment/Plan (1) Localized edema: (2) Cellulitis of left lower extremity: (3) Chronic pain: (4) Post-polio syndrome: (5) Ulcer of left lower extremity with fat layer exposed: (6) Venous insufficiency: (7) Other specified peripheral vascular diseases: (8) Diarrhea: QUALIFIERS: Diarrhea type: unspecified type Qualified Code(s): R19.7 - Diarrhea, unspecified PLAN: I reviewed and discussed her case today.? Selective debridement was performed today with a 15 blade scalpel only as tolerated. She refused more aggressive debridement due to concern of pain.? I recommend changing the dressing with santyl daily with overlying adaptic.? To wash with soap and water instead of just saline to reduce bioburden and prevent future recurrent infections. ? Her pain is significantly reduced since her arterial intervention.? To follow-up with Dr. Morel as advised.? It is noted she had angioplasty to the aorta and iliac level to reperfuse the left lower limb on 02-12-2021.? Additional distal stenting also be considered.? ? She was reassured no local signs of infection or purulence are noted today.? She is under the management of Dr. De La Cruz, infectious disease physician who recently extended her antibiotic course.? Management is appreciated.? She is on iv cefepime cover deeper infection for duration of 6 weeks with a stop date of 03/24/2021. She also continues on oral vancomycin. For recurrent C. difficile. She will take every 3 days once the taper is done and a stool transplant will be considered for long-term control if needed. She will follow-up with Dr. De La Cruz in 2 months. We reviewed her ongoing main options which include a below the knee amputation, palliative program, versus wound healing now that recent improvement is noted with advanced wound healing product application.? She would like to proceed with operating room debridement and application of advanced wound healing product.? I offered her amnio fill and she will be contacted by early childhood education coordinator to get this scheduled promptly.? She understands additional advanced wound healing products may be applied in the wound healing center this initial step goes well.? Otherwise, I recommend proceeding with a below the knee amputation if she continues to fail conservative care.? Preoperative H&P were reviewed. Preoperative indications, planned procedure, benefits, risk, anticipated healing time and management were reviewed. The patient understands and elects proceed with surgery at this time including operating room for today debridement with application of advanced wound bone product, amnio fill. The anticipated anesthesia is MAC versus LMA and additional local. No guarantees were made. The patient understands risk and complications include but are not limited to following: pain, swelling, scarring, need for further surgery, tendon contracture, transfer lesion, arthritis, need for further surgery, delayed or nonhealing, infection, blood clot, allergic reaction, loss of limb, function, or life. The informed surgical limb and consent were signed. I answered all the patient's questions. I advised her to maintain better control her edema with intermittent elevation and muscular contraction of the involved post polio syndrome leg.? I recommend Tubigrip application and she relates she only able to tolerate this part of the time.? She is advised wearing Candelario wrap at least.? To proceed with a proper control diet and nutrition supplementation to optimize healing.? I answered all of her questions and explained the etiology of ulcer causes and the comprehensive wound healing plan. ? Her surgery is currently scheduled for 03-21-21 in the morning. Her daughter is present today and participates in the exam and plan. [id number]:? Reviewed today: Medications and allergies were reviewed and reconciled.? Reviewed 11-13-2020: BMI 29.3.? Blood pressure 145/52.? The systolic over 120 elevated and she follow-up with her primary care physician.? Diet and activity recommendations were reviewed to optimize ulcer healing and overall health.? 26 minutes was spent on this encounter. This included face to face and non face to face care including preparing for the visit, reviewing the history, performing the exam, counseling and providing education to the patient, family, or caregiver, ordering medications/test/ procedures if indicated as documented, communicating with other healthcare providers, documenting information in the medical record, interpreting / sharing this information when indicated as documented, and care coordination. Physical Exam Const alert and oriented x3 General Appearance: cooperative HEENT normocephalic Extremity Extremity Narrative: No calf tenderness Diminished pulses Muscle wasting noted Compartments remain soft to palpate Her ulcers are tender to palpate and debride General Extremity: edema and no tenderness to palpation of joints or extremities; Negative for cyanosis Skin Skin Narrative: no purulence, no streaking, no odor, no infection. The remaining ulcers are granular with healthy tissue without maceration or necrosis. The adjacent skin peeling is noted with healthy underlying tissue General Skin Exam: Negative for erythema Neuro Neuro Narrative: Hypersensitivity to light touch Psych cooperative and affect normal Debridement Note Debridement Note Post-Debridement Measurements and Additional Note: Predebridement left lower extremity 28.7 x 18.9 x 0.1 cm Post-Debridement Measurements/Treatment WC - Nurse 2 - General Ulcer CM Notes Start: 03/12/21 14:18 Freq: Status: Active Protocol: Activity Type Activity Date Activity User E-Sign Co-Sign Detail Recorded Client Recorded Date Recorded By Document 03/12/21 15:03 [email or web address] [id number] 03/12/21 15:08 FELISHA 03/12/21 15:03 Wound Center Nurse 2 #1 LLE -Time 15:03 -Correct Patient Yes -Correct Side, Site, Position Yes -Correct Procedure Yes -Procedure Performed Yes -Type of Procedure Debridement -Clinical Debridement Epidermis / Dermis -Tissue Removed Epidermis, Dermis -Post Debridement (cm) - Length 28.7 -Post Debridement (cm) - Width 18.9 -Post Debridement (cm) - Depth 0.1 -Total Square (Post) (cm) 542.43 -Area of Debridement (cm) - Length 28.7 -Area of Debridement (cm) - Width 18.9 -Total Square (Area) (cm) 542.43 -Tunneling No -Undermining/Tunneling No -Circular Undermining No -Wound/Ulcer Outcome Healed- Surgical Closure -Foul Odor after Cleansing No -Bioengineered Tissue No -Bleeding Controlled with Pressure -Type of Offloading Total Contact Cast (TCC) - Left ($) -Treatment Response Procedure Tolerated Well -Debridement - Open, 1st 20sq cm Yes -Debridement, Open, ea addt'l 20sq cm 11 or part thereof Pain Scale: 0-10 Numeric Is Patient Pain Free? Yes - Nurse 3 - General Ulcer D/C NN Start: 03/12/21 14:18 Freq: Status: Active Protocol: Activity Type Activity Date Activity User E-Sign Co-Sign Detail Recorded Client Recorded Date Recorded By Document 03/12/21 15:39 [id number] 03/12/21 15:40 RB 03/12/21 15:39 Wound Care Nurse 3 #1 LLE -Primary Dressing Applied NonAdherent Contact Layer -Other Dressing HYDROGEL -Primary Dressing Covered/Secured with Dry Gauze,Dry Gauze & Roll Gauze,Secured with Tape -Other Covering ABD Treatment Response Procedure Tolerated Well Pain Scale: 0-10 Numeric Is Patient Pain Free? Yes - Visit Discharge Discharge Condition Stable Ambulatory Status Wheelchair Transportation Private Auto Clinical Summary of Care Provided Yes Wound debrided: left leg Wound Grade/Stage: Type of Debridement: Selective debridement Anesthesia Used: 4% Lidocaine Solution Depth: Down to and including healthy tissue Percentage of wound debrided: 100 Instrument Used: #15 blade Tissue Removed: fibrous, devitalized subcutaneous, biofilm, slough Severity: Fat Layer Exposed Amount of bleeding with debridement: Mild Bleeding Controlled with: Pressure Patient tolerated procedure: Patient tolerated procedure well
[2021-03-26 15:53] VITALS: BP 152/74; PULSE 74; RESP 18; TEMP 36.7; BMI 27.1
--- NOTE | 2021-03-26 15:54 | WC ---
pt LLE outer dressing and bereket removed . inner dressing and abd left in place to not disturb aminofill.
--- NOTE | 2021-03-26 22:29 | PCM.WC.PN ---
History of Present Illness Date of Service: 03/29/21 Chief Complaint: Left leg ulcer History of Wound: This 70-year-old female with multiple comorbidities was seen less than 1 week postoperative the patient tolerated the procedure and anesthesia well. The patient was transported to the PACU with vital signs stable and vascular status intact to the surgical limb. To ice and elevate for pain and inflammation management. Postoperative x-rays were reviewed prior to leaving the operating room. Postoperative orders were entered electronically. Versa jet debridement of left leg ulcers with application of advanced wound healing product, amnio fill. She is with her daughter today. She relates her pain to her leg has resolved since surgery. She denies fever, chill, nausea, vomiting. She is also under the care of infectious disease specialist with a vancomycin taper for treatment of C. difficile and also Dr. Morel for lower extremity arterial intervention. Objective Data Objective Data Vital Signs: Vital Signs Temp Pulse Resp BP 98.1 F 74 18 152/74 H 03/26/21 15:53 03/26/21 15:53 03/26/21 15:53 03/26/21 15:53 Oxygen Flow Rate (L/min) 2 Oxygen Delivery Method Room Air Weight: 63.503 kg Body Mass Index (BMI) 27.1 Physical Exam Const alert and oriented x3 General Appearance: cooperative HEENT normocephalic Extremity Extremity Narrative: No calf tenderness Diminished pulses Muscle wasting noted Compartments remain soft to palpate General Extremity: edema and no tenderness to palpation of joints or extremities; Negative for cyanosis Skin Skin Narrative: no purulence, no streaking, no odor, no infection. The remaining ulcers are covered with the advanced wound and chronic with sutured Adaptic in place. The adjacent skin peeling is noted with healthy underlying tissue General Skin Exam: Negative for erythema Neuro Neuro Narrative: Hypersensitivity to light touch Psych cooperative and affect normal Debridement Note Debridement Note Post-Debridement Measurements and Additional Note: Post-Debridement Measurements/Treatment WC - Nurse 1 - General Ulcer Assessment Start: 03/12/21 14:18 Freq: Status: Active Protocol: AYSHA Activity Type Activity Date Activity User E-Sign Co-Sign Detail Recorded Client Recorded Date Recorded By Document 03/12/21 14:18 [facility] [id number] 03/12/21 14:22 BM Document 03/26/21 15:53 RB [id number] 03/26/21 16:06 RB 03/12/21 03/26/21 14:18 15:53 WC - Today's Visit Information Type of service Follow-up Visit Follow-up Visit (Physician/AIR CONDITIONING EQUIPMENT MECHANIC (Physician/AIR CONDITIONING EQUIPMENT MECHANIC ) ) Arrival Mode Wheelchair Wheelchair Transfer Assistance None None Accompanied by DAUGHTER Patient Identification Verified (Name & Yes Yes ) Patient Requires Transmission-Based No No Precautions Height and Weight Body Mass Index (BMI) 27.1 27.1 BMI Classification Overweight Overweight Vital Signs Temperature (97.8 F-99.1 F) 97.3 F L 98.1 F Temperature Source Temporal Temporal Pulse Rate (60-100) 96 74 Pulse Location Monitor Monitor Respiratory Rate (12-18) 18 18 Respiratory rate source Observation Observation Oxygen Delivery Method Room Air Blood Pressure (90/60-120/80) 145/52 H 152/74 H Blood Pressure Mean (mm Hg) 83 100 Source Monitor Monitor Position Sitting Blood Pressure Location Left Arm History Since Last Visit- (Skip if this is Patient's initial visit) Have you changed medications since your No No last visit? Any new allergies or adverse reactions No No Had a fall/change in ADL's that may No increase risk of falls Signs or symptoms of abuse and/or No No neglect since last visit Have you been in the hospital since your No No last visit? Has dressing in place as prescribed Yes Yes Has compression in place as prescribed Yes Yes Has offloadiing in place as prescribed N/A No Experienced any changes in pain level or No No management Pain Scale: 0-10 Numeric Is Patient Pain Free? Yes 03/26/21 15:54 Wound Center by Hilda Isaacs pt LLE outer dressing and candelario removed . inner dressing and abd left in place to not disturb aminofill. Initialized on 03/26/21 15:54 - END OF NOTE WC - Nurse 1 - General Ulcer Measurement Start: 03/12/21 14:18 Freq: Status: Active Protocol: Activity Type Activity Date Activity User E-Sign Co-Sign Detail Recorded Client Recorded Date Recorded By Document 03/12/21 14:18 [facility] [id number] 03/12/21 14:22 BM Document 03/26/21 16:08 RB [id number] 03/26/21 16:08 RB 03/12/21 03/26/21 14:18 16:08 Wound Center Nurse 1 #1 LLE -Combined with other wound No -Current Size (cm) - Length 28.7 -Current Size (cm) - Width 18.9 -Current Size (cm) - Depth 0.2 -Total Square Cm 542.43 -Photo Taken No -Epithelialization None Present -Tunneling No -Undermining/Tunneling No -Circular Undermining No -Exudate Amt Large -Exudate Type Serosanguineous -Wound Margin Distinct, Outline Attached -Granulation Amt Small (1-33%) -Granulation Quality Red -Slough/Fibrin Yes -Necrosis Amt Large (67-100%) -Necrotic Tissue Type Adherent Slough -Texture (Susana-wound Skin Appearance) Assessed, Scarring -Moisture (Susana-wound Skin Appearance) Assessed,Dry/ Scaly -Color (Susana-wound Skin Appearance) Assessed, Erythema -Temperature (Susana-wound Skin No Abnormality Appearance) (Pt Warm) -Tenderness on Palpation (Susana-wound Yes Skin Appearance) -Ulcer Cleansing Rinsed/ Irrigated with Saline -Foul Odor after Cleansing No -Anesthetic Used 5% Lidocaine Gel Lower Limb Edema Present Yes Left Calf (cm) 33.5 Left Ankle (cm) 22.2 WC - Nurse 2 - General Ulcer CM Notes Start: 03/12/21 14:18 Freq: Status: Active Protocol: Activity Type Activity Date Activity User E-Sign Co-Sign Detail Recorded Client Recorded Date Recorded By Document 03/12/21 15:03 [id number] 03/12/21 15:08 Document 03/26/21 16:15 [id number] 03/26/21 16:18 03/12/21 03/26/21 15:03 16:15 Wound Center Nurse 2 #1 LLE -Time 15:03 -Correct Patient Yes No -Correct Side, Site, Position Yes No -Correct Procedure Yes No -Procedure Performed Yes No -Type of Procedure Debridement -Clinical Debridement Epidermis / Dermis -Tissue Removed Epidermis, Dermis -Post Debridement (cm) - Length 28.7 -Post Debridement (cm) - Width 18.9 -Post Debridement (cm) - Depth 0.1 -Total Square (Post) (cm) 542.43 -Area of Debridement (cm) - Length 28.7 -Area of Debridement (cm) - Width 18.9 -Total Square (Area) (cm) 542.43 -Tunneling No -Undermining/Tunneling No -Circular Undermining No -Wound/Ulcer Outcome Healed- Not Healed Surgical Closure -Foul Odor after Cleansing No -Bioengineered Tissue No -Bleeding Controlled with Pressure -Type of Offloading Total Contact Cast (TCC) - Left ($) -Treatment Response Procedure Tolerated Well -Debridement - Open, 1st 20sq cm Yes -Debridement, Open, ea addt'l 20sq cm 11 or part thereof Pain Scale: 0-10 Numeric Is Patient Pain Free? Yes Yes - Nurse 3 - General Ulcer D/C NN Start: 03/12/21 14:18 Freq: Status: Active Protocol: Activity Type Activity Date Activity User E-Sign Co-Sign Detail Recorded Client Recorded Date Recorded By Document 03/12/21 15:39 RB [id number] 03/12/21 15:40 RB Document 03/26/21 16:25 BM [id number] 03/26/21 16:26 BM 03/12/21 03/26/21 15:39 16:25 Wound Care Nurse 3 #1 LLE -Primary Dressing Applied NonAdherent Contact Layer -Other Dressing HYDROGEL -Primary Dressing Covered/Secured with Dry Gauze,Dry Dry Gauze & Gauze & Roll Roll Gauze, Gauze,Secured Other with Tape -Other Covering ABD abd's, kerlix, coban, cotton wrap per r yaakov rn Left -Compression Wrap Candelario Wrap Treatment Response Procedure Tolerated Well Pain Scale: 0-10 Numeric Is Patient Pain Free? Yes - Visit Discharge Discharge Condition Stable Stable Ambulatory Status Wheelchair Wheelchair Transportation Private Auto Private Auto Accompanied by daughter Clinical Summary of Care Provided Yes Assessment/Plan Assessment/Plan (1) Localized edema: CODE(S): Code(s): R60.0 - Localized edema (2) Cellulitis of left lower extremity: CODE(S): Code(s): L03.116 - Cellulitis of left lower limb (3) Chronic pain: CODE(S): Code(s): G89.29 - Other chronic pain QUALIFIERS: Chronic pain type: other chronic pain Qualified Code(s): G89.29 - Other chronic pain (4) Post-polio syndrome: CODE(S): Code(s): G14 - Postpolio syndrome (5) Ulcer of left lower extremity with fat layer exposed: CODE(S): Code(s): L97.922 - Non-pressure chronic ulcer of unspecified part of left lower leg with fat layer exposed (6) Venous insufficiency: CODE(S): Code(s): I87.2 - Venous insufficiency (chronic) (peripheral) (7) Other specified peripheral vascular diseases: CODE(S): Code(s): I73.89 - Other specified peripheral vascular diseases (8) Diarrhea: CODE(S): Code(s): R19.7 - Diarrhea, unspecified QUALIFIERS: Diarrhea type: unspecified type Qualified Code(s): R19.7 - Diarrhea, unspecified PLAN: I reviewed and discussed her case today.? She is postoperative and her surgical site is intact. Debridement was not performed today. A secondary dressing was reapplied and she was advised to keep this clean, dry, and intact. A super absorption dressing was also applied. Nursing staff can also help remove with additional dressing changes if needed. This was offered. Her pain is significantly reduced since her arterial intervention and recently her leg surgery.? To follow-up with Dr. Morel as advised.? It is noted she had angioplasty to the aorta and iliac level to reperfuse the left lower limb on 02-12-2021.? Additional distal stenting also be considered.? ? To follow-up as advised. She was reassured no local signs of infection or purulence are noted today.? She is under the management of Dr. De La Cruz, infectious disease physician.? Management is appreciated.? She completed a course of iv cefepime cover deeper infection for duration of 6 weeks with a stop date of 03/24/2021. Midline was removed. 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 She will follow-up with Dr. De La Cruz as scheduled. We reviewed her ongoing main options which include a below the knee amputation, palliative program, versus wound healing now that recent improvement is noted with advanced wound healing product application.? She is doing well since surgery. Additional advanced practice will be considered for application wound healing center. Her current amnio fill application will continue to incorporate for up to 2 to 3 weeks. I advised her to maintain better control her edema with intermittent elevation and muscular contraction of the involved post polio syndrome leg.? I recommend Tubigrip application and she relates she only able to tolerate this part of the time.? She is advised wearing Candelario wrap at least.? To proceed with a proper control diet and nutrition supplementation to optimize healing.? I answered all of her questions and explained the etiology of ulcer causes and the comprehensive wound healing plan. ? The medical decision making level is low. There is noted low risk of morbidity after considering this treatment plan and diagnostic data. The problems addressed require a low medical decision making level which includes two or more minor problems, a stable chronic illness, or an acute uncomplicated illness or injury.
[2021-04-02 15:15] VITALS: BP 198/80; PULSE 82; RESP 16; TEMP 36.2; BMI 27.1
--- NOTE | 2021-04-02 16:03 | PN.PCM_ITS ---
History of Present Illness Date of Service: 04/03/21 Chief Complaint: Left leg ulcer History of Wound: This 70-year-old female with multiple comorbidities was seen less than 1 week postoperative the patient tolerated the procedure and anesthesia well. The patient was transported to the PACU with vital signs stable and vascular status intact to the surgical limb. To ice and elevate for pain and inflammation management. Postoperative x-rays were reviewed prior to leaving the operating room. Postoperative orders were entered electronically. Versa jet debridement of left leg ulcers with application of advanced wound healing product, amnio fill. She is with her daughter today. She relates her pain to her leg has resolved since surgery. She denies fever, chill, nausea, vomiting. She is also under the care of infectious disease specialist with a vancomycin taper for treatment of C. difficile and also Dr. Morel for lower extremity arterial intervention. She denies fever, chill, nausea, vomiting, active diarrhea today. Objective Data Objective Data Vital Signs: Vital Signs Temp Pulse Resp BP 97.2 F L 82 16 198/80 H 04/02/21 15:15 04/02/21 15:15 04/02/21 15:15 04/02/21 15:15 Oxygen Flow Rate (L/min) 2 Oxygen Delivery Method Room Air Weight: 63.503 kg Body Mass Index (BMI) 27.1 Physical Exam Const alert and oriented x3 General Appearance: cooperative HEENT normocephalic Extremity Extremity Narrative: No calf tenderness Diminished pulses Muscle wasting noted Compartments remain soft to palpate General Extremity: edema and no tenderness to palpation of joints or extremities; Negative for cyanosis Skin Skin Narrative: no purulence, no streaking, no odor, no infection. The remaining ulcers are covered with the advanced wound and chronic with sutured Adaptic in place. The adjacent skin peeling is noted with healthy underlying tissue with improvement in granulation tissue General Skin Exam: Negative for erythema Neuro Neuro Narrative: Hypersensitivity to light touch Psych cooperative and affect normal Debridement Note Debridement Note Post-Debridement Measurements and Additional Note: Post-Debridement Measurements/Treatment WC - Nurse 1 - General Ulcer Assessment Start: 03/12/21 14:18 Freq: Status: Active Protocol: AYSHA Activity Type Activity Date Activity User E-Sign Co-Sign Detail Recorded Client Recorded Date Recorded By Document 03/12/21 14:18 [facility] [id number] 03/12/21 14:22 BMF Document 03/26/21 15:53 RB [id number] 03/26/21 16:06 RB Document 04/02/21 15:15 MS [id number] 04/02/21 15:18 MS 03/12/21 03/26/21 04/02/21 14:18 15:53 15:15 WC - Today's Visit Information Type of service Follow-up Visit Follow-up Visit Follow-up Visit (Physician/ACCOUNT MANAGER EDUCATION (Physician/ACCOUNT MANAGER EDUCATION (Physician/ACCOUNT MANAGER EDUCATION ) ) ) Arrival Mode Wheelchair Wheelchair Wheelchair Transfer Assistance None None Accompanied by DAUGHTER Patient Identification Verified (Name & Yes Yes Yes ) Patient Requires Transmission-Based No No No Precautions Safety Precautions NA Height and Weight Body Mass Index (BMI) 27.1 27.1 27.1 BMI Classification Overweight Overweight Overweight Vital Signs Temperature (97.8 F-99.1 F) 97.3 F L 98.1 F 97.2 F L Temperature Source Temporal Temporal Temporal Pulse Rate (60-100) 96 74 82 Pulse Location Monitor Monitor Monitor Respiratory Rate (12-18) 18 18 16 Respiratory rate source Observation Observation Observation Oxygen Delivery Method Room Air Blood Pressure (90/60-120/80) 145/52 H 152/74 H 198/80 H Blood Pressure Mean (mm Hg) 83 100 119 Source Monitor Monitor Monitor Position Sitting Sitting Blood Pressure Location Left Arm Right Arm History Since Last Visit- (Skip if this is Patient's initial visit) Have you changed medications since your No No No last visit? Any new allergies or adverse reactions No No No Had a fall/change in ADL's that may No No increase risk of falls Signs or symptoms of abuse and/or No No No neglect since last visit Have you been in the hospital since your No No No last visit? Has dressing in place as prescribed Yes Yes Yes Has compression in place as prescribed Yes Yes N/A Has offloadiing in place as prescribed N/A No N/A Experienced any changes in pain level or No No No management Left Footwear No Footwear Right Footwear Regular Shoe Pain Scale: 0-10 Numeric Is Patient Pain Free? Yes 03/26/21 15:54 Wound Center by Hilda Isaacs pt LLE outer dressing and candelario removed . inner dressing and abd left in place to not disturb aminofill. Initialized on 03/26/21 15:54 - END OF NOTE WC - Nurse 1 - General Ulcer Measurement Start: 03/12/21 14:18 Freq: Status: Active Protocol: Activity Type Activity Date Activity User E-Sign Co-Sign Detail Recorded Client Recorded Date Recorded By Document 03/12/21 14:18 [facility] [id number] 03/12/21 14:22 [facility] Document 03/26/21 16:08 RB [id number] 03/26/21 16:08 RB 03/12/21 03/26/21 14:18 16:08 Wound Center Nurse 1 #1 LLE -Combined with other wound No -Current Size (cm) - Length 28.7 -Current Size (cm) - Width 18.9 -Current Size (cm) - Depth 0.2 -Total Square Cm 542.43 -Photo Taken No -Epithelialization None Present -Tunneling No -Undermining/Tunneling No -Circular Undermining No -Exudate Amt Large -Exudate Type Serosanguineous -Wound Margin Distinct, Outline Attached -Granulation Amt Small (1-33%) -Granulation Quality Red -Slough/Fibrin Yes -Necrosis Amt Large (67-100%) -Necrotic Tissue Type Adherent Slough -Texture (Susana-wound Skin Appearance) Assessed, Scarring -Moisture (Susana-wound Skin Appearance) Assessed,Dry/ Scaly -Color (Susana-wound Skin Appearance) Assessed, Erythema -Temperature (Susana-wound Skin No Abnormality Appearance) (Pt Warm) -Tenderness on Palpation (Susana-wound Yes Skin Appearance) -Ulcer Cleansing Rinsed/ Irrigated with Saline -Foul Odor after Cleansing No -Anesthetic Used 5% Lidocaine Gel Lower Limb Edema Present Yes Left Calf (cm) 33.5 Left Ankle (cm) 22.2 - Nurse 2 - General Ulcer CM Notes Start: 03/12/21 14:18 Freq: Status: Active Protocol: Activity Type Activity Date Activity User E-Sign Co-Sign Detail Recorded Client Recorded Date Recorded By Document 03/12/21 15:03 [id number] 03/12/21 15:08 Document 03/26/21 16:15 [id number] 03/26/21 16:18 JF 03/12/21 03/26/21 15:03 16:15 Wound Center Nurse 2 #1 LLE -Time 15:03 -Correct Patient Yes No -Correct Side, Site, Position Yes No -Correct Procedure Yes No -Procedure Performed Yes No -Type of Procedure Debridement -Clinical Debridement Epidermis / Dermis -Tissue Removed Epidermis, Dermis -Post Debridement (cm) - Length 28.7 -Post Debridement (cm) - Width 18.9 -Post Debridement (cm) - Depth 0.1 -Total Square (Post) (cm) 542.43 -Area of Debridement (cm) - Length 28.7 -Area of Debridement (cm) - Width 18.9 -Total Square (Area) (cm) 542.43 -Tunneling No -Undermining/Tunneling No -Circular Undermining No -Wound/Ulcer Outcome Healed- Not Healed Surgical Closure -Foul Odor after Cleansing No -Bioengineered Tissue No -Bleeding Controlled with Pressure -Type of Offloading Total Contact Cast (TCC) - Left ($) -Treatment Response Procedure Tolerated Well -Debridement - Open, 1st 20sq cm Yes -Debridement, Open, ea addt'l 20sq cm 11 or part thereof Pain Scale: 0-10 Numeric Is Patient Pain Free? Yes Yes - Nurse 3 - General Ulcer D/C NN Start: 03/12/21 14:18 Freq: Status: Active Protocol: Activity Type Activity Date Activity User E-Sign Co-Sign Detail Recorded Client Recorded Date Recorded By Document 03/12/21 15:39 [id number] 03/12/21 15:40 Document 03/26/21 16:25 [facility] [id number] 03/26/21 16:26 [facility] Document 04/02/21 16:01 [facility] [id number] 04/02/21 16:02 [facility] 03/12/21 03/26/21 04/02/21 15:39 16:25 16:01 Wound Care Nurse 3 #1 LLE -Primary Dressing Applied NonAdherent Contact Layer -Other Dressing HYDROGEL -Primary Dressing Covered/Secured with Dry Gauze,Dry Dry Gauze & Dry Gauze, Gauze & Roll Roll Gauze, Secured with Gauze,Secured Other Tape,Other with Tape -Other Covering ABD abd's, kerlix, ABD'S, KERLIX, coban, cotton UNDERCAST, wrap per r CANDELARIO CHEEK rn Left -Compression Wrap Candelario Wrap Candelario Wrap Treatment Response Procedure Procedure Tolerated Well Tolerated Well Pain Scale: 0-10 Numeric Is Patient Pain Free? Yes Yes - Visit Discharge Discharge Condition Stable Stable Stable Ambulatory Status Wheelchair Wheelchair Wheelchair Transportation Private Auto Private Auto Private Auto Accompanied by daughter DILSHAD Clinical Summary of Care Provided Yes Wound debrided: left leg Wound Grade/Stage: Type of Debridement: - (no debridement today) Assessment/Plan Assessment/Plan (1) Localized edema: CODE(S): R60.0 - Localized edema (2) Cellulitis of left lower extremity: CODE(S): L03.116 - Cellulitis of left lower limb (3) Chronic pain: CODE(S): G89.29 - Other chronic pain QUALIFIERS: Chronic pain type: other chronic pain Qualified Code(s): G89.29 - Other chronic pain (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 She is postoperative and her surgical site is intact. Debridement was not performed today. A secondary dressing was reapplied and she was advised to keep this clean, dry, and intact. A super absorption dressing was also applied. Nursing staff can also help remove with additional dressing changes if needed. This was offered. Her pain is significantly reduced since her arterial intervention and recently her leg surgery.? To follow-up with Dr. Morel as advised.? It is noted she had angioplasty to the aorta and iliac level to reperfuse the left lower limb on 02-12-2021.? Additional distal stenting also be considered.? ? To follow-up as advised. She was reassured no local signs of infection or purulence are noted today.? She is under the management of Dr. De La Cruz, infectious disease physician.? Management is appreciated.? She completed a course of iv cefepime cover deeper infection for duration of 6 weeks with a stop date of 03/24/2021. Midline was removed. 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 She will follow-up with Dr. De La Cruz as scheduled. We reviewed her ongoing main options which include a below the knee amputation, palliative program, versus wound healing now that recent improvement is noted with advanced wound healing product application.? She is doing well since surg brad. Additional advanced product application will be considered for application wound healing center. Her current amnio fill application will continue to incorporate for up to 2 to 3 weeks. We discussed the indications, benefits, application process, and management of donated skin, TheraSkin. She is amendable to proceed and a prior Auth will be initiated. This is medically necessary for limb salvage. She has failed other conservative care comprehensive wound healing treatments and this is necessary to avoid additional delays in healing. She is advised to take a half a pill of oxycodone or tramadol prior to her next visit for pain control for the anticipated debridement and Adaptic removal from surgery. I advised her to maintain better control her edema with intermittent elevation a nd muscular contraction of the involved post polio syndrome leg.? I recommend Tubigrip application and she relates she only able to tolerate this part of the time.? She is advised wearing Candelario wrap at least.? To proceed with a proper control diet and nutrition supplementation to optimize healing.? I answered all of her questions and explained the etiology of ulcer causes and the comprehensive wound healing plan. ? The medical decision making level is low. There is noted low risk of morbidity after considering this treatment plan and diagnostic data. The problems addressed require a low medical decision making level which includes two or more minor problems, a stable chronic illness, or an acute uncomplicated illness or injury.
== END 2021-04-07 23:59 ==
LOC: WC 15:00
PROVIDERS: PCP Family Medicine; Referring Provider Podiatrist; Visit Provider Podiatrist
DX: I87.2 Venous insufficiency (chronic) (peripheral) (principal); L97.922 Non-pressure chronic ulcer of unspecified part of left lower leg with fat layer exposed; L03.116 Cellulitis of left lower limb; A04.71 Enterocolitis due to Clostridium difficile, recurrent; I73.89 Other specified peripheral vascular diseases; R60.0 Localized edema; G89.29 Other chronic pain; G14 Postpolio syndrome; E66.3 Overweight; Z68.29 Body mass index [BMI] 29.0-29.9, adult; Z79.02 Long term (current) use of antithrombotics/antiplatelets; Z79.890 Hormone replacement therapy; Z79.899 Other long term (current) drug therapy; Z86.12 Personal history of poliomyelitis
CPT/HCPCS: 29445; 97597; 97598; 99213; G0463

== ENCOUNTER 2021-05-07 13:30 | Outpatient (RCR) | payer MEDICARE, OTHER, SELFPAY ==
[2021-04-08 00:08] VITALS: BP 198/80; PULSE 82; RESP 16; TEMP 36.2; BMI 59.4
[2021-04-09 16:00] VITALS: BP 192/76; PULSE 74; RESP 16; TEMP 37.2; BMI 59.4
--- NOTE | 2021-04-09 17:33 | PCM.WC.PN ---
History of Present Illness Date of Service: 04/09/21 Chief Complaint: Left leg ulcer History of Wound: This 70-year-old female with multiple comorbidities was seen for follow up of left ulcer leg debridement with application of advanced wound healing product, amnio fill. This was performed about three weeks ago and the wound veil will be removed today. She is with her daughter today. She relates her pain to her leg has resolved since surgery. She denies fever, chill, nausea, vomiting. She is also under the care of infectious disease specialist with a vancomycin taper for treatment of C. difficile and also Dr. Morel for lower extremity arterial intervention. She denies fever, chill, nausea, vomiting, active diarrhea, redness, or odors today. She is also amenable to proceed with application of TheraSkin, donated skin. Progress of Wound: improving Objective Data Objective Data Vital Signs: Vital Signs Temp Pulse Resp BP 98.9 F 74 16 192/76 H 04/09/21 16:00 04/09/21 16:00 04/09/21 16:00 04/09/21 16:00 Oxygen Flow Rate (L/min) 2 Weight: 63.503 kg Body Mass Index (BMI) 59.4 Physical Exam Const alert and oriented x3 General Appearance: cooperative HEENT normocephalic Extremity Extremity Narrative: No calf tenderness Diminished pulses Muscle wasting noted No bogginess or fluctuance General Extremity: edema and no tenderness to palpation of joints or extremities; Negative for cyanosis Skin Skin Narrative: no purulence, no streaking, no odor, no infection. The ulcer sites have reduced depth and have over 85% granulation tissue. There is no necrosis or excessive fibrous tissue buildup. The adjacent skin is hairless and atrophic General Skin Exam: Negative for erythema Neuro Neuro Narrative: Hypersensitivity via light touch Psych cooperative and affect normal Debridement Note Debridement Note Post-Debridement Measurements and Additional Note: Post-Debridement Measurements/Treatment WC - Nurse 1 - General Ulcer Assessment Start: 04/09/21 16:00 Freq: Status: Active Protocol: AYSHA Activity Type Activity Date Activity User E-Sign Co-Sign Detail Recorded Client Recorded Date Recorded By Document 04/09/21 16:00 MS Desktop 04/09/21 16:07 MS 04/09/21 16:00 WC - Today's Visit Information Type of service Follow-up Visit (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/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 ) Arrival Mode Wheelchair Transfer Assistance None Patient Identification Verified (Name & Yes ) Patient Requires Transmission-Based No Precautions Safety Precautions NA Height and Weight Body Mass Index (BMI) 59.4 BMI Classification Obese Vital Signs Temperature (97.8 F-99.1 F) 98.9 F Temperature Source Temporal Pulse Rate (60-100) 74 Pulse Location Monitor Respiratory Rate (12-18) 16 Respiratory rate source Observation Blood Pressure (90/60-120/80) 192/76 H Blood Pressure Mean (mm Hg) 114 Source Monitor Position Sitting Blood Pressure Location Right Arm History Since Last Visit- (Skip if this is Patient's initial visit) Have you changed medications since your No last visit? Any new allergies or adverse reactions No Had a fall/change in ADL's that may No increase risk of falls Signs or symptoms of abuse and/or No neglect since last visit Have you been in the hospital since your No last visit? Has dressing in place as prescribed Yes Has compression in place as prescribed N/A Has offloadiing in place as prescribed N/A Experienced any changes in pain level or No management Left Footwear No Footwear Right Footwear Regular Shoe Pain Scale: 0-10 Numeric Is Patient Pain Free? No WC - Nurse 1 - General Ulcer Measurement Start: 04/09/21 16:00 Freq: Status: Active Protocol: Activity Type Activity Date Activity User E-Sign Co-Sign Detail Recorded Client Recorded Date Recorded By Document 04/09/21 16:00 MS Desktop 04/09/21 16:07 MS 04/09/21 16:00 Wound Center Nurse 1 Left Calf (cm) 24 Left Ankle (cm) 12 WC - Nurse 2 - General Ulcer CM Notes Start: 04/09/21 16:00 Freq: Status: Active Protocol: Activity Type Activity Date Activity User E-Sign Co-Sign Detail Recorded Client Recorded Date Recorded By Document 04/09/21 16:39 [id number] 04/09/21 16:46 04/09/21 16:39 Wound Center Nurse 2 3-left medial leg -Time 16:44 -Correct Patient Yes -Correct Side, Site, Position Yes -Correct Procedure Yes -Procedure Performed Yes -Type of Procedure Debridement -Clinical Debridement Subcutaneous -Tissue Removed Subcutaneous -Post Debridement (cm) - Length 4.6 -Post Debridement (cm) - Width 4.1 -Post Debridement (cm) - Depth 0.2 -Total Square (Post) (cm) 18.86 -Area of Debridement (cm) - Length 4.6 -Area of Debridement (cm) - Width 4.1 -Total Square (Area) (cm) 18.86 -Tunneling No -Undermining/Tunneling No -Circular Undermining No -Wound/Ulcer Outcome Not Healed -Ulcer Cleansing Rinsed/ Irrigated with Saline -Foul Odor after Cleansing No -Bioengineered Tissue No -Offloading No -Treatment Response Procedure Tolerated Well -Debridement - Subq, 1st 20sq cm Yes #1 LLE lateral -Time 16:40 -Correct Patient Yes -Correct Side, Site, Position Yes -Correct Procedure Yes -Procedure Performed Yes -Type of Procedure Debridement -Clinical Debridement Subcutaneous -Tissue Removed Subcutaneous -Post Debridement (cm) - Length 9.5 -Post Debridement (cm) - Width 9.2 -Post Debridement (cm) - Depth 0.2 -Total Square (Post) (cm) 87.40 -Area of Debridement (cm) - Length 9.5 -Area of Debridement (cm) - Width 9.2 -Total Square (Area) (cm) 87.40 -Tunneling No -Undermining/Tunneling No -Circular Undermining No -Wound/Ulcer Outcome Healed- Surgical Closure -Foul Odor after Cleansing No -Bioengineered Tissue Yes -Type of Bioengineered Tissue Theraskin -Expiration Date 04/25/25 -Product Lot Number [id number] -Percent Used 100 -Lot number of Saline Used [id number] -Bleeding Controlled with Pressure -Offloading No -Treatment Response Procedure Tolerated Well -Debridement - Subq, 1st 20sq cm No -Apply Skin Sub - 1st 25 sq cm - Legs 1 -Apply Skin Sub - each addt'l 25 sq cm 3 - Legs -Theraskin (per sq cm) 116 Pain Scale: 0-10 Numeric Is Patient Pain Free? Yes WC - Nurse 3 - General Ulcer D/C NN Start: 04/09/21 16:00 Freq: Status: Active Protocol: Activity Type Activity Date Activity User E-Sign Co-Sign Detail Recorded Client Recorded Date Recorded By Document 04/09/21 16:50 [email or web address] [id number] 04/09/21 16:51 FELISHA 04/09/21 16:50 Wound Care Nurse 3 3-left medial leg -Ulcer Cleansing Rinsed/ Irrigated with Saline -Foul Odor after Cleansing No -Primary Dressing Covered/Secured with Dry Gauze & Roll Gauze, Secured with Tape #1 LLE lateral -Ulcer Cleansing Rinsed/ Irrigated with Saline -Foul Odor after Cleansing No Left -Compression Wrap Candelario Wrap Pain Scale: 0-10 Numeric Is Patient Pain Free? Yes WC - Visit Discharge Discharge Condition Stable Ambulatory Status Wheelchair Transportation Private Auto Accompanied by daughter Medication Reconcilliation completed & Yes provided to patient/care provider Clinical Summary of Care Provided Yes Wound debrided: left leg x 2 Wound Grade/Stage: Type of Debridement: Selective debridement Anesthesia Used: 4% Lidocaine Solution Depth: in the subcutaneous layer Percentage of wound debrided: 100 Instrument Used: #15 blade Tissue Removed: fibrous, devitalized subcutaneous, biofilm, slough Severity: Fat Layer Exposed Amount of bleeding with debridement: Mild Bleeding Controlled with: Pressure Patient tolerated procedure: Patient tolerated procedure well Assessment/Plan Assessment/Plan (1) Localized edema: CODE(S): R60.0 - Localized edema (2) Chronic pain: CODE(S): G89.29 - Other chronic pain QUALIFIERS: Chronic pain type: other chronic pain Qualified Code(s): G89.29 - Other chronic pain (3) Post-polio syndrome: CODE(S): G14 - Postpolio syndrome (4) Ulcer of left lower extremity with fat layer exposed: CODE(S): L97.922 - Non-pressure chronic ulcer of unspecified part of left lower leg with fat layer exposed (5) Venous insufficiency: CODE(S): I87.2 - Venous insufficiency (chronic) (peripheral) (6) Other specified peripheral vascular diseases: CODE(S): I73.89 - Other specified peripheral vascular diseases PLAN: I reviewed and discussed her case today.? The sutured Adaptic was removed today and debridement was performed as noted. I recommend application of advanced donated skin product, TheraSkin. Verbal consent was obtained. The indications, benefits, application and management were reviewed. No guarantees were made. She elects to proceed forward. This was applied according to standard protocol and was further secured with Dermabond glue, Adaptic touch wound veil, and Steri-Strips. A secondary dressing was reapplied and she was advised to keep this clean, dry, and intact. A super absorption dressing was also applied. Home health will change this every other day with multilayer compression to keep her edema reduced (greatly improved over the past 2 to 3 weeks), and to alleviate excessive moisture on this sensitive area. Her pain is significantly reduced since her arterial intervention and recently her leg surgery.? To follow-up with Dr. Morel as advised.? It is noted she had angioplasty to the aorta and iliac level to reperfusion the left lower limb on 02-12-2021.? Additional distal stenting also be considered.? ? To follow-up as advised. She was reassured no local signs of infection or purulence are noted today.? She is under the management of infectious disease physician.? Management is appreciated.? She completed a course of iv cefepime cover deeper infection for duration of 6 weeks with a stop date of 03/24/2021. 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 She will follow-up with Dr. De La Cruz as scheduled. We previously reviewed her ongoing main options which include a below the knee amputation, palliative program, versus wound healing now that recent improvement is noted with advanced wound healing product application.? She is doing well since surgery and will proceed forward with local wound care in the clinical setting. The application of advanced wound healing products are medically necessary for limb salvage. She has failed other conservative care comprehensive wound healing treatments and this is necessary to avoid additional delays in healing. She is advised to take a half a pill of oxycodone or tramadol prior to her next visit for pain control for the anticipated debridement and Adaptic removal from surgery. I advised her to maintain better control her edema with intermittent elevation and muscular contraction of the involved post polio syndrome leg.? I recommend Tubigrip application and she relates she only able to tolerate this part of the time.? She is advised wearing Candelario wrap at least.? To proceed with a proper control diet and nutrition supplementation to optimize healing.? I answered all of her questions and explained the etiology of ulcer causes and the comprehensive wound healing plan. ?
[2021-04-16 14:15] VITALS: BP 146/74; PULSE 98; RESP 18; TEMP 36.8; BMI 59.4
--- NOTE | 2021-04-16 14:21 | WC ---
keysha left intact
--- NOTE | 2021-04-16 16:21 | PN.PCM_ITS ---
History of Present Illness Date of Service: 04/16/21 Chief Complaint: Left leg ulcer History of Wound: This 70-year-old female with multiple comorbidities was seen for follow up of left ulcer leg debridement with application of advanced wound healing product, amnio fill. She has had TheraSkin applied last week and is here for skin substitute check. She is with her daughter today. She relates her pain to her leg has resolved since surgery. She denies fever, chill, nausea, vomiting. Progress of Wound: improving and stable Objective Data Objective Data Vital Signs: Vital Signs Temp Pulse Resp BP 98.2 F 98 18 146/74 H 04/16/21 14:15 04/16/21 14:15 04/16/21 14:15 04/16/21 14:15 Oxygen Flow Rate (L/min) 2 Oxygen Delivery Method Room Air Weight: 63.503 kg Body Mass Index (BMI) 59.4 Physical Exam Const alert and oriented x3 General Appearance: cooperative HEENT normocephalic Extremity Extremity Narrative: No calf tenderness Diminished pulses Muscle wasting noted No bogginess or fluctuance General Extremity: edema and no tenderness to palpation of joints or extremities; Negative for cyanosis Skin Skin Narrative: no purulence, no streaking, no odor, no infection. There is no necrosis or excessive fibrous tissue buildup. The adjacent skin is hairless and atrophic. The TheraSkin graft substitute remains intact with wound veil and Steri-Strips. This is incorporating well General Skin Exam: Negative for erythema Neuro Neuro Narrative: Hypersensitivity via light touch Psych cooperative and affect normal Debridement Note Debridement Note Post-Debridement Measurements and Additional Note: Post-Debridement Measurements/Treatment - Nurse 1 - General Ulcer Assessment Start: 04/09/21 16:00 Freq: Status: Active Protocol: WC.LOWTAMIT Activity Type Activity Date Activity User E-Sign Co-Sign Detail Recorded Client Recorded Date Recorded By Document 04/09/21 16:00 MS Desktop 04/09/21 16:07 MS Document 04/16/21 14:15 [facility] [id number] 04/16/21 14:21 [facility] 04/09/21 04/16/21 16:00 14:15 - Today's Visit Information Type of service Follow-up Visit Follow-up Visit (Physician/LENS BLOCKER (Physician/LENS BLOCKER ) ) Arrival Mode Wheelchair Wheelchair Transfer Assistance None None Patient Identification Verified (Name & Yes Yes ) Patient Requires Transmission-Based No No Precautions Safety Precautions NA Height and Weight Body Mass Index (BMI) 59.4 59.4 BMI Classification Obese Obese Vital Signs Temperature (97.8 F-99.1 F) 98.9 F 98.2 F Temperature Source Temporal Temporal Pulse Rate (60-100) 74 98 Pulse Location Monitor Monitor Respiratory Rate (12-18) 16 18 Respiratory rate source Observation Observation Oxygen Delivery Method Room Air Blood Pressure (90/60-120/80) 192/76 H 146/74 H Blood Pressure Mean (mm Hg) 114 98 Source Monitor Monitor Position Sitting Sitting Blood Pressure Location Right Arm History Since Last Visit- (Skip if this is Patient's initial visit) Have you changed medications since your No last visit? Any new allergies or adverse reactions No Had a fall/change in ADL's that may No increase risk of falls Signs or symptoms of abuse and/or No neglect since last visit Have you been in the hospital since your No last visit? Has dressing in place as prescribed Yes Has compression in place as prescribed N/A Has offloadiing in place as prescribed N/A Experienced any changes in pain level or No management Left Footwear No Footwear Right Footwear Regular Shoe Pain Scale: 0-10 Numeric Is Patient Pain Free? No WC - Nurse 1 - General Ulcer Measurement Start: 04/09/21 16:00 Freq: Status: Active Protocol: Activity Type Activity Date Activity User E-Sign Co-Sign Detail Recorded Client Recorded Date Recorded By Document 04/09/21 16:00 MS Desktop 04/09/21 16:07 MS Document 04/16/21 14:15 [facility] [id number] 04/16/21 14:21 [facility] 04/09/21 04/16/21 16:00 14:15 3-left medial leg -Combined with other wound No -Current Size (cm) - Length 0.1 -Current Size (cm) - Width 0.1 -Current Size (cm) - Depth 0.1 -Total Square Cm 0.01 #1 LLE lateral -Combined with other wound No -Current Size (cm) - Length 0.1 -Current Size (cm) - Width 0.1 -Current Size (cm) - Depth 0.1 -Total Square Cm 0.01 Wound Center Nurse 1 Left Calf (cm) 24 Left Ankle (cm) 12 WC - Nurse 2 - General Ulcer CM Notes Start: 04/09/21 16:00 Freq: Status: Active Protocol: Activity Type Activity Date Activity User E-Sign Co-Sign Detail Recorded Client Recorded Date Recorded By Document 04/09/21 16:39 FELISHA [id number] 04/09/21 16:46 JF Document 04/16/21 14:44 [id number] 04/16/21 14:44 JF 04/09/21 04/16/21 16:39 14:44 Wound Center Nurse 2 3-left medial leg -Time 16:44 -Correct Patient Yes No -Correct Side, Site, Position Yes No -Correct Procedure Yes No -Procedure Performed Yes No -Type of Procedure Debridement -Clinical Debridement Subcutaneous -Tissue Removed Subcutaneous -Post Debridement (cm) - Length 4.6 -Post Debridement (cm) - Width 4.1 -Post Debridement (cm) - Depth 0.2 -Total Square (Post) (cm) 18.86 -Area of Debridement (cm) - Length 4.6 -Area of Debridement (cm) - Width 4.1 -Total Square (Area) (cm) 18.86 -Tunneling No -Undermining/Tunneling No -Circular Undermining No -Wound/Ulcer Outcome Not Healed Not Healed -Ulcer Cleansing Rinsed/ Irrigated with Saline -Foul Odor after Cleansing No -Bioengineered Tissue No -Offloading No -Treatment Response Procedure Tolerated Well -Debridement - Subq, 1st 20sq cm Yes #1 LLE lateral -Time 16:40 -Correct Patient Yes No -Correct Side, Site, Position Yes No -Correct Procedure Yes No -Procedure Performed Yes No -Type of Procedure Debridement -Clinical Debridement Subcutaneous -Tissue Removed Subcutaneous -Post Debridement (cm) - Length 9.5 -Post Debridement (cm) - Width 9.2 -Post Debridement (cm) - Depth 0.2 -Total Square (Post) (cm) 87.40 -Area of Debridement (cm) - Length 9.5 -Area of Debridement (cm) - Width 9.2 -Total Square (Area) (cm) 87.40 -Tunneling No -Undermining/Tunneling No -Circular Undermining No -Wound/Ulcer Outcome Healed- Not Healed Surgical Closure -Foul Odor after Cleansing No -Bioengineered Tissue Yes -Type of Bioengineered Tissue Theraskin -Expiration Date 04/25/25 -Product Lot Number [id number] -Percent Used 100 -Lot number of Saline Used [id number] -Bleeding Controlled with Pressure -Offloading No -Treatment Response Procedure Tolerated Well -Debridement - Subq, 1st 20sq cm No -Apply Skin Sub - 1st 25 sq cm - Legs 1 -Apply Skin Sub - each addt'l 25 sq cm 3 - Legs -Theraskin (per sq cm) 116 Pain Scale: 0-10 Numeric Is Patient Pain Free? Yes Yes - Nurse 3 - General Ulcer D/C NN Start: 04/09/21 16:00 Freq: Status: Active Protocol: Activity Type Activity Date Activity User E-Sign Co-Sign Detail Recorded Client Recorded Date Recorded By Document 04/09/21 16:50 [id number] 04/09/21 16:51 Document 04/16/21 14:52 [facility] [id number] 04/16/21 14:53 [facility] 04/09/21 04/16/21 16:50 14:52 Wound Care Nurse 3 3-left medial leg -Ulcer Cleansing Rinsed/ Irrigated with Saline -Foul Odor after Cleansing No -Other Dressing theraskin left intact -Primary Dressing Covered/Secured with Dry Gauze & Dry Gauze & Roll Gauze, Roll Gauze, Secured with Secured with Tape Tape,Other -Other Covering abd, kerlix, stockinette #1 LLE lateral -Ulcer Cleansing Rinsed/ Irrigated with Saline -Foul Odor after Cleansing No -Primary Dressing Applied Other -Other Dressing theraskin left intact -Primary Dressing Covered/Secured with Dry Gauze & Roll Gauze, Secured with Tape,Other -Other Covering kerlix, abd, stockinette Left -Compression Wrap Candelario Wrap Candelario Wrap Treatment Response Procedure Tolerated Well Pain Scale: 0-10 Numeric Is Patient Pain Free? 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 Debridement was not performed today. The TheraSkin is intact and incorporating well. This was left in place with wound veil and Steri-Strips. Additional debridement and application of an updated TheraSkin will be considered next week at her follow- up visit. She was reassured there are no local signs of infection. She will take a half of the [place] for preprocedure pain control prior to next visit if she feels this is necessary. A secondary dressing was reapplied and she was advised to keep this clean, dry, and intact. A super absorption dressing was also applied. Home health will change this every other day with multilayer compression to keep her edema reduced (greatly improved over the past 2 to 3 weeks), and to alleviate excessive moisture on this sensitive area. Her pain is significantly reduced since her arterial intervention and recently her leg surgery.? To follow-up with Dr. Morel as advised.? It is noted she had angioplasty to the aorta and iliac level to reperfusion the left lower limb on 02-12-2021.? Additional distal stenting also be considered.? ? To follow-up as advised. She was reassured no local signs of infection or purulence are noted today.? She is under the management of infectious disease physician.? Management is appreciated.? She completed a course of iv cefepime cover deeper infection for duration of 6 weeks with a stop date of 03/24/2021. 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 She will follow-up with Dr. De La Cruz as scheduled. We previously reviewed her ongoing main options which include a below the knee amputation, palliative program, versus wound healing now that recent improvement is noted with advanced wound healing product application.? She is doing well since surgery and will proceed forward with local wound care in the clinical setting. The application of advanced wound healing products are medically necessary for limb salvage. She has failed other conservative care comprehensive wound healing treatments and this is necessary to avoid additional delays in healing. I advised her to maintain better control her edema with intermittent elevation and muscular contraction of the involved post polio syndrome leg.? I recommend Tubigrip application and she relates she only able to tolerate this part of the time.? It is okay for her to wear a properly fitted and protected shoe and to weight-bear as tolerated to the left lower extremity. She is advised wearing Candelario wrap at least.? To proceed with a proper control diet and nutrition supplementation to optimize healing.? I answered all of her questions and explained the etiology of ulcer causes and the comprehensive wound healing plan. ? Note: [employer] speech recognition educational aide software was used to create portions of this document. Sound-alike and misspelled words, as well as other educational aide errors may be contained in the documentation. The medical decision making level is low. There is noted low risk of morbidity after considering this treatment plan and diagnostic data. The problems addressed require a low medical decision making level which includes two or more minor problems, a stable chronic illness, or an acute uncomplicated illness or injury.
[2021-04-23 15:38] VITALS: BP 151/65; PULSE 85; RESP 18; TEMP 36.4; BMI 59.4
--- NOTE | 2021-04-23 16:31 | PN.PCM_ITS ---
History of Present Illness Date of Service: 04/23/21 Chief Complaint: Left leg ulcer History of Wound: This 70-year-old female with multiple comorbidities was seen for follow up of left ulcer leg debridement with application of advanced wound healing product, amnio fill. She has had TheraSkin applied two weeks ago, and is here for potential reapplication. She is with her daughter today. She relates her pain to her leg has resolved since surgery. She denies fever, chill, nausea, vomiting. Progress of Wound: improving Objective Data Objective Data Vital Signs: Vital Signs Temp Pulse Resp BP 97.5 F L 85 18 151/65 H 04/23/21 15:38 04/23/21 15:38 04/23/21 15:38 04/23/21 15:38 Oxygen Flow Rate (L/min) 2 Oxygen Delivery Method Room Air Weight: 63.503 kg Body Mass Index (BMI) 59.4 Physical Exam Const alert and oriented x3 General Appearance: cooperative HEENT normocephalic Extremity Extremity Narrative: No calf tenderness Diminished pulses Muscle wasting noted No bogginess or fluctuance General Extremity: edema and no tenderness to palpation of joints or extremities; Negative for cyanosis Skin Skin Narrative: no purulence, no streaking, no odor, no infection. There is no necrosis or excessive fibrous tissue buildup. The adjacent skin is hairless and atrophic. The TheraSkin graft substitute remains intact with wound veil and Steri-Strips. This is incorporating well. Upon mechanical removal of residual graft material moderate hematogenous drainage is noted and this is healthy and granular. Pressure was applied to maintain hemostasis. General Skin Exam: Negative for erythema Neuro Neuro Narrative: Hypersensitivity via light touch Psych cooperative and affect normal Debridement Note Debridement Note Post-Debridement Measurements and Additional Note: Post-Debridement Measurements/Treatment WC - Nurse 1 - General Ulcer Assessment Start: 04/09/21 16:00 Freq: Status: Active Protocol: TOMÁS.JOSSE Activity Type Activity Date Activity User E-Sign Co-Sign Detail Recorded Client Recorded Date Recorded By Document 04/09/21 16:00 MS Desktop 04/09/21 16:07 MS Document 04/16/21 14:15 BMF [id number] 04/16/21 14:21 BMF Document 04/23/21 15:38 RB [id number] 04/23/21 15:41 RB 04/09/21 04/16/2121 16:00 14:15 15:38 - Today's Visit Information Type of service Follow-up Visit Follow-up Visit Follow-up Visit (Physician/STRATEGY DIRECTOR (Physician/STRATEGY DIRECTOR (Physician/STRATEGY DIRECTOR ) ) ) Arrival Mode Wheelchair Wheelchair Wheelchair Transfer Assistance None None None Patient Identification Verified (Name & Yes Yes Yes ) Patient Requires Transmission-Based No No No Precautions Safety Precautions NA Height and Weight Body Mass Index (BMI) 59.4 59.4 59.4 BMI Classification Obese Obese Obese Vital Signs Temperature (97.8 F-99.1 F) 98.9 F 98.2 F 97.5 F L Temperature Source Temporal Temporal Temporal Pulse Rate (60-100) 74 98 85 Pulse Location Monitor Monitor Monitor Respiratory Rate (12-18) 16 18 18 Respiratory rate source Observation Observation Observation Oxygen Delivery Method Room Air Blood Pressure (90/60-120/80) 192/76 H 146/74 H 151/65 H Blood Pressure Mean (mm Hg) 114 98 93 Source Monitor Monitor Monitor Position Sitting Sitting Semi-Fowlers Blood Pressure Location Right Arm Left Arm History Since Last Visit- (Skip if this is Patient's initial visit) Have you changed medications since your No No last visit? Any new allergies or adverse reactions No No Had a fall/change in ADL's that may No No increase risk of falls Signs or symptoms of abuse and/or No No neglect since last visit Have you been in the hospital since your No No last visit? Has dressing in place as prescribed Yes Yes Has compression in place as prescribed N/A Yes Has offloadiing in place as prescribed N/A No Experienced any changes in pain level or No No management Left Footwear No Footwear Regular Shoe Right Footwear Regular Shoe Regular Shoe Pain Scale: 0-10 Numeric Is Patient Pain Free? No Yes - Nurse 1 - General Ulcer Measurement Start: 04/09/21 16:00 Freq: Status: Active Protocol: Activity Type Activity Date Activity User E-Sign Co-Sign Detail Recorded Client Recorded Date Recorded By Document 04/09/21 16:00 MS Desktop 04/09/21 16:07 MS Document 04/16/21 14:15 BM [id number] 04/16/21 14:21 BMF Document 04/23/21 15:38 RB [id number] 04/23/21 15:41 RB 04/09/21 04/16/21 04/23/21 16:00 14:15 15:38 3-left medial leg -Combined with other wound No No -Current Size (cm) - Length 0.1 -Current Size (cm) - Width 0.1 -Current Size (cm) - Depth 0.1 -Total Square Cm 0.01 -Tunneling No -Undermining/Tunneling No -Circular Undermining No -Exudate Amt Medium -Exudate Type Serosanguineous -Wound Margin Flat & Intact -Granulation Amt Medium (34-66%) -Granulation Quality [place] -Slough/Fibrin Yes -Necrosis Amt Small (1-33%) -Necrotic Tissue Type Adherent Slough -Structure Exposed N/A -Texture (Susana-wound Skin Appearance) Assessed, Friable -Moisture (Susana-wound Skin Appearance) Assessed -Color (Susana-wound Skin Appearance) Assessed -Temperature (Susana-wound Skin No Abnormality Appearance) (Pt Warm) -Tenderness on Palpation (Susana-wound No Skin Appearance) -Ulcer Cleansing Wound Cleanser -Foul Odor after Cleansing No -Anesthetic Used 4% Lidocaine Solution,5% Lidocaine Gel #1 LLE lateral -Combined with other wound No -Current Size (cm) - Length 0.1 -Current Size (cm) - Width 0.1 -Current Size (cm) - Depth 0.1 -Total Square Cm 0.01 -Photo Taken No -Tunneling No -Undermining/Tunneling No -Circular Undermining No -Exudate Amt Medium -Exudate Type Serosanguineous -Wound Margin Flat & Intact -Granulation Amt Medium (34-66%) -Granulation Quality [place] -Slough/Fibrin Yes -Necrosis Amt Small (1-33%) -Necrotic Tissue Type Adherent Slough -Structure Exposed N/A -Texture (Susana-wound Skin Appearance) Assessed -Moisture (Susana-wound Skin Appearance) Assessed -Color (Susana-wound Skin Appearance) Assessed -Temperature (Susana-wound Skin No Abnormality Appearance) (Pt Warm) -Tenderness on Palpation (Susana-wound No Skin Appearance) -Ulcer Cleansing Wound Cleanser -Foul Odor after Cleansing No -Anesthetic Used 4% Lidocaine Solution,5% Lidocaine Gel Wound Center Nurse 1 Lower Limb Edema Present Yes Left Calf (cm) 24 30.5 Left Ankle (cm) 12 20.5 WC - Nurse 2 - General Ulcer CM Notes Start: 04/09/21 16:00 Freq: Status: Active Protocol: Activity Type Activity Date Activity User E-Sign Co-Sign Detail Recorded Client Recorded Date Recorded By Document 04/09/21 16:39 [id number] 04/09/21 16:46 JF Document 04/16/21 14:44 [id number] 04/16/21 14:44 JF 04/09/21 04/16/21 16:39 14:44 Wound Center Nurse 2 3-left medial leg -Time 16:44 -Correct Patient Yes No -Correct Side, Site, Position Yes No -Correct Procedure Yes No -Procedure Performed Yes No -Type of Procedure Debridement -Clinical Debridement Subcutaneous -Tissue Removed Subcutaneous -Post Debridement (cm) - Length 4.6 -Post Debridement (cm) - Width 4.1 -Post Debridement (cm) - Depth 0.2 -Total Square (Post) (cm) 18.86 -Area of Debridement (cm) - Length 4.6 -Area of Debridement (cm) - Width 4.1 -Total Square (Area) (cm) 18.86 -Tunneling No -Undermining/Tunneling No -Circular Undermining No -Wound/Ulcer Outcome Not Healed Not Healed -Ulcer Cleansing Rinsed/ Irrigated with Saline -Foul Odor after Cleansing No -Bioengineered Tissue No -Offloading No -Treatment Response Procedure Tolerated Well -Debridement - Subq, 1st 20sq cm Yes #1 LLE lateral -Time 16:40 -Correct Patient Yes No -Correct Side, Site, Position Yes No -Correct Procedure Yes No -Procedure Performed Yes No -Type of Procedure Debridement -Clinical Debridement Subcutaneous -Tissue Removed Subcutaneous -Post Debridement (cm) - Length 9.5 -Post Debridement (cm) - Width 9.2 -Post Debridement (cm) - Depth 0.2 -Total Square (Post) (cm) 87.40 -Area of Debridement (cm) - Length 9.5 -Area of Debridement (cm) - Width 9.2 -Total Square (Area) (cm) 87.40 -Tunneling No -Undermining/Tunneling No -Circular Undermining No -Wound/Ulcer Outcome Healed- Not Healed Surgical Closure -Foul Odor after Cleansing No -Bioengineered Tissue Yes -Type of Bioengineered Tissue Theraskin -Expiration Date 04/25/25 -Product Lot Number [id number] -Percent Used 100 -Lot number of Saline Used [id number] -Bleeding Controlled with Pressure -Offloading No -Treatment Response Procedure Tolerated Well -Debridement - Subq, 1st 20sq cm No -Apply Skin Sub - 1st 25 sq cm - Legs 1 -Apply Skin Sub - each addt'l 25 sq cm 3 - Legs -Theraskin (per sq cm) 116 Pain Scale: 0-10 Numeric Is Patient Pain Free? Yes Yes - Nurse 3 - General Ulcer D/C NN Start: 04/09/21 16:00 Freq: Status: Active Protocol: Activity Type Activity Date Activity User E-Sign Co-Sign Detail Recorded Client Recorded Date Recorded By Document 04/09/21 16:50 [id number] 04/09/21 16:51 Document 04/16/21 14:52 [facility] [id number] 04/16/21 14:53 [facility] Document 04/23/21 16:16 [facility] Desktop 04/23/21 16:16 [facility] 04/09/21 04/16/21 04/23/21 16:50 14:52 16:16 Wound Care Nurse 3 3-left medial leg -Ulcer Cleansing Rinsed/ Irrigated with Saline -Foul Odor after Cleansing No -Other Dressing theraskin left theraskin intact -Primary Dressing Covered/Secured with Dry Gauze & Dry Gauze & Dry Gauze & Roll Gauze, Roll Gauze, Roll Gauze, Secured with Secured with Secured with Tape Tape,Other Tape,Other -Other Covering abd, oma, abd, drsg per terra schroeder rn #1 LLE lateral -Ulcer Cleansing Rinsed/ Irrigated with Saline -Foul Odor after Cleansing No -Primary Dressing Applied Other -Other Dressing theraskin left theraskin intact -Primary Dressing Covered/Secured with Dry Gauze & Dry Gauze & Roll Gauze, Roll Gauze, Secured with Secured with Tape,Other Tape,Other -Other Covering kerlix, abd, abd, drsg per terra schroeder rn Left -Compression Wrap Candelario Wrap Candelario Wrap Candelario Wrap Treatment Response Procedure Procedure Tolerated Well Tolerated Well Pain Scale: 0-10 Numeric Is Patient Pain Free? 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 Debridement was performed today through the mechanism of removing the residual previously applied TheraSkin. The hematogenous drainage was noted and pressure was applied to maintain hemostasis. The post debridement ulcer measurement size was the same as the predebridement measurement size. She was reassured there are no local signs of infection. She was premedicated with a half of a [place] tablet and remained alert and intact. Verbal consent was obtained for new application of TheraSkin. This was applied according her standard protocol was secured with glue and Steri-Strips. Next a wound veil and Steri-Strips were additionally applied. A secondary dressing was reapplied and she was advised to keep this clean, dry, and intact. A super absorption dressing was also applied. Home health will change this every other day with multilayer compression to keep her edema reduced (greatly improved over the past 2 to 3 weeks), and to alleviate excessive moisture on this sensitive area. Her pain is significantly reduced since her arterial intervention and recently her leg surgery.? To follow-up with Dr. Morel as advised.? It is noted she had angioplasty to the aorta and iliac level to reperfusion the left lower limb on 02-12-2021.? Additional distal stenting also be considered.? ? To follow-up as advised. She was reassured no local signs of infection or purulence are noted today.? She is under the management of infectious disease physician.? Management is appreciated.? She completed a course of iv cefepime cover deeper infection for duration of 6 weeks with a stop date of 03/24/2021. 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 She will follow-up with Dr. De La Cruz as scheduled. We previously reviewed her ongoing main options which include a below the knee amputation, palliative program, versus wound healing now that recent improvement is noted with advanced wound healing product application.? She is doing well since surgery and will proceed forward with local wound care in the clinical setting. The application of advanced wound healing products are medically necessary for limb salvage. She has failed other conservative care comprehensive wound healing treatments and this is necessary to avoid additional delays in healing. I advised her to maintain better control her edema with intermittent elevation and muscular contraction of the involved post polio syndrome leg.? I recommend Tubigrip application and she relates she only able to tolerate this part of the time.? It is okay for her to wear a properly fitted and protected shoe and to weight-bear as tolerated to the left lower extremity. She is advised wearing Candelario wrap at least.? To proceed with a proper control diet and nutrition supplementation to optimize healing.? I answered all of her questions and explained the etiology of ulcer causes and the comprehensive wound healing plan. ? Note: [employer] speech recognition pastry mixer software was used to create portions of this document. Sound-alike and misspelled words, as well as other pastry mixer errors may be contained in the documentation.
[2021-04-30 15:01] VITALS: BP 168/61; PULSE 81; RESP 18; TEMP 36.4; BMI 59.4
--- NOTE | 2021-04-30 16:13 | PCM.WC.PN ---
History of Present Illness Date of Service: 04/30/21 Chief Complaint: Left leg ulcer History of Wound: This 70-year-old female with multiple comorbidities was seen for follow up of left ulcer leg debridement with application of advanced wound healing product, amnio fill. She has had TheraSkin applied one week ago, and is here for reevaluation. She is with her daughter today. She denies fever, chill, nausea, vomiting. She denies redness or odor. She relates she had excessive drainage after her last visit and the secondary dressing needed to be reapplied later that evening. She did not have any additional episodes of bleeding since that time. She is on Plavix and is status post vascular intervention. Progress of Wound: improving Objective Data Objective Data Vital Signs: Vital Signs Temp Pulse Resp BP 97.5 F L 81 18 168/61 H 04/30/21 15:01 04/30/21 15:01 04/30/21 15:01 04/30/21 15:01 Oxygen Flow Rate (L/min) 2 Oxygen Delivery Method Room Air Weight: 63.503 kg Body Mass Index (BMI) 59.4 Physical Exam Const alert and oriented x3 General Appearance: cooperative HEENT normocephalic Extremity Extremity Narrative: No calf tenderness Diminished pulses Muscle wasting noted No bogginess or fluctuance Left lower limb edema reduced and compartments remain soft to palpate General Extremity: edema and no tenderness to palpation of joints or extremities; Negative for cyanosis Skin Skin Narrative: no purulence, no streaking, no odor, no infection. There is no necrosis or excessive fibrous tissue buildup. The adjacent skin is hairless and atrophic. The TheraSkin graft substitute remains intact with wound veil and Steri-Strips. This is incorporating well. No active hematogenous drainage is noted. General Skin Exam: Negative for erythema Neuro Neuro Narrative: Hypersensitivity via light touch Psych cooperative and affect normal Debridement Note Debridement Note Post-Debridement Measurements and Additional Note: Post-Debridement Measurements/Treatment TOMÁS - Nurse 1 - General Ulcer Assessment Start: 04/09/21 16:00 Freq: Status: Active Protocol: AYSHA Activity Type Activity Date Activity User E-Sign Co-Sign Detail Recorded Client Recorded Date Recorded By Document 04/09/21 16:00 ML Desktop 04/09/21 16:07 ML Document 04/16/21 14:15 BMF [id number] 04/16/21 14:21 BMF Document 04/23/21 15:38 RB [id number] 04/23/21 15:41 RB Document 04/30/21 15:01 RB [id number] 04/30/21 15:06 RB 04/09/21 04/16/21 04/23/21 16:00 14:15 15:38 WC - Today's Visit Information Type of service Follow-up Visit Follow-up Visit Follow-up Visit (Physician/E [employer]ER[employer] SOLUTION ARCHITECT (Physician/E [employer]ERCE SOLUTION ARCHITECT (Physician/E [employer] SOLUTION ARCHITECT ) ) ) Arrival Mode Wheelchair Wheelchair Wheelchair Transfer Assistance None None None Patient Identification Verified (Name & Yes Yes Yes ) Patient Requires Transmission-Based No No No Precautions Safety Precautions NA Height and Weight Body Mass Index (BMI) 59.4 59.4 59.4 BMI Classification Obese Obese Obese Vital Signs Temperature (97.8 F-99.1 F) 98.9 F 98.2 F 97.5 F L Temperature Source Temporal Temporal Temporal Pulse Rate (60-100) 74 98 85 Pulse Location Monitor Monitor Monitor Respiratory Rate (12-18) 16 18 18 Respiratory rate source Observation Observation Observation Oxygen Delivery Method Room Air Blood Pressure (90/60-120/80) 192/76 H 146/74 H 151/65 H Blood Pressure Mean (mm Hg) 114 98 93 Source Monitor Monitor Monitor Position Sitting Sitting Semi-Fowlers Blood Pressure Location Right Arm Left Arm History Since Last Visit- (Skip if this is Patient's initial visit) Have you changed medications since your No No last visit? Any new allergies or adverse reactions No No Had a fall/change in ADL's that may No No increase risk of falls Signs or symptoms of abuse and/or No No neglect since last visit Have you been in the hospital since your No No last visit? Has dressing in place as prescribed Yes Yes Has compression in place as prescribed N/A Yes Has offloadiing in place as prescribed N/A No Experienced any changes in pain level or No No management Left Footwear No Footwear Regular Shoe Right Footwear Regular Shoe Regular Shoe Pain Scale: 0-10 Numeric Is Patient Pain Free? No Yes 04/30/21 15:01 WC - Today's Visit Information Type of service Follow-up Visit (Physician/E [employer] SOLUTION ARCHITECT ) Arrival Mode Wheelchair Transfer Assistance None Patient Identification Verified (Name & Yes ) Patient Requires Transmission-Based No Precautions Safety Precautions Height and Weight Body Mass Index (BMI) 59.4 BMI Classification Obese Vital Signs Temperature (97.8 F-99.1 F) 97.5 F L Temperature Source Temporal Pulse Rate (60-100) 81 Pulse Location Monitor Respiratory Rate (12-18) 18 Respiratory rate source Observation Oxygen Delivery Method Blood Pressure (90/60-120/80) 168/61 H Blood Pressure Mean (mm Hg) 96 Source Monitor Position Semi-Fowlers Blood Pressure Location Left Arm History Since Last Visit- (Skip if this is Patient's initial visit) Have you changed medications since your No last visit? Any new allergies or adverse reactions No Had a fall/change in ADL's that may No increase risk of falls Signs or symptoms of abuse and/or No neglect since last visit Have you been in the hospital since your No last visit? Has dressing in place as prescribed Yes Has compression in place as prescribed Yes Has offloadiing in place as prescribed No Experienced any changes in pain level or No management Left Footwear Right Footwear Pain Scale: 0-10 Numeric Is Patient Pain Free? Yes WC - Nurse 1 - General Ulcer Measurement Start: 04/09/21 16:00 Freq: Status: Active Protocol: Activity Type Activity Date Activity User E-Sign Co-Sign Detail Recorded Client Recorded Date Recorded By Document 04/09/21 16:00 ML Desktop 04/09/21 16:07 ML Document 04/16/21 14:15 [facility] [id number] 04/16/21 14:21 [facility] Document 04/23/21 15:38 RB [id number] 04/23/21 15:41 RB Document 04/30/21 15:01 RB [id number] 04/30/21 15:06 RB 04/09/21 04/16/21 04/23/21 16:00 14:15 15:38 3-left medial leg -Combined with other wound No No -Current Size (cm) - Length 0.1 -Current Size (cm) - Width 0.1 -Current Size (cm) - Depth 0.1 -Total Square Cm 0.01 -Tunneling No -Undermining/Tunneling No -Circular Undermining No -Exudate Amt Medium -Exudate Type Serosanguineous -Wound Margin Flat & Intact -Granulation Amt Medium (34-66%) -Granulation Quality [place] -Slough/Fibrin Yes -Necrosis Amt Small (1-33%) -Necrotic Tissue Type Adherent Slough -Structure Exposed N/A -Texture (Susana-wound Skin Appearance) Assessed, Friable -Moisture (Susana-wound Skin Appearance) Assessed -Color (Susana-wound Skin Appearance) Assessed -Temperature (Susana-wound Skin No Abnormality Appearance) (Pt Warm) -Tenderness on Palpation (Susana-wound No Skin Appearance) -Ulcer Cleansing Wound Cleanser -Foul Odor after Cleansing No -Anesthetic Used 4% Lidocaine Solution,5% Lidocaine Gel #1 LLE lateral -Combined with other wound No -Current Size (cm) - Length 0.1 -Current Size (cm) - Width 0.1 -Current Size (cm) - Depth 0.1 -Total Square Cm 0.01 -Photo Taken No -Tunneling No -Undermining/Tunneling No -Circular Undermining No -Exudate Amt Medium -Exudate Type Serosanguineous -Wound Margin Flat & Intact -Granulation Amt Medium (34-66%) -Granulation Quality [place] -Slough/Fibrin Yes -Necrosis Amt Small (1-33%) -Necrotic Tissue Type Adherent Slough -Structure Exposed N/A -Texture (Susana-wound Skin Appearance) Assessed -Moisture (Susana-wound Skin Appearance) Assessed -Color (Susana-wound Skin Appearance) Assessed -Temperature (Susana-wound Skin No Abnormality Appearance) (Pt Warm) -Tenderness on Palpation (Susana-wound No Skin Appearance) -Ulcer Cleansing Wound Cleanser -Foul Odor after Cleansing No -Anesthetic Used 4% Lidocaine Solution,5% Lidocaine Gel Wound Center Nurse 1 Lower Limb Edema Present Yes Left Calf (cm) 24 30.5 Left Ankle (cm) 12 20.5 04/30/21 15:01 3-left medial leg -Combined with other wound No -Current Size (cm) - Length -Current Size (cm) - Width -Current Size (cm) - Depth -Total Square Cm -Tunneling -Undermining/Tunneling -Circular Undermining -Exudate Amt -Exudate Type -Wound Margin -Granulation Amt -Granulation Quality -Slough/Fibrin -Necrosis Amt -Necrotic Tissue Type -Structure Exposed -Texture (Susana-wound Skin Appearance) -Moisture (Susana-wound Skin Appearance) -Color (Susana-wound Skin Appearance) -Temperature (Susana-wound Skin Appearance) -Tenderness on Palpation (Susana-wound Skin Appearance) -Ulcer Cleansing -Foul Odor after Cleansing -Anesthetic Used #1 LLE lateral -Combined with other wound -Current Size (cm) - Length -Current Size (cm) - Width -Current Size (cm) - Depth -Total Square Cm -Photo Taken -Tunneling -Undermining/Tunneling -Circular Undermining -Exudate Amt -Exudate Type -Wound Margin -Granulation Amt -Granulation Quality -Slough/Fibrin -Necrosis Amt -Necrotic Tissue Type -Structure Exposed -Texture (Susana-wound Skin Appearance) -Moisture (Susana-wound Skin Appearance) -Color (Susana-wound Skin Appearance) -Temperature (Susana-wound Skin Appearance) -Tenderness on Palpation (Susana-wound Skin Appearance) -Ulcer Cleansing -Foul Odor after Cleansing -Anesthetic Used Wound Center Nurse 1 Lower Limb Edema Present Left Calf (cm) 31.5 Left Ankle (cm) 21.6 WC - Nurse 2 - General Ulcer CM Notes Start: 04/09/21 16:00 Freq: Status: Active Protocol: Activity Type Activity Date Activity User E-Sign Co-Sign Detail Recorded Client Recorded Date Recorded By Document 04/09/21 16:39 [id number] 04/09/21 16:46 Document 04/16/21 14:44 [id number] 04/16/21 14:44 Document 04/23/21 18:49 PL [id number] 04/23/21 18:54 PL Document 04/30/21 15:24 [id number] 04/30/21 15:30 04/09/21 04/16/21 04/23/21 16:39 14:44 18:49 Wound Center Nurse 2 3-left medial leg -Time 16:44 15:49 -Correct Patient Yes No Yes -Correct Side, Site, Position Yes No Yes -Correct Procedure Yes No Yes -Procedure Performed Yes No Yes -Type of Procedure Debridement Debridement -Clinical Debridement Subcutaneous Subcutaneous -Tissue Removed Subcutaneous Subcutaneous -Post Debridement (cm) - Length 4.6 4.6 -Post Debridement (cm) - Width 4.1 4.1 -Post Debridement (cm) - Depth 0.2 0.2 -Total Square (Post) (cm) 18.86 18.86 -Area of Debridement (cm) - Length 4.6 4.6 -Area of Debridement (cm) - Width 4.1 4.1 -Total Square (Area) (cm) 18.86 18.86 -Tunneling No No -Undermining/Tunneling No No -Circular Undermining No No -Wound/Ulcer Outcome Not Healed Not Healed Not Healed -Ulcer Cleansing Rinsed/ Rinsed/ Irrigated with Irrigated with Saline Saline -Foul Odor after Cleansing No No -Bioengineered Tissue No No -Bleeding Controlled with Pressure -Offloading No -Treatment Response Procedure Procedure Tolerated Well Tolerated Well -Debridement - Subq, 1st 20sq cm Yes No #1 LLE lateral -Time 16:40 15:49 -Correct Patient Yes No Yes -Correct Side, Site, Position Yes No Yes -Correct Procedure Yes No Yes -Procedure Performed Yes No Yes -Type of Procedure Debridement Debridement -Clinical Debridement Subcutaneous Subcutaneous -Tissue Removed Subcutaneous Subcutaneous -Post Debridement (cm) - Length 9.5 4.6 -Post Debridement (cm) - Width 9.2 4.1 -Post Debridement (cm) - Depth 0.2 0.2 -Total Square (Post) (cm) 87.40 18.86 -Area of Debridement (cm) - Length 9.5 4.6 -Area of Debridement (cm) - Width 9.2 4.1 -Total Square (Area) (cm) 87.40 18.86 -Tunneling No No -Undermining/Tunneling No No -Circular Undermining No No -Wound/Ulcer Outcome Healed- Not Healed Not Healed Surgical Closure -Ulcer Cleansing Rinsed/ Irrigated with Saline -Foul Odor after Cleansing No No -Bioengineered Tissue Yes Yes -Type of Bioengineered Tissue Theraskin Theraskin -Expiration Date 04/25/25 04/25/25 -Product Lot Number [id number] -Percent Used 100 100 -Lot number of Saline Used [id number] -Bleeding Controlled with Pressure Pressure -Offloading No -Treatment Response Procedure Procedure Tolerated Well Tolerated Well -Debridement - Subq, 1st 20sq cm No No -Apply Skin Sub - 1st 25 sq cm - Legs 1 1 -Apply Skin Sub - each addt'l 25 sq cm 3 - Legs -Theraskin (per sq cm) 116 116 Pain Scale: 0-10 Numeric Is Patient Pain Free? Yes Yes Yes 04/30/21 15:24 Wound Center Nurse 2 3-left medial leg -Time -Correct Patient No -Correct Side, Site, Position No -Correct Procedure No -Procedure Performed No -Type of Procedure -Clinical Debridement -Tissue Removed -Post Debridement (cm) - Length -Post Debridement (cm) - Width -Post Debridement (cm) - Depth -Total Square (Post) (cm) -Area of Debridement (cm) - Length -Area of Debridement (cm) - Width -Total Square (Area) (cm) -Tunneling -Undermining/Tunneling -Circular Undermining -Wound/Ulcer Outcome Not Healed -Ulcer Cleansing -Foul Odor after Cleansing -Bioengineered Tissue -Bleeding Controlled with -Offloading -Treatment Response -Debridement - Subq, 1st 20sq cm #1 LLE lateral -Time -Correct Patient No -Correct Side, Site, Position No -Correct Procedure No -Procedure Performed No -Type of Procedure -Clinical Debridement -Tissue Removed -Post Debridement (cm) - Length -Post Debridement (cm) - Width -Post Debridement (cm) - Depth -Total Square (Post) (cm) -Area of Debridement (cm) - Length -Area of Debridement (cm) - Width -Total Square (Area) (cm) -Tunneling -Undermining/Tunneling -Circular Undermining -Wound/Ulcer Outcome Not Healed -Ulcer Cleansing -Foul Odor after Cleansing -Bioengineered Tissue -Type of Bioengineered Tissue -Expiration Date -Product Lot Number -Percent Used -Lot number of Saline Used -Bleeding Controlled with -Offloading -Treatment Response -Debridement - Subq, 1st 20sq cm -Apply Skin Sub - 1st 25 sq cm - Legs -Apply Skin Sub - each addt'l 25 sq cm - Legs -Theraskin (per sq cm) Pain Scale: 0-10 Numeric Is Patient Pain Free? Yes WC - Nurse 3 - General Ulcer D/C NN Start: 04/09/21 16:00 Freq: Status: Active Protocol: Activity Type Activity Date Activity User E-Sign Co-Sign Detail Recorded Client Recorded Date Recorded By Document 04/09/21 16:50 FELISHA [id number] 04/09/21 16:51 Document 04/16/21 14:52 BM [id number] 04/16/21 14:53 BM Document 04/23/21 16:16 BM Desktop 04/23/21 16:16 BM Document 04/30/21 15:38 RB [id number] 04/30/21 15:40 RB 04/09/21 04/16/21 04/23/21 16:50 14:52 16:16 Wound Care Nurse 3 3-left medial leg -Ulcer Cleansing Rinsed/ Irrigated with Saline -Foul Odor after Cleansing No -Other Dressing theraskin left theraskin intact -Primary Dressing Covered/Secured with Dry Gauze & Dry Gauze & Dry Gauze & Roll Gauze, Roll Gauze, Roll Gauze, Secured with Secured with Secured with Tape Tape,Other Tape,Other -Other Covering abd, kerlix, abd, drsg per stockinette rb rn #1 LLE lateral -Ulcer Cleansing Rinsed/ Irrigated with Saline -Foul Odor after Cleansing No -Primary Dressing Applied Other -Other Dressing theraskin left theraskin intact -Primary Dressing Covered/Secured with Dry Gauze & Dry Gauze & Roll Gauze, Roll Gauze, Secured with Secured with Tape,Other Tape,Other -Other Covering kerlix, abd, abd, drsg per terra rb rn Left -Compression Wrap Candelario Wrap Candelario Wrap Candelario Wrap -Other Treatment Response Procedure Procedure Tolerated Well Tolerated Well Pain Scale: 0-10 Numeric Is Patient Pain Free? Yes Yes Yes WC - Visit Discharge Discharge Condition Stable Stable Stable Ambulatory Status Wheelchair Wheelchair Transportation Private Auto Private Auto Private Auto Accompanied by daughter meagan daughter Medication Reconcilliation completed & Yes provided to patient/care provider Clinical Summary of Care Provided Yes Facility Type Home Health 04/30/21 15:38 Wound Care Nurse 3 3-left medial leg -Ulcer Cleansing -Foul Odor after Cleansing -Other Dressing superabsorbant dressing bd kerlix, candelario -Primary Dressing Covered/Secured with Dry Gauze,Dry Gauze & Roll Gauze,Secured with Tape -Other Covering #1 LLE lateral -Ulcer Cleansing -Foul Odor after Cleansing -Primary Dressing Applied -Other Dressing -Primary Dressing Covered/Secured with Dry Gauze,Dry Gauze & Roll Gauze,Secured with Tape -Other Covering Left -Compression Wrap -Other candelario Treatment Response Procedure Tolerated Well Pain Scale: 0-10 Numeric Is Patient Pain Free? 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 The TheraSkin is incorporating and this was left intact. Debridement was not performed today. She was reassured there are no local signs of infection. Additional debridement and TheraSkin application will be considered at follow-up visit next week. A secondary dressing was reapplied and she was advised to keep this clean, dry, and intact. A super absorption dressing was also applied. Home health will change this every other day with multilayer compression to keep her edema reduced (greatly improved over the past 2 to 3 weeks), and to alleviate excessive moisture on this sensitive area. Her pain is significantly reduced since her arterial intervention and recently her leg surgery.? To follow-up with Dr. Morel as advised.? It is noted she had angioplasty to the aorta and iliac level to reperfusion the left lower limb on 02-12-2021.? Additional distal stenting also be considered.? ? To follow-up as advised. She was reassured no local signs of infection or purulence are noted today.? She is under the management of infectious disease physician.? Management is appreciated.? She completed a course of iv cefepime cover deeper infection for duration of 6 weeks with a stop date of 03/24/2021. 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 She will follow-up with Dr. De La Cruz as scheduled. We previously reviewed her ongoing main options which include a below the knee amputation, palliative program, versus wound healing now that recent improvement is noted with advanced wound healing product application.? She is doing well since surgery and will proceed forward with local wound care in the clinical setting. The application of advanced wound healing products are medically necessary for limb salvage. She has failed other conservative care comprehensive wound healing treatments and this is necessary to avoid additional delays in healing. I advised her to maintain better control her edema with intermittent elevation and muscular contraction of the involved post polio syndrome leg.? I recommend Tubigrip application and she relates she only able to tolerate this part of the time.? It is okay for her to wear a properly fitted and protected shoe and to weight-bear as tolerated to the left lower extremity. She is advised wearing Candelario wrap at least.? To proceed with a proper control diet and nutrition supplementation to optimize healing.? I answered all of her questions and explained the etiology of ulcer causes and the comprehensive wound healing plan. ? Note: [employer] speech recognition industrial relations manager software was used to create portions of this document. Sound-alike and misspelled words, as well as other industrial relations manager errors may be contained in the documentation. The medical decision making level is low. There is noted low risk of morbidity after considering this treatment plan and diagnostic data. The problems addressed require a low medical decision making level which includes two or more minor problems, a stable chronic illness, or an acute uncomplicated illness or injury.
[2021-05-07 13:46] VITALS: BP 154/64; PULSE 71; RESP 16; TEMP 37.3; BMI 59.4
--- NOTE | 2021-05-07 14:33 | PN.PCM_ITS ---
History of Present Illness Date of Service: 05/07/21 Chief Complaint: Left leg ulcer History of Wound: This 70-year-old female with multiple comorbidities was seen for follow up of left ulcer leg debridement with application of advanced wound healing product, amnio fill. She has had TheraSkin applied 2 weeks ago, and is here for reevaluation. She is with her daughter today. She denies fever, chill, nausea, vomiting. She denies redness or odor. She relates she had excessive drainage after her last visit, and her home nurse has identified a new ulcer to the front of her leg. She did not have any additional episodes of bleeding since that time. She is on Plavix and is status post vascular intervention. Progress of Wound: improving New skin discontinuity noted Objective Data Objective Data Vital Signs: Vital Signs Temp Pulse Resp BP 99.1 F 71 16 154/64 H 05/07/21 13:46 05/07/21 13:46 05/07/21 13:46 05/07/21 13:46 Oxygen Flow Rate (L/min) 2 Oxygen Delivery Method Room Air Weight: 63.503 kg Body Mass Index (BMI) 59.4 Physical Exam Const alert and oriented x3 General Appearance: cooperative HEENT normocephalic Extremity Extremity Narrative: No calf tenderness Diminished pulses Muscle wasting noted No bogginess or fluctuance Left lower limb edema reduced and compartments remain soft to palpate General Extremity: edema and no tenderness to palpation of joints or extremities; Negative for cyanosis Skin Skin Narrative: no purulence, no streaking, no odor, no infection. There is no necrosis or excessive fibrous tissue buildup. The adjacent skin is hairless and atrophic. The remaining TheraSkin graft was removed with some peripheral epithelialization and improvement ulcer bed noted. No active hematogenous drainage is noted. There is a new skin discontinuity between the 2 initial ulcer sites that is subhemorrhagic with minimal granulation tissue. Her skin is very fragile. General Skin Exam: Negative for erythema Neuro Neuro Narrative: Hypersensitivity via light touch, controlled today Psych cooperative and affect normal Debridement Note Debridement Note Post-Debridement Measurements and Additional Note: Post-Debridement Measurements/Treatment TOMÁS - Nurse 1 - General Ulcer Assessment Start: 04/09/21 16:00 Freq: Status: Active Protocol: AYSHA Activity Type Activity Date Activity User E-Sign Co-Sign Detail Recorded Client Recorded Date Recorded By Document 04/09/21 16:00 ML Desktop 04/09/21 16:07 ML Document 04/16/21 14:15 BMF [id number] 04/16/21 14:21 BMF Document 04/23/21 15:38 RB [id number] 04/23/21 15:41 RB Document 04/30/21 15:01 RB [id number] 04/30/21 15:06 RB Document 05/07/21 13:46 BMF [id number] 05/07/21 14:02 BMF 04/09/21 04/16/21 04/23/21 16:00 14:15 15:38 WC - Today's Visit Information Type of service Follow-up Visit Follow-up Visit Follow-up Visit (Physician/IRRIGATION FOREMAN (Physician/IRRIGATION FOREMAN (Physician/IRRIGATION FOREMAN ) ) ) Arrival Mode Wheelchair Wheelchair Wheelchair Transfer Assistance None None None Accompanied by Patient Identification Verified (Name & Yes Yes Yes ) Patient Requires Transmission-Based No No No Precautions Safety Precautions NA Height and Weight Body Mass Index (BMI) 59.4 59.4 59.4 BMI Classification Obese Obese Obese Vital Signs Temperature (97.8 F-99.1 F) 98.9 F 98.2 F 97.5 F L Temperature Source Temporal Temporal Temporal Pulse Rate (60-100) 74 98 85 Pulse Location Monitor Monitor Monitor Respiratory Rate (12-18) 16 18 18 Respiratory rate source Observation Observation Observation Oxygen Delivery Method Room Air Blood Pressure (90/60-120/80) 192/76 H 146/74 H 151/65 H Blood Pressure Mean (mm Hg) 114 98 93 Source Monitor Monitor Monitor Position Sitting Sitting Semi-Fowlers Blood Pressure Location Right Arm Left Arm History Since Last Visit- (Skip if this is Patient's initial visit) Have you changed medications since your No No last visit? Any new allergies or adverse reactions No No Had a fall/change in ADL's that may No No increase risk of falls Signs or symptoms of abuse and/or No No neglect since last visit Have you been in the hospital since your No No last visit? Has dressing in place as prescribed Yes Yes Has compression in place as prescribed N/A Yes Has offloadiing in place as prescribed N/A No Experienced any changes in pain level or No No management Left Footwear No Footwear Regular Shoe Right Footwear Regular Shoe Regular Shoe Pain Scale: 0-10 Numeric Is Patient Pain Free? No Yes 04/30/21 05/07/21 15:01 13:46 WC - Today's Visit Information Type of service Follow-up Visit Follow-up Visit (Physician/IRRIGATION FOREMAN (Physician/IRRIGATION FOREMAN ) ) Arrival Mode Wheelchair Wheelchair Transfer Assistance None None Accompanied by DAUGHTER Patient Identification Verified (Name & Yes Yes ) Patient Requires Transmission-Based No No Precautions Safety Precautions Height and Weight Body Mass Index (BMI) 59.4 59.4 BMI Classification Obese Obese Vital Signs Temperature (97.8 F-99.1 F) 97.5 F L 99.1 F Temperature Source Temporal Temporal Pulse Rate (60-100) 81 71 Pulse Location Monitor Monitor Respiratory Rate (12-18) 18 16 Respiratory rate source Observation Observation Oxygen Delivery Method Room Air Blood Pressure (90/60-120/80) 168/61 H 154/64 H Blood Pressure Mean (mm Hg) 96 94 Source Monitor Monitor Position Semi-Fowlers Sitting Blood Pressure Location Left Arm Right Arm History Since Last Visit- (Skip if this is Patient's initial visit) Have you changed medications since your No No last visit? Any new allergies or adverse reactions No No Had a fall/change in ADL's that may No No increase risk of falls Signs or symptoms of abuse and/or No No neglect since last visit Have you been in the hospital since your No No last visit? Has dressing in place as prescribed Yes Yes Has compression in place as prescribed Yes No Has offloadiing in place as prescribed No N/A Experienced any changes in pain level or No No management Left Footwear Right Footwear Pain Scale: 0-10 Numeric Is Patient Pain Free? Yes No - Nurse 1 - General Ulcer Measurement Start: 04/09/21 16:00 Freq: Status: Active Protocol: Activity Type Activity Date Activity User E-Sign Co-Sign Detail Recorded Client Recorded Date Recorded By Document 04/09/21 16:00 ML Desktop 04/09/21 16:07 ML Document 04/16/21 14:15 BMF [id number] 04/16/21 14:21 BMF Document 04/23/21 15:38 RB [id number] 04/23/21 15:41 RB Document 04/30/21 15:01 RB [id number] 04/30/21 15:06 RB Document 05/07/21 13:46 BM [id number] 05/07/21 14:02 [facility] 04/09/21 04/16/21 04/23/21 16:00 14:15 15:38 3-left medial leg -Combined with other wound No No -Current Size (cm) - Length 0.1 -Current Size (cm) - Width 0.1 -Current Size (cm) - Depth 0.1 -Total Square Cm 0.01 -Tunneling No -Undermining/Tunneling No -Circular Undermining No -Exudate Amt Medium -Exudate Type Serosanguineous -Wound Margin Flat & Intact -Granulation Amt Medium (34-66%) -Granulation Quality [place] -Slough/Fibrin Yes -Necrosis Amt Small (1-33%) -Necrotic Tissue Type Adherent Slough -Structure Exposed N/A -Texture (Susana-wound Skin Appearance) Assessed, Friable -Moisture (Susana-wound Skin Appearance) Assessed -Color (Susana-wound Skin Appearance) Assessed -Temperature (Susana-wound Skin No Abnormality Appearance) (Pt Warm) -Tenderness on Palpation (Susana-wound No Skin Appearance) -Ulcer Cleansing Wound Cleanser -Foul Odor after Cleansing No -Anesthetic Used 4% Lidocaine Solution,5% Lidocaine Gel #1 LLE lateral -Combined with other wound No -Current Size (cm) - Length 0.1 -Current Size (cm) - Width 0.1 -Current Size (cm) - Depth 0.1 -Total Square Cm 0.01 -Photo Taken No -Tunneling No -Undermining/Tunneling No -Circular Undermining No -Exudate Amt Medium -Exudate Type Serosanguineous -Wound Margin Flat & Intact -Granulation Amt Medium (34-66%) -Granulation Quality [place] -Slough/Fibrin Yes -Necrosis Amt Small (1-33%) -Necrotic Tissue Type Adherent Slough -Structure Exposed N/A -Texture (Susana-wound Skin Appearance) Assessed -Moisture (Susana-wound Skin Appearance) Assessed -Color (Susana-wound Skin Appearance) Assessed -Temperature (Susana-wound Skin No Abnormality Appearance) (Pt Warm) -Tenderness on Palpation (Susana-wound No Skin Appearance) -Ulcer Cleansing Wound Cleanser -Foul Odor after Cleansing No -Anesthetic Used 4% Lidocaine Solution,5% Lidocaine Gel Wound Center Nurse 1 Lower Limb Edema Present Yes Left Calf (cm) 24 30.5 Left Ankle (cm) 12 20.5 04/30/21 05/07/21 15:01 13:46 3-left medial leg -Combined with other wound No No -Current Size (cm) - Length 0.1 -Current Size (cm) - Width 0.1 -Current Size (cm) - Depth 0.1 -Total Square Cm 0.01 -Tunneling -Undermining/Tunneling -Circular Undermining -Exudate Amt Large -Exudate Type Serosanguineous -Wound Margin -Granulation Amt -Granulation Quality -Slough/Fibrin -Necrosis Amt -Necrotic Tissue Type -Structure Exposed -Texture (Susana-wound Skin Appearance) Assessed -Moisture (Susana-wound Skin Appearance) Assessed -Color (Susana-wound Skin Appearance) Assessed -Temperature (Susana-wound Skin No Abnormality Appearance) (Pt Warm) -Tenderness on Palpation (Susana-wound Yes Skin Appearance) -Ulcer Cleansing SOAPY WATER -Foul Odor after Cleansing No -Anesthetic Used 5% Lidocaine Gel #1 LLE lateral -Combined with other wound No -Current Size (cm) - Length 0.1 -Current Size (cm) - Width 0.1 -Current Size (cm) - Depth 0.1 -Total Square Cm 0.01 -Photo Taken -Tunneling -Undermining/Tunneling -Circular Undermining -Exudate Amt Large -Exudate Type Serosanguineous -Wound Margin -Granulation Amt -Granulation Quality -Slough/Fibrin -Necrosis Amt -Necrotic Tissue Type -Structure Exposed -Texture (Susana-wound Skin Appearance) Assessed -Moisture (Susana-wound Skin Appearance) Assessed -Color (Susana-wound Skin Appearance) Assessed -Temperature (Susana-wound Skin No Abnormality Appearance) (Pt Warm) -Tenderness on Palpation (Susana-wound Yes Skin Appearance) -Ulcer Cleansing SOAPY WATER -Foul Odor after Cleansing No -Anesthetic Used 5% Lidocaine Gel Wound Center Nurse 1 Lower Limb Edema Present Left Calf (cm) 31.5 Left Ankle (cm) 21.6 WC - Nurse 2 - General Ulcer CM Notes Start: 04/09/21 16:00 Freq: Status: Active Protocol: Activity Type Activity Date Activity User E-Sign Co-Sign Detail Recorded Client Recorded Date Recorded By Document 04/09/21 16:39 [id number] 04/09/21 16:46 Document 04/16/21 14:44 JF [id number] 04/16/21 14:44 JF Document 04/23/21 18:[address] [id number] 04/23/21 18:54 PL Document 04/30/21 15:24 JF [id number] 04/30/21 15:30 JF Document 05/07/21 14:14 JF [id number] 05/07/21 14:16 04/09/21 04/16/21 04/23/21 16:39 14:44 18:49 Wound Center Nurse 2 3-left medial leg -Time 16:44 15:49 -Correct Patient Yes No Yes -Correct Side, Site, Position Yes No Yes -Correct Procedure Yes No Yes -Procedure Performed Yes No Yes -Type of Procedure Debridement Debridement -Clinical Debridement Subcutaneous Subcutaneous -Tissue Removed Subcutaneous Subcutaneous -Post Debridement (cm) - Length 4.6 4.6 -Post Debridement (cm) - Width 4.1 4.1 -Post Debridement (cm) - Depth 0.2 0.2 -Total Square (Post) (cm) 18.86 18.86 -Area of Debridement (cm) - Length 4.6 4.6 -Area of Debridement (cm) - Width 4.1 4.1 -Total Square (Area) (cm) 18.86 18.86 -Tunneling No No -Undermining/Tunneling No No -Circular Undermining No No -Wound/Ulcer Outcome Not Healed Not Healed Not Healed -Ulcer Cleansing Rinsed/ Rinsed/ Irrigated with Irrigated with Saline Saline -Foul Odor after Cleansing No No -Bioengineered Tissue No No -Bleeding Controlled with Pressure -Offloading No -Treatment Response Procedure Procedure Tolerated Well Tolerated Well -Debridement - Subq, 1st 20sq cm Yes No #1 LLE lateral -Time 16:40 15:49 -Correct Patient Yes No Yes -Correct Side, Site, Position Yes No Yes -Correct Procedure Yes No Yes -Procedure Performed Yes No Yes -Type of Procedure Debridement Debridement -Clinical Debridement Subcutaneous Subcutaneous -Tissue Removed Subcutaneous Subcutaneous -Post Debridement (cm) - Length 9.5 4.6 -Post Debridement (cm) - Width 9.2 4.1 -Post Debridement (cm) - Depth 0.2 0.2 -Total Square (Post) (cm) 87.40 18.86 -Area of Debridement (cm) - Length 9.5 4.6 -Area of Debridement (cm) - Width 9.2 4.1 -Total Square (Area) (cm) 87.40 18.86 -Tunneling No No -Undermining/Tunneling No No -Circular Undermining No No -Wound/Ulcer Outcome Healed- Not Healed Not Healed Surgical Closure -Ulcer Cleansing Rinsed/ Irrigated with Saline -Foul Odor after Cleansing No No -Bioengineered Tissue Yes Yes -Type of Bioengineered Tissue Theraskin Theraskin -Expiration Date 04/25/25 04/25/25 -Product Lot Number [id number] -Percent Used 100 100 -Lot number of Saline Used [id number] -Bleeding Controlled with Pressure Pressure -Offloading No -Treatment Response Procedure Procedure Tolerated Well Tolerated Well -Debridement - Subq, 1st 20sq cm No No -Apply Skin Sub - 1st 25 sq cm - Legs 1 1 -Apply Skin Sub - each addt'l 25 sq cm 3 - Legs -Theraskin (per sq cm) 116 116 Pain Scale: 0-10 Numeric Is Patient Pain Free? Yes Yes Yes 04/30/21 05/07/21 15:24 14:14 Wound Center Nurse 2 3-left medial leg -Time -Correct Patient No No -Correct Side, Site, Position No No -Correct Procedure No No -Procedure Performed No No -Type of Procedure -Clinical Debridement -Tissue Removed -Post Debridement (cm) - Length -Post Debridement (cm) - Width -Post Debridement (cm) - Depth -Total Square (Post) (cm) -Area of Debridement (cm) - Length -Area of Debridement (cm) - Width -Total Square (Area) (cm) -Tunneling -Undermining/Tunneling -Circular Undermining -Wound/Ulcer Outcome Not Healed Not Healed -Ulcer Cleansing -Foul Odor after Cleansing -Bioengineered Tissue -Bleeding Controlled with -Offloading -Treatment Response -Debridement - Subq, 1st 20sq cm #1 LLE lateral -Time -Correct Patient No No -Correct Side, Site, Position No No -Correct Procedure No No -Procedure Performed No No -Type of Procedure -Clinical Debridement -Tissue Removed -Post Debridement (cm) - Length -Post Debridement (cm) - Width -Post Debridement (cm) - Depth -Total Square (Post) (cm) -Area of Debridement (cm) - Length -Area of Debridement (cm) - Width -Total Square (Area) (cm) -Tunneling -Undermining/Tunneling -Circular Undermining -Wound/Ulcer Outcome Not Healed Not Healed -Ulcer Cleansing -Foul Odor after Cleansing -Bioengineered Tissue -Type of Bioengineered Tissue -Expiration Date -Product Lot Number -Percent Used -Lot number of Saline Used -Bleeding Controlled with -Offloading -Treatment Response -Debridement - Subq, 1st 20sq cm -Apply Skin Sub - 1st 25 sq cm - Legs -Apply Skin Sub - each addt'l 25 sq cm - Legs -Theraskin (per sq cm) Pain Scale: 0-10 Numeric Is Patient Pain Free? Yes Yes WC - Nurse 3 - General Ulcer D/C NN Start: 04/09/21 16:00 Freq: Status: Active Protocol: Activity Type Activity Date Activity User E-Sign Co-Sign Detail Recorded Client Recorded Date Recorded By Document 04/09/21 16:50 [id number] 04/09/21 16:51 Document 04/16/21 14:52 [facility] [id number] 04/16/21 14:53 [facility] Document 04/23/21 16:16 [facility] Desktop 04/23/21 16:16 [facility] Document 04/30/21 15:38 RB [id number] 04/30/21 15:40 RB 04/09/21 04/16/21 04/23/21 16:50 14:52 16:16 Wound Care Nurse 3 3-left medial leg -Ulcer Cleansing Rinsed/ Irrigated with Saline -Foul Odor after Cleansing No -Other Dressing theraskin left theraskin intact -Primary Dressing Covered/Secured with Dry Gauze & Dry Gauze & Dry Gauze & Roll Gauze, Roll Gauze, Roll Gauze, Secured with Secured with Secured with Tape Tape,Other Tape,Other -Other Covering abdoma, jenni, beverlyg per terra schroeder rn #1 LLE lateral -Ulcer Cleansing Rinsed/ Irrigated with Saline -Foul Odor after Cleansing No -Primary Dressing Applied Other -Other Dressing theraskin left theraskin intact -Primary Dressing Covered/Secured with Dry Gauze & Dry Gauze & Roll Gauze, Roll Gauze, Secured with Secured with Tape,Other Tape,Other -Other Covering kerlix, abd, abd, drsg per terra schroeder rn Left -Compression Wrap Candelario Wrap Candelario Wrap Candelario Wrap -Other Treatment Response Procedure Procedure Tolerated Well Tolerated Well Pain Scale: 0-10 Numeric Is Patient Pain Free? Yes Yes Yes WC - Visit Discharge Discharge Condition Stable Stable Stable Ambulatory Status Wheelchair Wheelchair Transportation Private Auto Private Auto Private Auto Accompanied by daughter meagan daughter Medication Reconcilliation completed & Yes provided to patient/care provider Clinical Summary of Care Provided Yes Facility Type [facility] 04/30/21 15:38 Wound Care Nurse 3 3-left medial leg -Ulcer Cleansing -Foul Odor after Cleansing -Other Dressing superabsorbant dressing bd kerlix, candelario -Primary Dressing Covered/Secured with Dry Gauze,Dry Gauze & Roll Gauze,Secured with Tape -Other Covering #1 LLE lateral -Ulcer Cleansing -Foul Odor after Cleansing -Primary Dressing Applied -Other Dressing -Primary Dressing Covered/Secured with Dry Gauze,Dry Gauze & Roll Gauze,Secured with Tape -Other Covering Left -Compression Wrap -Other candelario Treatment Response Procedure Tolerated Well Pain Scale: 0-10 Numeric Is Patient Pain Free? 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 The TheraSkin is incorporating and this was left intact. Debridement was not performed today. She was reassured there are no local signs of infection. Additional debridement and TheraSkin application will be considered at follow-up visit next week. To wash leg every 2 days with antibacterial soap and water. To gently dry with a clean towel. To apply hydrogel and Adaptic. Her pain is significantly reduced since her arterial intervention and recently her leg surgery.? To follow-up with Dr. Morel as advised.? It is noted she had angioplasty to the aorta and iliac level to reperfusion the left lower limb on 02-12-2021.? Additional distal stenting also be considered.? ? To follow-up as advised. She was reassured no local signs of infection or purulence are noted today.? She is under the management of infectious disease physician.? Management is appreciated.? She completed a course of iv cefepime cover deeper infection for duration of 6 weeks with a stop date of 03/24/2021. 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 She will follow-up with Dr. De La Cruz as scheduled. We previously reviewed her ongoing main options which include a below the knee amputation, palliative program, versus wound healing now that recent improvement is noted with advanced wound healing product application.? She is doing well since surgery and will proceed forward with local wound care in the clinical setting. The application of advanced wound healing products are medically necessary for limb salvage. She has failed other conservative care comprehensive wound healing treatments and this is necessary to avoid additional delays in healing. I advised her to maintain better control her edema with intermittent elevation and muscular contraction of the involved post polio syndrome leg.? I recommend Tubigrip application and she relates she only able to tolerate this part of the time.? It is okay for her to wear a properly fitted and protected shoe and to weight-bear as tolerated to the left lower extremity. She is advised wearing Candelario wrap at least.? To proceed with a proper control diet and nutrition supplementation to optimize healing.? I answered all of her questions and explained the etiology of ulcer causes and the comprehensive wound healing plan. ? Note: [employer] speech recognition switchboard and control room operator software was used to create portions of this document. Sound-alike and misspelled words, as well as other switchboard and control room operator errors may be contained in the documentation. The medical decision making level is low. There is noted low risk of morbidity after considering this treatment plan and diagnostic data. The problems addressed require a low medical decision making level which includes two or more minor problems, a stable chronic illness, or an acute uncomplicated illness or injury.
== END 2021-05-07 23:59 ==
LOC: WC 13:30
PROVIDERS: PCP Family Medicine; Referring Provider Podiatrist; Visit Provider Podiatrist
DX: I87.2 Venous insufficiency (chronic) (peripheral) (principal); L97.822 Non-pressure chronic ulcer of other part of left lower leg with fat layer exposed; A04.71 Enterocolitis due to Clostridium difficile, recurrent; I73.89 Other specified peripheral vascular diseases; R60.0 Localized edema; G89.29 Other chronic pain; G14 Postpolio syndrome; E66.9 Obesity, unspecified; Z68.43 Body mass index [BMI] 50.0-59.9, adult; Z79.02 Long term (current) use of antithrombotics/antiplatelets; Z79.890 Hormone replacement therapy; Z79.899 Other long term (current) drug therapy
CPT/HCPCS: 11042; 15271; 15272; 99213; Q4121; G0463

== ENCOUNTER 2021-05-28 14:15 | Outpatient (RCR) | payer MEDICARE, OTHER, SELFPAY ==
[2021-05-08 00:11] VITALS: BP 154/64; PULSE 71; RESP 16; TEMP 37.3
[2021-05-14 13:17] VITALS: BP 154/60; PULSE 94; RESP 18; TEMP 36.4; BMI 59.4
--- NOTE | 2021-05-14 14:26 | PCM.WC.PN ---
History of Present Illness Date of Service: 05/14/21 Chief Complaint: Left leg ulcer History of Wound: This 70-year-old female with multiple comorbidities was seen for follow up of left ulcer on the leg. She has had prior application of advanced wound healing products in clinic and also in the operating room including TheraSkin and amnio fill. She denies fever, chill, nausea, vomiting. She denies redness or odor. She also recently had vascular intervention. She has some moderate increase in pain this past week and has continued excessive drainage. She relates she rest for 12 hours a day and is intermittently active throughout the day. Progress of Wound: Stable Objective Data Objective Data Vital Signs: Vital Signs Temp Pulse Resp BP 97.5 F L 94 18 154/60 H 05/14/21 13:17 05/14/21 13:17 05/14/21 13:17 05/14/21 13:17 Oxygen Flow Rate (L/min) 2 Weight: 63.503 kg Body Mass Index (BMI) 59.4 Physical Exam Const alert and oriented x3 General Appearance: cooperative HEENT normocephalic Extremity Extremity Narrative: No calf tenderness Diminished pulses Muscle wasting noted General Extremity: edema and no tenderness to palpation of joints or extremities; Negative for cyanosis Skin Skin Narrative: no purulence, no streaking, no odor, no infection. Adjacent skin is hairless and atrophic. Initial ulcer sites that had TheraSkin applications have reduced depth and are healthier in appearance with granular base. There is continued skin discontinuity between the 2 initial sites that is blending as one large cluster wound that is nearly circumferential. This is also a granular base with some peripheral peeling. General Skin Exam: Negative for erythema Neuro Neuro Narrative: lack of normal epicritic sensation via light touch is consistent with neuropathy status Psych cooperative and affect normal Debridement Note Debridement Note Post-Debridement Measurements and Additional Note: Post-Debridement Measurements/Treatment WC - Nurse 1 - General Ulcer Assessment Start: 05/14/21 13:17 Freq: Status: Active Protocol: AYSHA Activity Type Activity Date Activity User E-Sign Co-Sign Detail Recorded Client Recorded Date Recorded By Document 05/14/21 13:17 ELHAM [id number] 05/14/21 13:36 RB 05/14/21 13:17 TOMÁS - Today's Visit Information Type of service 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 ) Arrival Mode Wheelchair Transfer Assistance None Patient Identification Verified (Name & Yes ) Patient Requires Transmission-Based No Precautions Height and Weight Body Mass Index (BMI) 59.4 BMI Classification Obese Vital Signs Temperature (97.8 F-99.1 F) 97.5 F L Temperature Source Temporal Pulse Rate (60-100) 94 Pulse Location Monitor Respiratory Rate (12-18) 18 Respiratory rate source Observation Blood Pressure (90/60-120/80) 154/60 H Blood Pressure Mean (mm Hg) 91 Source Monitor Position Semi-Fowlers Blood Pressure Location Left Arm History Since Last Visit- (Skip if this is Patient's initial visit) Have you changed medications since your No last visit? Any new allergies or adverse reactions No Had a fall/change in ADL's that may No increase risk of falls Signs or symptoms of abuse and/or No neglect since last visit Have you been in the hospital since your No last visit? Has dressing in place as prescribed Yes Has compression in place as prescribed Yes Has offloadiing in place as prescribed No Experienced any changes in pain level or No management WC - Nurse 1 - General Ulcer Measurement Start: 05/14/21 13:17 Freq: Status: Active Protocol: Activity Type Activity Date Activity User E-Sign Co-Sign Detail Recorded Client Recorded Date Recorded By Document 05/14/21 13:17 [email or web address] [id number] 05/14/21 13:36 RB 05/14/21 13:17 Wound Center Nurse 1 3-left medial leg -Combined with other wound No -Current Size (cm) - Length 14 -Current Size (cm) - Width 7 -Current Size (cm) - Depth 0.1 -Total Square Cm 98 -Tunneling No -Undermining/Tunneling No -Circular Undermining No -Exudate Amt Medium -Exudate Type Serosanguineous -Wound Margin Distinct, Outline Attached -Granulation Amt Large (67-100%) -Granulation Quality Otis,Red -Slough/Fibrin Yes -Necrosis Amt Small (1-33%) -Necrotic Tissue Type Adherent Slough -Structure Exposed N/A -Texture (Susana-wound Skin Appearance) Assessed -Moisture (Susana-wound Skin Appearance) Assessed -Color (Susana-wound Skin Appearance) Assessed -Temperature (Susana-wound Skin No Abnormality Appearance) (Pt Warm) -Tenderness on Palpation (Susana-wound No Skin Appearance) -Ulcer Cleansing Wound Cleanser -Foul Odor after Cleansing No -Anesthetic Used 4% Lidocaine Solution,5% Lidocaine Gel #1 LLE lateral -Combined with other wound No -Current Size (cm) - Length 7.5 -Current Size (cm) - Width 4 -Current Size (cm) - Depth 0.1 -Total Square Cm 30.0 -Tunneling No -Undermining/Tunneling No -Circular Undermining No -Exudate Amt Large -Exudate Type Serosanguineous -Wound Margin Distinct, Outline Attached -Granulation Amt Medium (34-66%) -Granulation Quality Pale -Slough/Fibrin Yes -Necrosis Amt Large (67-100%) -Necrotic Tissue Type Adherent Slough -Structure Exposed N/A -Texture (Susana-wound Skin Appearance) Assessed, Excoriation -Moisture (Susana-wound Skin Appearance) Assessed -Color (Susana-wound Skin Appearance) Assessed -Temperature (Susana-wound Skin No Abnormality Appearance) (Pt Warm) -Tenderness on Palpation (Susana-wound No Skin Appearance) -Ulcer Cleansing Wound Cleanser -Foul Odor after Cleansing No -Anesthetic Used 4% Lidocaine Solution,5% Lidocaine Gel Lower Limb Edema Present Yes Left Calf (cm) 32.5 Left Ankle (cm) 22 WC - Nurse 2 - General Ulcer CM Notes Start: 05/14/21 13:17 Freq: Status: Active Protocol: Activity Type Activity Date Activity User E-Sign Co-Sign Detail Recorded Client Recorded Date Recorded By Document 05/14/21 13:43 FELISHA [id number] 05/14/21 13:54 FELISAH 05/14/21 13:43 Wound Center Nurse 2 3-left medial leg -Correct Patient No -Correct Side, Site, Position No -Correct Procedure No -Procedure Performed No -Wound/Ulcer Outcome Converted #1 LLE lateral -Time 13:49 -Correct Patient Yes -Correct Side, Site, Position Yes -Correct Procedure Yes -Procedure Performed Yes -Type of Procedure Debridement -Clinical Debridement Epidermis / Dermis -Tissue Removed Epidermis, Dermis -Post Debridement (cm) - Length 11.5 -Post Debridement (cm) - Width 20 -Post Debridement (cm) - Depth 0.2 -Total Square (Post) (cm) 230.0 -Area of Debridement (cm) - Length 11.5 -Area of Debridement (cm) - Width 20 -Total Square (Area) (cm) 230.0 -Tunneling No -Undermining/Tunneling No -Circular Undermining No -Wound/Ulcer Outcome Not Healed -Ulcer Cleansing Rinsed/ Irrigated with Saline -Foul Odor after Cleansing No -Bioengineered Tissue No -Bleeding Controlled with Pressure -Offloading No -Treatment Response Procedure Tolerated Well -Debridement - Open, 1st 20sq cm Yes -Debridement, Open, ea addt'l 20sq cm 11 or part thereof Pain Scale: 0-10 Numeric Is Patient Pain Free? Yes - Nurse 3 - General Ulcer D/C NN Start: 05/14/21 13:17 Freq: Status: Active Protocol: Activity Type Activity Date Activity User E-Sign Co-Sign Detail Recorded Client Recorded Date Recorded By Document 05/14/21 13:54 FELISHA [id number] 05/14/21 13:55 FELISHA 05/14/21 13:54 Wound Care Nurse 3 #1 LLE lateral -Ulcer Cleansing Rinsed/ Irrigated with Saline -Foul Odor after Cleansing No -Primary Dressing Applied C Hydrogel ($), NonAdherent Contact Layer -Primary Dressing Covered/Secured with Dry Gauze & Roll Gauze Left -Compression Wrap Candelario Wrap Pain Scale: 0-10 Numeric Is Patient Pain Free? Yes WC - Visit Discharge Discharge Condition Stable Ambulatory Status Ambulatory Transportation Private Auto Medication Reconcilliation completed & Yes provided to patient/care provider Clinical Summary of Care Provided Yes Wound debrided: leg left cluster Wound Grade/Stage: Type of Debridement: Selective debridement Anesthesia Used: 4% Lidocaine Solution Depth: in the subcutaneous layer Percentage of wound debrided: 100 Instrument Used: #15 blade Tissue Removed: fibrous, devitalized subcutaneous, biofilm, slough Severity: Fat Layer Exposed Amount of bleeding with debridement: Mild Bleeding Controlled with: Pressure Patient tolerated procedure: Patient tolerated procedure well Assessment/Plan Assessment/Plan (1) Ulcer of left lower extremity with fat layer exposed: CODE(S): L97.922 - Non-pressure chronic ulcer of unspecified part of left lower leg with fat layer exposed (2) Localized edema: CODE(S): R60.0 - Localized edema (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 Selective debridement was performed as noted. She has had and reporting excessive drainage and I do not recommend application of an additional TheraSkin today. This will be considered at follow-up visits. To wash leg every 2 days with antibacterial soap and water. To gently dry with a clean towel. To apply hydrogel and Adaptic. To continue with max absorption secondary dressing. Her pain is significantly reduced since her arterial intervention and recently her leg surgery. To follow-up with Dr. Morel as advised. It is noted she had angioplasty to the aorta and iliac level to reperfusion the left lower limb on 02-12-2021. Additional distal stenting also be considered. To follow-up as advised. She was reassured no local signs of infection or purulence are noted today. She is under the management of infectious disease physician. Management is appreciated. She completed a course of iv cefepime cover deeper infection for duration of 6 weeks with a stop date of 03/24/2021. 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 She will follow-up with Dr. De La Cruz as scheduled. We previously reviewed her ongoing main options which include a below the knee amputation, palliative program, versus wound healing now that recent improvement is noted with advanced wound healing product application. She is doing well since surgery and will proceed forward with local wound care in the clinical setting. The application of advanced wound healing products are medically necessary for limb salvage. She has failed other conservative care comprehensive wound healing treatments and this is necessary to avoid additional delays in healing. Will be considered at follow-up visit. I advised her to maintain better control her edema with intermittent elevation and muscular contraction of the involved post polio syndrome leg. I recommend Tubigrip application and she relates she only able to tolerate this part of the time. It is okay for her to wear a properly fitted and protected shoe and to weight-bear as tolerated to the left lower extremity. She is advised wearing Candelario wrap at least. To proceed with a proper control diet and nutrition supplementation to optimize healing. I answered all of her questions and explained the etiology of ulcer causes and the comprehensive wound healing plan. Note: [employer] speech recognition home economics extension worker software was used to create portions of this document. Sound-alike and misspelled words, as well as other home economics extension worker errors may be contained in the documentation.
[2021-05-21 14:13] VITALS: BP 149/52; PULSE 87; RESP 20; TEMP 37.3; BMI 59.4
--- NOTE | 2021-05-21 22:33 | PN.PCM_ITS ---
History of Present Illness Date of Service: 05/21/21 Chief Complaint: Left leg ulcer History of Wound: This 70-year-old female with multiple comorbidities was seen for follow up of left ulcer on the leg. She has had prior application of advanced wound healing products in clinic and also in the operating room including TheraSkin and amnio fill. She denies fever, chill, nausea, vomiting. She denies redness or odor. She also recently had vascular intervention. She has some moderate increase in pain this past week and has continued excessive drainage. She relates an odor is noticed within the past day. She is with her daughter. Progress of Wound: Stable Objective Data Objective Data Vital Signs: Vital Signs Temp Pulse Resp BP 99.1 F 87 20 H 149/52 H 05/21/21 14:13 05/21/21 14:13 05/21/21 14:13 05/21/21 14:13 Oxygen Flow Rate (L/min) 2 Weight: 63.503 kg Body Mass Index (BMI) 59.4 Physical Exam Const alert and oriented x3 General Appearance: cooperative HEENT normocephalic Extremity Extremity Narrative: No calf tenderness Diminished pulses Muscle wasting noted edema to limb is mild General Extremity: edema; Negative for cyanosis Skin Skin Narrative: no purulence, no streaking, no odor, no infection. Adjacent skin is hairless and atrophic. Initial ulcer sites that had prior TheraSkin applications have reduced depth and are healthier in appearance with granular base. There is continued skin discontinuity between the 2 initial sites that is blending as one large cluster wound that is nearly circumferential. This is also a granular base with some peripheral peeling. There are some new epith elialization noted in island format. General Skin Exam: Negative for erythema Neuro Neuro Narrative: hypersensitivity to light touch Psych cooperative and affect normal Debridement Note Debridement Note Post-Debridement Measurements and Additional Note: Post-Debridement Measurements/Treatment TOMÁS - Nurse 1 - General Ulcer Assessment Start: 05/14/21 13:17 Freq: Status: Active Protocol: AYSHA Activity Type Activity Date Activity User E-Sign Co-Sign Detail Recorded Client Recorded Date Recorded By Document 05/14/21 13:17 RB [id number] 05/14/21 13:36 RB Document 05/21/21 14:13 DL [id number] 05/21/21 14:22 DL 05/14/21 05/21/21 13:17 14:13 - Today's Visit Information Type of service Follow-up Visit Follow-up Visit (Physician/PUBLIC HEALTH POLICY ANALYST (Physician/PUBLIC HEALTH POLICY ANALYST ) ) Arrival Mode Wheelchair Ambulatory Transfer Assistance None None Patient Identification Verified (Name & Yes Yes ) Patient Requires Transmission-Based No No Precautions Height and Weight Body Mass Index (BMI) 59.4 59.4 BMI Classification Obese Obese Vital Signs Temperature (97.8 F-99.1 F) 97.5 F L 99.1 F Temperature Source Temporal Temporal Pulse Rate (60-100) 94 87 Pulse Location Monitor Monitor Respiratory Rate (12-18) 18 20 H Respiratory rate source Observation Observation Blood Pressure (90/60-120/80) 154/60 H 149/52 H Blood Pressure Mean (mm Hg) 91 84 Source Monitor Monitor Position Semi-Fowlers Blood Pressure Location Left Arm History Since Last Visit- (Skip if this is Patient's initial visit) Have you changed medications since your No No last visit? Any new allergies or adverse reactions No No Had a fall/change in ADL's that may No No increase risk of falls Signs or symptoms of abuse and/or No No neglect since last visit Have you been in the hospital since your No No last visit? Has dressing in place as prescribed Yes Yes Has compression in place as prescribed Yes N/A Has offloadiing in place as prescribed No Yes Experienced any changes in pain level or No No management Pain Scale: 0-10 Numeric Is Patient Pain Free? Yes - Nurse 1 - General Ulcer Measurement Start: 05/14/21 13:17 Freq: Status: Active Protocol: Activity Type Activity Date Activity User E-Sign Co-Sign Detail Recorded Client Recorded Date Recorded By Document 05/14/21 13:17 RB [id number] 05/14/21 13:36 RB Document 05/21/21 14:13 DL [id number] 05/21/21 14:22 DL 05/14/21 05/21/21 13:17 14:13 Wound Center Nurse 1 3-left medial leg -Combined with other wound No -Current Size (cm) - Length 14 -Current Size (cm) - Width 7 -Current Size (cm) - Depth 0.1 -Total Square Cm 98 -Tunneling No -Undermining/Tunneling No -Circular Undermining No -Exudate Amt Medium -Exudate Type Serosanguineous -Wound Margin Distinct, Outline Attached -Granulation Amt Large (67-100%) -Granulation Quality [place],Red -Slough/Fibrin Yes -Necrosis Amt Small (1-33%) -Necrotic Tissue Type Adherent Slough -Structure Exposed N/A -Texture (Susana-wound Skin Appearance) Assessed -Moisture (Susana-wound Skin Appearance) Assessed -Color (Susana-wound Skin Appearance) Assessed -Temperature (Susana-wound Skin No Abnormality Appearance) (Pt Warm) -Tenderness on Palpation (Susana-wound No Skin Appearance) -Ulcer Cleansing Wound Cleanser -Foul Odor after Cleansing No -Anesthetic Used 4% Lidocaine Solution,5% Lidocaine Gel #1 LLE lateral -Combined with other wound No -Current Size (cm) - Length 7.5 18.5 -Current Size (cm) - Width 4 21 -Current Size (cm) - Depth 0.1 0.1 -Total Square Cm 30.0 388.5 -Photo Taken No -Tunneling No -Undermining/Tunneling No -Circular Undermining No -Exudate Amt Large Medium -Exudate Type Serosanguineous Serosanguineous -Wound Margin Distinct, Distinct, Outline Outline Attached Attached -Granulation Amt Medium (34-66%) Medium (34-66%) -Granulation Quality Pale Red -Slough/Fibrin Yes -Necrosis Amt Large (67-100%) Medium (34-66%) -Necrotic Tissue Type Adherent Slough Adherent Slough -Structure Exposed N/A N/A -Texture (Susana-wound Skin Appearance) Assessed, Excoriation, Excoriation Scarring -Moisture (Susana-wound Skin Appearance) Assessed Weeping -Color (Susana-wound Skin Appearance) Assessed Mottled -Temperature (Susana-wound Skin No Abnormality No Abnormality Appearance) (Pt Warm) (Pt Warm) -Tenderness on Palpation (Susana-wound No Yes Skin Appearance) -Ulcer Cleansing Wound Cleanser Rinsed/ Irrigated with Saline -Foul Odor after Cleansing No No -Anesthetic Used 4% Lidocaine 4% Lidocaine Solution,5% Solution,5% Lidocaine Gel Lidocaine Gel Lower Limb Edema Present Yes Left Calf (cm) 32.5 Left Ankle (cm) 22 WC - Nurse 2 - General Ulcer CM Notes Start: 05/14/21 13:17 Freq: Status: Active Protocol: Activity Type Activity Date Activity User E-Sign Co-Sign Detail Recorded Client Recorded Date Recorded By Document 05/14/21 13:43 [id number] 05/14/21 13:54 Document 05/21/21 18:31 PL [id number] 05/21/21 18:33 PL 05/14/21 05/21/21 13:43 18:31 Wound Center Nurse 2 3-left medial leg -Correct Patient No -Correct Side, Site, Position No -Correct Procedure No -Procedure Performed No -Wound/Ulcer Outcome Converted #1 LLE lateral -Time 13:49 15:48 -Correct Patient Yes Yes -Correct Side, Site, Position Yes Yes -Correct Procedure Yes Yes -Procedure Performed Yes Yes -Type of Procedure Debridement Debridement -Clinical Debridement Epidermis / Subcutaneous Dermis -Tissue Removed Epidermis, Subcutaneous Dermis -Post Debridement (cm) - Length 11.5 18.5 -Post Debridement (cm) - Width 20 21.0 -Post Debridement (cm) - Depth 0.2 0.1 -Total Square (Post) (cm) 230.0 388.50 -Area of Debridement (cm) - Length 11.5 18.5 -Area of Debridement (cm) - Width 20 21.0 -Total Square (Area) (cm) 230.0 388.50 -Tunneling No No -Undermining/Tunneling No No -Circular Undermining No No -Wound/Ulcer Outcome Not Healed Not Healed -Ulcer Cleansing Rinsed/ Rinsed/ Irrigated with Irrigated with Saline Saline -Foul Odor after Cleansing No No -Bioengineered Tissue No No -Bleeding Controlled with Pressure Pressure -Offloading No -Treatment Response Procedure Procedure Tolerated Well Tolerated Well -Debridement - Open, 1st 20sq cm Yes -Debridement, Open, ea addt'l 20sq cm 11 or part thereof -Debridement - Subq, 1st 20sq cm Yes -Debridement, SubQ, ea addt'l 20sq cm 11 or part thereof Pain Scale: 0-10 Numeric Is Patient Pain Free? Yes WC - Nurse 3 - General Ulcer D/C NN Start: 05/14/21 13:17 Freq: Status: Active Protocol: Activity Type Activity Date Activity User E-Sign Co-Sign Detail Recorded Client Recorded Date Recorded By Document 05/14/21 13:54 [id number] 05/14/21 13:55 Document 05/21/21 16:09 [facility] [id number] 05/21/21 16:09 [facility] 05/14/21 05/21/21 13:54 16:09 Wound Care Nurse 3 #1 LLE lateral -Ulcer Cleansing Rinsed/ Rinsed/ Irrigated with Irrigated with Saline Saline -Foul Odor after Cleansing No No -Primary Dressing Applied C Hydrogel ($), C Hydrogel ($), NonAdherent NonAdherent Contact Layer Contact Layer -Primary Dressing Covered/Secured with Dry Gauze & Other Roll Gauze -Other Covering super absorber, abd Left -Compression Wrap Candelario Wrap Candelario Wrap Treatment Response Procedure Tolerated Well Pain Scale: 0-10 Numeric Is Patient Pain Free? Yes Yes WC - Visit Discharge Discharge Condition Stable Stable Ambulatory Status Ambulatory Wheelchair Transportation Private Auto Private Auto Accompanied by daughter Medication Reconcilliation completed & Yes provided to patient/care provider Clinical Summary of Care Provided Yes Wound debrided: left leg Wound Grade/Stage: Type of Debridement: Selective debridement Anesthesia Used: 4% Lidocaine Solution Depth: Down to and including healthy tissue Percentage of wound debrided: 100 Instrument Used: #15 blade Tissue Removed: fibrous, devitalized subcutaneous, biofilm, slough Severity: Fat Layer Exposed Amount of bleeding with debridement: Mild Bleeding Controlled with: Pressure Patient tolerated procedure: Patient tolerated procedure well Assessment/Plan Assessment/Plan (1) Ulcer of left lower extremity with fat layer exposed: CODE(S): L97.922 - Non-pressure chronic ulcer of unspecified part of left lower leg with fat layer exposed (2) Localized edema: CODE(S): R60.0 - Localized edema (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 Selective debridement was performed as noted. She has had and reporting excessive drainage and now reports an odor. To wash leg every day with antibacterial soap and water. To gently dry with a clean towel. To apply hydrogel and Adaptic. To continue with max absorption secondary dressing. Her pain is significantly reduced since her arterial intervention and recently her leg surgery. To follow-up with Dr. Morel as advised. It is noted she had angioplasty to the aorta and iliac level to reperfusion the left lower limb on 02-12-2021. Additional distal stenting also be considered. To follow-up as advised. She was reassured no local signs of infection or purulence are noted today. She is under the management of infectious disease physician. Management is appreciated. She completed a course of iv cefepime cover deeper infection for duration of 6 weeks with a stop date of 03/24/2021. 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 De La Cruz today and her case was discussed. We previously reviewed her ongoing main options which include a below the knee amputation, palliative program, versus wound healing now that recent improvement is noted with advanced wound healing product application. Overall, she is doing well since surgery and will proceed forward with local wound care in the clinical setting. Due to the increased drainage and odor concern, I recommend holding off on additional TheraSkin application today. This will be considered at future visits. Due to her recent deterioration and reported odor, a wound culture was obtained (aerobic, anaerobic, mrsa pcr) for contamination versus infection workup. This was obtained post debridement and saline irrigation. She does not have other local signs of infection or systemic illness. Antibiotic use is a concern due to her c-diff history and will be reserved pending culture results and clinical infection sign development. I advised her to maintain better control her edema with intermittent elevation and muscular contraction of the involved post polio syndrome leg. I recommend Tubigrip application and she relates she only able to tolerate this part of the time. It is okay for her to wear a properly fitted and protected shoe and to weight-bear as tolerated to the left lower extremity. She is advised wearing Candelario wrap at least. To proceed with a proper control diet and nutrition supplementation to optimize healing. I answered all of her questions and explained the etiology of ulcer causes and the comprehensive wound healing plan. Note: [employer] speech recognition border measurer and cutter software was used to create portions of this document. Sound-alike and misspelled words, as well as other border measurer and cutter errors may be contained in the documentation.
--- NOTE | 2021-05-21 22:39 | PCM.PN.ID ---
Physical Exam Narrative LLE much more sore and raw. Daughter reports mild odor when dressing removed today. Completed po vanc last week. Stool is soft, no diarrhea. Const alert General Appearance: cooperative Resp normal air movement and clear to auscultation bilaterally Cardio regular rate and regular rhythm GI normal to inspection, nondistended, normoactive bowel sounds Skin Skin Narrative: L [place] and calf with hsallow ulcer, no purulence ID ID: Route of nutrition/ use of supplements: [] Nutritional Intake: [] IV Site: [] [place] Catheter: [] Assessment & Plan Assessment/Plan (1) Ulcer of left lower extremity, limited to breakdown of skin: PLAN: Does not appear grossly infected. Will get wound cx today. Hopefully can avoid abx and treat with topical therapy given her recurrent cdiff. Will follow, d/w Dr. Cooper
[2021-05-22 16:41] LABS: M R Staph aureus DNA By PCR Negative (Negative); Probe Check PASS; Staph aureus DNA By PCR POSITIVE (Negative)
[2021-05-28 14:37] VITALS: RESP 18; TEMP 36.2; BMI 59.4
--- NOTE | 2021-05-28 15:29 | PCM.WC.PN ---
History of Present Illness Date of Service: 05/28/21 Chief Complaint: Left leg ulcer History of Wound: This 70-year-old female with multiple comorbidities was seen for follow up of left ulcer on the leg. She has had prior application of advanced wound healing products in clinic and also in the operating room including TheraSkin and amnio fill. She denies fever, chill, nausea, vomiting. She denies redness or odor. She also recently had vascular intervention. She has some moderate increase in pain this past week and has continued excessive drainage. She was advised to wash with antimicrobial soap and relates that this was only done one time earlier today. She is with her daughter. Her daughter wants to know if she would qualify for hyperbaric oxygen therapy. She reports continued excessive moisture which seems to be absorbed by her super absorption dressing product. Progress of Wound: Stable Objective Data Objective Data Vital Signs: Vital Signs Temp Pulse Resp BP 97.2 F L 87 18 149/52 H 05/28/21 14:37 05/21/21 14:13 05/28/21 14:37 05/21/21 14:13 Oxygen Flow Rate (L/min) 2 Oxygen Delivery Method Room Air Weight: 63.503 kg Body Mass Index (BMI) 59.4 Lab / Micro Data Micro: Microbiology 05/21/21 15:50 Wound Abcess - Leg, Left Gram Stain - Final 05/21/21 15:50 Wound Abcess - Leg, Left Wound Culture - Final Staphylococcus aureus 05/21/21 15:50 Wound Abcess - Leg, Left Anaerobic Culture - Final No anaerobic bacteria isolated. Physical Exam Const alert and oriented x3 General Appearance: cooperative HEENT normocephalic Extremity Extremity Narrative: No calf tenderness Diminished pulses Muscle wasting noted edema to limb is mild General Extremity: edema; Negative for cyanosis Skin Skin Narrative: Now the ulcer is completely circumferential around the leg, and very superficial with granular base and some hemorrhagic tissue. There is no purulence, no erythema, no streaking, no odor appreciated today. There is no bogginess or fluctuance on palpation. The dressings were evaluated and there is moderate amount which does not seem to be meeting the maximum limit of this dressing product. There is no sb odor appreciated. General Skin Exam: Negative for erythema Neuro Neuro Narrative: hypersensitivity to light touch Psych cooperative and affect normal Debridement Note Debridement Note Post-Debridement Measurements and Additional Note: Post-Debridement Measurements/Treatment WC - Nurse 1 - General Ulcer Assessment Start: 05/14/21 13:17 Freq: Status: Active Protocol: AYSHA Activity Type Activity Date Activity User E-Sign Co-Sign Detail Recorded Client Recorded Date Recorded By Document 05/14/21 13:17 RB [id number] 05/14/21 13:36 RB Document 05/21/21 14:13 DL [id number] 05/21/21 14:22 DL Document 05/28/21 14:37 MT [id number] 05/28/21 14:58 MT 05/14/21 05/21/21 05/28/21 13:17 14:13 14:37 - Today's Visit Information Type of service Follow-up Visit Follow-up Visit Follow-up Visit (Physician/PIN DRAFTER OPERATOR (Physician/PIN DRAFTER OPERATOR (Physician/PIN DRAFTER OPERATOR ) ) ) Arrival Mode Wheelchair Ambulatory Wheelchair Transfer Assistance None None Accompanied by daughter Patient Identification Verified (Name & Yes Yes Yes ) Patient Requires Transmission-Based No No Precautions Height and Weight Body Mass Index (BMI) 59.4 59.4 59.4 BMI Classification Obese Obese Obese Vital Signs Temperature (97.8 F-99.1 F) 97.5 F L 99.1 F 97.2 F L Temperature Source Temporal Temporal Temporal Pulse Rate (60-100) 94 87 Pulse Location Monitor Monitor Monitor Respiratory Rate (12-18) 18 20 H 18 Respiratory rate source Observation Observation Observation Oxygen Delivery Method Room Air Blood Pressure (90/60-120/80) 154/60 H 149/52 H Blood Pressure Mean (mm Hg) 91 84 Source Monitor Monitor Monitor Position Semi-Fowlers Sitting Blood Pressure Location Left Arm Right Arm History Since Last Visit- (Skip if this is Patient's initial visit) Have you changed medications since your No No last visit? Any new allergies or adverse reactions No No Had a fall/change in ADL's that may No No increase risk of falls Signs or symptoms of abuse and/or No No neglect since last visit Have you been in the hospital since your No No last visit? Has dressing in place as prescribed Yes Yes Yes Has compression in place as prescribed Yes N/A Yes Has offloadiing in place as prescribed No Yes Yes Experienced any changes in pain level or No No Yes management Left Footwear Regular Shoe Right Footwear Regular Shoe Pain Scale: 0-10 Numeric Is Patient Pain Free? Yes - Nurse 1 - General Ulcer Measurement Start: 05/14/21 13:17 Freq: Status: Active Protocol: Activity Type Activity Date Activity User E-Sign Co-Sign Detail Recorded Client Recorded Date Recorded By Document 05/14/21 13:17 RB [id number] 05/14/21 13:36 RB Document 05/21/21 14:13 DL [id number] 05/21/21 14:22 DL Document 05/28/21 14:37 MT [id number] 05/28/21 14:58 DC 05/14/21 05/21/21 05/28/21 13:17 14:13 14:37 Wound Center Nurse 1 3-left medial leg -Combined with other wound No -Current Size (cm) - Length 14 -Current Size (cm) - Width 7 -Current Size (cm) - Depth 0.1 -Total Square Cm 98 -Tunneling No -Undermining/Tunneling No -Circular Undermining No -Exudate Amt Medium -Exudate Type Serosanguineous -Wound Margin Distinct, Outline Attached -Granulation Amt Large (67-100%) -Granulation Quality [place],Red -Slough/Fibrin Yes -Necrosis Amt Small (1-33%) -Necrotic Tissue Type Adherent Slough -Structure Exposed N/A -Texture (Susana-wound Skin Appearance) Assessed -Moisture (Susana-wound Skin Appearance) Assessed -Color (Susana-wound Skin Appearance) Assessed -Temperature (Susana-wound Skin No Abnormality Appearance) (Pt Warm) -Tenderness on Palpation (Susana-wound No Skin Appearance) -Ulcer Cleansing Wound Cleanser -Foul Odor after Cleansing No -Anesthetic Used 4% Lidocaine Solution,5% Lidocaine Gel #1 LLE lateral -Combined with other wound No -Current Size (cm) - Length 7.5 18.5 26 -Current Size (cm) - Width 4 21 26 -Current Size (cm) - Depth 0.1 0.1 0.1 -Total Square Cm 30.0 388.5 676 -Photo Taken No -Tunneling No -Undermining/Tunneling No -Circular Undermining No -Exudate Amt Large Medium Large -Exudate Type Serosanguineous Serosanguineous Sanguineous -Wound Margin Distinct, Distinct, Distinct, Outline Outline Outline Attached Attached Attached -Granulation Amt Medium (34-66%) Medium (34-66%) Medium (34-66%) -Granulation Quality Pale Red Pale,Red -Slough/Fibrin Yes -Necrosis Amt Large (67-100%) Medium (34-66%) Medium (34-66%) -Necrotic Tissue Type Adherent Slough Adherent Slough Adherent Slough -Structure Exposed N/A N/A -Texture (Susana-wound Skin Appearance) Assessed, Excoriation, Assessed Excoriation Scarring -Moisture (Susana-wound Skin Appearance) Assessed Weeping Assessed, Weeping -Color (Susana-wound Skin Appearance) Assessed Mottled Assessed, Erythema, Hemosiderin Staining -Temperature (Susana-wound Skin No Abnormality No Abnormality No Abnormality Appearance) (Pt Warm) (Pt Warm) (Pt Warm) -Tenderness on Palpation (Susana-wound No Yes No Skin Appearance) -Ulcer Cleansing Wound Cleanser Rinsed/ Wound Cleanser Irrigated with Saline -Foul Odor after Cleansing No No No -Anesthetic Used 4% Lidocaine 4% Lidocaine 4% Lidocaine Solution,5% Solution,5% Solution Lidocaine Gel Lidocaine Gel Lower Limb Edema Present Yes Yes Left Calf (cm) 32.5 Left Ankle (cm) 22 - Nurse 2 - General Ulcer CM Notes Start: 05/14/21 13:17 Freq: Status: Active Protocol: Activity Type Activity Date Activity User E-Sign Co-Sign Detail Recorded Client Recorded Date Recorded By Document 05/14/21 13:43 [id number] 05/14/21 13:54 Document 05/21/21 18:31 PL [id number] 05/21/21 18:33 PL Document 05/28/21 15:13 [id number] 05/28/21 15:23 05/14/21 05/21/21 05/28/21 13:43 18:31 15:13 Wound Center Nurse 2 3-left medial leg -Correct Patient No -Correct Side, Site, Position No -Correct Procedure No -Procedure Performed No -Wound/Ulcer Outcome Converted #1 LLE lateral -Time 13:49 15:48 -Correct Patient Yes Yes No -Correct Side, Site, Position Yes Yes No -Correct Procedure Yes Yes No -Procedure Performed Yes Yes No -Type of Procedure Debridement Debridement -Clinical Debridement Epidermis / Subcutaneous Dermis -Tissue Removed Epidermis, Subcutaneous Dermis -Post Debridement (cm) - Length 11.5 18.5 -Post Debridement (cm) - Width 20 21.0 -Post Debridement (cm) - Depth 0.2 0.1 -Total Square (Post) (cm) 230.0 388.50 -Area of Debridement (cm) - Length 11.5 18.5 -Area of Debridement (cm) - Width 20 21.0 -Total Square (Area) (cm) 230.0 388.50 -Tunneling No No -Undermining/Tunneling No No -Circular Undermining No No -Wound/Ulcer Outcome Not Healed Not Healed Not Healed -Ulcer Cleansing Rinsed/ Rinsed/ Irrigated with Irrigated with Saline Saline -Foul Odor after Cleansing No No -Bioengineered Tissue No No -Bleeding Controlled with Pressure Pressure -Offloading No -Treatment Response Procedure Procedure Tolerated Well Tolerated Well -Debridement - Open, 1st 20sq cm Yes -Debridement, Open, ea addt'l 20sq cm 11 or part thereof -Debridement - Subq, 1st 20sq cm Yes -Debridement, SubQ, ea addt'l 20sq cm 11 or part thereof Pain Scale: 0-10 Numeric Is Patient Pain Free? Yes Yes - Nurse 3 - General Ulcer D/C NN Start: 05/14/21 13:17 Freq: Status: Active Protocol: Activity Type Activity Date Activity User E-Sign Co-Sign Detail Recorded Client Recorded Date Recorded By Document 05/14/21 13:54 [id number] 05/14/21 13:55 Document 05/21/21 16:09 [facility] [id number] 05/21/21 16:09 [facility] 05/14/21 05/21/21 13:54 16:09 Wound Care Nurse 3 #1 LLE lateral -Ulcer Cleansing Rinsed/ Rinsed/ Irrigated with Irrigated with Saline Saline -Foul Odor after Cleansing No No -Primary Dressing Applied C Hydrogel ($), C Hydrogel ($), NonAdherent NonAdherent Contact Layer Contact Layer -Primary Dressing Covered/Secured with Dry Gauze & Other Roll Gauze -Other Covering super absorber, abd Left -Compression Wrap Candelario Wrap Candelario Wrap Treatment Response Procedure Tolerated Well Pain Scale: 0-10 Numeric Is Patient Pain Free? 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 Debridement was not performed today. To wash leg every day with anti microbial soap and water. To gently dry with a clean towel. To continue with max absorption secondary dressing. We will put a hold on hydrogel and Adaptic to see if this reduces the amount of moisture and skin peeling. It is also okay to allow to rest with no dressings for 1 to 2 hours during the dressing change process. Her pain is significantly reduced since her arterial intervention and recently her leg surgery. To follow-up with Dr. Morel as advised. It is noted she had angioplasty to the aorta and iliac level to reperfusion the left lower limb on 02-12-2021. Additional distal stenting also be considered. To follow-up as advised. She has a follow-up in June and does not know the exact date. She has had recent anteriorization and I encouraged her to consider additional intervention if this is possible. This note will also be sent to Dr. Morel for communication purposes. She was reassured no local signs of infection or purulence are noted today. She is under the management of infectious disease physician for recurrent leg infections and also for C. difficile management which is appreciated. She completed a course of iv cefepime cover deeper infection for duration of 6 weeks with a stop date of 03/24/2021. 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 Wound culture was obtained last week with only staph aureus growth. I am concerned that this is more of a contamination and like to address this with antimicrobial soap and updated wound care plan. I am apprehensive to put her on any additional antibiotics due to the lack of cardinal signs of infection and also her history of intolerance to many antibiotics. We previously reviewed her ongoing main options which include a below the knee amputation, palliative program, versus wound healing now that recent improvement is noted with advanced wound healing product application. Overall, she is doing well since surgery and will proceed forward with local wound care in the clinical setting however there is a recent anteriorization now with a circumferential ulcer and increased skin compromise. Diagnostic data evaluation will be updated with a leg x-ray. I advised her to maintain better control her edema with intermittent elevation and muscular contraction of the involved post polio syndrome leg. I recommend Tubigrip application and she relates she only able to tolerate this part of the time. It is okay for her to wear a properly fitted and protected shoe and to weight-bear as tolerated to the left lower extremity. She is advised wearing Candelario wrap at least. Her daughter wants to proceed with hyperbaric oxygen therapy and I explained the current insurance criteria in which she does not appear to be meeting. Additional diagnostic data will be ordered today to evaluate for any new information of deeper involvement. To proceed with a proper control diet and nutrition supplementation to optimize healing. I answered all of her questions and explained the etiology of ulcer causes and the comprehensive wound healing plan. Note: [employer] speech recognition grinding machine tender software was used to create portions of this document. Sound-alike and misspelled words, as well as other grinding machine tender errors may be contained in the documentation. 20 minutes was spent on this encounter. This included face to face and non face to face care including preparing for the visit, reviewing the history, performing the exam, counseling and providing education to the patient, family, or caregiver, ordering medications/test/ procedures if indicated as documented, communicating with other healthcare providers, documenting information in the medical record, interpreting / sharing this information when indicated as documented, and care coordination. The medical decision making level is limited based on data including the review of prior external notes, review of a prior test, or ordering a test.
--- NOTE | 2021-05-28 16:00 | RAD_ITS ---
STUDY: X-RAY - LEFT TIBIA AND FIBULA REASON FOR EXAM: Female, 70 years old. Chronic leg ulcer. TECHNIQUE: 2 view(s) of the tibia and fibula were obtained. COMPARISON: 02/03/2021. FINDINGS: Stable marked generalized osteopenia. Normal tibia. Stable healing fracture of the distal fibula. Stable ulceration along the lateral aspect of the tibia. RAD/Tibia & Fibula 2 Views IMPRESSION: Stable osteopenia with healing fracture of the fibula and soft tissue ulcerations laterally. No bone resorption. Electronically Signed: Anton Gibson MD at 10:35 EDT , Service support ,
== END 2021-06-07 23:59 ==
LOC: WC 14:15
PROVIDERS: PCP Family Medicine; Referring Provider Podiatrist; Visit Provider Podiatrist
DX: I87.2 Venous insufficiency (chronic) (peripheral) (principal); L97.922 Non-pressure chronic ulcer of unspecified part of left lower leg with fat layer exposed; L97.221 Non-pressure chronic ulcer of left calf limited to breakdown of skin; A04.71 Enterocolitis due to Clostridium difficile, recurrent; G14 Postpolio syndrome; R60.0 Localized edema; I73.89 Other specified peripheral vascular diseases; Z22.9 Carrier of infectious disease, unspecified; E66.9 Obesity, unspecified; Z68.43 Body mass index [BMI] 50.0-59.9, adult; Z79.02 Long term (current) use of antithrombotics/antiplatelets; Z79.890 Hormone replacement therapy; Z79.899 Other long term (current) drug therapy
CPT/HCPCS: 11042; 11045; 73590; 87070; 87075; 87077; 87186; 87205; 87640; 97597; 97598; 99213; G0463

== ENCOUNTER → 2021-06-17 08:58 | Outpatient (CLI) | payer MEDICARE, OTHER, SELFPAY ==
[2021-03-12 14:18] VITALS: BMI 27.1
[2021-06-11 16:11] VITALS: BMI 59.4
--- NOTE | 2021-06-17 09:01 | AAVD_ITS ---
Reason For Study: Stricture of artery Aorta Measurements Aorta Doppler Measurements Proximal aorta measures1.04 x 1.07cm. in cross- Peak systolic flow velocities within the proximal sectional axis. aorta measure 80.6 cm/sec. Proximal aorta measures1.03cm. in longitudinal Peak systolic flow velocities within the mid aorta axis. measure 108.9 cm/sec. Mid aorta measures0.89 x 0.85cm. in cross- Peak systolic flow velocities within the distal sectional axis. aorta measure 89.1 cm/sec. Mid aorta measures0.95cm. in longitudinal axis. Distal aorta measures0.87 x 0.85cm. in cross- sectional axis. Distal aorta measures0.85cm. in longitudinal axis. Left Iliac Artery Left iliac artery measures 0.53 x 0.55 cm. in the cross-sectional axis. Left iliac artery measures 0.67 cm. in the longitudinal axis. Peak systolic velocity in the left iliac artery measures 233.9 cm/sec. Right Iliac Artery Right iliac artery measures 0.56 x 0.56 cm. in the cross-sectional axis. Right iliac artery measures 0.55 cm. in the longitudinal axis. Peak systolic velocity in the right iliac artery measures 122 cm/sec. Procedure Aorta IVC Iliac vasculature or bypass grafts [id number]. Exam performed in department. VL/Abd Aortic/IVC Duplex scan Interpretation Summary No evidence of aortic iliac aneurysm or severe stenosis. Mild to moderate eleva tion left common iliac with a PSV of 234. Ordering Physician: Bryan Morel Referring Physician: Boo Cotton Performed By: Stella Monique RVT
--- NOTE | 2021-06-17 09:01 | ART_ITS ---
Reason For Study: Claudication Procedure A bilateral lower extremity continuous wave Doppler with analog waveform analysis and ankle brachial indexes. Left Segmental Pressures Left brachial= 167mmHg. Left digit = 100 mmHg. The left dorsalis pedis waveforms are biphasic. The left posterior tibial artery waveforms are biphasic. Right Segmental Pressures Right brachial= 180mmHg. Right posterior tibial artery = 80mmHg. Right dorsalis pedis artery = 79mmHg. Right digit = 0.34 mmHg. The right dorsalis pedis waveforms are monophasic. The right posterior tibial artery waveforms are monophasic. Indices The right ankle brachial index by the dorsalis pedis is 0.44. The right ankle brachial index by the posterior tibial artery is 0.44. The right digital-brachial index is 0.34. The left digital-brachial index is 0.56. VL/Ankle Brachial Index Interpretation Summary Right leg with moderate occlusive disease with monophasic flow and an EDUARDO 0.44. Left leg with biphasic flow noted. Digit brachial index of 0.34 and 0.56. Ordering Physician: Bryan Morel Referring Physician: Boo Cotton Performed By: Stella Monique RVT
== END ==
PROVIDERS: PCP Family Medicine; Referring Provider Surgery Vascular Surgery; Visit Provider Surgery Vascular Surgery
DX: I77.1 Stricture of artery (principal); M79.89 Other specified soft tissue disorders; M79.605 Pain in left leg; I70.213 Atherosclerosis of native arteries of extremities with intermittent claudication, bilateral legs; E78.00 Pure hypercholesterolemia, unspecified; E07.9 Disorder of thyroid, unspecified; D89.89 Other specified disorders involving the immune mechanism, not elsewhere classified; F41.9 Anxiety disorder, unspecified; I83.892 Varicose veins of left lower extremity with other complications; I73.9 Peripheral vascular disease, unspecified; I10 Essential (primary) hypertension
CPT/HCPCS: 93922; 93978

== ENCOUNTER 2021-06-25 13:00 | Outpatient (RCR) | payer MEDICARE, OTHER, SELFPAY ==
[2021-06-08 00:16] VITALS: BP 149/52; PULSE 87; RESP 18; TEMP 36.2
[2021-06-11 16:11] VITALS: BP 133/52; PULSE 79; TEMP 37.2; BMI 59.4
--- NOTE | 2021-06-11 17:01 | PCM.WC.PN ---
History of Present Illness Date of Service: 06/11/21 Chief Complaint: Left leg ulcer History of Wound: This 70-year-old female with multiple comorbidities was seen for follow up of left ulcer on the leg. She has had prior application of advanced wound healing products in clinic and also in the operating room including TheraSkin and amnio fill. She denies fever, chill, nausea, vomiting. She denies redness or odor. She also recently had vascular intervention. She has some moderate increase in pain this past week and has continued excessive drainage. She was advised to wash with antimicrobial soap. She relates decreased drainage. Progress of Wound: improved quality from last visit Objective Data Objective Data Vital Signs: Vital Signs Temp Pulse Resp BP 98.9 F 79 18 133/52 H 06/11/21 16:11 06/11/21 16:11 06/08/21 00:16 06/11/21 16:11 Oxygen Flow Rate (L/min) 2 Weight: 63.503 kg Body Mass Index (BMI) 59.4 Physical Exam Const alert and oriented x3 General Appearance: cooperative HEENT normocephalic Extremity Extremity Narrative: No calf tenderness Diminished pulses Muscle wasting noted edema to limb is mild General Extremity: edema; Negative for cyanosis Skin Skin Narrative: Now the ulcer is completely circumferential around the leg, and very superficial with granular base and some hemorrhagic tissue. Significant epithelialization islands and also peripheral epithelialization is noted with pale epithelial tissue compared to last visit to the circumferential wound site. There is no purulence, no erythema, no streaking, no odor appreciated today. There is no bogginess or fluctuance on palpation. The dressings were evaluated and there is decreased amount There is no sb odor appreciated. General Skin Exam: Negative for erythema Neuro Neuro Narrative: hypersensitivity to light touch Psych cooperative and affect normal Debridement Note Debridement Note Post-Debridement Measurements and Additional Note: Post-Debridement Measurements/Treatment WC - Nurse 1 - General Ulcer Assessment Start: 06/11/21 16:11 Freq: Status: Active Protocol: AYSHA Activity Type Activity Date Activity User E-Sign Co-Sign Detail Recorded Client Recorded Date Recorded By Document 06/11/21 16:11 YAYO [id number] 06/11/21 16:27 YAYO 06/11/21 16:11 - Today's Visit Information Type of service Follow-up Visit (Physician/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 Any new allergies or adverse reactions No Had a fall/change in ADL's that may No increase risk of falls Signs or symptoms of abuse and/or No neglect since last visit Have you been in the hospital since your No last visit? Has dressing in place as prescribed Yes Has compression in place as prescribed Yes Has offloadiing in place as prescribed Yes Experienced any changes in pain level or No management Left Footwear Regular Shoe Right Footwear Regular Shoe WC - Nurse 1 - General Ulcer Measurement Start: 06/11/21 16:11 Freq: Status: Active Protocol: Activity Type Activity Date Activity User E-Sign Co-Sign Detail Recorded Client Recorded Date Recorded By Document 06/11/21 16:11 YAYO [id number] 06/11/21 16:27 YAYO 06/11/21 16:11 Wound Center Nurse 1 #1 LLE lateral -Combined with other wound No -Current Size (cm) - Length 25.0 -Current Size (cm) - Width 30.0 -Current Size (cm) - Depth 0.1 -Total Square Cm 750.00 -Photo Taken No -Epithelialization None Present -Tunneling No -Undermining/Tunneling No -Circular Undermining No -Change in Wound Grade/Stage No -Exudate Type Yellow/Green -Wound Margin Indistinct, Non -Visible -Granulation Amt None Present (0 %) -Slough/Fibrin Yes -Necrosis Amt Large (67-100%) -Texture (Susana-wound Skin Appearance) Assessed, Excoriation -Moisture (Susana-wound Skin Appearance) Assessed, Maceration, Weeping -Color (Susana-wound Skin Appearance) Assessed, Erythema -Temperature (Susana-wound Skin No Abnormality Appearance) (Pt Warm) -Tenderness on Palpation (Susana-wound Yes Skin Appearance) -Ulcer Cleansing Cindi Hex -Anesthetic Used 4% Lidocaine Solution,5% Lidocaine Gel Lower Limb Edema Present Yes WC - Nurse 2 - General Ulcer CM Notes Start: 06/11/21 16:11 Freq: Status: Active Protocol: Activity Type Activity Date Activity User E-Sign Co-Sign Detail Recorded Client Recorded Date Recorded By Document 06/11/21 16:35 FELISHA [id number] 06/11/21 16:39 FELISHA 06/11/21 16:35 Wound Center Nurse 2 #1 LLE lateral -Time 16:37 -Correct Patient Yes -Correct Side, Site, Position Yes -Correct Procedure Yes -Procedure Performed Yes -Type of Procedure Debridement -Clinical Debridement Subcutaneous -Tissue Removed Subcutaneous -Post Debridement (cm) - Length 25.1 -Post Debridement (cm) - Width 30 -Post Debridement (cm) - Depth 0.1 -Total Square (Post) (cm) 753.0 -Area of Debridement (cm) - Length 25.1 -Area of Debridement (cm) - Width 30 -Total Square (Area) (cm) 753.0 -Tunneling No -Undermining/Tunneling No -Circular Undermining No -Wound/Ulcer Outcome Not Healed -Ulcer Cleansing Wound Cleanser -Foul Odor after Cleansing No -Bioengineered Tissue No -Bleeding Controlled with Pressure -Offloading No -Treatment Response Procedure Tolerated Well -Debridement - Subq, 1st 20sq cm Yes -Debridement, SubQ, ea addt'l 20sq cm 11 or part thereof Pain Scale: 0-10 Numeric Is Patient Pain Free? Yes - Nurse 3 - General Ulcer D/C NN Start: 06/11/21 16:11 Freq: Status: Active Protocol: Activity Type Activity Date Activity User E-Sign Co-Sign Detail Recorded Client Recorded Date Recorded By Document 06/11/21 16:51 YAYO [id number] 06/11/21 16:54 YAYO 06/11/21 16:51 Wound Care Nurse 3 #1 LLE lateral -Ulcer Cleansing Rinsed/ Irrigated with Saline -Foul Odor after Cleansing No -Primary Dressing Applied C Hydrogel ($) -Primary Dressing Covered/Secured with Dry Gauze & Roll Gauze, Secured with Tape -Other Covering adaptic left leg -Lotion applied to leg before No compression wrap -Compression Wrap Candelario Wrap WC - Visit Discharge Discharge Condition Stable Ambulatory Status Wheelchair Transportation Private Auto Clinical Summary of Care Provided Yes Wound debrided: Left leg circumferential ulcer Wound Grade/Stage: Type of Debridement: Excisional debridement Anesthesia Used: 4% Lidocaine Solution Depth: in the subcutaneous layer Percentage of wound debrided: 100 Instrument Used: #15 blade Tissue Removed: fibrous, devitalized subcutaneous, biofilm, slough Severity: Fat Layer Exposed Amount of bleeding with debridement: Mild Bleeding Controlled with: Pressure Patient tolerated procedure: Patient tolerated procedure well Assessment/Plan Assessment/Plan (1) Ulcer of left lower extremity with fat layer exposed: CODE(S): L97.922 - Non-pressure chronic ulcer of unspecified part of left lower leg with fat layer exposed (2) Localized edema: CODE(S): R60.0 - Localized edema (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 Debridement was performed today as noted in the clinical nursing panel. To wash leg every day with anti microbial soap and water. To gently dry with a clean towel. To continue with max absorption secondary dressing. We will put a hold on hydrogel and Adaptic to see if this reduces the amount of moisture and skin peeling. It is also okay to intermittently avoid Adaptic use to reduce maceration and fluid buildup. It is also okay to allow to rest with no dressings for 1 to 2 hours during the dressing change process. She has done well with this plan so far. Her pain is significantly reduced since her arterial intervention and recently her leg surgery. To follow-up with Dr. Morel as advised. It is noted she had angioplasty to the aorta and iliac level to reperfusion the left lower limb on 02-12-2021. Additional distal stenting also be considered. To follow-up as advised. She has a follow-up in June and does not know the exact date. She has had recent anteriorization and I encouraged her to consider additional intervention if this is possible. This note will also be sent to Dr. Morel for communication purposes. She was reassured no local signs of infection or purulence are noted today. She is under the management of infectious disease physician for recurrent leg infections and also for C. difficile management which is appreciated. She completed a course of iv cefepime cover deeper infection for duration of 6 weeks with a stop date of 03/24/2021. 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 She had a recent flareup and has been in contact with infectious disease specialist, Dr. De La Cruz which her diarrhea has now resolved. Wound culture was recently and previously obtained with only staph aureus growth. I am concerned that this is more of a contamination and like to address this with antimicrobial soap and updated wound care plan. I am apprehensive to put her on any additional antibiotics due to the lack of cardinal signs of infection and also her history of intolerance to many antibiotics. We previously reviewed her ongoing main options which include a below the knee amputation, palliative program, versus wound healing now that recent improvement is noted with advanced wound healing product application. Overall, she is doing well since surgery and will proceed forward with local wound care in the clinical setting however there is a recent anteriorization now with a circumferential ulcer and increased skin compromise. Diagnostic data evaluation will be updated with a leg x-ray. I advised her to maintain better control her edema with intermittent elevation and muscular contraction of the involved post polio syndrome leg. I recommend Tubigrip application and she relates she only able to tolerate this part of the time. It is okay for her to wear a properly fitted and protected shoe and to weight-bear as tolerated to the left lower extremity. She is advised wearing Candelario wrap at least. X-rays are negative for acute osseous changes. She does not have a diagnosis of osteomyelitis nor any other known qualifying diagnosis to proceed with hyperbaric oxygen therapy. To proceed with a proper control diet and nutrition supplementation to optimize healing. I answered all of her questions and explained the etiology of ulcer causes and the comprehensive wound healing plan. Note: [employer] speech recognition campus interviews intern software was used to create portions of this document. Sound-alike and misspelled words, as well as other campus interviews intern errors may be contained in the documentation.
[2021-06-25 13:10] VITALS: BP 140/47; PULSE 78; RESP 18; TEMP 36.8; BMI 59.4
--- NOTE | 2021-06-25 14:12 | PCM.PROGNOTE ---
Objective Data Objective Data Vital Signs: Vital Signs Temp Pulse Resp BP 98.3 F 78 18 140/47 H 06/25/21 13:10 06/25/21 13:10 06/25/21 13:10 06/25/21 13:10 Oxygen Flow Rate (L/min) 2 Weight: 63.503 kg Body Mass Index (BMI) 59.4
--- NOTE | 2021-06-25 15:49 | PCM.WC.PN ---
History of Present Illness Date of Service: 06/25/21 Chief Complaint: Left leg ulcer History of Wound: This 70-year-old female with multiple comorbidities was seen for follow up of left ulcer on the leg. She has had prior application of advanced wound healing products in clinic and also in the operating room including TheraSkin and amnio fill. She denies fever, chill, nausea, vomiting. She denies redness or odor. She also previously had vascular intervention (arterial) and recently followed up with her vascular surgeon who will consider additional potential venous intervention. Physician notes will be requested. She has continued fluctuation in edema and reports she is trying her best to elevate. She is in the process of following up with her primary care physician to see if restarting Lasix is appropriate. She also relates her home health agency has been applying Adaptic touch and she is concerned there is extra moisture retention with this. She asked for advice on this. She also asked if a referral to the [place] [facility] is appropriate at this time. She has a new complaint today of new dry peeling skin to the top part of her left leg that extends behind her knee as well. Progress of Wound: improved quality from last visit Objective Data Objective Data Vital Signs: Vital Signs Temp Pulse Resp BP 98.3 F 78 18 140/47 H 06/25/21 13:10 06/25/21 13:10 06/25/21 13:10 06/25/21 13:10 Oxygen Flow Rate (L/min) 2 Weight: 63.503 kg Body Mass Index (BMI) 59.4 Physical Exam Const alert and oriented x3 General Appearance: cooperative HEENT normocephalic Extremity Extremity Narrative: No calf tenderness Diminished pulses Muscle wasting noted edema to limb is mild General Extremity: edema; Negative for cyanosis Skin Skin Narrative: Now the ulcer is completely circumferential around the leg, and very superficial with granular base and some hemorrhagic tissue. Significant continued epithelialization islands and also peripheral epithelialization is noted with pale epithelial tissue compared to last visit to the circumferential wound site. There is no purulence, no erythema, no streaking, no odor appreciated today. There is no bogginess or fluctuance on palpation. The dressings were evaluated and there is decreased amount There is no sb odor appreciated. There is some inflamed skin that extends to the proximal leg it is newer and even extends to the posterior left popliteal space without drainage; this appears dry without infections General Skin Exam: Negative for erythema Neuro Neuro Narrative: hypersensitivity to light touch Psych cooperative and affect normal Debridement Note Debridement Note Post-Debridement Measurements and Additional Note: Post-Debridement Measurements/Treatment WC - Nurse 1 - General Ulcer Assessment Start: 06/11/21 16:11 Freq: Status: Active Protocol: AYSHA Activity Type Activity Date Activity User E-Sign Co-Sign Detail Recorded Client Recorded Date Recorded By Document 06/11/21 16:11 [place] [id number] 06/11/21 16:27 [place] Document 06/25/21 13:10 [facility] [id number] 06/25/21 13:18 [facility] 06/11/21 06/25/21 16:11 13:10 WC - Today's Visit Information Type of service Follow-up Visit Follow-up Visit (Physician/MIND READER (Physician/MIND READER ) ) Arrival Mode Wheelchair Wheelchair Transfer Assistance None Patient Identification Verified (Name & Yes Yes ) Patient Requires Transmission-Based No Precautions Height and Weight Body Mass Index (BMI) 59.4 59.4 BMI Classification Obese Obese Vital Signs Temperature (97.8 F-99.1 F) 98.9 F 98.3 F Temperature Source Temporal Temporal Pulse Rate (60-100) 79 78 Pulse Location Monitor Monitor Respiratory Rate (12-18) 18 Respiratory rate source Observation Blood Pressure (90/60-120/80) 133/52 H 140/47 H Blood Pressure Mean (mm Hg) 79 78 Source Monitor Monitor Position Sitting Blood Pressure Location Left Arm History Since Last Visit- (Skip if this is Patient's initial visit) Have you changed medications since your Yes No last visit? Any new allergies or adverse reactions No No Had a fall/change in ADL's that may No No increase risk of falls Signs or symptoms of abuse and/or No No neglect since last visit Have you been in the hospital since your No No last visit? Has dressing in place as prescribed Yes Yes Has compression in place as prescribed Yes Yes Has offloadiing in place as prescribed Yes No Experienced any changes in pain level or No No management Left Footwear Regular Shoe Right Footwear Regular Shoe TOMÁS - Nurse 1 - General Ulcer Measurement Start: 06/11/21 16:11 Freq: Status: Active Protocol: Activity Type Activity Date Activity User E-Sign Co-Sign Detail Recorded Client Recorded Date Recorded By Document 06/11/21 16:11 [place] [id number] 06/11/21 16:27 [place] Document 06/25/21 13:10 [facility] [id number] 06/25/21 13:18 [facility] 06/11/21 06/25/21 16:11 13:10 Wound Center Nurse 1 #1 LLE lateral -Combined with other wound No No -Current Size (cm) - Length 25.0 33.5 -Current Size (cm) - Width 30.0 34.1 -Current Size (cm) - Depth 0.1 0.1 -Total Square Cm 750.00 1142.35 -Photo Taken No -Epithelialization None Present -Tunneling No No -Undermining/Tunneling No No -Circular Undermining No No -Change in Wound Grade/Stage No -Exudate Amt Large -Exudate Type Yellow/Green Serosanguineous -Wound Margin Indistinct, Non Distinct, -Visible Outline Attached -Granulation Amt None Present (0 Medium (34-66%) %) -Granulation Quality [place] -Slough/Fibrin Yes Yes -Necrosis Amt Large (67-100%) Large (67-100%) -Necrotic Tissue Type Adherent Slough -Structure Exposed N/A -Texture (Susana-wound Skin Appearance) Assessed, Excoriation Excoriation -Moisture (Susana-wound Skin Appearance) Assessed, Maceration Maceration, Weeping -Color (Susana-wound Skin Appearance) Assessed, Assessed Erythema -Temperature (Susana-wound Skin No Abnormality No Abnormality Appearance) (Pt Warm) (Pt Warm) -Tenderness on Palpation (Susana-wound Yes No Skin Appearance) -Ulcer Cleansing Cindi Hex Wound Cleanser -Foul Odor after Cleansing No -Anesthetic Used 4% Lidocaine 4% Lidocaine Solution,5% Solution Lidocaine Gel Lower Limb Edema Present Yes Yes Left Calf (cm) 34.1 Left Ankle (cm) 23.5 WC - Nurse 2 - General Ulcer CM Notes Start: 06/11/21 16:11 Freq: Status: Active Protocol: Activity Type Activity Date Activity User E-Sign Co-Sign Detail Recorded Client Recorded Date Recorded By Document 06/11/21 16:35 [id number] 06/11/21 16:39 Document 06/25/21 13:32 [id number] 06/25/21 13:41 06/11/21 06/25/21 16:35 13:32 Wound Center Nurse 2 #1 LLE lateral -Time 16:37 13:33 -Correct Patient Yes Yes -Correct Side, Site, Position Yes Yes -Correct Procedure Yes Yes -Procedure Performed Yes Yes -Type of Procedure Debridement Debridement -Clinical Debridement Subcutaneous Epidermis / Dermis -Tissue Removed Subcutaneous Subcutaneous -Post Debridement (cm) - Length 25.1 8.2 -Post Debridement (cm) - Width 30 7.6 -Post Debridement (cm) - Depth 0.1 0.1 -Total Square (Post) (cm) 753.0 62.32 -Area of Debridement (cm) - Length 25.1 8.2 -Area of Debridement (cm) - Width 30 7.6 -Total Square (Area) (cm) 753.0 62.32 -Tunneling No No -Undermining/Tunneling No No -Circular Undermining No No -Wound/Ulcer Outcome Not Healed Not Healed -Ulcer Cleansing Wound Cleanser Rinsed/ Irrigated with Saline -Foul Odor after Cleansing No No -Bioengineered Tissue No No -Bleeding Controlled with Pressure Pressure -Offloading No No -Treatment Response Procedure Procedure Tolerated Well Tolerated Well -Debridement - Open, 1st 20sq cm Yes -Debridement, Open, ea addt'l 20sq cm 3 or part thereof -Debridement - Subq, 1st 20sq cm Yes Yes -Debridement, SubQ, ea addt'l 20sq cm 11 or part thereof Pain Scale: 0-10 Numeric Is Patient Pain Free? Yes Yes - Nurse 3 - General Ulcer D/C NN Start: 06/11/21 16:11 Freq: Status: Active Protocol: Activity Type Activity Date Activity User E-Sign Co-Sign Detail Recorded Client Recorded Date Recorded By Document 06/11/21 16:51 [place] [id number] 06/11/21 16:54 [place] Document 06/25/21 14:02 RB [id number] 06/25/21 14:03 RB 06/11/21 06/25/21 16:51 14:02 Wound Care Nurse 3 #1 LLE lateral -Ulcer Cleansing Rinsed/ Rinsed/ Irrigated with Irrigated with Saline Saline -Foul Odor after Cleansing No -Primary Dressing Applied C Hydrogel ($) NonAdherent Contact Layer -Other Dressing absorbant dressing pad kerlix , cotton liner candelario -Primary Dressing Covered/Secured with Dry Gauze & Roll Gauze, Secured with Tape -Other Covering adaptic left leg -Lotion applied to leg before No compression wrap -Compression Wrap Candelario Wrap WC - Visit Discharge Discharge Condition Stable Stable Ambulatory Status Wheelchair Wheelchair Transportation Private Auto Private Auto Medication Reconcilliation completed & No provided to patient/care provider Clinical Summary of Care Provided Yes Yes Assessment/Plan Assessment/Plan (1) Ulcer of left lower extremity with fat layer exposed: CODE(S): L97.922 - Non-pressure chronic ulcer of unspecified part of left lower leg with fat layer exposed (2) Localized edema: CODE(S): R60.0 - Localized edema (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 Debridement was performed today as noted in the clinical nursing panel. To wash leg every day with anti microbial soap and water. To gently dry with a clean towel. To continue with max absorption secondary dressing. We will put a hold on hydrogel and Adaptic to see if this reduces the amount of moisture and skin peeling. I recommend application of regular Adaptic as compared to Adaptic touch to allow moisture permeation. It is also okay to intermittently avoid Adaptic use to reduce maceration and fluid buildup in general. Her edema significantly fluctuates and therefore her dressing will need to fluctuate as needed. It is also okay to allow to rest with no dressings for 1 to 2 hours during the dressing change process. She has done well with this plan so far. Her pain is significantly reduced since her arterial intervention and recently her leg surgery. To follow-up with Dr. Morel as advised. It is noted she had angioplasty to the aorta and iliac level to reperfusion the left lower limb on 02-12-2021. Additional distal stenting also be considered. To follow-up as advised. It is noted she recently follow-up with Dr. Morel and per the patient he recommends additional venous intervention to help reduce swelling. The notes will be requested. She was reassured no local signs of infection or purulence are noted today. She is under the management of infectious disease physician for recurrent leg infections and also for C. difficile management which is appreciated. She completed a course of iv cefepime cover deeper infection for duration of 6 weeks with a stop date of 03/24/2021. 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 She had a recent flareup and has been in contact with infectious disease specialist, Dr. De La Cruz which her diarrhea has now resolved. She was reassured no local signs of infection are noted today. We discussed her new onset dermatitis complaints and I offered her a punch biopsy which would involve 2 mm size instrumentation. She wants to think about this. We reviewed the benefits and risks. This would help us work-up the differential diagnoses of allergic reaction type inflammation versus fungal versus autoimmune versus other. I advised her to maintain better control her edema with intermittent elevation and muscular contraction of the involved post polio syndrome leg. I recommend Tubigrip application and she relates she only able to tolerate this part of the time. It is okay for her to wear a properly fitted and protected shoe and to weight-bear as tolerated to the left lower extremity. She is advised wearing Candelario wrap at least. She will also follow-up with the primary care physician to see if Lasix is appropriate to restart. I encouraged her to proceed forward. Her most recent x-rays are negative for acute osseous changes. She does not have a diagnosis of osteomyelitis nor any other known qualifying diagnosis to proceed with hyperbaric oxygen therapy. To proceed with a proper control diet and nutrition supplementation to optimize healing. I answered all of her questions and explained the etiology of ulcer causes and the comprehensive wound healing plan. It is noted she is reducing her salt in her diet. Note: [employer] speech recognition nocturnist software was used to create portions of this document. Sound-alike and misspelled words, as well as other nocturnist errors may be contained in the documentation. The medical decision making level is moderate. There is noted moderate risk of morbidity after considering this treatment plan and diagnostic data. Considerations were given to prescription management, decisions regarding surgical options, or social determinants of health. The problems addressed require a moderate decision making level which includes one or more chronic illnesses (w/ exacerbation, progression, or side effects), two or more stable chronic illnesses, one undiagnosed new problem w/ uncertain prognosis, one acute illness with systemic symptoms, or one acute complicated injury.
== END 2021-07-08 23:59 ==
LOC: WC 13:00
PROVIDERS: PCP Family Medicine; Referring Provider Podiatrist; Visit Provider Podiatrist
DX: L97.922 Non-pressure chronic ulcer of unspecified part of left lower leg with fat layer exposed (principal); I87.2 Venous insufficiency (chronic) (peripheral); M79.605 Pain in left leg; R60.0 Localized edema; A04.71 Enterocolitis due to Clostridium difficile, recurrent; G14 Postpolio syndrome; Z22.9 Carrier of infectious disease, unspecified; E66.9 Obesity, unspecified; Z68.43 Body mass index [BMI] 50.0-59.9, adult; Z79.02 Long term (current) use of antithrombotics/antiplatelets; Z79.890 Hormone replacement therapy; Z79.899 Other long term (current) drug therapy
CPT/HCPCS: 11042; 11045; 97597; 97598

== ENCOUNTER → 2021-07-23 13:09 | Outpatient (CLI) | payer MEDICARE, OTHER, SELFPAY ==
--- NOTE | 2021-07-23 13:12 | VDLE_ITS ---
Reason For Study: S/P Venoseal ablaation Procedure LEFT This is a venous duplex using B-mode, color CFV is compressible, spontaneous, phasic, flow and spectral Doppler. competent, and demonstrates normal Exam performed in department. augmentation. Unable to scan below knee due to open FV is compressible, spontaneous, phasic, wounds. competent and demonstrates normal augmentation. POP V is compressible, spontaneous, phasic, competent and demonstrates normal augmentation. T/P Trunk is compressible. GSV is occluded near SFJ S/P venoseal ablation. Unable to image below the knee due to open wounds that are bandaged. VL/Venous Duplex US, Unilateral Interpretation Summary Left leg with no DVT noted. Successful ablation greater saphenous vein. Ordering Physician: Bryan Morel Referring Physician: Boo Cotton Performed By: Mary Lam, YAZAN, RVT
== END ==
PROVIDERS: PCP Family Medicine; Referring Provider Surgery Vascular Surgery; Visit Provider Surgery Vascular Surgery
DX: M79.89 Other specified soft tissue disorders (principal); M79.605 Pain in left leg; I83.892 Varicose veins of left lower extremity with other complications; I77.1 Stricture of artery; Z87.891 Personal history of nicotine dependence; F41.9 Anxiety disorder, unspecified; E78.00 Pure hypercholesterolemia, unspecified; E07.9 Disorder of thyroid, unspecified; D89.89 Other specified disorders involving the immune mechanism, not elsewhere classified; I70.242 Atherosclerosis of native arteries of left leg with ulceration of calf; I87.2 Venous insufficiency (chronic) (peripheral); L97.822 Non-pressure chronic ulcer of other part of left lower leg with fat layer exposed; G14 Postpolio syndrome; L85.3 Xerosis cutis; Z79.01 Long term (current) use of anticoagulants; Z79.02 Long term (current) use of antithrombotics/antiplatelets
CPT/HCPCS: 11042; 11045; 29445; 93971

== ENCOUNTER 2021-08-06 14:45 | Outpatient (RCR) | payer MEDICARE, OTHER, SELFPAY ==
[2021-07-09 00:22] VITALS: BP 140/47; PULSE 78; RESP 18; TEMP 36.8; BMI 59.4
[2021-07-09 15:46] VITALS: BP 159/66; PULSE 113; RESP 18; TEMP 37.1; BMI 59.4
--- NOTE | 2021-07-09 17:31 | PN.PCM_ITS ---
History of Present Illness Date of Service: 07/09/21 Chief Complaint: Left leg ulcer History of Wound: This 70-year-old female with multiple comorbidities was seen for follow up of left ulcer on the leg. She has had prior application of advanced wound healing products in clinic and also in the operating room including TheraSkin and amnio fill. She denies fever, chill, nausea, vomiting. She denies redness or odor. She also previously had vascular intervention (arterial) and recently followed up with her vascular surgeon who will consider additional potential venous intervention. This procedure with the veins is scheduled for next wednesday. Her pCP also recommended lasix and she states she only took this one time. She relates she only takes it when her hand is swollen and has not been considering her leg swelling in this thought process. She asks if medi honey is appropriate. Progress of Wound: stable Objective Data Objective Data Vital Signs: Vital Signs Temp Pulse Resp BP 98.7 F 113 H 18 159/66 H 07/09/21 15:46 07/09/21 15:46 07/09/21 15:46 07/09/21 15:46 Oxygen Flow Rate (L/min) 2 Oxygen Delivery Method Room Air Weight: 63.503 kg Body Mass Index (BMI) 59.4 Physical Exam Const alert and oriented x3 General Appearance: cooperative HEENT normocephalic Extremity Extremity Narrative: No calf tenderness Diminished pulses Muscle wasting noted edema to limb is mild General Extremity: edema; Negative for cyanosis Skin Skin Narrative: Now the ulcer is completely circumferential around the leg, there are imroved skin islands that are notable and distal epithelialization. the initial ulcers are no longer deep and appear healthy and granular. There is no purulence, no erythema, no streaking, no odor appreciated today. There is no bogginess or fluctuance on palpation. There is no sb odor appreciated. adjacent inflammed skin has resolved. General Skin Exam: Negative for erythema Neuro Neuro Narrative: hypersensitivity to light touch Psych cooperative and affect normal Debridement Note Debridement Note Wound debrided: left leg Wound Grade/Stage: Type of Debridement: Excisional debridement Anesthesia Used: 4% Lidocaine Solution Depth: in the subcutaneous layer Percentage of wound debrided: 100 Instrument Used: #15 blade Tissue Removed: fibrous, devitalized subcutaneous, biofilm, slough Severity: Fat Layer Exposed Amount of bleeding with debridement: Mild Bleeding Controlled with: Pressure Patient tolerated procedure: Patient tolerated procedure well Post-Debridement Measurements and Additional Note: Post-Debridement Measurements/Treatment - Nurse 1 - General Ulcer Assessment Start: 07/09/21 15:45 Freq: Status: Active Protocol: AYSHA Activity Type Activity Date Activity User E-Sign Co-Sign Detail Recorded Client Recorded Date Recorded By Document 07/09/21 15:46 [facility] [id number] 07/09/21 15:57 [facility] 07/09/21 15:46 WC - Today's Visit Information Type of service Follow-up Visit (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 ) Arrival Mode Wheelchair Transfer Assistance None Accompanied by daughter Patient Identification Verified (Name & Yes ) Patient Requires Transmission-Based No Precautions Height and Weight Body Mass Index (BMI) 59.4 BMI Classification Obese Vital Signs Temperature (97.8 F-99.1 F) 98.7 F Temperature Source Temporal Pulse Rate (60-100) 113 H Pulse Location Monitor Respiratory Rate (12-18) 18 Respiratory rate source Observation Oxygen Delivery Method Room Air Blood Pressure (90/60-120/80) 159/66 H Blood Pressure Mean (mm Hg) 97 Source Monitor Position Sitting Blood Pressure Location Right Arm History Since Last Visit- (Skip if this is Patient's initial visit) Have you changed medications since your No last visit? Any new allergies or adverse reactions No Had a fall/change in ADL's that may No increase risk of falls Signs or symptoms of abuse and/or No neglect since last visit Have you been in the hospital since your No last visit? Has dressing in place as prescribed Yes Has compression in place as prescribed Yes Has offloadiing in place as prescribed N/A Experienced any changes in pain level or No management Left Footwear Regular Shoe Right Footwear Regular Shoe [facility] Nurse 1 - General Ulcer Measurement Start: 07/09/21 15:45 Freq: Status: Active Protocol: Activity Type Activity Date Activity User E-Sign Co-Sign Detail Recorded Client Recorded Date Recorded By Document 07/09/21 15:46 [facility] [id number] 07/09/21 15:57 [facility] 07/09/21 15:46 Wound Center Nurse 1 #1 LLE lateral -Combined with other wound No -Current Size (cm) - Length 3.7 -Current Size (cm) - Width 3.1 -Current Size (cm) - Depth 0.2 -Total Square Cm 11.47 -Photo Taken No -Epithelialization None Present -Tunneling No -Undermining/Tunneling No -Circular Undermining No -Exudate Amt Large -Exudate Type Serosanguineous -Wound Margin Distinct, Outline Attached -Granulation Amt Large (67-100%) -Granulation Quality Red -Slough/Fibrin Yes -Necrosis Amt Large (67-100%) -Necrotic Tissue Type Adherent Slough -Texture (Susana-wound Skin Appearance) Assessed, Excoriation, Scarring -Moisture (Susana-wound Skin Appearance) Assessed, Maceration, Weeping,Dry/ Scaly -Color (Susana-wound Skin Appearance) Assessed, Erythema -Temperature (Susana-wound Skin No Abnormality Appearance) (Pt Warm) -Tenderness on Palpation (Susana-wound Yes Skin Appearance) -Ulcer Cleansing soapy water -Foul Odor after Cleansing No -Anesthetic Used 4% Lidocaine Solution TOMÁS - Nurse 2 - General Ulcer CM Notes Start: 07/09/21 15:45 Freq: Status: Active Protocol: Activity Type Activity Date Activity User E-Sign Co-Sign Detail Recorded Client Recorded Date Recorded By Document 07/09/21 16:02 FELISHA [id number] 07/09/21 16:23 FELISHA 07/09/21 16:02 Wound Center Nurse 2 -Time 16:02 -Correct Patient Yes -Correct Side, Site, Position Yes -Correct Procedure Yes -Procedure Performed Yes -Type of Procedure Debridement -Clinical Debridement Subcutaneous -Tissue Removed Subcutaneous -Post Debridement (cm) - Length 5 -Post Debridement (cm) - Width 7 -Post Debridement (cm) - Depth 0.1 -Total Square (Post) (cm) 35 -Area of Debridement (cm) - Length 5 -Area of Debridement (cm) - Width 7 -Total Square (Area) (cm) 35 -Tunneling No -Undermining/Tunneling No -Circular Undermining No -Wound/Ulcer Outcome Not Healed -Ulcer Cleansing Rinsed/ Irrigated with Saline -Foul Odor after Cleansing No -Bioengineered Tissue No -Bleeding Controlled with Pressure -Offloading No -Treatment Response Procedure Tolerated Well -Debridement - Subq, 1st 20sq cm Yes -Debridement, SubQ, ea addt'l 20sq cm 1 or part thereof Pain Scale: 0-10 Numeric Is Patient Pain Free? Yes TOMÁS - Nurse 3 - General Ulcer D/C NN Start: 07/09/21 15:45 Freq: Status: Active Protocol: Activity Type Activity Date Activity User E-Sign Co-Sign Detail Recorded Client Recorded Date Recorded By Document 07/09/21 16:24 YAYO [id number] 07/09/21 16:26 YAYO 07/09/21 16:24 Wound Care Nurse 3 #1 LLE lateral -Ulcer Cleansing Rinsed/ Irrigated with Saline -Foul Odor after Cleansing No -Negative Pressure Wound Therapy N/A -Primary Dressing Applied NonAdherent Contact Layer -Other Dressing ABD - super absorber -Primary Dressing Covered/Secured with Dry Gauze & Roll Gauze, Secured with Tape Left -Lotion applied to leg before No compression wrap -Compression Wrap Candelario Wrap WC - Visit Discharge Discharge Condition Stable Ambulatory Status Wheelchair Transportation Private Auto Medication Reconcilliation completed & Yes provided to patient/care provider Clinical Summary of Care Provided Yes Assessment/Plan Assessment/Plan (1) Ulcer of left lower extremity with fat layer exposed: CODE(S): L97.922 - Non-pressure chronic ulcer of unspecified part of left lower leg with fat layer exposed (2) Localized edema: CODE(S): R60.0 - Localized edema (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 Debridement was performed today as noted in the clinical nursing panel. To wash leg every day with anti microbial soap and water. To gently dry with a clean towel. To continue with max absorption secondary dressing (ordered today). To avoid placing adaptic over epithelialized skin. I do not recommend medihoney. I recommend application of regular Adaptic as compared to Adaptic touch to allow moisture permeation. Her edema significantly fluctuates and therefore her dressing will need to fluctuate as needed. It is also okay to allow to rest with no dressings for 1 to 2 hours during the dressing change process. She has done well with this plan so far. The patient is going to consider if she requires home health assistance at this time and will consider her options. Her pain is significantly reduced since her arterial intervention and recently her leg surgery. To follow-up with Dr. Morel as advised. It is noted she had angioplasty to the aorta and iliac level to reperfusion the left lower limb on 02-12-2021. Additional distal stenting also be considered. To follow-up as advised. It is noted she recently follow-up with Dr. Morel and per the patient he recommends additional venous intervention to help reduce swelling. She is schedule for venous intervention next wed; to proceed as scheduled. She is concerned she will not be able to wear the advised compression garment after the procedure and I strongly encouraged her to be compliant. She was reassured no local signs of infection or purulence are noted today. She is under the management of infectious disease physician for recurrent leg infections and also for C. difficile management which is appreciated. She completed a course of iv cefepime cover deeper infection for duration of 6 weeks with a stop date of 03/24/2021. 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 She had a recent flareup and has been in contact with infectious disease specialist, Dr. De La Cruz which her diarrhea has now resolved. She was reassured no local signs of infection are noted today. Her local dermatitis is not noted today and I no longer recommend a punch biopsy at this time. I advised her to maintain better control her edema with intermittent elevation and muscular contraction of the involved post polio syndrome leg. I recommend Tubigrip application and she relates she only able to tolerate this part of the time. It is okay for her to wear a properly fitted and protected shoe and to weight-bear as tolerated to the left lower extremity. She is advised wearing Candelario wrap at least. She was prescribed lasix and is currently not taking this as recommended. I explained the purpose of the medication and advised compliance. Her most recent x-rays are negative for acute osseous changes. She does not have a diagnosis of osteomyelitis nor any other known qualifying diagnosis to proceed with hyperbaric oxygen therapy. To proceed with a proper control diet and nutrition supplementation to optimize healing. I answered all of her questions and explained the etiology of ulcer causes and the comprehensive wound healing plan. It is noted she is reducing her salt in her diet. I have offered her a second opinion with an additional wound care centerl provider. There are still several parts of her treatment plan that have not been implemented and compliance was discussed. It is also noted she is scheduled to undergo additional vascular procedure in the upcoming week. She defers a second opinion and would like to proceed forward with her current plan. To return to the wound healing center in 1 week. Note: Method speech recognition supplier specialist software was used to create portions of this document. Sound-alike and misspelled words, as well as other supplier specialist errors may be contained in the documentation. 20 minutes was spent on this encounter. This included face to face and non face to face care including preparing for the visit, reviewing the history, performing the exam, counseling and providing education to the patient, family, or caregiver, ordering medications/test/ procedures if indicated as documented, communicating with other healthcare providers, documenting information in the medical record, interpreting / sharing this information when indicated as documented, and care coordination.
[2021-07-23 15:06] VITALS: BP 101/54; PULSE 115; RESP 16; TEMP 36.1; BMI 59.4
--- NOTE | 2021-07-23 16:08 | PN.PCM_ITS ---
History of Present Illness Date of Service: 07/23/21 Chief Complaint: Left leg ulcer History of Wound: This 70-year-old female with multiple comorbidities was seen for follow up of left ulcer on the leg. She has had prior application of advanced wound healing products in clinic and also in the operating room including TheraSkin and amnio fill. She denies fever, chill, nausea, vomiting. She denies redness or odor. She also previously had vascular intervention (arterial) and recently followed up with her vascular surgeon who will consider additional potential venous intervention. She continues to take Lasix as advised on a more consistent basis. She also had recent venous intervention to the left lower extremity this past week with Dr. Morel. She is amendable to proceed forward with ultrasonic debridement today in clinic. Progress of Wound: stable Objective Data Objective Data Vital Signs: Vital Signs Temp Pulse Resp BP 97 F L 115 H 16 101/54 L 07/23/21 15:06 07/23/21 15:06 07/23/21 15:06 07/23/21 15:06 Oxygen Flow Rate (L/min) 2 Oxygen Delivery Method Room Air Weight: 63.503 kg Body Mass Index (BMI) 59.4 Physical Exam Extremity Extremity Narrative: No calf tenderness Diminished pulses Muscle wasting noted edema to limb is mild Skin Skin Narrative: Now the ulcer is completely circumferential around the leg, there are imroved skin islands that are notable and distal epithelialization. th e initial ulcers are no longer deep and appear healthy and granular. There is no purulence, no erythema, no streaking, no odor appreciated today. There is no bogginess or fluctuance on palpation. There is no sb odor appreciated. Neuro Neuro Narrative: hypersensitivity to light touch Debridement Note Debridement Note Wound debrided: Left leg Wound Grade/Stage: Type of Debridement: Excisional debridement Anesthesia Used: 4% Lidocaine Solution Depth: in the subcutaneous layer Percentage of wound debrided: 100 Instrument Used: Forceps and - (misonix ultrasound water debridement ) Tissue Removed: fibrous, devitalized subcutaneous, biofilm, slough Severity: Fat Layer Exposed Amount of bleeding with debridement: Mild Bleeding Controlled with: Pressure Patient tolerated procedure: Patient tolerated procedure well Post-Debridement Measurements and Additional Note: Post-Debridement Measurements/Treatment TOMÁS - Nurse 1 - General Ulcer Assessment Start: 07/09/21 15:45 Freq: Status: Active Protocol: WC.LOWEXT Activity Type Activity Date Activity User E-Sign Co-Sign Detail Recorded Client Recorded Date Recorded By Document 07/09/21 15:46 [facility] [id number] 07/09/21 15:57 [facility] Document 07/23/21 15:06 [facility] [id number] 07/23/21 15:17 [facility] 07/09/21 07/23/21 15:46 15:06 - Today's Visit Information Type of service Follow-up Visit Follow-up Visit (Physician/BRAZING MACHINE SETTER (Physician/BRAZING MACHINE SETTER ) ) Arrival Mode Wheelchair Wheelchair Transfer Assistance None None Accompanied by daughter daughter Patient Identification Verified (Name & Yes Yes ) Patient Requires Transmission-Based No Precautions Height and Weight Body Mass Index (BMI) 59.4 59.4 BMI Classification Obese Obese Vital Signs Temperature (97.8 F-99.1 F) 98.7 F 97 F L Temperature Source Temporal Temporal Pulse Rate (60-100) 113 H 115 H Pulse Location Monitor Monitor Respiratory Rate (12-18) 18 16 Respiratory rate source Observation Observation Oxygen Delivery Method Room Air Room Air Blood Pressure (90/60-120/80) 159/66 H 101/54 L Blood Pressure Mean (mm Hg) 97 69 Source Monitor Monitor Position Sitting Sitting Blood Pressure Location Right Arm Left Arm History Since Last Visit- (Skip if this is Patient's initial visit) Have you changed medications since your No No last visit? Any new allergies or adverse reactions No No Had a fall/change in ADL's that may No No increase risk of falls Signs or symptoms of abuse and/or No No neglect since last visit Have you been in the hospital since your No No last visit? Has dressing in place as prescribed Yes No Has compression in place as prescribed Yes Yes Has offloadiing in place as prescribed N/A N/A Experienced any changes in pain level or No No management Left Footwear Regular Shoe Regular Shoe Right Footwear Regular Shoe Regular Shoe Pain Scale: 0-10 Numeric Is Patient Pain Free? Yes - Nurse 1 - General Ulcer Measurement Start: 07/09/21 15:45 Freq: Status: Active Protocol: Activity Type Activity Date Activity User E-Sign Co-Sign Detail Recorded Client Recorded Date Recorded By Document 07/09/21 15:46 [facility] [id number] 07/09/21 15:57 [facility] Document 07/23/21 15:06 [facility] [id number] 07/23/21 15:17 [facility] 07/09/21 07/23/21 15:46 15:06 Wound Center Nurse 1 #1 LLE lateral -Combined with other wound No No -Current Size (cm) - Length 3.7 20.5 -Current Size (cm) - Width 3.1 27.5 -Current Size (cm) - Depth 0.2 0.2 -Total Square Cm 11.47 563.75 -Date of Last Picture (Recall this 07/23/21 field) -Photo Taken No Yes -Epithelialization None Present None Present -Tunneling No No -Undermining/Tunneling No No -Circular Undermining No No -Exudate Amt Large Large -Exudate Type Serosanguineous Serosanguineous -Wound Margin Distinct, Distinct, Outline Outline Attached Attached -Granulation Amt Large (67-100%) Medium (34-66%) -Granulation Quality Red Red -Slough/Fibrin Yes Yes -Necrosis Amt Large (67-100%) Medium (34-66%) -Necrotic Tissue Type Adherent Slough Adherent Slough -Texture (Susana-wound Skin Appearance) Assessed, Assessed, Excoriation, Scarring Scarring -Moisture (Susana-wound Skin Appearance) Assessed, Assessed, Maceration, Maceration,Dry/ Weeping,Dry/ Scaly Scaly -Color (Susana-wound Skin Appearance) Assessed, Assessed, Erythema Erythema,Palor -Temperature (Susana-wound Skin No Abnormality No Abnormality Appearance) (Pt Warm) (Pt Warm) -Tenderness on Palpation (Suasna-wound Yes Yes Skin Appearance) -Ulcer Cleansing soapy water soapy water -Foul Odor after Cleansing No No -Anesthetic Used 4% Lidocaine 5% Lidocaine Solution Gel Lower Limb Edema Present Yes Left Calf (cm) 33 Left Ankle (cm) 21.5 WC - Nurse 2 - General Ulcer CM Notes Start: 07/09/21 15:45 Freq: Status: Active Protocol: Activity Type Activity Date Activity User E-Sign Co-Sign Detail Recorded Client Recorded Date Recorded By Document 07/09/21 16:02 JF [id number] 07/09/21 16:23 JF Document 07/23/21 15:28 JF [id number] 07/23/21 16:02 07/09/21 07/23/21 16:02 15:28 Wound Center Nurse 2 #1 LLE lateral -Time 16:02 15:30 -Correct Patient Yes Yes -Correct Side, Site, Position Yes Yes -Correct Procedure Yes Yes -Procedure Performed Yes Yes -Type of Procedure Debridement Debridement -Clinical Debridement Subcutaneous Subcutaneous -Tissue Removed Subcutaneous Subcutaneous -Post Debridement (cm) - Length 5 20.5 -Post Debridement (cm) - Width 7 27.5 -Post Debridement (cm) - Depth 0.1 0.2 -Total Square (Post) (cm) 35 563.75 -Area of Debridement (cm) - Length 5 20.5 -Area of Debridement (cm) - Width 7 27.5 -Total Square (Area) (cm) 35 563.75 -Tunneling No No -Undermining/Tunneling No No -Circular Undermining No No -Wound/Ulcer Outcome Not Healed Not Healed -Ulcer Cleansing Rinsed/ Rinsed/ Irrigated with Irrigated with Saline Saline -Foul Odor after Cleansing No No -Bioengineered Tissue No No -Bleeding Controlled with Pressure Pressure -Offloading No -Type of Offloading Total Contact Cast (TCC) - Left ($) -Treatment Response Procedure Procedure Tolerated Well Tolerated Well -Debridement - Subq, 1st 20sq cm Yes Yes -Debridement, SubQ, ea addt'l 20sq cm 1 11 or part thereof Pain Scale: 0-10 Numeric Is Patient Pain Free? Yes - Nurse 3 - General Ulcer D/C NN Start: 07/09/21 15:45 Freq: Status: Active Protocol: Activity Type Activity Date Activity User E-Sign Co-Sign Detail Recorded Client Recorded Date Recorded By Document 07/09/21 16:24 [place] [id number] 07/09/21 16:26 [place] 07/09/21 16:24 Wound Care Nurse 3 -Ulcer Cleansing Rinsed/ Irrigated with Saline -Foul Odor after Cleansing No -Negative Pressure Wound Therapy N/A -Primary Dressing Applied NonAdherent Contact Layer -Other Dressing ABD - super absorber -Primary Dressing Covered/Secured with Dry Gauze & Roll Gauze, Secured with Tape Left -Lotion applied to leg before No compression wrap -Compression Wrap Candelario Wrap WC - Visit Discharge Discharge Condition Stable Ambulatory Status Wheelchair Transportation Private Auto Medication Reconcilliation completed & Yes provided to patient/care provider Clinical Summary of Care Provided Yes Assessment/Plan Assessment/Plan (1) Ulcer of left lower extremity with fat layer exposed: CODE(S): L97.922 - Non-pressure chronic ulcer of unspecified part of left lower leg with fat layer exposed (2) Localized edema: CODE(S): R60.0 - Localized edema (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 Debridement was performed today as noted in the clinical nursing panel with misonix ultrasound water debridement. To wash leg every day with anti microbial soap and water. To gently dry with a clean towel. To continue with max absorption secondary dressing (ordered today). To avoid placing adaptic over epithelialized skin. I recommend application of regular Adaptic as compared to Adaptic touch to allow moisture permeation. Her edema significantly fluctuates and therefore her dressing will need to fluctuate as needed. It is also okay to allow to rest with no dressings for 1 to 2 hours during the dressing change process. She has done well with this plan so far. The patient is going to consider if she requires home health assistance at this time and will consider her options. Her pain is significantly reduced since her arterial intervention and recently her leg surgery. To follow-up with Dr. Morel as advised. It is noted she had angioplasty to the aorta and iliac level to reperfusion the left lower limb on 02-12-2021. Additional distal stenting also be considered. To follow-up as advised. It is noted she recently follow-up with Dr. Morel and per the patient he recommends additional venous intervention to help reduce swelling. She recently had this procedure done and will follow up with Dr. Morel scheduled. She is strongly encouraged to continue with compression therapy as advised by her vascular surgeon. She was reassured no local signs of infection or purulence are noted today. She is under the management of infectious disease physician for recurrent leg infections and also for C. difficile management which is appreciated. She completed a course of iv cefepime cover deeper infection for duration of 6 weeks with a stop date of 03/24/2021. 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 She had a recent flareup and has been in contact with infectious disease specialist, Dr. De La Cruz which her diarrhea has now resolved. She was reassured no local signs of infection are noted today. I advised her to maintain better control her edema with intermittent elevation and muscular contraction of the involved post polio syndrome leg. I recommend Tubigrip application and she relates she only able to tolerate this part of the time. It is okay for her to wear a properly fitted and protected shoe and to weight-bear as tolerated to the left lower extremity. She is advised wearing Candelario wrap at least. She was prescribed lasix and is currently not taking this as recommended. I explained the purpose of the medication and advised compliance. Her most recent x-rays are negative for acute osseous changes. She does not have a diagnosis of osteomyelitis nor any other known qualifying diagnosis to proceed with hyperbaric oxygen therapy. To proceed with a proper control diet and nutrition supplementation to optimize healing. I answered all of her questions and explained the etiology of ulcer causes and the comprehensive wound healing plan. It is noted she is reducing her salt in her diet. I have offered her a second opinion with an additional wound care centerl provider. There are still several parts of her treatment plan that have not been implemented and compliance was discussed. It is also noted she is scheduled to undergo additional vascular procedure in the upcoming week. She defers a second opinion and would like to proceed forward with her current plan. To return to the wound healing center in 1 week. Note: [employer] speech recognition terrazzo helper software was used to create portions of this document. Sound-alike and misspelled words, as well as other terrazzo helper errors may be contained in the documentation.
[2021-08-06 15:11] VITALS: BP 104/48; PULSE 97; RESP 16; TEMP 36.4; BMI 59.4
--- NOTE | 2021-08-06 20:04 | PCM.WC.PN ---
History of Present Illness Date of Service: 08/06/21 Chief Complaint: Left leg ulcer History of Wound: This 70-year-old female with multiple comorbidities was seen for follow up of left ulcer on the leg. She has had prior application of advanced wound healing products in clinic and also in the operating room including TheraSkin and amnio fill. She denies fever, chill, nausea, vomiting. She denies redness or odor. She also previously had vascular intervention (arterial) and recently followed up with her vascular surgeon who will consider additional potential venous intervention. She continues to take Lasix as advised on a more consistent basis. She also had recent venous intervention to the left lower extremity. She had an updated venous ultrasound and will follow up with Dr. Morel mid August.She had a follow-up ultrasound to check on her previous venous intervention and will follow up with Dr. Morel to review this mid-August. She refuses debridement today. She is with her daughter. Progress of Wound: stable Objective Data Objective Data Vital Signs: Vital Signs Temp Pulse Resp BP 97.5 F L 97 16 104/48 L 08/06/21 15:11 08/06/21 15:11 08/06/21 15:11 08/06/21 15:11 Oxygen Flow Rate (L/min) 2 Oxygen Delivery Method Room Air Weight: 63.503 kg Body Mass Index (BMI) 59.4 Physical Exam Extremity Extremity Narrative: No calf tenderness Diminished pulses Muscle wasting noted edema to limb is mild Skin Skin Narrative: Now the ulcer is completely circumferential around the leg, there are improved skin islands that are notable and distal epithelialization. the initial ulcers are no longer deep and appear healthy and granular. There is no purulence, no erythema, no streaking, no odor appreciated today. There is no bogginess or fluctuance on palpation. Decreased periulcer inflammation is significant Neuro Neuro Narrative: hypersensitivity to light touch Debridement Note Debridement Note Post-Debridement Measurements and Additional Note: Post-Debridement Measurements/Treatment - Nurse 1 - General Ulcer Assessment Start: 07/09/21 15:45 Freq: Status: Active Protocol: AYSHA Activity Type Activity Date Activity User E-Sign Co-Sign Detail Recorded Client Recorded Date Recorded By Document 07/09/21 15:46 [facility] [id number] 07/09/21 15:57 BM Document 07/23/21 15:06 [facility] [id number] 07/23/21 15:17 BM Document 08/06/21 15:11 [facility] [id number] 08/06/21 15:26 [facility] 07/09/21 07/23/21 08/06/21 15:46 15:06 15:11 - Today's Visit Information Type of service Follow-up Visit Follow-up Visit Follow-up Visit (Physician/PATTERN GRADER (Physician/PATTERN GRADER (Physician/PATTERN GRADER ) ) ) Arrival Mode Wheelchair Wheelchair Wheelchair Transfer Assistance None None None Accompanied by daughter daughter DILSHAD Patient Identification Verified (Name & Yes Yes Yes ) Patient Requires Transmission-Based No No Precautions Height and Weight Body Mass Index (BMI) 59.4 59.4 59.4 BMI Classification Obese Obese Obese Vital Signs Temperature (97.8 F-99.1 F) 98.7 F 97 F L 97.5 F L Temperature Source Temporal Temporal Temporal Pulse Rate (60-100) 113 H 115 H 97 Pulse Location Monitor Monitor Monitor Respiratory Rate (12-18) 18 16 16 Respiratory rate source Observation Observation Observation Oxygen Delivery Method Room Air Room Air Room Air Blood Pressure (90/60-120/80) 159/66 H 101/54 L 104/48 L Blood Pressure Mean (mm Hg) 97 69 66 Source Monitor Monitor Monitor Position Sitting Sitting Sitting Blood Pressure Location Right Arm Left Arm Right Arm History Since Last Visit- (Skip if this is Patient's initial visit) Have you changed medications since your No No No last visit? Any new allergies or adverse reactions No No No Had a fall/change in ADL's that may No No No increase risk of falls Signs or symptoms of abuse and/or No No No neglect since last visit Have you been in the hospital since your No No No last visit? Has dressing in place as prescribed Yes No Yes Has compression in place as prescribed Yes Yes Yes Has offloadiing in place as prescribed N/A N/A Yes Experienced any changes in pain level or No No No management Left Footwear Regular Shoe Regular Shoe Other Footwear (Comment) Right Footwear Regular Shoe Regular Shoe Other Footwear (Comment) Other Footwear SOCKS Pain Scale: 0-10 Numeric Is Patient Pain Free? Yes - Nurse 1 - General Ulcer Measurement Start: 07/09/21 15:45 Freq: Status: Active Protocol: Activity Type Activity Date Activity User E-Sign Co-Sign Detail Recorded Client Recorded Date Recorded By Document 07/09/21 15:46 [facility] [id number] 07/09/21 15:57 [facility] Document 07/23/21 15:06 [facility] [id number] 07/23/21 15:17 [facility] Document 08/06/21 15:11 [facility] [id number] 08/06/21 15:26 [facility] 07/09/21 07/23/21 08/06/21 15:46 15:06 15:11 Wound Center Nurse 1 #1 LLE lateral -Combined with other wound No No No -Current Size (cm) - Length 3.7 20.5 33 -Current Size (cm) - Width 3.1 27.5 34.3 -Current Size (cm) - Depth 0.2 0.2 0.2 -Total Square Cm 11.47 563.75 1131.9 -Date of Last Picture (Recall this 07/23/21 field) -Photo Taken No Yes No -Epithelialization None Present None Present Small 1-33% -Tunneling No No No -Undermining/Tunneling No No No -Circular Undermining No No No -Exudate Amt Large Large Large -Exudate Type Serosanguineous Serosanguineous Serosanguineous -Wound Margin Distinct, Distinct, Distinct, Outline Outline Outline Attached Attached Attached -Granulation Amt Large (67-100%) Medium (34-66%) Large (67-100%) -Granulation Quality Red Red Red -Slough/Fibrin Yes Yes Yes -Necrosis Amt Large (67-100%) Medium (34-66%) Small (1-33%) -Necrotic Tissue Type Adherent Slough Adherent Slough Adherent Slough -Texture (Susana-wound Skin Appearance) Assessed, Assessed, Assessed, Excoriation, Scarring Excoriation, Scarring Friable, Scarring -Moisture (Susana-wound Skin Appearance) Assessed, Assessed, Assessed, Maceration, Maceration,Dry/ Maceration, Weeping,Dry/ Scaly Weeping Scaly -Color (Susana-wound Skin Appearance) Assessed, Assessed, Assessed, Erythema Erythema,Palor Erythema,Palor -Temperature (Susana-wound Skin No Abnormality No Abnormality No Abnormality Appearance) (Pt Warm) (Pt Warm) (Pt Warm) -Tenderness on Palpation (Susana-wound Yes Yes Yes Skin Appearance) -Ulcer Cleansing soapy water soapy water Soap and Water -Foul Odor after Cleansing No No No -Anesthetic Used 4% Lidocaine 5% Lidocaine 4% Lidocaine Solution Gel Solution Lower Limb Edema Present Yes Left Calf (cm) 33 Left Ankle (cm) 21.5 WC - Nurse 2 - General Ulcer CM Notes Start: 07/09/21 15:45 Freq: Status: Active Protocol: Activity Type Activity Date Activity User E-Sign Co-Sign Detail Recorded Client Recorded Date Recorded By Document 07/09/21 16:02 JF [id number] 07/09/21 16:23 JF Document 07/23/21 15:28 JF [id number] 07/23/21 16:02 JF Edit Result 07/23/21 15:28 JF (1) [id number] 07/24/21 10:10 PL Document 08/06/21 15:39 JF [id number] 08/06/21 15:40 JF (1) #1 LLE lateral - Type of Offloading Total Contact Cast => (TCC) - Left ($) => 07/09/21 07/23/21 08/06/21 16:02 15:28 15:39 Wound Center Nurse 2 #1 LLE lateral -Time 16:02 15:30 -Correct Patient Yes Yes No -Correct Side, Site, Position Yes Yes No -Correct Procedure Yes Yes No -Procedure Performed Yes Yes No -Type of Procedure Debridement Debridement -Clinical Debridement Subcutaneous Subcutaneous -Tissue Removed Subcutaneous Subcutaneous -Post Debridement (cm) - Length 5 20.5 -Post Debridement (cm) - Width 7 27.5 -Post Debridement (cm) - Depth 0.1 0.2 -Total Square (Post) (cm) 35 563.75 -Area of Debridement (cm) - Length 5 20.5 -Area of Debridement (cm) - Width 7 27.5 -Total Square (Area) (cm) 35 563.75 -Tunneling No No -Undermining/Tunneling No No -Circular Undermining No No -Wound/Ulcer Outcome Not Healed Not Healed Not Healed -Ulcer Cleansing Rinsed/ Rinsed/ Irrigated with Irrigated with Saline Saline -Foul Odor after Cleansing No No -Bioengineered Tissue No No -Bleeding Controlled with Pressure Pressure -Offloading No -Treatment Response Procedure Procedure Tolerated Well Tolerated Well -Debridement - Subq, 1st 20sq cm Yes Yes -Debridement, SubQ, ea addt'l 20sq cm 1 11 or part thereof Pain Scale: 0-10 Numeric Is Patient Pain Free? Yes Yes WC - Nurse 3 - General Ulcer D/C NN Start: 07/09/21 15:45 Freq: Status: Active Protocol: Activity Type Activity Date Activity User E-Sign Co-Sign Detail Recorded Client Recorded Date Recorded By Document 07/09/21 16:24 [place] [id number] 07/09/21 16:26 AK Document 07/23/21 16:17 RB [id number] 07/23/21 16:18 RB Document 08/06/21 16:01 BM [id number] 08/06/21 16:02 BM 07/09/21 07/23/21 08/06/21 16:24 16:17 16:01 Wound Care Nurse 3 #1 LLE lateral -Ulcer Cleansing Rinsed/ Rinsed/ Rinsed/ Irrigated with Irrigated with Irrigated with Saline Saline Saline -Foul Odor after Cleansing No No -Negative Pressure Wound Therapy N/A -Primary Dressing Applied NonAdherent NonAdherent NonAdherent Contact Layer Contact Layer Contact Layer, Optilok 8x12 -Other Dressing ABD - super superabsorber/ absorber kerlix,cotton liner, candelario -Primary Dressing Covered/Secured with Dry Gauze & Dry Gauze,Dry Dry Gauze & Roll Gauze, Gauze & Roll Roll Gauze, Secured with Gauze,Secured Secured with Tape with Tape Tape,Other -Other Covering ABD -Optilok 8x12 2 Left -Lotion applied to leg before No compression wrap -Compression Wrap Candelario Wrap Candelario Wrap Treatment Response Procedure Tolerated Well Pain Scale: 0-10 Numeric Is Patient Pain Free? 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 She refuses debridement today would like to try this again at her follow-up visit. To wash leg every day with anti microbial soap and water. To gently dry with a clean towel. To continue with max absorption secondary dressing (ordered previously). To avoid placing adaptic over epithelialized skin. I recommend application of regular Adaptic as compared to Adaptic touch to allow moisture permeation. Her edema significantly fluctuates and therefore her dressing will need to fluctuate as needed. It is also okay to allow to rest with no dressings for 1 to 2 hours during the dressing change process. She has done well with this plan so far. The patient is going to consider if she requires home health assistance at this time and will consider her options. She has been changing the dressing every other day and was advised to bump it up to daily if she starts noticing extra moisture or any odor. Her pain is significantly irritated since her last visit but overall improved since her arterial intervention and recently her leg surgery. To follow-up with Dr. Morel as advised. It is noted she had angioplasty to the aorta and iliac level to reperfusion the left lower limb on 02-12-2021. Additional distal stenting also be considered. To follow-up as advised. It is noted she recently follow-up with Dr. Morel and per the patient he recommends additional venous intervention to help reduce swelling. She recently had this procedure done and will follow up with Dr. Morel scheduled. Her updated Doppler was performed this week. She is strongly encouraged to continue with compression therapy as advised by her vascular surgeon. She was reassured no local signs of infection or purulence are noted today. She is under the management of infectious disease physician for recurrent leg infections and also for C. difficile management which is appreciated. She completed a course of iv cefepime cover deeper infection for duration of 6 weeks with a stop date of 03/24/2021. 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 She had a recent flareup and has been in contact with infectious disease specialist, Dr. De La Cruz which her diarrhea has now resolved. She was reassured no local signs of infection are noted today. I advised her to maintain better control her edema with intermittent elevation and muscular contraction of the involved post polio syndrome leg. I recommend Tubigrip application and she relates she only able to tolerate this part of the time. It is okay for her to wear a properly fitted and protected shoe and to weight-bear as tolerated to the left lower extremity. She is advised wearing Candelario wrap at least. She was prescribed lasix and is currently not taking this as recommended. I explained the purpose of the medication and advised compliance. Her most recent x-rays are negative for acute osseous changes. She does not have a diagnosis of osteomyelitis nor any other known qualifying diagnosis to proceed with hyperbaric oxygen therapy. To proceed with a proper control diet and nutrition supplementation to optimize healing. I answered all of her questions and explained the etiology of ulcer causes and the comprehensive wound healing plan. It is noted she is reducing her salt in her diet. I have offered her a second opinion with an additional wound care center provider. There are still several parts of her treatment plan that have not been implemented and compliance was discussed. It is also noted she is scheduled to undergo additional vascular procedure in the upcoming week. She defers a second opinion and would like to proceed forward with her current plan. To return to the wound healing center in 2 weeks. If there is a conflict with her other doctor appointments I recommend she follows up in 1 week instead and advised against a 3-week follow-up because she is higher risk. Note: [employer] speech recognition property investor software was used to create portions of this document. Sound-alike and misspelled words, as well as other property investor errors may be contained in the documentation. The medical decision making level is low. There is noted low risk of morbidity after considering this treatment plan and diagnostic data. The problems addressed require a low medical decision making level which includes two or more minor problems, a stable chronic illness, or an acute uncomplicated illness or injury.
== END 2021-08-07 23:59 ==
LOC: WC 14:45
PROVIDERS: PCP Family Medicine; Referring Provider Podiatrist; Visit Provider Podiatrist
DX: L97.922 Non-pressure chronic ulcer of unspecified part of left lower leg with fat layer exposed (principal); I73.9 Peripheral vascular disease, unspecified; I87.2 Venous insufficiency (chronic) (peripheral); A04.71 Enterocolitis due to Clostridium difficile, recurrent; L85.3 Xerosis cutis; G14 Postpolio syndrome; R60.0 Localized edema; M79.605 Pain in left leg; E66.9 Obesity, unspecified; Z68.43 Body mass index [BMI] 50.0-59.9, adult; Z79.01 Long term (current) use of anticoagulants; Z79.02 Long term (current) use of antithrombotics/antiplatelets; Z79.890 Hormone replacement therapy; Z79.899 Other long term (current) drug therapy
CPT/HCPCS: 11042; 11045; 29445; 99213; G0463

== ENCOUNTER → 2021-08-27 13:06 | Outpatient (CLI) | payer MEDICARE, OTHER, SELFPAY | PROVIDERS: PCP Family Medicine; Referring Provider Surgery Vascular Surgery; Visit Provider Surgery Vascular Surgery | DX: Z00.00 Encounter for general adult medical examination without abnormal findings (principal) ==

== ENCOUNTER 2021-08-27 14:00 | Outpatient (RCR) | payer MEDICARE, OTHER, SELFPAY ==
[2021-08-08 00:16] VITALS: BP 104/48; PULSE 97; RESP 16; TEMP 36.4; BMI 59.4
[2021-08-20 13:36] VITALS: BP 134/63; PULSE 79; RESP 16; TEMP 35.9; BMI 59.4
--- NOTE | 2021-08-20 14:17 | PCM.WC.PN ---
History of Present Illness Date of Service: 08/20/21 Chief Complaint: Left leg ulcer History of Wound: This 70-year-old female with multiple comorbidities was seen for follow up of left ulcer on the leg. She has had prior application of advanced wound healing products in clinic and also in the operating room including TheraSkin and amnio fill. She denies fever, chill, nausea, vomiting. She denies redness or odor. She also previously had vascular intervention (arterial) and recently followed up with her vascular surgeon who will consider additional potential venous intervention. She has a procedure in her greater saphenous vein scheduled for this afternoon. She has continued drainage and dressing issues. She is with her daughter today. Progress of Wound: Stable Objective Data Objective Data Vital Signs: Vital Signs Temp Pulse Resp BP 96.7 F L 79 16 134/63 H 08/20/21 13:36 08/20/21 13:36 08/20/21 13:36 08/20/21 13:36 Oxygen Flow Rate (L/min) 2 Oxygen Delivery Method Room Air Weight: 63.503 kg Body Mass Index (BMI) 59.4 Physical Exam Extremity Extremity Narrative: No calf tenderness Diminished pulses Muscle wasting noted edema to limb is mild Skin Skin Narrative: Now the ulcer is completely circumferential around the leg, there are continued improved skin islands that are notable and distal epithelialization. The initial ulcers are no longer deep and appear healthy and granular. There is no purulence, no erythema, no streaking, no odor appreciated today. There is no bogginess or fluctuance on palpation. Neuro Neuro Narrative: hypersensitivity to light touch Debridement Note Debridement Note Wound debrided: left leg Wound Grade/Stage: Type of Debridement: Selective debridement Anesthesia Used: 4% Lidocaine Solution Depth: in the subcutaneous layer Percentage of wound debrided: 60 Instrument Used: #15 blade Tissue Removed: fibrous, devitalized subcutaneous, biofilm, slough Severity: Fat Layer Exposed Amount of bleeding with debridement: Mild Bleeding Controlled with: Pressure Patient tolerated procedure: Patient tolerated procedure well Post-Debridement Measurements and Additional Note: Post-Debridement Measurements/Treatment WC - Nurse 1 - General Ulcer Assessment Start: 08/20/21 13:36 Freq: Status: Active Protocol: TOMÁS.JOSSE Activity Type Activity Date Activity User E-Sign Co-Sign Detail Recorded Client Recorded Date Recorded By Document 08/20/21 13:36 [facility] [id number] 08/20/21 13:50 BMF 08/20/21 13:36 - Today's Visit Information Type of service Follow-up Visit (Physician/ADJUSTER ELECTRICAL CONTACTS ) Arrival Mode Wheelchair Transfer Assistance None Accompanied by DILSHAD Patient Identification Verified (Name & Yes ) Patient Requires Transmission-Based No Precautions Height and Weight Body Mass Index (BMI) 59.4 BMI Classification Obese Vital Signs Temperature (97.8 F-99.1 F) 96.7 F L Temperature Source Temporal Pulse Rate (60-100) 79 Pulse Location Monitor Respiratory Rate (12-18) 16 Respiratory rate source Observation Oxygen Delivery Method Room Air Blood Pressure (90/60-120/80) 134/63 H Blood Pressure Mean (mm Hg) 86 Source Monitor Position Sitting Blood Pressure Location Left Arm History Since Last Visit- (Skip if this is Patient's initial visit) Have you changed medications since your No last visit? Any new allergies or adverse reactions No Had a fall/change in ADL's that may No increase risk of falls Signs or symptoms of abuse and/or No neglect since last visit Have you been in the hospital since your No last visit? Has dressing in place as prescribed Yes Has compression in place as prescribed Yes Has offloadiing in place as prescribed N/A Experienced any changes in pain level or No management Left Footwear Other Footwear (Comment) Right Footwear Regular Shoe Other Footwear SOCK LLE Pain Scale: 0-10 Numeric Is Patient Pain Free? Yes - Nurse 1 - General Ulcer Measurement Start: 08/20/21 13:36 Freq: Status: Active Protocol: Activity Type Activity Date Activity User E-Sign Co-Sign Detail Recorded Client Recorded Date Recorded By Document 08/20/21 13:36 [facility] [id number] 08/20/21 13:50 [facility] 08/20/21 13:36 Wound Center Nurse 1 #1 LLE lateral -Combined with other wound No -Current Size (cm) - Length 2.6 -Current Size (cm) - Width 33.5 -Current Size (cm) - Depth 0.2 -Total Square Cm 87.10 -Photo Taken No -Epithelialization None Present -Tunneling No -Undermining/Tunneling No -Circular Undermining No -Exudate Amt Large -Exudate Type Serosanguineous -Wound Margin Distinct, Outline Attached -Granulation Amt Medium (34-66%) -Granulation Quality Red -Slough/Fibrin Yes -Necrosis Amt Medium (34-66%) -Necrotic Tissue Type Adherent Slough -Texture (Susana-wound Skin Appearance) Assessed, Excoriation, Scarring -Moisture (Susana-wound Skin Appearance) Assessed,Dry/ Scaly -Color (Susana-wound Skin Appearance) Assessed, Erythema -Temperature (Susana-wound Skin No Abnormality Appearance) (Pt Warm) -Tenderness on Palpation (Susana-wound No Skin Appearance) -Ulcer Cleansing Soap and Water -Foul Odor after Cleansing No -Anesthetic Used 4% Lidocaine Solution Assessment/Plan Assessment/Plan (1) Ulcer of left lower extremity with fat layer exposed: CODE(S): L97.922 - Non-pressure chronic ulcer of unspecified part of left lower leg with fat layer exposed (2) Localized edema: CODE(S): R60.0 - Localized edema (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 Debridement was performed today as noted in the clinical nursing panel. To wash leg every day with anti microbial soap and water. To gently dry with a clean towel. To continue with max absorption secondary dressing (ordered previously). To avoid placing adaptic over epithelialized skin. I recommend application of regular Adaptic as compared to Adaptic touch to allow moisture permeation. Her edema significantly fluctuates and therefore her dressing will need to fluctuate as needed. It is also okay to allow to rest with no dressings for 1 to 2 hours during the dressing change process. She has done well with this plan so far. Her pain is significantly irritated since her last visit but overall improved since her arterial intervention and recently her leg surgery. To follow-up with Dr. Morel as advised. It is noted she had angioplasty to the aorta and iliac level to reperfusion the left lower limb on 02-12-2021. Additional distal stenting also be considered. To follow-up as advised. It is noted she recently follow-up with Dr. Morel and per the patient he recommends additional venous intervention to help reduce swelling. She recently had this procedure done and will follow up with Dr. Morel scheduled. She is scheduled to have a procedure this afternoon on her greater saphenous vein. She was reassured no local signs of infection or purulence are noted today. She is under the management of infectious disease physician for recurrent leg infections and also for C. difficile management which is appreciated. She completed a course of iv cefepime cover deeper infection for duration of 6 weeks with a stop date of 03/24/2021. 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 She had a recent flare up and has been in contact with infectious disease specialist, Dr. De La Cruz which her diarrhea has now resolved. She was reassured no local signs of infection are noted today. I advised her to maintain better control her edema with intermittent elevation and muscular contraction of the involved post polio syndrome leg. I recommend Tubigrip application and she relates she only able to tolerate this part of the time. It is okay for her to wear a properly fitted and protected shoe and to weight-bear as tolerated to the left lower extremity. She is advised wearing Candelario wrap at least. She was prescribed lasix and is currently not taking this as recommended. I explained the purpose of the medication and advised compliance. Her most recent x-rays are negative for acute osseous changes. She does not have a diagnosis of osteomyelitis nor any other known qualifying diagnosis to proceed with hyperbaric oxygen therapy. To proceed with a proper control diet and nutrition supplementation to optimize healing. I answered all of her questions and explained the etiology of ulcer causes and the comprehensive wound healing plan. It is noted she is reducing her salt in her diet. To follow-up in 1 week. Note: [employer] speech recognition office manager receptionist software was used to create portions of this document. Sound-alike and misspelled words, as well as other office manager receptionist errors may be contained in the documentation.
[2021-08-27 14:12] VITALS: BP 116/60; PULSE 96; RESP 20; TEMP 36.7; BMI 59.4
--- NOTE | 2021-08-27 16:39 | PN.PCM_ITS ---
History of Present Illness Date of Service: 08/27/21 Chief Complaint: Left leg ulcer History of Wound: This 70-year-old female with multiple comorbidities was seen for follow up of left ulcer on the leg. She has had prior application of advanced wound healing products in clinic and also in the operating room including TheraSkin and amnio fill. She denies fever, chill, nausea, vomiting. She denies redness or odor. She also previously had vascular intervention (arterial) and recently followed up with her vascular surgeon for a series of additional venous intervention. She has a procedure in her greater saphenous vein performed last week and missed her doppler exam today. She has continued drainage and dressing issues. She is with her daughter today. Progress of Wound: Stable Objective Data Objective Data Vital Signs: Vital Signs Temp Pulse Resp BP 98.1 F 96 20 H 116/60 08/27/21 14:12 08/27/21 14:12 08/27/21 14:12 08/27/21 14:12 Oxygen Flow Rate (L/min) 2 Oxygen Delivery Method Room Air Weight: 63.503 kg Body Mass Index (BMI) 59.4 Physical Exam Extremity Extremity Narrative: No calf tenderness Diminished pulses Muscle wasting noted edema to limb is mild Skin Skin Narrative: Now the ulcer is completely circumferential around the leg, there are continued improved skin islands that are notable and distal epithelialization. The initial ulcers are no longer deep and appear healthy and granular. There is no purulence, no erythema, no streaking, no odor appreciated today. There is no bogginess or fluctuance on palpation. Neuro Neuro Narrative: hypersensitivity to light touch Debridement Note Debridement Note Wound debrided: Wound Grade/Stage: Post-Debridement Measurements and Additional Note: Post-Debridement Measurements/Treatment - Nurse 1 - General Ulcer Assessment Start: 08/20/21 13:36 Freq: Status: Active Protocol: TOMÁS.LOWGERONIMO Activity Type Activity Date Activity User E-Sign Co-Sign Detail Recorded Client Recorded Date Recorded By Document 08/20/21 13:36 [facility] [id number] 08/20/21 13:50 [facility] Document 08/27/21 14:12 [facility] [id number] 08/27/21 14:24 BMF 08/20/21 08/27/21 13:36 14:12 - Today's Visit Information Type of service Follow-up Visit Follow-up Visit (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/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 PRODUCT 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 (Physician/SENIOR PRODUCT DESIGNER ) ) Arrival Mode Wheelchair Wheelchair Transfer Assistance None Manual Transfer Assist (Other) x2 Accompanied by DILSHAD Patient Identification Verified (Name & Yes Yes ) Patient Requires Transmission-Based No No Precautions Height and Weight Body Mass Index (BMI) 59.4 59.4 BMI Classification Obese Obese Vital Signs Temperature (97.8 F-99.1 F) 96.7 F L 98.1 F Temperature Source Temporal Temporal Pulse Rate (60-100) 79 96 Pulse Location Monitor Monitor Respiratory Rate (12-18) 16 20 H Respiratory rate source Observation Observation Oxygen Delivery Method Room Air Blood Pressure (90/60-120/80) 134/63 H 116/60 Blood Pressure Mean (mm Hg) 86 78 Source Monitor Monitor Position Sitting Blood Pressure Location Left Arm History Since Last Visit- (Skip if this is Patient's initial visit) Have you changed medications since your No No last visit? Any new allergies or adverse reactions No No Had a fall/change in ADL's that may No No increase risk of falls Signs or symptoms of abuse and/or No No neglect since last visit Have you been in the hospital since your No No last visit? Has dressing in place as prescribed Yes Yes Has compression in place as prescribed Yes Yes Has offloadiing in place as prescribed N/A Yes Experienced any changes in pain level or No No management Left Footwear Other Footwear No Footwear (Comment) Right Footwear Regular Shoe Other Footwear SOCK LLE Pain Scale: 0-10 Numeric Is Patient Pain Free? Yes Yes WC - Nurse 1 - General Ulcer Measurement Start: 08/20/21 13:36 Freq: Status: Active Protocol: Activity Type Activity Date Activity User E-Sign Co-Sign Detail Recorded Client Recorded Date Recorded By Document 08/20/21 13:36 [facility] [id number] 08/20/21 13:50 [facility] Document 08/27/21 14:12 [facility] [id number] 08/27/21 14:24 BM 08/20/21 08/27/21 13:36 14:12 Wound Center Nurse 1 #1 LLE lateral -Combined with other wound No -Current Size (cm) - Length 2.6 34.5 -Current Size (cm) - Width 33.5 33.7 -Current Size (cm) - Depth 0.2 0.1 -Total Square Cm 87.10 1162.65 -Photo Taken No No -Epithelialization None Present -Tunneling No -Undermining/Tunneling No -Circular Undermining No -Exudate Amt Large Large -Exudate Type Serosanguineous Yellow/Green -Wound Margin Distinct, Indistinct, Non Outline -Visible Attached -Granulation Amt Medium (34-66%) Medium (34-66%) -Granulation Quality Red Red -Slough/Fibrin Yes -Necrosis Amt Medium (34-66%) Medium (34-66%) -Necrotic Tissue Type Adherent Slough Adherent Slough -Structure Exposed N/A -Texture (Susana-wound Skin Appearance) Assessed, Excoriation, Excoriation, Friable, Scarring Scarring -Moisture (Susana-wound Skin Appearance) Assessed,Dry/ Maceration Scaly -Color (Susana-wound Skin Appearance) Assessed, Erythema,Rubor Erythema -Temperature (Susana-wound Skin No Abnormality No Abnormality Appearance) (Pt Warm) (Pt Warm) -Tenderness on Palpation (Susana-wound No No Skin Appearance) -Ulcer Cleansing Soap and Water Soap and Water -Foul Odor after Cleansing No No -Anesthetic Used 4% Lidocaine 4% Lidocaine Solution Solution,5% Lidocaine Gel WC - Nurse 2 - General Ulcer CM Notes Start: 08/20/21 13:36 Freq: Status: Active Protocol: Activity Type Activity Date Activity User E-Sign Co-Sign Detail Recorded Client Recorded Date Recorded By Document 08/20/21 14:05 [id number] 08/20/21 14:18 Document 08/27/21 14:33 [id number] 08/27/21 14:34 08/20/21 08/27/21 14:05 14:33 Wound Center Nurse 2 #1 LLE lateral -Time 14:05 -Correct Patient Yes No -Correct Side, Site, Position Yes No -Correct Procedure Yes No -Procedure Performed Yes No -Type of Procedure Debridement -Clinical Debridement Epidermis / Dermis -Tissue Removed Epidermis, Dermis -Post Debridement (cm) - Length 10 -Post Debridement (cm) - Width 52 -Post Debridement (cm) - Depth 0.2 -Total Square (Post) (cm) 520 -Area of Debridement (cm) - Length 10 -Area of Debridement (cm) - Width 52 -Total Square (Area) (cm) 520 -Tunneling No -Undermining/Tunneling No -Circular Undermining No -Wound/Ulcer Outcome Not Healed Not Healed -Ulcer Cleansing Rinsed/ Irrigated with Saline -Foul Odor after Cleansing No -Bioengineered Tissue No -Bleeding Controlled with Pressure -Offloading No No -Treatment Response Procedure Procedure Tolerated Well Tolerated Well -Debridement - Open, 1st 20sq cm Yes -Debridement, Open, ea addt'l 20sq cm 26 or part thereof -Debridement - Subq, 1st 20sq cm No Pain Scale: 0-10 Numeric Is Patient Pain Free? Yes Yes - Nurse 3 - General Ulcer D/C NN Start: 08/20/21 13:36 Freq: Status: Active Protocol: Activity Type Activity Date Activity User E-Sign Co-Sign Detail Recorded Client Recorded Date Recorded By Document 08/20/21 15:33 RB [id number] 08/20/21 15:34 RB Document 08/27/21 14:51 [facility] [id number] 08/27/21 14:52 [facility] 08/20/21 08/27/21 15:33 14:51 Wound Care Nurse 3 #1 LLE lateral -Ulcer Cleansing Rinsed/ Rinsed/ Irrigated with Irrigated with Saline Saline -Foul Odor after Cleansing No -Primary Dressing Applied NonAdherent NonAdherent Contact Layer, Contact Layer, Optilok 8x12 Optilok 8x12 -Other Dressing cotton liner , drsg per rb rn candelario -Primary Dressing Covered/Secured with Dry Gauze,Dry Dry Gauze & Gauze & Roll Roll Gauze, Gauze,Secured Secured with with Tape Tape,Other -Other Covering abd -Optilok 8x12 2 2 Left -Compression Wrap Candelario Wrap Treatment Response Procedure Procedure Tolerated Well Tolerated Well Pain Scale: 0-10 Numeric Is Patient Pain Free? 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 Debridement was not performed today. To wash leg every day with anti microbial soap and water. To gently dry with a clean towel. To continue with max absorption secondary dressing (ordered previously). To avoid placing adaptic over epithelialized skin. I recommend application of regular Adaptic as compared to Adaptic touch to allow moisture permeation. If she has excessive maceration and moisture, I recommend taking a break from the Adaptic. Samples of super absorption phones and secondary dressings were provided today. She is still working on trying to set up with home health. Her edema significantly fluctuates and therefore her dressing will need to fluctuate as needed. It is also okay to allow to rest with no dressings for 1 to 2 hours during the dressing change process. She has done well with this plan so far. Her pain is significantly irritated since her last visit but overall improved since her arterial intervention and recently her leg surgery. To follow-up with Dr. Morel as advised. It is noted she had angioplasty to the aorta and iliac level to reperfusion the left lower limb on 02-12-2021. Additional distal stenting also be considered. To follow-up as advised. It is noted she recently follow-up with Dr. Morel and per the patient he recommends additional venous intervention to help reduce swelling. She recently had this procedure done and will follow up with Dr. Morel scheduled. To wear compression garments as recommended by her vascular specialist. She understands periodic inflammation may occur now that she is recent post procedure. She was reassured no local signs of infection or purulence are noted today. She is under the management of infectious disease physician for recurrent leg infections and also for C. difficile management which is appreciated. She completed a course of iv cefepime cover deeper infection for duration of 6 weeks with a stop date of 03/24/2021. 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 She has not had a recent flareup. I advised her to maintain better control her edema with intermittent elevation and muscular contraction of the involved post polio syndrome leg. I recommend Tubigrip application and she relates she only able to tolerate this part of the time. It is okay for her to wear a properly fitted and protected shoe and to weight-bear as tolerated to the left lower extremity. She is advised wearing Candelario wrap at least. She takes Lasix as needed. Her most recent x-rays are negative for acute osseous changes. She does not have a diagnosis of osteomyelitis nor any other known qualifying diagnosis to proceed with hyperbaric oxygen therapy. To proceed with a proper control diet and nutrition supplementation to optimize healing. I answered all of her questions and explained the etiology of ulcer causes and the comprehensive wound healing plan. It is noted she is reducing her salt in her diet. She is at risk for limb loss. We discussed her overall treatment options include 1. Continued comprehensive wound care plan with most recent venous intervention 2. Palliative care program 3. Surgical amputation of the limb 4. Second opinion. She elects to proceed with option 1 at this time. To follow-up in 1 week. Note: [employer] speech recognition tape keller operator software was used to create portions of this document. Sound 21 minutes was spent on this encounter. This included face to face and non face to face care including preparing for the visit, reviewing the history, performing the exam, counseling and providing education to the patient, family, or caregiver, ordering medications/test/ procedures if indicated as documented, communicating with other healthcare providers, documenting information in the medical record, interpreting / sharing this information when indicated as documented, and care coordination.
== END 2021-09-07 23:59 ==
LOC: WC 14:00
PROVIDERS: PCP Family Medicine; Referring Provider Podiatrist; Visit Provider Podiatrist
DX: I87.2 Venous insufficiency (chronic) (peripheral) (principal); L97.922 Non-pressure chronic ulcer of unspecified part of left lower leg with fat layer exposed; R60.0 Localized edema; A04.71 Enterocolitis due to Clostridium difficile, recurrent; G14 Postpolio syndrome; L85.3 Xerosis cutis; M79.605 Pain in left leg; E66.9 Obesity, unspecified; Z68.43 Body mass index [BMI] 50.0-59.9, adult; Z79.02 Long term (current) use of antithrombotics/antiplatelets; Z79.899 Other long term (current) drug therapy
CPT/HCPCS: 97597; 97598; 99213; G0463

== ENCOUNTER → 2021-09-17 08:54 | Outpatient (CLI) | payer MEDICARE, OTHER, SELFPAY ==
--- NOTE | 2021-09-17 09:02 | VDLE_ITS ---
Reason For Study: Swelling, pain, varicose veins left leg Procedure LEFT This is a venous duplex using B-mode, color CFV is compressible, spontaneous, phasic, flow and spectral Doppler. competent, and demonstrates normal Exam performed in department. augmentation. FV is compressible, spontaneous, phasic, competent and demonstrates normal augmentation. POP V is compressible, spontaneous, phasic, competent and demonstrates normal augmentation. T/P Trunk is compressible. PTV and PeroV not visualized due to open wounds and bandages on lower leg. 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 Unable to demonstrate incompetence in SSV as compared to 01/24/2021. VL/Venous Duplex US, Unilateral Interpretation Summary Left leg no DVT. Ordering Physician: Bryan Morel Referring Physician: Boo Cotton Performed By: Stella Monique RVT
== END ==
PROVIDERS: PCP Family Medicine; Referring Provider Surgery Vascular Surgery; Visit Provider Surgery Vascular Surgery
DX: I83.892 Varicose veins of left lower extremity with other complications (principal); M79.89 Other specified soft tissue disorders; M79.605 Pain in left leg; I77.1 Stricture of artery; Z87.891 Personal history of nicotine dependence; F41.9 Anxiety disorder, unspecified; E78.00 Pure hypercholesterolemia, unspecified; E07.9 Disorder of thyroid, unspecified; D89.89 Other specified disorders involving the immune mechanism, not elsewhere classified; I70.242 Atherosclerosis of native arteries of left leg with ulceration of calf
CPT/HCPCS: 93971

== ENCOUNTER 2021-10-01 15:15 | Outpatient (RCR) | payer MEDICARE, OTHER, SELFPAY ==
[2021-09-08 00:13] VITALS: BP 116/60; PULSE 96; RESP 20; TEMP 36.7; BMI 59.4
[2021-09-10 15:17] VITALS: BP 99/57; PULSE 100; RESP 16; TEMP 36.6; BMI 59.4
--- NOTE | 2021-09-10 16:18 | PCM.WC.PN ---
History of Present Illness Date of Service: 09/10/21 Chief Complaint: Left leg ulcer History of Wound: This 70-year-old female with multiple comorbidities was seen for follow up of left ulcer on the leg. She has had prior application of advanced wound healing products in clinic and also in the operating room including TheraSkin and amnio fill. She denies fever, chill, nausea, vomiting. She denies redness or odor. She also previously had vascular intervention (arterial) and recently followed up with her vascular surgeon for a series of additional venous intervention. She has a procedure in her greater saphenous vein performed recently and is try to get her follow-up scheduled. She has continued drainage and dressing issues. She is with her daughter today. Progress of Wound: Improving Objective Data Objective Data Vital Signs: Vital Signs Temp Pulse Resp BP 97.8 F 100 16 99/57 L 09/10/21 15:17 09/10/21 15:17 09/10/21 15:17 09/10/21 15:17 Oxygen Flow Rate (L/min) 2 Oxygen Delivery Method Room Air Weight: 63.503 kg Body Mass Index (BMI) 59.4 Physical Exam Extremity Extremity Narrative: No calf tenderness Diminished pulses Muscle wasting noted edema to limb is mild Skin Skin Narrative: Now the ulcer is completely circumferential around the leg, there are continued improved skin islands that are notable and distal epithelialization. The initial ulcers are no longer deep and appear healthy and granular. There is no purulence, no erythema, no streaking, no odor appreciated today. There is no bogginess or fluctuance on palpation. Neuro Neuro Narrative: hypersensitivity to light touch Debridement Note Debridement Note Wound debrided: Left leg Wound Grade/Stage: Type of Debridement: Selective debridement Anesthesia Used: 4% Lidocaine Solution Depth: Down to and including healthy tissue and in the subcutaneous layer Percentage of wound debrided: 100 Instrument Used: #15 blade Tissue Removed: fibrous, devitalized subcutaneous, biofilm, slough Severity: Fat Layer Exposed Amount of bleeding with debridement: Mild Bleeding Controlled with: Pressure Patient tolerated procedure: Patient tolerated procedure well Post-Debridement Measurements and Additional Note: Post-Debridement Measurements/Treatment TOMÁS - Nurse 1 - General Ulcer Assessment Start: 09/10/21 15:17 Freq: Status: Active Protocol: AYSHA Activity Type Activity Date Activity User E-Sign Co-Sign Detail Recorded Client Recorded Date Recorded By Document 09/10/21 15:17 [id number] 09/10/21 15:33 [facility] 09/10/21 15:17 - Today's Visit Information Type of service 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 ) Arrival Mode Wheelchair Transfer Assistance None Accompanied by daughter Patient Identification Verified (Name & Yes ) Patient Requires Transmission-Based No Precautions Height and Weight Body Mass Index (BMI) 59.4 BMI Classification Obese Vital Signs Temperature (97.8 F-99.1 F) 97.8 F Temperature Source Temporal Pulse Rate (60-100) 100 Pulse Location Monitor Respiratory Rate (12-18) 16 Respiratory rate source Observation Oxygen Delivery Method Room Air Blood Pressure (90/60-120/80) 99/57 L Blood Pressure Mean (mm Hg) 71 Source Monitor Position Sitting Blood Pressure Location Left Arm History Since Last Visit- (Skip if this is Patient's initial visit) Have you changed medications since your No last visit? Any new allergies or adverse reactions No Had a fall/change in ADL's that may No increase risk of falls Signs or symptoms of abuse and/or No neglect since last visit Have you been in the hospital since your No last visit? Has dressing in place as prescribed Yes Has compression in place as prescribed Yes Has offloadiing in place as prescribed N/A Experienced any changes in pain level or No management Right Footwear Removable Cast Walker/Walking Boot Pain Scale: 0-10 Numeric Is Patient Pain Free? Yes - Nurse 1 - General Ulcer Measurement Start: 09/10/21 15:17 Freq: Status: Active Protocol: Activity Type Activity Date Activity User E-Sign Co-Sign Detail Recorded Client Recorded Date Recorded By Document 09/10/21 15:17 [facility] [id number] 09/10/21 15:33 [facility] 09/10/21 15:17 Wound Center Nurse 1 #1 LLE lateral -Combined with other wound No -Current Size (cm) - Length 32.5 -Current Size (cm) - Width 26 -Current Size (cm) - Depth 0.2 -Total Square Cm 845.0 -Photo Taken No -Epithelialization Small 1-33% -Tunneling No -Undermining/Tunneling No -Circular Undermining No -Exudate Amt Large -Exudate Type Serosanguineous -Wound Margin Distinct, Outline Attached -Granulation Amt Large (67-100%) -Granulation Quality Red -Slough/Fibrin Yes -Necrosis Amt Large (67-100%) -Necrotic Tissue Type Adherent Slough -Texture (Susana-wound Skin Appearance) Assessed, Excoriation, Friable, Scarring -Moisture (Susana-wound Skin Appearance) Assessed, Maceration, Weeping,Dry/ Scaly -Color (Susana-wound Skin Appearance) Assessed, Erythema -Temperature (Susana-wound Skin No Abnormality Appearance) (Pt Warm) -Tenderness on Palpation (Susana-wound Yes Skin Appearance) -Ulcer Cleansing Soap and Water -Foul Odor after Cleansing No -Anesthetic Used 4% Lidocaine Solution - Nurse 2 - General Ulcer CM Notes Start: 09/10/21 15:17 Freq: Status: Active Protocol: Activity Type Activity Date Activity User E-Sign Co-Sign Detail Recorded Client Recorded Date Recorded By Document 09/10/21 15:48 [id number] 09/10/21 15:54 09/10/21 15:48 Wound Center Nurse 2 -Time 15:49 -Correct Patient No -Correct Side, Site, Position No -Correct Procedure No -Procedure Performed No -Undermining/Tunneling No -Foul Odor after Cleansing No -Bioengineered Tissue No Pain Scale: 0-10 Numeric Is Patient Pain Free? Yes - Nurse 3 - General Ulcer D/C NN Start: 09/10/21 15:17 Freq: Status: Active Protocol: Activity Type Activity Date Activity User E-Sign Co-Sign Detail Recorded Client Recorded Date Recorded By Document 09/10/21 16:00 DL [id number] 09/10/21 16:02 DL 09/10/21 16:00 Wound Care Nurse 3 #1 LLE lateral -Ulcer Cleansing Soap and Water -Foul Odor after Cleansing No -Primary Dressing Applied NonAdherent Contact Layer -Other Dressing Optilock -Primary Dressing Covered/Secured with Dry Gauze & Roll Gauze, Secured with Tape Treatment Response Procedure Tolerated Well Pain Scale: 0-10 Numeric Is Patient Pain Free? 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 Debridement was performed today as noted. To wash leg every day with anti microbial soap and water. To gently dry with a clean towel. To continue with max absorption secondary dressing (ordered previously). To avoid placing adaptic over epithelialized skin. I recommend application of regular Adaptic as compared to Adaptic touch to allow moisture permeation. If she has excessive maceration and moisture, I recommend taking a break from the Adaptic. Her edema significantly fluctuates and therefore her dressing will need to fluctuate as needed. It is also okay to allow to rest with no dressings for 1 to 2 hours during the dressing change process. She has done well with this plan so far. Her pain is significantly irritated since her last visit but overall improved since her arterial intervention and recently her leg surgery. To follow-up with Dr. Morel as advised. It is noted she had angioplasty to the aorta and iliac level to reperfusion the left lower limb on 02-12-2021. Additional distal stenting also be considered. To follow-up as advised. It is noted she recently follow-up with Dr. Morel and per the patient he recommends additional venous intervention to help reduce swelling. She recently had this procedure done and will follow up with Dr. Morel scheduled. To wear compression garments as recommended by her vascular specialist. She understands periodic inflammation may occur now that she is recent post procedure. She was reassured no local signs of infection or purulence are noted today. She is under the management of infectious disease physician for recurrent leg infections and also for C. difficile management which is appreciated. She completed a course of iv cefepime cover deeper infection for duration of 6 weeks with a stop date of 03/24/2021. 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 She has not had a recent flare up. I advised her to maintain better control her edema with intermittent elevation and muscular contraction of the involved post polio syndrome leg. I recommend Tubigrip application and she relates she only able to tolerate this part of the time. It is okay for her to wear a properly fitted and protected shoe and to weight-bear as tolerated to the left lower extremity. She is advised wearing Candelario wrap at least. She takes Lasix as needed. Her most recent x-rays are negative for acute osseous changes. She does not have a diagnosis of osteomyelitis nor any other known qualifying diagnosis to proceed with hyperbaric oxygen therapy. To proceed with a proper control diet and nutrition supplementation to optimize healing. I answered all of her questions and explained the etiology of ulcer causes and the comprehensive wound healing plan. It is noted she is reducing her salt in her diet. She is at risk for limb loss. We discussed her overall treatment options include 1. Continued comprehensive wound care plan with most recent venous intervention 2. Palliative care program 3. Surgical amputation of the limb 4. Second opinion. She elects to proceed with option 1 at this time. To follow-up in 1 week. Note: [employer] speech recognition sand operator software was used to create portions of this document. Sound The medical decision making level is low. There is noted low risk of morbidity after considering this treatment plan and diagnostic data. The problems addressed require a low medical decision making level which includes two or more minor problems, a stable chronic illness, or an acute uncomplicated illness or injury.
[2021-10-01 15:29] VITALS: BP 118/55; PULSE 102; TEMP 36.6; BMI 59.4
--- NOTE | 2021-10-01 16:29 | PN.PCM_ITS ---
History of Present Illness Date of Service: 10/01/21 Chief Complaint: Left leg ulcer History of Wound: This 70-year-old female with multiple comorbidities was seen for follow up of left ulcer on the leg. She has had prior application of advanced wound healing products in clinic and also in the operating room including TheraSkin and amnio fill. She denies fever, chill, nausea, vomiting. She denies redness or odor. She also previously had vascular intervention (arterial) and recently followed up with her vascular surgeon for a series of additional venous intervention. She will follow up again in December. She has a procedure in her greater saphenous vein performed recently and is try to get her follow-up scheduled. She has continued drainage and dressing issues. She is with her sister today. Progress of Wound: stable Objective Data Objective Data Vital Signs: Vital Signs Temp Pulse Resp BP 98 F 102 H 16 118/55 L 10/01/21 15:29 10/01/21 15:29 09/10/21 15:17 10/01/21 15:29 Oxygen Flow Rate (L/min) 2 Oxygen Delivery Method Room Air Weight: 63.503 kg Body Mass Index (BMI) 59.4 Physical Exam Skin Skin Narrative: Now the ulcer is completely circumferential around the leg, there are continued improved skin islands that are notable and distal continued epithelialization. The initial ulcers are no longer deep and appear healthy and granular. There is no purulence, no erythema, no streaking, no odor appreciated today. There is no bogginess or fluctuance on palpation. Neuro Neuro Narrative: hypersensitivity to light touch Debridement Note Debridement Note Wound debrided: right leg Wound Grade/Stage: Type of Debridement: Selective debridement Anesthesia Used: 4% Lidocaine Solution Depth: Down to and including healthy tissue Percentage of wound debrided: 100 Instrument Used: #15 blade Tissue Removed: fibrous, devitalized subcutaneous, biofilm, slough Severity: Fat Layer Exposed Amount of bleeding with debridement: Mild Bleeding Controlled with: Pressure Patient tolerated procedure: Patient tolerated procedure well Post-Debridement Measurements and Additional Note: Post-Debridement Measurements/Treatment TOMÁS - Nurse 1 - General Ulcer Assessment Start: 09/10/21 15:17 Freq: Status: Active Protocol: AYSHA Activity Type Activity Date Activity User E-Sign Co-Sign Detail Recorded Client Recorded Date Recorded By Document 09/10/21 15:17 [facility] [id number] 09/10/21 15:33 [facility] Document 10/01/21 15:29 [facility] [id number] 10/01/21 15:40 [facility] 09/10/21 10/01/21 15:17 15:29 - Today's Visit Information Type of service Follow-up Visit Follow-up Visit (Physician/CRYPTOGRAPHY TEACHER (Physician/CRYPTOGRAPHY TEACHER ) ) Arrival Mode Wheelchair Wheelchair Transfer Assistance None Accompanied by daughter daughter Patient Identification Verified (Name & Yes Yes ) Patient Requires Transmission-Based No No Precautions Safety Precautions NA Height and Weight Body Mass Index (BMI) 59.4 59.4 BMI Classification Obese Obese Vital Signs Temperature (97.8 F-99.1 F) 97.8 F 98 F Temperature Source Temporal Temporal Pulse Rate (60-100) 100 102 H Pulse Location Monitor Monitor Respiratory Rate (12-18) 16 Respiratory rate source Observation Oxygen Delivery Method Room Air Blood Pressure (90/60-120/80) 99/57 L 118/55 L Blood Pressure Mean (mm Hg) 71 76 Source Monitor Monitor Position Sitting Blood Pressure Location Left Arm History Since Last Visit- (Skip if this is Patient's initial visit) Have you changed medications since your No No last visit? Any new allergies or adverse reactions No No Had a fall/change in ADL's that may No No increase risk of falls Signs or symptoms of abuse and/or No No neglect since last visit Have you been in the hospital since your No No last visit? Has dressing in place as prescribed Yes Yes Has compression in place as prescribed Yes Yes Has offloadiing in place as prescribed N/A N/A Experienced any changes in pain level or No No management Left Footwear Regular Shoe Right Footwear Removable Cast Regular Shoe Walker/Walking Boot Pain Scale: 0-10 Numeric Is Patient Pain Free? Yes - Nurse 1 - General Ulcer Measurement Start: 09/10/21 15:17 Freq: Status: Active Protocol: Activity Type Activity Date Activity User E-Sign Co-Sign Detail Recorded Client Recorded Date Recorded By Document 09/10/21 15:17 [facility] [id number] 09/10/21 15:33 [facility] Document 10/01/21 15:29 [facility] [id number] 10/01/21 15:40 [facility] 09/10/21 10/01/21 15:17 15:29 Wound Center Nurse 1 #1 LLE lateral -Combined with other wound No No -Current Size (cm) - Length 32.5 24 -Current Size (cm) - Width 26 31.8 -Current Size (cm) - Depth 0.2 0.2 -Total Square Cm 845.0 763.2 -Photo Taken No No -Epithelialization Small 1-33% None Present -Tunneling No No -Undermining/Tunneling No No -Circular Undermining No No -Exudate Amt Large Large -Exudate Type Serosanguineous Serosanguineous -Wound Margin Distinct, Outline Attached -Granulation Amt Large (67-100%) -Granulation Quality Red -Slough/Fibrin Yes Yes -Necrosis Amt Large (67-100%) Medium (34-66%) -Necrotic Tissue Type Adherent Slough Adherent Slough -Structure Exposed N/A -Texture (Susana-wound Skin Appearance) Assessed, Assessed, Excoriation, Excoriation, Friable, Friable Scarring -Moisture (Susana-wound Skin Appearance) Assessed, No Abnormality, Maceration, Assessed Weeping,Dry/ Scaly -Color (Susana-wound Skin Appearance) Assessed, Assessed, Erythema Erythema -Temperature (Susana-wound Skin No Abnormality No Abnormality Appearance) (Pt Warm) (Pt Warm) -Tenderness on Palpation (Susana-wound Yes No Skin Appearance) -Ulcer Cleansing Soap and Water Soap and Water -Foul Odor after Cleansing No No -Anesthetic Used 4% Lidocaine 4% Lidocaine Solution Solution,5% Lidocaine Gel Lower Limb Edema Present No Left Calf (cm) 31.8 Left Ankle (cm) 24.2 WC - Nurse 2 - General Ulcer CM Notes Start: 09/10/21 15:17 Freq: Status: Active Protocol: Activity Type Activity Date Activity User E-Sign Co-Sign Detail Recorded Client Recorded Date Recorded By Document 09/10/21 15:48 [facility] [id number] 09/10/21 15:54 Document 10/01/21 16:06 [email or web address] [id number] 10/01/21 16:16 09/10/21 10/01/21 15:48 16:06 Wound Center Nurse 2 #1 LLE lateral -Time 15:49 16:06 -Correct Patient No Yes -Correct Side, Site, Position No Yes -Correct Procedure No Yes -Procedure Performed No Yes -Type of Procedure Debridement -Clinical Debridement Epidermis / Dermis -Tissue Removed Epidermis, Dermis -Post Debridement (cm) - Length 100 -Post Debridement (cm) - Width 3.8 -Post Debridement (cm) - Depth 0.1 -Total Square (Post) (cm) 380.0 -Area of Debridement (cm) - Length 100 -Area of Debridement (cm) - Width 3.8 -Total Square (Area) (cm) 380.0 -Tunneling No -Undermining/Tunneling No No -Circular Undermining No -Wound/Ulcer Outcome Not Healed -Ulcer Cleansing Rinsed/ Irrigated with Saline -Foul Odor after Cleansing No No -Bioengineered Tissue No No -Bleeding Controlled with Pressure -Offloading No -Treatment Response Procedure Tolerated Well -Debridement - Open, 1st 20sq cm Yes -Debridement, Open, ea addt'l 20sq cm 11 or part thereof Pain Scale: 0-10 Numeric Is Patient Pain Free? Yes Yes - Nurse 3 - General Ulcer D/C NN Start: 09/10/21 15:17 Freq: Status: Active Protocol: Activity Type Activity Date Activity User E-Sign Co-Sign Detail Recorded Client Recorded Date Recorded By Document 09/10/21 16:00 DL [id number] 09/10/21 16:02 DL 09/10/21 16:00 Wound Care Nurse 3 #1 LLE lateral -Ulcer Cleansing Soap and Water -Foul Odor after Cleansing No -Primary Dressing Applied NonAdherent Contact Layer -Other Dressing Optilock -Primary Dressing Covered/Secured with Dry Gauze & Roll Gauze, Secured with Tape Treatment Response Procedure Tolerated Well Pain Scale: 0-10 Numeric Is Patient Pain Free? 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 Debridement was performed today as noted. To wash leg every day with anti microbial soap and water. To gently dry with a clean towel. To continue with max absorption secondary dressing (ordered previously). To avoid placing adaptic over epithelialized skin. I recommend application of regular Adaptic as compared to Adaptic touch to allow moisture permeation. If she has excessive maceration and moisture on an intermittent basis. Her edema significantly fluctuates and therefore her dressing will need to fluctuate as needed. It is also okay to allow to rest with no dressings for 1 to 2 hours during the dressing change process. She has done well with this plan so far. I recommend application of advanced wound healing product, Apligraf. Is not clear if she will qualify for this. I do recommend this as a medical necessity to optimize healing to reduce the chance of limb loss. The indications, benefits, anticipated healing time and management were discussed. Prior authorization will be initiated. She has failed other conservative care measures and other prior advanced measures as well. This is a limb salvage case. Her pain is continued since her last visit but overall improved since her arterial intervention and recently her leg surgery. To follow-up with Dr. Morel as advised. It is noted she had angioplasty to the aorta and iliac level to reperfusion the left lower limb on 02-12-2021. Additional distal stenting also be considered. To follow-up as advised. It is noted she recently follow-up with Dr. Morel and per the patient he recommends additional venous intervention to help reduce swelling. She recently had this procedure done and will follow up with Dr. Morel scheduled. To wear compression garments as recommended by her vascular specialist. She understands periodic inflammation may occur now that she is recent post procedure. She was reassured no local signs of infection or purulence are noted today. She is under the management of infectious disease physician for recurrent leg infections and also for C. difficile management which is appreciated. She completed a course of iv cefepime cover deeper infection for duration of 6 weeks with a stop date of 03/24/2021. 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 She has not had a recent flare up. I advised her to maintain better control her edema with intermittent elevation and muscular contraction of the involved post polio syndrome leg. I recommend Tubigrip application and she relates she only able to tolerate this part of the time. It is okay for her to wear a properly fitted and protected shoe and to weight-bear as tolerated to the left lower extremity. She is advised wearing Candelario wrap at least. She takes Lasix as needed. Pain management referral was offered previously. Her most recent x-rays are negative for acute osseous changes. She does not have a diagnosis of osteomyelitis nor any other known qualifying diagnosis to proceed with hyperbaric oxygen therapy. To proceed with a proper control diet and nutrition supplementation to optimize healing. I answered all of her questions and explained the etiology of ulcer causes and the comprehensive wound healing plan. It is noted she is reducing her salt in her diet. She is at risk for limb loss. We discussed her overall treatment options include 1. Continued comprehensive wound care plan with most recent venous intervention 2. Palliative care program 3. Surgical amputation of the limb 4. Second opinion. She elects to proceed with option 1 at this time. To follow-up in 1 week. Note: [employer] speech recognition desilverizer software was used to create portions of this document. Sound
== END 2021-10-07 23:59 ==
LOC: WC 15:15
PROVIDERS: PCP Family Medicine; Referring Provider Podiatrist; Visit Provider Podiatrist
DX: L97.822 Non-pressure chronic ulcer of other part of left lower leg with fat layer exposed (principal); I73.9 Peripheral vascular disease, unspecified; I87.2 Venous insufficiency (chronic) (peripheral); A04.71 Enterocolitis due to Clostridium difficile, recurrent; G14 Postpolio syndrome; L85.3 Xerosis cutis; R60.0 Localized edema; Z22.9 Carrier of infectious disease, unspecified; E66.9 Obesity, unspecified; Z68.43 Body mass index [BMI] 50.0-59.9, adult; Z79.02 Long term (current) use of antithrombotics/antiplatelets; Z79.01 Long term (current) use of anticoagulants; Z79.890 Hormone replacement therapy; Z79.899 Other long term (current) drug therapy
CPT/HCPCS: 97597; 97598; 99214; G0463

== ENCOUNTER 2021-10-22 15:18 | Outpatient (RCR) | payer MEDICARE, OTHER, SELFPAY ==
[2021-10-08 00:18] VITALS: BP 118/55; PULSE 102; RESP 16; TEMP 36.6; BMI 59.4
[2021-10-22 15:26] VITALS: BP 85/56; PULSE 119; RESP 18; TEMP 36.8; BMI 59.4
--- NOTE | 2021-10-22 16:12 | PCM.WC.PN ---
History of Present Illness Date of Service: 10/22/21 Chief Complaint: Left leg ulcer History of Wound: This 71-year-old female with multiple comorbidities was seen for follow up of left ulcer on the leg. She has had prior application of advanced wound healing products in clinic and also in the operating room including TheraSkin and amnio fill. She denies fever, chill, nausea, vomiting. She denies redness or odor. She also previously had vascular intervention (arterial) and recently followed up with her vascular surgeon for a series of additional venous intervention. She will follow up again in December. She has a procedure in her greater saphenous vein performed recently and is now being monitored by Dr. Morel. She has continued drainage and dressing issues. She is with her sister today. Her pain is significantly reduced and she reports she has not had pain in the past 4 days. Progress of Wound: Improving Objective Data Objective Data Vital Signs: Vital Signs Temp Pulse Resp BP 98.3 F 119 H 18 85/56 L 10/22/21 15:26 10/22/21 15:26 10/22/21 15:26 10/22/21 15:26 Oxygen Flow Rate (L/min) 2 Weight: 63.503 kg Body Mass Index (BMI) 59.4 Physical Exam Skin Skin Narrative: Now the ulcer is completely circumferential around the leg, there are continued improved skin islands that are notable and distal continued epithelialization. The initial ulcers are no longer deep and appear healthy and granular. There is no purulence, no erythema, no streaking, no odor appreciated today. There is no bogginess or fluctuance on palpation. Neuro Neuro Narrative: hypersensitivity to light touch not as notable today Debridement Note Debridement Note Wound debrided: Right leg Wound Grade/Stage: Type of Debridement: Selective debridement Anesthesia Used: 4% Lidocaine Solution Depth: Down to and including healthy tissue Percentage of wound debrided: 100 Instrument Used: #15 blade and Forceps Tissue Removed: fibrous, devitalized tissue, biofilm, slough Severity: Fat Layer Exposed Amount of bleeding with debridement: Mild Bleeding Controlled with: Pressure Patient tolerated procedure: Patient tolerated procedure well Post-Debridement Measurements and Additional Note: Post-Debridement Measurements/Treatment TOMÁS - Nurse 1 - General Ulcer Assessment Start: 10/22/21 15:23 Freq: Status: Active Protocol: AYSHA Activity Type Activity Date Activity User E-Sign Co-Sign Detail Recorded Client Recorded Date Recorded By Document 12/15/21 15:26 [facility] [id number] 10/22/21 15:34 [facility] 10/22/21 15:26 WC - Today's Visit Information Type of service Follow-up Visit (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/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 ENGINEER ) Arrival Mode Wheelchair Transfer Assistance None Patient Identification Verified (Name & Yes ) Patient Requires Transmission-Based No Precautions Height and Weight Body Mass Index (BMI) 59.4 BMI Classification Obese Vital Signs Temperature (97.8 F-99.1 F) 98.3 F Temperature Source Temporal Pulse Rate (60-100) 119 H Pulse Location Monitor Respiratory Rate (12-18) 18 Respiratory rate source Observation Blood Pressure (90/60-120/80) 85/56 L Blood Pressure Mean (mm Hg) 65 Source Monitor Position Semi-Fowlers Blood Pressure Location Left Arm History Since Last Visit- (Skip if this is Patient's initial visit) Have you changed medications since your No last visit? Any new allergies or adverse reactions No Had a fall/change in ADL's that may No increase risk of falls Signs or symptoms of abuse and/or No neglect since last visit Have you been in the hospital since your No last visit? Has dressing in place as prescribed Yes Has compression in place as prescribed No Has offloadiing in place as prescribed No Experienced any changes in pain level or No management WC - Nurse 1 - General Ulcer Measurement Start: 10/22/21 15:23 Freq: Status: Active Protocol: Activity Type Activity Date Activity User E-Sign Co-Sign Detail Recorded Client Recorded Date Recorded By Document 10/22/21 15:26 [facility] [id number] 10/22/21 15:34 [facility] 10/22/21 15:26 Wound Center Nurse 1 #1 LLE lateral -Combined with other wound No -Current Size (cm) - Length 30.2 -Current Size (cm) - Width 23 -Current Size (cm) - Depth 0.1 -Total Square Cm 694.6 -Tunneling No -Undermining/Tunneling No -Circular Undermining No -Exudate Amt Large -Exudate Type Serosanguineous -Wound Margin Flat & Intact -Granulation Amt Large (67-100%) -Granulation Quality [place] -Slough/Fibrin Yes -Necrosis Amt Medium (34-66%) -Necrotic Tissue Type Adherent Slough -Structure Exposed N/A -Texture (Susana-wound Skin Appearance) Assessed, Excoriation -Moisture (Susana-wound Skin Appearance) Assessed -Color (Susana-wound Skin Appearance) Assessed -Temperature (Susana-wound Skin No Abnormality Appearance) (Pt Warm) -Tenderness on Palpation (Susana-wound No Skin Appearance) -Ulcer Cleansing Wound Cleanser -Foul Odor after Cleansing No -Anesthetic Used 4% Lidocaine Solution,5% Lidocaine Gel Lower Limb Edema Present NA Right Calf (cm) 30.2 Right Ankle (cm) 23 WC - Nurse 2 - General Ulcer CM Notes Start: 10/22/21 15:23 Freq: Status: Active Protocol: Activity Type Activity Date Activity User E-Sign Co-Sign Detail Recorded Client Recorded Date Recorded By Document 10/22/21 15:55 [id number] 10/22/21 15:57 10/22/21 15:55 Wound Center Nurse 2 #1 LLE lateral -Time 15:55 -Correct Patient Yes -Correct Side, Site, Position Yes -Correct Procedure Yes -Procedure Performed Yes -Type of Procedure Debridement -Clinical Debridement Epidermis / Dermis -Tissue Removed Epidermis, Dermis -Post Debridement (cm) - Length 30.2 -Post Debridement (cm) - Width 23.0 -Post Debridement (cm) - Depth 0.1 -Total Square (Post) (cm) 694.60 -Area of Debridement (cm) - Length 30.2 -Area of Debridement (cm) - Width 23 -Total Square (Area) (cm) 694.6 -Tunneling No -Undermining/Tunneling No -Circular Undermining No -Wound/Ulcer Outcome Not Healed -Ulcer Cleansing Rinsed/ Irrigated with Saline -Foul Odor after Cleansing No -Bioengineered Tissue No -Bleeding Controlled with Pressure -Offloading No -Treatment Response Procedure Tolerated Well -Debridement - Open, 1st 20sq cm Yes -Debridement, Open, ea addt'l 20sq cm 11 or part thereof Pain Scale: 0-10 Numeric Is Patient Pain Free? Yes - Nurse 3 - General Ulcer D/C NN Start: 10/22/21 15:23 Freq: Status: Active Protocol: Activity Type Activity Date Activity User E-Sign Co-Sign Detail Recorded Client Recorded Date Recorded By Document 10/22/21 16:11 [facility] [id number] 10/22/21 16:12 [facility] 10/22/21 16:11 Wound Care Nurse 3 #1 LLE lateral -Primary Dressing Applied NonAdherent Contact Layer, Optilok 8x12 -Primary Dressing Covered/Secured with Secured with Tape,Other -Other Covering roll gauze, stockinette, candelario to secure -Optilok 8x12 2 Left -Compression Wrap Candelario Wrap Treatment Response Procedure Tolerated Well Pain Scale: 0-10 Numeric Is Patient Pain Free? 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 Debridement was performed today as noted. To wash leg every day with anti microbial soap and water. To gently dry with a clean towel. To continue with max absorption secondary dressing (ordered previously). To avoid placing adaptic over epithelialized skin. I recommend application of regular Adaptic as compared to Adaptic touch to allow moisture permeation. If she has excessive maceration and moisture on an intermittent basis. Her edema significantly fluctuates and therefore her dressing will need to fluctuate as needed. It is also okay to allow to rest with no dressings for 1 to 2 hours during the dressing change process. She has done well with this plan so far. I recommend application of advanced wound healing product, Apligraf. Is not clear if she will qualify for this. I do recommend this as a medical necessity to optimize healing to reduce the chance of limb loss. The indications, benefits, anticipated healing time and management were discussed. Prior authorization will be initiated. She has failed other conservative care measures and other prior advanced measures as well. This is a limb salvage case. She would like to wait until the first of the year for prior authorization because this is what her insurance plan resets. This seems reasonable. Her pain is continued since her last visit but overall improved since her arterial intervention and recently her leg surgery. To follow-up with Dr. Morel as advised. It is noted she had angioplasty to the aorta and iliac level to reperfusion the left lower limb on 02-12-2021. Additional distal stenting also be considered. To follow-up as advised. It is noted she recently follow-up with Dr. Morel and per the patient he recommends additional venous intervention to help reduce swelling. She recently had this procedure done and will follow up with Dr. Morel scheduled. To wear compression garments as recommended by her vascular specialist. She understands periodic inflammation may occur now that she is recent post procedure. She was reassured no local signs of infection or purulence are noted today. She is under the management of infectious disease physician for recurrent leg infections and also for C. difficile management which is appreciated. She completed a course of iv cefepime cover deeper infection for duration of 6 weeks with a stop date of 03/24/2021. 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 She has not had a recent flare up. I advised her to maintain better control her edema with intermittent elevation and muscular contraction of the involved post polio syndrome leg. I recommend Tubigrip application and she relates she only able to tolerate this part of the time. It is okay for her to wear a properly fitted and protected shoe and to weight-bear as tolerated to the left lower extremity. She is advised wearing Candelario wrap at least. She takes Lasix as needed. Pain management referral was offered previously. Her most recent x-rays are negative for acute osseous changes. She does not have a diagnosis of osteomyelitis nor any other known qualifying diagnosis to proceed with hyperbaric oxygen therapy. To proceed with a proper control diet and nutrition supplementation to optimize healing. I answered all of her questions and explained the etiology of ulcer causes and the comprehensive wound healing plan. It is noted she is reducing her salt in her diet. She is at risk for limb loss. We discussed her overall treatment options include 1. Continued comprehensive wound care plan with most recent venous intervention 2. Palliative care program 3. Surgical amputation of the limb 4. Second opinion. She elects to proceed with option 1 at this time. To follow-up in 3 week. 20 minutes was spent on this encounter. This included face to face and non face to face care including preparing for the visit, reviewing the history, performing the exam, counseling and providing education to the patient, family, or caregiver, ordering medications/test/ procedures if indicated as documented, communicating with other healthcare providers, documenting information in the medical record, interpreting / sharing this information when indicated as documented, and care coordination. Note: [employer] speech recognition jet pilot software was used to create portions of this document. Sound
== END 2021-11-07 23:59 ==
LOC: WC 15:18
PROVIDERS: PCP Family Medicine; Referring Provider Podiatrist; Visit Provider Podiatrist
DX: L97.922 Non-pressure chronic ulcer of unspecified part of left lower leg with fat layer exposed (principal); A04.71 Enterocolitis due to Clostridium difficile, recurrent; I87.2 Venous insufficiency (chronic) (peripheral); G14 Postpolio syndrome; R60.0 Localized edema; L85.3 Xerosis cutis; E66.9 Obesity, unspecified; Z68.43 Body mass index [BMI] 50.0-59.9, adult; Z79.02 Long term (current) use of antithrombotics/antiplatelets; Z79.890 Hormone replacement therapy; Z79.899 Other long term (current) drug therapy
CPT/HCPCS: 97597; 97598

== ENCOUNTER 2021-12-03 15:00 | Outpatient (RCR) | payer MEDICARE, OTHER, SELFPAY ==
[2021-11-08 00:18] VITALS: BP 85/56; PULSE 119; RESP 18; TEMP 36.8; BMI 59.4
[2021-11-12 15:16] VITALS: BP 119/52; PULSE 95; RESP 22; TEMP 36.7; BMI 59.4
--- NOTE | 2021-11-12 22:39 | PCM.WC.PN ---
History of Present Illness Date of Service: 11/12/21 Chief Complaint: Left leg ulcer History of Wound: This 71-year-old female with multiple comorbidities was seen for follow up of left ulcer on the leg. She has had prior application of advanced wound healing products in clinic and also in the operating room including TheraSkin and amnio fill in a remote manner. She denies fever, chill, nausea, vomiting. She denies redness or odor. She also previously had vascular intervention (arterial) and recently followed up with her vascular surgeon for a series of additional venous intervention. She will follow up again in December. She has a procedure in her greater saphenous vein performed recently and is now being monitored by Dr. Morel. She has continued drainage and dressing issues. She is with her sister today. Her pain is significantly reduced and she reports she has not had pain in the past 4 days again. Objective Data Objective Data Vital Signs: Vital Signs Temp Pulse Resp BP 98.1 F 95 22 H 119/52 L 11/12/21 15:16 11/12/21 15:16 11/12/21 15:16 11/12/21 15:16 Oxygen Flow Rate (L/min) 2 Weight: 63.503 kg Body Mass Index (BMI) 59.4 Physical Exam Skin Skin Narrative: Now the ulcer is completely circumferential around the leg, there are continued improved skin islands that are notable and distal continued epithelialization. The initial ulcers are no longer deep and appear healthy and granular. There is no purulence, no erythema, no streaking, no odor appreciated today. There is no bogginess or fluctuance on palpation. Neuro Neuro Narrative: hypersensitivity to light touch not as notable today Debridement Note Debridement Note Wound debrided: left leg Wound Grade/Stage: Type of Debridement: Selective debridement Anesthesia Used: 4% Lidocaine Solution Depth: in the subcutaneous layer Percentage of wound debrided: 100 Instrument Used: #15 blade Tissue Removed: fibrous, devitalized subcutaneous, biofilm, slough Severity: Fat Layer Exposed Amount of bleeding with debridement: Mild Bleeding Controlled with: Pressure Patient tolerated procedure: Patient tolerated procedure well Post-Debridement Measurements and Additional Note: Post-Debridement Measurements/Treatment TOMÁS - Nurse 1 - General Ulcer Assessment Start: 11/12/21 15:16 Freq: Status: Active Protocol: AYSHA Activity Type Activity Date Activity User E-Sign Co-Sign Detail Recorded Client Recorded Date Recorded By Document 11/12/21 15:16 DL [id number] 11/12/21 15:34 DL 11/12/21 15:16 WC - Today's Visit Information Type of service 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 Visit (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/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 ) Arrival Mode Wheelchair Transfer Assistance None Patient Identification Verified (Name & Yes ) Patient Requires Transmission-Based No Precautions Height and Weight Body Mass Index (BMI) 59.4 BMI Classification Obese Vital Signs Temperature (97.8 F-99.1 F) 98.1 F Temperature Source Temporal Pulse Rate (60-100) 95 Pulse Location Monitor Respiratory Rate (12-18) 22 H Respiratory rate source Observation Blood Pressure (90/60-120/80) 119/52 L Blood Pressure Mean (mm Hg) 74 Source Monitor History Since Last Visit- (Skip if this is Patient's initial visit) Have you changed medications since your No last visit? Any new allergies or adverse reactions No Had a fall/change in ADL's that may No increase risk of falls Signs or symptoms of abuse and/or No neglect since last visit Have you been in the hospital since your No last visit? Has dressing in place as prescribed Yes Has compression in place as prescribed N/A Has offloadiing in place as prescribed N/A Experienced any changes in pain level or No management Pain Scale: 0-10 Numeric Is Patient Pain Free? Yes - Nurse 1 - General Ulcer Measurement Start: 11/12/21 15:16 Freq: Status: Active Protocol: Activity Type Activity Date Activity User E-Sign Co-Sign Detail Recorded Client Recorded Date Recorded By Document 11/12/21 15:16 KELSY [id number] 11/12/21 15:34 11/12/21 15:16 Wound Center Nurse 1 #1 LLE lateral -Current Size (cm) - Length 25 -Current Size (cm) - Width 28 -Current Size (cm) - Depth 0.1 -Total Square Cm 700 -Photo Taken No -Exudate Amt Medium -Exudate Type Serosanguineous -Wound Margin Indistinct, Non -Visible -Granulation Amt Medium (34-66%) -Granulation Quality Red -Necrosis Amt Medium (34-66%) -Necrotic Tissue Type Adherent Slough -Texture (Susana-wound Skin Appearance) Excoriation, Scarring,Rash -Moisture (Susana-wound Skin Appearance) Weeping -Color (Susana-wound Skin Appearance) Erythema -Temperature (Susana-wound Skin No Abnormality Appearance) (Pt Warm) -Tenderness on Palpation (Susana-wound No Skin Appearance) -Ulcer Cleansing Soap and Water -Foul Odor after Cleansing Yes, Due to Product Use -Anesthetic Used 4% Lidocaine Solution,5% Lidocaine Gel TOMÁS - Nurse 2 - General Ulcer CM Notes Start: 11/12/21 15:16 Freq: Status: Active Protocol: Activity Type Activity Date Activity User E-Sign Co-Sign Detail Recorded Client Recorded Date Recorded By Document 11/12/21 16:05 FELISHA [id number] 11/12/21 16:19 JF 11/12/21 16:05 Wound Center Nurse 2 -Time 16:06 -Correct Patient Yes -Correct Side, Site, Position Yes -Correct Procedure Yes -Procedure Performed Yes -Type of Procedure Debridement -Clinical Debridement Epidermis / Dermis -Tissue Removed Epidermis, Dermis -Post Debridement (cm) - Length 5 -Post Debridement (cm) - Width 10 -Post Debridement (cm) - Depth 0.1 -Total Square (Post) (cm) 50 -Area of Debridement (cm) - Length 5 -Area of Debridement (cm) - Width 10 -Total Square (Area) (cm) 50 -Tunneling No -Undermining/Tunneling No -Circular Undermining No -Wound/Ulcer Outcome Not Healed -Ulcer Cleansing Rinsed/ Irrigated with Saline -Foul Odor after Cleansing No -Bioengineered Tissue No -Bleeding Controlled with Pressure -Offloading No -Treatment Response Procedure Tolerated Well -Debridement - Open, 1st 20sq cm Yes -Debridement, Open, ea addt'l 20sq cm 2 or part thereof Pain Scale: 0-10 Numeric Is Patient Pain Free? Yes - Nurse 3 - General Ulcer D/C NN Start: 11/12/21 15:16 Freq: Status: Active Protocol: Activity Type Activity Date Activity User E-Sign Co-Sign Detail Recorded Client Recorded Date Recorded By Document 11/12/21 16:31 DL [id number] 11/12/21 16:32 DL 11/12/21 16:31 Wound Care Nurse 3 #1 LLE lateral -Ulcer Cleansing Soap and Water -Foul Odor after Cleansing No -Primary Dressing Applied NonAdherent Contact Layer, Optilok 6.5x10 -Primary Dressing Covered/Secured with Dry Gauze & Roll Gauze, Secured with Tape -Optilok 6.5x10 2 Treatment Response Procedure Tolerated Well Pain Scale: 0-10 Numeric Is Patient Pain Free? 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 Debridement was performed today as noted. To wash leg every day with anti microbial soap and water. To gently dry with a clean towel. To continue with max absorption secondary dressing (ordered previously). To avoid placing adaptic over epithelialized skin. I recommend application of regular Adaptic as compared to Adaptic touch to allow moisture permeation. If she has excessive maceration and moisture on an intermittent basis. Her edema significantly fluctuates and therefore her dressing will need to fluctuate as needed. It is also okay to allow to rest with no dressings for 1 to 2 hours during the dressing change process. She has done well with this plan so far. I recommend application of advanced wound healing product, Apligraf. Ii is not clear if she will qualify for this. I do recommend this as a medical necessity to optimize healing to reduce the chance of limb loss. The indications, benefits, anticipated healing time and management were discussed. Prior authorization will be initiated. She has failed other conservative care measures and other prior advanced measures as well. This is a limb salvage case. She would like to wait until the first of the year for prior authorization because this is what her insurance plan resets. This seems reasonable and this is pending. Her pain is continued since her last visit but overall improved since her arterial intervention and recently her leg surgery. To follow-up with Dr. Morel as advised. It is noted she had angioplasty to the aorta and iliac level to reperfusion the left lower limb on 02-12-2021. Additional distal stenting also be considered. To follow-up as advised. It is noted she recently follow-up with Dr. Morel and per the patient he recommends additional venous intervention to help reduce swelling. She recently had this procedure done and will follow up with Dr. Morel scheduled. To wear compression garments as recommended by her vascular specialist. She understands periodic inflammation may occur now that she is recent post procedure. She was reassured no local signs of infection or purulence are noted today. She is under the management of infectious disease physician for recurrent leg infections and also for C. difficile management which is appreciated. She completed a course of iv cefepime cover deeper infection for duration of 6 weeks with a stop date of 03/24/2021. 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 She has not had a recent flare up. I advised her to maintain better control her edema with intermittent elevation and muscular contraction of the involved post polio syndrome leg. I recommend Tubigrip application and she relates she only able to tolerate this part of the time. It is okay for her to wear a properly fitted and protected shoe and to weight-bear as tolerated to the left lower extremity. She is advised wearing Candelario wrap at least. She takes Lasix as needed. Pain management referral was offered previously. Her most recent x-rays are negative for acute osseous changes. She does not have a diagnosis of osteomyelitis nor any other known qualifying diagnosis to proceed with hyperbaric oxygen therapy. To proceed with a proper control diet and nutrition supplementation to optimize healing. I answered all of her questions and explained the etiology of ulcer causes and the comprehensive wound healing plan. It is noted she is reducing her salt in her diet. She is at risk for limb loss. We discussed her overall treatment options include 1. Continued comprehensive wound care plan with most recent venous intervention 2. Palliative care program 3. Surgical amputation of the limb 4. Second opinion. She elects to proceed with option 1 at this time. To follow-up in 3 week. 30 minutes was spent on this encounter. This included face to face and non face to face care including preparing for the visit, reviewing the history, performing the exam, counseling and providing education to the patient, family, or caregiver, ordering medications/test/ procedures if indicated as documented, communicating with other healthcare providers, documenting information in the medical record, interpreting / sharing this information when indicated as documented, and care coordination. Note: [email or web address] speech recognition compressed gas tester software was used to create portions of this document. Sound
[2021-12-03 15:14] VITALS: BP 125/42; PULSE 91; RESP 16; TEMP 35.8; BMI 59.4
--- NOTE | 2021-12-03 17:12 | PCM.WC.PN ---
History of Present Illness Date of Service: 12/03/21 Chief Complaint: Left leg ulcer History of Wound: This 71-year-old female with multiple comorbidities was seen for follow up of left ulcer on the leg. She has had prior application of advanced wound healing products in clinic and also in the operating room including TheraSkin and amnio fill in a remote manner. She denies fever, chill, nausea, vomiting. She denies redness or odor. She also previously had vascular intervention (arterial) and recently followed up with her vascular surgeon for a series of additional venous intervention. She will follow up again in December. She has a procedure in her greater saphenous vein performed recently and is now being monitored by Dr. Morel. She has continued drainage and dressing issues. She is with her daughter today. She is amenable to proceed with Apligraf application today. Progress of Wound: Improving Objective Data Objective Data Vital Signs: Vital Signs Temp Pulse Resp BP 96.5 F L 91 16 125/42 H 12/03/21 15:14 12/03/21 15:14 12/03/21 15:14 12/03/21 15:14 Oxygen Flow Rate (L/min) 2 Oxygen Delivery Method Room Air Weight: 63.503 kg Body Mass Index (BMI) 59.4 Physical Exam Skin Skin Narrative: Now the ulcer is completely circumferential around the leg, there are continued improved skin islands that are notable and distal continued epithelialization. The initial ulcers are no longer deep and appear healthy and granular. There is no purulence, no erythema, no streaking, no odor appreciated today. There is no bogginess or fluctuance on palpation. Neuro Neuro Narrative: hypersensitivity to light touch not as notable today Debridement Note Debridement Note Wound debrided: left leg Wound Grade/Stage: Type of Debridement: Excisional debridement Anesthesia Used: 4% Lidocaine Solution Depth: in the subcutaneous layer Percentage of wound debrided: 100 Instrument Used: #15 blade Tissue Removed: fibrous, devitalized subcutaneous, biofilm, slough Severity: Fat Layer Exposed Amount of bleeding with debridement: Mild Bleeding Controlled with: Pressure Patient tolerated procedure: Patient tolerated procedure well Post-Debridement Measurements and Additional Note: Post-Debridement Measurements/Treatment TOMÁS - Nurse 1 - General Ulcer Assessment Start: 11/12/21 15:16 Freq: Status: Active Protocol: AYSHA Activity Type Activity Date Activity User E-Sign Co-Sign Detail Recorded Client Recorded Date Recorded By Document 11/12/21 15:16 DL [id number] 11/12/21 15:34 DL Document 12/03/21 15:14 [facility] [id number] 12/03/21 15:31 [facility] 11/12/21 12/03/21 15:16 15:14 - Today's Visit Information Type of service Follow-up Visit Follow-up Visit (Physician/ROOM SERVICE WAITER/WAITRESS (Physician/ROOM SERVICE WAITER/WAITRESS ) ) Arrival Mode Wheelchair Wheelchair Transfer Assistance None None Accompanied by DAUGHTER Patient Identification Verified (Name & Yes Yes ) Patient Requires Transmission-Based No Precautions Height and Weight Body Mass Index (BMI) 59.4 59.4 BMI Classification Obese Obese Vital Signs Temperature (97.8 F-99.1 F) 98.1 F 96.5 F L Temperature Source Temporal Temporal Pulse Rate (60-100) 95 91 Pulse Location Monitor Monitor Respiratory Rate (12-18) 22 H 16 Respiratory rate source Observation Observation Oxygen Delivery Method Room Air Blood Pressure (90/60-120/80) 119/52 L 125/42 H Blood Pressure Mean (mm Hg) 74 69 Source Monitor Monitor Position Sitting Blood Pressure Location Left Arm History Since Last Visit- (Skip if this is Patient's initial visit) Have you changed medications since your No No last visit? Any new allergies or adverse reactions No No Had a fall/change in ADL's that may No No increase risk of falls Signs or symptoms of abuse and/or No No neglect since last visit Have you been in the hospital since your No No last visit? Has dressing in place as prescribed Yes Yes Has compression in place as prescribed N/A Yes Has offloadiing in place as prescribed N/A N/A Experienced any changes in pain level or No No management Right Footwear Regular Shoe Pain Scale: 0-10 Numeric Is Patient Pain Free? Yes Yes - Nurse 1 - General Ulcer Measurement Start: 11/12/21 15:16 Freq: Status: Active Protocol: Activity Type Activity Date Activity User E-Sign Co-Sign Detail Recorded Client Recorded Date Recorded By Document 11/12/21 15:16 DL [id number] 11/12/21 15:34 DL Document 12/03/21 15:14 [facility] [id number] 01/26/22 15:31 BMF 11/12/21 12/03/21 15:16 15:14 Wound Center Nurse 1 #1 LLE lateral -Combined with other wound No -Current Size (cm) - Length 25 34 -Current Size (cm) - Width 28 24.5 -Current Size (cm) - Depth 0.1 0.1 -Total Square Cm 700 833.0 -Photo Taken No No -Epithelialization Small 1-33% -Tunneling No -Undermining/Tunneling No -Circular Undermining No -Exudate Amt Medium Medium -Exudate Type Serosanguineous Serosanguineous -Wound Margin Indistinct, Non Distinct, -Visible Outline Attached -Granulation Amt Medium (34-66%) Medium (34-66%) -Granulation Quality Red Red -Slough/Fibrin Yes -Necrosis Amt Medium (34-66%) Medium (34-66%) -Necrotic Tissue Type Adherent Slough Adherent Slough -Texture (Susana-wound Skin Appearance) Excoriation, Assessed, Scarring,Rash Excoriation, Scarring -Moisture (Susana-wound Skin Appearance) Weeping Assessed -Color (Susana-wound Skin Appearance) Erythema Assessed, Erythema -Temperature (Susana-wound Skin No Abnormality No Abnormality Appearance) (Pt Warm) (Pt Warm) -Tenderness on Palpation (Susana-wound No No Skin Appearance) -Ulcer Cleansing Soap and Water Soap and Water -Foul Odor after Cleansing Yes, Due to No Product Use -Anesthetic Used 4% Lidocaine 5% Lidocaine Solution,5% Gel Lidocaine Gel WC - Nurse 2 - General Ulcer CM Notes Start: 11/12/21 15:16 Freq: Status: Active Protocol: Activity Type Activity Date Activity User E-Sign Co-Sign Detail Recorded Client Recorded Date Recorded By Document 11/12/21 16:05 [id number] 11/12/21 16:19 JF Document 12/03/21 15:38 [id number] 12/03/21 16:00 JF Edit Result 12/03/21 15:38 JF (1) [id number] 12/03/21 16:25 JF (1) #1 LLE lateral - Expiration Date => 12/09/21 - Product Lot Number => [id number] - Percent Used => 100 - Lot number of Saline Used => [id number] 11/12/21 12/03/21 16:05 15:38 Wound Center Nurse 2 #1 LLE lateral -Time 16:06 15:38 -Correct Patient Yes Yes -Correct Side, Site, Position Yes Yes -Correct Procedure Yes Yes -Procedure Performed Yes Yes -Type of Procedure Debridement Debridement -Clinical Debridement Epidermis / Subcutaneous Dermis -Tissue Removed Epidermis, Subcutaneous Dermis -Post Debridement (cm) - Length 5 34 -Post Debridement (cm) - Width 10 24.5 -Post Debridement (cm) - Depth 0.1 0.1 -Total Square (Post) (cm) 50 833.0 -Area of Debridement (cm) - Length 5 34 -Area of Debridement (cm) - Width 10 24.5 -Total Square (Area) (cm) 50 833.0 -Tunneling No No -Undermining/Tunneling No No -Circular Undermining No No -Wound/Ulcer Outcome Not Healed Not Healed -Ulcer Cleansing Rinsed/ Rinsed/ Irrigated with Irrigated with Saline Saline -Foul Odor after Cleansing No No -Bioengineered Tissue No Yes -Type of Bioengineered Tissue Apligraf -Expiration Date 12/09/21 -Product Lot Number [id number] -Percent Used 100 -Lot number of Saline Used [id number] -Bleeding Controlled with Pressure Pressure -Offloading No No -Treatment Response Procedure Procedure Tolerated Well Tolerated Well -Debridement - Open, 1st 20sq cm Yes -Debridement, Open, ea addt'l 20sq cm 2 or part thereof -Debridement - Subq, 1st 20sq cm No -Apply Skin Sub - 1st 25 sq cm - Legs 1 -Apply Skin Sub - each addt'l 25 sq cm 1 - Legs -Apligraf (per sq cm) 44 Pain Scale: 0-10 Numeric Is Patient Pain Free? Yes Yes WC - Nurse 3 - General Ulcer D/C NN Start: 11/12/21 15:16 Freq: Status: Active Protocol: Activity Type Activity Date Activity User E-Sign Co-Sign Detail Recorded Client Recorded Date Recorded By Document 11/12/21 16:31 DL [id number] 11/12/21 16:32 DL Document 12/03/21 16:24 BM [id number] 12/03/21 16:26 BMF 11/12/21 12/03/21 16:31 16:24 Wound Care Nurse 3 #1 LLE lateral -Ulcer Cleansing Soap and Water -Foul Odor after Cleansing No -Primary Dressing Applied NonAdherent NonAdherent Contact Layer, Contact Layer, Optilok 6.5x10 Optilok 8x12, Other -Other Dressing APLIGRAPH; ABD -Primary Dressing Covered/Secured with Dry Gauze & Dry Gauze Roll Gauze, Secured with Tape -Other Covering DILSHAD GOODE APPLIES DRSG PER PT REQUEST -Optilok 6.5x10 2 -Optilok 8x12 2 Left -Compression Wrap Candelario Wrap Treatment Response Procedure Procedure Tolerated Well Tolerated Well Pain Scale: 0-10 Numeric Is Patient Pain Free? 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 Debridement was performed today as noted. To wash leg every day with anti microbial soap and water; but not the apligraft application site. To gently dry with a clean towel. To continue with max absorption secondary dressing (ordered previously). To avoid placing adaptic over epithelialized skin. I recommend application of regular Adaptic as compared to Adaptic touch to allow moisture permeation. If she has excessive maceration and moisture on an intermittent basis. Her edema significantly fluctuates and therefore her dressing will need to fluctuate as needed. It is also okay to allow to rest with no dressings for 1 to 2 hours during the dressing change process. She has done well with this plan so far. I recommend application of advanced wound healing product, Apligraf. I do recommend this as a medical necessity to optimize healing to reduce the chance of limb loss. The indications, benefits, anticipated healing time and management were discussed. Prior authorization will be initiated. She has failed other conservative care measures and other prior advanced measures as well. This is a limb salvage case. This was approved and applied today after verbal consent. 100% of the product was utilized. This was applied according to standard protocol and was further secured in place with a wound veil and Steri-Strips. To keep this clean, dry, and intact until follow-up visit. A secondary dressing was also applied. Her pain is continued since her last visit but overall improved since her arterial intervention and recently her leg surgery. To follow-up with Dr. Morel as advised. It is noted she had angioplasty to the aorta and iliac level to reperfusion the left lower limb on 02-12-2021. Additional distal stenting also be considered. To follow-up as advised. It is noted she recently follow-up with Dr. Morel and per the patient he recommends additional venous intervention to help reduce swelling. She recently had this procedure done and will follow up with Dr. Morel scheduled. To wear compression garments as recommended by her vascular specialist. She understands periodic inflammation may occur now that she is recent post procedure. She was reassured no local signs of infection or purulence are noted today. She is under the management of infectious disease physician for recurrent leg infections and also for C. difficile management which is appreciated. She completed a course of iv cefepime cover deeper infection for duration of 6 weeks with a stop date of 03/24/2021. 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 She has not had a recent flare up. I advised her to maintain better control her edema with intermittent elevation and muscular contraction of the involved post polio syndrome leg. I recommend Tubigrip application and she relates she only able to tolerate this part of the time. It is okay for her to wear a properly fitted and protected shoe and to weight-bear as tolerated to the left lower extremity. She is advised wearing Candelario wrap at least. She takes Lasix as needed. Pain management referral was offered previously. Her most recent x-rays are negative for acute osseous changes. She does not have a diagnosis of osteomyelitis nor any other known qualifying diagnosis to proceed with hyperbaric oxygen therapy. To proceed with a proper control diet and nutrition supplementation to optimize healing. I answered all of her questions and explained the etiology of ulcer causes and the comprehensive wound healing plan. It is noted she is reducing her salt in her diet. She is at risk for limb loss. We discussed her overall treatment options include 1. Continued comprehensive wound care plan with most recent venous intervention 2. Palliative care program 3. Surgical amputation of the limb 4. Second opinion. She elects to proceed with option 1 at this time. To follow-up in 1 week. Note: [employer] speech recognition chimney repairer software was used to create portions of this document. Sound
== END 2021-12-08 23:59 ==
LOC: WC 15:00
PROVIDERS: PCP Family Medicine; Referring Provider Podiatrist; Visit Provider Podiatrist
DX: I87.2 Venous insufficiency (chronic) (peripheral) (principal); L97.822 Non-pressure chronic ulcer of other part of left lower leg with fat layer exposed; I73.89 Other specified peripheral vascular diseases; Z68.43 Body mass index [BMI] 50.0-59.9, adult; G14 Postpolio syndrome; R60.0 Localized edema; M79.605 Pain in left leg; L85.3 Xerosis cutis; L30.9 Dermatitis, unspecified; Z79.02 Long term (current) use of antithrombotics/antiplatelets; Z79.890 Hormone replacement therapy; Z79.899 Other long term (current) drug therapy; E66.9 Obesity, unspecified
CPT/HCPCS: 15271; 15272; 97597; 97598; Q4101

== ENCOUNTER 2021-12-30 15:59 | Outpatient (CLI) | payer MEDICARE, OTHER, SELFPAY ==
--- NOTE | 2021-12-30 16:06 | CT_ITS ---
STUDY: CTA OF THE ABDOMINAL AORTA AND BILATERAL LOWER EXTREMITIES REASON FOR EXAM: Female, 71 years old. ATHEROSCLEROSIS W CLAUDICATION TECHNIQUE: Axial CT angiography multi-detector data acquisition was obtained following intravenous administration of 100 ml of Isovue 370 contrast. Axial images and MIP images were reconstructed from the axial data set. Post-processing of the angiographic images was performed, with multiplanar reformation and 3D reconstruction. MIPS images were obtained. Individualized dose optimization techniques were used for this CT. COMPARISON: 01.23.21. Descriptors of Narrowing: None (0%) Mild (< 50%) Moderate (50-70%) Severe (70-90%) Subtotal/Total Occlusion (90-100%) Non-Evaluable (technically non-diagnostic FINDINGS: There are atherosclerotic calcifications of visualized coronary arteries. The visualized portions of the heart are within normal limits. Normal liver. Normal gallbladder and extrahepatic biliary system. Normal spleen. Normal pancreas. Normal bilateral adrenal glands. Normal right kidney. Normal left kidney. Normal visualized stomach. Normal small intestine. Normal colon. There is non-visualization of the appendix. Normal inferior vena cava. Normal retroperitoneum. Normal urinary bladder. There is scoliosis of the lumbar spine. Normal abdominal wall. There are diffuse degenerative changes of the visualized lumbar spine. 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 There is scoliosis of the lumbar spine. Degenerative findings of the left hip. Demineralization of the bones. Abdominal aorta: There are calcifications of the abdominal aorta. This is consistent for atherosclerotic disease. There is no abdominal aortic aneurysm. Celiac and superior mesenteric arteries: There is mild diffuse narrowing. Inferior mesenteric artery: There is severe diffuse narrowing. Right renal artery(arteries): There is mild diffuse narrowing. Left renal artery(arteries): There is mild diffuse narrowing. 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 Right external iliac artery: There is mild diffuse narrowing. Right internal iliac artery: There is mild diffuse narrowing. Left common iliac artery: There is mild diffuse narrowing. Left external iliac artery: There is mild diffuse narrowing. Left internal iliac artery: There is severe diffuse narrowing. RIGHT LOWER EXTREMITY Right common femoral artery: No demonstrated narrowing. Right profundus femoris: No demonstrated narrowing. Right superficial femoral: No demonstrated narrowing. Right popliteal artery: No demonstrated narrowing. Right tibioperoneal trunk: No demonstrated narrowing. Right anterior tibial artery: No demonstrated narrowing. Right posterior tibial artery: No demonstrated narrowing. Right peroneal artery: No demonstrated narrowing. LEFT LOWER EXTREMITY Left common femoral artery: No demonstrated narrowing. Left profundus femoris: No demonstrated narrowing. Left superficial femoral: No demonstrated narrowing. Left popliteal artery: No demonstrated narrowing. Left tibioperoneal trunk: No demonstrated narrowing. Left anterior tibial artery: No demonstrated narrowing. Left posterior tibial artery: No demonstrated narrowing. Left peroneal artery: No demonstrated narrowing. 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 This is an improvement since the prior study where there was also occlusion of the left common iliac artery. Electronically Signed: Cy Ramirez MD at 20:00 EST , CT/CTA Abd w/Runoff W/WO Contrast
[2021-12-30 18:07] LABS: CREATININE FINGERSTICK 0.8 mg/dL (0.55-1.02); EGFR FINGERSTICK > 60.0000 mL/min (>60)
== END 2021-12-30 23:59 | disposition home or self-care (01) ==
LOC: CT 16:03
PROVIDERS: PCP Family Medicine; Referring Provider Family Medicine; Visit Provider Surgery Vascular Surgery
DX: I77.1 Stricture of artery (principal); I70.242 Atherosclerosis of native arteries of left leg with ulceration of calf; M35.9 Systemic involvement of connective tissue, unspecified; I70.213 Atherosclerosis of native arteries of extremities with intermittent claudication, bilateral legs; M79.605 Pain in left leg; I83.892 Varicose veins of left lower extremity with other complications; F41.9 Anxiety disorder, unspecified; E07.9 Disorder of thyroid, unspecified; E78.00 Pure hypercholesterolemia, unspecified; M79.89 Other specified soft tissue disorders; Z87.891 Personal history of nicotine dependence
CPT/HCPCS: 75635; Q9967

== ENCOUNTER 2021-12-31 15:00 | Outpatient (RCR) | payer MEDICARE, OTHER, SELFPAY ==
[2021-12-09 00:22] VITALS: BP 125/42; PULSE 91; RESP 16; TEMP 35.8; BMI 59.4
[2021-12-19 15:32] VITALS: BP 120/51; PULSE 91; RESP 18; TEMP 36.1; BMI 59.4
--- NOTE | 2021-12-19 17:04 | PCM.WC.PN ---
History of Present Illness Date of Service: 12/19/21 Chief Complaint: Left leg ulcer History of Wound: This 71-year-old female with multiple comorbidities was seen for follow up of left ulcer on the leg. She has had prior application of advanced wound healing products in clinic and also in the operating room including TheraSkin and amnio fill in a remote manner. She denies fever, chill, nausea, vomiting. She denies redness or odor. She also previously had vascular intervention (arterial) and recently followed up with her vascular surgeon for a series of additional venous intervention. She will follow up again noting an updated abdominal ultrasound scheduled for next Wednesday. She has a procedure in her greater saphenous vein performed recently and is now being monitored by Dr. Morel. She has continued drainage and dressing issues. She is with her daughter today. She is amenable to proceed with Apligraf application today. She is concerned about drainage and moisture collection. She is not sure she can follow-up next week. Progress of Wound: Improving proximal and stable otherwise Objective Data Objective Data Vital Signs: Vital Signs Temp Pulse Resp BP 97 F L 91 18 120/51 L 12/19/21 15:32 12/19/21 15:32 12/19/21 15:32 12/19/21 15:32 Oxygen Flow Rate (L/min) 2 Oxygen Delivery Method Room Air Weight: 63.503 kg Body Mass Index (BMI) 59.4 Physical Exam Skin Skin Narrative: Now the ulcer is completely circumferential around the leg, there are continued improved skin islands that are notable and distal continued epithelialization. The skin is even toughening and remodeling maximally and posteriorly in a good manner. The initial ulcers are no longer deep and appear healthy and granular. There is no purulence, no erythema, no streaking, no odor appreciated today. There is no bogginess or fluctuance on palpation. Most of the moisture is noted at the anterior distal aspect where there is a granular healthy base Neuro Neuro Narrative: hypersensitivity to light touch not as notable today Debridement Note Debridement Note Wound debrided: left leg Wound Grade/Stage: Type of Debridement: Excisional debridement (anterior distal aspect debrided 8x8x0.1 cm (post) and pre 7.9 x 7.9 x 0.1 (pre). the remainder was debrided in selective manner) Anesthesia Used: 4% Lidocaine Solution Depth: in the subcutaneous layer Percentage of wound debrided: 100 Instrument Used: #15 blade and Forceps Tissue Removed: fibrous, devitalized subcutaneous, biofilm, slough Severity: Fat Layer Exposed Amount of bleeding with debridement: Mild Bleeding Controlled with: Pressure Patient tolerated procedure: Patient tolerated procedure well Post-Debridement Measurements and Additional Note: Post-Debridement Measurements/Treatment WC - Nurse 1 - General Ulcer Assessment Start: 12/19/21 15:27 Freq: Status: Active Protocol: AYSHA Activity Type Activity Date Activity User E-Sign Co-Sign Detail Recorded Client Recorded Date Recorded By Document 12/19/21 15:32 MT [id number] 12/19/21 15:51 MT Edit Result 12/19/21 15:32 MT (1) [id number] 12/19/21 15:51 MT (1) Pulse Rate (60-100) => 91 Blood Pressure (90/60-120/80) => 120/51 L Blood Pressure Mean (mm Hg) => 74 12/19/21 15:32 WC - Today's Visit Information Type of service 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 ) Arrival Mode Wheelchair Accompanied by brian Patient Identification Verified (Name & Yes ) Height and Weight Body Mass Index (BMI) 59.4 BMI Classification Obese Vital Signs Temperature (97.8 F-99.1 F) 97 F L Temperature Source Temporal Pulse Rate (60-100) 91 Pulse Location Monitor Respiratory Rate (12-18) 18 Respiratory rate source Observation Oxygen Delivery Method Room Air Blood Pressure (90/60-120/80) 120/51 L Blood Pressure Mean (mm Hg) 74 Source Monitor Position Sitting Blood Pressure Location Left Arm History Since Last Visit- (Skip if this is Patient's initial visit) Has dressing in place as prescribed Yes Has compression in place as prescribed Yes Has offloadiing in place as prescribed Yes Experienced any changes in pain level or Yes management Left Footwear Regular Shoe Right Footwear Regular Shoe Pain Scale: 0-10 Numeric Is Patient Pain Free? No Left Leg -Description Sharp,Dull, Throbbing, Tightness, Aching,Pressure -Duration (hours) Chronic -Pain Behavior Restlessness -Alleviating Factors/Interventions Medication, Medicate when due WC - Nurse 1 - General Ulcer Measurement Start: 12/19/21 15:27 Freq: Status: Active Protocol: Activity Type Activity Date Activity User E-Sign Co-Sign Detail Recorded Client Recorded Date Recorded By Document 12/19/21 15:32 [facility] [id number] 12/19/21 15:51 VA 12/19/21 15:32 Wound Center Nurse 1 #1 LLE lateral -Current Size (cm) - Length 23.5 -Current Size (cm) - Width 32.0 -Current Size (cm) - Depth 0.2 -Total Square Cm 752.00 -Exudate Amt Large -Exudate Type Serosanguineous -Granulation Amt Medium (34-66%) -Granulation Quality Pale,[place] -Necrosis Amt Medium (34-66%) -Necrotic Tissue Type Adherent Slough -Texture (Susana-wound Skin Appearance) Assessed -Moisture (Susana-wound Skin Appearance) Assessed -Color (Susana-wound Skin Appearance) Assessed -Temperature (Susana-wound Skin No Abnormality Appearance) (Pt Warm) -Tenderness on Palpation (Susana-wound No Skin Appearance) -Ulcer Cleansing Rinsed/ Irrigated with Saline -Foul Odor after Cleansing No -Anesthetic Used 4% Lidocaine Solution - Nurse 3 - General Ulcer D/C NN Start: 12/19/21 15:27 Freq: Status: Active Protocol: Activity Type Activity Date Activity User E-Sign Co-Sign Detail Recorded Client Recorded Date Recorded By Document 12/19/21 16:32 [facility] [id number] 12/19/21 16:33 [facility] 12/19/21 16:32 Wound Care Nurse 3 -Primary Dressing Applied NonAdherent Contact Layer, Optilok 8x12 -Other Dressing APLIGRAPH -Primary Dressing Covered/Secured with Dry Gauze & Roll Gauze, Secured with Tape,Other -Other Covering DRSG PER DILSHAD GOODE -Optilok 8x12 2 Left -Compression Wrap Candelario Wrap Treatment Response Procedure Tolerated Well Pain Scale: 0-10 Numeric Is Patient Pain Free? 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 Debridement was performed today as noted. To wash leg every day with anti microbial soap and water; but not the apligraft application site. To gently dry with a clean towel. To continue with max absorption secondary dressing (ordered previously). To avoid placing adaptic over epithelialized skin. I recommend application of regular Adaptic as compared to Adaptic touch to allow moisture permeation. If she has excessive maceration and moisture on an intermittent basis. Her edema significantly fluctuates and therefore her dressing will need to fluctuate as needed. It is okay for her to remove the residual allograft in 1 week (next Wednesday) to avoid excessive moisture buildup. She is also unable to follow-up next week and will therefore follow-up the following Wednesday. Otherwise to keep this Apligraf clean and intact. I recommend application of advanced wound healing product, Apligraf. I do recommend this as a medical necessity to optimize healing to reduce the chance of limb loss. The indications, benefits, anticipated healing time and management were discussed. Prior authorization will be initiated. She has failed other conservative care measures and other prior advanced measures as well. This is a limb salvage case. This was approved and applied today after verbal consent. 100% of the product was utilized (left leg). This was applied according to standard protocol and was further secured in place with a wound veil and Steri-Strips. To keep this clean, dry, and intact until follow-up visit. A secondary dressing was also applied. Her pain is continued since her last visit but overall improved since her arterial intervention and recently her leg surgery. To follow-up with Dr. Morel as advised. It is noted she had angioplasty to the aorta and iliac level to reperfusion the left lower limb on 02-12-2021. Additional distal stenting also be considered. To follow-up as advised. It is noted she recently follow-up with Dr. Morel and per the patient he recommends additional venous intervention to help reduce swelling. She recently had this procedure done and will follow up with Dr. Morel scheduled. To wear compression garments as recommended by her vascular specialist. She understands periodic inflammation may occur now that she is recent post procedure. She has an updated abdominal Doppler scheduled next week and she has venous insufficiency. To continue to follow-up as advised. She was reassured no local signs of infection or purulence are noted today. She is under the management of infectious disease physician for recurrent leg infections and also for C. difficile management which is appreciated. She completed a course of iv cefepime cover deeper infection for duration of 6 weeks with a stop date of 03/24/2021. 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 She has not had a recent flare up. I advised her to maintain better control her edema with intermittent elevation and muscular contraction of the involved post polio syndrome leg. I recommend Tubigrip application and she relates she only able to tolerate this part of the time. It is okay for her to wear a properly fitted and protected shoe and to weight-bear as tolerated to the left lower extremity. She is advised wearing Candelario wrap at least. She takes Lasix as needed. Pain management referral was offered previously. Her most recent x-rays are negative for acute osseous changes. She does not have a diagnosis of osteomyelitis nor any other known qualifying diagnosis to proceed with hyperbaric oxygen therapy. To proceed with a proper control diet and nutrition supplementation to optimize healing. I answered all of her questions and explained the etiology of ulcer causes and the comprehensive wound healing plan. It is noted she is reducing her salt in her diet. She is at risk for limb loss. We discussed her overall treatment options include 1. Continued comprehensive wound care plan with most recent venous intervention 2. Palliative care program 3. Surgical amputation of the limb 4. Second opinion. She elects to proceed with option 1 at this time. To follow-up in 2 weeks. Note: [facility] speech recognition regional clinical research associate software was used to create portions of this document. Sound
[2021-12-31 14:57] VITALS: BP 114/52; PULSE 95; RESP 18; TEMP 36.4; BMI 59.4
--- NOTE | 2021-12-31 15:52 | PN.PCM_ITS ---
History of Present Illness Date of Service: 12/31/21 Chief Complaint: Left leg ulcer History of Wound: This 71-year-old female with multiple comorbidities was seen for follow up of left ulcer on the leg. She has had prior application of advanced wound healing products in clinic and also in the operating room including TheraSkin and amnio fill in a remote manner. She denies fever, chill, nausea, vomiting. She denies redness or odor. She also previously had vascular intervention (arterial) and had an updated diagnostic test this last week. She will follow-up next week on Wednesday with Dr. Morel. She is with her sister today. She is amenable to proceed with Apligraf application today. Progress of Wound: Improving proximal and stable otherwise Objective Data Objective Data Vital Signs: Vital Signs Temp Pulse Resp BP 97.6 F L 95 18 114/52 L 12/31/21 14:57 12/31/21 14:57 12/31/21 14:57 12/31/21 14:57 Oxygen Flow Rate (L/min) 2 Oxygen Delivery Method Room Air Weight: 63.503 kg Body Mass Index (BMI) 59.4 Physical Exam Skin Skin Narrative: Now the ulcer is completely circumferential around the leg, there are continued improved skin islands that are notable and distal continued epithelialization. The skin is even toughening and remodeling maximally and posteriorly in a good manner. The initial ulcers are no longer deep and appear healthy and granular. There is no purulence, no erythema, no streaking, no odor appreciated today. There is no bogginess or fluctuance on palpation. Most of the moisture is noted at the anterior distal aspect where there is a granular healthy base Neuro Neuro Narrative: hypersensitivity to light touch not as notable today Debridement Note Debridement Note Wound debrided: right leg Wound Grade/Stage: Type of Debridement: Excisional debridement Anesthesia Used: 4% Lidocaine Solution Depth: in the subcutaneous layer Percentage of wound debrided: 10 Instrument Used: #15 blade and Forceps Tissue Removed: fibrous, devitalized subcutaneous, biofilm, slough Severity: Fat Layer Exposed Amount of bleeding with debridement: Mild Bleeding Controlled with: Pressure Patient tolerated procedure: Patient tolerated procedure well Post-Debridement Measurements and Additional Note: Post-Debridement Measurements/Treatment TOMÁS - Nurse 1 - General Ulcer Assessment Start: 12/19/21 15:27 Freq: Status: Active Protocol: AYSHA Activity Type Activity Date Activity User E-Sign Co-Sign Detail Recorded Client Recorded Date Recorded By Document 12/19/21 15:32 MT [id number] 12/19/21 15:51 MT Edit Result 12/19/21 15:32 MT (1) [id number] 12/19/21 15:51 MT Document 12/31/21 14:57 BMF [id number] 12/31/21 15:14 BMF (1) Pulse Rate (60-100) => 91 Blood Pressure (90/60-120/80) => 120/51 L Blood Pressure Mean (mm Hg) => 74 12/19/21 12/31/21 15:32 14:57 WC - Today's Visit Information Type of service Follow-up Visit Follow-up Visit (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/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 [employer] (Physician/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 [employer] ) ) Arrival Mode Wheelchair Wheelchair Transfer Assistance None Accompanied by brian rhodes Patient Identification Verified (Name & Yes Yes ) Patient Requires Transmission-Based No Precautions Height and Weight Body Mass Index (BMI) 59.4 59.4 BMI Classification Obese Obese Vital Signs Temperature (97.8 F-99.1 F) 97 F L 97.6 F L Temperature Source Temporal Temporal Pulse Rate (60-100) 91 95 Pulse Location Monitor Monitor Respiratory Rate (12-18) 18 18 Respiratory rate source Observation Observation Oxygen Delivery Method Room Air Room Air Blood Pressure (90/60-120/80) 120/51 L 114/52 L Blood Pressure Mean (mm Hg) 74 72 Source Monitor Monitor Position Sitting Sitting Blood Pressure Location Left Arm History Since Last Visit- (Skip if this is Patient's initial visit) Have you changed medications since your No last visit? Any new allergies or adverse reactions No Had a fall/change in ADL's that may No increase risk of falls Signs or symptoms of abuse and/or No neglect since last visit Have you been in the hospital since your No last visit? Has dressing in place as prescribed Yes Yes Has compression in place as prescribed Yes Yes Has offloadiing in place as prescribed Yes N/A Experienced any changes in pain level or Yes No management Left Footwear Regular Shoe Other Footwear (Comment) Right Footwear Regular Shoe Regular Shoe Other Footwear stocking lt foot Pain Scale: 0-10 Numeric Is Patient Pain Free? No Yes Left Leg -Description Sharp,Dull, Throbbing, Tightness, Aching,Pressure -Duration (hours) Chronic -Pain Behavior Restlessness -Alleviating Factors/Interventions Medication, Medicate when due WC - Nurse 1 - General Ulcer Measurement Start: 12/19/21 15:27 Freq: Status: Active Protocol: Activity Type Activity Date Activity User E-Sign Co-Sign Detail Recorded Client Recorded Date Recorded By Document 12/19/21 15:32 NV [id number] 12/19/21 15:51 NV Document 12/31/21 14:57 [facility] [id number] 12/31/21 15:14 [facility] 12/19/21 12/31/21 15:32 14:57 Wound Center Nurse 1 #1 LLE lateral -Combined with other wound No -Current Size (cm) - Length 23.5 26 -Current Size (cm) - Width 32.0 33.5 -Current Size (cm) - Depth 0.2 0.2 -Total Square Cm 752.00 871.0 -Date of Last Picture (Recall this 12/31/21 field) -Photo Taken Yes -Epithelialization None Present -Tunneling No -Undermining/Tunneling No -Circular Undermining No -Exudate Amt Large Large -Exudate Type Serosanguineous Serosanguineous -Wound Margin Distinct, Outline Attached -Granulation Amt Medium (34-66%) Large (67-100%) -Granulation Quality Pale,[place] Red -Slough/Fibrin Yes -Necrosis Amt Medium (34-66%) Small (1-33%) -Necrotic Tissue Type Adherent Slough Adherent Slough -Texture (Susana-wound Skin Appearance) Assessed Assessed, Excoriation, Scarring -Moisture (Susana-wound Skin Appearance) Assessed Assessed, Weeping -Color (Susana-wound Skin Appearance) Assessed Assessed, Erythema -Temperature (Susana-wound Skin No Abnormality No Abnormality Appearance) (Pt Warm) (Pt Warm) -Tenderness on Palpation (Susana-wound No No Skin Appearance) -Ulcer Cleansing Rinsed/ Soap and Water Irrigated with Saline -Foul Odor after Cleansing No No -Anesthetic Used 4% Lidocaine 4% Lidocaine Solution Solution,5% Lidocaine Gel WC - Nurse 2 - General Ulcer CM Notes Start: 12/19/21 15:27 Freq: Status: Active Protocol: Activity Type Activity Date Activity User E-Sign Co-Sign Detail Recorded Client Recorded Date Recorded By Document 12/19/21 15:36 PL [id number] 12/20/21 15:40 PL Document 12/31/21 15:25 [id number] 12/31/21 15:40 FELISHA 12/19/21 12/31/21 15:36 15:25 Wound Center Nurse 2 #1 LLE lateral -Time 16:05 15:26 -Correct Patient Yes Yes -Correct Side, Site, Position Yes Yes -Correct Procedure Yes Yes -Procedure Performed Yes Yes -Type of Procedure Debridement Incision & Drainage -Clinical Debridement Subcutaneous Subcutaneous -Tissue Removed Subcutaneous Subcutaneous -Post Debridement (cm) - Length 23.5 26 -Post Debridement (cm) - Width 32.0 33.5 -Post Debridement (cm) - Depth 0.2 0.2 -Total Square (Post) (cm) 752.00 871.0 -Area of Debridement (cm) - Length 23.5 26 -Area of Debridement (cm) - Width 32.0 33.5 -Total Square (Area) (cm) 752.00 871.0 -Tunneling No No -Undermining/Tunneling No No -Circular Undermining No No -Wound/Ulcer Outcome Not Healed Not Healed -Ulcer Cleansing Rinsed/ Rinsed/ Irrigated with Irrigated with Saline Saline -Foul Odor after Cleansing No No -Bioengineered Tissue Yes Yes -Type of Bioengineered Tissue Apligraf Apligraf -Expiration Date 12/25/21 01/07/22 -Product Lot Number [id number] -Percent Used 100 100 -Lot number of Saline Used [id number] -Bleeding Controlled with Pressure Pressure -Offloading No -Treatment Response Procedure Procedure Tolerated Well Tolerated Well -Debridement - Subq, 1st 20sq cm No No -Apply Skin Sub - 1st 25 sq cm - Legs 1 -Apply Skin Sub - each addt'l 25 sq cm 1 3 - Legs -Apply Skin Sub - 1st 25 sq cm - Feet 1 -Apligraf (per sq cm) 44 44 Pain Scale: 0-10 Numeric Is Patient Pain Free? Yes Yes WC - Nurse 3 - General Ulcer D/C NN Start: 12/19/21 15:27 Freq: Status: Active Protocol: Activity Type Activity Date Activity User E-Sign Co-Sign Detail Recorded Client Recorded Date Recorded By Document 12/19/21 16:32 [facility] [id number] 12/19/21 16:33 [facility] 12/19/21 16:32 Wound Care Nurse 3 #1 LLE lateral -Primary Dressing Applied NonAdherent Contact Layer, Optilok 8x12 -Other Dressing APLIGRAPH -Primary Dressing Covered/Secured with Dry Gauze & Roll Gauze, Secured with Tape,Other -Other Covering DRSG PER DILSHAD GOODE -Optilok 8x12 2 Left -Compression Wrap Candelario Wrap Treatment Response Procedure Tolerated Well Pain Scale: 0-10 Numeric Is Patient Pain Free? 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 Debridement was performed today as noted. To wash leg every day with anti microbial soap and water; but not the apligraft application site. To gently dry with a clean towel. To continue with max absorption secondary dressing (ordered previously). To avoid placing adaptic over epithelialized skin. I recommend application of regular Adaptic as compared to Adaptic touch to allow moisture permeation. If she has excessive maceration and moisture on an intermittent basis. Her edema significantly fluctuates and therefore her dressing will need to fluctuate as needed. It is okay for her to remove the residual allograft in 1 week (next Wednesday) to avoid excessive moisture buildup. She is also unable to follow-up next week and will therefore follow-up the following Wednesday. Otherwise to keep this Apligraf clean and intact. I recommend application of advanced wound healing product, Apligraf. I do recommend this as a medical necessity to optimize healing to reduce the chance of limb loss. The indications, benefits, anticipated healing time and management were discussed. Prior authorization will be initiated. She has fa iled other conservative care measures and other prior advanced measures as well. This is a limb salvage case. This was approved and applied today after verbal consent. 100% of the product was utilized (left leg). This was applied according to standard protocol and was further secured in place with a wound veil and Steri-Strips. To keep this clean, dry, and intact until follow-up visit. A secondary dressing was also applied. Her pain is continued since her last visit but overall improved since her arterial intervention and recently her leg surgery. To follow-up with Dr. Morel as advised. It is noted she had angioplasty to the aorta and iliac level to reperfusion the left lower limb on 02-12-2021. Additional distal stenting also be considered. To follow-up as advised. It is noted she recently follow-up with Dr. Morel and per the patient he recommends additional venous intervention to help reduce swelling. She recently had this procedure done and will follow up with Dr. Morel scheduled. To wear compression garments as recommended by her vascular specialist. She understands periodic inflammation may occur now that she is recent post procedure. She had an updated abdominal Doppler and will follow up with Dr. Morel next week. To continue to follow-up as advised. She was reassured no local signs of infection or purulence are noted today. She is under the management of infectious disease physician for recurrent leg infections and also for C. difficile management which is appreciated. She completed a course of iv cefepime cover deeper infection for duration of 6 weeks with a stop date of 03/24/2021. 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 She has not had a recent flare up. I advised her to maintain better control her edema with intermittent elevation and muscular contraction of the involved post polio syndrome leg. I recommend Tubigrip application and she relates she only able to tolerate this part of the time. It is okay for her to wear a properly fitted and protected shoe and to weight-bear as tolerated to the left lower extremity. She is advised wearing Candelario wrap at least. She takes Lasix as needed. Pain management referral was offered previously. Her most recent x-rays are negative for acute osseous changes. She does not have a diagnosis of osteomyelitis nor any other known qualifying diagnosis to proceed with hyperbaric oxygen therapy. To proceed with a proper control diet and nutrition supplementation to optimize healing. I answered all of her questions and explained the etiology of ulcer causes and the comprehensive wound healing plan. It is noted she is reducing her salt in her diet. She is at risk for limb loss. We discussed her overall treatment options include 1. Continued comprehensive wound care plan with most recent venous intervention 2. Palliative care program 3. Surgical amputation of the limb 4. Second opinion. She elects to proceed with option 1 at this time. To follow-up in 2 weeks. Note: [employer] speech recognition lead massage therapist software was used to create portions of this document. Sound
== END 2022-01-05 23:59 | disposition home or self-care (01) ==
LOC: WC 15:00
PROVIDERS: PCP Family Medicine; Referring Provider Podiatrist; Visit Provider Podiatrist
DX: L97.922 Non-pressure chronic ulcer of unspecified part of left lower leg with fat layer exposed (principal); I73.9 Peripheral vascular disease, unspecified; R60.0 Localized edema; I87.2 Venous insufficiency (chronic) (peripheral); L30.9 Dermatitis, unspecified; M79.605 Pain in left leg; G14 Postpolio syndrome; L85.3 Xerosis cutis; Z79.02 Long term (current) use of antithrombotics/antiplatelets; Z79.899 Other long term (current) drug therapy
CPT/HCPCS: 15271; 15272; 15275; Q4101

== ENCOUNTER 2022-01-28 15:15 | Outpatient (RCR) | payer MEDICARE, OTHER, SELFPAY ==
[2022-01-06 00:23] VITALS: BP 114/52; PULSE 95; RESP 18; TEMP 36.4; BMI 59.4
[2022-01-14 15:22] VITALS: BP 112/50; PULSE 92; RESP 18; TEMP 37; BMI 59.4
--- NOTE | 2022-01-14 16:09 | PCM.WC.PN ---
History of Present Illness Date of Service: 01/14/22 Chief Complaint: Left leg ulcer History of Wound: This 71-year-old female with multiple comorbidities was seen for follow up of left ulcer on the leg. She has had prior application of advanced wound healing products in clinic and also in the operating room including TheraSkin and amnio fill in a remote manner. She denies fever, chill, nausea, vomiting. She denies redness or odor. She also previously had vascular intervention (arterial) and had an updated diagnostic test this last week. She will follow-up next week on Wednesday with Dr. Morel. She is with her sister today. She is amenable to proceed with Apligraf application today. Progress of Wound: Improving with more epithelialization islands Objective Data Objective Data Vital Signs: Vital Signs Temp Pulse Resp BP 98.6 F 92 18 112/50 L 01/14/22 15:22 01/14/22 15:22 01/14/22 15:22 01/14/22 15:22 Oxygen Flow Rate (L/min) 2 Weight: 63.503 kg Body Mass Index (BMI) 59.4 Physical Exam Skin Skin Narrative: Now the ulcer is completely circumferential around the leg, there are continued improved and increased skin islands that are notable and distal continued epithelialization. The skin is even toughening and remodeling maximally and posteriorly in a good manner. The initial ulcers are no longer deep and appear healthy and granular. There is no purulence, no erythema, no streaking, no odor appreciated today. There is no bogginess or fluctuance on palpation. Neuro Neuro Narrative: hypersensitivity to light touch not as notable today Debridement Note Debridement Note Wound debrided: left leg Wound Grade/Stage: Type of Debridement: Excisional debridement Anesthesia Used: 4% Lidocaine Solution Depth: in the subcutaneous layer Percentage of wound debrided: 10 Instrument Used: #15 blade Tissue Removed: fibrous, devitalized subcutaneous, biofilm, slough Severity: Fat Layer Exposed Amount of bleeding with debridement: Mild Bleeding Controlled with: Pressure Patient tolerated procedure: Patient tolerated procedure well Post-Debridement Measurements and Additional Note: Post-Debridement Measurements/Treatment WC - Nurse 1 - General Ulcer Assessment Start: 01/14/22 15:22 Freq: Status: Active Protocol: AYSHA Activity Type Activity Date Activity User E-Sign Co-Sign Detail Recorded Client Recorded Date Recorded By Document 01/14/22 15:22 [id number] 01/14/22 15:33 RB 01/14/22 15:22 WC - Today's Visit Information Type of service Follow-up Visit (Physician/INSTRUCTOR OF NURSING ) Arrival Mode Wheelchair Transfer Assistance None Patient Identification Verified (Name & Yes ) Patient Requires Transmission-Based No Precautions Height and Weight Body Mass Index (BMI) 59.4 BMI Classification Obese Vital Signs Temperature (97.8 F-99.1 F) 98.6 F Temperature Source Temporal Pulse Rate (60-100) 92 Pulse Location Monitor Respiratory Rate (12-18) 18 Respiratory rate source Observation Blood Pressure (90/60-120/80) 112/50 L Blood Pressure Mean (mm Hg) 70 Source Monitor Position Sitting Blood Pressure Location Left Arm History Since Last Visit- (Skip if this is Patient's initial visit) Have you changed medications since your No last visit? Any new allergies or adverse reactions No Had a fall/change in ADL's that may No increase risk of falls Signs or symptoms of abuse and/or No neglect since last visit Have you been in the hospital since your No last visit? Has dressing in place as prescribed Yes Has compression in place as prescribed No Has offloadiing in place as prescribed No Experienced any changes in pain level or No management Pain Scale: 0-10 Numeric Is Patient Pain Free? Yes - Nurse 1 - General Ulcer Measurement Start: 01/14/22 15:22 Freq: Status: Active Protocol: Activity Type Activity Date Activity User E-Sign Co-Sign Detail Recorded Client Recorded Date Recorded By Document 01/14/22 15:22 [id number] 01/14/22 15:33 RB 01/14/22 15:22 Wound Center Nurse 1 #1 LLE lateral -Combined with other wound No -Current Size (cm) - Length 25.2 -Current Size (cm) - Width 31.6 -Current Size (cm) - Depth 0.2 -Total Square Cm 796.32 -Tunneling No -Undermining/Tunneling No -Circular Undermining No -Exudate Amt Large -Exudate Type Serosanguineous -Wound Margin Distinct, Outline Attached -Granulation Amt Small (1-33%) -Granulation Quality [place] -Slough/Fibrin Yes -Necrosis Amt Large (67-100%) -Necrotic Tissue Type Adherent Slough -Structure Exposed N/A -Texture (Susana-wound Skin Appearance) Assessed, Friable -Moisture (Susana-wound Skin Appearance) Assessed -Color (Susana-wound Skin Appearance) Assessed -Temperature (Susana-wound Skin No Abnormality Appearance) (Pt Warm) -Tenderness on Palpation (Susana-wound No Skin Appearance) -Ulcer Cleansing Wound Cleanser -Foul Odor after Cleansing No -Anesthetic Used 4% Lidocaine Solution,5% Lidocaine Gel Lower Limb Edema Present Yes Left Calf (cm) 31.6 Left Ankle (cm) 21.7 WC - Nurse 2 - General Ulcer CM Notes Start: 01/14/22 15:22 Freq: Status: Active Protocol: Activity Type Activity Date Activity User E-Sign Co-Sign Detail Recorded Client Recorded Date Recorded By Document 01/14/22 15:48 FELISHA [id number] 01/14/22 15:55 FELISHA 01/14/22 15:48 Wound Center Nurse 2 #1 LLE lateral -Time 15:49 -Correct Patient Yes -Correct Side, Site, Position Yes -Correct Procedure Yes -Procedure Performed Yes -Type of Procedure Debridement -Clinical Debridement Subcutaneous -Tissue Removed Subcutaneous -Post Debridement (cm) - Length 8.5 -Post Debridement (cm) - Width 5 -Post Debridement (cm) - Depth 0.2 -Total Square (Post) (cm) 42.5 -Area of Debridement (cm) - Length 8.5 -Area of Debridement (cm) - Width 5 -Total Square (Area) (cm) 42.5 -Tunneling No -Undermining/Tunneling No -Circular Undermining No -Wound/Ulcer Outcome Not Healed -Ulcer Cleansing Rinsed/ Irrigated with Saline -Foul Odor after Cleansing No -Bioengineered Tissue Yes -Type of Bioengineered Tissue Apligraf -Expiration Date 01/23/22 -Product Lot Number [id number] -Percent Used 100 -Lot number of Saline Used [id number] -Bleeding Controlled with Pressure -Offloading No -Treatment Response Procedure Tolerated Well -Debridement - Subq, 1st 20sq cm No -Debridement, SubQ, ea addt'l 20sq cm 2 or part thereof -Apply Skin Sub - 1st 25 sq cm - Legs 1 -Apply Skin Sub - each addt'l 25 sq cm 1 - Legs -Apligraf (per sq cm) 44 Pain Scale: 0-10 Numeric Is Patient Pain Free? Yes - Nurse 3 - General Ulcer D/C NN Start: 01/14/22 15:22 Freq: Status: Active Protocol: Activity Type Activity Date Activity User E-Sign Co-Sign Detail Recorded Client Recorded Date Recorded By Document 01/14/22 16:00 RB [id number] 01/14/22 16:01 RB 01/14/22 16:00 Wound Care Nurse 3 #1 LLE lateral -Ulcer Cleansing Rinsed/ Irrigated with Saline -Primary Dressing Applied NonAdherent Contact Layer -Primary Dressing Covered/Secured with Dry Gauze,Dry Gauze & Roll Gauze,Secured with Tape Left -Other CANDELARIO Treatment Response Procedure Tolerated Well Pain Scale: 0-10 Numeric Is Patient Pain Free? 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 Debridement was performed today as noted. To wash leg every day with anti microbial soap and water; but not the apligraft application site. To gently dry with a clean towel. To continue with max absorption secondary dressing (ordered previously). To avoid placing adaptic over epithelialized skin. I recommend application of regular Adaptic as compared to Adaptic touch to allow moisture permeation. If she has excessive maceration and moisture on an intermittent basis; not noted today. Her edema significantly fluctuates and therefore her dressing will need to fluctuate as needed. It is okay for her to remove the residual apligraft in 1 week (next Wednesday) to avoid excessive moisture buildup. She is also unable to follow-up next week and will therefore follow-up the following Wednesday. Otherwise to keep this Apligraf clean and intact. I recommend application of advanced wound healing product, Apligraf. I do recommend this as a medical necessity to optimize healing to reduce the chance of limb loss. The indications, benefits, anticipated healing time and management were discussed. Prior authorization will be initiated. She has failed other conservative care measures and other prior advanced measures as well. This is a limb salvage case. This was approved and applied today after verbal consent. 100% of the product was utilized (left leg). This was applied according to standard protocol and was further secured in place with a wound veil and Steri-Strips. To keep this clean, dry, and intact until follow-up visit. A secondary dressing was also applied. Her pain is continued since her last visit but overall improved since her arterial intervention and recently her leg surgery. To follow-up with Dr. Morel as advised. It is noted she had angioplasty to the aorta and iliac level to reperfusion the left lower limb on 02-12-2021. Additional distal stenting also be considered. To follow-up as advised. It is noted she recently follow-up with Dr. Morel and per the patient he recommends additional venous intervention to help reduce swelling. She recently had this procedure done and will follow up with Dr. Morel scheduled. To wear compression garments as recommended by her vascular specialist. She understands periodic inflammation may occur now that she is recent post procedure. She had an updated abdominal Doppler and will follow up with Dr. Morel next week. To continue to follow-up as advised. She was reassured no local signs of infection or purulence are noted today. She is under the management of infectious disease physician for recurrent leg infections and also for C. difficile management which is appreciated. She completed a course of iv cefepime cover deeper infection for duration of 6 weeks with a stop date of 03/24/2021. 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 She has not had a recent flare up. I advised her to maintain better control her edema with intermittent elevation and muscular contraction of the involved post polio syndrome leg. I recommend Tubigrip application and she relates she only able to tolerate this part of the time. It is okay for her to wear a properly fitted and protected shoe and to weight-bear as tolerated to the left lower extremity. She is advised wearing Candelario wrap at least. She takes Lasix as needed. Pain management referral was offered previously. Her most recent x-rays are negative for acute osseous changes. She does not have a diagnosis of osteomyelitis nor any other known qualifying diagnosis to proceed with hyperbaric oxygen therapy. To proceed with a proper control diet and nutrition supplementation to optimize healing. I answered all of her questions and explained the etiology of ulcer causes and the comprehensive wound healing plan. It is noted she is reducing her salt in her diet. She is at risk for limb loss. We discussed her overall treatment options include 1. Continued comprehensive wound care plan with most recent venous intervention 2. Palliative care program 3. Surgical amputation of the limb 4. Second opinion. She elects to proceed with option 1 at this time. To follow-up in 2 weeks at the wound healing center. Note: [employer] speech recognition telesales representative software was used to create portions of this document. Sound
[2022-01-28 15:19] VITALS: BP 149/78; PULSE 91; RESP 20; TEMP 36; BMI 59.4
--- NOTE | 2022-01-28 16:02 | PCM.WC.PN ---
History of Present Illness Date of Service: 01/28/22 Chief Complaint: Left leg ulcer History of Wound: This 71-year-old female with multiple comorbidities was seen for follow up of left ulcer on the leg. she has been undergoing recent clinical applications of Apligraf, advanced wound healing product. She denies fever, chill, nausea, vomiting. She denies redness or odor. She also previously had vascular intervention (arterial and venous) and had an updated diagnostic test this last week. Additional intervention is not planned at this time and she will follow up with Dr. Morel in 3 months. She is with her sister today. She is amenable to proceed with Apligraf application today. She also was placed on oral prednisone for an ear issue. She is also considering getting a hearing aid. Progress of Wound: Improving with more epithelialization islands Objective Data Objective Data Vital Signs: Vital Signs Temp Pulse Resp BP 96.8 F L 91 20 H 149/78 H 01/28/22 15:19 01/28/22 15:19 01/28/22 15:19 01/28/22 15:19 Oxygen Flow Rate (L/min) 2 Weight: 63.503 kg Body Mass Index (BMI) 59.4 Physical Exam Skin Skin Narrative: Now the ulcer is completely circumferential around the leg, there are continued improved and increased skin islands that are notable and distal continued epithelialization. The skin is even toughening and remodeling maximally and posteriorly in a good manner. The initial ulcers are no longer deep and appear healthy and granular. There is no purulence, no erythema, no streaking, no odor appreciated today. There is no bogginess or fluctuance on palpation. Significant reduction in ulcer. Ulcer inflammation reduction and also to ussana ulcer sites noted. Neuro Neuro Narrative: hypersensitivity to light touch not as notable today Debridement Note Debridement Note Wound debrided: left leg cluster Wound Grade/Stage: Type of Debridement: Excisional debridement Anesthesia Used: 4% Lidocaine Solution Depth: in the subcutaneous layer Percentage of wound debrided: 100 Instrument Used: #15 blade Tissue Removed: fibrous, devitalized subcutaneous, biofilm, slough Severity: Fat Layer Exposed Amount of bleeding with debridement: Mild Bleeding Controlled with: Pressure Patient tolerated procedure: Patient tolerated procedure well Post-Debridement Measurements and Additional Note: Post-Debridement Measurements/Treatment TOMÁS - Nurse 1 - General Ulcer Assessment Start: 01/14/22 15:22 Freq: Status: Active Protocol: AYSHA Activity Type Activity Date Activity User E-Sign Co-Sign Detail Recorded Client Recorded Date Recorded By Document 01/14/22 15:22 RB [id number] 01/14/22 15:33 RB Document 01/28/22 15:19 DL [id number] 01/28/22 15:33 DL 01/14/22 01/28/22 15:22 15:19 WC - Today's Visit Information Type of service Follow-up Visit Follow-up Visit (Physician/[facility] (Physician/[facility] ) ) Arrival Mode Wheelchair Wheelchair Transfer Assistance None None Patient Identification Verified (Name & Yes Yes ) Patient Requires Transmission-Based No No Precautions Height and Weight Body Mass Index (BMI) 59.4 59.4 BMI Classification Obese Obese Vital Signs Temperature (97.8 F-99.1 F) 98.6 F 96.8 F L Temperature Source Temporal Temporal Pulse Rate (60-100) 92 91 Pulse Location Monitor Monitor Respiratory Rate (12-18) 18 20 H Respiratory rate source Observation Observation Blood Pressure (90/60-120/80) 112/50 L 149/78 H Blood Pressure Mean (mm Hg) 70 101 Source Monitor Monitor Position Sitting Blood Pressure Location Left Arm History Since Last Visit- (Skip if this is Patient's initial visit) Have you changed medications since your No No last visit? Any new allergies or adverse reactions No No Had a fall/change in ADL's that may No No increase risk of falls Signs or symptoms of abuse and/or No No neglect since last visit Have you been in the hospital since your No No last visit? Has dressing in place as prescribed Yes Yes Has compression in place as prescribed No Yes Has offloadiing in place as prescribed No N/A Experienced any changes in pain level or No Yes management Pain Scale: 0-10 Numeric Is Patient Pain Free? Yes Yes - Nurse 1 - General Ulcer Measurement Start: 01/14/22 15:22 Freq: Status: Active Protocol: Activity Type Activity Date Activity User E-Sign Co-Sign Detail Recorded Client Recorded Date Recorded By Document 01/14/22 15:22 RB [id number] 01/14/22 15:33 RB Document 01/28/22 15:19 DL [id number] 01/28/22 15:33 DL 01/14/22 01/28/22 15:22 15:19 Wound Center Nurse 1 #1 LLE lateral -Combined with other wound No -Current Size (cm) - Length 25.2 23.5 -Current Size (cm) - Width 31.6 31 -Current Size (cm) - Depth 0.2 0.2 -Total Square Cm 796.32 728.5 -Photo Taken No -Tunneling No -Undermining/Tunneling No -Circular Undermining No -Exudate Amt Large Medium -Exudate Type Serosanguineous Serosanguineous -Wound Margin Distinct, Indistinct, Non Outline -Visible Attached -Granulation Amt Small (1-33%) Medium (34-66%) -Granulation Quality [place] Red -Slough/Fibrin Yes -Necrosis Amt Large (67-100%) Medium (34-66%) -Necrotic Tissue Type Adherent Slough Adherent Slough -Structure Exposed N/A N/A -Texture (Susana-wound Skin Appearance) Assessed, Excoriation, Friable Scarring,Rash -Moisture (Susana-wound Skin Appearance) Assessed -Color (Susana-wound Skin Appearance) Assessed Erythema -Temperature (Susana-wound Skin No Abnormality No Abnormality Appearance) (Pt Warm) (Pt Warm) -Tenderness on Palpation (Susana-wound No No Skin Appearance) -Ulcer Cleansing Wound Cleanser Not Cleansed -Foul Odor after Cleansing No No -Anesthetic Used 4% Lidocaine 4% Lidocaine Solution,5% Solution Lidocaine Gel Lower Limb Edema Present Yes Left Calf (cm) 31.6 31 Left Ankle (cm) 21.7 21.8 WC - Nurse 2 - General Ulcer CM Notes Start: 01/14/22 15:22 Freq: Status: Active Protocol: Activity Type Activity Date Activity User E-Sign Co-Sign Detail Recorded Client Recorded Date Recorded By Document 01/14/22 15:48 FELISHA [id number] 01/14/22 15:55 JF Edit Result 01/14/22 15:48 JF (1) [id number] 01/15/22 07:05 PL Document 01/28/22 15:50 FELISHA [id number] 01/28/22 15:52 FELISHA (1) #1 LLE lateral - Debridement, SubQ, ea addt'l 20sq cm 2 => or part thereof 01/14/22 01/28/22 15:48 15:50 Wound Center Nurse 2 #1 LLE lateral -Time 15:49 15:50 -Correct Patient Yes Yes -Correct Side, Site, Position Yes Yes -Correct Procedure Yes Yes -Procedure Performed Yes Yes -Type of Procedure Debridement Debridement -Clinical Debridement Subcutaneous Subcutaneous -Tissue Removed Subcutaneous Subcutaneous -Post Debridement (cm) - Length 8.5 9.5 -Post Debridement (cm) - Width 5 2.5 -Post Debridement (cm) - Depth 0.2 0.1 -Total Square (Post) (cm) 42.5 23.75 -Area of Debridement (cm) - Length 8.5 9.5 -Area of Debridement (cm) - Width 5 2.5 -Total Square (Area) (cm) 42.5 23.75 -Tunneling No No -Undermining/Tunneling No No -Circular Undermining No No -Wound/Ulcer Outcome Not Healed Not Healed -Ulcer Cleansing Rinsed/ Rinsed/ Irrigated with Irrigated with Saline Saline -Foul Odor after Cleansing No No -Bioengineered Tissue Yes Yes -Type of Bioengineered Tissue Apligraf Apligraf -Expiration Date 01/23/22 02/10/22 -Product Lot Number [id number] -Percent Used 100 100 -Lot number of Saline Used [id number] -Bleeding Controlled with Pressure Pressure -Treatment Response Procedure Procedure Tolerated Well Tolerated Well -Offloading No No -Debridement - Subq, 1st 20sq cm No No -Apply Skin Sub - 1st 25 sq cm - Legs 1 1 -Apply Skin Sub - each addt'l 25 sq cm 1 - Legs -Apligraf (per sq cm) 44 44 Pain Scale: 0-10 Numeric Is Patient Pain Free? Yes Yes WC - Nurse 3 - General Ulcer D/C NN Start: 01/14/22 15:22 Freq: Status: Active Protocol: Activity Type Activity Date Activity User E-Sign Co-Sign Detail Recorded Client Recorded Date Recorded By Document 01/14/22 16:00 RB [id number] 01/14/22 16:01 RB 01/14/22 16:00 Wound Care Nurse 3 #1 LLE lateral -Ulcer Cleansing Rinsed/ Irrigated with Saline -Primary Dressing Applied NonAdherent Contact Layer -Primary Dressing Covered/Secured with Dry Gauze,Dry Gauze & Roll Gauze,Secured with Tape Left -Other CANDELARIO Treatment Response Procedure Tolerated Well Pain Scale: 0-10 Numeric Is Patient Pain Free? 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 Debridement was performed today as noted. To wash leg every day with anti bacterial oap and water; but not the apligraft application site. To gently dry with a clean towel. To continue with max absorption secondary dressing (ordered previously). To avoid placing adaptic over epithelialized skin. I recommend application of regular Adaptic as compared to Adaptic touch to allow moisture permeation. If she has excessive maceration and moisture on an intermittent basis; not noted today. Her edema significantly fluctuates and therefore her dressing will need to fluctuate as needed. It is okay for her to remove the residual apligraft in 1 week (next Wednesday) to avoid excessive moisture buildup. She is also unable to follow-up next week and will therefore follow-up the following Wednesday. Otherwise to keep this Apligraf clean and intact. I recommend application of advanced wound healing product, Apligraf. I do recommend this as a medical necessity to optimize healing to reduce the chance of limb loss. The indications, benefits, anticipated healing time and management were discussed. Prior authorization will be initiated. She has failed other conservative care measures and other prior advanced measures as well. This is a limb salvage case. This was approved and applied today after verbal consent. 100% of the product was utilized (left leg). This was applied according to standard protocol and was further secured in place with a wound veil and Steri-Strips. To keep this clean, dry, and intact until follow-up visit. A secondary dressing was also applied. Her pain is continued since her last visit but overall improved since her arterial intervention and recently her leg surgery. To follow-up with Dr. Morel as advised. It is noted she had angioplasty to the aorta and iliac level to reperfusion the left lower limb on 02-12-2021. Additional distal stenting also be considered. To follow-up as advised. It is noted she recently follow-up with Dr. Morel and per the patient he recommends additional venous intervention to help reduce swelling. She recently had this procedure done and will follow up with Dr. Morel scheduled. To wear compression garments as recommended by her vascular specialist. She understands periodic inflammation may occur now that she is recent post procedure. I reviewed medical records from [facility] [place]. Her CTA demonstrated no significant stenosis of the left leg with strong flow into her foot this will be rechecked in 3 months with a repeat venous ultrasound also. No additional intervention is recommended at this time. She was reassured no local signs of infection or purulence are noted today. She is under the management of infectious disease physician for recurrent leg infections and also for C. difficile management which is appreciated. She completed a course of iv cefepime cover deeper infection for duration of 6 weeks with a stop date of 03/24/2021. 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 She has not had a recent flare up. I advised her to maintain better control her edema with intermittent elevation and muscular contraction of the involved post polio syndrome leg. I recommend Tubigrip application and she relates she only able to tolerate this part of the time. It is okay for her to wear a properly fitted and protected shoe and to weight-bear as tolerated to the left lower extremity. She is advised wearing Candelario wrap at least. She takes Lasix as needed. Her recent prednisone burst may also be considered for doxycycline tissue. To complete this course. She was initially placed on this due to an ear issue. Pain management referral was offered previously. Her pain has been better controlled the last days. Her most recent x-rays are negative for acute osseous changes. She does not have a diagnosis of osteomyelitis nor any other known qualifying diagnosis to proceed with hyperbaric oxygen therapy. To proceed with a proper control diet and nutrition supplementation to optimize healing. I answered all of her questions and explained the etiology of ulcer causes and the comprehensive wound healing plan. It is noted she is reducing her salt in her diet. She is at risk for limb loss. We discussed her overall treatment options include 1. Continued comprehensive wound care plan with most recent venous intervention 2. Palliative care program 3. Surgical amputation of the limb 4. Second opinion. She elects to proceed with option 1 at this time. To follow-up in 2 weeks at the wound healing center. Note: [employer] speech recognition commercial credit reviewer software was used to create portions of this document. Sound
== END 2022-02-05 23:59 | disposition home or self-care (01) ==
LOC: WC 15:15
PROVIDERS: PCP Family Medicine; Referring Provider Podiatrist; Visit Provider Podiatrist
DX: L97.922 Non-pressure chronic ulcer of unspecified part of left lower leg with fat layer exposed (principal); I73.9 Peripheral vascular disease, unspecified; I87.2 Venous insufficiency (chronic) (peripheral); G14 Postpolio syndrome; L85.3 Xerosis cutis; M79.605 Pain in left leg; R60.0 Localized edema; Z79.02 Long term (current) use of antithrombotics/antiplatelets; Z79.890 Hormone replacement therapy; Z79.899 Other long term (current) drug therapy
CPT/HCPCS: 11045; 15271; 15272; Q4101

== ENCOUNTER 2022-02-01 15:04 | Inpatient (IN) | payer MEDICARE, OTHER, SELFPAY ==
[2022-02-01 15:05] VITALS: BP 133/53; PULSE 80; RESP 18; TEMP 36.2; O2SAT 99; BMI 27.0
--- NOTE | 2022-02-01 16:04 | EX.ED.GENINJ ---
HPI History of Present Illness Chief Complaint: Fall Detail of Chief Complaint: Fall with injury to both knees Informant: patient Narrative Narrative: Patient presents to the emergency department with complaint of a fall that occurred prior to arrival in the ER about 2 PM. Patient states that she was transferring from her wheelchair to a vehicle when she tried to stand her knees gave out and she fell directly onto her knees. Patient has history of chronic wound to the left lower extremity. She complains of bleeding from wounds now. Patient unsure of her last tetanus. Patient is wheelchair-bound due to history of polio as a child. Tetanus Immunization: Unknown [facility] Medical History (Updated 02/01/22 @ 17:[address] Norm Baer, DO) Alcohol abuse Back pain C. difficile colitis Cellulitis of left leg Chronic cough Colitis Colonization status COPD (chronic obstructive pulmonary disease) Delayed wound healing Depression Diarrhea Former tobacco use History of Clostridium difficile colitis HLD (hyperlipidemia) HTN (hypertension) Hypothyroidism Left leg pain Leg edema, left Loose, teeth Migraines MVP (mitral valve prolapse) Open wound Other specified peripheral vascular diseases Pseudomonas aeruginosa colonization Sinus tachycardia Smoker Tachycardia Ulcer of left lower extremity with fat layer exposed Ulcer of left lower extremity, limited to breakdown of skin Venous insufficiency Wears glasses Home Medications levothyroxine 137 mcg PO DAILY 11/28/19 [History Last Taken 02/02/21 mcg] acidophilus-pectin, citrus 2 tab PO DAILY 03/26/20 [History Last Taken 02/03/21] metoprolol tartrate 50 mg PO BREAKFAST 03/26/20 [History Last Taken 02/03/21] metoprolol tartrate 100 mg PO QHS 03/26/20 [History Last Taken 02/02/21] acetaminophen 650 mg PO Q6H PRN PRN tab 05/31/20 [Rx Last Taken Unknown] clopidogrel [Plavix] 75 mg PO DAILY 03/16/21 [History Last Taken Unknown] atorvastatin 20 mg PO QHS #30 tab 03/19/21 [Rx Last Taken Unknown] doxepin 10 mg PO QHS 02/01/22 [History Last Taken Unknown] pentoxifylline [Trental] 400 mg PO DAILY 02/01/22 [History Last Taken Unknown] Allergy/AdvReac Type Severity Reaction Status Date / Time naproxen [From Naprosyn] Allergy Rash Verified 02/01/22 15:05 Penicillins [PCN] Allergy Rash Verified 02/01/22 15:05 amoxicillin AdvReac Rash Verified 02/01/22 15:05 cephalexin [From Keflex] AdvReac Rash Verified 02/01/22 15:05 clotrimazole [From Lotrimin] AdvReac Rash Verified 02/01/22 15:05 diphenhydramine AdvReac Rash Verified 02/01/22 15:05 [From Benadryl] griseofulvin AdvReac Rash Verified 02/01/22 15:05 ibuprofen [From Motrin] AdvReac Rash Verified 02/01/22 15:05 miconazole AdvReac Rash Verified 02/01/22 15:05 [From Monistat 1 Combo Pack] propranolol [From Inderal LA] AdvReac Rash Verified 02/01/22 15:05 rofecoxib [From Vioxx] AdvReac Rash Verified 02/01/22 15:05 Sulfa (Sulfonamide AdvReac Rash Verified 02/01/22 15:05 Antibiotics) Family History Daughter Asthma Sister COPD (chronic obstructive pulmonary disease) Father COPD (chronic obstructive pulmonary disease) Heart disease Mother COPD (chronic obstructive pulmonary disease) Surgical History History of hip surgery Hx of knee surgery Hx of tubal ligation Social History Smoking Status: Former smoker second hand exposure: No alcohol intake: current alcohol intake frequency: holidays/special occasions only substance use type: does not use caffeine: Yes (some times) Type: tea what type of physical activity do you participate in: none frequency: does not exercise ROS ROS ED Constitutional Constitutional ED: Reports systems reviewed and no addt'l complaints, except as documented; Denies body ache(s), change in weight or chills Eyes Eyes: Denies acute decrease in peripheral vision, change in vision, double vision or loss of vision ENT ENT ED: Reports none; Denies ear pain, lip swelling, loss taste/smell, neck pain, otalgia or sore throat Cardiovascular Cardiovascular: Reports none; Denies abdominal pain, chest pain with activity, leg edema, lightheadedness, palpitations, rapid heart rate or syncope Respiratory/Chest Respiratory/Chest: Reports none; Denies change in mental status, dry cough, dyspnea, hemoptysis, shortness of breath at rest or shortness of breath with exertion Gastrointestinal Gastrointestinal: Reports none; Denies abdominal pain, change in stool character, diarrhea, hematemesis, hematochezia, melena, rectal bleeding or vomiting Genitourinary Genitourinary ED: Reports none; Denies abdominal discomfort, anuria, dysuria, genital pain or polyuria Musculoskeletal Musculoskeletal: Reports none and other Details: Bilateral knee pain/injury, laceration left lower extremity ; Denies arthralgias, back pain, difficulty walking, extremity pain, muscle weakness or myalgias Integumentary Reports none; Denies abscess or rash Neurologic Neurologic: Reports none; Denies abnormal gait, confusion, focal weakness, frequent falls, headache(s), loss of vision, numbness, paresthesias, radicular pain, vertigo or weakness Psychiatric Psychiatric: Reports systems reviewed and no addt'l complaints, except as documented and none; Denies behavioral changes, confusion, difficulty concentrating, hallucinations, suicidal ideation, tactile hallucinations or visual hallucinations Endocrine Endocrinology: Denies none, cold intolerance, excessive sweating, fatigue or heat intolerance Hematologic/Lymphatic Hematologic/Lymphatic: Reports none; Denies anemia, easy bleeding or easy bruising Allergic/Immunologic Allergic/Immunologic ED: Denies as per HPI, none, lip swelling, mouth swelling, throat swelling, tongue swelling or hives EXAM Physical Exam Const Vital Signs: 02/01/22 15:05 Temperature 97.2 F L Temperature Source Temporal Pulse Rate 80 Respiratory Rate 18 Blood Pressure 133/53 H Blood Pressure Mean 79 Pulse Ox 99 Oxygen Delivery Method Room Air Positive well nourished and well developed General Appearance ED: well developed and NAD HEENT Reports TM's clear and moist mucous membranes normocephalic and atraumatic; Negative for trauma or tenderness Tympanic Membrane ED: Yes TM's clear Eyes PERRL and EOMs intact bilaterally General Eye ED: Negative for pale conjunctiva or scleral icterus Neck no lymphadenopathy, supple and no JVD General: Negative for tenderness Chest Wall inspection of chest normal and palpation of chest normal Chest: Negative for tenderness Resp normal respiratory effort and clear to auscultation bilaterally Effort and Inspection: Negative for respiratory distress or pain with movement Auscultation: Negative for rhonchi, wheezes or diminished lung sounds Cardio regular rate, regular rhythm, S1 normal heart sound, S2 normal heart sound and no murmurs Peripheral Pulses: pulses 2+ throughout GI normal to inspection, nondistended, normoactive bowel sounds, soft to palpation, non-tender, non-distended and no masses Back/Spine no CVA tenderness and no thoracic nor lumbar tenderness Extremity normal to inspection Extremity Narrative: Evaluation of the left knee reveal some diffuse soft tissue swelling with tenderness to palpation. Distal to the knee anteriorly there is a laceration measuring approximately 5 cm in length with edges that are tight and thin skin with small amount of persistent oozing from the wound. Patient also has another 2.5 cm laceration lateral and inferior to the knee. General Extremety ED: Negative for edema General Extremity: Negative for edema Neuro oriented x3, CN's II-XII intact bilaterally, no sensory deficits noted and gait normal Sensorium / Orientation: awake, alert, oriented to person, oriented to place and oriented to time Motor Exam: strength 5/5 throughout and strength abnormal Psych mental status grossly normal Skin no rashes or lesions noted and no wounds PROC Procedures Lacerations Left lower extremity lacerations: Length: 2.95 in Depth: Sub Q Shape: Linear Laceration repair: Lidocaine with epi and Local Irrigated (ml): 100 Number of Sutures/[place]: 7 Suture Information: Ethilon, Simple and 4-0 Comment: Area sterilely draped and prepped. Wounds anesthetized locally with 1% lidocaine with epinephrine total of 8 cc. Wound cleansed with Shur-Clens and irrigated copious saline. Using 4-0 nylon I attempted to approximate the wound edges to obtain hemostasis. Patient has some smaller wounds also that are not amenable to suture as the skin is thin and wound edges pulling apart. Clean dressing was applied. Patient tolerated procedure well. MDM MDM MDM Narrative Medical decision making narrative: IV line established. Patient refused anything for pain. X-rays of both knees were obtained. Patient was noted to have a proximal tibia fracture and proximal fibula fracture as well on the left. X-rays of the right knee obtained question whether they may be an occult fracture as patient was suspected to have a hemarthrosis. Case will be discussed with hospitalist evaluate for admission. I also discussed with orthopedics on-call who will see patient in consultation while admitted. We will place patient in knee immobilizer and she is to be nonweightbearing. Patient have sutures removed in 10 days from her wounds. Lab Data Attestation: I reviewed the patient's lab results. Radiography Diagnostic Testing: Clinical Impression(s) from Imaging Studies Knee X-Ray 02/01/22 16:06 IMPRESSION: Osteoporosis with acute nondisplaced oblique fractures of the proximal metaphysis of the tibia and the fibular neck. Electronically Signed: Ankur Alford MD at 17:15 EDT Reading Location ID and State: [id number] / [facility] [employer] Tel , Service support , Knee X-Ray 02/01/22 16:40 IMPRESSION: Osteoporosis with suspected radiographically occult fracture with a lipoma hemarthrosis. Correlation with CT and/or MRI is recommended. Electronically Signed: Ankur Alford MD at 17:13 EDT Reading Location ID and State: [id number] / [facility] , Service support , 4 view x-rays of left knee obtained showed proximal tibia and proximal fibula fracture. Radiology in agreement. X-ray of the right knee obtained interpreted by myself as no acute fractures. Radiology feels there might be a occult fracture given the hemarthrosis. Discharge Plan Dx/Rx/DC Orders Clinical Impression: Fall, Closed fracture of left fibula and tibia, Laceration of left leg Disposition Disposition: Acute Care Hospital [facility]
--- NOTE | 2022-02-01 16:06 | RAD_ITS ---
STUDY: X-RAY - LEFT KNEE REASON FOR EXAM: Female, 71 years old. FALL TECHNIQUE: 3 view(s) of the knee. COMPARISON: None. FINDINGS: There is demineralization of the visualized distal femur. There is demineralization of the tibia and fibula. Acute nondisplaced oblique fracture of the proximal metaphysis of the tibia and fibular neck. Normal proximal tibiofibular articulation. Normal medial femorotibial compartment. Normal lateral femorotibial compartment. Normal patellofemoral articulation. There is a moderate volume joint effusion. The soft tissue structures are unremarkable. RAD/Knee 3 Views IMPRESSION: Osteoporosis with acute nondisplaced oblique fractures of the proximal metaphysis of the tibia and the fibular neck. Electronically Signed: Ankur Alford MD at 17:15 EDT ,
[2022-02-01] MEDS: Diphth,Pertuss(Acell),Tet Vac 0.5 ML Vial IM (16:19)
--- NOTE | 2022-02-01 16:40 | RAD_ITS ---
STUDY: X-RAY - RIGHT KNEE REASON FOR EXAM: Female, 71 years old. fall TECHNIQUE: 3 view(s) of the knee. COMPARISON: None. FINDINGS: There is demineralization of the visualized distal femur. There is demineralization of the tibia and fibula. Normal proximal tibiofibular articulation. Normal medial femorotibial compartment. Normal lateral femorotibial compartment. Normal patellofemoral articulation. Suspect large lipohemarthrosis worrisome for radiographically occult fracture. Correlation with CT and/or MRI is recommended. The soft tissue structures are unremarkable. RAD/Knee 3 Views IMPRESSION: Osteoporosis with suspected radiographically occult fracture with a lipoma hemarthrosis. Correlation with CT and/or MRI is recommended. Electronically Signed: Ankur Alford MD at 17:13 EDT ,
[2022-02-01] MEDS: Lidocaine 1% /Epi 1:100 (20ml) 20 ML Vial INFILT (16:45)
[2022-02-01] MEDS: 0.9% Normal Saline 1,000 ML 150 ML IV (18:00)
[2022-02-01 18:01] VITALS: BP 119/82; PULSE 101; RESP 14; TEMP 36.6; O2SAT 95
[2022-02-01 18:09] LABS: Absolute Lymphocyte Count 3.81 X10^3/uL (0.83-4.51); Absolute Neutrophil Count 21.2 X10^3/uL (2.0-7.7); Basophil% 0.4 % (0-1); Eosinophil# 0.37 X10^3/uL; Eosinophils% 1.4 % (0-5); Hematocrit 32.3 % (37-47); Hemoglobin 10.3 g/dL (12.0-15.0); Lymphocyte # 3.81 X10^3/ul (0.83-4.51); Lymphocyte % 14.1 % (19-41); Mean Corp Hgb Conc 31.9 g/dL (32-36); Mean Corpuscular Hgb 28.8 pg (27.0-32.0); Mean Corpuscular Volume 90.2 fL (81-99); Mean Platelet Vol. 8.4 fl (6.2-12.0); Monocyte# 1.33 X10^3/uL; Monocyte% 4.9 % (0-10); NRBC Flagged by Analyzer 0 % (0-5); Neutrophil # 21.17 X10^3/uL (2.7-7.7); Neutrophil % 78.1 % (47-70); POSITIVE DIFFERENTIAL YES; Platelet Count 506 K/mm3 (150-450); RBC Distribution Width CV 14.2 % (11.6-14.6); RBC Distribution Width SD 45.7 fl (35.1-43.9); Red Blood Count 3.58 M/mm3 (4.2-5.4); White Blood Count 27.1 K/mm3 (4.4-11.0)
[2022-02-01 18:19] LABS: Differential Indicated SCAN CRITERIA MET
[2022-02-01 18:27] LABS: Anion Gap 6 (5-15); BUN 34 mg/dL (7-18); BUN/Creat Ratio 32.7 RATIO (10-20); Calcium,Total 8.8 mg/dL (8.5-10.1); Chloride 107 mmol/L (98-107); Creatinine, Serum 1.04 mg/dL (0.55-1.02); EST Glomerular Filtration Rate 55 mL/min (>60); Est Glom Filt Rate - Afr Amer 67 mL/min (>60); Estimated Creatinine Clearance 44.64 ml/min; Glucose 140 mg/dL (74-106); Potassium 4.2 mmol/L (3.5-5.1); Sodium Level 140 mmol/L (136-145)
--- NOTE | 2022-02-01 18:45 | PCM.HP.STD ---
HPI - General General Date of Admission: 02/01/22 Date of Service: 02/01/22 Chief Complaint: Fall, left knee pain, right knee pain HPI Narrative LUCIE DUPONT, is a 71 F who presents to the emergency room at [facility] with complaints of left and right knee discomfort after falling from a wheelchair after she was attempting to get into a car. Patient is nonambulatory due to a past history of polio. Work-up in the emergency room included x-rays of the right and left knees, left knee showed a tib-fib fracture, right knee did not show an obvious fracture but showed what appeared to be hemarthrosis. Patient's labs were remarkable for an elevated white blood cell count at 27.1, hemoglobin was 10.3, patient's chemistry panel was remarkable for creatinine of 1.04, BUN was 34, and glucose was 140. Patient had wounds to her lower leg from falling, she does see wound care chronically for lower extremity wounds, these wounds were cleaned by the ER physician and approximated as best possible. Patient will be admitted to [place] [id number], she will be seen by orthopedic surgery, knee immobilizer will be placed on the left knee, she will need [place] [facility] due to her inability to walk. [facility] Medical History (Updated 02/01/22 @ 17:[address] Norm Baer, DO) Alcohol abuse Back pain C. difficile colitis Cellulitis of left leg Chronic cough Colitis Colonization status COPD (chronic obstructive pulmonary disease) Delayed wound healing Depression Diarrhea Former tobacco use History of Clostridium difficile colitis HLD (hyperlipidemia) HTN (hypertension) Hypothyroidism Left leg pain Leg edema, left Loose, teeth Migraines MVP (mitral valve prolapse) Open wound Other specified peripheral vascular diseases Pseudomonas aeruginosa colonization Sinus tachycardia Smoker Tachycardia Ulcer of left lower extremity with fat layer exposed Ulcer of left lower extremity, limited to breakdown of skin Venous insufficiency Wears glasses Home Medications levothyroxine 137 mcg PO DAILY 11/28/19 [History Last Taken 02/02/21 mcg] acidophilus-pectin, citrus 2 tab PO DAILY 03/26/20 [History Last Taken 02/03/21] metoprolol tartrate 50 mg PO BREAKFAST 03/26/20 [History Last Taken 02/03/21] metoprolol tartrate 100 mg PO QHS 03/26/20 [History Last Taken 02/02/21] acetaminophen 650 mg PO Q6H PRN PRN tab 05/31/20 [Rx Last Taken Unknown] clopidogrel [Plavix] 75 mg PO DAILY 03/16/21 [History Last Taken Unknown] atorvastatin 20 mg PO QHS #30 tab 03/19/21 [Rx Last Taken Unknown] doxepin 10 mg PO QHS 02/01/22 [History Last Taken Unknown] pentoxifylline [Trental] 400 mg PO DAILY 02/01/22 [History Last Taken Unknown] Allergy/AdvReac Type Severity Reaction Status Date / Time naproxen [From Naprosyn] Allergy Rash Verified 02/01/22 15:05 Penicillins [PCN] Allergy Rash Verified 02/01/22 15:05 amoxicillin AdvReac Rash Verified 02/01/22 15:05 cephalexin [From Keflex] AdvReac Rash Verified 02/01/22 15:05 clotrimazole [From Lotrimin] AdvReac Rash Verified 02/01/22 15:05 diphenhydramine AdvReac Rash Verified 02/01/22 15:05 [From Benadryl] griseofulvin AdvReac Rash Verified 02/01/22 15:05 ibuprofen [From Motrin] AdvReac Rash Verified 02/01/22 15:05 miconazole AdvReac Rash Verified 02/01/22 15:05 [From Monistat 1 Combo Pack] propranolol [From Inderal LA] AdvReac Rash Verified 02/01/22 15:05 rofecoxib [From Vioxx] AdvReac Rash Verified 02/01/22 15:05 Sulfa (Sulfonamide AdvReac Rash Verified 02/01/22 15:05 Antibiotics) Family History Daughter Asthma Sister COPD (chronic obstructive pulmonary disease) Father COPD (chronic obstructive pulmonary disease) Heart disease Mother COPD (chronic obstructive pulmonary disease) Surgical History History of hip surgery Hx of knee surgery Hx of tubal ligation Social History Smoking Status: Former smoker second hand exposure: No alcohol intake: current alcohol intake frequency: holidays/special occasions only substance use type: does not use caffeine: Yes (some times) Type: tea what type of physical activity do you participate in: none frequency: does not exercise ROS Constitutional Constitutional: Denies anorexia, change in weight, fever(s), night sweats or weakness Eyes Eyes: Denies blurry vision, change in vision, discharge from eye(s) or eye pain ENT HEENT: Denies abnormal hearing, dysphagia or ear pain Cardiovascular Cardiovascular: Denies chest pain, claudication, dyspnea on exertion, edema, lightheadedness or palpitations Respiratory/Chest Respiratory/Chest: Denies cough, excessive phlegm production, hemoptysis, productive cough, shortness of breath at rest or shortness of breath with exertion Gastrointestinal Gastrointestinal: Denies abdominal pain, constipation, diarrhea, hematemesis, hematochezia, melena, nausea or vomiting Genitourinary Genitourinary: Denies difficulty urinating, dysuria, hematuria, nocturia, urinary frequency, urinary hesitancy, urinary incontinence or urinary urgency Musculoskeletal Musculoskeletal: Reports joint pain and joint swelling; Denies back pain, joint stiffness, myalgias or neck pain Neurologic Neurologic: Denies abnormal gait, abnormal speech, dizziness, focal weakness, headache(s), loss of vision, numbness, other visual disturbances, paresthesias, syncope or tingling Psychiatric Psychiatric: Denies anxiety, cognitive impairment, depression, irritability, mood swings or suicidal ideation Endocrine Endocrinology: Denies change in body appearance, cold intolerance, excessive sweating, heat intolerance, polydipsia or polyuria Hematologic/Lymphatic Hematologic/Lymphatic: Denies none, anemia, easy bleeding, easy bruising or lymphadenopathy Allergic/Immunologic Allergic/Immunologic: Denies rhinitis, urticaria, eczemia or asthma Vital Signs Vital Signs Vital Signs: 02/01/22 15:05 02/01/22 18:01 Temperature 97.2 F L 97.9 F Temperature Source Temporal Temporal Pulse Rate 80 101 H Respiratory Rate 18 14 Blood Pressure 133/53 H 119/82 H Blood Pressure Mean 79 94 Pulse Ox 99 95 Oxygen Delivery Method Room Air Room Air Weight Weight: 58.7 kg Body Mass Index (BMI) 27.0 Physical Exam Const alert, oriented x3 and no apparent distress General Appearance: cooperative, well kempt and well developed Orientation / Consciousness: awake, oriented to person, oriented to place and oriented to time HEENT normocephalic and moist oral mucous membranes Eyes PERRL, EOMs intact bilaterally and conjunctivae normal Neck nuchal rigidity, supple, no JVD, thyroid normal and no carotid bruits General: trachea midline Resp normal respiratory effort, no retractions, no use of accessory muscles and clear to auscultation bilaterally Auscultation: Negative for rales, rhonchi or wheezes Cardio regular rate, regular rhythm, S1 normal heart sound, S2 normal heart sound, no murmurs, no rub and no gallops GI normal to inspection, nondistended, normoactive bowel sounds, soft to palpation, non-tender and non-distended Extremity Extremity Narrative: Patient's left lower leg was then closed in a knee immobilizer, left leg was wrapped with surgical gauze, right knee was nontender to palpation, I did not appreciate any extreme swelling of the right knee, there was osteoarthritic changes noted over the right knee Skin Skin Narrative: The patient's lower legs were wrapped with surgical dressing and were not inspected General Skin Exam: no breakdown Neuro oriented x3, CN's II-XII intact bilaterally, no focal motor deficits and no sensory deficits noted Sensorium / Orientation: awake and alert Speech: speech normal Psych affect normal Results Lab / Micro Data Result Diagrams: 02/01/22 17:55 02/01/22 17:55 Labs: Laboratory Results - last 24 hr 02/01/22 17:55: WBC 27.1 H, RBC 3.58 L, Hgb 10.3 L, Hct 32.3 L, MCV 90.2, MCH 28.8, MCHC 31.9 L, RDW Std Deviation 45.7 H, RDW Coeff of Naseem 14.2, Plt Count 506 H, MPV 8.4, Immature Gran % (Auto) 1.100 H, Neut % (Auto) 78.1 H, Lymph % (Auto) 14.1 L, Cobb % (Auto) 4.9, Eos % (Auto) 1.4, Baso % (Auto) 0.4, Absolute Neuts (auto) 21.2 H, Absolute Lymphs (auto) 3.81, Nucleated RBC % 0 02/01/22 17:55: Sodium 140, Potassium 4.2, Chloride 107, Carbon Dioxide 27.0, Anion Gap 6, BUN 34 H, Creatinine 1.04 H, Estim Creat Clear Calc 44.64, Est GFR (MDRD) Af Amer 67, Est GFR (MDRD) Non-Af 55 L, BUN/Creatinine Ratio 32.7 H, Glucose 140 H, Calcium 8.8 Radiology Impression Knee X-Ray 02/01/22 16:06 IMPRESSION: Osteoporosis with acute nondisplaced oblique fractures of the proximal metaphysis of the tibia and the fibular neck. Electronically Signed: Ankur Alford MD at 17:15 EDT Reading Location ID and State: [employer] Tel , Service support , Knee X-Ray 02/01/22 16:40 IMPRESSION: Osteoporosis with suspected radiographically occult fracture with a lipoma hemarthrosis. Correlation with CT and/or MRI is recommended. Electronically Signed: Ankur Alford MD at 17:13 EDT Reading Location ID and State: [employer] [facility] [employer] Tel , Service support , Assessment & Plan Assessment/Plan (1) Closed fracture of left fibula and tibia: PLAN: 1. Left tib-fib fracture secondary to osteoporosis with fall-patient will be admitted to [facility] 3, knee immobilizer will be kept in place, patient will be seen by orthopedic surgery, no surgery is planned however for repair of the tib-fib fracture. Patient will be seen by PT and OT, she will need placement in a long-term facility. I talked with the patient briefly about this, she wants to return home if possible rather than to go to a long-term facility. #2 laceration of the left lower leg-this was approximated by ER, the lower leg was wrapped with surgical dressing, wound care will see the patient tomorrow #3 post polio syndrome--we will make recovery and treatment difficult, patient will need placement in the long-term facility #4 essential hypertension-patient will remain on her present medications for blood pressure #5 leukocytosis-etiology unclear at this point, patient does not have an obvious infection, I will repeat her CBC tomorrow, this may be reactive from her fracture. #6 hyperlipidemia-patient is on atorvastatin #7 hypothyroidism-patient is on Synthroid #8 peripheral vascular disease-patient is on Plavix and Trental. #9 contusion to the right knee-I will not be ordering any additional imaging studies, orthopedic surgery will examine the patient tomorrow #10 COPD-patient occasionally uses a rescue inhaler at home, I will not order any as needed aerosols at this point, I do not feel the patient needs them Charges/Coding Visit Charges Inpatient E&M: 72003 Init Hosp L3
[2022-02-01 19:00] LABS: Anisocytosis RARE; Hypochromasia RARE; Macrocytosis RARE; Platelet Estimate MOD INC (ADEQ)
[2022-02-01 19:18] VITALS: BP 120/50; PULSE 100; RESP 18; TEMP 36.4; O2SAT 97; BMI 25.7
[2022-02-01 21:20] VITALS: PULSE 108
[2022-02-01] MEDS: Metoprolol Tartrate 100 MG Tablet PO (21:20)
[2022-02-01] MEDS: Doxepin Hydrochloride 10 MG Capsule PO (21:20)
[2022-02-01] MEDS: Atorvastatin Calcium 20 MG Tablet PO (21:20)
[2022-02-01] MEDS: Morphine 2 MG/ML Syringe IV (21:20)
[2022-02-01] MEDS: HYDROcodone Bitartrate/Apap 5/325 Tablet PO (23:53)
[2022-02-02] VITALS (12 sets, daily range): BP systolic 79–136; BP diastolic 38–61; PULSE 83–121; RESP 16–103; TEMP 36.5–37.4; O2SAT 94–99
--- NOTE | 2022-02-02 00:07 | NURSING ---
PT MEDICATED FOR C/O LLE PAIN. PT VERY HESITANT TO TAKE PAIN MEDS - STATES SHE HAD BAD EXPERIENCE BEFORE. 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 RATES PAIN 8. AGREEABLE TO TAKE 1 NORCO @ THIS TIME.
--- NOTE | 2022-02-02 02:02 | NURSING ---
PT BP 79/56. PT REQUESTING PAIN MED. NOT COMFORTABLE GIVING PT PRN NARCOTICS - TEXT TO DR RAMOS REGARDING SAME.
--- NOTE | 2022-02-02 02:11 | NURSING ---
RETURN CALL FROM DR RAMOS - BRANDEN ORDER RECEIVED.
--- NOTE | 2022-02-02 02:17 | NURSING ---
[facility] PER DR RACHEL URIBE
[2022-02-02] MEDS: 0.9% Saline Lock 10 ML Syringe IV ×2 (02:22→06:11)
[2022-02-02] MEDS: Lactated Ringers 1,000 ML 999 ML IV (02:23)
[2022-02-02] MEDS: Ketorolac 15 MG/ML Vial IV (02:28)
[2022-02-02] MEDS: Levothyroxine 137 MCG Tablet PO (05:30)
[2022-02-02] MEDS: Acetaminophen 325 MG Tablet 650 MG PO ×2 (05:33→10:34)
--- NOTE | 2022-02-02 05:53 | NURSING ---
PT BP NOW 95/38. TEXT TO DR RAMOS. NO NEW ORDERS.
[2022-02-02] MEDS: Lactated Ringers 1,000 ML 150 ML IV (06:12)
--- NOTE | 2022-02-02 06:14 | NURSING ---
RECEIVED TEXT FROM DR RAMOS WITH NEW ORDERS
[2022-02-02 06:31] LABS: Absolute Lymphocyte Count 3.05 X10^3/uL (0.83-4.51); Absolute Neutrophil Count 10.5 X10^3/uL (2.0-7.7); Basophil# 0.07 X10^3/uL; Basophil% 0.5 % (0-1); Eosinophil# 0.27 X10^3/uL; Eosinophils% 1.8 % (0-5); Hematocrit 21.4 % (37-47); Hemoglobin 6.9 g/dL (12.0-15.0); Lymphocyte # 3.05 X10^3/ul (0.83-4.51); Lymphocyte % 20.3 % (19-41); Mean Corp Hgb Conc 32.2 g/dL (32-36); Mean Corpuscular Hgb 28.6 pg (27.0-32.0); Mean Corpuscular Volume 88.8 fL (81-99); Mean Platelet Vol. 8.6 fl (6.2-12.0); Monocyte# 1.02 X10^3/uL; Monocyte% 6.8 % (0-10); NRBC Flagged by Analyzer 0 % (0-5); Neutrophil # 10.54 X10^3/uL (2.7-7.7); Neutrophil % 69.9 % (47-70); Platelet Count 314 K/mm3 (150-450); RBC Distribution Width CV 14.2 % (11.6-14.6); RBC Distribution Width SD 45.6 fl (35.1-43.9); Red Blood Count 2.41 M/mm3 (4.2-5.4); White Blood Count 15.1 K/mm3 (4.4-11.0)
--- NOTE | 2022-02-02 06:48 | NURSING ---
Addendum entered by Luz Martin 02/02/22 06:52: DR DEAL MADE AWARE OF THIS AM'S LABS & LOW BPS OVERNIGHT. Original Note: DR Sohail DEAL CALLED IN FOR UPDATE ON PT
[2022-02-02 06:56] LABS: ALB/GLOB Ratio 0.7 RATIO (0.9-2.4); AST(SGOT) 15 U/L (15-37); Alanine Aminotransfer ALT/SGPT 19 U/L (13-56); Albumin, Serum 2.2 g/dL (3.2-5.0); Alkaline Phosphatase 71 U/L (45-117); Anion Gap 4 (5-15); BUN 34 mg/dL (7-18); BUN/Creat Ratio 34.7 RATIO (10-20); Chloride 108 mmol/L (98-107); Creatinine, Serum 0.98 mg/dL (0.55-1.02); EST Glomerular Filtration Rate 59 mL/min (>60); Est Glom Filt Rate - Afr Amer 71 mL/min (>60); Estimated Creatinine Clearance 45.04 ml/min; Globulin 3.2 g/dL (2.2-4.2); Glucose 114 mg/dL (74-106); Potassium 4.4 mmol/L (3.5-5.1); Protein, Total 5.4 g/dL (6.4-8.2); Sodium Level 139 mmol/L (136-145)
--- NOTE | 2022-02-02 06:56 | NURSING ---
RECEIVED CALL FROM DR RAMOS STATING HE IS ORDERING 1UNIT PRBCS TO BE TRANSFUSED
--- NOTE | 2022-02-02 08:29 | WOUNDNOTE ---
wound photo: left lower leg
--- NOTE | 2022-02-02 08:30 | WOUNDNOTE ---
wound photo: left lower leg
--- NOTE | 2022-02-02 12:40 | CASEMGMT ---
RN CM Face to Face with patient for initial transition planning/care coordination assessment. RN CM introduced self and role at [facility]. Patient lying in bed, alert and oriented, sister at bedside. Patient willing to participate in assessment and is able to answer all questions appropriately. Care providers, pharmacy, and demographics verified. Patient wishes to discharge home but willing to go to SNF if recommended. RN CM provided SNF list for [facility] and [facility] as requested. RN CM also provided HHC list to patient as well. Patient states she has no further needs or concerns at this time. CM to follow for discharge planning needs that may arise. PCP: Lula Specialists: Allison, automotive technology instructor; Adriel, vascular; Chandrakant, ENT [facility]erred [facility]: [facility] Pres[facility] Benefit: yes Living Will/HPOA: yes, daughter Tasia Bocanegra HPOA LNOK: daughter, sister Living Arrangements: Patient lives at home alone in a single story home. Daughter and sister take turns caring for patient and preforming ADLs. Transportation: daughter, sister. DME/HHC: Patient has Adjustable bed, shower chair, BSC, cane, walker, grab bars, wheelchair, nebulizer, pulse ox, and home oxygen concentrator at 2 lpm. Patient states she cannot recall oxygen provided and has had concentrator for some time. Patient has had [place] at home in the past. Disposition Plan: HHC vs SNF pending course of treatment and progress with therapy. Stella FUENTES, RN, CM
[2022-02-02] MEDS: HYDROcodone Bitartrate/Apap 5/325 Tablet PO ×2 (13:19→21:44)
--- NOTE | 2022-02-02 14:37 | PN.HOSP_ITS ---
Subjective Subjective Follow-up on fracture of the left knee/debility: Patient was seen and examined. Her pain is fairly controlled. She denied any new complaints. She has been transfused 1 unit of packed RBC Objective Data Objective Data Vital Signs: Vital Signs Temp Pulse Resp BP Pulse Ox 98.0 F 96 18 117/56 L 96 02/02/22 12:58 02/02/22 12:58 02/02/22 12:58 02/02/22 12:58 02/02/22 12:58 Oxygen Delivery Method Room Air Weight: 55.8 kg Body Mass Index (BMI) 25.7 Intake & Output: Intake and Output for Last 24 Hours 01/31/22 02/01/22 02/02/22 23:59 23:59 23:59 Intake Total 375 / 375 2495 / 2495 Output Total 100 / 100 350 / 350 Balance 275 / 275 2145 / 2145 Lab / Micro Data Result Diagrams: 02/02/22 06:02 02/02/22 06:02 Labs: Laboratory Results - last 24 hr 02/01/22 17:55: WBC 27.1 H, RBC 3.58 L, Hgb 10.3 L, Hct 32.3 L, MCV 90.2, MCH 28.8, MCHC 31.9 L, RDW Std Deviation 45.7 H, RDW Coeff of Naseem 14.2, Plt Count 506 H, MPV 8.4, Immature Gran % (Auto) 1.100 H, Neut % (Auto) 78.1 H, Lymph % (Auto) 14.1 L, [place] % (Auto) 4.9, Eos % (Auto) 1.4, Baso % (Auto) 0.4, Absolute Neuts (auto) 21.2 H, Absolute Lymphs (auto) 3.81, Nucleated RBC % 0, Differential Comment SEE COMMENT, Diff Path Review May foll, Platelet Estimate MOD INC, Hypochromasia RARE, Anisocytosis RARE, Macrocytosis RARE 02/01/22 17:55: Sodium 140, Potassium 4.2, Chloride 107, Carbon Dioxide 27.0, Anion Gap 6, BUN 34 H, Creatinine 1.04 H, Estim Creat Clear Calc 44.64, Est GFR (MDRD) Af Amer 67, Est GFR (MDRD) Non-Af 55 L, BUN/Creatinine Ratio 32.7 H, Glucose 140 H, Calcium 8.8 02/02/22 06:02: WBC 15.1 H, RBC 2.41 L, Hgb 6.9 L, Hct 21.4 L, MCV 88.8, MCH 28.6, MCHC 32.2, RDW Std Deviation 45.6 H, RDW Coeff of Naseem 14.2, Plt Count 314, MPV 8.6, Immature Gran % (Auto) 0.700, Neut % (Auto) 69.9, Lymph % (Auto) 20.3, [place] % (Auto) 6.8, Eos % (Auto) 1.8, Baso % (Auto) 0.5, Absolute Neuts (auto) 10.5 H, Absolute Lymphs (auto) 3.05, Nucleated RBC % 0 02/02/22 06:02: Sodium 139, Potassium 4.4, Chloride 108 H, Carbon Dioxide 27.0, Anion Gap 4 L, BUN 34 H, Creatinine 0.98, Estim Creat Clear Calc 45.04, Est GFR (MDRD) Af Amer 71, Est GFR (MDRD) Non-Af 59 L, BUN/Creatinine Ratio 34.7 H, Glucose 114 H, Calcium 8.0 L, Total Bilirubin 0.40, AST 15, ALT 19, Alkaline Phosphatase 71, Total Protein 5.4 L, Albumin 2.2 L, Globulin 3.2, Albumin/Globulin Ratio 0.7 L 02/02/22 07:10: Blood Type O POSITIVE, Antibody Screen NEGATIVE, Crossmatch See Detail Radiography Diagnostic Testing: Radiology Impression Knee X-Ray 02/01/22 16:06 IMPRESSION: Osteoporosis with acute nondisplaced oblique fractures of the proximal metaphysis of the tibia and the fibular neck. Electronically Signed: Ankur Alford MD at 17:15 EDT , Knee X-Ray 02/01/22 16:40 IMPRESSION: Osteoporosis with suspected radiographically occult fracture with a lipoma hemarthrosis. Correlation with CT and/or MRI is recommended. Electronically Signed: Ankur Alford MD at 17:13 EDT , Physical Exam Narrative Physical exam: General: Alert, Oriented x3, Cooperative, No apparent distress, appears very frail HEENT: Atraumatic Oral: Moist Mucosa Neck: Supple Lungs: Diminished to auscultation Cardiovascular: HS I+II, regular, no murmurs Abdomen: Bowel Sounds Present, Soft, Non Tender Extremities: Left knee in immobilizer, is wrapped to the leg Assessment & Plan Assessment/Plan (1) Closed fracture of left fibula and tibia: PLAN: 1. Acute nondisplaced fractures of the proximal metaphysis of the tibia and the fibula neck, mechanical, status post fall Patient with underlying osteoporosis Patient is in a knee immobilizer, orthopedics consulted from the ED PT/OT to evaluate and treat, continue pain control 2. Acute left lower leg laceration, status post suturing the ED, wound RN consulted 3. Chronic debility, history of polio syndrome, PT/OT to evaluate and treat 4. Chronic left lower leg cluster wounds, follows with podiatry in the wound clinic Wound RN consult 5. PAD status post angioplasty to the aorta and iliac level to re-perfuse the left lower leg on 02/12/21 Will hold Plavix in anticipation of surgery, continue on statin 6. Rest of his chronic medical conditions appear stable - hyperlipidemia/hypothyroidism/COPD Continue on Synthroid, statin 7. DVT PPx- Lovenox SC Charges/Coding Visit Charges Inpatient E&M: 78398 Subs Hosp L2
[2022-02-02] MEDS: Juven (unflavored) Packet 1 PACKET PO (16:59)
--- NOTE | 2022-02-02 17:24 | PCM.CONS.GEN ---
Assessment & Plan Assessment/Plan (1) Closed fracture of left fibula and tibia: (2) Laceration of left leg: (3) Ulcer of left lower extremity with fat layer exposed: (4) Contusion of right knee: PLAN: Discussed and reviewed treatment options with the patient her sister and Dr. Sai Ye at length including surgical and nonsurgical treatment options. All of their questions were answered. We discussed the indications for intramedullary nailing of the tibia shaft fracture with the benefit being less immobilization time and early weightbearing. We also discussed the risks associated with surgery due to her poor bone quality as well as chronic ulcers and poor wound healing. We felt that the risks significantly outweighed the benefits. We discussed the risks of nonunion and malunion. We discussed the risks associated with the requirement for BKA or AKA in the future. They voiced understanding. I did not feel the knee immobilizer due to her left knee contracture was applying appropriate support at the level of the fracture site it also was causing an area of pressure over the patella anteriorly. We discussed the indications for a referral to [facility] but they understand this would need to be done as an outpatient. At this time we opted to transfer her to a well-padded well fitted long-leg Ortho-Glass splint. She is to maintain a nonweightbearing status on bilateral lower extremities at this time. The knee immobilizer was placed on the right lower extremity. An elastic compressive Candelario wrap was applied to the right knee to allow for the effusion of the prepatellar bursa to resolve.explained the possibility of an occult fracture. We are going to treat her as such at this time. She will rest ice elevate the areas for any pain or swelling. She may continue pain medicines as needed. The dressing/splint on the left lower extremity may be broken down on a daily basis for local skin care and wound checks. We recommend they follow-up with [facility]/Dr. Sai Ye in 1 week reassessment x-rays of bilateral knees. Recommend transfer to fdc once the patient is deemed medically stable. Thank you for the consultation please do not hesitate to contact us with any further orthopedic concerns HPI Consult Data Date of Consult: 02/02/22 HPI Narrative HPI Narrative: LUCIE DUPONT, is a 71 F who presented to the emergency department yesterday. She is a nonambulator. She has a history of polio that affected bilateral lower extremities primarily the right lower extremity. She has been using a wheelchair to get around. She does have chronic wounds on the left lower extremity with which she was dealing with the wound center. They were starting to heal well. Yesterday she was transferring from her wheelchair to the car she fell out of the wheelchair landed directly on both knees. No head injury or loss of consciousness. She states that she did not have any pain in the knees before the injury. The right knee pain does seem better today. X-rays revealed a proximal tibia and fibula metaphyseal fracture on the left. There was concern on x-ray for occult fracture of the right knee with hemarthrosis. She had several acute wounds to the left lower leg that were repaired with sutures. Per the emergency department physician though the left leg injury was a closed injury. She was placed in a knee immobilizer transferred to the third floor and orthopedics was consulted. She was found to be hypotensive with leukocytosis and severe anemia. She has received blood products. Her recently . She denies numbness or tingling into the feet. No ankle or hip pain at this time. No fevers chills or other signs of infection. Patient lives alone at home. Her daughter and her sister routinely help care for her. [facility] Medical History (Updated 02/02/22 @ 17:34 by MATA Starkey) Alcohol abuse Anxiety Back pain C. difficile colitis Cellulitis of left leg Chronic cough Colitis Colonization status COPD (chronic obstructive pulmonary disease) Delayed wound healing Depression Diarrhea Former tobacco use History of Clostridium difficile colitis HLD (hyperlipidemia) HTN (hypertension) Hypothyroidism Left leg pain Leg edema, left Loose, teeth Migraines MVP (mitral valve prolapse) Open wound Other specified peripheral vascular diseases Polio Pseudomonas aeruginosa colonization Sinus tachycardia Smoker Tachycardia Ulcer of left lower extremity with fat layer exposed Ulcer of left lower extremity, limited to breakdown of skin Venous insufficiency Wears glasses Home Medications levothyroxine 137 mcg PO DAILY 11/28/19 [History Last Taken 02/02/21 mcg] acidophilus-pectin, citrus 2 tab PO DAILY 03/26/20 [History Last Taken 02/03/21] metoprolol tartrate 50 mg PO BREAKFAST 03/26/20 [History Last Taken 02/03/21] metoprolol tartrate 100 mg PO QHS 03/26/20 [History Last Taken 02/02/21] acetaminophen 650 mg PO Q6H PRN PRN tab 05/31/20 [Rx Last Taken Unknown] clopidogrel [Plavix] 75 mg PO DAILY 03/16/21 [History Last Taken Unknown] atorvastatin 20 mg PO QHS #30 tab 03/19/21 [Rx Last Taken Unknown] doxepin 10 mg PO QHS 02/01/22 [History Last Taken Unknown] pentoxifylline [Trental] 400 mg PO DAILY 02/01/22 [History Last Taken Unknown] Allergy/AdvReac Type Severity Reaction Status Date / Time naproxen [From Naprosyn] Allergy Rash Verified 02/01/22 15:05 Penicillins [PCN] Allergy Rash Verified 02/01/22 15:05 amoxicillin AdvReac Rash Verified 02/01/22 15:05 cephalexin [From Keflex] AdvReac Rash Verified 02/01/22 15:05 clotrimazole [From Lotrimin] AdvReac Rash Verified 02/01/22 15:05 diphenhydramine AdvReac Rash Verified 02/01/22 15:05 [From Benadryl] griseofulvin AdvReac Rash Verified 02/01/22 15:05 ibuprofen [From Motrin] AdvReac Rash Verified 02/01/22 15:05 miconazole AdvReac Rash Verified 02/01/22 15:05 [From Monistat 1 Combo Pack] propranolol [From Inderal LA] AdvReac Rash Verified 02/01/22 15:05 rofecoxib [From Vioxx] AdvReac Rash Verified 02/01/22 15:05 Sulfa (Sulfonamide AdvReac Rash Verified 02/01/22 15:05 Antibiotics) Family History Daughter Asthma Sister COPD (chronic obstructive pulmonary disease) Father COPD (chronic obstructive pulmonary disease) Heart disease Mother COPD (chronic obstructive pulmonary disease) Surgical History (Updated 02/01/22 @ 19:46 by Luz Martin) History of hip surgery Hx of tubal ligation Social History Smoking Status: Former smoker second hand exposure: No alcohol intake: current alcohol intake frequency: holidays/special occasions only substance use type: does not use caffeine: Yes (some times) Type: tea what type of physical activity do you participate in: none frequency: does not exercise ROS ROS Narrative Review of systems were discussed and reviewed at length with the patient all pertinent positives and negatives are documented in the electronic medical record Physical Exam Narrative Upon entering the room there is a pleasant 71-year-old female in the hospital bed visiting with her sister. She appears her stated age. She has gross atrophy of bilateral lower limbs due to a history of polio and nonambulation. The right hip is without deformity. Right hip is without tenderness. Gentle mobility of the right hip without pain or restriction. Left hip without deformity or tenderness. Gentle mobility of the left hip without pain or restriction. She has knee immobilizer and a dressing on the left lower extremity. The right knee is with palpable effusion does not appear to be intra-articular but just proximal to the patella likely consistent with traumatic prepatellar bursitis. Patient states she was unable to perform a straight leg raise on the right before the injury. Does not seem to have a palpable defect at the quadriceps at this time. The right knee is without significant tenderness to palpation. Gentle mobility of the right knee is without significant pain. Left knee is with anterior ecchymosis over the level of the patella. Without tenderness to palpation. There is tenderness to palpation over the proximal tibial and fibular metaphysis. She has chronic wounds and acutely sutured wounds ( Distal to the knee anteriorly there is a laceration measuring approximately 5 cm in length with edges that are tight and thin skin and 2.5 cm laceration lateral and inferior to the knee sutures intact) of the left lower extremity currently without active drainage erythema malodor or acute signs of infection. Bilateral ankles are without deformity. Bilateral ankles are without tenderness. There is edema of the left foot and ankle. Patient able to gently plantar and dorsiflex bilateral ankles against gravity. Sensation intact light touch capillary refill less than 3 seconds neurovascularly intact. Diagnostic studies x-rays of left knee February 01, 2022 reviewed consistent with minimally displaced transverse fractures of the proximal tibial and fibular metaphyseal regions with gross bony demineralization X-rays of right knee February 01, 2022 reviewed consistent with gross bony demineralization with hemarthrosis suspect occult fracture no acute displaced fracture noted Lab / Micro Data Result Diagrams: 02/02/22 06:02 02/02/22 06:02 Labs: Laboratory Results - last 24 hr 02/01/22 17:55: WBC 27.1 H, RBC 3.58 L, Hgb 10.3 L, Hct 32.3 L, MCV 90.2, MCH 28.8, MCHC 31.9 L, RDW Std Deviation 45.7 H, RDW Coeff of Naseem 14.2, Plt Count 506 H, MPV 8.4, Immature Gran % (Auto) 1.100 H, Neut % (Auto) 78.1 H, Lymph % (Auto) 14.1 L, [place] % (Auto) 4.9, Eos % (Auto) 1.4, Baso % (Auto) 0.4, Absolute Neuts (auto) 21.2 H, Absolute Lymphs (auto) 3.81, Nucleated RBC % 0, Differential Comment SEE COMMENT, Diff Path Review Nely garces, Platelet Estimate MOD INC, Hypochromasia RARE, Anisocytosis RARE, Macrocytosis RARE 02/01/22 17:55: Sodium 140, Potassium 4.2, Chloride 107, Carbon Dioxide 27.0, Anion Gap 6, BUN 34 H, Creatinine 1.04 H, Estim Creat Clear Calc 44.64, Est GFR (MDRD) Af Amer 67, Est GFR (MDRD) Non-Af 55 L, BUN/Creatinine Ratio 32.7 H, Glucose 140 H, Calcium 8.8 02/02/22 06:02: WBC 15.1 H, RBC 2.41 L, Hgb 6.9 L, Hct 21.4 L, MCV 88.8, MCH 28.6, MCHC 32.2, RDW Std Deviation 45.6 H, RDW Coeff of Naseem 14.2, Plt Count 314, MPV 8.6, Immature Gran % (Auto) 0.700, Neut % (Auto) 69.9, Lymph % (Auto) 20.3, [place] % (Auto) 6.8, Eos % (Auto) 1.8, Baso % (Auto) 0.5, Absolute Neuts (auto) 10.5 H, Absolute Lymphs (auto) 3.05, Nucleated RBC % 0 02/02/22 06:02: Sodium 139, Potassium 4.4, Chloride 108 H, Carbon Dioxide 27.0, Anion Gap 4 L, BUN 34 H, Creatinine 0.98, Estim Creat Clear Calc 45.04, Est GFR (MDRD) Af Amer 71, Est GFR (MDRD) Non-Af 59 L, BUN/Creatinine Ratio 34.7 H, Glucose 114 H, Calcium 8.0 L, Total Bilirubin 0.40, AST 15, ALT 19, Alkaline Phosphatase 71, Total Protein 5.4 L, Albumin 2.2 L, Globulin 3.2, Albumin/Globulin Ratio 0.7 L 02/02/22 07:10: Blood Type O POSITIVE, Antibody Screen NEGATIVE, Crossmatch See Detail
--- NOTE | 2022-02-02 17:30 | NURSING ---
After splinting, patient was painful. VSS and this RN offered to call MD to get an order for pain medication. She declines at this time. This RN will reevaluate around 1800.
[2022-02-02] MEDS: Metoprolol Tartrate 100 MG Tablet PO (19:59)
[2022-02-02] MEDS: Doxepin Hydrochloride 10 MG Capsule PO (21:44)
[2022-02-02] MEDS: Atorvastatin Calcium 20 MG Tablet PO (21:44)
[2022-02-03 03:18] VITALS: BP 133/61; PULSE 97; RESP 18; TEMP 37.4; O2SAT 94
[2022-02-03] MEDS: Morphine 2 MG/ML Syringe IV (03:27)
[2022-02-03] MEDS: 0.9% Saline Lock 10 ML Syringe IV (03:28)
[2022-02-03] MEDS: Levothyroxine 137 MCG Tablet PO (06:26)
[2022-02-03] MEDS: HYDROcodone Bitartrate/Apap 5/325 Tablet PO ×2 (06:26→17:07)
[2022-02-03 07:17] LABS: Absolute Lymphocyte Count 2.38 X10^3/uL (0.83-4.51); Basophil# 0.06 X10^3/uL; Basophil% 0.4 % (0-1); Eosinophil# 0.47 X10^3/uL; Eosinophils% 2.9 % (0-5); Hematocrit 26.7 % (37-47); Hemoglobin 8.5 g/dL (12.0-15.0); Lymphocyte # 2.38 X10^3/ul (0.83-4.51); Lymphocyte % 14.9 % (19-41); Mean Corp Hgb Conc 31.8 g/dL (32-36); Mean Corpuscular Hgb 28.7 pg (27.0-32.0); Mean Corpuscular Volume 90.2 fL (81-99); Mean Platelet Vol. 8.4 fl (6.2-12.0); Monocyte# 1.04 X10^3/uL; Monocyte% 6.5 % (0-10); NRBC Flagged by Analyzer 0 % (0-5); Neutrophil # 11.97 X10^3/uL (2.7-7.7); Neutrophil % 74.7 % (47-70); Platelet Count 264 K/mm3 (150-450); RBC Distribution Width CV 14.6 % (11.6-14.6); RBC Distribution Width SD 47.2 fl (35.1-43.9); Red Blood Count 2.96 M/mm3 (4.2-5.4)
--- NOTE | 2022-02-03 07:21 | WOUNDNOTE ---
Splint was applied to the left lower leg yesterday by ortho. Plan is to change the dressing to the left lower leg every other day and as needed. dressing was changed yesterday, so will leave in place today.
[2022-02-03 07:42] LABS: ALB/GLOB Ratio 0.7 RATIO (0.9-2.4); AST(SGOT) 18 U/L (15-37); Alanine Aminotransfer ALT/SGPT 18 U/L (13-56); Albumin, Serum 2.4 g/dL (3.2-5.0); Alkaline Phosphatase 80 U/L (45-117); Anion Gap 4 (5-15); BUN 27 mg/dL (7-18); BUN/Creat Ratio 31.6 RATIO (10-20); Calcium,Total 8.4 mg/dL (8.5-10.1); Chloride 107 mmol/L (98-107); Creatinine, Serum 0.85 mg/dL (0.55-1.02); EST Glomerular Filtration Rate 69 mL/min (>60); Est Glom Filt Rate - Afr Amer 84 mL/min (>60); Estimated Creatinine Clearance 51.92 ml/min; Globulin 3.5 g/dL (2.2-4.2); Glucose 101 mg/dL (74-106); Potassium 4.3 mmol/L (3.5-5.1); Protein, Total 5.9 g/dL (6.4-8.2); Sodium Level 136 mmol/L (136-145)
[2022-02-03 07:57] VITALS: BP 131/54; PULSE 108; RESP 18; TEMP 37; O2SAT 93
[2022-02-03 08:03] VITALS: BP 131/54; PULSE 108
[2022-02-03] MEDS: Juven (unflavored) Packet 1 PACKET PO ×2 (08:03→16:39)
[2022-02-03] MEDS: Metoprolol Tartrate 50 MG Tablet PO (08:03)
--- NOTE | 2022-02-03 11:00 | CASEMGMT ---
Social Work Note SW in to speak with pt to discuss discharge plans. SW introduced self and role at [facility]. Pt is alert and orientated. SW discussed recommendation of SNF placement. Pt agreeable to SNF and preferred provider is [facility] TCU. SW explained Medicare coverage at SNF. SW explained referral process. Pt states understanding. SW spoke with pt about her 's recent as it is charted pt's seven weeks ago. Pt confirms this. SW provided much support to pt. Pt states it has been difficult. Pt states that her was her primary caregiver and pt's sister had to recently start taking care of pt and pt's since he became sick. Pt states sometimes I feel like I want to give up. SW spoke with pt about grief and provided support to pt. SW spoke with pt regarding grief resources, pt agreeable to taking resources. Pt states history of Anxiety and Depression and states she takes medication. PT denied any history of suicidal thoughts/plans/ideations. Pt denied any current suicidal thoughts/plans/ideations. SW placed a call to Jelly with TCU and provided referral. TCU to review. SW to provide pt with grief resources. Plan: TCU pending acceptance Stella Landaverde COFFIN MAKER, TRADE ANALYST
[2022-02-03] MEDS: Acetaminophen 325 MG Tablet 650 MG PO (11:59)
[2022-02-03 14:11] LABS: Pathologist Review Reviewed
[2022-02-03 14:54] VITALS: BP 103/46; PULSE 98; RESP 18; TEMP 36.7; O2SAT 98
--- NOTE | 2022-02-03 15:59 | PN.HOSP_ITS ---
Subjective Subjective Follow-up on fracture of the left knee/debility: Patient was seen and examined. Her pain is fairly controlled. She denied any new complaints. Objective Data Objective Data Vital Signs: Vital Signs Temp Pulse Resp BP Pulse Ox 98.1 F 98 18 103/46 L 98 02/03/22 14:54 02/03/22 14:54 02/03/22 14:54 02/03/22 14:54 02/03/22 14:54 Oxygen Delivery Method Room Air Weight: 55.8 kg Body Mass Index (BMI) 25.7 Intake & Output: Intake and Output for Last 24 Hours 02/01/22 02/02/22 02/03/22 23:59 23:59 23:59 Intake Total 375 / 375 3202.5 / 3202.5 520 / 520 Output Total 100 / 100 950 / 950 1000 / 1000 Balance 275 / 275 2252.5 / 2252.5 -480 / -480 Lab / Micro Data Result Diagrams: 02/03/22 07:07 02/03/22 07:07 Labs: Laboratory Results - last 24 hr 02/01/22 17:55: Diff Path Review Reviewed 02/03/22 07:07: WBC 16.0 H, RBC 2.96 L, Hgb 8.5 L, Hct 26.7 L, MCV 90.2, MCH 28.7, MCHC 31.8 L, RDW Std Deviation 47.2 H, RDW Coeff of Naseem 14.6, Plt Count 264, MPV 8.4, Immature Gran % (Auto) 0.600, Neut % (Auto) 74.7 H, Lymph % (Auto) 14.9 L, [place] % (Auto) 6.5, Eos % (Auto) 2.9, Baso % (Auto) 0.4, Absolute Neuts (auto) 12.0 H, Absolute Lymphs (auto) 2.38, Nucleated RBC % 0 02/03/22 07:07: Sodium 136, Potassium 4.3, Chloride 107, Carbon Dioxide 25.0, Anion Gap 4 L, BUN 27 H, Creatinine 0.85, Estim Creat Clear Calc 51.92, Est GFR (MDRD) Af Amer 84, Est GFR (MDRD) Non-Af 69, BUN/Creatinine Ratio 31.6 H, Glucose 101, Calcium 8.4 L, Total Bilirubin 0.70, AST 18, ALT 18, Alkaline Ph osphatase 80, Total Protein 5.9 L, Albumin 2.4 L, Globulin 3.5, Albumin/Globulin Ratio 0.7 L Physical Exam Narrative Physical exam: General: Alert, Oriented x3, Cooperative, No apparent distress, appears very frail HEENT: Atraumatic Oral: Moist Mucosa Neck: Supple Lungs: Diminished to auscultation Cardiovascular: HS I+II, regular, no murmurs Abdomen: Bowel Sounds Present, Soft, Non Tender Extremities: Left knee in immobilizer, is wrapped to the leg Assessment & Plan Assessment/Plan (1) Closed fracture of left fibula and tibia: PLAN: 1. Acute nondisplaced fractures of the proximal metaphysis of the tibia and the fibula neck, mechanical, status post fall Patient with underlying osteoporosis Patient is in a knee immobilizer, orthopedics consulted PT/OT to evaluate and treat, continue pain control 2. Acute left lower leg laceration, status post suturing the ED, wound RN consulted 3. Chronic debility, history of polio syndrome, PT/OT to evaluate and treat 4. Chronic left lower leg cluster wounds, follows with podiatry in the wound clinic Wound RN consult 5. PAD status post angioplasty to the aorta and iliac level to re-perfuse the left lower leg on 02/12/21 Will hold Plavix in anticipation of surgery, continue on statin 6. Rest of his chronic medical conditions appear stable - hyperlipidemia/hypothyroidism/COPD Continue on Synthroid, statin 7. DVT PPx- Lovenox SC Charges/Coding Visit Charges Inpatient E&M: 96056 Subs Hosp L2
--- NOTE | 2022-02-03 16:00 | CASEMGMT ---
Social Work Note CAPRICE received message from Jelly with TCU stating TCU is able to accept pt, pt to discharge to TCU today. SW updated physician. RN CM updated pt. Plan: TCU today Stella Landaverde LEARNING OFFICER, CHUCKER
--- NOTE | 2022-02-03 16:00 | CASEMGMT ---
ELEUTERIO CM in to pt room to make pt aware that she has been accepted to TCU. Pt with family at bedside. Pt denies questions/concerns.
--- NOTE | 2022-02-03 16:02 | PCM.TXEXTCAR ---
Diet 02/01/22 19:21 Diet: Regular - General Food consistency:: Regular Liquid Consistency:: Regular/Thin Routine Orders/Code Status Routine Lab Work: CBC (within 3 days) and BMP (within 3 days) Code Status: Full Code Wound(s) left knee: Wound Type: Laceration LLE: Wound Type: 2 lacerations and 3 healing wounds with wound veils in place Dressing Change: xeroform Therapies Weight Bearing: Non weight bearing Extremity Affected:: Bilateral Lower Physical Therapy: Eval and Treat Occupational Therapy: Eval and Treat Problem/Diagnosis (1) Closed fracture of left fibula and tibia: Status: Acute Allergies/Procedures Done in Hospital Allergies naproxen [From Naprosyn] Allergy (Verified 02/01/22 15:05) Rash Penicillins [PCN] Allergy (Verified 02/01/22 15:05) Rash amoxicillin Adverse Reaction (Verified 02/01/22 15:05) Rash cephalexin [From Keflex] Adverse Reaction (Verified 02/01/22 15:05) Rash clotrimazole [From Lotrimin] Adverse Reaction (Verified 02/01/22 15:05) Rash diphenhydramine [From Benadryl] Adverse Reaction (Verified 02/01/22 15:05) Rash griseofulvin Adverse Reaction (Verified 02/01/22 15:05) Rash ibuprofen [From Motrin] Adverse Reaction (Verified 02/01/22 15:05) Rash miconazole [From Monistat 1 Combo Pack] Adverse Reaction (Verified 02/01/22 15:05) Rash propranolol [From Inderal LA] Adverse Reaction (Verified 02/01/22 15:05) Rash rofecoxib [From Vioxx] Adverse Reaction (Verified 02/01/22 15:05) Rash Sulfa (Sulfonamide Antibiotics) Adverse Reaction (Verified 02/01/22 15:05) Rash Procedures: None Type of Care/Length of Stay Estimated LOS: Convalescent Care Less Than 30 days Type of Care Needed: Skilled Rehab Potential: Good Prognosis: Good Additional Orders/Day of Discharge Day of Discharge: 02/03/22 Dietary and Speech Recommendations Dietitian Recommendations/Changes: Will order Davion bid to help w/ wound healing Discharge Plan Admission Admit Date/Time: 02/01/22 18:03 Primary Reason for Your Visit: Knee fractures Attending Provider: Reina Rojas Primary Care Provider: Boo Cotton Consulting Providers: Sai Ye Discharge Orders/Prescriptions Prescriptions: New Davion (with collagen) 7-7-1.5 gram Powder In Packet 1 packet PO BIDCM Qty: 0 RF: 0 Continued levothyroxine 137 MCG tablet 137 mcg PO DAILY RF: 0 metoprolol tartrate 100 MG tablet 100 mg PO QHS RF: 0 metoprolol tartrate 50 MG tablet 50 mg PO BREAKFAST RF: 0 acidophilus-pectin, citrus 1 TABLET tablet 2 tab PO DAILY RF: 0 acetaminophen 325 MG tablet 650 mg PO Q6H PRN PRN (Reason: Pain Score 1-10/Temp > 100.7 F) RF: 0 clopidogrel [Plavix] 75 mg Tablet 75 mg PO DAILY RF: 0 atorvastatin 20 mg Tablet 20 mg PO QHS Qty: 30 RF: 0 doxepin 10 mg Capsule 10 mg PO QHS RF: 0 pentoxifylline 400 mg Tablet Extended Release 400 mg PO DAILY RF: 0 Referrals / Follow Up: Boo Cotton MD [Primary Care Provider] - Within 1 Week Sai Ye MD [STAFF PHYSICIAN] - Within 1 Week Disposition Disposition (needs filled in before D/C Order can be placed): Home, Self Care
--- NOTE | 2022-02-03 16:07 | DS.PCM_ITS ---
Providers Date of Admission: 02/01/22 Date of Discharge: 02/03/22 Primary Care Physician: Dr. Boo Cotton MD Consultations 02/01/22 19:21 Consult: Onc/Wound/metal turner Routine Comment: Reason for Consult:: chronic leg wounds Consult: Orthopedics Routine Consulting Provider: Sai Ye Reason for Consult: left tib/fib fx EMERGENT Consult: No MD Notified: Yes Date Notified: 02/01/22 Time Notified: 18:09 Method of Notification: Verbal Reason For Visit: LEFT TIB/FIB FX Diagnosis Discharge Diagnosis (1) Closed fracture of left fibula and tibia: Status: Acute Code(s): S82.202A - Unspecified fracture of shaft of left tibia, initial encounter for closed fracture; S82.402A - Unspecified fracture of shaft of left fibula, initial encounter for closed fracture Medications at Discharge Home Medications levothyroxine 137 mcg PO DAILY 11/28/19 acidophilus-pectin, citrus 2 tab PO DAILY 03/26/20 metoprolol tartrate 50 mg PO BREAKFAST 03/26/20 metoprolol tartrate 100 mg PO QHS 03/26/20 acetaminophen 650 mg PO Q6H PRN PRN tab 05/31/20 clopidogrel [Plavix] 75 mg PO DAILY 03/16/21 atorvastatin 20 mg PO QHS #30 tab 03/19/21 doxepin 10 mg PO QHS 02/01/22 pentoxifylline 400 mg PO DAILY 02/01/22 [id number] [Davion (with collagen)] 1 packet PO BIDCM #0 ea 02/03/22 Hospital Course Operations None Procedures None Summary of Care Provided Minutes Spent on Discharge: 35 Hospital Course: 71-year-old female past medical history of polio affecting both lower extremity, margarite, wheelchair dependent, history of chronic wounds on her left lower extremity, follows with Dr. Lanier in the wound center, who fell out of a wheelchair while transferring to her car and landed on both knees. Patient was seen in the ED, x-ray showed a proximal tibia-fibula metaphyseal fractures on the left. There was a concern for occult fracture of the right knee with hemarthrosis. Patient sustained a laceration left lower leg that was repaired with sutures. She was admitted to the [facility] floor. She had low hemoglobin and was transfused 1 unit of packed RBC. Repeat hemoglobin was 8.5. Orthopedics was consulted from the ED. Options given to patient and the family. Patient opted for conservative management. Patient lives alone at home. Her daughter and sister routinely help her. She was evaluated by PT and OT and skilled for discharge to senior living facility. She will follow-up with orthopedic surgery in 1 week. Physical Exam Narrative Physical exam: General: Alert, Oriented x3, Cooperative, No apparent distress, appears very frail HEENT: Atraumatic Oral: Moist Mucosa Neck: Supple Lungs: Diminished to auscultation Cardiovascular: HS I+II, regular, no murmurs Abdomen: Bowel Sounds Present, Soft, Non Tender Extremities: Left knee in splint Weight / BMI Weight Weight: 55.8 kg Body Mass Index (BMI) 25.7 ABG / Lab / Microbiology Data Result Diagrams: 02/03/22 07:07 02/03/22 07:07 Laboratory: Laboratory Results - last 24 hr 02/01/22 17:55: Diff Path Review Reviewed 02/03/22 07:07: WBC 16.0 H, RBC 2.96 L, Hgb 8.5 L, Hct 26.7 L, MCV 90.2, MCH 28.7, MCHC 31.8 L, RDW Std Deviation 47.2 H, RDW Coeff of Naseem 14.6, Plt Count 264, MPV 8.4, Immature Gran % (Auto) 0.600, Neut % (Auto) 74.7 H, Lymph % (Auto) 14.9 L, Mccreary % (Auto) 6.5, Eos % (Auto) 2.9, Baso % (Auto) 0.4, Absolute Neuts (auto) 12.0 H, Absolute Lymphs (auto) 2.38, Nucleated RBC % 0 02/03/22 07:07: Sodium 136, Potassium 4.3, Chloride 107, Carbon Dioxide 25.0, Anion Gap 4 L, BUN 27 H, Creatinine 0.85, Estim Creat Clear Calc 51.92, Est GFR (MDRD) Af Amer 84, Est GFR (MDRD) Non-Af 69, BUN/Creatinine Ratio 31.6 H, Glucose 101, Calcium 8.4 L, Total Bilirubin 0.70, AST 18, ALT 18, Alkaline Phosphatase 80, Total Protein 5.9 L, Albumin 2.4 L, Globulin 3.5, Albumin/Globulin Ratio 0.7 L D/C Instructions Discharge Diet: No restrictions Meaningful Use Info Meaningful Use Diagnoses (Choose all that apply): None applicable Discharge Plan Admission Admit Date/Time: 02/01/22 18:03 Primary Reason for Your Visit: Knee fractures Attending Provider: Reina Rojas Primary Care Provider: Boo Cotton Consulting Providers: Sai Ye Discharge Orders/Prescriptions Prescriptions: New Davion (with collagen) 7-7-1.5 gram Powder In Packet 1 packet PO BIDCM Qty: 0 RF: 0 Continued levothyroxine 137 MCG tablet 137 mcg PO DAILY RF: 0 metoprolol tartrate 100 MG tablet 100 mg PO QHS RF: 0 metoprolol tartrate 50 MG tablet 50 mg PO BREAKFAST RF: 0 acidophilus-pectin, citrus 1 TABLET tablet 2 tab PO DAILY RF: 0 acetaminophen 325 MG tablet 650 mg PO Q6H PRN PRN (Reason: Pain Score 1-10/Temp > 100.7 F) RF: 0 clopidogrel [Plavix] 75 mg Tablet 75 mg PO DAILY RF: 0 atorvastatin 20 mg Tablet 20 mg PO QHS Qty: 30 RF: 0 doxepin 10 mg Capsule 10 mg PO QHS RF: 0 pentoxifylline 400 mg Tablet Extended Release 400 mg PO DAILY RF: 0 Referrals / Follow Up: Boo Cotton MD [Primary Care Provider] - Within 1 Week Sai Ye MD [STAFF PHYSICIAN] - Within 1 Week Disposition Disposition (needs filled in before D/C Order can be placed): Home, Self Care Charges/Coding Visit Charges Inpatient E&M: 01851 Disch Hosp
--- NOTE | 2022-02-03 17:44 | NURSING ---
Report called to Yuko in TCU.
== END 2022-02-03 18:05 | DRG 543 ==
LOC: ED 17:46 → MS3 18:12
PROVIDERS: Admitting Provider Internal Medicine; Emergency Provider Emergency Medicine; PCP Family Medicine; Visit Provider Internal Medicine
DX: M80.062A Age-related osteoporosis with current pathological fracture, left lower leg, initial encounter for fracture (principal); L97.922 Non-pressure chronic ulcer of unspecified part of left lower leg with fat layer exposed; J44.9 Chronic obstructive pulmonary disease, unspecified; I73.9 Peripheral vascular disease, unspecified; S81.812A Laceration without foreign body, left lower leg, initial encounter; E03.9 Hypothyroidism, unspecified; E78.5 Hyperlipidemia, unspecified; I10 Essential (primary) hypertension; I34.1 Nonrheumatic mitral (valve) prolapse; W19.XXXA Unspecified fall, initial encounter; G14 Postpolio syndrome; M24.562 Contracture, left knee; F32.A Depression, unspecified; Z87.19 Personal history of other diseases of the digestive system; Z86.19 Personal history of other infectious and parasitic diseases; Z79.899 Other long term (current) drug therapy; Z79.02 Long term (current) use of antithrombotics/antiplatelets; Z87.891 Personal history of nicotine dependence; Y93.9 Activity, unspecified; Y92.9 Unspecified place or not applicable; Z99.3 Dependence on wheelchair
CPT/HCPCS: 36415; 73562; 80048; 80053; 85025; 86850; 86900; 86901; 86920; 86922; 87426; 90715; 97162; 97166; 97802; 99285; J7040; J7120; P9016; A4216

== ENCOUNTER 2022-02-03 18:10 | Inpatient (IN) | payer MEDICARE, OTHER, SELFPAY ==
[2022-02-03 19:00] VITALS: BMI 27.7
--- NOTE | 2022-02-03 20:09 | HP.PCM_ITS ---
HPI - General General Date of Admission: 02/03/22 HPI Narrative 02/01/2022 LUCIE DUPONT, is a 71 Female who presents to [facility] Emergency Department with fall. While transferring from wheelchair to vehicle, fell directly on knees. Chronic left lower extremity wound, bleeding from wound. Wheelchair bound due to polio as child. Declined pain medications. Left lower extremity laceration closed with sutures. X-ray showed left proximal tibia/fibula fractures, knee immobilizer placed. Non weight bearing to left lower extremity. 02/01/2022 Admit to Hospital. Consult orthopedics for left tibia/fibula fractures. Dressing to left lower extremity laceration. Right knee contusion. 02/02/2022 Pain controlled. status post transfusion 1 unit PRBC. PT/OT for debility. 02/02/2022 Orthopedics recommended left lower extremity splint. Non weight bearing to bilateral lower extremities. Compression to right knee. 02/03/2022 Pain fairly controlled. 02/03/2022 Admit to TCU with debility, here for rehabilitation, strengthening, prior to discharge home alone. [facility] Medical History Alcohol abuse Anxiety Back pain C. difficile colitis Cellulitis of left leg Chronic cough Colitis Colonization status COPD (chronic obstructive pulmonary disease) Delayed wound healing Depression Diarrhea Former tobacco use History of Clostridium difficile colitis HLD (hyperlipidemia) HTN (hypertension) Hypothyroidism Left leg pain Leg edema, left Loose, teeth Migraines MVP (mitral valve prolapse) Open wound Other specified peripheral vascular diseases Polio Pseudomonas aeruginosa colonization Sinus tachycardia Smoker Tachycardia Ulcer of left lower extremity with fat layer exposed Ulcer of left lower extremity, limited to breakdown of skin Venous insufficiency Wears glasses Home Medications levothyroxine 137 mcg PO DAILY 11/28/19 [History Last Taken 02/02/21 mcg] acidophilus-pectin, citrus 2 tab PO DAILY 03/26/20 [History Last Taken 02/03/21] metoprolol tartrate 50 mg PO BREAKFAST 03/26/20 [History Last Taken 02/03/21] metoprolol tartrate 100 mg PO QHS 03/26/20 [History Last Taken 02/02/21] acetaminophen 650 mg PO Q6H PRN PRN tab 05/31/20 [Rx Last Taken Unknown] clopidogrel [Plavix] 75 mg PO DAILY 03/16/21 [History Last Taken Unknown] doxepin 10 mg PO QHS 02/01/22 [History Last Taken Unknown] pentoxifylline 400 mg PO DAILY 02/01/22 [History Last Taken Unknown] [id number] [Davion (with collagen)] 1 packet PO BIDCM 02/03/22 [History Last Taken Unknown] atorvastatin 20 mg PO QHS 02/03/22 [History Last Taken Unknown] Allergy/AdvReac Type Severity Reaction Status Date / Time naproxen [From Naprosyn] Allergy Rash Verified 02/01/22 15:05 Penicillins [PCN] Allergy Rash Verified 02/01/22 15:05 amoxicillin AdvReac Rash Verified 02/01/22 15:05 cephalexin [From Keflex] AdvReac Rash Verified 02/01/22 15:05 clotrimazole [From Lotrimin] AdvReac Rash Verified 02/01/22 15:05 diphenhydramine AdvReac Rash Verified 02/01/22 15:05 [From Benadryl] griseofulvin AdvReac Rash Verified 02/01/22 15:05 ibuprofen [From Motrin] AdvReac Rash Verified 02/01/22 15:05 miconazole AdvReac Rash Verified 02/01/22 15:05 [From Monistat 1 Combo Pack] propranolol [From Inderal LA] AdvReac Rash Verified 02/01/22 15:05 rofecoxib [From Vioxx] AdvReac Rash Verified 02/01/22 15:05 Sulfa (Sulfonamide AdvReac Rash Verified 02/01/22 15:05 Antibiotics) Family History Daughter Asthma Sister COPD (chronic obstructive pulmonary disease) Father COPD (chronic obstructive pulmonary disease) Heart disease Mother COPD (chronic obstructive pulmonary disease) Surgical History History of angioplasty of peripheral vessel History of hip surgery Hx of tubal ligation Social History (Updated 02/03/22 @ 20:[address] Dustin Sandoval MD) household members: none Smoking Status: Former smoker second hand exposure: No alcohol intake: current alcohol intake frequency: holidays/special occasions only substance use type: does not use caffeine: Yes (some times) Type: tea what type of physical activity do you participate in: none frequency: does not exercise ROS Constitutional Constitutional: Denies chills, fever(s) or weight gain ENT HEENT: Denies headache(s), nasal congestion or nasal discharge Cardiovascular Cardiovascular: Denies chest pain or palpitations Respiratory/Chest Respiratory/Chest: Denies cough, excessive phlegm production or shortness of breath with exertion Gastrointestinal Gastrointestinal: Denies abdominal pain, nausea or vomiting Genitourinary Genitourinary: Denies dysuria Musculoskeletal Musculoskeletal: Denies joint pain or joint swelling Integumentary Integumentary: Denies rash or wounds Neurologic Neurologic: Denies focal weakness, numbness or tingling Psychiatric Psychiatric: Denies anxiety, auditory hallucinations, depression, homicidal ideation or suicidal ideation Physical Exam Const alert General Appearance: cooperative HEENT normocephalic Eyes PERRL and EOMs intact bilaterally Neck supple, no JVD and no carotid bruits Resp normal respiratory effort, normal air movement and clear to auscultation bilaterally Cardio regular rate and regular rhythm GI normal to inspection, nondistended, normoactive bowel sounds, non-tender and non-distended Extremity normal capillary refill Extremity Narrative: Left lower extremity splint. General Extremity: Negative for edema Skin no rashes or lesions noted General Skin Exam: no breakdown Psych affect normal Appearance: appropriate Results Lab / Micro Data Result Diagrams: 02/04/22 05:17 02/04/22 05:17 Assessment & Plan Assessment/Plan (1) Debility: (2) Fall: (3) Contusion of right knee: (4) Closed fracture of left fibula and tibia: (5) Laceration of left leg: (6) Acute anemia: (7) Post-polio syndrome: (8) Hypothyroidism: (9) Hypertension: (10) Hyperlipidemia: (11) Insomnia: (12) Peripheral arterial occlusive disease: (13) Osteoporosis: PLAN: 71 year old female with below past medical history significant for polio, wheelchair bound, hospitalized for fall, left tib/fib fracture, right knee contusion, left lower extremity laceration, complicated by acute anemia requiring transfusion, admitted to TCU with debility, here for rehabilitation, strengthening, prior to discharge home alone. * Debility - PT/OT. * Pain - Tylenol 1000mg q6h prn pain (1-3), Tramadol 50mg q6h prn pain (4-5), Oxycodone 5mg q4h prn pain (6-10). * Bowel - Miralax 17gm daily, senna/colace 1 tablet bid, Dulcolax 10mg daily prn. * Adult immunization - Administer pneumonia vaccine, flu vaccine, covid19 vaccine as appropriate. * DVT prophylaxis - HAS-BLED score 3 high risk of bleeding, Narinder score 6 high risk of thromboembolism; due to anemia, already on plavix, trental, risk of bleeding out weigh risk of VTE, hold chemoprophylaxis. * Hyperlipidemia - Atorvastatin 20mg qhs. * Peripheral arterial occlusive disease - plavix 75mg daily, Trental 400mg daily. * Insomnia - Doxepin 10mg qhs. * Nutrition - Davion 1 packet bidcm. * GI prophylaxis - Lactobacillus 2 tablets daily. * Hypothyroidism - Levothyroxine 137mcg daily. * Hypertension - Metoprolol 50mg qam, 100mg qhs.
[2022-02-03 21:32] VITALS: BP 136/60; PULSE 118; RESP 20; TEMP 36.6; O2SAT 96
[2022-02-03] MEDS: Doxepin Hydrochloride 10 MG Capsule PO (21:38)
[2022-02-03 21:39] VITALS: BP 136/60; PULSE 118
[2022-02-03] MEDS: Metoprolol Tartrate 100 MG Tablet PO (21:39)
[2022-02-03] MEDS: Atorvastatin Calcium 20 MG Tablet PO (21:39)
[2022-02-03 21:45] VITALS: O2SAT 96
[2022-02-03] MEDS: Senna/Docusate Sodium 1 Tablet PO (21:46)
[2022-02-03] MEDS: Acetaminophen 500 MG Tablet 1000 MG PO (21:46)
--- NOTE | 2022-02-03 22:12 | NURSING ---
Pt very painful during assessment, crying out with any movement or touching. Rating pain as 8/10 and increases to 10/10 with moving. Legs elevated on pillows, immobilizer in place.Pt given Tylenol as only order, notified, new order for Oxy. Will medicate, will continue to monitor.
[2022-02-03] MEDS: oxyCODONE 5 MG Tablet PO (22:24)
[2022-02-04 06:22] LABS: Anion Gap 4 (5-15); BUN 42 mg/dL (7-18); Calcium,Total 8.8 mg/dL (8.5-10.1); Chloride 104 mmol/L (98-107); Creatinine, Serum 0.95 mg/dL (0.55-1.02); EST Glomerular Filtration Rate 61 mL/min (>60); Est Glom Filt Rate - Afr Amer 74 mL/min (>60); Estimated Creatinine Clearance 50.12 ml/min; Glucose 93 mg/dL (74-106); Potassium 4.4 mmol/L (3.5-5.1); Sodium Level 136 mmol/L (136-145)
[2022-02-04] MEDS: Levothyroxine 137 MCG Tablet PO (06:24)
[2022-02-04] MEDS: Polyethylene Glycol 3350 17 GM PACKET PO (06:24)
[2022-02-04] MEDS: Senna/Docusate Sodium 1 Tablet PO (06:24)
[2022-02-04] MEDS: Clopidogrel Bisulfate 75 MG Tablet PO (06:24)
[2022-02-04 06:29] VITALS: BP 111/51; PULSE 88
[2022-02-04 07:24] LABS: Absolute Lymphocyte Count 2.88 X10^3/uL (0.83-4.51); Absolute Neutrophil Count 9.4 X10^3/uL (2.0-7.7); Basophil# 0.07 X10^3/uL; Basophil% 0.5 % (0-1); Eosinophil# 0.53 X10^3/uL; Eosinophils% 3.8 % (0-5); Hematocrit 28.3 % (37-47); Hemoglobin 9.4 g/dL (12.0-15.0); Lymphocyte # 2.88 X10^3/ul (0.83-4.51); Lymphocyte % 20.5 % (19-41); Mean Corp Hgb Conc 33.2 g/dL (32-36); Mean Corpuscular Volume 90.4 fL (81-99); Mean Platelet Vol. 8.9 fl (6.2-12.0); Monocyte# 1.16 X10^3/uL; Monocyte% 8.2 % (0-10); NRBC Flagged by Analyzer 0 % (0-5); Neutrophil # 9.36 X10^3/uL (2.7-7.7); Neutrophil % 66.4 % (47-70); Platelet Count 329 K/mm3 (150-450); RBC Distribution Width CV 14.4 % (11.6-14.6); RBC Distribution Width SD 46.9 fl (35.1-43.9); Red Blood Count 3.13 M/mm3 (4.2-5.4); White Blood Count 14.1 K/mm3 (4.4-11.0)
[2022-02-04 08:42] VITALS: BP 115/51; PULSE 120
[2022-02-04] MEDS: Metoprolol Tartrate 50 MG Tablet PO (08:42)
[2022-02-04] MEDS: Pentoxifylline 400 MG Tablet PO (08:42)
[2022-02-04] MEDS: Tuberculin,Purif.prot.deriv. 50 TU/ML Vial 0.1 ML ID (11:41)
[2022-02-04] MEDS: Acetaminophen 500 MG Tablet 1000 MG PO (11:45)
[2022-02-04] MEDS: 0.9% Saline Lock 10 ML Syringe IV (11:45)
--- NOTE | 2022-02-04 13:35 | CHAPLAIN ---
Type of Pastoral Visit _x__ Initial Visit ___ Follow-up Visit ___ On-call Visit ___ General Patient Visit ___ Spiritual Assessment ___ Family Conference ___ Bereavement ___ Rapid Response ___ Code Blue ___ Other (describe below) Pastoral Care Referral From _x__ Patient ___ Family ___ Nurse ___ Physician ___ Activities Manager ___ Map Clerk ___ Other (describe below) Sacrament/Intervention _x__ Active listening ___ Anointing ___ Catholic _x__ Bereavement ___ Communion _x__ Amelia exploration ___ ___ Life review _x__ Prayer ___ Reconciliation ___ Sacrament of Sick __x_ Supportive presence ___ Wedding ___ Other (describe below) Pastoral Comments after introduction of self and role to this patient her first question is would you tell me about hetanmayn?; pt spouse seven weeks ago and pt is admittedly seeking some comfort and understanding from a spiritual perspective; pt has questions that she wanted to address with this terrazzo roller; pt admits that grief is hard and that I just have to get through it; sat with patient and listened to her concerns; pt welcomed prayer support for physical and emotional healing and help;
[2022-02-04] MEDS: oxyCODONE 5 MG Tablet 10 MG PO ×2 (14:26→21:26)
--- NOTE | 2022-02-04 14:31 | NURSING ---
DRESSINGS TO LLE CHANGED BY WOUND NURSE WITH THIS NURSE ASSISTING. TOOK APPROX 45 MINUTES. R' VERY PAINFUL T/O. ENCOURAGED R' TO TAKE PAIN MED. R' HESITANT BUT AGREED TO TAKE ONE OXYIR. GIVEN AT THIS TIME. WILL CONT' TO MONITOR.
--- NOTE | 2022-02-04 14:45 | NURSING ---
[facility] CALLED- WANTS A CONSULT FOR DR HOWARD WHILE ON UNIT. CALLED OFFICE AND SPOKE WITH ALEXANDER FOR CONSULT.
--- NOTE | 2022-02-04 14:53 | WOUNDNOTE ---
wound photo: left lower leg
--- NOTE | 2022-02-04 14:53 | WOUNDNOTE ---
wound photo: left lower leg
--- NOTE | 2022-02-04 18:06 | CON.PCM_ITS ---
Assessment & Plan Assessment/Plan (1) Venous insufficiency: (2) Delayed wound healing: (3) Ulcer of left lower extremity with fat layer exposed: (4) Closed fracture of left fibula and tibia: (5) Laceration of left leg: (6) Dry skin dermatitis: (7) Post-polio syndrome: (8) Chronic pain: QUALIFIERS: Chronic pain type: other chronic pain Qualified Code(s): G89.29 - Other chronic pain (9) Localized edema: (10) Osteoporosis: PLAN: This is a 71-year-old female with a history of post polio syndrome and wheelchair bound who suffered a fall while transferring from her wheelchair to the automobile landing directly on her knee and suffering a left lower extremity laceration and proximal tibial and fibular fracture of the left lower extremity. Her laceration was closed and orthopedics did splinting and immobilization of the fracture site with nonweightbearing to the left lower extremity. She also has left lower extremity ulceration and follows in the wound care center. She is admitted to TCU debilitation prior to discharge home. Dressings changed and intact to left lower extremity with splint immobilization. Continue nonweightbearing status to left lower extremity. Ulceration left lower extremity currently demonstrates no localized signs of infection. Will continue to monitor and perform debridement as necessary. Vascular: She currently follows with Dr. Morel and had angioplasty to the aorta and iliac level for reperfusion to the left lower limb on 02/12/2021 with additional stenting could be considered. She is to continue with a compressive dressing to aid in control of edema to the left lower extremity. She has palpable pedal pulses to the left lower extremity. Recommend continued proper diet control and nutritional supplementation to optimize her healing. She understands that with her ulceration and recent fracture she is at high risk for loss of limb. I answered all of her questions today to her satisfaction. Podiatry will continue to follow. She will follow up with Dr. Cooper in the wound care center upon her discharge. Please call for any questions or concerns. Thank you for your consultation. Dr. Lloyd Truong Jr. D.P.M. [facility] [phone] Note: [employer] speech recognition chief compressor station engineer software was used to create portions of this document. Sound-alike and misspelled words, as well as other chief compressor station engineer errors may be contained in the documentation. HPI Consult Data Date of Consult: 02/04/22 HPI Narrative HPI Narrative: LUCIE DUPONT, is a 71 F who presents for left lower extremity wound. She has history of polio and is wheelchair-bound to assist for ambulation. She states she suffered a fall transferring from her wheelchair in which she suffered a tibia and fibular fracture of the left leg. She was admitted to the transitional care unit for rehab and strength prior to discharge home. She follows with Dr. Cooper in the wound care center and was last seen on 01/28/2022 where she is under debridement and application of Apligraf, an advanced wound care product. She denies any nausea, vomiting, fever, chills, shortness of breath, or other constitutional symptoms. She states that she has been through a lot and is saddened by the recent loss of her and her recent fall that resulted in fracture of her left lower extremity. FOR[facility], LATER [facility] Medical History Alcohol abuse Anxiety Back pain C. difficile colitis Cellulitis of left leg Chronic cough Colitis Colonization status COPD (chronic obstructive pulmonary disease) Delayed wound healing Depression Diarrhea Former tobacco use History of Clostridium difficile colitis HLD (hyperlipidemia) HTN (hypertension) Hypothyroidism Left leg pain Leg edema, left Loose, teeth Migraines MVP (mitral valve prolapse) Open wound Other specified peripheral vascular diseases Polio Pseudomonas aeruginosa colonization Sinus tachycardia Smoker Tachycardia Ulcer of left lower extremity with fat layer exposed Ulcer of left lower extremity, limited to breakdown of skin Venous insufficiency Wears glasses Home Medications levothyroxine 137 mcg PO DAILY 11/28/19 [History Last Taken 02/02/21 mcg] acidophilus-pectin, citrus 2 tab PO DAILY 03/26/20 [History Last Taken 02/03/21] metoprolol tartrate 50 mg PO BREAKFAST 03/26/20 [History Last Taken 02/03/21] metoprolol tartrate 100 mg PO QHS 03/26/20 [History Last Taken 02/02/21] acetaminophen 650 mg PO Q6H PRN PRN tab 05/31/20 [Rx Last Taken Unknown] clopidogrel [Plavix] 75 mg PO DAILY 03/16/21 [History Last Taken Unknown] doxepin 10 mg PO QHS 02/01/22 [History Last Taken Unknown] pentoxifylline 400 mg PO DAILY 02/01/22 [History Last Taken Unknown] [id number] [Davion (with collagen)] 1 packet PO BIDCM 02/03/22 [History Last Taken Unknown] atorvastatin 20 mg PO QHS 02/03/22 [History Last Taken Unknown] Allergy/AdvReac Type Severity Reaction Status Date / Time naproxen [From Naprosyn] Allergy Rash Verified 02/01/22 15:05 Penicillins [PCN] Allergy Rash Verified 02/01/22 15:05 amoxicillin AdvReac Rash Verified 02/01/22 15:05 cephalexin [From Keflex] AdvReac Rash Verified 02/01/22 15:05 clotrimazole [From Lotrimin] AdvReac Rash Verified 02/01/22 15:05 diphenhydramine AdvReac Rash Verified 02/01/22 15:05 [From Benadryl] griseofulvin AdvReac Rash Verified 02/01/22 15:05 ibuprofen [From Motrin] AdvReac Rash Verified 02/01/22 15:05 miconazole AdvReac Rash Verified 02/01/22 15:05 [From Monistat 1 Combo Pack] propranolol [From Inderal LA] AdvReac Rash Verified 02/01/22 15:05 rofecoxib [From Vioxx] AdvReac Rash Verified 02/01/22 15:05 Sulfa (Sulfonamide AdvReac Rash Verified 02/01/22 15:05 Antibiotics) Family History Daughter Asthma Sister COPD (chronic obstructive pulmonary disease) Father COPD (chronic obstructive pulmonary disease) Heart disease Mother COPD (chronic obstructive pulmonary disease) Surgical History History of angioplasty of peripheral vessel History of hip surgery Hx of tubal ligation Social History (Updated 02/03/22 @ 20:[address] Dustin Sandoval MD) household members: none Smoking Status: Former smoker second hand exposure: No alcohol intake: current alcohol intake frequency: holidays/special occasions only substance use type: does not use caffeine: Yes (some times) Type: tea what type of physical activity do you participate in: none frequency: does not exercise ROS Constitutional Constitutional: Denies chills, fever(s) or headache(s) Eyes Eyes: Denies burning, diplopia or double vision ENT HEENT: Denies dizziness, headache(s), nasal congestion, nasal discharge or sore throat Cardiovascular Cardiovascular: Denies chest pain or palpitations Respiratory/Chest Respiratory/Chest: Denies cough, dyspnea, shortness of breath with exertion or wheezing Gastrointestinal Gastrointestinal: Denies constipation, diarrhea, nausea or vomiting Genitourinary Genitourinary: Denies dysuria or hematuria Musculoskeletal Musculoskeletal: Denies joint pain, joint stiffness or joint swelling Integumentary Integumentary: Denies jaundice, lesions, nail changes or rash Neurologic Neurologic: Denies dizziness, headache(s) or loss of vision Psychiatric Psychiatric: Denies anxiety or depression Endocrine Endocrinology: Denies polydipsia, polyphagia or polyuria Hematologic/Lymphatic Hematologic/Lymphatic: Denies easy bleeding or easy bruising Physical Exam Const alert, oriented x3 and no apparent distress General Appearance: cooperative and comfortable HEENT normocephalic Eyes PERRL General Eye: normal appearance of both eyes Neck General: normal visual inspection Lymph Lymphatic: no lymphadenopathy noted and no lymphedema noted Resp normal respiratory effort Cardio regular rate and regular rhythm Extremity no calf tenderness Peripheral Pulses: Yes posterior tibial pulses present and dorsalis pedis pulses present Skin no rashes or lesions noted and no jaundice General Skin Exam: dry skin Wound Narrative: Lower extremity ulceration completely circumferential about leg. There are some skin islands notable distally with continued epithelialization of the wound. Proximal wound site demonstrates hardening of the skin with some eschar crusting. Ulceration bases are granular and healthy appearing. There is no erythema, purulence, malodor, or proximal streaking noted. There is no bogginess or palpable fluctuance appreciated. Neuro oriented x3 Lab / Micro Data Result Diagrams: 02/04/22 05:17 02/04/22 05:17 Labs: Laboratory Results - last 24 hr 02/04/22 05:17: Sodium 136, Potassium 4.4, Chloride 104, Carbon Dioxide 28.0, Anion Gap 4 L, BUN 42 H, Creatinine 0.95, Estim Creat Clear Calc 50.12, Est GFR (MDRD) Af Amer 74, Est GFR (MDRD) Non-Af 61, BUN/Creatinine Ratio 44.0 H, Glucose 93, Calcium 8.8 02/04/22 05:17: WBC 14.1 H, RBC 3.13 L, Hgb 9.4 L, Hct 28.3 L, MCV 90.4, MCH 30.0, MCHC 33.2, RDW Std Deviation 46.9 H, RDW Coeff of Naseem 14.4, Plt Count 329, MPV 8.9, Immature Gran % (Auto) 0.600, Neut % (Auto) 66.4, Lymph % (Auto) 20.5, Humphreys % (Auto) 8.2, Eos % (Auto) 3.8, Baso % (Auto) 0.5, Absolute Neuts (auto) 9.4 H, Absolute Lymphs (auto) 2.88, Nucleated RBC % 0
--- NOTE | 2022-02-04 19:25 | NURSING ---
R' AND DAUGHTER STATING THEY DO NOT WANT R' AWAKENED PRIOR TO 0700. 0600 MEDS CHANGED TO 0800 PER REQUEST. UPDATED IN REPORT AND TO MECHANICAL FITTER.
[2022-02-04 21:21] VITALS: BP 110/48; PULSE 122
[2022-02-04] MEDS: Metoprolol Tartrate 100 MG Tablet PO (21:21)
[2022-02-04] MEDS: Atorvastatin Calcium 20 MG Tablet PO (21:21)
[2022-02-04] MEDS: Doxepin Hydrochloride 10 MG Capsule PO (21:21)
--- NOTE | 2022-02-04 21:47 | NURSING ---
Pt attends small amount of wet from purewick leaking, pt very hesitant to let us move her and clean her. Explained to pt that lying in wet attends increases risk of skin breakdown and not moving in the bed increases risk of pneumonia. Pt agreeable to let us clean her and the bed. Moved in bed using log roll with 3 assists, pt cries out with any slight movement or touch. Positioned legs on pillows for comfort. Pt agreed to have ice pack to knee and leg. Wants HOB elevated. Medicated for pain, pt refused to take 10mg of Oxy, very insistent on only taking 5mg, states I don't like the way it makes me feel.
[2022-02-05] MEDS: oxyCODONE 5 MG Tablet 10 MG PO (05:48)
[2022-02-05] MEDS: Levothyroxine 137 MCG Tablet PO (09:04)
[2022-02-05] MEDS: Pentoxifylline 400 MG Tablet PO (09:04)
[2022-02-05] MEDS: Senna/Docusate Sodium 1 Tablet PO (09:04)
[2022-02-05] MEDS: Clopidogrel Bisulfate 75 MG Tablet PO (09:04)
[2022-02-05] MEDS: Polyethylene Glycol 3350 17 GM PACKET PO (09:05)
[2022-02-05] MEDS: Acetaminophen 500 MG Tablet 1000 MG PO (10:25)
[2022-02-05 10:26] VITALS: BP 119/66; PULSE 133
[2022-02-05] MEDS: Metoprolol Tartrate 50 MG Tablet PO (10:26)
--- NOTE | 2022-02-05 11:05 | CASEMGMT ---
Social Work Met with patient to complete initial assessment. Introduced self and role. Pt wishes to have dtr be primary contact. Discussed code status and MOLST form. Pt confirms full code. MOLST communicated to , placed in chart. Explained Medicare benefit. Encouraged to contact secondary insurance to ensure copay coverage. Pt states goal is for pt to return home alone. Dtr and sister to continue to assist pt at home. Inquired if that would be sustainable for them. The sister is retired but the dtr works medical fee clerk. Pt didn't want to discuss alternative DC plans yet. Offered support for 's recent . Provided grief and counseling resources from acute SW. Pt did not want to talk about it currently. Offered ongoing support as needed. SW to continue to follow. DANA PatelW
--- NOTE | 2022-02-05 14:17 | PHA.CONS1_ITS ---
Progress Note - Pharmacy Subjective: TCU ADMISSION Objective: Allergies naproxen [From Naprosyn] Allergy (Verified 02/01/22 15:05) Rash Penicillins [PCN] Allergy (Verified 02/01/22 15:05) Rash amoxicillin Adverse Reaction (Verified 02/01/22 15:05) Rash cephalexin [From Keflex] Adverse Reaction (Verified 02/01/22 15:05) Rash clotrimazole [From Lotrimin] Adverse Reaction (Verified 02/01/22 15:05) Rash diphenhydramine [From Benadryl] Adverse Reaction (Verified 02/01/22 15:05) Rash griseofulvin Adverse Reaction (Verified 02/01/22 15:05) Rash ibuprofen [From Motrin] Adverse Reaction (Verified 02/01/22 15:05) Rash miconazole [From Monistat 1 Combo Pack] Adverse Reaction (Verified 02/01/22 15:05) Rash propranolol [From Inderal LA] Adverse Reaction (Verified 02/01/22 15:05) Rash rofecoxib [From Vioxx] Adverse Reaction (Verified 02/01/22 15:05) Rash Sulfa (Sulfonamide Antibiotics) Adverse Reaction (Verified 02/01/22 15:05) Rash Current Medications Generic Name Dose Route Start Last Admin Trade Name Freq PRN Reason Stop Dose Admin Acetaminophen 1,000 mg 02/04/22 07:55 02/05/22 10:25 Acetaminophen 500 Mg Tablet PO 1,000 mg Q6H PRN PRN Administration Pain Score 1-3 Atorvastatin Calcium 20 mg 02/03/22 22:00 02/04/22 21:21 Atorvastatin Calcium 20 Mg Tablet PO 20 mg QHS NEIL Administration Bisacodyl 10 mg 02/03/22 20:26 Bisacodyl 5 Mg Tablet PO DAILY PRN CONSTIPATION Clopidogrel Bisulfate 75 mg 02/05/22 08:00 02/05/22 09:04 Clopidogrel Bisulfate 75 Mg Tablet PO 75 mg DAILYCM NEIL Administration Doxepin HCl 10 mg 02/03/22 22:00 02/04/22 21:21 Doxepin Hydrochloride 10 Mg Capsule PO 10 mg QHS NEIL Administration L-Arginine/L-Glutamine/Calcium HMB 1 packet 02/04/22 08:00 02/05/22 09:04 Davion (Unflavored) Packet PO 1 packet BIDCM NEIL Administration Lactobacillus Acidophilus 2 tablet 02/05/22 08:00 02/05/22 09:04 Lactobacillus Acidophilus [facility] Levothyroxine Sodium 137 mcg 02/05/22 08:00 02/05/22 09:04 Levothyroxine 137 Mcg Tablet PO 137 [facility] Administration Metoprolol Tartrate 50 mg 02/04/22 08:00 02/05/22 10:26 Metoprolol Tartrate 50 Mg Tablet PO 50 mg BREAKFAST [facility] Administration Metoprolol Tartrate 100 mg 02/03/22 22:00 02/04/22 21:21 Metoprolol Tartrate 100 Mg Tablet PO 100 mg QHS [facility] Administration Oxycodone HCl 10 mg 02/04/22 07:55 02/05/22 05:48 Oxycodone 5 Mg Tablet PO 5 mg Q4H PRN PRN Administration Pain Score 6-10 Pentoxifylline 400 mg 02/04/22 08:00 02/05/22 09:04 Pentoxifylline 400 Mg Tablet PO [facility] Administration Polyethylene Glycol 17 gm 02/05/22 08:00 02/05/22 09:05 Polyethylene Glycol 3350 17 Gm Packet PO [facility]m [facility] Administration Senna/Docusate Sodium 1 tablet 02/05/22 08:00 02/05/22 09:04 Senna/Docusate Sodium 1 Tablet PO 1 tablet 0800,1800 [facility] Administration Sodium Chloride 10 - 40 ml 02/03/22 21:06 02/04/22 11:45 0.9% Saline Lock 10 Ml Syringe IV 10 ml UD PRN Administration SALINE FLUSH Tramadol HCl 50 mg 02/04/22 07:54 Tramadol 50 Mg Tablet PO Q6H PRN PRN Pain Score 4-5 Tuberculin PPD 0.1 ml 02/11/22 10:00 Tuberculin,Purif.Prot.Deriv. 50 Tu/Ml Vial ID 02/11/22 10:01 X1 ONE Problem List (Last Reviewed 02/03/22 @ 21:05 by Selma Glass) Ulcer of left lower extremity with fat layer exposed (Chronic) Closed fracture of left fibula and tibia (Acute) Laceration of left leg (Acute) Osteoporosis (Acute) Delayed wound healing (Chronic) Post-polio syndrome (Chronic) Venous insufficiency (Chronic) Chronic pain (Chronic) Peripheral arterial occlusive disease (Acute) Insomnia (Acute) Hyperlipidemia (Acute) Hypertension (Chronic) Hypothyroidism (Acute) Acute anemia (Acute) Fall (Acute) Debility (Acute) Contusion of right knee (Acute) Vital Signs Temp Pulse Resp BP Pulse Ox 97.8 F 133 H 20 H 119/66 96 02/03/22 21:32 02/05/22 10:26 02/03/22 21:32 02/05/22 10:26 02/03/22 21:45 Oxygen Delivery Method Room Air Weight: 60.2 kg Body Mass Index (BMI) 27.7 Sodium 136 mmol/L (136-145) 02/04/22 05:17 Potassium 4.4 mmol/L (3.5-5.1) 02/04/22 05:17 Chloride 104 mmol/L (98-107) 02/04/22 05:17 Carbon Dioxide 28.0 mmol/L (21.0-32.0) 02/04/22 05:17 Anion Gap 4 (5-15) L 02/04/22 05:17 BUN 42 mg/dL (7-18) H 02/04/22 05:17 Creatinine 0.95 mg/dL (0.55-1.02) 02/04/22 05:17 Est GFR (MDRD) Af Amer 74 mL/min (>60) 02/04/22 05:17 Est GFR (MDRD) Non-Af 61 mL/min (>60) 02/04/22 05:17 BUN/Creatinine Ratio 44.0 RATIO (10-20) H 02/04/22 05:17 Glucose 93 mg/dL (74-106) 02/04/22 05:17 Assessment/Plan: 1. Pain: Tylenol 1000mcg PO Q6h PRN Pain 1-3, Tramadol 50mg PO Q6h PRN Pain 4-5, Oxycodone 10mg PO Q4h PRN Pain 6-10. Please continue to monitor patient for S/S increased/decreased pain, oversedation, renal function ( last CrCl =50mL/min on 02/04/22), PRN medication usage. -- So far, the patient has used 2 doses of Tylenol, Zero doses of Tramadol. The patient has used 3 doses of Oxycodone, however the patient has only taken 5mg despite prescribed dose of 10mg. Per nursing, the patient is refusing a 10mg dose, only wants 5mg. Please change dose to Oxycodone 5mg PO Q4h PRN to match what patient is actually taking, thank you. 2. HTN: Lopressor 50mg PO in the AM and 100mg PO QHS. Please continue to monitor BP (last 119/66), pulse 133 BPM. 3. HLD: Lipitor 20mg PO QHS. Please obtain lipid panel annually or sooner if clinically indicated. Of note; the patient does not have any lipid panels on file in [employer]. 4. PAD: Plavix 75mg PO Daily, Trental 400mg PO Daily.Please continue to monitor. Podiatry following patient while in TCU as well as an outpatient. Please continue to monitor for S/S bleeding as well with Plavix use. 5. Hypothyroid: Synthroid 147mcg PO Daily. Please continue to monitor thyroid function tests as clinically indicated, monitor for S/S hypothyroidism. 6. General Wellness: Acidophilus 2 tab PO Daily. Please continue to monitor. Psychotropic Medications: 7. Insomnia: Doxepin 10mg PO QHS. This is a [employer] medication and can increase risk of anticholinergic effects as well as orthostatic hypotension. Please evaluate for appropriate use in this specific patient, thank you. Unnecessary Medications: None Bowel Regimen: Miralax 17g PO Daily, Senna/Docusate 1 tab PO BID, Dulcolax 10mg PO Daily PRN. Please continue to monitor for increased/decreased constipation and/or diarrhea. Date of Note:: 02/05/22
--- NOTE | 2022-02-05 15:33 | NURSING ---
Benzene Washer Operator Note: Checked on resident for activity needs. Res up in bed, awake, talking with family and friend visiting. Res smiling, engaged and states that she is sitting comfortably in bed at this time. No needs noted, but thanked me for checking.
[2022-02-05 15:34] VITALS: BP 103/49; PULSE 94; RESP 18; TEMP 36.3; O2SAT 95
[2022-02-05 20:04] VITALS: RESP 18; O2SAT 98
[2022-02-05 21:16] VITALS: RESP 16; O2SAT 95
[2022-02-05 21:18] VITALS: BP 124/58; PULSE 136
[2022-02-05] MEDS: Doxepin Hydrochloride 10 MG Capsule PO (21:18)
[2022-02-05] MEDS: Atorvastatin Calcium 20 MG Tablet PO (21:18)
[2022-02-05] MEDS: Metoprolol Tartrate 100 MG Tablet PO (21:18)
[2022-02-05] MEDS: oxyCODONE 5 MG Tablet PO (21:20)
--- NOTE | 2022-02-06 | RAD_ITS ---
STUDY: X-RAY CHEST REASON FOR EXAM: Female, 71 years old. fever TECHNIQUE: AP and lateral upright. COMPARISON: March 16, 2021 AP, March 26, 2020 AP portable upright. FINDINGS: The lungs are clear and expanded. There is no demonstrated pleural abnormality. Small bone island in right anterior fourth rib or small calcified granuloma in the right midlung field and similar appearance over the right sixth anterior rib are stable compared to March 26, 2020. Normal size heart. Normal mediastinum and jarvis with the exception of mild peripheral calcification of the aortic arch. Normal visualized pulmonary arteries. Normal visualized aortic arch and descending thoracic aorta. Minimal thoracic scoliosis. The right and left acromioclavicular joints are not included. There is no demonstrated abnormality of the visualized soft tissue structures of the upper abdomen. There is a thin metallic needlelike structure projecting over the right lower neck, clavicle and right lung apex, measuring at least 3 cm in length by 1 mm on the frontal view, suspected to be external. RAD/Chest PA and Lateral IMPRESSION: Stable chest. With the exception of indeterminate metallic thin linear structure projecting partially over the right lung apex, suspected to be external or in the soft tissues. Electronically Signed: Lyndsay Eason MD at 1:23 EDT ,
[2022-02-06 00:18] VITALS: PULSE 108
[2022-02-06] MEDS: Levothyroxine 137 MCG Tablet PO (09:38)
[2022-02-06] MEDS: Senna/Docusate Sodium 1 Tablet PO ×2 (09:38→16:45)
[2022-02-06] MEDS: Pentoxifylline 400 MG Tablet PO (09:38)
[2022-02-06] MEDS: Clopidogrel Bisulfate 75 MG Tablet PO (09:38)
[2022-02-06 09:39] VITALS: BP 129/62; PULSE 130
[2022-02-06] MEDS: Metoprolol Tartrate 50 MG Tablet PO (09:39)
[2022-02-06] MEDS: Acetaminophen 500 MG Tablet 1000 MG PO (09:42)
[2022-02-06] MEDS: traMADol 50 MG Tablet PO ×2 (11:23→22:38)
--- NOTE | 2022-02-06 13:13 | PN_ITS ---
Subjective Subjective This is a 71 F who is seen bedside for follow-up of left lower extremity wound. She has history of polio and is wheelchair-bound to assist for ambulation. She suffered a fall transferring from her wheelchair in which she suffered a proximal tibia and fibular fracture of the left leg. She denies any constitutional symptoms today. Her only complaint is continued pain in the left lower extremity secondary to her fracture. Objective Data Objective Data Vital Signs: Vital Signs Temp Pulse Resp BP Pulse Ox 97.3 F L 130 H 16 129/62 H 95 02/05/22 15:34 02/06/22 09:39 02/05/22 21:16 02/06/22 09:39 02/05/22 21:16 Oxygen Delivery Method Room Air Weight: 60.2 kg Body Mass Index (BMI) 27.7 Intake & Output: Intake and Output for Last 24 Hours 02/04/22 02/05/22 02/06/22 23:59 23:59 23:59 Intake Total 240 / 240 480 / 480 40 / 40 Output Total 300 / 300 625 / 625 Balance 240 / 240 180 / 180 -585 / -585 Lab / Micro Data Result Diagrams: 02/04/22 05:17 02/04/22 05:17 Physical Exam Const alert, oriented x3 and no apparent distress General Appearance: cooperative and comfortable HEENT normocephalic Eyes PERRL General Eye: normal appearance of both eyes Neck General: normal visual inspection Lymph Lymphatic: no lymphadenopathy noted and no lymphedema noted Resp normal respiratory effort Cardio regular rate and regular rhythm Extremity no calf tenderness Skin no rashes or lesions noted and no jaundice General Skin Exam: dry skin Wound Narrative: Lower extremity ulceration completely circumferential about leg. There are some skin islands notable distally with continued epithelialization of the wound. Proximal wound site demonstrates hardening of the skin with some eschar crusting. Ulceration bases are granular and healthy appearing. There is no erythema, purulence, malodor, or proximal streaking noted. There is no bogginess or palpable fluctuance appreciated. Neuro oriented x3 Assessment & Plan Assessment/Plan (1) Venous insufficiency: (2) Delayed wound healing: (3) Ulcer of left lower extremity with fat layer exposed: (4) Closed fracture of left fibula and tibia: (5) Laceration of left leg: (6) Dry skin dermatitis: (7) Post-polio syndrome: (8) Chronic pain: QUALIFIERS: Chronic pain type: other chronic pain Qualified Code(s): G89.29 - Other chronic pain (9) Localized edema: (10) Osteoporosis: PLAN: This is a 71-year-old female with a history of post polio syndrome and wheelchair bound who suffered a fall while transferring from her wheelchair to the automobile landing directly on her knee and suffering a left lower extremity laceration and proximal tibial and fibular fracture of the left lower extremity. Her laceration was closed and orthopedics did splinting and immobilization of the fracture site with nonweightbearing to the left lower extremity. She also has left lower extremity ulceration and follows in the wound care center. She is admitted to TCU debilitation prior to discharge home. Dressings changed today consisting of Adaptic, ABD, Kerlix, web roll, posterior splint, and Candelario wrap with wound care nurse, Larissa, and intact to left lower extremity with splint immobilization. Continue nonweightbearing status to left lower extremity. Dressings to be changed every other day. Knee immobilizer intact to the right lower extremity. Ulceration left lower extremity currently demonstrates no localized signs of infection. Will continue to monitor and perform debridement as necessary. Vascular: She currently follows with Dr. Morel and had angioplasty to the aorta and iliac level for reperfusion to the left lower limb on 02/12/2021 with additional stenting could be considered. She is to continue with a compressive dressing to aid in control of edema to the left lower extremity. She has palpable pedal pulses to the left lower extremity. Recommend continued proper diet control and nutritional supplementation to optimize her healing. She understands that with her ulceration and recent fracture she is at high risk for loss of limb. I answered all of her questions today to her satisfaction. Podiatry will continue to follow. She will follow up with Dr. Cooper in the wound care center upon her discharge. Please call for any questions or concerns. Thank you for your consultation. Dr. Lloyd Truong Jr. D.P.M. [facility] [place] [phone] Note: [employer] speech recognition fire boat engineer software was used to create portions of this document. Sound-alike and misspelled words, as well as other fire boat engineer errors may be contained in the documentation.
[2022-02-06 15:23] VITALS: BP 113/71; PULSE 108; RESP 18; TEMP 36.3; O2SAT 93
[2022-02-06 22:39] VITALS: BP 120/63; PULSE 147
[2022-02-06] MEDS: Metoprolol Tartrate 100 MG Tablet PO (22:39)
[2022-02-06] MEDS: Atorvastatin Calcium 20 MG Tablet PO (22:39)
[2022-02-06] MEDS: Doxepin Hydrochloride 10 MG Capsule PO (22:40)
[2022-02-06 23:00] VITALS: BP 120/48; PULSE 120; RESP 20; TEMP 38
--- NOTE | 2022-02-06 23:38 | NURSING ---
Addendum entered by Ladonna Jordan 02/06/22 23:51: continued: all orders repeated back to when received Original Note: ENTRY LEVEL RECEPTIONIST reports oral temp 100.4, patient assessed. Lung sounds clear, reports chronic moist cough, states I feel fine, O2 at 94% on RA, resps 20/min, BP 102/48, HR 120. contacted via telephone notified of elevated temp, heart rate, LLE treatments reported by ENTRY LEVEL RECEPTIONIST as completed by wound nurse, patient states they said they look good and chronic moist cough. Poor meal intake reviewed. Reviewed allergy list with . New orders received: 1. CBC/diff 2.BMP 3. Straight cath UA C&S 4. Chest x-ray 5. 2 set blood cultures 6. Levaquin 750mg IV daily x7 days 7. NS@75cc/hr 8.Repeat labs in AM 9. Attempt to obtain sputum culture and send for gram stain culture 10. Repeat CBC with diff and BMP in AM
[2022-02-07 00:23] VITALS: TEMP 37.1
--- NOTE | 2022-02-07 00:37 | NURSING ---
Patient educated on new orders received from Dr. Sandoval, patient states she believes she has received Levaquin in the past without issue, reviewed with patient several ATB listed on allergy list. Pt. states she believes the listed antibiotics on allergy list gave me c-diff. Pharmacy contacted via telephone requesting if any contraindications with Levaquin and previous history c-diff per pt. report, per pharmacy safe to administer.
[2022-02-07] MEDS: 0.9% Normal Saline 1,000 ML 75 ML IV ×3 (00:44→20:51)
[2022-02-07] MEDS: levoFLOXacin IV 750 MG/150 ML BAG 100 MG IV (00:44)
[2022-02-07 00:50] LABS: Absolute Lymphocyte Count 1.07 X10^3/uL (0.83-4.51); Absolute Neutrophil Count 16.4 X10^3/uL (2.0-7.7); Basophil# 0.08 X10^3/uL; Basophil% 0.4 % (0-1); Eosinophil# 0.16 X10^3/uL; Eosinophils% 0.8 % (0-5); Hematocrit 28.1 % (37-47); Hemoglobin 9.1 g/dL (12.0-15.0); Lymphocyte # 1.07 X10^3/ul (0.83-4.51); Lymphocyte % 5.6 % (19-41); Mean Corp Hgb Conc 32.4 g/dL (32-36); Mean Corpuscular Hgb 28.8 pg (27.0-32.0); Mean Corpuscular Volume 88.9 fL (81-99); Mean Platelet Vol. 8.8 fl (6.2-12.0); Monocyte# 1.45 X10^3/uL; Monocyte% 7.5 % (0-10); NRBC Flagged by Analyzer 0 % (0-5); Neutrophil # 16.39 X10^3/uL (2.7-7.7); Neutrophil % 85.1 % (47-70); Platelet Count 416 K/mm3 (150-450); RBC Distribution Width CV 14.1 % (11.6-14.6); RBC Distribution Width SD 45.6 fl (35.1-43.9); Red Blood Count 3.16 M/mm3 (4.2-5.4); White Blood Count 19.3 K/mm3 (4.4-11.0)
[2022-02-07 01:09] LABS: Anion Gap 8 (5-15); BUN 48 mg/dL (7-18); BUN/Creat Ratio 47.1 RATIO (10-20); Chloride 101 mmol/L (98-107); Creatinine, Serum 1.02 mg/dL (0.55-1.02); EST Glomerular Filtration Rate 56 mL/min (>60); Est Glom Filt Rate - Afr Amer 68 mL/min (>60); Estimated Creatinine Clearance 46.68 ml/min; Glucose 126 mg/dL (74-106); Potassium 4.1 mmol/L (3.5-5.1); Sodium Level 134 mmol/L (136-145)
--- NOTE | 2022-02-07 01:33 | NURSING ---
Presents in bed, responds to verbal stimuli. No averse effect observed or reported related to IV ATB, patient states I feel fine. Resps even and unlabored. No distress observed or reported. Call light in reach.
[2022-02-07 03:02] LABS: Mucous, Urine 0 SEEN /hpf (<or=2+); Squamous Epithelial Cells - UA 0 SEEN /hpf (5-10)
[2022-02-07 03:03] LABS: Color, Urine Yellow (Yellow); Glucose, Dipstick Normal (Normal); Ketone-Dipstick 15 mg/dl (Negative); Leukocyte Esterase-Dipstick 500 /ul (Negative); Nitrite-Dipstick Positive (Negative); Occult Blood-Urine 50 /ul (Negative); Protein-Dipstick 30 mg/dl (Negative); Urine Bilirubin Dipstick Negative (Negative); Urine Clarity Sl. Cloudy (Clear); Urine Urobilinogen Normal (Normal)
[2022-02-07 03:10] LABS: Bacteria 3+ /hpf (None Seen); Red Blood Cells-Urine 0-5 SEEN /hpf (0-5); White Blood Cells >100 SEEN /hpf (0-5)
[2022-02-07 07:23] VITALS: TEMP 37.4
[2022-02-07 07:44] LABS: Absolute Lymphocyte Count 1.53 X10^3/uL (0.83-4.51); Absolute Neutrophil Count 14.1 X10^3/uL (2.0-7.7); Basophil# 0.04 X10^3/uL; Basophil% 0.2 % (0-1); Eosinophil# 0.22 X10^3/uL; Eosinophils% 1.3 % (0-5); Hematocrit 25.4 % (37-47); Hemoglobin 8.2 g/dL (12.0-15.0); Lymphocyte # 1.53 X10^3/ul (0.83-4.51); Lymphocyte % 8.7 % (19-41); Mean Corp Hgb Conc 32.3 g/dL (32-36); Mean Corpuscular Hgb 28.7 pg (27.0-32.0); Mean Corpuscular Volume 88.8 fL (81-99); Mean Platelet Vol. 8.7 fl (6.2-12.0); Monocyte# 1.46 X10^3/uL; Monocyte% 8.3 % (0-10); NRBC Flagged by Analyzer 0 % (0-5); Neutrophil % 80.7 % (47-70); Platelet Count 349 K/mm3 (150-450); RBC Distribution Width SD 45.5 fl (35.1-43.9); Red Blood Count 2.86 M/mm3 (4.2-5.4); White Blood Count 17.5 K/mm3 (4.4-11.0)
[2022-02-07 08:12] LABS: Anion Gap 7 (5-15); BUN 40 mg/dL (7-18); BUN/Creat Ratio 46.1 RATIO (10-20); Calcium,Total 8.7 mg/dL (8.5-10.1); Chloride 104 mmol/L (98-107); Creatinine, Serum 0.87 mg/dL (0.55-1.02); EST Glomerular Filtration Rate 68 mL/min (>60); Est Glom Filt Rate - Afr Amer 82 mL/min (>60); Estimated Creatinine Clearance 54.73 ml/min; Glucose 97 mg/dL (74-106); Sodium Level 134 mmol/L (136-145)
[2022-02-07] MEDS: Clopidogrel Bisulfate 75 MG Tablet PO (08:30)
[2022-02-07] MEDS: Levothyroxine 137 MCG Tablet PO (08:30)
[2022-02-07] MEDS: Pentoxifylline 400 MG Tablet PO (08:30)
[2022-02-07] MEDS: Senna/Docusate Sodium 1 Tablet PO ×2 (08:30→17:03)
[2022-02-07 08:32] VITALS: BP 124/59; PULSE 131
[2022-02-07] MEDS: Metoprolol Tartrate 50 MG Tablet PO (08:32)
--- NOTE | 2022-02-07 08:41 | NURSING ---
Addendum entered by Ladonna Jordan 02/07/22 08:48: Reviewed listed allergies with during phone communication Original Note: Contacted via telephone regarding lab results, urine results, and chest x-ray result including report of thin metallic needlelike structure suspected to be external or in the soft tissue. Dr. Sandoval notified that patient denies any implanted device to site and no external metallic structure observed with assessment. Per no new order at this time regarding think metallic needlelike structure. New orders received: 1. Stop Levaquin 2. Start Cipro 500mg by mouth BID x6days 3. Keep NS running as ordered until patient consumes meal 75-100%
[2022-02-07] MEDS: Ciprofloxacin 500 MG Tablet PO ×2 (10:57→17:04)
[2022-02-07] MEDS: traMADol 50 MG Tablet PO (11:02)
--- NOTE | 2022-02-07 13:43 | NURSING ---
Notified Dr. Sandoval of family and pt reporting that Dr. De La Cruz told them, whenever pt is on an antibiotic, she should also be on Vanco prophylactically for Cdiff. Dr. Sandoval ordered Vanco 125mg BID for 6 days and Acidophilous. BID. Orders repeated back, will add orders.
[2022-02-07 16:00] VITALS: BP 128/54; PULSE 110; RESP 16; TEMP 36.9; O2SAT 95
[2022-02-07] MEDS: Vancomycin 125 MG/5 ML Susp PO.SYRINGE PO (17:03)
[2022-02-07 20:51] VITALS: BP 117/45; PULSE 125
[2022-02-07] MEDS: Doxepin Hydrochloride 10 MG Capsule PO (20:51)
[2022-02-07] MEDS: Atorvastatin Calcium 20 MG Tablet PO (20:51)
[2022-02-08] MEDS: Vancomycin 125 MG/5 ML Susp PO.SYRINGE PO ×2 (04:54→17:08)
[2022-02-08] MEDS: Ciprofloxacin 500 MG Tablet PO ×2 (04:54→17:08)
[2022-02-08] MEDS: Levothyroxine 137 MCG Tablet PO (08:10)
[2022-02-08] MEDS: Acetaminophen 500 MG Tablet 1000 MG PO ×2 (08:10→15:15)
[2022-02-08] MEDS: Pentoxifylline 400 MG Tablet PO (08:10)
[2022-02-08] MEDS: Clopidogrel Bisulfate 75 MG Tablet PO (08:10)
[2022-02-08 08:12] VITALS: BP 124/66; PULSE 77
[2022-02-08] MEDS: Metoprolol Tartrate 50 MG Tablet PO (08:12)
[2022-02-08] MEDS: Senna/Docusate Sodium 1 Tablet PO ×2 (08:12→17:08)
[2022-02-08] MEDS: Ondansetron ODT 4 MG Tablet PO (12:55)
[2022-02-08 14:42] VITALS: BP 114/48; PULSE 109; RESP 19; TEMP 36.4; O2SAT 96
[2022-02-08] MEDS: 0.9% Normal Saline 1,000 ML 75 ML IV (17:07)
[2022-02-08] MEDS: Doxepin Hydrochloride 10 MG Capsule PO (19:56)
[2022-02-08] MEDS: Atorvastatin Calcium 20 MG Tablet PO (19:56)
[2022-02-08 19:57] VITALS: BP 122/61; PULSE 112
[2022-02-08] MEDS: Metoprolol Tartrate 100 MG Tablet PO (19:57)
[2022-02-08] MEDS: traMADol 50 MG Tablet PO (20:03)
[2022-02-08 21:57] VITALS: PULSE 110; RESP 14; O2SAT 95
[2022-02-09] MEDS: 0.9% Normal Saline 1,000 ML 75 ML IV ×3 (05:24→21:09)
[2022-02-09] MEDS: Ciprofloxacin 500 MG Tablet PO ×2 (05:24→17:33)
[2022-02-09] MEDS: Vancomycin 125 MG/5 ML Susp PO.SYRINGE PO ×2 (05:24→17:34)
[2022-02-09] MEDS: Ondansetron ODT 4 MG Tablet PO (08:38)
[2022-02-09 08:44] VITALS: BP 115/46; PULSE 127
[2022-02-09] MEDS: Metoprolol Tartrate 50 MG Tablet PO (08:44)
[2022-02-09] MEDS: Clopidogrel Bisulfate 75 MG Tablet PO (09:41)
[2022-02-09] MEDS: Pentoxifylline 400 MG Tablet PO (09:42)
[2022-02-09] MEDS: Levothyroxine 137 MCG Tablet PO (09:42)
[2022-02-09] MEDS: Acetaminophen 500 MG Tablet 1000 MG PO (11:56)
--- NOTE | 2022-02-09 15:57 | CHAPLAIN ---
Type of Pastoral Visit ___ Initial Visit _x__ Follow-up Visit ___ On-call Visit ___ General Patient Visit ___ Spiritual Assessment ___ Family Conference ___ Bereavement ___ Rapid Response ___ Code Blue ___ Other (describe below) Pastoral Care Referral From _x__ Patient ___ Family ___ Nurse ___ Physician ___ Assessment Clinician ___ Solid Waste Division Supervisor ___ Other (describe below) Sacrament/Intervention _x__ Active listening ___ Anointing ___ Mu-Ism ___ Bereavement ___ Communion ___ Amelia exploration ___ ___ Life review ___ Prayer ___ Reconciliation ___ Sacrament of Sick ___ Supportive presence ___ Wedding ___ Other (describe below) Pastoral Comments follow up to talk with patient and see how she is managing; brief conversation on her grief and her recovery; pt talks a little about her grandchildren;
[2022-02-09 16:00] VITALS: BP 101/41; PULSE 91; RESP 18; TEMP 36.3; O2SAT 95
[2022-02-09 19:42] VITALS: BP 124/65; PULSE 125
[2022-02-09] MEDS: Metoprolol Tartrate 100 MG Tablet PO (19:42)
[2022-02-09] MEDS: Doxepin Hydrochloride 10 MG Capsule PO (19:43)
[2022-02-09] MEDS: Atorvastatin Calcium 20 MG Tablet PO (19:43)
[2022-02-10] MEDS: Ciprofloxacin 500 MG Tablet PO ×2 (05:31→16:51)
[2022-02-10] MEDS: Vancomycin 125 MG/5 ML Susp PO.SYRINGE PO ×2 (05:31→16:56)
[2022-02-10 09:10] VITALS: BP 102/51; PULSE 128
[2022-02-10] MEDS: Metoprolol Tartrate 50 MG Tablet PO (09:10)
[2022-02-10] MEDS: Clopidogrel Bisulfate 75 MG Tablet PO (09:10)
[2022-02-10] MEDS: Pentoxifylline 400 MG Tablet PO (09:11)
--- NOTE | 2022-02-10 10:17 | WOUNDNOTE ---
wound photo: left lower leg
[2022-02-10] MEDS: Levothyroxine 137 MCG Tablet PO (10:18)
[2022-02-10] MEDS: Acetaminophen 500 MG Tablet 1000 MG PO ×2 (10:18→20:30)
--- NOTE | 2022-02-10 10:18 | WOUNDNOTE ---
wound photo: left lower leg (lateral view)
[2022-02-10] MEDS: 0.9% Normal Saline 1,000 ML 75 ML IV (10:19)
--- NOTE | 2022-02-10 10:19 | WOUNDNOTE ---
wound photo: left lower leg
--- NOTE | 2022-02-10 11:46 | CASEMGMT ---
Social Work BIMS and PHQ-9 completed for MDS assessment. Candice Li, BIOMEDICAL FIELD SERVICE ENGINEER LUTE PACKER OR APPLIER
[2022-02-10 14:21] VITALS: BP 117/41; PULSE 102; RESP 18; TEMP 36.2; O2SAT 94
[2022-02-10 20:30] VITALS: BP 118/56; PULSE 130
[2022-02-10] MEDS: Doxepin Hydrochloride 10 MG Capsule PO (20:30)
[2022-02-10] MEDS: Metoprolol Tartrate 100 MG Tablet PO (20:30)
[2022-02-10] MEDS: Atorvastatin Calcium 20 MG Tablet PO (20:32)
[2022-02-10 23:09] VITALS: PULSE 130
[2022-02-10] MEDS: traMADol 50 MG Tablet PO (23:42)
[2022-02-11] MEDS: 0.9% Normal Saline 1,000 ML 75 ML IV ×2 (00:26→18:27)
[2022-02-11] MEDS: Acetaminophen 500 MG Tablet 1000 MG PO ×2 (05:31→14:41)
[2022-02-11] MEDS: Ciprofloxacin 500 MG Tablet PO ×2 (05:32→17:29)
[2022-02-11] MEDS: Vancomycin 125 MG/5 ML Susp PO.SYRINGE PO ×2 (05:35→17:34)
[2022-02-11] MEDS: Levothyroxine 137 MCG Tablet PO (05:35)
[2022-02-11 05:57] LABS: Absolute Lymphocyte Count 1.64 X10^3/uL (0.83-4.51); Absolute Neutrophil Count 6.7 X10^3/uL (2.0-7.7); Basophil# 0.05 X10^3/uL; Basophil% 0.5 % (0-1); Eosinophil# 0.45 X10^3/uL; Eosinophils% 4.8 % (0-5); Hematocrit 21.3 % (37-47); Hemoglobin 6.7 g/dL (12.0-15.0); Lymphocyte # 1.64 X10^3/ul (0.83-4.51); Lymphocyte % 17.4 % (19-41); Mean Corp Hgb Conc 31.5 g/dL (32-36); Mean Corpuscular Hgb 28.6 pg (27.0-32.0); Mean Platelet Vol. 8.3 fl (6.2-12.0); Monocyte# 0.58 X10^3/uL; Monocyte% 6.1 % (0-10); NRBC Flagged by Analyzer 0 % (0-5); Neutrophil # 6.67 X10^3/uL (2.7-7.7); Neutrophil % 70.6 % (47-70); Platelet Count 355 K/mm3 (150-450); RBC Distribution Width SD 46.2 fl (35.1-43.9); Red Blood Count 2.34 M/mm3 (4.2-5.4); White Blood Count 9.5 K/mm3 (4.4-11.0)
[2022-02-11 06:19] LABS: Anion Gap 3 (5-15); BUN 14 mg/dL (7-18); BUN/Creat Ratio 21.7 RATIO (10-20); Calcium,Total 8.1 mg/dL (8.5-10.1); Chloride 113 mmol/L (98-107); Creatinine, Serum 0.65 mg/dL (0.55-1.02); EST Glomerular Filtration Rate 96 mL/min (>60); Est Glom Filt Rate - Afr Amer 116 mL/min (>60); Estimated Creatinine Clearance 47.62 ml/min; Glucose 98 mg/dL (74-106); Potassium 3.2 mmol/L (3.5-5.1); Sodium Level 140 mmol/L (136-145)
[2022-02-11] MEDS: Clopidogrel Bisulfate 75 MG Tablet PO (09:00)
[2022-02-11] MEDS: Pentoxifylline 400 MG Tablet PO (09:00)
[2022-02-11 09:02] VITALS: BP 103/44; PULSE 102
[2022-02-11] MEDS: Tuberculin,Purif.prot.deriv. 50 TU/ML Vial 0.1 ML ID (10:40)
--- NOTE | 2022-02-11 10:46 | CASEMGMT ---
Social Work IDT met with patient and daughter for care plan meeting. Discussed patient's progress in OT and nursing. Pt is currently only getting OT. Pt has f/u appt with ortho today and then PT will review new orders and re-eval. Explained Medicare benefit. Encouraged to contact secondary insurance to ensure copay coverage. Discussed the best use of skilled Medicare days and needing a 60 day consecutive break in service to get a new Medicare benefit. Broached topic of alternative DC plan, IDT recommending SNF. Explained financial liability of SNF vs Medicaid. Pt states she will not qualify for Medicaid and able to pay out of pocket. Provided SNF list for [facility] with Medicare data. Pt and dtr agreeable to SNF, but initially were unrealistic and wanting to return home. Encouraged to discuss NWBS and plans for DC at ortho appt today. SW offered ongoing assistance with DC plans. SW to continue to follow. Candice Li, DANA TRUJILLOW
--- NOTE | 2022-02-11 10:52 | NURSING ---
Addendum entered by Janet Alvares 02/11/22 15:11: Roseanna RN spoke with Dr Sandoval about fluids and hgb and he would like us to continue to infuse them when she returns from appointment. Reconnected to fluids at this time. Also ok to use purewick per Angela, community sports coordinator. Purewick placed at this time. Original Note: Repositioned in bed. Both legs elevated in bed. Resident complains of pain #5/10 to Lt leg but not sure if she would like pain medication or not. Reports that she is feeling a little better and eating better. IV fluids stopped at this time due to eating better and low hgb 6.7. Will update Dr Sandoval and see if they should be dc'd.
[2022-02-11] MEDS: traMADol 50 MG Tablet PO (11:28)
--- NOTE | 2022-02-11 11:36 | NURSING ---
dr savage aware of HGB 6.7, new order to admin 2 units blood. called infusion center, able to get pt in tomorrow at 0900. dr savage updated. pt asymptomatic. held lopressor per pt request for BP 103/44 & HR 102. pt does have appt with dr Ye today at 1:15, going by cot.
--- NOTE | 2022-02-11 12:21 | NURSING ---
Addendum entered by Janet Alvares 02/11/22 15:10: Resident back from appointment at 2:45. Positioned in bed. Daughter at bedside. Original Note: pt off unit via cot to Ortho appt at this time with Dr Ye
--- NOTE | 2022-02-11 12:54 | NURSING ---
[facility] calls and reports that resident is at their office and she does not have an appointment time as no one called to confirm. They are requesting that her medical information be faxed to their office at #[phone].
[2022-02-11 14:56] VITALS: BP 126/53; PULSE 130; RESP 16; TEMP 36; O2SAT 96
[2022-02-11] MEDS: 0.9% Saline Lock 10 ML Syringe IV (15:08)
--- NOTE | 2022-02-11 15:15 | NURSING ---
Resident requesting both lower siderails to be up at this time and can lower upper Lt side board. She says she needs lower sideboards to reposition herself in bed.
--- NOTE | 2022-02-11 15:20 | NURSING ---
No orders came back from office visit with Dr Ye. Office called and message left for them to call us with any new orders.
--- NOTE | 2022-02-11 16:42 | CASEMGMT ---
Social Work Received call from dtr. Dtr explained the did still see pt even though the pt was not on their schedule. Per dtr, stated pt is WBAT on right leg; if pt states it is painful, do not weight bear, but no formal restrictions; left leg remains NWBS. Pt will have follow up appt in 4-6 wks. Per dtr, states at that fu appt, if no bone improvement, amputation will be needed, but appears optimistic that will not happen. SW confirmed with dtr the DC plan remains SNF for intermediate stay until f/u appt and further therapy is needed. IDT wants to preserve Medicare days and currently pt's needs are halfway, not skillable. Dtr expressed understanding. Requested referrals to [facility] and [facility]. Dtr states pt wants to continue to come to [place] for specialist appts, which need to be cot transports. Explained if pt is not skilled, that is a cost to the pt. If pt is skilled, it is a cost to the facility. Dtr expressed understanding. SW to make referrals to SNF. Will continue to follow. Candice Li ,DANA ANDRES
[2022-02-11 21:01] VITALS: BP 126/54; PULSE 123
[2022-02-11 21:03] VITALS: PULSE 123
[2022-02-11] MEDS: Doxepin Hydrochloride 10 MG Capsule PO (21:03)
[2022-02-11] MEDS: Metoprolol Tartrate 100 MG Tablet PO (21:03)
[2022-02-11] MEDS: Atorvastatin Calcium 20 MG Tablet PO (21:03)
[2022-02-11] MEDS: Ondansetron ODT 4 MG Tablet PO (21:09)
--- NOTE | 2022-02-11 22:46 | NURSING ---
Patient vomited moderate amount after taking PM meds, unsure if meds stayed down. Gave zofran, kenny antonio, and crackers. Nausea resolved.
[2022-02-12 03:48] VITALS: PULSE 112
[2022-02-12] MEDS: Vancomycin 125 MG/5 ML Susp PO.SYRINGE PO ×2 (06:07→18:03)
[2022-02-12] MEDS: Ondansetron ODT 4 MG Tablet PO (06:09)
[2022-02-12] MEDS: Levothyroxine 137 MCG Tablet PO (06:11)
[2022-02-12] MEDS: Ciprofloxacin 500 MG Tablet PO ×2 (06:11→18:03)
[2022-02-12] MEDS: 0.9% Normal Saline 1,000 ML 75 ML IV (08:35)
--- NOTE | 2022-02-12 08:54 | PN_ITS ---
Subjective Subjective 70-year-old female seen bedside for dressing change. Improved pain and swelling to her left lower extremity he denies any chest pain calf pain shortness of breath. Denies any constitutional symptoms. No other complaints. Objective Data Objective Data Vital Signs: Vital Signs Temp Pulse Resp BP Pulse Ox 96.8 F L 112 H 16 126/54 H 96 02/11/22 14:56 02/12/22 03:48 02/11/22 14:56 02/11/22 21:01 02/11/22 14:56 Oxygen Flow Rate (L/min) 94 Oxygen Delivery Method Room Air Weight: 61.416 kg Body Mass Index (BMI) 27.7 Intake & Output: Intake and Output for Last 24 Hours 02/10/22 02/11/22 02/12/22 23:59 23:59 23:59 Intake Total 1467.5 / 1467.5 2480.00 / 2480.00 1000 / 1000 Output Total 550 / 550 150 / 150 500 / 500 Balance 917.5 / 917.5 2330.00 / 2330.00 500 / 500 Lab / Micro Data Result Diagrams: 02/11/22 05:20 02/11/22 05:20 Labs: Laboratory Results - last 24 hr 02/11/22 08:11: Blood Type O POSITIVE, Antibody Screen NEGATIVE, Crossmatch See Detail Micro: Microbiology 02/07/22 00:20 Blood Culture (Wb) - Anticubital Left Blood Culture - Final No growth in 5 days. 02/07/22 00:20 Blood Culture (Wb) - Anticubital Left Blood Culture - Final No growth in 5 days. 02/09/22 13:10 Nasal Secretion SARS-CoV-2 Antigen (Rapid) - Final 02/07/22 00:10 Urine Catheter - Catheter Urine Culture - Final Klebsiella pneumoniae sp pneum Physical Exam Const alert, oriented x3 and no apparent distress General Appearance: cooperative and comfortable HEENT normocephalic Eyes PERRL General Eye: normal appearance of both eyes Neck General: normal visual inspection Lymph Lymphatic: no lymphadenopathy noted and no lymphedema noted Resp normal respiratory effort Cardio regular rate and regular rhythm Extremity no calf tenderness Skin no rashes or lesions noted and no jaundice General Skin Exam: dry skin Wound Narrative: Lower extremity ulceration completely circumferential about leg. There are some skin islands notable distally with continued epithelialization of the wound. Proximal wound site demonstrates hardening of the skin with some eschar crusting. Ulceration bases are granular and healthy appearing. There is no erythema, purulence, malodor, or proximal streaking noted. There is no bogginess or palpable fluctuance appreciated. Neuro oriented x3 Assessment & Plan Assessment/Plan (1) Venous insufficiency: (2) Delayed wound healing: (3) Ulcer of left lower extremity with fat layer exposed: (4) Closed fracture of left fibula and tibia: (5) Laceration of left leg: (6) Dry skin dermatitis: (7) Post-polio syndrome: (8) Chronic pain: QUALIFIERS: Chronic pain type: other chronic pain Qualified Code(s): G89.29 - Other chronic pain (9) Localized edema: (10) Osteoporosis: PLAN: Patient examined and evaluated, all findings cussed with patient in detail Patient has improving left lower extremity ulcerations upon dressing change today. No signs of infection. Patient still has improved from previous visits. Wounds dressed with adaptec, 4x4s, kerlix, well padded posterior splint. There was a new onset pressure ulceration to the left heel likely secondary to posterior splint and non-ambulatory status. Additional padding was applied to this area, patient should keep heel floating with pillow or prevalon offloading boot. We will continue to follow patient weekly for observation of her wounds. She will continue every other day dressing changes, frequency of dressing changes can be decreased to every 3rd day since drainage is minimal and she has significant pain w/ changes. She will follow up in wound care center on follow up. Note: Locomizer speech recognition patent leather sorter software was used to create portions of this document. Sound-alike and misspelled words, as well as other patent leather sorter errors may be contained in the documentation.
[2022-02-12 08:58] VITALS: BP 121/48; PULSE 127
[2022-02-12] MEDS: Pentoxifylline 400 MG Tablet PO (08:58)
[2022-02-12] MEDS: Clopidogrel Bisulfate 75 MG Tablet PO (08:58)
[2022-02-12] MEDS: Metoprolol Tartrate 50 MG Tablet PO (08:58)
--- NOTE | 2022-02-12 10:53 | NURSING ---
Contacted [facility] to clarify if they are wanting xrays completed here. Waiting for return call.
--- NOTE | 2022-02-12 11:28 | NURSING ---
Received return call from Alem Trotter, stated orders were already sent to xray.
[2022-02-12] MEDS: Acetaminophen 500 MG Tablet 1000 MG PO ×2 (15:30→23:09)
[2022-02-12 16:55] VITALS: BP 103/55; PULSE 113; RESP 18; TEMP 36.4; O2SAT 91
--- NOTE | 2022-02-12 18:33 | CASEMGMT ---
Addendum entered by Candice Li 02/13/22 14:30: [facility] and [facility] are unable to accept pt d/t too much care. Spoke with dtr to update her and request additional facilities. Dtr will speak with pt and her aunt then notify this worker. SW to continue to follow. Original Note: Social Work Received call from [facility] asking additional questions for pt. Provided answers. They are still reviewing clinicals. Have not received outcome yet from [facility]. SW to continue to follow. Candice Li, RES HABILITATION ASSISTANT HOME HEALTH CARE SOCIAL WORKER
[2022-02-12 19:53] VITALS: PULSE 105; RESP 16; O2SAT 93
[2022-02-12 21:57] VITALS: BP 111/54; PULSE 103
[2022-02-12] MEDS: Doxepin Hydrochloride 10 MG Capsule PO (21:58)
[2022-02-12 21:59] VITALS: PULSE 103
[2022-02-12] MEDS: Metoprolol Tartrate 100 MG Tablet PO (21:59)
[2022-02-12] MEDS: Atorvastatin Calcium 20 MG Tablet PO (21:59)
[2022-02-12] MEDS: 0.9% Saline Lock 10 ML Syringe IV (22:00)
[2022-02-13] MEDS: Vancomycin 125 MG/5 ML Susp PO.SYRINGE PO ×2 (04:33→17:07)
[2022-02-13] MEDS: Levothyroxine 137 MCG Tablet PO (04:34)
[2022-02-13] MEDS: 0.9% Normal Saline 1,000 ML 75 ML IV ×2 (04:35→12:16)
[2022-02-13 08:14] VITALS: BP 146/73; PULSE 105
[2022-02-13] MEDS: Metoprolol Tartrate 50 MG Tablet PO (08:14)
[2022-02-13] MEDS: Clopidogrel Bisulfate 75 MG Tablet PO (08:14)
[2022-02-13] MEDS: Pentoxifylline 400 MG Tablet PO (08:14)
--- NOTE | 2022-02-13 09:40 | RAD_ITS ---
STUDY: X-RAY - ABDOMEN/PELVIS REASON FOR EXAM: Female, 71 years old. Diarrhea. TECHNIQUE: Single AP view of the abdomen / pelvis. COMPARISON: None. FINDINGS: There is blunting of the left costophrenic angle. There is an unremarkable bowel gas pattern. The visualized liver, spleen and kidneys are grossly normal in size and morphology. Normal soft tissue structures. There are diffuse degenerative changes of the visualized lumbar spine. Dextroscoliosis. Deformity of the left hip joint with marked degree of joint space narrowing of both hip joints. RAD/Abdomen Single View IMPRESSION: Nonspecific bowel gas pattern. Dextroscoliosis of the lumbar spine. Deformity of the left hip with marked degree of osteoarthritis involving both hip joints. Electronically Signed: Juice Kee MD at 13:47 EDT ,
[2022-02-13] MEDS: 0.9% Saline Lock 10 ML Syringe IV (10:19)
[2022-02-13] MEDS: Acetaminophen 500 MG Tablet 1000 MG PO ×2 (10:19→22:01)
[2022-02-13 10:24] VITALS: PULSE 102
--- NOTE | 2022-02-13 13:54 | NURSING ---
Addendum entered by Stella Landry 02/13/22 17:16: DAUGHTER HERE ON UNIT. UPDATED HER ON CONSULT FOR DR MCINTYRE. Addendum entered by Stella Landry 02/13/22 14:00: DR SANCHEZ AWARE OF KUB. Original Note: CALLED DAUGHTERMARITO TO UPDATE HER R' TESTING POSITIVE FOR C-DIF. DAUGHTER UPSET STATING I KNEW THIS WAS GOING TO HAPPEN!. NOTIFIED HER OF NEW ORDERS FOR VANC AND ACIDOPHILUS. DAUGHTER STATING SHE WANTS DR MARTÍNEZ CONSULTED. SPOKE WITH DR SANCHEZ AND HE ORDERED THE CONSULT. John RUCKER CALLED DR MARTÍNEZ OFFICE. NO ANSWER. WILL NEED TO FOLLOW UP
--- NOTE | 2022-02-13 14:47 | NURSING ---
PLACED FOAM HEEL PROTECTORS TO HEELS AT THIS TIME. ALSO, NOTIFIED R' OF CDIF DX AND N.O. VANC AND ACIDOPHILUS. CONT' TO REFUSE TO TURN SIDE TO SIDE. WILL KEEP ENCOURAGING.
[2022-02-13 15:12] LABS: Hematocrit 30.5 % (37-47); Hemoglobin 10.1 g/dL (12.0-15.0)
[2022-02-13 22:00] VITALS: BP 131/57; PULSE 126
[2022-02-13] MEDS: Metoprolol Tartrate 100 MG Tablet PO (22:00)
[2022-02-13] MEDS: Doxepin Hydrochloride 10 MG Capsule PO (22:01)
[2022-02-13] MEDS: Atorvastatin Calcium 20 MG Tablet PO (22:04)
[2022-02-14] MEDS: Vancomycin 125 MG/5 ML Susp PO.SYRINGE PO ×4 (00:38→18:04)
[2022-02-14] MEDS: traMADol 50 MG Tablet PO (02:07)
[2022-02-14] MEDS: 0.9% Normal Saline 1,000 ML 75 ML IV ×2 (02:10→15:06)
[2022-02-14] MEDS: Levothyroxine 137 MCG Tablet PO (07:06)
[2022-02-14 09:28] VITALS: BP 117/62; PULSE 100
[2022-02-14] MEDS: Pentoxifylline 400 MG Tablet PO (09:28)
[2022-02-14] MEDS: Metoprolol Tartrate 50 MG Tablet PO (09:28)
[2022-02-14] MEDS: Clopidogrel Bisulfate 75 MG Tablet PO (09:28)
--- NOTE | 2022-02-14 12:22 | NURSING ---
PT WITH LIQUID EMESIS APPROX 50CC, PT STATES IT WAS THE PO ATB. WILL ATTEMPT TO ADMINISTER AFTER MEALS. PT FELT IT WAS WORTH A TRY
[2022-02-14 15:15] VITALS: BP 155/76; PULSE 66; RESP 16; TEMP 36.5; O2SAT 90
[2022-02-14] MEDS: Ondansetron ODT 4 MG Tablet PO (16:51)
[2022-02-14] MEDS: Acetaminophen 500 MG Tablet 1000 MG PO (17:35)
[2022-02-14 22:00] VITALS: PULSE 105; RESP 14
[2022-02-14] MEDS: Doxepin Hydrochloride 10 MG Capsule PO (22:42)
[2022-02-14] MEDS: Atorvastatin Calcium 20 MG Tablet PO (22:42)
[2022-02-14 22:51] VITALS: BP 105/45; PULSE 105
[2022-02-14] MEDS: Metoprolol Tartrate 100 MG Tablet PO (22:51)
[2022-02-15] MEDS: Vancomycin 125 MG/5 ML Susp PO.SYRINGE PO ×5 (00:34→23:35)
[2022-02-15] MEDS: 0.9% Normal Saline 1,000 ML 75 ML IV ×2 (04:27→17:23)
[2022-02-15] MEDS: Levothyroxine 137 MCG Tablet PO (06:47)
[2022-02-15] MEDS: Clopidogrel Bisulfate 75 MG Tablet PO (09:16)
[2022-02-15] MEDS: Pentoxifylline 400 MG Tablet PO (09:17)
[2022-02-15 09:18] VITALS: BP 140/57; PULSE 105
[2022-02-15] MEDS: Metoprolol Tartrate 50 MG Tablet PO (09:18)
[2022-02-15 16:00] VITALS: BP 147/61; PULSE 95; RESP 20; TEMP 37.2; O2SAT 90
[2022-02-15 16:05] VITALS: O2SAT 91
--- NOTE | 2022-02-15 17:32 | NURSING ---
Pt's pulse ox 91% on RA, denies SOB, states moist cough is chronic. Pt's reports she does wear PRN O2 at home. Placed on 2L, pulse ox 99% when rechecked. I.S. encouraged.
[2022-02-15] MEDS: Doxepin Hydrochloride 10 MG Capsule PO (21:01)
[2022-02-15 21:02] VITALS: BP 143/61; PULSE 107
[2022-02-15] MEDS: Atorvastatin Calcium 20 MG Tablet PO (21:02)
[2022-02-15] MEDS: Metoprolol Tartrate 100 MG Tablet PO (21:02)
[2022-02-15] MEDS: Menthol/Lanolin/Calamine/Znox 113 GM Tube 1 APPLIC TOPICAL (23:39)
[2022-02-16] MEDS: Menthol/Lanolin/Calamine/Znox 113 GM Tube 1 APPLIC TOPICAL ×2 (05:03→21:50)
[2022-02-16] MEDS: Vancomycin 125 MG/5 ML Susp PO.SYRINGE PO ×3 (05:03→17:11)
[2022-02-16] MEDS: Levothyroxine 137 MCG Tablet PO (05:03)
[2022-02-16 08:38] VITALS: BP 133/63; PULSE 92
[2022-02-16] MEDS: Pentoxifylline 400 MG Tablet PO (08:38)
[2022-02-16] MEDS: Clopidogrel Bisulfate 75 MG Tablet PO (08:38)
[2022-02-16] MEDS: Metoprolol Tartrate 50 MG Tablet PO (08:38)
[2022-02-16] MEDS: 0.9% Normal Saline 1,000 ML 75 ML IV (08:40)
--- NOTE | 2022-02-16 09:37 | NURSING ---
Cyber Forensic Specialist Note: MDS section F and interview completed.
--- NOTE | 2022-02-16 10:35 | MDS.RN ---
Information for the mds was obtained from review of the clinical record, interview of resident, staff, and direct observation of resident's care.
[2022-02-16 12:06] VITALS: PULSE 80; O2SAT 98
--- NOTE | 2022-02-16 13:57 | CON.PCM.ID_ITS ---
Assessment & Plan Assessment/Plan (1) Recurrent Clostridioides difficile diarrhea: PLAN: On po vanc, plan on long taper: 125mg 4x/day for 10 days then 2x/day for 7 days then 1x/day for 7 days then 1 q48h for 14 days. Wbc and diarrhea improving. Episode triggered by course of cipro which has a high association with cdiff. Not clear if she had a true uti given her lack of symptoms and only small/medium growth on ucx. Did have one time temp 100.4. Will follow, thank you HPI Consult Data Date of Consult: 02/16/22 HPI Narrative HPI Narrative: LUCIE DUPONT, is a 71 F who presented with fall, hurting her leg, requiring stitches and blood transfusion. Does not recall any urinary symptoms, had abnormal UA and (+) ucx here, given course of cipro and preventative po vanc. H/o recurrent cdiff, completed long po vanc taper back in May 2021. Developed diarrhea a few days ago, some cramping. No blood in stool but very frequent BMs. Now on po vanc, starting to feel a little better. Full ROS performed and neg except as noted above. [facility] Medical History Alcohol abuse Anxiety Back pain C. difficile colitis Cellulitis of left leg Chronic cough Colitis Colonization status COPD (chronic obstructive pulmonary disease) Delayed wound healing Depression Diarrhea Former tobacco use History of Clostridium difficile colitis HLD (hyperlipidemia) HTN (hypertension) Hypothyroidism Left leg pain Leg edema, left Loose, teeth Migraines MVP (mitral valve prolapse) Open wound Other specified peripheral vascular diseases Polio Pseudomonas aeruginosa colonization Sinus tachycardia Smoker Tachycardia Ulcer of left lower extremity with fat layer exposed Ulcer of left lower extremity, limited to breakdown of skin Venous insufficiency Wears glasses Home Medications levothyroxine 137 mcg PO DAILY 11/28/19 [History Last Taken 02/02/21 mcg] acidophilus-pectin, citrus 2 tab PO DAILY 03/26/20 [History Last Taken 02/03/21] metoprolol tartrate 50 mg PO BREAKFAST 03/26/20 [History Last Taken 02/03/21] metoprolol tartrate 100 mg PO QHS 03/26/20 [History Last Taken 02/02/21] acetaminophen 650 mg PO Q6H PRN PRN tab 07/24/20 [Rx Last Taken Unknown] clopidogrel [Plavix] 75 mg PO DAILY 03/16/21 [History Last Taken Unknown] doxepin 10 mg PO QHS 02/01/22 [History Last Taken Unknown] pentoxifylline 400 mg PO DAILY 02/01/22 [History Last Taken Unknown] [id number]-[id number]-mip [Davion (with collagen)] 1 packet PO BIDCM 02/03/22 [History Last Taken Unknown] atorvastatin 20 mg PO QHS 02/03/22 [History Last Taken Unknown] Allergy/AdvReac Type Severity Reaction Status Date / Time naproxen [From Naprosyn] Allergy Rash Verified 02/01/22 15:05 Penicillins [PCN] Allergy Rash Verified 02/01/22 15:05 amoxicillin AdvReac Rash Verified 02/01/22 15:05 cephalexin [From Keflex] AdvReac Rash Verified 02/01/22 15:05 clotrimazole [From Lotrimin] AdvReac Rash Verified 02/01/22 15:05 diphenhydramine AdvReac Rash Verified 02/01/22 15:05 [From Benadryl] griseofulvin AdvReac Rash Verified 02/01/22 15:05 ibuprofen [From Motrin] AdvReac Rash Verified 02/01/22 15:05 miconazole AdvReac Rash Verified 02/01/22 15:05 [From Monistat 1 Combo Pack] propranolol [From Inderal LA] AdvReac Rash Verified 02/01/22 15:05 rofecoxib [From Vioxx] AdvReac Rash Verified 02/01/22 15:05 Sulfa (Sulfonamide AdvReac Rash Verified 02/01/22 15:05 Antibiotics) Family History Daughter Asthma Sister COPD (chronic obstructive pulmonary disease) Father COPD (chronic obstructive pulmonary disease) Heart disease Mother COPD (chronic obstructive pulmonary disease) Surgical History History of angioplasty of peripheral vessel History of hip surgery Hx of tubal ligation Social History (Updated 02/03/22 @ 20:[address] Dustin Sandoval MD) household members: none Smoking Status: Former smoker second hand exposure: No alcohol intake: current alcohol intake frequency: holidays/special occasions only substance use type: does not use caffeine: Yes (some times) Type: tea what type of physical activity do you participate in: none frequency: does not exercise Physical Exam Const alert, oriented x3 and no apparent distress General Appearance: cooperative Exam Limitations: no limitations HEENT normocephalic and head/scalp atraumatic Eyes PERRL and EOMs intact bilaterally Neck supple and No nodes Resp normal air movement and clear to auscultation bilaterally Cardio regular rate and regular rhythm GI soft to palpation, non-tender and non-distended Extremity no clubbing, cyanosis or edema Skin no rashes or lesions noted Neuro CN's II-XII intact bilaterally Lab / Micro Data Result Diagrams: 02/13/22 15:05 02/11/22 05:20
--- NOTE | 2022-02-16 15:18 | NURSING ---
Patient c/o wet cough and wheezing noted in upper lung cramer. Pt is able to clear somewhat with coughing. Remains 98% on 2L O2. Pt states I do not want any more xrays. Note left for Dr. Sandoval re: symptoms. Sister at bedside.
[2022-02-16 15:22] VITALS: BP 145/65; PULSE 94; RESP 18; TEMP 36.3; O2SAT 98
--- NOTE | 2022-02-16 15:37 | WOUNDNOTE ---
wound photo: left lower leg
--- NOTE | 2022-02-16 15:38 | WOUNDNOTE ---
wound photo: left lower leg
--- NOTE | 2022-02-16 15:38 | WOUNDNOTE ---
wound photo: left heel
--- NOTE | 2022-02-16 15:57 | CASEMGMT ---
Social Work Contacted dtr to follow up on SNF choices. Dtr states they have not chosen other facilities yet. She reports having her aunt getting a call from [facility] inquiring about a discharge date operating under the assumption the pt was accepted. SW will contact [facility] to confirm denial. Dtr expressed frustration with pt getting cdiff. Offered to get her in contact with the Director to express her frustrations. Dtr agreed. This worker connected the call to Director's voicemail. SW to follow up with IDT on DC date with new cdiff diagnosis. Contacted [facility], confirmed pt is denied. SW to continue to follow. Candice Li, DANA TRUJILLOW
[2022-02-16] MEDS: Nystatin Powder 15gm Bottle 1 APPLIC TOPICAL (17:11)
[2022-02-16] MEDS: Acetaminophen 500 MG Tablet 1000 MG PO (17:22)
[2022-02-16] MEDS: FLUCONAZOLE 150 MG TABLET PO (17:39)
[2022-02-16 17:59] VITALS: PULSE 85; RESP 18
[2022-02-16 21:36] VITALS: BP 136/51; PULSE 102
[2022-02-16] MEDS: Atorvastatin Calcium 20 MG Tablet PO (21:36)
[2022-02-16] MEDS: Metoprolol Tartrate 100 MG Tablet PO (21:36)
[2022-02-16] MEDS: Doxepin Hydrochloride 10 MG Capsule PO (21:37)
[2022-02-16 22:00] VITALS: PULSE 100; RESP 16; O2SAT 97
[2022-02-17] MEDS: Acetaminophen 500 MG Tablet 1000 MG PO ×2 (00:16→23:33)
[2022-02-17] MEDS: Vancomycin 125 MG/5 ML Susp PO.SYRINGE PO ×5 (00:16→23:33)
[2022-02-17] MEDS: Nystatin Powder 15gm Bottle 1 APPLIC TOPICAL ×2 (06:17→17:45)
[2022-02-17] MEDS: Levothyroxine 137 MCG Tablet PO (06:17)
[2022-02-17] MEDS: Menthol/Lanolin/Calamine/Znox 113 GM Tube 1 APPLIC TOPICAL ×2 (06:17→22:08)
[2022-02-17 08:46] VITALS: BP 148/53; PULSE 85
[2022-02-17] MEDS: Metoprolol Tartrate 50 MG Tablet PO (08:46)
[2022-02-17] MEDS: Pentoxifylline 400 MG Tablet PO (08:46)
[2022-02-17] MEDS: Clopidogrel Bisulfate 75 MG Tablet PO (08:46)
[2022-02-17] MEDS: COVID-19 VACC, MRNA(PFIZER)/PF 30 MCG/0.3 ML SYRINGE IM (12:00)
[2022-02-17 14:07] VITALS: BP 142/68; PULSE 86; RESP 20; TEMP 36.7; O2SAT 98
--- NOTE | 2022-02-17 14:14 | PCA ---
We needed to get her weight for weekly weights. Was not sure how to get it with her pain, and we checked with therapy. Asked about the [place] but she cannot take the pain of moving around. Not sure if the bed scale weight is completely correct, but it is what we have to use.
--- NOTE | 2022-02-17 16:36 | CASEMGMT ---
Social Work Received call from dtr. Dtr has choices for SNF referrals: [facility]. SW to make referrals and keep dtr updated. BIMS and PHQ-9 completed for MDS assessment. Candice Li, MAT MAKING MACHINE TENDER EXECUTIVE RECEPTIONIST
[2022-02-17 22:07] VITALS: BP 159/71; PULSE 116
[2022-02-17] MEDS: Metoprolol Tartrate 100 MG Tablet PO (22:07)
[2022-02-17] MEDS: Atorvastatin Calcium 20 MG Tablet PO (22:07)
[2022-02-17] MEDS: Doxepin Hydrochloride 10 MG Capsule PO (22:07)
[2022-02-18] MEDS: Levothyroxine 137 MCG Tablet PO (05:24)
[2022-02-18] MEDS: Vancomycin 125 MG/5 ML Susp PO.SYRINGE PO ×4 (05:24→23:48)
[2022-02-18] MEDS: Nystatin Powder 15gm Bottle 1 APPLIC TOPICAL (05:26)
[2022-02-18] MEDS: Menthol/Lanolin/Calamine/Znox 113 GM Tube 1 APPLIC TOPICAL ×2 (05:27→21:19)
[2022-02-18 06:06] LABS: Absolute Lymphocyte Count 1.64 X10^3/uL (0.83-4.51); Absolute Neutrophil Count 6.7 X10^3/uL (2.0-7.7); Basophil# 0.06 X10^3/uL; Basophil% 0.6 % (0-1); Eosinophil# 0.47 X10^3/uL; Eosinophils% 4.9 % (0-5); Hematocrit 32.2 % (37-47); Hemoglobin 10.2 g/dL (12.0-15.0); Lymphocyte # 1.64 X10^3/ul (0.83-4.51); Lymphocyte % 17.1 % (19-41); Mean Corp Hgb Conc 31.7 g/dL (32-36); Mean Corpuscular Hgb 28.4 pg (27.0-32.0); Mean Corpuscular Volume 89.7 fL (81-99); Mean Platelet Vol. 8.6 fl (6.2-12.0); Monocyte# 0.62 X10^3/uL; Monocyte% 6.5 % (0-10); NRBC Flagged by Analyzer 0 % (0-5); Neutrophil # 6.71 X10^3/uL (2.7-7.7); Neutrophil % 70.2 % (47-70); Platelet Count 365 K/mm3 (150-450); RBC Distribution Width CV 15.1 % (11.6-14.6); RBC Distribution Width SD 49.7 fl (35.1-43.9); Red Blood Count 3.59 M/mm3 (4.2-5.4); White Blood Count 9.6 K/mm3 (4.4-11.0)
[2022-02-18 06:41] LABS: Anion Gap 3 (5-15); BUN 34 mg/dL (7-18); BUN/Creat Ratio 61.8 RATIO (10-20); Calcium,Total 7.9 mg/dL (8.5-10.1); Chloride 108 mmol/L (98-107); Creatinine, Serum 0.55 mg/dL (0.55-1.02); EST Glomerular Filtration Rate 115 mL/min (>60); Est Glom Filt Rate - Afr Amer 139 mL/min (>60); Estimated Creatinine Clearance 48.58 ml/min; Glucose 87 mg/dL (74-106); Potassium 3.1 mmol/L (3.5-5.1); Sodium Level 142 mmol/L (136-145)
[2022-02-18] MEDS: Pentoxifylline 400 MG Tablet PO (07:58)
[2022-02-18] MEDS: Clopidogrel Bisulfate 75 MG Tablet PO (07:58)
[2022-02-18 08:13] VITALS: BP 147/66; PULSE 91
[2022-02-18] MEDS: Metoprolol Tartrate 50 MG Tablet PO (08:13)
[2022-02-18] MEDS: Potassium Chloride Oral Tablet 20 MEQ 40 MEQ PO (08:13)
[2022-02-18 21:09] VITALS: BP 152/75; PULSE 116
[2022-02-18] MEDS: Atorvastatin Calcium 20 MG Tablet PO (21:09)
[2022-02-18] MEDS: Doxepin Hydrochloride 10 MG Capsule PO (21:09)
[2022-02-18] MEDS: Metoprolol Tartrate 100 MG Tablet PO (21:09)
[2022-02-19 06:02] LABS: Anion Gap 0 (5-15); BUN 33 mg/dL (7-18); BUN/Creat Ratio 57.7 RATIO (10-20); Calcium,Total 8.5 mg/dL (8.5-10.1); Chloride 109 mmol/L (98-107); Creatinine, Serum 0.57 mg/dL (0.55-1.02); EST Glomerular Filtration Rate 110 mL/min (>60); Est Glom Filt Rate - Afr Amer 133 mL/min (>60); Estimated Creatinine Clearance 48.58 ml/min; Glucose 95 mg/dL (74-106); Potassium 3.6 mmol/L (3.5-5.1); Sodium Level 142 mmol/L (136-145)
[2022-02-19 06:23] VITALS: O2SAT 96
[2022-02-19] MEDS: Levothyroxine 137 MCG Tablet PO (06:44)
[2022-02-19] MEDS: Vancomycin 125 MG/5 ML Susp PO.SYRINGE PO ×4 (06:44→23:50)
[2022-02-19] MEDS: Acetaminophen 500 MG Tablet 1000 MG PO ×2 (06:44→21:39)
[2022-02-19] MEDS: Menthol/Lanolin/Calamine/Znox 113 GM Tube 1 APPLIC TOPICAL ×2 (06:50→23:51)
[2022-02-19] MEDS: Nystatin Powder 15gm Bottle 1 APPLIC TOPICAL ×2 (06:50→17:47)
--- NOTE | 2022-02-19 08:40 | CASEMGMT ---
Social Work Spoke with dtr to update on SNF outcomes. [facility] is reviewing, [facility] does not have any bed availability, [facility] can accept. Dtr would like admissions from [facility] to reach out to her to schedule a tour. Spoke with Aylin, research project coordinator for both facilities and she will reach out to dtr. Dtr to keep SW updated. Candice Li, MANUFACTURING ENGINEERING PROFESSOR HOME WEATHERIZING WORKER
[2022-02-19] MEDS: Potassium Chloride Oral Tablet 20 MEQ PO (09:03)
[2022-02-19] MEDS: Clopidogrel Bisulfate 75 MG Tablet PO (09:04)
[2022-02-19] MEDS: Pentoxifylline 400 MG Tablet PO (09:05)
[2022-02-19 09:08] VITALS: PULSE 116
[2022-02-19] MEDS: Metoprolol Tartrate 50 MG Tablet PO (09:08)
[2022-02-19 15:07] VITALS: BP 121/56; PULSE 79; RESP 18; TEMP 36.5; O2SAT 99
[2022-02-19 21:39] VITALS: BP 153/65; PULSE 109
[2022-02-19] MEDS: Metoprolol Tartrate 100 MG Tablet PO (21:39)
[2022-02-19] MEDS: Atorvastatin Calcium 20 MG Tablet PO (21:39)
[2022-02-19] MEDS: Doxepin Hydrochloride 10 MG Capsule PO (21:39)
[2022-02-20] MEDS: Vancomycin 125 MG/5 ML Susp PO.SYRINGE PO ×4 (05:27→23:15)
[2022-02-20] MEDS: Nystatin Powder 15gm Bottle 1 APPLIC TOPICAL ×2 (05:28→18:18)
[2022-02-20] MEDS: Levothyroxine 137 MCG Tablet PO (05:28)
[2022-02-20] MEDS: Menthol/Lanolin/Calamine/Znox 113 GM Tube 1 APPLIC TOPICAL ×2 (05:28→22:02)
[2022-02-20 07:02] VITALS: O2SAT 96
[2022-02-20 08:32] VITALS: BP 140/57; PULSE 86
[2022-02-20] MEDS: Clopidogrel Bisulfate 75 MG Tablet PO (08:32)
[2022-02-20] MEDS: Metoprolol Tartrate 50 MG Tablet PO (08:32)
[2022-02-20] MEDS: Pentoxifylline 400 MG Tablet PO (08:32)
[2022-02-20] MEDS: Potassium Chloride Oral Tablet 20 MEQ PO (08:32)
--- NOTE | 2022-02-20 12:51 | PCM.PN.ID ---
Physical Exam Narrative Feeling better, stool no longer liquid, no fever Const alert and no apparent distress General Appearance: cooperative Resp normal air movement and clear to auscultation bilaterally Cardio regular rate and regular rhythm GI soft to palpation, non-tender and non-distended Skin no rashes or lesions noted ID ID: Route of nutrition/ use of supplements: [] Nutritional Intake: [] IV Site: [] [place] Catheter: [] Assessment & Plan Assessment/Plan (1) Recurrent Clostridioides difficile diarrhea: PLAN: On po vanc, plan on long taper: 125mg 4x/day for 10 days (day 7 currently) then 2x/day for 7 days then 1x/day for 7 days then 1 q48h for 14 days. Wbc and diarrhea much better. Episode triggered by course of cipro which has a high association with cdiff. Not clear if she had a true uti given her lack of symptoms and only small/medium growth on ucx. Did have one time temp 100.4. Will follow. ID followup in 3-4 weeks.
[2022-02-20] MEDS: Ondansetron ODT 4 MG Tablet PO (14:00)
[2022-02-20 16:00] VITALS: BP 148/72; PULSE 61; RESP 15; TEMP 36.4; O2SAT 96
[2022-02-20] MEDS: Doxepin Hydrochloride 10 MG Capsule PO (21:52)
[2022-02-20] MEDS: Acetaminophen 500 MG Tablet 1000 MG PO (21:52)
[2022-02-20] MEDS: Atorvastatin Calcium 20 MG Tablet PO (21:52)
[2022-02-20 21:53] VITALS: BP 124/50; PULSE 104
[2022-02-20] MEDS: Metoprolol Tartrate 100 MG Tablet PO (21:53)
[2022-02-21] MEDS: Vancomycin 125 MG/5 ML Susp PO.SYRINGE PO ×3 (06:21→17:52)
[2022-02-21] MEDS: Levothyroxine 137 MCG Tablet PO (06:21)
[2022-02-21] MEDS: Menthol/Lanolin/Calamine/Znox 113 GM Tube 1 APPLIC TOPICAL (06:29)
[2022-02-21] MEDS: Nystatin Powder 15gm Bottle 1 APPLIC TOPICAL ×2 (06:29→17:55)
--- NOTE | 2022-02-21 06:31 | NURSING ---
Pt has remained leaning on left side throughout the night, attempted several times to reposition her, pt refused. Would only let me rearrange her pillows, stated she is comfortable and it hurts to move, refused offer of pain meds. Will continue to monitor.
[2022-02-21] MEDS: Clopidogrel Bisulfate 75 MG Tablet PO (08:30)
[2022-02-21] MEDS: Potassium Chloride Oral Tablet 20 MEQ PO (08:30)
[2022-02-21] MEDS: Pentoxifylline 400 MG Tablet PO (08:30)
[2022-02-21 08:31] VITALS: BP 146/61; PULSE 84
[2022-02-21] MEDS: Metoprolol Tartrate 50 MG Tablet PO (08:31)
--- NOTE | 2022-02-21 10:38 | PN_ITS ---
Subjective Subjective Patient was seen for follow up on left leg ulcerations. She is resting in bed, no new complaints. No complaints of fever, chills, nausea or vomiting. Objective Data Objective Data Vital Signs: Vital Signs Temp Pulse Resp BP Pulse Ox 97.5 F L 84 15 146/61 H 96 02/20/22 16:00 02/21/22 08:31 02/20/22 16:00 02/21/22 08:31 02/20/22 16:00 Oxygen Flow Rate (L/min) 2 Oxygen Delivery Method Nasal Cannula Weight: 61.416 kg Body Mass Index (BMI) 27.7 Intake & Output: Intake and Output for Last 24 Hours 02/19/22 02/20/22 02/21/22 23:59 23:59 23:59 Intake Total 515 / 515 480 / 480 360 / 360 Output Total 200 / 200 300 / 300 600 / 600 Balance 315 / 315 180 / 180 -240 / -240 Lab / Micro Data Result Diagrams: 02/18/22 05:50 02/19/22 05:29 Micro: Microbiology 02/13/22 09:40 Stool C. difficile GDH Antigen & Toxins - Final 02/13/22 09:40 Stool C. difficile DNA Amplification - Final 02/07/22 00:20 Blood Culture (Wb) - Anticubital Left Blood Culture - Final No growth in 5 days. 02/07/22 00:20 Blood Culture (Wb) - Anticubital Left Blood Culture - Final No growth in 5 days. 02/09/22 13:10 Nasal Secretion SARS-CoV-2 Antigen (Rapid) - Final 02/07/22 00:10 Urine Catheter - Catheter Urine Culture - Final Klebsiella pneumoniae sp pneum Physical Exam Const alert, oriented x3 and no apparent distress General Appearance: cooperative and comfortable Skin no rashes or lesions noted and no jaundice General Skin Exam: dry skin Wound Narrative: Left foot/ankle/leg: Dry stable superficial scab to posterior heel with no evidence of infection, Lower extremity ulceration completely circumferential about leg but healing well - there are increased skin islands with continued epithelialization of the wound. The wounds are down to super ficial subcutaneous tissue - Ulceration bases are granular and healthy appearing. There is no erythema, purulence, malodor, or proximal streaking noted. There is no bogginess or palpable fluctuance appreciated. Neuro oriented x3 Assessment & Plan Assessment/Plan (1) Venous insufficiency: (2) Delayed wound healing: (3) Ulcer of left lower extremity with fat layer exposed: (4) Closed fracture of left fibula and tibia: (5) Laceration of left leg: (6) Dry skin dermatitis: (7) Post-polio syndrome: (8) Chronic pain: QUALIFIERS: Chronic pain type: other chronic pain Qualified Code(s): G89.29 - Other chronic pain (9) Localized edema: (10) Osteoporosis: PLAN: Left leg ulcerations re-evaluated. Patient has improving left lower extremity ulcerations upon dressing change today. No signs of infection. Continue with local wound care: Wounds dressed with adaptic, 4x4s, Kerlix, well padded posterior splint with heel offloaded. Change dressing every 3rd day. She will follow up in wound care center on follow up.
[2022-02-21 15:21] VITALS: BP 144/64; PULSE 95; RESP 14; TEMP 37; O2SAT 99
[2022-02-21] MEDS: Atorvastatin Calcium 20 MG Tablet PO (22:35)
[2022-02-21] MEDS: Doxepin Hydrochloride 10 MG Capsule PO (22:35)
[2022-02-21] MEDS: Acetaminophen 500 MG Tablet 1000 MG PO (22:38)
--- NOTE | 2022-02-21 22:40 | NURSING ---
Moist cough noted during assessment. Pt reports cough is chronic and does not verbalize any concerns. In no acute distress. O2 at 2 lpm via nc. Strongly encouraged use of IS. Pt informs this nurse she uses IS all the time throughout the day and up to 10 deep breaths per hour. Will continue to monitor.
[2022-02-21 22:42] VITALS: BP 139/56; PULSE 115
[2022-02-21] MEDS: Metoprolol Tartrate 100 MG Tablet PO (22:42)
[2022-02-22] MEDS: Vancomycin 125 MG/5 ML Susp PO.SYRINGE PO ×4 (00:33→17:56)
[2022-02-22] MEDS: Menthol/Lanolin/Calamine/Znox 113 GM Tube 1 APPLIC TOPICAL ×3 (00:34→22:25)
[2022-02-22] MEDS: Levothyroxine 137 MCG Tablet PO (05:46)
[2022-02-22] MEDS: Nystatin Powder 15gm Bottle 1 APPLIC TOPICAL ×2 (05:47→17:56)
[2022-02-22] MEDS: Potassium Chloride Oral Tablet 20 MEQ PO (08:59)
[2022-02-22] MEDS: Clopidogrel Bisulfate 75 MG Tablet PO (08:59)
[2022-02-22] MEDS: Pentoxifylline 400 MG Tablet PO (08:59)
[2022-02-22 09:00] VITALS: BP 149/65; PULSE 90
[2022-02-22] MEDS: Metoprolol Tartrate 50 MG Tablet PO (09:00)
[2022-02-22] MEDS: Acetaminophen 500 MG Tablet 1000 MG PO (13:50)
[2022-02-22 16:00] VITALS: PULSE 62; RESP 16; TEMP 36.7; O2SAT 98
[2022-02-22] MEDS: Doxepin Hydrochloride 10 MG Capsule PO (22:22)
[2022-02-22] MEDS: Atorvastatin Calcium 20 MG Tablet PO (22:22)
[2022-02-22 22:23] VITALS: BP 152/69; PULSE 119
[2022-02-22] MEDS: Metoprolol Tartrate 100 MG Tablet PO (22:23)
[2022-02-23] MEDS: Vancomycin 125 MG/5 ML Susp PO.SYRINGE PO ×4 (00:07→19:33)
[2022-02-23] MEDS: Acetaminophen 500 MG Tablet 1000 MG PO (00:07)
--- NOTE | 2022-02-23 00:13 | NURSING ---
Pillows repositioned behind head and a pillow placed between left leg and side rail per pt request. Medicated w/ Tylenol for c/o pain.
[2022-02-23] MEDS: Levothyroxine 137 MCG Tablet PO (05:09)
[2022-02-23] MEDS: Nystatin Powder 15gm Bottle 1 APPLIC TOPICAL ×2 (05:12→19:35)
[2022-02-23] MEDS: Menthol/Lanolin/Calamine/Znox 113 GM Tube 1 APPLIC TOPICAL ×2 (05:12→19:35)
--- NOTE | 2022-02-23 05:16 | NURSING ---
Continent of moderate amount of soft, brown stool. Pt did not tolerate turning in bed for bedpan well. In moderate distress. One hour too early for Tylenol. Refuses any other pain medication. Repositioned in bed for comfort. Will continue to monitor.
[2022-02-23 06:57] VITALS: O2SAT 97
[2022-02-23] MEDS: Pentoxifylline 400 MG Tablet PO (08:42)
[2022-02-23] MEDS: Potassium Chloride Oral Tablet 20 MEQ PO (08:42)
[2022-02-23] MEDS: Clopidogrel Bisulfate 75 MG Tablet PO (08:43)
[2022-02-23 08:46] VITALS: BP 155/67; PULSE 110
[2022-02-23] MEDS: Metoprolol Tartrate 50 MG Tablet PO (08:46)
--- NOTE | 2022-02-23 09:18 | MDS.RN ---
Information for the mds was obtained from review of the clinical record, interview of resident, staff, and direct observation of resident's care.
[2022-02-23 14:07] VITALS: BP 120/59; PULSE 97; RESP 14; TEMP 37.1; O2SAT 92
--- NOTE | 2022-02-23 16:41 | CASEMGMT ---
Social Work Per OT, pt elected to DC OT and continue with HEP in room. Director confirmed pt will remain skilled for nursing services. Spoke with pt and she confirmed. Pt agreeable to OT DC 02/26, LCD 02/25. NOMNC given. SW to continue to follow. Candice Li, [employer] N[employer]ITION[employer]
[2022-02-23] MEDS: Ondansetron ODT 4 MG Tablet PO (18:34)
--- NOTE | 2022-02-23 18:34 | NURSING ---
held 1800 meds d/t n/v. edwigean given. pt states it's from the vanc, it hits me 6 hrs later and I just ate supper. will attempt meds later
[2022-02-23 20:40] VITALS: PULSE 115; O2SAT 93
[2022-02-23] MEDS: Doxepin Hydrochloride 10 MG Capsule PO (22:34)
[2022-02-23] MEDS: Atorvastatin Calcium 20 MG Tablet PO (22:34)
[2022-02-23 22:37] VITALS: BP 135/57; PULSE 118
[2022-02-23] MEDS: Metoprolol Tartrate 100 MG Tablet PO (22:37)
[2022-02-23] MEDS: traMADol 50 MG Tablet PO (22:55)
--- NOTE | 2022-02-24 04:14 | NURSING ---
turn and reposition offered and declined x3, despite encouragement/education on importance of maintaining and promoting skin integrity, responds no, not now. Denies requests, no distress observed or reported. Call light in reach.
[2022-02-24] MEDS: Levothyroxine 137 MCG Tablet PO (05:22)
[2022-02-24] MEDS: Vancomycin 125 MG/5 ML Susp PO.SYRINGE PO ×2 (05:22→18:16)
[2022-02-24] MEDS: Menthol/Lanolin/Calamine/Znox 113 GM Tube 1 APPLIC TOPICAL (05:23)
[2022-02-24] MEDS: Nystatin Powder 15gm Bottle 1 APPLIC TOPICAL ×2 (05:23→18:17)
--- NOTE | 2022-02-24 06:33 | PN_ITS ---
Subjective Subjective Patient was seen for follow up on left leg ulcerations. She is resting in bed and has no new complaints. She denies fever, chills, nausea or vomiting. She plans for upcoming transfer to [facility]. She has her splint intact. Objective Data Objective Data Vital Signs: Vital Signs Temp Pulse Resp BP Pulse Ox 98.8 F 118 H 14 135/57 H 93 02/23/22 14:07 02/23/22 22:37 02/23/22 14:07 02/23/22 22:37 02/23/22 20:40 Oxygen Flow Rate (L/min) 2 Oxygen Delivery Method Nasal Cannula Weight: 61.416 kg Body Mass Index (BMI) 27.7 Intake & Output: Intake and Output for Last 24 Hours 02/22/22 02/23/22 02/24/22 23:59 23:59 23:59 Intake Total 420 / 420 480 / 480 Output Total 150 / 150 200 / 200 450 / 450 Balance 270 / 270 280 / 280 -450 / -450 Lab / Micro Data Result Diagrams: 02/18/22 05:50 02/19/22 05:29 Micro: Microbiology 02/13/22 09:40 Stool C. difficile GDH Antigen & Toxins - Final 02/13/22 09:40 Stool C. difficile DNA Amplification - Final 02/07/22 00:20 Blood Culture (Wb) - Anticubital Left Blood Culture - Final No growth in 5 days. 02/07/22 00:20 Blood Culture (Wb) - Anticubital Left Blood Culture - Final No growth in 5 days. 02/09/22 13:10 Nasal Secretion SARS-CoV-2 Antigen (Rapid) - Final 02/07/22 00:10 Urine Catheter - Catheter Urine Culture - Final Klebsiella pneumoniae sp pneum Physical Exam Const alert, oriented x3 and no apparent distress General Appearance: cooperative and comfortable Skin no rashes or lesions noted and no jaundice General Skin Exam: dry skin Wound Narrative: Left foot/ankle/leg: Dry stable superficial scab to posterior heel with no evidence of infection, Lower extremity ulceration completely circumferential about leg but healing well - there are increased skin islands with continued epithelialization of the wound. The wounds are down to superficial subcutaneous tissue - Ulceration bases are granular and healthy appearing. There is no erythema, purulence, malodor, or proximal streaking noted. There is no bogginess or palpable fluctuance appreciated. Neuro oriented x3 Assessment & Plan Assessment/Plan (1) Venous insufficiency: (2) Delayed wound healing: (3) Ulcer of left lower extremity with fat layer exposed: (4) Closed fracture of left fibula and tibia: (5) Laceration of left leg: (6) Dry skin dermatitis: (7) Post-polio syndrome: (8) Chronic pain: QUALIFIERS: Chronic pain type: other chronic pain Qualified Code(s): G89.29 - Other chronic pain (9) Localized edema: (10) Osteoporosis: PLAN: Left leg ulcerations re-evaluated. Patient has improving left lower extremity ulcerations upon dressing change today. No signs of infection. Continue with local wound care: Clean with soap and water. Wounds dressed with adaptic, 4x4s, Kerlix, well padded posterior splint with heel offloaded. Change dressing every 3rd day. To continue offloading and fracture protection with splint use. To hang heels over a pillow to prevent further decubitus ulcer formation. She is doing well with this so far. She will follow up in wound care center on follow up with Dr. Cooper. The podiatry team will continue to follow her biweekly while in the house. Please do not hesitate to call if you have any questions. Abby Cooper DPM, [facility] [phone]
[2022-02-24 08:35] VITALS: BP 142/95; PULSE 95
[2022-02-24] MEDS: Pentoxifylline 400 MG Tablet PO (08:35)
[2022-02-24] MEDS: Metoprolol Tartrate 50 MG Tablet PO (08:35)
[2022-02-24] MEDS: Clopidogrel Bisulfate 75 MG Tablet PO (08:35)
[2022-02-24] MEDS: Potassium Chloride Oral Tablet 20 MEQ PO (08:35)
[2022-02-24 12:04] VITALS: PULSE 91; RESP 18; O2SAT 93
--- NOTE | 2022-02-24 12:28 | NURSING ---
pt repositioned to center of bed more, pt favors LT side and does not like moved but staff has much difficulty getting pt to less move her. no skin issues noted on buttocks or LT hip, skin intact. dressing to LT foot changed by Dr Cooper this AM. both legs/heels up off bed on pillows. call light in reach.
--- NOTE | 2022-02-24 12:30 | NURSING ---
remains in special contact isolation d/t cdiff. all care and therapy done in room
[2022-02-24] MEDS: Ipratropium/Albuterol Sulfate 3 ML AMPUL.NEB INHALATION (12:54)
[2022-02-24 12:56] VITALS: PULSE 84; RESP 18
[2022-02-24 14:07] VITALS: BP 141/60; PULSE 96; RESP 18; TEMP 36.5; O2SAT 95
--- NOTE | 2022-02-24 14:30 | PCA ---
Unable to obtain a weight on Angela this week
[2022-02-24] MEDS: Acetaminophen 500 MG Tablet 1000 MG PO (20:57)
[2022-02-24 20:58] VITALS: BP 131/63; PULSE 105
[2022-02-24] MEDS: Atorvastatin Calcium 20 MG Tablet PO (20:58)
[2022-02-24] MEDS: Metoprolol Tartrate 100 MG Tablet PO (20:58)
[2022-02-24] MEDS: Doxepin Hydrochloride 10 MG Capsule PO (20:58)
[2022-02-25] MEDS: Acetaminophen 500 MG Tablet 1000 MG PO ×3 (03:04→21:02)
[2022-02-25] MEDS: Vancomycin 125 MG/5 ML Susp PO.SYRINGE PO ×2 (05:16→17:40)
[2022-02-25] MEDS: Levothyroxine 137 MCG Tablet PO (05:16)
[2022-02-25] MEDS: Nystatin Powder 15gm Bottle 1 APPLIC TOPICAL ×2 (05:19→17:40)
[2022-02-25] MEDS: Menthol/Lanolin/Calamine/Znox 113 GM Tube 1 APPLIC TOPICAL ×2 (05:25→21:04)
--- NOTE | 2022-02-25 05:26 | NURSING ---
Patient continues to refuse to be turned off left side or be repositioned, wants to continue to lay on left side.
[2022-02-25 05:31] LABS: Absolute Lymphocyte Count 1.86 X10^3/uL (0.83-4.51); Absolute Neutrophil Count 4.6 X10^3/uL (2.0-7.7); Basophil# 0.06 X10^3/uL; Basophil% 0.8 % (0-1); Eosinophil# 0.34 X10^3/uL; Eosinophils% 4.4 % (0-5); Hemoglobin 9.4 g/dL (12.0-15.0); Lymphocyte # 1.86 X10^3/ul (0.83-4.51); Lymphocyte % 24.2 % (19-41); Mean Corp Hgb Conc 30.3 g/dL (32-36); Mean Corpuscular Hgb 28.4 pg (27.0-32.0); Mean Corpuscular Volume 93.7 fL (81-99); Mean Platelet Vol. 8.8 fl (6.2-12.0); Monocyte# 0.82 X10^3/uL; Monocyte% 10.6 % (0-10); NRBC Flagged by Analyzer 0 % (0-5); Neutrophil # 4.58 X10^3/uL (2.7-7.7); Neutrophil % 59.5 % (47-70); Platelet Count 355 K/mm3 (150-450); RBC Distribution Width CV 15.8 % (11.6-14.6); RBC Distribution Width SD 54.1 fl (35.1-43.9); Red Blood Count 3.31 M/mm3 (4.2-5.4); White Blood Count 7.7 K/mm3 (4.4-11.0)
[2022-02-25 05:53] LABS: Anion Gap 1 (5-15); BUN 40 mg/dL (7-18); BUN/Creat Ratio 54.9 RATIO (10-20); Calcium,Total 8.1 mg/dL (8.5-10.1); Chloride 105 mmol/L (98-107); Creatinine, Serum 0.73 mg/dL (0.55-1.02); EST Glomerular Filtration Rate 83 mL/min (>60); Est Glom Filt Rate - Afr Amer 101 mL/min (>60); Estimated Creatinine Clearance 48.58 ml/min; Glucose 79 mg/dL (74-106); Potassium 4.2 mmol/L (3.5-5.1); Sodium Level 141 mmol/L (136-145)
[2022-02-25 07:36] VITALS: O2SAT 93
[2022-02-25 09:09] VITALS: BP 148/72; PULSE 103
[2022-02-25] MEDS: Potassium Chloride Oral Tablet 20 MEQ PO (09:09)
[2022-02-25] MEDS: Metoprolol Tartrate 50 MG Tablet PO (09:09)
[2022-02-25] MEDS: Clopidogrel Bisulfate 75 MG Tablet PO (09:09)
[2022-02-25] MEDS: Pentoxifylline 400 MG Tablet PO (09:09)
[2022-02-25 15:44] VITALS: BP 140/54; PULSE 87; RESP 16; TEMP 37; O2SAT 95
[2022-02-25] MEDS: Ondansetron ODT 4 MG Tablet PO (17:47)
[2022-02-25 20:30] VITALS: PULSE 103; RESP 16; O2SAT 96
[2022-02-25 21:03] VITALS: BP 138/66; PULSE 103
[2022-02-25] MEDS: Atorvastatin Calcium 20 MG Tablet PO (21:03)
[2022-02-25] MEDS: Metoprolol Tartrate 100 MG Tablet PO (21:03)
[2022-02-25] MEDS: Doxepin Hydrochloride 10 MG Capsule PO (21:03)
--- NOTE | 2022-02-25 23:58 | NURSING ---
Declines T&R despite encouragement and education on importance of maintaining skin integrity. Pt. states prefers to lay on left side. Presents as A&Ox3, able to voice needs. Pt. reports pain with movement, states I only take Tylenol for it, the other pain medicines make me sleep too much. Educated on alternative pharmacologic pain options upon patient request, verbalized understanding. No distress observed or reported. Call light in reach.
[2022-02-26] MEDS: Acetaminophen 500 MG Tablet 1000 MG PO ×3 (04:22→22:25)
[2022-02-26] MEDS: Levothyroxine 137 MCG Tablet PO (05:09)
[2022-02-26] MEDS: Menthol/Lanolin/Calamine/Znox 113 GM Tube 1 APPLIC TOPICAL ×2 (05:10→21:10)
[2022-02-26] MEDS: Nystatin Powder 15gm Bottle 1 APPLIC TOPICAL ×2 (05:10→17:32)
[2022-02-26] MEDS: Vancomycin 125 MG/5 ML Susp PO.SYRINGE PO ×2 (05:11→17:32)
[2022-02-26] MEDS: Clopidogrel Bisulfate 75 MG Tablet PO (08:19)
[2022-02-26] MEDS: Pentoxifylline 400 MG Tablet PO (08:19)
[2022-02-26] MEDS: Potassium Chloride Oral Tablet 20 MEQ PO (08:19)
[2022-02-26 08:25] VITALS: BP 149/66; PULSE 97
[2022-02-26] MEDS: Metoprolol Tartrate 50 MG Tablet PO (08:25)
--- NOTE | 2022-02-26 09:55 | NURSING ---
Extensive education provided to pt on the importance of turning and repositioning to decrease risk of skin breakdown. pt very reluctant, but agreed to lay on back for a brief time. Refuses to lay on right side. pt refuses any medication other than Tylenol, stating anything else makes her sick. pt positioned with multiple pillows around her to easy any discomfort. Will continue to monitor.
[2022-02-26 09:59] VITALS: PULSE 89; RESP 18; O2SAT 90
[2022-02-26 14:39] VITALS: BP 154/70; PULSE 97; RESP 18; TEMP 36; O2SAT 97
[2022-02-26] MEDS: Ondansetron ODT 4 MG Tablet PO (17:41)
[2022-02-26 21:08] VITALS: BP 156/77; PULSE 118
[2022-02-26] MEDS: Doxepin Hydrochloride 10 MG Capsule PO (21:08)
[2022-02-26] MEDS: Metoprolol Tartrate 100 MG Tablet PO (21:08)
[2022-02-26] MEDS: Atorvastatin Calcium 20 MG Tablet PO (21:09)
--- NOTE | 2022-02-26 22:55 | NURSING ---
Offered to reposition patient, reminded her of importance of repositioning to prevent skin breakdown. She refused. Right heel red w/ no breakdown, asked if she would wear pressure relieving boots, she refused. Repositioned leg and floated heel using folded towels.
--- NOTE | 2022-02-27 02:38 | PCA ---
pt refused to get washed up and to change clothes
[2022-02-27] MEDS: Levothyroxine 137 MCG Tablet PO (05:15)
[2022-02-27] MEDS: Vancomycin 125 MG/5 ML Susp PO.SYRINGE PO ×2 (05:16→17:38)
[2022-02-27] MEDS: Menthol/Lanolin/Calamine/Znox 113 GM Tube 1 APPLIC TOPICAL ×2 (05:16→20:42)
[2022-02-27] MEDS: Nystatin Powder 15gm Bottle 1 APPLIC TOPICAL ×2 (05:16→17:40)
[2022-02-27] MEDS: Acetaminophen 500 MG Tablet 1000 MG PO ×2 (06:36→20:40)
[2022-02-27] MEDS: Pentoxifylline 400 MG Tablet PO (09:13)
[2022-02-27] MEDS: Clopidogrel Bisulfate 75 MG Tablet PO (09:13)
[2022-02-27] MEDS: Potassium Chloride Oral Tablet 20 MEQ PO (09:13)
[2022-02-27 09:17] VITALS: BP 152/72; PULSE 96
[2022-02-27] MEDS: Metoprolol Tartrate 50 MG Tablet PO (09:17)
--- NOTE | 2022-02-27 09:52 | WOUNDNOTE ---
wound photo: left lower leg (posterolateral view)
--- NOTE | 2022-02-27 09:53 | WOUNDNOTE ---
wound photo: left lower leg (anteromedial view)
--- NOTE | 2022-02-27 09:53 | WOUNDNOTE ---
wound photo: left lower leg (posterior view)
[2022-02-27 15:33] VITALS: BP 159/72; PULSE 97; RESP 18; TEMP 36.7; O2SAT 96
[2022-02-27 20:40] VITALS: BP 138/78; PULSE 121
[2022-02-27] MEDS: Atorvastatin Calcium 20 MG Tablet PO (20:40)
[2022-02-27] MEDS: Metoprolol Tartrate 100 MG Tablet PO (20:40)
[2022-02-27] MEDS: Doxepin Hydrochloride 10 MG Capsule PO (20:40)
[2022-02-28] MEDS: Vancomycin 125 MG/5 ML Susp PO.SYRINGE PO ×2 (05:18→16:27)
[2022-02-28] MEDS: Levothyroxine 137 MCG Tablet PO (05:18)
[2022-02-28] MEDS: Menthol/Lanolin/Calamine/Znox 113 GM Tube 1 APPLIC TOPICAL ×2 (05:24→21:05)
[2022-02-28] MEDS: Nystatin Powder 15gm Bottle 1 APPLIC TOPICAL ×2 (05:24→16:27)
[2022-02-28 05:27] VITALS: PULSE 104; O2SAT 94
[2022-02-28 07:24] VITALS: O2SAT 94
[2022-02-28] MEDS: Potassium Chloride Oral Tablet 20 MEQ PO (07:51)
[2022-02-28 07:52] VITALS: BP 151/67; PULSE 98
[2022-02-28] MEDS: Metoprolol Tartrate 50 MG Tablet PO (07:52)
[2022-02-28] MEDS: Clopidogrel Bisulfate 75 MG Tablet PO (07:52)
[2022-02-28] MEDS: Pentoxifylline 400 MG Tablet PO (08:04)
[2022-02-28 10:00] VITALS: PULSE 101; RESP 18
[2022-02-28] MEDS: Ondansetron ODT 4 MG Tablet PO (16:27)
--- NOTE | 2022-02-28 18:58 | NURSING ---
pt refused to be repositioned and turned this shift
[2022-02-28 21:06] VITALS: BP 157/82; PULSE 108
[2022-02-28] MEDS: Atorvastatin Calcium 20 MG Tablet PO (21:06)
[2022-02-28] MEDS: Doxepin Hydrochloride 10 MG Capsule PO (21:06)
[2022-02-28] MEDS: Metoprolol Tartrate 100 MG Tablet PO (21:06)
[2022-03-01] MEDS: Nystatin Powder 15gm Bottle 1 APPLIC TOPICAL ×2 (05:00→16:55)
[2022-03-01] MEDS: Vancomycin 125 MG/5 ML Susp PO.SYRINGE PO ×2 (05:00→16:54)
[2022-03-01] MEDS: Levothyroxine 137 MCG Tablet PO (05:00)
[2022-03-01] MEDS: Menthol/Lanolin/Calamine/Znox 113 GM Tube 1 APPLIC TOPICAL ×2 (05:00→20:01)
[2022-03-01] MEDS: Pentoxifylline 400 MG Tablet PO (07:54)
[2022-03-01] MEDS: Potassium Chloride Oral Tablet 20 MEQ PO (07:54)
[2022-03-01] MEDS: Clopidogrel Bisulfate 75 MG Tablet PO (07:55)
[2022-03-01 08:02] VITALS: BP 143/69; PULSE 115
[2022-03-01] MEDS: Metoprolol Tartrate 50 MG Tablet PO (08:02)
[2022-03-01 13:40] VITALS: BP 127/61; PULSE 100; RESP 14; TEMP 37.1; O2SAT 96
[2022-03-01 14:22] VITALS: O2SAT 96
--- NOTE | 2022-03-01 16:14 | NURSING ---
Received order for N.S. @ 75/hr per Dr. Sandoval, order repeated back.
[2022-03-01] MEDS: 0.9% Normal Saline 1,000 ML 75 ML IV (16:54)
[2022-03-01] MEDS: 0.9% Saline Lock 10 ML Syringe IV (17:04)
[2022-03-01 20:01] VITALS: BP 140/74; PULSE 118
[2022-03-01] MEDS: Doxepin Hydrochloride 10 MG Capsule PO (20:01)
[2022-03-01] MEDS: Metoprolol Tartrate 100 MG Tablet PO (20:01)
[2022-03-01] MEDS: Atorvastatin Calcium 20 MG Tablet PO (20:01)
[2022-03-01 22:28] VITALS: PULSE 118; RESP 16
[2022-03-02] MEDS: Menthol/Lanolin/Calamine/Znox 113 GM Tube 1 APPLIC TOPICAL ×2 (05:16→22:33)
[2022-03-02] MEDS: 0.9% Normal Saline 1,000 ML 75 ML IV ×2 (05:17→18:47)
[2022-03-02] MEDS: Nystatin Powder 15gm Bottle 1 APPLIC TOPICAL ×2 (05:17→16:49)
[2022-03-02] MEDS: Levothyroxine 137 MCG Tablet PO (05:17)
[2022-03-02] MEDS: Vancomycin 125 MG/5 ML Susp PO.SYRINGE PO ×2 (05:17→16:44)
[2022-03-02] MEDS: Clopidogrel Bisulfate 75 MG Tablet PO (07:29)
[2022-03-02] MEDS: Pentoxifylline 400 MG Tablet PO (07:30)
[2022-03-02] MEDS: Potassium Chloride Oral Tablet 20 MEQ PO (07:30)
[2022-03-02 07:43] VITALS: PULSE 110
[2022-03-02] MEDS: Metoprolol Tartrate 50 MG Tablet PO (07:43)
[2022-03-02 16:00] VITALS: BP 155/86; PULSE 98; RESP 14; TEMP 36.8; O2SAT 96
--- NOTE | 2022-03-02 20:15 | PN.TCU_ITS ---
Subjective Subjective Resident seen, examined for regulatory visit. She has no new problems, concerns, issues, complaints. Over the weekend, she was not eating well, and she was started on IV fluids, she ate a little better today. I encouraged her to work hard in therapy, hoping she will be able to go home. Objective Data Objective Data Vital Signs: Vital Signs Temp Pulse Resp BP Pulse Ox 98.3 F 98 14 155/86 H 96 03/02/22 16:00 03/02/22 16:00 03/02/22 16:00 03/02/22 16:00 03/02/22 16:00 Oxygen Flow Rate (L/min) 2 Oxygen Delivery Method Room Air Weight: 61.416 kg Body Mass Index (BMI) 27.7 Intake & Output: Intake and Output for Last 24 Hours 02/28/22 03/01/22 03/02/22 23:59 23:59 23:59 Intake Total 360 / 360 360 / 360 2408.75 / 2408.75 Output Total 1400 / 1400 400 / 400 Balance -1040 / -1040 -40 / -40 2408.75 / 2408.75 Lab / Micro Data Result Diagrams: 02/25/22 05:13 02/25/22 05:13 Micro: Microbiology 02/13/22 09:40 Stool C. difficile GDH Antigen & Toxins - Final 02/13/22 09:40 Stool C. difficile DNA Amplification - Final 02/07/22 00:20 Blood Culture (Wb) - Anticubital Left Blood Culture - Final No growth in 5 days. 02/07/22 00:20 Blood Culture (Wb) - Anticubital Left Blood Culture - Final No growth in 5 days. 02/09/22 13:10 Nasal Secretion SARS-CoV-2 Antigen (Rapid) - Final 02/07/22 00:10 Urine Catheter - Catheter Urine Culture - Final Klebsiella pneumoniae sp pneum Physical Exam Const alert General Appearance: cooperative HEENT normocephalic Eyes PERRL and EOMs intact bilaterally Neck supple, no JVD and no carotid bruits Resp normal respiratory effort, normal air movement and clear to auscultation bilaterally Cardio regular rate and regular rhythm GI normal to inspection, nondistended, normoactive bowel sounds, non-tender and non-distended Extremity normal capillary refill Extremity Narrative: Left lower extremity splint. General Extremity: Negative for edema Skin no rashes or lesions noted General Skin Exam: no breakdown Psych affect normal Appearance: appropriate Assessment & Plan Assessment/Plan (1) Debility: (2) Fall: (3) Contusion of right knee: (4) Closed fracture of left fibula and tibia: (5) Laceration of left leg: (6) Acute anemia: (7) Post-polio syndrome: (8) Hypothyroidism: (9) Hypertension: (10) Hyperlipidemia: (11) Insomnia: (12) Peripheral arterial occlusive disease: (13) Osteoporosis: PLAN: 71 year old female with below past medical history significant for polio, wheelchair bound, hospitalized for fall, left tib/fib fracture, right knee contusion, left lower extremity laceration, complicated by acute anemia requiring transfusion, admitted to TCU with debility, here for rehabilitation, strengthening, prior to discharge home alone. * Debility - PT/OT. * Pain - Tylenol 1000mg q6h prn pain (1-3), Tramadol 50mg q6h prn pain (4-5), Oxycodone 5mg q4h prn pain (6-10). * Bowel - no bowel regimen due to diarrhea from recurrent c. diff. * Adult immunization - Administer pneumonia vaccine, flu vaccine, covid19 vaccine as appropriate. * DVT prophylaxis - HAS-BLED score 3 high risk of bleeding, Narinder score 6 high risk of thromboembolism; due to anemia, already on plavix, trental, risk of bleeding out weigh risk of VTE, hold chemoprophylaxis. * Hyperlipidemia - Atorvastatin 20mg qhs. * Peripheral arterial occlusive disease - plavix 75mg daily, Trental 400mg daily. * Insomnia - Doxepin 10mg qhs. * Nutrition - Davion 1 packet bidcm. * Hypothyroidism - Levothyroxine 137mcg daily. * Hypertension - Metoprolol 50mg qam, 100mg qhs. * Shortness of breath - Duoneb 3ml [id number] prn. * Skin irritation - Calmoseptine topical bidcm. * Tinea Corporis - Nystatin powder topical bid. * Nausea - Zofran 4mg q6h prn. * Hypokalemia - KCL 20meq daily. * Recurrent c. diff colitis - Appreciate Dr. De La Cruz's help, Vancomycin 125mg bid thru 03/24/2022. * Dehydration - Normal saline 75cc/hour, stop when she is eating well. Capacity Capacity Assessment Tool Can the patient make a choice & communicate that choice?: Yes Can the patient understand benefits, risks and alternatives?: Yes Can the patient make a logical, rational choice?: Yes Is the choice the patient makes consistent w/ their values?: Yes Is there an impending, emergent risk to the patient?: No Does the patient have an Advance Directive?: No Is there a Surrogate Available?: Yes i.e. HCPOA: Yes i.e. close relative (spouse, child, parent, sibling)?: Yes
[2022-03-02] MEDS: Acetaminophen 500 MG Tablet 1000 MG PO (22:29)
[2022-03-02] MEDS: Doxepin Hydrochloride 10 MG Capsule PO (22:30)
[2022-03-02] MEDS: Atorvastatin Calcium 20 MG Tablet PO (22:30)
[2022-03-02 22:31] VITALS: BP 149/81; PULSE 129
[2022-03-02] MEDS: Metoprolol Tartrate 100 MG Tablet PO (22:31)
[2022-03-03] MEDS: Levothyroxine 137 MCG Tablet PO (05:16)
[2022-03-03] MEDS: Vancomycin 125 MG/5 ML Susp PO.SYRINGE PO (05:16)
[2022-03-03] MEDS: Nystatin Powder 15gm Bottle 1 APPLIC TOPICAL ×2 (05:17→17:34)
[2022-03-03] MEDS: Menthol/Lanolin/Calamine/Znox 113 GM Tube 1 APPLIC TOPICAL ×2 (05:17→23:35)
[2022-03-03 06:40] VITALS: O2SAT 97
[2022-03-03 07:54] VITALS: PULSE 77
[2022-03-03] MEDS: Clopidogrel Bisulfate 75 MG Tablet PO (07:54)
[2022-03-03] MEDS: Metoprolol Tartrate 50 MG Tablet PO (07:54)
[2022-03-03] MEDS: Potassium Chloride Oral Tablet 20 MEQ PO (07:55)
[2022-03-03] MEDS: 0.9% Normal Saline 1,000 ML 75 ML IV ×2 (07:56→21:35)
[2022-03-03] MEDS: Pentoxifylline 400 MG Tablet PO (07:56)
[2022-03-03 14:32] VITALS: BP 157/73; PULSE 102; RESP 18; TEMP 36.1; O2SAT 96
[2022-03-03] MEDS: Ondansetron ODT 4 MG Tablet PO (16:30)
[2022-03-03 21:45] VITALS: BP 166/76; PULSE 129
[2022-03-03] MEDS: Metoprolol Tartrate 100 MG Tablet PO (21:45)
[2022-03-03] MEDS: Doxepin Hydrochloride 10 MG Capsule PO (21:45)
[2022-03-03] MEDS: Atorvastatin Calcium 20 MG Tablet PO (21:46)
[2022-03-03] MEDS: Acetaminophen 500 MG Tablet 1000 MG PO (21:46)
[2022-03-03 23:16] VITALS: PULSE 129; RESP 16; O2SAT 99
--- NOTE | 2022-03-03 23:33 | NURSING ---
Patient continues to receive NS 75ml/hour via peripheral IV in right forearm. IV site remains dry, intact, no s/sx of infiltration. Will continue to monitor.
[2022-03-03] MEDS: Arthritis Pain Compound 60 CLICK TUBE TOPICAL (23:35)
[2022-03-04 05:50] LABS: Absolute Lymphocyte Count 1.87 X10^3/uL (0.83-4.51); Absolute Neutrophil Count 3.8 X10^3/uL (2.0-7.7); Basophil# 0.06 X10^3/uL; Basophil% 0.9 % (0-1); Eosinophil# 0.21 X10^3/uL; Eosinophils% 3.1 % (0-5); Hematocrit 31.6 % (37-47); Hemoglobin 9.4 g/dL (12.0-15.0); Lymphocyte # 1.87 X10^3/ul (0.83-4.51); Lymphocyte % 27.7 % (19-41); Mean Corp Hgb Conc 29.7 g/dL (32-36); Mean Platelet Vol. 8.9 fl (6.2-12.0); Monocyte# 0.82 X10^3/uL; Monocyte% 12.1 % (0-10); NRBC Flagged by Analyzer 0 % (0-5); Neutrophil # 3.75 X10^3/uL (2.7-7.7); Neutrophil % 55.6 % (47-70); Platelet Count 296 K/mm3 (150-450); RBC Distribution Width CV 15.7 % (11.6-14.6); RBC Distribution Width SD 54.6 fl (35.1-43.9); Red Blood Count 3.36 M/mm3 (4.2-5.4); White Blood Count 6.8 K/mm3 (4.4-11.0)
[2022-03-04 06:35] LABS: Anion Gap 3 (5-15); BUN 25 mg/dL (7-18); BUN/Creat Ratio 42.2 RATIO (10-20); Calcium,Total 7.8 mg/dL (8.5-10.1); Chloride 108 mmol/L (98-107); Creatinine, Serum 0.59 mg/dL (0.55-1.02); EST Glomerular Filtration Rate 105 mL/min (>60); Est Glom Filt Rate - Afr Amer 128 mL/min (>60); Estimated Creatinine Clearance 48.58 ml/min; Glucose 77 mg/dL (74-106); Potassium 3.7 mmol/L (3.5-5.1); Sodium Level 142 mmol/L (136-145)
[2022-03-04 06:50] VITALS: O2SAT 92
[2022-03-04] MEDS: Levothyroxine 137 MCG Tablet PO (06:51)
[2022-03-04] MEDS: Vancomycin 125 MG/5 ML Susp PO.SYRINGE PO (06:51)
[2022-03-04] MEDS: Arthritis Pain Compound 60 CLICK TUBE TOPICAL ×2 (06:53→15:59)
[2022-03-04] MEDS: Nystatin Powder 15gm Bottle 1 APPLIC TOPICAL ×2 (06:54→15:59)
[2022-03-04] MEDS: Menthol/Lanolin/Calamine/Znox 113 GM Tube 1 APPLIC TOPICAL ×2 (06:54→22:28)
--- NOTE | 2022-03-04 07:39 | PCM.PROGNOTE ---
Subjective Subjective 71-year-old female seen bedside for left lower extremity ulceration secondary to chronic venous insufficiency resting comfortably. She denies any constitutional symptoms today. She states she still has pain in her leg secondary to her fracture of her tibia and fibula. She states she will be following up with orthopedics for fracture management. She has no other complaints today. Objective Data Objective Data Vital Signs: Vital Signs Temp Pulse Resp BP Pulse Ox 97.0 F L 129 H 16 166/76 H 99 03/03/22 14:32 03/03/22 23:16 03/03/22 23:16 03/03/22 21:45 03/03/22 23:16 Oxygen Flow Rate (L/min) 3 Oxygen Delivery Method Room Air Weight: 61.416 kg Body Mass Index (BMI) 27.7 Intake & Output: Intake and Output for Last 24 Hours 03/02/22 03/03/22 03/04/22 23:59 23:59 23:59 Intake Total 2528.75 / 2528.75 2666.25 / 2666.25 Output Total 800 / 800 300 / 300 Balance 2528.75 / 2528.75 1866.25 / 1866.25 -300 / -300 Lab / Micro Data Result Diagrams: 03/04/22 05:18 03/04/22 05:18 Labs: Laboratory Results - last 24 hr 03/04/22 05:18: WBC 6.8, RBC 3.36 L, Hgb 9.4 L, Hct 31.6 L, MCV 94.0, MCH 28.0, MCHC 29.7 L, RDW Std Deviation 54.6 H, RDW Coeff of Naseem 15.7 H, Plt Count 296, MPV 8.9, Immature Gran % (Auto) 0.600, Neut % (Auto) 55.6, Lymph % (Auto) 27.7, Beckham % (Auto) 12.1 H, Eos % (Auto) 3.1, Baso % (Auto) 0.9, Absolute Neuts (auto) 3.8, Absolute Lymphs (auto) 1.87, Nucleated RBC % 0 03/04/22 05:18: Sodium 142, Potassium 3.7, Chloride 108 H, Carbon Dioxide 31.0, Anion Gap 3 L, BUN 25 H, Creatinine 0.59, Estim Creat Clear Calc 48.58, Est GFR (MDRD) Af Amer 128, Est GFR (MDRD) Non-Af 105, BUN/Creatinine Ratio 42.2 H, Glucose 77, Calcium 7.8 L Micro: Microbiology 02/13/22 09:40 Stool C. difficile GDH Antigen & Toxins - Final 02/13/22 09:40 Stool C. difficile DNA Amplification - Final 02/07/22 00:20 Blood Culture (Wb) - Anticubital Left Blood Culture - Final No growth in 5 days. 02/07/22 00:20 Blood Culture (Wb) - Anticubital Left Blood Culture - Final No growth in 5 days. 02/09/22 13:10 Nasal Secretion SARS-CoV-2 Antigen (Rapid) - Final 02/07/22 00:10 Urine Catheter - Catheter Urine Culture - Final Klebsiella pneumoniae sp pneum Physical Exam HEENT normocephalic Eyes PERRL General Eye: normal appearance of both eyes Neck General: normal visual inspection Lymph Lymphatic: no lymphadenopathy noted and no lymphedema noted Resp normal respiratory effort Cardio regular rate and regular rhythm Extremity no calf tenderness Skin Wound Narrative: Left foot/ankle/leg: Dry stable superficial scab to posterior heel with no evidence of infection, Lower extremity ulceration completely circumferential about leg but healing well - there are increased skin islands with continued epithelialization of the wound. The wounds are down to superficial subcutaneous tissue - Ulceration bases are granular and healthy appearing. There is no erythema, purulence, malodor, or proximal streaking noted. There is no bogginess or palpable fluctuance appreciated. Assessment & Plan Assessment/Plan (1) Venous insufficiency: (2) Delayed wound healing: (3) Ulcer of left lower extremity with fat layer exposed: (4) Closed fracture of left fibula and tibia: (5) Laceration of left leg: (6) Dry skin dermatitis: (7) Post-polio syndrome: (8) Chronic pain: QUALIFIERS: Chronic pain type: other chronic pain Qualified Code(s): G89.29 - Other chronic pain (9) Localized edema: (10) Osteoporosis: PLAN: Patient seen and evaluated Left leg ulcerations re-evaluated. Patient has improving left lower extremity ulcerations upon dressing change today. No signs of infection. Continue with local wound care: Clean with soap and water. Wounds dressed with adaptic, 4x4s, Kerlix, well padded posterior splint with heel offloaded. Change dressing every 3rd day. To continue offloading and fracture protection with splint use. To hang heels over a pillow to prevent further decubitus ulcer formation. She is doing well with this so far. She will be following up with orthopedics for fracture management. She will follow up in wound care center upon discharge with Dr. Cooper. The podiatry team will continue to follow her biweekly while in the house. Please do not hesitate to call if you have any questions. Jr. Matt Patel.P.M. [facility] [phone]
--- NOTE | 2022-03-04 07:55 | WOUNDNOTE ---
Left lower leg dressing changed with Dr Turong. Next dressing change due 03/07/22. Pt tolerated well. see intervention
[2022-03-04 08:33] VITALS: BP 161/75; PULSE 103
[2022-03-04] MEDS: Pentoxifylline 400 MG Tablet PO (08:33)
[2022-03-04] MEDS: Metoprolol Tartrate 50 MG Tablet PO (08:33)
[2022-03-04] MEDS: Clopidogrel Bisulfate 75 MG Tablet PO (08:33)
[2022-03-04] MEDS: Potassium Chloride Oral Tablet 20 MEQ PO (08:33)
[2022-03-04] MEDS: 0.9% Normal Saline 1,000 ML 75 ML IV (11:10)
--- NOTE | 2022-03-04 11:17 | NURSING ---
Addendum entered by Janet Alvares 03/04/22 11:18: Talked with resident about moving her to a clean room and she is agreeable to this. Original Note: Remains in special contact precautions. Resident no longer taking vancomycin for cdiff treatment and has been having more formed stools.
--- NOTE | 2022-03-04 14:48 | PHA.CONS1_ITS ---
Progress Note - Pharmacy Subjective: TCU FEBRUARY NOTE Objective: Allergies naproxen [From Naprosyn] Allergy (Verified 02/01/22 15:05) Rash Penicillins [PCN] Allergy (Verified 02/01/22 15:05) Rash amoxicillin Adverse Reaction (Verified 02/01/22 15:05) Rash cephalexin [From Keflex] Adverse Reaction (Verified 02/01/22 15:05) Rash clotrimazole [From Lotrimin] Adverse Reaction (Verified 02/01/22 15:05) Rash diphenhydramine [From Benadryl] Adverse Reaction (Verified 02/01/22 15:05) Rash griseofulvin Adverse Reaction (Verified 02/01/22 15:05) Rash ibuprofen [From Motrin] Adverse Reaction (Verified 02/01/22 15:05) Rash miconazole [From Monistat 1 Combo Pack] Adverse Reaction (Verified 02/01/22 15:05) Rash propranolol [From Inderal LA] Adverse Reaction (Verified 02/01/22 15:05) Rash rofecoxib [From Vioxx] Adverse Reaction (Verified 02/01/22 15:05) Rash Sulfa (Sulfonamide Antibiotics) Adverse Reaction (Verified 02/01/22 15:05) Rash Current Medications Generic Name Dose Route Start Last Admin Trade Name Freq PRN Reason Stop Dose Admin Acetaminophen 1,000 mg 02/04/22 07:55 03/03/22 21:46 Acetaminophen 500 Mg Tablet PO 1,000 mg Q6H PRN PRN Administration Pain Score 1-3 Albuterol/Ipratropium 3 ml 02/16/22 17:07 02/24/22 12:54 Ipratropium/Albuterol Sulfate 3 Ml Ampul.Neb INHALATION 3 ml Q6HWA.RT PRN Administration SHORTNESS OF BREATH Atorvastatin Calcium 20 mg 02/03/22 22:00 03/03/22 21:46 Atorvastatin Calcium 20 Mg Tablet PO 20 mg QHS NEIL Administration Calamine/Phenol 1 applic 02/15/22 22:00 03/04/22 06:54 Menthol/Lanolin/Calamine/Znox 113 Gm Tube TOPICAL 1 applic BID@0600,2200 [facility] Administration Protocol Clopidogrel Bisulfate 75 mg 02/05/22 08:00 03/04/22 08:33 Clopidogrel Bisulfate 75 Mg Tablet PO 75 mg DAILYCM NEIL Administration Compound Med 0 click 03/03/22 18:00 03/04/22 06:53 Arthritis Pain Compound 60 Click Tube TOPICAL 2 click BID [facility] Administration Protocol Doxepin HCl 10 mg 02/03/22 22:00 03/03/22 21:45 Doxepin Hydrochloride 10 Mg Capsule PO 10 mg QHS NEIL Administration Sodium Chloride 1,000 mls @ 75 mls/hr 03/01/22 16:15 03/04/22 11:10 IV 75 mls/hr .[id number] NEIL Administration L-Arginine/L-Glutamine/Calcium HMB 1 packet 02/04/22 08:00 03/04/22 08:33 Davion (Drew) Packet PO 1 packet BIDCM [facility] Administration Levothyroxine Sodium 137 mcg 02/11/22 06:00 03/04/22 06:51 Levothyroxine 137 Mcg Tablet PO 137 mcg DAILY@0600 NEIL Administration Metoprolol Tartrate 50 mg 02/04/22 08:00 03/04/22 08:33 Metoprolol Tartrate 50 Mg Tablet PO 50 mg BREAKFAST NEIL Administration Metoprolol Tartrate 100 mg 02/03/22 22:00 03/03/22 21:45 Metoprolol Tartrate 100 Mg Tablet PO 100 mg QHS [facility] Administration Nystatin 1 applic 02/16/22 13:20 03/04/22 06:54 Nystatin Powder 15gm Bottle TOPICAL 1 applic BID NEIL Administration Protocol Ondansetron HCl 4 mg 02/08/22 12:31 03/03/22 16:30 Ondansetron Odt 4 Mg Tablet PO 4 mg Q6H PRN PRN Administration NAUSEA/VOMITING Oxycodone HCl 5 mg 02/05/22 16:39 02/05/22 21:20 Oxycodone 5 Mg Tablet PO 5 mg Q4H PRN PRN Administration Pain Score 6-10 Pentoxifylline 400 mg 02/04/22 08:00 03/04/22 08:33 Pent[facility]lline 400 Mg Tablet [facility] [address] [facility] Administration Potassium Chloride 20 meq 02/19/22 08:00 03/04/22 08:33 Potassium Chloride Oral Tablet 20 Meq PO 20 meq DAILYCM NEIL Administration Sodium Chloride 10 - 40 ml 02/03/22 21:06 03/01/22 17:04 0.9% Saline Lock 10 Ml Syringe IV 10 ml UD PRN Administration SALINE FLUSH Tramadol HCl 50 mg 02/04/22 07:54 02/23/22 22:55 Tramadol 50 Mg Tablet PO 50 mg Q6H PRN PRN Administration Pain Score 4-5 Vancomycin HCl 125 mg 02/24/22 06:00 03/04/22 06:51 Vancomycin 125 Mg/5 Ml Susp Po.Syringe PO 03/24/22 05:59 125 mg DAILY NEIL Administration Taper Problem List (Last Reviewed 02/16/22 @ 14:[address] Pola De La Cruz MD) Recurrent Clostridioides difficile diarrhea (Acute) Ulcer of left lower extremity with fat layer exposed (Chronic) Closed fracture of left fibula and tibia (Acute) Laceration of left leg (Acute) Osteoporosis (Acute) Delayed wound healing (Chronic) Post-polio syndrome (Chronic) Venous insufficiency (Chronic) Chronic pain (Chronic) Peripheral arterial occlusive disease (Acute) Insomnia (Acute) Hyperlipidemia (Acute) Hypertension (Chronic) Hypothyroidism (Acute) Acute anemia (Acute) Fall (Acute) Debility (Acute) Contusion of right knee (Acute) Vital Signs Temp Pulse Resp BP Pulse Ox 97.0 F L 103 H 16 161/75 H 92 03/03/22 14:32 03/04/22 08:33 03/03/22 23:16 03/04/22 08:33 03/04/22 06:50 Oxygen Flow Rate (L/min) 2.5 Oxygen Delivery Method Nasal Cannula Weight: 61.416 kg Body Mass Index (BMI) 27.7 Sodium 142 mmol/L (136-145) 03/04/22 05:18 Potassium 3.7 mmol/L (3.5-5.1) 03/04/22 05:18 Chloride 108 mmol/L (98-107) H 03/04/22 05:18 Carbon Dioxide 31.0 mmol/L (21.0-32.0) 03/04/22 05:18 Anion Gap 3 (5-15) L 03/04/22 05:18 BUN 25 mg/dL (7-18) H 03/04/22 05:18 Creatinine 0.59 mg/dL (0.55-1.02) 03/04/22 05:18 Est GFR (MDRD) Af Amer 128 mL/min (>60) 03/04/22 05:18 Est GFR (MDRD) Non-Af 105 mL/min (>60) 03/04/22 05:18 BUN/Creatinine Ratio 42.2 RATIO (10-20) H 03/04/22 05:18 Glucose 77 mg/dL (74-106) 03/04/22 05:18 Assessment/Plan: 1. Pain: acetaminophen 1000mg PO Q6H PRN Pain 1-3, tramadol 50mg PO Q6H PRN Pain 4-5, oxycodone 10mg PO Q4H PRN Pain 6-10 and Arthritis Pain compound 2 clicks topically right knee BID. Please continue to monitor patient for S/S increased/decreased pain, oversedation, renal function (last CrCl =66mL/min using adjusted body weight), PRN medication usage. 2. Hypertension: metoprolol tartrate 50mg PO BREAKFAST and 100mg PO QHS. Please continue to monitor BP (last 161/75) and HR (last 103). 3. Hyperlipidemia: atorvastatin 20mg PO QHS. Please obtain lipid panel annually or sooner if clinically indicated. Of note; the resident does not have any lipid panels on file in [facility]. 4. PAD: clopidogrel 75mg PO daily and Trental 400mg PO Daily.Please continue to monitor. Podiatry following. Please continue to monitor for S/S bleeding. 5. Hypothyroidism: levothyroxine 137mcg PO Daily. Please continue to monitor thyroid function tests as clinically indicated, monitor for S/S hypothyroidism. Last TSH 03/2021. 6. Recurrent C diff colitis: vancomycin suspension 125mg/5mL PO taper through 03/24/22. Please continue to monitor. Dr. De La Cruz on consult. 7. Hypokalemia: potassium chloride 20mEq PO DAILYCM. Please continue to monitor potassium levels (last 3.7mmol/L). 8. Shortness of breath: ipratropium/albuterol 3mL inhalation Q6HWA.RT PRN SOB. Please continue to monitor for SOB and PRN usage. 9. Nausea: ondansetron 4mg PO Q6H PRN nausea/vomiting. Please continue to monitor for nausea and PRN usage. Psychotropic Medications: 1. Insomnia: doxepin 10mg PO QHS. This is a [employer] medication and can increase risk of anticholinergic effects as well as orthostatic hypotension. Please continue to monitor. Unnecessary Medications: None Bowel Regimen: None, recurrent diarrhea from C. diff. Date of Note:: 03/04/22
[2022-03-04] MEDS: Acetaminophen 500 MG Tablet 1000 MG PO (15:58)
[2022-03-04 15:59] VITALS: BP 168/77; PULSE 108; RESP 16; TEMP 36.7; O2SAT 97
[2022-03-04] MEDS: Lisinopril 10 MG Tablet PO (18:55)
[2022-03-04 22:28] VITALS: BP 142/66; PULSE 100
[2022-03-04] MEDS: Metoprolol Tartrate 100 MG Tablet PO (22:28)
[2022-03-04] MEDS: Atorvastatin Calcium 20 MG Tablet PO (22:29)
[2022-03-04] MEDS: Doxepin Hydrochloride 10 MG Capsule PO (22:29)
[2022-03-05] MEDS: Acetaminophen 500 MG Tablet 1000 MG PO ×2 (00:08→18:10)
[2022-03-05] MEDS: 0.9% Normal Saline 1,000 ML 75 ML IV ×2 (01:25→14:38)
--- NOTE | 2022-03-05 02:51 | NURSING ---
A&OX3. Declines to turn and reposition despite education on skin integrity, refuses to turn off of left side states too painful to lay on my other side, pillows provided per request to promote comfort. EAx2 with bed mobility. Educated on pharmacologic interventions, states will only accept Tylenol for pain management despite continued complaint of pain to BLE despite PRN Tylenol, states they make me sleep too much, verbalizes understanding. No distress observed or reported. Call light in reach.
[2022-03-05] MEDS: Levothyroxine 137 MCG Tablet PO (06:48)
[2022-03-05] MEDS: Vancomycin 125 MG/5 ML Susp PO.SYRINGE PO (06:48)
[2022-03-05] MEDS: Arthritis Pain Compound 60 CLICK TUBE TOPICAL ×2 (06:49→17:32)
[2022-03-05] MEDS: Clopidogrel Bisulfate 75 MG Tablet PO (07:45)
[2022-03-05] MEDS: Potassium Chloride Oral Tablet 20 MEQ PO (07:45)
[2022-03-05 07:48] VITALS: PULSE 104
[2022-03-05] MEDS: Metoprolol Tartrate 50 MG Tablet PO (07:48)
[2022-03-05] MEDS: Pentoxifylline 400 MG Tablet PO (07:48)
[2022-03-05] MEDS: Lisinopril 10 MG Tablet PO (07:48)
[2022-03-05 15:09] VITALS: BP 154/75; PULSE 102; RESP 16; TEMP 36.5; O2SAT 98
[2022-03-05 16:54] VITALS: O2SAT 98
[2022-03-05] MEDS: Nystatin Powder 15gm Bottle 1 APPLIC TOPICAL (17:39)
[2022-03-05 18:20] VITALS: PULSE 114; RESP 22
[2022-03-05] MEDS: Ipratropium/Albuterol Sulfate 3 ML AMPUL.NEB INHALATION (18:20)
--- NOTE | 2022-03-05 19:32 | RAD_ITS ---
EXAM: XR Left Tibia and Fibula, 2 Views CLINICAL INDICATION: 71 years old, Female; pain LLE TECHNIQUE: Frontal and lateral views of the left tibia and fibula. This report was created using [employer] report [employer] technology. COMPARISON: None. FINDINGS: Bones/joints: The fibula cannot be adequately evaluated due to overlying cast material. Slightly displaced transverse fracture of the proximal tibia. Preservation of the joint space. No sclerotic or destructive changes observed. Soft tissues: Soft tissue edema in the lower leg. No radiopaque foreign body. RAD/Tibia & Fibula 2 Views IMPRESSION: 1. The fibula cannot be adequately evaluated due to overlying cast material. Repeat x-ray with cast removed could be performed if indicated. 2. Slightly displaced transverse fracture of the proximal tibia. 3. Soft tissue edema in the lower leg. Electronically Signed: Troy Mazariegos MD at 21:02 EDT ,
--- NOTE | 2022-03-05 19:47 | NURSING ---
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 request and notified of Dr. Sandoval encouragement to complete chest xray to determine if IV fluids to be continued, discussed patient goals for return home, requested if patient would like to order hospice consult to provide support with return home. Patient declines stating I want to stay here and stay on the same course, pt. states further I know I can't go home because I can't even take myself to the bathroom and I don't want to go on hospice, I want to get stronger. Patient encouraged to increased nutritional intake, and consider PRN pain mediations to assist with pain level, verbalized understanding. Agrees to chest xray at this time. Original Note: Pt. notified of new order for chest xray per . Patient expresses frustration stating she does not understand why she needs chest xray, per dayshift RN patient was complaining of SOB and crackles auscultated, IV fluids continue as ordered. patient educated on reason for order. Patient becomes aggravated stating first I get a UTI then C-diff now this, I just want to go home. Patient states My leg hurts now too after getting off the bedpan earlier today, I think it's broken. Patient educted on recent tib/fib fx prior to admission to TCU and chronic leg wounds that contribute to leg pain. Patient EA to [place] assist x2 with bed mobility. Patient states I know I have fractures, I have 2. LLE observed, dressing in place per order, dry and intact. Patient offered pain medication at this time to assist with pain management, patient declines despite education on pharmacologic options. Patient educated on importance of T&R to maintain skin integrity. Patient states I will try to complete chest xray and declines pain medication prior to imaging. Dr. Sandoval contacted via telephone, notified of patient stating may not be able to complete chest xray due to pain with movement, declining pain medications other than tylenol that is ineffective for pain management, patient requesting xray for LLE stating increased pain after turning and repositioning off bed butcher, declining turn and repositioning to promote skin integrity due to voiced pain with little movement, expressing frustration with recent UTI and re-current C-diff and stating wants to go home. Per discuss goal with patient goal to return home and ask patient if would like hospice referral, new order for tib/fib LLE xray, encourage to complete chest xray as ordered to determine if IV fluids should continue.
--- NOTE | 2022-03-05 20:00 | RAD_ITS ---
EXAM: XR Chest, 2 Views CLINICAL INDICATION: 71 years old, Female; Adventious Lung sounds TECHNIQUE: Frontal and lateral views of the chest. This report was created using [employer] report generation technology. COMPARISON: None. FINDINGS: Lungs and pleural spaces: Large left pleural effusion. Mild bibasilar infiltrates or atelectasis. Calcified granuloma right midlung. No pneumothorax. Heart: Unremarkable. Cardiac silhouette not enlarged. Mediastinum: Central airways and mediastinal contour are unremarkable. Bones/joints: Unremarkable. Soft tissues: Unremarkable. RAD/Chest PA and Lateral IMPRESSION: 1. Large left pleural effusion. 2. Mild bibasilar infiltrates or atelectasis. Electronically Signed: Troy Mazariegos MD at 21:04 EDT ,
--- NOTE | 2022-03-05 21:50 | NURSING ---
Addendum entered by Ladonna Jordan 03/05/22 23:08: @22:30 Received phone call from , new orders received: Change thoracentesis date to Wednesday03/06/22, hold Plavix dose AM of 03/06/22, STAT PT/INR/PTT for thoracentesis in AM. Original Note: Contacted via telephone notifying of chest xray and tib/fib xray results. New orders received: CT Left Knee/Tib fib without contrast do tonight if able, do not sent to ED for imaging, stop IV fluids, schedule left lung ultrasound guided thoracentesis therapeutic for Wednesday, orders repeated back.
[2022-03-05 22:15] VITALS: BP 150/67; PULSE 99; RESP 14; TEMP 36.7; O2SAT 98
[2022-03-05 22:19] VITALS: BP 150/67; PULSE 99
[2022-03-05] MEDS: Metoprolol Tartrate 100 MG Tablet PO (22:19)
[2022-03-05] MEDS: Doxepin Hydrochloride 10 MG Capsule PO (22:19)
[2022-03-05] MEDS: Atorvastatin Calcium 20 MG Tablet PO (22:19)
[2022-03-05] MEDS: Menthol/Lanolin/Calamine/Znox 113 GM Tube 1 APPLIC TOPICAL (22:22)
[2022-03-05 23:42] LABS: Prothrombin Time (Protime)PT. 13.3 SECONDS (11.7-14.9)
[2022-03-05 23:43] LABS: Partial Thromboplast Time 32.7 Seconds (24.1-36.2)
--- NOTE | 2022-03-06 00:02 | NURSING ---
Addendum entered by Ladonna Jordan 03/06/22 06:01: Presents in bed. A&Ox3. Pleasant, talkative. Pain assessed to LLE, pt. states It feels so much better today compared to yesterday. Offered PRN tylenol at this time, declined stating I don't need it. Notified patient that daughter to be updated on new orders, patient states I already told her, you don't need to call. No resp distress observed or reported. O2 on via NC 3L, spo2 93%. Repositioned at this time for comfort per pt. request x2 staff assist, patient participates in repositioning. Denies further requests. Call light in reach. Original Note: Presents in bed, no c/o pain at this time, states imaging went well, better than I expected. No c/o SOB. No resp distress observed or reported. Call light in reach.
[2022-03-06] MEDS: Menthol/Lanolin/Calamine/Znox 113 GM Tube 1 APPLIC TOPICAL ×2 (05:47→22:32)
[2022-03-06] MEDS: Nystatin Powder 15gm Bottle 1 APPLIC TOPICAL ×2 (05:47→17:02)
[2022-03-06] MEDS: Vancomycin 125 MG/5 ML Susp PO.SYRINGE PO (05:48)
[2022-03-06] MEDS: Levothyroxine 137 MCG Tablet PO (05:49)
[2022-03-06] MEDS: Arthritis Pain Compound 60 CLICK TUBE TOPICAL ×2 (05:49→17:01)
--- NOTE | 2022-03-06 07:49 | NURSING ---
on unit, reviewed CT results, verbal order for Dr. Sai Ye to be notified today of CT results
[2022-03-06] MEDS: Acetaminophen 500 MG Tablet 1000 MG PO ×2 (08:07→16:57)
[2022-03-06 08:08] VITALS: BP 163/75; PULSE 109
[2022-03-06] MEDS: Lisinopril 10 MG Tablet PO (08:08)
[2022-03-06] MEDS: Metoprolol Tartrate 50 MG Tablet PO (08:08)
[2022-03-06] MEDS: Potassium Chloride Oral Tablet 20 MEQ PO (08:09)
[2022-03-06] MEDS: Pentoxifylline 400 MG Tablet PO (08:09)
[2022-03-06 08:43] VITALS: PULSE 100; RESP 18
--- NOTE | 2022-03-06 09:28 | NURSING ---
In to speak with resident regarding statement involving a Bedpan transfer. Sat in chair at [facility] level, introduced myself. Asked her open ended questions regarding concerns with being placed on the bedpan. Resident appeared surprised and stated that her leg is broken and that she has to use the bedpan to have a BM. I asked her if there has been any incident with the bedpan that she felt didn't go well. She replied it always hurts when rolling to get on the bedpan, but I tell the staff how to do it and I participate in getting it done. She denied any mistreatment or mishandling by staff. Asked her directly about statement made regarding her leg being broken while being placed on a bedpan. Her reply was that she said that to get the xrays ordered to appease her. Asked her is she had any other concerns she would like to discuss with me. She said the food could be better. Asked her if there was something that was not on the menu that she really wishes she could have. She stated a quiche. Left a message with assistant property manager to see if this could be accommodated for the resident. Made sure resident's call light and personal items were all placed where she prefers them and asked if there was anything else she needed. She stated no and thanked me for my concern. Encouraged her to let me know if she has any issues or concerns that arise during her stay and showered her where my name and number are on her white board.
--- NOTE | 2022-03-06 09:56 | NURSING ---
Addendum entered by Светлана Queen 03/06/22 11:18: Message was about Ct of of left lower extremity. Original Note: Left message for Dr. Sai Ye's office that pt is is having a thoracentesis today. Provided number if they have any questions.
--- NOTE | 2022-03-06 11:20 | NURSING ---
Spoke with Aster from Dr Sai Ye's office. She will make Dr. Ye aware of CT of left lower extremity
--- NOTE | 2022-03-06 15:08 | NURSING ---
Received call from Radiology. Per their report, 950cc of clear yellow fluid was drained from the chest. Opsite to remain in place for 24-48 hours.
[2022-03-06 15:29] VITALS: BP 150/76; PULSE 96; RESP 18; TEMP 36.6; O2SAT 97
--- NOTE | 2022-03-06 16:50 | NURSING ---
Family member comes to nurses station, stating Room 19 needs her purewick hooked up. This nurse nurse said I would make staff aware. She then stated Like now with agitation in her voice. This nurse said ok, and asked if she was not using the bedpan. The family member stated Well she can't get on it by herself. Staff back to room to assist pt.
[2022-03-06] MEDS: Atorvastatin Calcium 20 MG Tablet PO (22:32)
[2022-03-06] MEDS: Doxepin Hydrochloride 10 MG Capsule PO (22:32)
[2022-03-06 22:33] VITALS: BP 161/79; PULSE 115
[2022-03-06] MEDS: Metoprolol Tartrate 100 MG Tablet PO (22:33)
--- NOTE | 2022-03-07 02:00 | PCA ---
[employer] offered to help patient get washed for the night and assist with ADLS. Patient refused to get cleaned up stating she was too tired from her procedure earlier in the day had just got comfortable. she did not want to be disturbed. [employer] adjusted patient slightly in bed and made sure call light was within reach.
[2022-03-07] MEDS: Menthol/Lanolin/Calamine/Znox 113 GM Tube 1 APPLIC TOPICAL ×2 (05:38→21:57)
[2022-03-07] MEDS: Levothyroxine 137 MCG Tablet PO (05:38)
[2022-03-07] MEDS: Arthritis Pain Compound 60 CLICK TUBE TOPICAL ×2 (05:39→21:56)
[2022-03-07] MEDS: Vancomycin 125 MG/5 ML Susp PO.SYRINGE PO (05:39)
[2022-03-07] MEDS: Nystatin Powder 15gm Bottle 1 APPLIC TOPICAL (05:39)
[2022-03-07 10:15] VITALS: BP 143/102; PULSE 115
[2022-03-07] MEDS: Potassium Chloride Oral Tablet 20 MEQ PO (10:15)
[2022-03-07] MEDS: Metoprolol Tartrate 50 MG Tablet PO (10:15)
[2022-03-07] MEDS: Pentoxifylline 400 MG Tablet PO (10:16)
[2022-03-07] MEDS: Clopidogrel Bisulfate 75 MG Tablet PO (10:16)
[2022-03-07] MEDS: Lisinopril 10 MG Tablet PO (10:16)
[2022-03-07 16:00] VITALS: BP 157/62; PULSE 106; RESP 18; TEMP 36.7; O2SAT 99
[2022-03-07] MEDS: Acetaminophen 500 MG Tablet 1000 MG PO (21:55)
[2022-03-07 21:57] VITALS: BP 130/58; PULSE 99
[2022-03-07] MEDS: Doxepin Hydrochloride 10 MG Capsule PO (21:57)
[2022-03-07] MEDS: Atorvastatin Calcium 20 MG Tablet PO (21:57)
[2022-03-07] MEDS: Metoprolol Tartrate 100 MG Tablet PO (21:57)
[2022-03-07] MEDS: 0.9% Saline Lock 10 ML Syringe IV (21:58)
[2022-03-08] MEDS: Levothyroxine 137 MCG Tablet PO (05:57)
[2022-03-08] MEDS: Vancomycin 125 MG/5 ML Susp PO.SYRINGE PO (05:57)
[2022-03-08] MEDS: Arthritis Pain Compound 60 CLICK TUBE TOPICAL ×2 (06:02→21:19)
[2022-03-08] MEDS: Menthol/Lanolin/Calamine/Znox 113 GM Tube 1 APPLIC TOPICAL ×2 (06:03→21:20)
[2022-03-08] MEDS: Pentoxifylline 400 MG Tablet PO (10:20)
[2022-03-08] MEDS: Potassium Chloride Oral Tablet 20 MEQ PO (10:20)
[2022-03-08 10:21] VITALS: PULSE 99
[2022-03-08] MEDS: Clopidogrel Bisulfate 75 MG Tablet PO (10:21)
[2022-03-08] MEDS: Lisinopril 10 MG Tablet PO (10:21)
[2022-03-08] MEDS: Metoprolol Tartrate 50 MG Tablet PO (10:21)
[2022-03-08] MEDS: Acetaminophen 500 MG Tablet 1000 MG PO ×2 (15:03→23:52)
[2022-03-08 16:27] VITALS: BP 105/58; PULSE 97; RESP 18; TEMP 36.8; O2SAT 98
[2022-03-08] MEDS: Nystatin Powder 15gm Bottle 1 APPLIC TOPICAL (17:17)
[2022-03-08 20:35] VITALS: O2SAT 97
[2022-03-08 21:20] VITALS: BP 122/62; PULSE 115
[2022-03-08] MEDS: Metoprolol Tartrate 100 MG Tablet PO (21:20)
[2022-03-08] MEDS: Atorvastatin Calcium 20 MG Tablet PO (21:21)
[2022-03-08] MEDS: Doxepin Hydrochloride 10 MG Capsule PO (21:21)
[2022-03-09] MEDS: Menthol/Lanolin/Calamine/Znox 113 GM Tube 1 APPLIC TOPICAL ×2 (06:04→21:28)
[2022-03-09] MEDS: Nystatin Powder 15gm Bottle 1 APPLIC TOPICAL ×2 (06:05→17:57)
[2022-03-09] MEDS: Arthritis Pain Compound 60 CLICK TUBE TOPICAL ×2 (06:05→17:56)
[2022-03-09] MEDS: Levothyroxine 137 MCG Tablet PO (06:05)
[2022-03-09] MEDS: Vancomycin 125 MG/5 ML Susp PO.SYRINGE PO (06:08)
[2022-03-09] MEDS: Pentoxifylline 400 MG Tablet PO (08:03)
[2022-03-09] MEDS: Potassium Chloride Oral Tablet 20 MEQ PO (08:03)
[2022-03-09] MEDS: Clopidogrel Bisulfate 75 MG Tablet PO (08:03)
[2022-03-09] MEDS: Lisinopril 10 MG Tablet PO (08:04)
[2022-03-09 09:05] VITALS: PULSE 104
[2022-03-09] MEDS: Metoprolol Tartrate 50 MG Tablet PO (09:05)
--- NOTE | 2022-03-09 14:43 | WOUNDNOTE ---
wound photo: left lower leg
--- NOTE | 2022-03-09 14:44 | WOUNDNOTE ---
wound photo: left lower leg
--- NOTE | 2022-03-09 14:44 | WOUNDNOTE ---
wound photo: left posterior lower leg/heel
[2022-03-09 15:07] VITALS: BP 147/69; PULSE 87; RESP 18; TEMP 36.3; O2SAT 100
[2022-03-09 21:27] VITALS: BP 124/59; PULSE 118
[2022-03-09] MEDS: Atorvastatin Calcium 20 MG Tablet PO (21:27)
[2022-03-09] MEDS: Doxepin Hydrochloride 10 MG Capsule PO (21:27)
[2022-03-09] MEDS: Metoprolol Tartrate 100 MG Tablet PO (21:27)
[2022-03-10] MEDS: Arthritis Pain Compound 60 CLICK TUBE TOPICAL ×2 (06:21→17:20)
[2022-03-10] MEDS: Nystatin Powder 15gm Bottle 1 APPLIC TOPICAL ×2 (06:22→17:20)
[2022-03-10] MEDS: Levothyroxine 137 MCG Tablet PO (06:22)
[2022-03-10] MEDS: Menthol/Lanolin/Calamine/Znox 113 GM Tube 1 APPLIC TOPICAL ×2 (06:22→21:45)
[2022-03-10 07:36] VITALS: PULSE 118
[2022-03-10] MEDS: Clopidogrel Bisulfate 75 MG Tablet PO (07:36)
[2022-03-10] MEDS: Lisinopril 10 MG Tablet PO (07:36)
[2022-03-10] MEDS: Pentoxifylline 400 MG Tablet PO (07:36)
[2022-03-10] MEDS: Metoprolol Tartrate 50 MG Tablet PO (07:36)
[2022-03-10] MEDS: Potassium Chloride Oral Tablet 20 MEQ PO (07:37)
[2022-03-10 15:42] VITALS: BP 130/53; PULSE 114; RESP 19; TEMP 36.4; O2SAT 98
[2022-03-10 20:02] VITALS: RESP 16; O2SAT 96
[2022-03-10] MEDS: Acetaminophen 500 MG Tablet 1000 MG PO (21:40)
[2022-03-10 21:41] VITALS: BP 137/51; PULSE 119
[2022-03-10] MEDS: Metoprolol Tartrate 100 MG Tablet PO (21:41)
[2022-03-10] MEDS: Atorvastatin Calcium 20 MG Tablet PO (21:41)
[2022-03-10] MEDS: Doxepin Hydrochloride 10 MG Capsule PO (21:41)
[2022-03-11 05:47] LABS: Absolute Lymphocyte Count 2.39 X10^3/uL (0.83-4.51); Absolute Neutrophil Count 5.4 X10^3/uL (2.0-7.7); Basophil# 0.06 X10^3/uL; Basophil% 0.7 % (0-1); Eosinophil# 0.35 X10^3/uL; Eosinophils% 3.8 % (0-5); Hemoglobin 9.4 g/dL (12.0-15.0); Lymphocyte # 2.39 X10^3/ul (0.83-4.51); Lymphocyte % 26.1 % (19-41); Mean Corp Hgb Conc 30.3 g/dL (32-36); Mean Corpuscular Hgb 28.1 pg (27.0-32.0); Mean Corpuscular Volume 92.5 fL (81-99); Mean Platelet Vol. 8.6 fl (6.2-12.0); Monocyte# 0.94 X10^3/uL; Monocyte% 10.3 % (0-10); NRBC Flagged by Analyzer 0 % (0-5); Neutrophil # 5.35 X10^3/uL (2.7-7.7); Neutrophil % 58.4 % (47-70); Platelet Count 359 K/mm3 (150-450); RBC Distribution Width SD 55.1 fl (35.1-43.9); Red Blood Count 3.35 M/mm3 (4.2-5.4); White Blood Count 9.2 K/mm3 (4.4-11.0)
[2022-03-11] MEDS: Levothyroxine 137 MCG Tablet PO (06:19)
[2022-03-11] MEDS: Arthritis Pain Compound 60 CLICK TUBE TOPICAL ×2 (06:21→17:24)
[2022-03-11] MEDS: Menthol/Lanolin/Calamine/Znox 113 GM Tube 1 APPLIC TOPICAL ×2 (06:21→22:02)
[2022-03-11] MEDS: Nystatin Powder 15gm Bottle 1 APPLIC TOPICAL ×2 (06:21→17:25)
[2022-03-11 06:28] LABS: Anion Gap 2 (5-15); BUN 34 mg/dL (7-18); BUN/Creat Ratio 49.5 RATIO (10-20); Calcium,Total 8.8 mg/dL (8.5-10.1); Chloride 104 mmol/L (98-107); Creatinine, Serum 0.69 mg/dL (0.55-1.02); EST Glomerular Filtration Rate 89 mL/min (>60); Est Glom Filt Rate - Afr Amer 108 mL/min (>60); Estimated Creatinine Clearance 44.85 ml/min; Glucose 86 mg/dL (74-106); Potassium 3.8 mmol/L (3.5-5.1); Sodium Level 141 mmol/L (136-145)
[2022-03-11 08:03] VITALS: O2SAT 94
[2022-03-11 08:28] VITALS: BP 126/66; PULSE 89; RESP 16; TEMP 36.2; O2SAT 96
[2022-03-11 08:30] VITALS: BP 126/66; PULSE 89
[2022-03-11] MEDS: Potassium Chloride Oral Tablet 20 MEQ PO (08:30)
[2022-03-11] MEDS: Clopidogrel Bisulfate 75 MG Tablet PO (08:30)
[2022-03-11] MEDS: Pentoxifylline 400 MG Tablet PO (08:30)
[2022-03-11] MEDS: Metoprolol Tartrate 50 MG Tablet PO (08:30)
[2022-03-11] MEDS: Lisinopril 10 MG Tablet PO (08:31)
[2022-03-11] MEDS: Vancomycin 125 MG/5 ML Susp PO.SYRINGE PO (08:33)
--- NOTE | 2022-03-11 12:49 | PN_ITS ---
Subjective Subjective 71-year-old female seen bedside for left lower extremity ulceration secondary to chronic venous insufficiency resting comfortably. She denies any constitutional symptoms today. She has resolving pain in her leg secondary to her fracture of her tibia and fibula. She states she will be following up with orthopedics for fracture management. Patient denies any signs or symptoms of infection at this time. She has no other complaints today. Objective Data Objective Data Vital Signs: Vital Signs Temp Pulse Resp BP Pulse Ox 97.2 F L 89 16 126/66 H 94 03/11/22 08:28 03/11/22 08:30 03/11/22 08:28 03/11/22 08:30 03/11/22 08:03 Oxygen Flow Rate (L/min) 2 Oxygen Delivery Method Nasal Cannula Weight: 56.699 kg Body Mass Index (BMI) 27.7 Intake & Output: Intake and Output for Last 24 Hours 03/09/22 03/10/22 03/11/22 23:59 23:59 23:59 Intake Total 600 / 600 480 / 480 Output Total 400 / 400 950 / 950 750 / 750 Balance 200 / 200 -470 / -470 -750 / -750 Lab / Micro Data Result Diagrams: 03/11/22 05:19 03/11/22 05:19 Labs: Laboratory Results - last 24 hr 03/11/22 05:19: WBC 9.2, RBC 3.35 L, Hgb 9.4 L, Hct 31.0 L, MCV 92.5, MCH 28.1, MCHC 30.3 L, RDW Std Deviation 55.1 H, RDW Coeff of Naseem 16.0 H, Plt Count 359, MPV 8.6, Immature Gran % (Auto) 0.700, Neut % (Auto) 58.4, Lymph % (Auto) 26.1, [place] % (Auto) 10.3 H, Eos % (Auto) 3.8, Baso % (Auto) 0.7, Absolute Neuts (auto) 5.4, Absolute Lymphs (auto) 2.39, Nucleated RBC % 0 03/11/22 05:19: Sodium 141, Potassium 3.8, Chloride 104, Carbon Dioxide 35.0 H, Anion Gap 2 L, BUN 34 H, Creatinine 0.69, Estim Creat Clear Calc 44.85, Est GFR (MDRD) Af Amer 108, Est GFR (MDRD) Non-Af 89, BUN/Creatinine Ratio 49.5 H, Glucose 86, Calcium 8.8 Micro: Microbiology 02/13/22 09:40 Stool C. difficile GDH Antigen & Toxins - Final 02/13/22 09:40 Stool C. difficile DNA Amplification - Final 02/07/22 00:20 Blood Culture (Wb) - Anticubital Left Blood Culture - Final No growth in 5 days. 02/07/22 00:20 Blood Culture (Wb) - Anticubital Left Blood Culture - Final No growth in 5 days. 02/09/22 13:10 Nasal Secretion SARS-CoV-2 Antigen (Rapid) - Final 02/07/22 00:10 Urine Catheter - Catheter Urine Culture - Final Klebsiella pneumoniae sp pneum Physical Exam HEENT normocephalic Eyes PERRL General Eye: normal appearance of both eyes Neck General: normal visual inspection Lymph Lymphatic: no lymphadenopathy noted and no lymphedema noted Resp normal respiratory effort Cardio regular rate and regular rhythm Extremity no calf tenderness Skin Wound Narrative: Left foot/ankle/leg: Dry stable superficial scab to posterior heel with no evidence of infection, Lower extremity ulceration completely circumferential about leg but healing well - there are increased skin islands with continued epithelialization of the wound. The wounds are down to superficial subcutaneous tissue - Ulceration bases are granular and healthy appearing. There is no erythema, purulence, malodor, or proximal streaking noted. There is no bogginess or palpable fluctuance appreciated. Assessment & Plan Assessment/Plan (1) Venous insufficiency: (2) Delayed wound healing: (3) Ulcer of left lower extremity with fat layer exposed: (4) Closed fracture of left fibula and tibia: (5) Laceration of left leg: (6) Dry skin dermatitis: (7) Post-polio syndrome: (8) Chronic pain: QUALIFIERS: Chronic pain type: other chronic pain Qualified Co de(s): G89.29 - Other chronic pain (9) Localized edema: (10) Osteoporosis: PLAN: Patient seen and evaluated Left leg ulcerations re-evaluated. Patient has improving left lower extremity ulcerations upon dressing change today. No signs of infection. Continue with local wound care: Clean with soap and water. Wounds dressed with adaptic, 4x4s, Kerlix, well padded posterior splint with heel offloaded. Change dressing every 3rd day. To continue offloading and fracture protection with splint use. To hang heels over a pillow to prevent further decubitus ulcer formation. She is doing well with this so far. She will be following up with orthopedics for fracture management. She will follow up in wound care center upon discharge with Dr. Cooper. The podiatry team will continue to follow her biweekly while in the house. Please do not hesitate to call if you have any questions. Yefri Champion D.P.M. [facility] [phone]
[2022-03-11] MEDS: Acetaminophen 500 MG Tablet 1000 MG PO (21:59)
[2022-03-11 22:01] VITALS: BP 126/61; PULSE 118
[2022-03-11] MEDS: Atorvastatin Calcium 20 MG Tablet PO (22:01)
[2022-03-11] MEDS: Metoprolol Tartrate 100 MG Tablet PO (22:01)
[2022-03-11] MEDS: Doxepin Hydrochloride 10 MG Capsule PO (22:01)
[2022-03-12] MEDS: Nystatin Powder 15gm Bottle 1 APPLIC TOPICAL ×2 (06:15→17:20)
[2022-03-12] MEDS: Levothyroxine 137 MCG Tablet PO (06:16)
[2022-03-12] MEDS: Arthritis Pain Compound 60 CLICK TUBE TOPICAL ×2 (06:16→22:43)
[2022-03-12] MEDS: Menthol/Lanolin/Calamine/Znox 113 GM Tube 1 APPLIC TOPICAL ×2 (06:16→22:40)
[2022-03-12] MEDS: Potassium Chloride Oral Tablet 20 MEQ PO (07:56)
[2022-03-12] MEDS: Lisinopril 10 MG Tablet PO (07:56)
[2022-03-12] MEDS: Clopidogrel Bisulfate 75 MG Tablet PO (07:56)
[2022-03-12 07:57] VITALS: PULSE 92
[2022-03-12] MEDS: Pentoxifylline 400 MG Tablet PO (07:57)
[2022-03-12] MEDS: Metoprolol Tartrate 50 MG Tablet PO (07:57)
[2022-03-12] MEDS: Iron Polysaccharide Complex 150 MG CAPSULE PO (09:33)
[2022-03-12] MEDS: Ondansetron ODT 4 MG Tablet PO (12:27)
--- NOTE | 2022-03-12 15:33 | NURSING ---
pt returned from f/u appt with Dr. Sai Ye. pt to F/U with ortho in 6 weeks. pt remains NWB to L LE. Ok for ROM to R LE and knee as tolerated.
[2022-03-12 16:00] VITALS: BP 117/54; PULSE 115; RESP 18; TEMP 36.8; O2SAT 92
--- NOTE | 2022-03-12 16:12 | NURSING ---
Contacted Dr. De La Cruz's office to notify him that pt will still be in TCU on 03/18/22. His office rescheduled the wound center appt for 03/25/22 at 2pm.
[2022-03-12 22:00] VITALS: RESP 14; O2SAT 98
[2022-03-12] MEDS: Acetaminophen 500 MG Tablet 1000 MG PO (22:07)
[2022-03-12 22:09] VITALS: BP 111/49; PULSE 119
[2022-03-12] MEDS: Doxepin Hydrochloride 10 MG Capsule PO (22:09)
[2022-03-12] MEDS: Metoprolol Tartrate 100 MG Tablet PO (22:09)
[2022-03-12] MEDS: Atorvastatin Calcium 20 MG Tablet PO (22:09)
--- NOTE | 2022-03-12 22:51 | NURSING ---
AUTO ROLLER reports patient requests siderails up x4, patient educated at this time on side rail policy, patient states I want them all up they help me move around in bed easier. Side rails x4 up per pt. request, pt. expresses thanks, no further requests at this time. No distress observed or reported.
[2022-03-13] VITALS (7 sets, daily range): BP systolic 115–133; BP diastolic 48; PULSE 92–115; RESP 16–18; TEMP 36.7; O2SAT 94–98
[2022-03-13] MEDS: Levothyroxine 137 MCG Tablet PO (05:07)
[2022-03-13] MEDS: Iron Polysaccharide Complex 150 MG CAPSULE PO (05:07)
[2022-03-13] MEDS: Potassium Chloride Oral Tablet 20 MEQ PO (08:09)
[2022-03-13] MEDS: Metoprolol Tartrate 50 MG Tablet PO (08:09)
[2022-03-13] MEDS: Clopidogrel Bisulfate 75 MG Tablet PO (08:10)
[2022-03-13] MEDS: Pentoxifylline 400 MG Tablet PO (08:10)
[2022-03-13] MEDS: Lisinopril 10 MG Tablet PO (08:10)
[2022-03-13] MEDS: Vancomycin 125 MG/5 ML Susp PO.SYRINGE PO (08:22)
[2022-03-13] MEDS: Arthritis Pain Compound 60 CLICK TUBE TOPICAL ×2 (09:24→20:28)
[2022-03-13] MEDS: Acetaminophen 500 MG Tablet 1000 MG PO ×2 (17:36→23:55)
[2022-03-13] MEDS: Nystatin Powder 15gm Bottle 1 APPLIC TOPICAL (18:12)
[2022-03-13] MEDS: Menthol/Lanolin/Calamine/Znox 113 GM Tube 1 APPLIC TOPICAL (20:28)
[2022-03-13] MEDS: Doxepin Hydrochloride 10 MG Capsule PO (20:29)
[2022-03-13] MEDS: Atorvastatin Calcium 20 MG Tablet PO (20:30)
[2022-03-14] MEDS: Menthol/Lanolin/Calamine/Znox 113 GM Tube 1 APPLIC TOPICAL ×2 (05:38→22:40)
[2022-03-14] MEDS: Levothyroxine 137 MCG Tablet PO (05:38)
[2022-03-14] MEDS: Iron Polysaccharide Complex 150 MG CAPSULE PO (05:38)
[2022-03-14] MEDS: Nystatin Powder 15gm Bottle 1 APPLIC TOPICAL ×2 (05:38→17:04)
[2022-03-14] MEDS: Potassium Chloride Oral Tablet 20 MEQ PO (07:40)
[2022-03-14 07:41] VITALS: PULSE 84
[2022-03-14] MEDS: Metoprolol Tartrate 50 MG Tablet PO (07:41)
[2022-03-14] MEDS: Clopidogrel Bisulfate 75 MG Tablet PO (07:41)
[2022-03-14] MEDS: Pentoxifylline 400 MG Tablet PO (07:42)
[2022-03-14] MEDS: Lisinopril 10 MG Tablet PO (07:42)
[2022-03-14] MEDS: Acetaminophen 500 MG Tablet 1000 MG PO ×2 (07:48→22:47)
[2022-03-14] MEDS: Arthritis Pain Compound 60 CLICK TUBE TOPICAL ×2 (09:41→22:39)
[2022-03-14 13:40] VITALS: O2SAT 98
[2022-03-14 16:00] VITALS: BP 130/62; PULSE 103; RESP 18; TEMP 36.7; O2SAT 97
[2022-03-14 19:57] VITALS: PULSE 119; RESP 16; O2SAT 95
[2022-03-14 22:37] VITALS: BP 124/55; PULSE 132
[2022-03-14 22:39] VITALS: PULSE 132
[2022-03-14] MEDS: Doxepin Hydrochloride 10 MG Capsule PO (22:39)
[2022-03-14] MEDS: Metoprolol Tartrate 100 MG Tablet PO (22:39)
[2022-03-14] MEDS: Atorvastatin Calcium 20 MG Tablet PO (22:40)
[2022-03-15] VITALS (7 sets, daily range): BP systolic 125–134; BP diastolic 53–57; PULSE 88–121; RESP 16; TEMP 36.9; O2SAT 93–98
[2022-03-15] MEDS: Menthol/Lanolin/Calamine/Znox 113 GM Tube 1 APPLIC TOPICAL ×2 (06:35→22:05)
[2022-03-15] MEDS: Iron Polysaccharide Complex 150 MG CAPSULE PO (06:35)
[2022-03-15] MEDS: Levothyroxine 137 MCG Tablet PO (06:35)
[2022-03-15] MEDS: Nystatin Powder 15gm Bottle 1 APPLIC TOPICAL ×2 (06:36→17:12)
[2022-03-15] MEDS: Potassium Chloride Oral Tablet 20 MEQ PO (07:51)
[2022-03-15] MEDS: Pentoxifylline 400 MG Tablet PO (07:52)
[2022-03-15] MEDS: Clopidogrel Bisulfate 75 MG Tablet PO (07:52)
[2022-03-15] MEDS: Metoprolol Tartrate 50 MG Tablet PO (07:52)
[2022-03-15] MEDS: Lisinopril 10 MG Tablet PO (07:53)
[2022-03-15] MEDS: Vancomycin 125 MG/5 ML Susp PO.SYRINGE PO (08:00)
[2022-03-15] MEDS: Arthritis Pain Compound 60 CLICK TUBE TOPICAL ×2 (08:01→22:08)
[2022-03-15] MEDS: Metoprolol Tartrate 100 MG Tablet PO (22:05)
[2022-03-15] MEDS: Doxepin Hydrochloride 10 MG Capsule PO (22:06)
[2022-03-15] MEDS: Atorvastatin Calcium 20 MG Tablet PO (22:06)
[2022-03-16] MEDS: Iron Polysaccharide Complex 150 MG CAPSULE PO (06:32)
[2022-03-16] MEDS: Levothyroxine 137 MCG Tablet PO (06:32)
[2022-03-16] MEDS: Menthol/Lanolin/Calamine/Znox 113 GM Tube 1 APPLIC TOPICAL ×2 (06:33→22:15)
[2022-03-16] MEDS: Nystatin Powder 15gm Bottle 1 APPLIC TOPICAL ×2 (06:33→16:15)
[2022-03-16 07:17] VITALS: O2SAT 92
[2022-03-16 08:21] VITALS: PULSE 114
[2022-03-16] MEDS: Pentoxifylline 400 MG Tablet PO (08:21)
[2022-03-16] MEDS: Metoprolol Tartrate 50 MG Tablet PO (08:21)
[2022-03-16] MEDS: Potassium Chloride Oral Tablet 20 MEQ PO (08:21)
[2022-03-16] MEDS: Lisinopril 10 MG Tablet PO (08:21)
[2022-03-16] MEDS: Clopidogrel Bisulfate 75 MG Tablet PO (08:22)
[2022-03-16] MEDS: Arthritis Pain Compound 60 CLICK TUBE TOPICAL ×2 (08:37→22:06)
--- NOTE | 2022-03-16 11:00 | WOUNDNOTE ---
wound photo: left lower leg (anterolateral view)
--- NOTE | 2022-03-16 11:02 | WOUNDNOTE ---
wound photo: left lower leg(posteromedial view)
--- NOTE | 2022-03-16 11:03 | WOUNDNOTE ---
wound photo: left lower leg (lateral view)
[2022-03-16 15:15] VITALS: BP 109/58; PULSE 117; RESP 20; TEMP 36.8; O2SAT 94
[2022-03-16 22:05] VITALS: BP 138/56; PULSE 125
[2022-03-16] MEDS: Metoprolol Tartrate 100 MG Tablet PO (22:05)
[2022-03-16] MEDS: Atorvastatin Calcium 20 MG Tablet PO (22:06)
[2022-03-16] MEDS: Doxepin Hydrochloride 10 MG Capsule PO (22:06)
[2022-03-16] MEDS: Acetaminophen 500 MG Tablet 1000 MG PO (22:07)
[2022-03-16 23:20] VITALS: PULSE 125; RESP 16; O2SAT 97
[2022-03-17 06:44] VITALS: O2SAT 91
[2022-03-17] MEDS: Levothyroxine 137 MCG Tablet PO (06:44)
[2022-03-17] MEDS: Iron Polysaccharide Complex 150 MG CAPSULE PO (06:44)
[2022-03-17] MEDS: Nystatin Powder 15gm Bottle 1 APPLIC TOPICAL ×2 (06:46→18:15)
[2022-03-17] MEDS: Menthol/Lanolin/Calamine/Znox 113 GM Tube 1 APPLIC TOPICAL ×2 (06:46→21:28)
[2022-03-17] MEDS: Potassium Chloride Oral Tablet 20 MEQ PO (08:34)
[2022-03-17 08:35] VITALS: PULSE 118
[2022-03-17] MEDS: Lisinopril 10 MG Tablet PO (08:35)
[2022-03-17] MEDS: Pentoxifylline 400 MG Tablet PO (08:35)
[2022-03-17] MEDS: Metoprolol Tartrate 50 MG Tablet PO (08:35)
[2022-03-17] MEDS: Clopidogrel Bisulfate 75 MG Tablet PO (08:35)
[2022-03-17] MEDS: Vancomycin 125 MG/5 ML Susp PO.SYRINGE PO (08:43)
[2022-03-17] MEDS: Arthritis Pain Compound 60 CLICK TUBE TOPICAL ×2 (08:44→21:35)
[2022-03-17] MEDS: Ondansetron ODT 4 MG Tablet PO (11:00)
[2022-03-17 12:30] VITALS: O2SAT 95
[2022-03-17 14:28] VITALS: BP 118/55; PULSE 100; RESP 16; TEMP 36.3; O2SAT 96
[2022-03-17] MEDS: Atorvastatin Calcium 20 MG Tablet PO (21:26)
[2022-03-17 21:27] VITALS: BP 122/48; PULSE 123
[2022-03-17] MEDS: Doxepin Hydrochloride 10 MG Capsule PO (21:27)
[2022-03-17] MEDS: Metoprolol Tartrate 100 MG Tablet PO (21:27)
[2022-03-17] MEDS: Acetaminophen 500 MG Tablet 1000 MG PO (21:37)
[2022-03-18 05:33] LABS: Absolute Lymphocyte Count 2.81 X10^3/uL (0.83-4.51); Absolute Neutrophil Count 6.5 X10^3/uL (2.0-7.7); Basophil# 0.07 X10^3/uL; Basophil% 0.6 % (0-1); Eosinophil# 0.41 X10^3/uL; Eosinophils% 3.8 % (0-5); Hematocrit 30.7 % (37-47); Hemoglobin 9.7 g/dL (12.0-15.0); Lymphocyte # 2.81 X10^3/ul (0.83-4.51); Lymphocyte % 25.7 % (19-41); Mean Corp Hgb Conc 31.6 g/dL (32-36); Mean Corpuscular Hgb 28.7 pg (27.0-32.0); Mean Corpuscular Volume 90.8 fL (81-99); Mean Platelet Vol. 8.2 fl (6.2-12.0); Monocyte# 1.05 X10^3/uL; Monocyte% 9.6 % (0-10); NRBC Flagged by Analyzer 0 % (0-5); Neutrophil # 6.49 X10^3/uL (2.7-7.7); Neutrophil % 59.5 % (47-70); Platelet Count 362 K/mm3 (150-450); RBC Distribution Width CV 16.1 % (11.6-14.6); RBC Distribution Width SD 54.6 fl (35.1-43.9); Red Blood Count 3.38 M/mm3 (4.2-5.4); White Blood Count 10.9 K/mm3 (4.4-11.0)
[2022-03-18] MEDS: Nystatin Powder 15gm Bottle 1 APPLIC TOPICAL ×2 (06:20→17:09)
[2022-03-18] MEDS: Menthol/Lanolin/Calamine/Znox 113 GM Tube 1 APPLIC TOPICAL ×2 (06:20→22:08)
[2022-03-18] MEDS: Iron Polysaccharide Complex 150 MG CAPSULE PO (06:21)
[2022-03-18] MEDS: Levothyroxine 137 MCG Tablet PO (06:22)
[2022-03-18 07:26] VITALS: O2SAT 91
[2022-03-18 08:19] VITALS: PULSE 99
[2022-03-18] MEDS: Metoprolol Tartrate 50 MG Tablet PO (08:19)
[2022-03-18] MEDS: Potassium Chloride Oral Tablet 20 MEQ PO (08:19)
[2022-03-18] MEDS: Clopidogrel Bisulfate 75 MG Tablet PO (08:20)
[2022-03-18] MEDS: Lisinopril 10 MG Tablet PO (08:21)
[2022-03-18] MEDS: Pentoxifylline 400 MG Tablet PO (08:21)
[2022-03-18] MEDS: Arthritis Pain Compound 60 CLICK TUBE TOPICAL ×2 (08:22→22:07)
[2022-03-18 16:00] VITALS: BP 90/52; PULSE 63; RESP 14; TEMP 37.1; O2SAT 95
[2022-03-18 20:00] VITALS: O2SAT 93
[2022-03-18 22:08] VITALS: BP 123/63; PULSE 118
[2022-03-18] MEDS: Atorvastatin Calcium 20 MG Tablet PO (22:08)
[2022-03-18] MEDS: Doxepin Hydrochloride 10 MG Capsule PO (22:08)
[2022-03-18] MEDS: Metoprolol Tartrate 100 MG Tablet PO (22:08)
[2022-03-18] MEDS: Acetaminophen 500 MG Tablet 1000 MG PO (22:09)
[2022-03-19] MEDS: Levothyroxine 137 MCG Tablet PO (06:32)
[2022-03-19] MEDS: Iron Polysaccharide Complex 150 MG CAPSULE PO (06:32)
[2022-03-19] MEDS: Menthol/Lanolin/Calamine/Znox 113 GM Tube 1 APPLIC TOPICAL ×2 (06:32→22:00)
[2022-03-19] MEDS: Nystatin Powder 15gm Bottle 1 APPLIC TOPICAL ×2 (06:32→17:20)
[2022-03-19 06:34] VITALS: O2SAT 93
[2022-03-19 09:02] VITALS: PULSE 95
[2022-03-19] MEDS: Potassium Chloride Oral Tablet 20 MEQ PO (09:02)
[2022-03-19] MEDS: Metoprolol Tartrate 50 MG Tablet PO (09:02)
[2022-03-19] MEDS: Lisinopril 10 MG Tablet PO (09:03)
[2022-03-19] MEDS: Clopidogrel Bisulfate 75 MG Tablet PO (09:03)
[2022-03-19] MEDS: Pentoxifylline 400 MG Tablet PO (09:03)
[2022-03-19] MEDS: Vancomycin 125 MG/5 ML Susp PO.SYRINGE PO (09:06)
[2022-03-19] MEDS: Arthritis Pain Compound 60 CLICK TUBE TOPICAL ×2 (09:08→22:10)
[2022-03-19 09:50] VITALS: O2SAT 93
[2022-03-19 16:00] VITALS: BP 135/69; PULSE 101; RESP 18; TEMP 36.7; O2SAT 92
[2022-03-19 21:59] VITALS: BP 103/48; PULSE 115
[2022-03-19 22:01] VITALS: PULSE 115
[2022-03-19] MEDS: Doxepin Hydrochloride 10 MG Capsule PO (22:01)
[2022-03-19] MEDS: Metoprolol Tartrate 100 MG Tablet PO (22:01)
[2022-03-19] MEDS: Atorvastatin Calcium 20 MG Tablet PO (22:01)
[2022-03-19] MEDS: Acetaminophen 500 MG Tablet 1000 MG PO (22:09)
[2022-03-20] MEDS: Iron Polysaccharide Complex 150 MG CAPSULE PO (06:47)
[2022-03-20] MEDS: Menthol/Lanolin/Calamine/Znox 113 GM Tube 1 APPLIC TOPICAL ×2 (06:47→22:35)
[2022-03-20] MEDS: Levothyroxine 137 MCG Tablet PO (06:47)
[2022-03-20] MEDS: Nystatin Powder 15gm Bottle 1 APPLIC TOPICAL ×2 (06:48→18:12)
--- NOTE | 2022-03-20 07:33 | PCM.PROGNOTE ---
Subjective Subjective Patient was seen this morning for follow up on chronic left leg wounds. She is resting in bed. No fever or complaints of chills, nausea or vomiting. Objective Data Objective Data Vital Signs: Vital Signs Temp Pulse Resp BP Pulse Ox 98.0 F 115 H 18 103/48 L 92 03/19/22 16:00 03/19/22 22:01 03/19/22 16:00 03/19/22 21:59 03/19/22 16:00 Oxygen Flow Rate (L/min) 2 Oxygen Delivery Method Room Air Weight: 52.163 kg Body Mass Index (BMI) 27.7 Intake & Output: Intake and Output for Last 24 Hours 03/18/22 03/19/22 03/20/22 23:59 23:59 23:59 Intake Total 240 / 240 540 / 540 Output Total 1400 / 1400 200 / 200 700 / 700 Balance -1160 / -1160 340 / 340 -700 / -700 Lab / Micro Data Result Diagrams: 03/18/22 05:19 03/11/22 05:19 Micro: Microbiology 02/13/22 09:40 Stool C. difficile GDH Antigen & Toxins - Final 02/13/22 09:40 Stool C. difficile DNA Amplification - Final 02/07/22 00:20 Blood Culture (Wb) - Anticubital Left Blood Culture - Final No growth in 5 days. 02/07/22 00:20 Blood Culture (Wb) - Anticubital Left Blood Culture - Final No growth in 5 days. 02/09/22 13:10 Nasal Secretion SARS-CoV-2 Antigen (Rapid) - Final 02/07/22 00:10 Urine Catheter - Catheter Urine Culture - Final Klebsiella pneumoniae sp pneum Physical Exam Skin Wound Narrative: Left foot/ankle/leg: Dry stable superficial scab to posterior heel with no evidence of infection, multiple chronic lower extremity ulcerations about leg - there are skin islands with continued epithelialization of the wound. The wounds are down to superficial subcutaneous tissue - there is some superficial sloughing skin, otherwise ulceration bases are granular and healthy appearing. There is no erythema, purulence, or proximal streaking noted. There is no bogginess or palpable fluctuance appreciated. Assessment & Plan Assessment/Plan (1) Venous insufficiency: (2) Delayed wound healing: (3) Ulcer of left lower extremity with fat layer exposed: (4) Closed fracture of left fibula and tibia: (5) Laceration of left leg: (6) Dry skin dermatitis: (7) Post-polio syndrome: (8) Chronic pain: QUALIFIERS: Chronic pain type: other chronic pain Qualified Code(s): G89.29 - Other chronic pain (9) Localized edema: (10) Osteoporosis: PLAN: Patient seen and evaluated Left leg ulcerations re-evaluated. Continue with local wound care: Clean with Dakin's soln and cover wounds with adaptic, 4x4s, Kerlix, well padded posterior splint with heel offloaded. Change dressing MWF. To continue offloading and fracture protection with splint use. She will be following up with orthopedics for fracture management. She will follow up in wound care center upon discharge. The podiatry team will continue to follow her weekly while in the house. Please do not hesitate to call if you have any questions.
[2022-03-20 08:06] VITALS: O2SAT 96
[2022-03-20 08:37] VITALS: BP 139/64; PULSE 96
[2022-03-20] MEDS: Pentoxifylline 400 MG Tablet PO (08:37)
[2022-03-20] MEDS: Clopidogrel Bisulfate 75 MG Tablet PO (08:37)
[2022-03-20] MEDS: Lisinopril 10 MG Tablet PO (08:37)
[2022-03-20] MEDS: Potassium Chloride Oral Tablet 20 MEQ PO (08:37)
[2022-03-20] MEDS: Metoprolol Tartrate 50 MG Tablet PO (08:37)
[2022-03-20 08:40] VITALS: BP 139/64; PULSE 96; RESP 16; TEMP 36.2; O2SAT 96
[2022-03-20] MEDS: Arthritis Pain Compound 60 CLICK TUBE TOPICAL ×2 (08:42→22:24)
--- NOTE | 2022-03-20 18:13 | NURSING ---
Urine noted to be dark, tea colored. Fluids encouraged. Resident with fresh pitcher of water next to bedside. Requesting to get back in bed. Has been up in chair most of the day.
[2022-03-20 22:28] VITALS: BP 105/56; PULSE 132
[2022-03-20] MEDS: Atorvastatin Calcium 20 MG Tablet PO (22:28)
[2022-03-20] MEDS: Metoprolol Tartrate 100 MG Tablet PO (22:28)
[2022-03-20] MEDS: Doxepin Hydrochloride 10 MG Capsule PO (22:28)
[2022-03-20] MEDS: Acetaminophen 500 MG Tablet 1000 MG PO (22:32)
[2022-03-20 23:00] VITALS: PULSE 132; RESP 16; O2SAT 95
[2022-03-21] MEDS: Levothyroxine 137 MCG Tablet PO (05:12)
[2022-03-21] MEDS: Iron Polysaccharide Complex 150 MG CAPSULE PO (05:12)
[2022-03-21] MEDS: Nystatin Powder 15gm Bottle 1 APPLIC TOPICAL ×2 (05:13→16:37)
[2022-03-21] MEDS: Potassium Chloride Oral Tablet 20 MEQ PO (08:31)
[2022-03-21 08:32] VITALS: BP 118/62; PULSE 84
[2022-03-21] MEDS: Metoprolol Tartrate 50 MG Tablet PO (08:32)
[2022-03-21] MEDS: Lisinopril 10 MG Tablet PO (08:32)
[2022-03-21] MEDS: Pentoxifylline 400 MG Tablet PO (08:35)
[2022-03-21] MEDS: Clopidogrel Bisulfate 75 MG Tablet PO (08:35)
[2022-03-21] MEDS: Arthritis Pain Compound 60 CLICK TUBE TOPICAL ×2 (08:35→22:46)
[2022-03-21] MEDS: Vancomycin 125 MG/5 ML Susp PO.SYRINGE PO (08:46)
[2022-03-21] MEDS: Menthol/Lanolin/Calamine/Znox 113 GM Tube 1 APPLIC TOPICAL ×2 (08:47→22:47)
[2022-03-21 12:01] VITALS: PULSE 81; RESP 16; O2SAT 93
[2022-03-21 15:32] VITALS: BP 118/62; PULSE 81; RESP 18; TEMP 36.7; O2SAT 93
--- NOTE | 2022-03-21 18:32 | NURSING ---
Patient states Davion upsets her stomach. This nurse gave her morning Davion with lunch and again with evening meal per request. No further complaints voiced this shift.
[2022-03-21 22:46] VITALS: BP 100/41; PULSE 112
[2022-03-21] MEDS: Atorvastatin Calcium 20 MG Tablet PO (22:49)
[2022-03-21] MEDS: Doxepin Hydrochloride 10 MG Capsule PO (22:49)
[2022-03-21] MEDS: Acetaminophen 500 MG Tablet 1000 MG PO (22:51)
[2022-03-22] MEDS: Levothyroxine 137 MCG Tablet PO ×2 (07:20→07:21)
[2022-03-22] MEDS: Nystatin Powder 15gm Bottle 1 APPLIC TOPICAL ×2 (07:21→17:57)
[2022-03-22] MEDS: Menthol/Lanolin/Calamine/Znox 113 GM Tube 1 APPLIC TOPICAL ×2 (07:21→22:15)
[2022-03-22] MEDS: Iron Polysaccharide Complex 150 MG CAPSULE PO (07:21)
[2022-03-22] MEDS: Pentoxifylline 400 MG Tablet PO (09:11)
[2022-03-22 09:12] VITALS: PULSE 92
[2022-03-22] MEDS: Potassium Chloride Oral Tablet 20 MEQ PO (09:12)
[2022-03-22] MEDS: Metoprolol Tartrate 50 MG Tablet PO (09:12)
[2022-03-22] MEDS: Lisinopril 10 MG Tablet PO (09:12)
[2022-03-22] MEDS: Clopidogrel Bisulfate 75 MG Tablet PO (09:12)
[2022-03-22] MEDS: Arthritis Pain Compound 60 CLICK TUBE TOPICAL ×2 (09:13→22:14)
[2022-03-22 15:15] VITALS: BP 129/71; PULSE 108; RESP 14; TEMP 37; O2SAT 96
[2022-03-22 22:16] VITALS: BP 144/69; PULSE 117
[2022-03-22] MEDS: Acetaminophen 500 MG Tablet 1000 MG PO (22:16)
[2022-03-22] MEDS: Atorvastatin Calcium 20 MG Tablet PO (22:16)
[2022-03-22] MEDS: Doxepin Hydrochloride 10 MG Capsule PO (22:16)
[2022-03-22] MEDS: Metoprolol Tartrate 100 MG Tablet PO (22:16)
--- NOTE | 2022-03-22 22:25 | NURSING ---
Pt requested all 4 side rails up for bed mobility and safety. Call light w/ in reach.
[2022-03-23] MEDS: Nystatin Powder 15gm Bottle 1 APPLIC TOPICAL ×2 (05:49→17:41)
[2022-03-23] MEDS: Menthol/Lanolin/Calamine/Znox 113 GM Tube 1 APPLIC TOPICAL ×2 (05:50→20:59)
[2022-03-23] MEDS: Iron Polysaccharide Complex 150 MG CAPSULE PO (05:50)
[2022-03-23] MEDS: Levothyroxine 137 MCG Tablet PO (05:52)
[2022-03-23 07:49] VITALS: O2SAT 94
[2022-03-23] MEDS: Vancomycin 125 MG/5 ML Susp PO.SYRINGE PO (08:50)
[2022-03-23] MEDS: Arthritis Pain Compound 60 CLICK TUBE TOPICAL ×2 (10:56→21:00)
[2022-03-23] MEDS: Pentoxifylline 400 MG Tablet PO (10:57)
[2022-03-23 10:58] VITALS: PULSE 110
[2022-03-23] MEDS: Metoprolol Tartrate 50 MG Tablet PO (10:58)
[2022-03-23] MEDS: Potassium Chloride Oral Tablet 20 MEQ PO (10:58)
[2022-03-23] MEDS: Clopidogrel Bisulfate 75 MG Tablet PO (10:59)
[2022-03-23] MEDS: Lisinopril 10 MG Tablet PO (10:59)
--- NOTE | 2022-03-23 11:40 | WOUNDNOTE ---
wound photo: left lower leg
--- NOTE | 2022-03-23 11:40 | WOUNDNOTE ---
wound photo: left lower leg
--- NOTE | 2022-03-23 14:39 | PCM.PN.ID ---
Physical Exam Narrative One episode of diarrhea today, otherwise doing ok. No fever. Const alert and no apparent distress General Appearance: cooperative Resp normal air movement and clear to auscultation bilaterally Cardio regular rate and regular rhythm GI soft to palpation, non-tender and non-distended Skin no rashes or lesions noted ID ID: Route of nutrition/ use of supplements: [] Nutritional Intake: [] IV Site: [] [place] Catheter: [] Assessment & Plan Assessment/Plan (1) Recurrent Clostridioides difficile diarrhea: PLAN: On po vanc, plan on long taper: 125mg 4x/day for 10 days (day 7 currently) then 2x/day for 7 days then 1x/day for 7 days then 1 q48h for 14 days. Wbc and diarrhea much better. Episode triggered by course of cipro which has a high association with cdiff. Not clear if she had a true uti given her lack of symptoms and only small/medium growth on ucx. Discussed options for when taper is complete, we agree to keep her on po vanc 125mg q3day until she can followup as an outpt Will follow. ID followup in 1 months
[2022-03-23 16:00] VITALS: BP 112/54; PULSE 97; RESP 14; TEMP 36.2; O2SAT 95
[2022-03-23] MEDS: Doxepin Hydrochloride 10 MG Capsule PO (20:59)
[2022-03-23] MEDS: Atorvastatin Calcium 20 MG Tablet PO (20:59)
[2022-03-23 21:00] VITALS: BP 100/43; PULSE 118
[2022-03-23] MEDS: Metoprolol Tartrate 100 MG Tablet PO (21:00)
[2022-03-23] MEDS: Acetaminophen 500 MG Tablet 1000 MG PO (21:03)
[2022-03-23 21:06] VITALS: PULSE 126; O2SAT 94
[2022-03-24] MEDS: Levothyroxine 137 MCG Tablet PO (05:56)
[2022-03-24] MEDS: Menthol/Lanolin/Calamine/Znox 113 GM Tube 1 APPLIC TOPICAL ×2 (05:56→21:43)
[2022-03-24] MEDS: Iron Polysaccharide Complex 150 MG CAPSULE PO (05:56)
[2022-03-24] MEDS: Nystatin Powder 15gm Bottle 1 APPLIC TOPICAL ×2 (05:56→17:54)
[2022-03-24 08:39] VITALS: PULSE 88
[2022-03-24] MEDS: Metoprolol Tartrate 50 MG Tablet PO (08:39)
[2022-03-24] MEDS: Pentoxifylline 400 MG Tablet PO (08:40)
[2022-03-24] MEDS: Potassium Chloride Oral Tablet 20 MEQ PO (08:40)
[2022-03-24] MEDS: Lisinopril 10 MG Tablet PO (08:40)
[2022-03-24] MEDS: Clopidogrel Bisulfate 75 MG Tablet PO (08:40)
[2022-03-24] MEDS: Arthritis Pain Compound 60 CLICK TUBE TOPICAL ×2 (08:42→21:32)
--- NOTE | 2022-03-24 13:05 | NURSING ---
Dr. Worrell Updated on pt's concern of x2 episodes of Diarrhea. Per Dr. Worrell he will come see pt on 03/25/22.
[2022-03-24 16:00] VITALS: BP 92/50; PULSE 114; RESP 18; TEMP 36.8; O2SAT 96
--- NOTE | 2022-03-24 16:01 | CASEMGMT ---
Social Work IDT met with patient, dtr and friend for care plan meeting. Discussed updates in PT/OT. Commended for increase in motivation and progress thus far, however, therapy encouraged pt to believe in self more to achieve safer slideboard transfers. The goal is for pt to gain as much independence as possible. Reexplained the best/recommended use of MC days - to use part B therapies to maintain strength at another SNF until WBS is given then use part A MC days in SNF. Explained wounds are chronic and not recommended use of MC days. Explained 60 consecutive day break in services to restart 100 day MC benefit. Explained IDT set DC date of 04/14. Provided folder of [facility] SNF lists with resource data, [place], skilled and nonskilled HHC lists, and [facility] has a wound care center to provide care as family is in [facility]. Offered DC planning assistance once pt/dtr decide on DC home with /7 care or SNF. DANA Patel AUDIO VISUAL ENGINEER
[2022-03-24] MEDS: Atorvastatin Calcium 20 MG Tablet PO (21:43)
[2022-03-24 21:44] VITALS: BP 104/46; PULSE 117
[2022-03-24] MEDS: Metoprolol Tartrate 100 MG Tablet PO (21:44)
[2022-03-24] MEDS: Doxepin Hydrochloride 10 MG Capsule PO (21:44)
[2022-03-24] MEDS: Acetaminophen 500 MG Tablet 1000 MG PO (21:49)
[2022-03-24 21:50] VITALS: O2SAT 93
[2022-03-25] MEDS: Iron Polysaccharide Complex 150 MG CAPSULE PO (06:30)
[2022-03-25] MEDS: Levothyroxine 137 MCG Tablet PO (06:30)
[2022-03-25] MEDS: Nystatin Powder 15gm Bottle 1 APPLIC TOPICAL ×2 (06:30→17:52)
[2022-03-25] MEDS: Menthol/Lanolin/Calamine/Znox 113 GM Tube 1 APPLIC TOPICAL ×2 (06:31→20:32)
[2022-03-25] MEDS: Potassium Chloride Oral Tablet 20 MEQ PO (08:37)
[2022-03-25 08:42] VITALS: RESP 16; O2SAT 95
[2022-03-25 10:37] VITALS: PULSE 86
[2022-03-25] MEDS: Metoprolol Tartrate 50 MG Tablet PO (10:37)
[2022-03-25] MEDS: Pentoxifylline 400 MG Tablet PO (10:38)
[2022-03-25] MEDS: Vancomycin 125 MG/5 ML Susp PO.SYRINGE PO ×2 (10:38→17:47)
[2022-03-25] MEDS: Lisinopril 10 MG Tablet PO (10:38)
[2022-03-25] MEDS: Clopidogrel Bisulfate 75 MG Tablet PO (10:38)
[2022-03-25] MEDS: Arthritis Pain Compound 60 CLICK TUBE TOPICAL ×2 (10:38→20:32)
[2022-03-25 16:00] VITALS: BP 125/55; PULSE 120; RESP 18; TEMP 36.1; O2SAT 94
--- NOTE | 2022-03-25 18:19 | PCM.PN.ID ---
Physical Exam Narrative Still having an increased amount of diarrhea, no fever, no abd pain Const alert and no apparent distress General Appearance: cooperative Resp Effort and Inspection: Negative for uses accessory muscles GI non-distended Skin no rashes or lesions noted ID ID: Route of nutrition/ use of supplements: [] Nutritional Intake: [] IV Site: [] [place] Catheter: [] Assessment & Plan Assessment/Plan (1) Recurrent Clostridioides difficile diarrhea: PLAN: Diarrhea increased while nearing end of taper. Will recheck stool panel, increase vanc to 125mg bid. Will see if can order dificid. Will follow.
[2022-03-25] MEDS: Atorvastatin Calcium 20 MG Tablet PO (20:32)
[2022-03-25 20:33] VITALS: PULSE 88
[2022-03-25] MEDS: Metoprolol Tartrate 100 MG Tablet PO (20:33)
[2022-03-25] MEDS: Doxepin Hydrochloride 10 MG Capsule PO (20:33)
[2022-03-25] MEDS: Acetaminophen 500 MG Tablet 1000 MG PO (20:38)
[2022-03-26] MEDS: Levothyroxine 137 MCG Tablet PO (06:30)
[2022-03-26] MEDS: Nystatin Powder 15gm Bottle 1 APPLIC TOPICAL ×2 (06:30→17:02)
[2022-03-26] MEDS: Iron Polysaccharide Complex 150 MG CAPSULE PO (06:30)
[2022-03-26] MEDS: Menthol/Lanolin/Calamine/Znox 113 GM Tube 1 APPLIC TOPICAL ×2 (06:30→22:50)
[2022-03-26] MEDS: Vancomycin 125 MG/5 ML Susp PO.SYRINGE PO ×2 (06:31→17:02)
[2022-03-26] MEDS: Potassium Chloride Oral Tablet 20 MEQ PO (08:23)
[2022-03-26] MEDS: Pentoxifylline 400 MG Tablet PO (08:24)
[2022-03-26] MEDS: Clopidogrel Bisulfate 75 MG Tablet PO (08:24)
[2022-03-26] MEDS: Lisinopril 10 MG Tablet PO (08:24)
[2022-03-26] MEDS: Arthritis Pain Compound 60 CLICK TUBE TOPICAL ×2 (08:25→22:45)
[2022-03-26 08:28] VITALS: BP 100/60; PULSE 89
[2022-03-26] MEDS: Metoprolol Tartrate 50 MG Tablet PO (08:28)
--- NOTE | 2022-03-26 09:34 | NURSING ---
Patient had liquid emesis at 910. Patient states Davion upsets her stomach and would like to drink it with lunch and supper. New bedpan put into patient's room to collect stool sample. No other complaints/issues to address at this time.
[2022-03-26 15:09] VITALS: BP 100/60; PULSE 89; RESP 14; TEMP 36.6; O2SAT 96
[2022-03-26 21:56] VITALS: O2SAT 95
[2022-03-26] MEDS: Acetaminophen 500 MG Tablet 1000 MG PO (22:40)
[2022-03-26 22:45] VITALS: BP 106/77; PULSE 105
[2022-03-26] MEDS: Metoprolol Tartrate 100 MG Tablet PO (22:45)
[2022-03-26] MEDS: Atorvastatin Calcium 20 MG Tablet PO (22:49)
[2022-03-26] MEDS: Doxepin Hydrochloride 10 MG Capsule PO (22:50)
[2022-03-27] MEDS: Nystatin Powder 15gm Bottle 1 APPLIC TOPICAL ×2 (06:33→16:35)
[2022-03-27] MEDS: Levothyroxine 137 MCG Tablet PO (06:33)
[2022-03-27] MEDS: Menthol/Lanolin/Calamine/Znox 113 GM Tube 1 APPLIC TOPICAL ×2 (06:34→22:35)
[2022-03-27] MEDS: Vancomycin 125 MG/5 ML Susp PO.SYRINGE PO ×2 (06:37→16:36)
--- NOTE | 2022-03-27 07:07 | PN_ITS ---
Subjective Subjective Patient was seen this morning for follow up on chronic left leg wounds. She is resting in bed. No fever or complaints of chills, nausea or vomiting. She brought a different type of absorption secondary dressing from home called [facility]. Objective Data Objective Data Vital Signs: Vital Signs Temp Pulse Resp BP Pulse Ox 97.9 F 105 H 14 106/77 95 03/26/22 15:09 03/26/22 22:45 03/26/22 15:09 03/26/22 22:45 03/26/22 21:56 Oxygen Flow Rate (L/min) 3 Oxygen Delivery Method Room Air Weight: 52.163 kg Body Mass Index (BMI) 27.7 Intake & Output: Intake and Output for Last 24 Hours 03/25/22 03/26/22 03/27/22 23:59 23:59 23:59 Intake Total 960 / 960 420 / 420 Output Total 400 / 400 750 / 750 450 / 450 Balance 560 / 560 -330 / -330 -450 / -450 Lab / Micro Data Result Diagrams: 03/18/22 05:19 03/11/22 05:19 Micro: Microbiology 02/13/22 09:40 Stool C. difficile GDH Antigen & Toxins - Final 02/13/22 09:40 Stool C. difficile DNA Amplification - Final 02/07/22 00:20 Blood Culture (Wb) - Anticubital Left Blood Culture - Final No growth in 5 days. 02/07/22 00:20 Blood Culture (Wb) - Anticubital Left Blood Culture - Final No growth in 5 days. 02/09/22 13:10 Nasal Secretion SARS-CoV-2 Antigen (Rapid) - Final 02/07/22 00:10 Urine Catheter - Catheter Urine Culture - Final Klebsiella pneumoniae sp pneum Physical Exam Skin Wound Narrative: Left foot/ankle/leg: Dry stable superficial scab to posterior heel with no evidence of infection, multiple chronic lower extremity ulcerations about leg - there are skin islands with continued epithelialization of the wound. The wounds are down to superficial subcutaneous tissue - there is some superficial sloughing skin, otherwise ulceration bases are granular and healthy appearing. There is no erythema, purulence, or proximal streaking noted. There is no bogginess or palpable fluctuance appreciated. Assessment & Plan Assessment/Plan (1) Venous insufficiency: (2) Delayed wound healing: (3) Ulcer of left lower extremity with fat layer exposed: (4) Closed fracture of left fibula and tibia: (5) Laceration of left leg: (6) Dry skin dermatitis: (7) Post-polio syndrome: (8) Chronic pain: QUALIFIERS: Chronic pain type: other chronic pain Qualified Code(s): G89.29 - Other chronic pain (9) Localized edema: (10) Osteoporosis: PLAN: Patient seen and evaluated. Case was discussed. Left leg ulcerations re-evaluated. She was reassured no local signs of infection are noted and her leg appears stable. Continue with local wound care: Clean with Dakin's soln /soap and water, and cover wounds with adaptic only over the open wound site and adjacent healthy skin, 4x4s, Kerlix, KerraMax super absorption dressing, well padded posterior splint with heel offloaded. Change dressing MWF. She was permitted to allow a break from the dressing and splint for 1 to 2 hours this morning per her request. To continue offloading and fracture protection with splint use. She will be following up with orthopedics for fracture management. She has an anticipated additional 5 weeks of immobilization with a splint Per medical record review. It is also noted she has a history of C. difficile and is on antibiotic taper under the management of infectious disease who is also been following her. She will follow up in wound care center upon discharge. The podiatry team will continue to follow her weekly while in the house. Please do not hesitate to call if you have any questions. Abby Cooper DPM, [facility] [phone]
[2022-03-27 08:45] VITALS: BP 114/54; PULSE 91
[2022-03-27] MEDS: Metoprolol Tartrate 50 MG Tablet PO (08:45)
[2022-03-27] MEDS: Arthritis Pain Compound 60 CLICK TUBE TOPICAL ×2 (08:45→22:39)
[2022-03-27] MEDS: Potassium Chloride Oral Tablet 20 MEQ PO (08:45)
[2022-03-27] MEDS: Pentoxifylline 400 MG Tablet PO (08:46)
[2022-03-27] MEDS: Clopidogrel Bisulfate 75 MG Tablet PO (08:46)
[2022-03-27] MEDS: Iron Polysaccharide Complex 150 MG CAPSULE PO (11:27)
[2022-03-27] MEDS: Juven (unflavored) Packet 1 PACKET PO ×2 (11:27→16:31)
--- NOTE | 2022-03-27 14:55 | PCM.PN.ID ---
Physical Exam Narrative Diarrhea improved, no fever, no abd pain Const alert and no apparent distress General Appearance: cooperative Resp normal air movement and clear to auscultation bilaterally Cardio regular rate and regular rhythm GI soft to palpation, non-tender and non-distended Skin no rashes or lesions noted ID ID: Route of nutrition/ use of supplements: [] Nutritional Intake: [] IV Site: [] [place] Catheter: [] Assessment & Plan Assessment/Plan (1) Recurrent Clostridioides difficile diarrhea: PLAN: Diarrhea increased while nearing end of taper. Sx now improved after increase vanc to 125mg bid. Will restart slower tape, consider dificid if she does not continue to improve. Will follow. D/w nursing
[2022-03-27 16:00] VITALS: BP 149/58; PULSE 108; RESP 16; TEMP 36.7; O2SAT 96
--- NOTE | 2022-03-27 17:46 | NURSING ---
NOTIFIED R' AND R' DAUGHTER MARITO OF STAFF MEMBER TESTING FOR COVID AND R' ON UNIT.
[2022-03-27] MEDS: Atorvastatin Calcium 20 MG Tablet PO (22:35)
[2022-03-27 22:36] VITALS: BP 113/65; PULSE 135
[2022-03-27] MEDS: Metoprolol Tartrate 100 MG Tablet PO (22:36)
[2022-03-27] MEDS: Doxepin Hydrochloride 10 MG Capsule PO (22:37)
[2022-03-27] MEDS: Acetaminophen 500 MG Tablet 1000 MG PO (22:40)
[2022-03-28 01:23] VITALS: PULSE 80
[2022-03-28] MEDS: Iron Polysaccharide Complex 150 MG CAPSULE PO (06:38)
[2022-03-28] MEDS: Levothyroxine 137 MCG Tablet PO (06:43)
[2022-03-28] MEDS: Menthol/Lanolin/Calamine/Znox 113 GM Tube 1 APPLIC TOPICAL ×2 (06:44→22:06)
[2022-03-28] MEDS: Nystatin Powder 15gm Bottle 1 APPLIC TOPICAL ×2 (06:44→17:48)
[2022-03-28] MEDS: Vancomycin 125 MG/5 ML Susp PO.SYRINGE PO ×2 (06:47→17:48)
[2022-03-28 08:44] VITALS: BP 104/60; PULSE 95
[2022-03-28] MEDS: Arthritis Pain Compound 60 CLICK TUBE TOPICAL ×2 (08:44→22:05)
[2022-03-28] MEDS: Pentoxifylline 400 MG Tablet PO (08:44)
[2022-03-28] MEDS: Lisinopril 10 MG Tablet PO (08:44)
[2022-03-28] MEDS: Clopidogrel Bisulfate 75 MG Tablet PO (08:44)
[2022-03-28] MEDS: Potassium Chloride Oral Tablet 20 MEQ PO (08:44)
[2022-03-28] MEDS: Metoprolol Tartrate 50 MG Tablet PO (08:44)
[2022-03-28] MEDS: Juven (unflavored) Packet 1 PACKET PO ×2 (11:34→17:48)
[2022-03-28 15:31] VITALS: BP 104/60; PULSE 95; RESP 14; TEMP 36.6; O2SAT 92
[2022-03-28] MEDS: Acetaminophen 500 MG Tablet 1000 MG PO (22:03)
[2022-03-28] MEDS: Atorvastatin Calcium 20 MG Tablet PO (22:04)
[2022-03-28] MEDS: Doxepin Hydrochloride 10 MG Capsule PO (22:04)
[2022-03-28 22:05] VITALS: BP 105/57; PULSE 113; O2SAT 95
[2022-03-28] MEDS: Metoprolol Tartrate 100 MG Tablet PO (22:05)
[2022-03-29] MEDS: Iron Polysaccharide Complex 150 MG CAPSULE PO (06:25)
[2022-03-29] MEDS: Vancomycin 125 MG/5 ML Susp PO.SYRINGE PO ×2 (06:25→17:15)
[2022-03-29] MEDS: Levothyroxine 137 MCG Tablet PO (06:25)
[2022-03-29] MEDS: Menthol/Lanolin/Calamine/Znox 113 GM Tube 1 APPLIC TOPICAL ×2 (06:27→22:53)
[2022-03-29] MEDS: Nystatin Powder 15gm Bottle 1 APPLIC TOPICAL ×2 (06:27→17:13)
[2022-03-29] MEDS: Potassium Chloride Oral Tablet 20 MEQ PO (07:45)
[2022-03-29] MEDS: Clopidogrel Bisulfate 75 MG Tablet PO (07:45)
[2022-03-29] MEDS: Pentoxifylline 400 MG Tablet PO (07:46)
[2022-03-29] MEDS: Arthritis Pain Compound 60 CLICK TUBE TOPICAL ×2 (07:46→22:51)
[2022-03-29 07:49] VITALS: BP 111/45; PULSE 87
[2022-03-29] MEDS: Metoprolol Tartrate 50 MG Tablet PO (07:49)
[2022-03-29] MEDS: Juven (unflavored) Packet 1 PACKET PO (12:09)
[2022-03-29 14:40] VITALS: BP 114/85; PULSE 103; RESP 12; TEMP 36.2; O2SAT 94
[2022-03-29] MEDS: Acetaminophen 500 MG Tablet 1000 MG PO (22:49)
[2022-03-29 22:52] VITALS: BP 109/48; PULSE 116
[2022-03-29] MEDS: Atorvastatin Calcium 20 MG Tablet PO (22:52)
[2022-03-29] MEDS: Doxepin Hydrochloride 10 MG Capsule PO (22:53)
[2022-03-30 05:37] LABS: Absolute Lymphocyte Count 3.27 X10^3/uL (0.83-4.51); Basophil# 0.06 X10^3/uL; Basophil% 0.6 % (0-1); Eosinophil# 0.51 X10^3/uL; Eosinophils% 5.2 % (0-5); Hematocrit 28.5 % (37-47); Lymphocyte # 3.27 X10^3/ul (0.83-4.51); Lymphocyte % 33.5 % (19-41); Mean Corp Hgb Conc 31.6 g/dL (32-36); Mean Corpuscular Hgb 28.5 pg (27.0-32.0); Mean Corpuscular Volume 90.2 fL (81-99); Mean Platelet Vol. 8.1 fl (6.2-12.0); Monocyte# 0.84 X10^3/uL; Monocyte% 8.6 % (0-10); NRBC Flagged by Analyzer 0 % (0-5); Neutrophil # 5.02 X10^3/uL (2.7-7.7); Neutrophil % 51.4 % (47-70); Platelet Count 413 K/mm3 (150-450); RBC Distribution Width CV 15.4 % (11.6-14.6); RBC Distribution Width SD 50.8 fl (35.1-43.9); Red Blood Count 3.16 M/mm3 (4.2-5.4); White Blood Count 9.8 K/mm3 (4.4-11.0)
[2022-03-30] MEDS: Nystatin Powder 15gm Bottle 1 APPLIC TOPICAL ×2 (05:44→16:52)
[2022-03-30] MEDS: Vancomycin 125 MG/5 ML Susp PO.SYRINGE PO ×2 (05:44→16:51)
[2022-03-30] MEDS: Menthol/Lanolin/Calamine/Znox 113 GM Tube 1 APPLIC TOPICAL ×2 (05:44→22:42)
[2022-03-30] MEDS: Levothyroxine 137 MCG Tablet PO (05:45)
[2022-03-30] MEDS: Iron Polysaccharide Complex 150 MG CAPSULE PO (05:45)
[2022-03-30 05:58] LABS: Anion Gap 4 (5-15); BUN 56 mg/dL (7-18); BUN/Creat Ratio 53.8 RATIO (10-20); Calcium,Total 9.1 mg/dL (8.5-10.1); Chloride 105 mmol/L (98-107); Creatinine, Serum 1.04 mg/dL (0.55-1.02); EST Glomerular Filtration Rate 55 mL/min (>60); Est Glom Filt Rate - Afr Amer 67 mL/min (>60); Estimated Creatinine Clearance 39.67 ml/min; Glucose 97 mg/dL (74-106); Potassium 4.5 mmol/L (3.5-5.1); Sodium Level 135 mmol/L (136-145)
[2022-03-30] MEDS: Arthritis Pain Compound 60 CLICK TUBE TOPICAL ×3 (08:46→22:43)
[2022-03-30 08:47] VITALS: BP 117/90; PULSE 115
[2022-03-30] MEDS: Pentoxifylline 400 MG Tablet PO (08:47)
[2022-03-30] MEDS: Lisinopril 10 MG Tablet PO (08:47)
[2022-03-30] MEDS: Metoprolol Tartrate 50 MG Tablet PO (08:47)
[2022-03-30] MEDS: Potassium Chloride Oral Tablet 20 MEQ PO (08:47)
[2022-03-30] MEDS: Clopidogrel Bisulfate 75 MG Tablet PO (08:48)
[2022-03-30] MEDS: Juven (unflavored) Packet 1 PACKET PO ×2 (12:09→16:53)
--- NOTE | 2022-03-30 13:06 | PCM.PN.ID ---
Physical Exam Narrative Diarrhea improved today. Went 2-4 times yesterday. No fever, no abd pain. Const alert and no apparent distress General Appearance: cooperative Resp normal air movement and clear to auscultation bilaterally Cardio regular rate and regular rhythm GI soft to palpation, non-tender and non-distended Skin no rashes or lesions noted ID ID: Route of nutrition/ use of supplements: [] Nutritional Intake: [] IV Site: [] [place] Catheter: [] Assessment & Plan Assessment/Plan (1) Recurrent Clostridioides difficile diarrhea: PLAN: Diarrhea increased while nearing end of taper. Sx now improved after increase vanc to 125mg bid. Restarted slower taper, consider dificid if she does not continue to improve. Diarrhea better today. Will follow
[2022-03-30 15:22] VITALS: BP 117/90; PULSE 115; RESP 14; TEMP 36.8; O2SAT 93
--- NOTE | 2022-03-30 19:27 | PN.TCU_ITS ---
Subjective Subjective Resident seen, examined for regulatory visit. She has no new problems, concerns, issues, complaints. She is in good spirits, her sister is visiting today. Objective Data Objective Data Vital Signs: Vital Signs Temp Pulse Resp BP Pulse Ox 98.2 F 115 H 14 117/90 H 93 03/30/22 15:22 03/30/22 15:22 03/30/22 15:22 03/30/22 15:22 03/30/22 15:22 Oxygen Flow Rate (L/min) 3 Oxygen Delivery Method Room Air Weight: 52.163 kg Body Mass Index (BMI) 27.7 Intake & Output: Intake and Output for Last 24 Hours 03/28/22 03/29/22 03/30/22 23:59 23:59 23:59 Intake Total 420 / 420 240 / 240 600 / 600 Output Total 400 / 400 800 / 800 Balance 240 / 240 -200 / -200 Lab / Micro Data Result Diagrams: 03/30/22 05:17 03/30/22 05:17 Labs: Laboratory Results - last 24 hr 03/30/22 05:17: WBC 9.8, RBC 3.16 L, Hgb 9.0 L, Hct 28.5 L, MCV 90.2, MCH 28.5, MCHC 31.6 L, RDW Std Deviation 50.8 H, RDW Coeff of Naseem 15.4 H, Plt Count 413, MPV 8.1, Immature Gran % (Auto) 0.700, Neut % (Auto) 51.4, Lymph % (Auto) 33.5, [place] % (Auto) 8.6, Eos % (Auto) 5.2 H, Baso % (Auto) 0.6, Absolute Neuts (auto) 5.0, Absolute Lymphs (auto) 3.27, Nucleated RBC % 0 03/30/22 05:17: Sodium 135 L, Potassium 4.5, Chloride 105, Carbon Dioxide 26.0, Anion Gap 4 L, BUN 56 H, Creatinine 1.04 H, Estim Creat Clear Calc 39.67, Est GFR (MDRD) Af Amer 67, Est GFR (MDRD) Non-Af 55 L, BUN/Creatinine Ratio 53.8 H, Glucose 97, Calcium 9.1 Micro: Microbiology 03/30/22 11:29 Nasal Secretion SARS-CoV-2 Antigen (Rapid) - Final 03/27/22 19:50 Stool Enteric Bacteriology - Final 03/27/22 14:35 Nasal Secretion SARS-CoV-2 Antigen (Rapid) - Final 02/13/22 09:40 Stool C. difficile GDH Antigen & Toxins - Final 02/13/22 09:40 Stool C. difficile DNA Amplification - Final 02/07/22 00:20 Blood Culture (Wb) - Anticubital Left Blood Culture - Final No growth in 5 days. 02/07/22 00:20 Blood Culture (Wb) - Anticubital Left Blood Culture - Final No growth in 5 days. 02/09/22 13:10 Nasal Secretion SARS-CoV-2 Antigen (Rapid) - Final 02/07/22 00:10 Urine Catheter - Catheter Urine Culture - Final Klebsiella pneumoniae sp pneum Physical Exam Const alert General Appearance: cooperative HEENT normocephalic Eyes PERRL and EOMs intact bilaterally Neck supple, no JVD and no carotid bruits Resp normal respiratory effort, normal air movement and clear to auscultation bilaterally Cardio regular rate and regular rhythm GI normal to inspection, nondistended, normoactive bowel sounds, non-tender and no n-distended Extremity normal capillary refill Extremity Narrative: Left lower extremity dressing. General Extremity: Negative for edema Skin no rashes or lesions noted General Skin Exam: no breakdown Psych affect normal Appearance: appropriate Assessment & Plan Assessment/Plan (1) Debility: (2) Fall: (3) Contusion of right knee: (4) Closed fracture of left fibula and tibia: (5) Laceration of left leg: (6) Acute anemia: (7) Post-polio syndrome: (8) Hypothyroidism: (9) Hypertension: (10) Hyperlipidemia: (11) Insomnia: (12) Peripheral arterial occlusive disease: (13) Osteoporosis: PLAN: 71 year old female with below past medical history significant for polio, wheelchair bound, hospitalized for fall, left tib/fib fracture, right knee contusion, left lower extremity laceration, complicated by acute anemia requiring transfusion, admitted to TCU with debility, here for rehabilitation, strengthening, prior to discharge home alone. * Debility - PT/OT. * Pain - Tylenol 1000mg q6h prn pain (1-3), Oxycodone 5mg q4h prn pain (6-10), Arthritis pain 2 clicks topical q12h. * Bowel - no bowel regimen due to diarrhea from recurrent c. diff. * Adult immunization - Administer pneumonia vaccine, flu vaccine, covid19 vaccine as appropriate. * DVT prophylaxis - HAS-BLED score 3 high risk of bleeding, Narinder score 6 high risk of thromboembolism; due to anemia, already on plavix, trental, risk of bleeding out weigh risk of VTE, hold chemoprophylaxis. * Hyperlipidemia - Atorvastatin 20mg qhs. * Peripheral arterial occlusive disease - plavix 75mg daily, Trental 400mg daily. * Insomnia - Doxepin 10mg qhs. * Nutrition - Davion 1 packet bidcm. * Hypothyroidism - Levothyroxine 137mcg daily. * Hypertension - Metoprolol 50mg qam, 100mg qhs. * Shortness of breath - Duoneb 3ml [id number] prn. * Skin irritation - Calmoseptine topical bidcm. * Tinea Corporis - Nystatin powder topical bid. * Nausea - Zofran 4mg q6h prn. * Hypokalemia - KCL 20meq daily. * Recurrent c. diff colitis - Appreciate Dr. De La Cruz's help, Vancomycin 125mg bid. * Iron deficiency anemia - Ferrex 150mg daily. * Dehydration - Normal saline 75cc/hour, stop when she is eating well. Capacity Capacity Assessment Tool Can the patient make a choice & communicate that choice?: Yes Can the patient understand benefits, risks and alternatives?: Yes Can the patient make a logical, rational choice?: Yes Is the choice the patient makes consistent w/ their values?: Yes Is there an impending, emergent risk to the patient?: No Does the patient have an Advance Directive?: No Is there a Surrogate Available?: Yes i.e. HCPOA: Yes i.e. close relative (spouse, child, parent, sibling)?: Yes
[2022-03-30] MEDS: Acetaminophen 500 MG Tablet 1000 MG PO (22:35)
[2022-03-30] MEDS: Atorvastatin Calcium 20 MG Tablet PO (22:38)
[2022-03-30 22:39] VITALS: PULSE 101
[2022-03-30] MEDS: Doxepin Hydrochloride 10 MG Capsule PO (22:39)
[2022-03-30] MEDS: Metoprolol Tartrate 100 MG Tablet PO (22:39)
[2022-03-30 23:32] VITALS: PULSE 107; RESP 18; O2SAT 96
[2022-03-31] MEDS: Iron Polysaccharide Complex 150 MG CAPSULE PO (05:47)
[2022-03-31] MEDS: Levothyroxine 137 MCG Tablet PO (05:47)
[2022-03-31] MEDS: Vancomycin 125 MG/5 ML Susp PO.SYRINGE PO ×2 (05:50→18:14)
[2022-03-31] MEDS: Menthol/Lanolin/Calamine/Znox 113 GM Tube 1 APPLIC TOPICAL ×2 (05:52→22:37)
[2022-03-31] MEDS: Nystatin Powder 15gm Bottle 1 APPLIC TOPICAL ×2 (05:52→17:26)
[2022-03-31 08:58] VITALS: PULSE 84
[2022-03-31] MEDS: Metoprolol Tartrate 50 MG Tablet PO (08:58)
[2022-03-31] MEDS: Clopidogrel Bisulfate 75 MG Tablet PO (08:59)
[2022-03-31] MEDS: Potassium Chloride Oral Tablet 20 MEQ PO (08:59)
[2022-03-31] MEDS: Pentoxifylline 400 MG Tablet PO (08:59)
[2022-03-31] MEDS: Arthritis Pain Compound 60 CLICK TUBE TOPICAL ×3 (09:00→22:37)
--- NOTE | 2022-03-31 09:05 | CASEMGMT ---
Addendum entered by Candice Li 04/03/22 15:02: Followed up with [facility] - onsite was going to be scheduled for 04/13, but SW stated they cannot wait until day before DC to make a decision and requested onsite next week. They will contact this worker with that new date. Left another message with [facility]. SW to continue to follow. Addendum entered by Candice Li 04/02/22 12:57: [facility] would like to complete onsite. Recommended having dtr be apart of that. [facility] to schedule with pt/dtr. Left message following up with [facility]. Will continue to follow. Addendum entered by Candice Li 03/31/22 09:40: Received return phone call from dtr. Dtr requesting referrals to [facility] and [facility] in [place]. Referrals made. Original Note: Social Work Left message with dtr to f/u on DC plans. DANA PatelW
[2022-03-31] MEDS: Juven (unflavored) Packet 1 PACKET PO ×2 (12:48→17:25)
[2022-03-31 14:28] VITALS: BP 108/46; PULSE 94; RESP 14; TEMP 36.9; O2SAT 98
--- NOTE | 2022-03-31 15:35 | NURSING ---
Per Angela Appiah, pt's daughter can change dressing to leg as long as a nurse is present.
[2022-03-31] MEDS: Atorvastatin Calcium 20 MG Tablet PO (22:34)
[2022-03-31] MEDS: Doxepin Hydrochloride 10 MG Capsule PO (22:34)
[2022-03-31 22:37] VITALS: BP 113/45; PULSE 118
[2022-03-31] MEDS: Metoprolol Tartrate 100 MG Tablet PO (22:37)
[2022-04-01] MEDS: Nystatin Powder 15gm Bottle 1 APPLIC TOPICAL ×2 (06:48→22:41)
[2022-04-01] MEDS: Menthol/Lanolin/Calamine/Znox 113 GM Tube 1 APPLIC TOPICAL ×2 (06:48→22:42)
[2022-04-01] MEDS: Levothyroxine 137 MCG Tablet PO (06:49)
[2022-04-01] MEDS: Iron Polysaccharide Complex 150 MG CAPSULE PO (06:49)
[2022-04-01] MEDS: Vancomycin 125 MG/5 ML Susp PO.SYRINGE PO ×2 (06:49→17:24)
[2022-04-01 08:34] VITALS: BP 110/51; PULSE 103
[2022-04-01] MEDS: Potassium Chloride Oral Tablet 20 MEQ PO (08:34)
[2022-04-01] MEDS: Clopidogrel Bisulfate 75 MG Tablet PO (08:34)
[2022-04-01] MEDS: Metoprolol Tartrate 50 MG Tablet PO (08:34)
[2022-04-01] MEDS: Pentoxifylline 400 MG Tablet PO (08:35)
[2022-04-01] MEDS: Acetaminophen 500 MG Tablet 1000 MG PO ×2 (11:17→22:44)
[2022-04-01] MEDS: Arthritis Pain Compound 60 CLICK TUBE TOPICAL ×2 (11:20→22:42)
--- NOTE | 2022-04-01 11:27 | NURSING ---
Dressing changed done by Liliane Santamaria RN and I. Mild odor noted to wound and some yellow slough noted to some areas of the wound. Dakins solution used to cleanse wound then adaptic and dry dressing placed. Resident involved in care of wounds.
[2022-04-01] MEDS: Juven (unflavored) Packet 1 PACKET PO ×2 (12:36→17:22)
--- NOTE | 2022-04-01 12:37 | NURSING ---
Resident made aware that TCU staff member tested positive for COVID. She is talking on the phone with a family member and stated she will let her know as well.
[2022-04-01 22:30] VITALS: PULSE 115; RESP 16; O2SAT 97
[2022-04-01 22:33] VITALS: BP 103/65; PULSE 115
[2022-04-01 22:43] VITALS: PULSE 115
[2022-04-01] MEDS: Atorvastatin Calcium 20 MG Tablet PO (22:43)
[2022-04-01] MEDS: Metoprolol Tartrate 100 MG Tablet PO (22:43)
[2022-04-01] MEDS: Doxepin Hydrochloride 10 MG Capsule PO (22:44)
[2022-04-02] MEDS: Levothyroxine 137 MCG Tablet PO (07:00)
[2022-04-02] MEDS: Iron Polysaccharide Complex 150 MG CAPSULE PO (07:00)
[2022-04-02] MEDS: Menthol/Lanolin/Calamine/Znox 113 GM Tube 1 APPLIC TOPICAL ×2 (07:01→21:37)
[2022-04-02] MEDS: Nystatin Powder 15gm Bottle 1 APPLIC TOPICAL ×2 (07:01→18:09)
[2022-04-02] MEDS: Vancomycin 125 MG/5 ML Susp PO.SYRINGE PO ×2 (07:05→18:11)
[2022-04-02 08:23] VITALS: PULSE 86
[2022-04-02] MEDS: Clopidogrel Bisulfate 75 MG Tablet PO (08:23)
[2022-04-02] MEDS: Metoprolol Tartrate 50 MG Tablet PO (08:23)
[2022-04-02] MEDS: Pentoxifylline 400 MG Tablet PO (08:23)
[2022-04-02] MEDS: Potassium Chloride Oral Tablet 20 MEQ PO (08:23)
[2022-04-02] MEDS: Arthritis Pain Compound 60 CLICK TUBE TOPICAL ×2 (08:24→21:37)
--- NOTE | 2022-04-02 09:16 | PCM.PN.RX ---
Progress Note - Pharmacy Subjective: TCU May Note. 71 YOF admitted to the hospital for fall, left tib/fib fracture, LLE laceration. Admitted to TCU with debility here for rehabilitation and strengthening. Objective: Allergies naproxen [From Naprosyn] Allergy (Verified 02/01/22 15:05) Rash Penicillins [PCN] Allergy (Verified 02/01/22 15:05) Rash amoxicillin Adverse Reaction (Verified 02/01/22 15:05) Rash cephalexin [From Keflex] Adverse Reaction (Verified 02/01/22 15:05) Rash clotrimazole [From Lotrimin] Adverse Reaction (Verified 02/01/22 15:05) Rash diphenhydramine [From Benadryl] Adverse Reaction (Verified 02/01/22 15:05) Rash griseofulvin Adverse Reaction (Verified 02/01/22 15:05) Rash ibuprofen [From Motrin] Adverse Reaction (Verified 02/01/22 15:05) Rash miconazole [From Monistat 1 Combo Pack] Adverse Reaction (Verified 02/01/22 15:05) Rash propranolol [From Inderal LA] Adverse Reaction (Verified 02/01/22 15:05) Rash rofecoxib [From Vioxx] Adverse Reaction (Verified 02/01/22 15:05) Rash Sulfa (Sulfonamide Antibiotics) Adverse Reaction (Verified 02/01/22 15:05) Rash Current Medications Generic Name Dose Route Start Last Admin Trade Name Freq PRN Reason Stop Dose Admin Acetaminophen 1,000 mg 02/04/22 07:55 04/01/22 22:44 Acetaminophen 500 Mg Tablet PO 1,000 mg Q6H PRN PRN Administration Pain Score 1-3 Albuterol/Ipratropium 3 ml 02/16/22 17:07 03/05/22 18:20 Ipratropium/Albuterol Sulfate 3 Ml Ampul.Neb INHALATION 3 ml Q6HWA.RT PRN Administration SHORTNESS OF BREATH Atorvastatin Calcium 20 mg 02/03/22 22:00 04/01/22 22:43 Atorvastatin Calcium 20 Mg Tablet PO 20 mg QHS NEIL Administration Calamine/Phenol 1 applic 02/15/22 22:00 04/02/22 07:01 Menthol/Lanolin/Calamine/Znox 113 Gm Tube TOPICAL 1 applic BID@0600,2200 NEIL Administration Protocol Clopidogrel Bisulfate 75 mg 02/05/22 08:00 04/02/22 08:23 Clopidogrel Bisulfate 75 Mg Tablet PO 75 mg DAILYCM [facility] Administration Compound Med 0 click 03/12/22 21:00 04/02/22 08:24 Arthritis Pain Compound 60 Click Tube TOPICAL 1 click Q12H [facility] Administration Protocol Doxepin HCl 10 mg 02/03/22 22:00 04/01/22 22:44 Doxepin Hydrochloride 10 Mg Capsule PO 10 mg QHS [facility] Administration L-Arginine/L-Glutamine/Calcium HMB 1 packet 03/27/22 12:00 04/01/22 17:22 Davion (Unflavored) Packet PO 1 packet 1200,1700 [facility] Administration Levothyroxine Sodium 137 mcg 02/11/22 06:00 04/02/22 07:00 Levothyroxine 137 Mcg Tablet PO 137 mcg DAILY@0600 [facility] Administration Metoprolol Tartrate 50 mg 02/04/22 08:00 04/02/22 08:23 Metoprolol Tartrate 50 Mg Tablet PO 50 mg BREAKFAST [facility] Administration Metoprolol Tartrate 100 mg 02/03/22 22:00 04/01/22 22:43 Metoprolol Tartrate 100 Mg Tablet PO 100 mg QHS [facility] Administration Nystatin 1 applic 02/16/22 13:20 04/02/22 07:01 Nystatin Powder 15gm Bottle TOPICAL 1 applic BID [facility] Administration Protocol Ondansetron HCl 4 mg 02/08/22 12:31 03/17/22 11:00 Ondansetron Odt 4 Mg Tablet PO 4 mg Q6H PRN PRN Administration NAUSEA/VOMITING Oxycodone HCl 5 mg 02/05/22 16:39 02/05/22 21:20 Oxycodone 5 Mg Tablet PO 5 mg Q4H PRN PRN Administration Pain Score 6-10 Pentoxifylline 400 mg 02/04/22 08:00 04/02/22 08:23 [facility]ine 400 Mg [facility] Polysaccharide Iron Complex 150 mg 03/12/22 08:00 04/02/22 07:00 Iron Polysaccharide Complex 150 Mg Capsule PO 150 mg DAILY [facility] Administration Potassium Chloride 20 meq 02/19/22 08:00 04/02/22 08:23 Potassium Chloride Oral Tablet 20 M[facility] Administration Sodium Chloride 10 - 40 ml 02/03/22 21:06 03/07/22 21:58 0.9% Saline Lock 10 Ml Syringe IV 10 ml UD PRN Administration SALINE FLUSH Sodium Hypochlorite 1 applic 03/16/22 11:20 Dakin's Khushi Half Strength (=0.25%) TOPICAL X1 PRN [facility] Protocol Tramadol HCl 50 mg 02/04/22 07:54 02/23/22 22:55 Tramadol 50 Mg Tablet PO 50 mg Q6H PRN PRN Administration Pain Score 4-5 Vancomycin HCl 125 mg 03/25/22 18:00 04/02/22 07:05 Vancomycin 125 Mg/5 Ml Susp Po.Syringe PO 125 mg BID NEIL Administration Problem List (Last Reviewed 02/16/22 @ 14:[address] Pola De La Cruz MD) Recurrent Clostridioides difficile diarrhea (Acute) Ulcer of left lower extremity with fat layer exposed (Chronic) Closed fracture of left fibula and tibia (Acute) Laceration of left leg (Acute) Osteoporosis (Acute) Delayed wound healing (Chronic) Post-polio syndrome (Chronic) Venous insufficiency (Chronic) Chronic pain (Chronic) Peripheral arterial occlusive disease (Acute) Insomnia (Acute) Hyperlipidemia (Acute) Hypertension (Chronic) Hypothyroidism (Acute) Acute anemia (Acute) Fall (Acute) Debility (Acute) Contusion of right knee (Acute) Vital Signs Temp Pulse Resp BP Pulse Ox 98.4 F 86 16 103/65 97 03/31/22 14:28 04/02/22 08:23 04/01/22 22:30 04/01/22 22:33 04/01/22 22:30 Oxygen Flow Rate (L/min) 3 Oxygen Delivery Method Room Air Weight: 52.22 kg Body Mass Index (BMI) 27.7 Sodium 135 mmol/L (136-145) L 03/30/22 05:17 Potassium 4.5 mmol/L (3.5-5.1) 03/30/22 05:17 Chloride 105 mmol/L (98-107) 03/30/22 05:17 Carbon Dioxide 26.0 mmol/L (21.0-32.0) 03/30/22 05:17 Anion Gap 4 (5-15) L 03/30/22 05:17 BUN 56 mg/dL (7-18) H 03/30/22 05:17 Creatinine 1.04 mg/dL (0.55-1.02) H 03/30/22 05:17 Est GFR (MDRD) Af Amer 67 mL/min (>60) 03/30/22 05:17 Est GFR (MDRD) Non-Af 55 mL/min (>60) L 03/30/22 05:17 BUN/Creatinine Ratio 53.8 RATIO (10-20) H 03/30/22 05:17 Glucose 97 mg/dL (74-106) 03/30/22 05:17 Assessment/Plan: 1. Hypertension: metoprolol tartrate 50mg PO BREAKFAST and 100mg PO QHS. Please continue to monitor BP (last 103/65) and HR (last 86). 2. Hyperlipidemia: atorvastatin 20mg PO QHS. Of note; the resident does not have any lipid panels on file in [facility]. Please continue to monitor for muscle pain. 3. PAD: clopidogrel 75mg PO daily and Trental 400mg PO Daily. Please continue to monitor. Podiatry following. Please continue to monitor for S/S bleeding. 4. Hypothyroidism: levothyroxine 137mcg PO daily. Please continue to monitor thyroid function tests as clinically indicated, monitor for S/S hypothyroidism. Last TSH 03/2021. 5. Recurrent C diff colitis: vancomycin suspension 125mg/5mL PO BID. Please continue to monitor. Dr. De La Cruz on consult. Patient has had bowel movements the past 2 days. 6. Hypokalemia: potassium chloride 20mEq PO DAILYCM. Please continue to monitor potassium levels (last 4.5mmol/L). 7. Nausea: ondansetron 4mg PO Q6H PRN nausea/vomiting. Please continue to monitor for nausea and PRN usage. Last dose given 03/17/22. 8. Iron deficiency anemia: Ferrex 150mg PO DAILYCM. Please continue to monitor hemoglobin (last 9g/dL), constipation and dark stools. Psychotropic Medications: 1. Insomnia: doxepin 10mg PO QHS. This is a [employer] medication and can increase risk of anticholinergic effects as well as orthostatic hypotension. Please continue to monitor. Medication Irregularities: *1. Pain: acetaminophen 1000mg PO Q6H PRN Pain 1-3, tramadol 50mg PO Q6H PRN Pain 4-5, oxycodone 5mg PO Q4H PRN Pain 6-10 and Arthritis Pain compound 2 clicks topically right knee BID. Please continue to monitor patient for S/S increased/decreased pain, oversedation, renal function (last CrCl =32.3mL/min), PRN medication usage. Over the past week resident has been reporting pain scores between 4-10/10 and requesting less intense pain medication. Resident has receiving about 1 dose of acetaminophen per day for the past week. Patient has not used oxycodone since 02/05/22 or tramadol since 02/23/22. Please consider stopping these medications since resident does not want to use them and changing pain score for acetaminophen to 1-10. *2. Shortness of breath: ipratropium/albuterol 3mL inhalation Q6HWA.RT PRN SOB. Please continue to monitor for SOB and PRN usage. Resident has not needed a dose since 03/05/22. Please consider stopping medication if clinically appropriate. Thanks. Bowel Regimen: None, recurrent diarrhea from C. diff. Date of Note:: 04/02/22
[2022-04-02] MEDS: Juven (unflavored) Packet 1 PACKET PO (11:30)
[2022-04-02 15:21] VITALS: BP 106/60; PULSE 68; RESP 18; TEMP 37.1; O2SAT 97
--- NOTE | 2022-04-02 19:16 | PCM.DC.SUM ---
Providers Date of Admission: 02/03/22 Primary Care Physician: Dr. Boo Cotton MD Consultations 02/03/22 19:22 Consult: Onc/Wound/quality control lead Routine Comment: Reason for Consult:: chronic wounds to right leg 02/04/22 14:43 Consult: Podiatry Routine Consulting Provider: Abby Cooper Reason for Consult: LLE WOUNDS EMERGENT Consult: No MD Notified: Yes Date Notified: 02/04/22 Time Notified: 14:44 Method of Notification: Verbal Comments:: SPOKE WITH ALEXANDER ON PHONE 02/13/22 13:53 Consult: Infectious Disease Routine Consulting Provider: Pola De La Cruz Reason for Consult: C-Diff EMERGENT Consult: No MD Notified: Yes Date Notified: 02/16/22 Time Notified: 10:33 Method of Notification: Answering Service Comments:: Spoke with Sintia Reason For Visit: LEFT TIB/FIB FX Diagnosis Discharge Diagnosis (1) Debility: Status: Acute Code(s): R53.81 - Other malaise (2) Fall: Status: Acute Code(s): W19.XXXA - Unspecified fall, initial encounter (3) Contusion of right knee: Status: Acute Code(s): S80.01XA - Contusion of right knee, initial encounter (4) Closed fracture of left fibula and tibia: Status: Acute Code(s): S82.202A - Unspecified fracture of shaft of left tibia, initial encounter for closed fracture; S82.402A - Unspecified fracture of shaft of left fibula, initial encounter for closed fracture (5) Laceration of left leg: Status: Acute Code(s): S81.812A - Laceration without foreign body, left lower leg, initial encounter (6) Acute anemia: Status: Acute Code(s): D64.9 - Anemia, unspecified (7) Post-polio syndrome: Status: Chronic Code(s): G14 - Postpolio syndrome (8) Hypothyroidism: Status: Acute Code(s): E03.9 - Hypothyroidism, unspecified (9) Hypertension: Status: Chronic Code(s): I10 - Essential (primary) hypertension (10) Hyperlipidemia: Status: Acute Code(s): E78.5 - Hyperlipidemia, unspecified (11) Insomnia: Status: Acute Code(s): G47.00 - Insomnia, unspecified (12) Peripheral arterial occlusive disease: Status: Acute Code(s): I77.9 - Disorder of arteries and arterioles, unspecified (13) Osteoporosis: Status: Acute Code(s): M81.0 - Age-related osteoporosis without current pathological fracture Medications at Discharge Home Medications levothyroxine 137 mcg PO DAILY 11/28/19 metoprolol tartrate 50 mg PO BREAKFAST 03/26/20 metoprolol tartrate 100 mg PO QHS 03/26/20 clopidogrel [Plavix] 75 mg PO DAILY 03/16/21 doxepin 10 mg PO QHS 02/01/22 pentoxifylline 400 mg PO DAILY 02/01/22 Davion (with collagen) 1 packet PO BIDCM 02/03/22 atorvastatin 20 mg PO QHS 02/03/22 acetaminophen 1,000 mg PO Q6H PRN PRN #0 tab 04/02/22 menthol-zinc oxide [Calmoseptine] 1 applic TOPICAL BID@0600,2200 #0 g 04/02/22 nystatin [Nyamyc] 1 applic TOPICAL BID #0 g 04/02/22 polysaccharide iron complex [Ferrex 150] 150 mg PO DAILY #0 cap 04/02/22 potassium chloride [Klor-Con M20] 20 meq PO DAILYCM #0 tab 04/02/22 vancomycin [Firvanq] 125 mg PO BID #0 ml 04/02/22 Hospital Course Operations None Procedures None Summary of Care Provided Minutes Spent on Discharge: 35 Hospital Course: 71 year old female with below past medical history significant for polio, wheelchair bound, hospitalized for fall, left tib/fib fracture, right knee contusion, left lower extremity laceration, complicated by acute anemia requiring transfusion, admitted to TCU with debility, here for rehabilitation, strengthening, prior to discharge home alone. 02/02/2022 Hemoglobin 6.9, transfused 2 units PRBC. 02/07/2022 Urine culture grew Klebsiella Pneumoniae, treated with Cipro. 02/11/2022 Hemoglobin 6.7, transfused 2 units PRBC. 02/13/2022 Stool positive C. diff, patient has history of recurrent C. Diff, Dr. De La Cruz consulted, treated with Vancomycin. Recommend continuing Vancomycin 125mg po bid indefinitely unless adjusted by Dr. De La Cruz. Discharge to nonskilled nursing facility 04/14/2022, possibly [facility]. Physical Exam Const alert General Appearance: cooperative HEENT normocephalic Eyes PERRL and EOMs intact bilaterally Neck supple, no JVD and no carotid bruits Resp normal respiratory effort, normal air movement and clear to auscultation bilaterally Cardio regular rate and regular rhythm GI normal to inspection, nondistended, normoactive bowel sounds, non-tender and non-distended Extremity normal capillary refill Extremity Narrative: Left lower extremity dressing. General Extremity: Negative for edema Skin no rashes or lesions noted General Skin Exam: no breakdown Psych affect normal Appearance: appropriate Weight / BMI Weight Weight: 52.22 kg Body Mass Index (BMI) 27.7 ABG / Lab / Microbiology Data Result Diagrams: 03/30/22 05:17 03/30/22 05:17 Microbiology: Microbiology 03/30/22 11:29 Nasal Secretion SARS-CoV-2 Antigen (Rapid) - Final 03/27/22 19:50 Stool Enteric Bacteriology - Final 03/27/22 14:35 Nasal Secretion SARS-CoV-2 Antigen (Rapid) - Final 02/13/22 09:40 Stool C. difficile GDH Antigen & Toxins - Final 02/13/22 09:40 Stool C. difficile DNA Amplification - Final 02/07/22 00:20 Blood Culture (Wb) - Anticubital Left Blood Culture - Final No growth in 5 days. 02/07/22 00:20 Blood Culture (Wb) - Anticubital Left Blood Culture - Final No growth in 5 days. 02/09/22 13:10 Nasal Secretion SARS-CoV-2 Antigen (Rapid) - Final 02/07/22 00:10 Urine Catheter - Catheter Urine Culture - Final Klebsiella pneumoniae sp pneum D/C Instructions Discharge Diet: No restrictions Discharge Activity: Return to Normal Activity Weight Bearing Status: No weight bearing (Left lower extremity.) Call your doctor if you observe: Fever of 101 or Higher, Inability to urinate, Inability to have a bowel movement, Shortness of breath, Dizziness, Fainting spells, Swelling in the ankles, Chest pain and Uncontrolled pain Additional Instructions: Discharge to nonskilled nursing facility 04/14/2022, possibly [facility]. Please Follow Up With: Sai Ye MD When: As scheduled. Meaningful Use Info Meaningful Use Diagnoses (Choose all that apply): None applicable Discharge Plan Admission Admit Date/Time: 02/03/22 18:10 Primary Reason for Your Visit: Debility. Attending Provider: Dustin Sandoval Chi Primary Care Provider: Boo Cotton Consulting Providers: Abby Cooper ; Pola De La Cruz Instructions Additional Instructions / Restrictions: Change left leg dressing every 3 days and wash with soap and water. Change the dressing with Adaptic, 4 x 4 gauze, abdominal pads, Kerlix. Continue splint per orthopedic recommendations and secured with Candelario wrap. Offload limb by avoiding direct pressure to the heel and ulcer sites of the left lower extremity. Discharge to nonskilled nursing facility 04/14/2022, possibly [facility]. Discharge Orders/Prescriptions Prescriptions: New acetaminophen 500 mg Tablet 1,000 mg PO Q6H PRN PRN (Reason: Pain Score 1-3) Qty: 0 RF: 0 polysaccharide iron complex [Ferrex 150] 150 mg iron Capsule 150 mg PO DAILY Qty: 0 RF: 0 menthol-zinc oxide [Calmoseptine] 0.44-20.6 % Ointment 1 applic topical BID@0600,2200 Qty: 0 RF: 0 nystatin [Nyamyc] 100,000 unit/gram Powder 1 applic topical BID Qty: 0 RF: 0 potassium chloride [Klor-Con M20] 20 mEq Tablet,Er Particles/Crystals 20 meq PO DAILYCM Qty: 0 RF: 0 Firvanq 25 mg/mL Recon Soln 125 mg PO BID Qty: 0 RF: 0 Continued levothyroxine 137 MCG tablet 137 mcg PO DAILY RF: 0 metoprolol tartrate 100 MG tablet 100 mg PO QHS RF: 0 metoprolol tartrate 50 MG tablet 50 mg PO BREAKFAST RF: 0 clopidogrel [Plavix] 75 mg Tablet 75 mg PO DAILY RF: 0 doxepin 10 mg Capsule 10 mg PO QHS RF: 0 pentoxifylline 400 mg Tablet Extended Release 400 mg PO DAILY RF: 0 atorvastatin 20 mg tablet 20 mg PO QHS RF: 0 Davion (with collagen) 7-7-1.5 gram powder in packet 1 packet PO BIDCM RF: 0 Discontinued acidophilus-pectin, citrus 1 TABLET tablet 2 tab PO DAILY RF: 0 acetaminophen 325 MG tablet 650 mg PO Q6H PRN PRN (Reason: Pain Score 1-10/Temp > 100.7 F) RF: 0 Referrals / Follow Up: Boo Cotton MD [Primary Care Provider] - Abby Cooper DPM [STAFF PHYSICIAN] - In 1 Week (Follow-up at wound healing center and call [phone]) Disposition Disposition (needs filled in before D/C Order can be placed): NonSkilled NH/Intermed Care
--- NOTE | 2022-04-02 19:30 | TREXTCAR_ITS ---
Diet 02/03/22 19:14 Diet: Regular - General Food consistency:: Regular Liquid Consistency:: Regular/Thin Diet Comments: small portions; only milk w/ breakfast please Routine Orders/Code Status Routine Lab Work: CBC Code Status: Full Code Wound(s) left lower leg: Wound Type: scattered nonhealing wounds Dressing Change: ADAPTIC/dry gauze and ABDs left heel: Wound Type: healing deep tissue pressure injury Dressing Change: WELL PADDED DRESSING left elbow: Wound Type: redness, healing wound Dressing Change: padded to protect left upper buttock: Wound Type: combination of pressure/shear Dressing Change: applied a Mepilex dressing Coccyx: Wound Type: Pressure Injury Dressing Change: corrina applied Therapies Weight Bearing: Non weight bearing Extremity Affected:: Left Lower Problem/Diagnosis (1) Debility: Status: Acute (2) Fall: Status: Acute (3) Contusion of right knee: Status: Acute (4) Closed fracture of left fibula and tibia: Status: Acute (5) Laceration of left leg: Status: Acute (6) Acute anemia: Status: Acute (7) Post-polio syndrome: Status: Chronic (8) Hypothyroidism: Status: Acute (9) Hypertension: Status: Chronic (10) Hyperlipidemia: Status: Acute (11) Insomnia: Status: Acute (12) Peripheral arterial occlusive disease: Status: Acute (13) Osteoporosis: Status: Acute Allergies/Procedures Done in Hospital Allergies naproxen [From Naprosyn] Allergy (Verified 02/01/22 15:05) Rash Penicillins [PCN] Allergy (Verified 02/01/22 15:05) Rash amoxicillin Adverse Reaction (Verified 02/01/22 15:05) Rash cephalexin [From Keflex] Adverse Reaction (Verified 02/01/22 15:05) Rash clotrimazole [From Lotrimin] Adverse Reaction (Verified 02/01/22 15:05) Rash diphenhydramine [From Benadryl] Adverse Reaction (Verified 02/01/22 15:05) Rash griseofulvin Adverse Reaction (Verified 02/01/22 15:05) Rash ibuprofen [From Motrin] Adverse Reaction (Verified 02/01/22 15:05) Rash miconazole [From Monistat 1 Combo Pack] Adverse Reaction (Verified 02/01/22 15:05) Rash propranolol [From Inderal LA] Adverse Reaction (Verified 02/01/22 15:05) Rash rofecoxib [From Vioxx] Adverse Reaction (Verified 02/01/22 15:05) Rash Sulfa (Sulfonamide Antibiotics) Adverse Reaction (Verified 02/01/22 15:05) Rash Procedures: None Type of Care/Length of Stay Estimated LOS: More Than 30 Days Type of Care Needed: Intermediate Rehab Potential: Poor Prognosis: Poor Additional Orders/Day of Discharge Day of Discharge: 04/14/22 Dietary and Speech Recommendations Dietitian Recommendations/Changes: Will continue regular diet as ordered, with small portions Will continue Davion bid to help w/ skin healing Follow Up Care Please Follow Up With: Sai Ye MD When: F/U in 6 weeks Please Follow Up With: Nancy Bledsoe MD Please Follow Up With: Wound Center Discharge Plan Admission Admit Date/Time: 02/03/22 18:10 Primary Reason for Your Visit: Debility. Attending Provider: Dustin Sandoval Chi Primary Care Provider: Boo Cotton Consulting Providers: Abby Cooper ; Pola De La Cruz Instructions Additional Instructions / Restrictions: Change left leg dressing every 3 days and wash with soap and water. Change the dressing with Adaptic, 4 x 4 gauze, abdominal pads, Kerlix. Continue splint per orthopedic recommendations and secured with Candelario wrap. Offload limb by avoiding direct pressure to the heel and ulcer sites of the left lower extremity. Discharge to nonskilled nursing facility 04/14/2022, possibly [facility]. Discharge Orders/Prescriptions Prescriptions: New acetaminophen 500 mg Tablet 1,000 mg PO Q6H PRN PRN (Reason: Pain Score 1-3) Qty: 0 RF: 0 polysaccharide iron complex [Ferrex 150] 150 mg iron Capsule 150 mg PO DAILY Qty: 0 RF: 0 menthol-zinc oxide [Calmoseptine] 0.44-20.6 % Ointment 1 applic topical BID@0600,2200 Qty: 0 RF: 0 nystatin [Nyamyc] 100,000 unit/gram Powder 1 applic topical BID Qty: 0 RF: 0 potassium chloride [Klor-Con M20] 20 mEq Tablet,Er Particles/Crystals 20 meq PO DAILYCM Qty: 0 RF: 0 Firvanq 25 mg/mL Recon Soln 125 mg PO BID Qty: 0 RF: 0 Continued levothyroxine 137 MCG tablet 137 mcg PO DAILY RF: 0 metoprolol tartrate 100 MG tablet 100 mg PO QHS RF: 0 metoprolol tartrate 50 MG tablet 50 mg PO BREAKFAST RF: 0 clopidogrel [Plavix] 75 mg Tablet 75 mg PO DAILY RF: 0 doxepin 10 mg Capsule 10 mg PO QHS RF: 0 pentoxifylline 400 mg Tablet Extended Release 400 mg PO DAILY RF: 0 atorvastatin 20 mg tablet 20 mg PO QHS RF: 0 Davion (with collagen) 7-7-1.5 gram powder in packet 1 packet PO BIDCM RF: 0 Discontinued acidophilus-pectin, citrus 1 TABLET tablet 2 tab PO DAILY RF: 0 acetaminophen 325 MG tablet 650 mg PO Q6H PRN PRN (Reason: Pain Score 1-10/Temp > 100.7 F) RF: 0 Referrals / Follow Up: Boo Cotton MD [Primary Care Provider] - Abby Cooper DPM [STAFF PHYSICIAN] - In 1 Week (Follow-up at wound healing center and call [phone]) Disposition Disposition (needs filled in before D/C Order can be placed): NonSkilled NH/Intermed Care
[2022-04-02] MEDS: Atorvastatin Calcium 20 MG Tablet PO (21:37)
[2022-04-02 21:39] VITALS: BP 105/49; PULSE 123
[2022-04-02] MEDS: Metoprolol Tartrate 100 MG Tablet PO (21:39)
[2022-04-02] MEDS: Doxepin Hydrochloride 10 MG Capsule PO (21:39)
[2022-04-03] MEDS: Levothyroxine 137 MCG Tablet PO (07:21)
[2022-04-03] MEDS: Vancomycin 125 MG/5 ML Susp PO.SYRINGE PO ×2 (07:21→18:13)
[2022-04-03] MEDS: Iron Polysaccharide Complex 150 MG CAPSULE PO (07:21)
[2022-04-03] MEDS: Nystatin Powder 15gm Bottle 1 APPLIC TOPICAL ×2 (07:22→18:14)
[2022-04-03] MEDS: Menthol/Lanolin/Calamine/Znox 113 GM Tube 1 APPLIC TOPICAL ×2 (07:23→21:40)
[2022-04-03] MEDS: Arthritis Pain Compound 60 CLICK TUBE TOPICAL ×2 (09:27→21:37)
[2022-04-03 09:33] VITALS: BP 108/61; PULSE 106
[2022-04-03] MEDS: Potassium Chloride Oral Tablet 20 MEQ PO (09:33)
[2022-04-03] MEDS: Metoprolol Tartrate 50 MG Tablet PO (09:33)
[2022-04-03] MEDS: Pentoxifylline 400 MG Tablet PO (09:34)
[2022-04-03] MEDS: Clopidogrel Bisulfate 75 MG Tablet PO (09:34)
--- NOTE | 2022-04-03 12:49 | PCM.PROGNOTE ---
Subjective Subjective Patient was seen today for follow up on left leg ulcerations. She has no complaints of fever, chills, nausea or vomiting. She is resting in bed with friend visiting. Objective Data Objective Data Vital Signs: Vital Signs Temp Pulse Resp BP Pulse Ox 98.7 F 106 H 18 108/61 97 04/02/22 15:21 04/03/22 09:33 04/02/22 15:21 04/03/22 09:33 04/02/22 15:21 Oxygen Flow Rate (L/min) 3 Oxygen Delivery Method Room Air Weight: 52.22 kg Body Mass Index (BMI) 27.7 Intake & Output: Intake and Output for Last 24 Hours 04/01/22 04/02/22 04/03/22 23:59 23:59 23:59 Intake Total 1480 / 1480 600 / 600 120 / 120 Output Total 500 / 500 650 / 650 750 / 750 Balance 980 / 980 -50 / -50 -630 / -630 Lab / Micro Data Result Diagrams: 03/30/22 05:17 03/30/22 05:17 Micro: Microbiology 03/30/22 11:29 Nasal Secretion SARS-CoV-2 Antigen (Rapid) - Final 03/27/22 19:50 Stool Enteric Bacteriology - Final 03/27/22 14:35 Nasal Secretion SARS-CoV-2 Antigen (Rapid) - Final 02/13/22 09:40 Stool C. difficile GDH Antigen & Toxins - Final 02/13/22 09:40 Stool C. difficile DNA Amplification - Final 02/07/22 00:20 Blood Culture (Wb) - Anticubital Left Blood Culture - Final No growth in 5 days. 02/07/22 00:20 Blood Culture (Wb) - Anticubital Left Blood Culture - Final No growth in 5 days. 02/09/22 13:10 Nasal Secretion SARS-CoV-2 Antigen (Rapid) - Final 02/07/22 00:10 Urine Catheter - Catheter Urine Culture - Final Klebsiella pneumoniae sp pneum Physical Exam Eyes General Eye: normal appearance of both eyes Lymph Lymphatic: no lymphadenopathy noted and no lymphedema noted Resp normal respiratory effort Extremity no calf tenderness Skin Wound Narrative: Left foot/ankle/leg: Multiple chronic lower extremity ulcerations about leg - the wounds are down to superficial subcutaneous tissue - there is some superficial sloughing skin, otherwise ulceration bases are granular and healthy appearing. There is no erythema, purulence, or proximal streaking noted. There is no bogginess or palpable fluctuance appreciated. Assessment & Plan Assessment/Plan (1) Venous insufficiency: (2) Delayed wound healing: (3) Ulcer of left lower extremity with fat layer exposed: (4) Closed fracture of left fibula and tibia: (5) Laceration of left leg: (6) Dry skin dermatitis: (7) Post-polio syndrome: (8) Chronic pain: QUALIFIERS: Chronic pain type: other chronic pain Qualified Code(s): G89.29 - Other chronic pain (9) Localized edema: (10) Osteoporosis: PLAN: Patient seen and evaluated. Case was discussed. Left leg ulcerations re-evaluated. She was reassured no local signs of infection are noted and her leg appears stable. Wounds are granular and no evidence of deep involvement. Continue with local wound care: Clean with Dakin's soln and saline soln, and cover wounds with adaptic, KerraMax super absorption dressing, kerlix and well padded posterior splint with heel offloaded. Change dressing MWF. To continue offloading and fracture protection with splint use. She will be following up with orthopedics for fracture management. She has an anticipated additional several weeks of immobilization with a splint Per medical record review. It is also noted she has a history of C. difficile and is on antibiotic taper under the management of infectious disease who is also been following her. She will follow up in wound care center upon discharge. The podiatry team will continue to follow her weekly while in the house. Please do not hesitate to call if you have any questions.
[2022-04-03] MEDS: Acetaminophen 500 MG Tablet 1000 MG PO ×2 (12:53→21:36)
--- NOTE | 2022-04-03 14:34 | NURSING ---
Dressing change done to left leg per Dr. Nova. Dressing changes will continue to be on Wednesday, Wednesday and Wednesday and continue with current wound care.
[2022-04-03 16:15] VITALS: BP 108/61; PULSE 106; RESP 14; TEMP 36.6; O2SAT 91
[2022-04-03 16:16] VITALS: PULSE 106; RESP 16; O2SAT 91
[2022-04-03 21:38] VITALS: BP 105/51; PULSE 117
[2022-04-03] MEDS: Atorvastatin Calcium 20 MG Tablet PO (21:38)
[2022-04-03] MEDS: Metoprolol Tartrate 100 MG Tablet PO (21:38)
[2022-04-03] MEDS: Doxepin Hydrochloride 10 MG Capsule PO (21:38)
[2022-04-04] MEDS: Vancomycin 125 MG/5 ML Susp PO.SYRINGE PO ×2 (07:03→17:15)
[2022-04-04] MEDS: Iron Polysaccharide Complex 150 MG CAPSULE PO (07:03)
[2022-04-04] MEDS: Levothyroxine 137 MCG Tablet PO (07:03)
[2022-04-04] MEDS: Menthol/Lanolin/Calamine/Znox 113 GM Tube 1 APPLIC TOPICAL ×2 (07:05→22:08)
[2022-04-04] MEDS: Nystatin Powder 15gm Bottle 1 APPLIC TOPICAL ×2 (07:06→17:16)
[2022-04-04 09:27] VITALS: BP 108/56; PULSE 114
[2022-04-04] MEDS: Pentoxifylline 400 MG Tablet PO (09:27)
[2022-04-04] MEDS: Metoprolol Tartrate 50 MG Tablet PO (09:27)
[2022-04-04] MEDS: Clopidogrel Bisulfate 75 MG Tablet PO (09:27)
[2022-04-04] MEDS: Potassium Chloride Oral Tablet 20 MEQ PO (09:28)
[2022-04-04] MEDS: Arthritis Pain Compound 60 CLICK TUBE TOPICAL ×2 (09:28→22:08)
[2022-04-04] MEDS: Juven (unflavored) Packet 1 PACKET PO (12:26)
[2022-04-04 16:00] VITALS: BP 108/63; PULSE 106; RESP 18; TEMP 37.1; O2SAT 95
[2022-04-04 22:07] VITALS: BP 109/56; PULSE 128
[2022-04-04 22:09] VITALS: PULSE 128
[2022-04-04] MEDS: Atorvastatin Calcium 20 MG Tablet PO (22:09)
[2022-04-04] MEDS: Doxepin Hydrochloride 10 MG Capsule PO (22:09)
[2022-04-04] MEDS: Metoprolol Tartrate 100 MG Tablet PO (22:09)
[2022-04-04] MEDS: Acetaminophen 500 MG Tablet 1000 MG PO (22:11)
[2022-04-05] MEDS: Levothyroxine 137 MCG Tablet PO (07:01)
[2022-04-05] MEDS: Iron Polysaccharide Complex 150 MG CAPSULE PO (07:02)
[2022-04-05] MEDS: Vancomycin 125 MG/5 ML Susp PO.SYRINGE PO ×2 (07:02→17:57)
[2022-04-05] MEDS: Menthol/Lanolin/Calamine/Znox 113 GM Tube 1 APPLIC TOPICAL ×2 (07:03→21:44)
[2022-04-05] MEDS: Nystatin Powder 15gm Bottle 1 APPLIC TOPICAL ×2 (07:03→17:56)
[2022-04-05] MEDS: Potassium Chloride Oral Tablet 20 MEQ PO (08:50)
[2022-04-05 08:52] VITALS: PULSE 108
[2022-04-05] MEDS: Metoprolol Tartrate 50 MG Tablet PO (08:52)
[2022-04-05] MEDS: Clopidogrel Bisulfate 75 MG Tablet PO (08:52)
[2022-04-05] MEDS: Pentoxifylline 400 MG Tablet PO (08:53)
[2022-04-05] MEDS: Arthritis Pain Compound 60 CLICK TUBE TOPICAL ×2 (08:54→21:44)
[2022-04-05 10:00] VITALS: PULSE 108
[2022-04-05] MEDS: Juven (unflavored) Packet 1 PACKET PO ×2 (12:30→17:56)
[2022-04-05 16:00] VITALS: BP 108/57; PULSE 101; RESP 18; TEMP 37.1; O2SAT 93
[2022-04-05 21:43] VITALS: BP 132/67; PULSE 127
[2022-04-05 21:46] VITALS: PULSE 127
[2022-04-05] MEDS: Atorvastatin Calcium 20 MG Tablet PO (21:46)
[2022-04-05] MEDS: Metoprolol Tartrate 100 MG Tablet PO (21:46)
[2022-04-05] MEDS: Doxepin Hydrochloride 10 MG Capsule PO (21:46)
[2022-04-05] MEDS: Acetaminophen 500 MG Tablet 1000 MG PO (21:53)
[2022-04-06 05:54] LABS: Absolute Neutrophil Count 6.2 X10^3/uL (2.0-7.7); Basophil% 0.9 % (0-1); Eosinophil# 0.53 X10^3/uL; Eosinophils% 4.6 % (0-5); Hematocrit 30.3 % (37-47); Hemoglobin 9.5 g/dL (12.0-15.0); Lymphocyte % 31.5 % (19-41); Mean Corp Hgb Conc 31.4 g/dL (32-36); Mean Corpuscular Hgb 28.1 pg (27.0-32.0); Mean Corpuscular Volume 89.6 fL (81-99); Mean Platelet Vol. 7.8 fl (6.2-12.0); Monocyte# 0.98 X10^3/uL; Monocyte% 8.6 % (0-10); NRBC Flagged by Analyzer 0 % (0-5); Neutrophil # 6.18 X10^3/uL (2.7-7.7); Platelet Count 360 K/mm3 (150-450); RBC Distribution Width CV 15.2 % (11.6-14.6); RBC Distribution Width SD 50.3 fl (35.1-43.9); Red Blood Count 3.38 M/mm3 (4.2-5.4); White Blood Count 11.4 K/mm3 (4.4-11.0)
[2022-04-06 06:19] LABS: Anion Gap 5 (5-15); BUN 34 mg/dL (7-18); BUN/Creat Ratio 31.5 RATIO (10-20); Calcium,Total 9.2 mg/dL (8.5-10.1); Chloride 103 mmol/L (98-107); Creatinine, Serum 1.08 mg/dL (0.55-1.02); EST Glomerular Filtration Rate 53 mL/min (>60); Est Glom Filt Rate - Afr Amer 64 mL/min (>60); Estimated Creatinine Clearance 38.24 ml/min; Glucose 93 mg/dL (74-106); Potassium 4.6 mmol/L (3.5-5.1); Sodium Level 136 mmol/L (136-145)
[2022-04-06] MEDS: Nystatin Powder 15gm Bottle 1 APPLIC TOPICAL ×2 (06:27→17:22)
[2022-04-06] MEDS: Levothyroxine 137 MCG Tablet PO (06:27)
[2022-04-06] MEDS: Menthol/Lanolin/Calamine/Znox 113 GM Tube 1 APPLIC TOPICAL (06:27)
[2022-04-06] MEDS: Iron Polysaccharide Complex 150 MG CAPSULE PO (06:27)
[2022-04-06] MEDS: Vancomycin 125 MG/5 ML Susp PO.SYRINGE PO ×2 (06:28→17:21)
[2022-04-06] MEDS: Pentoxifylline 400 MG Tablet PO (08:10)
[2022-04-06] MEDS: Potassium Chloride Oral Tablet 20 MEQ PO (08:11)
[2022-04-06] MEDS: Clopidogrel Bisulfate 75 MG Tablet PO (08:11)
[2022-04-06] MEDS: Arthritis Pain Compound 60 CLICK TUBE TOPICAL ×2 (08:11→22:20)
[2022-04-06 08:19] VITALS: PULSE 100
[2022-04-06] MEDS: Metoprolol Tartrate 50 MG Tablet PO (08:19)
[2022-04-06 09:55] VITALS: PULSE 101; RESP 20; TEMP 36.3; O2SAT 100
[2022-04-06 13:16] VITALS: BP 115/56
[2022-04-06] MEDS: Acetaminophen 500 MG Tablet 1000 MG PO (22:19)
[2022-04-06] MEDS: Atorvastatin Calcium 20 MG Tablet PO (22:19)
[2022-04-06] MEDS: Doxepin Hydrochloride 10 MG Capsule PO (22:19)
[2022-04-06 22:22] VITALS: BP 111/54; PULSE 131
[2022-04-06] MEDS: Metoprolol Tartrate 100 MG Tablet PO (22:22)
[2022-04-07] MEDS: Nystatin Powder 15gm Bottle 1 APPLIC TOPICAL ×2 (05:54→17:23)
[2022-04-07] MEDS: Menthol/Lanolin/Calamine/Znox 113 GM Tube 1 APPLIC TOPICAL ×2 (05:54→21:17)
[2022-04-07] MEDS: Levothyroxine 137 MCG Tablet PO (05:54)
[2022-04-07] MEDS: Vancomycin 125 MG/5 ML Susp PO.SYRINGE PO (05:54)
[2022-04-07] MEDS: Iron Polysaccharide Complex 150 MG CAPSULE PO (05:55)
[2022-04-07 08:58] VITALS: BP 112/64; PULSE 93
[2022-04-07] MEDS: Metoprolol Tartrate 50 MG Tablet PO (08:58)
[2022-04-07] MEDS: Arthritis Pain Compound 60 CLICK TUBE TOPICAL ×2 (08:59→21:16)
[2022-04-07] MEDS: Potassium Chloride Oral Tablet 20 MEQ PO (08:59)
[2022-04-07] MEDS: Pentoxifylline 400 MG Tablet PO (08:59)
--- NOTE | 2022-04-07 10:52 | PCM.PN.ID ---
Physical Exam Narrative Stool is soft, going 2x / day. No liquid stool. No fever. Const alert and no apparent distress General Appearance: cooperative Resp normal air movement and clear to auscultation bilaterally Cardio regular rate and regular rhythm GI soft to palpation, non-tender and non-distended Skin no rashes or lesions noted ID ID: Route of nutrition/ use of supplements: [] Nutritional Intake: [] IV Site: [] [place] Catheter: [] Assessment & Plan Assessment/Plan (1) Recurrent Clostridioides difficile diarrhea: PLAN: Diarrhea increased while nearing end of taper. Sx now improved after increase vanc to 125mg bid. Restarted slower taper, consider dificid if she does not continue to improve. Diarrhea better, will decrease to 125mg daily for 10 days, then 125mg q2day indefinitely. ID followup in one month. Will follow
--- NOTE | 2022-04-07 11:46 | WOUNDNOTE ---
In to talk with patient. dressing to the left lower leg is due to be changed tomorrow. Pt states the plan is for patient to be discharged to another nursing on 04/14/22. will take new wound photos with dressing change tomorrow. pt denies further needs at this time.
--- NOTE | 2022-04-07 14:13 | CASEMGMT ---
Addendum entered by Candice Li 04/08/22 15:15: Spoke with [facility] liaison - they can accept - dtr is touring this afternoon. Spoke with [facility] - they can accept and provided pricing. [facility] cannot accept if pt is going to be keeping Drs in [place] d/t to transport; however, they can provide transport to [facility]. Will update pt and dtr. Original Note: Social Work Asia from [facility] completed onsite with pt. Pt stated she does not want to apply for [facility] and she doesn't want to spend her funds on a SNF. [facility] requires 30 days up front, about $8k/mo. Pt to speak with dtr. SW to contact dtr as well. Spoke with [facility] and the liaison is still reviewing referral. Contacted dtr to update and discuss DC plans. Explained any facility is going to ask for 30 days up front and proof of ongoing financial stability. Dtr expressed understanding; stated pt has the funds, but doesn't want to use them. She will speak with pt. Encouraged dtr to provide additional SNFs to refer to. Dtr requesting referrals to [facility]. Referrals made. SW to continue to follow. DANA Patel AGENT BROKER
[2022-04-07 15:39] VITALS: BP 112/64; PULSE 93; RESP 14; TEMP 36.6; O2SAT 92
[2022-04-07 21:16] VITALS: BP 112/55; PULSE 120
[2022-04-07] MEDS: Doxepin Hydrochloride 10 MG Capsule PO (21:16)
[2022-04-07] MEDS: Metoprolol Tartrate 100 MG Tablet PO (21:16)
[2022-04-07] MEDS: Atorvastatin Calcium 20 MG Tablet PO (21:16)
[2022-04-07] MEDS: Acetaminophen 500 MG Tablet 1000 MG PO (21:21)
[2022-04-08] MEDS: Vancomycin 125 MG/5 ML Susp PO.SYRINGE PO (06:34)
[2022-04-08] MEDS: Iron Polysaccharide Complex 150 MG CAPSULE PO (06:34)
[2022-04-08] MEDS: Levothyroxine 137 MCG Tablet PO (06:34)
[2022-04-08] MEDS: Nystatin Powder 15gm Bottle 1 APPLIC TOPICAL ×2 (06:36→17:44)
[2022-04-08] MEDS: Menthol/Lanolin/Calamine/Znox 113 GM Tube 1 APPLIC TOPICAL ×2 (06:36→21:52)
[2022-04-08 08:54] VITALS: PULSE 75
[2022-04-08] MEDS: Metoprolol Tartrate 50 MG Tablet PO (08:54)
[2022-04-08] MEDS: Arthritis Pain Compound 60 CLICK TUBE TOPICAL ×2 (08:55→21:52)
[2022-04-08] MEDS: Potassium Chloride Oral Tablet 20 MEQ PO (08:55)
[2022-04-08] MEDS: Pentoxifylline 400 MG Tablet PO (08:55)
--- NOTE | 2022-04-08 08:55 | PCM.PROGNOTE ---
Subjective Subjective Patient was seen today for follow up on left leg ulcerations. She has no complaints of fever, chills, nausea or vomiting. She is resting in bed with friend visiting. Objective Data Objective Data Vital Signs: Vital Signs Temp Pulse Resp BP Pulse Ox 97.8 F 120 H 14 112/55 L 92 04/07/22 15:39 04/07/22 21:16 04/07/22 15:39 04/07/22 21:16 04/07/22 15:39 Oxygen Flow Rate (L/min) 1 Oxygen Delivery Method Room Air Weight: 50.491 kg Body Mass Index (BMI) 27.7 Intake & Output: Intake and Output for Last 24 Hours 04/06/22 04/07/22 04/08/22 23:59 23:59 23:59 Intake Total 720 / 720 830 / 830 Output Total 400 / 400 400 / 400 300 / 300 Balance 320 / 320 430 / 430 -300 / -300 Lab / Micro Data Result Diagrams: 04/06/22 05:44 04/06/22 05:44 Micro: Microbiology 04/06/22 10:09 Nasal Secretion SARS-CoV-2 Antigen (Rapid) - Final 03/30/22 11:29 Nasal Secretion SARS-CoV-2 Antigen (Rapid) - Final 03/27/22 19:50 Stool Enteric Bacteriology - Final 03/27/22 14:35 Nasal Secretion SARS-CoV-2 Antigen (Rapid) - Final 02/13/22 09:40 Stool C. difficile GDH Antigen & Toxins - Final 02/13/22 09:40 Stool C. difficile DNA Amplification - Final 02/07/22 00:20 Blood Culture (Wb) - Anticubital Left Blood Culture - Final No growth in 5 days. 02/07/22 00:20 Blood Culture (Wb) - Anticubital Left Blood Culture - Final No growth in 5 days. 02/09/22 13:10 Nasal Secretion SARS-CoV-2 Antigen (Rapid) - Final 02/07/22 00:10 Urine Catheter - Catheter Urine Culture - Final Klebsiella pneumoniae sp pneum Physical Exam HEENT normocephalic Eyes PERRL General Eye: normal appearance of both eyes Neck General: normal visual inspection Lymph Lymphatic: no lymphadenopathy noted and no lymphedema noted Resp normal respiratory effort Cardio regular rate and regular rhythm Extremity no calf tenderness Skin Wound Narrative: Left foot/ankle/leg: Multiple chronic lower extremity ulcerations about leg - the wounds are down to superficial subcutaneous tissue - there is some superficial sloughing skin, otherwise ulceration bases are granular and healthy appearing. There is no erythema, purulence, or proximal streaking noted. There is no bogginess or palpable fluctuance appreciated. Some increased drainage today. Assessment & Plan Assessment/Plan (1) Venous insufficiency: (2) Delayed wound healing: (3) Ulcer of left lower extremity with fat layer exposed: (4) Closed fracture of left fibula and tibia: (5) Laceration of left leg: (6) Dry skin dermatitis: (7) Post-polio syndrome: (8) Chronic pain: QUALIFIERS: Chronic pain type: other chronic pain Qualified Code(s): G89.29 - Other chronic pain (9) Localized edema: (10) Osteoporosis: PLAN: Patient seen and evaluated. Case was discussed. Left leg ulcerations re-evaluated. She was reassured no local signs of infection are noted and her leg appears stable. Wounds are granular and no evidence of deep involvement. Continue with local wound care: Clean with Dakin's soln and saline soln, and cover wounds with aquacell, KerraMax super absorption dressing, kerlix and well padded posterior splint with heel offloaded. Change dressing MWF. To continue offloading and fracture protection with splint use. She will be following up with orthopedics for fracture management. She has an anticipated additional several weeks of immobilization with a splint Per medical record review. It is also noted she has a history of C. difficile and is on antibiotic taper under the management of infectious disease who is also been following her. She will follow up in wound care center upon discharge. The podiatry team will continue to follow her weekly while in the house. Please do not hesitate to call if you have any questions.
--- NOTE | 2022-04-08 11:34 | WOUNDNOTE ---
wound photo: left lower leg
--- NOTE | 2022-04-08 11:35 | WOUNDNOTE ---
wound photo: left lower leg
--- NOTE | 2022-04-08 11:36 | WOUNDNOTE ---
wound photo: left lower leg
--- NOTE | 2022-04-08 11:36 | WOUNDNOTE ---
wound photo: left lower leg
[2022-04-08] MEDS: Acetaminophen 500 MG Tablet 1000 MG PO (11:57)
[2022-04-08 14:34] VITALS: BP 112/64; PULSE 78; RESP 14; TEMP 36.8; O2SAT 98
[2022-04-08] MEDS: Juven (unflavored) Packet 1 PACKET PO (17:44)
[2022-04-08 21:53] VITALS: BP 135/64; PULSE 120
[2022-04-08] MEDS: Metoprolol Tartrate 100 MG Tablet PO (21:53)
[2022-04-08] MEDS: Doxepin Hydrochloride 10 MG Capsule PO (21:53)
[2022-04-08] MEDS: Atorvastatin Calcium 20 MG Tablet PO (21:53)
[2022-04-09] MEDS: Menthol/Lanolin/Calamine/Znox 113 GM Tube 1 APPLIC TOPICAL ×2 (06:29→21:10)
[2022-04-09] MEDS: Levothyroxine 137 MCG Tablet PO (06:30)
[2022-04-09] MEDS: Nystatin Powder 15gm Bottle 1 APPLIC TOPICAL ×2 (06:30→17:50)
[2022-04-09] MEDS: Iron Polysaccharide Complex 150 MG CAPSULE PO (06:30)
[2022-04-09] MEDS: Acetaminophen 500 MG Tablet 1000 MG PO ×2 (06:31→21:08)
[2022-04-09] MEDS: Vancomycin 125 MG/5 ML Susp PO.SYRINGE PO (07:06)
[2022-04-09 10:36] VITALS: PULSE 76
[2022-04-09] MEDS: Arthritis Pain Compound 60 CLICK TUBE TOPICAL ×2 (10:36→21:10)
[2022-04-09] MEDS: Potassium Chloride Oral Tablet 20 MEQ PO (10:36)
[2022-04-09] MEDS: Metoprolol Tartrate 50 MG Tablet PO (10:36)
[2022-04-09] MEDS: Pentoxifylline 400 MG Tablet PO (10:36)
--- NOTE | 2022-04-09 11:40 | CASEMGMT ---
Social Work Spoke with dtr to f/u on tour with [facility]. Dtr is not going to make that her first choice, but doesn't want to take them off the list. Updated her [facility] can accept and [facility] and [facility] cannot. SW left message with Rohan at [facility]. Dtr to tour [facility] and update this worker. Candice Li ,PARAMEDIC WAITER/WAITRESS ROOM SERVICE
[2022-04-09 14:38] VITALS: BP 111/49; PULSE 82; RESP 14; TEMP 36.8; O2SAT 95
--- NOTE | 2022-04-09 16:08 | NURSING ---
Notified patient and of staff member testing positive for COVID
[2022-04-09 21:00] VITALS: PULSE 119; RESP 16; O2SAT 94
[2022-04-09 21:05] VITALS: BP 118/52; PULSE 119
[2022-04-09 21:09] VITALS: PULSE 119
[2022-04-09] MEDS: Metoprolol Tartrate 100 MG Tablet PO (21:09)
[2022-04-09] MEDS: Doxepin Hydrochloride 10 MG Capsule PO (21:09)
[2022-04-09] MEDS: Atorvastatin Calcium 20 MG Tablet PO (21:09)
[2022-04-10] MEDS: Levothyroxine 137 MCG Tablet PO (07:26)
[2022-04-10] MEDS: Nystatin Powder 15gm Bottle 1 APPLIC TOPICAL ×2 (07:27→17:43)
[2022-04-10] MEDS: Vancomycin 125 MG/5 ML Susp PO.SYRINGE PO (07:27)
[2022-04-10] MEDS: Menthol/Lanolin/Calamine/Znox 113 GM Tube 1 APPLIC TOPICAL ×2 (07:27→20:39)
[2022-04-10] MEDS: Iron Polysaccharide Complex 150 MG CAPSULE PO (07:27)
[2022-04-10 08:16] VITALS: PULSE 98
[2022-04-10] MEDS: Potassium Chloride Oral Tablet 20 MEQ PO (08:16)
[2022-04-10] MEDS: Pentoxifylline 400 MG Tablet PO (08:16)
[2022-04-10] MEDS: Arthritis Pain Compound 60 CLICK TUBE TOPICAL ×2 (08:16→20:39)
[2022-04-10] MEDS: Metoprolol Tartrate 50 MG Tablet PO (08:16)
--- NOTE | 2022-04-10 13:18 | CASEMGMT ---
Addendum entered by Candice Li 04/13/22 12:43: Received Level II results and pt was approved for SNF. Faxed results to [facility]. Addendum entered by Candice Li 04/10/22 14:38: PASRR triggered for Level II eval d/t Polio dx as a child. Will await Level II determination prior to transferring pt on 04/14. Original Note: Social Work Spoke with dtr - pt/dtr choosing [facility] for FOC. Notified all other SNFs. Completed PASRR. Faxed DC paperwork. Scheduled cot transport for 11 am through [facility]. Plan: DC 04/14 to [facility], nonskilled, private pay DANA Patel
[2022-04-10 16:00] VITALS: BP 136/64; PULSE 110; RESP 17; TEMP 36.1; O2SAT 93
[2022-04-10 20:37] VITALS: BP 146/73; PULSE 119
[2022-04-10] MEDS: Atorvastatin Calcium 20 MG Tablet PO (20:39)
[2022-04-10 20:40] VITALS: PULSE 119
[2022-04-10] MEDS: Metoprolol Tartrate 100 MG Tablet PO (20:40)
[2022-04-10] MEDS: Doxepin Hydrochloride 10 MG Capsule PO (20:40)
[2022-04-10] MEDS: Acetaminophen 500 MG Tablet 1000 MG PO (20:40)
[2022-04-11] MEDS: Vancomycin 125 MG/5 ML Susp PO.SYRINGE PO (06:29)
[2022-04-11] MEDS: Menthol/Lanolin/Calamine/Znox 113 GM Tube 1 APPLIC TOPICAL ×2 (06:29→21:17)
[2022-04-11] MEDS: Levothyroxine 137 MCG Tablet PO (06:29)
[2022-04-11] MEDS: Nystatin Powder 15gm Bottle 1 APPLIC TOPICAL ×2 (06:29→16:47)
[2022-04-11] MEDS: Iron Polysaccharide Complex 150 MG CAPSULE PO (06:29)
[2022-04-11 08:51] VITALS: BP 108/62; PULSE 95
[2022-04-11] MEDS: Pentoxifylline 400 MG Tablet PO (08:51)
[2022-04-11] MEDS: Metoprolol Tartrate 50 MG Tablet PO ×2 (08:51→21:18)
[2022-04-11] MEDS: Potassium Chloride Oral Tablet 20 MEQ PO (08:52)
[2022-04-11] MEDS: Arthritis Pain Compound 60 CLICK TUBE TOPICAL ×2 (08:52→21:17)
[2022-04-11 16:50] VITALS: BP 108/62; PULSE 95; RESP 16; TEMP 36.6; O2SAT 93
[2022-04-11 21:18] VITALS: BP 123/60; PULSE 115
[2022-04-11] MEDS: Atorvastatin Calcium 20 MG Tablet PO (21:18)
[2022-04-11 21:20] VITALS: BP 123/60; PULSE 115
[2022-04-11] MEDS: Metoprolol Tartrate 100 MG Tablet PO (21:20)
[2022-04-11] MEDS: Acetaminophen 500 MG Tablet 1000 MG PO (21:23)
[2022-04-11] MEDS: Doxepin Hydrochloride 10 MG Capsule PO (21:30)
[2022-04-11 21:57] VITALS: PULSE 115; RESP 16; O2SAT 95
[2022-04-12] MEDS: Levothyroxine 137 MCG Tablet PO (05:47)
[2022-04-12] MEDS: Menthol/Lanolin/Calamine/Znox 113 GM Tube 1 APPLIC TOPICAL ×2 (05:48→21:25)
[2022-04-12] MEDS: Iron Polysaccharide Complex 150 MG CAPSULE PO (05:48)
[2022-04-12] MEDS: Vancomycin 125 MG/5 ML Susp PO.SYRINGE PO (05:48)
[2022-04-12] MEDS: Nystatin Powder 15gm Bottle 1 APPLIC TOPICAL ×2 (05:49→18:04)
[2022-04-12] MEDS: Arthritis Pain Compound 60 CLICK TUBE TOPICAL ×2 (08:55→21:25)
[2022-04-12] MEDS: Potassium Chloride Oral Tablet 20 MEQ PO (08:55)
[2022-04-12] MEDS: Pentoxifylline 400 MG Tablet PO (08:55)
[2022-04-12 13:57] VITALS: BP 139/59; PULSE 97; RESP 14; TEMP 36.8; O2SAT 95
[2022-04-12 13:59] VITALS: PULSE 97; RESP 14; O2SAT 95
[2022-04-12] MEDS: Acetaminophen 500 MG Tablet 1000 MG PO (21:25)
[2022-04-12 21:26] VITALS: BP 127/61; PULSE 115
[2022-04-12] MEDS: Doxepin Hydrochloride 10 MG Capsule PO (21:26)
[2022-04-12] MEDS: Metoprolol Tartrate 100 MG Tablet PO (21:26)
[2022-04-12] MEDS: Atorvastatin Calcium 20 MG Tablet PO (21:26)
[2022-04-13] MEDS: Nystatin Powder 15gm Bottle 1 APPLIC TOPICAL ×2 (05:15→18:19)
[2022-04-13] MEDS: Levothyroxine 137 MCG Tablet PO (05:15)
[2022-04-13] MEDS: Iron Polysaccharide Complex 150 MG CAPSULE PO (05:15)
[2022-04-13] MEDS: Vancomycin 125 MG/5 ML Susp PO.SYRINGE PO (05:17)
[2022-04-13 05:43] LABS: Absolute Lymphocyte Count 3.42 X10^3/uL (0.83-4.51); Absolute Neutrophil Count 6.4 X10^3/uL (2.0-7.7); Basophil# 0.08 X10^3/uL; Basophil% 0.7 % (0-1); Eosinophil# 0.42 X10^3/uL; Eosinophils% 3.7 % (0-5); Hematocrit 29.9 % (37-47); Hemoglobin 9.3 g/dL (12.0-15.0); Lymphocyte # 3.42 X10^3/ul (0.83-4.51); Mean Corp Hgb Conc 31.1 g/dL (32-36); Mean Corpuscular Hgb 28.8 pg (27.0-32.0); Mean Corpuscular Volume 92.6 fL (81-99); Monocyte# 1.02 X10^3/uL; Monocyte% 8.9 % (0-10); NRBC Flagged by Analyzer 0 % (0-5); Neutrophil # 6.41 X10^3/uL (2.7-7.7); Neutrophil % 56.2 % (47-70); Platelet Count 353 K/mm3 (150-450); RBC Distribution Width CV 15.3 % (11.6-14.6); Red Blood Count 3.23 M/mm3 (4.2-5.4); White Blood Count 11.4 K/mm3 (4.4-11.0)
[2022-04-13 06:04] LABS: Anion Gap 4 (5-15); BUN 20 mg/dL (7-18); BUN/Creat Ratio 20.4 RATIO (10-20); Calcium,Total 9.1 mg/dL (8.5-10.1); Chloride 105 mmol/L (98-107); Creatinine, Serum 0.98 mg/dL (0.55-1.02); EST Glomerular Filtration Rate 59 mL/min (>60); Est Glom Filt Rate - Afr Amer 71 mL/min (>60); Estimated Creatinine Clearance 40.75 ml/min; Glucose 101 mg/dL (74-106); Potassium 4.6 mmol/L (3.5-5.1); Sodium Level 137 mmol/L (136-145)
[2022-04-13 08:14] VITALS: PULSE 104
[2022-04-13] MEDS: Pentoxifylline 400 MG Tablet PO (08:14)
[2022-04-13] MEDS: Metoprolol Tartrate 100 MG Tablet PO ×2 (08:14→21:54)
[2022-04-13] MEDS: Metoprolol Tartrate 50 MG Tablet PO (08:14)
[2022-04-13] MEDS: Potassium Chloride Oral Tablet 20 MEQ PO (08:15)
[2022-04-13] MEDS: Arthritis Pain Compound 60 CLICK TUBE TOPICAL ×2 (08:17→21:53)
--- NOTE | 2022-04-13 12:56 | WOUNDNOTE ---
wound photo: left lower leg(medial view)
--- NOTE | 2022-04-13 12:57 | WOUNDNOTE ---
wound photo: left lower leg (anterior view)
--- NOTE | 2022-04-13 12:58 | WOUNDNOTE ---
wound photo: left lower leg (lateral view)
[2022-04-13 13:19] VITALS: BP 123/55; PULSE 106; RESP 16; TEMP 36.3; O2SAT 95
--- NOTE | 2022-04-13 15:04 | CASEMGMT ---
Social Work BIMS and PHQ-9 completed for MDS assessment. Candice Li ,PLASTIC SURGERY NURSE GLUER MACHINE SETUP OPERATOR
[2022-04-13 21:50] VITALS: PULSE 122; RESP 16; O2SAT 98
[2022-04-13 21:52] VITALS: BP 145/79; PULSE 122
[2022-04-13] MEDS: Acetaminophen 500 MG Tablet 1000 MG PO (21:52)
[2022-04-13] MEDS: Menthol/Lanolin/Calamine/Znox 113 GM Tube 1 APPLIC TOPICAL (21:53)
[2022-04-13 21:54] VITALS: PULSE 122
[2022-04-13] MEDS: Doxepin Hydrochloride 10 MG Capsule PO (21:54)
[2022-04-13] MEDS: Atorvastatin Calcium 20 MG Tablet PO (21:54)
[2022-04-14] MEDS: Menthol/Lanolin/Calamine/Znox 113 GM Tube 1 APPLIC TOPICAL (06:48)
[2022-04-14] MEDS: Iron Polysaccharide Complex 150 MG CAPSULE PO (06:48)
[2022-04-14] MEDS: Levothyroxine 137 MCG Tablet PO (06:48)
[2022-04-14] MEDS: Vancomycin 125 MG/5 ML Susp PO.SYRINGE PO (06:49)
[2022-04-14 09:02] VITALS: PULSE 96
[2022-04-14] MEDS: Arthritis Pain Compound 60 CLICK TUBE TOPICAL (09:02)
[2022-04-14] MEDS: Metoprolol Tartrate 50 MG Tablet PO (09:02)
[2022-04-14] MEDS: Pentoxifylline 400 MG Tablet PO (09:02)
[2022-04-14] MEDS: Potassium Chloride Oral Tablet 20 MEQ PO (09:02)
--- NOTE | 2022-04-14 11:05 | NURSING ---
Patient discharged from facility at this time with [facility]. Patient left via cot with all personal belongings.
[2022-04-14 11:20] VITALS: BP 126/63; PULSE 93; RESP 16; TEMP 36.3; O2SAT 96
== END 2022-04-14 11:05 | disposition intermediate care facility (04) | DRG 560 ==
PROVIDERS: Admitting Provider Family Medicine Geriatric Medicine; PCP Family Medicine; Visit Provider Family Medicine Geriatric Medicine
DX: S82.202D Unspecified fracture of shaft of left tibia, subsequent encounter for closed fracture with routine healing (principal); A04.71 Enterocolitis due to Clostridium difficile, recurrent; L97.822 Non-pressure chronic ulcer of other part of left lower leg with fat layer exposed; B91 Sequelae of poliomyelitis; B35.4 Tinea corporis; M81.0 Age-related osteoporosis without current pathological fracture; J44.9 Chronic obstructive pulmonary disease, unspecified; I73.9 Peripheral vascular disease, unspecified; E78.5 Hyperlipidemia, unspecified; I10 Essential (primary) hypertension; E03.9 Hypothyroidism, unspecified; L30.9 Dermatitis, unspecified; D50.9 Iron deficiency anemia, unspecified; G14 Postpolio syndrome; I87.2 Venous insufficiency (chronic) (peripheral); B96.1 Klebsiella pneumoniae [K. pneumoniae] as the cause of diseases classified elsewhere; E87.6 Hypokalemia; E86.0 Dehydration; S80.01XD Contusion of right knee, subsequent encounter; Z99.3 Dependence on wheelchair; V88.8XXD Person injured in other specified noncollision transport accidents involving motor vehicle, nontraffic, subsequent encounter; S82.402D Unspecified fracture of shaft of left fibula, subsequent encounter for closed fracture with routine healing; Z87.891 Personal history of nicotine dependence; Z79.899 Other long term (current) drug therapy; Z79.890 Hormone replacement therapy; G47.00 Insomnia, unspecified; Z23 Encounter for immunization
CPT/HCPCS: 0004A; 36415; 71046; 73590; 74018; 80048; 81001; 85014; 85018; 85025; 85610; 85730; 86850; 86900; 86901; 86920; 86922; 87040; 87077; 87086; 87088; 87186; 87426; 87493; 87506; 91300; 94640; 97110; 97162; 97166; 97167; 97530; 97535; 97542; 97802; 99251; J7030; A4216; G0463

== ENCOUNTER 2022-02-12 09:16 | Outpatient (CLI) | payer MEDICARE, OTHER, SELFPAY ==
[2022-02-12] VITALS (7 sets, daily range): BP systolic 113–148; BP diastolic 56–70; PULSE 96–114; RESP 12–18; TEMP 36.8–37.2; O2SAT 91–94
[2022-02-12] MEDS: 0.9% NaCl Peripheral Flush Adult/Peds IV ×2 (09:44→15:05)
--- NOTE | 2022-02-12 12:02 | NURSING ---
pt. very painful with movement. she is to receive lasix in between prbc's, however, she is reluctant due to difficulty turning in bed. rn paged dr. savage and obtained new order to give lasix at end of both prbc's as pt. uses purewick on tcu.
[2022-02-12] MEDS: Furosemide 20 MG/2 ML VIAL IV (15:00)
== END 2022-02-12 23:59 | disposition home or self-care (01) ==
LOC: MEDOUTP 09:16
PROVIDERS: PCP Family Medicine; Referring Provider Family Medicine Geriatric Medicine; Visit Provider Family Medicine Geriatric Medicine
DX: D64.9 Anemia, unspecified (principal)
CPT/HCPCS: 36415; 36430; 86850; 86900; 86901; 86920; 86922; J7040; P9016; A4216; J1940

== ENCOUNTER 2022-02-12 16:15 | Outpatient (CLI) | payer MEDICARE, OTHER, SELFPAY ==
--- NOTE | 2022-02-12 16:20 | RAD_ITS ---
STUDY: X-RAY - PELVIS AND RIGHT HIP REASON FOR EXAM: Female, 71 years old. SPRAIN OF OTHER SPECIFIED PARTS OF RIGHT KNEE TECHNIQUE: 2 views of the pelvis and hip. COMPARISON: None. FINDINGS: There is a non-specific bowel gas pattern. Normal visualized soft tissue structures. External device seen between the upper thighs. Severe degenerative changes of the left hip with uncovering of the lateral femoral head. Degenerative changes of the lumbar spine. Normal bilateral iliac wings, sacroiliac joints and visualized sacrum. Normal bilateral superior and inferior pubic rami. Normal pubic symphysis. Normal bilateral ischial tuberosities. Normal visualized femoral head. There is osteoarthritic spur formation of the acetabular rim. There is mild articular joint space narrowing of the hip. RAD/HIP, UNI W/ Pelvis 2-3 Views IMPRESSION: 1. Mild degenerative changes of the right hip. 2. Severe degenerative changes of the left hip. Electronically Signed: Beau Jacome MD ([place]) at 7:41 EDT Reading Location ID and State: / [place] , Service support ,
--- NOTE | 2022-02-12 17:10 | RAD_ITS ---
STUDY: X-RAY - RIGHT FEMUR REASON FOR STUDY: Female, 71 years old. SPRAIN OF OTHER SPECIFIED PARTS OF RIGHT KNEE TECHNIQUE: 2 view(s) of the femur. COMPARISON: None. FINDINGS: There is diffuse demineralization of the femur. Normal visualized soft tissue structure. RAD/Femur Min 2 Views IMPRESSION: No fracture or destructive bony process. Electronically Signed: Beau Jacome MD ([place]) at 9:09 EDT ,
== END 2022-02-12 23:59 | disposition home or self-care (01) ==
PROVIDERS: PCP Family Medicine; Referring Provider Orthopaedic Surgery; Visit Provider Orthopaedic Surgery
DX: S83.8X1D Sprain of other specified parts of right knee, subsequent encounter (principal)
CPT/HCPCS: 36415; 36430; 73502; 73552; 86850; 86900; 86901; 86920; 86922; J7040; P9016; A4216; J1940

== ENCOUNTER → 2022-03-05 | Outpatient (CLI) | payer MEDICARE, OTHER, SELFPAY ==
--- NOTE | 2022-03-05 22:18 | CT_ITS ---
EXAM: CT LEFT LOWER EXTREMITY WITHOUT INTRAVENOUS CONTRAST CLINICAL INDICATION: Proximal tibia transverse fracture TECHNIQUE: Helically acquired images were obtained of the left lower extremity without intravenous contrast. 2-D reformats were performed by the technologist. This CT exam was performed using one or more of the following dose reduction techniques: automated exposure control, adjustment of the mA and/or kV according to patient size, and/or use of iterative reconstruction technique. This report was created using [employer] report generation technology. RADIATION DOSE: CTDIvol = 15.35 mGy, DLP = 618.57 mGy-cm COMPARISON: CTA with runoff December 30, 2021, there was no proximal right tibial fracture at that time.. Also 3 views of the knee February 01, 2022 showing acute proximal tibial fracture, also subtle fracture of the adjacent fibula neck. FINDINGS: BONES/JOINTS: There is predominantly oblique-transverse fracture of the proximal former metadiaphyseal junction of the left tibia with underlying bone demineralization, and bone resorption, roughly 9 mm lucent defect in the major fracture line, with small radiating adjacent cortical fracture lines and fragments. Mild early callus formation of the fracture at the fibular neck. No obvious underlying pathologic destructive bone lesion other than advanced demineralization. Preservation of the joint space. SOFT TISSUES: Unremarkable. No soft tissue swelling or gas. No radiopaque foreign body. CT/Extremity Lower without Contra IMPRESSION: Subacute fracture of the proximal tibia with some bone resorption, with apparent widening of the lucent fracture line, and prominent underlying demineralization of bone but no obvious pathologic underlying lesion. Mild early callus formation involving the fracture of the fibular neck. Electronically Signed: Lyndsay Eason MD at 0:32 EDT ,
== END | disposition home or self-care (01) ==
LOC: CT 22:16
PROVIDERS: PCP Family Medicine; Visit Provider Family Medicine Geriatric Medicine
DX: S82.102A Unspecified fracture of upper end of left tibia, initial encounter for closed fracture (principal)
CPT/HCPCS: 73700

== ENCOUNTER → 2022-03-06 | Outpatient (CLI) | payer MEDICARE, OTHER, SELFPAY ==
--- NOTE | 2022-03-06 | IMM_PTH ---
PATIENT: LUCIE DUPONT LOC: [facility]#:[id number] AGE/SX: 71/F ROOM: RE03/06/[address]: Dr. Dustin Sandoval MD : 1950 BED: DIS: 03/06/2022 SPEC #: [id number] RECD: 03/06/22 12:47 STATUS: JACKELYN REQ #: [id number] ISAMAR: 03/06/22 00:[address]: Dustin Sandoval Chi DEPT: IMMUNOHISTOCHEMISTRY RECD BY: Loida Randle ENTERED: 03/10/22 12:48 SP TYPE: IMMUNO OTHR DR: Dr. Boo Cotton MD Tissues: THORACIC FLUID Procedures: Gamal Ret (add) CK20 (add) CK5-6 (add) CK7 (add) MACRO (add) P53 (add) Vimentin (add) Pankeratin (initial) P40 (add) PHYSICIAN & INSTITUTION [place] [id number] SPECIMEN INFORMATION: Tissue Source: Ultrasound Guided Thoracentesis Clinical Info: Pleural Effusion Specimen Number: [id number] CPT code: 54860, 01176 x8 METHODOLOGY: Deparaffinized sections of prefer/formalin-fixed tissue or PAP/DQ stained slides are incubated with monoclonal/polyclonal antibodies/oligonucleotide probes. Localization is made via biotin free immunoperoxidase method. Appropriate controls are performed and reacted as expected. Results on target cell population are indicated in the following table: RESULTS: ANTIBODY / CLONE RESULT AE1-3 (AE1/AE3/PCK26) positive CK7 (OV-TL12/30) positive CK20 (KS20.8) negative Vimentin (V9) positive Macro (HAM-56) positive CALRET (polyclonal) positive CK5-6 (D5 & 1684) positive P40 (BC28) negative P53 (DO-7) negative These tests were developed and their performance characteristics determined by [facility]. They may not have been cleared or approved by the U.S. Food and Drug Administration. The FDA has determined that such clearance or approval is not necessary. The above immunohistochemical/dualISH markers are ordered and reviewed by the Pathologist. INTERPRETATION: Thoracentesis fluid for cytology (cell block): No evidence of malignancy. AM:iram 03/11/2022
--- NOTE | 2022-03-06 09:53 | US_ITS ---
PROCEDURE: ULTRASOUND GUIDED THORACENTESIS. DATE: 03/06/2022. INDICATION: Female, 71 years old. Left pleural effusion. PHYSICIAN: Juice Kee M.D. PROCEDURE: The risks, benefits, and alternatives to the procedure were explained to the patient. The specific risks of bleeding, infection, and pneumothorax requiring chest tube insertion were discussed and accepted. Written informed consent was obtained. Ultrasonographic evaluation of the left lower pleural space was carried out. An adequate pocket was identified. The patient was placed in the sitting, upright position. The overlying skin was prepped and draped in sterile fashion. 1% lidocaine was administered subcutaneously for local anesthesia. Under ultrasound guidance, a 5 Kazakh thoracentesis needle/catheter system was advanced into the left posterior lower pleural fluid collection. Approximately 950 mL of ] color fluid was drained. The catheter was removed, and a sterile dressing was applied. A specimen was collected and sent to the laboratory for analysis, as requested by the referring clinician. The patient tolerated the procedure well. A chest x-ray was ordered. US/Thoracentesis W US IMPRESSION: Ultrasound-guided left thoracentesis. Electronically Signed: Juice Kee MD at 15:00 EDT ,
[2022-03-06 14:10] VITALS: BP 161/67; BP 164/68; BP 167/67; BP 175/67; PULSE 104; PULSE 108; PULSE 110; PULSE 114; RESP 16; RESP 18; RESP 20; TEMP 37.1; O2SAT 95; O2SAT 98; O2SAT 99
[2022-03-06] MEDS: Lidocaine 2% (20 ml mdv) 20 ML Vial INFILT (14:15)
--- NOTE | 2022-03-06 14:18 | FLU_PTH ---
PATIENT: LUCIE DUPONT LOC: [facility]#:[id number] AGE/SX: 71/F ROOM: RE03/06/[address]: Dr. Dustin Sandoval MD : 1950 BED: DIS: 03/06/2022 SPEC #: [id number] RECD: 03/06/22 14:30 STATUS: JACKELYN RETerry #: [id number] ISAMAR: 03/06/22 14:[address]: Dustin Sandoval Chi DEPT: CYTOLOGY RECD BY: Loida Randle ENTERED: 03/09/22 08:17 SP TYPE: Fluid OTHR DR: Dr. Boo Cotton MD Tissues: Pleural fluid, NOS Procedures: Special Stain Group II Surgery Specimen Level IV Cytospin Fluid HEADER OPERATION: US Guided thoracentesis PRE-OP DIAGNOSIS: Pleural Effusion TISSUE SUBMITTED: Thoracentesis fluid for cytology DIAGNOSIS CYTOLOGY Thoracentesis fluid for cytology (cytospin and cell block): Negative for malignant cells. See comment. AM:iram 03/10/2022 COMMENT Immunohistochemistry ([id number]) supports the above diagnosis. Case has been reviewed in consultation with Dr. Mcleod who concurs with the above diagnosis. IDC:SJ CYTOLOGY STUDY Slides are reviewed. CYTOLOGY GROSS Received is 90 ml of light yellow cloudy fluid labeled with the patient's name and and designated per the requisition as thoracentesis. Submitted for cytology preparation including cell block. / iram 03/09/2022 TC:5 CPT: 19896, 81204
--- NOTE | 2022-03-06 14:26 | RAD_ITS ---
STUDY: X-RAY CHEST REASON FOR EXAM: Female, 71 years old. Post thoracentesis TECHNIQUE: AP inspiration and expiration views. COMPARISON: Comparison is made with prior study dated 03/05/2022. FINDINGS: The patient is status post left thoracentesis. No evidence of pneumothorax. Mild residual pleural-parenchymal changes are seen at the left lung base. RAD/Chest Insp/Exp 2 View IMPRESSION: Status post left thoracentesis. No evidence of pneumothorax. Mild degree of residual pleural parenchymal changes at the left lung base. Electronically Signed: Juice Kee MD at 14:40 EDT ,
[2022-03-06 14:54] LABS: Body Fluid Mononuclear WBC # 0.204 10^3/uL; Body Fluid Polynuclear WBC # 0.013 10^3/uL; Body Fluid Total Cells Counted 0.255 10^3/ul; White Blood Count/Body Fluid 0.217 10^3/uL
[2022-03-06 15:40] LABS: Appearance/Body Fluid CLEAR; Auto B Fluid Analyzer BKGD Ct COUNTS W/IN LIMITS (W/IN LIMITS); Color/Body Fluid LT YEL; Red Cell Count/Body Fluid 160 /mm3; Source- Body Fluid THORACENTESIS
[2022-03-06 16:04] LABS: Glucose, Body Fluid 102 mg/dL (40-70); LDH,Body Fluid 79 Units/l (Not Establ.); Protein, Body Fluid 1.5 g/dL (Not Establ.)
[2022-03-06 17:06] LABS: Lymphocytes 65 %; Macrophages 14 %; Mesothelial Cells 7 %; Monocytes 6 %; Neutrophil (Segs) 8 %
[2022-03-11 12:46] LABS: Pathologist Comment/Body Fluid Reviewed
== END | disposition home or self-care (01) ==
LOC: US 08:41
PROVIDERS: PCP Family Medicine; Referring Provider Family Medicine Geriatric Medicine; Visit Provider Family Medicine Geriatric Medicine
DX: J90 Pleural effusion, not elsewhere classified (principal)
CPT/HCPCS: 32555; 71046; 82945; 83615; 84157; 88108; 88305; 88313; 88341; 88342; 89050